=== PATIENT | female | born 1950 | race African-American/Black ===

== ENCOUNTER 2016-08-15 12:22 | Inpatient (IN) | payer MEDICARE, MEDICAID ==
[~2016-08-15] VITALS: Ht 167.6 cm; Wt 74.4 kg
[~2016-08-15 12:22] MED LIST: ACETAMINOPHEN-1 EAC1 ORAL; ADVAIR 100-501 EACH INH; ALBUTEROL2.5 MG/3 M INH; AMBIEN10 MG ORAL; ASACOL HD800 MG ORAL; ASPIR-LOW81 MG ORAL; ASPIRIN81 MG ORAL; ATIVAN1 MG PO; B-12500 MC1 PO; BENADRYL25 M3 PO; BUPROPION HCL100 MG ORAL; COLACE100 MG ORAL; CYMBALTA30 MG ORAL; CYMBALTA60 MG ORAL; DILAUDID4 MG ORAL; FLEET ENEMA133 ML RECTAL; FUROSEMIDE40 MG ORAL; IBUPROFEN IB200 MG PO; IBUPROFEN600 MG ORAL; INHALER; KEPPRA500 MG ORAL; LASIX20 M1 ORAL; LEVAQUIN250 M1 ORAL; LEVAQUIN500 MG ORAL; LEVETIRACETAM500 MG ORAL; LEVOFLOXAC500 MG/20 PO; MAGNESIUM CITR296 M1 PO; MELOXICAM15 MG PO; METRONIDAZOLE500 MG ORAL; MIDODRINE HCL5 MG ORAL; MIRALAX17 GM PO; MIRTAZAPINE15 M3 ORAL; MIRTAZAPINE15 MG ORAL; MOBIC7.5 MG ORAL; MORPHINE PUMP; MYLANTA II30 ML ORAL; NAPROXEN375 M2 ORAL; NEXIUM40 M1 PO; NORCO 10-325 T1 EACH PO; NORCO 10/3251 EA ORAL; OMEPRAZOLE20 M2 ORAL; ONDANSETRON ODT4 MG PO; OYSCO-500500 M1 PO; PENTASA500 MG ORAL; PHENERGAN25 M1 ORAL; PROTONIX40 MG ORAL; QUETIAPINE FUM200 MG ORAL; RANITIDINE HCL150 MG ORAL; REGLAN10 MG ORAL; REMERON15 MG ORAL; RESTORIL15 MG ORAL; RISPERDAL0.5 MG ORAL; SINGULAIR10 MG ORAL; TOPIRAMATE25 MG ORAL; TRAZODONE HCL100 MG ORAL; TUMS500 MG ORAL; TYLENOL650 MG/20. ORAL; VITAMIN C500 M1 ORAL; VITAMIN D400 INTLU ORAL; VITAMIN E400 INTLU ORAL; WELLBUTRIN SR100 MG ORAL; ZANTAC150 MG ORAL; ZOFRAN4 M3 ORAL; ZOFRAN4 M3 PO; [UNRECOGNIZED DRUG - OTHER] ORAL; [UNRECOGNIZED DRUG - REMARK]
[2016-08-15] MEDS ORDERED: Morphine Sulfate 4mg/ml Inj IVP ONE ×2 (13:00→14:45)
--- NOTE | 2016-08-15 13:15 | Emergency Room Report ---
History of Present Illness General Chief Complaint: Abdominal Pain Source: Patient Present Illness HPI Patient presents with complaints of diffuse abdominal pain Left lower along with left upper quadrant patient has complaints of diarrhea Along with vomiting as well Patient has had fairly extensive past medical history including small bowel [place] in with 2 different surgeries patient has also had Crohn's Given the increased diarrhea and the pain she was concerning came to the ER Patient reports being on Bactrim recently And has 2 days left denies any fevers or chills denies any chest pain or shortness of breath abdominal pain is 01/02 Patient's pain management doctor is Dr. reyes Allergies: Coded Allergies: No Known Allergies (Verified , 05/21/06) Patient History Past Medical History: see triage record Pertinent Family History: none Reviewed Nursing Documentation: PMH: Agreed, PSxH: Agreed Nursing Documentation-PMH Past Medical History: No History, Except For Hx Cardiac Problems: Yes - [place] 2015 Hx Hypertension: No Hx Pacemaker: No Hx Asthma: Yes Hx COPD: Yes Hx Diabetes: No Hx Cancer: No Hx Gastrointestinal Problems: Yes - Chrohns Hx Dialysis: No Hx Neurological Problems: Yes Hx Cerebrovascular Accident: Yes - 2004 Hx Seizures: Yes Hx Epilepsy: Yes Hx Vertigo: Yes Hx Dizziness: Yes Hx Syncope: Yes Hx Headaches: Yes Hx Weakness: Yes Hx Fatigue: Yes Review of Systems All Other Systems: negative except mentioned in HPI Physical Exam Vital Signs Date Time Temp Pulse Resp B/P Pulse Ox O2 Delivery O2 Flow Rate FiO2 08/15/16 12:26 99.3 77 14 86/50 98 Room Air Sp02 EP Interpretation: reviewed, normal General Appearance: well appearing, no apparent distress Head: normocephalic, atraumatic Eyes: bilateral eye EOMI, bilateral eye PERRL ENT: hearing grossly normal, normal pharynx, TMs + canals normal, uvula midline Neck: full range of motion, supple, no meningismus, no bony tend Respiratory: lungs clear, normal breath sounds, no rhonchi, no respiratory distress, no retraction, no accessory muscle use Cardiovascular #1: normal peripheral pulses, regular rate, rhythm, no edema, no gallop, no JVD, no murmur Gastrointestinal: normal bowel sounds, soft, no mass, no organomegaly, non- distended, no guarding, no hernia, no pulsatile mass, no rebound, tenderness - Diffusely, implant in the left lower abdomen, other - Evidence of multiple previous abdominal surgeries Genitourinary: no CVA tenderness Musculoskeletal: normal inspection Neurologic: oriented x3, responsive, rod greaser III-XII nml as tested, motor strength/ tone normal, sensory intact Psychiatric: mood/affect normal Skin: normal color, no rash, warm/dry, palpation normal Lymphatic: normal inspection, no adenopathy Medical Decision Making Diagnostic Impression: Primary Impression: Colitis Additional Impressions: Leukocytosis UTI (urinary tract infection) Abdominal pain Crohn's disease ER Course Given the patient's presentation multiple differentials are considered Patient's complex requiring blood work and imaging Patient's CAT scan shows some possible evidence of ileus no obvious instruction blood work does show bladder infection with elevated white blood cell count patient also has a history of Crohn's and could have signs of exacerbation At this time pain is improved and patient admitted for further inpatient care Labs Test 08/15/16 13:18 08/15/16 13:30 White Blood Count 17.1 K/UL (4.8-10.8) Red Blood Count 5.39 M/UL (4.20-5.40) Hemoglobin 14.3 G/DL (12.0-16.0) Hematocrit 47.6 % (37.0-47.0) Mean Corpuscular Volume 88 FL (80-99) Mean Corpuscular Hemoglobin 26.6 PG (27.0-31.0) Mean Corpuscular Hemoglobin Concent 30.0 G/DL (32.0-36.0) Red Cell Distribution Width 17.6 % (11.6-14.8) Platelet Count 372 K/UL (150-450) Mean Platelet Volume 6.5 FL (6.5-10.1) Neutrophils (%) (Auto) 78.0 % (45.0-75.0) Lymphocytes (%) (Auto) 14.0 % (20.0-45.0) Monocytes (%) (Auto) 6.1 % (1.0-10.0) Eosinophils (%) (Auto) 1.0 % (0.0-3.0) Basophils (%) (Auto) 0.9 % (0.0-2.0) Sodium Level 135 mEQ/L (135-145) Potassium Level 4.5 mEQ/L (3.4-4.9) Chloride Level 99 mEQ/L (98-107) Carbon Dioxide Level 15 mEQ/L (20-30) Anion Gap 21 (5-15) Blood Urea Nitrogen 17 mg/dL (7-23) Creatinine 1.5 mg/dL (0.5-0.9) Estimat Glomerular Filtration Rate 42.5 mL/min (>60) Glucose Level 111 mg/dL (74-106) Calcium Level 10.6 mg/dL (8.6-10.2) Total Bilirubin < 0.2 mg/dL (0.0-1.2) Aspartate Amino Transf (AST/SGOT) 19 U/L (5-40) Alanine Aminotransferase (ALT/SGPT) 9 U/L (3-33) Alkaline Phosphatase 105 U/L (35-104) Total Creatine Kinase 44 U/L (26-140) Creatine Kinase MB 2.9 ng/mL (< 3.8) Creatine Kinase MB Relative Index 6.5 Troponin I < 0.30 ng/mL (<=0.30) Total Protein 10.4 g/dL (6.6-8.7) Albumin 3.9 g/dL (3.5-5.2) Globulin 6.5 g/dL Albumin/Globulin Ratio 0.6 (1.0-2.7) Lipase 18 U/L (< 60) Prothrombin Time 11.2 SEC (9.30-11.50) Prothromb Time International Ratio 1.1 (0.9-1.1) Activated Partial Thromboplast Time 29 SEC (23-33) Urine Color Haylee Urine Appearance Slightly cloudy Urine pH 6 (4.5-8.0) Urine Specific [place] 1.020 (1.005-1.035) Urine Protein 2+ (NEGATIVE) Urine Glucose (UA) Negative (NEGATIVE) Urine Ketones Negative (NEGATIVE) Urine Occult Blood 3+ (NEGATIVE) Urine Nitrite Negative (NEGATIVE) Urine Bilirubin Negative (NEGATIVE) Urine Ictotest Negative Urine Urobilinogen Normal MG/DL (0.0-1.0) Urine Leukocyte Esterase 2+ (NEGATIVE) Urine RBC 5-10 /HPF (0 - 2) Urine WBC 10-15 /HPF (0 - 2) Urine Squamous Epithelial Cells Many /LPF (NONE/OCC) Urine Bacteria Many /HPF (NONE) Rhythm Strip Diag. Results EP Interpretation: yes Rate: 88 Rhythm: NSR, no PVC's, no ectopy Chest X-Ray Diagnostic Results EP Interpretation: Yes Findings: no consolidation, no effusion, no pneumothorax, other - Interstitial disease Number of Views: 1 CT/MRI/US Diagnostic Results CT/MRI/US Diagnostic Results : Impression CT abdomen pelvis:Impression: Postsurgical changes with mildly dilated fluid-filled small bowel but no abruption transition identified. Moderate fecal retention and gas in the remaining colon. Ileus could have this appearance with partial obstruction not completely excluded. Clinical correlation/followup recommended. Focal thickening versus underdistention within the distal stomach series 3 image 32. Further evaluation with upper GI or endoscopy recommended as indicated. Absent uterus. Postsurgical changes of anterior abdominal wall mesh. Interstitial opacities of the lung bases. Other findings as above. Last Vital Signs Date Time Temp Pulse Resp B/P Pulse Ox O2 Delivery O2 Flow Rate FiO2 08/15/16 12:26 99.3 77 14 86/50 98 Room Air Status: improved Disposition: ADMITTED INPATIENT Condition: Serious Referrals: BAYRON BENEDICT (PCP) CARLOS ALBERTO CARCAMO D.O. Aug 15, 2016 13:15
[2016-08-15 13:44] LABS: BASOPHILS % (AUTO) 0.9 % (0.0-2.0); MEAN CORPUSCULAR HEMOGLOBIN 26.6 PG (27.0-31.0); MEAN CORPUSCULAR VOLUME 88 FL (80-99); MEAN PLATELET VOLUME 6.5 FL (6.5-10.1); MONOCYTES % (AUTO) 6.1 % (1.0-10.0); PLATELET COUNT 372 K/UL (150-450); RED BLOOD COUNT 5.39 M/UL (4.20-5.40); RED CELL DISTRIBUTION WIDTH 17.6 % (11.6-14.8); WHITE BLOOD COUNT 17.1 K/UL (4.8-10.8)
[2016-08-15 13:47] VITALS: BP 110/61
[2016-08-15 13:51] LABS: APPEARANCE,URINE SLIGHTLY CLOUDY; KETONES,URINE NEGATIVE (NEGATIVE); LEUKOCYTE ESTERASE ,URINE 2+ (NEGATIVE); NITRITE,URINE NEGATIVE (NEGATIVE); PH,URINE 6 (4.5-8.0); PROTEIN,URINE 2+ (NEGATIVE); UROBILINOGEN,URINE NORMAL MG/DL (0.0-1.0)
[2016-08-15 13:54] LABS: SQUAMOUS EPITHELIAL CELL,UR MANY /LPF (NONE/OCC)
[2016-08-15 13:55] LABS: BACTERIA,URINE MANY /HPF; ICTOTEST NEGATIVE
[2016-08-15 14:06] LABS: TROPONIN I < 0.30 ng/mL (<=0.30)
[2016-08-15 14:06] LABS: INR 1.1 (0.9-1.1); PROTHROMBIN TIME 11.2 SEC (9.30-11.50)
[2016-08-15 14:09] LABS: ALANINE AMINOTRANSFERASE 9 U/L (3-33); ALBUMIN/GLOBULIN RATIO 0.6 (1.0-2.7); ANION GAP 21 (5-15); ASPARTATE AMINO TRANSFERASE 19 U/L (5-40); CALCIUM 10.6 mg/dL (8.6-10.2); CARBON DIOXIDE 15 mEQ/L (20-30); CHLORIDE 99 mEQ/L (98-107); CREATININE 1.5 mg/dL (0.5-0.9); GLOMERULAR FILTRATION RATE 42.5 mL/min (>60); HEMOLYSIS 49; LIPASE 18 U/L (< 60); POTASSIUM 4.5 mEQ/L (3.4-4.9); SODIUM 135 mEQ/L (135-145); TOTAL PROTEIN 10.4 g/dL (6.6-8.7)
[2016-08-15] MEDS ORDERED: metroNIDAZOLE 500mg 100 ML IVPB ONE (14:15)
[2016-08-15 14:19] LABS: CKMB 2.9 ng/mL (< 3.8)
[2016-08-15] MEDS ORDERED: Mylanta II UD 30ml ORAL PRN (14:45)
[2016-08-15] MEDS ORDERED: Nitroglycerin Subl 0.4mg tab (Bottle Of 25) SL PRN (14:45)
[2016-08-15] MEDS ORDERED: Miralax 17gm pkt ORAL PRN (14:45)
[2016-08-15 16:00] VITALS: BP 110/63
--- NOTE | 2016-08-15 16:29 | Infectious Diseases Prog Note ---
Assessment/Plan Problems: (1) UTI (urinary tract infection) Assessment & Plan: will continue zosyn for now and send urine culture (2) Sepsis Assessment & Plan: will send blood culture and continue zosyn for now (3) Abdominal pain Assessment & Plan: continue pain management as per primary, check CT abdomen (4) Crohn's disease Assessment & Plan: consult GI, continue meds (5) Nausea and vomiting Assessment & Plan: continue supportive care (6) Diarrhea Assessment & Plan: will send stool for C diff and culture Subjective Allergies: Coded Allergies: No Known Allergies (Verified , 05/21/06) Objective Vital Signs Last 24 Hour Vital Signs Date Time Temp Pulse Resp B/P Pulse Ox O2 Delivery O2 Flow Rate FiO2 08/15/16 15:15 99.3 95 16 110/61 98 Room Air 08/15/16 15:14 99.3 08/15/16 14:00 99.3 08/15/16 13:47 99.3 95 16 110/61 98 Room Air 08/15/16 12:26 99.3 77 14 86/50 98 Room Air Height (Feet): 5 Height (Inches): 6.00 Weight (Pounds): 164 Laboratory Tests Test 08/15/16 13:18 08/15/16 13:30 White Blood Count 17.1 K/UL (4.8-10.8) H Red Blood Count 5.39 M/UL (4.20-5.40) Hemoglobin 14.3 G/DL (12.0-16.0) Hematocrit 47.6 % (37.0-47.0) H Mean Corpuscular Volume 88 FL (80-99) Mean Corpuscular Hemoglobin 26.6 PG (27.0-31.0) L Mean Corpuscular Hemoglobin Concent 30.0 G/DL (32.0-36.0) L Red Cell Distribution Width 17.6 % (11.6-14.8) H Platelet Count 372 K/UL (150-450) Mean Platelet Volume 6.5 FL (6.5-10.1) Neutrophils (%) (Auto) 78.0 % (45.0-75.0) H Lymphocytes (%) (Auto) 14.0 % (20.0-45.0) L Monocytes (%) (Auto) 6.1 % (1.0-10.0) Eosinophils (%) (Auto) 1.0 % (0.0-3.0) Basophils (%) (Auto) 0.9 % (0.0-2.0) Sodium Level 135 mEQ/L (135-145) Potassium Level 4.5 mEQ/L (3.4-4.9) Chloride Level 99 mEQ/L (98-107) Carbon Dioxide Level 15 mEQ/L (20-30) L Anion Gap 21 (5-15) H Blood Urea Nitrogen 17 mg/dL (7-23) Creatinine 1.5 mg/dL (0.5-0.9) H Estimat Glomerular Filtration Rate 42.5 mL/min (>60) Glucose Level 111 mg/dL (74-106) H Calcium Level 10.6 mg/dL (8.6-10.2) H Total Bilirubin < 0.2 mg/dL (0.0-1.2) Aspartate Amino Transf (AST/SGOT) 19 U/L (5-40) Alanine Aminotransferase (ALT/SGPT) 9 U/L (3-33) Alkaline Phosphatase 105 U/L (35-104) H Total Creatine Kinase 44 U/L (26-140) Creatine Kinase MB 2.9 ng/mL (< 3.8) Creatine Kinase MB Relative Index 6.5 Troponin I < 0.30 ng/mL (<=0.30) Total Protein 10.4 g/dL (6.6-8.7) H Albumin 3.9 g/dL (3.5-5.2) Globulin 6.5 g/dL Albumin/Globulin Ratio 0.6 (1.0-2.7) L Lipase 18 U/L (< 60) Prothrombin Time 11.2 SEC (9.30-11.50) Prothromb Time International Ratio 1.1 (0.9-1.1) Activated Partial Thromboplast Time 29 SEC (23-33) Urine Color Haylee Urine Appearance Slightly cloudy Urine pH 6 (4.5-8.0) Urine Specific [place] 1.020 (1.005-1.035) Urine Protein 2+ (NEGATIVE) H Urine Glucose (UA) Negative (NEGATIVE) Urine Ketones Negative (NEGATIVE) Urine Occult Blood 3+ (NEGATIVE) H Urine Nitrite Negative (NEGATIVE) Urine Bilirubin Negative (NEGATIVE) Urine Ictotest Negative Urine Urobilinogen Normal MG/DL (0.0-1.0) Urine Leukocyte Esterase 2+ (NEGATIVE) H Urine RBC 5-10 /HPF (0 - 2) H Urine WBC 10-15 /HPF (0 - 2) H Urine Squamous Epithelial Cells Many /LPF (NONE/OCC) H Urine Bacteria Many /HPF (NONE) H Current Medications Medications (Trade) Dose Ordered Sig/Vaibhav Route PRN Reason Start Time Stop Time Status Last Admin Dose Admin Acetaminophen (Tylenol) 650 mg Q4H PRN ORAL fever 08/15/16 14:45 09/14/16 14:44 Al Hydroxide/Mg Hydroxide (Mylanta II) 30 ml Q6H PRN ORAL dyspepsia 08/15/16 14:45 09/14/16 14:44 Dextrose STAT PRN IV Hypoglycemia 08/15/16 14:45 09/14/16 14:44 Dextrose/Sodium Chloride (D5 0.45% NS) 1,000 ml @ 75 mls/hr [id number] IV 08/15/16 15:00 09/14/16 14:59 Diphenhydramine HCl (Benadryl) 25 mg Q6H PRN ORAL Itching/Pruritis 08/15/16 14:45 09/14/16 14:44 Duloxetine HCl (Cymbalta) 60 mg DAILY ORAL 08/16/16 09:00 09/15/16 08:59 Heparin Sodium (Porcine) (Heparin 5000 units/ml) 5,000 units EVERY 12 HOURS SUBQ 08/15/16 21:00 09/14/16 20:59 Levetiracetam (Keppra) 1,500 mg TWICE A DAY ORAL 08/15/16 18:00 09/14/16 17:59 Mirtazapine (Remeron) 30 mg BEDTIME ORAL 08/15/16 21:00 09/14/16 20:59 Morphine Sulfate (Morphine Sulfate) 2 mg Q4H PRN IVP severe Pain (Pain Scale 7-10) 08/15/16 14:45 08/22/16 14:44 Nitroglycerin (Ntg) 0.4 mg Q5M X 3 DOSES PRN SL Prn Chest Pain 08/15/16 14:45 09/14/16 14:44 Ondansetron HCl (Zofran) 4 mg Q6H PRN IVP Nausea & Vomiting 08/15/16 14:45 09/14/16 14:44 Piperacillin Sod/ Tazobactam Sod/ Sodium Chloride (Zosyn/Sodium Chloride) 110 ml @ 27.5 mls/hr EVERY 8 HOURS IVPB 08/15/16 22:00 08/22/16 21:59 Polyethylene Glycol (Miralax) 17 gm HSPRN PRN ORAL Constipation 08/15/16 14:45 09/14/16 14:44 Quetiapine Fumarate (SEROquel) 200 mg DAILY ORAL 08/16/16 09:00 09/15/16 08:59 Temazepam (Restoril) 15 mg HSPRN PRN ORAL Insomnia 08/15/16 14:45 08/22/16 14:44 Topiramate 25 mg 25 mg TWICE A DAY ORAL 08/15/16 18:00 09/14/16 17:59 Darrel Golden M.D. Aug 15, 2016 16:29
[2016-08-15] MEDS: Morphine Sulfate 2mg/ml Inj IVP PRN (16:54)
[2016-08-15] MEDS: D5 1/2NS 1,000 ML IV SCH (16:57)
--- NOTE | 2016-08-15 17:25 | Consultation ---
History of Present Illness General Date patient seen: Aug 15, 2016 Time patient seen: 17:30 Chief Complaint: Abdominal Pain Referring physician: Jayro Reason for Consultation: internal medicine, hx of asthma Present Illness HPI 65 y/old female presented to [facility] with complaints of abdominal pain for few days pain was getting progressively worse, not radiating, increased abdomen, diarrhea earlier today, foul smelling , no blood in Stool denies n/v/, denies fevers, chills patient with hx of Crohn disease in ED found that patient has leukocytosis, CT A/P completed, results pending patient was admitted for further management Allergies: Coded Allergies: No Known Allergies (Verified , 05/21/06) Medication History Scheduled Duloxetine Hcl* (Cymbalta*), 60 MG ORAL DAILY, (Reported) Levetiracetam* (Levetiracetam*), 1,500 MG ORAL TWICE A DAY, (Reported) Levofloxacin* (Levaquin*), 250 MG ORAL DAILY, (Reported) Mesalamine (Pentasa), 1,000 MG ORAL TID, (Reported) Metronidazole* (Flagyl*), 500 MG ORAL EVERY 8 HOURS, (Reported) Mirtazapine* (Mirtazapine*), 30 MG ORAL BEDTIME, (Reported) Quetiapine Fumarate* (Seroquel*), 200 MG ORAL DAILY, (Reported) Ranitidine Hcl* (Zantac*), 150 MG ORAL TWICE A DAY, (Reported) Topiramate* (Topamax*), 25 MG ORAL TWICE A DAY, (Reported) Scheduled PRN Albuterol Sulfate* (Albuterol Sulfate Hhn*), 3 ML INH Q4H PRN for Shortness of Breath, (Reported) Temazepam* (Restoril*), 15 MG ORAL BEDTIME PRN for Insomnia, (Reported) Miscellaneous Medications Diphenhydramine HCl (Benadryl), 25 MG PO, (Reported) Patient History History Provided By: Patient Healthcare decision maker Resuscitation status Advanced Directive on File Past Medical/Surgical History Past Medical/Surgical History: (1) Asthma (2) Acute encephalopathy (3) Hx SBO (4) Anemia (5) Crohns disease (6) Chronic pain syndrome (7) Abdominal pain (8) Seizure (9) Radiculopathy of lumbar region (10) Chronic pancreatitis Review of Systems Constitutional: Reports: weakness Eye: Reports: no symptoms ENT: Reports: no symptoms Respiratory: Reports: other - asthma, shortness of breath Cardiovascular: Reports: see HPI Gastrointestinal: Reports: see HPI Genitourinary: Reports: no symptoms Musculoskeletal: Reports: back pain, muscle stiffness Skin: Reports: no symptoms Psychiatric: Reports: depressed feelings Neurological: Reports: other - hx of CVA Endocrine: Reports: no symptoms Hematologic/Lymphatic: Reports: anemia Physical Exam General Appearance: WD/WN, no apparent distress, alert Lines, tubes and drains: peripheral HEENT: normocephalic, mucous membranes moist Neck: normal alignment, supple Respiratory/Chest: chest wall non-tender, lungs clear - with moderate air entry , no respiratory distress, no accessory muscle use Cardiovascular/Chest: normal peripheral pulses, normal rate, regular rhythm, no JVD Abdomen: normal bowel sounds, soft - mild diffused tenderness, no rebound, noguarding, + distended Extremities: normal range of motion Neurologic: no motor/sensory deficits, alert, oriented x 3 Musculoskeletal: normal muscle bulk Last 24 Hour Vital Signs Date Time Temp Pulse Resp B/P Pulse Ox O2 Delivery O2 Flow Rate FiO2 08/15/16 15:15 99.3 95 16 110/61 98 Room Air 08/15/16 15:14 99.3 08/15/16 14:00 99.3 08/15/16 13:47 99.3 95 16 110/61 98 Room Air 08/15/16 12:26 99.3 77 14 86/50 98 Room Air Laboratory Tests Test 08/15/16 13:18 08/15/16 13:30 White Blood Count 17.1 K/UL (4.8-10.8) H Red Blood Count 5.39 M/UL (4.20-5.40) Hemoglobin 14.3 G/DL (12.0-16.0) Hematocrit 47.6 % (37.0-47.0) H Mean Corpuscular Volume 88 FL (80-99) Mean Corpuscular Hemoglobin 26.6 PG (27.0-31.0) L Mean Corpuscular Hemoglobin Concent 30.0 G/DL (32.0-36.0) L Red Cell Distribution Width 17.6 % (11.6-14.8) H Platelet Count 372 K/UL (150-450) Mean Platelet Volume 6.5 FL (6.5-10.1) Neutrophils (%) (Auto) 78.0 % (45.0-75.0) H Lymphocytes (%) (Auto) 14.0 % (20.0-45.0) L Monocytes (%) (Auto) 6.1 % (1.0-10.0) Eosinophils (%) (Auto) 1.0 % (0.0-3.0) Basophils (%) (Auto) 0.9 % (0.0-2.0) Sodium Level 135 mEQ/L (135-145) Potassium Level 4.5 mEQ/L (3.4-4.9) Chloride Level 99 mEQ/L (98-107) Carbon Dioxide Level 15 mEQ/L (20-30) L Anion Gap 21 (5-15) H Blood Urea Nitrogen 17 mg/dL (7-23) Creatinine 1.5 mg/dL (0.5-0.9) H Estimat Glomerular Filtration Rate 42.5 mL/min (>60) Glucose Level 111 mg/dL (74-106) H Calcium Level 10.6 mg/dL (8.6-10.2) H Total Bilirubin < 0.2 mg/dL (0.0-1.2) Aspartate Amino Transf (AST/SGOT) 19 U/L (5-40) Alanine Aminotransferase (ALT/SGPT) 9 U/L (3-33) Alkaline Phosphatase 105 U/L (35-104) H Total Creatine Kinase 44 U/L (26-140) Creatine Kinase MB 2.9 ng/mL (< 3.8) Creatine Kinase MB Relative Index 6.5 Troponin I < 0.30 ng/mL (<=0.30) Total Protein 10.4 g/dL (6.6-8.7) H Albumin 3.9 g/dL (3.5-5.2) Globulin 6.5 g/dL Albumin/Globulin Ratio 0.6 (1.0-2.7) L Lipase 18 U/L (< 60) Prothrombin Time 11.2 SEC (9.30-11.50) Prothromb Time International Ratio 1.1 (0.9-1.1) Activated Partial Thromboplast Time 29 SEC (23-33) Urine Color Haylee Urine Appearance Slightly cloudy Urine pH 6 (4.5-8.0) Urine Specific [place] 1.020 (1.005-1.035) Urine Protein 2+ (NEGATIVE) H Urine Glucose (UA) Negative (NEGATIVE) Urine Ketones Negative (NEGATIVE) Urine Occult Blood 3+ (NEGATIVE) H Urine Nitrite Negative (NEGATIVE) Urine Bilirubin Negative (NEGATIVE) Urine Ictotest Negative Urine Urobilinogen Normal MG/DL (0.0-1.0) Urine Leukocyte Esterase 2+ (NEGATIVE) H Urine RBC 5-10 /HPF (0 - 2) H Urine WBC 10-15 /HPF (0 - 2) H Urine Squamous Epithelial Cells Many /LPF (NONE/OCC) H Urine Bacteria Many /HPF (NONE) H Height (Feet): 5 Height (Inches): 6.00 Weight (Pounds): 164 Medications Current Medications Medications (Trade) Dose Ordered Sig/Vaibhav Route PRN Reason Start Time Stop Time Status Last Admin Dose Admin Acetaminophen (Tylenol) 650 mg Q4H PRN ORAL fever 08/15/16 14:45 09/14/16 14:44 Al Hydroxide/Mg Hydroxide (Mylanta II) 30 ml Q6H PRN ORAL dyspepsia 08/15/16 14:45 09/14/16 14:44 Dextrose STAT PRN IV Hypoglycemia 08/15/16 14:45 09/14/16 14:44 Dextrose/Sodium Chloride (D5 0.45% NS) 1,000 ml @ 75 mls/hr [id number] IV 08/15/16 15:00 09/14/16 14:59 08/15/16 16:57 Diphenhydramine HCl (Benadryl) 25 mg Q6H PRN ORAL Itching/Pruritis 08/15/16 14:45 09/14/16 14:44 Duloxetine HCl (Cymbalta) 60 mg DAILY ORAL 08/16/16 09:00 09/15/16 08:59 Heparin Sodium (Porcine) (Heparin 5000 units/ml) 5,000 units EVERY 12 HOURS SUBQ 08/15/16 21:00 09/14/16 20:59 Levetiracetam (Keppra) 1,500 mg TWICE A DAY ORAL 08/15/16 18:00 09/14/16 17:59 Mirtazapine (Remeron) 30 mg BEDTIME ORAL 08/15/16 21:00 09/14/16 20:59 Morphine Sulfate (Morphine Sulfate) 2 mg Q4H PRN IVP severe Pain (Pain Scale 7-10) 08/15/16 14:45 08/22/16 14:44 08/15/16 16:54 Nitroglycerin (Ntg) 0.4 mg Q5M X 3 DOSES PRN SL Prn Chest Pain 08/15/16 14:45 09/14/16 14:44 Ondansetron HCl (Zofran) 4 mg Q6H PRN IVP Nausea & Vomiting 08/15/16 14:45 09/14/16 14:44 08/15/16 16:54 Piperacillin Sod/ Tazobactam Sod/ Sodium Chloride (Zosyn/Sodium Chloride) 110 ml @ 27.5 mls/hr EVERY 8 HOURS IVPB 08/15/16 22:00 08/22/16 21:59 Polyethylene Glycol (Miralax) 17 gm HSPRN PRN ORAL Constipation 08/15/16 14:45 09/14/16 14:44 Quetiapine Fumarate (SEROquel) 200 mg DAILY ORAL 08/16/16 09:00 09/15/16 08:59 Temazepam (Restoril) 15 mg HSPRN PRN ORAL Insomnia 08/15/16 14:45 08/22/16 14:44 Topiramate 25 mg 25 mg TWICE A DAY ORAL 08/15/16 18:00 09/14/16 17:59 Assessment/Plan Assessment/Plan ASSESSMENT sepsis leukocytosis colitis r/o C dif colitis hx of Crohn disease ? flare chronic pancreatics UTI asthma chronic pain syndrome seizure disorder hx of CVA PLAN OF CARE tele NPO IVF empiric abx fup with CT AP results stool C dif , fup with other cx GI consult as per PMD discretion check amylase, lipase solo management antiemetic prn seizure precautions, continue Keppra O2, HHN prn no evidence of asthma exacerbation DVT prophylaxis case discussed and evaluated by supervising physician Gwendolyn Herbert NP ([place]) Aug 15, 2016 17:25
[2016-08-15] MEDS ORDERED: DuoNeb 0.5-3(2.5)mg/3ml neb HHN PRN (18:30)
[2016-08-15] MEDS: Topiramate 25mg tab ORAL SCH (19:23)
[2016-08-15 20:00] VITALS: BP 119/64
[2016-08-15] MEDS: Heparin 5000 units/ml inj SUBQ SCH (21:00)
[2016-08-15] MEDS: Piperacillin/Tazobactam 3.375 GM in NS 110 ML IVPB SCH (22:08)
[2016-08-16] VITALS (7 sets, daily range): BP systolic 104–150; BP diastolic 66–92
[2016-08-16] MEDS: Morphine Sulfate 2mg/ml Inj IVP PRN ×2 (00:29→04:34)
[2016-08-16] MEDS: D5 1/2NS 1,000 ML IV SCH ×3 (04:20→21:21)
--- NOTE | 2016-08-16 04:57 | Consultation ---
DATE OF CONSULTATION: INFECTIOUS DISEASE CONSULTATION REQUESTING PHYSICIAN: Barber Dial D.O. REASON FOR CONSULTATION: Sepsis, UTI, and colitis. Recommendation for antibiotic therapy. HISTORY OF PRESENT ILLNESS: The patient is a 65-year-old female with complicated surgical history, who had Crohn's disease presented to [facility] with progressive diffuse abdominal pain. It was mainly localized in the left side of her abdomen 10/10, sharp, dull ache radiate to the back at sometimes. Abdominal pain was associated with diarrhea and nonbloody stool. She also had nausea and vomited several times. The patient has multiple surgeries on abdomen in the past. She also had a Crohn disease, unclear whether she is taking medications for it or not. The patient denied any fever or chills. No chest pain. No cough or shortness of breath. No recent travel or sick contacts. In the emergency room, she had fever with 99.3 degrees. Her white count was elevated at 17,000, so was consulted by the primary provider for antibiotics recommendation and further management. REVIEW OF SYSTEMS: A 14-point of system reviewed were all negative apart from the one I mentioned above in my History and Physical. PAST MEDICAL HISTORY: Significant for coronary artery disease status post ME, asthma, COPD, Crohn's disease, CVA, epilepsy, seizure disorder, syncope, headache, and fatigue. PAST SURGICAL HISTORY: She had extensive abdominal surgery in the past, unknown date. ALLERGIES: She has no known drug allergy. MEDICATIONS: She is on Zosyn. For the rest of the medications, please refer to the MAR. FAMILY HISTORY: Negative. Noncontributory. SOCIAL HISTORY: She is a house . Denied using any drugs, tobacco, or alcohol. PHYSICAL EXAMINATION: VITAL SIGNS: Temperature 99.3 degrees, pulse 95, respirations 16, blood pressure 110/61, and saturation 98% on room air. GENERAL: This is a middle-aged female, obese lying in bed, awake, alert, not in distress, complains of abdominal discomfort. HEENT: Normocephalic and atraumatic. Pupils both reactive to light equally. Moist oral mucosa. No exudate or thrush. NECK: Supple. No lymphadenopathy. CARDIOVASCULAR: Regular rate and rhythm. No murmur or gallop. LUNGS: Diminished breathing at the bases. ABDOMEN: Soft and distended. Tender diffusely. No rebound. No organomegaly. No ascites. EXTREMITIES: No edema. No cyanosis. LABORATORY AND DIAGNOSTIC DATA: Showed white count of 17.1, hemoglobin of 14.3, hematocrit of 47.6, and platelet count of 372,000. BUN 17 and creatinine of 1.5. AST of 19 and ALT of 9. Urinalysis showed +2 leukocyte esterase. WBC 10 to [address] and [address] bacteria. Abdominal CT scan results pending at this point. ASSESSMENT AND PLAN: 1. Sepsis suspect due to gastrointestinal source. The patient will be started on Zosyn. We will send the blood culture. 2. Abdominal pain, nausea, and vomiting suspect colitis. Continue antibiotics treatment. IV fluid for hydration. Consult GI. 3. Diarrhea. We will send stool for Clostridium difficile and culture. 4. Urinary tract infection. The patient is already on Zosyn. We will send urine for culture. Darrel Golden M.D. DR: Elli JOB#: [id number] CC:
[2016-08-16] MEDS: Piperacillin/Tazobactam 3.375 GM in NS 110 ML IVPB SCH ×3 (06:05→21:16)
[2016-08-16] MEDS: QUEtiapine 200mg tab ORAL SCH (09:05)
[2016-08-16] MEDS: DULoxetine 30mg cap ORAL SCH (09:05)
[2016-08-16] MEDS: Topiramate 25mg tab ORAL SCH ×2 (09:06→18:06)
[2016-08-16] MEDS: Heparin 5000 units/ml inj SUBQ SCH ×2 (09:10→21:18)
--- NOTE | 2016-08-16 09:58 | Diagnostic Imaging Report ---
Indication: Abdominal pain Technique: CT scan of the abdomen and pelvis utilizing automated exposure control with oral contrast. Axial, sagittal and coronal images were obtained. CT dose: Total DLP 878 mGycm; CTDI vol 17.7 mGy Comparison: 07/17/16 Findings: Evaluation of the solid organs is limited without intravenous contrast material. Interstitial opacities are noted in the lung bases. The adrenal glands, kidneys, spleen and pancreas are grossly unremarkable. No focal hepatic abnormalities are seen. No CT evident gallstones are identified. There is focal thickening versus underdistention of the stomach series 3 image 32. Postsurgical changes are demonstrated of the bowel. Fluid-filled mildly dilated small bowel loops are seen. Moderate stool and air are present in the remaining colon. Anterior abdominal hernia repair is present. Intrathecal pump and leads are present. Degenerative changes of the spine are noted. Atherosclerotic changes are seen. 2 tiny stable nodules are seen in the left upper quadrant each measuring 6 mm. Impression: Postsurgical changes with mildly dilated fluid-filled small bowel but no abruption transition identified. Moderate fecal retention and gas in the remaining colon. Ileus could have this appearance with partial obstruction not completely excluded. Clinical correlation/followup recommended. Focal thickening versus underdistention within the distal stomach series 3 image 32. Further evaluation with upper GI or endoscopy recommended as indicated. Absent uterus. Postsurgical changes of anterior abdominal wall mesh. Interstitial opacities of the lung bases. Other findings as above. The CT scanner at [facility] is accredited by the [employer] and the scans are performed using protocols designed to limit radiation exposure to as low as reasonably achievable to attain images of sufficient resolution adequate for diagnostic evaluation.
--- NOTE | 2016-08-16 10:07 | Diagnostic Imaging Report ---
Indication: Chest pain Technique: XRAY CHEST 1 V Comparison: 07/17/16 Findings: Cardiomediastinal silhouette is stable. There is grossly stable interstitial disease. No consolidation is identified. Osseous structures are stable. Atherosclerotic changes are seen. Impression: Grossly stable interstitial disease. Clinical correlation recommended.
[2016-08-16 12:12] LABS: BASOPHILS % (AUTO) 0.5 % (0.0-2.0); EOSINOPHILS % (AUTO) 0.1 % (0.0-3.0); LYMPHOCYTES % (AUTO) 12.1 % (20.0-45.0); MEAN CORPUSCULAR HEMOGLOBIN 25.7 PG (27.0-31.0); MEAN CORPUSCULAR HGB CONC 29.5 G/DL (32.0-36.0); MEAN CORPUSCULAR VOLUME 87 FL (80-99); MEAN PLATELET VOLUME 6.7 FL (6.5-10.1); MONOCYTES % (AUTO) 7.3 % (1.0-10.0); NEUTROPHILS % (AUTO) 80.1 % (45.0-75.0); PLATELET COUNT 390 K/UL (150-450); RED BLOOD COUNT 5.14 M/UL (4.20-5.40); RED CELL DISTRIBUTION WIDTH 16.7 % (11.6-14.8)
--- NOTE | 2016-08-16 12:14 | Pulmonology Progress Note ---
Assessment/Plan Assessment/Plan ASSESSMENT sepsis leukocytosis colitis r/o C dif colitis ileus possible partial SBO fecal impaction hx of Crohn disease ? flare chronic pancreatitis UTI asthma chronic pain syndrome seizure disorder hx of CVA PLAN OF CARE NPO IVF empiric abx CT AP with moderate fecal retention and gas in the remaining colon. Ileus could have this appearance with partial obstruction not completely excluded. stool C dif , fup with other cx GI consult as per PMD discretion check amylase, lipase - pending solo management antiemetic prn seizure precautions, continue Keppra O2, HHN prn CXR no acute cardiopulmonary disease clinically no evidence of asthma exacerbation DVT prophylaxis case discussed and evaluated by supervising physician CT AP - Subjective Allergies: Coded Allergies: No Known Allergies (Verified , 05/21/06) Subjective afebrile on RA, no sat of respiratory distress labs pending for this am still with abdominal pain, Objective Last 24 Hour Vital Signs Date Time Temp Pulse Resp B/P Pulse Ox O2 Delivery O2 Flow Rate FiO2 08/16/16 12:04 97.7 81 16 104/66 100 Room Air 08/16/16 09:36 98.2 08/16/16 08:32 98.2 92 16 140/92 93 Room Air 08/16/16 07:50 97 20 Room Air 21 08/16/16 04:00 98.2 102 22 134/77 98 Room Air 08/16/16 01:52 97.0 99 20 146/86 Room Air 08/16/16 00:00 92 08/16/16 00:00 98.6 92 18 150/77 96 Room Air 08/15/16 21:43 21 08/15/16 21:42 88 20 96 Room Air 21 08/15/16 21:42 88 20 Room Air 21 08/15/16 20:00 97.6 86 18 119/64 98 08/15/16 20:00 86 08/15/16 16:00 98.8 89 20 110/63 100 Room Air 08/15/16 16:00 92 08/15/16 15:15 99.3 95 16 110/61 98 Room Air 08/15/16 15:14 99.3 08/15/16 14:00 99.3 08/15/16 13:47 99.3 95 16 110/61 98 Room Air 08/15/16 12:26 99.3 77 14 86/50 98 Room Air Intake and Output 08/15/16 08/16/16 19:00 07:00 Intake Total 510 ml 772.5 ml Balance 510 ml 772.5 ml Intake Oral 360 ml 240 ml IV Total 150 ml 532.5 ml # Voids 1 2 Objective General Appearance: WD/WN, no apparent distress, alert Lines, tubes and drains: peripheral HEENT: normocephalic, mucous membranes moist Neck: normal alignment, supple Respiratory/Chest: chest wall non-tender, lungs clear - with moderate air entry , no respiratory distress, no accessory muscle use Cardiovascular/Chest: normal peripheral pulses, normal rate, regular rhythm, no JVD Abdomen: normal bowel sounds, soft - mild diffused tenderness, no rebound, noguarding, + distended Extremities: normal range of motion Neurologic: no motor/sensory deficits, alert, oriented x 3 Musculoskeletal: normal muscle bulk Microbiology Date/Time Source Procedure Growth Status 08/15/16 20:42 Stool Ordered 08/15/16 13:30 Urine,Clean Catch Urine Culture - Preliminary Resulted Laboratory Tests 08/15/16 13:18: White Blood Count 17.1H, Red Blood Count 5.39, Hemoglobin 14.3, Hematocrit 47.6H , Mean Corpuscular Volume 88, Mean Corpuscular Hemoglobin 26.6L, Mean Corpuscular Hemoglobin Concent 30.0L, Red Cell Distribution Width 17.6H, Platelet Count 372, Mean Platelet Volume 6.5, Neutrophils (%) (Auto) 78.0H, Lymphocytes (%) (Auto) 14.0L, Monocytes (%) (Auto) 6.1, Eosinophils (%) (Auto) 1.0, Basophils (%) (Auto) 0.9, Sodium Level 135, Potassium Level 4.5, Chloride Level 99, Carbon Dioxide Level 15L, Anion Gap 21H, Blood Urea Nitrogen 17, Creatinine 1.5H, Estimat Glomerular Filtration Rate 42.5, Glucose Level 111H, Calcium Level 10.6H, Total Bilirubin < 0.2, Aspartate Amino Transf (AST/SGOT) 19 , Alanine Aminotransferase (ALT/SGPT) 9, Alkaline Phosphatase 105H, Total Creatine Kinase 44, Creatine Kinase MB 2.9, Creatine Kinase MB Relative Index 6.5, Troponin I < 0.30, Total Protein 10.4H, Albumin 3.9, Globulin 6.5, Albumin/ Globulin Ratio 0.6L, Lipase 18 08/15/16 13:30: Prothrombin Time 11.2, Prothromb Time International Ratio 1.1, Activated Partial Thromboplast Time 29, Urine Color Haylee, Urine Appearance Slightly cloudy, Urine pH 6, Urine Specific [place] 1.020, Urine Protein 2+H, Urine Glucose (UA) Negative, Urine Ketones Negative, Urine Occult Blood 3+H, Urine Nitrite Negative, Urine Bilirubin Negative, Urine Ictotest Negative, Urine Urobilinogen Normal, Urine Leukocyte Esterase 2+H, Urine RBC 5-10H, Urine WBC 10 -15H, Urine Squamous Epithelial Cells ManyH, Urine Bacteria ManyH 08/16/16 11:20: White Blood Count [Pending], Red Blood Count [Pending], Hemoglobin [Pending], Hematocrit [Pending], Mean Corpuscular Volume [Pending], Mean Corpuscular Hemoglobin [Pending], Mean Corpuscular Hemoglobin Concent [Pending], Red Cell Distribution Width [Pending], Platelet Count [Pending], Mean Platelet Volume [ Pending], Neutrophils (%) (Auto) [Pending], Lymphocytes (%) (Auto) [Pending], Monocytes (%) (Auto) [Pending], Eosinophils (%) (Auto) [Pending], Basophils (%) (Auto) [Pending], Sodium Level [Pending], Potassium Level [Pending], Chloride Level [Pending], Carbon Dioxide Level [Pending], Blood Urea Nitrogen [Pending], Creatinine [Pending], Estimat Glomerular Filtration Rate [Pending], Glucose Level [Pending], Calcium Level [Pending], Total Bilirubin [Pending], Aspartate Amino Transf (AST/SGOT) [Pending], Alanine Aminotransferase (ALT/SGPT) [Pending] , Alkaline Phosphatase [Pending], Total Protein [Pending], Albumin [Pending], Globulin [Pending], Lipase [Pending], Activated Partial Thromboplast Time [ Pending], Amylase Level [Pending] Current Medications Medications (Trade) Dose Ordered Sig/Vaibhav Route PRN Reason Start Time Stop Time Status Last Admin Dose Admin Acetaminophen (Tylenol) 650 mg Q4H PRN ORAL fever 08/15/16 14:45 09/14/16 14:44 Al Hydroxide/Mg Hydroxide (Mylanta II) 30 ml Q6H PRN ORAL dyspepsia 08/15/16 14:45 09/14/16 14:44 Albuterol/ Ipratropium (DuoNeb 0.5-3(2.5)mg/3ml) 3 ml Q4HRT PRN HHN sob 08/15/16 18:30 08/20/16 18:29 08/15/16 21:40 Dextrose STAT PRN IV Hypoglycemia 08/15/16 14:45 09/14/16 14:44 Dextrose/Sodium Chloride (D5 0.45% NS) 1,000 ml @ 75 mls/hr [id number] IV 08/15/16 15:00 09/14/16 14:59 08/15/16 16:57 Diphenhydramine HCl (Benadryl) 25 mg Q6H PRN ORAL Itching/Pruritis 08/15/16 14:45 09/14/16 14:44 Duloxetine HCl (Cymbalta) 60 mg DAILY ORAL 08/16/16 09:00 09/15/16 08:59 08/16/16 09:05 Heparin Sodium (Porcine) (Heparin 5000 units/ml) 5,000 units EVERY 12 HOURS SUBQ 08/15/16 21:00 09/14/16 20:59 08/16/16 09:10 Hydromorphone HCl (Dilaudid) 2 mg Q4H PRN IVP For Pain 08/16/16 08:15 08/23/16 08:14 08/16/16 09:06 Levetiracetam (Keppra) 1,500 mg TWICE A DAY ORAL 08/15/16 18:00 09/14/16 17:59 08/16/16 09:05 Mesalamine (Asacol) 800 mg THREE TIMES A DAY ORAL 08/16/16 09:00 09/15/16 08:59 08/16/16 10:02 Mirtazapine (Remeron) 30 mg BEDTIME ORAL 08/15/16 21:00 09/14/16 20:59 08/15/16 21:00 Nitroglycerin (Ntg) 0.4 mg Q5M X 3 DOSES PRN SL Prn Chest Pain 08/15/16 14:45 09/14/16 14:44 Ondansetron HCl (Zofran) 4 mg Q6H PRN IVP Nausea & Vomiting 08/15/16 14:45 09/14/16 14:44 08/16/16 09:21 Piperacillin Sod/ Tazobactam Sod/ Sodium Chloride (Zosyn/Sodium Chloride) 110 ml @ 27.5 mls/hr EVERY 8 HOURS IVPB 08/15/16 22:00 08/22/16 21:59 08/16/16 06:05 Polyethylene Glycol (Miralax) 17 gm HSPRN PRN ORAL Constipation 08/15/16 14:45 09/14/16 14:44 Quetiapine Fumarate (SEROquel) 200 mg DAILY ORAL 08/16/16 09:00 09/15/16 08:59 08/16/16 09:05 Temazepam (Restoril) 15 mg HSPRN PRN ORAL Insomnia 08/15/16 14:45 08/22/16 14:44 08/15/16 22:10 Topiramate 25 mg 25 mg TWICE A DAY ORAL 08/15/16 18:00 09/14/16 17:59 08/16/16 09:06 [place] ([facility])Gwendolyn NP Aug 16, 2016 12:14
[2016-08-16 12:30] LABS: ALBUMIN/GLOBULIN RATIO 0.5 (1.0-2.7); CALCIUM 9.3 mg/dL (8.6-10.2); CREATININE 1.2 mg/dL (0.5-0.9); GLOMERULAR FILTRATION RATE 54.9 mL/min (>60); TOTAL PROTEIN 8.9 g/dL (6.6-8.7)
[2016-08-16] MEDS ORDERED: D5 1/2NS 1000ml IV ONE (12:38)
[2016-08-16] MEDS ORDERED: NS 275ml ONE (12:38)
[2016-08-16] MEDS ORDERED: Tubing IV Secondary IV ONE (12:38)
--- NOTE | 2016-08-16 16:14 | Infectious Diseases Prog Note ---
Assessment/Plan Problems: (1) UTI (urinary tract infection) Assessment & Plan: continue zosyn for now pending urine culture results (2) Sepsis Assessment & Plan: suspect GI VS source , await blood culture and urine culture results, continue zosyn for now (3) Abdominal pain Assessment & Plan: continue pain management as per primary, check CT abdomen (4) Crohn's disease Assessment & Plan: consult GI, continue meds (5) Nausea and vomiting Assessment & Plan: due to ileus , continue supportive care (6) Diarrhea Assessment & Plan: will send stool for C diff and culture Subjective Gastrointestinal/Abdominal: Reports: bloating, constipation, nausea, vomiting Allergies: Coded Allergies: No Known Allergies (Verified , 05/21/06) All Systems: reviewed and negative except above Objective Vital Signs Last 24 Hour Vital Signs Date Time Temp Pulse Resp B/P Pulse Ox O2 Delivery O2 Flow Rate FiO2 08/16/16 14:25 97.7 08/16/16 12:04 97.7 81 16 104/66 100 Room Air 08/16/16 08:32 98.2 92 16 140/92 93 Room Air 08/16/16 07:50 97 20 Room Air 21 08/16/16 04:00 98.2 102 22 134/77 98 Room Air 08/16/16 01:52 97.0 99 20 146/86 Room Air 08/16/16 00:00 92 08/16/16 00:00 98.6 92 18 150/77 96 Room Air 08/15/16 21:43 21 08/15/16 21:42 88 20 96 Room Air 21 08/15/16 21:42 88 20 Room Air 21 08/15/16 20:00 97.6 86 18 119/64 98 08/15/16 20:00 86 Height (Feet): 5 Height (Inches): 6.00 Weight (Pounds): 164 General Appearance: WD/WN, no acute distress HEENT: normocephalic, atraumatic, anicteric, mucous membranes moist Respiratory/Chest: chest wall non-tender, lungs clear, normal breath sounds, no respiratory distress, no accessory muscle use Cardiovascular: normal peripheral pulses, normal rate, regular rhythm, no gallop/murmur, no JVD Abdomen: no organomegaly, no mass, absent bowel sounds, distended, tender Extremities: no cyanosis, no clubbing Skin: no rash, no lesions, no ulcers Microbiology Date/Time Source Procedure Growth Status 08/15/16 20:42 Stool Ordered 08/15/16 13:30 Urine,Clean Catch Urine Culture - Preliminary Resulted Laboratory Tests Test 08/16/16 11:20 White Blood Count 12.0 K/UL (4.8-10.8) H Red Blood Count 5.14 M/UL (4.20-5.40) Hemoglobin 13.2 G/DL (12.0-16.0) Hematocrit 44.8 % (37.0-47.0) Mean Corpuscular Volume 87 FL (80-99) Mean Corpuscular Hemoglobin 25.7 PG (27.0-31.0) L Mean Corpuscular Hemoglobin Concent 29.5 G/DL (32.0-36.0) L Red Cell Distribution Width 16.7 % (11.6-14.8) H Platelet Count 390 K/UL (150-450) Mean Platelet Volume 6.7 FL (6.5-10.1) Neutrophils (%) (Auto) 80.1 % (45.0-75.0) H Lymphocytes (%) (Auto) 12.1 % (20.0-45.0) L Monocytes (%) (Auto) 7.3 % (1.0-10.0) Eosinophils (%) (Auto) 0.1 % (0.0-3.0) Basophils (%) (Auto) 0.5 % (0.0-2.0) Activated Partial Thromboplast Time 31 SEC (23-33) Sodium Level 134 mEQ/L (135-145) L Potassium Level 4.0 mEQ/L (3.4-4.9) Chloride Level 98 mEQ/L (98-107) Carbon Dioxide Level 18 mEQ/L (20-30) L Anion Gap 18 (5-15) H Blood Urea Nitrogen 23 mg/dL (7-23) Creatinine 1.2 mg/dL (0.5-0.9) H Estimat Glomerular Filtration Rate 54.9 mL/min (>60) Glucose Level 130 mg/dL (74-106) H Calcium Level 9.3 mg/dL (8.6-10.2) Total Bilirubin 0.3 mg/dL (0.0-1.2) Aspartate Amino Transf (AST/SGOT) 10 U/L (5-40) Alanine Aminotransferase (ALT/SGPT) 6 U/L (3-33) Alkaline Phosphatase 87 U/L (35-104) Total Protein 8.9 g/dL (6.6-8.7) H Albumin 3.1 g/dL (3.5-5.2) L Globulin 5.8 g/dL Albumin/Globulin Ratio 0.5 (1.0-2.7) L Amylase Level 88 U/L (10-110) Lipase 13 U/L (< 60) Current Medications Medications (Trade) Dose Ordered Sig/Vaibhav Route PRN Reason Start Time Stop Time Status Last Admin Dose Admin Acetaminophen (Tylenol) 650 mg Q4H PRN ORAL fever 08/15/16 14:45 09/14/16 14:44 Al Hydroxide/Mg Hydroxide (Mylanta II) 30 ml Q6H PRN ORAL dyspepsia 08/15/16 14:45 09/14/16 14:44 Albuterol/ Ipratropium (DuoNeb 0.5-3(2.5)mg/3ml) 3 ml Q4HRT PRN HHN sob 08/15/16 18:30 08/20/16 18:29 08/15/16 21:40 Dextrose STAT PRN IV Hypoglycemia 08/15/16 14:45 09/14/16 14:44 Dextrose/Sodium Chloride (D5 0.45% NS) 1,000 ml @ 75 mls/hr [id number] IV 08/15/16 15:00 09/14/16 14:59 08/15/16 16:57 Diphenhydramine HCl (Benadryl) 25 mg Q6H PRN ORAL Itching/Pruritis 08/15/16 14:45 09/14/16 14:44 Duloxetine HCl (Cymbalta) 60 mg DAILY ORAL 08/16/16 09:00 09/15/16 08:59 08/16/16 09:05 Heparin Sodium (Porcine) (Heparin 5000 units/ml) 5,000 units EVERY 12 HOURS SUBQ 08/15/16 21:00 09/14/16 20:59 08/16/16 09:10 Hydromorphone HCl (Dilaudid) 2 mg Q4H PRN IVP For Pain 08/16/16 08:15 08/23/16 08:14 08/16/16 13:55 Levetiracetam (Keppra) 1,500 mg TWICE A DAY ORAL 08/15/16 18:00 09/14/16 17:59 08/16/16 09:05 Mesalamine (Asacol) 800 mg THREE TIMES A DAY ORAL 08/16/16 09:00 09/15/16 08:59 08/16/16 14:03 Mirtazapine (Remeron) 30 mg BEDTIME ORAL 08/15/16 21:00 09/14/16 20:59 08/15/16 21:00 Nitroglycerin (Ntg) 0.4 mg Q5M X 3 DOSES PRN SL Prn Chest Pain 08/15/16 14:45 09/14/16 14:44 Ondansetron HCl (Zofran) 4 mg Q6H PRN IVP Nausea & Vomiting 08/15/16 14:45 09/14/16 14:44 08/16/16 09:21 Piperacillin Sod/ Tazobactam Sod/ Sodium Chloride (Zosyn/Sodium Chloride) 110 ml @ 27.5 mls/hr EVERY 8 HOURS IVPB 08/15/16 22:00 08/22/16 21:59 08/16/16 13:55 Polyethylene Glycol (Miralax) 17 gm HSPRN PRN ORAL Constipation 08/15/16 14:45 09/14/16 14:44 Quetiapine Fumarate (SEROquel) 200 mg DAILY ORAL 08/16/16 09:00 09/15/16 08:59 08/16/16 09:05 Temazepam (Restoril) 15 mg HSPRN PRN ORAL Insomnia 08/15/16 14:45 08/22/16 14:44 08/15/16 22:10 Topiramate 25 mg 25 mg TWICE A DAY ORAL 08/15/16 18:00 09/14/16 17:59 08/16/16 09:06 Darrel Golden M.D. Aug 16, 2016 16:14
[2016-08-17] VITALS: BP 132/88
--- NOTE | 2016-08-17 00:47 | Consultation ---
DATE OF CONSULTATION: 08/16/2016 CHIEF COMPLAINT: Abdominal pain. HISTORY OF PRESENT ILLNESS: This is a very pleasant unfortunate 65-year-old female, known to me from prior admission. The patient has history of Crohn disease. Last endoscopy and colonoscopy was done in April 2016. Endoscopy showed H. pylori negative gastritis and gastric ulceration. Colonoscopy showed evidence of recurrent Crohn's of the anastomosis. The patient was taking Pentasa and Entocort, but the patient now readmitted with complaint of abdominal pain and on admission, had a white count of 17,000. Of note, the patient also history of C. difficile colitis. PAST MEDICAL HISTORY: 1. History of Crohn's disease with multiple surgeries and last colonoscopy showing reactivation at the anastomosis in April 2016. 2. H. pylori negative gastritis and gastric ulceration. 3. History of C. difficile colitis. 4. History of chronic opiate dependency. 5. Appendectomy. 6. Multiple abdominal surgeries for Crohn's and only a 40 cm of the colon left. 7. Asthma/chronic obstructive pulmonary disease. 8. Coronary artery disease. 9. Seizure. PAST SURGICAL HISTORY: 1. Appendectomy. 2. Hysterectomy. 3. Multiple surgeries, four colonic surgeries for Crohn's. MEDICATION: Please see medication reconciliation list. ALLERGIES: No known drug allergy. SOCIAL HISTORY: The patient denies any tobacco, alcohol, or drug abuse. FAMILY HISTORY: Noncontributory. REVIEW OF SYSTEMS: A 10-point review of systems was performed and pertinent positives in history of present illness. PHYSICAL EXAMINATION: VITAL SIGNS: Temperature is 98.2 degrees, pulse is 102, respirations 22, and blood pressure is 134/77. HEENT: Normocephalic and atraumatic. Sclerae anicteric. NECK: Supple. No lymphadenopathy. CARDIOVASCULAR: Tachy. Regular rate. Plus S1 and S2. LUNGS: Decreased breath sounds bilaterally on supine exam. ABDOMEN: Distended. Tympanic to percussion. Bowel sounds are hypoactive. No rebound. No guarding. No peritoneal sign. EXTREMITIES: No cyanosis. No clubbing. No edema. LABORATORY DATA: White count is 17, hemoglobin 14, hematocrit 47, and platelet count is 372,000. Chem-7, sodium is 135, potassium 4.5, BUN is 17, and creatinine is 1.5. ASSESSMENT: This is a 65-year-old female with abdominal distention and abdominal pain. Differential diagnosis would be recurrent Clostridium difficile colitis with white count of 17,000 versus reactivation of the Crohn's. According to the patient, she was taking her medication Pentasa and Enticort. PLAN: Followup with a CT, which has already been ordered. The results are still pending. Send stool for C. difficile. If the stool for C. difficile come back negative, we will consider starting the patient on intravenous steroids and may be add 6-MP since the mesalamine is not working for her Crohn disease. We will follow with the C. diff and if it is negative, we will go ahead with our plan of steroids and 6-MP. Meanwhile, the patient to be hydrated with fluids, pain managed with Dilaudid, and labs to be followed closely. I want to thank, Dr. Barber Dial, for this kind referral. Skyler Gallegos M.D. DR: YUNG JOB#: [id number] CC: Barber Dial D.O.
--- NOTE | 2016-08-17 00:57 | History and Physical Report ---
DATE OF ADMISSION: 08/15/2016 TIME SEEN: 9 a.m. ATTENDING PHYSICIAN: Barber Dial D.O. CONSULTANTS: 1. Rob Wagner M.D. 2. Winston Malhotra M.D. 3. Skyler Gallegos M.D. 4. Darrel Golden M.D. CHIEF COMPLAINT: Abdominal pain, possible obstruction, UTI, and sepsis. BRIEF HISTORY: The patient is a 65-year-old female from home, who presented to [place] [facility] last night with increased abdominal pain and slight nausea, who was found to have abdominal pain, possible obstruction, ileus, and also UTI and sepsis, and admitted to medical floor for further treatment. Currently, calm, sleeping in bed, and not talking much. PAST MEDICAL HISTORY: Includes Crohn's, CHF, chronic pain, and COPD. PAST SURGICAL HISTORY: Abdominal surgery. MEDICATIONS: Include Cymbalta, Seroquel, Asacol, Dilaudid, Zosyn, Remeron, Keppra, Topamax, albuterol, Tylenol, MiraLax, Zofran, Restoril, Benadryl, Mylanta, and nitroglycerine. ALLERGIES: Denies. SOCIAL HISTORY: Positive for smoking. No alcohol. No intravenous drug abuse. FAMILY HISTORY: Noncontributory. REVIEW OF SYSTEMS: Unavailable. PHYSICAL EXAMINATION: GENERAL: The patient is calm in bed, oriented x3, and in no acute distress. VITAL SIGNS: Temperature is 98 degrees, pulse 92, respirations 16, and blood pressure 140/92. CARDIOVASCULAR: Distant without murmur. LUNGS: Poor exchange. ABDOMEN: Bowel sounds positive. Slightly distended and soft. No guarding. No rigidity. EXTREMITIES: No cyanosis, clubbing, or edema. NEUROLOGIC: Cranial nerves II through XII are grossly intact. Deep tendon reflexes 2+. Muscle strength 4/5. LABORATORY DATA: Lab studies show white count 17, otherwise CBC is normal. BMP shows CO2 of 15. BUN and creatinine 17 and 1.5. Glucose 111. Troponin less than 0.3. INR is 1.1. Urinalysis shows 3+ occult blood, 2+ protein, and 2+ leukocyte esterase. ASSESSMENT: 1. Abdominal pain, possible obstruction, ileus. 2. Urinary tract infection. 3. Sepsis. 4. Crohn's disease. 5. Congestive heart failure. 6. Chronic pain. 7. Chronic obstructive pulmonary disease. PLAN: Continue premedications, NPO, and IV fluids. Antibiotics per Infectious Disease. Pain control. O2 and pulmonary treatment. Dietary followup. OT, PT, and dietary evaluation. CBC and BMP in the morning. Dr. Wagner, Dr. Malhotra, Dr. Gallegos, and Dr. Golden consulted. Barber Dial D.O. DR: MARLENY JOB#: [id number] CC:
[2016-08-17 04:00] VITALS: BP 143/93
[2016-08-17] MEDS: Piperacillin/Tazobactam 3.375 GM in NS 110 ML IVPB SCH ×3 (05:43→21:43)
[2016-08-17 08:00] VITALS: BP 147/92
[2016-08-17 08:41] LABS: BASOPHILS % (AUTO) 0.9 % (0.0-2.0); EOSINOPHILS % (AUTO) 0.4 % (0.0-3.0); LYMPHOCYTES % (AUTO) 15.3 % (20.0-45.0); MEAN CORPUSCULAR HEMOGLOBIN 26.2 PG (27.0-31.0); MEAN CORPUSCULAR HGB CONC 29.6 G/DL (32.0-36.0); MEAN CORPUSCULAR VOLUME 89 FL (80-99); MEAN PLATELET VOLUME 6.5 FL (6.5-10.1); MONOCYTES % (AUTO) 9.5 % (1.0-10.0); PLATELET COUNT 375 K/UL (150-450); RED BLOOD COUNT 4.93 M/UL (4.20-5.40); RED CELL DISTRIBUTION WIDTH 16.7 % (11.6-14.8); WHITE BLOOD COUNT 11.7 K/UL (4.8-10.8)
[2016-08-17 09:05] LABS: ALANINE AMINOTRANSFERASE 6 U/L (3-33); ALBUMIN/GLOBULIN RATIO 0.7 (1.0-2.7); ANION GAP 15 (5-15); ASPARTATE AMINO TRANSFERASE 12 U/L (5-40); CALCIUM 9.4 mg/dL (8.6-10.2); CARBON DIOXIDE 21 mEQ/L (20-30); CHLORIDE 101 mEQ/L (98-107); GLOMERULAR FILTRATION RATE > 60 mL/min (>60); HEMOLYSIS 17; POTASSIUM 4.6 mEQ/L (3.4-4.9); SODIUM 137 mEQ/L (135-145); TOTAL PROTEIN 8.5 g/dL (6.6-8.7)
[2016-08-17] MEDS: DULoxetine 30mg cap ORAL SCH (10:03)
[2016-08-17] MEDS: Topiramate 25mg tab ORAL SCH ×2 (10:03→18:10)
[2016-08-17] MEDS: QUEtiapine 200mg tab ORAL SCH (10:05)
[2016-08-17] MEDS: Heparin 5000 units/ml inj SUBQ SCH ×2 (10:18→21:00)
[2016-08-17 12:00] VITALS: BP 136/88
--- NOTE | 2016-08-17 12:43 | GI Progress Note ---
Assessment/Plan Problems: (1) Abdominal pain ICD Codes: R10.9 - Unspecified abdominal pain SNOMED: 17225241 (2) Crohn's disease ICD Codes: K50.90 - Crohn's disease SNOMED: 08576830 (3) Colitis ICD Codes: K52.9 - Noninfective gastroenteritis and colitis, unspecified SNOMED: 821954522 (4) Abdominal pain (5) Anemia (6) Nausea and vomiting Status: stable, unchanged Status Narrative Discussed with Dr. Gallegos. Assessment/Plan adv CLD APCT >> fecal retention >> laxatives mesalamine for Crohns OB stool uncollected s/p EGD/colon 2016 fu cdiff pain mgmt fu labs Subjective Gastrointestinal/Abdominal: Reports: abdominal pain, constipated Objective Last 24 Hour Vital Signs Date Time Temp Pulse Resp B/P Pulse Ox O2 Delivery O2 Flow Rate FiO2 08/17/16 08:00 97.6 93 20 147/92 98 Room Air 08/17/16 07:30 86 20 Room Air 21 08/17/16 06:13 97.9 08/17/16 04:00 97.9 86 18 143/93 100 Room Air 08/17/16 00:00 97.9 96 18 132/88 100 Room Air 08/16/16 21:42 91 20 Room Air 21 08/16/16 20:00 97.9 101 18 136/71 94 Room Air 08/16/16 16:29 97.3 97 15 145/86 100 Room Air Intake and Output 08/16/16 08/17/16 19:00 07:00 Intake Total 445.0 ml 137.5 ml Output Total 400 ml 300 ml Balance 45.0 ml -162.5 ml Intake Oral 0 ml IV Total 445.0 ml 137.5 ml Output Urine Total 400 ml 300 ml Laboratory Tests Test 08/17/16 07:45 White Blood Count 11.7 K/UL (4.8-10.8) H Red Blood Count 4.93 M/UL (4.20-5.40) Hemoglobin 12.9 G/DL (12.0-16.0) Hematocrit 43.8 % (37.0-47.0) Mean Corpuscular Volume 89 FL (80-99) Mean Corpuscular Hemoglobin 26.2 PG (27.0-31.0) L Mean Corpuscular Hemoglobin Concent 29.6 G/DL (32.0-36.0) L Red Cell Distribution Width 16.7 % (11.6-14.8) H Platelet Count 375 K/UL (150-450) Mean Platelet Volume 6.5 FL (6.5-10.1) Neutrophils (%) (Auto) 74.0 % (45.0-75.0) Lymphocytes (%) (Auto) 15.3 % (20.0-45.0) L Monocytes (%) (Auto) 9.5 % (1.0-10.0) Eosinophils (%) (Auto) 0.4 % (0.0-3.0) Basophils (%) (Auto) 0.9 % (0.0-2.0) Sodium Level 137 mEQ/L (135-145) Potassium Level 4.6 mEQ/L (3.4-4.9) Chloride Level 101 mEQ/L (98-107) Carbon Dioxide Level 21 mEQ/L (20-30) Anion Gap 15 (5-15) Blood Urea Nitrogen 26 mg/dL (7-23) H Creatinine 1.0 mg/dL (0.5-0.9) H Estimat Glomerular Filtration Rate > 60 mL/min (>60) Glucose Level 114 mg/dL (74-106) H Calcium Level 9.4 mg/dL (8.6-10.2) Total Bilirubin 0.2 mg/dL (0.0-1.2) Aspartate Amino Transf (AST/SGOT) 12 U/L (5-40) Alanine Aminotransferase (ALT/SGPT) 6 U/L (3-33) Alkaline Phosphatase 93 U/L (35-104) Total Protein 8.5 g/dL (6.6-8.7) Albumin 3.6 g/dL (3.5-5.2) Globulin 4.9 g/dL Albumin/Globulin Ratio 0.7 (1.0-2.7) L Height (Feet): 5 Height (Inches): 6.00 Weight (Pounds): 164 General Appearance: no apparent distress, alert Cardiovascular: normal rate Respiratory/Chest: normal breath sounds, no respiratory distress Abdominal Exam: normal bowel sounds, soft, tender Tara Scott N.PDeng Aug 17, 2016 12:43
--- NOTE | 2016-08-17 13:38 | General Progress Note ---
Assessment/Plan Problem List: (1) Abdominal pain (2) Constipation (3) Opioid dependence ICD Codes: F11.20 - Opioid dependence SNOMED: 05180065 (4) Shortness of breath (5) Emphysema ICD Codes: J43.9 - Emphysema SNOMED: 11303041 (6) COPD exacerbation ICD Codes: J44.1 - COPD exacerbation SNOMED: 450946064 (7) CHF (congestive heart failure) ICD Codes: I50.9 - Heart failure, unspecified SNOMED: 16487946 (8) Nausea and vomiting (9) Crohns disease ICD Codes: K50.90 - Crohns disease SNOMED: 39704939 (10) UTI (urinary tract infection) ICD Codes: N39.0 - Urinary tract infection, site not specified SNOMED: 47063364 Status: stable, progressing Assessment/Plan ot pt diet gi f/u abx o2 pulm tx pain control cbc bmp am Subjective Constitutional: Reports: weakness Allergies: Coded Allergies: No Known Allergies (Verified , 05/21/06) All Systems: reviewed and negative except above Subjective sleepy calm Objective Last 24 Hour Vital Signs Date Time Temp Pulse Resp B/P Pulse Ox O2 Delivery O2 Flow Rate FiO2 08/17/16 10:34 97.9 08/17/16 08:00 97.6 93 20 147/92 98 Room Air 08/17/16 07:30 86 20 Room Air 08/17/16 04:00 97.9 86 18 143/93 100 Room Air 08/17/16 00:00 97.9 96 18 132/88 100 Room Air 08/16/16 21:42 91 20 Room Air 08/16/16 20:00 97.9 101 18 136/71 94 Room Air 08/16/16 16:29 97.3 97 15 145/86 100 Room Air Intake and Output 08/16/16 08/17/16 19:00 07:00 Intake Total 445.0 ml 137.5 ml Output Total 400 ml 300 ml Balance 45.0 ml -162.5 ml Intake Oral 0 ml IV Total 445.0 ml 137.5 ml Output Urine Total 400 ml 300 ml Laboratory Tests 08/17/16 07:45: White Blood Count 11.7H, Red Blood Count 4.93, Hemoglobin 12.9, Hematocrit 43.8 , Mean Corpuscular Volume 89, Mean Corpuscular Hemoglobin 26.2L, Mean Corpuscular Hemoglobin Concent 29.6L, Red Cell Distribution Width 16.7H, Platelet Count 375, Mean Platelet Volume 6.5, Neutrophils (%) (Auto) 74.0, Lymphocytes (%) (Auto) 15.3L, Monocytes (%) (Auto) 9.5, Eosinophils (%) (Auto) 0.4, Basophils (%) (Auto) 0.9, Sodium Level 137, Potassium Level 4.6, Chloride Level 101, Carbon Dioxide Level 21, Anion Gap 15, Blood Urea Nitrogen 26H, Creatinine 1.0H, Estimat Glomerular Filtration Rate > 60, Glucose Level 114H, Calcium Level 9.4, Total Bilirubin 0.2, Aspartate Amino Transf (AST/SGOT) 12, Alanine Aminotransferase (ALT/SGPT) 6, Alkaline Phosphatase 93, Total Protein 8.5, Albumin 3.6, Globulin 4.9, Albumin/Globulin Ratio 0.7L Height (Feet): 5 Height (Inches): 6.00 Weight (Pounds): 164 General Appearance: lethargic EENT: normal ENT inspection Neck: normal alignment Cardiovascular: normal peripheral pulses, normal rate, regular rhythm Respiratory/Chest: chest wall non-tender, lungs clear, normal breath sounds Abdomen: non tender, soft, hypoactive bowel sounds, distended Extremities: normal inspection Edema: no edema noted Arm (L), no edema noted Arm (R), no edema noted Leg (L), no edema noted Leg (R), no edema noted Pedal (L), no edema noted Pedal (R), no edema noted Generalized Neurologic: motor weakness Skin: normal pigmentation, warm/dry BAYRON BENEDICT Aug 17, 2016 13:38
[2016-08-17] MEDS: Docusate 100mg cap ORAL SCH ×2 (14:28→18:10)
[2016-08-17 16:00] VITALS: BP 116/92
--- NOTE | 2016-08-17 17:33 | Infectious Diseases Prog Note ---
Assessment/Plan Problems: (1) UTI (urinary tract infection) Assessment & Plan: continue zosyn for now , urine culture showed contaminant [place]. (2) Sepsis Assessment & Plan: suspect GI source , await blood culture and urine culture results, continue zosyn for now (3) Abdominal pain Assessment & Plan: continue pain management as per primary, check CT abdomen (4) Crohn's disease Assessment & Plan: consult GI, continue meds (5) Nausea and vomiting Assessment & Plan: due to ileus , continue supportive care (6) Diarrhea Assessment & Plan: will send stool for C diff and culture Subjective Gastrointestinal/Abdominal: Reports: bloating, constipation Neurologic: Reports: confusion, weakness Allergies: Coded Allergies: No Known Allergies (Verified , 05/21/06) All Systems: reviewed and negative except above Subjective she was lethargic, but arousal, respond to verbal commands, had no BM today or passed wilmer , no nausea or vomiting Objective Vital Signs Last 24 Hour Vital Signs Date Time Temp Pulse Resp B/P Pulse Ox O2 Delivery O2 Flow Rate FiO2 08/17/16 15:13 97.0 08/17/16 12:00 97.0 88 20 136/88 98 Room Air 08/17/16 08:00 97.6 93 20 147/92 98 Room Air 08/17/16 07:30 86 20 Room Air 21 08/17/16 04:00 97.9 86 18 143/93 100 Room Air 08/17/16 00:00 97.9 96 18 132/88 100 Room Air 08/16/16 21:42 91 20 Room Air 21 08/16/16 20:00 97.9 101 18 136/71 94 Room Air Height (Feet): 5 Height (Inches): 6.00 Weight (Pounds): 164 General Appearance: WD/WN, no acute distress HEENT: normocephalic, atraumatic, anicteric, mucous membranes moist Respiratory/Chest: chest wall non-tender, lungs clear, normal breath sounds, no respiratory distress, no accessory muscle use Cardiovascular: normal peripheral pulses, normal rate, regular rhythm, no gallop/murmur, no JVD Abdomen: no organomegaly, non distended, no mass, absent bowel sounds, distended, tender Extremities: no cyanosis, no clubbing Skin: no rash, no lesions, no ulcers Microbiology Date/Time Source Procedure Growth Status 08/15/16 20:20 Blood Blood Culture - Preliminary NO GROWTH AFTER 24 HOURS Resulted 08/15/16 20:10 Blood Blood Culture - Preliminary NO GROWTH AFTER 24 HOURS Resulted 08/15/16 20:42 Stool Ordered 08/15/16 13:30 Urine,Clean Catch Urine Culture - Final Mixed Urogenital Contaminants Complete Laboratory Tests Test 08/17/16 07:45 White Blood Count 11.7 K/UL (4.8-10.8) H Red Blood Count 4.93 M/UL (4.20-5.40) Hemoglobin 12.9 G/DL (12.0-16.0) Hematocrit 43.8 % (37.0-47.0) Mean Corpuscular Volume 89 FL (80-99) Mean Corpuscular Hemoglobin 26.2 PG (27.0-31.0) L Mean Corpuscular Hemoglobin Concent 29.6 G/DL (32.0-36.0) L Red Cell Distribution Width 16.7 % (11.6-14.8) H Platelet Count 375 K/UL (150-450) Mean Platelet Volume 6.5 FL (6.5-10.1) Neutrophils (%) (Auto) 74.0 % (45.0-75.0) Lymphocytes (%) (Auto) 15.3 % (20.0-45.0) L Monocytes (%) (Auto) 9.5 % (1.0-10.0) Eosinophils (%) (Auto) 0.4 % (0.0-3.0) Basophils (%) (Auto) 0.9 % (0.0-2.0) Sodium Level 137 mEQ/L (135-145) Potassium Level 4.6 mEQ/L (3.4-4.9) Chloride Level 101 mEQ/L (98-107) Carbon Dioxide Level 21 mEQ/L (20-30) Anion Gap 15 (5-15) Blood Urea Nitrogen 26 mg/dL (7-23) H Creatinine 1.0 mg/dL (0.5-0.9) H Estimat Glomerular Filtration Rate > 60 mL/min (>60) Glucose Level 114 mg/dL (74-106) H Calcium Level 9.4 mg/dL (8.6-10.2) Total Bilirubin 0.2 mg/dL (0.0-1.2) Aspartate Amino Transf (AST/SGOT) 12 U/L (5-40) Alanine Aminotransferase (ALT/SGPT) 6 U/L (3-33) Alkaline Phosphatase 93 U/L (35-104) Total Protein 8.5 g/dL (6.6-8.7) Albumin 3.6 g/dL (3.5-5.2) Globulin 4.9 g/dL Albumin/Globulin Ratio 0.7 (1.0-2.7) L Current Medications Medications (Trade) Dose Ordered Sig/Vaibhav Route PRN Reason Start Time Stop Time Status Last Admin Dose Admin Acetaminophen (Tylenol) 650 mg Q4H PRN ORAL fever 08/15/16 14:45 09/14/16 14:44 Al Hydroxide/Mg Hydroxide (Mylanta II) 30 ml Q6H PRN ORAL dyspepsia 08/15/16 14:45 09/14/16 14:44 Albuterol/ Ipratropium (DuoNeb 0.5-3(2.5)mg/3ml) 3 ml Q4HRT PRN HHN sob 08/15/16 18:30 08/20/16 18:29 08/15/16 21:40 Dextrose STAT PRN IV Hypoglycemia 08/15/16 14:45 09/14/16 14:44 Dextrose/Sodium Chloride (D5 0.45% NS) 1,000 ml @ 75 mls/hr [id number] IV 08/15/16 15:00 09/14/16 14:59 08/16/16 21:21 Diphenhydramine HCl (Benadryl) 25 mg Q6H PRN ORAL Itching/Pruritis 08/15/16 14:45 09/14/16 14:44 Docusate Sodium (Colace) 100 mg THREE TIMES A DAY ORAL 08/17/16 13:00 09/16/16 12:59 08/17/16 14:28 Duloxetine HCl (Cymbalta) 60 mg DAILY ORAL 08/16/16 09:00 09/15/16 08:59 08/17/16 10:03 Heparin Sodium (Porcine) (Heparin 5000 units/ml) 5,000 units EVERY 12 HOURS SUBQ 08/15/16 21:00 09/14/16 20:59 08/17/16 10:18 Hydromorphone HCl (Dilaudid) 2 mg Q4H PRN IVP For Pain 08/16/16 08:15 08/23/16 08:14 08/17/16 14:43 Levetiracetam (Keppra) 1,500 mg TWICE A DAY ORAL 08/15/16 18:00 09/14/16 17:59 08/17/16 10:03 Mesalamine (Asacol) 800 mg THREE TIMES A DAY ORAL 08/16/16 09:00 09/15/16 08:59 08/17/16 14:28 Mirtazapine (Remeron) 30 mg BEDTIME ORAL 08/15/16 21:00 09/14/16 20:59 08/16/16 21:15 Nitroglycerin (Ntg) 0.4 mg Q5M X 3 DOSES PRN SL Prn Chest Pain 08/15/16 14:45 09/14/16 14:44 Ondansetron HCl (Zofran) 4 mg Q6H PRN IVP Nausea & Vomiting 08/15/16 14:45 09/14/16 14:44 08/17/16 10:03 Piperacillin Sod/ Tazobactam Sod/ Sodium Chloride (Zosyn/Sodium Chloride) 110 ml @ 27.5 mls/hr EVERY 8 HOURS IVPB 08/15/16 22:00 08/22/16 21:59 08/17/16 14:29 Polyethylene Glycol (Miralax) 17 gm BEDTIME ORAL 08/17/16 21:00 09/16/16 20:59 Polyethylene Glycol (Miralax) 17 gm HSPRN PRN ORAL Constipation 08/15/16 14:45 09/14/16 14:44 Quetiapine Fumarate (SEROquel) 200 mg DAILY ORAL 08/16/16 09:00 09/15/16 08:59 08/17/16 10:05 Temazepam (Restoril) 15 mg HSPRN PRN ORAL Insomnia 08/15/16 14:45 08/22/16 14:44 08/15/16 22:10 Topiramate 25 mg 25 mg TWICE A DAY ORAL 08/15/16 18:00 09/14/16 17:59 08/17/16 10:03 Darrel Golden M.D. Aug 17, 2016 17:33
--- NOTE | 2016-08-17 18:38 | Pulmonology Progress Note ---
Assessment/Plan Problems: (1) Emphysema (2) Leukocytosis (3) Colitis (4) Acute encephalopathy (5) Hx SBO Assessment/Plan check cultures continue antibiotics symptomatic treatment IV hydration GI evaluation Subjective ROS Limited/Unobtainable: No Allergies: Coded Allergies: No Known Allergies (Verified , 05/21/06) Objective Last 24 Hour Vital Signs Date Time Temp Pulse Resp B/P Pulse Ox O2 Delivery O2 Flow Rate FiO2 08/17/16 16:00 98.6 88 20 116/92 100 Room Air 08/17/16 15:13 97.0 08/17/16 12:00 97.0 88 20 136/88 98 Room Air 08/17/16 08:00 97.6 93 20 147/92 98 Room Air 08/17/16 07:30 86 20 Room Air 21 08/17/16 04:00 97.9 86 18 143/93 100 Room Air 08/17/16 00:00 97.9 96 18 132/88 100 Room Air 08/16/16 21:42 91 20 Room Air 21 08/16/16 20:00 97.9 101 18 136/71 94 Room Air Intake and Output 08/16/16 08/17/16 19:00 07:00 Intake Total 520.0 ml 265.0 ml Output Total 400 ml 300 ml Balance 120.0 ml -35.0 ml Intake Oral 0 ml IV Total 520.0 ml 265.0 ml Output Urine Total 400 ml 300 ml General Appearance: WD/WN HEENT: normocephalic Respiratory/Chest: chest wall non-tender Cardiovascular: normal peripheral pulses, regular rhythm Abdomen: soft, non tender Genitourinary: normal external genitalia 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, abnormal gait Microbiology Date/Time Source Procedure Growth Status 08/15/16 20:20 Blood Blood Culture - Preliminary NO GROWTH AFTER 24 HOURS Resulted 08/15/16 20:10 Blood Blood Culture - Preliminary NO GROWTH AFTER 24 HOURS Resulted 08/15/16 20:42 Stool Ordered 08/15/16 13:30 Urine,Clean Catch Urine Culture - Final Mixed Urogenital Contaminants Complete Laboratory Tests 08/17/16 07:45: White Blood Count 11.7H, Red Blood Count 4.93, Hemoglobin 12.9, Hematocrit 43.8 , Mean Corpuscular Volume 89, Mean Corpuscular Hemoglobin 26.2L, Mean Corpuscular Hemoglobin Concent 29.6L, Red Cell Distribution Width 16.7H, Platelet Count 375, Mean Platelet Volume 6.5, Neutrophils (%) (Auto) 74.0, Lymphocytes (%) (Auto) 15.3L, Monocytes (%) (Auto) 9.5, Eosinophils (%) (Auto) 0.4, Basophils (%) (Auto) 0.9, Sodium Level 137, Potassium Level 4.6, Chloride Level 101, Carbon Dioxide Level 21, Anion Gap 15, Blood Urea Nitrogen 26H, Creatinine 1.0H, Estimat Glomerular Filtration Rate > 60, Glucose Level 114H, Calcium Level 9.4, Total Bilirubin 0.2, Aspartate Amino Transf (AST/SGOT) 12, Alanine Aminotransferase (ALT/SGPT) 6, Alkaline Phosphatase 93, Total Protein 8.5, Albumin 3.6, Globulin 4.9, Albumin/Globulin Ratio 0.7L Current Medications Medications (Trade) Dose Ordered Sig/Vaibhav Route PRN Reason Start Time Stop Time Status Last Admin Dose Admin Acetaminophen (Tylenol) 650 mg Q4H PRN ORAL fever 08/15/16 14:45 09/14/16 14:44 Al Hydroxide/Mg Hydroxide (Mylanta II) 30 ml Q6H PRN ORAL dyspepsia 08/15/16 14:45 09/14/16 14:44 Albuterol/ Ipratropium (DuoNeb 0.5-3(2.5)mg/3ml) 3 ml Q4HRT PRN HHN sob 08/15/16 18:30 08/20/16 18:29 08/15/16 21:40 Dextrose STAT PRN IV Hypoglycemia 08/15/16 14:45 09/14/16 14:44 Dextrose/Sodium Chloride (D5 0.45% NS) 1,000 ml @ 75 mls/hr [id number] IV 08/15/16 15:00 09/14/16 14:59 08/16/16 21:21 Diphenhydramine HCl (Benadryl) 25 mg Q6H PRN ORAL Itching/Pruritis 08/15/16 14:45 09/14/16 14:44 Docusate Sodium (Colace) 100 mg THREE TIMES A DAY ORAL 08/17/16 13:00 09/16/16 12:59 08/17/16 18:10 Duloxetine HCl (Cymbalta) 60 mg DAILY ORAL 08/16/16 09:00 09/15/16 08:59 08/17/16 10:03 Heparin Sodium (Porcine) (Heparin 5000 units/ml) 5,000 units EVERY 12 HOURS SUBQ 08/15/16 21:00 09/14/16 20:59 08/17/16 10:18 Hydromorphone HCl (Dilaudid) 2 mg Q4H PRN IVP For Pain 08/16/16 08:15 08/23/16 08:14 08/17/16 14:43 Levetiracetam (Keppra) 1,500 mg TWICE A DAY ORAL 08/15/16 18:00 09/14/16 17:59 08/17/16 18:10 Mesalamine (Asacol) 800 mg THREE TIMES A DAY ORAL 08/16/16 09:00 09/15/16 08:59 08/17/16 18:10 Mirtazapine (Remeron) 30 mg BEDTIME ORAL 08/15/16 21:00 09/14/16 20:59 08/16/16 21:15 Nitroglycerin (Ntg) 0.4 mg Q5M X 3 DOSES PRN SL Prn Chest Pain 08/15/16 14:45 09/14/16 14:44 Ondansetron HCl (Zofran) 4 mg Q6H PRN IVP Nausea & Vomiting 08/15/16 14:45 09/14/16 14:44 08/17/16 10:03 Piperacillin Sod/ Tazobactam Sod/ Sodium Chloride (Zosyn/Sodium Chloride) 110 ml @ 27.5 mls/hr EVERY 8 HOURS IVPB 08/15/16 22:00 08/22/16 21:59 08/17/16 14:29 Polyethylene Glycol (Miralax) 17 gm BEDTIME ORAL 08/17/16 21:00 09/16/16 20:59 Polyethylene Glycol (Miralax) 17 gm HSPRN PRN ORAL Constipation 08/15/16 14:45 09/14/16 14:44 Quetiapine Fumarate (SEROquel) 200 mg DAILY ORAL 08/16/16 09:00 09/15/16 08:59 08/17/16 10:05 Temazepam (Restoril) 15 mg HSPRN PRN ORAL Insomnia 08/15/16 14:45 08/22/16 14:44 08/15/16 22:10 Topiramate 25 mg 25 mg TWICE A DAY ORAL 08/15/16 18:00 09/14/16 17:59 08/17/16 18:10 DWAYNE SOTO Aug 17, 2016 18:38
--- NOTE | 2016-08-17 19:07 | Cardiology Report ---
APPROVED REPORT EKG Measurement Heart [id number] CO 158P49 [id number] Normal sinus rhythm Possible Left atrial enlargement Borderline ECG
[2016-08-17 20:00] VITALS: BP 133/86
--- NOTE | 2016-08-17 21:17 | Consultation ---
DATE OF CONSULTATION: 08/17/2016 CONSULTING PHYSICIAN: Dilshad Abel PsyD. TREATING ATTENDING PHYSICIAN: Barber Dial D.O. HISTORY OF PRESENT ILLNESS: The patient is a 65-year-old female. This patient was admitted to the hospital for hypertension and abdominal pain. The patient also has a history of mental illness including depression, anxiety, and possible bipolar disorder. This clinician assessed the patient. The patient states that she has been treated by the psychiatrist in the past for bipolar disorder. She does endorse feelings of anxiety and depression at this time stating that she has had these symptoms since about a year. Apparently, it has been exacerbated due to her current medical condition and medical stressors. The patient also reports difficulty sleeping and difficulty focusing and concentrating. She denies suicidal or homicidal thoughts of ideations. This clinician assessed the patient. the patient requires continuous hospitalization for stabilization of her symptoms. Encouraged the patient to go to psychotherapy and issues. PAST MEDICAL HISTORY: Leukocytosis and Crohn disease. ALLERGIES: The patient has no known drug allergies. SUBSTANCE USE HISTORY: The patient denies any history of alcohol use, illicit substance use, or smoking cigarettes. PSYCHIATRIC HISTORY: The patient states that she does have a history of bipolar disorder and has been treated with psychotropic medications in the past. SOCIAL HISTORY: The patient is a 65-year-old female, lives independently. Financially sustained through Medicare. MENTAL STATUS EXAMINATION: The patient is alert and oriented x3 to person, place, and time. Her mood is depressed. Affect is blunted. Thought process is disorganized. The patient has poor attention and concentration. Poor insight, judgment, and impulse control. This clinician assessed the patient and provided the patient with supportive psychotherapy, reality orientation, and coping skills, encouraging the patient to participate in treatment. Continue with medication management. DIAGNOSES: AXIS I: Bipolar 2 disorder, severe, recurrent. AXIS II: Deferred. AXIS III: Per History and Physical. AXIS IV: Problems with social environment. PLAN: This clinician assessed the patient, provided to the patient with reality orientation and supportive psychotherapy and coping skills. Encouraging the patient to participate in treatment, including medication management and behavioral management. This clinician has reviewed the patient's chart and discussed the treatment with nursing staff. Dilshad Abel PsyD. DR: MELINDA JOB#: [id number] CC:
[2016-08-17] MEDS: D5 1/2NS 1,000 ML IV SCH (21:44)
[2016-08-17] MEDS: Miralax 17gm pkt ORAL SCH (21:44)
--- NOTE | 2016-08-17 22:37 | Consultation ---
DATE OF CONSULTATION: HISTORY OF PRESENT ILLNESS: This is an initial psychiatric evaluation for Jayde Buchanan, 65-year-old female patient. she is in the hospital because of hypertension and abdominal pain. She has a history of ulcerative colitis and she also has a diagnosis of bipolar 2 disorder, currently on psychotropic medication regimen consisting of Topamax 25 mg twice a day and she is also on psychotropic med regimen consisting of Seroquel 200 mg daily medication without any side effects, but she would like to continue on Seroquel and Topamax she is on Remeron at a dose of 30 mg bedtime and she denies any current for depression continue on Cymbalta 60 mg daily and she denies any drug or alcohol use. SOCIAL HISTORY: She lives in a private residence. Financially supported by [employer] and Medicare. ALLERGIES: No known drug allergies. MEDICAL HISTORY: Include asthma, COPD, past procedure disorder per chart. PSYCHIATRIC HISTORY: Bipolar 2. MENTAL STATUS EXAMINATION: This is a 65-year-old female she does have psychomotor retardation. Mood is depressed. Affect guarded and restricted. Thought process is disorganized and illogical. No signs of any suicidal or homicidal thoughts. Insight and judgment is poor. PLAN: Continue on Cymbalta at 60 mg daily 30 mg at bedtime, Topamax 25 mg twice a day, Seroquel 200 mg daily August 16, 2016. Chart reviewed and discussed with the staff. Mena Goncalves M.D. DR: Claudia JOB#: [id number] CC:
[2016-08-18] VITALS: BP 136/74
--- NOTE | 2016-08-18 00:27 | Consultation ---
DATE OF CONSULTATION: 08/17/2016 PSYCHOTHERAPY CONSULTATION PROGRESS NOTE: CONSULTING PHYSICIAN: Dilshad Abel M.D. TREATING ATTENDING: Barber Dial D.O. HISTORY OF PRESENT ILLNESS: The patient is a 65-year-old female. This patient diagnosis bipolar disorder. The patient states that she confused and had some difficulty breathing. She has anxiety and depression, however, denies suicidal or homicidal thoughts of ideation auditory or visual hallucinations. She has been sleeping, lethargic, having poor energy .This clinician assessed the patient and provided with supportive psychotherapy, cognitive intervention and coping skills including interview. Continue with medication management and behavioral management. This clinician has reviewed the patient's chart. Discussed the treatment with nursing staff. Dilshad Abel PsyD. DR: Re JOB#: [id number] CC:
[2016-08-18 04:00] VITALS: BP 104/79
[2016-08-18] MEDS: Piperacillin/Tazobactam 3.375 GM in NS 110 ML IVPB SCH ×3 (05:48→22:38)
[2016-08-18 07:15] LABS: BASOPHILS % (AUTO) 0.8 % (0.0-2.0); EOSINOPHILS % (AUTO) 1.6 % (0.0-3.0); LYMPHOCYTES % (AUTO) 23.8 % (20.0-45.0); MEAN CORPUSCULAR HEMOGLOBIN 26.3 PG (27.0-31.0); MEAN CORPUSCULAR HGB CONC 30.1 G/DL (32.0-36.0); MEAN CORPUSCULAR VOLUME 87 FL (80-99); MEAN PLATELET VOLUME 6.4 FL (6.5-10.1); MONOCYTES % (AUTO) 12.8 % (1.0-10.0); NEUTROPHILS % (AUTO) 61.1 % (45.0-75.0); PLATELET COUNT 384 K/UL (150-450); RED BLOOD COUNT 4.58 M/UL (4.20-5.40); RED CELL DISTRIBUTION WIDTH 16.2 % (11.6-14.8); WHITE BLOOD COUNT 11.3 K/UL (4.8-10.8)
[2016-08-18 07:48] LABS: ALANINE AMINOTRANSFERASE 5 U/L (3-33); ALBUMIN/GLOBULIN RATIO 0.5 (1.0-2.7); ANION GAP 12 (5-15); ASPARTATE AMINO TRANSFERASE 9 U/L (5-40); CALCIUM 8.9 mg/dL (8.6-10.2); CARBON DIOXIDE 23 mEQ/L (20-30); CHLORIDE 103 mEQ/L (98-107); CREATININE 0.9 mg/dL (0.5-0.9); GLOMERULAR FILTRATION RATE > 60 mL/min (>60); HEMOLYSIS 0; POTASSIUM 3.6 mEQ/L (3.4-4.9); SODIUM 138 mEQ/L (135-145); TOTAL PROTEIN 8.1 g/dL (6.6-8.7)
[2016-08-18 08:00] VITALS: BP 149/79
[2016-08-18] MEDS: Docusate 100mg cap ORAL SCH ×3 (08:15→17:04)
[2016-08-18] MEDS: Topiramate 25mg tab ORAL SCH ×2 (08:15→17:04)
[2016-08-18] MEDS: DULoxetine 30mg cap ORAL SCH (08:15)
[2016-08-18] MEDS: Heparin 5000 units/ml inj SUBQ SCH ×2 (08:18→22:36)
[2016-08-18] MEDS: QUEtiapine 200mg tab ORAL SCH (08:28)
[2016-08-18] MEDS: D5 1/2NS 1,000 ML IV SCH ×2 (08:31→22:44)
[2016-08-18 12:00] VITALS: BP 109/70
--- NOTE | 2016-08-18 12:08 | Diagnostic Imaging Report ---
Indication: DYSPNEA Technique: One view of the chest Comparison: 08/15/2016 Findings: Bilateral diffuse interstitial disease, right greater than left, appears similar to the previous exam. No new consolidation. Heart size is normal. Pleural spaces are clear. Inspiration is less optimal on the current than on the prior exam Impression: Unchanged, over 3 days, findings as above.
--- NOTE | 2016-08-18 15:09 | General Progress Note ---
Assessment/Plan Problem List: (1) Abdominal pain (2) Constipation (3) Opioid dependence ICD Codes: F11.20 - Opioid dependence SNOMED: 39173737 (4) Shortness of breath (5) Emphysema ICD Codes: J43.9 - Emphysema SNOMED: 16628984 (6) COPD exacerbation ICD Codes: J44.1 - COPD exacerbation SNOMED: 656031281 (7) CHF (congestive heart failure) ICD Codes: I50.9 - Heart failure, unspecified SNOMED: 92383458 (8) Nausea and vomiting (9) Crohns disease ICD Codes: K50.90 - Crohns disease SNOMED: 39361486 (10) UTI (urinary tract infection) ICD Codes: N39.0 - Urinary tract infection, site not specified SNOMED: 37646425 Status: stable, progressing, tolerating diet Assessment/Plan ot pt diet gi f/u abx o2 pulm tx pain control cbc bmp am Subjective Constitutional: Reports: weakness Allergies: Coded Allergies: No Known Allergies (Verified , 05/21/06) All Systems: reviewed and negative except above Subjective sleepy calm Objective Last 24 Hour Vital Signs Date Time Temp Pulse Resp B/P Pulse Ox O2 Delivery O2 Flow Rate FiO2 08/18/16 12:00 97.8 91 18 109/70 97 Room Air 08/18/16 11:00 97.7 08/18/16 08:00 97.7 88 18 149/79 96 Room Air 08/18/16 04:00 97.5 91 20 104/79 95 Room Air 08/18/16 00:00 97.3 97 20 136/74 97 Room Air 08/17/16 20:00 98.6 99 20 133/86 91 Room Air 08/17/16 19:30 90 20 Room Air 21 08/17/16 16:00 98.6 88 20 116/92 100 Room Air Intake and Output 08/17/16 08/18/16 19:00 07:00 Intake Total 550.0 ml 505.0 ml Balance 550.0 ml 505.0 ml Intake Oral 120 ml IV Total 430.0 ml 505.0 ml # Voids 3 Laboratory Tests 08/18/16 06:15: White Blood Count 11.3H, Red Blood Count 4.58, Hemoglobin 12.0, Hematocrit 40.0 , Mean Corpuscular Volume 87, Mean Corpuscular Hemoglobin 26.3L, Mean Corpuscular Hemoglobin Concent 30.1L, Red Cell Distribution Width 16.2H, Platelet Count 384, Mean Platelet Volume 6.4L, Neutrophils (%) (Auto) 61.1, Lymphocytes (%) (Auto) 23.8, Monocytes (%) (Auto) 12.8H, Eosinophils (%) (Auto) 1.6, Basophils (%) (Auto) 0.8, Sodium Level 138, Potassium Level 3.6, Chloride Level 103, Carbon Dioxide Level 23, Anion Gap 12, Blood Urea Nitrogen 21, Creatinine 0.9, Estimat Glomerular Filtration Rate > 60, Glucose Level 97, Calcium Level 8.9, Total Bilirubin 0.2, Aspartate Amino Transf (AST/SGOT) 9, Alanine Aminotransferase (ALT/SGPT) 5, Alkaline Phosphatase 74, Total Protein 8.1, Albumin 3.0L, Globulin 5.1, Albumin/Globulin Ratio 0.5L Height (Feet): 5 Height (Inches): 6.00 Weight (Pounds): 164 General Appearance: lethargic EENT: normal ENT inspection Neck: normal alignment Cardiovascular: normal peripheral pulses, normal rate, regular rhythm Respiratory/Chest: chest wall non-tender, lungs clear, normal breath sounds Abdomen: soft, hypoactive bowel sounds, distended Extremities: normal inspection Edema: no edema noted Arm (L), no edema noted Arm (R), no edema noted Leg (L), no edema noted Leg (R), no edema noted Pedal (L), no edema noted Pedal (R), no edema noted Generalized Neurologic: responsive, motor weakness Skin: normal pigmentation, warm/dry BYARON BENEDICT Aug 18, 2016 15:09
--- NOTE | 2016-08-18 15:43 | GI Progress Note ---
Assessment/Plan Problems: (1) Abdominal pain ICD Codes: R10.9 - Unspecified abdominal pain SNOMED: 97473757 (2) Crohn's disease ICD Codes: K50.90 - Crohn's disease SNOMED: 46183448 (3) Colitis ICD Codes: K52.9 - Noninfective gastroenteritis and colitis, unspecified SNOMED: 483208508 (4) Abdominal pain (5) Anemia (6) Nausea and vomiting (7) Constipation Status: unchanged Status Narrative Discussed with Dr. Gallegos. Assessment/Plan APCT >> fecal retention mesalamine for Crohns no BM reported s/p EGD/colon 2016 non functional implanted morphine pump adv FLD Rx trial of Movantik for OIC laxatives OB stool uncollected pain mgmt fu labs Subjective Gastrointestinal/Abdominal: Reports: abdomen distended, constipated Objective Last 24 Hour Vital Signs Date Time Temp Pulse Resp B/P Pulse Ox O2 Delivery O2 Flow Rate FiO2 08/18/16 12:00 97.8 91 18 109/70 97 Room Air 08/18/16 11:00 97.7 08/18/16 08:00 97.7 88 18 149/79 96 Room Air 08/18/16 04:00 97.5 91 20 104/79 95 Room Air 08/18/16 00:00 97.3 97 20 136/74 97 Room Air 08/17/16 20:00 98.6 99 20 133/86 91 Room Air 08/17/16 19:30 90 20 Room Air 21 08/17/16 16:00 98.6 88 20 116/92 100 Room Air Intake and Output 08/17/16 08/18/16 19:00 07:00 Intake Total 550.0 ml 505.0 ml Balance 550.0 ml 505.0 ml Intake Oral 120 ml IV Total 430.0 ml 505.0 ml # Voids 3 Laboratory Tests Test 08/18/16 06:15 White Blood Count 11.3 K/UL (4.8-10.8) H Red Blood Count 4.58 M/UL (4.20-5.40) Hemoglobin 12.0 G/DL (12.0-16.0) Hematocrit 40.0 % (37.0-47.0) Mean Corpuscular Volume 87 FL (80-99) Mean Corpuscular Hemoglobin 26.3 PG (27.0-31.0) L Mean Corpuscular Hemoglobin Concent 30.1 G/DL (32.0-36.0) L Red Cell Distribution Width 16.2 % (11.6-14.8) H Platelet Count 384 K/UL (150-450) Mean Platelet Volume 6.4 FL (6.5-10.1) L Neutrophils (%) (Auto) 61.1 % (45.0-75.0) Lymphocytes (%) (Auto) 23.8 % (20.0-45.0) Monocytes (%) (Auto) 12.8 % (1.0-10.0) H Eosinophils (%) (Auto) 1.6 % (0.0-3.0) Basophils (%) (Auto) 0.8 % (0.0-2.0) Sodium Level 138 mEQ/L (135-145) Potassium Level 3.6 mEQ/L (3.4-4.9) Chloride Level 103 mEQ/L (98-107) Carbon Dioxide Level 23 mEQ/L (20-30) Anion Gap 12 (5-15) Blood Urea Nitrogen 21 mg/dL (7-23) Creatinine 0.9 mg/dL (0.5-0.9) Estimat Glomerular Filtration Rate > 60 mL/min (>60) Glucose Level 97 mg/dL (74-106) Calcium Level 8.9 mg/dL (8.6-10.2) Total Bilirubin 0.2 mg/dL (0.0-1.2) Aspartate Amino Transf (AST/SGOT) 9 U/L (5-40) Alanine Aminotransferase (ALT/SGPT) 5 U/L (3-33) Alkaline Phosphatase 74 U/L (35-104) Total Protein 8.1 g/dL (6.6-8.7) Albumin 3.0 g/dL (3.5-5.2) L Globulin 5.1 g/dL Albumin/Globulin Ratio 0.5 (1.0-2.7) L Height (Feet): 5 Height (Inches): 6.00 Weight (Pounds): 164 General Appearance: no apparent distress, alert Cardiovascular: normal rate Respiratory/Chest: normal breath sounds, no respiratory distress Abdominal Exam: normal bowel sounds, non tender, soft, distended Objective No BM reported. Tara Scott N.P. Aug 18, 2016 15:43
[2016-08-18 16:00] VITALS: BP 140/80
[2016-08-18] MEDS: MOVANTIK 25 MG ORAL SCH (16:42)
--- NOTE | 2016-08-18 17:19 | Infectious Diseases Prog Note ---
Assessment/Plan Problems: (1) UTI (urinary tract infection) Assessment & Plan: continue zosyn for now , urine culture showed contaminant [place]. (2) Sepsis Assessment & Plan: suspect GI source , await blood culture and urine culture results, continue zosyn for now (3) Abdominal pain Assessment & Plan: continue pain management as per primary, check CT abdomen (4) Crohn's disease Assessment & Plan: consult GI, continue meds (5) Nausea and vomiting Assessment & Plan: due to ileus , continue supportive care Subjective Constitutional: Reports: anorexia, fatigue Gastrointestinal/Abdominal: Reports: bloating, constipation Allergies: Coded Allergies: No Known Allergies (Verified , 05/21/06) All Systems: reviewed and negative except above Subjective she was more awake and alert today , had no BM or passed wilmer , no nausea or vomiting Objective Vital Signs Last 24 Hour Vital Signs Date Time Temp Pulse Resp B/P Pulse Ox O2 Delivery O2 Flow Rate FiO2 08/18/16 16:00 98.1 94 20 140/80 96 Room Air 08/18/16 15:48 98.1 08/18/16 12:00 97.8 91 18 109/70 97 Room Air 08/18/16 08:00 97.7 88 18 149/79 96 Room Air 08/18/16 04:00 97.5 91 20 104/79 95 Room Air 08/18/16 00:00 97.3 97 20 136/74 97 Room Air 08/17/16 20:00 98.6 99 20 133/86 91 Room Air 08/17/16 19:30 90 20 Room Air 21 Height (Feet): 5 Height (Inches): 6.00 Weight (Pounds): 164 General Appearance: WD/WN, no acute distress HEENT: normocephalic, atraumatic, anicteric, mucous membranes moist, PERRL Respiratory/Chest: chest wall non-tender, lungs clear, normal breath sounds, no respiratory distress, no accessory muscle use Cardiovascular: normal peripheral pulses, normal rate, regular rhythm, no gallop/murmur Abdomen: no organomegaly, no mass, absent bowel sounds, distended, tender Extremities: no cyanosis, no clubbing Skin: no rash, no lesions, no ulcers Microbiology Date/Time Source Procedure Growth Status 08/15/16 20:20 Blood Blood Culture - Preliminary NO GROWTH AFTER 48 HOURS Resulted 08/15/16 20:10 Blood Blood Culture - Preliminary NO GROWTH AFTER 48 HOURS Resulted Laboratory Tests Test 08/18/16 06:15 White Blood Count 11.3 K/UL (4.8-10.8) H Red Blood Count 4.58 M/UL (4.20-5.40) Hemoglobin 12.0 G/DL (12.0-16.0) Hematocrit 40.0 % (37.0-47.0) Mean Corpuscular Volume 87 FL (80-99) Mean Corpuscular Hemoglobin 26.3 PG (27.0-31.0) L Mean Corpuscular Hemoglobin Concent 30.1 G/DL (32.0-36.0) L Red Cell Distribution Width 16.2 % (11.6-14.8) H Platelet Count 384 K/UL (150-450) Mean Platelet Volume 6.4 FL (6.5-10.1) L Neutrophils (%) (Auto) 61.1 % (45.0-75.0) Lymphocytes (%) (Auto) 23.8 % (20.0-45.0) Monocytes (%) (Auto) 12.8 % (1.0-10.0) H Eosinophils (%) (Auto) 1.6 % (0.0-3.0) Basophils (%) (Auto) 0.8 % (0.0-2.0) Sodium Level 138 mEQ/L (135-145) Potassium Level 3.6 mEQ/L (3.4-4.9) Chloride Level 103 mEQ/L (98-107) Carbon Dioxide Level 23 mEQ/L (20-30) Anion Gap 12 (5-15) Blood Urea Nitrogen 21 mg/dL (7-23) Creatinine 0.9 mg/dL (0.5-0.9) Estimat Glomerular Filtration Rate > 60 mL/min (>60) Glucose Level 97 mg/dL (74-106) Calcium Level 8.9 mg/dL (8.6-10.2) Total Bilirubin 0.2 mg/dL (0.0-1.2) Aspartate Amino Transf (AST/SGOT) 9 U/L (5-40) Alanine Aminotransferase (ALT/SGPT) 5 U/L (3-33) Alkaline Phosphatase 74 U/L (35-104) Total Protein 8.1 g/dL (6.6-8.7) Albumin 3.0 g/dL (3.5-5.2) L Globulin 5.1 g/dL Albumin/Globulin Ratio 0.5 (1.0-2.7) L Current Medications Medications (Trade) Dose Ordered Sig/Vaibhav Route PRN Reason Start Time Stop Time Status Last Admin Dose Admin Acetaminophen (Tylenol) 650 mg Q4H PRN ORAL fever 08/15/16 14:45 09/14/16 14:44 Al Hydroxide/Mg Hydroxide (Mylanta II) 30 ml Q6H PRN ORAL dyspepsia 08/15/16 14:45 09/14/16 14:44 Albuterol/ Ipratropium (DuoNeb 0.5-3(2.5)mg/3ml) 3 ml Q4HRT PRN HHN sob 08/15/16 18:30 08/20/16 18:29 08/15/16 21:40 Dextrose STAT PRN IV Hypoglycemia 08/15/16 14:45 09/14/16 14:44 Dextrose/Sodium Chloride (D5 0.45% NS) 1,000 ml @ 75 mls/hr [id number] IV 08/15/16 15:00 09/14/16 14:59 08/17/16 21:44 Diphenhydramine HCl (Benadryl) 25 mg Q6H PRN ORAL Itching/Pruritis 08/15/16 14:45 09/14/16 14:44 Docusate Sodium (Colace) 100 mg THREE TIMES A DAY ORAL 08/17/16 13:00 09/16/16 12:59 08/18/16 17:04 Duloxetine HCl (Cymbalta) 60 mg DAILY ORAL 08/16/16 09:00 09/15/16 08:59 08/18/16 08:15 Heparin Sodium (Porcine) (Heparin 5000 units/ml) 5,000 units EVERY 12 HOURS SUBQ 08/15/16 21:00 09/14/16 20:59 08/18/16 08:18 Hydromorphone HCl (Dilaudid) 2 mg Q4H PRN IVP For Pain 08/16/16 08:15 08/23/16 08:14 08/18/16 15:18 Levetiracetam (Keppra) 1,500 mg TWICE A DAY ORAL 08/15/16 18:00 09/14/16 17:59 08/18/16 17:04 Mesalamine (Asacol) 800 mg THREE TIMES A DAY ORAL 08/16/16 09:00 09/15/16 08:59 08/18/16 17:04 Mirtazapine (Remeron) 30 mg BEDTIME ORAL 08/15/16 21:00 09/14/16 20:59 08/17/16 21:43 Nitroglycerin (Ntg) 0.4 mg Q5M X 3 DOSES PRN SL Prn Chest Pain 08/15/16 14:45 09/14/16 14:44 Ondansetron HCl (Zofran) 4 mg Q6H PRN IVP Nausea & Vomiting 08/15/16 14:45 09/14/16 14:44 08/18/16 10:59 Patient Own Medication (Patient's Own Med) 1 ea DAILY@1630 ORAL 08/18/16 16:30 08/20/16 16:31 08/18/16 16:42 Piperacillin Sod/ Tazobactam Sod/ Sodium Chloride (Zosyn/Sodium Chloride) 110 ml @ 27.5 mls/hr EVERY 8 HOURS IVPB 08/15/16 22:00 08/22/16 21:59 08/18/16 15:17 Polyethylene Glycol (Miralax) 17 gm BEDTIME ORAL 08/17/16 21:00 09/16/16 20:59 08/17/16 21:44 Polyethylene Glycol (Miralax) 17 gm HSPRN PRN ORAL Constipation 08/15/16 14:45 09/14/16 14:44 Quetiapine Fumarate (SEROquel) 200 mg DAILY ORAL 08/16/16 09:00 09/15/16 08:59 08/18/16 08:28 Temazepam (Restoril) 15 mg HSPRN PRN ORAL Insomnia 08/15/16 14:45 08/22/16 14:44 08/15/16 22:10 Topiramate 25 mg 25 mg TWICE A DAY ORAL 08/15/16 18:00 09/14/16 17:59 08/18/16 17:04 Darrel Golden M.D. Aug 18, 2016 17:19
[2016-08-18 19:00] VITALS: BP 133/76
[2016-08-18] MEDS: Miralax 17gm pkt ORAL SCH (22:33)
--- NOTE | 2016-08-18 23:47 | Pulmonology Progress Note ---
Assessment/Plan Problems: (1) Sepsis (2) Emphysema (3) Leukocytosis (4) Colitis (5) Acute encephalopathy (6) Hx SBO Assessment/Plan on zosyn, improivng all cultures negative sofar all notes and meds reviewed. Subjective Interval Events: improving Allergies: Coded Allergies: No Known Allergies (Verified , 05/21/06) Objective Last 24 Hour Vital Signs Date Time Temp Pulse Resp B/P Pulse Ox O2 Delivery O2 Flow Rate FiO2 08/18/16 23:17 98.1 08/18/16 19:38 92 20 Room Air 21 08/18/16 19:00 98.1 93 20 133/76 95 Room Air 08/18/16 16:00 98.1 94 20 140/80 96 Room Air 08/18/16 12:00 97.8 91 18 109/70 97 Room Air 08/18/16 08:00 97.7 88 18 149/79 96 Room Air 08/18/16 04:00 97.5 91 20 104/79 95 Room Air 08/18/16 00:00 97.3 97 20 136/74 97 Room Air Intake and Output 08/17/16 08/18/16 19:00 07:00 Intake Total 550.0 ml 505.0 ml Balance 550.0 ml 505.0 ml Intake Oral 120 ml IV Total 430.0 ml 505.0 ml # Voids 3 General Appearance: WD/WN HEENT: normocephalic Respiratory/Chest: chest wall non-tender Breasts: no masses Cardiovascular: regular rhythm, no JVD Abdomen: soft, non tender Skin: no rash Laboratory Tests 08/18/16 06:15: White Blood Count 11.3H, Red Blood Count 4.58, Hemoglobin 12.0, Hematocrit 40.0 , Mean Corpuscular Volume 87, Mean Corpuscular Hemoglobin 26.3L, Mean Corpuscular Hemoglobin Concent 30.1L, Red Cell Distribution Width 16.2H, Platelet Count 384, Mean Platelet Volume 6.4L, Neutrophils (%) (Auto) 61.1, Lymphocytes (%) (Auto) 23.8, Monocytes (%) (Auto) 12.8H, Eosinophils (%) (Auto) 1.6, Basophils (%) (Auto) 0.8, Sodium Level 138, Potassium Level 3.6, Chloride Level 103, Carbon Dioxide Level 23, Anion Gap 12, Blood Urea Nitrogen 21, Creatinine 0.9, Estimat Glomerular Filtration Rate > 60, Glucose Level 97, Calcium Level 8.9, Total Bilirubin 0.2, Aspartate Amino Transf (AST/SGOT) 9, Alanine Aminotransferase (ALT/SGPT) 5, Alkaline Phosphatase 74, Total Protein 8.1, Albumin 3.0L, Globulin 5.1, Albumin/Globulin Ratio 0.5L Current Medications Medications (Trade) Dose Ordered Sig/Vaibhav Route PRN Reason Start Time Stop Time Status Last Admin Dose Admin Acetaminophen (Tylenol) 650 mg Q4H PRN ORAL fever 08/15/16 14:45 09/14/16 14:44 Al Hydroxide/Mg Hydroxide (Mylanta II) 30 ml Q6H PRN ORAL dyspepsia 08/15/16 14:45 09/14/16 14:44 Albuterol/ Ipratropium (DuoNeb 0.5-3(2.5)mg/3ml) 3 ml Q4HRT PRN HHN sob 08/15/16 18:30 08/20/16 18:29 08/15/16 21:40 Dextrose STAT PRN IV Hypoglycemia 08/15/16 14:45 09/14/16 14:44 Dextrose/Sodium Chloride (D5 0.45% NS) 1,000 ml @ 75 mls/hr [id number] IV 08/15/16 15:00 09/14/16 14:59 08/17/16 21:44 Diphenhydramine HCl (Benadryl) 25 mg Q6H PRN ORAL Itching/Pruritis 08/15/16 14:45 09/14/16 14:44 Docusate Sodium (Colace) 100 mg THREE TIMES A DAY ORAL 08/17/16 13:00 09/16/16 12:59 08/18/16 17:04 Duloxetine HCl (Cymbalta) 60 mg DAILY ORAL 08/16/16 09:00 09/15/16 08:59 08/18/16 08:15 Heparin Sodium (Porcine) (Heparin 5000 units/ml) 5,000 units EVERY 12 HOURS SUBQ 08/15/16 21:00 09/14/16 20:59 08/18/16 22:36 Hydromorphone HCl (Dilaudid) 2 mg Q4H PRN IVP For Pain 08/16/16 08:15 1/29/17 08:14 08/18/16 22:47 Levetiracetam (Keppra) 1,500 mg TWICE A DAY ORAL 08/15/16 18:00 09/14/16 17:59 08/18/16 17:04 Mesalamine (Asacol) 800 mg THREE TIMES A DAY ORAL 08/16/16 09:00 09/15/16 08:59 08/18/16 17:04 Mirtazapine (Remeron) 30 mg BEDTIME ORAL 08/15/16 21:00 09/14/16 20:59 08/18/16 22:33 Nitroglycerin (Ntg) 0.4 mg Q5M X 3 DOSES PRN SL Prn Chest Pain 08/15/16 14:45 09/14/16 14:44 Ondansetron HCl (Zofran) 4 mg Q6H PRN IVP Nausea & Vomiting 08/15/16 14:45 09/14/16 14:44 08/18/16 10:59 Patient Own Medication (Patient's Own Med) 1 ea DAILY@1630 ORAL 08/18/16 16:30 08/20/16 16:31 08/18/16 16:42 Piperacillin Sod/ Tazobactam Sod/ Sodium Chloride (Zosyn/Sodium Chloride) 110 ml @ 27.5 mls/hr EVERY 8 HOURS IVPB 08/15/16 22:00 08/22/16 21:59 08/18/16 22:38 Polyethylene Glycol (Miralax) 17 gm BEDTIME ORAL 08/17/16 21:00 09/16/16 20:59 08/18/16 22:33 Polyethylene Glycol (Miralax) 17 gm HSPRN PRN ORAL Constipation 08/15/16 14:45 09/14/16 14:44 Quetiapine Fumarate (SEROquel) 200 mg DAILY ORAL 08/16/16 09:00 09/15/16 08:59 08/18/16 08:28 Temazepam (Restoril) 15 mg HSPRN PRN ORAL Insomnia 08/15/16 14:45 08/22/16 14:44 08/15/16 22:10 Topiramate 25 mg 25 mg TWICE A DAY ORAL 08/15/16 18:00 09/14/16 17:59 08/18/16 17:04 DWAYNE SOTO Aug 18, 2016 23:47
[2016-08-19] VITALS: BP 101/64
[2016-08-19 04:00] VITALS: BP 130/77
[2016-08-19] MEDS: Piperacillin/Tazobactam 3.375 GM in NS 110 ML IVPB SCH ×2 (05:37→13:53)
[2016-08-19 07:24] LABS: BASOPHILS % (AUTO) 0.8 % (0.0-2.0); EOSINOPHILS % (AUTO) 1.6 % (0.0-3.0); MEAN CORPUSCULAR HEMOGLOBIN 25.9 PG (27.0-31.0); MEAN CORPUSCULAR HGB CONC 29.9 G/DL (32.0-36.0); MEAN CORPUSCULAR VOLUME 87 FL (80-99); MEAN PLATELET VOLUME 6.4 FL (6.5-10.1); NEUTROPHILS % (AUTO) 62.8 % (45.0-75.0); PLATELET COUNT 392 K/UL (150-450); RED BLOOD COUNT 4.75 M/UL (4.20-5.40); RED CELL DISTRIBUTION WIDTH 16.5 % (11.6-14.8); WHITE BLOOD COUNT 10.8 K/UL (4.8-10.8)
[2016-08-19 07:27] LABS: ANION GAP 13 (5-15); CALCIUM 9.1 mg/dL (8.6-10.2); CARBON DIOXIDE 24 mEQ/L (20-30); CHLORIDE 100 mEQ/L (98-107); CREATININE 0.8 mg/dL (0.5-0.9); GLOMERULAR FILTRATION RATE > 60 mL/min (>60); HEMOLYSIS 5; POTASSIUM 3.4 mEQ/L (3.4-4.9); SODIUM 137 mEQ/L (135-145)
[2016-08-19 08:00] VITALS: BP 129/77
[2016-08-19] MEDS: Heparin 5000 units/ml inj SUBQ SCH ×2 (08:32→21:21)
[2016-08-19] MEDS: QUEtiapine 200mg tab ORAL SCH (08:33)
[2016-08-19] MEDS: DULoxetine 30mg cap ORAL SCH (08:33)
[2016-08-19] MEDS: Docusate 100mg cap ORAL SCH ×3 (08:33→17:24)
[2016-08-19] MEDS: Topiramate 25mg tab ORAL SCH ×2 (08:33→17:26)
[2016-08-19 12:00] VITALS: BP 122/66
--- NOTE | 2016-08-19 13:18 | General Progress Note ---
Assessment/Plan Problem List: (1) Abdominal pain (2) Constipation (3) Opioid dependence ICD Codes: F11.20 - Opioid dependence SNOMED: 82726926 (4) Shortness of breath (5) Emphysema ICD Codes: J43.9 - Emphysema SNOMED: 18695925 (6) COPD exacerbation ICD Codes: J44.1 - COPD exacerbation SNOMED: 332393162 (7) CHF (congestive heart failure) ICD Codes: I50.9 - Heart failure, unspecified SNOMED: 74137954 (8) Nausea and vomiting (9) Crohns disease ICD Codes: K50.90 - Crohns disease SNOMED: 28037049 (10) UTI (urinary tract infection) ICD Codes: N39.0 - Urinary tract infection, site not specified SNOMED: 44079545 Status: stable, progressing Assessment/Plan ot pt diet gi f/u abx o2 pulm tx pain control cbc bmp am promise ltach Subjective Constitutional: Reports: weakness Gastrointestinal/Abdominal: Reports: nausea Allergies: Coded Allergies: No Known Allergies (Verified , 05/21/06) All Systems: reviewed and negative except above Subjective sleepy calm Objective Last 24 Hour Vital Signs Date Time Temp Pulse Resp B/P Pulse Ox O2 Delivery O2 Flow Rate FiO2 08/19/16 12:00 98.2 93 18 122/66 98 Room Air 08/19/16 08:00 98.2 92 18 129/77 100 Room Air 08/19/16 07:43 87 20 Room Air 21 08/19/16 04:00 98.2 91 20 130/77 93 Room Air 08/19/16 00:00 97.2 89 20 101/64 100 Room Air 08/18/16 23:17 98.1 08/18/16 19:38 92 20 Room Air 21 08/18/16 19:00 98.1 93 20 133/76 95 Room Air 08/18/16 16:00 98.1 94 20 140/80 96 Room Air Intake and Output 08/18/16 08/19/16 19:00 07:00 Intake Total 690.0 ml 355.0 ml Balance 690.0 ml 355.0 ml Intake Oral 240 ml IV Total 450.0 ml 355.0 ml # Voids 2 4 Laboratory Tests 08/19/16 05:30: White Blood Count 10.8, Red Blood Count 4.75, Hemoglobin 12.3, Hematocrit 41.1, Mean Corpuscular Volume 87, Mean Corpuscular Hemoglobin 25.9L, Mean Corpuscular Hemoglobin Concent 29.9L, Red Cell Distribution Width 16.5H, Platelet Count 392 , Mean Platelet Volume 6.4L, Neutrophils (%) (Auto) 62.8, Lymphocytes (%) (Auto ) 24.0, Monocytes (%) (Auto) 11.0H, Eosinophils (%) (Auto) 1.6, Basophils (%) ( Auto) 0.8, Sodium Level 137, Potassium Level 3.4, Chloride Level 100, Carbon Dioxide Level 24, Anion Gap 13, Blood Urea Nitrogen 18, Creatinine 0.8, Estimat Glomerular Filtration Rate > 60, Glucose Level 90, Calcium Level 9.1 Height (Feet): 5 Height (Inches): 6.00 Weight (Pounds): 164 General Appearance: lethargic EENT: normal ENT inspection Neck: normal alignment Cardiovascular: normal peripheral pulses, normal rate, regular rhythm Respiratory/Chest: chest wall non-tender, lungs clear, normal breath sounds Abdomen: non tender, soft, hypoactive bowel sounds, distended Extremities: normal inspection Edema: no edema noted Arm (L), no edema noted Arm (R), no edema noted Leg (L), no edema noted Leg (R), no edema noted Pedal (L), no edema noted Pedal (R), no edema noted Generalized Neurologic: responsive, motor weakness Skin: normal pigmentation, warm/dry BAYRON BENEDICT Aug 19, 2016 13:18
[2016-08-19] MEDS: D5 1/2NS 1,000 ML IV SCH (13:51)
--- NOTE | 2016-08-19 13:59 | GI Progress Note ---
Assessment/Plan Problems: (1) Abdominal pain ICD Codes: R10.9 - Unspecified abdominal pain SNOMED: 56420921 (2) Crohn's disease ICD Codes: K50.90 - Crohn's disease SNOMED: 41658862 (3) Colitis ICD Codes: K52.9 - Noninfective gastroenteritis and colitis, unspecified SNOMED: 940442428 (4) Abdominal pain (5) Anemia (6) Nausea and vomiting (7) Constipation Status: stable Status Narrative Discussed with Dr. Gallegos. Assessment/Plan APCT >> fecal retention mesalamine for Crohns BM x 1 s/p EGD/colon 2016 non functional implanted morphine pump LLQ ok for DC per GI standpoint cardiac diet Rx trial of Movantik for OIC >> BM x 1 this morning laxatives OB stool uncollected pain mgmt fu labs pt scheduled to be seen outpatient in [facility] next week Subjective Gastrointestinal/Abdominal: Reports: abdominal pain - improved Subjective BM x 1 Objective Last 24 Hour Vital Signs Date Time Temp Pulse Resp B/P Pulse Ox O2 Delivery O2 Flow Rate FiO2 08/19/16 12:00 98.2 93 18 122/66 98 Room Air 08/19/16 08:00 98.2 92 18 129/77 100 Room Air 08/19/16 07:43 87 20 Room Air 21 08/19/16 04:00 98.2 91 20 130/77 93 Room Air 08/19/16 00:00 97.2 89 20 101/64 100 Room Air 08/18/16 23:17 98.1 08/18/16 19:38 92 20 Room Air 21 08/18/16 19:00 98.1 93 20 133/76 95 Room Air 08/18/16 16:00 98.1 94 20 140/80 96 Room Air Intake and Output 08/18/16 08/19/16 19:00 07:00 Intake Total 690.0 ml 355.0 ml Balance 690.0 ml 355.0 ml Intake Oral 240 ml IV Total 450.0 ml 355.0 ml # Voids 2 4 Laboratory Tests Test 08/19/16 05:30 White Blood Count 10.8 K/UL (4.8-10.8) Red Blood Count 4.75 M/UL (4.20-5.40) Hemoglobin 12.3 G/DL (12.0-16.0) Hematocrit 41.1 % (37.0-47.0) Mean Corpuscular Volume 87 FL (80-99) Mean Corpuscular Hemoglobin 25.9 PG (27.0-31.0) L Mean Corpuscular Hemoglobin Concent 29.9 G/DL (32.0-36.0) L Red Cell Distribution Width 16.5 % (11.6-14.8) H Platelet Count 392 K/UL (150-450) Mean Platelet Volume 6.4 FL (6.5-10.1) L Neutrophils (%) (Auto) 62.8 % (45.0-75.0) Lymphocytes (%) (Auto) 24.0 % (20.0-45.0) Monocytes (%) (Auto) 11.0 % (1.0-10.0) H Eosinophils (%) (Auto) 1.6 % (0.0-3.0) Basophils (%) (Auto) 0.8 % (0.0-2.0) Sodium Level 137 mEQ/L (135-145) Potassium Level 3.4 mEQ/L (3.4-4.9) Chloride Level 100 mEQ/L (98-107) Carbon Dioxide Level 24 mEQ/L (20-30) Anion Gap 13 (5-15) Blood Urea Nitrogen 18 mg/dL (7-23) Creatinine 0.8 mg/dL (0.5-0.9) Estimat Glomerular Filtration Rate > 60 mL/min (>60) Glucose Level 90 mg/dL (74-106) Calcium Level 9.1 mg/dL (8.6-10.2) Microbiology Date/Time Source Procedure Growth Status 08/19/16 06:50 Stool Clostridium difficile Toxin Assay - Final Complete Height (Feet): 5 Height (Inches): 6.00 Weight (Pounds): 164 General Appearance: alert, other - drowsy Cardiovascular: normal rate Respiratory/Chest: normal breath sounds, no respiratory distress Abdominal Exam: normal bowel sounds, non tender, soft Tara Scott N.PDeng Aug 19, 2016 13:59
[2016-08-19 16:00] VITALS: BP 123/74
--- NOTE | 2016-08-19 16:47 | Infectious Diseases Prog Note ---
Assessment/Plan Problems: (1) Ileus Assessment & Plan: suspect due to prior surgeries , continue supportive care , management as per GI (2) UTI (urinary tract infection) Assessment & Plan: urine culture showed contaminant [email or web address] D/C zosyn (3) Sepsis Assessment & Plan: ruled out with negative blood culture , will stop zosyn , and monitor off antibiotics. (4) Abdominal pain Assessment & Plan: continue pain management as per primary, check CT abdomen (5) Crohn's disease Assessment & Plan: consult GI, continue meds (6) Nausea and vomiting Assessment & Plan: due to ileus , continue supportive care Subjective Constitutional: Denies: anorexia, chills, drenching sweats, fatigue, fever, no symptoms, other HEENT: Denies: congestion, coryza, dysphagia, hearing change, no symptoms, other, visual change Respiratory: Denies: dry cough, no symptoms, other, productive cough, shortness of breath Breasts: Denies: discharge, no symptoms, other, swelling, tenderness Cardiovascular: Denies: chest pain, dyspnea on exertion, no symptoms, other, palpitations Gastrointestinal/Abdominal: Reports: bloating, constipation Genitourinary: Denies: dysuria, frequency, hematuria, last menstrual period, no symptoms, nocturia, other, vaginal bleed/discharge Neurologic: Reports: weakness Psychiatric: Denies: anxiety, depression, no symptoms, other Skin: Denies: no symptoms, other, rash, ulcer Endocrine: Denies: feels cold, feels warm, no symptoms, other Allergies: Coded Allergies: No Known Allergies (Verified , 05/21/06) Subjective she was doing ok, awake and alert today , had one BM today , no nausea or vomiting Objective Vital Signs Last 24 Hour Vital Signs Date Time Temp Pulse Resp B/P Pulse Ox O2 Delivery O2 Flow Rate FiO2 08/19/16 12:00 98.2 93 18 122/66 98 Room Air 08/19/16 08:00 98.2 92 18 129/77 100 Room Air 08/19/16 07:43 87 20 Room Air 21 08/19/16 04:00 98.2 91 20 130/77 93 Room Air 08/19/16 00:00 97.2 89 20 101/64 100 Room Air 08/18/16 23:17 98.1 08/18/16 19:38 92 20 Room Air 21 08/18/16 19:00 98.1 93 20 133/76 95 Room Air Height (Feet): 5 Height (Inches): 6.00 Weight (Pounds): 164 General Appearance: WD/WN, no acute distress HEENT: normocephalic, atraumatic, anicteric, mucous membranes moist Respiratory/Chest: chest wall non-tender, lungs clear, normal breath sounds, no respiratory distress, no accessory muscle use Cardiovascular: normal peripheral pulses, normal rate, regular rhythm, no gallop/murmur Abdomen: normal bowel sounds, soft, non tender, no organomegaly, non distended , no mass, no scars Extremities: no cyanosis, no clubbing Skin: no rash, no lesions Microbiology Date/Time Source Procedure Growth Status 08/19/16 06:50 Stool Clostridium difficile Toxin Assay - Final Complete Laboratory Tests Test 08/19/16 05:30 White Blood Count 10.8 K/UL (4.8-10.8) Red Blood Count 4.75 M/UL (4.20-5.40) Hemoglobin 12.3 G/DL (12.0-16.0) Hematocrit 41.1 % (37.0-47.0) Mean Corpuscular Volume 87 FL (80-99) Mean Corpuscular Hemoglobin 25.9 PG (27.0-31.0) L Mean Corpuscular Hemoglobin Concent 29.9 G/DL (32.0-36.0) L Red Cell Distribution Width 16.5 % (11.6-14.8) H Platelet Count 392 K/UL (150-450) Mean Platelet Volume 6.4 FL (6.5-10.1) L Neutrophils (%) (Auto) 62.8 % (45.0-75.0) Lymphocytes (%) (Auto) 24.0 % (20.0-45.0) Monocytes (%) (Auto) 11.0 % (1.0-10.0) H Eosinophils (%) (Auto) 1.6 % (0.0-3.0) Basophils (%) (Auto) 0.8 % (0.0-2.0) Sodium Level 137 mEQ/L (135-145) Potassium Level 3.4 mEQ/L (3.4-4.9) Chloride Level 100 mEQ/L (98-107) Carbon Dioxide Level 24 mEQ/L (20-30) Anion Gap 13 (5-15) Blood Urea Nitrogen 18 mg/dL (7-23) Creatinine 0.8 mg/dL (0.5-0.9) Estimat Glomerular Filtration Rate > 60 mL/min (>60) Glucose Level 90 mg/dL (74-106) Calcium Level 9.1 mg/dL (8.6-10.2) Current Medications Medications (Trade) Dose Ordered Sig/Vaibhav Route PRN Reason Start Time Stop Time Status Last Admin Dose Admin Acetaminophen (Tylenol) 650 mg Q4H PRN ORAL fever 08/15/16 14:45 09/14/16 14:44 Al Hydroxide/Mg Hydroxide (Mylanta II) 30 ml Q6H PRN ORAL dyspepsia 08/15/16 14:45 09/14/16 14:44 Albuterol/ Ipratropium (DuoNeb 0.5-3(2.5)mg/3ml) 3 ml Q4HRT PRN HHN sob 08/15/16 18:30 08/20/16 18:29 08/15/16 21:40 Dextrose STAT PRN IV Hypoglycemia 08/15/16 14:45 09/14/16 14:44 Dextrose/Sodium Chloride (D5 0.45% NS) 1,000 ml @ 75 mls/hr [id number] IV 08/15/16 15:00 09/14/16 14:59 08/19/16 13:51 Diphenhydramine HCl (Benadryl) 25 mg Q6H PRN ORAL Itching/Pruritis 08/15/16 14:45 09/14/16 14:44 Docusate Sodium (Colace) 100 mg THREE TIMES A DAY ORAL 08/17/16 13:00 09/16/16 12:59 08/19/16 13:51 Duloxetine HCl (Cymbalta) 60 mg DAILY ORAL 08/16/16 09:00 09/15/16 08:59 08/19/16 08:33 Heparin Sodium (Porcine) (Heparin 5000 units/ml) 5,000 units EVERY 12 HOURS SUBQ 08/15/16 21:00 09/14/16 20:59 08/19/16 08:32 Hydromorphone HCl (Dilaudid) 1 mg Q4H PRN IVP PAIN 4-10 08/19/16 14:00 08/26/16 13:59 Levetiracetam (Keppra) 1,500 mg TWICE A DAY ORAL 08/15/16 18:00 09/14/16 17:59 08/19/16 08:33 Mesalamine (Asacol) 800 mg THREE TIMES A DAY ORAL 08/16/16 09:00 09/15/16 08:59 08/19/16 13:51 Mirtazapine (Remeron) 30 mg BEDTIME ORAL 08/15/16 21:00 09/14/16 20:59 08/18/16 22:33 Nitroglycerin (Ntg) 0.4 mg Q5M X 3 DOSES PRN SL Prn Chest Pain 08/15/16 14:45 09/14/16 14:44 Ondansetron HCl (Zofran) 4 mg Q6H PRN IVP Nausea & Vomiting 08/15/16 14:45 09/14/16 14:44 08/18/16 10:59 Patient Own Medication (Patient's Own Med) 1 ea DAILY@1630 ORAL 08/18/16 16:30 08/20/16 16:31 08/18/16 16:42 Piperacillin Sod/ Tazobactam Sod/ Sodium Chloride (Zosyn/Sodium Chloride) 110 ml @ 27.5 mls/hr EVERY 8 HOURS IVPB 08/15/16 22:00 08/22/16 21:59 08/19/16 13:53 Polyethylene Glycol (Miralax) 17 gm BEDTIME ORAL 08/17/16 21:00 09/16/16 20:59 08/18/16 22:33 Polyethylene Glycol (Miralax) 17 gm HSPRN PRN ORAL Constipation 08/15/16 14:45 09/14/16 14:44 Quetiapine Fumarate (SEROquel) 200 mg DAILY ORAL 08/16/16 09:00 09/15/16 08:59 08/19/16 08:33 Temazepam (Restoril) 15 mg HSPRN PRN ORAL Insomnia 08/15/16 14:45 08/22/16 14:44 08/15/16 22:10 Topiramate 25 mg 25 mg TWICE A DAY ORAL 08/15/16 18:00 09/14/16 17:59 08/19/16 08:33 Darrel Golden M.D. Aug 19, 2016 16:47
[2016-08-19] MEDS: HYDROmorphone 1mg/ml Carpuject IVP PRN ×2 (17:27→18:49)
--- NOTE | 2016-08-19 17:43 | Pulmonology Progress Note ---
Assessment/Plan Problems: (1) Sepsis (2) Leukocytosis (3) Colitis (4) Acute encephalopathy (5) Hx SBO (6) Crohn's disease (7) Asthma (8) Emphysema Assessment/Plan improving off antibiotics all cultures negative tolerating diet Subjective ROS Limited/Unobtainable: No Interval Events: no new complains Allergies: Coded Allergies: No Known Allergies (Verified , 05/21/06) Objective Last 24 Hour Vital Signs Date Time Temp Pulse Resp B/P Pulse Ox O2 Delivery O2 Flow Rate FiO2 08/19/16 16:00 98.4 95 20 123/74 100 Room Air 08/19/16 12:00 98.2 93 18 122/66 98 Room Air 08/19/16 08:00 98.2 92 18 129/77 100 Room Air 08/19/16 07:43 87 20 Room Air 21 08/19/16 04:00 98.2 91 20 130/77 93 Room Air 08/19/16 00:00 97.2 89 20 101/64 100 Room Air 08/18/16 23:17 98.1 08/18/16 19:38 92 20 Room Air 21 08/18/16 19:00 98.1 93 20 133/76 95 Room Air Intake and Output 08/18/16 08/19/16 19:00 07:00 Intake Total 690.0 ml 355.0 ml Balance 690.0 ml 355.0 ml Intake Oral 240 ml IV Total 450.0 ml 355.0 ml # Voids 2 4 General Appearance: WD/WN HEENT: normocephalic, atraumatic Respiratory/Chest: chest wall non-tender, lungs clear Cardiovascular: normal peripheral pulses, normal rate Abdomen: normal bowel sounds, soft, non tender Skin: no rash 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, no motor/sensory deficits Microbiology Date/Time Source Procedure Growth Status 08/19/16 06:50 Stool Clostridium difficile Toxin Assay - Final Complete Laboratory Tests 08/19/16 05:30: White Blood Count 10.8, Red Blood Count 4.75, Hemoglobin 12.3, Hematocrit 41.1, Mean Corpuscular Volume 87, Mean Corpuscular Hemoglobin 25.9L, Mean Corpuscular Hemoglobin Concent 29.9L, Red Cell Distribution Width 16.5H, Platelet Count 392 , Mean Platelet Volume 6.4L, Neutrophils (%) (Auto) 62.8, Lymphocytes (%) (Auto ) 24.0, Monocytes (%) (Auto) 11.0H, Eosinophils (%) (Auto) 1.6, Basophils (%) ( Auto) 0.8, Sodium Level 137, Potassium Level 3.4, Chloride Level 100, Carbon Dioxide Level 24, Anion Gap 13, Blood Urea Nitrogen 18, Creatinine 0.8, Estimat Glomerular Filtration Rate > 60, Glucose Level 90, Calcium Level 9.1 Current Medications Medications (Trade) Dose Ordered Sig/Vaibhav Route PRN Reason Start Time Stop Time Status Last Admin Dose Admin Acetaminophen (Tylenol) 650 mg Q4H PRN ORAL fever 08/15/16 14:45 09/14/16 14:44 Al Hydroxide/Mg Hydroxide (Mylanta II) 30 ml Q6H PRN ORAL dyspepsia 08/15/16 14:45 09/14/16 14:44 Albuterol/ Ipratropium (DuoNeb 0.5-3(2.5)mg/3ml) 3 ml Q4HRT PRN HHN sob 08/15/16 18:30 08/20/16 18:29 08/15/16 21:40 Dextrose (Dextrose 50%) STAT PRN IV Hypoglycemia 08/15/16 14:45 09/14/16 14:44 Dextrose/Sodium Chloride (D5 0.45% NS) 1,000 ml @ 75 mls/hr [id number] IV 08/15/16 15:00 09/14/16 14:59 08/19/16 13:51 Diphenhydramine HCl (Benadryl) 25 mg Q6H PRN ORAL Itching/Pruritis 08/15/16 14:45 09/14/16 14:44 Docusate Sodium (Colace) 100 mg THREE TIMES A DAY ORAL 08/17/16 13:00 09/16/16 12:59 08/19/16 13:51 Duloxetine HCl (Cymbalta) 60 mg DAILY ORAL 08/16/16 09:00 09/15/16 08:59 08/19/16 08:33 Heparin Sodium (Porcine) (Heparin 5000 units/ml) 5,000 units EVERY 12 HOURS SUBQ 08/15/16 21:00 09/14/16 20:59 08/19/16 08:32 Hydromorphone HCl (Dilaudid) 1 mg Q4H PRN IVP PAIN 4-10 08/19/16 14:00 08/26/16 13:59 08/19/16 17:27 Levetiracetam (Keppra) 1,500 mg TWICE A DAY ORAL 08/15/16 18:00 09/14/16 17:59 08/19/16 17:26 Mesalamine (Asacol) 800 mg THREE TIMES A DAY ORAL 08/16/16 09:00 09/15/16 08:59 08/19/16 17:26 Mirtazapine (Remeron) 30 mg BEDTIME ORAL 08/15/16 21:00 09/14/16 20:59 08/18/16 22:33 Nitroglycerin (Ntg) 0.4 mg Q5M X 3 DOSES PRN SL Prn Chest Pain 08/15/16 14:45 09/14/16 14:44 Ondansetron HCl (Zofran) 4 mg Q6H PRN IVP Nausea & Vomiting 08/15/16 14:45 09/14/16 14:44 08/18/16 10:59 Patient Own Medication (Patient's Own Med) 1 ea DAILY@1630 ORAL 08/18/16 16:30 08/20/16 16:31 08/18/16 16:42 Polyethylene Glycol (Miralax) 17 gm BEDTIME ORAL 08/17/16 21:00 09/16/16 20:59 08/18/16 22:33 Polyethylene Glycol (Miralax) 17 gm HSPRN PRN ORAL Constipation 08/15/16 14:45 09/14/16 14:44 Quetiapine Fumarate (SEROquel) 200 mg DAILY ORAL 08/16/16 09:00 09/15/16 08:59 08/19/16 08:33 Temazepam (Restoril) 15 mg HSPRN PRN ORAL Insomnia 08/15/16 14:45 08/22/16 14:44 08/15/16 22:10 Topiramate 25 mg 25 mg TWICE A DAY ORAL 08/15/16 18:00 09/14/16 17:59 08/19/16 17:26 DWAYNE SOTO Aug 19, 2016 17:43
[2016-08-19] MEDS: MOVANTIK 25 MG ORAL SCH (18:49)
[2016-08-19 19:00] VITALS: BP 128/74
[2016-08-19] MEDS: Miralax 17gm pkt ORAL SCH (21:00)
[2016-08-20] VITALS: BP 148/75
[2016-08-20] MEDS: HYDROmorphone 1mg/ml Carpuject IVP PRN ×5 (00:30→22:32)
[2016-08-20] MEDS: D5 1/2NS 1,000 ML IV SCH ×2 (01:40→11:07)
[2016-08-20 04:00] VITALS: BP 126/76
[2016-08-20 07:32] LABS: BASOPHILS % (AUTO) 0.7 % (0.0-2.0); EOSINOPHILS % (AUTO) 1.5 % (0.0-3.0); LYMPHOCYTES % (AUTO) 20.4 % (20.0-45.0); MEAN CORPUSCULAR HEMOGLOBIN 26.3 PG (27.0-31.0); MEAN CORPUSCULAR HGB CONC 30.4 G/DL (32.0-36.0); MEAN CORPUSCULAR VOLUME 86 FL (80-99); MEAN PLATELET VOLUME 6.8 FL (6.5-10.1); MONOCYTES % (AUTO) 10.9 % (1.0-10.0); NEUTROPHILS % (AUTO) 66.5 % (45.0-75.0); PLATELET COUNT 371 K/UL (150-450); RED BLOOD COUNT 4.48 M/UL (4.20-5.40); RED CELL DISTRIBUTION WIDTH 16.4 % (11.6-14.8); WHITE BLOOD COUNT 10.2 K/UL (4.8-10.8)
[2016-08-20 08:00] VITALS: BP 123/72
[2016-08-20 08:03] LABS: ANION GAP 13 (5-15); CALCIUM 8.9 mg/dL (8.6-10.2); CARBON DIOXIDE 25 mEQ/L (20-30); CHLORIDE 100 mEQ/L (98-107); CREATININE 0.8 mg/dL (0.5-0.9); GLOMERULAR FILTRATION RATE > 60 mL/min (>60); HEMOLYSIS 0; POTASSIUM 3.2 mEQ/L (3.4-4.9); SODIUM 138 mEQ/L (135-145)
[2016-08-20] MEDS: Heparin 5000 units/ml inj SUBQ SCH ×2 (09:31→20:38)
[2016-08-20] MEDS: Docusate 100mg cap ORAL SCH ×3 (09:33→17:40)
[2016-08-20] MEDS: QUEtiapine 200mg tab ORAL SCH (09:33)
[2016-08-20] MEDS: DULoxetine 30mg cap ORAL SCH (09:33)
[2016-08-20] MEDS: Topiramate 25mg tab ORAL SCH ×2 (09:34→17:40)
--- NOTE | 2016-08-20 11:19 | GI Progress Note ---
Assessment/Plan Problems: (1) Abdominal pain ICD Codes: R10.9 - Unspecified abdominal pain SNOMED: 81761665 (2) Crohn's disease ICD Codes: K50.90 - Crohn's disease SNOMED: 42796473 (3) Colitis ICD Codes: K52.9 - Noninfective gastroenteritis and colitis, unspecified SNOMED: 502626450 (4) Abdominal pain (5) Anemia (6) Nausea and vomiting (7) Constipation Status: stable Status Narrative Discussed with Dr. Gallegos. Assessment/Plan APCT >> fecal retention mesalamine for Crohns BM x 1 s/p EGD/colon 2016 non functional implanted morphine pump LLQ ok for DC per GI standpoint cardiac diet Rx trial of Movantik for OIC >> patient responded well laxatives OB stool uncollected pain mgmt fu labs pt scheduled to be seen outpatient in [facility] next week Subjective Gastrointestinal/Abdominal: Reports: no symptoms Subjective feels better multiple BMs ready to go home Objective Last 24 Hour Vital Signs Date Time Temp Pulse Resp B/P Pulse Ox O2 Delivery O2 Flow Rate FiO2 08/20/16 09:45 92 20 Room Air 21 08/20/16 08:00 97.6 83 18 123/72 97 Room Air 08/20/16 04:00 96.4 84 20 126/76 100 Room Air 08/20/16 00:00 98.1 85 20 148/75 100 Room Air 08/19/16 19:00 90 20 Room Air 21 08/19/16 19:00 97.9 89 18 128/74 100 Room Air 08/19/16 16:00 98.4 95 20 123/74 100 Room Air 08/19/16 12:00 98.2 93 18 122/66 98 Room Air Intake and Output 08/19/16 08/20/16 19:00 07:00 Intake Total 642.5 ml 1035 ml Balance 642.5 ml 1035 ml Intake Oral 560 ml 360 ml IV Total 82.5 ml 675 ml # Voids 3 5 # Bowel Movements 1 3 Laboratory Tests Test 08/20/16 06:50 White Blood Count 10.2 K/UL (4.8-10.8) Red Blood Count 4.48 M/UL (4.20-5.40) Hemoglobin 11.8 G/DL (12.0-16.0) L Hematocrit 38.6 % (37.0-47.0) Mean Corpuscular Volume 86 FL (80-99) Mean Corpuscular Hemoglobin 26.3 PG (27.0-31.0) L Mean Corpuscular Hemoglobin Concent 30.4 G/DL (32.0-36.0) L Red Cell Distribution Width 16.4 % (11.6-14.8) H Platelet Count 371 K/UL (150-450) Mean Platelet Volume 6.8 FL (6.5-10.1) Neutrophils (%) (Auto) 66.5 % (45.0-75.0) Lymphocytes (%) (Auto) 20.4 % (20.0-45.0) Monocytes (%) (Auto) 10.9 % (1.0-10.0) H Eosinophils (%) (Auto) 1.5 % (0.0-3.0) Basophils (%) (Auto) 0.7 % (0.0-2.0) Sodium Level 138 mEQ/L (135-145) Potassium Level 3.2 mEQ/L (3.4-4.9) L Chloride Level 100 mEQ/L (98-107) Carbon Dioxide Level 25 mEQ/L (20-30) Anion Gap 13 (5-15) Blood Urea Nitrogen 15 mg/dL (7-23) Creatinine 0.8 mg/dL (0.5-0.9) Estimat Glomerular Filtration Rate > 60 mL/min (>60) Glucose Level 103 mg/dL (74-106) Calcium Level 8.9 mg/dL (8.6-10.2) Height (Feet): 5 Height (Inches): 6.00 Weight (Pounds): 164 General Appearance: no apparent distress, alert Cardiovascular: normal rate Respiratory/Chest: normal breath sounds, no respiratory distress Abdominal Exam: normal bowel sounds, non tender, soft Extremities: normal range of motion Tara Scott N.P. Aug 20, 2016 11:19
[2016-08-20 12:00] VITALS: BP 131/71
--- NOTE | 2016-08-20 14:57 | Pulmonology Progress Note ---
Assessment/Plan Problems: (1) Interstitial lung disease (2) Sepsis (3) Emphysema (4) Leukocytosis (5) Colitis (6) Acute encephalopathy (7) Hx SBO Assessment/Plan cxr unchged on zosyn, improivng titrate fo2 to sat of 92% all cultures negative sofar all notes and meds reviewed. Subjective ROS Limited/Unobtainable: No Interval Events: no new complains Allergies: Coded Allergies: No Known Allergies (Verified , 05/21/06) Objective Last 24 Hour Vital Signs Date Time Temp Pulse Resp B/P Pulse Ox O2 Delivery O2 Flow Rate FiO2 08/20/16 12:00 97.5 86 18 131/71 98 Room Air 08/20/16 09:45 92 20 Room Air 21 08/20/16 08:00 97.6 83 18 123/72 97 Room Air 08/20/16 04:00 96.4 84 20 126/76 100 Room Air 08/20/16 00:00 98.1 85 20 148/75 100 Room Air 08/19/16 19:00 90 20 Room Air 21 08/19/16 19:00 97.9 89 18 128/74 100 Room Air 08/19/16 16:00 98.4 95 20 123/74 100 Room Air Intake and Output 08/19/16 08/20/16 19:00 07:00 Intake Total 642.5 ml 1035 ml Balance 642.5 ml 1035 ml Intake Oral 560 ml 360 ml IV Total 82.5 ml 675 ml # Voids 3 5 # Bowel Movements 1 3 General Appearance: WD/WN HEENT: normocephalic Respiratory/Chest: chest wall non-tender, crackles/rales Cardiovascular: normal peripheral pulses, normal rate Abdomen: normal bowel sounds, soft, non tender Genitourinary: normal external genitalia Extremities: no cyanosis 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, no motor/sensory deficits Microbiology Date/Time Source Procedure Growth Status 08/19/16 06:50 Stool Clostridium difficile Toxin Assay - Final Complete Laboratory Tests 08/20/16 06:50: White Blood Count 10.2, Red Blood Count 4.48, Hemoglobin 11.8L, Hematocrit 38.6 , Mean Corpuscular Volume 86, Mean Corpuscular Hemoglobin 26.3L, Mean Corpuscular Hemoglobin Concent 30.4L, Red Cell Distribution Width 16.4H, Platelet Count 371, Mean Platelet Volume 6.8, Neutrophils (%) (Auto) 66.5, Lymphocytes (%) (Auto) 20.4, Monocytes (%) (Auto) 10.9H, Eosinophils (%) (Auto) 1.5, Basophils (%) (Auto) 0.7, Sodium Level 138, Potassium Level 3.2L, Chloride Level 100, Carbon Dioxide Level 25, Anion Gap 13, Blood Urea Nitrogen 15, Creatinine 0.8, Estimat Glomerular Filtration Rate > 60, Glucose Level 103, Calcium Level 8.9 Current Medications Medications (Trade) Dose Ordered Sig/Vaibhav Route PRN Reason Start Time Stop Time Status Last Admin Dose Admin Acetaminophen (Tylenol) 650 mg Q4H PRN ORAL fever 08/15/16 14:45 09/14/16 14:44 Al Hydroxide/Mg Hydroxide (Mylanta II) 30 ml Q6H PRN ORAL dyspepsia 08/15/16 14:45 09/14/16 14:44 Albuterol/ Ipratropium (DuoNeb 0.5-3(2.5)mg/3ml) 3 ml Q4HRT PRN HHN sob 08/15/16 18:30 08/20/16 18:29 08/15/16 21:40 Dextrose (Dextrose 50%) STAT PRN IV Hypoglycemia 08/15/16 14:45 09/14/16 14:44 Dextrose/Sodium Chloride (D5 0.45% NS) 1,000 ml @ 75 mls/hr [id number] IV 08/15/16 15:00 09/14/16 14:59 08/20/16 11:07 Diphenhydramine HCl (Benadryl) 25 mg Q6H PRN ORAL Itching/Pruritis 08/15/16 14:45 09/14/16 14:44 Docusate Sodium (Colace) 100 mg THREE TIMES A DAY ORAL 08/17/16 13:00 09/16/16 12:59 08/20/16 12:54 Duloxetine HCl (Cymbalta) 60 mg DAILY ORAL 08/16/16 09:00 09/15/16 08:59 08/20/16 09:33 Heparin Sodium (Porcine) (Heparin 5000 units/ml) 5,000 units EVERY 12 HOURS SUBQ 08/15/16 21:00 09/14/16 20:59 08/20/16 09:31 Hydromorphone HCl (Dilaudid) 1 mg Q4H PRN IVP PAIN 4-10 08/19/16 14:00 08/26/16 13:59 08/20/16 13:42 Levetiracetam (Keppra) 1,500 mg TWICE A DAY ORAL 08/15/16 18:00 09/14/16 17:59 08/20/16 09:35 Mesalamine (Asacol) 800 mg THREE TIMES A DAY ORAL 08/16/16 09:00 09/15/16 08:59 08/20/16 12:54 Mirtazapine (Remeron) 30 mg BEDTIME ORAL 08/15/16 21:00 09/14/16 20:59 08/19/16 21:20 Nitroglycerin (Ntg) 0.4 mg Q5M X 3 DOSES PRN SL Prn Chest Pain 08/15/16 14:45 09/14/16 14:44 Ondansetron HCl (Zofran) 4 mg Q6H PRN IVP Nausea & Vomiting 08/15/16 14:45 09/14/16 14:44 08/20/16 09:37 Patient Own Medication (Patient's Own Med) 1 ea DAILY@1630 ORAL 08/18/16 16:30 08/20/16 16:31 08/19/16 18:49 Polyethylene Glycol (Miralax) 17 gm BEDTIME ORAL 08/17/16 21:00 09/16/16 20:59 08/18/16 22:33 Polyethylene Glycol (Miralax) 17 gm HSPRN PRN ORAL Constipation 08/15/16 14:45 09/14/16 14:44 Quetiapine Fumarate (SEROquel) 200 mg DAILY ORAL 08/16/16 09:00 09/15/16 08:59 08/20/16 09:33 Temazepam (Restoril) 15 mg HSPRN PRN ORAL Insomnia 08/15/16 14:45 08/22/16 14:44 08/15/16 22:10 Topiramate 25 mg 25 mg TWICE A DAY ORAL 08/15/16 18:00 09/14/16 17:59 08/20/16 09:34 DWAYNE SOTO Aug 20, 2016 14:57
--- NOTE | 2016-08-20 15:20 | General Progress Note ---
Assessment/Plan Problem List: (1) Abdominal pain (2) Constipation (3) Opioid dependence ICD Codes: F11.20 - Opioid dependence SNOMED: 76341847 (4) Shortness of breath (5) Emphysema ICD Codes: J43.9 - Emphysema SNOMED: 70600950 (6) COPD exacerbation ICD Codes: J44.1 - COPD exacerbation SNOMED: 265494637 (7) CHF (congestive heart failure) ICD Codes: I50.9 - Heart failure, unspecified SNOMED: 14783954 (8) Nausea and vomiting (9) Crohns disease ICD Codes: K50.90 - Crohns disease SNOMED: 22641281 (10) UTI (urinary tract infection) ICD Codes: N39.0 - Urinary tract infection, site not specified SNOMED: 25553620 Status: stable, progressing, tolerating diet Assessment/Plan ot pt diet gi f/u abx o2 pulm tx pain control cbc bmp am promise ltach transfer Subjective Constitutional: Reports: weakness Allergies: Coded Allergies: No Known Allergies (Verified , 05/21/06) All Systems: reviewed and negative except above Subjective sleepy calm Objective Last 24 Hour Vital Signs Date Time Temp Pulse Resp B/P Pulse Ox O2 Delivery O2 Flow Rate FiO2 08/20/16 12:00 97.5 86 18 131/71 98 Room Air 08/20/16 09:45 92 20 Room Air 08/20/16 08:00 97.6 83 18 123/72 97 Room Air 08/20/16 04:00 96.4 84 20 126/76 100 Room Air 08/20/16 00:00 98.1 85 20 148/75 100 Room Air 08/19/16 19:00 90 20 Room Air 21 08/19/16 19:00 97.9 89 18 128/74 100 Room Air 08/19/16 16:00 98.4 95 20 123/74 100 Room Air Intake and Output 08/19/16 08/20/16 19:00 07:00 Intake Total 642.5 ml 1035 ml Balance 642.5 ml 1035 ml Intake Oral 560 ml 360 ml IV Total 82.5 ml 675 ml # Voids 3 5 # Bowel Movements 1 3 Laboratory Tests 08/20/16 06:50: White Blood Count 10.2, Red Blood Count 4.48, Hemoglobin 11.8L, Hematocrit 38.6 , Mean Corpuscular Volume 86, Mean Corpuscular Hemoglobin 26.3L, Mean Corpuscular Hemoglobin Concent 30.4L, Red Cell Distribution Width 16.4H, Platelet Count 371, Mean Platelet Volume 6.8, Neutrophils (%) (Auto) 66.5, Lymphocytes (%) (Auto) 20.4, Monocytes (%) (Auto) 10.9H, Eosinophils (%) (Auto) 1.5, Basophils (%) (Auto) 0.7, Sodium Level 138, Potassium Level 3.2L, Chloride Level 100, Carbon Dioxide Level 25, Anion Gap 13, Blood Urea Nitrogen 15, Creatinine 0.8, Estimat Glomerular Filtration Rate > 60, Glucose Level 103, Calcium Level 8.9 Height (Feet): 5 Height (Inches): 6.00 Weight (Pounds): 164 General Appearance: lethargic EENT: TMs normal Neck: normal alignment Cardiovascular: normal peripheral pulses, normal rate, regular rhythm Respiratory/Chest: chest wall non-tender, lungs clear, normal breath sounds Abdomen: non tender, soft Extremities: normal inspection Edema: no edema noted Arm (L), no edema noted Arm (R), no edema noted Leg (L), no edema noted Leg (R), no edema noted Pedal (L), no edema noted Pedal (R), no edema noted Generalized Neurologic: motor weakness Skin: warm/dry BAYRON BENEDICT Aug 20, 2016 15:20
[2016-08-20 16:00] VITALS: BP 116/64
[2016-08-20] MEDS: MOVANTIK 25 MG ORAL SCH (16:45)
--- NOTE | 2016-08-20 17:34 | Infectious Diseases Prog Note ---
Assessment/Plan Problems: (1) Ileus Assessment & Plan: suspect due to prior surgeries , continue supportive care , management as per GI (2) UTI (urinary tract infection) Assessment & Plan: urine culture showed contaminant [place]. zosyn was discontinued (3) Sepsis Assessment & Plan: ruled out with negative blood culture , off zosyn , will monitor off antibiotics. (4) Abdominal pain Assessment & Plan: continue pain management as per primary, check CT abdomen (5) Crohn's disease Assessment & Plan: GI is following , continue meds (6) Nausea and vomiting Assessment & Plan: due to ileus , continue supportive care Subjective Gastrointestinal/Abdominal: Reports: bloating, nausea Allergies: Coded Allergies: No Known Allergies (Verified , 05/21/06) All Systems: reviewed and negative except above Subjective tolerated liquid diet Objective Vital Signs Last 24 Hour Vital Signs Date Time Temp Pulse Resp B/P Pulse Ox O2 Delivery O2 Flow Rate FiO2 08/20/16 16:00 97.3 91 18 116/64 Room Air 08/20/16 12:00 97.5 86 18 131/71 98 Room Air 08/20/16 09:45 92 20 Room Air 21 08/20/16 08:00 97.6 83 18 123/72 97 Room Air 08/20/16 04:00 96.4 84 20 126/76 100 Room Air 08/20/16 00:00 98.1 85 20 148/75 100 Room Air 08/19/16 19:00 90 20 Room Air 21 08/19/16 19:00 97.9 89 18 128/74 100 Room Air Height (Feet): 5 Height (Inches): 6.00 Weight (Pounds): 164 General Appearance: WD/WN, no acute distress HEENT: normocephalic, atraumatic, anicteric, mucous membranes moist, PERRL Respiratory/Chest: chest wall non-tender, lungs clear, normal breath sounds, no respiratory distress, no accessory muscle use Cardiovascular: normal peripheral pulses, normal rate, regular rhythm, no gallop/murmur, no JVD Abdomen: normal bowel sounds, no organomegaly, no mass, hypoactive bowel sounds , distended, tender Extremities: no cyanosis, no clubbing Skin: no rash, no lesions, no ulcers Microbiology Date/Time Source Procedure Growth Status 08/19/16 06:50 Stool Clostridium difficile Toxin Assay - Final Complete Laboratory Tests Test 08/20/16 06:50 White Blood Count 10.2 K/UL (4.8-10.8) Red Blood Count 4.48 M/UL (4.20-5.40) Hemoglobin 11.8 G/DL (12.0-16.0) L Hematocrit 38.6 % (37.0-47.0) Mean Corpuscular Volume 86 FL (80-99) Mean Corpuscular Hemoglobin 26.3 PG (27.0-31.0) L Mean Corpuscular Hemoglobin Concent 30.4 G/DL (32.0-36.0) L Red Cell Distribution Width 16.4 % (11.6-14.8) H Platelet Count 371 K/UL (150-450) Mean Platelet Volume 6.8 FL (6.5-10.1) Neutrophils (%) (Auto) 66.5 % (45.0-75.0) Lymphocytes (%) (Auto) 20.4 % (20.0-45.0) Monocytes (%) (Auto) 10.9 % (1.0-10.0) H Eosinophils (%) (Auto) 1.5 % (0.0-3.0) Basophils (%) (Auto) 0.7 % (0.0-2.0) Sodium Level 138 mEQ/L (135-145) Potassium Level 3.2 mEQ/L (3.4-4.9) L Chloride Level 100 mEQ/L (98-107) Carbon Dioxide Level 25 mEQ/L (20-30) Anion Gap 13 (5-15) Blood Urea Nitrogen 15 mg/dL (7-23) Creatinine 0.8 mg/dL (0.5-0.9) Estimat Glomerular Filtration Rate > 60 mL/min (>60) Glucose Level 103 mg/dL (74-106) Calcium Level 8.9 mg/dL (8.6-10.2) Current Medications Medications (Trade) Dose Ordered Sig/Vaibhav Route PRN Reason Start Time Stop Time Status Last Admin Dose Admin Acetaminophen (Tylenol) 650 mg Q4H PRN ORAL fever 08/15/16 14:45 09/14/16 14:44 Al Hydroxide/Mg Hydroxide (Mylanta II) 30 ml Q6H PRN ORAL dyspepsia 08/15/16 14:45 09/14/16 14:44 Albuterol/ Ipratropium (DuoNeb 0.5-3(2.5)mg/3ml) 3 ml Q4HRT PRN HHN sob 08/15/16 18:30 08/20/16 18:29 08/15/16 21:40 Dextrose (Dextrose 50%) STAT PRN IV Hypoglycemia 08/15/16 14:45 09/14/16 14:44 Dextrose/Sodium Chloride (D5 0.45% NS) 1,000 ml @ 75 mls/hr [id number] IV 08/15/16 15:00 09/14/16 14:59 08/20/16 11:07 Diphenhydramine HCl (Benadryl) 25 mg Q6H PRN ORAL Itching/Pruritis 08/15/16 14:45 09/14/16 14:44 Docusate Sodium (Colace) 100 mg THREE TIMES A DAY ORAL 08/17/16 13:00 09/16/16 12:59 08/20/16 12:54 Duloxetine HCl (Cymbalta) 60 mg DAILY ORAL 08/16/16 09:00 09/15/16 08:59 08/20/16 09:33 Heparin Sodium (Porcine) (Heparin 5000 units/ml) 5,000 units EVERY 12 HOURS SUBQ 08/15/16 21:00 09/14/16 20:59 08/20/16 09:31 Hydromorphone HCl (Dilaudid) 1 mg Q4H PRN IVP PAIN 4-10 08/19/16 14:00 08/26/16 13:59 08/20/16 13:42 Levetiracetam (Keppra) 1,500 mg TWICE A DAY ORAL 08/15/16 18:00 09/14/16 17:59 08/20/16 09:35 Mesalamine (Asacol) 800 mg THREE TIMES A DAY ORAL 08/16/16 09:00 09/15/16 08:59 08/20/16 12:54 Mirtazapine (Remeron) 30 mg BEDTIME ORAL 08/15/16 21:00 09/14/16 20:59 08/19/16 21:20 Nitroglycerin (Ntg) 0.4 mg Q5M X 3 DOSES PRN SL Prn Chest Pain 08/15/16 14:45 09/14/16 14:44 Ondansetron HCl (Zofran) 4 mg Q6H PRN IVP Nausea & Vomiting 08/15/16 14:45 09/14/16 14:44 08/20/16 09:37 Polyethylene Glycol (Miralax) 17 gm BEDTIME ORAL 08/17/16 21:00 09/16/16 20:59 08/18/16 22:33 Polyethylene Glycol (Miralax) 17 gm HSPRN PRN ORAL Constipation 08/15/16 14:45 09/14/16 14:44 Quetiapine Fumarate (SEROquel) 200 mg DAILY ORAL 08/16/16 09:00 09/15/16 08:59 08/20/16 09:33 Temazepam (Restoril) 15 mg HSPRN PRN ORAL Insomnia 08/15/16 14:45 08/22/16 14:44 08/15/16 22:10 Topiramate 25 mg 25 mg TWICE A DAY ORAL 08/15/16 18:00 09/14/16 17:59 08/20/16 09:34 Darrel Golden M.D. Aug 20, 2016 17:34
[2016-08-20 19:00] VITALS: BP 118/61
[2016-08-20] MEDS: Miralax 17gm pkt ORAL SCH (20:35)
--- NOTE | 2016-08-20 20:48 | Progress Note ---
DATE: 08/19/2016 PSYCHOTHERAPY CONSULTATION PROGRESS NOTE CONSULTING PHYSICIAN: Dilshad Abel M.D. TREATING ATTENDING: Barber Dial D.O. SUBJECTIVE: The patient is a 65-year-old female. This patient has been very agitated, irritable, confused, anxious, and depressed. The patient states that her anxiety and depression always fluctuate as she has "good days and bad days." The patient states that she is having difficulty sleeping and feeling restless. PLAN: This clinician assessed the patient. This clinician provided the patient with supportive psychotherapy, reality orientation, and coping skills. Encouraging the patient to participate in treatment as well as with medication regimen. Continue with medication management and behavioral management. This clinician has reviewed the patient's chart. Discussed the treatment with nursing staff. Dilshad Abel PsyD. DR: ARIANNA JOB#: [id number] CC:
[2016-08-21] VITALS: BP 146/87
[2016-08-21] MEDS: D5 1/2NS 1,000 ML IV SCH ×2 (00:12→16:09)
[2016-08-21 04:00] VITALS: BP 128/72
[2016-08-21] MEDS: HYDROmorphone 1mg/ml Carpuject IVP PRN ×4 (05:00→22:24)
[2016-08-21 07:58] VITALS: BP 146/80
[2016-08-21] MEDS: Docusate 100mg cap ORAL SCH ×3 (09:00→17:38)
[2016-08-21] MEDS: Heparin 5000 units/ml inj SUBQ SCH ×2 (09:14→20:18)
[2016-08-21] MEDS: Topiramate 25mg tab ORAL SCH ×2 (09:14→17:39)
[2016-08-21] MEDS: DULoxetine 30mg cap ORAL SCH (09:15)
[2016-08-21] MEDS: QUEtiapine 200mg tab ORAL SCH (09:18)
[2016-08-21 10:13] LABS: BASOPHILS % (AUTO) 0.9 % (0.0-2.0); EOSINOPHILS % (AUTO) 0.8 % (0.0-3.0); LYMPHOCYTES % (AUTO) 19.5 % (20.0-45.0); MEAN CORPUSCULAR HEMOGLOBIN 26.2 PG (27.0-31.0); MEAN CORPUSCULAR HGB CONC 30.3 G/DL (32.0-36.0); MEAN CORPUSCULAR VOLUME 86 FL (80-99); MEAN PLATELET VOLUME 6.9 FL (6.5-10.1); MONOCYTES % (AUTO) 8.9 % (1.0-10.0); NEUTROPHILS % (AUTO) 69.9 % (45.0-75.0); PLATELET COUNT 341 K/UL (150-450); RED BLOOD COUNT 4.63 M/UL (4.20-5.40); WHITE BLOOD COUNT 13.6 K/UL (4.8-10.8)
--- NOTE | 2016-08-21 10:25 | GI Progress Note ---
Assessment/Plan Problems: (1) Abdominal pain ICD Codes: R10.9 - Unspecified abdominal pain SNOMED: 55262201 (2) Crohn's disease ICD Codes: K50.90 - Crohn's disease SNOMED: 14030893 (3) Colitis ICD Codes: K52.9 - Noninfective gastroenteritis and colitis, unspecified SNOMED: 742003571 (4) Abdominal pain (5) Anemia (6) Nausea and vomiting (7) Constipation Status: stable Status Narrative Discussed with Dr. Gallegos. Assessment/Plan APCT >> fecal retention mesalamine for Crohns BM x 1 s/p EGD/colon 2016 non functional implanted morphine pump LLQ ok for DC per GI standpoint cardiac diet Rx trial of Movantik for OIC >> patient responded well laxatives OB stool uncollected pain mgmt fu labs pt scheduled to be seen outpatient in [facility] next week Subjective Gastrointestinal/Abdominal: Reports: no symptoms Subjective feels better multiple BMs ready to go home Objective Last 24 Hour Vital Signs Date Time Temp Pulse Resp B/P Pulse Ox O2 Delivery O2 Flow Rate FiO2 08/21/16 07:58 97.6 92 21 146/80 95 Room Air 08/21/16 04:00 98.2 86 20 128/72 99 Room Air 08/21/16 00:00 98.0 70 20 146/87 100 Room Air 08/20/16 20:14 95 20 Room Air 08/20/16 19:00 97.0 90 18 118/61 98 Room Air 08/20/16 16:00 97.3 91 18 116/64 Room Air 08/20/16 12:00 97.5 86 18 131/71 98 Room Air Intake and Output 08/20/16 08/21/16 19:00 07:00 Intake Total 1330 ml 1185 ml Balance 1330 ml 1185 ml Intake Oral 580 ml 360 ml IV Total 750 ml 825 ml # Voids 2 5 # Bowel Movements 1 Laboratory Tests Test 08/21/16 09:30 White Blood Count 13.6 K/UL (4.8-10.8) H Red Blood Count 4.63 M/UL (4.20-5.40) Hemoglobin 12.1 G/DL (12.0-16.0) Hematocrit 39.9 % (37.0-47.0) Mean Corpuscular Volume 86 FL (80-99) Mean Corpuscular Hemoglobin 26.2 PG (27.0-31.0) L Mean Corpuscular Hemoglobin Concent 30.3 G/DL (32.0-36.0) L Red Cell Distribution Width 17.0 % (11.6-14.8) H Platelet Count 341 K/UL (150-450) Mean Platelet Volume 6.9 FL (6.5-10.1) Neutrophils (%) (Auto) 69.9 % (45.0-75.0) Lymphocytes (%) (Auto) 19.5 % (20.0-45.0) L Monocytes (%) (Auto) 8.9 % (1.0-10.0) Eosinophils (%) (Auto) 0.8 % (0.0-3.0) Basophils (%) (Auto) 0.9 % (0.0-2.0) Sodium Level Pending Potassium Level Pending Chloride Level Pending Carbon Dioxide Level Pending Blood Urea Nitrogen Pending Creatinine Pending Estimat Glomerular Filtration Rate Pending Glucose Level Pending Calcium Level Pending Height (Feet): 5 Height (Inches): 6.00 Weight (Pounds): 164 General Appearance: no apparent distress, alert Cardiovascular: normal rate Respiratory/Chest: normal breath sounds, no respiratory distress Abdominal Exam: normal bowel sounds, non tender, soft Extremities: normal range of motion Tara Scott N.P. Aug 21, 2016 10:25
[2016-08-21 10:37] LABS: ANION GAP 16 (5-15); CALCIUM 8.7 mg/dL (8.6-10.2); CARBON DIOXIDE 21 mEQ/L (20-30); CHLORIDE 97 mEQ/L (98-107); CREATININE 0.8 mg/dL (0.5-0.9); GLOMERULAR FILTRATION RATE > 60 mL/min (>60); HEMOLYSIS 19; POTASSIUM 3.8 mEQ/L (3.4-4.9); SODIUM 134 mEQ/L (135-145)
[2016-08-21 11:46] VITALS: BP 111/68
--- NOTE | 2016-08-21 14:19 | Pulmonology Progress Note ---
Assessment/Plan Problems: (1) Interstitial lung disease (2) Sepsis (3) Emphysema (4) Leukocytosis (5) Colitis (6) Acute encephalopathy (7) Hx SBO Assessment/Plan cxr unchged off antibiotics improivng titrate fo2 to sat of 92% all cultures negative sofar all notes and meds reviewed. ok to go home Subjective ROS Limited/Unobtainable: No Interval Events: no new complains Allergies: Coded Allergies: No Known Allergies (Verified , 05/21/06) Objective Last 24 Hour Vital Signs Date Time Temp Pulse Resp B/P Pulse Ox O2 Delivery O2 Flow Rate FiO2 08/21/16 11:46 98.7 85 20 111/68 97 Room Air 08/21/16 07:58 97.6 92 21 146/80 95 Room Air 08/21/16 04:00 98.2 86 20 128/72 99 Room Air 08/21/16 00:00 98.0 70 20 146/87 100 Room Air 08/20/16 20:14 95 20 Room Air 08/20/16 19:00 97.0 90 18 118/61 98 Room Air 08/20/16 16:00 97.3 91 18 116/64 Room Air Intake and Output 08/20/16 08/21/16 19:00 07:00 Intake Total 1330 ml 1185 ml Balance 1330 ml 1185 ml Intake Oral 580 ml 360 ml IV Total 750 ml 825 ml # Voids 2 5 # Bowel Movements 1 General Appearance: WD/WN HEENT: normocephalic, atraumatic Respiratory/Chest: chest wall non-tender, lungs clear Cardiovascular: normal peripheral pulses, regular rhythm Genitourinary: normal external genitalia Extremities: no clubbing Neurologic/Psychiatric: hand bender II-XII grossly normal Microbiology Date/Time Source Procedure Growth Status 08/19/16 06:50 Stool Clostridium difficile Toxin Assay - Final Complete Laboratory Tests 08/21/16 09:30: White Blood Count 13.6H, Red Blood Count 4.63, Hemoglobin 12.1, Hematocrit 39.9 , Mean Corpuscular Volume 86, Mean Corpuscular Hemoglobin 26.2L, Mean Corpuscular Hemoglobin Concent 30.3L, Red Cell Distribution Width 17.0H, Platelet Count 341, Mean Platelet Volume 6.9, Neutrophils (%) (Auto) 69.9, Lymphocytes (%) (Auto) 19.5L, Monocytes (%) (Auto) 8.9, Eosinophils (%) (Auto) 0.8, Basophils (%) (Auto) 0.9, Sodium Level 134L, Potassium Level 3.8, Chloride Level 97L, Carbon Dioxide Level 21, Anion Gap 16H, Blood Urea Nitrogen 9, Creatinine 0.8, Estimat Glomerular Filtration Rate > 60, Glucose Level 104, Calcium Level 8.7 Current Medications Medications (Trade) Dose Ordered Sig/Vaibhav Route PRN Reason Start Time Stop Time Status Last Admin Dose Admin Acetaminophen (Tylenol) 650 mg Q4H PRN ORAL fever 08/15/16 14:45 09/14/16 14:44 Al Hydroxide/Mg Hydroxide (Mylanta II) 30 ml Q6H PRN ORAL dyspepsia 08/15/16 14:45 09/14/16 14:44 Dextrose (Dextrose 50%) STAT PRN IV Hypoglycemia 08/15/16 14:45 09/14/16 14:44 Dextrose/Sodium Chloride (D5 0.45% NS) 1,000 ml @ 75 mls/hr [id number] IV 08/15/16 15:00 09/14/16 14:59 08/21/16 00:12 Diphenhydramine HCl (Benadryl) 25 mg Q6H PRN ORAL Itching/Pruritis 08/15/16 14:45 09/14/16 14:44 08/21/16 00:19 Docusate Sodium (Colace) 100 mg THREE TIMES A DAY ORAL 08/17/16 13:00 09/16/16 12:59 08/20/16 17:40 Duloxetine HCl (Cymbalta) 60 mg DAILY ORAL 08/16/16 09:00 09/15/16 08:59 08/21/16 09:15 Heparin Sodium (Porcine) (Heparin 5000 units/ml) 5,000 units EVERY 12 HOURS SUBQ 08/15/16 21:00 09/14/16 20:59 08/21/16 09:14 Hydromorphone HCl (Dilaudid) 1 mg Q4H PRN IVP PAIN 4-10 08/19/16 14:00 08/26/16 13:59 08/21/16 09:18 Levetiracetam (Keppra) 1,500 mg TWICE A DAY ORAL 08/15/16 18:00 09/14/16 17:59 08/21/16 09:18 Mesalamine (Asacol) 800 mg THREE TIMES A DAY ORAL 08/16/16 09:00 09/15/16 08:59 08/21/16 12:24 Mirtazapine (Remeron) 30 mg BEDTIME ORAL 08/15/16 21:00 09/14/16 20:59 08/20/16 20:36 Nitroglycerin (Ntg) 0.4 mg Q5M X 3 DOSES PRN SL Prn Chest Pain 08/15/16 14:45 09/14/16 14:44 Ondansetron HCl (Zofran) 4 mg Q6H PRN IVP Nausea & Vomiting 08/15/16 14:45 09/14/16 14:44 08/20/16 09:37 Polyethylene Glycol (Miralax) 17 gm BEDTIME ORAL 08/17/16 21:00 09/16/16 20:59 08/20/16 20:35 Polyethylene Glycol (Miralax) 17 gm HSPRN PRN ORAL Constipation 08/15/16 14:45 09/14/16 14:44 Quetiapine Fumarate (SEROquel) 200 mg DAILY ORAL 08/16/16 09:00 09/15/16 08:59 08/21/16 09:18 Temazepam (Restoril) 15 mg HSPRN PRN ORAL Insomnia 08/15/16 14:45 08/22/16 14:44 08/15/16 22:10 Topiramate 25 mg 25 mg TWICE A DAY ORAL 08/15/16 18:00 09/14/16 17:59 08/21/16 09:14 DWAYNE SOTO Aug 21, 2016 14:19
[2016-08-21 16:00] VITALS: BP 122/64
--- NOTE | 2016-08-21 16:21 | General Progress Note ---
Assessment/Plan Problem List: (1) Abdominal pain (2) Constipation (3) Opioid dependence ICD Codes: F11.20 - Opioid dependence SNOMED: 77798063 (4) Shortness of breath (5) Emphysema ICD Codes: J43.9 - Emphysema SNOMED: 91254804 (6) COPD exacerbation ICD Codes: J44.1 - COPD exacerbation SNOMED: 660778260 (7) CHF (congestive heart failure) ICD Codes: I50.9 - Heart failure, unspecified SNOMED: 68802408 (8) Nausea and vomiting (9) Crohns disease ICD Codes: K50.90 - Crohns disease SNOMED: 61076528 (10) UTI (urinary tract infection) ICD Codes: N39.0 - Urinary tract infection, site not specified SNOMED: 98993719 Status: stable, progressing, tolerating diet Assessment/Plan ot pt diet gi f/u abx o2 pulm tx pain control cbc bmp am Subjective Constitutional: Reports: weakness Allergies: Coded Allergies: No Known Allergies (Verified , 05/21/06) All Systems: reviewed and negative except above Subjective sleepy calm Objective Last 24 Hour Vital Signs Date Time Temp Pulse Resp B/P Pulse Ox O2 Delivery O2 Flow Rate FiO2 08/21/16 16:00 97.3 85 20 122/64 97 Room Air 08/21/16 11:46 98.7 85 20 111/68 97 Room Air 08/21/16 07:58 97.6 92 21 146/80 95 Room Air 08/21/16 04:00 98.2 86 20 128/72 99 Room Air 08/21/16 00:00 98.0 70 20 146/87 100 Room Air 08/20/16 20:14 95 20 Room Air 08/20/16 19:00 97.0 90 18 118/61 98 Room Air Intake and Output 08/20/16 08/21/16 19:00 07:00 Intake Total 1330 ml 1185 ml Balance 1330 ml 1185 ml Intake Oral 580 ml 360 ml IV Total 750 ml 825 ml # Voids 2 5 # Bowel Movements 1 Laboratory Tests 08/21/16 09:30: White Blood Count 13.6H, Red Blood Count 4.63, Hemoglobin 12.1, Hematocrit 39.9 , Mean Corpuscular Volume 86, Mean Corpuscular Hemoglobin 26.2L, Mean Corpuscular Hemoglobin Concent 30.3L, Red Cell Distribution Width 17.0H, Platelet Count 341, Mean Platelet Volume 6.9, Neutrophils (%) (Auto) 69.9, Lymphocytes (%) (Auto) 19.5L, Monocytes (%) (Auto) 8.9, Eosinophils (%) (Auto) 0.8, Basophils (%) (Auto) 0.9, Sodium Level 134L, Potassium Level 3.8, Chloride Level 97L, Carbon Dioxide Level 21, Anion Gap 16H, Blood Urea Nitrogen 9, Creatinine 0.8, Estimat Glomerular Filtration Rate > 60, Glucose Level 104, Calcium Level 8.7 Height (Feet): 5 Height (Inches): 6.00 Weight (Pounds): 164 General Appearance: lethargic EENT: normal ENT inspection Neck: normal alignment Cardiovascular: normal peripheral pulses, normal rate, regular rhythm Respiratory/Chest: chest wall non-tender, lungs clear, normal breath sounds Abdomen: normal bowel sounds, non tender, soft Extremities: normal inspection Edema: no edema noted Arm (L), no edema noted Arm (R), no edema noted Leg (L), no edema noted Leg (R), no edema noted Pedal (L), no edema noted Pedal (R), no edema noted Generalized Neurologic: responsive, motor weakness Skin: normal pigmentation, warm/dry BAYRON BENEDICT Aug 21, 2016 16:21
[2016-08-21 19:00] VITALS: BP 133/65
--- NOTE | 2016-08-21 19:33 | Infectious Diseases Prog Note ---
Assessment/Plan Problems: (1) Ileus Assessment & Plan: suspect due to prior surgeries , continue supportive care , management as per GI (2) UTI (urinary tract infection) Assessment & Plan: urine culture showed contaminant [place]. zosyn was discontinued (3) Sepsis Assessment & Plan: ruled out with negative blood culture , off zosyn , will monitor off antibiotics. (4) Abdominal pain Assessment & Plan: continue pain management as per primary, check CT abdomen (5) Crohn's disease Assessment & Plan: GI is following , continue meds (6) Nausea and vomiting Assessment & Plan: due to ileus , continue supportive care Subjective Constitutional: Denies: anorexia, chills, drenching sweats, fatigue, fever, no symptoms, other Respiratory: Denies: dry cough, no symptoms, other, productive cough, shortness of breath Gastrointestinal/Abdominal: Reports: bloating Genitourinary: Denies: dysuria, frequency, hematuria, last menstrual period, no symptoms, nocturia, other, vaginal bleed/discharge Neurologic: Denies: confusion, headache, no symptoms, numbness, other, weakness Psychiatric: Denies: anxiety, depression, no symptoms, other Skin: Denies: no symptoms, other, rash, ulcer Endocrine: Denies: feels cold, feels warm, no symptoms, other Hematologic: Denies: bleeding, no symptoms, other, swollen lymph nodes Musculoskeletal: Denies: no symptoms, other, pain, stiffness, swelling Allergies: Coded Allergies: No Known Allergies (Verified , 05/21/06) Subjective tolerated liquid diet Objective Vital Signs Last 24 Hour Vital Signs Date Time Temp Pulse Resp B/P Pulse Ox O2 Delivery O2 Flow Rate FiO2 08/21/16 16:00 97.3 85 20 122/64 97 Room Air 08/21/16 11:46 98.7 85 20 111/68 97 Room Air 08/21/16 07:58 97.6 92 21 146/80 95 Room Air 08/21/16 04:00 98.2 86 20 128/72 99 Room Air 08/21/16 00:00 98.0 70 20 146/87 100 Room Air 08/20/16 20:14 95 20 Room Air Height (Feet): 5 Height (Inches): 6.00 Weight (Pounds): 164 General Appearance: WD/WN, no acute distress HEENT: normocephalic, atraumatic, anicteric, mucous membranes moist, PERRL Respiratory/Chest: chest wall non-tender, lungs clear, normal breath sounds, no respiratory distress, no accessory muscle use Cardiovascular: normal peripheral pulses, normal rate, regular rhythm, no gallop/murmur, no JVD Abdomen: soft, non tender, no organomegaly, no mass, hypoactive bowel sounds, distended, tender Extremities: no cyanosis, no clubbing Skin: no rash, no lesions Microbiology Date/Time Source Procedure Growth Status 08/19/16 06:50 Stool Clostridium difficile Toxin Assay - Final Complete Laboratory Tests Test 08/21/16 09:30 White Blood Count 13.6 K/UL (4.8-10.8) H Red Blood Count 4.63 M/UL (4.20-5.40) Hemoglobin 12.1 G/DL (12.0-16.0) Hematocrit 39.9 % (37.0-47.0) Mean Corpuscular Volume 86 FL (80-99) Mean Corpuscular Hemoglobin 26.2 PG (27.0-31.0) L Mean Corpuscular Hemoglobin Concent 30.3 G/DL (32.0-36.0) L Red Cell Distribution Width 17.0 % (11.6-14.8) H Platelet Count 341 K/UL (150-450) Mean Platelet Volume 6.9 FL (6.5-10.1) Neutrophils (%) (Auto) 69.9 % (45.0-75.0) Lymphocytes (%) (Auto) 19.5 % (20.0-45.0) L Monocytes (%) (Auto) 8.9 % (1.0-10.0) Eosinophils (%) (Auto) 0.8 % (0.0-3.0) Basophils (%) (Auto) 0.9 % (0.0-2.0) Sodium Level 134 mEQ/L (135-145) L Potassium Level 3.8 mEQ/L (3.4-4.9) Chloride Level 97 mEQ/L (98-107) L Carbon Dioxide Level 21 mEQ/L (20-30) Anion Gap 16 (5-15) H Blood Urea Nitrogen 9 mg/dL (7-23) Creatinine 0.8 mg/dL (0.5-0.9) Estimat Glomerular Filtration Rate > 60 mL/min (>60) Glucose Level 104 mg/dL (74-106) Calcium Level 8.7 mg/dL (8.6-10.2) Current Medications Medications (Trade) Dose Ordered Sig/Vaibhav Route PRN Reason Start Time Stop Time Status Last Admin Dose Admin Acetaminophen (Tylenol) 650 mg Q4H PRN ORAL fever 08/15/16 14:45 09/14/16 14:44 Al Hydroxide/Mg Hydroxide (Mylanta II) 30 ml Q6H PRN ORAL dyspepsia 08/15/16 14:45 09/14/16 14:44 Dextrose (Dextrose 50%) STAT PRN IV Hypoglycemia 08/15/16 14:45 09/14/16 14:44 Dextrose/Sodium Chloride (D5 0.45% NS) 1,000 ml @ 75 mls/hr [id number] IV 08/15/16 15:00 09/14/16 14:59 08/21/16 16:09 Diphenhydramine HCl (Benadryl) 25 mg Q6H PRN ORAL Itching/Pruritis 08/15/16 14:45 09/14/16 14:44 08/21/16 00:19 Docusate Sodium (Colace) 100 mg THREE TIMES A DAY ORAL 08/17/16 13:00 09/16/16 12:59 08/20/16 17:40 Duloxetine HCl (Cymbalta) 60 mg DAILY ORAL 08/16/16 09:00 09/15/16 08:59 08/21/16 09:15 Heparin Sodium (Porcine) (Heparin 5000 units/ml) 5,000 units EVERY 12 HOURS SUBQ 08/15/16 21:00 09/14/16 20:59 08/21/16 09:14 Hydromorphone HCl (Dilaudid) 1 mg Q4H PRN IVP PAIN 4-10 08/19/16 14:00 08/26/16 13:59 08/21/16 17:38 Levetiracetam (Keppra) 1,500 mg TWICE A DAY ORAL 08/15/16 18:00 09/14/16 17:59 08/21/16 17:38 Mesalamine (Asacol) 800 mg THREE TIMES A DAY ORAL 08/16/16 09:00 09/15/16 08:59 08/21/16 17:38 Mirtazapine (Remeron) 30 mg BEDTIME ORAL 08/15/16 21:00 09/14/16 20:59 08/20/16 20:36 Nitroglycerin (Ntg) 0.4 mg Q5M X 3 DOSES PRN SL Prn Chest Pain 08/15/16 14:45 09/14/16 14:44 Ondansetron HCl (Zofran) 4 mg Q6H PRN IVP Nausea & Vomiting 08/15/16 14:45 09/14/16 14:44 08/20/16 09:37 Polyethylene Glycol (Miralax) 17 gm BEDTIME ORAL 08/17/16 21:00 09/16/16 20:59 08/20/16 20:35 Polyethylene Glycol (Miralax) 17 gm HSPRN PRN ORAL Constipation 08/15/16 14:45 09/14/16 14:44 Quetiapine Fumarate (SEROquel) 200 mg DAILY ORAL 08/16/16 09:00 09/15/16 08:59 08/21/16 09:18 Temazepam (Restoril) 15 mg HSPRN PRN ORAL Insomnia 08/15/16 14:45 08/22/16 14:44 08/15/16 22:10 Topiramate 25 mg 25 mg TWICE A DAY ORAL 08/15/16 18:00 09/14/16 17:59 08/21/16 17:39 Darrel Golden M.D. Aug 21, 2016 19:33
[2016-08-21] MEDS: Miralax 17gm pkt ORAL SCH (20:13)
--- NOTE | 2016-08-21 22:07 | Progress Note ---
DATE: 08/20/2016 PSYCHOTHERAPY CONSULTATION PROGRESS NOTE TREATING ATTENDING PHYSICIAN: Barber Dial D.O. SUBJECTIVE: The patient is a 65-year-old female. This patient has been depressed and helpless. The patient has been feeling lethargic and tired. She states her anxiety, bipolar, depression remains high however she denies suicidal or homicidal thoughts of ideation. The patient feels that her anxiety and depression . She that she is feeling very tired and fatigued. PLAN: This clinician assessed the patient. Provided the patient with reality orientation and supportive psychotherapy. Encouraging the patient to participate in treatment as well as with medication management. Continue with medication management and behavioral management. This clinician has reviewed the patient's chart. Discussed the treatment with nursing staff. Dilshad Abel PsyD. DR: Evon JOB#: [id number] CC:
[2016-08-22] VITALS (7 sets, daily range): BP systolic 105–138; BP diastolic 67–78
[2016-08-22] MEDS: HYDROmorphone 1mg/ml Carpuject IVP PRN ×5 (02:57→22:23)
[2016-08-22] MEDS: D5 1/2NS 1,000 ML IV SCH (07:00)
[2016-08-22 07:28] LABS: ANION GAP 9 (5-15); CALCIUM 9.1 mg/dL (8.6-10.2); CARBON DIOXIDE 30 mEQ/L (20-30); CHLORIDE 97 mEQ/L (98-107); CREATININE 0.7 mg/dL (0.5-0.9); GLOMERULAR FILTRATION RATE > 60 mL/min (>60); HEMOLYSIS 2; POTASSIUM 2.8 mEQ/L (3.4-4.9); SODIUM 136 mEQ/L (135-145)
[2016-08-22 07:30] LABS: BASOPHILS % (AUTO) 0.4 % (0.0-2.0); EOSINOPHILS % (AUTO) 1.3 % (0.0-3.0); LYMPHOCYTES % (AUTO) 19.7 % (20.0-45.0); MEAN CORPUSCULAR HEMOGLOBIN 26.2 PG (27.0-31.0); MEAN CORPUSCULAR HGB CONC 30.4 G/DL (32.0-36.0); MEAN CORPUSCULAR VOLUME 86 FL (80-99); MEAN PLATELET VOLUME 6.7 FL (6.5-10.1); MONOCYTES % (AUTO) 9.3 % (1.0-10.0); NEUTROPHILS % (AUTO) 69.3 % (45.0-75.0); PLATELET COUNT 381 K/UL (150-450); RED BLOOD COUNT 4.37 M/UL (4.20-5.40); RED CELL DISTRIBUTION WIDTH 16.9 % (11.6-14.8); WHITE BLOOD COUNT 13.4 K/UL (4.8-10.8)
[2016-08-22] MEDS: DULoxetine 30mg cap ORAL SCH (08:09)
[2016-08-22] MEDS: QUEtiapine 200mg tab ORAL SCH (08:10)
[2016-08-22] MEDS: Topiramate 25mg tab ORAL SCH ×2 (08:10→17:52)
[2016-08-22] MEDS: Docusate 100mg cap ORAL SCH ×3 (08:10→17:55)
[2016-08-22] MEDS: Heparin 5000 units/ml inj SUBQ SCH ×2 (08:11→21:00)
--- NOTE | 2016-08-22 08:54 | General Progress Note ---
Assessment/Plan Problem List: (1) Abdominal pain (2) Constipation (3) Opioid dependence ICD Codes: F11.20 - Opioid dependence SNOMED: 48487785 (4) Shortness of breath (5) Emphysema ICD Codes: J43.9 - Emphysema SNOMED: 11403876 (6) COPD exacerbation ICD Codes: J44.1 - COPD exacerbation SNOMED: 488942411 (7) CHF (congestive heart failure) ICD Codes: I50.9 - Heart failure, unspecified SNOMED: 11105278 (8) Nausea and vomiting (9) Crohns disease ICD Codes: K50.90 - Crohns disease SNOMED: 62262505 (10) UTI (urinary tract infection) ICD Codes: N39.0 - Urinary tract infection, site not specified SNOMED: 74747965 Status: stable, progressing, tolerating diet Assessment/Plan ot pt diet gi f/u abx o2 pulm tx pain control gi id f/u cbc bmp am Subjective Constitutional: Reports: weakness Allergies: Coded Allergies: No Known Allergies (Verified , 05/21/06) All Systems: reviewed and negative except above Subjective sleepy calm Objective Last 24 Hour Vital Signs Date Time Temp Pulse Resp B/P Pulse Ox O2 Delivery O2 Flow Rate FiO2 08/22/16 08:02 98.2 91 20 137/74 98 Room Air 08/22/16 04:00 96.6 86 20 127/67 100 Room Air 08/22/16 00:00 98.2 87 20 134/78 100 Room Air 08/21/16 19:00 96.8 85 20 133/65 97 Room Air 08/21/16 16:00 97.3 85 20 122/64 97 Room Air 08/21/16 11:46 98.7 85 20 111/68 97 Room Air Intake and Output 08/21/16 08/22/16 19:00 07:00 Intake Total 1155 ml 1020 ml Balance 1155 ml 1020 ml Intake Oral 480 ml 120 ml IV Total 675 ml 900 ml # Voids 4 4 # Bowel Movements 4 1 Laboratory Tests 08/21/16 09:30: White Blood Count 13.6H, Red Blood Count 4.63, Hemoglobin 12.1, Hematocrit 39.9 , Mean Corpuscular Volume 86, Mean Corpuscular Hemoglobin 26.2L, Mean Corpuscular Hemoglobin Concent 30.3L, Red Cell Distribution Width 17.0H, Platelet Count 341, Mean Platelet Volume 6.9, Neutrophils (%) (Auto) 69.9, Lymphocytes (%) (Auto) 19.5L, Monocytes (%) (Auto) 8.9, Eosinophils (%) (Auto) 0.8, Basophils (%) (Auto) 0.9, Sodium Level 134L, Potassium Level 3.8, Chloride Level 97L, Carbon Dioxide Level 21, Anion Gap 16H, Blood Urea Nitrogen 9, Creatinine 0.8, Estimat Glomerular Filtration Rate > 60, Glucose Level 104, Calcium Level 8.7 08/22/16 06:05: White Blood Count 13.4H, Red Blood Count 4.37, Hemoglobin 11.5L, Hematocrit 37.7 , Mean Corpuscular Volume 86, Mean Corpuscular Hemoglobin 26.2L, Mean Corpuscular Hemoglobin Concent 30.4L, Red Cell Distribution Width 16.9H, Platelet Count 381, Mean Platelet Volume 6.7, Neutrophils (%) (Auto) 69.3, Lymphocytes (%) (Auto) 19.7L, Monocytes (%) (Auto) 9.3, Eosinophils (%) (Auto) 1.3, Basophils (%) (Auto) 0.4, Sodium Level 136, Potassium Level 2.8L, Chloride Level 97L, Carbon Dioxide Level 30, Anion Gap 9, Blood Urea Nitrogen 6L, Creatinine 0.7, Estimat Glomerular Filtration Rate > 60, Glucose Level 109H, Calcium Level 9.1 Height (Feet): 5 Height (Inches): 6.00 Weight (Pounds): 164 General Appearance: lethargic EENT: normal ENT inspection Neck: normal alignment Cardiovascular: normal peripheral pulses, normal rate, regular rhythm Respiratory/Chest: chest wall non-tender, lungs clear, normal breath sounds Abdomen: normal bowel sounds, non tender, soft Extremities: normal inspection Edema: no edema noted Arm (L), no edema noted Arm (R), no edema noted Leg (L), no edema noted Leg (R), no edema noted Pedal (L), no edema noted Pedal (R), no edema noted Generalized Neurologic: responsive, motor weakness Skin: normal pigmentation, warm/dry BAYRON BENEDICT Aug 22, 2016 08:54
--- NOTE | 2016-08-22 13:14 | Pulmonology Progress Note ---
Assessment/Plan Problems: (1) Interstitial lung disease (2) Sepsis (3) Emphysema (4) Leukocytosis (5) Colitis (6) Acute encephalopathy (7) Hx SBO Assessment/Plan cxr unchged off antibiotics improivng titrate fo2 to sat of 92% all cultures negative sofar all notes and meds reviewed. dc IV fluids ok to go home Subjective ROS Limited/Unobtainable: No Constitutional: Reports: no symptoms HEENT: Repors: no symptoms Respiratory: Reports: no symptoms Allergies: Coded Allergies: No Known Allergies (Verified , 05/21/06) Objective Last 24 Hour Vital Signs Date Time Temp Pulse Resp B/P Pulse Ox O2 Delivery O2 Flow Rate FiO2 08/22/16 12:02 98.4 95 20 138/70 98 Room Air 08/22/16 08:40 98.2 08/22/16 08:02 98.2 91 20 137/74 98 Room Air 08/22/16 04:00 96.6 86 20 127/67 100 Room Air 08/22/16 00:00 98.2 87 20 134/78 100 Room Air 08/21/16 19:00 96.8 85 20 133/65 97 Room Air 08/21/16 16:00 97.3 85 20 122/64 97 Room Air Intake and Output 08/21/16 08/22/16 19:00 07:00 Intake Total 1155 ml 1020 ml Balance 1155 ml 1020 ml Intake Oral 480 ml 120 ml IV Total 675 ml 900 ml # Voids 4 4 # Bowel Movements 4 1 General Appearance: WD/WN HEENT: normocephalic, atraumatic Respiratory/Chest: chest wall non-tender, lungs clear, normal breath sounds Cardiovascular: normal peripheral pulses, normal rate Abdomen: normal bowel sounds, soft, non tender Genitourinary: normal external genitalia Extremities: no cyanosis Skin: no rash Laboratory Tests 08/22/16 06:05: White Blood Count 13.4H, Red Blood Count 4.37, Hemoglobin 11.5L, Hematocrit 37.7 , Mean Corpuscular Volume 86, Mean Corpuscular Hemoglobin 26.2L, Mean Corpuscular Hemoglobin Concent 30.4L, Red Cell Distribution Width 16.9H, Platelet Count 381, Mean Platelet Volume 6.7, Neutrophils (%) (Auto) 69.3, Lymphocytes (%) (Auto) 19.7L, Monocytes (%) (Auto) 9.3, Eosinophils (%) (Auto) 1.3, Basophils (%) (Auto) 0.4, Sodium Level 136, Potassium Level 2.8L, Chloride Level 97L, Carbon Dioxide Level 30, Anion Gap 9, Blood Urea Nitrogen 6L, Creatinine 0.7, Estimat Glomerular Filtration Rate > 60, Glucose Level 109H, Calcium Level 9.1 Current Medications Medications (Trade) Dose Ordered Sig/Vaibhav Route PRN Reason Start Time Stop Time Status Last Admin Dose Admin Acetaminophen (Tylenol) 650 mg Q4H PRN ORAL fever 08/15/16 14:45 09/14/16 14:44 Al Hydroxide/Mg Hydroxide (Mylanta II) 30 ml Q6H PRN ORAL dyspepsia 08/15/16 14:45 09/14/16 14:44 Dextrose (Dextrose 50%) STAT PRN IV Hypoglycemia 08/15/16 14:45 09/14/16 14:44 Dextrose/Sodium Chloride (D5 0.45% NS) 1,000 ml @ 75 mls/hr [id number] IV 08/15/16 15:00 09/14/16 14:59 08/21/16 16:09 Diphenhydramine HCl (Benadryl) 25 mg Q6H PRN ORAL Itching/Pruritis 08/15/16 14:45 09/14/16 14:44 08/21/16 00:19 Docusate Sodium (Colace) 100 mg THREE TIMES A DAY ORAL 08/17/16 13:00 09/16/16 12:59 08/22/16 08:10 Duloxetine HCl (Cymbalta) 60 mg DAILY ORAL 08/16/16 09:00 09/15/16 08:59 08/22/16 08:09 Heparin Sodium (Porcine) (Heparin 5000 units/ml) 5,000 units EVERY 12 HOURS SUBQ 08/15/16 21:00 09/14/16 20:59 08/22/16 08:11 Hydromorphone HCl (Dilaudid) 1 mg Q4H PRN IVP PAIN 4-10 08/19/16 14:00 08/26/16 13:59 08/22/16 08:10 Levetiracetam (Keppra) 1,500 mg TWICE A DAY ORAL 08/15/16 18:00 09/14/16 17:59 08/22/16 08:10 Mesalamine (Asacol) 800 mg THREE TIMES A DAY ORAL 08/16/16 09:00 09/15/16 08:59 08/22/16 10:28 Mirtazapine (Remeron) 30 mg BEDTIME ORAL 08/15/16 21:00 09/14/16 20:59 08/21/16 20:18 Nitroglycerin (Ntg) 0.4 mg Q5M X 3 DOSES PRN SL Prn Chest Pain 08/15/16 14:45 09/14/16 14:44 Ondansetron HCl (Zofran) 4 mg Q6H PRN IVP Nausea & Vomiting 08/15/16 14:45 09/14/16 14:44 08/20/16 09:37 Polyethylene Glycol (Miralax) 17 gm BEDTIME ORAL 08/17/16 21:00 09/16/16 20:59 08/20/16 20:35 Polyethylene Glycol (Miralax) 17 gm HSPRN PRN ORAL Constipation 08/15/16 14:45 09/14/16 14:44 Quetiapine Fumarate (SEROquel) 200 mg DAILY ORAL 08/16/16 09:00 09/15/16 08:59 08/22/16 08:10 Temazepam (Restoril) 15 mg HSPRN PRN ORAL Insomnia 08/15/16 14:45 08/22/16 14:44 08/15/16 22:10 Topiramate 25 mg 25 mg TWICE A DAY ORAL 08/15/16 18:00 09/14/16 17:59 08/22/16 08:10 DWAYNE SOTO Aug 22, 2016 13:14
[2016-08-22] MEDS ORDERED: D5 1/2NS 1000ml IV ONE (13:28)
--- NOTE | 2016-08-22 16:36 | Infectious Diseases Prog Note ---
Assessment/Plan Problems: (1) Ileus Assessment & Plan: suspect due to prior surgeries , continue supportive care , management as per GI (2) UTI (urinary tract infection) Assessment & Plan: urine culture showed contaminant [place]. zosyn was discontinued (3) Sepsis Assessment & Plan: ruled out with negative blood culture , off zosyn , will monitor off antibiotics. (4) Abdominal pain Assessment & Plan: continue pain management as per primary, check CT abdomen (5) Crohn's disease Assessment & Plan: GI is following , continue meds (6) Nausea and vomiting Assessment & Plan: due to ileus , continue supportive care Subjective Constitutional: Denies: anorexia, chills, drenching sweats, fatigue, fever, no symptoms, other HEENT: Denies: congestion, coryza, dysphagia, hearing change, no symptoms, other, visual change Breasts: Denies: discharge, no symptoms, other, swelling, tenderness Cardiovascular: Denies: chest pain, dyspnea on exertion, no symptoms, other, palpitations Gastrointestinal/Abdominal: Denies: bloating, blood in stool, constipation, diarrhea, nausea, no symptoms, other, vomiting Genitourinary: Denies: dysuria, frequency, hematuria, last menstrual period, no symptoms, nocturia, other, vaginal bleed/discharge Neurologic: Denies: confusion, headache, no symptoms, numbness, other, weakness Psychiatric: Denies: anxiety, depression, no symptoms, other Skin: Denies: no symptoms, other, rash, ulcer Endocrine: Denies: feels cold, feels warm, no symptoms, other Hematologic: Denies: bleeding, no symptoms, other, swollen lymph nodes Allergies: Coded Allergies: No Known Allergies (Verified , 05/21/06) Subjective tolerated diet well Objective Vital Signs Last 24 Hour Vital Signs Date Time Temp Pulse Resp B/P Pulse Ox O2 Delivery O2 Flow Rate FiO2 08/22/16 15:58 97.9 89 18 123/68 100 Room Air 08/22/16 14:11 98.4 08/22/16 12:02 98.4 95 20 138/70 98 Room Air 08/22/16 08:02 98.2 91 20 137/74 98 Room Air 08/22/16 04:00 96.6 86 20 127/67 100 Room Air 08/22/16 00:00 98.2 87 20 134/78 100 Room Air 08/21/16 19:00 96.8 85 20 133/65 97 Room Air Height (Feet): 5 Height (Inches): 6.00 Weight (Pounds): 164 General Appearance: WD/WN, no acute distress HEENT: normocephalic, atraumatic, anicteric, mucous membranes moist Respiratory/Chest: chest wall non-tender, lungs clear, normal breath sounds, no respiratory distress, no accessory muscle use Cardiovascular: normal peripheral pulses, normal rate, regular rhythm, no gallop/murmur Abdomen: normal bowel sounds, soft, non tender, no organomegaly, non distended , no mass Extremities: no cyanosis, no clubbing Skin: no rash Laboratory Tests Test 08/22/16 06:05 White Blood Count 13.4 K/UL (4.8-10.8) H Red Blood Count 4.37 M/UL (4.20-5.40) Hemoglobin 11.5 G/DL (12.0-16.0) L Hematocrit 37.7 % (37.0-47.0) Mean Corpuscular Volume 86 FL (80-99) Mean Corpuscular Hemoglobin 26.2 PG (27.0-31.0) L Mean Corpuscular Hemoglobin Concent 30.4 G/DL (32.0-36.0) L Red Cell Distribution Width 16.9 % (11.6-14.8) H Platelet Count 381 K/UL (150-450) Mean Platelet Volume 6.7 FL (6.5-10.1) Neutrophils (%) (Auto) 69.3 % (45.0-75.0) Lymphocytes (%) (Auto) 19.7 % (20.0-45.0) L Monocytes (%) (Auto) 9.3 % (1.0-10.0) Eosinophils (%) (Auto) 1.3 % (0.0-3.0) Basophils (%) (Auto) 0.4 % (0.0-2.0) Sodium Level 136 mEQ/L (135-145) Potassium Level 2.8 mEQ/L (3.4-4.9) L Chloride Level 97 mEQ/L (98-107) L Carbon Dioxide Level 30 mEQ/L (20-30) Anion Gap 9 (5-15) Blood Urea Nitrogen 6 mg/dL (7-23) L Creatinine 0.7 mg/dL (0.5-0.9) Estimat Glomerular Filtration Rate > 60 mL/min (>60) Glucose Level 109 mg/dL (74-106) H Calcium Level 9.1 mg/dL (8.6-10.2) Current Medications Medications (Trade) Dose Ordered Sig/Vaibhav Route PRN Reason Start Time Stop Time Status Last Admin Dose Admin Acetaminophen (Tylenol) 650 mg Q4H PRN ORAL fever 08/15/16 14:45 09/14/16 14:44 Al Hydroxide/Mg Hydroxide (Mylanta II) 30 ml Q6H PRN ORAL dyspepsia 08/15/16 14:45 09/14/16 14:44 Dextrose (Dextrose 50%) STAT PRN IV Hypoglycemia 08/15/16 14:45 09/14/16 14:44 Diphenhydramine HCl (Benadryl) 25 mg Q6H PRN ORAL Itching/Pruritis 08/15/16 14:45 09/14/16 14:44 08/21/16 00:19 Docusate Sodium (Colace) 100 mg THREE TIMES A DAY ORAL 08/17/16 13:00 09/16/16 12:59 08/22/16 13:40 Duloxetine HCl (Cymbalta) 60 mg DAILY ORAL 08/16/16 09:00 09/15/16 08:59 08/22/16 08:09 Heparin Sodium (Porcine) (Heparin 5000 units/ml) 5,000 units EVERY 12 HOURS SUBQ 08/15/16 21:00 09/14/16 20:59 08/22/16 08:11 Hydromorphone HCl (Dilaudid) 1 mg Q4H PRN IVP PAIN 4-10 08/19/16 14:00 08/26/16 13:59 08/22/16 13:41 Levetiracetam (Keppra) 1,500 mg TWICE A DAY ORAL 08/15/16 18:00 09/14/16 17:59 08/22/16 08:10 Mesalamine (Asacol) 800 mg THREE TIMES A DAY ORAL 08/16/16 09:00 09/15/16 08:59 08/22/16 13:40 Mirtazapine (Remeron) 30 mg BEDTIME ORAL 08/15/16 21:00 09/14/16 20:59 08/21/16 20:18 Nitroglycerin (Ntg) 0.4 mg Q5M X 3 DOSES PRN SL Prn Chest Pain 08/15/16 14:45 09/14/16 14:44 Ondansetron HCl (Zofran) 4 mg Q6H PRN IVP Nausea & Vomiting 08/15/16 14:45 09/14/16 14:44 08/20/16 09:37 Polyethylene Glycol (Miralax) 17 gm BEDTIME ORAL 08/17/16 21:00 09/16/16 20:59 08/20/16 20:35 Polyethylene Glycol (Miralax) 17 gm HSPRN PRN ORAL Constipation 08/15/16 14:45 09/14/16 14:44 Quetiapine Fumarate (SEROquel) 200 mg DAILY ORAL 08/16/16 09:00 09/15/16 08:59 08/22/16 08:10 Topiramate (Topamax) 25 mg TWICE A DAY ORAL 08/15/16 18:00 09/14/16 17:59 08/22/16 08:10 Darrel Golden M.D. Aug 22, 2016 16:36
[2016-08-22] MEDS: Miralax 17gm pkt ORAL SCH (21:00)
[2016-08-23] MEDS: HYDROmorphone 1mg/ml Carpuject IVP PRN ×5 (03:47→21:52)
[2016-08-23 04:00] VITALS: BP 123/65
[2016-08-23 07:50] VITALS: BP 120/67
[2016-08-23 07:51] LABS: BASOPHILS % (AUTO) 0.3 % (0.0-2.0); EOSINOPHILS % (AUTO) 0.8 % (0.0-3.0); LYMPHOCYTES % (AUTO) 13.4 % (20.0-45.0); MEAN CORPUSCULAR HEMOGLOBIN 26.6 PG (27.0-31.0); MEAN CORPUSCULAR HGB CONC 31.2 G/DL (32.0-36.0); MEAN CORPUSCULAR VOLUME 85 FL (80-99); MEAN PLATELET VOLUME 7.2 FL (6.5-10.1); MONOCYTES % (AUTO) 8.2 % (1.0-10.0); NEUTROPHILS % (AUTO) 77.4 % (45.0-75.0); PLATELET COUNT 410 K/UL (150-450); RED CELL DISTRIBUTION WIDTH 16.9 % (11.6-14.8)
[2016-08-23] MEDS: DULoxetine 30mg cap ORAL SCH (08:06)
[2016-08-23] MEDS: Docusate 100mg cap ORAL SCH ×3 (08:06→17:11)
[2016-08-23] MEDS: Topiramate 25mg tab ORAL SCH ×2 (08:06→17:15)
[2016-08-23] MEDS: QUEtiapine 200mg tab ORAL SCH (08:07)
[2016-08-23 08:08] LABS: ANION GAP 10 (5-15); CALCIUM 9.7 mg/dL (8.6-10.2); CARBON DIOXIDE 31 mEQ/L (20-30); CHLORIDE 97 mEQ/L (98-107); CREATININE 0.7 mg/dL (0.5-0.9); GLOMERULAR FILTRATION RATE > 60 mL/min (>60); HEMOLYSIS 0; POTASSIUM 3.3 mEQ/L (3.4-4.9); SODIUM 138 mEQ/L (135-145)
[2016-08-23] MEDS: Heparin 5000 units/ml inj SUBQ SCH ×2 (08:09→20:13)
--- NOTE | 2016-08-23 08:56 | General Progress Note ---
Assessment/Plan Problem List: (1) Abdominal pain (2) Constipation (3) Opioid dependence ICD Codes: F11.20 - Opioid dependence SNOMED: 38736301 (4) Shortness of breath (5) Emphysema ICD Codes: J43.9 - Emphysema SNOMED: 04163307 (6) COPD exacerbation ICD Codes: J44.1 - COPD exacerbation SNOMED: 777976644 (7) CHF (congestive heart failure) ICD Codes: I50.9 - Heart failure, unspecified SNOMED: 20526951 (8) Nausea and vomiting (9) Crohns disease ICD Codes: K50.90 - Crohns disease SNOMED: 13146643 (10) UTI (urinary tract infection) ICD Codes: N39.0 - Urinary tract infection, site not specified SNOMED: 28708167 Status: stable, progressing, tolerating diet Assessment/Plan ot pt diet gi f/u abx o2 pulm tx pain control gi id f/u cbc bmp am Subjective Constitutional: Reports: weakness Allergies: Coded Allergies: No Known Allergies (Verified , 05/21/06) All Systems: reviewed and negative except above Subjective sleepy calm Objective Last 24 Hour Vital Signs Date Time Temp Pulse Resp B/P Pulse Ox O2 Delivery O2 Flow Rate FiO2 08/23/16 07:50 98.2 89 14 120/67 100 Room Air 08/23/16 04:00 97.9 89 20 123/65 97 Room Air 08/22/16 23:39 98.8 90 20 105/69 97 Room Air 08/22/16 22:53 97.8 08/22/16 20:12 97.8 71 18 128/71 100 Room Air 08/22/16 15:58 97.9 89 18 123/68 100 Room Air 08/22/16 12:02 98.4 95 20 138/70 98 Room Air Intake and Output 08/22/16 08/23/16 19:00 07:00 Intake Total 240 ml 400 ml Output Total 650 ml Balance 240 ml -250 ml Intake Oral 240 ml 400 ml Output Urine Total 650 ml # Voids 2 6 # Bowel Movements 1 Laboratory Tests 08/23/16 07:15: White Blood Count 17.0H, Red Blood Count 4.50, Hemoglobin 12.0, Hematocrit 38.3 , Mean Corpuscular Volume 85, Mean Corpuscular Hemoglobin 26.6L, Mean Corpuscular Hemoglobin Concent 31.2L, Red Cell Distribution Width 16.9H, Platelet Count 410, Mean Platelet Volume 7.2, Neutrophils (%) (Auto) 77.4H, Lymphocytes (%) (Auto) 13.4L, Monocytes (%) (Auto) 8.2, Eosinophils (%) (Auto) 0.8, Basophils (%) (Auto) 0.3, Sodium Level 138, Potassium Level 3.3L, Chloride Level 97L, Carbon Dioxide Level 31H, Anion Gap 10, Blood Urea Nitrogen 9, Creatinine 0.7, Estimat Glomerular Filtration Rate > 60, Glucose Level 109H, Calcium Level 9.7 Height (Feet): 5 Height (Inches): 6.00 Weight (Pounds): 164 General Appearance: lethargic EENT: normal ENT inspection Neck: normal alignment Cardiovascular: normal peripheral pulses, normal rate, regular rhythm Respiratory/Chest: chest wall non-tender, lungs clear, normal breath sounds Abdomen: non tender, soft Extremities: normal inspection Edema: no edema noted Arm (L), no edema noted Arm (R), no edema noted Leg (L), no edema noted Leg (R), no edema noted Pedal (L), no edema noted Pedal (R), no edema noted Generalized Neurologic: responsive, motor weakness Skin: normal pigmentation, warm/dry BAYRON BENEDICT Aug 23, 2016 08:56
[2016-08-23 12:00] VITALS: BP 92/54
--- NOTE | 2016-08-23 13:18 | Pulmonology Progress Note ---
Assessment/Plan Problems: (1) Interstitial lung disease (2) Sepsis (3) Emphysema (4) Leukocytosis (5) Colitis (6) Acute encephalopathy (7) Hx SBO Assessment/Plan wants to go home cxr unchged off antibiotics improivng titrate fo2 to sat of 92% all cultures negative sofar all notes and meds reviewed. ok to go home Subjective ROS Limited/Unobtainable: No Constitutional: Reports: no symptoms HEENT: Repors: no symptoms Allergies: Coded Allergies: No Known Allergies (Verified , 05/21/06) Objective Last 24 Hour Vital Signs Date Time Temp Pulse Resp B/P Pulse Ox O2 Delivery O2 Flow Rate FiO2 08/23/16 12:00 97.3 90 16 92/54 99 Room Air 08/23/16 08:39 98.2 08/23/16 07:50 98.2 89 14 120/67 100 Room Air 08/23/16 04:00 97.9 89 20 123/65 97 Room Air 08/22/16 23:39 98.8 90 20 105/69 97 Room Air 08/22/16 20:12 97.8 71 18 128/71 100 Room Air 08/22/16 15:58 97.9 89 18 123/68 100 Room Air Intake and Output 08/22/16 08/23/16 19:00 07:00 Intake Total 240 ml 400 ml Output Total 650 ml Balance 240 ml -250 ml Intake Oral 240 ml 400 ml Output Urine Total 650 ml # Voids 2 6 # Bowel Movements 1 General Appearance: WD/WN HEENT: normocephalic, atraumatic Respiratory/Chest: chest wall non-tender, lungs clear Breasts: no masses Cardiovascular: normal peripheral pulses, normal rate Abdomen: normal bowel sounds, soft, non tender Genitourinary: normal external genitalia Extremities: no cyanosis Laboratory Tests 08/23/16 07:15: White Blood Count 17.0H, Red Blood Count 4.50, Hemoglobin 12.0, Hematocrit 38.3 , Mean Corpuscular Volume 85, Mean Corpuscular Hemoglobin 26.6L, Mean Corpuscular Hemoglobin Concent 31.2L, Red Cell Distribution Width 16.9H, Platelet Count 410, Mean Platelet Volume 7.2, Neutrophils (%) (Auto) 77.4H, Lymphocytes (%) (Auto) 13.4L, Monocytes (%) (Auto) 8.2, Eosinophils (%) (Auto) 0.8, Basophils (%) (Auto) 0.3, Sodium Level 138, Potassium Level 3.3L, Chloride Level 97L, Carbon Dioxide Level 31H, Anion Gap 10, Blood Urea Nitrogen 9, Creatinine 0.7, Estimat Glomerular Filtration Rate > 60, Glucose Level 109H, Calcium Level 9.7 Current Medications Medications (Trade) Dose Ordered Sig/Vaibhav Route PRN Reason Start Time Stop Time Status Last Admin Dose Admin Acetaminophen (Tylenol) 650 mg Q4H PRN ORAL fever 08/15/16 14:45 09/14/16 14:44 Al Hydroxide/Mg Hydroxide (Mylanta II) 30 ml Q6H PRN ORAL dyspepsia 08/15/16 14:45 09/14/16 14:44 Dextrose (Dextrose 50%) STAT PRN IV Hypoglycemia 08/15/16 14:45 09/14/16 14:44 Diphenhydramine HCl (Benadryl) 25 mg Q6H PRN ORAL Itching/Pruritis 08/15/16 14:45 09/14/16 14:44 08/21/16 00:19 Docusate Sodium (Colace) 100 mg THREE TIMES A DAY ORAL 08/17/16 13:00 09/16/16 12:59 08/23/16 13:01 Duloxetine HCl (Cymbalta) 60 mg DAILY ORAL 08/16/16 09:00 09/15/16 08:59 08/23/16 08:06 Heparin Sodium (Porcine) (Heparin 5000 units/ml) 5,000 units EVERY 12 HOURS SUBQ 08/15/16 21:00 09/14/16 20:59 08/23/16 08:09 Hydromorphone HCl (Dilaudid) 1 mg Q4H PRN IVP PAIN 4-10 08/19/16 14:00 08/26/16 13:59 08/23/16 13:01 Levetiracetam (Keppra) 1,500 mg TWICE A DAY ORAL 08/15/16 18:00 09/14/16 17:59 08/23/16 08:07 Mesalamine (Asacol) 800 mg THREE TIMES A DAY ORAL 08/16/16 09:00 09/15/16 08:59 08/23/16 13:01 Mirtazapine (Remeron) 30 mg BEDTIME ORAL 08/15/16 21:00 09/14/16 20:59 08/21/16 20:18 Nitroglycerin (Ntg) 0.4 mg Q5M X 3 DOSES PRN SL Prn Chest Pain 08/15/16 14:45 09/14/16 14:44 Ondansetron HCl (Zofran) 4 mg Q6H PRN IVP Nausea & Vomiting 08/15/16 14:45 09/14/16 14:44 08/20/16 09:37 Polyethylene Glycol (Miralax) 17 gm BEDTIME ORAL 08/17/16 21:00 09/16/16 20:59 08/20/16 20:35 Polyethylene Glycol (Miralax) 17 gm HSPRN PRN ORAL Constipation 08/15/16 14:45 09/14/16 14:44 Quetiapine Fumarate (SEROquel) 200 mg DAILY ORAL 08/16/16 09:00 09/15/16 08:59 08/23/16 08:07 Topiramate (Topamax) 25 mg TWICE A DAY ORAL 08/15/16 18:00 09/14/16 17:59 08/23/16 08:06 DWAYNE SOTO Aug 23, 2016 13:18
[2016-08-23 15:58] VITALS: BP 114/69
[2016-08-23 20:00] VITALS: BP 114/65
[2016-08-23] MEDS: Miralax 17gm pkt ORAL SCH (20:09)
--- NOTE | 2016-08-23 23:17 | Progress Note ---
DATE: 08/19/2016 SUBJECTIVE: The patient is a 65-year-old female with hypertension and abdominal pain. She was seen and assessed at bedside. PLAN: Treat her with Seroquel and stabilize her mood. Seen and assessed at bedside. Chart reviewed and discussed with staff. Mena Goncalves M.D. DR: NELY JOB#: [id number] CC:
--- NOTE | 2016-08-23 23:17 | Progress Note ---
DATE: 08/22/2016 SUBJECTIVE: This is a 65-year-old female patient with hypertension and abdominal pain. PLAN: I am going to continue treatment with psychotropic medications to prevent any further decline in cognition. Continue treatment with Seroquel to prevent any further decline in cognition. Chart reviewed. Discussed with staff. Seen and assessed at bedside. Mena Goncalves M.D. DR: NELY JOB#: [id number] CC:
--- NOTE | 2016-08-23 23:37 | Progress Note ---
DATE: 08/23/2016 SUBJECTIVE: The patient is a 65-year-old female patient with and abdominal plan. I am going to continue treatment with psychotropic medications to prevent any further decline in cognition. Chart reviewed. Discussed with staff. Seen and assessed at bedside. Mena Goncalves M.D. DR: Marilu JOB#: [id number] CC:
--- NOTE | 2016-08-23 23:37 | Progress Note ---
DATE: 08/20/2016 SUBJECTIVE: The patient has hypotension and abdominal pain. PLAN: Plan is to continue treatment with psychotropic medications to stabilize her mood. Chart reviewed. Discussed with staff. Mena Goncalves M.D. DR: FELI JOB#: [id number] CC:
[2016-08-23 23:48] VITALS: BP 124/69
--- NOTE | 2016-08-24 02:07 | Progress Note ---
DATE: 08/18/2016 SUBJECTIVE: The patient is a 65-year-old female patient with hypertension and abdominal pain. She has a diagnosis of bipolar 2 disorder. PLAN: Continue treatment with Seroquel. Chart reviewed and discussed with the staff. Behavioral management provided. Mena Goncalves M.D. DR: NELY JOB#: [id number] CC:
--- NOTE | 2016-08-24 02:27 | Progress Note ---
DATE: 08/21/2016 PLAN: Continue treatment with psychotropic medications to prevent any further decline in her cognition. Chart reviewed and discussed with staff. She was seen and assessed at bedside. Continue treatment with Seroquel to prevent any further decline in her cognition. Mena Goncalves M.D. DR: Audra JOB#: [id number] CC:
--- NOTE | 2016-08-24 03:07 | Progress Note ---
DATE: 08/17/2016 SUBJECTIVE: This is a female patient, 65 years old, with hypertension and abdominal pain. PLAN: We will continue treating her with the psychiatric regimen of Seroquel to stabilize her mood. Chart reviewed. Discussed with staff. Seen and assessed at bedside. Mena Goncalves M.D. DR: NELY JOB#: [id number] CC:
[2016-08-24] MEDS: HYDROmorphone 1mg/ml Carpuject IVP PRN ×3 (03:41→15:59)
[2016-08-24 04:00] VITALS: BP 127/72
[2016-08-24 06:48] LABS: BASOPHILS % (AUTO) 0.5 % (0.0-2.0); EOSINOPHILS % (AUTO) 0.6 % (0.0-3.0); LYMPHOCYTES % (AUTO) 15.4 % (20.0-45.0); MEAN CORPUSCULAR HEMOGLOBIN 26.9 PG (27.0-31.0); MEAN CORPUSCULAR HGB CONC 30.6 G/DL (32.0-36.0); MEAN CORPUSCULAR VOLUME 88 FL (80-99); MEAN PLATELET VOLUME 6.4 FL (6.5-10.1); MONOCYTES % (AUTO) 6.6 % (1.0-10.0); NEUTROPHILS % (AUTO) 76.9 % (45.0-75.0); PLATELET COUNT 356 K/UL (150-450); RED BLOOD COUNT 4.36 M/UL (4.20-5.40); RED CELL DISTRIBUTION WIDTH 16.6 % (11.6-14.8); WHITE BLOOD COUNT 16.3 K/UL (4.8-10.8)
[2016-08-24 06:57] LABS: ANION GAP 12 (5-15); CALCIUM 9.5 mg/dL (8.6-10.2); CARBON DIOXIDE 31 mEQ/L (20-30); CHLORIDE 96 mEQ/L (98-107); CREATININE 0.8 mg/dL (0.5-0.9); GLOMERULAR FILTRATION RATE > 60 mL/min (>60); HEMOLYSIS 0; POTASSIUM 3.4 mEQ/L (3.4-4.9); SODIUM 139 mEQ/L (135-145)
[2016-08-24 08:15] VITALS: BP 122/77
[2016-08-24] MEDS: Heparin 5000 units/ml inj SUBQ SCH (08:46)
[2016-08-24] MEDS: Docusate 100mg cap ORAL SCH ×3 (08:47→18:00)
[2016-08-24] MEDS: DULoxetine 30mg cap ORAL SCH (08:47)
[2016-08-24] MEDS: QUEtiapine 200mg tab ORAL SCH (08:47)
[2016-08-24] MEDS: Topiramate 25mg tab ORAL SCH ×2 (08:48→18:06)
--- NOTE | 2016-08-24 10:57 | GI Progress Note ---
Assessment/Plan Problems: (1) Abdominal pain ICD Codes: R10.9 - Unspecified abdominal pain SNOMED: 32124058 (2) Crohn's disease ICD Codes: K50.90 - Crohn's disease SNOMED: 54049802 (3) Colitis ICD Codes: K52.9 - Noninfective gastroenteritis and colitis, unspecified SNOMED: 361306176 (4) Abdominal pain (5) Anemia (6) Nausea and vomiting (7) Constipation Status: stable Status Narrative Discussed with Dr. Gallegos. Assessment/Plan APCT >> fecal retention mesalamine for Crohns BM x 1 s/p EGD/colon 2016 non functional implanted morphine pump LLQ ok for DC per GI standpoint cardiac diet Rx trial of Movantik for OIC >> patient responded well laxatives OB stool uncollected pain mgmt fu labs pt scheduled to be seen outpatient in [facility] next week Subjective Gastrointestinal/Abdominal: Reports: no symptoms Subjective asymptomatic ready to go home Objective Last 24 Hour Vital Signs Date Time Temp Pulse Resp B/P Pulse Ox O2 Delivery O2 Flow Rate FiO2 08/24/16 08:15 98.6 111 21 122/77 95 Room Air 08/24/16 04:00 98.2 95 20 127/72 97 Room Air 08/23/16 23:48 97.2 100 20 124/69 95 Room Air 08/23/16 22:22 98.1 08/23/16 20:00 98.1 101 19 114/65 97 Nasal Cannula 08/23/16 15:58 98.6 98 16 114/69 98 Room Air 08/23/16 12:00 97.3 90 16 92/54 99 Room Air Intake and Output 08/23/16 08/24/16 19:00 07:00 Intake Total 1000 ml Output Total 500 ml Balance 1000 ml -500 ml Intake Oral 1000 ml Output Urine Total 500 ml # Voids 1 # Bowel Movements 2 2 Laboratory Tests Test 08/24/16 06:00 White Blood Count 16.3 K/UL (4.8-10.8) H Red Blood Count 4.36 M/UL (4.20-5.40) Hemoglobin 11.7 G/DL (12.0-16.0) L Hematocrit 38.3 % (37.0-47.0) Mean Corpuscular Volume 88 FL (80-99) Mean Corpuscular Hemoglobin 26.9 PG (27.0-31.0) L Mean Corpuscular Hemoglobin Concent 30.6 G/DL (32.0-36.0) L Red Cell Distribution Width 16.6 % (11.6-14.8) H Platelet Count 356 K/UL (150-450) Mean Platelet Volume 6.4 FL (6.5-10.1) L Neutrophils (%) (Auto) 76.9 % (45.0-75.0) H Lymphocytes (%) (Auto) 15.4 % (20.0-45.0) L Monocytes (%) (Auto) 6.6 % (1.0-10.0) Eosinophils (%) (Auto) 0.6 % (0.0-3.0) Basophils (%) (Auto) 0.5 % (0.0-2.0) Sodium Level 139 mEQ/L (135-145) Potassium Level 3.4 mEQ/L (3.4-4.9) Chloride Level 96 mEQ/L (98-107) L Carbon Dioxide Level 31 mEQ/L (20-30) H Anion Gap 12 (5-15) Blood Urea Nitrogen 15 mg/dL (7-23) Creatinine 0.8 mg/dL (0.5-0.9) Estimat Glomerular Filtration Rate > 60 mL/min (>60) Glucose Level 137 mg/dL (74-106) H Calcium Level 9.5 mg/dL (8.6-10.2) Height (Feet): 5 Height (Inches): 6.00 Weight (Pounds): 164 General Appearance: alert Cardiovascular: normal rate Respiratory/Chest: normal breath sounds, no respiratory distress Abdominal Exam: non tender, soft Tara Scott N.PDeng Aug 24, 2016 10:57
[2016-08-24 11:42] VITALS: BP 110/66
--- NOTE | 2016-08-24 13:04 | General Progress Note ---
Assessment/Plan Problem List: (1) Abdominal pain (2) Constipation (3) Opioid dependence ICD Codes: F11.20 - Opioid dependence SNOMED: 56433941 (4) Shortness of breath (5) Emphysema ICD Codes: J43.9 - Emphysema SNOMED: 45718839 (6) COPD exacerbation ICD Codes: J44.1 - COPD exacerbation SNOMED: 918382198 (7) CHF (congestive heart failure) ICD Codes: I50.9 - Heart failure, unspecified SNOMED: 61854898 (8) Nausea and vomiting (9) Crohns disease ICD Codes: K50.90 - Crohns disease SNOMED: 99291492 (10) UTI (urinary tract infection) ICD Codes: N39.0 - Urinary tract infection, site not specified SNOMED: 53614364 Status: stable, progressing, tolerating diet Assessment/Plan ot pt diet gi f/u abx o2 pulm tx pain control gi id f/u cbc bmp am dc if clear by id and pulm Subjective Constitutional: Reports: weakness Allergies: Coded Allergies: No Known Allergies (Verified , 05/21/06) All Systems: reviewed and negative except above Subjective sleepy calm Objective Last 24 Hour Vital Signs Date Time Temp Pulse Resp B/P Pulse Ox O2 Delivery O2 Flow Rate FiO2 08/24/16 11:42 98.2 97 21 110/66 97 Room Air 08/24/16 08:15 98.6 111 21 122/77 95 Room Air 08/24/16 04:00 98.2 95 20 127/72 97 Room Air 08/23/16 23:48 97.2 100 20 124/69 95 Room Air 08/23/16 22:22 98.1 08/23/16 20:00 98.1 101 19 114/65 97 Nasal Cannula 08/23/16 15:58 98.6 98 16 114/69 98 Room Air Intake and Output 08/23/16 08/24/16 19:00 07:00 Intake Total 1000 ml Output Total 500 ml Balance 1000 ml -500 ml Intake Oral 1000 ml Output Urine Total 500 ml # Voids 1 # Bowel Movements 2 2 Laboratory Tests 08/24/16 06:00: White Blood Count 16.3H, Red Blood Count 4.36, Hemoglobin 11.7L, Hematocrit 38.3 , Mean Corpuscular Volume 88, Mean Corpuscular Hemoglobin 26.9L, Mean Corpuscular Hemoglobin Concent 30.6L, Red Cell Distribution Width 16.6H, Platelet Count 356, Mean Platelet Volume 6.4L, Neutrophils (%) (Auto) 76.9H, Lymphocytes (%) (Auto) 15.4L, Monocytes (%) (Auto) 6.6, Eosinophils (%) (Auto) 0.6, Basophils (%) (Auto) 0.5, Sodium Level 139, Potassium Level 3.4, Chloride Level 96L, Carbon Dioxide Level 31H, Anion Gap 12, Blood Urea Nitrogen 15, Creatinine 0.8, Estimat Glomerular Filtration Rate > 60, Glucose Level 137H, Calcium Level 9.5 Height (Feet): 5 Height (Inches): 6.00 Weight (Pounds): 164 General Appearance: alert EENT: normal ENT inspection Neck: normal alignment Cardiovascular: normal peripheral pulses, normal rate, regular rhythm Respiratory/Chest: chest wall non-tender, lungs clear, normal breath sounds Abdomen: normal bowel sounds, non tender, soft Extremities: normal inspection Edema: no edema noted Arm (L), no edema noted Arm (R), no edema noted Leg (L), no edema noted Leg (R), no edema noted Pedal (L), no edema noted Pedal (R), no edema noted Generalized Neurologic: responsive, motor weakness Skin: normal pigmentation, warm/dry BAYRON BENEDICT Aug 24, 2016 13:04
[2016-08-24 16:00] VITALS: BP 110/62
[2016-08-24] MEDS ORDERED: TYLENOL EXTRA500 MG ORAL (17:03)
[2016-08-24] MEDS ORDERED: MYLANTA30 M1 ORAL (17:04)
[2016-08-24] MEDS ORDERED: DOCUSATE SODIU100 MG ORAL (17:04)
[2016-08-24] MEDS ORDERED: NITROGLYCERIN0.4 MG SL (17:05)
[2016-08-24] MEDS ORDERED: MIRALAX17 G2 ORAL (17:06)
[2016-08-24] MEDS ORDERED: ASACOL HD800 MG ORAL (17:08)
--- NOTE | 2016-08-24 17:41 | Infectious Diseases Prog Note ---
Assessment/Plan Problems: (1) Ileus Assessment & Plan: resolved, suspect due to prior surgeries , follow up with GI (2) UTI (urinary tract infection) Assessment & Plan: was treated with zosyn , urine culture showed contaminant [place]. (3) Sepsis Assessment & Plan: ruled out with negative blood culture , off zosyn , doing well off antibiotics. (4) Abdominal pain Assessment & Plan: continue pain management as per primary (5) Crohn's disease Assessment & Plan: GI is following , continue meds (6) Nausea and vomiting Assessment & Plan: resolved, due to ileus , continue supportive care (7) Leukocytosis Assessment & Plan: suspect dehydration related, VS Crohn's DZ related, no evidence of infection or colitis, no need for antibiotics therapy , already received zosyn Subjective Constitutional: Denies: anorexia, chills, drenching sweats, fatigue, fever, no symptoms, other HEENT: Denies: congestion, coryza, dysphagia, hearing change, no symptoms, other, visual change Respiratory: Denies: dry cough, no symptoms, other, productive cough, shortness of breath Breasts: Denies: discharge, no symptoms, other, swelling, tenderness Cardiovascular: Denies: chest pain, dyspnea on exertion, no symptoms, other, palpitations Gastrointestinal/Abdominal: Denies: bloating, blood in stool, constipation, diarrhea, nausea, no symptoms, other, vomiting Genitourinary: Denies: dysuria, frequency, hematuria, last menstrual period, no symptoms, nocturia, other, vaginal bleed/discharge Neurologic: Denies: confusion, headache, no symptoms, numbness, other, weakness Psychiatric: Denies: anxiety, depression, no symptoms, other Skin: Denies: no symptoms, other, rash, ulcer Endocrine: Denies: feels cold, feels warm, no symptoms, other Hematologic: Denies: bleeding, no symptoms, other, swollen lymph nodes Allergies: Coded Allergies: No Known Allergies (Verified , 05/21/06) Subjective tolerated diet well Objective Vital Signs Last 24 Hour Vital Signs Date Time Temp Pulse Resp B/P Pulse Ox O2 Delivery O2 Flow Rate FiO2 08/24/16 16:28 98.2 08/24/16 16:00 98.2 97 18 110/62 98 Room Air 08/24/16 11:42 98.2 97 21 110/66 97 Room Air 08/24/16 08:15 98.6 111 21 122/77 95 Room Air 08/24/16 04:00 98.2 95 20 127/72 97 Room Air 08/23/16 23:48 97.2 100 20 124/69 95 Room Air 08/23/16 20:00 98.1 101 19 114/65 97 Nasal Cannula Height (Feet): 5 Height (Inches): 6.00 Weight (Pounds): 164 General Appearance: WD/WN, no acute distress HEENT: normocephalic, atraumatic, anicteric, mucous membranes moist Respiratory/Chest: chest wall non-tender, lungs clear, normal breath sounds, no respiratory distress, no accessory muscle use Cardiovascular: normal peripheral pulses, normal rate, regular rhythm, no gallop/murmur, no JVD Abdomen: normal bowel sounds, soft, non tender, no organomegaly, non distended , no mass Extremities: no cyanosis, no clubbing Skin: no rash, no lesions Laboratory Tests Test 08/24/16 06:00 White Blood Count 16.3 K/UL (4.8-10.8) H Red Blood Count 4.36 M/UL (4.20-5.40) Hemoglobin 11.7 G/DL (12.0-16.0) L Hematocrit 38.3 % (37.0-47.0) Mean Corpuscular Volume 88 FL (80-99) Mean Corpuscular Hemoglobin 26.9 PG (27.0-31.0) L Mean Corpuscular Hemoglobin Concent 30.6 G/DL (32.0-36.0) L Red Cell Distribution Width 16.6 % (11.6-14.8) H Platelet Count 356 K/UL (150-450) Mean Platelet Volume 6.4 FL (6.5-10.1) L Neutrophils (%) (Auto) 76.9 % (45.0-75.0) H Lymphocytes (%) (Auto) 15.4 % (20.0-45.0) L Monocytes (%) (Auto) 6.6 % (1.0-10.0) Eosinophils (%) (Auto) 0.6 % (0.0-3.0) Basophils (%) (Auto) 0.5 % (0.0-2.0) Sodium Level 139 mEQ/L (135-145) Potassium Level 3.4 mEQ/L (3.4-4.9) Chloride Level 96 mEQ/L (98-107) L Carbon Dioxide Level 31 mEQ/L (20-30) H Anion Gap 12 (5-15) Blood Urea Nitrogen 15 mg/dL (7-23) Creatinine 0.8 mg/dL (0.5-0.9) Estimat Glomerular Filtration Rate > 60 mL/min (>60) Glucose Level 137 mg/dL (74-106) H Calcium Level 9.5 mg/dL (8.6-10.2) Current Medications Medications (Trade) Dose Ordered Sig/Vaibhav Route PRN Reason Start Time Stop Time Status Last Admin Dose Admin Acetaminophen (Tylenol) 650 mg Q4H PRN ORAL fever 08/15/16 14:45 09/14/16 14:44 Al Hydroxide/Mg Hydroxide (Mylanta II) 30 ml Q6H PRN ORAL dyspepsia 08/15/16 14:45 09/14/16 14:44 Dextrose (Dextrose 50%) STAT PRN IV Hypoglycemia 08/15/16 14:45 09/14/16 14:44 Diphenhydramine HCl (Benadryl) 25 mg Q6H PRN ORAL Itching/Pruritis 08/15/16 14:45 09/14/16 14:44 08/21/16 00:19 Docusate Sodium (Colace) 100 mg THREE TIMES A DAY ORAL 08/17/16 13:00 09/16/16 12:59 08/23/16 13:01 Duloxetine HCl (Cymbalta) 60 mg DAILY ORAL 08/16/16 09:00 09/15/16 08:59 08/24/16 08:47 Heparin Sodium (Porcine) (Heparin 5000 units/ml) 5,000 units EVERY 12 HOURS SUBQ 08/15/16 21:00 09/14/16 20:59 08/24/16 08:46 Hydromorphone HCl (Dilaudid) 1 mg Q4H PRN IVP PAIN 4-10 08/19/16 14:00 08/26/16 13:59 08/24/16 15:59 Levetiracetam (Keppra) 1,500 mg TWICE A DAY ORAL 08/15/16 18:00 09/14/16 17:59 08/24/16 08:47 Mesalamine (Asacol) 800 mg THREE TIMES A DAY ORAL 08/16/16 09:00 09/15/16 08:59 08/24/16 13:35 Mirtazapine (Remeron) 30 mg BEDTIME ORAL 08/15/16 21:00 09/14/16 20:59 08/23/16 20:10 Nitroglycerin (Ntg) 0.4 mg Q5M X 3 DOSES PRN SL Prn Chest Pain 08/15/16 14:45 09/14/16 14:44 Ondansetron HCl (Zofran) 4 mg Q6H PRN IVP Nausea & Vomiting 08/15/16 14:45 09/14/16 14:44 08/20/16 09:37 Polyethylene Glycol (Miralax) 17 gm BEDTIME ORAL 08/17/16 21:00 09/16/16 20:59 08/20/16 20:35 Polyethylene Glycol (Miralax) 17 gm HSPRN PRN ORAL Constipation 08/15/16 14:45 09/14/16 14:44 Quetiapine Fumarate (SEROquel) 200 mg DAILY ORAL 08/16/16 09:00 09/15/16 08:59 08/24/16 08:47 Topiramate (Topamax) 25 mg TWICE A DAY ORAL 08/15/16 18:00 09/14/16 17:59 08/24/16 08:48 Darrel Golden M.D. Aug 24, 2016 17:41
--- NOTE | 2016-08-24 20:57 | Progress Note ---
DATE: 08/24/2016 SUBJECTIVE: The patient was seen and assessed at bedside. She has abdominal pain. I am going to treat her with some Seroquel 200 mg daily, Cymbalta 60 mg daily, Remeron 30 mg at bedtime, and Topamax 25 mg twice a day to stabilize her mood. The patient was seen and assessed at bedside. Chart reviewed. Discussed with staff. Mena Goncalves M.D. DR: MERLINE JOB#: [id number] CC:
--- NOTE | 2016-08-24 23:08 | Pulmonology Progress Note ---
Assessment/Plan Problems: (1) Interstitial lung disease (2) Sepsis (3) Emphysema (4) Leukocytosis (5) Colitis (6) Acute encephalopathy (7) Hx SBO Assessment/Plan no new complains cxr unchged off antibiotics improivng titrate fo2 to sat of 92% all cultures negative sofar all notes and meds reviewed. ok to go home Subjective ROS Limited/Unobtainable: No Constitutional: Reports: no symptoms HEENT: Repors: no symptoms Respiratory: Reports: no symptoms Allergies: Coded Allergies: No Known Allergies (Verified , 05/21/06) Objective Last 24 Hour Vital Signs Date Time Temp Pulse Resp B/P Pulse Ox O2 Delivery O2 Flow Rate FiO2 08/24/16 16:28 98.2 08/24/16 16:00 98.2 97 18 110/62 98 Room Air 08/24/16 11:42 98.2 97 21 110/66 97 Room Air 08/24/16 08:15 98.6 111 21 122/77 95 Room Air 08/24/16 04:00 98.2 95 20 127/72 97 Room Air 08/23/16 23:48 97.2 100 20 124/69 95 Room Air Intake and Output 08/23/16 08/24/16 19:00 07:00 Intake Total 1000 ml Output Total 500 ml Balance 1000 ml -500 ml Intake Oral 1000 ml Output Urine Total 500 ml # Voids 1 # Bowel Movements 2 2 General Appearance: WD/WN HEENT: normocephalic Respiratory/Chest: chest wall non-tender, lungs clear Cardiovascular: normal peripheral pulses Abdomen: normal bowel sounds Genitourinary: normal external genitalia Skin: no rash Neurologic/Psychiatric: 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8, Estimat Glomerular Filtration Rate > 60, Glucose Level 137H, Calcium Level 9.5 DWAYNE SOTO Aug 24, 2016 23:08
--- NOTE | 2016-08-25 13:03 | Discharge Summary ---
Discharge Summary Hospital Course Date of Admission Aug 15, 2016 at 13:16 Date of Discharge Aug 24, 2016 at 20:57 Admitting Diagnosis hypotension, abdominal pain HPI Jayde Buchanan is a 65 year old female who was admitted on Aug 15, 2016 at 13:16 for Hypotension, Abdominal Pain Hospital Course dc summary dictated #[id number] Discharge Medications Continued Medications: Acetaminophen* (Tylenol Extra Strength*) 500 Mg Tablet 650 MG ORAL Q4HR PRN for Mild Pain/Temp > 100.5, TAB 0 Refills Al Hydroxide/mg Hydroxide (Mag-Al Liquid) 30 Ml Oral.susp 30 ML ORAL Q6HR PRN for DYSPEPSIA, ML Diphenhydramine HCl (Benadryl) 25 Mg Capsule 25 MG PO, CAP Docusate Sodium* (Docusate Sodium*) 100 Mg Capsule 100 MG ORAL THREE TIMES A DAY, CAP Duloxetine Hcl* (Cymbalta*) 60 Mg Capsule.dr 60 MG ORAL DAILY, CAP Levetiracetam* (Levetiracetam*) 500 Mg Tablet 1500 MG ORAL TWICE A DAY, #60 TAB 0 Refills Mesalamine (Asacol Hd) 800 Mg Tablet.dr 800 MG ORAL THREE TIMES A DAY, TAB Do not break outer coating Mirtazapine* (Mirtazapine*) 15 Mg Tablet 30 MG ORAL BEDTIME, TAB Nitroglycerin (Nitroglycerin) 0.4 Mg Tab.subl 0.4 MG SL Q5MIN X3 PRN for CHEST PAIN, TAB Polyethylene Glycol 3350* (Miralax*) 17 Gm Powd.pack 17 GM ORAL BEDTIME, PACKET Quetiapine Fumarate* (Seroquel*) 200 Mg Tablet 200 MG ORAL DAILY, TAB Topiramate* (Topamax*) 25 Mg Tablet 25 MG ORAL TWICE A DAY, #60 TAB 0 Refills Discontinued Medications: Albuterol Sulfate* (Albuterol Sulfate Hhn*) 2.5 Mg/3 Ml Vial.neb 3 ML INH Q4H PRN for Shortness of Breath, EA Levofloxacin* (Levaquin*) 250 Mg Tablet 250 MG ORAL DAILY, TAB Mesalamine (Pentasa) 500 Mg Capsule.er 1000 MG ORAL TID, #30 CAP 0 Refills Metronidazole* (Flagyl*) 500 Mg Tablet 500 MG ORAL EVERY 8 HOURS, TAB Ranitidine Hcl* (Zantac*) 150 Mg Tablet 150 MG ORAL TWICE A DAY, TAB Temazepam* (Restoril*) 15 Mg Capsule 15 MG ORAL BEDTIME PRN for Insomnia, CAP Discharge Condition Upon Discharge: stable Discharge Disposition Patient was discharged to Home with Home Health(06) Follow up with outpt GI clinic in 1 week Discharge Diagnoses: [place] ([facility]),Gwendolyn SMITH Aug 25, 2016 13:03
--- NOTE | 2016-08-26 02:27 | Discharge Summary ---
DATE OF ADMISSION: 08/15/2016 DATE OF DISCHARGE: 08/24/2016 REASON FOR ADMISSION: The patient is a 65-year-old female, presented to the emergency room with complaint of diffuse abdominal pain and also complained of diarrhea and vomiting. The patient has a fairly extensive past medical history including bowel obstruction, Crohn disease, and history of C. difficile colitis. The patient reported being on Bactrim recently. She denies fever. Denies chills. Denies chest pain, shortness of breath, or cough. She quantifies her abdominal pain 6/10 on a scale 1 to 10. The patient has a pain specialist, Dr. Malhotra, that she follows. Subsequently in the emergency room, urinalysis revealed evidence of many bacteria, pyuria, but negative for nitrates. The patient presented with leukocytosis of 17.1. Hemoglobin and hematocrit are stable. Creatinine up to 1.5. Anion gap 21. Lipase stable of 18. CT of the abdomen and pelvis revealed moderate fecal retention and gas in the remaining colon. Ileus could have the appearance with partial obstruction, not completely excluded. Chest x-ray revealed grossly stable interstitial disease. The patient was admitted for further management. ADMITTING DIAGNOSES: 1. Ileus. 2. Probable urinary tract infection. 3. Crohn disease. 4. Abdominal pain. 5. Dehydration secondary to nausea and vomiting. 6. History of asthma. 7. Leukocytosis. 8. Fecal impaction. HOSPITAL COURSE: The patient was admitted on the floor. The patient was started initially on the IV fluids. Renal parameters were closely monitored. GI consult and Pulmonary consult were requested. GI specialist had seen the patient. He put the patient on mesalamine for Crohn disease. The patient undergone esophagogastroduodenoscopy and colonoscopy in 2015 without significant changes. Bowel regimen was instituted. The patient started to have normal bowel movements. Outpatient followup arranged for next week with the GI in the clinic. Leukocytosis, likely reactive due to dehydration versus Crohn disease. She had no evidence of infection or colitis. No need for antibiotics as per ID. Pulmonary savage, the patient has stable respiratory status. She had stable pulse oximetry on room air. No need for supplemental oxygen. Pulmonary toilet as needed. Chest x-ray revealed no acute cardiopulmonary disease. There was no evidence of asthma exacerbation. The patient was asymptomatic in regards to respiratory symptoms. Initially, the patient was on antibiotic for urinary tract infection and status post treatment, however urine culture was collected after antibiotic started, and revealed just mixed urogenital contaminants. The patient off antibiotics. Stool for C. difficile was negative. Diarrhea subsided. Antiemetic provided as needed. Pain was controlled. Pain specialist followed. Pain management was effectively managed with multiple regimen of analgesic .. Seizure precautions maintained. Keppra continued. Due to the history of chronic pancreatitis, amylase and lipase were monitored and were within normal limits. GI cleared the patient for discharge. DISCHARGE DIAGNOSES: 1. Crohn disease. 2. Abdominal pain. 3. Leukocytosis. 4. History of asthma. 5. Fecal impaction, resolved. 6. Chronic pancreatitis, in remission. 7. Chronic pain syndrome. 8. Seizure disorder. 9. Probable urinary tract infection, status post treatment. 10. History of asthma, but no acute exacerbation. Barber Dial D.O. Gwendolyn HarrisBrooklyn Hospital Centerradha N.PDeng DR: SHYANNE JOB#: [id number] CC: DENI
[2016-10-15] MEDS ORDERED: LINZESS145 MCG PO (16:17)
== END 2016-08-24 20:57 | disposition home health service (06) | DRG 388 ==
LOC: EMR 12:49 → 2E 13:16 → EDBEDREQ 13:36 → 2E 16:59 → 4E 08-16 01:43
DX: K56.7 Ileus, unspecified (principal); G93.40 Encephalopathy, unspecified; J84.9 Interstitial pulmonary disease, unspecified; I95.9 Hypotension, unspecified; I50.9 Heart failure, unspecified; J44.1 Chronic obstructive pulmonary disease with (acute) exacerbation; F11.20 Opioid dependence, uncomplicated; K50.90 Crohn's disease, unspecified, without complications; F31.81 Bipolar II disorder; K86.1 Other chronic pancreatitis; K52.9 Noninfective gastroenteritis and colitis, unspecified; G40.909 Epilepsy, unspecified, not intractable, without status epilepticus; Z86.73 Personal history of transient ischemic attack (TIA), and cerebral infarction without residual deficits; K59.00 Constipation, unspecified; I10 Essential (primary) hypertension; F41.9 Anxiety disorder, unspecified; E86.0 Dehydration; M54.16 Radiculopathy, lumbar region
CPT/HCPCS: 36415; 71010; 74176; 80048; 80053; 80299; 81003; 82150; 82550; 82553; 83690; 84484; 85025; 85610; 85730; 87040; 87086; 87493; 93005; 94640; 94664; J2405; J7620; J8499

== ENCOUNTER 2016-09-03 10:39 | Inpatient (IN) | payer MEDICARE, MEDICAID ==
[~2016-09-03] VITALS: Ht 167.6 cm; Wt 74.4 kg
[~2016-09-03 10:39] MED LIST changes: +DOCUSATE SODIU100 MG ORAL; +MIRALAX17 G2 ORAL; +MYLANTA30 M1 ORAL; +NITROGLYCERIN0.4 MG SL; +TYLENOL EXTRA500 MG ORAL
[2016-09-03 10:58] VITALS: BP 117/71
[2016-09-03] MEDS ORDERED: HYDROmorphone 1 MG, DiphenhydrAMINE 25 MG in NS 55 ML IV ONE (11:00)
[2016-09-03] MEDS ORDERED: IBUPROFEN600 MG ORAL (11:00)
[2016-09-03] MEDS ORDERED: HYDROmorphone 1mg/ml Carpuject ONE ×2 (11:14→12:12)
[2016-09-03] MEDS ORDERED: DiphenhydrAMINE 50mg/ml Inj ONE (11:14)
[2016-09-03] MEDS ORDERED: HYDROmorphone 1mg/ml Carpuject IVP ONE (12:15)
[2016-09-03 12:20] LABS: BASOPHILS % (AUTO) 0.6 % (0.0-2.0); EOSINOPHILS % (AUTO) 1.2 % (0.0-3.0); LYMPHOCYTES % (AUTO) 21.1 % (20.0-45.0); MEAN CORPUSCULAR HGB CONC 30.7 G/DL (32.0-36.0); MEAN CORPUSCULAR VOLUME 84 FL (80-99); MEAN PLATELET VOLUME 6.9 FL (6.5-10.1); MONOCYTES % (AUTO) 10.9 % (1.0-10.0); NEUTROPHILS % (AUTO) 66.2 % (45.0-75.0); PLATELET COUNT 478 K/UL (150-450); RED BLOOD COUNT 4.56 M/UL (4.20-5.40); RED CELL DISTRIBUTION WIDTH 16.3 % (11.6-14.8); WHITE BLOOD COUNT 12.3 K/UL (4.8-10.8)
[2016-09-03 12:33] LABS: ALANINE AMINOTRANSFERASE 10 U/L (3-33); ALBUMIN/GLOBULIN RATIO 0.5 (1.0-2.7); ANION GAP 17 (5-15); ASPARTATE AMINO TRANSFERASE 13 U/L (5-40); CALCIUM 8.9 mg/dL (8.6-10.2); CARBON DIOXIDE 20 mEQ/L (20-30); CHLORIDE 95 mEQ/L (98-107); CREATININE 1.1 mg/dL (0.5-0.9); GLOMERULAR FILTRATION RATE > 60 mL/min (>60); HEMOLYSIS 0; LIPASE 10 U/L (< 60); POTASSIUM 3.7 mEQ/L (3.4-4.9); SODIUM 132 mEQ/L (135-145); TOTAL PROTEIN 8.6 g/dL (6.6-8.7)
[2016-09-03 13:00] VITALS: BP 100/60
--- NOTE | 2016-09-03 14:23 | Emergency Room Report ---
History of Present Illness General Chief Complaint: Abdominal Pain Source: Patient Present Illness HPI Patient has a history of Crohn's disease. Patient presents emergency department today complaining of severe abdominal pain typical for her usual Crohn's disease exacerbation. Patient has had multiple surgeries in the past for bowel obstruction as well as lysis of adhesions. Symptoms noted to be severe. Patient was recently admitted for ileus and stool impaction. She presents emergency department today complaining nausea vomiting abdominal discomfort associate with diarrhea typical for her severe exacerbation. She is requesting pain medications. States that she's not tolerating any oral fluids. Symptoms noted to be severe. Patient primary care physician is Dr. Bayron Benedict.No other modifying factors. No other associated signs and symptoms. No other complaints were noted. Allergies: Coded Allergies: No Known Allergies (Verified , 05/21/06) Patient History Past Medical History: HTN, [place], other - crohn's disease Past Surgical History: other - small bowel obstructio, lysis of adhesio Social History: Denies: alcohol use, drug use, smoking Reviewed Nursing Documentation: PMH: Agreed, PSxH: Agreed Nursing Documentation-PMH Hx Cardiac Problems: Yes - [place] Hx Hypertension: No Hx Pacemaker: No Hx Asthma: Yes Hx COPD: Yes Hx Diabetes: No Hx Cancer: No Hx Gastrointestinal Problems: Yes - Crohn's; C-diff; MRSA Hx Dialysis: No Hx Neurological Problems: Yes Hx Cerebrovascular Accident: Yes - 2005 Hx Seizures: Yes Hx Epilepsy: Yes Hx Vertigo: Yes Hx Dizziness: Yes Hx Syncope: Yes Hx Headaches: Yes Hx Weakness: Yes Hx Fatigue: Yes Review of Systems All Other Systems: negative except mentioned in HPI Physical Exam Vital Signs Date Time Temp Pulse Resp B/P Pulse Ox O2 Delivery O2 Flow Rate FiO2 09/03/16 10:41 99.5 104 18 101/67 100 Room Air Sp02 EP Interpretation: reviewed, normal General Appearance: alert, moderate distress Head: atraumatic Eyes: bilateral eye normal inspection ENT: normal ENT inspection, hearing grossly normal, normal voice Neck: normal inspection, full range of motion, supple, no bony tend Respiratory: normal inspection, lungs clear, normal breath sounds, no respiratory distress, no retraction, no wheezing Cardiovascular #1: regular rate, rhythm, no edema Gastrointestinal: soft, no guarding, distended, other - diffuse be ten, decreased bowel sounds Genitourinary: no CVA tenderness Musculoskeletal: normal inspection, back normal, normal range of motion Neurologic: normal inspection, alert, responsive, speech normal Psychiatric: anxious Skin: normal inspection, normal color, no rash Medical Decision Making Diagnostic Impression: Primary Impression: Crohn's disease Additional Impressions: Diarrhea Abdominal pain Chronic pain ER Course Patient presents to the emergency department today complaining of abdominal pain. Differential considerations include acute pancreatitis, cholecystitis, gastritis, hepatitis, appendicitis just to name a few. Given the severity of the patient's presentation I felt this is a highly complex patient. This patient required extensive workup. Patient laboratory workup showed an elevated white blood cell count. Patient received multiple doses of pain medications and fluids and still had continued have pain. Case was discussed in detail with Dr. Bayron Benedict who knows the patient well and recommended patient be admitted. Case was also discussed with Dr. Wagner. Labs Test 09/03/16 12:10 White Blood Count 12.3 K/UL (4.8-10.8) Red Blood Count 4.56 M/UL (4.20-5.40) Hemoglobin 11.8 G/DL (12.0-16.0) Hematocrit 38.5 % (37.0-47.0) Mean Corpuscular Volume 84 FL (80-99) Mean Corpuscular Hemoglobin 26.0 PG (27.0-31.0) Mean Corpuscular Hemoglobin Concent 30.7 G/DL (32.0-36.0) Red Cell Distribution Width 16.3 % (11.6-14.8) Platelet Count 478 K/UL (150-450) Mean Platelet Volume 6.9 FL (6.5-10.1) Neutrophils (%) (Auto) 66.2 % (45.0-75.0) Lymphocytes (%) (Auto) 21.1 % (20.0-45.0) Monocytes (%) (Auto) 10.9 % (1.0-10.0) Eosinophils (%) (Auto) 1.2 % (0.0-3.0) Basophils (%) (Auto) 0.6 % (0.0-2.0) Sodium Level 132 mEQ/L (135-145) Potassium Level 3.7 mEQ/L (3.4-4.9) Chloride Level 95 mEQ/L (98-107) Carbon Dioxide Level 20 mEQ/L (20-30) Anion Gap 17 (5-15) Blood Urea Nitrogen 29 mg/dL (7-23) Creatinine 1.1 mg/dL (0.5-0.9) Estimat Glomerular Filtration Rate > 60 mL/min (>60) Glucose Level 90 mg/dL (74-106) Calcium Level 8.9 mg/dL (8.6-10.2) Total Bilirubin < 0.2 mg/dL (0.0-1.2) Aspartate Amino Transf (AST/SGOT) 13 U/L (5-40) Alanine Aminotransferase (ALT/SGPT) 10 U/L (3-33) Alkaline Phosphatase 102 U/L (35-104) Total Protein 8.6 g/dL (6.6-8.7) Albumin 2.9 g/dL (3.5-5.2) Globulin 5.7 g/dL Albumin/Globulin Ratio 0.5 (1.0-2.7) Lipase 10 U/L (< 60) Last Vital Signs Date Time Temp Pulse Resp B/P Pulse Ox O2 Delivery O2 Flow Rate FiO2 09/03/16 13:00 90 20 100/60 98 Room Air 09/03/16 12:56 99.1 Status: improved Disposition: ADMITTED INPATIENT Condition: Serious Referrals: BAYRON BENEDICT (PCP) ERNESTINE CARDONA M.D. Sep 03, 2016 14:23
[2016-09-03 15:08] LABS: APPEARANCE,URINE SLIGHTLY CLOUDY; KETONES,URINE NEGATIVE (NEGATIVE); LEUKOCYTE ESTERASE ,URINE 1+ (NEGATIVE); NITRITE,URINE NEGATIVE (NEGATIVE); PH,URINE 6.5 (4.5-8.0); PROTEIN,URINE 2+ (NEGATIVE); UROBILINOGEN,URINE NORMAL MG/DL (0.0-1.0)
[2016-09-03 15:18] LABS: BACTERIA,URINE FEW /HPF; SQUAMOUS EPITHELIAL CELL,UR FEW /LPF (NONE/OCC)
[2016-09-03 16:40] VITALS: BP 112/69
[2016-09-03] MEDS ORDERED: SEROQUEL200 MG ORAL (17:04)
[2016-09-03] MEDS ORDERED: CARAFATE1 G1 ORAL (17:04)
[2016-09-03] MEDS ORDERED: PENTASA500 MG ORAL (17:04)
[2016-09-03] MEDS ORDERED: RISPERDAL0.5 MG ORAL (17:04)
[2016-09-03] MEDS ORDERED: MONTELUKAST SOD10 MG ORAL (17:04)
[2016-09-03] MEDS ORDERED: TRAZODONE HCL150 MG ORAL (17:04)
[2016-09-03] MEDS ORDERED: ZOLPIDEM TARTRA10 MG ORAL (17:04)
[2016-09-03] MEDS ORDERED: BUPROPION HCL100 MG ORAL (17:04)
--- NOTE | 2016-09-03 17:20 | Consultation ---
History of Present Illness General Date patient seen: Sep 03, 2016 Chief Complaint: Abdominal Pain Reason for Consultation: inpatient management Present Illness HPI 65 year old patient with hx of Crohn's disease, Asthma/copd recent hospitalization to [facility], resented to emergency department today complaining of severe abdominal pain typical for her usual Crohn's disease exacerbation, nausea vomiting abdominal discomfort associate with diarrhea. Patient has had multiple surgeries in the past for bowel obstruction as well as lysis of adhesions. Pt is admitted for flare of Crohn disease. Allergies: Coded Allergies: No Known Allergies (Verified , 05/21/06) Medication History Scheduled Bupropion Hcl* (Bupropion Hcl*), 100 MG ORAL DAILY, (Reported) Docusate Sodium* (Docusate Sodium*), 100 MG ORAL THREE TIMES A DAY, (Reported) Duloxetine Hcl* (Cymbalta*), 60 MG ORAL DAILY, (Reported) Ibuprofen* (Motrin*), 800 MG ORAL THREE TIMES A DAY, (Reported) Levetiracetam* (Levetiracetam*), 1,500 MG ORAL TWICE A DAY, (Reported) Mesalamine (Asacol Hd), 800 MG ORAL THREE TIMES A DAY, (Reported) Mesalamine (Pentasa), 1,000 MG ORAL TID, (Reported) Mirtazapine* (Mirtazapine*), 30 MG ORAL BEDTIME, (Reported) Montelukast Sodium* (Montelukast Sodium*), 10 MG ORAL DAILY, (Reported) Polyethylene Glycol 3350* (Miralax*), 17 GM ORAL BEDTIME, (Reported) Quetiapine Fumarate* (Seroquel*), 100 MG ORAL BEDTIME, (Reported) Quetiapine Fumarate* (Seroquel*), 200 MG ORAL DAILY, (Reported) Risperidone* (Risperdal*), 0.5 MG ORAL BEDTIME, (Reported) Sucralfate* (Carafate*), 1 GM ORAL TID, (Reported) Topiramate* (Topamax*), 25 MG ORAL TWICE A DAY, (Reported) Scheduled PRN Diphenhydramine HCl (Benadryl), 25 MG PO Q6HR PRN for Itching, (Reported) Nitroglycerin (Nitroglycerin), 0.4 MG SL Q5MIN X3 PRN for CHEST PAIN, (Reported) Trazodone* (Trazodone*), 100 MG ORAL BEDTIME PRN for Insomnia, (Reported) Zolpidem Tartrate* (Zolpidem Tartrate*), 10 MG ORAL BEDTIME PRN for Insomnia, ( Reported) Discontinued Medications Acetaminophen* (Tylenol Extra Strength*), 650 MG ORAL Q4HR PRN for Mild Pain/ Temp > 100.5, (Reported) Discontinued Reason: MD discontinued med Al Hydroxide/mg Hydroxide (Mag-Al Liquid), 30 ML ORAL Q6HR PRN for DYSPEPSIA, ( Reported) Discontinued Reason: Therapy completed Patient History Healthcare decision maker Resuscitation status Advanced Directive on File Past Medical/Surgical History Past Medical/Surgical History: (1) Psychosis (2) IBD (inflammatory bowel disease) (3) Crohns disease (4) Seizure (5) Asthma Review of Systems Gastrointestinal: Reports: diarrhea, vomiting Physical Exam General Appearance: WD/WN Lines, tubes and drains: peripheral HEENT: normocephalic, atraumatic Neck: normal alignment Respiratory/Chest: chest wall non-tender, lungs clear Cardiovascular/Chest: normal peripheral pulses Abdomen: normal bowel sounds, non tender Genitourinary/Rectal: normal genital exam Extremities: normal range of motion Last 24 Hour Vital Signs Date Time Temp Pulse Resp B/P Pulse Ox O2 Delivery O2 Flow Rate FiO2 09/03/16 13:00 90 20 100/60 98 Room Air 09/03/16 12:56 99.1 09/03/16 12:05 99.1 09/03/16 10:58 99.1 99 13 117/71 100 Room Air 09/03/16 10:41 99.5 104 18 101/67 100 Room Air Laboratory Tests Test 09/03/16 12:10 09/03/16 14:47 White Blood Count 12.3 K/UL (4.8-10.8) H Red Blood Count 4.56 M/UL (4.20-5.40) Hemoglobin 11.8 G/DL (12.0-16.0) L Hematocrit 38.5 % (37.0-47.0) Mean Corpuscular Volume 84 FL (80-99) Mean Corpuscular Hemoglobin 26.0 PG (27.0-31.0) L Mean Corpuscular Hemoglobin Concent 30.7 G/DL (32.0-36.0) L Red Cell Distribution Width 16.3 % (11.6-14.8) H Platelet Count 478 K/UL (150-450) H Mean Platelet Volume 6.9 FL (6.5-10.1) Neutrophils (%) (Auto) 66.2 % (45.0-75.0) Lymphocytes (%) (Auto) 21.1 % (20.0-45.0) Monocytes (%) (Auto) 10.9 % (1.0-10.0) H Eosinophils (%) (Auto) 1.2 % (0.0-3.0) Basophils (%) (Auto) 0.6 % (0.0-2.0) Sodium Level 132 mEQ/L (135-145) L Potassium Level 3.7 mEQ/L (3.4-4.9) Chloride Level 95 mEQ/L (98-107) L Carbon Dioxide Level 20 mEQ/L (20-30) Anion Gap 17 (5-15) H Blood Urea Nitrogen 29 mg/dL (7-23) H Creatinine 1.1 mg/dL (0.5-0.9) H Estimat Glomerular Filtration Rate > 60 mL/min (>60) Glucose Level 90 mg/dL (74-106) Calcium Level 8.9 mg/dL (8.6-10.2) Total Bilirubin < 0.2 mg/dL (0.0-1.2) Aspartate Amino Transf (AST/SGOT) 13 U/L (5-40) Alanine Aminotransferase (ALT/SGPT) 10 U/L (3-33) Alkaline Phosphatase 102 U/L (35-104) Total Protein 8.6 g/dL (6.6-8.7) Albumin 2.9 g/dL (3.5-5.2) L Globulin 5.7 g/dL Albumin/Globulin Ratio 0.5 (1.0-2.7) L Lipase 10 U/L (< 60) Urine Color Yellow Urine Appearance Slightly cloudy Urine pH 6.5 (4.5-8.0) Urine Specific Justin 1.015 (1.005-1.035) Urine Protein 2+ (NEGATIVE) H Urine Glucose (UA) Negative (NEGATIVE) Urine Ketones Negative (NEGATIVE) Urine Occult Blood 3+ (NEGATIVE) H Urine Nitrite Negative (NEGATIVE) Urine Bilirubin Negative (NEGATIVE) Urine Urobilinogen Normal MG/DL (0.0-1.0) Urine Leukocyte Esterase 1+ (NEGATIVE) H Urine RBC 5-10 /HPF (0 - 2) H Urine WBC 5-10 /HPF (0 - 2) H Urine Squamous Epithelial Cells Few /LPF (NONE/OCC) Urine Bacteria Few /HPF (NONE) Height (Feet): 5 Height (Inches): 6.00 Weight (Pounds): 164 Assessment/Plan Problem List: (1) Nausea and vomiting (2) IBD (inflammatory bowel disease) ICD Codes: K63.89 - Other specified diseases of intestine SNOMED: 65371465 (3) Asthma ICD Codes: J45.909 - Unspecified asthma, uncomplicated SNOMED: 075366665 (4) Interstitial lung disease ICD Codes: J84.9 - Interstitial pulmonary disease, unspecified SNOMED: 55899404, 488141526 (5) Seizure ICD Codes: R56.9 - Unspecified convulsions SNOMED: 19371542 (6) Psychosis ICD Codes: F29 - Unspecified psychosis not due to a substance or known physiological condition SNOMED: 40682478 (7) Crohns disease ICD Codes: K50.90 - Crohns disease SNOMED: 26257879 (8) History of exploratory laparotomy ICD Codes: Z98.89 - Other specified postprocedural states SNOMED: 35151114, 19265307, 750491453 Assessment/Plan NPO antiinflammatory Iv fluids GI evaluation check electrolytes paracenthesis if enough fluid. DWAYNE SOTO Sep 03, 2016 17:20
[2016-09-03] MEDS ORDERED: TraZODone 100mg tab ORAL PRN (17:30)
[2016-09-03] MEDS ORDERED: Miralax 17gm pkt ORAL PRN (18:00)
[2016-09-03] MEDS ORDERED: Mylanta II UD 30ml ORAL PRN (18:00)
[2016-09-03] MEDS ORDERED: Nitroglycerin Subl 0.4mg tab (Bottle Of 25) SL PRN (18:00)
[2016-09-03] MEDS: Sucralfate 1gm tab ORAL SCH (18:00)
[2016-09-03] MEDS ORDERED: DiphenhydrAMINE 50mg/ml Inj IVP PRN (18:00)
[2016-09-03] MEDS ORDERED: Morphine Sulfate 2mg/ml Inj IVP PRN (18:00)
[2016-09-03] MEDS: D5 1/2NS 1,000 ML IV SCH (18:40)
[2016-09-03] MEDS: Miralax 17gm pkt ORAL SCH (21:00)
[2016-09-03] MEDS: Topiramate 25mg tab ORAL SCH (21:08)
[2016-09-03] MEDS: HYDROmorphone 1mg/ml Carpuject IVP PRN (21:09)
[2016-09-03] MEDS: Heparin 5000 units/ml inj SUBQ SCH (21:10)
[2016-09-04] VITALS: BP 103/59
[2016-09-04] MEDS: HYDROmorphone 1mg/ml Carpuject IVP PRN ×5 (03:37→23:00)
[2016-09-04] MEDS: D5 1/2NS 1,000 ML IV SCH ×2 (03:40→18:55)
[2016-09-04 04:00] VITALS: BP 94/60
[2016-09-04 08:00] VITALS: BP 106/55
[2016-09-04 08:04] LABS: BASOPHILS % (AUTO) 0.6 % (0.0-2.0); EOSINOPHILS % (AUTO) 1.2 % (0.0-3.0); LYMPHOCYTES % (AUTO) 26.9 % (20.0-45.0); MEAN CORPUSCULAR HEMOGLOBIN 25.6 PG (27.0-31.0); MEAN CORPUSCULAR HGB CONC 30.2 G/DL (32.0-36.0); MEAN CORPUSCULAR VOLUME 85 FL (80-99); MEAN PLATELET VOLUME 6.7 FL (6.5-10.1); MONOCYTES % (AUTO) 10.8 % (1.0-10.0); NEUTROPHILS % (AUTO) 60.4 % (45.0-75.0); PLATELET COUNT 462 K/UL (150-450); RED CELL DISTRIBUTION WIDTH 16.3 % (11.6-14.8); WHITE BLOOD COUNT 7.2 K/UL (4.8-10.8)
[2016-09-04 08:16] LABS: ALANINE AMINOTRANSFERASE 8 U/L (3-33); ALBUMIN/GLOBULIN RATIO 0.4 (1.0-2.7); AMYLASE 36 U/L (10-110); ANION GAP 15 (5-15); ASPARTATE AMINO TRANSFERASE 11 U/L (5-40); CALCIUM 9.1 mg/dL (8.6-10.2); CARBON DIOXIDE 23 mEQ/L (20-30); CHLORIDE 100 mEQ/L (98-107); CREATININE 0.8 mg/dL (0.5-0.9); GLOMERULAR FILTRATION RATE > 60 mL/min (>60); HEMOLYSIS 0; LIPASE 10 U/L (< 60); POTASSIUM 3.5 mEQ/L (3.4-4.9); SODIUM 138 mEQ/L (135-145); TOTAL PROTEIN 8.2 g/dL (6.6-8.7)
[2016-09-04] MEDS: Sucralfate 1gm tab ORAL SCH ×3 (08:49→18:54)
[2016-09-04] MEDS: BuPROPion SR 100mg tab ORAL SCH (08:50)
[2016-09-04] MEDS: Montelukast 10mg tablet ORAL SCH (08:50)
[2016-09-04] MEDS: QUEtiapine 200mg tab ORAL SCH (08:50)
[2016-09-04] MEDS: Topiramate 25mg tab ORAL SCH ×2 (08:50→18:55)
[2016-09-04] MEDS: DULoxetine 30mg cap ORAL SCH (08:50)
[2016-09-04] MEDS: Heparin 5000 units/ml inj SUBQ SCH ×2 (08:54→21:22)
[2016-09-04 11:57] VITALS: BP 96/54
--- NOTE | 2016-09-04 13:08 | GI Initial Consult Note ---
History of Present Illness General Date patient seen: Sep 04, 2016 Time patient seen: 10:00 Reason for Hospitalization: Abdominal Pain Referring physician: BAYRON BENEDICT Reason for Consultation: ABDOMINAL PAIN Present Illness HPI Patient has a history of Crohn's disease. Patient presents emergency department today complaining of severe abdominal pain typical for her usual Crohn's disease exacerbation. Patient has had multiple surgeries in the past for bowel obstruction as well as lysis of adhesions. Symptoms noted to be severe. Patient was recently admitted for ileus and stool impaction. She presents emergency department today complaining nausea vomiting abdominal discomfort associate with diarrhea typical for her severe exacerbation. She is requesting pain medications. States that she's not tolerating any oral fluids. Symptoms noted to be severe. Patient primary care physician is Dr. Bayron Benedict.No other modifying factors. No other associated signs and symptoms. No other complaints were noted. GI CONSULT: HPI as noted above. GI consulted for abdominal pain. This patient known to us previously admitted a few weeks prior for stool impaction 08/27 to [facility]. She presents c/o of abdominal pain with diarrhea x 3 days and hypoalbuminemia. Lipase unremarkable. Abdominal US taken in ER. Endoscopy Procedure Note Indication for Procedure: CD, gerd Procedures Performed: EGD, colonoscopy Operative Findings/Diagnosis: , CD KRISTYNICOLESHERYL CARODAD - Apr 29, 2016 12:35 Home Meds Reported Medications Mesalamine (PENTASA) 500 Mg Capsule.er, 1000 MG ORAL TID, #30 CAP 0 Refills 09/03/16 Montelukast Sodium* (MONTELUKAST SODIUM*) 10 Mg Tablet, 10 MG ORAL DAILY, TAB 09/03/16 Quetiapine Fumarate* (SEROQUEL*) 200 Mg Tablet, 200 MG ORAL DAILY, TAB 09/03/16 Zolpidem Tartrate* (ZOLPIDEM TARTRATE*) 10 Mg Tablet, 10 MG ORAL BEDTIME Y for Insomnia, TAB 0 Refills 09/03/16 Risperidone* (RISPERDAL*) 0.5 Mg Tablet, 0.5 MG ORAL BEDTIME, #30 TAB 0 Refills 09/03/16 Bupropion Hcl* (BUPROPION HCL*) 100 Mg Tablet, 100 MG ORAL DAILY, TAB 09/03/16 Trazodone* (TRAZODONE*) 150 Mg Tablet, 100 MG ORAL BEDTIME Y for Insomnia, TAB 09/03/16 Sucralfate* (CARAFATE*) 1 Gm Tablet, 1 GM ORAL TID, TAB 09/03/16 Ibuprofen* (MOTRIN*) 600 Mg Tablet, 800 MG ORAL THREE TIMES A DAY, #30 TAB 0 Refills 09/03/16 Mesalamine (ASACOL HD) 800 Mg Tablet.dr, 800 MG ORAL THREE TIMES A DAY, TAB Do not break outer coating 08/24/16 Polyethylene Glycol 3350* (MIRALAX*) 17 Gm Powd.pack, 17 GM ORAL BEDTIME, PACKET 08/24/16 Nitroglycerin (NITROGLYCERIN) 0.4 Mg Tab.subl, 0.4 MG SL Q5MIN X3 Y for CHEST PAIN, TAB 08/24/16 Docusate Sodium* (DOCUSATE SODIUM*) 100 Mg Capsule, 100 MG ORAL THREE TIMES A DAY, CAP 08/24/16 Topiramate* (TOPAMAX*) 25 Mg Tablet, 25 MG ORAL TWICE A DAY, #60 TAB 0 Refills 07/19/16 Quetiapine Fumarate* (SEROQUEL*) 200 Mg Tablet, 100 MG ORAL BEDTIME, TAB 07/19/16 Mirtazapine* (MIRTAZAPINE*) 15 Mg Tablet, 30 MG ORAL BEDTIME, TAB 07/19/16 Levetiracetam* (LEVETIRACETAM*) 500 Mg Tablet, 1500 MG ORAL TWICE A DAY, #60 TAB 0 Refills 07/19/16 Duloxetine Hcl* (CYMBALTA*) 60 Mg Capsule.dr, 60 MG ORAL DAILY, CAP 07/19/16 Diphenhydramine HCl (Benadryl) 25 Mg Capsule, 25 MG PO Q6HR Y for Itching, CAP 07/19/16 Discontinued Reported Medications Al Hydroxide/mg Hydroxide (Mag-Al Liquid) 30 Ml Oral.susp, 30 ML ORAL Q6HR Y for DYSPEPSIA, ML 08/24/16 Acetaminophen* (TYLENOL EXTRA STRENGTH*) 500 Mg Tablet, 650 MG ORAL Q4HR Y for Mild Pain/Temp > 100.5, TAB 0 Refills 08/24/16 Med list reviewed/reconciled: Yes Allergies: Coded Allergies: No Known Allergies (Verified , 05/21/06) Patient History History Provided By: Patient, Medical Record [facility] Narrative Patient History Past Medical History: HTN, [place], other - Crohn's disease Past Surgical History: other - small bowel obstruction, lysis of adhesion Social History: Denies: alcohol use, drug use, smoking Reviewed Nursing Documentation: PMH: Agreed, PSxH: Agreed Nursing Documentation-PMH Hx Cardiac Problems: Yes - [place] Hx Hypertension: No Hx Pacemaker: No Hx Asthma: Yes Hx COPD: Yes Hx Diabetes: No Hx Cancer: No Hx Gastrointestinal Problems: Yes - Crohn's; C-diff; MRSA Hx Dialysis: No Hx Neurological Problems: Yes Hx Cerebrovascular Accident: Yes - 2004 Hx Seizures: Yes Hx Epilepsy: Yes Hx Vertigo: Yes Hx Dizziness: Yes Hx Syncope: Yes Hx Headaches: Yes Hx Weakness: Yes Hx Fatigue: Yes Review of Systems All Other Systems: negative except mentioned in HPI Physical Exam Vital Signs Date Time Temp Pulse Resp B/P Pulse Ox O2 Delivery O2 Flow Rate FiO2 09/03/16 10:41 99.5 104 18 101/67 100 Room Air Sp02 EP Interpretation: reviewed Labs Laboratory Tests Test 09/03/16 14:47 09/04/16 07:40 Urine Color Yellow Urine Appearance Slightly cloudy Urine pH 6.5 (4.5-8.0) Urine Specific [place] 1.015 (1.005-1.035) Urine Protein 2+ (NEGATIVE) H Urine Glucose (UA) Negative (NEGATIVE) Urine Ketones Negative (NEGATIVE) Urine Occult Blood 3+ (NEGATIVE) H Urine Nitrite Negative (NEGATIVE) Urine Bilirubin Negative (NEGATIVE) Urine Urobilinogen Normal MG/DL (0.0-1.0) Urine Leukocyte Esterase 1+ (NEGATIVE) H Urine RBC 5-10 /HPF (0 - 2) H Urine WBC 5-10 /HPF (0 - 2) H Urine Squamous Epithelial Cells Few /LPF (NONE/OCC) Urine Bacteria Few /HPF (NONE) White Blood Count 7.2 K/UL (4.8-10.8) Red Blood Count 4.50 M/UL (4.20-5.40) Hemoglobin 11.5 G/DL (12.0-16.0) L Hematocrit 38.1 % (37.0-47.0) Mean Corpuscular Volume 85 FL (80-99) Mean Corpuscular Hemoglobin 25.6 PG (27.0-31.0) L Mean Corpuscular Hemoglobin Concent 30.2 G/DL (32.0-36.0) L Red Cell Distribution Width 16.3 % (11.6-14.8) H Platelet Count 462 K/UL (150-450) H Mean Platelet Volume 6.7 FL (6.5-10.1) Neutrophils (%) (Auto) 60.4 % (45.0-75.0) Lymphocytes (%) (Auto) 26.9 % (20.0-45.0) Monocytes (%) (Auto) 10.8 % (1.0-10.0) H Eosinophils (%) (Auto) 1.2 % (0.0-3.0) Basophils (%) (Auto) 0.6 % (0.0-2.0) Activated Partial Thromboplast Time 28 SEC (23-33) Sodium Level 138 mEQ/L (135-145) Potassium Level 3.5 mEQ/L (3.4-4.9) Chloride Level 100 mEQ/L (98-107) Carbon Dioxide Level 23 mEQ/L (20-30) Anion Gap 15 (5-15) Blood Urea Nitrogen 19 mg/dL (7-23) Creatinine 0.8 mg/dL (0.5-0.9) Estimat Glomerular Filtration Rate > 60 mL/min (>60) Glucose Level 96 mg/dL (74-106) Calcium Level 9.1 mg/dL (8.6-10.2) Total Bilirubin < 0.2 mg/dL (0.0-1.2) Aspartate Amino Transf (AST/SGOT) 11 U/L (5-40) Alanine Aminotransferase (ALT/SGPT) 8 U/L (3-33) Alkaline Phosphatase 99 U/L (35-104) Total Protein 8.2 g/dL (6.6-8.7) Albumin 2.7 g/dL (3.5-5.2) L Globulin 5.5 g/dL Albumin/Globulin Ratio 0.4 (1.0-2.7) L Amylase Level 36 U/L (10-110) Lipase 10 U/L (< 60) General Appearance: well appearing, no apparent distress, alert Head: normocephalic EENT: normal ENT inspection Neck: supple Respiratory: normal breath sounds, no respiratory distress Cardiovascular: normal rate Gastrointestinal: other - abdominal bloating / LLQ pump Musculoskeletal: normal inspection Neurologic: normal inspection, alert, oriented x3, responsive Psychiatric: normal inspection, judgement/insight normal Skin: normal inspection, normal color, no rash, warm/dry Lymphatic: normal inspection, no adenopathy Current Medications Current Medications Medications (Trade) Dose Ordered Sig/Vaibhav Route PRN Reason Start Time Stop Time Status Last Admin Dose Admin Acetaminophen (Tylenol) 650 mg Q4H PRN ORAL fever 09/03/16 18:00 10/03/16 17:59 Al Hydroxide/Mg Hydroxide (Mylanta II) 30 ml Q6H PRN ORAL dyspepsia 09/03/16 18:00 10/03/16 17:59 Bupropion HCl (Wellbutrin SR) 100 mg DAILY ORAL 09/04/16 09:00 10/04/16 08:59 09/04/16 08:50 Dextrose (Dextrose 50%) STAT PRN IV Hypoglycemia 09/03/16 18:00 10/03/16 17:59 Dextrose/Sodium Chloride (D5 0.45% NS) 1,000 ml @ 75 mls/hr [id number] IV 09/03/16 18:00 10/03/16 17:59 09/04/16 03:40 Diphenhydramine HCl (Benadryl) 25 mg Q6H PRN IVP Itching 09/03/16 18:00 10/03/16 17:59 Diphenhydramine HCl (Benadryl) 25 mg Q6H PRN ORAL Itching/Pruritis 09/03/16 18:00 10/03/16 17:59 Duloxetine HCl (Cymbalta) 60 mg DAILY ORAL 09/04/16 09:00 10/04/16 08:59 09/04/16 08:50 Heparin Sodium (Porcine) (Heparin 5000 units/ml) 5,000 units EVERY 12 HOURS SUBQ 09/03/16 21:00 10/03/16 20:59 09/04/16 08:54 Hydromorphone HCl (Dilaudid) 1 mg Q3H PRN IVP Severe Pain (Pain Scale 7-10) 09/03/16 18:45 09/10/16 18:44 09/04/16 09:55 Levetiracetam (Keppra) 1,500 mg TWICE A DAY ORAL 09/03/16 18:00 10/03/16 17:59 09/04/16 08:50 Mirtazapine (Remeron) 30 mg BEDTIME ORAL 09/03/16 21:00 10/03/16 20:59 09/03/16 21:08 Montelukast Sodium (Singulair) 10 mg DAILY ORAL 09/04/16 09:00 10/04/16 08:59 09/04/16 08:50 Nitroglycerin (Ntg) 0.4 mg Q5M X 3 DOSES PRN SL Prn Chest Pain 09/03/16 18:00 10/03/16 17:59 Ondansetron HCl (Zofran) 4 mg Q6H PRN IVP Nausea & Vomiting 09/03/16 18:00 10/03/16 17:59 Polyethylene Glycol (Miralax) 17 gm BEDTIME ORAL 09/03/16 21:00 10/03/16 20:59 Polyethylene Glycol (Miralax) 17 gm HSPRN PRN ORAL Constipation 09/03/16 18:00 10/03/16 17:59 Quetiapine Fumarate (SEROquel) 100 mg BEDTIME ORAL 09/03/16 21:00 10/03/16 20:59 09/03/16 21:08 Quetiapine Fumarate (SEROquel) 200 mg DAILY ORAL 09/04/16 09:00 10/04/16 08:59 09/04/16 08:50 Sucralfate (Carafate) 1 gm TID ORAL 09/03/16 18:00 10/03/16 17:59 09/04/16 08:49 Topiramate (Topamax) 25 mg TWICE A DAY ORAL 09/03/16 18:00 10/03/16 17:59 09/04/16 08:50 Trazodone HCl 100 mg 100 mg HSPRN PRN ORAL Insomnia 09/03/16 17:30 10/03/16 17:29 GI: Plan Problems: (1) Diarrhea (2) Crohn's disease (3) Chronic pain (4) History of exploratory laparotomy (5) Nausea and vomiting Plan fu Abd U/S s/p EGD/colon 2015 >> Gastric Ulcer, Crohns diarrhea most likely from Crohn's Flare ordered cdiff, stool studies mesalamine for Crohns FLD, adv as tolerated ppi pain mgmt fu labs Discussed with Dr. Gallegos. Thank you for referring this patient, we will follow. Tara Scott N.P. Sep 04, 2016 13:08
--- NOTE | 2016-09-04 15:59 | Diagnostic Imaging Report ---
Indication: Abdominal pain and distention Technique: Sosa-scale and duplex images of the upper abdomen were obtained Comparison: 01/16/2008 Findings: . Gallbladder is unremarkable, without stones, wall thickening, nor pericholecystic fluid. Sonographic Steiner's sign is negative. Common bile duct measures 4 mm in diameter. No intrahepatic biliary ductal dilatation. Liver demonstrates normal echogenicity, no focal abnormality. Portal vein and hepatic veins are patent.. Pancreas is incompletely visualized due to overlying bowel gas, visualized portions are unremarkable. Spleen is unremarkable. Left kidney measures 10.7 cm in length. Right kidney measures 11.3 cm length. Right kidney demonstrates normal echogenicity. Left kidney demonstrates equivocally slightly increased echogenicity. There is no hydronephrosis. There is a small left renal cyst. . Abdominal aorta is partially obscured by bowel gas, visualized portions are non-aneurysmal. Impression: Negative for gallstones or dilated ducts Equivocal slightly increased left renal echogenicity, if real could indicate medical renal disease Note suboptimal visualization of the abdominal aorta and pancreas
[2016-09-04 16:00] VITALS: BP 110/65
--- NOTE | 2016-09-04 17:20 | Pulmonology Progress Note ---
Assessment/Plan Problems: (1) Nausea and vomiting (2) IBD (inflammatory bowel disease) (3) Asthma (4) Interstitial lung disease (5) Seizure (6) Psychosis (7) Crohns disease (8) History of exploratory laparotomy Assessment/Plan improving IV fluids GI note appreciated f/u electrolytes pain management. Subjective ROS Limited/Unobtainable: No Interval Events: doing better, Allergies: Coded Allergies: No Known Allergies (Verified , 05/21/06) Objective Last 24 Hour Vital Signs Date Time Temp Pulse Resp B/P Pulse Ox O2 Delivery O2 Flow Rate FiO2 09/04/16 16:00 99.0 81 16 110/65 100 Room Air 09/04/16 11:57 98.0 82 19 96/54 97 Room Air 09/04/16 08:00 97.9 73 21 106/55 99 Room Air 09/04/16 07:06 96.6 09/04/16 04:00 97.0 73 20 94/60 93 Room Air 09/04/16 00:00 96.6 75 20 103/59 100 Room Air Intake and Output 09/03/16 09/04/16 19:00 07:00 Intake Total 1055 ml 600 ml Balance 1055 ml 600 ml Intake Oral 0 ml IV Total 1055 ml 600 ml # Voids 4 General Appearance: WD/WN HEENT: normocephalic, atraumatic Respiratory/Chest: chest wall non-tender, lungs clear Cardiovascular: normal peripheral pulses, normal rate Abdomen: normal bowel sounds, soft, non tender Extremities: no cyanosis Laboratory Tests 09/04/16 07:40: White Blood Count 7.2, Red Blood Count 4.50, Hemoglobin 11.5L, Hematocrit 38.1, Mean Corpuscular Volume 85, Mean Corpuscular Hemoglobin 25.6L, Mean Corpuscular Hemoglobin Concent 30.2L, Red Cell Distribution Width 16.3H, Platelet Count 462H , Mean Platelet Volume 6.7, Neutrophils (%) (Auto) 60.4, Lymphocytes (%) (Auto) 26.9, Monocytes (%) (Auto) 10.8H, Eosinophils (%) (Auto) 1.2, Basophils (%) ( Auto) 0.6, Activated Partial Thromboplast Time 28, Sodium Level 138, Potassium Level 3.5, Chloride Level 100, Carbon Dioxide Level 23, Anion Gap 15, Blood Urea Nitrogen 19, Creatinine 0.8, Estimat Glomerular Filtration Rate > 60, Glucose Level 96, Calcium Level 9.1, Total Bilirubin < 0.2, Aspartate Amino Transf (AST/SGOT) 11, Alanine Aminotransferase (ALT/SGPT) 8, Alkaline Phosphatase 99, Total Protein 8.2, Albumin 2.7L, Globulin 5.5, Albumin/Globulin Ratio 0.4L, Amylase Level 36, Lipase 10 Current Medications Medications (Trade) Dose Ordered Sig/Vaibhav Route PRN Reason Start Time Stop Time Status Last Admin Dose Admin Acetaminophen (Tylenol) 650 mg Q4H PRN ORAL fever 09/03/16 18:00 10/03/16 17:59 Al Hydroxide/Mg Hydroxide (Mylanta II) 30 ml Q6H PRN ORAL dyspepsia 09/03/16 18:00 10/03/16 17:59 Bupropion HCl (Wellbutrin SR) 100 mg DAILY ORAL 09/04/16 09:00 10/04/16 08:59 09/04/16 08:50 Dextrose (Dextrose 50%) STAT PRN IV Hypoglycemia 09/03/16 18:00 10/03/16 17:59 Dextrose/Sodium Chloride (D5 0.45% NS) 1,000 ml @ 75 mls/hr [id number] IV 09/03/16 18:00 10/03/16 17:59 09/04/16 03:40 Diphenhydramine HCl (Benadryl) 25 mg Q6H PRN IVP Itching 09/03/16 18:00 10/03/16 17:59 Diphenhydramine HCl (Benadryl) 25 mg Q6H PRN ORAL Itching/Pruritis 09/03/16 18:00 10/03/16 17:59 Duloxetine HCl (Cymbalta) 60 mg DAILY ORAL 09/04/16 09:00 10/04/16 08:59 09/04/16 08:50 Heparin Sodium (Porcine) (Heparin 5000 units/ml) 5,000 units EVERY 12 HOURS SUBQ 09/03/16 21:00 10/03/16 20:59 09/04/16 08:54 Hydromorphone HCl (Dilaudid) 1 mg Q3H PRN IVP Severe Pain (Pain Scale 7-10) 09/03/16 18:45 09/10/16 18:44 09/04/16 16:39 Levetiracetam (Keppra) 1,500 mg TWICE A DAY ORAL 09/03/16 18:00 10/03/16 17:59 09/04/16 08:50 Mirtazapine (Remeron) 30 mg BEDTIME ORAL 09/03/16 21:00 10/03/16 20:59 09/03/16 21:08 Montelukast Sodium (Singulair) 10 mg DAILY ORAL 09/04/16 09:00 10/04/16 08:59 09/04/16 08:50 Nitroglycerin (Ntg) 0.4 mg Q5M X 3 DOSES PRN SL Prn Chest Pain 09/03/16 18:00 10/03/16 17:59 Ondansetron HCl (Zofran) 4 mg Q6H PRN IVP Nausea & Vomiting 09/03/16 18:00 10/03/16 17:59 Polyethylene Glycol (Miralax) 17 gm BEDTIME ORAL 09/03/16 21:00 10/03/16 20:59 Polyethylene Glycol (Miralax) 17 gm HSPRN PRN ORAL Constipation 09/03/16 18:00 10/03/16 17:59 Quetiapine Fumarate (SEROquel) 100 mg BEDTIME ORAL 09/03/16 21:00 10/03/16 20:59 09/03/16 21:08 Quetiapine Fumarate (SEROquel) 200 mg DAILY ORAL 09/04/16 09:00 10/04/16 08:59 09/04/16 08:50 Sucralfate (Carafate) 1 gm TID ORAL 09/03/16 18:00 10/03/16 17:59 09/04/16 08:49 Topiramate (Topamax) 25 mg TWICE A DAY ORAL 09/03/16 18:00 10/03/16 17:59 09/04/16 08:50 Trazodone HCl 100 mg 100 mg HSPRN PRN ORAL Insomnia 09/03/16 17:30 10/03/16 17:29 DWAYNE SOTO Sep 04, 2016 17:20
[2016-09-04 20:00] VITALS: BP 136/70
[2016-09-04] MEDS: Miralax 17gm pkt ORAL SCH (21:00)
--- NOTE | 2016-09-04 21:49 | History and Physical Report ---
DATE OF ADMISSION: 09/03/2016 CONSULTANTS: 1. Winston Malhotra M.D. 2. Rob Wagner M.D. 3. Skyler Galleogs M.D. 4. Mena Goncalves M.D. CHIEF COMPLAINT: Abdominal pain, nausea, vomiting, weakness, and shortness of breath. BRIEF HISTORY: This is a 65-year-old female, who lives at home, presents with increased nausea, vomiting, and diarrhea, and came to the office yesterday and diagnosed with the above and sent to the [facility] and diagnosed with above and admitted to medical floor for further treatment. Currently, sleeping in bed and not talking much. PAST MEDICAL HISTORY: Includes COPD, chronic pain, Crohn's, and CHF. PAST SURGICAL HISTORY: Abdominal surgery. MEDICATIONS: Include Wellbutrin, Cymbalta, Singulair, Seroquel, Remeron, MiraLax, Dilaudid, Keppra, Topamax, Carafate, Tylenol, and Benadryl. ALLERGIES: Denies. SOCIAL HISTORY: Positive smoking. No alcohol. No intravenous drug abuse. FAMILY HISTORY: Noncontributory. REVIEW OF SYSTEMS: Unavailable. PHYSICAL EXAMINATION: GENERAL: Calm in bed. Oriented x3. Slight weakness. VITAL SIGNS: Show temperature is 98 degrees, pulse 82, respirations 19, and blood pressure 96/54. CARDIOVASCULAR: No murmur. LUNGS: Poor air exchange. ABDOMEN: Positive bowel sounds. Nontender. Nondistended. EXTREMITIES: No cyanosis, clubbing, or edema. NEUROLOGIC: The patient moves all extremities slightly. LABORATORY DATA: Labs at this time show white count 12.3 and now 7.2, hemoglobin and hematocrit are 11 and 38, and platelets is 462,000. BMP is normal today. Albumin 2.7. Iron efficacy is 28. Urinalysis show 3+ occult blood and 1+ leukocyte esterase. ASSESSMENT: 1. Shortness of breath. 2. Urinary tract infection. 3. Nausea, vomiting, and diarrhea. 4. Abdominal pain. 5. Anemia. 6. Chronic obstructive pulmonary disease. 7. Chronic pain. 8. Crohn's. 9. Congestive heart failure. PLAN: 1. Continue premedications. 2. O2 and pulmonary treatment 3. Antibiotics per Infectious Disease. 4. Pain control. 5. OT, PT, and dietary evaluation. 6. CBC and BMP in the morning. 7. Resume home medications. Dr. Malhotra, Dr. Wagner, Dr. Gallegos, Dr. Goncalves, and Dr. Golden to consult. We will continue to follow this patient. Barber Dial D.O. DR: MARLENY JOB#: [id number] CC:
[2016-09-05] VITALS: BP 115/70
[2016-09-05 04:00] VITALS: BP 109/66
[2016-09-05 07:34] LABS: BASOPHILS % (AUTO) 0.8 % (0.0-2.0); LYMPHOCYTES % (AUTO) 31.5 % (20.0-45.0); MEAN CORPUSCULAR HGB CONC 30.9 G/DL (32.0-36.0); MEAN CORPUSCULAR VOLUME 84 FL (80-99); MEAN PLATELET VOLUME 6.6 FL (6.5-10.1); MONOCYTES % (AUTO) 12.4 % (1.0-10.0); NEUTROPHILS % (AUTO) 53.4 % (45.0-75.0); PLATELET COUNT 452 K/UL (150-450); RED BLOOD COUNT 4.62 M/UL (4.20-5.40); RED CELL DISTRIBUTION WIDTH 16.2 % (11.6-14.8); WHITE BLOOD COUNT 6.4 K/UL (4.8-10.8)
--- NOTE | 2016-09-05 07:41 | General Progress Note ---
Assessment/Plan Problem List: (1) Respiratory distress (2) Dyspnea (3) Chronic abdominal pain (4) SOB (shortness of breath) ICD Codes: R06.02 - Shortness of breath SNOMED: 260339236 (5) COPD (chronic obstructive pulmonary disease) ICD Codes: J44.9 - Chronic obstructive pulmonary disease SNOMED: 39906076 (6) Abdominal pain (7) UTI (urinary tract infection) ICD Codes: N39.0 - Urinary tract infection, site not specified SNOMED: 94969994 (8) CHF (congestive heart failure) ICD Codes: I50.9 - Heart failure, unspecified SNOMED: 46231411 (9) Crohns disease ICD Codes: K50.90 - Crohns disease SNOMED: 85942367 (10) Nausea and vomiting (11) Diarrhea ICD Codes: R19.7 - Diarrhea, unspecified SNOMED: 29112312 Status: stable, progressing Assessment/Plan ot pt diet abx cbc bmp am promise ltach eval Subjective Constitutional: Reports: weakness Allergies: Coded Allergies: No Known Allergies (Verified , 05/21/06) All Systems: reviewed and negative except above Subjective lethargic sleepy Objective Last 24 Hour Vital Signs Date Time Temp Pulse Resp B/P Pulse Ox O2 Delivery O2 Flow Rate FiO2 09/05/16 04:00 96.4 78 20 109/66 93 Room Air 09/05/16 00:00 98.4 78 20 115/70 94 Room Air 09/04/16 23:30 98.2 09/04/16 20:00 98.2 62 19 136/70 100 Room Air 09/04/16 16:00 99.0 81 16 110/65 100 Room Air 09/04/16 11:57 98.0 82 19 96/54 97 Room Air 09/04/16 08:00 97.9 73 21 106/55 99 Room Air Intake and Output 09/04/16 09/05/16 19:00 07:00 Intake Total 225 ml 1000 ml Balance 225 ml 1000 ml Intake Oral 400 ml IV Total 225 ml 600 ml # Voids 3 3 Laboratory Tests 09/04/16 07:40: White Blood Count 7.2, Red Blood Count 4.50, Hemoglobin 11.5L, Hematocrit 38.1, Mean Corpuscular Volume 85, Mean Corpuscular Hemoglobin 25.6L, Mean Corpuscular Hemoglobin Concent 30.2L, Red Cell Distribution Width 16.3H, Platelet Count 462H , Mean Platelet Volume 6.7, Neutrophils (%) (Auto) 60.4, Lymphocytes (%) (Auto) 26.9, Monocytes (%) (Auto) 10.8H, Eosinophils (%) (Auto) 1.2, Basophils (%) ( Auto) 0.6, Activated Partial Thromboplast Time 28, Sodium Level 138, Potassium Level 3.5, Chloride Level 100, Carbon Dioxide Level 23, Anion Gap 15, Blood Urea Nitrogen 19, Creatinine 0.8, Estimat Glomerular Filtration Rate > 60, Glucose Level 96, Calcium Level 9.1, Total Bilirubin < 0.2, Aspartate Amino Transf (AST/SGOT) 11, Alanine Aminotransferase (ALT/SGPT) 8, Alkaline Phosphatase 99, Total Protein 8.2, Albumin 2.7L, Globulin 5.5, Albumin/Globulin Ratio 0.4L, Amylase Level 36, Lipase 10 09/05/16 05:15: White Blood Count [Pending], Red Blood Count [Pending], Hemoglobin [Pending], Hematocrit [Pending], Mean Corpuscular Volume [Pending], Mean Corpuscular Hemoglobin [Pending], Mean Corpuscular Hemoglobin Concent [Pending], Red Cell Distribution Width [Pending], Platelet Count [Pending], Mean Platelet Volume [ Pending], Neutrophils (%) (Auto) [Pending], Lymphocytes (%) (Auto) [Pending], Monocytes (%) (Auto) [Pending], Eosinophils (%) (Auto) [Pending], Basophils (%) (Auto) [Pending], Sodium Level [Pending], Potassium Level [Pending], Chloride Level [Pending], Carbon Dioxide Level [Pending], Blood Urea Nitrogen [Pending], Creatinine [Pending], Estimat Glomerular Filtration Rate [Pending], Glucose Level [Pending], Calcium Level [Pending], Phosphorus Level [Pending], Magnesium Level [Pending] Height (Feet): 5 Height (Inches): 6.00 Weight (Pounds): 164 General Appearance: lethargic EENT: normal ENT inspection Neck: normal alignment Cardiovascular: normal peripheral pulses, normal rate, regular rhythm Respiratory/Chest: chest wall non-tender, lungs clear, normal breath sounds Abdomen: normal bowel sounds, non tender, soft Extremities: normal inspection Edema: no edema noted Arm (L), no edema noted Arm (R), no edema noted Leg (L), no edema noted Leg (R), no edema noted Pedal (L), no edema noted Pedal (R), no edema noted Generalized Neurologic: motor weakness Skin: normal pigmentation, warm/dry BAYRON BENEDICT Sep 05, 2016 07:41
[2016-09-05 07:42] VITALS: BP 114/66
[2016-09-05 08:03] LABS: ANION GAP 18 (5-15); CALCIUM 9.5 mg/dL (8.6-10.2); CARBON DIOXIDE 22 mEQ/L (20-30); CHLORIDE 96 mEQ/L (98-107); CREATININE 0.9 mg/dL (0.5-0.9); GLOMERULAR FILTRATION RATE > 60 mL/min (>60); HEMOLYSIS 3; MAGNESIUM 1.6 mg/dL (1.7-2.5); PHOSPHORUS 3.1 mg/dL (2.5-4.8); POTASSIUM 3.1 mEQ/L (3.4-4.9); SODIUM 136 mEQ/L (135-145)
[2016-09-05] MEDS: HYDROmorphone 1mg/ml Carpuject IVP PRN ×3 (08:27→19:41)
[2016-09-05] MEDS: D5 1/2NS 1,000 ML IV SCH (09:11)
[2016-09-05] MEDS: BuPROPion SR 100mg tab ORAL SCH (09:13)
[2016-09-05] MEDS: QUEtiapine 200mg tab ORAL SCH ×2 (09:13→20:25)
[2016-09-05] MEDS: Topiramate 25mg tab ORAL SCH ×2 (09:13→19:05)
[2016-09-05] MEDS: DULoxetine 30mg cap ORAL SCH (09:13)
[2016-09-05] MEDS: Montelukast 10mg tablet ORAL SCH (09:14)
[2016-09-05] MEDS: Heparin 5000 units/ml inj SUBQ SCH ×2 (09:14→20:26)
[2016-09-05] MEDS: Sucralfate 1gm tab ORAL SCH ×3 (09:21→19:05)
[2016-09-05 11:34] VITALS: BP 108/67
--- NOTE | 2016-09-05 11:59 | Consultation ---
DATE OF CONSULTATION: 09/04/2016 PSYCHOTHERAPY CONSULTATION PROGRESS NOTE: CONSULTING PHYSICIAN: Dilshad Abel M.D. TREATING ATTENDING PHYSICIAN: Barber Dial D.O. HISTORY OF PRESENT ILLNESS: The patient is a 65-year-old female admitted to the hospital for abdominal pain. The patient states that she has been experiencing severe anxiety and depression. She states that she had a diagnosis of bipolar disorder. The patient denies suicidal or homicidal ideation. The patient denied auditory or visual hallucination. anxiety and depression. This clinician assessed this patient and provided the patient with reality orientation, supportive psychotherapy. PAST MEDICAL HISTORY: History of COPD, chronic disease, CHF, and chronic pain. ALLERGIES: The patient has no known drug allergies. SUBSTANCE USE HISTORY: The patient denies any history of alcohol use, illicit substance use, or smoking cigarettes. PSYCHIATRIC HISTORY: The patient states that she has a history of bipolar disorder and it has been treated with psychotropic medications in the past. SOCIAL HISTORY: The patient is a 65-year-old female, lives independently. Financially sustained through the Medicare. MENTAL STATUS EXAMINATION: The patient is alert and oriented x3 to person, place, and time. Her mood is anxious. Affect is congruent. Thought process is slightly disorganized. The patient has poor attention and concentration. Poor insight, judgment, and impulse control. DIAGNOSES: Melfa I Bipolar disorder, recurrent, moderate. Melfa II Deferred. Melfa III Per History and Physical. Melfa IV Problem with social environment. PLAN: This clinician assessed the patient, this clinician has reviewed the patient's chart and for anxiety and depression providing with coping skills. Continue with medication management and behavioral management. Continue to encourage . Review with the patient's chart and discuss the treatment with nursing staff. Dilshad Abel PsyD. : ANGELIC JOB#: [id number] CC:
[2016-09-05 16:00] VITALS: BP 101/73
--- NOTE | 2016-09-05 18:12 | Pulmonology Progress Note ---
Assessment/Plan Problems: (1) Nausea and vomiting (2) IBD (inflammatory bowel disease) (3) Asthma (4) Interstitial lung disease (5) Seizure (6) Psychosis (7) Crohns disease (8) History of exploratory laparotomy Assessment/Plan improving IV fluids GI note appreciated f/u electrolytes pain management. diet was started today, tolerating well Subjective ROS Limited/Unobtainable: No Interval Events: improving slowly, on clear liquid diet Allergies: Coded Allergies: No Known Allergies (Verified , 05/21/06) Objective Last 24 Hour Vital Signs Date Time Temp Pulse Resp B/P Pulse Ox O2 Delivery O2 Flow Rate FiO2 09/05/16 16:44 98.6 09/05/16 16:00 98.6 87 18 101/73 100 Room Air 09/05/16 11:34 98.2 84 19 108/67 95 Room Air 09/05/16 07:42 98.6 85 19 114/66 95 Room Air 09/05/16 04:00 96.4 78 20 109/66 93 Room Air 09/05/16 00:00 98.4 78 20 115/70 94 Room Air 09/04/16 20:00 98.2 62 19 136/70 100 Room Air Intake and Output 09/04/16 09/05/16 19:00 07:00 Intake Total 225 ml 1075 ml Balance 225 ml 1075 ml Intake Oral 400 ml IV Total 225 ml 675 ml # Voids 3 3 Objective General Appearance: WD/WN, no apparent distress, alert EENT: PERRL/EOMI, normal ENT inspection, TMs normal, hair lose. Neck: non-tender, normal alignment, supple, normal inspection Cardiovascular: normal peripheral pulses, normal rate, regular rhythm, no murmur. 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 Skin: normal pigmentation, warm/dry Laboratory Tests 09/05/16 05:15: White Blood Count 6.4, Red Blood Count 4.62, Hemoglobin 12.0, Hematocrit 38.9, Mean Corpuscular Volume 84, Mean Corpuscular Hemoglobin 26.0L, Mean Corpuscular Hemoglobin Concent 30.9L, Red Cell Distribution Width 16.2H, Platelet Count 452H , Mean Platelet Volume 6.6, Neutrophils (%) (Auto) 53.4, Lymphocytes (%) (Auto) 31.5, Monocytes (%) (Auto) 12.4H, Eosinophils (%) (Auto) 2.0, Basophils (%) ( Auto) 0.8, Sodium Level 136, Potassium Level 3.1L, Chloride Level 96L, Carbon Dioxide Level 22, Anion Gap 18H, Blood Urea Nitrogen 16, Creatinine 0.9, Estimat Glomerular Filtration Rate > 60, Glucose Level 93, Calcium Level 9.5, Phosphorus Level 3.1, Magnesium Level 1.6L Current Medications Medications (Trade) Dose Ordered Sig/Vaibhav Route PRN Reason Start Time Stop Time Status Last Admin Dose Admin Acetaminophen (Tylenol) 650 mg Q4H PRN ORAL fever 09/03/16 18:00 10/03/16 17:59 Al Hydroxide/Mg Hydroxide (Mylanta II) 30 ml Q6H PRN ORAL dyspepsia 09/03/16 18:00 10/03/16 17:59 Bupropion HCl (Wellbutrin SR) 100 mg DAILY ORAL 09/04/16 09:00 10/04/16 08:59 09/05/16 09:13 Dextrose (Dextrose 50%) STAT PRN IV Hypoglycemia 09/03/16 18:00 10/03/16 17:59 Dextrose/Sodium Chloride (D5 0.45% NS) 1,000 ml @ 75 mls/hr Q27P34H IV 09/03/16 18:00 10/03/16 17:59 09/05/16 09:11 Diphenhydramine HCl (Benadryl) 25 mg Q6H PRN IVP Itching 09/03/16 18:00 10/03/16 17:59 Diphenhydramine HCl (Benadryl) 25 mg Q6H PRN ORAL Itching/Pruritis 09/03/16 18:00 10/03/16 17:59 Duloxetine HCl (Cymbalta) 60 mg DAILY ORAL 09/04/16 09:00 10/04/16 08:59 09/05/16 09:13 Heparin Sodium (Porcine) (Heparin 5000 units/ml) 5,000 units EVERY 12 HOURS SUBQ 09/03/16 21:00 10/03/16 20:59 09/05/16 09:14 Hydromorphone HCl (Dilaudid) 1 mg Q3H PRN IVP Severe Pain (Pain Scale 7-10) 09/03/16 18:45 09/10/16 18:44 09/05/16 16:14 Levetiracetam (Keppra) 1,500 mg TWICE A DAY ORAL 09/03/16 18:00 10/03/16 17:59 09/05/16 09:13 Mirtazapine (Remeron) 30 mg BEDTIME ORAL 09/03/16 21:00 10/03/16 20:59 09/04/16 21:21 Montelukast Sodium (Singulair) 10 mg DAILY ORAL 09/04/16 09:00 10/04/16 08:59 09/05/16 09:14 Nitroglycerin (Ntg) 0.4 mg Q5M X 3 DOSES PRN SL Prn Chest Pain 09/03/16 18:00 10/03/16 17:59 Ondansetron HCl (Zofran) 4 mg Q6H PRN IVP Nausea & Vomiting 09/03/16 18:00 10/03/16 17:59 09/05/16 17:38 Polyethylene Glycol (Miralax) 17 gm BEDTIME ORAL 09/03/16 21:00 10/03/16 20:59 Polyethylene Glycol (Miralax) 17 gm HSPRN PRN ORAL Constipation 09/03/16 18:00 10/03/16 17:59 Quetiapine Fumarate (SEROquel) 100 mg BEDTIME ORAL 09/03/16 21:00 10/03/16 20:59 09/04/16 21:21 Quetiapine Fumarate (SEROquel) 200 mg DAILY ORAL 09/04/16 09:00 10/04/16 08:59 09/05/16 09:13 Sucralfate (Carafate) 1 gm TID ORAL 09/03/16 18:00 10/03/16 17:59 09/05/16 14:00 Topiramate (Topamax) 25 mg TWICE A DAY ORAL 09/03/16 18:00 10/03/16 17:59 09/05/16 09:13 Trazodone HCl 100 mg 100 mg HSPRN PRN ORAL Insomnia 09/03/16 17:30 10/03/16 17:29 DWAYNE SOTO Sep 05, 2016 18:12
[2016-09-05] MEDS ORDERED: D5 1/2NS 1000ml IV ONE (18:59)
[2016-09-05 20:00] VITALS: BP 117/77
[2016-09-05] MEDS: Miralax 17gm pkt ORAL SCH (20:32)
[2016-09-06] VITALS: BP 117/87
[2016-09-06] MEDS: HYDROmorphone 1mg/ml Carpuject IVP PRN ×6 (00:50→22:35)
[2016-09-06] MEDS: D5 1/2NS 1,000 ML IV SCH (03:19)
[2016-09-06 04:00] VITALS: BP 124/74
--- NOTE | 2016-09-06 07:27 | General Progress Note ---
Assessment/Plan Problem List: (1) Respiratory distress (2) Dyspnea (3) Chronic abdominal pain (4) SOB (shortness of breath) ICD Codes: R06.02 - Shortness of breath SNOMED: 741641412 (5) COPD (chronic obstructive pulmonary disease) ICD Codes: J44.9 - Chronic obstructive pulmonary disease SNOMED: 20969208 (6) Abdominal pain (7) UTI (urinary tract infection) ICD Codes: N39.0 - Urinary tract infection, site not specified SNOMED: 25199764 (8) CHF (congestive heart failure) ICD Codes: I50.9 - Heart failure, unspecified SNOMED: 50400650 (9) Crohns disease ICD Codes: K50.90 - Crohns disease SNOMED: 93260857 (10) Nausea and vomiting (11) Diarrhea ICD Codes: R19.7 - Diarrhea, unspecified SNOMED: 24050392 Status: stable, progressing, tolerating diet Assessment/Plan ot pt diet abx cbc bmp am promise ltach eval Subjective Constitutional: Reports: weakness Allergies: Coded Allergies: No Known Allergies (Verified , 05/21/06) All Systems: reviewed and negative except above Subjective lethargic sleepy Objective Last 24 Hour Vital Signs Date Time Temp Pulse Resp B/P Pulse Ox O2 Delivery O2 Flow Rate FiO2 09/06/16 04:00 97.3 93 20 124/74 95 Room Air 09/06/16 00:00 96.8 87 20 117/87 95 Room Air 09/05/16 20:00 98.2 93 19 117/77 100 Room Air 09/05/16 16:44 98.6 09/05/16 16:00 98.6 87 18 101/73 100 Room Air 09/05/16 11:34 98.2 84 19 108/67 95 Room Air 09/05/16 07:42 98.6 85 19 114/66 95 Room Air Intake and Output 09/05/16 09/06/16 19:00 07:00 Intake Total 1275 ml 755 ml Balance 1275 ml 755 ml Intake Oral 450 ml 480 ml IV Total 825 ml 275 ml # Voids 2 2 # Bowel Movements 4 3 Height (Feet): 5 Height (Inches): 6.00 Weight (Pounds): 164 General Appearance: lethargic EENT: normal ENT inspection Neck: normal alignment Cardiovascular: normal peripheral pulses, normal rate, regular rhythm Respiratory/Chest: chest wall non-tender, lungs clear, normal breath sounds Abdomen: normal bowel sounds, non tender, hypoactive bowel sounds Extremities: normal inspection Edema: no edema noted Arm (L), no edema noted Arm (R), no edema noted Leg (L), no edema noted Leg (R), no edema noted Pedal (L), no edema noted Pedal (R), no edema noted Generalized Neurologic: responsive, motor weakness Skin: normal pigmentation, warm/dry BAYRON BENEDICT Sep 06, 2016 07:27
[2016-09-06 08:00] VITALS: BP 102/76
[2016-09-06 08:08] LABS: BASOPHILS % (AUTO) 0.4 % (0.0-2.0); EOSINOPHILS % (AUTO) 0.4 % (0.0-3.0); LYMPHOCYTES % (AUTO) 19.8 % (20.0-45.0); MEAN CORPUSCULAR HGB CONC 29.9 G/DL (32.0-36.0); MEAN CORPUSCULAR VOLUME 83 FL (80-99); MONOCYTES % (AUTO) 9.2 % (1.0-10.0); NEUTROPHILS % (AUTO) 70.2 % (45.0-75.0); PLATELET COUNT 506 K/UL (150-450); RED BLOOD COUNT 5.82 M/UL (4.20-5.40); RED CELL DISTRIBUTION WIDTH 16.4 % (11.6-14.8); WHITE BLOOD COUNT 11.1 K/UL (4.8-10.8)
[2016-09-06 08:21] LABS: CALCIUM 10.5 mg/dL (8.6-10.2); CREATININE 1.3 mg/dL (0.5-0.9); GLOMERULAR FILTRATION RATE 50.2 mL/min (>60)
[2016-09-06] MEDS: DULoxetine 30mg cap ORAL SCH (10:04)
[2016-09-06] MEDS: BuPROPion SR 100mg tab ORAL SCH (10:04)
[2016-09-06] MEDS: Topiramate 25mg tab ORAL SCH ×2 (10:04→17:34)
[2016-09-06] MEDS: Montelukast 10mg tablet ORAL SCH (10:05)
[2016-09-06] MEDS: Sucralfate 1gm tab ORAL SCH ×3 (10:05→17:33)
[2016-09-06] MEDS: Heparin 5000 units/ml inj SUBQ SCH ×2 (10:06→20:46)
[2016-09-06] MEDS: QUEtiapine 200mg tab ORAL SCH (10:26)
[2016-09-06 12:00] VITALS: BP 111/77
--- NOTE | 2016-09-06 12:26 | Diagnostic Imaging Report ---
Clinical history: 09/06/16. Technique: Single frontal abdominal radiograph was obtained. Comparisons: Abdomen/pelvis CT dated 08/15/16. Findings: Neural stimulation device is noted in the left hemipelvis. Postsurgical changes are noted. There is moderate air distention of several small and large bowel loops throughout the abdomen and pelvis, suspicious for ileus or at least partial small bowel obstruction. Impression: Moderate air distention of several small and large bowel loops suspicious for ileus or at least partial small bowel obstruction. Postsurgical changes noted.
--- NOTE | 2016-09-06 15:16 | Pulmonology Progress Note ---
Assessment/Plan Problems: (1) Nausea and vomiting (2) IBD (inflammatory bowel disease) (3) Asthma (4) Interstitial lung disease (5) Seizure (6) Psychosis (7) Crohns disease (8) History of exploratory laparotomy Assessment/Plan npo again IV fluids GI note appreciated f/u electrolytes pain management. f/u GI recommendation pts respiratory status stable Subjective ROS Limited/Unobtainable: No - lots Interval Events: lots of vominting, abdomen distended, NPO again Allergies: Coded Allergies: No Known Allergies (Verified , 05/21/06) Objective Last 24 Hour Vital Signs Date Time Temp Pulse Resp B/P Pulse Ox O2 Delivery O2 Flow Rate FiO2 09/06/16 14:28 97.3 09/06/16 12:00 98.4 101 19 111/77 100 Room Air 09/06/16 08:00 98.2 99 20 102/76 100 Room Air 09/06/16 04:00 97.3 93 20 124/74 95 Room Air 09/06/16 00:00 96.8 87 20 117/87 95 Room Air 09/05/16 20:00 98.2 93 19 117/77 100 Room Air 09/05/16 16:00 98.6 87 18 101/73 100 Room Air Intake and Output 09/05/16 09/06/16 19:00 07:00 Intake Total 1275 ml 755 ml Balance 1275 ml 755 ml Intake Oral 450 ml 480 ml IV Total 825 ml 275 ml # Voids 2 2 # Bowel Movements 4 3 Objective General Appearance: WD/WN, no apparent distress, alert EENT: PERRL/EOMI, normal ENT inspection, TMs normal, hair lose. Neck: non-tender, normal alignment, supple, normal inspection Cardiovascular: normal peripheral pulses, normal rate, regular rhythm, no murmur. Respiratory/Chest: CTA, crackles/rales, rhonchi , no wheezing Abdomen: normal bowel sounds, non tender, soft, no mass, distended Extremities: normal range of motion, non-tender Neurologic: senior research manager II-XII grossly normal, Moving all extremities. Skin: normal pigmentation, warm/dry Microbiology Date/Time Source Procedure Growth Status 09/05/16 09:37 Stool Stool Culture - Preliminary NORMAL FECAL DIMAS. Resulted 09/05/16 09:37 Stool Clostridium difficile Toxin Assay - Final Resulted Laboratory Tests 09/06/16 07:00: White Blood Count 11.1#H, Red Blood Count 5.82H, Hemoglobin 14.5, Hematocrit 48.5H, Mean Corpuscular Volume 83, Mean Corpuscular Hemoglobin 25.0L, Mean Corpuscular Hemoglobin Concent 29.9L, Red Cell Distribution Width 16.4H, Platelet Count 506H, Mean Platelet Volume 7.0, Neutrophils (%) (Auto) 70.2, Lymphocytes (%) (Auto) 19.8L, Monocytes (%) (Auto) 9.2, Eosinophils (%) (Auto) 0.4, Basophils (%) (Auto) 0.4, Sodium Level 136, Potassium Level 3.0L, Chloride Level 91L, Carbon Dioxide Level 28, Anion Gap 17H, Blood Urea Nitrogen 19, Creatinine 1.3H, Estimat Glomerular Filtration Rate 50.2, Glucose Level 137H, Calcium Level 10.5H Current Medications Medications (Trade) Dose Ordered Sig/Vaibhav Route PRN Reason Start Time Stop Time Status Last Admin Dose Admin Acetaminophen (Tylenol) 650 mg Q4H PRN ORAL fever 09/03/16 18:00 10/03/16 17:59 Al Hydroxide/Mg Hydroxide (Mylanta II) 30 ml Q6H PRN ORAL dyspepsia 09/03/16 18:00 10/03/16 17:59 Bupropion HCl (Wellbutrin SR) 100 mg DAILY ORAL 09/04/16 09:00 10/04/16 08:59 09/06/16 10:04 Dextrose (Dextrose 50%) STAT PRN IV Hypoglycemia 09/03/16 18:00 10/03/16 17:59 Dextrose/Sodium Chloride (D5 0.45% NS) 1,000 ml @ 50 mls/hr Q20H IV 09/06/16 18:45 10/06/16 18:44 09/06/16 03:19 Diphenhydramine HCl (Benadryl) 25 mg Q6H PRN IVP Itching 09/03/16 18:00 10/03/16 17:59 Diphenhydramine HCl (Benadryl) 25 mg Q6H PRN ORAL Itching/Pruritis 09/03/16 18:00 10/03/16 17:59 Duloxetine HCl (Cymbalta) 60 mg DAILY ORAL 09/04/16 09:00 10/04/16 08:59 09/06/16 10:04 Heparin Sodium (Porcine) (Heparin 5000 units/ml) 5,000 units EVERY 12 HOURS SUBQ 09/03/16 21:00 10/03/16 20:59 09/06/16 10:06 Hydromorphone HCl 1 mg 1 mg Q3H PRN IVP Severe Pain (Pain Scale 7-10) 09/03/16 18:45 09/10/16 18:44 09/06/16 13:58 Levetiracetam (Keppra) 1,500 mg TWICE A DAY ORAL 09/03/16 18:00 10/03/16 17:59 09/06/16 10:05 Mirtazapine (Remeron) 30 mg BEDTIME ORAL 09/03/16 21:00 10/03/16 20:59 09/05/16 20:26 Montelukast Sodium (Singulair) 10 mg DAILY ORAL 09/04/16 09:00 10/04/16 08:59 09/06/16 10:05 Nitroglycerin (Ntg) 0.4 mg Q5M X 3 DOSES PRN SL Prn Chest Pain 09/03/16 18:00 10/03/16 17:59 Ondansetron HCl 4 mg 4 mg Q4HR PRN IVP Nausea & Vomiting 09/05/16 21:45 10/05/16 21:44 09/06/16 13:58 Polyethylene Glycol (Miralax) 17 gm BEDTIME ORAL 09/03/16 21:00 10/03/16 20:59 Polyethylene Glycol (Miralax) 17 gm HSPRN PRN ORAL Constipation 09/03/16 18:00 10/03/16 17:59 Potassium Chloride 100 ml @ 100 mls/hr Q1HR IVPB 09/06/16 16:00 09/06/16 19:59 Potassium Chloride (KCl 10mEq/100ml Premix) 100 ml @ 100 mls/hr Q1HR IVPB 09/07/16 09:00 09/07/16 12:59 Quetiapine Fumarate (SEROquel) 100 mg BEDTIME ORAL 09/03/16 21:00 10/03/16 20:59 09/05/16 20:32 Quetiapine Fumarate (SEROquel) 200 mg DAILY ORAL 09/04/16 09:00 10/04/16 08:59 09/06/16 10:26 Sucralfate (Carafate) 1 gm TID ORAL 09/03/16 18:00 10/03/16 17:59 09/06/16 13:24 Topiramate (Topamax) 25 mg TWICE A DAY ORAL 09/03/16 18:00 10/03/16 17:59 09/06/16 10:04 Trazodone HCl (Desyrel) 100 mg HSPRN PRN ORAL Insomnia 09/03/16 17:30 10/03/16 17:29 DWAYNE SOTO Sep 06, 2016 15:16
[2016-09-06 16:00] VITALS: BP 119/74
[2016-09-06] MEDS ORDERED: D5 1/2NS 1000ml IV ONE (16:59)
[2016-09-06] MEDS ORDERED: 1/2 NS 1000ml IV ONE (16:59)
[2016-09-06 20:00] VITALS: BP 117/81
[2016-09-06] MEDS: Metoclopramide 10mg/2ml Inj IVP SCH (20:45)
[2016-09-06] MEDS: Miralax 17gm pkt ORAL SCH (21:00)
--- NOTE | 2016-09-06 21:19 | Progress Note ---
DATE: 09/05/2016 PSYCHOTHERAPY CONSULTATION PROGRESS NOTE TREATING ATTENDING: Barber Dial D.O. SUBJECTIVE: The patient is a 65-year-old female, remained confused slightly and disorganized, however, anxious and depressed was very tired . PLAN: This clinician assessed the patient. Provided the patient with reality orientation and supportive psychotherapy. Encouraging the patient to participate in treatment and milieu. Provided the patient inpatient insight into mental illness. Continue with medication management and behavioral management. This clinician has reviewed the patient's chart. Discussed the treatment with nursing staff. Dilshad Abel PsyD. DR: Vidya JOB#: [id number] CC:
--- NOTE | 2016-09-06 22:49 | Progress Note ---
DATE: 09/05/2016 SUBJECTIVE: Treated with Remeron, Cymbalta, trazodone, Topamax, Seroquel, and Wellbutrin to stabilize her mood, depression, and anxiety. She is depressed, secondary to her medical condition. Chart reviewed and discussed with staff. Seen and assessed at bedside. Mena Goncalves M.D. DR: ROMAN JOB#: [id number] CC:
--- NOTE | 2016-09-06 22:49 | Progress Note ---
DATE: 09/06/2016 SUBJECTIVE: This is a 65-year-old female patient with abdominal pain. PLAN: For this patient is to treat her with Remeron, Cymbalta, trazodone and Topamax. She will continue to be followed by Psychiatry throughout the hospital course. Chart reviewed. Discussed with staff. Seen and assessed at bedside. Mena Goncalves M.D. DR: FELI JOB#: [id number] CC:
[2016-09-07] VITALS (7 sets, daily range): BP systolic 91–114; BP diastolic 71–80
--- NOTE | 2016-09-07 00:09 | Consultation ---
DATE OF CONSULTATION: DATE: 09/04/2016 SUBJECTIVE: The patient is a 64-year-old female patient with abdominal pain. PLAN: For this patient is to treat her with Remeron 30 mg nightly, Cymbalta 60 mg nightly, trazodone as needed 100 mg nightly, Topamax 25 mg twice a day, Wellbutrin 100 mg daily, and Seroquel twice a day. Chart reviewed. Discussed with staff. Mena Goncalves M.D. DR: JIM JOB#: [id number] CC:
--- NOTE | 2016-09-07 03:49 | Consultation ---
DATE OF CONSULTATION: 09/03/2016 HISTORY OF PRESENT ILLNESS: Ms. Jayde Buchanan is a 65-year-old female patient with abdominal pain. This patient has inflammatory bowel disease, but she also has a history of bipolar 2 disorder. She is on a number of psychotropic medications. So there was a psychiatric consultation requested to evaluate this patient. The patient does not has depression and confusion, but she says that she has tried to manage by taking psychiatric medications regimen consisting of Remeron, Cymbalta, trazodone, Topamax, Seroquel, and Wellbutrin. Prior to that she denies any suicidal or homicidal thoughts. She is calm, but she says she does have some anxiety because of her abdominal pain and inflammatory bowel disease. SOCIAL HISTORY: As far as her social history lives in a private residence. Financially supported by surgical site infection and Medicare. SUBSTANCE ABUSE HISTORY: Denies drug and alcohol use. ALLERGY: She has no known drug allergies. PAST MEDICAL HISTORY: She has a history of inflammatory bowel disease, pneumonia, chronic pain syndrome with some radiculopathy. PSYCHIATRIC HISTORY: Bipolar 2. MENTAL STATUS EXAMINATION: This is a 65-year-old female with psychomotor retardation. Mood is depressed and anxious. Affect is guarded and restricted. Thought process, linear goal directed. Denies any current suicidal or homicidal thoughts. Insight and judgment is fair. DIAGNOSIS: Bipolar 2. PLAN: Plan for this patient I am going to treat this patient with medications regimen of Remeron 30 mg at bedtime, Cymbalta 60 mg daily, trazodone 50 mg at bedtime as needed, Topamax 25 mg twice a day, Seroquel twice a day. Mena Goncalves M.D. DR: Selena JOB#: [id number] CC:
[2016-09-07] MEDS: D5 1/2NS 1,000 ML IV SCH (04:17)
[2016-09-07] MEDS: Metoclopramide 10mg/2ml Inj IVP SCH ×2 (04:17→12:47)
[2016-09-07] MEDS: HYDROmorphone 1mg/ml Carpuject IVP PRN ×5 (04:23→20:50)
[2016-09-07 07:48] LABS: CALCIUM 10.3 mg/dL (8.6-10.2); CREATININE 1.7 mg/dL (0.5-0.9); GLOMERULAR FILTRATION RATE 36.7 mL/min (>60); POTASSIUM 4.1 mEQ/L (3.4-4.9)
[2016-09-07 07:51] LABS: BASOPHILS % (AUTO) 0.3 % (0.0-2.0); EOSINOPHILS % (AUTO) 0.4 % (0.0-3.0); LYMPHOCYTES % (AUTO) 14.7 % (20.0-45.0); MEAN CORPUSCULAR HEMOGLOBIN 25.5 PG (27.0-31.0); MEAN CORPUSCULAR HGB CONC 30.4 G/DL (32.0-36.0); MEAN CORPUSCULAR VOLUME 84 FL (80-99); MEAN PLATELET VOLUME 7.1 FL (6.5-10.1); MONOCYTES % (AUTO) 10.4 % (1.0-10.0); NEUTROPHILS % (AUTO) 74.1 % (45.0-75.0); PLATELET COUNT 491 K/UL (150-450); RED BLOOD COUNT 6.18 M/UL (4.20-5.40); RED CELL DISTRIBUTION WIDTH 16.2 % (11.6-14.8); WHITE BLOOD COUNT 12.2 K/UL (4.8-10.8)
[2016-09-07] MEDS: DULoxetine 30mg cap ORAL SCH (09:29)
[2016-09-07] MEDS: BuPROPion SR 100mg tab ORAL SCH (09:29)
[2016-09-07] MEDS: Montelukast 10mg tablet ORAL SCH (09:29)
[2016-09-07] MEDS: Sucralfate 1gm tab ORAL SCH ×3 (09:29→17:59)
[2016-09-07] MEDS: Topiramate 25mg tab ORAL SCH ×2 (09:30→18:05)
[2016-09-07] MEDS: QUEtiapine 200mg tab ORAL SCH (09:30)
[2016-09-07] MEDS: Heparin 5000 units/ml inj SUBQ SCH (09:36)
--- NOTE | 2016-09-07 13:20 | General Progress Note ---
Assessment/Plan Problem List: (1) Respiratory distress (2) Dyspnea (3) Chronic abdominal pain (4) SOB (shortness of breath) ICD Codes: R06.02 - Shortness of breath SNOMED: 404751012 (5) COPD (chronic obstructive pulmonary disease) ICD Codes: J44.9 - Chronic obstructive pulmonary disease SNOMED: 74275460 (6) Abdominal pain (7) UTI (urinary tract infection) ICD Codes: N39.0 - Urinary tract infection, site not specified SNOMED: 96212865 (8) CHF (congestive heart failure) ICD Codes: I50.9 - Heart failure, unspecified SNOMED: 53273704 (9) Crohns disease ICD Codes: K50.90 - Crohns disease SNOMED: 16464972 (10) Nausea and vomiting (11) Diarrhea ICD Codes: R19.7 - Diarrhea, unspecified SNOMED: 15539975 Status: stable, progressing, tolerating diet Assessment/Plan ot pt diet abx cbc bmp am promise ltach eval Subjective Constitutional: Reports: weakness Allergies: Coded Allergies: No Known Allergies (Verified , 05/21/06) All Systems: reviewed and negative except above Subjective lethargic sleepy Objective Last 24 Hour Vital Signs Date Time Temp Pulse Resp B/P Pulse Ox O2 Delivery O2 Flow Rate FiO2 09/07/16 12:15 97.7 101 20 102/72 97 Room Air 09/07/16 07:58 97.7 98 20 106/76 95 Room Air 09/07/16 04:00 98.4 100 19 114/80 94 Room Air 09/07/16 00:00 98.6 95 18 107/78 94 Room Air 09/06/16 20:00 98.2 106 18 117/81 98 Room Air 09/06/16 16:00 98.2 101 16 119/74 100 Room Air 09/06/16 14:28 97.3 Intake and Output 09/06/16 09/07/16 18:59 06:59 Intake Total 600 ml 780 ml Output Total 550 ml Balance 50 ml 780 ml Intake Oral 0 ml 480 ml IV Total 600 ml 300 ml Output Emesis 550 ml # Voids 3 4 # Bowel Movements 5 Laboratory Tests 09/07/16 07:00: White Blood Count 12.2H, Red Blood Count 6.18H, Hemoglobin 15.7, Hematocrit 51.8H, Mean Corpuscular Volume 84, Mean Corpuscular Hemoglobin 25.5L, Mean Corpuscular Hemoglobin Concent 30.4L, Red Cell Distribution Width 16.2H, Platelet Count 491H, Mean Platelet Volume 7.1, Neutrophils (%) (Auto) 74.1, Lymphocytes (%) (Auto) 14.7L, Monocytes (%) (Auto) 10.4H, Eosinophils (%) (Auto ) 0.4, Basophils (%) (Auto) 0.3, Sodium Level 135, Potassium Level 4.1, Chloride Level 92L, Carbon Dioxide Level 25, Anion Gap 18H, Blood Urea Nitrogen 29H, Creatinine 1.7H, Estimat Glomerular Filtration Rate 36.7, Glucose Level 133H, Calcium Level 10.3H Height (Feet): 5 Height (Inches): 6.00 Weight (Pounds): 164 General Appearance: lethargic EENT: normal ENT inspection Neck: normal alignment Cardiovascular: normal peripheral pulses, normal rate, regular rhythm Respiratory/Chest: chest wall non-tender, lungs clear, normal breath sounds Abdomen: normal bowel sounds, non tender, hypoactive bowel sounds Extremities: normal inspection Edema: no edema noted Arm (L), no edema noted Arm (R), no edema noted Leg (L), no edema noted Leg (R), no edema noted Pedal (L), no edema noted Pedal (R), no edema noted Generalized Neurologic: responsive, motor weakness Skin: normal pigmentation, warm/dry BAYRON BENEDICT Sep 07, 2016 13:20
--- NOTE | 2016-09-07 14:37 | GI Progress Note ---
Assessment/Plan Problems: (1) History of exploratory laparotomy ICD Codes: Z98.89 - Other specified postprocedural states SNOMED: 05465303, 30243184, 732257102 (2) Abdominal pain (3) Chronic pain ICD Codes: G89.29 - Other chronic pain SNOMED: 53921791 (4) Diarrhea ICD Codes: R19.7 - Diarrhea, unspecified SNOMED: 42384872 (5) Crohn's disease ICD Codes: K50.90 - Crohn's disease SNOMED: 40670744 (6) Ileus ICD Codes: K56.7 - Ileus, unspecified SNOMED: 626826391 Status: not improved, unchanged Status Narrative Discussed with Dr. Gallegos. Assessment/Plan fu Abd U/S s/p EGD/colon 2016 >> Gastric Ulcer, Crohns cdiff >> negative KUB >> Moderate air distention of several small and large bowel loops suspicious for ileus or at least partial small bowel obstruction. hx crohns will give trial rx Movantik for OIC today. fu stool studies mesalamine for Crohns NPO + IVFs ppi pain mgmt fu labs Subjective Gastrointestinal/Abdominal: Reports: abdomen distended, vomiting Subjective emesis x 1 this morning BM x 1 this morning, watery abdominal distention Objective Last 24 Hour Vital Signs Date Time Temp Pulse Resp B/P Pulse Ox O2 Delivery O2 Flow Rate FiO2 09/07/16 12:15 97.7 101 20 102/72 97 Room Air 09/07/16 07:58 97.7 98 20 106/76 95 Room Air 09/07/16 04:00 98.4 100 19 114/80 94 Room Air 09/07/16 00:00 98.6 95 18 107/78 94 Room Air 09/06/16 20:00 98.2 106 18 117/81 98 Room Air 09/06/16 16:00 98.2 101 16 119/74 100 Room Air Intake and Output 09/06/16 09/07/16 19:00 07:00 Intake Total 550 ml 780 ml Output Total 550 ml Balance 0 ml 780 ml Intake Oral 0 ml 480 ml IV Total 550 ml 300 ml Output Emesis 550 ml # Voids 3 4 # Bowel Movements 5 Laboratory Tests Test 09/07/16 07:00 White Blood Count 12.2 K/UL (4.8-10.8) H Red Blood Count 6.18 M/UL (4.20-5.40) H Hemoglobin 15.7 G/DL (12.0-16.0) Hematocrit 51.8 % (37.0-47.0) H Mean Corpuscular Volume 84 FL (80-99) Mean Corpuscular Hemoglobin 25.5 PG (27.0-31.0) L Mean Corpuscular Hemoglobin Concent 30.4 G/DL (32.0-36.0) L Red Cell Distribution Width 16.2 % (11.6-14.8) H Platelet Count 491 K/UL (150-450) H Mean Platelet Volume 7.1 FL (6.5-10.1) Neutrophils (%) (Auto) 74.1 % (45.0-75.0) Lymphocytes (%) (Auto) 14.7 % (20.0-45.0) L Monocytes (%) (Auto) 10.4 % (1.0-10.0) H Eosinophils (%) (Auto) 0.4 % (0.0-3.0) Basophils (%) (Auto) 0.3 % (0.0-2.0) Sodium Level 135 mEQ/L (135-145) Potassium Level 4.1 mEQ/L (3.4-4.9) Chloride Level 92 mEQ/L (98-107) L Carbon Dioxide Level 25 mEQ/L (20-30) Anion Gap 18 (5-15) H Blood Urea Nitrogen 29 mg/dL (7-23) H Creatinine 1.7 mg/dL (0.5-0.9) H Estimat Glomerular Filtration Rate 36.7 mL/min (>60) Glucose Level 133 mg/dL (74-106) H Calcium Level 10.3 mg/dL (8.6-10.2) H Height (Feet): 5 Height (Inches): 6.00 Weight (Pounds): 164 General Appearance: no apparent distress, alert Cardiovascular: normal rate Respiratory/Chest: normal breath sounds, no respiratory distress Abdominal Exam: soft, distended - tympanic Extremities: normal range of motion Objective Procedure: XRAY Abdomen 1v Clinical history: 09/06/16. Comparisons: Abdomen/pelvis CT dated 08/15/16. Impression: Moderate air distention of several small and large bowel loops suspicious for ileus or at least partial small bowel obstruction. Postsurgical changes noted. Tara Scott N.P. Sep 07, 2016 14:37
--- NOTE | 2016-09-07 17:26 | Pulmonology Progress Note ---
Assessment/Plan Problems: (1) Nausea and vomiting (2) IBD (inflammatory bowel disease) (3) Asthma (4) Interstitial lung disease (5) Seizure (6) Psychosis (7) Crohns disease (8) History of exploratory laparotomy Assessment/Plan no new complains npo again IV fluids GI note appreciated f/u electrolytes pain management. f/u GI recommendation pts respiratory status stable Subjective ROS Limited/Unobtainable: Yes Allergies: Coded Allergies: No Known Allergies (Verified , 05/21/06) Objective Last 24 Hour Vital Signs Date Time Temp Pulse Resp B/P Pulse Ox O2 Delivery O2 Flow Rate FiO2 09/07/16 16:55 98.4 09/07/16 15:59 98.4 100 20 113/71 100 Room Air 09/07/16 12:15 97.7 101 20 102/72 97 Room Air 09/07/16 07:58 97.7 98 20 106/76 95 Room Air 09/07/16 04:00 98.4 100 19 114/80 94 Room Air 09/07/16 00:00 98.6 95 18 107/78 94 Room Air 09/06/16 20:00 98.2 106 18 117/81 98 Room Air Intake and Output 09/06/16 09/07/16 18:59 06:59 Intake Total 600 ml 780 ml Output Total 550 ml Balance 50 ml 780 ml Intake Oral 0 ml 480 ml IV Total 600 ml 300 ml Output Emesis 550 ml # Voids 3 4 # Bowel Movements 5 Objective General Appearance: WD/WN, no apparent distress, alert EENT: PERRL/EOMI, normal ENT inspection, TMs normal, hair lose. Neck: non-tender, normal alignment, supple, normal inspection Cardiovascular: normal peripheral pulses, normal rate, regular rhythm, no murmur. Respiratory/Chest: CTA, crackles/rales, rhonchi , no wheezing Abdomen: normal bowel sounds, non tender, soft, no mass, distended Extremities: normal range of motion, non-tender Neurologic: global security architect II-XII grossly normal, Moving all extremities. Skin: normal pigmentation, warm/dry Microbiology Date/Time Source Procedure Growth Status 09/05/16 09:37 Stool Stool Culture - Preliminary Resulted 09/05/16 09:37 Stool Clostridium difficile Toxin Assay - Final Resulted Laboratory Tests 09/07/16 07:00: White Blood Count 12.2H, Red Blood Count 6.18H, Hemoglobin 15.7, Hematocrit 51.8H, Mean Corpuscular Volume 84, Mean Corpuscular Hemoglobin 25.5L, Mean Corpuscular Hemoglobin Concent 30.4L, Red Cell Distribution Width 16.2H, Platelet Count 491H, Mean Platelet Volume 7.1, Neutrophils (%) (Auto) 74.1, Lymphocytes (%) (Auto) 14.7L, Monocytes (%) (Auto) 10.4H, Eosinophils (%) (Auto ) 0.4, Basophils (%) (Auto) 0.3, Sodium Level 135, Potassium Level 4.1, Chloride Level 92L, Carbon Dioxide Level 25, Anion Gap 18H, Blood Urea Nitrogen 29H, Creatinine 1.7H, Estimat Glomerular Filtration Rate 36.7, Glucose Level 133H, Calcium Level 10.3H Current Medications Medications (Trade) Dose Ordered Sig/Vaibhav Route PRN Reason Start Time Stop Time Status Last Admin Dose Admin Acetaminophen (Tylenol) 650 mg Q4H PRN ORAL fever 09/03/16 18:00 10/03/16 17:59 Al Hydroxide/Mg Hydroxide (Mylanta II) 30 ml Q6H PRN ORAL dyspepsia 09/03/16 18:00 10/03/16 17:59 Bupropion HCl (Wellbutrin SR) 100 mg DAILY ORAL 09/04/16 09:00 10/04/16 08:59 09/07/16 09:29 Dextrose (Dextrose 50%) STAT PRN IV Hypoglycemia 09/03/16 18:00 10/03/16 17:59 Dextrose/Sodium Chloride (D5 0.45% NS) 1,000 ml @ 50 mls/hr Q20H IV 09/06/16 18:45 10/06/16 18:44 09/07/16 04:17 Diphenhydramine HCl (Benadryl) 25 mg Q6H PRN IVP Itching 09/03/16 18:00 10/03/16 17:59 Diphenhydramine HCl (Benadryl) 25 mg Q6H PRN ORAL Itching/Pruritis 09/03/16 18:00 10/03/16 17:59 Duloxetine HCl (Cymbalta) 60 mg DAILY ORAL 09/04/16 09:00 10/04/16 08:59 09/07/16 09:29 Heparin Sodium (Porcine) (Heparin 5000 units/ml) 5,000 units EVERY 12 HOURS SUBQ 09/03/16 21:00 10/03/16 20:59 09/06/16 20:46 Hydromorphone HCl 1 mg 1 mg Q3H PRN IVP Severe Pain (Pain Scale 7-10) 09/03/16 18:45 09/10/16 18:44 09/07/16 16:25 Levetiracetam (Keppra) 1,500 mg TWICE A DAY ORAL 09/03/16 18:00 10/03/16 17:59 09/07/16 09:29 Mirtazapine (Remeron) 30 mg BEDTIME ORAL 09/03/16 21:00 10/03/16 20:59 09/06/16 20:45 Montelukast Sodium (Singulair) 10 mg DAILY ORAL 09/04/16 09:00 10/04/16 08:59 09/07/16 09:29 Nitroglycerin (Ntg) 0.4 mg Q5M X 3 DOSES PRN SL Prn Chest Pain 09/03/16 18:00 10/03/16 17:59 Ondansetron HCl (Zofran) 4 mg Q4HR PRN IVP Nausea & Vomiting 09/05/16 21:45 10/05/16 21:44 09/06/16 22:35 Patient Own Medication (Patient's Own Med) 1 ea DAILY ORAL 09/07/16 18:00 09/12/16 09:01 Polyethylene Glycol (Miralax) 17 gm BEDTIME ORAL 09/03/16 21:00 10/03/16 20:59 Polyethylene Glycol (Miralax) 17 gm HSPRN PRN ORAL Constipation 09/03/16 18:00 10/03/16 17:59 Quetiapine Fumarate (SEROquel) 100 mg BEDTIME ORAL 09/03/16 21:00 10/03/16 20:59 09/06/16 20:45 Quetiapine Fumarate (SEROquel) 200 mg DAILY ORAL 09/04/16 09:00 10/04/16 08:59 09/07/16 09:30 Sucralfate (Carafate) 1 gm TID ORAL 09/03/16 18:00 10/03/16 17:59 09/07/16 12:47 Topiramate (Topamax) 25 mg TWICE A DAY ORAL 09/03/16 18:00 10/03/16 17:59 09/07/16 09:30 Trazodone HCl (Desyrel) 100 mg HSPRN PRN ORAL Insomnia 09/03/16 17:30 10/03/16 17:29 DWAYNE SOTO Sep 07, 2016 17:26
[2016-09-07] MEDS ORDERED: TYLENOL650 MG/20. ORAL (18:18)
[2016-09-07] MEDS ORDERED: MYLANTA30 M1 PO (18:21)
[2016-09-07] MEDS ORDERED: HEPARIN SO5000 UNIT2 SUBQ (18:23)
[2016-09-07] MEDS ORDERED: ZOFRAN 4 MG4 MG/2 ML IV (18:29)
[2016-09-07] MEDS ORDERED: MOVANTIK25 MG PO (18:29)
--- NOTE | 2016-09-07 20:39 | Progress Note ---
DATE: 09/06/2016 PSYCHOTHERAPY CONSULTATION PROGRESS NOTE TREATING ATTENDING: Barber Dial D.O. HISTORY: The patient is a 65-year-old female patient complaining of anxiety, depression, has been very helpless, hopeless and depressed. The patient states that she has difficulty breathing as well, remains anxious during the daytime. She claims that Pina has good impulse control, depression and anxiety. IMPRESSION: This clinician assessed the patient, provided the patient with reality orientation and supportive psychotherapy. Encouraging the patient to participate in treatment as well as with medication regimen. Continue with medication management and behavioral management. This clinician has reviewed the patient's chart and discussed the treatment with nursing staff. Dilshad Abel PsyD. DR: OFELIA JOB#: [id number] CC:
[2016-09-07] MEDS ORDERED: NS 55ml IV ONE (21:47)
--- NOTE | 2016-09-08 12:39 | Discharge Summary ---
Discharge Summary Hospital Course Date of Admission Sep 03, 2016 at 14:21 Date of Discharge Sep 07, 2016 at 21:48 Admitting Diagnosis Abdominal pain HPI Jayde Buchanan is a 65 year old female who was admitted on Sep 03, 2016 at 14:21 for Abdominal Pain Hospital Course dc summary dictated #[id number] Discharge Medications Continued Medications: Acetaminophen (Acetaminophen) 650 Mg/20.3 Ml Solution 650 MG ORAL Q8H PRN for Fever/Headache/Mild Pain, ML 0 Refills Al Hydroxide/mg Hydroxide (Mag-Al Liquid) 30 Ml Oral.susp 30 ML PO Q6HR PRN for Per rx protocol, ML Bupropion Hcl* (Bupropion Hcl*) 100 Mg Tablet 100 MG ORAL DAILY, TAB Diphenhydramine HCl (Benadryl) 25 Mg Capsule 25 MG PO Q6HR PRN for Itching, CAP Docusate Sodium* (Docusate Sodium*) 100 Mg Capsule 100 MG ORAL THREE TIMES A DAY, CAP Duloxetine Hcl* (Cymbalta*) 60 Mg Capsule.dr 60 MG ORAL DAILY, CAP Heparin Sod (Porcine) (Heparin Sodium*) 5 000/1 Ml Vial 5000 UNITS SUBQ EVERY 12 HOURS, VIAL Levetiracetam* (Levetiracetam*) 500 Mg Tablet 1500 MG ORAL TWICE A DAY, #60 TAB 0 Refills Mirtazapine* (Mirtazapine*) 15 Mg Tablet 30 MG ORAL BEDTIME, TAB Montelukast Sodium* (Montelukast Sodium*) 10 Mg Tablet 10 MG ORAL DAILY, TAB Naloxegol Oxalate (Movantik) 25 Mg Tablet 25 MG PO DAILY for 6 Days, TAB Nitroglycerin (Nitroglycerin) 0.4 Mg Tab.subl 0.4 MG SL Q5MIN X3 PRN for CHEST PAIN, TAB Ondansetron* (Zofran*) 4 Mg/2 Ml Vial 4 MG IV Q4HR PRN for Nausea & Vomiting, VIAL Polyethylene Glycol 3350* (Miralax*) 17 Gm Powd.pack 17 GM ORAL BEDTIME, PACKET Quetiapine Fumarate* (Seroquel*) 200 Mg Tablet 100 MG ORAL BEDTIME, TAB Quetiapine Fumarate* (Seroquel*) 200 Mg Tablet 200 MG ORAL DAILY, TAB Sucralfate* (Carafate*) 1 Gm Tablet 1 GM ORAL TID, TAB Topiramate* (Topamax*) 25 Mg Tablet 25 MG ORAL TWICE A DAY, #60 TAB 0 Refills Trazodone* (Trazodone*) 150 Mg Tablet 100 MG ORAL BEDTIME PRN for Insomnia, TAB Discharge Condition Upon Discharge: stable Discharge Disposition Patient was discharged to [facility] (65) Discharge Diagnoses: Discharge Instructions Discharge Instructions Special Instructions I have been assigned to complete a D/C Summary on this account. I was not involved in the patient management Keon MorganGwendolyn garcia NP Sep 08, 2016 12:39
--- NOTE | 2016-09-09 01:49 | Discharge Summary 2 SIG ---
DATE OF ADMISSION: 09/03/2016 DATE OF DISCHARGE: 09/07/2016 REASON FOR HOSPITAL ADMISSION: 65-year-old female with a history of Crohn disease presented to the emergency department complaining of severe abdominal pain and diarrhea. The patient with a history of multiple surgeries in the past for bowel obstruction and lysis of adhesions. The patient reported severe symptoms. She was recently hospitalized for ileus and stool impaction. This time she complained of nausea, vomiting, abdominal discomfort, and diarrhea. These symptoms typical, which she experiences with Crohn disease flare. She requested pain medication. She stated that she was not able to tolerate any oral fluids. Of note, the patient with chronic pain syndrome. Workup in the emergency department revealed mild leukocytosis of 12.3, mild anemia with hemoglobin of 11.8 and hematocrit of 38.5, lipase and LFTs were stable, mild dehydration with BUN 29 and creatinine 1.1. Anion gap elevated -at 17. The patient started on the IV fluids and transferred to medical/surgical floor for further management. ADMITTING DIAGNOSES: 1. Diarrhea. 2. Crohn disease, possible flare. 3. Abdominal pain. 4. Chronic pain syndrome. 5. History of asthma. HOSPITAL STAY: The patient admitted to medical/surgical floor. GI followed the patient. Stool culture were ordered. Abdominal ultrasound initially done in the emergency room was negative for gallstones and dilated ducts. Subsequently, abdominal x-ray was done, which indicated moderate air distention of several small large bowel loops suspicious for ileus or at least partial small bowel obstruction. The patient's stool culture was negative. Stool for C. difficile was negative. The patient was afebrile. GI followed the patient closely. EGD and colonoscopy were done in 2015 with findings of Crohn disease and gastric ulcer. Diarrhea likely secondary to Crohn disease flare. Pain management provided. The patient started on mesalamine for Crohn disease, reinforced adherence to medication regimen at home. Antiemetic provided as needed. IV fluids provided. Started on liquid diet. Able to tolerate full liquid diet. PPI added to existing regimen. Patient was started on trial of Movantix. Pulmonary status was stable. Clinical Data Specialist followed. The patient has a history of asthma and interstitial lung disease. Pulse oximetry was stable on room air. Pulmonary toilet provided as needed. No evidence of asthma exacerbation. No evidence of seizure activity while in the hospital. Continue antiepileptic medication. The patient with significant depression and mild anxiety secondary to disease process. Psychiatrist seen the patient and optimize her psychiatric medication. The patient was stable for discharge. DISCHARGE DIAGNOSES: 1. Crohn disease flare. 2. Diarrhea -resolved. 3. Abdominal pain with chronic pain syndrome-controlled 4. History of exploratory laparotomy. 5. Asthma. 6. Interstitial lung disease. 7. Seizure disorder. 8. Depression and anxiety. 9. Mild dehydration, due to diarrhea - resolved after intravenous hydration. DISCHARGE MEDICATIONS: See medication reconciliation list. DISCHARGE INSTRUCTIONS: The patient discharged to [facility] acute care [facility] for further management. Pain control, advance diet as tolerated, bowel regimen, continue mesalamine, continue trial with Movantix as recommended by GI. Barber Dial D.O. I have been assigned to dictate discharge summary on this account and I was not involved in the patient's management. Gwendolyn Morganradha N.PDeng DR: Nazario JOB#: [id number] CC: DENI
[2016-10-15] MEDS ORDERED: LINZESS145 MCG PO (16:17)
== END 2016-09-07 21:48 | DRG 386 ==
LOC: EMR 11:25 → 4E 14:21 → EDBEDREQ 16:00 → 4E 09-06 20:32
DX: K50.918 Crohn's disease, unspecified, with other complication (principal); J84.9 Interstitial pulmonary disease, unspecified; I50.9 Heart failure, unspecified; N39.0 Urinary tract infection, site not specified; F31.81 Bipolar II disorder; R56.9 Unspecified convulsions; G89.4 Chronic pain syndrome; J45.909 Unspecified asthma, uncomplicated; E86.0 Dehydration; J44.9 Chronic obstructive pulmonary disease, unspecified
CPT/HCPCS: 36415; 74000; 76700; 80048; 80053; 80299; 81003; 82150; 83690; 83735; 84100; 85025; 85730; 87045; 87493; J2405; J2765; J8499

== ENCOUNTER → 2016-09-21 | Outpatient (CLI) | payer MEDICARE, MEDICAID ==
[~2016-09-21] MED LIST changes: +CARAFATE1 G1 ORAL; +D5 1/2NS 1000ml IV ONE; +HEPARIN SO5000 UNIT2 SUBQ; +LINZESS145 MCG PO; +MONTELUKAST SOD10 MG ORAL; +MOVANTIK25 MG PO; +MYLANTA30 M1 PO; +SEROQUEL200 MG ORAL; +TRAZODONE HCL150 MG ORAL; +ZOFRAN 4 MG4 MG/2 ML IV; +ZOLPIDEM TARTRA10 MG ORAL
--- NOTE | 2016-09-21 15:11 | GI Progress Note ---
Assessment/Plan Problems: (1) Nausea ICD Codes: R11.0 - Nausea SNOMED: 486102006 (2) Abdominal pain (3) Diarrhea ICD Codes: R19.7 - Diarrhea, unspecified SNOMED: 31358670 (4) Crohn's disease ICD Codes: K50.90 - Crohn's disease SNOMED: 16072308 Status: stable, unchanged Status Narrative Seen with Dr. Gallegos. Assessment/Plan cdiff negative recommend 6-MP >> pt will contact us if she wants the rx, will fax then. cont pentasa 1000mg TID RTC x 1 month Subjective Subjective generalized abdominal pain diarrhea x10/day nausea without vomiting 20+ lbs weight loss in the past 2 months due to recently hospitalization/SNF Objective T 98.2 BP 101/69 P 90 Weight (Pounds): 143 General Appearance: no apparent distress, alert Cardiovascular: normal rate Respiratory/Chest: normal breath sounds, no respiratory distress Abdominal Exam: normal bowel sounds, soft, tender Extremities: normal range of motion Objective Endoscopy Procedure Note Indication for Procedure: CD, gerd Procedures Performed: EGD, colonoscopy Operative Findings/Diagnosis: , CD LUIS GALLEGOS - Apr 29, 2016 12:35 [place] [facility] [place]p SNF [place] [facility] 2007 cdiff negative 07/22 Tara Scott N.P. Sep 21, 2016 15:11
[2016-09-22 16:46] VITALS: BP 101/69
== END | disposition home or self-care (01) ==
LOC: PAN 13:00
DX: K50.90 Crohn's disease, unspecified, without complications (principal); R11.0 Nausea; R10.9 Unspecified abdominal pain; R19.7 Diarrhea, unspecified
CPT/HCPCS: 99211

== ENCOUNTER → 2016-10-15 | Outpatient (CLI) | payer MEDICARE, MEDICAID ==
[~2016-10-15] MED LIST changes: -D5 1/2NS 1000ml IV ONE
[2016-10-15 13:37] VITALS: BP 104/63
--- NOTE | 2016-10-15 13:55 | General Progress Note ---
Assessment/Plan Problem List: (1) Crohn's disease ICD Codes: K50.90 - Crohn's disease SNOMED: 78645714 (2) Chronic abdominal pain (3) COPD (chronic obstructive pulmonary disease) ICD Codes: J44.9 - Chronic obstructive pulmonary disease SNOMED: 98242142 (4) Constipation Assessment/Plan continue pentasa add entrocort refill linzess rtc 8 weeks Subjective ROS Limited/Unobtainable: Yes Allergies: Coded Allergies: No Known Allergies (Verified , 05/21/06) Subjective C/O ABD PAIN Objective Last 24 Hour Vital Signs Date Time Temp Pulse Resp B/P Pulse Ox O2 Delivery O2 Flow Rate FiO2 10/15/16 13:37 98.8 95 18 104/63 General Appearance: no apparent distress EENT: normal ENT inspection Neck: supple Cardiovascular: normal rate Respiratory/Chest: decreased breath sounds Abdomen: normal bowel sounds, non tender, soft Extremities: non-tender LUIS POTTS Oct 15, 2016 13:55
== END | disposition home or self-care (01) ==
LOC: PAN 12:58
DX: K50.90 Crohn's disease, unspecified, without complications (principal); R10.9 Unspecified abdominal pain; J44.9 Chronic obstructive pulmonary disease, unspecified; K59.00 Constipation, unspecified
CPT/HCPCS: 99211

== ENCOUNTER 2016-12-17 09:44 | Inpatient (IN) | payer MEDICARE, MEDICAID ==
[~2016-12-17] VITALS: Ht 167.6 cm; Wt 74.4 kg
[2016-12-17 10:01] VITALS: BP 120/73
[2016-12-17] MEDS ORDERED: Solu-MEDROL 125mg Inj IVP ONE (10:15)
[2016-12-17] MEDS ORDERED: Albuterol ud Inhalation HHN ONE (10:15)
[2016-12-17] MEDS ORDERED: Morphine Sulfate 4mg/ml Inj IVP ONE (10:15)
[2016-12-17] MEDS ORDERED: Ipratropium 0.02% Inh Soln 2.5ml UD HHN ONE (10:15)
[2016-12-17 10:47] LABS: BASOPHILS % (AUTO) 0.6 % (0.0-2.0); EOSINOPHILS % (AUTO) 1.1 % (0.0-3.0); MEAN CORPUSCULAR HGB CONC 30.2 G/DL (32.0-36.0); MEAN CORPUSCULAR VOLUME 86 FL (80-99); MEAN PLATELET VOLUME 6.3 FL (6.5-10.1); NEUTROPHILS % (AUTO) 69.3 % (45.0-75.0); PLATELET COUNT 454 K/UL (150-450); RED CELL DISTRIBUTION WIDTH 16.3 % (11.6-14.8); WHITE BLOOD COUNT 15.5 K/UL (4.8-10.8)
[2016-12-17 11:23] LABS: TROPONIN I < 0.30 ng/mL (<=0.30)
[2016-12-17 11:27] LABS: ALANINE AMINOTRANSFERASE 12 U/L (3-33); ALBUMIN/GLOBULIN RATIO 0.5 (1.0-2.7); ANION GAP 13 (5-15); ASPARTATE AMINO TRANSFERASE 15 U/L (5-40); CALCIUM 9.2 mg/dL (8.6-10.2); CARBON DIOXIDE 23 mEQ/L (20-30); CHLORIDE 103 mEQ/L (98-107); CREATININE 0.9 mg/dL (0.5-0.9); GLOMERULAR FILTRATION RATE > 60 mL/min (>60); HEMOLYSIS 26; LIPASE 15 U/L (< 60); POTASSIUM 3.7 mEQ/L (3.4-4.9); SODIUM 139 mEQ/L (135-145); TOTAL PROTEIN 8.9 g/dL (6.6-8.7)
[2016-12-17 11:38] LABS: CKMB < 1.5 ng/mL (< 3.8)
[2016-12-17 11:46] VITALS: BP 115/64
[2016-12-17] MEDS ORDERED: Nitroglycerin Subl 0.4mg tab (Bottle Of 25) SL PRN (12:00)
[2016-12-17] MEDS ORDERED: Promethazine/Codeine 5ml UD ORAL PRN (12:00)
[2016-12-17] MEDS ORDERED: LORazepam Inj 2mg/ml 1ml IV PRN (12:00)
[2016-12-17] MEDS ORDERED: DuoNeb 0.5-3(2.5)mg/3ml neb HHN PRN (12:00)
[2016-12-17] MEDS ORDERED: cefTRIAXone 1 GM in NS 55 ML IV ONE (12:00)
[2016-12-17] MEDS ORDERED: Azithromycin 500 MG in NS 275 ML IV ONE (12:00)
[2016-12-17] MEDS ORDERED: Ketorolac 30mg Inj IV PRN (12:00)
[2016-12-17] MEDS ORDERED: Azithromycin Inj IV ONE (12:26)
[2016-12-17 13:44] LABS: APPEARANCE,URINE SLIGHTLY CLOUDY; KETONES,URINE NEGATIVE (NEGATIVE); LEUKOCYTE ESTERASE ,URINE 2+ (NEGATIVE); NITRITE,URINE NEGATIVE (NEGATIVE); PH,URINE 6 (4.5-8.0); PROTEIN,URINE 1+ (NEGATIVE); UROBILINOGEN,URINE NORMAL MG/DL (0.0-1.0)
[2016-12-17] MEDS: Morphine Sulfate 2mg/ml Inj IVP PRN ×2 (13:48→18:52)
--- NOTE | 2016-12-17 13:59 | Diagnostic Imaging Report ---
Indications: Shortness of breath Technique: Portable AP chest Findings: Comparison: 08/18/16, 07/10/13 Diffuse bilateral interstitial infiltrates persist, unchanged. Circumscribed gas filled lucency is again noted in lateral aspect of right upper lung, unchanged. No new pulmonary parenchymal abnormality is demonstrated. No pleural disease is evident. Heart size remains within normal limits. Pulmonary vasculature largely obscured. Aortic arch calcification again noted. IMPRESSION: Stable bilateral interstitial disease/fibrosis. No new abnormality identified
[2016-12-17] MEDS ORDERED: Piperacillin/Tazobactam 2.25 GM in D5W 55 ML IV SCH (14:00)
--- NOTE | 2016-12-17 14:02 | Infectious Diseases Prog Note ---
Assessment/Plan Problems: (1) PNA (pneumonia) Assessment & Plan: will continue Zosyn which was started by assistant laboratory director , and add azithromycin to cover anaerobes , will send sputum culture (2) Abdominal pain Assessment & Plan: due to crohn's disease , consult GI for further eval (3) Leukocytosis Assessment & Plan: due to pneumonia , will send blood culture and continue antibiotics (4) COPD exacerbation Assessment & Plan: started on large dose of steroids, recommend to taper, continue nebulizers (5) Crohns disease Assessment & Plan: consult GI for further eval Subjective Allergies: Coded Allergies: No Known Allergies (Verified , 05/21/06) Objective Vital Signs Last 24 Hour Vital Signs Date Time Temp Pulse Resp B/P Pulse Ox O2 Delivery O2 Flow Rate FiO2 12/17/16 11:46 83 20 115/64 96 Nasal Cannula 2.0 12/17/16 10:33 90 18 99 Nasal Cannula 28 12/17/16 10:18 28 12/17/16 10:18 88 20 98 Nasal Cannula 28 12/17/16 10:18 88 20 Room Air 21 12/17/16 10:01 99.3 88 20 120/73 92 Room Air 12/17/16 09:50 99.3 97 20 134/79 100 Room Air Height (Feet): 5 Height (Inches): 6.00 Weight (Pounds): 164 Laboratory Tests Test 12/17/16 10:30 12/17/16 13:00 White Blood Count 15.5 K/UL (4.8-10.8) H Red Blood Count 4.50 M/UL (4.20-5.40) Hemoglobin 11.7 G/DL (12.0-16.0) L Hematocrit 38.7 % (37.0-47.0) Mean Corpuscular Volume 86 FL (80-99) Mean Corpuscular Hemoglobin 26.0 PG (27.0-31.0) L Mean Corpuscular Hemoglobin Concent 30.2 G/DL (32.0-36.0) L Red Cell Distribution Width 16.3 % (11.6-14.8) H Platelet Count 454 K/UL (150-450) H Mean Platelet Volume 6.3 FL (6.5-10.1) L Neutrophils (%) (Auto) 69.3 % (45.0-75.0) Lymphocytes (%) (Auto) 22.0 % (20.0-45.0) Monocytes (%) (Auto) 7.0 % (1.0-10.0) Eosinophils (%) (Auto) 1.1 % (0.0-3.0) Basophils (%) (Auto) 0.6 % (0.0-2.0) Sodium Level 139 mEQ/L (135-145) Potassium Level 3.7 mEQ/L (3.4-4.9) Chloride Level 103 mEQ/L (98-107) Carbon Dioxide Level 23 mEQ/L (20-30) Anion Gap 13 (5-15) Blood Urea Nitrogen 23 mg/dL (7-23) Creatinine 0.9 mg/dL (0.5-0.9) Estimat Glomerular Filtration Rate > 60 mL/min (>60) Glucose Level 90 mg/dL (74-106) Lactic Acid Level 1.40 mmol/L (0.66-2.22) Calcium Level 9.2 mg/dL (8.6-10.2) Total Bilirubin 0.2 mg/dL (0.0-1.2) Aspartate Amino Transf (AST/SGOT) 15 U/L (5-40) Alanine Aminotransferase (ALT/SGPT) 12 U/L (3-33) Alkaline Phosphatase 80 U/L (35-104) Total Creatine Kinase 32 U/L (26-140) Creatine Kinase MB < 1.5 ng/mL (< 3.8) Creatine Kinase MB Relative Index Troponin I < 0.30 ng/mL (<=0.30) Pro-B-Type Natriuretic Peptide 49 pg/mL (0-125) Total Protein 8.9 g/dL (6.6-8.7) H Albumin 3.2 g/dL (3.5-5.2) L Globulin 5.7 g/dL Albumin/Globulin Ratio 0.5 (1.0-2.7) L Lipase 15 U/L (< 60) Urine Color Pending Urine Appearance Pending Urine pH Pending Urine Specific [place] Pending Urine Protein Pending Urine Glucose (UA) Pending Urine Ketones Pending Urine Occult Blood Pending Urine Nitrite Pending Urine Bilirubin Pending Urine Urobilinogen Pending Urine Leukocyte Esterase Pending Current Medications Medications (Trade) Dose Ordered Sig/Vaibhav Route PRN Reason Start Time Stop Time Status Last Admin Dose Admin Albuterol/ Ipratropium (DuoNeb 0.5-3(2.5)mg/3ml) 3 ml Q4H PRN HHN dyspnea 12/17/16 12:00 12/22/16 11:59 Bupropion HCl (Wellbutrin) 100 mg DAILY ORAL 12/18/16 09:00 01/17/17 08:59 UNV Dextrose (Dextrose 50%) STAT PRN IV Hypoglycemia 12/17/16 12:00 01/16/17 11:59 Duloxetine HCl (Cymbalta) 60 mg DAILY ORAL 12/18/16 09:00 01/17/17 08:59 UNV Heparin Sodium (Porcine) (Heparin 5000 units/ml) 5,000 units EVERY 12 HOURS SUBQ 12/17/16 21:00 01/16/17 20:59 UNV Ketorolac Tromethamine (Toradol 30mg) 30 mg Q8H PRN IV moderate pain 4-6 12/17/16 12:00 12/22/16 11:59 Levetiracetam (Keppra) 1,500 mg TWICE A DAY ORAL 12/17/16 18:00 01/16/17 17:59 UNV Lorazepam (Ativan 2mg/ml 1ml) 0.5 mg Q4H PRN IV For Anxiety 12/17/16 12:00 12/24/16 11:59 Methylprednisolone Sodium Succinate (Solu-MEDROL) 60 mg EVERY 6 HOURS IV 12/17/16 12:00 01/16/17 11:59 UNV Mirtazapine (Remeron) 30 mg BEDTIME ORAL 12/17/16 21:00 01/16/17 20:59 UNV Morphine Sulfate (Morphine Sulfate) 2 mg Q4H PRN IVP severe pain 7-10 12/17/16 12:00 12/24/16 11:59 12/17/16 13:48 Nitroglycerin (Ntg) 0.4 mg Q5M X 3 DOSES PRN SL Prn Chest Pain 12/17/16 12:00 01/16/17 11:59 Ondansetron HCl (Zofran) 4 mg Q6H PRN IVP Nausea & Vomiting 12/17/16 12:00 01/16/17 11:59 Piperacillin Sod/ Tazobactam Sod/ Dextrose (Zosyn/D5W) 55 ml @ 110 mls/hr EVERY 8 HOURS IV 12/17/16 14:00 12/22/16 13:59 UNV Promethazine HCl/ Codeine (Phenergan with Codeine) 5 ml Q6H PRN ORAL cough 12/17/16 12:00 01/16/17 11:59 Quetiapine Fumarate (SEROquel) 100 mg BEDTIME ORAL 12/17/16 21:00 01/16/17 20:59 UNV Temazepam (Restoril) 15 mg HSPRN PRN ORAL Insomnia 12/17/16 12:00 12/24/16 11:59 Theophylline 100 mg 100 mg EVERY 12 HOURS ORAL 12/17/16 21:00 01/16/17 20:59 UNV Trazodone HCl (Desyrel) 100 mg BEDTIME PRN ORAL Insomnia 12/17/16 12:00 01/16/17 11:59 UNV Darrel Golden M.D. December 17, 2016 14:02
--- NOTE | 2016-12-17 14:05 | Emergency Room Report ---
History of Present Illness General Chief Complaint: General Complaint Source: Patient Present Illness HPI 65-year-old female presents to ED complaining of shortness of breath and chest pain. Symptoms for the last 2 days. Notes chest tightness. History of COPD. States she's having a productive cough with grayish phlegm. No sick contacts or recent travel. Denies fevers or chills. Denies nausea or vomiting. No other aggravating or leading factors. Denies any other associated symptoms Allergies: Coded Allergies: No Known Allergies (Verified , 05/21/06) Patient History Past Medical History: asthma, COPD, CVA/TIA, seizures Pertinent Family History: none Social History: Denies: alcohol use, drug use, smoking Now: No Immunizations: UTD Reviewed Nursing Documentation: PMH: Agreed, PSxH: Agreed Nursing Documentation-PMH Hx Cardiac Problems: Yes Hx Hypertension: No Hx Pacemaker: No Hx Asthma: Yes Hx COPD: Yes Hx Diabetes: No Hx Cancer: No Hx Gastrointestinal Problems: Yes Hx Dialysis: No Hx Neurological Problems: Yes Hx Cerebrovascular Accident: Yes - 2004 Hx Seizures: Yes Hx Epilepsy: Yes Hx Vertigo: Yes Hx Dizziness: Yes Hx Syncope: Yes Hx Headaches: Yes Hx Weakness: Yes Hx Fatigue: Yes Review of Systems All Other Systems: negative except mentioned in HPI Physical Exam Vital Signs Date Time Temp Pulse Resp B/P Pulse Ox O2 Delivery O2 Flow Rate FiO2 12/17/16 09:50 99.3 97 20 134/79 100 Room Air 12/17/16 10:18 21 12/17/16 11:46 2.0 Sp02 EP Interpretation: reviewed, normal General Appearance: no apparent distress, alert, GCS 15, non-toxic Head: normocephalic Eyes: bilateral eye PERRL, bilateral eye normal inspection ENT: normal ENT inspection Neck: normal inspection Respiratory: crackles, wheezing Cardiovascular #1: regular rate, rhythm, no edema Gastrointestinal: normal inspection Rectal: deferred Genitourinary: no CVA tenderness Musculoskeletal: normal inspection Neurologic: alert, oriented x3, responsive, motor strength/tone normal, sensory intact, speech normal Psychiatric: normal inspection Skin: normal inspection Lymphatic: normal inspection Medical Decision Making Diagnostic Impression: Primary Impression: COPD exacerbation Additional Impression: PNA (pneumonia) Qualified Codes: J18.9 - Pneumonia, unspecified organism ER Course Hospital Course 65-year-old F presenting to ED with SOB. h/o COPD Differential diagnoses include: Pneumonia, CHF exacerbation, pneumothorax, fluid overload Clinical course Patient placed on stretcher. On compliance monitor with stable vitals. After initial history and physical, I ordered nebulizer treatments. I ordered labs, IV fluids, EKG, chest x-ray, blood cultures, UA. Labs - noted leukocytosis noted, hemoglobin/hematocrit stable, electrolytes okay, lactate okay, troponins negative CXR - bilateral interstitial infiltrates EKG - NSR, no acute changes Patient states she does not feel better and wishes to be admitted. abx given Case discussed with Dr. Dial and he agreed to the patient to his service for further care and support I feel this is a highly complex case requiring extensive working including EKG/ Rhythm strip, Xray/CT/US, Blood/urine lab work, repeat exams while in ED, and administration of strong opiates/narcotics for pain control, admission to hospital or close patient follow up. Diagnosis - COPD exacerbation, PNA Patient admitted to telemetry in serious condition Labs Test 12/17/16 10:30 12/17/16 13:00 White Blood Count 15.5 K/UL (4.8-10.8) Red Blood Count 4.50 M/UL (4.20-5.40) Hemoglobin 11.7 G/DL (12.0-16.0) Hematocrit 38.7 % (37.0-47.0) Mean Corpuscular Volume 86 FL (80-99) Mean Corpuscular Hemoglobin 26.0 PG (27.0-31.0) Mean Corpuscular Hemoglobin Concent 30.2 G/DL (32.0-36.0) Red Cell Distribution Width 16.3 % (11.6-14.8) Platelet Count 454 K/UL (150-450) Mean Platelet Volume 6.3 FL (6.5-10.1) Neutrophils (%) (Auto) 69.3 % (45.0-75.0) Lymphocytes (%) (Auto) 22.0 % (20.0-45.0) Monocytes (%) (Auto) 7.0 % (1.0-10.0) Eosinophils (%) (Auto) 1.1 % (0.0-3.0) Basophils (%) (Auto) 0.6 % (0.0-2.0) Sodium Level 139 mEQ/L (135-145) Potassium Level 3.7 mEQ/L (3.4-4.9) Chloride Level 103 mEQ/L (98-107) Carbon Dioxide Level 23 mEQ/L (20-30) Anion Gap 13 (5-15) Blood Urea Nitrogen 23 mg/dL (7-23) Creatinine 0.9 mg/dL (0.5-0.9) Estimat Glomerular Filtration Rate > 60 mL/min (>60) Glucose Level 90 mg/dL (74-106) Lactic Acid Level 1.40 mmol/L (0.66-2.22) Calcium Level 9.2 mg/dL (8.6-10.2) Total Bilirubin 0.2 mg/dL (0.0-1.2) Aspartate Amino Transf (AST/SGOT) 15 U/L (5-40) Alanine Aminotransferase (ALT/SGPT) 12 U/L (3-33) Alkaline Phosphatase 80 U/L (35-104) Total Creatine Kinase 32 U/L (26-140) Creatine Kinase MB < 1.5 ng/mL (< 3.8) Creatine Kinase MB Relative Index Troponin I < 0.30 ng/mL (<=0.30) Pro-B-Type Natriuretic Peptide 49 pg/mL (0-125) Total Protein 8.9 g/dL (6.6-8.7) Albumin 3.2 g/dL (3.5-5.2) Globulin 5.7 g/dL Albumin/Globulin Ratio 0.5 (1.0-2.7) Lipase 15 U/L (< 60) EKG Diagnostic Results Rate: normal Rhythm: NSR ST Segments: no acute changes ASA given to the pt in ED: No Rhythm Strip Diag. Results EP Interpretation: yes Rhythm: NSR, no PVC's, no ectopy Chest X-Ray Diagnostic Results EP Interpretation: No Findings: no pneumothorax, no acute cardiopulmonary disease, other - diffuse bilateral interstitial infiltrates Number of Views: 1 Last Vital Signs Date Time Temp Pulse Resp B/P Pulse Ox O2 Delivery O2 Flow Rate FiO2 12/17/16 11:46 83 20 115/64 96 Nasal Cannula 2.0 12/17/16 10:33 28 12/17/16 10:01 99.3 Status: improved Disposition: ADMITTED INPATIENT Condition: Serious Referrals: NOT CHOSEN IPA/,REFERRING (PCP) GIO CAIN M.D. December 17, 2016 14:05
[2016-12-17 14:09] LABS: BACTERIA,URINE FEW /HPF; SQUAMOUS EPITHELIAL CELL,UR FEW /LPF (NONE/OCC)
[2016-12-17 14:36] VITALS: BP 111/67
[2016-12-17 16:00] VITALS: BP 112/60
--- NOTE | 2016-12-17 16:22 | GI Initial Consult Note ---
History of Present Illness General Date patient seen: December 17, 2016 Time patient seen: 16:18 Reason for Hospitalization: General Complaint Referring physician: BAYRON BENEDICT Reason for Consultation: DIARRHEA Present Illness HPI 65-year-old female presents to ED complaining of shortness of breath and chest pain. Symptoms for the last 2 days. Notes chest tightness. History of COPD. States she's having a productive cough with grayish phlegm. No sick contacts or recent travel. Denies fevers or chills. Denies nausea or vomiting. No other aggravating or leading factors. Denies any other associated symptoms GI CONSULT: Patient has a history of Crohn's disease. Patient presents emergency department today complaining of severe abdominal pain typical for her usual Crohn's disease exacerbation. Patient has had multiple surgeries in the past for bowel obstruction as well as lysis of adhesions. C/o of CP, abdominal pain and diarrhea. Presents today with leukocytosis and hypoalbuminemia. Endoscopy Procedure Note Indication for Procedure: CD, GERD Procedures Performed: EGD, colonoscopy Operative Findings/Diagnosis: , CD LUIS POTTS - Apr 29, 2016 12:35 Home Meds Reported Medications Linaclotide (LINZESS) 145 Mcg Capsule, 145 MCG PO DAILY, CAP 10/15/16 Acetaminophen (Acetaminophen) 650 Mg/20.3 Ml Solution, 650 MG ORAL Q8H Y for Fever/Headache/Mild Pain, ML 0 Refills 09/07/16 Mesalamine (PENTASA) 500 Mg Capsule.er, 1000 MG ORAL TID, #30 CAP 0 Refills 09/03/16 Montelukast Sodium* (MONTELUKAST SODIUM*) 10 Mg Tablet, 10 MG ORAL DAILY, TAB 09/03/16 Risperidone* (RISPERDAL*) 0.5 Mg Tablet, 0.5 MG ORAL BEDTIME, #30 TAB 0 Refills 09/03/16 Bupropion Hcl* (BUPROPION HCL*) 100 Mg Tablet, 100 MG ORAL DAILY, TAB 09/03/16 Trazodone* (TRAZODONE*) 150 Mg Tablet, 100 MG ORAL BEDTIME Y for Insomnia, TAB 09/03/16 Ibuprofen* (MOTRIN*) 600 Mg Tablet, 800 MG ORAL THREE TIMES A DAY, #30 TAB 0 Refills 09/03/16 Polyethylene Glycol 3350* (MIRALAX*) 17 Gm Powd.pack, 17 GM ORAL BEDTIME, PACKET 08/24/16 Topiramate* (TOPAMAX*) 25 Mg Tablet, 25 MG ORAL TWICE A DAY, #60 TAB 0 Refills 07/19/16 Quetiapine Fumarate* (SEROQUEL*) 200 Mg Tablet, 100 MG ORAL BEDTIME, TAB 07/19/16 Mirtazapine* (MIRTAZAPINE*) 15 Mg Tablet, 30 MG ORAL BEDTIME, TAB 07/19/16 Levetiracetam* (LEVETIRACETAM*) 500 Mg Tablet, 1500 MG ORAL TWICE A DAY, #60 TAB 0 Refills 07/19/16 Duloxetine Hcl* (CYMBALTA*) 60 Mg Capsule.dr, 60 MG ORAL DAILY, CAP 07/19/16 Diphenhydramine HCl (Benadryl) 25 Mg Capsule, 25 MG PO Q6HR Y for Itching, CAP 07/19/16 Med list reviewed/reconciled: Yes Allergies: Coded Allergies: No Known Allergies (Verified , 05/21/06) Patient History History Provided By: Patient, Medical Record PMH Narrative Past Medical History: asthma, COPD, CVA/TIA, seizures Pertinent Family History: none Social History: Denies: alcohol use, drug use, smoking Now: No Immunizations: UTD Reviewed Nursing Documentation: PMH: Agreed, PSxH: Agreed Nursing Documentation-PMH Hx Cardiac Problems: Yes Hx Hypertension: No Hx Pacemaker: No Hx Asthma: Yes Hx COPD: Yes Hx Diabetes: No Hx Cancer: No Hx Gastrointestinal Problems: Yes Hx Dialysis: No Hx Neurological Problems: Yes Hx Cerebrovascular Accident: Yes - 2004 Hx Seizures: Yes Hx Epilepsy: Yes Hx Vertigo: Yes Hx Dizziness: Yes Hx Syncope: Yes Hx Headaches: Yes Hx Weakness: Yes Hx Fatigue: Yes Social History: Reports: drug use - pain medication Review of Systems All Other Systems: negative except mentioned in HPI Physical Exam Vital Signs Date Time Temp Pulse Resp B/P Pulse Ox O2 Delivery O2 Flow Rate FiO2 12/17/16 09:50 99.3 97 20 134/79 100 Room Air 12/17/16 10:18 21 12/17/16 11:46 2.0 Sp02 EP Interpretation: reviewed Labs Laboratory Tests Test 12/17/16 10:30 12/17/16 13:00 White Blood Count 15.5 K/UL (4.8-10.8) H Red Blood Count 4.50 M/UL (4.20-5.40) Hemoglobin 11.7 G/DL (12.0-16.0) L Hematocrit 38.7 % (37.0-47.0) Mean Corpuscular Volume 86 FL (80-99) Mean Corpuscular Hemoglobin 26.0 PG (27.0-31.0) L Mean Corpuscular Hemoglobin Concent 30.2 G/DL (32.0-36.0) L Red Cell Distribution Width 16.3 % (11.6-14.8) H Platelet Count 454 K/UL (150-450) H Mean Platelet Volume 6.3 FL (6.5-10.1) L Neutrophils (%) (Auto) 69.3 % (45.0-75.0) Lymphocytes (%) (Auto) 22.0 % (20.0-45.0) Monocytes (%) (Auto) 7.0 % (1.0-10.0) Eosinophils (%) (Auto) 1.1 % (0.0-3.0) Basophils (%) (Auto) 0.6 % (0.0-2.0) Sodium Level 139 mEQ/L (135-145) Potassium Level 3.7 mEQ/L (3.4-4.9) Chloride Level 103 mEQ/L (98-107) Carbon Dioxide Level 23 mEQ/L (20-30) Anion Gap 13 (5-15) Blood Urea Nitrogen 23 mg/dL (7-23) Creatinine 0.9 mg/dL (0.5-0.9) Estimat Glomerular Filtration Rate > 60 mL/min (>60) Glucose Level 90 mg/dL (74-106) Lactic Acid Level 1.40 mmol/L (0.66-2.22) Calcium Level 9.2 mg/dL (8.6-10.2) Total Bilirubin 0.2 mg/dL (0.0-1.2) Aspartate Amino Transf (AST/SGOT) 15 U/L (5-40) Alanine Aminotransferase (ALT/SGPT) 12 U/L (3-33) Alkaline Phosphatase 80 U/L (35-104) Total Creatine Kinase 32 U/L (26-140) Creatine Kinase MB < 1.5 ng/mL (< 3.8) Creatine Kinase MB Relative Index Troponin I < 0.30 ng/mL (<=0.30) Pro-B-Type Natriuretic Peptide 49 pg/mL (0-125) Total Protein 8.9 g/dL (6.6-8.7) H Albumin 3.2 g/dL (3.5-5.2) L Globulin 5.7 g/dL Albumin/Globulin Ratio 0.5 (1.0-2.7) L Lipase 15 U/L (< 60) Urine Color Yellow Urine Appearance Slightly cloudy Urine pH 6 (4.5-8.0) Urine Specific [place] 1.020 (1.005-1.035) Urine Protein 1+ (NEGATIVE) H Urine Glucose (UA) Negative (NEGATIVE) Urine Ketones Negative (NEGATIVE) Urine Occult Blood 4+ (NEGATIVE) H Urine Nitrite Negative (NEGATIVE) Urine Bilirubin Negative (NEGATIVE) Urine Urobilinogen Normal MG/DL (0.0-1.0) Urine Leukocyte Esterase 2+ (NEGATIVE) H Urine RBC 5-10 /HPF (0 - 2) H Urine WBC 5-10 /HPF (0 - 2) H Urine Squamous Epithelial Cells Few /LPF (NONE/OCC) Urine Bacteria Few /HPF (NONE) General Appearance: no apparent distress Head: normocephalic EENT: normal ENT inspection Neck: supple Respiratory: normal breath sounds, no respiratory distress Cardiovascular: normal rate Gastrointestinal: soft, distended, other - multiple abdominal surgical scars Rectal: deferred Neurologic: normal inspection, alert, oriented x3, responsive Psychiatric: normal inspection, judgement/insight normal, memory normal Skin: normal inspection, normal color, no rash Lymphatic: normal inspection, no adenopathy Current Medications Current Medications Medications (Trade) Dose Ordered Sig/Vaibhav Route PRN Reason Start Time Stop Time Status Last Admin Dose Admin Albuterol/ Ipratropium (DuoNeb 0.5-3(2.5)mg/3ml) 3 ml Q4H PRN HHN dyspnea 12/17/16 12:00 12/22/16 11:59 Azithromycin (Zithromax) 250 mg Q24H ORAL 12/18/16 09:00 12/25/16 08:59 Bupropion HCl (Wellbutrin) 100 mg DAILY ORAL 12/18/16 09:00 01/17/17 08:59 Dextrose STAT PRN IV Hypoglycemia 12/17/16 12:00 01/16/17 11:59 Duloxetine HCl (Cymbalta) 60 mg DAILY ORAL 12/18/16 09:00 01/17/17 08:59 Heparin Sodium (Porcine) (Heparin 5000 units/ml) 5,000 units EVERY 12 HOURS SUBQ 12/17/16 21:00 01/16/17 20:59 Ketorolac Tromethamine (Toradol 30mg) 30 mg Q8H PRN IV moderate pain 4-6 12/17/16 12:00 12/22/16 11:59 Levetiracetam (Keppra) 1,500 mg TWICE A DAY ORAL 12/17/16 18:00 01/16/17 17:59 Lorazepam (Ativan 2mg/ml 1ml) 0.5 mg Q4H PRN IV For Anxiety 12/17/16 12:00 12/24/16 11:59 Methylprednisolone Sodium Succinate (Solu-MEDROL) 60 mg EVERY 6 HOURS IV 12/17/16 18:00 01/16/17 17:59 Mirtazapine (Remeron) 30 mg BEDTIME ORAL 12/17/16 21:00 01/16/17 20:59 Morphine Sulfate (Morphine Sulfate) 2 mg Q4H PRN IVP severe pain 7-10 12/17/16 12:00 12/24/16 11:59 12/17/16 13:48 Nitroglycerin (Ntg) 0.4 mg Q5M X 3 DOSES PRN SL Prn Chest Pain 12/17/16 12:00 01/16/17 11:59 Ondansetron HCl (Zofran) 4 mg Q6H PRN IVP Nausea & Vomiting 12/17/16 12:00 01/16/17 11:59 Piperacillin Sod/ Tazobactam Sod/ Dextrose (Zosyn/D5W) 110 ml @ 27.5 mls/hr Q8HR@0000,0800,1600 IVPB 12/17/16 16:00 12/24/16 15:59 Promethazine HCl/ Codeine (Phenergan with Codeine) 5 ml Q6H PRN ORAL cough 12/17/16 12:00 01/16/17 11:59 Quetiapine Fumarate (SEROquel) 100 mg BEDTIME ORAL 12/17/16 21:00 01/16/17 20:59 Temazepam (Restoril) 15 mg HSPRN PRN ORAL Insomnia 12/17/16 12:00 12/24/16 11:59 Theophylline (Erwin-Dur) 100 mg EVERY 12 HOURS ORAL 12/17/16 21:00 01/16/17 20:59 Trazodone HCl (Desyrel) 100 mg BEDTIME PRN ORAL Insomnia 12/17/16 21:00 01/16/17 20:59 GI: Plan Problems: (1) Smoker (2) History of exploratory laparotomy (3) Abdominal pain (4) Crohns disease (5) Diarrhea (6) IBD (inflammatory bowel disease) (7) Nausea and vomiting (8) Opioid dependence Plan s/p EGD/colon 2016 non functional implanted morphine pump LLQ symptomatic treatment at this time electrolyte replacement low residual diet Imodium prn after stool studies are collected. ordered for cdiff, stool culture mesalamine for Crohns pain mgmt fu labs Discussed with Dr. Potts. Thank you for referring this patient, we will follow. Tara Scott N.P. December 17, 2016 16:22
[2016-12-17] MEDS: Zosyn 3.375gm q8h **Extended infusion IVPB SCH ×2 (18:49)
[2016-12-17] MEDS: Solu-MEDROL 125mg Inj IV SCH (18:49)
--- NOTE | 2016-12-17 19:46 | Consultation ---
DATE OF CONSULTATION: INFECTIOUS DISEASE CONSULTATION CONSULTING PHYSICIAN: Darrel Golden M.D. REQUESTING PHYSICIAN: Barber Dial D.O. REASON FOR CONSULTATION: Community-acquired pneumonia. Recommendation for antibiotics therapy. HISTORY OF PRESENT ILLNESS: The patient is a 65-year-old female, presented to the emergency room at [facility] for progressive shortness of breath with cough productive of grayish phlegm, which has been going on for the last couple of days. The patient denied any shortness of breath. She had a history of chronic obstructive pulmonary disease and she noticed that now she is getting more short of breath with activities. Denied any recent travel or sick contacts. No fever or chills. No nausea or vomiting. The patient had a chest x-ray in the emergency room, which showed interstitial infiltrates on both sides with leukocytosis, so she was started on intravenous antibiotics therapy and I was consulted by the primary provider for antibiotics treatment and further management. PAST MEDICAL HISTORY: Significant for asthma, chronic obstructive pulmonary disease, CVA, and seizure. MEDICATIONS: The patient was started on Zosyn and steroid by the adoption specialist. ALLERGIES: She has no known drug allergy. FAMILY HISTORY: Not contributory. SOCIAL HISTORY: The patient denies using any drugs, tobacco, or alcohol. REVIEW OF SYSTEMS: A 12-point of system reviewed were all negative apart from the one I mentioned above in my History and Physical. PHYSICAL EXAMINATION: VITAL SIGNS: Temperature 99.3 degrees, pulse 79, respirations 20, blood pressure 111/67, and saturation 98% on nasal cannula of 2 liters. GENERAL: A middle-aged female, up in bed, coughing, awake, alert,a nd not in acute distress. HEENT: Normocephalic and atraumatic. Pupils reactive to light equally. Moist oral mucosa. No exudate. NECK: Supple. No lymphadenopathy. CARDIOVASCULAR: Regular rate and rhythm. No murmurs. LUNGS: She had crackles and diminished breathing sounds on both sides. ABDOMEN: Soft, nontender, and nondistended. Positive bowel sounds. No hepatosplenomegaly. No ascites. EXTREMITIES: No edema or cyanosis. LABORATORY DATA: Labs showed white count of 15.5 and hemoglobin of 11.7. BUN of 23 and creatinine of 0.9. AST of 15 and ALT of 12. Urinalysis showed leukocyte esterase +2, WBCs 5 to 10, and red blood cells 5 to 10. Chest x-ray showed stable bilateral interstitial disease and fibrosis. ASSESSMENT AND PLAN: 1. Community-acquired pneumonia in immunocompromised patient. Agree on Zosyn. At this point, we will add azithromycin to cover atypical organisms. Monitor her symptoms closely and monitor her cultures including sputum culture. 2. Sepsis due to pneumonia. Continue wide-spectrum antibiotics therapy. We will send blood culture. 3. Crohn's disease. Consult Gastrointestinal for further management. 4. Chronic obstructive pulmonary disease with exacerbation. Started on large dose of steroids. Recommended to taper and continue nebulizer. 5. Abdominal pain, suspect due to Crohn's disease. Consult Gastrointestinal for further evaluation. Darrel Golden M.D. DR: CHIOMA JOB#: [id number] CC:
[2016-12-17 20:00] VITALS: BP 119/75
[2016-12-17] MEDS: Theophylline ER 100mg ORAL SCH (20:59)
[2016-12-17] MEDS ORDERED: TraZODone 100mg tab ORAL PRN (21:00)
[2016-12-17] MEDS ORDERED: QUEtiapine 200mg tab ORAL SCH (21:00)
[2016-12-17] MEDS: Heparin 5000 units/ml inj SUBQ SCH (21:03)
--- NOTE | 2016-12-17 21:27 | Consultation ---
History of Present Illness General Date patient seen: December 17, 2016 Chief Complaint: General Complaint Referring physician: BAYRON BENEDICT Reason for Consultation: cough Present Illness HPI 65-year-old female with hx of COPD, smoking presented to ED complaining of shortness of breath and pleuritic chest pain and productive cough. Symptoms for the last 2 days. History of COPD. Denied fevers or chills. Denies any other associated symptoms. Her cxr showed chronic pulmonary fibrosi. She is admitted for acute exacerbation of COPD and bronchitis. Allergies: Coded Allergies: No Known Allergies (Verified , 05/21/06) Medication History Scheduled Bupropion Hcl* (Bupropion Hcl*), 100 MG ORAL DAILY, (Reported) Duloxetine Hcl* (Cymbalta*), 60 MG ORAL DAILY, (Reported) Ibuprofen* (Motrin*), 800 MG ORAL THREE TIMES A DAY, (Reported) Levetiracetam* (Levetiracetam*), 1,500 MG ORAL TWICE A DAY, (Reported) Linaclotide (Linzess), 145 MCG PO DAILY, (Reported) Mesalamine (Pentasa), 1,000 MG ORAL TID, (Reported) Mirtazapine* (Mirtazapine*), 30 MG ORAL BEDTIME, (Reported) Montelukast Sodium* (Montelukast Sodium*), 10 MG ORAL DAILY, (Reported) Polyethylene Glycol 3350* (Miralax*), 17 GM ORAL BEDTIME, (Reported) Quetiapine Fumarate* (Seroquel*), 100 MG ORAL BEDTIME, (Reported) Risperidone* (Risperdal*), 0.5 MG ORAL BEDTIME, (Reported) Topiramate* (Topamax*), 25 MG ORAL TWICE A DAY, (Reported) Scheduled PRN Acetaminophen (Acetaminophen), 650 MG ORAL Q8H PRN for Fever/Headache/Mild Pain, (Reported) Diphenhydramine HCl (Benadryl), 25 MG PO Q6HR PRN for Itching, (Reported) Trazodone* (Trazodone*), 100 MG ORAL BEDTIME PRN for Insomnia, (Reported) Patient History Healthcare decision maker N Resuscitation status Full Code Advanced Directive on File Past Medical/Surgical History Past Medical/Surgical History: (1) Smoker (2) IBD (inflammatory bowel disease) (3) Crohns disease (4) Interstitial lung disease (5) Emphysema (6) Elevated CEA Review of Systems Respiratory: Reports: shortness of breath, sputum Physical Exam General Appearance: WD/WN, alert Lines, tubes and drains: peripheral HEENT: normocephalic Neck: non-tender, normal alignment Respiratory/Chest: chest wall non-tender, rhonchi - bilaterally Cardiovascular/Chest: normal peripheral pulses, normal rate Abdomen: normal bowel sounds Genitourinary/Rectal: normal genital exam Last 24 Hour Vital Signs Date Time Temp Pulse Resp B/P Pulse Ox O2 Delivery O2 Flow Rate FiO2 12/17/16 20:00 97.0 88 18 119/75 96 Room Air 12/17/16 16:00 97.0 80 20 112/60 100 Room Air 12/17/16 16:00 78 12/17/16 14:39 79 12/17/16 14:36 79 20 111/67 98 Nasal Cannula 2.0 12/17/16 14:36 99.3 79 20 111/67 98 Nasal Cannula 2.0 28 12/17/16 14:11 99.3 12/17/16 14:11 99.3 12/17/16 11:46 83 20 115/64 96 Nasal Cannula 2.0 12/17/16 10:33 90 18 99 Nasal Cannula 28 12/17/16 10:18 28 12/17/16 10:18 88 20 98 Nasal Cannula 28 12/17/16 10:18 88 20 Room Air 21 12/17/16 10:01 99.3 88 20 120/73 92 Room Air 12/17/16 09:50 99.3 97 20 134/79 100 Room Air Laboratory Tests Test 12/17/16 10:30 12/17/16 13:00 White Blood Count 15.5 K/UL (4.8-10.8) H Red Blood Count 4.50 M/UL (4.20-5.40) Hemoglobin 11.7 G/DL (12.0-16.0) L Hematocrit 38.7 % (37.0-47.0) Mean Corpuscular Volume 86 FL (80-99) Mean Corpuscular Hemoglobin 26.0 PG (27.0-31.0) L Mean Corpuscular Hemoglobin Concent 30.2 G/DL (32.0-36.0) L Red Cell Distribution Width 16.3 % (11.6-14.8) H Platelet Count 454 K/UL (150-450) H Mean Platelet Volume 6.3 FL (6.5-10.1) L Neutrophils (%) (Auto) 69.3 % (45.0-75.0) Lymphocytes (%) (Auto) 22.0 % (20.0-45.0) Monocytes (%) (Auto) 7.0 % (1.0-10.0) Eosinophils (%) (Auto) 1.1 % (0.0-3.0) Basophils (%) (Auto) 0.6 % (0.0-2.0) Sodium Level 139 mEQ/L (135-145) Potassium Level 3.7 mEQ/L (3.4-4.9) Chloride Level 103 mEQ/L (98-107) Carbon Dioxide Level 23 mEQ/L (20-30) Anion Gap 13 (5-15) Blood Urea Nitrogen 23 mg/dL (7-23) Creatinine 0.9 mg/dL (0.5-0.9) Estimat Glomerular Filtration Rate > 60 mL/min (>60) Glucose Level 90 mg/dL (74-106) Lactic Acid Level 1.40 mmol/L (0.66-2.22) Calcium Level 9.2 mg/dL (8.6-10.2) Total Bilirubin 0.2 mg/dL (0.0-1.2) Aspartate Amino Transf (AST/SGOT) 15 U/L (5-40) Alanine Aminotransferase (ALT/SGPT) 12 U/L (3-33) Alkaline Phosphatase 80 U/L (35-104) Total Creatine Kinase 32 U/L (26-140) Creatine Kinase MB < 1.5 ng/mL (< 3.8) Creatine Kinase MB Relative Index Troponin I < 0.30 ng/mL (<=0.30) Pro-B-Type Natriuretic Peptide 49 pg/mL (0-125) Total Protein 8.9 g/dL (6.6-8.7) H Albumin 3.2 g/dL (3.5-5.2) L Globulin 5.7 g/dL Albumin/Globulin Ratio 0.5 (1.0-2.7) L Lipase 15 U/L (< 60) Urine Color Yellow Urine Appearance Slightly cloudy Urine pH 6 (4.5-8.0) Urine Specific [place] 1.020 (1.005-1.035) Urine Protein 1+ (NEGATIVE) H Urine Glucose (UA) Negative (NEGATIVE) Urine Ketones Negative (NEGATIVE) Urine Occult Blood 4+ (NEGATIVE) H Urine Nitrite Negative (NEGATIVE) Urine Bilirubin Negative (NEGATIVE) Urine Urobilinogen Normal MG/DL (0.0-1.0) Urine Leukocyte Esterase 2+ (NEGATIVE) H Urine RBC 5-10 /HPF (0 - 2) H Urine WBC 5-10 /HPF (0 - 2) H Urine Squamous Epithelial Cells Few /LPF (NONE/OCC) Urine Bacteria Few /HPF (NONE) Height (Feet): 5 Height (Inches): 6.00 Weight (Pounds): 164 Medications Current Medications Medications (Trade) Dose Ordered Sig/Vaibhav Route PRN Reason Start Time Stop Time Status Last Admin Dose Admin Albuterol/ Ipratropium (DuoNeb 0.5-3(2.5)mg/3ml) 3 ml Q4H PRN HHN dyspnea 12/17/16 12:00 12/22/16 11:59 Azithromycin (Zithromax) 250 mg Q24H ORAL 12/18/16 09:00 12/25/16 08:59 Bupropion HCl (Wellbutrin) 100 mg DAILY ORAL 12/18/16 09:00 01/17/17 08:59 Dextrose STAT PRN IV Hypoglycemia 12/17/16 12:00 01/16/17 11:59 Duloxetine HCl (Cymbalta) 60 mg DAILY ORAL 12/18/16 09:00 01/17/17 08:59 Heparin Sodium (Porcine) (Heparin 5000 units/ml) 5,000 units EVERY 12 HOURS SUBQ 12/17/16 21:00 01/16/17 20:59 12/17/16 21:03 Ketorolac Tromethamine (Toradol 30mg) 30 mg Q8H PRN IV moderate pain 4-6 12/17/16 12:00 12/22/16 11:59 Levetiracetam (Keppra) 1,500 mg TWICE A DAY ORAL 12/17/16 18:00 01/16/17 17:59 12/17/16 18:50 Lorazepam (Ativan 2mg/ml 1ml) 0.5 mg Q4H PRN IV For Anxiety 12/17/16 12:00 12/24/16 11:59 Mesalamine (Asacol) 800 mg THREE TIMES A DAY ORAL 12/17/16 20:30 01/16/17 20:29 12/17/16 20:59 Methylprednisolone Sodium Succinate (Solu-MEDROL) 60 mg EVERY 6 HOURS IV 12/17/16 18:00 01/16/17 17:59 12/17/16 18:49 Mirtazapine (Remeron) 30 mg BEDTIME ORAL 12/17/16 21:00 01/16/17 20:59 12/17/16 21:00 Morphine Sulfate (Morphine Sulfate) 2 mg Q4H PRN IVP severe pain 7-10 12/17/16 12:00 12/24/16 11:59 12/17/16 18:52 Nitroglycerin (Ntg) 0.4 mg Q5M X 3 DOSES PRN SL Prn Chest Pain 12/17/16 12:00 01/16/17 11:59 Ondansetron HCl (Zofran) 4 mg Q6H PRN IVP Nausea & Vomiting 12/17/16 12:00 01/16/17 11:59 Piperacillin Sod/ Tazobactam Sod/ Dextrose (Zosyn/D5W) 110 ml @ 27.5 mls/hr Q8HR@0000,0800,1600 IVPB 12/17/16 16:00 12/24/16 15:59 12/17/16 18:49 Promethazine HCl/ Codeine (Phenergan with Codeine) 5 ml Q6H PRN ORAL cough 12/17/16 12:00 01/16/17 11:59 Quetiapine Fumarate (SEROquel) 100 mg BEDTIME ORAL 12/17/16 21:00 01/16/17 20:59 12/17/16 20:59 Temazepam (Restoril) 15 mg HSPRN PRN ORAL Insomnia 12/17/16 12:00 12/24/16 11:59 Theophylline (Erwin-Dur) 100 mg EVERY 12 HOURS ORAL 12/17/16 21:00 01/16/17 20:59 12/17/16 20:59 Trazodone HCl (Desyrel) 100 mg BEDTIME PRN ORAL Insomnia 12/17/16 21:00 01/16/17 20:59 Assessment/Plan Problem List: (1) COPD exacerbation ICD Codes: J44.1 - COPD exacerbation SNOMED: 694484384 (2) Interstitial lung disease ICD Codes: J84.9 - Interstitial pulmonary disease, unspecified SNOMED: 37043124, 238865037 (3) Emphysema ICD Codes: J43.9 - Emphysema SNOMED: 40218796 (4) Chronic abdominal pain (5) Crohn's disease ICD Codes: K50.90 - Crohn's disease SNOMED: 09430261 Assessment/Plan IV steroids, IV antibiotics check sputum respiratory treatment titrate fio2 to sat of 92% DWAYNE SOTO December 17, 2016 21:26
--- NOTE | 2016-12-17 21:32 | History and Physical Report ---
DATE OF ADMISSION: 12/17/2016 TIME SEEN: 1 p.m. CONSULTANTS: 1. Dr. Dial. 2. Rob Wagner M.D. 3. Dr. Cordova. 4. Skyler Gallegos M.D. 5. Winston Malhotra M.D. 6. Pk Roche M.D. CHIEF COMPLAINT: Chest pain, abdominal pain, diarrhea, shortness of breath, pneumonia, and COPD exacerbation. BRIEF HISTORY: The patient is a 65-year-old female who complained of cough times four days. Today, it became worse, has some diarrhea, has some chest pain, came to the [place] [facility], diagnosed as above, and being admitted to telemetry for further care at clinic. no complaint otherwise. PAST MEDICAL HISTORY: Includes Crohn, COPD, and chronic pain. PAST SURGICAL HISTORY: Abdominal surgery. MEDICATIONS: Wellbutrin, Cymbalta, Remeron, Seroquel, Keppra, Zosyn, Duo-Neb, Toradol, Ativan, Solu-Medrol, and morphine. ALLERGIES: Denied. SOCIAL HISTORY: Positive smoke. Positive alcohol. No intravenous drug abuse. FAMILY HISTORY: Noncontributory. REVIEW OF SYSTEMS: Chest pain, shortness of breath, nausea, no vomiting. Positive diarrhea. PHYSICAL EXAMINATION: GENERAL: Slightly weak and pale, oriented x3, and in no acute distress. VITAL SIGNS: Temperature 99 degrees, pulse is 63, respiratory rate 20, and blood pressure 115/64. CARDIOVASCULAR: No murmurs. LUNGS: Poor air exchange. ABDOMEN: Positive bowel sounds. Slightly tender and soft. No guarding. No rigidity. No rebound. EXTREMITIES: No cyanosis, clubbing, or edema. NEUROLOGIC: The patient moves all extremities, but slightly weak. LABORATORY AND DIAGNOSTIC DATA: White count 15, hemoglobin and hematocrit 11.7 and 38, and platelets 454,000. BMP shows albumin 3.2, lipase 15, otherwise BMP is normal. Troponin is less than 0.3. ASSESSMENT: 1. Pneumonia. 2. Cough. 3. Sepsis. 4. Chest pain. 5. Diarrhea. 6. Abdominal pain. 7. Weakness. 8. Anemia. 9. Chronic obstructive pulmonary disease exacerbation. 10. Crohn's disease. 11. Chronic pain. PLAN: Continue pre-medications. OT/PT. Dietary followup. O2 and pulmonary treatment. Antibiotic per Infectious Disease. Dr. Wagner, Dr. Cordova, Dr. Gallegos, Dr. Malhotra, Dr. Roche, and Dr. Goncalves to consult. We will continue to follow this patient medically. Barber Dial D.O. DR: Stefan JOB#: [id number] CC:
[2016-12-17 23:47] VITALS: BP 115/60
[2016-12-18] MEDS: Zosyn 3.375gm q8h **Extended infusion IVPB SCH ×6 (00:25→10:26)
[2016-12-18] MEDS: Solu-MEDROL 125mg Inj IV SCH ×5 (00:26→23:34)
[2016-12-18 04:13] VITALS: BP 116/72
[2016-12-18] MEDS: Morphine Sulfate 2mg/ml Inj IVP PRN ×4 (05:58→19:59)
[2016-12-18 07:21] LABS: MEAN CORPUSCULAR HEMOGLOBIN 26.6 PG (27.0-31.0); MEAN CORPUSCULAR HGB CONC 31.2 G/DL (32.0-36.0); MEAN CORPUSCULAR VOLUME 85 FL (80-99); MEAN PLATELET VOLUME 6.2 FL (6.5-10.1); PLATELET COUNT 437 K/UL (150-450); RED BLOOD COUNT 4.03 M/UL (4.20-5.40); WHITE BLOOD COUNT 16.9 K/UL (4.8-10.8)
[2016-12-18 07:42] VITALS: BP 120/67
[2016-12-18 07:45] LABS: ANION GAP 14 (5-15); CALCIUM 9.3 mg/dL (8.6-10.2); CARBON DIOXIDE 23 mEQ/L (20-30); CHLORIDE 100 mEQ/L (98-107); CREATININE 0.8 mg/dL (0.5-0.9); GLOMERULAR FILTRATION RATE > 60 mL/min (>60); HEMOLYSIS 1; SODIUM 137 mEQ/L (135-145)
[2016-12-18] MEDS ORDERED: Azithromycin 250mg tab ORAL SCH (09:00)
[2016-12-18] MEDS ORDERED: DULoxetine 30mg cap ORAL SCH (09:00)
[2016-12-18 10:01] LABS: LYMPHOCYTES % (MANUAL) 11 % (20-45); NEUTROPHILS % (MANUAL) 87 % (45-75); TOTAL CELLS COUNTED 100
[2016-12-18 10:02] LABS: BAND NEUTROPHILS % (MANUAL) 0 % (0-8); BASOPHILS % (MANUAL) 0 % (0-2); EOSINOPHILS % (MANUAL) 0 % (0-3); PLATELET ESTIMATE INCREASED; PLATELET MORPHOLOGY NORMAL
[2016-12-18 10:03] LABS: ANISOCYTOSIS 1+; HYPOCHROMASIA 2+
--- NOTE | 2016-12-18 10:14 | General Progress Note ---
Assessment/Plan Assessment/Plan (1) Lumbar spondylosis (2) Chronic abdominal pain (3) Radiculopathy of lumbar region (4) Herniated nucleus pulposus, lumbar (5) Chronic pancreatitis (6) Chronic pain Pt will be continued on Morphine 2mg IV Q4H PRN severe pain and pt has intrathecal pump. Pt was d/w Dr. Malhotra and he concurred. Thank you for courtesy of this consultation. Subjective Date patient seen: December 18, 2016 Time patient seen: 08:00 - am Allergies: Coded Allergies: No Known Allergies (Verified , 05/21/06) Subjective Constitutional: Denies: chills, diaphoresis, fever, malaise, no symptoms, other , Reports: weakness HEENT: Denies: blurred vision, double vision, ear discharge, ear pain, eye pain , mouth pain, mouth swelling, no symptoms, nose congestion, nose pain, other, tearing, throat pain, throat swelling Cardiovascular: Denies: chest pain, edema, irregular heart rate, lightheadedness, no symptoms, other, palpitations, syncope Respiratory: Denies: SOB at rest, SOB with excertion, cough, no symptoms, orthopnea, other, shortness of breath, sputum, stridor, wheezing Gastrointestinal/Abdominal: Denies: abdomen distended, black stools, blood in stool, constipated, diarrhea, difficulty swallowing, nausea, no symptoms, other , poor appetite, poor fluid intake, rectal bleeding, tarry stools, vomiting, Reports: abdominal pain Genitourinary: Denies: burning, discharge, flank pain, frequency, hematuria, incontinence, no symptoms, other, pain, urgency Neurologic/Psychiatric: Denies: anxiety, depressed, emotional problems, headache, no symptoms, numbness, other, paresthesia, pre-existing deficit, seizure, tingling, tremors, weakness Endocrine: Denies: excessive sweating, flushing, increased hunger, increased thirst, increased urine, intolerance to cold, intolerance to heat, no symptoms, other, unexplained weight gain, unexplained weight loss Hematologic/Lymphatic: Denies: anemia, easy bleeding, easy bruising, no symptoms, other Subjective Pt is a known pt from prior admission and f/u in the office for her intrathecal pump refills. Pt has chronic abdominal pain due to pancreatitis. Admitted due to COPD exacerbation. Objective Last 24 Hour Vital Signs Date Time Temp Pulse Resp B/P Pulse Ox O2 Delivery O2 Flow Rate FiO2 12/18/16 07:42 96.8 73 18 120/67 98 Nasal Cannula 2.0 12/18/16 04:13 97.5 64 19 116/72 100 Nasal Cannula 2.0 12/18/16 04:00 66 12/18/16 00:00 67 12/17/16 23:47 99.5 72 20 115/60 98 Nasal Cannula 2.0 12/17/16 20:00 76 12/17/16 20:00 97.0 88 18 119/75 96 Room Air 12/17/16 16:00 97.0 80 20 112/60 100 Room Air 12/17/16 16:00 78 12/17/16 14:39 79 12/17/16 14:36 79 20 111/67 98 Nasal Cannula 2.0 12/17/16 14:36 99.3 79 20 111/67 98 Nasal Cannula 2.0 28 12/17/16 14:11 99.3 12/17/16 14:11 99.3 12/17/16 11:46 83 20 115/64 96 Nasal Cannula 2.0 12/17/16 10:33 90 18 99 Nasal Cannula 28 12/17/16 10:18 28 12/17/16 10:18 88 20 98 Nasal Cannula 28 12/17/16 10:18 88 20 Room Air 21 Intake and Output 12/17/16 12/18/16 19:00 07:00 Intake Total 220.0 ml Balance 220.0 ml IV Total 220.0 ml # Voids 1 1 # Bowel Movements 1 Laboratory Tests 12/17/16 10:30: White Blood Count 15.5H, Red Blood Count 4.50, Hemoglobin 11.7L, Hematocrit 38.7 , Mean Corpuscular Volume 86, Mean Corpuscular Hemoglobin 26.0L, Mean Corpuscular Hemoglobin Concent 30.2L, Red Cell Distribution Width 16.3H, Platelet Count 454H, Mean Platelet Volume 6.3L, Neutrophils (%) (Auto) 69.3, Lymphocytes (%) (Auto) 22.0, Monocytes (%) (Auto) 7.0, Eosinophils (%) (Auto) 1.1, Basophils (%) (Auto) 0.6, Sodium Level 139, Potassium Level 3.7, Chloride Level 103, Carbon Dioxide Level 23, Anion Gap 13, Blood Urea Nitrogen 23, Creatinine 0.9, Estimat Glomerular Filtration Rate > 60, Glucose Level 90, Lactic Acid Level 1.40, Calcium Level 9.2, Total Bilirubin 0.2, Aspartate Amino Transf (AST/SGOT) 15, Alanine Aminotransferase (ALT/SGPT) 12, Alkaline Phosphatase 80, Total Creatine Kinase 32, Creatine Kinase MB < 1.5, Creatine Kinase MB Relative Index , Troponin I < 0.30, Pro-B-Type Natriuretic Peptide 49 , Total Protein 8.9H, Albumin 3.2L, Globulin 5.7, Albumin/Globulin Ratio 0.5L, Lipase 15 12/17/16 13:00: Urine Color Yellow, Urine Appearance Slightly cloudy, Urine pH 6, Urine Specific [place] 1.020, Urine Protein 1+H, Urine Glucose (UA) Negative, Urine Ketones Negative, Urine Occult Blood 4+H, Urine Nitrite Negative, Urine Bilirubin Negative, Urine Urobilinogen Normal, Urine Leukocyte Esterase 2+H, Urine RBC 5-10H, Urine WBC 5-10H, Urine Squamous Epithelial Cells Few, Urine Bacteria Few 12/18/16 05:15: White Blood Count 16.9H, Red Blood Count 4.03L, Hemoglobin 10.7L, Hematocrit 34.3L, Mean Corpuscular Volume 85, Mean Corpuscular Hemoglobin 26.6L, Mean Corpuscular Hemoglobin Concent 31.2L, Red Cell Distribution Width 16.0H, Platelet Count 437, Mean Platelet Volume 6.2L, Neutrophils (%) (Auto) , Lymphocytes (%) (Auto) , Monocytes (%) (Auto) , Eosinophils (%) (Auto) , Basophils (%) (Auto) , Sodium Level 137, Potassium Level 4.0, Chloride Level 100 , Carbon Dioxide Level 23, Anion Gap 14, Blood Urea Nitrogen 25H, Creatinine 0.8 , Estimat Glomerular Filtration Rate > 60, Glucose Level 132H, Calcium Level 9.3 , Differential Total Cells Counted 100, Neutrophils % (Manual) 87H, Lymphocytes % (Manual) 11L, Monocytes % (Manual) 2, Eosinophils % (Manual) 0, Basophils % ( Manual) 0, Band Neutrophils 0, Platelet Estimate IncreasedH, Platelet Morphology Normal, Hypochromasia 2+, Anisocytosis 1+ Height (Feet): 5 Height (Inches): 6.00 Weight (Pounds): 164 Objective General Appearance: no apparent distress, alert EENT: normal ENT inspection, TMs normal Neck: normal alignment, supple Cardiovascular: normal rate, regular rhythm Respiratory/Chest: decreased breath sounds Abdomen: tender, soft Extremities: non-tender Edema: no edema noted Arm (L), no edema noted Arm (R), no edema noted Leg (L), no edema noted Leg (R), no edema noted Pedal (L), no edema noted Pedal (R), no edema noted Generalized Neurologic: alert, oriented x 3 Skin: warm/dry JOSE ARREDONDO December 18, 2016 10:14
[2016-12-18] MEDS: Theophylline ER 100mg ORAL SCH ×2 (10:27→21:39)
[2016-12-18] MEDS: Heparin 5000 units/ml inj SUBQ SCH ×2 (10:29→21:37)
[2016-12-18 11:16] VITALS: BP 134/75
--- NOTE | 2016-12-18 11:22 | GI Progress Note ---
Assessment/Plan Problems: (1) Nausea and vomiting (2) IBD (inflammatory bowel disease) ICD Codes: K63.89 - Other specified diseases of intestine SNOMED: 76672157 (3) Diarrhea ICD Codes: R19.7 - Diarrhea, unspecified SNOMED: 13588720 (4) Abdominal pain (5) Crohns disease ICD Codes: K50.90 - Crohns disease SNOMED: 88395484 Status: unchanged Status Narrative Discussed with Dr. Gallegos. Assessment/Plan s/p EGD/colon 2016 non functional implanted morphine pump LLQ symptomatic treatment at this time electrolyte replacement low residual diet fu cdiff, stool culture Imodium prn, consider lomotil if diarrhea persists mesalamine for Crohns pain mgmt fu labs Subjective Subjective diarrhea abdominal pain chronic pain Objective Last 24 Hour Vital Signs Date Time Temp Pulse Resp B/P Pulse Ox O2 Delivery O2 Flow Rate FiO2 12/18/16 11:16 97.5 67 18 134/75 100 Nasal Cannula 2.0 12/18/16 07:42 96.8 73 18 120/67 98 Nasal Cannula 2.0 12/18/16 04:13 97.5 64 19 116/72 100 Nasal Cannula 2.0 12/18/16 04:00 66 12/18/16 00:00 67 12/17/16 23:47 99.5 72 20 115/60 98 Nasal Cannula 2.0 12/17/16 20:00 76 12/17/16 20:00 97.0 88 18 119/75 96 Room Air 12/17/16 16:00 97.0 80 20 112/60 100 Room Air 12/17/16 16:00 78 12/17/16 14:39 79 12/17/16 14:36 79 20 111/67 98 Nasal Cannula 2.0 12/17/16 14:36 99.3 79 20 111/67 98 Nasal Cannula 2.0 28 12/17/16 14:11 99.3 12/17/16 14:11 99.3 12/17/16 11:46 83 20 115/64 96 Nasal Cannula 2.0 Intake and Output 12/17/16 12/18/16 19:00 07:00 Intake Total 220.0 ml Balance 220.0 ml IV Total 220.0 ml # Voids 1 1 # Bowel Movements 1 Laboratory Tests Test 12/17/16 13:00 12/18/16 05:15 Urine Color Yellow Urine Appearance Slightly cloudy Urine pH 6 (4.5-8.0) Urine Specific [place] 1.020 (1.005-1.035) Urine Protein 1+ (NEGATIVE) H Urine Glucose (UA) Negative (NEGATIVE) Urine Ketones Negative (NEGATIVE) Urine Occult Blood 4+ (NEGATIVE) H Urine Nitrite Negative (NEGATIVE) Urine Bilirubin Negative (NEGATIVE) Urine Urobilinogen Normal MG/DL (0.0-1.0) Urine Leukocyte Esterase 2+ (NEGATIVE) H Urine RBC 5-10 /HPF (0 - 2) H Urine WBC 5-10 /HPF (0 - 2) H Urine Squamous Epithelial Cells Few /LPF (NONE/OCC) Urine Bacteria Few /HPF (NONE) White Blood Count 16.9 K/UL (4.8-10.8) H Red Blood Count 4.03 M/UL (4.20-5.40) L Hemoglobin 10.7 G/DL (12.0-16.0) L Hematocrit 34.3 % (37.0-47.0) L Mean Corpuscular Volume 85 FL (80-99) Mean Corpuscular Hemoglobin 26.6 PG (27.0-31.0) L Mean Corpuscular Hemoglobin Concent 31.2 G/DL (32.0-36.0) L Red Cell Distribution Width 16.0 % (11.6-14.8) H Platelet Count 437 K/UL (150-450) Mean Platelet Volume 6.2 FL (6.5-10.1) L Neutrophils (%) (Auto) % (45.0-75.0) Lymphocytes (%) (Auto) % (20.0-45.0) Monocytes (%) (Auto) % (1.0-10.0) Eosinophils (%) (Auto) % (0.0-3.0) Basophils (%) (Auto) % (0.0-2.0) Differential Total Cells Counted 100 Neutrophils % (Manual) 87 % (45-75) H Lymphocytes % (Manual) 11 % (20-45) L Monocytes % (Manual) 2 % (1-10) Eosinophils % (Manual) 0 % (0-3) Basophils % (Manual) 0 % (0-2) Band Neutrophils 0 % (0-8) Platelet Estimate Increased H Platelet Morphology Normal Hypochromasia 2+ Anisocytosis 1+ Sodium Level 137 mEQ/L (135-145) Potassium Level 4.0 mEQ/L (3.4-4.9) Chloride Level 100 mEQ/L (98-107) Carbon Dioxide Level 23 mEQ/L (20-30) Anion Gap 14 (5-15) Blood Urea Nitrogen 25 mg/dL (7-23) H Creatinine 0.8 mg/dL (0.5-0.9) Estimat Glomerular Filtration Rate > 60 mL/min (>60) Glucose Level 132 mg/dL (74-106) H Calcium Level 9.3 mg/dL (8.6-10.2) Height (Feet): 5 Height (Inches): 6.00 Weight (Pounds): 164 General Appearance: no apparent distress, alert Cardiovascular: normal rate Respiratory/Chest: lungs clear, normal breath sounds Abdominal Exam: normal bowel sounds, non tender, soft Extremities: normal range of motion Tara Scott N.P. December 18, 2016 11:22
[2016-12-18] MEDS ORDERED: Loperamide 2mg cap ORAL PRN ×2 (11:30→15:00)
--- NOTE | 2016-12-18 12:47 | Pulmonology Progress Note ---
Assessment/Plan Problems: (1) COPD exacerbation (2) Interstitial lung disease (3) Emphysema (4) Chronic abdominal pain (5) Crohn's disease Assessment/Plan improving respiratory treatment iv steroids and abx continue respiratory treatment GI evaluation check electrolytes. Subjective Interval Events: improving less cough Allergies: Coded Allergies: No Known Allergies (Verified , 05/21/06) Objective Last 24 Hour Vital Signs Date Time Temp Pulse Resp B/P Pulse Ox O2 Delivery O2 Flow Rate FiO2 12/18/16 11:16 97.5 67 18 134/75 100 Nasal Cannula 2.0 12/18/16 07:42 96.8 73 18 120/67 98 Nasal Cannula 2.0 12/18/16 04:13 97.5 64 19 116/72 100 Nasal Cannula 2.0 12/18/16 04:00 66 12/18/16 00:00 67 12/17/16 23:47 99.5 72 20 115/60 98 Nasal Cannula 2.0 12/17/16 20:00 76 12/17/16 20:00 97.0 88 18 119/75 96 Room Air 12/17/16 16:00 97.0 80 20 112/60 100 Room Air 12/17/16 16:00 78 12/17/16 14:39 79 12/17/16 14:36 79 20 111/67 98 Nasal Cannula 2.0 12/17/16 14:36 99.3 79 20 111/67 98 Nasal Cannula 2.0 28 12/17/16 14:11 99.3 12/17/16 14:11 99.3 Intake and Output 12/17/16 12/18/16 19:00 07:00 Intake Total 220.0 ml Balance 220.0 ml IV Total 220.0 ml # Voids 1 1 # Bowel Movements 1 General Appearance: WD/WN HEENT: normocephalic, PERRL Respiratory/Chest: chest wall non-tender, lungs clear Cardiovascular: normal peripheral pulses, normal rate Abdomen: normal bowel sounds, soft, non tender Extremities: no cyanosis 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 Lymphatic: no neck adenopathy Laboratory Tests 12/17/16 13:00: Urine Color Yellow, Urine Appearance Slightly cloudy, Urine pH 6, Urine Specific [place] 1.020, Urine Protein 1+H, Urine Glucose (UA) Negative, Urine Ketones Negative, Urine Occult Blood 4+H, Urine Nitrite Negative, Urine Bilirubin Negative, Urine Urobilinogen Normal, Urine Leukocyte Esterase 2+H, Urine RBC 5-10H, Urine WBC 5-10H, Urine Squamous Epithelial Cells Few, Urine Bacteria Few 12/18/16 05:15: White Blood Count 16.9H, Red Blood Count 4.03L, Hemoglobin 10.7L, Hematocrit 34.3L, Mean Corpuscular Volume 85, Mean Corpuscular Hemoglobin 26.6L, Mean Corpuscular Hemoglobin Concent 31.2L, Red Cell Distribution Width 16.0H, Platelet Count 437, Mean Platelet Volume 6.2L, Neutrophils (%) (Auto) , Lymphocytes (%) (Auto) , Monocytes (%) (Auto) , Eosinophils (%) (Auto) , Basophils (%) (Auto) , Differential Total Cells Counted 100, Neutrophils % ( Manual) 87H, Lymphocytes % (Manual) 11L, Monocytes % (Manual) 2, Eosinophils % ( Manual) 0, Basophils % (Manual) 0, Band Neutrophils 0, Platelet Estimate IncreasedH, Platelet Morphology Normal, Hypochromasia 2+, Anisocytosis 1+, Sodium Level 137, Potassium Level 4.0, Chloride Level 100, Carbon Dioxide Level 23, Anion Gap 14, Blood Urea Nitrogen 25H, Creatinine 0.8, Estimat Glomerular Filtration Rate > 60, Glucose Level 132H, Calcium Level 9.3 Current Medications Medications (Trade) Dose Ordered Sig/Vaibhav Route PRN Reason Start Time Stop Time Status Last Admin Dose Admin Albuterol/ Ipratropium (DuoNeb 0.5-3(2.5)mg/3ml) 3 ml Q4H PRN HHN dyspnea 12/17/16 12:00 12/22/16 11:59 Azithromycin (Zithromax) 250 mg Q24H ORAL 12/18/16 09:00 12/25/16 08:59 12/18/16 10:27 Bupropion HCl (Wellbutrin) 100 mg DAILY ORAL 12/18/16 09:00 01/17/17 08:59 12/18/16 10:27 Dextrose STAT PRN IV Hypoglycemia 12/17/16 12:00 01/16/17 11:59 Duloxetine HCl (Cymbalta) 60 mg DAILY ORAL 12/18/16 09:00 01/17/17 08:59 12/18/16 10:26 Heparin Sodium (Porcine) (Heparin 5000 units/ml) 5,000 units EVERY 12 HOURS SUBQ 12/17/16 21:00 01/16/17 20:59 12/18/16 10:29 Ketorolac Tromethamine (Toradol 30mg) 30 mg Q8H PRN IV moderate pain 4-6 12/17/16 12:00 12/22/16 11:59 Levetiracetam (Keppra) 1,500 mg TWICE A DAY ORAL 12/17/16 18:00 01/16/17 17:59 12/18/16 10:26 Loperamide HCl (Imodium) 2 mg Q4H PRN ORAL Diarrhea 12/18/16 11:30 01/17/17 11:29 Lorazepam (Ativan 2mg/ml 1ml) 0.5 mg Q4H PRN IV For Anxiety 12/17/16 12:00 12/24/16 11:59 Mesalamine (Asacol) 800 mg THREE TIMES A DAY ORAL 12/17/16 20:30 01/16/17 20:29 12/18/16 10:27 Methylprednisolone Sodium Succinate (Solu-MEDROL) 60 mg EVERY 6 HOURS IV 12/17/16 18:00 01/16/17 17:59 12/18/16 05:56 Mirtazapine (Remeron) 30 mg BEDTIME ORAL 12/17/16 21:00 01/16/17 20:59 12/17/16 21:00 Morphine Sulfate (Morphine Sulfate) 2 mg Q4H PRN IVP severe pain 7-10 12/17/16 12:00 12/24/16 11:59 12/18/16 11:14 Nitroglycerin (Ntg) 0.4 mg Q5M X 3 DOSES PRN SL Prn Chest Pain 12/17/16 12:00 01/16/17 11:59 Ondansetron HCl (Zofran) 4 mg Q6H PRN IVP Nausea & Vomiting 12/17/16 12:00 01/16/17 11:59 Piperacillin Sod/ Tazobactam Sod/ Dextrose (Zosyn/D5W) 110 ml @ 27.5 mls/hr Q8HR@0000,0800,1600 IVPB 12/17/16 16:00 12/24/16 15:59 12/18/16 10:26 Promethazine HCl/ Codeine (Phenergan with Codeine) 5 ml Q6H PRN ORAL cough 12/17/16 12:00 01/16/17 11:59 Quetiapine Fumarate (SEROquel) 100 mg BEDTIME ORAL 12/17/16 21:00 01/16/17 20:59 12/17/16 20:59 Temazepam (Restoril) 15 mg HSPRN PRN ORAL Insomnia 12/17/16 12:00 12/24/16 11:59 Theophylline (Erwin-Dur) 100 mg EVERY 12 HOURS ORAL 12/17/16 21:00 01/16/17 20:59 12/18/16 10:27 Trazodone HCl (Desyrel) 100 mg BEDTIME PRN ORAL Insomnia 12/17/16 21:00 01/16/17 20:59 DWAYNE SOOT December 18, 2016 12:47
[2016-12-18] MEDS ORDERED: NS 275ml ONE (14:00)
[2016-12-18] MEDS ORDERED: Tubing IV Secondary IV ONE (14:00)
--- NOTE | 2016-12-18 14:05 | General Progress Note ---
Assessment/Plan Problem List: (1) Pneumonia ICD Codes: J18.9 - Pneumonia, unspecified organism SNOMED: 183315183 (2) Chest pain ICD Codes: R07.9 - Chest pain, unspecified SNOMED: 90389899 (3) COPD (chronic obstructive pulmonary disease) ICD Codes: J44.9 - Chronic obstructive pulmonary disease, unspecified SNOMED: 47261146 (4) Sepsis ICD Codes: A41.9 - Sepsis, unspecified organism SNOMED: 24816157 Status: stable, progressing, tolerating diet Assessment/Plan ot pt diet o2 pulm tx abx cbc bmp am Subjective Constitutional: Reports: weakness Respiratory: Reports: shortness of breath Allergies: Coded Allergies: No Known Allergies (Verified , 05/21/06) All Systems: reviewed and negative except above Subjective o2nc weak sob Objective Last 24 Hour Vital Signs Date Time Temp Pulse Resp B/P Pulse Ox O2 Delivery O2 Flow Rate FiO2 12/18/16 12:00 74 12/18/16 11:16 97.5 67 18 134/75 100 Nasal Cannula 2.0 12/18/16 08:00 77 12/18/16 07:42 96.8 73 18 120/67 98 Nasal Cannula 2.0 12/18/16 04:13 97.5 64 19 116/72 100 Nasal Cannula 2.0 12/18/16 04:00 66 12/18/16 00:00 67 12/17/16 23:47 99.5 72 20 115/60 98 Nasal Cannula 2.0 12/17/16 20:00 76 12/17/16 20:00 97.0 88 18 119/75 96 Room Air 12/17/16 16:00 97.0 80 20 112/60 100 Room Air 12/17/16 16:00 78 12/17/16 14:39 79 12/17/16 14:36 79 20 111/67 98 Nasal Cannula 2.0 12/17/16 14:36 99.3 79 20 111/67 98 Nasal Cannula 2.0 28 12/17/16 14:11 99.3 12/17/16 14:11 99.3 Intake and Output 12/17/16 12/18/16 19:00 07:00 Intake Total 220.0 ml Balance 220.0 ml IV Total 220.0 ml # Voids 1 1 # Bowel Movements 1 Laboratory Tests 12/18/16 05:15: White Blood Count 16.9H, Red Blood Count 4.03L, Hemoglobin 10.7L, Hematocrit 34.3L, Mean Corpuscular Volume 85, Mean Corpuscular Hemoglobin 26.6L, Mean Corpuscular Hemoglobin Concent 31.2L, Red Cell Distribution Width 16.0H, Platelet Count 437, Mean Platelet Volume 6.2L, Neutrophils (%) (Auto) , Lymphocytes (%) (Auto) , Monocytes (%) (Auto) , Eosinophils (%) (Auto) , Basophils (%) (Auto) , Differential Total Cells Counted 100, Neutrophils % ( Manual) 87H, Lymphocytes % (Manual) 11L, Monocytes % (Manual) 2, Eosinophils % ( Manual) 0, Basophils % (Manual) 0, Band Neutrophils 0, Platelet Estimate IncreasedH, Platelet Morphology Normal, Hypochromasia 2+, Anisocytosis 1+, Sodium Level 137, Potassium Level 4.0, Chloride Level 100, Carbon Dioxide Level 23, Anion Gap 14, Blood Urea Nitrogen 25H, Creatinine 0.8, Estimat Glomerular Filtration Rate > 60, Glucose Level 132H, Calcium Level 9.3 Height (Feet): 5 Height (Inches): 6.00 Weight (Pounds): 164 General Appearance: alert EENT: normal ENT inspection Neck: normal alignment Cardiovascular: normal peripheral pulses, normal rate, regular rhythm Respiratory/Chest: chest wall non-tender, lungs clear, decreased breath sounds Abdomen: normal bowel sounds, non tender, soft Extremities: normal inspection Edema: no edema noted Arm (L), no edema noted Arm (R), no edema noted Leg (L), no edema noted Leg (R), no edema noted Pedal (L), no edema noted Pedal (R), no edema noted Generalized Neurologic: responsive, motor weakness Skin: normal pigmentation, warm/dry BAYRON BENEDICT December 18, 2016 14:05
[2016-12-18] MEDS ORDERED: DuoNeb 0.5-3(2.5)mg/3ml neb HHN PRN (15:00)
[2016-12-18] MEDS ORDERED: Promethazine/Codeine 5ml UD ORAL PRN (15:00)
[2016-12-18] MEDS ORDERED: LORazepam Inj 2mg/ml 1ml IV PRN (15:00)
[2016-12-18] MEDS ORDERED: Ketorolac 30mg Inj IV PRN (15:00)
[2016-12-18] MEDS ORDERED: Nitroglycerin Subl 0.4mg tab (Bottle Of 25) SL PRN (15:00)
--- NOTE | 2016-12-18 15:58 | Infectious Diseases Prog Note ---
Assessment/Plan Problems: (1) PNA (pneumonia) Assessment & Plan: continue Zosyn and azithromycin to cover atypical organisms , await sputum culture (2) Abdominal pain Assessment & Plan: due to crohn's disease , consult GI for further eval (3) Leukocytosis Assessment & Plan: due to steroids , recommend to taper , await blood culture and continue antibiotics (4) COPD exacerbation Assessment & Plan: started on large dose of steroids, recommend to taper, continue nebulizers (5) Crohns disease Assessment & Plan: consult GI for further eval Subjective Constitutional: Reports: no symptoms HEENT: Reports: no symptoms Respiratory: Reports: dry cough, shortness of breath Breasts: Reports: no symptoms Cardiovascular: Reports: no symptoms Gastrointestinal/Abdominal: Reports: no symptoms Genitourinary: Reports: no symptoms Neurologic: Reports: no symptoms Psychiatric: Reports: no symptoms Skin: Reports: no symptoms Allergies: Coded Allergies: No Known Allergies (Verified , 05/21/06) Objective Vital Signs Last 24 Hour Vital Signs Date Time Temp Pulse Resp B/P Pulse Ox O2 Delivery O2 Flow Rate FiO2 12/18/16 12:00 74 12/18/16 11:16 97.5 67 18 134/75 100 Nasal Cannula 2.0 12/18/16 08:00 77 12/18/16 07:42 96.8 73 18 120/67 98 Nasal Cannula 2.0 12/18/16 04:13 97.5 64 19 116/72 100 Nasal Cannula 2.0 12/18/16 04:00 66 12/18/16 00:00 67 12/17/16 23:47 99.5 72 20 115/60 98 Nasal Cannula 2.0 12/17/16 20:00 76 12/17/16 20:00 97.0 88 18 119/75 96 Room Air 12/17/16 16:00 97.0 80 20 112/60 100 Room Air 12/17/16 16:00 78 Height (Feet): 5 Height (Inches): 6.00 Weight (Pounds): 164 General Appearance: WD/WN, no acute distress HEENT: normocephalic, atraumatic, anicteric, mucous membranes moist, PERRL Respiratory/Chest: chest wall non-tender, lungs clear, normal breath sounds, no respiratory distress Cardiovascular: normal peripheral pulses, normal rate, regular rhythm, no gallop/murmur, no JVD Abdomen: normal bowel sounds, soft, non tender, no organomegaly, non distended , no mass, no scars Extremities: no cyanosis, no clubbing Skin: no rash, no lesions, no ulcers Laboratory Tests Test 12/18/16 05:15 White Blood Count 16.9 K/UL (4.8-10.8) H Red Blood Count 4.03 M/UL (4.20-5.40) L Hemoglobin 10.7 G/DL (12.0-16.0) L Hematocrit 34.3 % (37.0-47.0) L Mean Corpuscular Volume 85 FL (80-99) Mean Corpuscular Hemoglobin 26.6 PG (27.0-31.0) L Mean Corpuscular Hemoglobin Concent 31.2 G/DL (32.0-36.0) L Red Cell Distribution Width 16.0 % (11.6-14.8) H Platelet Count 437 K/UL (150-450) Mean Platelet Volume 6.2 FL (6.5-10.1) L Neutrophils (%) (Auto) % (45.0-75.0) Lymphocytes (%) (Auto) % (20.0-45.0) Monocytes (%) (Auto) % (1.0-10.0) Eosinophils (%) (Auto) % (0.0-3.0) Basophils (%) (Auto) % (0.0-2.0) Differential Total Cells Counted 100 Neutrophils % (Manual) 87 % (45-75) H Lymphocytes % (Manual) 11 % (20-45) L Monocytes % (Manual) 2 % (1-10) Eosinophils % (Manual) 0 % (0-3) Basophils % (Manual) 0 % (0-2) Band Neutrophils 0 % (0-8) Platelet Estimate Increased H Platelet Morphology Normal Hypochromasia 2+ Anisocytosis 1+ Sodium Level 137 mEQ/L (135-145) Potassium Level 4.0 mEQ/L (3.4-4.9) Chloride Level 100 mEQ/L (98-107) Carbon Dioxide Level 23 mEQ/L (20-30) Anion Gap 14 (5-15) Blood Urea Nitrogen 25 mg/dL (7-23) H Creatinine 0.8 mg/dL (0.5-0.9) Estimat Glomerular Filtration Rate > 60 mL/min (>60) Glucose Level 132 mg/dL (74-106) H Calcium Level 9.3 mg/dL (8.6-10.2) Current Medications Medications (Trade) Dose Ordered Sig/Vaibhav Route PRN Reason Start Time Stop Time Status Last Admin Dose Admin Albuterol/ Ipratropium (DuoNeb 0.5-3(2.5)mg/3ml) 3 ml Q4H PRN HHN dyspnea 12/18/16 15:00 12/23/16 14:59 Azithromycin (Zithromax) 250 mg Q24H ORAL 12/19/16 09:00 12/26/16 08:59 Bupropion HCl (Wellbutrin) 100 mg DAILY ORAL 12/19/16 09:00 01/18/17 08:59 Dextrose (Dextrose 50%) STAT PRN IV Hypoglycemia 12/19/16 12:00 01/18/17 11:59 Duloxetine HCl (Cymbalta) 60 mg DAILY ORAL 12/19/16 09:00 01/18/17 08:59 Heparin Sodium (Porcine) (Heparin 5000 units/ml) 5,000 units EVERY 12 HOURS SUBQ 12/18/16 21:00 01/17/17 20:59 Ketorolac Tromethamine (Toradol 30mg) 30 mg Q8H PRN IV Moderate Pain (Pain Scale 4-6) 12/18/16 15:00 12/23/16 14:59 Levetiracetam (Keppra) 1,500 mg Q12HR ORAL 12/18/16 21:00 01/17/17 20:59 Loperamide HCl (Imodium) 2 mg Q4H PRN ORAL Diarrhea 12/18/16 15:00 01/17/17 14:59 Lorazepam (Ativan 2mg/ml 1ml) 0.5 mg Q4H PRN IV For Anxiety 12/18/16 15:00 12/25/16 14:59 Mesalamine (Asacol) 800 mg THREE TIMES A DAY ORAL 12/18/16 18:00 01/17/17 17:59 Methylprednisolone Sodium Succinate (Solu-MEDROL) 60 mg EVERY 6 HOURS IV 12/18/16 18:00 01/17/17 17:59 Mirtazapine (Remeron) 30 mg BEDTIME ORAL 12/18/16 21:00 01/17/17 20:59 Morphine Sulfate (Morphine Sulfate) 2 mg Q4H PRN IVP Severe Pain (Pain Scale 7-10) 12/18/16 15:00 12/25/16 14:59 12/18/16 15:13 Nitroglycerin (Ntg) 0.4 mg Q5M X 3 DOSES PRN SL Prn Chest Pain 12/18/16 15:00 01/17/17 14:59 Ondansetron HCl (Zofran) 4 mg Q6H PRN IVP Nausea & Vomiting 12/18/16 15:00 01/17/17 14:59 Piperacillin Sod/ Tazobactam Sod/ Dextrose (Zosyn/D5W) 110 ml @ 27.5 mls/hr Q8HR@0000,0800,1600 IVPB 12/18/16 16:00 12/25/16 15:59 Promethazine HCl/ Codeine (Phenergan with Codeine) 5 ml Q6H PRN ORAL For Cough 12/18/16 15:00 01/17/17 14:59 Quetiapine Fumarate (SEROquel) 100 mg BEDTIME ORAL 12/18/16 21:00 01/17/17 20:59 Theophylline (Erwin-Dur) 100 mg EVERY 12 HOURS ORAL 12/18/16 21:00 01/17/17 20:59 Trazodone HCl (Desyrel) 100 mg HSPRN PRN ORAL Insomnia 12/18/16 21:00 01/17/17 20:59 Darrel Golden M.D. December 18, 2016 15:58
[2016-12-18] MEDS: Piperacillin/Tazobactam 3.375 GM in D5W 110 ML IVPB SCH ×2 (16:00→23:34)
[2016-12-18 16:16] VITALS: BP 116/77
--- NOTE | 2016-12-18 19:02 | Cardiology Report ---
APPROVED REPORT EKG Measurement Heart [id number] Normal sinus rhythm Possible Left atrial enlargement Borderline ECG
[2016-12-18 20:00] VITALS: BP_SYST 129; BP_SYST 131; BP_DIAS 79
[2016-12-18] MEDS: Aspirin Baby 81mg ORAL SCH (21:39)
[2016-12-18] MEDS: TraZODone 100mg tab ORAL PRN (21:55)
[2016-12-19] VITALS (7 sets, daily range): BP systolic 106–125; BP diastolic 56–76
[2016-12-19] MEDS: Morphine Sulfate 2mg/ml Inj IVP PRN ×5 (02:06→20:21)
--- NOTE | 2016-12-19 02:32 | Consultation ---
DATE OF CONSULTATION: 12/18/2016 CARDIOLOGY CONSULTATION CONSULTING PHYSICIAN: Pk Roche M.D. REFERRING PHYSICIAN: Barber Dial D.O. REASON FOR CONSULTATION: For management of shortness of breath from cardiac standpoint. HISTORY OF PRESENT ILLNESS: The patient is a very pleasant 65-year-old female, who presents to the hospital with complaints of shortness of breath and chest pain for just about two days. At this time, the chest pain is felt as tightness. She also has a productive cough with greenish phlegm. In the emergency department, chest x-ray showed bilateral interstitial disease, which was consistent with pneumonia. The patient was started on IV antibiotic therapy and was admitted to the Med/Surg unit for continuation of therapy. The patient is seen in Cardiology consultation for evaluation and management of dyspnea from cardiac standpoint. On arrival to the emergency department, initial blood pressure was 134/79, pulse of 97, and she had low-grade fever. The patient's risk factors for coronary artery disease includes history of vascular event in 2004. The patient admits to getting shortness of breath with two blocks walking. Her blood pressure also remains to be in the low side most of the time. She carries a narcotic pump for her disabling lower back pain. PAST MEDICAL HISTORY: Asthma, chronic obstructive pulmonary disease, CVA/TIA, history of seizure disorder, history of gastroesophageal reflux disease, history of neuropathy, history of vertigo, and history of syncope. PAST SURGICAL HISTORY: None. ALLERGIES: No known drug allergies. HABITS: Denies any tobacco, alcohol, or illicit drug use. REVIEW OF SYSTEMS: HEENT: Denies any headache, diplopia, or blurred vision. Constitutional: Had fever, chills, and generalized weakness. Cardiovascular: Complains of chest pain with shortness of breath. She also has dyspnea on exertion. Denies any PND, orthopnea, leg swelling, syncope, or palpitation. Pulmonary: Has productive cough of greenish sputum. Also, complains of a wheezing, but no hemoptysis. Gastrointestinal: Denies any nausea, vomiting, diarrhea, constipation, abdominal pain, or GI bleed. Genitourinary: Denies any hematuria, dysuria, or incontinence. Neurology: She has a history of stroke in the past. No significant motor deficit. Denies any altered speech. PHYSICAL EXAMINATION: VITAL SIGNS: Blood pressure is 134/79, respirations of 20, O2 saturation of 100% on room air, pulse of 97, and temperature 99.2 degrees Fahrenheit. GENERAL: The patient is a very pleasant [id number] female, in no apparent respiratory distress. Alert and oriented x4. HEENT: Atraumatic and normocephalic. Anicteric. Pupils are equal, round, and reactive to light and accommodation. Extraocular muscles intact. NECK: JVP is less than 5 cm. No carotid bruits. Carotid upstrokes 2+ bilaterally. CVS: Normal S1 and S2. Regular rate and rhythm. A 2/6 mid systolic murmur in the left sternal border. PMI is at fourth intercostal space at the midclavicular line. LUNGS: Bilateral rhonchi with a prolonged expiratory phase. ABDOMEN: Distended. No hepatosplenomegaly. Soft. Positive bowel sounds. EXTREMITIES: No evidence of edema, clubbing, or cyanosis. LABORATORY FINDINGS: WBC 15.5, hemoglobin 11.7, hematocrit 38.7, and platelet count is 454,000. Sodium is 139, potassium is 3.7, chloride 103, bicarbonate 23, BUN of 23, creatinine 0.9, glucose is 90, and calcium is 9.2. Troponin I is less than 0.3. ProBNP is 49. Chest x-ray shows bilateral interstitial infiltration. A 12-lead electrocardiogram, sinus rhythm at a rate of 91. Normal axis. No acute ischemic features. ASSESSMENT AND PLAN: The patient is a very pleasant 65-year-old female seen in Cardiology consultation at the request of Dr. Dial. 1. Dyspnea. This is most likely pulmonary in origin. I suspect pneumonia given the history and also chest x-ray findings that is unlikely heart failure to be present at this time and no heart failure features on physical examination. Normal beta-natriuretic peptide level. Also congestive heart failure. 2. A history of cerebrovascular accident. I would strongly recommend aspirin therapy in this patient as well as statin. We will add both medication to the regimen. I would like to thank, Dr. Dial, for allowing me to participate in the care of this patient. Pk Roche M.D. DR: NICHELLE JOB#: [id number] CC:
[2016-12-19] MEDS: Solu-MEDROL 125mg Inj IV SCH ×2 (05:33→12:00)
--- NOTE | 2016-12-19 07:40 | General Progress Note ---
Assessment/Plan Problem List: (1) Pneumonia ICD Codes: J18.9 - Pneumonia, unspecified organism SNOMED: 465521641 (2) Chest pain ICD Codes: R07.9 - Chest pain, unspecified SNOMED: 97841540 (3) COPD (chronic obstructive pulmonary disease) ICD Codes: J44.9 - Chronic obstructive pulmonary disease, unspecified SNOMED: 90880708 (4) Sepsis ICD Codes: A41.9 - Sepsis, unspecified organism SNOMED: 31528253 Status: stable, progressing, tolerating diet Assessment/Plan ot pt diet o2 pulm tx abx cbc bmp am Subjective Constitutional: Reports: weakness Allergies: Coded Allergies: No Known Allergies (Verified , 05/21/06) All Systems: reviewed and negative except above Subjective sleepy calm Objective Last 24 Hour Vital Signs Date Time Temp Pulse Resp B/P Pulse Ox O2 Delivery O2 Flow Rate FiO2 12/19/16 04:00 98.1 67 18 106/66 100 Nasal Cannula 2.0 12/19/16 00:00 98.1 72 20 125/76 99 Nasal Cannula 2.0 12/18/16 20:00 98.6 74 18 129/79 100 Nasal Cannula 2.0 12/18/16 16:16 97.6 85 20 116/77 99 Nasal Cannula 2.0 12/18/16 12:00 74 12/18/16 11:16 97.5 67 18 134/75 100 Nasal Cannula 2.0 12/18/16 08:00 77 12/18/16 07:42 96.8 73 18 120/67 98 Nasal Cannula 2.0 Intake and Output 12/18/16 12/19/16 19:00 07:00 Intake Total 1090.0 ml 360.0 ml Balance 1090.0 ml 360.0 ml Intake Oral 980 ml 250 ml IV Total 110.0 ml 110.0 ml # Voids 2 2 Laboratory Tests 12/19/16 05:57: White Blood Count [Pending], Red Blood Count [Pending], Hemoglobin [Pending], Hematocrit [Pending], Mean Corpuscular Volume [Pending], Mean Corpuscular Hemoglobin [Pending], Mean Corpuscular Hemoglobin Concent [Pending], Red Cell Distribution Width [Pending], Platelet Count [Pending], Mean Platelet Volume [ Pending], Neutrophils (%) (Auto) [Pending], Lymphocytes (%) (Auto) [Pending], Monocytes (%) (Auto) [Pending], Eosinophils (%) (Auto) [Pending], Basophils (%) (Auto) [Pending], Sodium Level [Pending], Potassium Level [Pending], Chloride Level [Pending], Carbon Dioxide Level [Pending], Blood Urea Nitrogen [Pending], Creatinine [Pending], Estimat Glomerular Filtration Rate [Pending], Glucose Level [Pending], Calcium Level [Pending], Phosphorus Level [Pending], Magnesium Level [Pending], Triglycerides Level [Pending], Cholesterol Level [Pending], LDL Cholesterol [Pending], HDL Cholesterol [Pending], Cholesterol/HDL Ratio [ Pending] Height (Feet): 5 Height (Inches): 6.00 Weight (Pounds): 164 General Appearance: lethargic EENT: normal ENT inspection Neck: normal alignment Cardiovascular: normal peripheral pulses, normal rate, regular rhythm Respiratory/Chest: chest wall non-tender, lungs clear, normal breath sounds Abdomen: normal bowel sounds, non tender, soft Extremities: normal inspection Edema: no edema noted Arm (L), no edema noted Arm (R), no edema noted Leg (L), no edema noted Leg (R), no edema noted Pedal (L), no edema noted Pedal (R), no edema noted Generalized Neurologic: responsive, motor weakness Skin: normal pigmentation, warm/dry BAYRON BENEDICT December 19, 2016 07:40
[2016-12-19 07:44] LABS: MEAN CORPUSCULAR HEMOGLOBIN 26.7 PG (27.0-31.0); MEAN CORPUSCULAR HGB CONC 31.4 G/DL (32.0-36.0); MEAN CORPUSCULAR VOLUME 85 FL (80-99); MEAN PLATELET VOLUME 5.9 FL (6.5-10.1); PLATELET COUNT 396 K/UL (150-450); RED BLOOD COUNT 4.06 M/UL (4.20-5.40); RED CELL DISTRIBUTION WIDTH 16.1 % (11.6-14.8); WHITE BLOOD COUNT 17.5 K/UL (4.8-10.8)
[2016-12-19 08:02] LABS: ANION GAP 12 (5-15); CALCIUM 9.3 mg/dL (8.6-10.2); CARBON DIOXIDE 23 mEQ/L (20-30); CHLORIDE 102 mEQ/L (98-107); CHOLESTEROL 156 mg/dL (< 200); CHOLESTEROL/HDL RATIO 3.2 (3.3-4.4); CREATININE 0.9 mg/dL (0.5-0.9); GLOMERULAR FILTRATION RATE > 60 mL/min (>60); HEMOLYSIS 2; LDL CHOLESTEROL (CALC.) 99 mg/dL (60-99); PHOSPHORUS 3.3 mg/dL (2.5-4.8); POTASSIUM 3.9 mEQ/L (3.4-4.9); SODIUM 137 mEQ/L (135-145)
[2016-12-19] MEDS: Heparin 5000 units/ml inj SUBQ SCH ×2 (08:24→20:28)
[2016-12-19] MEDS: Theophylline ER 100mg ORAL SCH ×2 (08:25→20:24)
[2016-12-19] MEDS: Aspirin Baby 81mg ORAL SCH (08:25)
[2016-12-19] MEDS: DULoxetine 30mg cap ORAL SCH (08:26)
[2016-12-19] MEDS: Piperacillin/Tazobactam 3.375 GM in D5W 110 ML IVPB SCH ×2 (08:27→16:14)
[2016-12-19] MEDS: Azithromycin 250mg tab ORAL SCH (08:38)
[2016-12-19 09:57] LABS: ANISOCYTOSIS 1+; BAND NEUTROPHILS % (MANUAL) 0 % (0-8); BASOPHILS % (MANUAL) 0 % (0-2); EOSINOPHILS % (MANUAL) 0 % (0-3); HYPOCHROMASIA 1+; LYMPHOCYTES % (MANUAL) 6 % (20-45); NEUTROPHILS % (MANUAL) 92 % (45-75); PLATELET ESTIMATE ADEQUATE; PLATELET MORPHOLOGY NORMAL; TOTAL CELLS COUNTED 100
--- NOTE | 2016-12-19 12:21 | Pulmonology Progress Note ---
Assessment/Plan Problems: (1) COPD exacerbation (2) Interstitial lung disease (3) Emphysema (4) Chronic abdominal pain (5) Crohn's disease Assessment/Plan improving respiratory treatment iv steroids and abx continue respiratory treatment taper steroids no sputum yet BC are negative check electrolytes. Subjective ROS Limited/Unobtainable: No Constitutional: Reports: no symptoms HEENT: Repors: no symptoms Respiratory: Reports: no symptoms Allergies: Coded Allergies: No Known Allergies (Verified , 05/21/06) Objective Last 24 Hour Vital Signs Date Time Temp Pulse Resp B/P Pulse Ox O2 Delivery O2 Flow Rate FiO2 12/19/16 08:40 98.1 64 16 119/69 100 Room Air 12/19/16 04:00 98.1 67 18 106/66 100 Nasal Cannula 2.0 12/19/16 00:00 98.1 72 20 125/76 99 Nasal Cannula 2.0 12/18/16 20:00 98.6 74 18 129/79 100 Nasal Cannula 2.0 12/18/16 16:16 97.6 85 20 116/77 99 Nasal Cannula 2.0 Intake and Output 12/18/16 12/19/16 19:00 07:00 Intake Total 1090.0 ml 360.0 ml Balance 1090.0 ml 360.0 ml Intake Oral 980 ml 250 ml IV Total 110.0 ml 110.0 ml # Voids 2 2 General Appearance: WD/WN HEENT: normocephalic, anicteric Respiratory/Chest: chest wall non-tender, normal breath sounds Breasts: no masses Cardiovascular: normal peripheral pulses Abdomen: normal bowel sounds, soft, non tender, no organomegaly Extremities: no cyanosis Microbiology Date/Time Source Procedure Growth Status 12/17/16 10:30 Blood Blood Culture - Preliminary NO GROWTH AFTER 48 HOURS Resulted 12/17/16 10:20 Blood Blood Culture - Preliminary NO GROWTH AFTER 48 HOURS Resulted Laboratory Tests 12/19/16 05:57: White Blood Count 17.5H, Red Blood Count 4.06L, Hemoglobin 10.9L, Hematocrit 34.6L, Mean Corpuscular Volume 85, Mean Corpuscular Hemoglobin 26.7L, Mean Corpuscular Hemoglobin Concent 31.4L, Red Cell Distribution Width 16.1H, Platelet Count 396, Mean Platelet Volume 5.9L, Neutrophils (%) (Auto) , Lymphocytes (%) (Auto) , Monocytes (%) (Auto) , Eosinophils (%) (Auto) , Basophils (%) (Auto) , Differential Total Cells Counted 100, Neutrophils % ( Manual) 92H, Lymphocytes % (Manual) 6L, Monocytes % (Manual) 2, Eosinophils % ( Manual) 0, Basophils % (Manual) 0, Band Neutrophils 0, Platelet Estimate Adequate, Platelet Morphology Normal, Hypochromasia 1+, Anisocytosis 1+, Sodium Level 137, Potassium Level 3.9, Chloride Level 102, Carbon Dioxide Level 23, Anion Gap 12, Blood Urea Nitrogen 28H, Creatinine 0.9, Estimat Glomerular Filtration Rate > 60, Glucose Level 125H, Calcium Level 9.3, Phosphorus Level 3.3, Magnesium Level 2.0, Triglycerides Level 39, Cholesterol Level 156, LDL Cholesterol 99, HDL Cholesterol 49, Cholesterol/HDL Ratio 3.2L Current Medications Medications (Trade) Dose Ordered Sig/Vaibhav Route PRN Reason Start Time Stop Time Status Last Admin Dose Admin Albuterol/ Ipratropium (DuoNeb 0.5-3(2.5)mg/3ml) 3 ml Q4H PRN HHN dyspnea 12/18/16 15:00 12/23/16 14:59 Aspirin (ASA) 81 mg DAILY ORAL 12/18/16 21:00 01/17/17 20:59 12/19/16 08:25 Atorvastatin Calcium (Lipitor) 40 mg BEDTIME ORAL 12/18/16 21:00 01/17/17 20:59 12/18/16 21:38 Azithromycin (Zithromax) 250 mg Q24H ORAL 12/19/16 09:00 12/26/16 08:59 12/19/16 08:38 Bupropion HCl (Wellbutrin) 100 mg DAILY ORAL 12/19/16 09:00 01/18/17 08:59 12/19/16 08:25 Dextrose (Dextrose 50%) STAT PRN IV Hypoglycemia 12/19/16 12:00 01/18/17 11:59 Duloxetine HCl (Cymbalta) 60 mg DAILY ORAL 12/19/16 09:00 01/18/17 08:59 12/19/16 08:26 Heparin Sodium (Porcine) (Heparin 5000 units/ml) 5,000 units EVERY 12 HOURS SUBQ 12/18/16 21:00 01/17/17 20:59 12/19/16 08:24 Ketorolac Tromethamine (Toradol 30mg) 30 mg Q8H PRN IV Moderate Pain (Pain Scale 4-6) 12/18/16 15:00 12/23/16 14:59 Levetiracetam (Keppra) 1,500 mg Q12HR ORAL 12/18/16 21:00 01/17/17 20:59 12/19/16 08:25 Loperamide HCl (Imodium) 2 mg Q4H PRN ORAL Diarrhea 12/18/16 15:00 01/17/17 14:59 Lorazepam (Ativan 2mg/ml 1ml) 0.5 mg Q4H PRN IV For Anxiety 12/18/16 15:00 12/25/16 14:59 Mesalamine (Asacol) 800 mg THREE TIMES A DAY ORAL 12/18/16 18:00 01/17/17 17:59 12/19/16 08:26 Methylprednisolone Sodium Succinate (Solu-MEDROL) 60 mg EVERY 6 HOURS IV 12/18/16 18:00 01/17/17 17:59 12/19/16 05:33 Mirtazapine (Remeron) 30 mg BEDTIME ORAL 12/18/16 21:00 01/17/17 20:59 12/18/16 21:38 Morphine Sulfate (Morphine Sulfate) 2 mg Q4H PRN IVP Severe Pain (Pain Scale 7-10) 12/18/16 15:00 12/25/16 14:59 12/19/16 08:24 Nitroglycerin (Ntg) 0.4 mg Q5M X 3 DOSES PRN SL Prn Chest Pain 12/18/16 15:00 01/17/17 14:59 Ondansetron HCl (Zofran) 4 mg Q6H PRN IVP Nausea & Vomiting 12/18/16 15:00 01/17/17 14:59 Piperacillin Sod/ Tazobactam Sod/ Dextrose (Zosyn/D5W) 110 ml @ 27.5 mls/hr Q8HR@0000,0800,1600 IVPB 12/18/16 16:00 12/25/16 15:59 12/19/16 08:27 Promethazine HCl/ Codeine (Phenergan with Codeine) 5 ml Q6H PRN ORAL For Cough 12/18/16 15:00 01/17/17 14:59 Quetiapine Fumarate (SEROquel) 100 mg BEDTIME ORAL 12/18/16 21:00 01/17/17 20:59 12/18/16 21:37 Theophylline (Erwin-Dur) 100 mg EVERY 12 HOURS ORAL 12/18/16 21:00 01/17/17 20:59 12/19/16 08:25 Trazodone HCl (Desyrel) 100 mg HSPRN PRN ORAL Insomnia 12/18/16 21:00 01/17/17 20:59 12/18/16 21:55 DWAYNE SOTO December 19, 2016 12:21
--- NOTE | 2016-12-19 14:21 | Infectious Diseases Prog Note ---
Assessment/Plan Problems: (1) PNA (pneumonia) Assessment & Plan: continue Zosyn and azithromycin to cover atypical organisms , await sputum culture (2) Abdominal pain Assessment & Plan: due to crohn's disease , consult GI for further eval (3) Leukocytosis Assessment & Plan: due to steroids , recommend to taper , await blood culture and continue antibiotics (4) COPD exacerbation Assessment & Plan: on large dose of steroids, recommend to taper, continue nebulizers (5) Crohns disease Assessment & Plan: consult GI for further eval Subjective Constitutional: Reports: anorexia HEENT: Reports: no symptoms Respiratory: Reports: dry cough Breasts: Reports: no symptoms Cardiovascular: Reports: no symptoms Gastrointestinal/Abdominal: Reports: no symptoms Genitourinary: Reports: no symptoms Neurologic: Reports: no symptoms Psychiatric: Reports: no symptoms Skin: Reports: no symptoms Endocrine: Reports: no symptoms Hematologic: Reports: no symptoms Musculoskeletal: Reports: no symptoms Allergies: Coded Allergies: No Known Allergies (Verified , 05/21/06) Objective Vital Signs Last 24 Hour Vital Signs Date Time Temp Pulse Resp B/P Pulse Ox O2 Delivery O2 Flow Rate FiO2 12/19/16 12:00 97.0 63 16 118/68 Room Air 12/19/16 08:40 98.1 64 16 119/69 100 Room Air 12/19/16 04:00 98.1 67 18 106/66 100 Nasal Cannula 2.0 12/19/16 00:00 98.1 72 20 125/76 99 Nasal Cannula 2.0 12/18/16 20:00 98.6 74 18 129/79 100 Nasal Cannula 2.0 12/18/16 16:16 97.6 85 20 116/77 99 Nasal Cannula 2.0 Height (Feet): 5 Height (Inches): 6.00 Weight (Pounds): 164 General Appearance: WD/WN, no acute distress HEENT: normocephalic, atraumatic, anicteric, mucous membranes moist Respiratory/Chest: chest wall non-tender, normal breath sounds, no respiratory distress, no accessory muscle use, decreased breath sounds, crackles/rales Cardiovascular: normal peripheral pulses, normal rate, regular rhythm, no gallop/murmur Abdomen: normal bowel sounds, soft, non tender, no organomegaly, non distended , no mass Extremities: no cyanosis, no clubbing Skin: no rash, no lesions Microbiology Date/Time Source Procedure Growth Status 12/17/16 10:30 Blood Blood Culture - Preliminary NO GROWTH AFTER 48 HOURS Resulted 12/17/16 10:20 Blood Blood Culture - Preliminary NO GROWTH AFTER 48 HOURS Resulted Laboratory Tests Test 12/19/16 05:57 White Blood Count 17.5 K/UL (4.8-10.8) H Red Blood Count 4.06 M/UL (4.20-5.40) L Hemoglobin 10.9 G/DL (12.0-16.0) L Hematocrit 34.6 % (37.0-47.0) L Mean Corpuscular Volume 85 FL (80-99) Mean Corpuscular Hemoglobin 26.7 PG (27.0-31.0) L Mean Corpuscular Hemoglobin Concent 31.4 G/DL (32.0-36.0) L Red Cell Distribution Width 16.1 % (11.6-14.8) H Platelet Count 396 K/UL (150-450) Mean Platelet Volume 5.9 FL (6.5-10.1) L Neutrophils (%) (Auto) % (45.0-75.0) Lymphocytes (%) (Auto) % (20.0-45.0) Monocytes (%) (Auto) % (1.0-10.0) Eosinophils (%) (Auto) % (0.0-3.0) Basophils (%) (Auto) % (0.0-2.0) Differential Total Cells Counted 100 Neutrophils % (Manual) 92 % (45-75) H Lymphocytes % (Manual) 6 % (20-45) L Monocytes % (Manual) 2 % (1-10) Eosinophils % (Manual) 0 % (0-3) Basophils % (Manual) 0 % (0-2) Band Neutrophils 0 % (0-8) Platelet Estimate Adequate Platelet Morphology Normal Hypochromasia 1+ Anisocytosis 1+ Sodium Level 137 mEQ/L (135-145) Potassium Level 3.9 mEQ/L (3.4-4.9) Chloride Level 102 mEQ/L (98-107) Carbon Dioxide Level 23 mEQ/L (20-30) Anion Gap 12 (5-15) Blood Urea Nitrogen 28 mg/dL (7-23) H Creatinine 0.9 mg/dL (0.5-0.9) Estimat Glomerular Filtration Rate > 60 mL/min (>60) Glucose Level 125 mg/dL (74-106) H Calcium Level 9.3 mg/dL (8.6-10.2) Phosphorus Level 3.3 mg/dL (2.5-4.8) Magnesium Level 2.0 mg/dL (1.7-2.5) Triglycerides Level 39 mg/dL (< 150) Cholesterol Level 156 mg/dL (< 200) LDL Cholesterol 99 mg/dL (60-99) HDL Cholesterol 49 mg/dL (> 60) Cholesterol/HDL Ratio 3.2 (3.3-4.4) L Current Medications Medications (Trade) Dose Ordered Sig/Vaibhav Route PRN Reason Start Time Stop Time Status Last Admin Dose Admin Albuterol/ Ipratropium (DuoNeb 0.5-3(2.5)mg/3ml) 3 ml Q4H PRN HHN dyspnea 12/18/16 15:00 12/23/16 14:59 Aspirin (ASA) 81 mg DAILY ORAL 12/18/16 21:00 01/17/17 20:59 12/19/16 08:25 Atorvastatin Calcium (Lipitor) 40 mg BEDTIME ORAL 12/18/16 21:00 01/17/17 20:59 12/18/16 21:38 Azithromycin (Zithromax) 250 mg Q24H ORAL 12/19/16 09:00 12/26/16 08:59 12/19/16 08:38 Bupropion HCl (Wellbutrin) 100 mg DAILY ORAL 12/19/16 09:00 01/18/17 08:59 12/19/16 08:25 Dextrose (Dextrose 50%) STAT PRN IV Hypoglycemia 12/19/16 12:00 01/18/17 11:59 Duloxetine HCl (Cymbalta) 60 mg DAILY ORAL 12/19/16 09:00 01/18/17 08:59 12/19/16 08:26 Heparin Sodium (Porcine) (Heparin 5000 units/ml) 5,000 units EVERY 12 HOURS SUBQ 12/18/16 21:00 01/17/17 20:59 12/19/16 08:24 Ketorolac Tromethamine (Toradol 30mg) 30 mg Q8H PRN IV Moderate Pain (Pain Scale 4-6) 12/18/16 15:00 12/23/16 14:59 Levetiracetam (Keppra) 1,500 mg Q12HR ORAL 12/18/16 21:00 01/17/17 20:59 12/19/16 08:25 Loperamide HCl (Imodium) 2 mg Q4H PRN ORAL Diarrhea 12/18/16 15:00 01/17/17 14:59 Lorazepam (Ativan 2mg/ml 1ml) 0.5 mg Q4H PRN IV For Anxiety 12/18/16 15:00 12/25/16 14:59 Mesalamine (Asacol) 800 mg THREE TIMES A DAY ORAL 12/18/16 18:00 01/17/17 17:59 12/19/16 13:02 Methylprednisolone Sodium Succinate (Solu-MEDROL) 60 mg DAILY IV 12/20/16 09:00 01/19/17 08:59 Mirtazapine (Remeron) 30 mg BEDTIME ORAL 12/18/16 21:00 01/17/17 20:59 12/18/16 21:38 Morphine Sulfate (Morphine Sulfate) 2 mg Q4H PRN IVP Severe Pain (Pain Scale 7-10) 12/18/16 15:00 12/25/16 14:59 12/19/16 13:02 Nitroglycerin (Ntg) 0.4 mg Q5M X 3 DOSES PRN SL Prn Chest Pain 12/18/16 15:00 01/17/17 14:59 Ondansetron HCl (Zofran) 4 mg Q6H PRN IVP Nausea & Vomiting 12/18/16 15:00 01/17/17 14:59 Piperacillin Sod/ Tazobactam Sod/ Dextrose (Zosyn/D5W) 110 ml @ 27.5 mls/hr Q8HR@0000,0800,1600 IVPB 12/18/16 16:00 12/25/16 15:59 12/19/16 08:27 Promethazine HCl/ Codeine (Phenergan with Codeine) 5 ml Q6H PRN ORAL For Cough 12/18/16 15:00 01/17/17 14:59 Quetiapine Fumarate (SEROquel) 100 mg BEDTIME ORAL 12/18/16 21:00 01/17/17 20:59 5/26/17 21:37 Theophylline (Erwin-Dur) 100 mg EVERY 12 HOURS ORAL 12/18/16 21:00 01/17/17 20:59 12/19/16 08:25 Trazodone HCl (Desyrel) 100 mg HSPRN PRN ORAL Insomnia 12/18/16 21:00 01/17/17 20:59 12/18/16 21:55 Darrel Golden M.D. December 19, 2016 14:21
--- NOTE | 2016-12-19 18:41 | Cardiology Progress Note ---
Assessment/Plan Assessment/Plan 1. Dyspnea, due to acute exacerbation of COPD given lung exam findings, steroid , ABx therapy, pulmonary toilet, O2 therapy. 2. A history of cerebrovascular accident, continue ASA and statin. Subjective Subjective Feeling less SOB, denies chest pain. Objective Last 24 Hour Vital Signs Date Time Temp Pulse Resp B/P Pulse Ox O2 Delivery O2 Flow Rate FiO2 12/19/16 16:53 98.1 79 14 110/56 100 Nasal Cannula 12/19/16 12:00 97.0 63 16 118/68 Room Air 12/19/16 08:40 98.1 64 16 119/69 100 Room Air 12/19/16 04:00 98.1 67 18 106/66 100 Nasal Cannula 2.0 12/19/16 00:00 98.1 72 20 125/76 99 Nasal Cannula 2.0 12/18/16 20:00 98.6 74 18 129/79 100 Nasal Cannula 2.0 Intake and Output 12/18/16 12/19/16 19:00 07:00 Intake Total 1090.0 ml 360.0 ml Balance 1090.0 ml 360.0 ml Intake Oral 980 ml 250 ml IV Total 110.0 ml 110.0 ml # Voids 2 2 Laboratory Tests Test 12/19/16 05:57 White Blood Count 17.5 K/UL (4.8-10.8) H Red Blood Count 4.06 M/UL (4.20-5.40) L Hemoglobin 10.9 G/DL (12.0-16.0) L Hematocrit 34.6 % (37.0-47.0) L Mean Corpuscular Volume 85 FL (80-99) Mean Corpuscular Hemoglobin 26.7 PG (27.0-31.0) L Mean Corpuscular Hemoglobin Concent 31.4 G/DL (32.0-36.0) L Red Cell Distribution Width 16.1 % (11.6-14.8) H Platelet Count 396 K/UL (150-450) Mean Platelet Volume 5.9 FL (6.5-10.1) L Neutrophils (%) (Auto) % (45.0-75.0) Lymphocytes (%) (Auto) % (20.0-45.0) Monocytes (%) (Auto) % (1.0-10.0) Eosinophils (%) (Auto) % (0.0-3.0) Basophils (%) (Auto) % (0.0-2.0) Differential Total Cells Counted 100 Neutrophils % (Manual) 92 % (45-75) H Lymphocytes % (Manual) 6 % (20-45) L Monocytes % (Manual) 2 % (1-10) Eosinophils % (Manual) 0 % (0-3) Basophils % (Manual) 0 % (0-2) Band Neutrophils 0 % (0-8) Platelet Estimate Adequate Platelet Morphology Normal Hypochromasia 1+ Anisocytosis 1+ Sodium Level 137 mEQ/L (135-145) Potassium Level 3.9 mEQ/L (3.4-4.9) Chloride Level 102 mEQ/L (98-107) Carbon Dioxide Level 23 mEQ/L (20-30) Anion Gap 12 (5-15) Blood Urea Nitrogen 28 mg/dL (7-23) H Creatinine 0.9 mg/dL (0.5-0.9) Estimat Glomerular Filtration Rate > 60 mL/min (>60) Glucose Level 125 mg/dL (74-106) H Calcium Level 9.3 mg/dL (8.6-10.2) Phosphorus Level 3.3 mg/dL (2.5-4.8) Magnesium Level 2.0 mg/dL (1.7-2.5) Triglycerides Level 39 mg/dL (< 150) Cholesterol Level 156 mg/dL (< 200) LDL Cholesterol 99 mg/dL (60-99) HDL Cholesterol 49 mg/dL (> 60) Cholesterol/HDL Ratio 3.2 (3.3-4.4) L Microbiology Date/Time Source Procedure Growth Status 12/17/16 10:30 Blood Blood Culture - Preliminary NO GROWTH AFTER 48 HOURS Resulted 12/17/16 10:20 Blood Blood Culture - Preliminary NO GROWTH AFTER 48 HOURS Resulted Objective HEENT: Atraumatic and normocephalic. Anicteric. Pupils are equal, round, and reactive to light and accommodation. Extraocular muscles intact. NECK: JVP is less than 5 cm. No carotid bruits. Carotid upstrokes 2+ bilaterally. CVS: Normal S1 and S2. Regular rate and rhythm. A 2/6 mid systolic murmur in the left sternal border. PMI is at fourth intercostal space at the midclavicular line. LUNGS: Bilateral rhonchi with a prolonged expiratory phase. ABDOMEN: Distended. No hepatosplenomegaly. Soft. Positive bowel sounds. EXTREMITIES: No evidence of edema, clubbing, or cyanosis. DEX ARMANDO December 19, 2016 18:41
--- NOTE | 2016-12-19 22:14 | General Progress Note ---
Assessment/Plan Assessment/Plan Assessment (1) Nausea and vomiting (2) IBD (inflammatory bowel disease) - Crohn's (3) Diarrhea (4) Abdominal pain (5) Crohns disease - s/p EGD/colon 2016 - non functional implanted morphine pump LLQ Recommendations symptomatic treatment at this time electrolyte replacement low residual diet f/u cdiff, stool culture Imodium prn, consider lomotil if diarrhea persists fu labs check Quantiferon TB gold in anticipation of anti TNF Rx Subjective Allergies: Coded Allergies: No Known Allergies (Verified , 05/21/06) Subjective Feels OK ate solids no BM some abd pain, eleazar RLQ on steroids Objective Last 24 Hour Vital Signs Date Time Temp Pulse Resp B/P Pulse Ox O2 Delivery O2 Flow Rate FiO2 12/19/16 20:00 98.8 85 20 118/66 96 Room Air 12/19/16 16:53 98.1 79 14 110/56 100 Nasal Cannula 12/19/16 12:00 97.0 63 16 118/68 Room Air 12/19/16 08:40 98.1 64 16 119/69 100 Room Air 12/19/16 04:00 98.1 67 18 106/66 100 Nasal Cannula 2.0 12/19/16 00:00 98.1 72 20 125/76 99 Nasal Cannula 2.0 Intake and Output 12/18/16 12/19/16 19:00 07:00 Intake Total 1090.0 ml 360.0 ml Balance 1090.0 ml 360.0 ml Intake Oral 980 ml 250 ml IV Total 110.0 ml 110.0 ml # Voids 2 2 Laboratory Tests 12/19/16 05:57: White Blood Count 17.5H, Red Blood Count 4.06L, Hemoglobin 10.9L, Hematocrit 34.6L, Mean Corpuscular Volume 85, Mean Corpuscular Hemoglobin 26.7L, Mean Corpuscular Hemoglobin Concent 31.4L, Red Cell Distribution Width 16.1H, Platelet Count 396, Mean Platelet Volume 5.9L, Neutrophils (%) (Auto) , Lymphocytes (%) (Auto) , Monocytes (%) (Auto) , Eosinophils (%) (Auto) , Basophils (%) (Auto) , Differential Total Cells Counted 100, Neutrophils % ( Manual) 92H, Lymphocytes % (Manual) 6L, Monocytes % (Manual) 2, Eosinophils % ( Manual) 0, Basophils % (Manual) 0, Band Neutrophils 0, Platelet Estimate Adequate, Platelet Morphology Normal, Hypochromasia 1+, Anisocytosis 1+, Sodium Level 137, Potassium Level 3.9, Chloride Level 102, Carbon Dioxide Level 23, Anion Gap 12, Blood Urea Nitrogen 28H, Creatinine 0.9, Estimat Glomerular Filtration Rate > 60, Glucose Level 125H, Calcium Level 9.3, Phosphorus Level 3.3, Magnesium Level 2.0, Triglycerides Level 39, Cholesterol Level 156, LDL Cholesterol 99, HDL Cholesterol 49, Cholesterol/HDL Ratio 3.2L Height (Feet): 5 Height (Inches): 6.00 Weight (Pounds): 164 Objective NCAT supple CTA RRR abd soft (+) RLQ TTP , mild distention no edema non focal BRITTNEY LOVING December 19, 2016 22:14
[2016-12-20] VITALS: BP 121/72
[2016-12-20] MEDS: Morphine Sulfate 2mg/ml Inj IVP PRN ×5 (00:32→22:58)
[2016-12-20] MEDS: Piperacillin/Tazobactam 3.375 GM in D5W 110 ML IVPB SCH ×4 (00:32→23:42)
[2016-12-20 04:00] VITALS: BP 111/66
--- NOTE | 2016-12-20 07:09 | General Progress Note ---
Assessment/Plan Assessment/Plan (1) Lumbar spondylosis (2) Chronic abdominal pain (3) Radiculopathy of lumbar region (4) Herniated nucleus pulposus, lumbar (5) Chronic pancreatitis (6) Chronic pain Pt will be continued on Morphine and pt has intrathecal pump. Pt was d/w Dr. Malhotra and he concurred. Subjective Date patient seen: December 20, 2016 Time patient seen: 06:30 - am Allergies: Coded Allergies: No Known Allergies (Verified , 05/21/06) Subjective Constitutional: Denies: chills, diaphoresis, fever, malaise, no symptoms, other , Reports: weakness HEENT: Denies: blurred vision, double vision, ear discharge, ear pain, eye pain , mouth pain, mouth swelling, no symptoms, nose congestion, nose pain, other, tearing, throat pain, throat swelling Cardiovascular: Denies: chest pain, edema, irregular heart rate, lightheadedness, no symptoms, other, palpitations, syncope Respiratory: Denies: SOB at rest, SOB with excertion, cough, no symptoms, orthopnea, other, shortness of breath, sputum, stridor, wheezing Gastrointestinal/Abdominal: Denies: abdomen distended, black stools, blood in stool, constipated, diarrhea, difficulty swallowing, nausea, no symptoms, other , poor appetite, poor fluid intake, rectal bleeding, tarry stools, vomiting, Reports: abdominal pain Genitourinary: Denies: burning, discharge, flank pain, frequency, hematuria, incontinence, no symptoms, other, pain, urgency Neurologic/Psychiatric: Denies: anxiety, depressed, emotional problems, headache, no symptoms, numbness, other, paresthesia, pre-existing deficit, seizure, tingling, tremors, weakness Endocrine: Denies: excessive sweating, flushing, increased hunger, increased thirst, increased urine, intolerance to cold, intolerance to heat, no symptoms, other, unexplained weight gain, unexplained weight loss Hematologic/Lymphatic: Denies: anemia, easy bleeding, easy bruising, no symptoms, other Subjective Her pain has been stable and tolerated on the morphine. Objective Last 24 Hour Vital Signs Date Time Temp Pulse Resp B/P Pulse Ox O2 Delivery O2 Flow Rate FiO2 12/20/16 04:00 97.8 69 20 111/66 100 Nasal Cannula 2.0 12/20/16 00:00 97.7 66 20 121/72 96 Nasal Cannula 2.0 12/19/16 20:51 98.8 12/19/16 20:00 98.8 85 20 118/66 96 Room Air 12/19/16 16:53 98.1 79 14 110/56 100 Nasal Cannula 12/19/16 12:00 97.0 63 16 118/68 Room Air 12/19/16 08:40 98.1 64 16 119/69 100 Room Air Intake and Output 12/19/16 12/20/16 19:00 07:00 Intake Total 2500 ml Output Total 1800 ml Balance 700 ml Intake Oral 2500 ml Output Urine Total 1800 ml # Voids 2 # Bowel Movements 1 Height (Feet): 5 Height (Inches): 6.00 Weight (Pounds): 164 Objective General Appearance: no apparent distress, alert EENT: normal ENT inspection, TMs normal Neck: normal alignment, supple Cardiovascular: normal rate, regular rhythm Respiratory/Chest: decreased breath sounds Abdomen: tender, soft Extremities: non-tender Edema: no edema noted Arm (L), no edema noted Arm (R), no edema noted Leg (L), no edema noted Leg (R), no edema noted Pedal (L), no edema noted Pedal (R), no edema noted Generalized Neurologic: alert, oriented x 3 Skin: warm/dry JOSE ARREDONDO December 20, 2016 07:09
--- NOTE | 2016-12-20 07:58 | General Progress Note ---
Assessment/Plan Problem List: (1) Pneumonia ICD Codes: J18.9 - Pneumonia, unspecified organism SNOMED: 417912573 (2) Chest pain ICD Codes: R07.9 - Chest pain, unspecified SNOMED: 33933086 (3) COPD (chronic obstructive pulmonary disease) ICD Codes: J44.9 - Chronic obstructive pulmonary disease, unspecified SNOMED: 56760246 (4) Sepsis ICD Codes: A41.9 - Sepsis, unspecified organism SNOMED: 69333340 Status: stable, progressing, tolerating diet Assessment/Plan ot pt diet o2 pulm tx abx cbc bmp am Subjective Constitutional: Reports: weakness Respiratory: Reports: shortness of breath Allergies: Coded Allergies: No Known Allergies (Verified , 05/21/06) All Systems: reviewed and negative except above Subjective o2nc calm Objective Last 24 Hour Vital Signs Date Time Temp Pulse Resp B/P Pulse Ox O2 Delivery O2 Flow Rate FiO2 12/20/16 04:00 97.8 69 20 111/66 100 Nasal Cannula 2.0 12/20/16 00:00 97.7 66 20 121/72 96 Nasal Cannula 2.0 12/19/16 20:51 98.8 12/19/16 20:00 98.8 85 20 118/66 96 Room Air 12/19/16 16:53 98.1 79 14 110/56 100 Nasal Cannula 12/19/16 12:00 97.0 63 16 118/68 Room Air 12/19/16 08:40 98.1 64 16 119/69 100 Room Air Intake and Output 12/19/16 12/20/16 19:00 07:00 Intake Total 2500 ml Output Total 1800 ml Balance 700 ml Intake Oral 2500 ml Output Urine Total 1800 ml # Voids 2 # Bowel Movements 1 Height (Feet): 5 Height (Inches): 6.00 Weight (Pounds): 164 General Appearance: alert EENT: normal ENT inspection Neck: normal alignment Cardiovascular: normal peripheral pulses, normal rate, regular rhythm Respiratory/Chest: chest wall non-tender, lungs clear, decreased breath sounds Abdomen: normal bowel sounds, non tender, soft Extremities: normal inspection Edema: no edema noted Arm (L), no edema noted Arm (R), no edema noted Leg (L), no edema noted Leg (R), no edema noted Pedal (L), no edema noted Pedal (R), no edema noted Generalized Neurologic: responsive, motor weakness Skin: normal pigmentation, warm/dry BAYRON BENEDICT December 20, 2016 07:58
[2016-12-20 08:15] VITALS: BP 112/65
[2016-12-20 08:28] LABS: BASOPHILS % (AUTO) 0.9 % (0.0-2.0); EOSINOPHILS % (AUTO) 0.5 % (0.0-3.0); LYMPHOCYTES % (AUTO) 29.7 % (20.0-45.0); MEAN CORPUSCULAR HGB CONC 31.8 G/DL (32.0-36.0); MEAN CORPUSCULAR VOLUME 85 FL (80-99); MEAN PLATELET VOLUME 6.5 FL (6.5-10.1); MONOCYTES % (AUTO) 10.1 % (1.0-10.0); NEUTROPHILS % (AUTO) 58.8 % (45.0-75.0); PLATELET COUNT 383 K/UL (150-450); RED BLOOD COUNT 4.06 M/UL (4.20-5.40); RED CELL DISTRIBUTION WIDTH 16.1 % (11.6-14.8)
[2016-12-20] MEDS ORDERED: Solu-MEDROL 125mg Inj IV SCH (09:00)
[2016-12-20] MEDS: Heparin 5000 units/ml inj SUBQ SCH ×2 (09:04→20:23)
[2016-12-20] MEDS: Aspirin Baby 81mg ORAL SCH (09:06)
[2016-12-20] MEDS: Theophylline ER 100mg ORAL SCH ×2 (09:07→20:19)
[2016-12-20] MEDS: DULoxetine 30mg cap ORAL SCH (09:07)
[2016-12-20] MEDS: Azithromycin 250mg tab ORAL SCH (09:07)
[2016-12-20 09:11] LABS: ANION GAP 11 (5-15); CALCIUM 9.1 mg/dL (8.6-10.2); CARBON DIOXIDE 25 mEQ/L (20-30); CHLORIDE 101 mEQ/L (98-107); CREATININE 0.9 mg/dL (0.5-0.9); GLOMERULAR FILTRATION RATE > 60 mL/min (>60); HEMOLYSIS 3; POTASSIUM 3.6 mEQ/L (3.4-4.9); SODIUM 137 mEQ/L (135-145)
[2016-12-20 12:18] VITALS: BP 110/72
--- NOTE | 2016-12-20 14:26 | General Progress Note ---
Assessment/Plan Assessment/Plan Assessment (1) Nausea and vomiting (2) Crohn's disease (3) Diarrhea (4) Abdominal pain, RLQ TTP - s/p EGD/colon 2016 - non functional implanted morphine pump LLQ Recommendations check CT abd and pelvis - R/o RLQ fistula or abscess unable to restart [place] [facility] [place], stool culture fu labs check Quantiferon TB gold in anticipation of anti TNF Rx Subjective Allergies: Coded Allergies: No Known Allergies (Verified , 05/21/06) Subjective still with RLQ pain says takes Pentassa 1000 TID at home currently on steroids WBC declining Objective Last 24 Hour Vital Signs Date Time Temp Pulse Resp B/P Pulse Ox O2 Delivery O2 Flow Rate FiO2 12/20/16 12:18 98.3 87 22 110/72 97 Nasal Cannula 2.0 12/20/16 08:15 99.7 78 21 112/65 97 Nasal Cannula 2.0 12/20/16 04:00 97.8 69 20 111/66 100 Nasal Cannula 2.0 12/20/16 00:00 97.7 66 20 121/72 96 Nasal Cannula 2.0 12/19/16 20:51 98.8 12/19/16 20:00 98.8 85 20 118/66 96 Room Air 12/19/16 16:53 98.1 79 14 110/56 100 Nasal Cannula Intake and Output 12/19/16 12/20/16 19:00 07:00 Intake Total 2500 ml Output Total 1800 ml Balance 700 ml Intake Oral 2500 ml Output Urine Total 1800 ml # Voids 2 # Bowel Movements 1 Laboratory Tests 12/20/16 06:45: White Blood Count 12.0H, Red Blood Count 4.06L, Hemoglobin 11.0L, Hematocrit 34.5L, Mean Corpuscular Volume 85, Mean Corpuscular Hemoglobin 27.0, Mean Corpuscular Hemoglobin Concent 31.8L, Red Cell Distribution Width 16.1H, Platelet Count 383, Mean Platelet Volume 6.5, Neutrophils (%) (Auto) 58.8, Lymphocytes (%) (Auto) 29.7, Monocytes (%) (Auto) 10.1H, Eosinophils (%) (Auto) 0.5, Basophils (%) (Auto) 0.9, Erythrocyte Sedimentation Rate 65H, Sodium Level 137, Potassium Level 3.6, Chloride Level 101, Carbon Dioxide Level 25, Anion Gap 11, Blood Urea Nitrogen 33H, Creatinine 0.9, Estimat Glomerular Filtration Rate > 60, Glucose Level 91, Calcium Level 9.1, C-Reactive Protein, Quantitative 0.5, TB Test (QFT) [Pending] Height (Feet): 5 Height (Inches): 6.00 Weight (Pounds): 164 Objective NCAT supple CTA RRR abd soft (+) RLQ TTP , mild distention no edema non focal BRITTNEY LOVING December 20, 2016 14:26
[2016-12-20 16:07] VITALS: BP 117/76
--- NOTE | 2016-12-20 18:37 | Pulmonology Progress Note ---
Assessment/Plan Problems: (1) COPD exacerbation (2) Interstitial lung disease (3) Emphysema (4) Chronic abdominal pain (5) Crohn's disease Assessment/Plan improving respiratory treatment abx continue respiratory treatment taper steroids no sputum yet, blood cultures negative BC are negative check electrolytes. Subjective ROS Limited/Unobtainable: No Interval Events: improving Allergies: Coded Allergies: No Known Allergies (Verified , 05/21/06) Objective Last 24 Hour Vital Signs Date Time Temp Pulse Resp B/P Pulse Ox O2 Delivery O2 Flow Rate FiO2 12/20/16 16:41 Nasal Cannula 1.0 24 12/20/16 16:41 93 Nasal Cannula 1.0 24 12/20/16 16:07 98.8 90 23 117/76 99 Nasal Cannula 2.0 12/20/16 12:18 98.3 87 22 110/72 97 Nasal Cannula 2.0 12/20/16 08:15 99.7 78 21 112/65 97 Nasal Cannula 2.0 12/20/16 04:00 97.8 69 20 111/66 100 Nasal Cannula 2.0 12/20/16 00:00 97.7 66 20 121/72 96 Nasal Cannula 2.0 12/19/16 20:51 98.8 12/19/16 20:00 98.8 85 20 118/66 96 Room Air Intake and Output 12/19/16 12/20/16 19:00 07:00 Intake Total 2500 ml Output Total 1800 ml Balance 700 ml Intake Oral 2500 ml Output Urine Total 1800 ml # Voids 2 # Bowel Movements 1 General Appearance: WD/WN HEENT: normocephalic, atraumatic Respiratory/Chest: chest wall non-tender, crackles/rales Cardiovascular: normal peripheral pulses, normal rate, regular rhythm Abdomen: normal bowel sounds Extremities: no cyanosis Laboratory Tests 12/20/16 06:45: White Blood Count 12.0H, Red Blood Count 4.06L, Hemoglobin 11.0L, Hematocrit 34.5L, Mean Corpuscular Volume 85, Mean Corpuscular Hemoglobin 27.0, Mean Corpuscular Hemoglobin Concent 31.8L, Red Cell Distribution Width 16.1H, Platelet Count 383, Mean Platelet Volume 6.5, Neutrophils (%) (Auto) 58.8, Lymphocytes (%) (Auto) 29.7, Monocytes (%) (Auto) 10.1H, Eosinophils (%) (Auto) 0.5, Basophils (%) (Auto) 0.9, Erythrocyte Sedimentation Rate 65H, Sodium Level 137, Potassium Level 3.6, Chloride Level 101, Carbon Dioxide Level 25, Anion Gap 11, Blood Urea Nitrogen 33H, Creatinine 0.9, Estimat Glomerular Filtration Rate > 60, Glucose Level 91, Calcium Level 9.1, C-Reactive Protein, Quantitative 0.5, TB Test (QFT) [Pending] Current Medications Medications (Trade) Dose Ordered Sig/Vaibhav Route PRN Reason Start Time Stop Time Status Last Admin Dose Admin Albuterol/ Ipratropium (DuoNeb 0.5-3(2.5)mg/3ml) 3 ml Q4H PRN HHN dyspnea 12/18/16 15:00 12/23/16 14:59 Aspirin (ASA) 81 mg DAILY ORAL 12/18/16 21:00 01/17/17 20:59 12/20/16 09:06 Atorvastatin Calcium (Lipitor) 40 mg BEDTIME ORAL 12/18/16 21:00 01/17/17 20:59 12/19/16 20:24 Azithromycin (Zithromax) 250 mg Q24H ORAL 12/19/16 09:00 12/26/16 08:59 12/20/16 09:07 Bupropion HCl (Wellbutrin) 100 mg DAILY ORAL 12/19/16 09:00 01/18/17 08:59 12/20/16 09:07 Dextrose (Dextrose 50%) STAT PRN IV Hypoglycemia 12/19/16 12:00 01/18/17 11:59 Duloxetine HCl (Cymbalta) 60 mg DAILY ORAL 12/19/16 09:00 01/18/17 08:59 12/20/16 09:07 Heparin Sodium (Porcine) (Heparin 5000 units/ml) 5,000 units EVERY 12 HOURS SUBQ 12/18/16 21:00 01/17/17 20:59 12/20/16 09:04 Ketorolac Tromethamine (Toradol 30mg) 30 mg Q8H PRN IV Moderate Pain (Pain Scale 4-6) 12/18/16 15:00 12/23/16 14:59 Levetiracetam (Keppra) 1,500 mg Q12HR ORAL 12/18/16 21:00 01/17/17 20:59 12/20/16 09:07 Loperamide HCl (Imodium) 2 mg Q4H PRN ORAL Diarrhea 12/18/16 15:00 01/17/17 14:59 Lorazepam (Ativan 2mg/ml 1ml) 0.5 mg Q4H PRN IV For Anxiety 12/18/16 15:00 12/25/16 14:59 Mesalamine (Asacol) 800 mg THREE TIMES A DAY ORAL 12/18/16 18:00 01/17/17 17:59 12/20/16 18:01 Methylprednisolone Sodium Succinate (Solu-MEDROL) 60 mg DAILY IV 12/20/16 09:00 01/19/17 08:59 12/20/16 09:06 Mirtazapine (Remeron) 30 mg BEDTIME ORAL 12/18/16 21:00 01/17/17 20:59 12/19/16 20:24 Morphine Sulfate (Morphine Sulfate) 2 mg Q4H PRN IVP Severe Pain (Pain Scale 7-10) 12/18/16 15:00 12/25/16 14:59 12/20/16 14:30 Nitroglycerin (Ntg) 0.4 mg Q5M X 3 DOSES PRN SL Prn Chest Pain 12/18/16 15:00 01/17/17 14:59 Ondansetron HCl (Zofran) 4 mg Q6H PRN IVP Nausea & Vomiting 12/18/16 15:00 01/17/17 14:59 Piperacillin Sod/ Tazobactam Sod/ Dextrose (Zosyn/D5W) 110 ml @ 27.5 mls/hr Q8HR@0000,0800,1600 IVPB 12/18/16 16:00 12/25/16 15:59 12/20/16 16:33 Promethazine HCl/ Codeine (Phenergan with Codeine) 5 ml Q6H PRN ORAL For Cough 12/18/16 15:00 01/17/17 14:59 Quetiapine Fumarate (SEROquel) 100 mg BEDTIME ORAL 12/18/16 21:00 01/17/17 20:59 12/19/16 20:24 Theophylline (Erwin-Dur) 100 mg EVERY 12 HOURS ORAL 12/18/16 21:00 01/17/17 20:59 12/20/16 09:07 Trazodone HCl (Desyrel) 100 mg HSPRN PRN ORAL Insomnia 12/18/16 21:00 01/17/17 20:59 12/18/16 21:55 DWAYNE SOTO December 20, 2016 18:37
[2016-12-20 20:00] VITALS: BP 114/77
[2016-12-20] MEDS: TraZODone 100mg tab ORAL PRN (22:20)
--- NOTE | 2016-12-20 23:49 | Cardiology Progress Note ---
Assessment/Plan Assessment/Plan 1. Dyspnea, due to acute exacerbation of COPD given lung exam findings, steroid , ABx therapy, pulmonary toilet and O2 therapy. 2. History of cerebrovascular accident, continue ASA and statin. 3. Crohn's disease. Subjective Subjective Denies chest pain or SOB. Comfortable. Objective Last 24 Hour Vital Signs Date Time Temp Pulse Resp B/P Pulse Ox O2 Delivery O2 Flow Rate FiO2 12/20/16 20:00 98.8 92 20 114/77 100 Nasal Cannula 2.0 12/20/16 16:41 Nasal Cannula 1.0 24 12/20/16 16:41 93 Nasal Cannula 1.0 24 12/20/16 16:07 98.8 90 23 117/76 99 Nasal Cannula 2.0 12/20/16 12:18 98.3 87 22 110/72 97 Nasal Cannula 2.0 12/20/16 08:15 99.7 78 21 112/65 97 Nasal Cannula 2.0 12/20/16 04:00 97.8 69 20 111/66 100 Nasal Cannula 2.0 12/20/16 00:00 97.7 66 20 121/72 96 Nasal Cannula 2.0 Intake and Output 12/19/16 12/20/16 19:00 07:00 Intake Total 2500 ml Output Total 1800 ml Balance 700 ml Intake Oral 2500 ml Output Urine Total 1800 ml # Voids 2 # Bowel Movements 1 Laboratory Tests Test 12/20/16 06:45 White Blood Count 12.0 K/UL (4.8-10.8) H Red Blood Count 4.06 M/UL (4.20-5.40) L Hemoglobin 11.0 G/DL (12.0-16.0) L Hematocrit 34.5 % (37.0-47.0) L Mean Corpuscular Volume 85 FL (80-99) Mean Corpuscular Hemoglobin 27.0 PG (27.0-31.0) Mean Corpuscular Hemoglobin Concent 31.8 G/DL (32.0-36.0) L Red Cell Distribution Width 16.1 % (11.6-14.8) H Platelet Count 383 K/UL (150-450) Mean Platelet Volume 6.5 FL (6.5-10.1) Neutrophils (%) (Auto) 58.8 % (45.0-75.0) Lymphocytes (%) (Auto) 29.7 % (20.0-45.0) Monocytes (%) (Auto) 10.1 % (1.0-10.0) H Eosinophils (%) (Auto) 0.5 % (0.0-3.0) Basophils (%) (Auto) 0.9 % (0.0-2.0) Erythrocyte Sedimentation Rate 65 MM/HR (0-30) H Sodium Level 137 mEQ/L (135-145) Potassium Level 3.6 mEQ/L (3.4-4.9) Chloride Level 101 mEQ/L (98-107) Carbon Dioxide Level 25 mEQ/L (20-30) Anion Gap 11 (5-15) Blood Urea Nitrogen 33 mg/dL (7-23) H Creatinine 0.9 mg/dL (0.5-0.9) Estimat Glomerular Filtration Rate > 60 mL/min (>60) Glucose Level 91 mg/dL (74-106) Calcium Level 9.1 mg/dL (8.6-10.2) C-Reactive Protein, Quantitative 0.5 mg/dL (< 0.5) TB Test (QFT) Pending Objective HEENT: Atraumatic and normocephalic. Anicteric. Pupils are equal, round, and reactive to light and accommodation. Extraocular muscles intact. NECK: JVP is less than 5 cm. No carotid bruits. Carotid upstrokes 2+ bilaterally. CVS: Normal S1 and S2. Regular rate and rhythm. A 2/6 mid systolic murmur in the left sternal border. PMI is at fourth intercostal space at the midclavicular line. LUNGS: Bilateral rhonchi with a prolonged expiratory phase. ABDOMEN: Distended. No hepatosplenomegaly. Soft. Positive bowel sounds. EXTREMITIES: No evidence of edema, clubbing, or cyanosis. DEX ARMANDO December 20, 2016 23:49
[2016-12-21] VITALS: BP 114/62
[2016-12-21 04:00] VITALS: BP 112/69
[2016-12-21 06:14] LABS: BASOPHILS % (AUTO) 0.7 % (0.0-2.0); LYMPHOCYTES % (AUTO) 26.6 % (20.0-45.0); MEAN CORPUSCULAR HEMOGLOBIN 26.4 PG (27.0-31.0); MEAN CORPUSCULAR HGB CONC 31.1 G/DL (32.0-36.0); MEAN CORPUSCULAR VOLUME 85 FL (80-99); MEAN PLATELET VOLUME 6.8 FL (6.5-10.1); NEUTROPHILS % (AUTO) 60.8 % (45.0-75.0); PLATELET COUNT 388 K/UL (150-450); RED BLOOD COUNT 4.28 M/UL (4.20-5.40); RED CELL DISTRIBUTION WIDTH 15.9 % (11.6-14.8); WHITE BLOOD COUNT 14.1 K/UL (4.8-10.8)
[2016-12-21] MEDS: Morphine Sulfate 2mg/ml Inj IVP PRN ×5 (06:32→22:33)
[2016-12-21 06:34] LABS: ANION GAP 14 (5-15); CALCIUM 9.2 mg/dL (8.6-10.2); CARBON DIOXIDE 24 mEQ/L (20-30); CHLORIDE 98 mEQ/L (98-107); CREATININE 0.9 mg/dL (0.5-0.9); GLOMERULAR FILTRATION RATE > 60 mL/min (>60); HEMOLYSIS 0; POTASSIUM 3.3 mEQ/L (3.4-4.9); SODIUM 136 mEQ/L (135-145)
--- NOTE | 2016-12-21 07:37 | General Progress Note ---
Assessment/Plan Problem List: (1) Crohn's disease ICD Codes: K50.90 - Crohn's disease SNOMED: 35425110 (2) Elevated CEA ICD Codes: R97.0 - Elevated CEA SNOMED: 347969783 (3) Chronic abdominal pain (4) Opioid dependence ICD Codes: F11.20 - Opioid dependence SNOMED: 21643394 Assessment/Plan fu CT fu stool C.diff meselamines fu labs pain control Subjective ROS Limited/Unobtainable: Yes Allergies: Coded Allergies: No Known Allergies (Verified , 05/21/06) Subjective c/o abd pain Objective Last 24 Hour Vital Signs Date Time Temp Pulse Resp B/P Pulse Ox O2 Delivery O2 Flow Rate FiO2 12/21/16 04:00 97.5 64 20 112/69 100 Nasal Cannula 2.0 12/21/16 00:00 98.1 79 20 114/62 100 Nasal Cannula 2.0 12/20/16 20:00 98.8 92 20 114/77 100 Nasal Cannula 2.0 12/20/16 16:41 Nasal Cannula 1.0 24 12/20/16 16:41 93 Nasal Cannula 1.0 24 12/20/16 16:07 98.8 90 23 117/76 99 Nasal Cannula 2.0 12/20/16 12:18 98.3 87 22 110/72 97 Nasal Cannula 2.0 12/20/16 08:15 99.7 78 21 112/65 97 Nasal Cannula 2.0 Intake and Output 12/20/16 12/21/16 19:00 07:00 Intake Total 720 ml Output Total 1000 ml Balance 720 ml -1000 ml Intake Oral 720 ml Output Urine Total 1000 ml # Bowel Movements 2 Laboratory Tests 12/21/16 05:30: White Blood Count 14.1H, Red Blood Count 4.28, Hemoglobin 11.3L, Hematocrit 36.3L, Mean Corpuscular Volume 85, Mean Corpuscular Hemoglobin 26.4L, Mean Corpuscular Hemoglobin Concent 31.1L, Red Cell Distribution Width 15.9H, Platelet Count 388, Mean Platelet Volume 6.8, Neutrophils (%) (Auto) 60.8, Lymphocytes (%) (Auto) 26.6, Monocytes (%) (Auto) 11.0H, Eosinophils (%) (Auto) 1.0, Basophils (%) (Auto) 0.7, Sodium Level 136, Potassium Level 3.3L, Chloride Level 98, Carbon Dioxide Level 24, Anion Gap 14, Blood Urea Nitrogen 30H, Creatinine 0.9, Estimat Glomerular Filtration Rate > 60, Glucose Level 111H, Calcium Level 9.2 Height (Feet): 5 Height (Inches): 6.00 Weight (Pounds): 164 General Appearance: alert EENT: normal ENT inspection Neck: supple Cardiovascular: normal rate Respiratory/Chest: decreased breath sounds Abdomen: soft, hypoactive bowel sounds, tender Extremities: non-tender LUIS POTTS December 21, 2016 07:37
--- NOTE | 2016-12-21 07:40 | General Progress Note ---
Assessment/Plan Assessment/Plan (1) Lumbar spondylosis (2) Chronic abdominal pain (3) Radiculopathy of lumbar region (4) Herniated nucleus pulposus, lumbar (5) Chronic pancreatitis (6) Chronic pain Pt will be continued on Morphine and pt has intrathecal pump. Pt was d/w Dr. Malhotra and he concurred. Subjective Date patient seen: December 21, 2016 Time patient seen: 07:00 - am Allergies: Coded Allergies: No Known Allergies (Verified , 05/21/06) Subjective Constitutional: Denies: chills, diaphoresis, fever, malaise, no symptoms, other , Reports: weakness HEENT: Denies: blurred vision, double vision, ear discharge, ear pain, eye pain , mouth pain, mouth swelling, no symptoms, nose congestion, nose pain, other, tearing, throat pain, throat swelling Cardiovascular: Denies: chest pain, edema, irregular heart rate, lightheadedness, no symptoms, other, palpitations, syncope Respiratory: Denies: SOB at rest, SOB with excertion, cough, no symptoms, orthopnea, other, shortness of breath, sputum, stridor, wheezing Gastrointestinal/Abdominal: Denies: abdomen distended, black stools, blood in stool, constipated, diarrhea, difficulty swallowing, nausea, no symptoms, other , poor appetite, poor fluid intake, rectal bleeding, tarry stools, vomiting, Reports: abdominal pain Genitourinary: Denies: burning, discharge, flank pain, frequency, hematuria, incontinence, no symptoms, other, pain, urgency Neurologic/Psychiatric: Denies: anxiety, depressed, emotional problems, headache, no symptoms, numbness, other, paresthesia, pre-existing deficit, seizure, tingling, tremors, weakness Endocrine: Denies: excessive sweating, flushing, increased hunger, increased thirst, increased urine, intolerance to cold, intolerance to heat, no symptoms, other, unexplained weight gain, unexplained weight loss Hematologic/Lymphatic: Denies: anemia, easy bleeding, easy bruising, no symptoms, other Subjective Pt is lying in be in no acute distress. Pain continues to fluctuate and is tolerated on current regimen. Objective Last 24 Hour Vital Signs Date Time Temp Pulse Resp B/P Pulse Ox O2 Delivery O2 Flow Rate FiO2 12/21/16 04:00 97.5 64 20 112/69 100 Nasal Cannula 2.0 5/29/17 00:00 98.1 79 20 114/62 100 Nasal Cannula 2.0 12/20/16 20:00 98.8 92 20 114/77 100 Nasal Cannula 2.0 12/20/16 16:41 Nasal Cannula 1.0 24 12/20/16 16:41 93 Nasal Cannula 1.0 24 12/20/16 16:07 98.8 90 23 117/76 99 Nasal Cannula 2.0 12/20/16 12:18 98.3 87 22 110/72 97 Nasal Cannula 2.0 12/20/16 08:15 99.7 78 21 112/65 97 Nasal Cannula 2.0 Intake and Output 12/20/16 12/21/16 19:00 07:00 Intake Total 720 ml Output Total 1000 ml Balance 720 ml -1000 ml Intake Oral 720 ml Output Urine Total 1000 ml # Bowel Movements 2 Laboratory Tests 12/21/16 05:30: White Blood Count 14.1H, Red Blood Count 4.28, Hemoglobin 11.3L, Hematocrit 36.3L, Mean Corpuscular Volume 85, Mean Corpuscular Hemoglobin 26.4L, Mean Corpuscular Hemoglobin Concent 31.1L, Red Cell Distribution Width 15.9H, Platelet Count 388, Mean Platelet Volume 6.8, Neutrophils (%) (Auto) 60.8, Lymphocytes (%) (Auto) 26.6, Monocytes (%) (Auto) 11.0H, Eosinophils (%) (Auto) 1.0, Basophils (%) (Auto) 0.7, Sodium Level 136, Potassium Level 3.3L, Chloride Level 98, Carbon Dioxide Level 24, Anion Gap 14, Blood Urea Nitrogen 30H, Creatinine 0.9, Estimat Glomerular Filtration Rate > 60, Glucose Level 111H, Calcium Level 9.2 Height (Feet): 5 Height (Inches): 6.00 Weight (Pounds): 164 Objective General Appearance: no apparent distress, alert EENT: normal ENT inspection, TMs normal Neck: normal alignment, supple Cardiovascular: normal rate, regular rhythm Respiratory/Chest: decreased breath sounds Abdomen: tender, soft Extremities: non-tender Edema: no edema noted Arm (L), no edema noted Arm (R), no edema noted Leg (L), no edema noted Leg (R), no edema noted Pedal (L), no edema noted Pedal (R), no edema noted Generalized Neurologic: alert, oriented x 3 Skin: warm/dry JOSE ARREDONDO December 21, 2016 07:40
--- NOTE | 2016-12-21 07:47 | General Progress Note ---
Assessment/Plan Problem List: (1) Pneumonia ICD Codes: J18.9 - Pneumonia, unspecified organism SNOMED: 603719007 (2) Chest pain ICD Codes: R07.9 - Chest pain, unspecified SNOMED: 43858254 (3) COPD (chronic obstructive pulmonary disease) ICD Codes: J44.9 - Chronic obstructive pulmonary disease, unspecified SNOMED: 95040306 (4) Sepsis ICD Codes: A41.9 - Sepsis, unspecified organism SNOMED: 70017777 Status: stable, progressing, tolerating diet Assessment/Plan ot pt diet o2 pulm tx abx cbc bmp am Subjective Constitutional: Reports: weakness Allergies: Coded Allergies: No Known Allergies (Verified , 05/21/06) All Systems: reviewed and negative except above Subjective o2nc calm sleepy Objective Last 24 Hour Vital Signs Date Time Temp Pulse Resp B/P Pulse Ox O2 Delivery O2 Flow Rate FiO2 12/21/16 04:00 97.5 64 20 112/69 100 Nasal Cannula 2.0 12/21/16 00:00 98.1 79 20 114/62 100 Nasal Cannula 2.0 12/20/16 20:00 98.8 92 20 114/77 100 Nasal Cannula 2.0 12/20/16 16:41 Nasal Cannula 1.0 24 12/20/16 16:41 93 Nasal Cannula 1.0 24 12/20/16 16:07 98.8 90 23 117/76 99 Nasal Cannula 2.0 12/20/16 12:18 98.3 87 22 110/72 97 Nasal Cannula 2.0 12/20/16 08:15 99.7 78 21 112/65 97 Nasal Cannula 2.0 Intake and Output 12/20/16 12/21/16 19:00 07:00 Intake Total 720 ml Output Total 1000 ml Balance 720 ml -1000 ml Intake Oral 720 ml Output Urine Total 1000 ml # Bowel Movements 2 Laboratory Tests 12/21/16 05:30: White Blood Count 14.1H, Red Blood Count 4.28, Hemoglobin 11.3L, Hematocrit 36.3L, Mean Corpuscular Volume 85, Mean Corpuscular Hemoglobin 26.4L, Mean Corpuscular Hemoglobin Concent 31.1L, Red Cell Distribution Width 15.9H, Platelet Count 388, Mean Platelet Volume 6.8, Neutrophils (%) (Auto) 60.8, Lymphocytes (%) (Auto) 26.6, Monocytes (%) (Auto) 11.0H, Eosinophils (%) (Auto) 1.0, Basophils (%) (Auto) 0.7, Sodium Level 136, Potassium Level 3.3L, Chloride Level 98, Carbon Dioxide Level 24, Anion Gap 14, Blood Urea Nitrogen 30H, Creatinine 0.9, Estimat Glomerular Filtration Rate > 60, Glucose Level 111H, Calcium Level 9.2 Height (Feet): 5 Height (Inches): 6.00 Weight (Pounds): 164 General Appearance: lethargic EENT: normal ENT inspection Neck: normal alignment Cardiovascular: normal peripheral pulses, normal rate, regular rhythm Respiratory/Chest: chest wall non-tender, lungs clear, decreased breath sounds Abdomen: normal bowel sounds, non tender, soft Extremities: normal inspection Edema: no edema noted Arm (L), no edema noted Arm (R), no edema noted Leg (L), no edema noted Leg (R), no edema noted Pedal (L), no edema noted Pedal (R), no edema noted Generalized Neurologic: responsive, motor weakness Skin: normal pigmentation, warm/dry BAYRON BENEDICT December 21, 2016 07:47
[2016-12-21 08:15] VITALS: BP 109/73
[2016-12-21] MEDS: Piperacillin/Tazobactam 3.375 GM in D5W 110 ML IVPB SCH ×3 (08:48→23:04)
[2016-12-21] MEDS: Aspirin Baby 81mg ORAL SCH (08:49)
[2016-12-21] MEDS: Azithromycin 250mg tab ORAL SCH (08:49)
[2016-12-21] MEDS: DULoxetine 30mg cap ORAL SCH (08:49)
[2016-12-21] MEDS: Theophylline ER 100mg ORAL SCH ×2 (08:50→21:00)
[2016-12-21] MEDS: Solu-MEDROL 40mg Inj IVP SCH (08:50)
[2016-12-21] MEDS: Heparin 5000 units/ml inj SUBQ SCH ×2 (08:55→21:01)
--- NOTE | 2016-12-21 10:08 | Diagnostic Imaging Report ---
Indication: Abdominal pain Technique: Continuous helical transaxial imaging of the abdomen and pelvis was obtained from the lung bases to the pubic symphysis during intravenous contrast administration. Coronal 2-D reformats were also obtained. Study obtained in a Siemens sensation [address] Total Dose length Product (DLP): [address] Dose Index Volume (CTDIvol): 16 mGy Comparison: December 25, 2013 Findings: Solid organs are unremarkable and appear relatively homogeneous. There is intraspinal pump device noted. No free fluid or free air identified. Accessory spleen nodules suspected. This is in the left upper quadrant of abdomen. Several nodules are present. There is no hydronephrosis or obvious renal stones identified. There is moderate fecal retention within the colon. There are surgical clips in the abdomen especially in the right lower quadrant. Partial colon resection appears to have been performed. There is no evidence of small bowel obstruction. Abdominal wall mesh noted indicative of previous abdominal plasty. Uterus is absent. Impression: Moderate fecal retention. Previous abdominal surgery. Anterior ventral abdominal wall mesh and abdominal plasty. Status post hysterectomy Spinal pain pump Atherosclerotic vascular disease Accessory splenic nodules Mild posterior basilar atelectasis [facility] has communicated the preliminary results to the Emergency Department. Their findings are largely concordant with this report. The CT scanner at [facility] is accredited by the [employer] and the scans are performed using dose optimization techniques as appropriate to a performed exam including Automatic Exposure control.
--- NOTE | 2016-12-21 10:30 | Consultation ---
DATE OF CONSULTATION: 12/17/2016 TREATING ATTENDING PHYSICIAN: Barber Dial D.O. HISTORY OF PRESENT ILLNESS: This is a 65-year-old female patient. The patient has a history of chronic obstructive pulmonary disease and history of bipolar 2 disorder. The patient does have anxiety. She has shortness of breath, pneumonia, COPD exacerbation, chest pain according to . The patient denies suicidal or homicidal thoughts or ideations. . PAST MEDICAL HISTORY: She has a history of COPD, Crohn's disease, and chronic pain. ALLERGIES: The patient has no known drug allergies. SUBSTANCE USE HISTORY: No indication of alcohol use or illicit substance use. SOCIAL HISTORY: The patient is a 65-year-old female patient facility. MENTAL STATUS EXAMINATION: The patient is alert and oriented . Mood is anxious. Affect is congruent. Thought process disorganized. The patient has poor attention and concentration. Poor insight, judgment, and impulse control. DIAGNOSES: AXIS I: Bipolar 2 disorder. AXIS II: Deferred. AXIS III: Per History and Physical. PLAN: Continue medications prior to the therapy . Dilshad Abel PsyD. DR: DU JOB#: [id number] CC:
[2016-12-21 12:33] VITALS: BP 107/68
--- NOTE | 2016-12-21 16:02 | Infectious Diseases Prog Note ---
Assessment/Plan Problems: (1) PNA (pneumonia) Assessment & Plan: continue Zosyn and azithromycin to cover atypical organisms , await sputum culture (2) Abdominal pain Assessment & Plan: due to crohn's disease , consult GI for further eval (3) Leukocytosis Assessment & Plan: due to steroids , recommend to taper , await blood culture and continue antibiotics (4) COPD exacerbation Assessment & Plan: on large dose of steroids, recommend to taper, continue nebulizers (5) Crohns disease Assessment & Plan: consult GI for further eval Subjective Constitutional: Reports: no symptoms HEENT: Reports: no symptoms Respiratory: Reports: no symptoms Breasts: Reports: no symptoms Cardiovascular: Reports: no symptoms Gastrointestinal/Abdominal: Reports: no symptoms Genitourinary: Reports: no symptoms Neurologic: Reports: no symptoms Psychiatric: Reports: no symptoms Skin: Reports: no symptoms Endocrine: Reports: no symptoms Allergies: Coded Allergies: No Known Allergies (Verified , 05/21/06) Objective Vital Signs Last 24 Hour Vital Signs Date Time Temp Pulse Resp B/P Pulse Ox O2 Delivery O2 Flow Rate FiO2 12/21/16 12:33 97.8 78 23 107/68 97 Nasal Cannula 2.0 12/21/16 08:15 97.7 76 20 109/73 97 Nasal Cannula 2.0 12/21/16 04:00 97.5 64 20 112/69 100 Nasal Cannula 2.0 12/21/16 00:00 98.1 79 20 114/62 100 Nasal Cannula 2.0 12/20/16 20:00 98.8 92 20 114/77 100 Nasal Cannula 2.0 12/20/16 16:41 Nasal Cannula 1.0 24 12/20/16 16:41 93 Nasal Cannula 1.0 24 12/20/16 16:07 98.8 90 23 117/76 99 Nasal Cannula 2.0 Height (Feet): 5 Height (Inches): 6.00 Weight (Pounds): 164 General Appearance: WD/WN, no acute distress HEENT: normocephalic, atraumatic, anicteric, mucous membranes moist Respiratory/Chest: chest wall non-tender, lungs clear, normal breath sounds, no respiratory distress, no accessory muscle use Cardiovascular: normal peripheral pulses, normal rate, regular rhythm, no gallop/murmur Abdomen: normal bowel sounds, soft, non tender, no organomegaly, non distended , no mass Extremities: no cyanosis, no clubbing Skin: no rash, no lesions Laboratory Tests Test 12/21/16 05:30 White Blood Count 14.1 K/UL (4.8-10.8) H Red Blood Count 4.28 M/UL (4.20-5.40) Hemoglobin 11.3 G/DL (12.0-16.0) L Hematocrit 36.3 % (37.0-47.0) L Mean Corpuscular Volume 85 FL (80-99) Mean Corpuscular Hemoglobin 26.4 PG (27.0-31.0) L Mean Corpuscular Hemoglobin Concent 31.1 G/DL (32.0-36.0) L Red Cell Distribution Width 15.9 % (11.6-14.8) H Platelet Count 388 K/UL (150-450) Mean Platelet Volume 6.8 FL (6.5-10.1) Neutrophils (%) (Auto) 60.8 % (45.0-75.0) Lymphocytes (%) (Auto) 26.6 % (20.0-45.0) Monocytes (%) (Auto) 11.0 % (1.0-10.0) H Eosinophils (%) (Auto) 1.0 % (0.0-3.0) Basophils (%) (Auto) 0.7 % (0.0-2.0) Sodium Level 136 mEQ/L (135-145) Potassium Level 3.3 mEQ/L (3.4-4.9) L Chloride Level 98 mEQ/L (98-107) Carbon Dioxide Level 24 mEQ/L (20-30) Anion Gap 14 (5-15) Blood Urea Nitrogen 30 mg/dL (7-23) H Creatinine 0.9 mg/dL (0.5-0.9) Estimat Glomerular Filtration Rate > 60 mL/min (>60) Glucose Level 111 mg/dL (74-106) H Calcium Level 9.2 mg/dL (8.6-10.2) Current Medications Medications (Trade) Dose Ordered Sig/Vaibhav Route PRN Reason Start Time Stop Time Status Last Admin Dose Admin Albuterol/ Ipratropium (DuoNeb 0.5-3(2.5)mg/3ml) 3 ml Q4H PRN HHN dyspnea 12/18/16 15:00 12/23/16 14:59 Aspirin (ASA) 81 mg DAILY ORAL 12/18/16 21:00 01/17/17 20:59 12/21/16 08:49 Atorvastatin Calcium (Lipitor) 40 mg BEDTIME ORAL 12/18/16 21:00 01/17/17 20:59 12/20/16 20:20 Azithromycin (Zithromax) 250 mg Q24H ORAL 12/19/16 09:00 12/26/16 08:59 12/21/16 08:49 Bupropion HCl (Wellbutrin) 100 mg DAILY ORAL 12/19/16 09:00 01/18/17 08:59 12/21/16 08:49 Dextrose (Dextrose 50%) STAT PRN IV Hypoglycemia 12/19/16 12:00 01/18/17 11:59 Duloxetine HCl (Cymbalta) 60 mg DAILY ORAL 12/19/16 09:00 01/18/17 08:59 12/21/16 08:49 Heparin Sodium (Porcine) (Heparin 5000 units/ml) 5,000 units EVERY 12 HOURS SUBQ 12/18/16 21:00 01/17/17 20:59 12/21/16 08:55 Ketorolac Tromethamine (Toradol 30mg) 30 mg Q8H PRN IV Moderate Pain (Pain Scale 4-6) 12/18/16 15:00 12/23/16 14:59 Levetiracetam (Keppra) 1,500 mg Q12HR ORAL 12/18/16 21:00 01/17/17 20:59 12/21/16 08:49 Loperamide HCl (Imodium) 2 mg Q4H PRN ORAL Diarrhea 12/18/16 15:00 01/17/17 14:59 Lorazepam (Ativan 2mg/ml 1ml) 0.5 mg Q4H PRN IV For Anxiety 12/18/16 15:00 12/25/16 14:59 Mesalamine (Asacol) 800 mg THREE TIMES A DAY ORAL 12/18/16 18:00 01/17/17 17:59 12/21/16 13:15 Methylprednisolone Sodium Succinate (Solu-MEDROL) 40 mg DAILY IVP 12/21/16 09:00 01/20/17 08:59 12/21/16 08:50 Mirtazapine (Remeron) 30 mg BEDTIME ORAL 12/18/16 21:00 01/17/17 20:59 12/20/16 20:19 Morphine Sulfate (Morphine Sulfate) 2 mg Q4H PRN IVP Severe Pain (Pain Scale 7-10) 12/18/16 15:00 12/25/16 14:59 12/21/16 14:41 Nitroglycerin (Ntg) 0.4 mg Q5M X 3 DOSES PRN SL Prn Chest Pain 12/18/16 15:00 01/17/17 14:59 Ondansetron HCl (Zofran) 4 mg Q6H PRN IVP Nausea & Vomiting 12/18/16 15:00 01/17/17 14:59 Piperacillin Sod/ Tazobactam Sod/ Dextrose (Zosyn/D5W) 110 ml @ 27.5 mls/hr Q8HR@0000,0800,1600 IVPB 12/18/16 16:00 12/25/16 15:59 12/21/16 15:52 Promethazine HCl/ Codeine (Phenergan with Codeine) 5 ml Q6H PRN ORAL For Cough 12/18/16 15:00 01/17/17 14:59 Quetiapine Fumarate (SEROquel) 100 mg BEDTIME ORAL 12/18/16 21:00 01/17/17 20:59 12/20/16 20:18 Theophylline (Erwin-Dur) 100 mg EVERY 12 HOURS ORAL 12/18/16 21:00 01/17/17 20:59 12/21/16 08:50 Trazodone HCl (Desyrel) 100 mg HSPRN PRN ORAL Insomnia 12/18/16 21:00 01/17/17 20:59 12/20/16 22:20 Darrel Golden M.D. December 21, 2016 16:02
[2016-12-21 16:27] VITALS: BP 115/70
[2016-12-21] MEDS ORDERED: NS 275ml ONE (17:56)
[2016-12-21] MEDS ORDERED: Tubing IV Secondary IV ONE (17:56)
[2016-12-21 20:00] VITALS: BP 123/77
--- NOTE | 2016-12-21 22:43 | Pulmonology Progress Note ---
Assessment/Plan Problems: (1) COPD exacerbation (2) Interstitial lung disease (3) Emphysema (4) Chronic abdominal pain (5) Crohn's disease Assessment/Plan improving respiratory treatment abx continue respiratory treatment taper steroids no sputum yet, blood cultures negative BC are negative check electrolytes. dc planning Subjective ROS Limited/Unobtainable: No Interval Events: improving Allergies: Coded Allergies: No Known Allergies (Verified , 05/21/06) Objective Last 24 Hour Vital Signs Date Time Temp Pulse Resp B/P Pulse Ox O2 Delivery O2 Flow Rate FiO2 12/21/16 20:00 98.1 88 19 123/77 95 Room Air 12/21/16 19:45 96 Nasal Cannula 1.0 24 12/21/16 19:45 Nasal Cannula 1.0 24 12/21/16 16:27 98.3 82 24 115/70 97 Nasal Cannula 2.0 12/21/16 12:33 97.8 78 23 107/68 97 Nasal Cannula 2.0 12/21/16 08:15 97.7 76 20 109/73 97 Nasal Cannula 2.0 12/21/16 04:00 97.5 64 20 112/69 100 Nasal Cannula 2.0 12/21/16 00:00 98.1 79 20 114/62 100 Nasal Cannula 2.0 Intake and Output 12/20/16 12/21/16 19:00 07:00 Intake Total 720 ml Output Total 1000 ml Balance 720 ml -1000 ml Intake Oral 720 ml Output Urine Total 1000 ml # Bowel Movements 2 General Appearance: WD/WN HEENT: normocephalic, atraumatic Respiratory/Chest: chest wall non-tender, lungs clear Breasts: no masses Cardiovascular: normal peripheral pulses, normal rate Abdomen: normal bowel sounds, soft, non tender Extremities: no cyanosis, no clubbing Laboratory Tests 12/21/16 05:30: White Blood Count 14.1H, Red Blood Count 4.28, Hemoglobin 11.3L, Hematocrit 36.3L, Mean Corpuscular Volume 85, Mean Corpuscular Hemoglobin 26.4L, Mean Corpuscular Hemoglobin Concent 31.1L, Red Cell Distribution Width 15.9H, Platelet Count 388, Mean Platelet Volume 6.8, Neutrophils (%) (Auto) 60.8, Lymphocytes (%) (Auto) 26.6, Monocytes (%) (Auto) 11.0H, Eosinophils (%) (Auto) 1.0, Basophils (%) (Auto) 0.7, Sodium Level 136, Potassium Level 3.3L, Chloride Level 98, Carbon Dioxide Level 24, Anion Gap 14, Blood Urea Nitrogen 30H, Creatinine 0.9, Estimat Glomerular Filtration Rate > 60, Glucose Level 111H, Calcium Level 9.2 Current Medications Medications (Trade) Dose Ordered Sig/Vaibhav Route PRN Reason Start Time Stop Time Status Last Admin Dose Admin Albuterol/ Ipratropium (DuoNeb 0.5-3(2.5)mg/3ml) 3 ml Q4H PRN HHN dyspnea 12/18/16 15:00 12/23/16 14:59 Aspirin (ASA) 81 mg DAILY ORAL 12/18/16 21:00 01/17/17 20:59 12/21/16 08:49 Atorvastatin Calcium (Lipitor) 40 mg BEDTIME ORAL 12/18/16 21:00 01/17/17 20:59 12/21/16 21:00 Azithromycin (Zithromax) 250 mg Q24H ORAL 12/19/16 09:00 12/26/16 08:59 12/21/16 08:49 Bupropion HCl (Wellbutrin) 100 mg DAILY ORAL 12/19/16 09:00 01/18/17 08:59 12/21/16 08:49 Dextrose (Dextrose 50%) STAT PRN IV Hypoglycemia 12/19/16 12:00 01/18/17 11:59 Duloxetine HCl (Cymbalta) 60 mg DAILY ORAL 12/19/16 09:00 01/18/17 08:59 12/21/16 08:49 Heparin Sodium (Porcine) (Heparin 5000 units/ml) 5,000 units EVERY 12 HOURS SUBQ 12/18/16 21:00 01/17/17 20:59 12/21/16 21:01 Ketorolac Tromethamine (Toradol 30mg) 30 mg Q8H PRN IV Moderate Pain (Pain Scale 4-6) 12/18/16 15:00 12/23/16 14:59 Levetiracetam (Keppra) 1,500 mg Q12HR ORAL 12/18/16 21:00 01/17/17 20:59 12/21/16 21:00 Loperamide HCl (Imodium) 2 mg Q4H PRN ORAL Diarrhea 5/26/17 15:00 01/17/17 14:59 Lorazepam (Ativan 2mg/ml 1ml) 0.5 mg Q4H PRN IV For Anxiety 12/18/16 15:00 12/25/16 14:59 Mesalamine (Asacol) 800 mg THREE TIMES A DAY ORAL 12/18/16 18:00 01/17/17 17:59 12/21/16 18:32 Methylprednisolone Sodium Succinate (Solu-MEDROL) 40 mg DAILY IVP 12/21/16 09:00 01/20/17 08:59 12/21/16 08:50 Mirtazapine (Remeron) 30 mg BEDTIME ORAL 12/18/16 21:00 01/17/17 20:59 12/21/16 21:00 Morphine Sulfate (Morphine Sulfate) 2 mg Q4H PRN IVP Severe Pain (Pain Scale 7-10) 12/18/16 15:00 12/25/16 14:59 12/21/16 22:33 Nitroglycerin (Ntg) 0.4 mg Q5M X 3 DOSES PRN SL Prn Chest Pain 12/18/16 15:00 01/17/17 14:59 Ondansetron HCl (Zofran) 4 mg Q6H PRN IVP Nausea & Vomiting 12/18/16 15:00 01/17/17 14:59 Piperacillin Sod/ Tazobactam Sod/ Dextrose (Zosyn/D5W) 110 ml @ 27.5 mls/hr Q8HR@0000,0800,1600 IVPB 12/18/16 16:00 12/25/16 15:59 12/21/16 15:52 Promethazine HCl/ Codeine (Phenergan with Codeine) 5 ml Q6H PRN ORAL For Cough 12/18/16 15:00 01/17/17 14:59 Quetiapine Fumarate (SEROquel) 100 mg BEDTIME ORAL 12/18/16 21:00 01/17/17 20:59 12/21/16 21:01 Theophylline (Erwin-Dur) 100 mg EVERY 12 HOURS ORAL 12/18/16 21:00 01/17/17 20:59 12/21/16 21:00 Trazodone HCl (Desyrel) 100 mg HSPRN PRN ORAL Insomnia 12/18/16 21:00 01/17/17 20:59 12/20/16 22:20 DWAYNE SOTO December 21, 2016 22:43
[2016-12-21] MEDS: TraZODone 100mg tab ORAL PRN (23:04)
[2016-12-22] VITALS: BP 120/75
[2016-12-22] MEDS: Morphine Sulfate 2mg/ml Inj IVP PRN (02:54)
[2016-12-22 04:00] VITALS: BP 119/72
[2016-12-22 06:58] LABS: BASOPHILS % (AUTO) 0.4 % (0.0-2.0); EOSINOPHILS % (AUTO) 1.9 % (0.0-3.0); MEAN CORPUSCULAR HEMOGLOBIN 26.8 PG (27.0-31.0); MEAN CORPUSCULAR HGB CONC 31.4 G/DL (32.0-36.0); MEAN CORPUSCULAR VOLUME 85 FL (80-99); MEAN PLATELET VOLUME 6.9 FL (6.5-10.1); MONOCYTES % (AUTO) 9.1 % (1.0-10.0); NEUTROPHILS % (AUTO) 60.6 % (45.0-75.0); PLATELET COUNT 385 K/UL (150-450); RED CELL DISTRIBUTION WIDTH 16.1 % (11.6-14.8)
[2016-12-22 07:04] LABS: ANION GAP 10 (5-15); CALCIUM 9.4 mg/dL (8.6-10.2); CARBON DIOXIDE 26 mEQ/L (20-30); CHLORIDE 101 mEQ/L (98-107); CREATININE 0.9 mg/dL (0.5-0.9); GLOMERULAR FILTRATION RATE > 60 mL/min (>60); HEMOLYSIS 3; POTASSIUM 3.8 mEQ/L (3.4-4.9); SODIUM 137 mEQ/L (135-145)
--- NOTE | 2016-12-22 07:44 | General Progress Note ---
Assessment/Plan Assessment/Plan (1) Lumbar spondylosis (2) Chronic abdominal pain (3) Radiculopathy of lumbar region (4) Herniated nucleus pulposus, lumbar (5) Chronic pancreatitis (6) Chronic pain Pt will be continued on Morphine and pt has intrathecal pump. Pt was d/w Dr. Malhotra and he concurred. Subjective Date patient seen: December 22, 2016 Time patient seen: 07:15 - am Allergies: Coded Allergies: No Known Allergies (Verified , 05/21/06) Subjective Constitutional: Denies: chills, diaphoresis, fever, malaise, no symptoms, other , Reports: weakness HEENT: Denies: blurred vision, double vision, ear discharge, ear pain, eye pain , mouth pain, mouth swelling, no symptoms, nose congestion, nose pain, other, tearing, throat pain, throat swelling Cardiovascular: Denies: chest pain, edema, irregular heart rate, lightheadedness, no symptoms, other, palpitations, syncope Respiratory: Denies: SOB at rest, SOB with excertion, cough, no symptoms, orthopnea, other, shortness of breath, sputum, stridor, wheezing Gastrointestinal/Abdominal: Denies: abdomen distended, black stools, blood in stool, constipated, diarrhea, difficulty swallowing, nausea, no symptoms, other , poor appetite, poor fluid intake, rectal bleeding, tarry stools, vomiting, Reports: abdominal pain Genitourinary: Denies: burning, discharge, flank pain, frequency, hematuria, incontinence, no symptoms, other, pain, urgency Neurologic/Psychiatric: Denies: anxiety, depressed, emotional problems, headache, no symptoms, numbness, other, paresthesia, pre-existing deficit, seizure, tingling, tremors, weakness Endocrine: Denies: excessive sweating, flushing, increased hunger, increased thirst, increased urine, intolerance to cold, intolerance to heat, no symptoms, other, unexplained weight gain, unexplained weight loss Hematologic/Lymphatic: Denies: anemia, easy bleeding, easy bruising, no symptoms, other Subjective She continues to c/o pain which has been tolerated and reduced on the medications Pt is looking forward to being 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 Objective Last 24 Hour Vital Signs Date Time Temp Pulse Resp B/P Pulse Ox O2 Delivery O2 Flow Rate FiO2 12/22/16 04:00 98.6 74 17 119/72 100 Room Air 12/22/16 00:00 98.2 80 19 120/75 100 Room Air 12/21/16 20:00 98.1 88 19 123/77 95 Room Air 12/21/16 19:45 96 Nasal Cannula 1.0 24 12/21/16 19:45 Nasal Cannula 1.0 24 12/21/16 16:27 98.3 82 24 115/70 97 Nasal Cannula 2.0 12/21/16 12:33 97.8 78 23 107/68 97 Nasal Cannula 2.0 12/21/16 08:15 97.7 76 20 109/73 97 Nasal Cannula 2.0 Intake and Output 12/21/16 12/22/16 19:00 07:00 Intake Total 1152.5 ml 137.5 ml Balance 1152.5 ml 137.5 ml Intake Oral 960 ml IV Total 192.5 ml 137.5 ml # Voids 3 2 # Bowel Movements 4 Laboratory Tests 12/22/16 05:50: White Blood Count 14.0H, Red Blood Count 4.20, Hemoglobin 11.2L, Hematocrit 35.8L, Mean Corpuscular Volume 85, Mean Corpuscular Hemoglobin 26.8L, Mean Corpuscular Hemoglobin Concent 31.4L, Red Cell Distribution Width 16.1H, Platelet Count 385, Mean Platelet Volume 6.9, Neutrophils (%) (Auto) 60.6, Lymphocytes (%) (Auto) 28.0, Monocytes (%) (Auto) 9.1, Eosinophils (%) (Auto) 1.9, Basophils (%) (Auto) 0.4, Sodium Level 137, Potassium Level 3.8, Chloride Level 101, Carbon Dioxide Level 26, Anion Gap 10, Blood Urea Nitrogen 28H, Creatinine 0.9, Estimat Glomerular Filtration Rate > 60, Glucose Level 102, Calcium Level 9.4, TB Test (T-Spot) [Pending], TB Test Nil Control (T-Spot) [ Pending], TB Test Panel A (T-Spot) [Pending], TB Test Panel B (T-Spot) [Pending] , TB Test Positive Control (T-Spot) [Pending] Height (Feet): 5 Height (Inches): 6.00 Weight (Pounds): 164 Objective General Appearance: no apparent distress, alert EENT: normal ENT inspection, TMs normal Neck: normal alignment, supple Cardiovascular: normal rate, regular rhythm Respiratory/Chest: decreased breath sounds Abdomen: tender, soft Extremities: non-tender Edema: no edema noted Arm (L), no edema noted Arm (R), no edema noted Leg (L), no edema noted Leg (R), no edema noted Pedal (L), no edema noted Pedal (R), no edema noted Generalized Neurologic: alert, oriented x 3 Skin: warm/dry JOSE ARREDONDO December 22, 2016 07:44
[2016-12-22] MEDS ORDERED: Morphine Sulfate 2mg/ml Inj IVP PRN (08:00)
[2016-12-22] MEDS: Aspirin Baby 81mg ORAL SCH (08:11)
[2016-12-22] MEDS: Solu-MEDROL 40mg Inj IVP SCH (08:11)
[2016-12-22] MEDS: Piperacillin/Tazobactam 3.375 GM in D5W 110 ML IVPB SCH (08:11)
[2016-12-22] MEDS: Azithromycin 250mg tab ORAL SCH (08:12)
[2016-12-22] MEDS: DULoxetine 30mg cap ORAL SCH (08:12)
[2016-12-22] MEDS: Heparin 5000 units/ml inj SUBQ SCH (08:13)
[2016-12-22] MEDS: Theophylline ER 100mg ORAL SCH (08:14)
--- NOTE | 2016-12-22 08:18 | Cardiology Progress Note ---
Assessment/Plan Assessment/Plan 1. Dyspnea, improved due to acute exacerbation of COPD given lung exam findings , steroid, ABx therapy, pulmonary toilet and O2 therapy. 2. History of cerebrovascular accident, continue ASA and statin. 3. Crohn's disease. Subjective Subjective Denies chest pain or SOB, walking around. Awaiting to be discharged. Objective Last 24 Hour Vital Signs Date Time Temp Pulse Resp B/P Pulse Ox O2 Delivery O2 Flow Rate FiO2 12/22/16 04:00 98.6 74 17 119/72 100 Room Air 12/22/16 00:00 98.2 80 19 120/75 100 Room Air 12/21/16 20:00 98.1 88 19 123/77 95 Room Air 12/21/16 19:45 96 Nasal Cannula 1.0 24 12/21/16 19:45 Nasal Cannula 1.0 24 12/21/16 16:27 98.3 82 24 115/70 97 Nasal Cannula 2.0 12/21/16 12:33 97.8 78 23 107/68 97 Nasal Cannula 2.0 Intake and Output 12/21/16 12/22/16 18:59 06:59 Intake Total 1125.0 ml 165.0 ml Balance 1125.0 ml 165.0 ml Intake Oral 960 ml IV Total 165.0 ml 165.0 ml # Voids 3 2 # Bowel Movements 4 Laboratory Tests Test 12/22/16 05:50 White Blood Count 14.0 K/UL (4.8-10.8) H Red Blood Count 4.20 M/UL (4.20-5.40) Hemoglobin 11.2 G/DL (12.0-16.0) L Hematocrit 35.8 % (37.0-47.0) L Mean Corpuscular Volume 85 FL (80-99) Mean Corpuscular Hemoglobin 26.8 PG (27.0-31.0) L Mean Corpuscular Hemoglobin Concent 31.4 G/DL (32.0-36.0) L Red Cell Distribution Width 16.1 % (11.6-14.8) H Platelet Count 385 K/UL (150-450) Mean Platelet Volume 6.9 FL (6.5-10.1) Neutrophils (%) (Auto) 60.6 % (45.0-75.0) Lymphocytes (%) (Auto) 28.0 % (20.0-45.0) Monocytes (%) (Auto) 9.1 % (1.0-10.0) Eosinophils (%) (Auto) 1.9 % (0.0-3.0) Basophils (%) (Auto) 0.4 % (0.0-2.0) Sodium Level 137 mEQ/L (135-145) Potassium Level 3.8 mEQ/L (3.4-4.9) Chloride Level 101 mEQ/L (98-107) Carbon Dioxide Level 26 mEQ/L (20-30) Anion Gap 10 (5-15) Blood Urea Nitrogen 28 mg/dL (7-23) H Creatinine 0.9 mg/dL (0.5-0.9) Estimat Glomerular Filtration Rate > 60 mL/min (>60) Glucose Level 102 mg/dL (74-106) Calcium Level 9.4 mg/dL (8.6-10.2) TB Test (T-Spot) Pending TB Test Nil Control (T-Spot) Pending TB Test Panel A (T-Spot) Pending TB Test Panel B (T-Spot) Pending TB Test Positive Control (T-Spot) Pending Objective HEENT: Atraumatic and normocephalic. Anicteric. Pupils are equal, round, and reactive to light and accommodation. Extraocular muscles intact. NECK: JVP is less than 5 cm. No carotid bruits. Carotid upstrokes 2+ bilaterally. CVS: Normal S1 and S2. Regular rate and rhythm. A 2/6 mid systolic murmur in the left sternal border. PMI is at fourth intercostal space at the midclavicular line. LUNGS: Bilateral rhonchi with a prolonged expiratory phase. ABDOMEN: Distended. No hepatosplenomegaly. Soft. Positive bowel sounds. EXTREMITIES: No evidence of edema, clubbing, or cyanosis. DEX ARMANDO December 22, 2016 08:18
[2016-12-22 08:39] VITALS: BP 115/63
[2016-12-22 12:39] VITALS: BP 101/64
--- NOTE | 2016-12-22 13:02 | General Progress Note ---
Assessment/Plan Problem List: (1) Pneumonia ICD Codes: J18.9 - Pneumonia, unspecified organism SNOMED: 564820849 (2) Chest pain ICD Codes: R07.9 - Chest pain, unspecified SNOMED: 94788931 (3) COPD (chronic obstructive pulmonary disease) ICD Codes: J44.9 - Chronic obstructive pulmonary disease, unspecified SNOMED: 95794095 (4) Sepsis ICD Codes: A41.9 - Sepsis, unspecified organism SNOMED: 11701889 Status: stable, progressing, tolerating diet Assessment/Plan ot pt diet o2 pulm tx abx cbc bmp am dc w hh if clear by id and pulm Subjective Constitutional: Reports: weakness Allergies: Coded Allergies: No Known Allergies (Verified , 05/21/06) All Systems: reviewed and negative except above Subjective eating calm wants to go home Objective Last 24 Hour Vital Signs Date Time Temp Pulse Resp B/P Pulse Ox O2 Delivery O2 Flow Rate FiO2 12/22/16 12:39 97.9 79 15 101/64 100 Room Air 12/22/16 08:39 98.1 78 16 115/63 100 Room Air 12/22/16 04:00 98.6 74 17 119/72 100 Room Air 12/22/16 00:00 98.2 80 19 120/75 100 Room Air 12/21/16 20:00 98.1 88 19 123/77 95 Room Air 12/21/16 19:45 96 Nasal Cannula 1.0 24 12/21/16 19:45 Nasal Cannula 1.0 24 12/21/16 16:27 98.3 82 24 115/70 97 Nasal Cannula 2.0 Intake and Output 12/21/16 12/22/16 19:00 07:00 Intake Total 1152.5 ml 137.5 ml Balance 1152.5 ml 137.5 ml Intake Oral 960 ml IV Total 192.5 ml 137.5 ml # Voids 3 2 # Bowel Movements 4 Laboratory Tests 12/22/16 05:50: White Blood Count 14.0H, Red Blood Count 4.20, Hemoglobin 11.2L, Hematocrit 35.8L, Mean Corpuscular Volume 85, Mean Corpuscular Hemoglobin 26.8L, Mean Corpuscular Hemoglobin Concent 31.4L, Red Cell Distribution Width 16.1H, Platelet Count 385, Mean Platelet Volume 6.9, Neutrophils (%) (Auto) 60.6, Lymphocytes (%) (Auto) 28.0, Monocytes (%) (Auto) 9.1, Eosinophils (%) (Auto) 1.9, Basophils (%) (Auto) 0.4, Sodium Level 137, Potassium Level 3.8, Chloride Level 101, Carbon Dioxide Level 26, Anion Gap 10, Blood Urea Nitrogen 28H, Creatinine 0.9, Estimat Glomerular Filtration Rate > 60, Glucose Level 102, Calcium Level 9.4, TB Test (T-Spot) [Pending], TB Test Nil Control (T-Spot) [ Pending], TB Test Panel A (T-Spot) [Pending], TB Test Panel B (T-Spot) [Pending] , TB Test Positive Control (T-Spot) [Pending] Height (Feet): 5 Height (Inches): 6.00 Weight (Pounds): 164 General Appearance: alert EENT: normal ENT inspection Neck: normal alignment Cardiovascular: normal peripheral pulses, normal rate, regular rhythm Respiratory/Chest: chest wall non-tender, lungs clear, normal breath sounds Abdomen: normal bowel sounds, non tender, soft Extremities: normal inspection Edema: no edema noted Arm (L), no edema noted Arm (R), no edema noted Leg (L), no edema noted Leg (R), no edema noted Pedal (L), no edema noted Pedal (R), no edema noted Generalized Neurologic: responsive, motor weakness Skin: normal pigmentation, warm/dry BAYRON BENEDICT December 22, 2016 13:02
[2016-12-22] MEDS ORDERED: ASPIR 8181 MG ORAL (14:23)
[2016-12-22] MEDS ORDERED: LIPITOR40 MG ORAL (14:24)
[2016-12-22] MEDS ORDERED: AZITHROMYCIN250 MG ORAL (14:24)
[2016-12-22] MEDS ORDERED: ASACOL HD800 MG ORAL (14:27)
[2016-12-22] MEDS ORDERED: PROMETHAZINE V237 ML ORAL (14:28)
[2016-12-22] MEDS ORDERED: THEOPHYLLINE A100 MG ORAL (14:29)
--- NOTE | 2016-12-22 14:50 | GI Progress Note ---
Assessment/Plan Problems: (1) Nausea and vomiting (2) IBD (inflammatory bowel disease) ICD Codes: K63.89 - Other specified diseases of intestine SNOMED: 22229330 (3) Diarrhea ICD Codes: R19.7 - Diarrhea, unspecified SNOMED: 95309121 (4) Abdominal pain (5) Crohns disease ICD Codes: K50.90 - Crohns disease SNOMED: 18614484 Status: stable Status Narrative Discussed with Dr. Gallegos. Assessment/Plan s/p EGD/colon 2016 non functional implanted morphine pump LLQ ok for DC per GI standpoint symptomatic treatment at this time electrolyte replacement low residual diet fu cdiff, stool culture >> negative Imodium prn, consider lomotil if diarrhea persists mesalamine for Crohns pain mgmt fu labs Subjective Subjective diarrhea >> resolved abdominal pain chronic pain Objective Last 24 Hour Vital Signs Date Time Temp Pulse Resp B/P Pulse Ox O2 Delivery O2 Flow Rate FiO2 12/22/16 12:39 97.9 79 15 101/64 100 Room Air 12/22/16 08:39 98.1 78 16 115/63 100 Room Air 12/22/16 04:00 98.6 74 17 119/72 100 Room Air 12/22/16 00:00 98.2 80 19 120/75 100 Room Air 12/21/16 20:00 98.1 88 19 123/77 95 Room Air 12/21/16 19:45 96 Nasal Cannula 1.0 24 12/21/16 19:45 Nasal Cannula 1.0 24 12/21/16 16:27 98.3 82 24 115/70 97 Nasal Cannula 2.0 Intake and Output 12/21/16 12/22/16 19:00 07:00 Intake Total 1152.5 ml 137.5 ml Balance 1152.5 ml 137.5 ml Intake Oral 960 ml IV Total 192.5 ml 137.5 ml # Voids 3 2 # Bowel Movements 4 Laboratory Tests Test 12/22/16 05:50 White Blood Count 14.0 K/UL (4.8-10.8) H Red Blood Count 4.20 M/UL (4.20-5.40) Hemoglobin 11.2 G/DL (12.0-16.0) L Hematocrit 35.8 % (37.0-47.0) L Mean Corpuscular Volume 85 FL (80-99) Mean Corpuscular Hemoglobin 26.8 PG (27.0-31.0) L Mean Corpuscular Hemoglobin Concent 31.4 G/DL (32.0-36.0) L Red Cell Distribution Width 16.1 % (11.6-14.8) H Platelet Count 385 K/UL (150-450) Mean Platelet Volume 6.9 FL (6.5-10.1) Neutrophils (%) (Auto) 60.6 % (45.0-75.0) Lymphocytes (%) (Auto) 28.0 % (20.0-45.0) Monocytes (%) (Auto) 9.1 % (1.0-10.0) Eosinophils (%) (Auto) 1.9 % (0.0-3.0) Basophils (%) (Auto) 0.4 % (0.0-2.0) Sodium Level 137 mEQ/L (135-145) Potassium Level 3.8 mEQ/L (3.4-4.9) Chloride Level 101 mEQ/L (98-107) Carbon Dioxide Level 26 mEQ/L (20-30) Anion Gap 10 (5-15) Blood Urea Nitrogen 28 mg/dL (7-23) H Creatinine 0.9 mg/dL (0.5-0.9) Estimat Glomerular Filtration Rate > 60 mL/min (>60) Glucose Level 102 mg/dL (74-106) Calcium Level 9.4 mg/dL (8.6-10.2) TB Test (T-Spot) Pending TB Test Nil Control (T-Spot) Pending TB Test Panel A (T-Spot) Pending TB Test Panel B (T-Spot) Pending TB Test Positive Control (T-Spot) Pending Height (Feet): 5 Height (Inches): 6.00 Weight (Pounds): 164 General Appearance: no apparent distress, alert, thin Cardiovascular: normal rate Respiratory/Chest: normal breath sounds Abdominal Exam: normal bowel sounds, non tender, soft Tara Scott N.P. December 22, 2016 14:50
--- NOTE | 2016-12-22 15:48 | Pulmonology Progress Note ---
Assessment/Plan Problems: (1) COPD exacerbation (2) Interstitial lung disease (3) Emphysema (4) Chronic abdominal pain (5) Crohn's disease Assessment/Plan improving respiratory treatment abx continue respiratory treatment taper steroids no sputum yet, blood cultures negative BC are negative check electrolytes. dc planning ok to dc home Subjective ROS Limited/Unobtainable: No Constitutional: Reports: no symptoms HEENT: Repors: no symptoms Respiratory: Reports: no symptoms Allergies: Coded Allergies: No Known Allergies (Verified , 05/21/06) Objective Last 24 Hour Vital Signs Date Time Temp Pulse Resp B/P Pulse Ox O2 Delivery O2 Flow Rate FiO2 12/22/16 12:39 97.9 79 15 101/64 100 Room Air 12/22/16 08:39 98.1 78 16 115/63 100 Room Air 12/22/16 04:00 98.6 74 17 119/72 100 Room Air 12/22/16 00:00 98.2 80 19 120/75 100 Room Air 12/21/16 20:00 98.1 88 19 123/77 95 Room Air 12/21/16 19:45 96 Nasal Cannula 1.0 24 12/21/16 19:45 Nasal Cannula 1.0 24 12/21/16 16:27 98.3 82 24 115/70 97 Nasal Cannula 2.0 Intake and Output 12/21/16 12/22/16 19:00 07:00 Intake Total 1152.5 ml 137.5 ml Balance 1152.5 ml 137.5 ml Intake Oral 960 ml IV Total 192.5 ml 137.5 ml # Voids 3 2 # Bowel Movements 4 General Appearance: cachetic HEENT: normocephalic, atraumatic Respiratory/Chest: chest wall non-tender, lungs clear Abdomen: normal bowel sounds, soft, non tender Genitourinary: normal external genitalia Extremities: no clubbing Skin: no rash Microbiology Date/Time Source Procedure Growth Status 12/21/16 10:00 Stool Clostridium difficile Toxin Assay - Final Complete Laboratory Tests 12/22/16 05:50: White Blood Count 14.0H, Red Blood Count 4.20, Hemoglobin 11.2L, Hematocrit 35.8L, Mean Corpuscular Volume 85, Mean Corpuscular Hemoglobin 26.8L, Mean Corpuscular Hemoglobin Concent 31.4L, Red Cell Distribution Width 16.1H, Platelet Count 385, Mean Platelet Volume 6.9, Neutrophils (%) (Auto) 60.6, Lymphocytes (%) (Auto) 28.0, Monocytes (%) (Auto) 9.1, Eosinophils (%) (Auto) 1.9, Basophils (%) (Auto) 0.4, Sodium Level 137, Potassium Level 3.8, Chloride Level 101, Carbon Dioxide Level 26, Anion Gap 10, Blood Urea Nitrogen 28H, Creatinine 0.9, Estimat Glomerular Filtration Rate > 60, Glucose Level 102, Calcium Level 9.4, TB Test (T-Spot) [Pending], TB Test Nil Control (T-Spot) [ Pending], TB Test Panel A (T-Spot) [Pending], TB Test Panel B (T-Spot) [Pending] , TB Test Positive Control (T-Spot) [Pending] Current Medications Medications (Trade) Dose Ordered Sig/Vaibhav Route PRN Reason Start Time Stop Time Status Last Admin Dose Admin Albuterol/ Ipratropium (DuoNeb 0.5-3(2.5)mg/3ml) 3 ml Q4H PRN HHN dyspnea 12/18/16 15:00 12/23/16 14:59 Aspirin (ASA) 81 mg DAILY ORAL 12/18/16 21:00 01/17/17 20:59 12/22/16 08:11 Atorvastatin Calcium (Lipitor) 40 mg BEDTIME ORAL 12/18/16 21:00 01/17/17 20:59 12/21/16 21:00 Azithromycin (Zithromax) 250 mg Q24H ORAL 12/19/16 09:00 12/26/16 08:59 12/22/16 08:12 Bupropion HCl (Wellbutrin) 100 mg DAILY ORAL 12/19/16 09:00 01/18/17 08:59 12/22/16 08:11 Dextrose (Dextrose 50%) STAT PRN IV Hypoglycemia 12/19/16 12:00 01/18/17 11:59 Duloxetine HCl (Cymbalta) 60 mg DAILY ORAL 12/19/16 09:00 01/18/17 08:59 12/22/16 08:12 Heparin Sodium (Porcine) (Heparin 5000 units/ml) 5,000 units EVERY 12 HOURS SUBQ 12/18/16 21:00 01/17/17 20:59 12/22/16 08:13 Ketorolac Tromethamine (Toradol 30mg) 30 mg Q8H PRN IV Moderate Pain (Pain Scale 4-6) 12/18/16 15:00 12/23/16 14:59 Levetiracetam (Keppra) 1,500 mg Q12HR ORAL 12/18/16 21:00 01/17/17 20:59 12/22/16 08:12 Loperamide HCl (Imodium) 2 mg Q4H PRN ORAL Diarrhea 12/18/16 15:00 01/17/17 14:59 Lorazepam (Ativan 2mg/ml 1ml) 0.5 mg Q4H PRN IV For Anxiety 12/18/16 15:00 12/25/16 14:59 Mesalamine (Asacol) 800 mg THREE TIMES A DAY ORAL 12/18/16 18:00 01/17/17 17:59 12/22/16 14:43 Methylprednisolone Sodium Succinate (Solu-MEDROL) 40 mg DAILY IVP 12/21/16 09:00 01/20/17 08:59 12/22/16 08:11 Mirtazapine (Remeron) 30 mg BEDTIME ORAL 12/18/16 21:00 01/17/17 20:59 12/21/16 21:00 Morphine Sulfate (Morphine Sulfate) 2 mg Q4H PRN IVP Severe Pain (Pain Scale 7-10) 12/22/16 08:00 12/29/16 07:59 12/22/16 08:12 Nitroglycerin (Ntg) 0.4 mg Q5M X 3 DOSES PRN SL Prn Chest Pain 12/18/16 15:00 01/17/17 14:59 Ondansetron HCl (Zofran) 4 mg Q6H PRN IVP Nausea & Vomiting 12/18/16 15:00 01/17/17 14:59 Piperacillin Sod/ Tazobactam Sod/ Dextrose (Zosyn/D5W) 110 ml @ 27.5 mls/hr Q8HR@0000,0800,1600 IVPB 12/18/16 16:00 12/25/16 15:59 12/22/16 08:11 Promethazine HCl/ Codeine (Phenergan with Codeine) 5 ml Q6H PRN ORAL For Cough 12/18/16 15:00 01/17/17 14:59 Quetiapine Fumarate (SEROquel) 100 mg BEDTIME ORAL 12/18/16 21:00 01/17/17 20:59 12/21/16 21:01 Theophylline (Erwin-Dur) 100 mg EVERY 12 HOURS ORAL 12/18/16 21:00 01/17/17 20:59 12/22/16 08:14 Trazodone HCl (Desyrel) 100 mg HSPRN PRN ORAL Insomnia 12/18/16 21:00 01/17/17 20:59 12/21/16 23:04 DWAYNE SOTO December 22, 2016 15:48
== END 2016-12-22 16:01 | disposition home health service (06) | DRG 871 ==
LOC: EMR 10:36 → 2E 10:56 → EDBEDREQ 13:26 → 4E 12-18 14:36
DX: A41.9 Sepsis, unspecified organism (principal); J18.9 Pneumonia, unspecified organism; J84.9 Interstitial pulmonary disease, unspecified; J44.1 Chronic obstructive pulmonary disease with (acute) exacerbation; K50.90 Crohn's disease, unspecified, without complications; K86.1 Other chronic pancreatitis; F31.81 Bipolar II disorder; F17.200 Nicotine dependence, unspecified, uncomplicated; Z86.73 Personal history of transient ischemic attack (TIA), and cerebral infarction without residual deficits; M47.896 Other spondylosis, lumbar region; M51.26 Other intervertebral disc displacement, lumbar region
CPT/HCPCS: 36415; 71010; 74177; 80048; 80053; 80061; 80299; 81003; 82550; 82553; 83605; 83690; 83735; 83880; 84100; 84484; 85007; 85025; 85651; 86140; 86480; 87040; 87045; 87324; 93005; 94640; 94664; 94760; 97803; J8499

== ENCOUNTER 2017-04-28 13:51 | Inpatient (IN) | payer MEDICARE, OTHER ==
[~2017-04-28] VITALS: Ht 167.6 cm; Wt 59.0 kg
[~2017-04-28 13:51] MED LIST changes: +ASPIR 8181 MG ORAL; +AZITHROMYCIN250 MG ORAL; +LIPITOR40 MG ORAL; +NKM; +PROMETHAZINE V237 ML ORAL; +THEOPHYLLINE A100 MG ORAL; +UNOBMED
--- NOTE | 2017-04-28 14:07 | Emergency Room Report ---
History of Present Illness General Chief Complaint: Weakness Source: Patient Present Illness HPI Patient is a 66-year-old female who presented after increased generalized weakness.. Patient states that she been having increased feeling like his pass out associated with increased nausea. Patient reports having prior history of Crohn's disease. She states that she had recently had labs drawn was noted to have a low potassium at that time. Patient denies any diarrhea. she had not been having any fever. Allergies: Coded Allergies: No Known Allergies (Verified , 05/21/06) Patient History Past Medical History: see triage record Reviewed Nursing Documentation: PMH: Agreed, PSxH: Agreed Nursing Documentation-PMH Hx Cardiac Problems: Yes Hx Hypertension: No Hx Pacemaker: No Hx Asthma: Yes Hx COPD: Yes Hx Diabetes: No Hx Cancer: No Hx Gastrointestinal Problems: Yes Hx Dialysis: No Hx Neurological Problems: Yes Hx Cerebrovascular Accident: Yes - 2004 Hx Seizures: Yes Hx Epilepsy: Yes Hx Vertigo: Yes Hx Dizziness: Yes Hx Syncope: Yes Hx Headaches: Yes Hx Weakness: Yes Hx Fatigue: Yes Review of Systems All Other Systems: negative except mentioned in HPI Physical Exam Sp02 EP Interpretation: reviewed, normal General Appearance: normal inspection, well appearing, no apparent distress, alert, GCS 15 Head: atraumatic ENT: normal ENT inspection, hearing grossly normal, normal voice Neck: normal inspection, full range of motion, supple, no bony tend Respiratory: normal inspection, lungs clear, normal breath sounds, no respiratory distress, no retraction, no wheezing Cardiovascular #1: normal inspection, regular rate, rhythm, no edema Gastrointestinal: normal inspection, normal bowel sounds, non tender, soft, no guarding, no hernia Genitourinary: no CVA tenderness Musculoskeletal: normal inspection, back normal, normal range of motion Neurologic: normal inspection, alert, oriented x3, responsive, corn sheller III-XII nml as tested, motor strength/tone normal, speech normal Psychiatric: normal inspection, judgement/insight normal, mood/affect normal Skin: normal inspection, normal color, no rash Medical Decision Making Diagnostic Impression: Primary Impression: Crohn's disease Additional Impression: CHF (congestive heart failure) ER Course Patient presented for generalized weakness.Patient presented for generalized weakness. Differential diagnosis included was not limited to anemia, urinary tract infection, electrolyte abnormality, hypothyroidism, myocardial infarction , myasthenia gravis, dehydration, among others. Because of complexity of patient's case laboratory testing and imaging studies were ordered.I laboratory testing was notable for elevated TSH. The patient was noted to have a generalized weakness without any focal deficits. Dr. Barber Dial was contacted for inpatient management. Labs Test 04/28/17 14:38 04/28/17 15:55 White Blood Count 11.1 K/UL (4.8-10.8) Red Blood Count 3.87 M/UL (4.20-5.40) Hemoglobin 10.4 G/DL (12.0-16.0) Hematocrit 33.8 % (37.0-47.0) Mean Corpuscular Volume 87 FL (80-99) Mean Corpuscular Hemoglobin 26.8 PG (27.0-31.0) Mean Corpuscular Hemoglobin Concent 30.6 G/DL (32.0-36.0) Red Cell Distribution Width 15.8 % (11.6-14.8) Platelet Count 383 K/UL (150-450) Mean Platelet Volume 7.5 FL (6.5-10.1) Neutrophils (%) (Auto) 54.2 % (45.0-75.0) Lymphocytes (%) (Auto) 35.2 % (20.0-45.0) Monocytes (%) (Auto) 8.2 % (1.0-10.0) Eosinophils (%) (Auto) 1.4 % (0.0-3.0) Basophils (%) (Auto) 1.1 % (0.0-2.0) Prothrombin Time 10.9 SEC (9.30-11.50) Prothromb Time International Ratio 1.0 (0.9-1.1) Activated Partial Thromboplast Time 26 SEC (23-33) D-Dimer 1324 ng/mL (<500) Sodium Level 137 mEQ/L (135-145) Potassium Level 3.9 mEQ/L (3.4-4.9) Chloride Level 100 mEQ/L (98-107) Carbon Dioxide Level 28 mEQ/L (20-30) Anion Gap 9 (5-15) Blood Urea Nitrogen 24 mg/dL (7-23) Creatinine 0.7 mg/dL (0.5-0.9) Estimat Glomerular Filtration Rate > 60 mL/min (>60) Glucose Level 88 mg/dL (74-106) Calcium Level 9.1 mg/dL (8.6-10.2) Total Bilirubin < 0.2 mg/dL (0.0-1.2) Aspartate Amino Transf (AST/SGOT) 15 U/L (5-40) Alanine Aminotransferase (ALT/SGPT) 10 U/L (3-33) Alkaline Phosphatase 81 U/L (35-104) Troponin I < 0.30 ng/mL (<=0.30) Pro-B-Type Natriuretic Peptide 589 pg/mL (0-125) Total Protein 8.2 g/dL (6.6-8.7) Albumin 3.1 g/dL (3.5-5.2) Globulin 5.1 g/dL Albumin/Globulin Ratio 0.6 (1.0-2.7) Lipase 23 U/L (< 60) Thyroid Stimulating Hormone (TSH) 61.090 uIU/mL (0.300-4.500) EKG Diagnostic Results Rate: normal Rhythm: NSR ST Segments: no acute changes Status: unchanged Disposition: ADMITTED INPATIENT Condition: Serious Anton Salter Apr 28, 2017 14:07
[2017-04-28] MEDS ORDERED: Sodium Chloride 500ML 500 ML IVPB ONE (14:15)
[2017-04-28] MEDS ORDERED: Meclizine 25mg tab ORAL ONE (14:15)
[2017-04-28 14:20] VITALS: BP 108/71
[2017-04-28 15:08] LABS: BASOPHILS % (AUTO) 1.1 % (0.0-2.0); EOSINOPHILS % (AUTO) 1.4 % (0.0-3.0); LYMPHOCYTES % (AUTO) 35.2 % (20.0-45.0); MEAN CORPUSCULAR HEMOGLOBIN 26.8 PG (27.0-31.0); MEAN CORPUSCULAR HGB CONC 30.6 G/DL (32.0-36.0); MEAN CORPUSCULAR VOLUME 87 FL (80-99); MEAN PLATELET VOLUME 7.5 FL (6.5-10.1); MONOCYTES % (AUTO) 8.2 % (1.0-10.0); NEUTROPHILS % (AUTO) 54.2 % (45.0-75.0); PLATELET COUNT 383 K/UL (150-450); RED BLOOD COUNT 3.87 M/UL (4.20-5.40); RED CELL DISTRIBUTION WIDTH 15.8 % (11.6-14.8); WHITE BLOOD COUNT 11.1 K/UL (4.8-10.8)
[2017-04-28 15:11] LABS: PROTHROMBIN TIME 10.9 SEC (9.30-11.50)
[2017-04-28 15:30] VITALS: BP 113/65
[2017-04-28] MEDS ORDERED: Aspirin Baby 81mg ORAL ONE (15:30)
[2017-04-28] MEDS ORDERED: Enoxaparin 60mg Inj SUBQ ONE (15:45)
[2017-04-28] MEDS ORDERED: D5NS 1,000 ML IV SCH (15:57)
[2017-04-28] MEDS ORDERED: Miralax 17gm pkt ORAL PRN (16:00)
[2017-04-28] MEDS ORDERED: Nitroglycerin Subl 0.4mg tab SL PRN (16:00)
[2017-04-28] MEDS ORDERED: Morphine Sulfate 2mg/ml Inj IVP PRN (16:00)
[2017-04-28] MEDS ORDERED: Mylanta II UD 30ml ORAL PRN (16:00)
[2017-04-28 16:29] LABS: ALANINE AMINOTRANSFERASE 10 U/L (3-33); ALBUMIN/GLOBULIN RATIO 0.6 (1.0-2.7); ANION GAP 9 (5-15); ASPARTATE AMINO TRANSFERASE 15 U/L (5-40); CALCIUM 9.1 mg/dL (8.6-10.2); CARBON DIOXIDE 28 mEQ/L (20-30); CHLORIDE 100 mEQ/L (98-107); CREATININE 0.7 mg/dL (0.5-0.9); GLOMERULAR FILTRATION RATE > 60 mL/min (>60); HEMOLYSIS 2; LIPASE 23 U/L (< 60); POTASSIUM 3.9 mEQ/L (3.4-4.9); SODIUM 137 mEQ/L (135-145); TOTAL PROTEIN 8.2 g/dL (6.6-8.7)
[2017-04-28 16:30] VITALS: BP 115/66
[2017-04-28 16:31] LABS: TROPONIN I < 0.30 ng/mL (<=0.30)
[2017-04-28 17:30] VITALS: BP 122/74
[2017-04-28 18:06] VITALS: BP 101/68
[2017-04-28] MEDS: D5NS 1,000 ML IV SCH (18:39)
--- NOTE | 2017-04-28 19:56 | Cardiology Progress Note ---
Assessment/Plan Assessment/Plan The patient is seen and examined, full consult note is dictated. Objective Last 24 Hour Vital Signs Date Time Temp Pulse Resp B/P (MAP) Pulse Ox O2 Delivery O2 Flow Rate FiO2 04/28/17 18:06 97.8 72 20 101/68 99 Room Air 04/28/17 17:30 77 16 122/74 95 Room Air 04/28/17 17:30 77 16 122/74 95 Room Air 04/28/17 16:30 77 15 115/66 95 Room Air 04/28/17 15:30 79 10 113/65 95 Room Air 04/28/17 14:20 98.2 85 19 108/71 95 Room Air 04/28/17 14:00 97.2 92 18 114/69 94 Room Air Intake and Output 04/28/17 04/29/17 19:00 07:00 Intake Total 350 ml Balance 350 ml Intake Oral 100 ml IV Total 250 ml Laboratory Tests Test 04/28/17 14:38 04/28/17 15:55 White Blood Count 11.1 K/UL (4.8-10.8) H Red Blood Count 3.87 M/UL (4.20-5.40) L Hemoglobin 10.4 G/DL (12.0-16.0) L Hematocrit 33.8 % (37.0-47.0) L Mean Corpuscular Volume 87 FL (80-99) Mean Corpuscular Hemoglobin 26.8 PG (27.0-31.0) L Mean Corpuscular Hemoglobin Concent 30.6 G/DL (32.0-36.0) L Red Cell Distribution Width 15.8 % (11.6-14.8) H Platelet Count 383 K/UL (150-450) Mean Platelet Volume 7.5 FL (6.5-10.1) Neutrophils (%) (Auto) 54.2 % (45.0-75.0) Lymphocytes (%) (Auto) 35.2 % (20.0-45.0) Monocytes (%) (Auto) 8.2 % (1.0-10.0) Eosinophils (%) (Auto) 1.4 % (0.0-3.0) Basophils (%) (Auto) 1.1 % (0.0-2.0) Prothrombin Time 10.9 SEC (9.30-11.50) Prothromb Time International Ratio 1.0 (0.9-1.1) Activated Partial Thromboplast Time 26 SEC (23-33) D-Dimer 1324 ng/mL (<500) H Sodium Level 137 mEQ/L (135-145) Potassium Level 3.9 mEQ/L (3.4-4.9) Chloride Level 100 mEQ/L (98-107) Carbon Dioxide Level 28 mEQ/L (20-30) Anion Gap 9 (5-15) Blood Urea Nitrogen 24 mg/dL (7-23) H Creatinine 0.7 mg/dL (0.5-0.9) Estimat Glomerular Filtration Rate > 60 mL/min (>60) Glucose Level 88 mg/dL (74-106) Calcium Level 9.1 mg/dL (8.6-10.2) Total Bilirubin < 0.2 mg/dL (0.0-1.2) Aspartate Amino Transf (AST/SGOT) 15 U/L (5-40) Alanine Aminotransferase (ALT/SGPT) 10 U/L (3-33) Alkaline Phosphatase 81 U/L (35-104) Troponin I < 0.30 ng/mL (<=0.30) Pro-B-Type Natriuretic Peptide 589 pg/mL (0-125) H Total Protein 8.2 g/dL (6.6-8.7) Albumin 3.1 g/dL (3.5-5.2) L Globulin 5.1 g/dL Albumin/Globulin Ratio 0.6 (1.0-2.7) L Lipase 23 U/L (< 60) Thyroid Stimulating Hormone (TSH) 61.090 uIU/mL (0.300-4.500) DEX ARMANDO Apr 28, 2017 19:56
[2017-04-28 21:00] VITALS: BP 100/63
[2017-04-29 00:07] VITALS: BP 98/62
[2017-04-29] MEDS: D5NS 1,000 ML IV SCH ×2 (03:58→16:56)
[2017-04-29 04:30] VITALS: BP 98/58
[2017-04-29 08:02] VITALS: BP 111/68
--- NOTE | 2017-04-29 08:05 | General Progress Note ---
Progress Note Progress Note [id number] full note dictated FAMILIA SHEPHERD Apr 29, 2017 08:05
[2017-04-29] MEDS: Mesalamine 400mg cap ORAL SCH ×3 (08:41→18:03)
[2017-04-29] MEDS ORDERED: Pantoprazole Inj IVP SCH (09:00)
[2017-04-29] MEDS ORDERED: Flu Vaccine Quadrivalent 0.5ml IM ONE (10:30)
[2017-04-29 10:34] LABS: BASOPHILS % (AUTO) 0.7 % (0.0-2.0); EOSINOPHILS % (AUTO) 1.4 % (0.0-3.0); LYMPHOCYTES % (AUTO) 25.8 % (20.0-45.0); MEAN CORPUSCULAR HEMOGLOBIN 27.4 PG (27.0-31.0); MEAN CORPUSCULAR HGB CONC 31.1 G/DL (32.0-36.0); MEAN CORPUSCULAR VOLUME 88 FL (80-99); MEAN PLATELET VOLUME 6.7 FL (6.5-10.1); MONOCYTES % (AUTO) 6.7 % (1.0-10.0); NEUTROPHILS % (AUTO) 65.5 % (45.0-75.0); PLATELET COUNT 366 K/UL (150-450); RED BLOOD COUNT 4.34 M/UL (4.20-5.40); RED CELL DISTRIBUTION WIDTH 15.5 % (11.6-14.8); WHITE BLOOD COUNT 8.6 K/UL (4.8-10.8)
[2017-04-29 10:40] LABS: PROTHROMBIN TIME 10.9 SEC (9.30-11.50)
[2017-04-29 10:49] LABS: ALANINE AMINOTRANSFERASE 9 U/L (3-33); ALBUMIN/GLOBULIN RATIO 0.5 (1.0-2.7); AMYLASE 72 U/L (10-110); ANION GAP 8 (5-15); ASPARTATE AMINO TRANSFERASE 15 U/L (5-40); CALCIUM 9.3 mg/dL (8.6-10.2); CARBON DIOXIDE 29 mEQ/L (20-30); CHLORIDE 103 mEQ/L (98-107); CREATININE 0.7 mg/dL (0.5-0.9); GLOMERULAR FILTRATION RATE > 60 mL/min (>60); HEMOLYSIS 0; LIPASE 17 U/L (< 60); POTASSIUM 4.3 mEQ/L (3.4-4.9); SODIUM 140 mEQ/L (135-145); TOTAL PROTEIN 8.4 g/dL (6.6-8.7)
[2017-04-29 11:21] LABS: APPEARANCE,URINE CLEAR; KETONES,URINE NEGATIVE (NEGATIVE); LEUKOCYTE ESTERASE ,URINE 1+ (NEGATIVE); NITRITE,URINE NEGATIVE (NEGATIVE); PH,URINE 8 (4.5-8.0); PROTEIN,URINE NEGATIVE (NEGATIVE); UROBILINOGEN,URINE NORMAL MG/DL (0.0-1.0)
--- NOTE | 2017-04-29 11:31 | Diagnostic Imaging Report ---
Indication: Blunt trauma to the pelvis. Pelvic pain Findings: Single AP view of the pelvis was performed. No obvious acute fracture is identified on the exam. The bones are osteopenic. Surgical clips and sutures noted in the pelvis and lower abdomen as well as abdominal wall mesh. Analgesic pain pump noted in the left lower quadrant of abdomen. Impression: No acute injury identified
--- NOTE | 2017-04-29 11:31 | Consultation ---
History of Present Illness General Date patient seen: Apr 28, 2017 Chief Complaint: Dizziness Referring physician: Dr Dial Reason for Consultation: inpatient management Present Illness HPI 66-year-old female with hx of chronic pain, Crohn disease presented by paramedics after increased generalized weakness. Patient states that she been having increased feeling like his pass out associated with increased nausea. Patient denies any diarrhea. she had not been having any fever. she is admitted for presyncopal episode Allergies: Coded Allergies: No Known Allergies (Verified , 05/21/06) Medication History Scheduled Aspirin* (Aspir 81*), 81 MG ORAL DAILY, (Reported) Atorvastatin Calcium* (Lipitor*), 40 MG ORAL BEDTIME, (Reported) Azithromycin* (Zithromax*), 250 MG ORAL DAILY, (Reported) Bupropion Hcl* (Bupropion Hcl*), 100 MG ORAL DAILY, (Reported) Duloxetine Hcl* (Cymbalta*), 60 MG ORAL DAILY, (Reported) Ibuprofen* (Motrin*), 800 MG ORAL THREE TIMES A DAY, (Reported) Levetiracetam* (Levetiracetam*), 1,000 MG ORAL TID, (Reported) Linaclotide (Linzess), 145 MCG PO DAILY, (Reported) Mesalamine (Pentasa), 1,000 MG ORAL TID, (Reported) Mesalamine (Asacol Hd), 800 MG ORAL THREE TIMES A DAY, (Reported) Mirtazapine* (Mirtazapine*), 30 MG ORAL BEDTIME, (Reported) Montelukast Sodium* (Montelukast Sodium*), 10 MG ORAL DAILY, (Reported) Polyethylene Glycol 3350* (Miralax*), 17 GM ORAL BEDTIME, (Reported) Quetiapine Fumarate* (Seroquel*), 100 MG ORAL BEDTIME, (Reported) Risperidone* (Risperdal*), 0.5 MG ORAL BEDTIME, (Reported) Theophylline (Theodur*), 100 MG ORAL TWICE A DAY, (Reported) Topiramate* (Topamax*), 25 MG ORAL TWICE A DAY, (Reported) Scheduled PRN Acetaminophen (Acetaminophen), 650 MG ORAL Q8H PRN for Fever/Headache/Mild Pain, (Reported) Diphenhydramine HCl (Benadryl), 25 MG PO Q6HR PRN for Itching, (Reported) Trazodone* (Trazodone*), 200 MG ORAL BEDTIME PRN for Insomnia, (Reported) Patient History Healthcare decision maker N Resuscitation status Full Code Advanced Directive on File Past Medical/Surgical History Past Medical/Surgical History: (1) Chronic pancreatitis (2) Chronic pain syndrome (3) Crohn's disease (4) COPD (chronic obstructive pulmonary disease) (5) Elevated CEA (6) IBD (inflammatory bowel disease) Review of Systems All Other Systems: negative except mentioned in HPI Physical Exam General Appearance: WD/WN, cachetic Lines, tubes and drains: peripheral, PICC HEENT: normocephalic, atraumatic Neck: non-tender, normal alignment Respiratory/Chest: lungs clear Breasts: no masses Cardiovascular/Chest: normal peripheral pulses Abdomen: normal bowel sounds, non tender Genitourinary/Rectal: normal genital exam Extremities: normal range of motion Last 24 Hour Vital Signs Date Time Temp Pulse Resp B/P (MAP) Pulse Ox O2 Delivery O2 Flow Rate FiO2 04/29/17 08:02 97.7 74 18 111/68 100 Room Air 04/29/17 08:00 77 04/29/17 04:30 98.0 72 20 98/58 100 Room Air 04/29/17 03:54 75 04/29/17 00:07 97.0 69 20 98/62 97 Room Air 04/28/17 23:52 72 04/28/17 21:00 98.0 74 20 100/63 97 Room Air 04/28/17 18:06 97.8 72 20 101/68 99 Room Air 04/28/17 18:00 72 04/28/17 17:30 77 16 122/74 95 Room Air 04/28/17 17:30 77 16 122/74 95 Room Air 04/28/17 16:30 77 15 115/66 95 Room Air 04/28/17 15:30 79 10 113/65 95 Room Air 04/28/17 14:20 98.2 85 19 108/71 95 Room Air 04/28/17 14:00 97.2 92 18 114/69 94 Room Air Intake and Output 04/29/17 04/30/17 19:00 07:00 Intake Total 570 ml Output Total 150 ml Balance 420 ml Intake Oral 570 ml Output Urine Total 150 ml Laboratory Tests Test 04/28/17 14:38 04/28/17 15:55 04/29/17 09:00 04/29/17 10:35 White Blood Count 11.1 K/UL (4.8-10.8) H 8.6 K/UL (4.8-10.8) Red Blood Count 3.87 M/UL (4.20-5.40) L 4.34 M/UL (4.20-5.40) Hemoglobin 10.4 G/DL (12.0-16.0) L 11.9 G/DL (12.0-16.0) L Hematocrit 33.8 % (37.0-47.0) L 38.2 % (37.0-47.0) Mean Corpuscular Volume 87 FL (80-99) 88 FL (80-99) Mean Corpuscular Hemoglobin 26.8 PG (27.0-31.0) L 27.4 PG (27.0-31.0) Mean Corpuscular Hemoglobin Concent 30.6 G/DL (32.0-36.0) L 31.1 G/DL (32.0-36.0) L Red Cell Distribution Width 15.8 % (11.6-14.8) H 15.5 % (11.6-14.8) H Platelet Count 383 K/UL (150-450) 366 K/UL (150-450) Mean Platelet Volume 7.5 FL (6.5-10.1) 6.7 FL (6.5-10.1) Neutrophils (%) (Auto) 54.2 % (45.0-75.0) 65.5 % (45.0-75.0) Lymphocytes (%) (Auto) 35.2 % (20.0-45.0) 25.8 % (20.0-45.0) Monocytes (%) (Auto) 8.2 % (1.0-10.0) 6.7 % (1.0-10.0) Eosinophils (%) (Auto) 1.4 % (0.0-3.0) 1.4 % (0.0-3.0) Basophils (%) (Auto) 1.1 % (0.0-2.0) 0.7 % (0.0-2.0) Prothrombin Time 10.9 SEC (9.30-11.50) 10.9 SEC (9.30-11.50) Prothromb Time International Ratio 1.0 (0.9-1.1) 1.0 (0.9-1.1) Activated Partial Thromboplast Time 26 SEC (23-33) 29 SEC (23-33) D-Dimer 1324 ng/mL (<500) H Sodium Level 137 mEQ/L (135-145) 140 mEQ/L (135-145) Potassium Level 3.9 mEQ/L (3.4-4.9) 4.3 mEQ/L (3.4-4.9) Chloride Level 100 mEQ/L (98-107) 103 mEQ/L (98-107) Carbon Dioxide Level 28 mEQ/L (20-30) 29 mEQ/L (20-30) Anion Gap 9 (5-15) 8 (5-15) Blood Urea Nitrogen 24 mg/dL (7-23) H 16 mg/dL (7-23) Creatinine 0.7 mg/dL (0.5-0.9) 0.7 mg/dL (0.5-0.9) Estimat Glomerular Filtration Rate > 60 mL/min (>60) > 60 mL/min (>60) Glucose Level 88 mg/dL (74-106) 98 mg/dL (74-106) Calcium Level 9.1 mg/dL (8.6-10.2) 9.3 mg/dL (8.6-10.2) Total Bilirubin < 0.2 mg/dL (0.0-1.2) < 0.2 mg/dL (0.0-1.2) Aspartate Amino Transf (AST/SGOT) 15 U/L (5-40) 15 U/L (5-40) Alanine Aminotransferase (ALT/SGPT) 10 U/L (3-33) 9 U/L (3-33) Alkaline Phosphatase 81 U/L (35-104) 86 U/L (35-104) Troponin I < 0.30 ng/mL (<=0.30) Pro-B-Type Natriuretic Peptide 589 pg/mL (0-125) H Total Protein 8.2 g/dL (6.6-8.7) 8.4 g/dL (6.6-8.7) Albumin 3.1 g/dL (3.5-5.2) L 3.1 g/dL (3.5-5.2) L Globulin 5.1 g/dL 5.3 g/dL Albumin/Globulin Ratio 0.6 (1.0-2.7) L 0.5 (1.0-2.7) L Lipase 23 U/L (< 60) 17 U/L (< 60) Thyroid Stimulating Hormone (TSH) 61.090 uIU/mL (0.300-4.500) Iron Level Pending Unsaturated Iron Binding Pending Amylase Level 72 U/L (10-110) Carcinoembryonic Antigen 12.2 ng/mL H CA 19-9 Antigen Pending Free Thyroxine Pending Free Triiodothyronine Pending Urine Color Yellow Urine Appearance Clear Urine pH 8 (4.5-8.0) Urine Specific [place] 1.010 (1.005-1.035) Urine Protein Negative (NEGATIVE) Urine Glucose (UA) Negative (NEGATIVE) Urine Ketones Negative (NEGATIVE) Urine Occult Blood 2+ (NEGATIVE) H Urine Nitrite Negative (NEGATIVE) Urine Bilirubin Negative (NEGATIVE) Urine Urobilinogen Normal MG/DL (0.0-1.0) Urine Leukocyte Esterase 1+ (NEGATIVE) H Urine RBC Pending Urine WBC Pending Urine Squamous Epithelial Cells Pending Urine Bacteria Pending Urine Opiates Screen Pending Urine Barbiturates Screen Pending Phencyclidine (PCP) Screen Pending Urine Amphetamines Screen Pending Urine Benzodiazepines Screen Pending Urine Cocaine Screen Pending Urine Marijuana (THC) Screen Pending Height (Feet): 5 Height (Inches): 6.00 Weight (Pounds): 130 Medications Current Medications Medications (Trade) Dose Ordered Sig/Vaibhav Route PRN Reason Start Time Stop Time Status Last Admin Dose Admin Acetaminophen (Tylenol) 650 mg Q4H PRN ORAL fever 04/28/17 16:00 05/28/17 15:59 Al Hydroxide/Mg Hydroxide (Mylanta II) 30 ml Q6H PRN ORAL dyspepsia 04/28/17 16:00 05/28/17 15:59 Dextrose (Dextrose 50%) STAT PRN IV Hypoglycemia 04/28/17 16:00 05/28/17 15:59 Dextrose/Sodium Chloride 1,000 ml @ 100 mls/hr Q10H IV 04/28/17 17:30 113/17 17:29 04/29/17 03:58 Diphenhydramine HCl (Benadryl) 25 mg Q6H PRN ORAL Itching/Pruritis 04/28/17 16:00 05/28/17 15:59 Levothyroxine Sodium (Synthroid) 75 mcg DAILY@0630 ORAL 04/30/17 06:30 05/30/17 06:29 Mesalamine (Asacol) 800 mg THREE TIMES A DAY ORAL 04/29/17 09:00 05/29/17 08:59 04/29/17 08:41 Morphine Sulfate (Morphine Sulfate) 2 mg Q4H PRN IVP severe Pain (Pain Scale 7-10) 04/28/17 16:00 05/05/17 15:59 04/29/17 08:40 Nitroglycerin (Ntg) 0.4 mg Q5M X 3 DOSES PRN SL Prn Chest Pain 04/28/17 16:00 05/28/17 15:59 Ondansetron HCl (Zofran) 4 mg Q6H PRN IVP Nausea & Vomiting 04/28/17 16:00 05/28/17 15:59 Pantoprazole (Protonix) 40 mg DAILY IVP 04/29/17 09:00 05/29/17 08:59 04/29/17 08:41 Polyethylene Glycol (Miralax) 17 gm HSPRN PRN ORAL Constipation 04/28/17 16:00 05/28/17 15:59 Temazepam (Restoril) 15 mg HSPRN PRN ORAL Insomnia 04/28/17 16:00 05/05/17 15:59 Assessment/Plan Problem List: (1) Pre-syncope ICD Codes: R55 - Syncope and collapse SNOMED: 344925586 (2) IBD (inflammatory bowel disease) ICD Codes: K63.89 - Other specified diseases of intestine SNOMED: 34209097 (3) Chronic pain syndrome ICD Codes: G89.4 - Chronic pain syndrome SNOMED: 236396015 (4) Chronic pancreatitis ICD Codes: K86.1 - Other chronic pancreatitis SNOMED: 866612660 (5) COPD (chronic obstructive pulmonary disease) ICD Codes: J44.9 - Chronic obstructive pulmonary disease, unspecified SNOMED: 66592485 (6) Interstitial lung disease ICD Codes: J84.9 - Interstitial pulmonary disease, unspecified SNOMED: 04178642, 858810873 (7) Elevated CEA ICD Codes: R97.0 - Elevated CEA SNOMED: 868267377 Assessment/Plan telemetry monitoring check electrolytes echo cardiology evaluation respiratory treatment pain management DWAYNE SOTO Apr 29, 2017 11:31
--- NOTE | 2017-04-29 11:33 | Pulmonology Progress Note ---
Assessment/Plan Problems: (1) Pre-syncope (2) COPD (chronic obstructive pulmonary disease) (3) Interstitial lung disease (4) Elevated CEA (5) Chronic pancreatitis (6) Chronic pain syndrome (7) IBD (inflammatory bowel disease) Assessment/Plan respiratory treatment check electrolytes teli records reviewed pain management Subjective ROS Limited/Unobtainable: No Interval Events: feeling better Allergies: Coded Allergies: No Known Allergies (Verified , 05/21/06) Objective Last 24 Hour Vital Signs Date Time Temp Pulse Resp B/P (MAP) Pulse Ox O2 Delivery O2 Flow Rate FiO2 04/29/17 08:02 97.7 74 18 111/68 100 Room Air 04/29/17 08:00 77 04/29/17 04:30 98.0 72 20 98/58 100 Room Air 04/29/17 03:54 75 04/29/17 00:07 97.0 69 20 98/62 97 Room Air 04/28/17 23:52 72 04/28/17 21:00 98.0 74 20 100/63 97 Room Air 04/28/17 18:06 97.8 72 20 101/68 99 Room Air 04/28/17 18:00 72 04/28/17 17:30 77 16 122/74 95 Room Air 04/28/17 17:30 77 16 122/74 95 Room Air 04/28/17 16:30 77 15 115/66 95 Room Air 04/28/17 15:30 79 10 113/65 95 Room Air 04/28/17 14:20 98.2 85 19 108/71 95 Room Air 04/28/17 14:00 97.2 92 18 114/69 94 Room Air Intake and Output 04/29/17 04/30/17 19:00 07:00 Intake Total 570 ml Output Total 150 ml Balance 420 ml Intake Oral 570 ml Output Urine Total 150 ml General Appearance: WD/WN HEENT: normocephalic, atraumatic Respiratory/Chest: chest wall non-tender, lungs clear Breasts: no masses Cardiovascular: normal peripheral pulses, regularly irregular Abdomen: normal bowel sounds, soft, non tender, no scars Skin: no rash Laboratory Tests 04/28/17 14:38: White Blood Count 11.1H, Red Blood Count 3.87L, Hemoglobin 10.4L, Hematocrit 33.8L, Mean Corpuscular Volume 87, Mean Corpuscular Hemoglobin 26.8L, Mean Corpuscular Hemoglobin Concent 30.6L, Red Cell Distribution Width 15.8H, Platelet Count 383, Mean Platelet Volume 7.5, Neutrophils (%) (Auto) 54.2, Lymphocytes (%) (Auto) 35.2, Monocytes (%) (Auto) 8.2, Eosinophils (%) (Auto) 1.4, Basophils (%) (Auto) 1.1, Prothrombin Time 10.9, Prothromb Time International Ratio 1.0, Activated Partial Thromboplast Time 26 04/28/17 15:55: D-Dimer 1324H, Sodium Level 137, Potassium Level 3.9, Chloride Level 100, Carbon Dioxide Level 28, Anion Gap 9, Blood Urea Nitrogen 24H, Creatinine 0.7, Estimat Glomerular Filtration Rate > 60, Glucose Level 88, Calcium Level 9.1, Total Bilirubin < 0.2, Aspartate Amino Transf (AST/SGOT) 15, Alanine Aminotransferase (ALT/SGPT) 10, Alkaline Phosphatase 81, Troponin I < 0.30, Pro- B-Type Natriuretic Peptide 589H, Total Protein 8.2, Albumin 3.1L, Globulin 5.1, Albumin/Globulin Ratio 0.6L, Lipase 23, Thyroid Stimulating Hormone (TSH) 61.090H 04/29/17 09:00: White Blood Count 8.6, Red Blood Count 4.34, Hemoglobin 11.9L, Hematocrit 38.2, Mean Corpuscular Volume 88, Mean Corpuscular Hemoglobin 27.4, Mean Corpuscular Hemoglobin Concent 31.1L, Red Cell Distribution Width 15.5H, Platelet Count 366 , Mean Platelet Volume 6.7, Neutrophils (%) (Auto) 65.5, Lymphocytes (%) (Auto) 25.8, Monocytes (%) (Auto) 6.7, Eosinophils (%) (Auto) 1.4, Basophils (%) (Auto ) 0.7, Prothrombin Time 10.9, Prothromb Time International Ratio 1.0, Activated Partial Thromboplast Time 29, Sodium Level 140, Potassium Level 4.3, Chloride Level 103, Carbon Dioxide Level 29, Anion Gap 8, Blood Urea Nitrogen 16, Creatinine 0.7, Estimat Glomerular Filtration Rate > 60, Glucose Level 98, Calcium Level 9.3, Total Bilirubin < 0.2, Aspartate Amino Transf (AST/SGOT) 15, Alanine Aminotransferase (ALT/SGPT) 9, Alkaline Phosphatase 86, Total Protein 8.4, Albumin 3.1L, Globulin 5.3, Albumin/Globulin Ratio 0.5L, Lipase 17, Iron Level 34L, Total Iron Binding Capacity 275, Percent Iron Saturation 12L, Unsaturated Iron Binding 241, Amylase Level 72, Carcinoembryonic Antigen 12.2H, CA 19-9 Antigen [Pending], Free Thyroxine [Pending], Free Triiodothyronine [ Pending] 04/29/17 10:35: Urine Color Yellow, Urine Appearance Clear, Urine pH 8, Urine Specific [place] 1.010, Urine Protein Negative, Urine Glucose (UA) Negative, Urine Ketones Negative, Urine Occult Blood 2+H, Urine Nitrite Negative, Urine Bilirubin Negative, Urine Urobilinogen Normal, Urine Leukocyte Esterase 1+H, Urine RBC [ Pending], Urine WBC [Pending], Urine Squamous Epithelial Cells [Pending], Urine Bacteria [Pending], Urine Opiates Screen [Pending], Urine Barbiturates Screen [ Pending], Phencyclidine (PCP) Screen [Pending], Urine Amphetamines Screen [ Pending], Urine Benzodiazepines Screen [Pending], Urine Cocaine Screen [Pending] , Urine Marijuana (THC) Screen [Pending] Current Medications Medications (Trade) Dose Ordered Sig/Vaibhav Route PRN Reason Start Time Stop Time Status Last Admin Dose Admin Acetaminophen (Tylenol) 650 mg Q4H PRN ORAL fever 04/28/17 16:00 05/28/17 15:59 Al Hydroxide/Mg Hydroxide (Mylanta II) 30 ml Q6H PRN ORAL dyspepsia 04/28/17 16:00 05/28/17 15:59 Dextrose (Dextrose 50%) STAT PRN IV Hypoglycemia 04/28/17 16:00 05/28/17 15:59 Dextrose/Sodium Chloride 1,000 ml @ 100 mls/hr Q10H IV 04/28/17 17:30 05/28/17 17:29 04/29/17 03:58 Diphenhydramine HCl (Benadryl) 25 mg Q6H PRN ORAL Itching/Pruritis 04/28/17 16:00 05/28/17 15:59 Levothyroxine Sodium (Synthroid) 75 mcg DAILY@0630 ORAL 04/30/17 06:30 05/30/17 06:29 Mesalamine (Asacol) 800 mg THREE TIMES A DAY ORAL 04/29/17 09:00 05/29/17 08:59 04/29/17 08:41 Morphine Sulfate (Morphine Sulfate) 2 mg Q4H PRN IVP severe Pain (Pain Scale 7-10) 04/28/17 16:00 05/05/17 15:59 04/29/17 08:40 Nitroglycerin (Ntg) 0.4 mg Q5M X 3 DOSES PRN SL Prn Chest Pain 04/28/17 16:00 05/28/17 15:59 Ondansetron HCl (Zofran) 4 mg Q6H PRN IVP Nausea & Vomiting 04/28/17 16:00 05/28/17 15:59 Pantoprazole (Protonix) 40 mg DAILY IVP 04/29/17 09:00 05/29/17 08:59 04/29/17 08:41 Polyethylene Glycol (Miralax) 17 gm HSPRN PRN ORAL Constipation 04/28/17 16:00 05/28/17 15:59 Temazepam (Restoril) 15 mg HSPRN PRN ORAL Insomnia 04/28/17 16:00 05/05/17 15:59 DWAYNE SOTO Apr 29, 2017 11:33
[2017-04-29 11:40] VITALS: BP 104/66
[2017-04-29 11:40] LABS: AMORPHOUS SEDIMENT,UR FEW /LPF; BACTERIA,URINE FEW /HPF; SQUAMOUS EPITHELIAL CELL,UR FEW /LPF (NONE/OCC)
--- NOTE | 2017-04-29 11:44 | Diagnostic Imaging Report ---
Indication: Dyspnea Comparison: 5 7023 A single view chest radiograph was obtained. Findings: Reticular suture markings are present bilaterally. The heart is borderline enlarged. Aorta is slightly ectatic. Bones are osteopenic. Impression: Interstitial edema suspected
[2017-04-29] MEDS ORDERED: D5NS 1,000 ML IV SCH (12:00)
[2017-04-29] MEDS ORDERED: Morphine Sulfate 4mg/ml Inj IVP PRN (12:00)
--- NOTE | 2017-04-29 12:03 | GI Initial Consult Note ---
SoniaTara Conrad N.P. 04/29/17 1203: History of Present Illness General Date patient seen: Apr 29, 2017 Time patient seen: 10:00 Reason for Hospitalization: Dizziness Referring physician: Dr Dial Reason for Consultation: CROHNS Present Illness HPI Patient is a 66-year-old female who presented after increased generalized weakness.. Patient states that she been having increased feeling like his pass out associated with increased nausea. Patient reports having prior history of Crohn's disease. She states that she had recently had labs drawn was noted to have a low potassium at that time. Patient denies any diarrhea. she had not been having any fever. GI consulted for anemia, hx of Crohn's disease. HPI as noted above. Pt seen on floor, awake A&Ox4 NAD with no active s/sx of N/VD. The patient states she feels fine today, cannot recall her previous episode of weakness. She c/o of chronic abdominal pain and has been known to have OIC. Patient has had multiple surgeries in the past for bowel obstruction as well as lysis of adhesions. She presents today with anemia and generalized weakness. She had an EGD/colonoscopy performed in 2016 which they found a gastric ulcer and crohns. Home Meds Reported Medications Theophylline (THEODUR*) 100 Mg Tab.er.12h, 100 MG ORAL TWICE A DAY, #30 TAB 0 Refills 12/22/16 Mesalamine (ASACOL HD) 800 Mg Tablet., 800 MG ORAL THREE TIMES A DAY, TAB Do not break outer coating 12/22/16 Azithromycin* (ZITHROMAX*) 250 Mg Tablet, 250 MG ORAL DAILY for 4 Days, TAB 12/22/16 Atorvastatin Calcium* (LIPITOR*) 40 Mg Tablet, 40 MG ORAL BEDTIME, #30 TAB 0 Refills 12/22/16 Aspirin* (ASPIR 81*) 81 Mg Tablet.dr, 81 MG ORAL DAILY, TAB 12/22/16 Linaclotide (LINZESS) 145 Mcg Capsule, 145 MCG PO DAILY, CAP 10/15/16 Acetaminophen (Acetaminophen) 650 Mg/20.3 Ml Solution, 650 MG ORAL Q8H Y for Fever/Headache/Mild Pain, ML 0 Refills 09/07/16 Mesalamine (PENTASA) 500 Mg Capsule.er, 1000 MG ORAL TID, #30 CAP 0 Refills 09/03/16 Montelukast Sodium* (MONTELUKAST SODIUM*) 10 Mg Tablet, 10 MG ORAL DAILY, TAB 09/03/16 Risperidone* (RISPERDAL*) 0.5 Mg Tablet, 0.5 MG ORAL BEDTIME, #30 TAB 0 Refills 09/03/16 Bupropion Hcl* (BUPROPION HCL*) 100 Mg Tablet, 100 MG ORAL DAILY, TAB 09/03/16 Trazodone* (TRAZODONE*) 150 Mg Tablet, 200 MG ORAL BEDTIME Y for Insomnia, TAB 09/03/16 Ibuprofen* (MOTRIN*) 600 Mg Tablet, 800 MG ORAL THREE TIMES A DAY, #30 TAB 0 Refills 09/03/16 Polyethylene Glycol 3350* (MIRALAX*) 17 Gm Powd.pack, 17 GM ORAL BEDTIME, PACKET 08/24/16 Topiramate* (TOPAMAX*) 25 Mg Tablet, 25 MG ORAL TWICE A DAY, #60 TAB 0 Refills 07/19/16 Quetiapine Fumarate* (SEROQUEL*) 200 Mg Tablet, 100 MG ORAL BEDTIME, TAB 07/19/16 Mirtazapine* (MIRTAZAPINE*) 15 Mg Tablet, 30 MG ORAL BEDTIME, TAB 07/19/16 Levetiracetam* (LEVETIRACETAM*) 500 Mg Tablet, 1000 MG ORAL TID, #60 TAB 0 Refills 07/19/16 Duloxetine Hcl* (CYMBALTA*) 60 Mg Capsule.dr, 60 MG ORAL DAILY, CAP 07/19/16 Diphenhydramine HCl (Benadryl) 25 Mg Capsule, 25 MG PO Q6HR Y for Itching, CAP 07/19/16 Med list reviewed/reconciled: Yes Allergies: Coded Allergies: No Known Allergies (Verified , 05/21/06) Patient History History Provided By: Patient, Medical Record PMH Narrative Hx Cardiac Problems: Yes Hx Hypertension: No Hx Pacemaker: No Hx Asthma: Yes Hx COPD: Yes Hx Diabetes: No Hx Cancer: No Hx Gastrointestinal Problems: Yes Hx Dialysis: No Hx Neurological Problems: Yes Hx Cerebrovascular Accident: Yes - 2004 Hx Seizures: Yes Hx Epilepsy: Yes Hx Vertigo: Yes Hx Dizziness: Yes Hx Syncope: Yes Hx Headaches: Yes Hx Weakness: Yes Hx Fatigue: Yes Social History: Denies: smoking, alcohol use, drug use, other Review of Systems All Other Systems: negative except mentioned in HPI Physical Exam Vital Signs Date Time Temp Pulse Resp B/P (MAP) Pulse Ox O2 Delivery O2 Flow Rate FiO2 04/28/17 14:00 97.2 92 18 114/69 94 Room Air Sp02 EP Interpretation: reviewed Labs Laboratory Tests Test 04/28/17 14:38 04/28/17 15:55 04/29/17 09:00 04/29/17 10:35 White Blood Count 11.1 K/UL (4.8-10.8) H 8.6 K/UL (4.8-10.8) Red Blood Count 3.87 M/UL (4.20-5.40) L 4.34 M/UL (4.20-5.40) Hemoglobin 10.4 G/DL (12.0-16.0) L 11.9 G/DL (12.0-16.0) L Hematocrit 33.8 % (37.0-47.0) L 38.2 % (37.0-47.0) Mean Corpuscular Volume 87 FL (80-99) 88 FL (80-99) Mean Corpuscular Hemoglobin 26.8 PG (27.0-31.0) L 27.4 PG (27.0-31.0) Mean Corpuscular Hemoglobin Concent 30.6 G/DL (32.0-36.0) L 31.1 G/DL (32.0-36.0) L Red Cell Distribution Width 15.8 % (11.6-14.8) H 15.5 % (11.6-14.8) H Platelet Count 383 K/UL (150-450) 366 K/UL (150-450) Mean Platelet Volume 7.5 FL (6.5-10.1) 6.7 FL (6.5-10.1) Neutrophils (%) (Auto) 54.2 % (45.0-75.0) 65.5 % (45.0-75.0) Lymphocytes (%) (Auto) 35.2 % (20.0-45.0) 25.8 % (20.0-45.0) Monocytes (%) (Auto) 8.2 % (1.0-10.0) 6.7 % (1.0-10.0) Eosinophils (%) (Auto) 1.4 % (0.0-3.0) 1.4 % (0.0-3.0) Basophils (%) (Auto) 1.1 % (0.0-2.0) 0.7 % (0.0-2.0) Prothrombin Time 10.9 SEC (9.30-11.50) 10.9 SEC (9.30-11.50) Prothromb Time International Ratio 1.0 (0.9-1.1) 1.0 (0.9-1.1) Activated Partial Thromboplast Time 26 SEC (23-33) 29 SEC (23-33) D-Dimer 1324 ng/mL (<500) H Sodium Level 137 mEQ/L (135-145) 140 mEQ/L (135-145) Potassium Level 3.9 mEQ/L (3.4-4.9) 4.3 mEQ/L (3.4-4.9) Chloride Level 100 mEQ/L (98-107) 103 mEQ/L (98-107) Carbon Dioxide Level 28 mEQ/L (20-30) 29 mEQ/L (20-30) Anion Gap 9 (5-15) 8 (5-15) Blood Urea Nitrogen 24 mg/dL (7-23) H 16 mg/dL (7-23) Creatinine 0.7 mg/dL (0.5-0.9) 0.7 mg/dL (0.5-0.9) Estimat Glomerular Filtration Rate > 60 mL/min (>60) > 60 mL/min (>60) Glucose Level 88 mg/dL (74-106) 98 mg/dL (74-106) Calcium Level 9.1 mg/dL (8.6-10.2) 9.3 mg/dL (8.6-10.2) Total Bilirubin < 0.2 mg/dL (0.0-1.2) < 0.2 mg/dL (0.0-1.2) Aspartate Amino Transf (AST/SGOT) 15 U/L (5-40) 15 U/L (5-40) Alanine Aminotransferase (ALT/SGPT) 10 U/L (3-33) 9 U/L (3-33) Alkaline Phosphatase 81 U/L (35-104) 86 U/L (35-104) Troponin I < 0.30 ng/mL (<=0.30) Pro-B-Type Natriuretic Peptide 589 pg/mL (0-125) H Total Protein 8.2 g/dL (6.6-8.7) 8.4 g/dL (6.6-8.7) Albumin 3.1 g/dL (3.5-5.2) L 3.1 g/dL (3.5-5.2) L Globulin 5.1 g/dL 5.3 g/dL Albumin/Globulin Ratio 0.6 (1.0-2.7) L 0.5 (1.0-2.7) L Lipase 23 U/L (< 60) 17 U/L (< 60) Thyroid Stimulating Hormone (TSH) 61.090 uIU/mL (0.300-4.500) Iron Level 34 ug/dL (37-145) L Total Iron Binding Capacity 275 ug/dL (250-400) Percent Iron Saturation 12 % (15-50) L Unsaturated Iron Binding 241 ug/dL (112-346) Amylase Level 72 U/L (10-110) Carcinoembryonic Antigen 12.2 ng/mL H CA 19-9 Antigen 52.16 U/mL (< 37) H Free Thyroxine 1.01 ng/dL (0.86-1.85) Free Triiodothyronine Pending Urine Color Yellow Urine Appearance Clear Urine pH 8 (4.5-8.0) Urine Specific [place] 1.010 (1.005-1.035) Urine Protein Negative (NEGATIVE) Urine Glucose (UA) Negative (NEGATIVE) Urine Ketones Negative (NEGATIVE) Urine Occult Blood 2+ (NEGATIVE) H Urine Nitrite Negative (NEGATIVE) Urine Bilirubin Negative (NEGATIVE) Urine Urobilinogen Normal MG/DL (0.0-1.0) Urine Leukocyte Esterase 1+ (NEGATIVE) H Urine RBC 5-10 /HPF (0 - 2) H Urine WBC 2-4 /HPF (0 - 2) Urine Squamous Epithelial Cells Few /LPF (NONE/OCC) Urine Amorphous Sediment Few /LPF (NONE) H Urine Bacteria Few /HPF (NONE) Urine Opiates Screen Positive (NEGATIVE) H Urine Barbiturates Screen Negative (NEGATIVE) Phencyclidine (PCP) Screen Negative (NEGATIVE) Urine Amphetamines Screen Negative (NEGATIVE) Urine Benzodiazepines Screen Negative (NEGATIVE) Urine Cocaine Screen Negative (NEGATIVE) Urine Marijuana (THC) Screen Negative (NEGATIVE) General Appearance: well appearing, no apparent distress, alert, thin Head: normocephalic EENT: normal ENT inspection Neck: supple Respiratory: normal breath sounds, no respiratory distress Cardiovascular: normal rate Rectal: deferred Neurologic: normal inspection, alert, oriented x3, responsive Psychiatric: normal inspection, judgement/insight normal, memory normal Skin: normal inspection, normal color, no rash Lymphatic: normal inspection, no adenopathy Current Medications Current Medications Medications (Trade) Dose Ordered Sig/Vaibhav Route PRN Reason Start Time Stop Time Status Last Admin Dose Admin Acetaminophen (Tylenol) 650 mg Q4H PRN ORAL fever 04/28/17 16:00 05/28/17 15:59 Al Hydroxide/Mg Hydroxide (Mylanta II) 30 ml Q6H PRN ORAL dyspepsia 04/28/17 16:00 05/28/17 15:59 Dextrose (Dextrose 50%) STAT PRN IV Hypoglycemia 04/28/17 16:00 05/28/17 15:59 Dextrose/Sodium Chloride 1,000 ml @ 50 mls/hr Q20H IV 04/29/17 12:00 05/29/17 11:59 Diphenhydramine HCl (Benadryl) 25 mg Q6H PRN ORAL Itching/Pruritis 04/28/17 16:00 05/28/17 15:59 Levothyroxine Sodium (Synthroid) 75 mcg DAILY@0630 ORAL 04/30/17 06:30 05/30/17 06:29 Mesalamine (Asacol) 800 mg THREE TIMES A DAY ORAL 04/29/17 09:00 05/29/17 08:59 04/29/17 08:41 Morphine Sulfate (Morphine Sulfate) 4 mg Q4H PRN IVP Severe Pain (Pain Scale 7-10) 04/29/17 12:00 05/06/17 11:59 Nitroglycerin (Ntg) 0.4 mg Q5M X 3 DOSES PRN SL Prn Chest Pain 04/28/17 16:00 05/28/17 15:59 Ondansetron HCl (Zofran) 4 mg Q6H PRN IVP Nausea & Vomiting 04/28/17 16:00 05/28/17 15:59 Pantoprazole (Protonix) 40 mg DAILY IVP 04/29/17 09:00 05/29/17 08:59 04/29/17 08:41 Polyethylene Glycol (Miralax) 17 gm HSPRN PRN ORAL Constipation 04/28/17 16:00 05/28/17 15:59 Temazepam (Restoril) 15 mg HSPRN PRN ORAL Insomnia 04/28/17 16:00 05/05/17 15:59 GI: Plan Problems: (1) History of exploratory laparotomy (2) Elevated CEA (3) IBD (inflammatory bowel disease) (4) Chronic pain syndrome (5) Crohn's disease (6) Anemia Plan s/p EGD/colon 2016 >> , crohns non functional implanted morphine pump LLQ CEA elevation >> 12 CA19-9 elevation >> 52 symptomatic treatment at this time adv to regular diet OB stool r/o GI bleed mesalamine for Crohns as inpatient, rx for Pentasa when discharged (this med not avail in the hospital) electrolyte replacement iron deficiency >> venofer x 1 pain mgmt ppi Imodium prn, consider lomotil if diarrhea persists fu labs, ESR, C-reactive Discussed with Dr. Gallegos. Thank you for this patient referral. SKYLER GALLEGOS 04/29/17 8425: History of Present Illness General Reason for Hospitalization: Dizziness Present Illness Home Meds Reported Medications Theophylline (THEODUR*) 100 Mg Tab.er.12h, 100 MG ORAL TWICE A DAY, #30 TAB 0 Refills 12/22/16 Mesalamine (ASACOL HD) 800 Mg Tablet.dr, 800 MG ORAL THREE TIMES A DAY, TAB Do not break outer coating 12/22/16 Azithromycin* (ZITHROMAX*) 250 Mg Tablet, 250 MG ORAL DAILY for 4 Days, TAB 12/22/16 Atorvastatin Calcium* (LIPITOR*) 40 Mg Tablet, 40 MG ORAL BEDTIME, #30 TAB 0 Refills 12/22/16 Aspirin* (ASPIR 81*) 81 Mg Tablet.dr, 81 MG ORAL DAILY, TAB 12/22/16 Linaclotide (LINZESS) 145 Mcg Capsule, 145 MCG PO DAILY, CAP 10/15/16 Acetaminophen (Acetaminophen) 650 Mg/20.3 Ml Solution, 650 MG ORAL Q8H Y for Fever/Headache/Mild Pain, ML 0 Refills 09/07/16 Mesalamine (PENTASA) 500 Mg Capsule.er, 1000 MG ORAL TID, #30 CAP 0 Refills 09/03/16 Montelukast Sodium* (MONTELUKAST SODIUM*) 10 Mg Tablet, 10 MG ORAL DAILY, TAB 09/03/16 Risperidone* (RISPERDAL*) 0.5 Mg Tablet, 0.5 MG ORAL BEDTIME, #30 TAB 0 Refills 09/03/16 Bupropion Hcl* (BUPROPION HCL*) 100 Mg Tablet, 100 MG ORAL DAILY, TAB 09/03/16 Trazodone* (TRAZODONE*) 150 Mg Tablet, 200 MG ORAL BEDTIME Y for Insomnia, TAB 09/03/16 Ibuprofen* (MOTRIN*) 600 Mg Tablet, 800 MG ORAL THREE TIMES A DAY, #30 TAB 0 Refills 09/03/16 Polyethylene Glycol 3350* (MIRALAX*) 17 Gm Powd.pack, 17 GM ORAL BEDTIME, PACKET 08/24/16 Topiramate* (TOPAMAX*) 25 Mg Tablet, 25 MG ORAL TWICE A DAY, #60 TAB 0 Refills 07/19/16 Quetiapine Fumarate* (SEROQUEL*) 200 Mg Tablet, 100 MG ORAL BEDTIME, TAB 07/19/16 Mirtazapine* (MIRTAZAPINE*) 15 Mg Tablet, 30 MG ORAL BEDTIME, TAB 07/19/16 Levetiracetam* (LEVETIRACETAM*) 500 Mg Tablet, 1000 MG ORAL TID, #60 TAB 0 Refills 07/19/16 Duloxetine Hcl* (CYMBALTA*) 60 Mg Capsule.dr, 60 MG ORAL DAILY, CAP 07/19/16 Diphenhydramine HCl (Benadryl) 25 Mg Capsule, 25 MG PO Q6HR Y for Itching, CAP 07/19/16 Allergies: Coded Allergies: No Known Allergies (Verified , 05/21/06) GI: Plan Plan The patient was seen and examined at bedside and all new and available data was reviewed in the patients chart. I agree with the above findings, impression and plan. (Patient seen earlier today. Signature stamp does not reflect patient encounter time.). -[facility] Apr 29, 2017 12:03 SKYLER GALLEGOS Apr 29, 2017 14:56
[2017-04-29] MEDS ORDERED: Iron Sucrose 100 MG in NS 55 ML IV ONE (13:00)
--- NOTE | 2017-04-29 15:13 | Infectious Diseases Prog Note ---
Assessment/Plan Problems: (1) UTI (urinary tract infection) Assessment & Plan: not symptomatic, will send urine culture, keep off antibiotics (2) Crohn's disease Assessment & Plan: continue meds as per GI (3) CHF (congestive heart failure) Assessment & Plan: with exacerbation, continue diuresis, cardiology is following Subjective Allergies: Coded Allergies: No Known Allergies (Verified , 05/21/06) Objective Vital Signs Last 24 Hour Vital Signs Date Time Temp Pulse Resp B/P (MAP) Pulse Ox O2 Delivery O2 Flow Rate FiO2 04/29/17 12:00 82 04/29/17 11:40 97.5 80 18 104/66 100 Room Air 04/29/17 08:02 97.7 74 18 111/68 100 Room Air 04/29/17 08:00 77 04/29/17 04:30 98.0 72 20 98/58 100 Room Air 04/29/17 03:54 75 04/29/17 00:07 97.0 69 20 98/62 97 Room Air 04/28/17 23:52 72 04/28/17 21:00 98.0 74 20 100/63 97 Room Air 04/28/17 18:06 97.8 72 20 101/68 99 Room Air 04/28/17 18:00 72 04/28/17 17:30 77 16 122/74 95 Room Air 04/28/17 17:30 77 16 122/74 95 Room Air 04/28/17 16:30 77 15 115/66 95 Room Air 04/28/17 15:30 79 10 113/65 95 Room Air Height (Feet): 5 Height (Inches): 6.00 Weight (Pounds): 130 Laboratory Tests Test 04/28/17 15:55 04/29/17 09:00 04/29/17 10:35 D-Dimer 1324 ng/mL (<500) H Sodium Level 137 mEQ/L (135-145) 140 mEQ/L (135-145) Potassium Level 3.9 mEQ/L (3.4-4.9) 4.3 mEQ/L (3.4-4.9) Chloride Level 100 mEQ/L (98-107) 103 mEQ/L (98-107) Carbon Dioxide Level 28 mEQ/L (20-30) 29 mEQ/L (20-30) Anion Gap 9 (5-15) 8 (5-15) Blood Urea Nitrogen 24 mg/dL (7-23) H 16 mg/dL (7-23) Creatinine 0.7 mg/dL (0.5-0.9) 0.7 mg/dL (0.5-0.9) Estimat Glomerular Filtration Rate > 60 mL/min (>60) > 60 mL/min (>60) Glucose Level 88 mg/dL (74-106) 98 mg/dL (74-106) Calcium Level 9.1 mg/dL (8.6-10.2) 9.3 mg/dL (8.6-10.2) Total Bilirubin < 0.2 mg/dL (0.0-1.2) < 0.2 mg/dL (0.0-1.2) Aspartate Amino Transf (AST/SGOT) 15 U/L (5-40) 15 U/L (5-40) Alanine Aminotransferase (ALT/SGPT) 10 U/L (3-33) 9 U/L (3-33) Alkaline Phosphatase 81 U/L (35-104) 86 U/L (35-104) Troponin I < 0.30 ng/mL (<=0.30) Pro-B-Type Natriuretic Peptide 589 pg/mL (0-125) H Total Protein 8.2 g/dL (6.6-8.7) 8.4 g/dL (6.6-8.7) Albumin 3.1 g/dL (3.5-5.2) L 3.1 g/dL (3.5-5.2) L Globulin 5.1 g/dL 5.3 g/dL Albumin/Globulin Ratio 0.6 (1.0-2.7) L 0.5 (1.0-2.7) L Lipase 23 U/L (< 60) 17 U/L (< 60) Thyroid Stimulating Hormone (TSH) 61.090 uIU/mL (0.300-4.500) White Blood Count 8.6 K/UL (4.8-10.8) Red Blood Count 4.34 M/UL (4.20-5.40) Hemoglobin 11.9 G/DL (12.0-16.0) L Hematocrit 38.2 % (37.0-47.0) Mean Corpuscular Volume 88 FL (80-99) Mean Corpuscular Hemoglobin 27.4 PG (27.0-31.0) Mean Corpuscular Hemoglobin Concent 31.1 G/DL (32.0-36.0) L Red Cell Distribution Width 15.5 % (11.6-14.8) H Platelet Count 366 K/UL (150-450) Mean Platelet Volume 6.7 FL (6.5-10.1) Neutrophils (%) (Auto) 65.5 % (45.0-75.0) Lymphocytes (%) (Auto) 25.8 % (20.0-45.0) Monocytes (%) (Auto) 6.7 % (1.0-10.0) Eosinophils (%) (Auto) 1.4 % (0.0-3.0) Basophils (%) (Auto) 0.7 % (0.0-2.0) Prothrombin Time 10.9 SEC (9.30-11.50) Prothromb Time International Ratio 1.0 (0.9-1.1) Activated Partial Thromboplast Time 29 SEC (23-33) Iron Level 34 ug/dL (37-145) L Total Iron Binding Capacity 275 ug/dL (250-400) Percent Iron Saturation 12 % (15-50) L Unsaturated Iron Binding 241 ug/dL (112-346) Amylase Level 72 U/L (10-110) Carcinoembryonic Antigen 12.2 ng/mL H CA 19-9 Antigen 52.16 U/mL (< 37) H Free Thyroxine 1.01 ng/dL (0.86-1.85) Free Triiodothyronine Pending Urine Color Yellow Urine Appearance Clear Urine pH 8 (4.5-8.0) Urine Specific [place] 1.010 (1.005-1.035) Urine Protein Negative (NEGATIVE) Urine Glucose (UA) Negative (NEGATIVE) Urine Ketones Negative (NEGATIVE) Urine Occult Blood 2+ (NEGATIVE) H Urine Nitrite Negative (NEGATIVE) Urine Bilirubin Negative (NEGATIVE) Urine Urobilinogen Normal MG/DL (0.0-1.0) Urine Leukocyte Esterase 1+ (NEGATIVE) H Urine RBC 5-10 /HPF (0 - 2) H Urine WBC 2-4 /HPF (0 - 2) Urine Squamous Epithelial Cells Few /LPF (NONE/OCC) Urine Amorphous Sediment Few /LPF (NONE) H Urine Bacteria Few /HPF (NONE) Urine Opiates Screen Positive (NEGATIVE) H Urine Barbiturates Screen Negative (NEGATIVE) Phencyclidine (PCP) Screen Negative (NEGATIVE) Urine Amphetamines Screen Negative (NEGATIVE) Urine Benzodiazepines Screen Negative (NEGATIVE) Urine Cocaine Screen Negative (NEGATIVE) Urine Marijuana (THC) Screen Negative (NEGATIVE) Current Medications Medications (Trade) Dose Ordered Sig/Vaibhav Route PRN Reason Start Time Stop Time Status Last Admin Dose Admin Acetaminophen (Tylenol) 650 mg Q4H PRN ORAL fever 04/28/17 16:00 05/28/17 15:59 Al Hydroxide/Mg Hydroxide (Mylanta II) 30 ml Q6H PRN ORAL dyspepsia 04/28/17 16:00 05/28/17 15:59 Dextrose (Dextrose 50%) STAT PRN IV Hypoglycemia 04/28/17 16:00 05/28/17 15:59 Dextrose/Sodium Chloride 1,000 ml @ 50 mls/hr Q20H IV 04/29/17 12:00 05/29/17 11:59 04/29/17 12:06 Diphenhydramine HCl (Benadryl) 25 mg Q6H PRN ORAL Itching/Pruritis 04/28/17 16:00 05/28/17 15:59 04/29/17 13:03 Duloxetine HCl (Cymbalta) 90 mg DAILY ORAL 04/30/17 09:00 05/30/17 08:59 Levothyroxine Sodium (Synthroid) 75 mcg DAILY@0630 ORAL 04/30/17 06:30 05/30/17 06:29 Mesalamine (Asacol) 800 mg THREE TIMES A DAY ORAL 04/29/17 09:00 05/29/17 08:59 04/29/17 13:02 Mirtazapine (Remeron) 15 mg BEDTIME ORAL 04/29/17 21:00 05/29/17 20:59 Morphine Sulfate (Morphine Sulfate) 4 mg Q4H PRN IVP Severe Pain (Pain Scale 7-10) 04/29/17 12:00 05/06/17 11:59 04/29/17 13:03 Nitroglycerin (Ntg) 0.4 mg Q5M X 3 DOSES PRN SL Prn Chest Pain 04/28/17 16:00 05/28/17 15:59 Ondansetron HCl (Zofran) 4 mg Q6H PRN IVP Nausea & Vomiting 04/28/17 16:00 05/28/17 15:59 Pantoprazole (Protonix) 40 mg DAILY IVP 04/29/17 09:00 05/29/17 08:59 04/29/17 08:41 Polyethylene Glycol (Miralax) 17 gm HSPRN PRN ORAL Constipation 04/28/17 16:00 05/28/17 15:59 Quetiapine Fumarate (SEROquel) 200 mg QHS ORAL 04/29/17 21:00 05/29/17 20:59 Temazepam (Restoril) 15 mg HSPRN PRN ORAL Insomnia 04/28/17 16:00 05/05/17 15:59 Trazodone HCl (Desyrel) 150 mg BEDTIME ORAL 04/29/17 21:00 05/29/17 20:59 Darrel Golden M.D. Apr 29, 2017 15:13
[2017-04-29] MEDS ORDERED: Miralax 17gm pkt ORAL PRN (16:00)
[2017-04-29] MEDS ORDERED: Nitroglycerin Subl 0.4mg tab SL PRN (16:00)
[2017-04-29 16:14] VITALS: BP 108/67
--- NOTE | 2017-04-29 16:15 | Consultation ---
DATE OF CONSULTATION: 04/29/2017 NEPHROLOGY CONSULTATION REFERRING PHYSICIAN: Barber Dial D.O. REASON FOR CONSULTATION: Electrolyte imbalance. History Of Present Illness: The patient is a 66-year-old female very pleasant with past medical history significant for history of seizure disorder, history of CVA in 2004, history of Crohn disease since 2004, and hypertension, who presented to emergency room complaining of generalized weakness and syncopal episode and passing out. Apparently a couple of days ago, the patient was reaching to the cabinet to pickup plate from the cabinet. She lost her consciousness and she fell on her back and she came to emergency room. In the ER, the patient was completely evaluated and found to be hypotensive, dehydrated, and consequently was admitted in the hospital. I was called for management of renal disease and electrolyte imbalance. PAST MEDICAL HISTORY: Includin. History of COPD. 2. History of seizure disorder. 3. History of CVA in 2004. 4. History of Crohn disease, which at this point is not active. PAST SURGICAL HISTORY: None. ALLERGIES: Not known drug allergies. Review Of Systems: General: She complained of generalized weakness. Denies any fever, chills, or night sweats. Head And Neck: Denies any dysphagia, odynophagia, blurry vision, headache, or neck stiffness. Pulmonary: No shortness of breath. No cough. No sputum. Cardiovascular: Denies any chest pain or palpitations. Gastrointestinal: She felt nauseated before the episode of syncope, but she denies having any nausea, vomiting, diarrhea, melena, hematemesis, or hematochezia. Genitourinary: Denies any dysuria, frequency, or hematuria. Musculoskeletal: She complained of back pain, which happened after she fall. She denies any localized weakness or numbness. PHYSICAL EXAMINATION: Vital Signs: The patient has temperature of 97, blood pressure of 101/68, and pulse rate of 72. Head And Neck: No JVP. No LAD. No thyromegaly. Extraocular movement intact. Pupils are reactive to light and accommodation. LUNGS: Clear to auscultation. CARDIAC: Regular rate and rhythm. S1 and S2 . No murmur. No rub. ABDOMEN: Soft, nontender, and nondistended. EXTREMITIES: No edema. No clubbing. No cyanosis. Laboratory And Diagnostic Data: The patient has sodium of 137, potassium 3.9, chloride 100 , bicarb 28 , BUN of 24, creatinine of 0.7, glucose of 88, and calcium of 9.1. AST of 15 and ALT of 10. BNP of 589. Total protein of 8.2, albumin of 3.1, and TSH of ____. CBC revealed WBC count of 11.1, hemoglobin of 10.4, hematocrit of 33.8, and platelet count of 388,000. There is no UA. ASSESSMENT: 1. Dehydration prerenal azotemia. 2. Hypokalemia, resolved. 3. Severe hypothyroidism. PLAN: 1. The patient to repeat the chemistry. Check the urine potassium and serum potassium for evaluation of the hypokalemia and nutritional evaluation. The patient seems to be malnourished. 2. Check the iron panel for anemia of chronic kidney disease. 3. Start the patient on levothyroxine. Again, I would like to thank, Dr. Barber Dial, for allowing me to participate in the care of this patient.. Estefani Pandey M.D. DR: FREYA JOB#: [id number] CC:
[2017-04-29] MEDS ORDERED: Mylanta II UD 30ml ORAL PRN (16:30)
[2017-04-29] MEDS: Morphine Sulfate 4mg/ml Inj IVP PRN ×2 (16:50→22:00)
[2017-04-29 20:00] VITALS: BP 96/54
[2017-04-29] MEDS ORDERED: TraZODone 100mg tab ORAL SCH ×2 (21:00)
[2017-04-29] MEDS ORDERED: QUEtiapine 200mg tab ORAL SCH ×2 (21:00)
--- NOTE | 2017-04-29 21:45 | History and Physical Report ---
DATE OF ADMISSION: 04/28/2017 TIME SEEN: At 2 p.m. ATTENDING PHYSICIAN: Barber Dial D.O. CONSULTANTS: 1. Rob Wagner M.D. 2. Pk Roche M.D. 3. Estefani Pandey M.D. 4. Ashvin Fulton M.D. 5. Mena Goncalves M.D. 6. Winston Malhotra M.D. 7. Skyler Gallegos M.D. CHIEF COMPLAINT: Weakness, lethargy, and chronic pain. Brief History: This is a 66-year-old female, who lives at home with history of Crohn, chronic pain, COPD, and seizure, presenting with increased weakness and lethargy, and diagnosed with the above, admitted to the telemetry for further care. Currently calm in bed, fairly little bit better. No complaints. Past Medical History: Weakness, Crohn, COPD, asthma, chronic pain, and seizure. PAST SURGICAL HISTORY: Abdominal surgery. Medications: Cymbalta, Synthroid, Remeron, Seroquel, Desyrel, morphine, Protonix, Asacol, Tylenol, and Zofran. ALLERGIES: Denies. Social History: Positive smoking. No alcohol. No intravenous drug abuse. FAMILY HISTORY: Noncontributory. Review Of Systems: No chest pain. Slight shortness of breath. No nausea, vomiting, or diarrhea. PHYSICAL EXAMINATION: GENERAL: Calm in bed, oriented x3, in no acute distress. Vital Signs: Temperature is 97 degrees, pulse 80, respirations 18, and blood pressure 104/66. CARDIOVASCULAR: No murmur. LUNGS: Poor exchange. ABDOMEN: Bowel sounds positive. Nontender and nondistended. EXTREMITIES: No cyanosis, clubbing, or edema. NEUROLOGIC: The patient moves all extremities, but slightly weak. Laboratory Data: Lab exam show hemoglobin 11.9, otherwise CBC is normal. BMP shows albumin 3.1. Otherwise, CA 19-9 is elevated. D-dimer is 1324. Urine toxicology is positive for opiates. Urinalysis 1+ leukocyte esterase. ASSESSMENT: 1. Weakness. 2. Crohn. 3. Urinary tract infection. 4. Chronic obstructive pulmonary disease. 5. Asthma. 6. Chronic pain. 7. Anemia. 8. Seizure. 9. Congestive heart failure. 10. Malnutrition. PLAN: 1. Continue premedications. 2. OT, PT, and dietary followup. 3. CBC and BMP in the morning. 4. Antibiotics per Infectious Disease. 5. Seizure control. 6. Blood pressure control. 7. Dr. Cordova, Dr. Bains, Dr. Malhotra, Dr. Wagner, Dr. Roche, Dr. Pandey, Dr. Fulton, Dr. Goncalves, and Dr. Gallegos to consult. Barber Dial D.O. DR: Renata JOB#: [id number] CC:
--- NOTE | 2017-04-29 22:15 | Consultation ---
DATE OF CONSULTATION: 04/29/2017 INFECTIOUS DISEASES CONSULTATION CONSULTING PHYSICIAN: Darrel Golden M.D. REQUESTING PHYSICIAN: Barber Dial D.O. Reason For Consultation: Urinary tract infection, recommendation for antibiotics therapy. History of Present Illness: The patient is a 66-year-old female, well known to me from previous admission, presented to [facility] emergency room with progressive generalized weakness. The patient had lightheadedness associated with nausea. She is well known to have prior history of Crohn disease. The patient recently had laboratories drawn as an outpatient showed low potassium. She denied any cough or phlegm. No runny nose or earache. No sore throat. No abdominal pain, nausea, vomiting, or diarrhea. No fever or chills. The patient had extensive workup in the emergency room including urinalysis, which showed possible infection, so I was consulted by the primary provider for antibiotics treatment and further management. Past Medical History: Significant for coronary artery disease, CHF, COPD with asthma, GERD, CVA, and seizure. PAST SURGICAL HISTORY: Negative. Medications: She is on Cymbalta, Synthroid, Remeron, Seroquel, trazodone, morphine, pantoprazole, mesalamine, polyethylene glycol, Zofran, Restoril, Benadryl, and Mylanta. ALLERGIES: No known drug allergy. Social History: The patient lives at home with family. No recent drugs, tobacco, or alcohol. FAMILY HISTORY: Not contributory. Review of Systems: A 14-point of system reviewed were all negative apart from the one I mentioned above in my History and Physical. PHYSICAL EXAMINATION: General: The patient is a middle-aged female, lying in bed, awake, alert, lethargic, not in acute distress. Vital Signs: Temperature 97.5 degrees, pulse 80, respirations 18, blood pressure 104/66, and saturation 100% on room air. HEENT: Normocephalic and atraumatic. Pupils reactive to light. Pale sclera. Moist oral mucosa. No exudate or thrush. NECK: Supple. No lymphadenopathy. CARDIOVASCULAR: Regular rate and rhythm. No murmur. No gallop. LUNGS: Clear bilaterally. Diminished breathing sounds at the bases. Abdomen: Soft, nontender, and nondistended. Normal bowel sounds. No hepatosplenomegaly. No ascites. EXTREMITIES: No edema. No cyanosis. SKIN: No rash. No hives. Laboratory And Diagnostic Data: Labs showed white count of 11.1, hemoglobin of 10.4, and platelet count of 383,000. BUN of 16 and creatinine of 0.7. AST of 15 and ALT of 9. Urinalysis showed +1 leukocyte esterase, WBC 2 to 4, and few bacteria. Imaging, chest x-ray showed interstitial edema. Hip and pelvic x-ray showed no acute injury. ASSESSMENT AND RECOMMENDATION: 1. Urinary tract infection. The patient is not symptomatic. We will send urine culture. Keep off antibiotics for now pending culture results. 2. Crohn's disease. Continue mesalamine as per GI. Further recommendation as per Gastroenterology team. 3. Congestive heart failure with acute exacerbation. Continue diuresis. Cardiology is following. Monitor daily weight and urine output. Thank you for the consult. Infectious Disease will continue to follow. Darrel Golden M.D. DR: YISSEL JOB#: [id number] CC:
--- NOTE | 2017-04-29 22:28 | Cardiology Progress Note ---
Assessment/Plan Assessment/Plan 1. Acute CHF, BNP is elevated, review 2D echocardiography, low dose diuretics. 2. Pre-syncope 3. Hypothyroidism 4. COPD 5. CVA 6. Crohn's disease Subjective Subjective Sinus rhythm at 80. Objective Last 24 Hour Vital Signs Date Time Temp Pulse Resp B/P (MAP) Pulse Ox O2 Delivery O2 Flow Rate FiO2 04/29/17 20:00 98.6 80 20 96/54 97 Room Air 04/29/17 16:14 98.2 81 20 108/67 96 Room Air 04/29/17 12:00 82 04/29/17 11:40 97.5 80 18 104/66 100 Room Air 04/29/17 08:02 97.7 74 18 111/68 100 Room Air 04/29/17 08:00 77 04/29/17 04:30 98.0 72 20 98/58 100 Room Air 04/29/17 03:54 75 04/29/17 00:07 97.0 69 20 98/62 97 Room Air 04/28/17 23:52 72 Intake and Output 04/29/17 04/30/17 19:00 07:00 Intake Total 1270 ml Output Total 250 ml Balance 1020 ml Intake Oral 1170 ml IV Total 100 ml Output Urine Total 250 ml 2D Echo: LVEF 55%, increased RA pressure, RVSP 41 mmHg, Grade I LVDD Laboratory Tests Test 04/29/17 09:00 04/29/17 10:35 White Blood Count 8.6 K/UL (4.8-10.8) Red Blood Count 4.34 M/UL (4.20-5.40) Hemoglobin 11.9 G/DL (12.0-16.0) L Hematocrit 38.2 % (37.0-47.0) Mean Corpuscular Volume 88 FL (80-99) Mean Corpuscular Hemoglobin 27.4 PG (27.0-31.0) Mean Corpuscular Hemoglobin Concent 31.1 G/DL (32.0-36.0) L Red Cell Distribution Width 15.5 % (11.6-14.8) H Platelet Count 366 K/UL (150-450) Mean Platelet Volume 6.7 FL (6.5-10.1) Neutrophils (%) (Auto) 65.5 % (45.0-75.0) Lymphocytes (%) (Auto) 25.8 % (20.0-45.0) Monocytes (%) (Auto) 6.7 % (1.0-10.0) Eosinophils (%) (Auto) 1.4 % (0.0-3.0) Basophils (%) (Auto) 0.7 % (0.0-2.0) Prothrombin Time 10.9 SEC (9.30-11.50) Prothromb Time International Ratio 1.0 (0.9-1.1) Activated Partial Thromboplast Time 29 SEC (23-33) Sodium Level 140 mEQ/L (135-145) Potassium Level 4.3 mEQ/L (3.4-4.9) Chloride Level 103 mEQ/L (98-107) Carbon Dioxide Level 29 mEQ/L (20-30) Anion Gap 8 (5-15) Blood Urea Nitrogen 16 mg/dL (7-23) Creatinine 0.7 mg/dL (0.5-0.9) Estimat Glomerular Filtration Rate > 60 mL/min (>60) Glucose Level 98 mg/dL (74-106) Calcium Level 9.3 mg/dL (8.6-10.2) Iron Level 34 ug/dL (37-145) L Total Iron Binding Capacity 275 ug/dL (250-400) Percent Iron Saturation 12 % (15-50) L Unsaturated Iron Binding 241 ug/dL (112-346) Total Bilirubin < 0.2 mg/dL (0.0-1.2) Aspartate Amino Transf (AST/SGOT) 15 U/L (5-40) Alanine Aminotransferase (ALT/SGPT) 9 U/L (3-33) Alkaline Phosphatase 86 U/L (35-104) Total Protein 8.4 g/dL (6.6-8.7) Albumin 3.1 g/dL (3.5-5.2) L Globulin 5.3 g/dL Albumin/Globulin Ratio 0.5 (1.0-2.7) L Amylase Level 72 U/L (10-110) Lipase 17 U/L (< 60) Carcinoembryonic Antigen 12.2 ng/mL H CA 19-9 Antigen 52.16 U/mL (< 37) H Free Thyroxine 1.01 ng/dL (0.86-1.85) Free Triiodothyronine Pending Urine Color Yellow Urine Appearance Clear Urine pH 8 (4.5-8.0) Urine Specific [place] 1.010 (1.005-1.035) Urine Protein Negative (NEGATIVE) Urine Glucose (UA) Negative (NEGATIVE) Urine Ketones Negative (NEGATIVE) Urine Occult Blood 2+ (NEGATIVE) H Urine Nitrite Negative (NEGATIVE) Urine Bilirubin Negative (NEGATIVE) Urine Urobilinogen Normal MG/DL (0.0-1.0) Urine Leukocyte Esterase 1+ (NEGATIVE) H Urine RBC 5-10 /HPF (0 - 2) H Urine WBC 2-4 /HPF (0 - 2) Urine Squamous Epithelial Cells Few /LPF (NONE/OCC) Urine Amorphous Sediment Few /LPF (NONE) H Urine Bacteria Few /HPF (NONE) Urine Opiates Screen Positive (NEGATIVE) H Urine Barbiturates Screen Negative (NEGATIVE) Phencyclidine (PCP) Screen Negative (NEGATIVE) Urine Amphetamines Screen Negative (NEGATIVE) Urine Benzodiazepines Screen Negative (NEGATIVE) Urine Cocaine Screen Negative (NEGATIVE) Urine Marijuana (THC) Screen Negative (NEGATIVE) Objective HEENT: Atraumatic, anicteric, Extraocular movement intact. Pupils are reactive to light and accommodation. NECK: No JVD, no carotid bruit, carotid upstroke 2+ B/L LUNGS: Clear to auscultation. CARDIAC: Regular rate and rhythm. Normal S1 and S2, No murmur, gallops or rubs. ABDOMEN: Soft, nontender, nondistended, no hepatosplenomegaly. EXTREMITIES: No edema, clubbing or cyanosis. DEX ARMANDO Apr 29, 2017 22:28
[2017-04-30] VITALS: BP 100/59
[2017-04-30 04:00] VITALS: BP 86/52
[2017-04-30 07:08] LABS: BASOPHILS % (AUTO) 0.7 % (0.0-2.0); EOSINOPHILS % (AUTO) 2.6 % (0.0-3.0); LYMPHOCYTES % (AUTO) 23.6 % (20.0-45.0); MEAN CORPUSCULAR HEMOGLOBIN 26.7 PG (27.0-31.0); MEAN CORPUSCULAR HGB CONC 30.8 G/DL (32.0-36.0); MEAN CORPUSCULAR VOLUME 87 FL (80-99); MEAN PLATELET VOLUME 6.2 FL (6.5-10.1); MONOCYTES % (AUTO) 12.5 % (1.0-10.0); NEUTROPHILS % (AUTO) 60.6 % (45.0-75.0); PLATELET COUNT 311 K/UL (150-450); RED BLOOD COUNT 4.07 M/UL (4.20-5.40); RED CELL DISTRIBUTION WIDTH 15.6 % (11.6-14.8); WHITE BLOOD COUNT 8.1 K/UL (4.8-10.8)
[2017-04-30 07:32] LABS: ANION GAP 10 (5-15); CALCIUM 9.3 mg/dL (8.6-10.2); CARBON DIOXIDE 26 mEQ/L (20-30); CHLORIDE 103 mEQ/L (98-107); CREATININE 0.6 mg/dL (0.5-0.9); GLOMERULAR FILTRATION RATE > 60 mL/min (>60); HEMOLYSIS 27; MAGNESIUM 1.8 mg/dL (1.7-2.5); PHOSPHORUS 4.6 mg/dL (2.5-4.8); POTASSIUM 4.2 mEQ/L (3.4-4.9); SODIUM 139 mEQ/L (135-145)
[2017-04-30 08:00] VITALS: BP 96/56
--- NOTE | 2017-04-30 08:00 | Consultation ---
DATE OF CONSULTATION: 04/29/2017 INITIAL PSYCHIATRIC EVALUATION REQUESTING PHYSICIAN: Barber Dial D.O. History Of Present Illness: This patient was admitted to the hospital secondary to non-ST segment elevated [place]. She has some confusion, but essentially she has high levels of anxiety secondary to the progression of her medical illnesses. She does have feelings of helpless, hopelessness, low energy, and poor appetite at this time. As far as her medial history, she has a history of Crohn disease, this resulted in multiple admission to [facility]. She also has a diagnosis of bipolar II disorder for which she takes psychotropic medications for. Past Medical History: Crohn disease and also generalized weakness, nausea, vomiting, hypokalemia. Medications: So anyway normally, she is on the dose of Wellbutrin and Cymbalta at mg, today I am going to actually increase that to 90 mg daily as the patient is complaining of anxiety and depression, Remeron 30 mg nightly, Seroquel 100 mg nightly, Risperdal 0.5 mg twice a day, and trazodone 150 mg nightly. So, I am going to restart this patient on her psychotropic medications at this time. ALLERGIES: She has no known drug allergies. SUBSTANCE ABUSE HISTORY: Denies drug or alcohol use. Mental Status Examination: This is a 66-year-old female with psychomotor retardation. Mood is depressed. Affect guarded and restricted. She has racing thought and slight pressured speech pattern, but denies any auditory or visual hallucinations or delusions. Denies any current suicidal or homicidal ideations. Her insight and judgement are fair. DIAGNOSIS: Bipolar II. Plan: So my plans for this patient are to treat this patient with Seroquel 200 mg nightly, Remeron 15 mg nightly to decrease anxiety, depression, and insomnia, Cymbalta mg daily, increased to 90 mg to not just control anxiety and depression, but also provide pain prophylaxis to help the patient. She is having problems with significant insomnia, so we are going to also add trazodone 150 mg nightly. She will continue to be followed by Psychiatry throughout hospital course. I would like to thank, Dr. Barber Dial, for this interesting consultation. I will be happy to follow this patient with you throughout her hospital course. Chart was reviewed and discussed with staff. The patient was seen and assessed at bedside. Mena Goncalves M.D. DR: Mine JOB#: [id number] CC:
--- NOTE | 2017-04-30 08:01 | Consultation ---
DATE OF CONSULTATION: 04/29/2017 CONSULTING PHYSICIAN: Connor Bains M.D. REQUESTING PHYSICIAN: Barber Dial D.O. REASON FOR CONSULTATION: Evaluation of anemia. IDENTIFICATION DATA: Dear Dr. Barber Dial: The patient is a pleasant 66-year-old female with past medical history significant for Crohn disease, hypertension, history of multiple infections in the past increased episode. Denies any diarrhea. Denies any fevers. Service was consulted for further evaluation. Past Medical History: Elevated CEA, , Crohn disease, chronic pancreatitis, and chronic pain syndrome. PAST SURGICAL HISTORY: . MEDICATIONS: MiraLAX, azithromycin, Keppra . ALLERGIES: No known drug allergies. Review Of Systems: Review of systems is otherwise negative except as mentioned in the history of present illness. PHYSICAL EXAMINATION: VITAL SIGNS: Reviewed. GENERAL: The patient is cachectic and ill-appearing. PULMONARY: Decreased breath sounds. CARDIOVASCULAR: Regular rate. No S3 or S4. ABDOMEN: Soft, nontender, and nondistended. EXTREMITIES: There is 1+ edema. Laboratory Data: WBC of 8.6, hemoglobin , hematocrit 38, and platelet count . CA 19-9 is pending. CEA is 12.2. ASSESSMENT AND PLAN: 1. Elevated CEA level. Recommend GI service consultation, seeing the patient today. 2. History of anemia and Crohn disease. The patient is given iron treatment. 3. Anemia iron deficiency. Reviewed patient's labs again. saturation is 12, TIBC 275, therefore it is appropriate the patient gets IV iron. 4. Elevated CA 19-9. Imaging has been reviewed with abdomen and pelvis CAT scan back in November 2016 postsurgical abdominal surgery. At this time, obtain ultrasound of the abdomen. 5. Crohn disease. Continue to closely monitor . I appreciate the consultation. Connor Bains M.D. DR: SCOTT JOB#: [id number] CC:
[2017-04-30] MEDS: Mesalamine 400mg cap ORAL SCH ×2 (08:25→12:24)
[2017-04-30] MEDS ORDERED: DULoxetine 30mg cap ORAL SCH ×2 (09:00)
[2017-04-30] MEDS ORDERED: Pantoprazole Inj IVP SCH (09:00)
--- NOTE | 2017-04-30 10:29 | General Progress Note ---
Assessment/Plan Problem List: (1) Shortness of breath (2) Seizure ICD Codes: R56.9 - Unspecified convulsions SNOMED: 95205861 (3) Asthma ICD Codes: J45.909 - Unspecified asthma, uncomplicated SNOMED: 545592315 (4) UTI (urinary tract infection) ICD Codes: N39.0 - Urinary tract infection, site not specified SNOMED: 74938442 (5) Pre-syncope ICD Codes: R55 - Syncope and collapse SNOMED: 819918776 (6) COPD (chronic obstructive pulmonary disease) ICD Codes: J44.9 - Chronic obstructive pulmonary disease, unspecified SNOMED: 25204005 (7) CHF (congestive heart failure) ICD Codes: I50.9 - Heart failure, unspecified SNOMED: 27003490 Status: stable, progressing, tolerating diet Assessment/Plan abx per id, dc home w hh Subjective Constitutional: Reports: weakness Allergies: Coded Allergies: No Known Allergies (Verified , 05/21/06) All Systems: reviewed and negative except above Subjective wants to go home Objective Last 24 Hour Vital Signs Date Time Temp Pulse Resp B/P (MAP) Pulse Ox O2 Delivery O2 Flow Rate FiO2 04/30/17 08:00 97.9 84 20 96/56 94 Room Air 04/30/17 04:00 97.9 74 20 86/52 91 Room Air 04/30/17 00:00 98.4 82 18 100/59 93 Room Air 04/29/17 20:00 98.6 80 20 96/54 97 Room Air 04/29/17 16:14 98.2 81 20 108/67 96 Room Air 04/29/17 12:00 82 04/29/17 11:40 97.5 80 18 104/66 100 Room Air Laboratory Tests 04/29/17 10:35: Urine Color Yellow, Urine Appearance Clear, Urine pH 8, Urine Specific [place] 1.010, Urine Protein Negative, Urine Glucose (UA) Negative, Urine Ketones Negative, Urine Occult Blood 2+H, Urine Nitrite Negative, Urine Bilirubin Negative, Urine Urobilinogen Normal, Urine Leukocyte Esterase 1+H, Urine RBC 5- 10H, Urine WBC 2-4, Urine Squamous Epithelial Cells Few, Urine Amorphous Sediment FewH, Urine Bacteria Few, Urine Opiates Screen PositiveH, Urine Barbiturates Screen Negative, Phencyclidine (PCP) Screen Negative, Urine Amphetamines Screen Negative, Urine Benzodiazepines Screen Negative, Urine Cocaine Screen Negative, Urine Marijuana (THC) Screen Negative 04/30/17 05:20: White Blood Count 8.1, Red Blood Count 4.07L, Hemoglobin 10.9L, Hematocrit 35.3L , Mean Corpuscular Volume 87, Mean Corpuscular Hemoglobin 26.7L, Mean Corpuscular Hemoglobin Concent 30.8L, Red Cell Distribution Width 15.6H, Platelet Count 311, Mean Platelet Volume 6.2L, Neutrophils (%) (Auto) 60.6, Lymphocytes (%) (Auto) 23.6, Monocytes (%) (Auto) 12.5H, Eosinophils (%) (Auto) 2.6, Basophils (%) (Auto) 0.7, Erythrocyte Sedimentation Rate 25, Sodium Level 139, Potassium Level 4.2, Chloride Level 103, Carbon Dioxide Level 26, Anion Gap 10, Blood Urea Nitrogen 14, Creatinine 0.6, Estimat Glomerular Filtration Rate > 60, Glucose Level 90, Calcium Level 9.3, Phosphorus Level 4.6, Magnesium Level 1.8, C-Reactive Protein, Quantitative 1.1H Height (Feet): 5 Height (Inches): 6.00 Weight (Pounds): 130 General Appearance: alert EENT: normal ENT inspection Neck: normal alignment Cardiovascular: normal peripheral pulses, normal rate, regular rhythm Respiratory/Chest: chest wall non-tender, lungs clear, normal breath sounds Abdomen: normal bowel sounds, non tender, soft Extremities: normal inspection Edema: no edema noted Arm (L), no edema noted Arm (R), no edema noted Leg (L), no edema noted Leg (R), no edema noted Pedal (L), no edema noted Pedal (R), no edema noted Generalized Neurologic: responsive, motor weakness Skin: normal pigmentation, warm/dry BAYRON BENEDICT Apr 30, 2017 10:29
--- NOTE | 2017-04-30 10:51 | GI Progress Note ---
Assessment/Plan Problems: (1) History of exploratory laparotomy ICD Codes: Z98.89 - Other specified postprocedural states SNOMED: 56822938, 42496278, 573496289 (2) Anemia (3) Elevated CEA ICD Codes: R97.0 - Elevated CEA SNOMED: 342574943 (4) IBD (inflammatory bowel disease) ICD Codes: K63.89 - Other specified diseases of intestine SNOMED: 36334496 (5) Chronic pain syndrome ICD Codes: G89.4 - Chronic pain syndrome SNOMED: 894255113 (6) Crohn's disease ICD Codes: K50.90 - Crohn's disease SNOMED: 46375099 Status: stable Status Narrative Discussed with Dr. Gallegos. Assessment/Plan s/p EGD/colon 2016 >> , crohns non functional implanted morphine pump LLQ CEA elevation >> 12 CA19-9 elevation >> 52 ESR WNL C Reactive mild elevation iron deficiency ok for DC per GI standpoint symptomatic treatment at this time adv to regular diet OB stool r/o GI bleed mesalamine for Crohns as inpatient, rx for Pentasa when discharged (this med not avail in the hospital) electrolyte replacement pain mgmt ppi Imodium prn, consider lomotil if diarrhea persists fu as outpatient Subjective Subjective no complaints chronic abdominal pain Objective Last 24 Hour Vital Signs Date Time Temp Pulse Resp B/P (MAP) Pulse Ox O2 Delivery O2 Flow Rate FiO2 04/30/17 08:00 97.9 84 20 96/56 94 Room Air 04/30/17 04:00 97.9 74 20 86/52 91 Room Air 04/30/17 00:00 98.4 82 18 100/59 93 Room Air 04/29/17 20:00 98.6 80 20 96/54 97 Room Air 04/29/17 16:14 98.2 81 20 108/67 96 Room Air 04/29/17 12:00 82 04/29/17 11:40 97.5 80 18 104/66 100 Room Air Laboratory Tests Test 04/30/17 05:20 White Blood Count 8.1 K/UL (4.8-10.8) Red Blood Count 4.07 M/UL (4.20-5.40) L Hemoglobin 10.9 G/DL (12.0-16.0) L Hematocrit 35.3 % (37.0-47.0) L Mean Corpuscular Volume 87 FL (80-99) Mean Corpuscular Hemoglobin 26.7 PG (27.0-31.0) L Mean Corpuscular Hemoglobin Concent 30.8 G/DL (32.0-36.0) L Red Cell Distribution Width 15.6 % (11.6-14.8) H Platelet Count 311 K/UL (150-450) Mean Platelet Volume 6.2 FL (6.5-10.1) L Neutrophils (%) (Auto) 60.6 % (45.0-75.0) Lymphocytes (%) (Auto) 23.6 % (20.0-45.0) Monocytes (%) (Auto) 12.5 % (1.0-10.0) H Eosinophils (%) (Auto) 2.6 % (0.0-3.0) Basophils (%) (Auto) 0.7 % (0.0-2.0) Erythrocyte Sedimentation Rate 25 MM/HR (0-30) Sodium Level 139 mEQ/L (135-145) Potassium Level 4.2 mEQ/L (3.4-4.9) Chloride Level 103 mEQ/L (98-107) Carbon Dioxide Level 26 mEQ/L (20-30) Anion Gap 10 (5-15) Blood Urea Nitrogen 14 mg/dL (7-23) Creatinine 0.6 mg/dL (0.5-0.9) Estimat Glomerular Filtration Rate > 60 mL/min (>60) Glucose Level 90 mg/dL (74-106) Calcium Level 9.3 mg/dL (8.6-10.2) Phosphorus Level 4.6 mg/dL (2.5-4.8) Magnesium Level 1.8 mg/dL (1.7-2.5) C-Reactive Protein, Quantitative 1.1 mg/dL (< 0.5) H Height (Feet): 5 Height (Inches): 6.00 Weight (Pounds): 130 General Appearance: no apparent distress, alert Cardiovascular: normal rate Respiratory/Chest: normal breath sounds, no respiratory distress Abdominal Exam: normal bowel sounds, non tender, soft Extremities: normal range of motion Tara Scott N.P. Apr 30, 2017 10:51
--- NOTE | 2017-04-30 11:06 | Diagnostic Imaging Report ---
APPROVED REPORT CPT Code: 90489 Present Symptoms Lower Extremity Pain: BILATERAL: Imaging reveals a patent deep venous system bilaterally. There is no evidence of thrombus within the femoral, popliteal or tibial segments. The greater saphenous veins are also within normal limits. Doppler indicates normal spontaneous flow within these segments.
[2017-04-30 12:00] VITALS: BP 96/54
[2017-04-30] MEDS: D5NS 1,000 ML IV SCH (12:25)
[2017-04-30] MEDS ORDERED: ACETAMINOPHEN325 M1 ORAL ×2 (12:38→12:39)
[2017-04-30] MEDS ORDERED: MYLANTA II30 ML PO (12:42)
[2017-04-30] MEDS ORDERED: LEVOTHYROXINE75 MCG ORAL (12:45)
[2017-04-30] MEDS ORDERED: MIRTAZAPINE15 M3 ORAL (12:47)
[2017-04-30] MEDS ORDERED: NITROGLYCERIN0.4 MG SL (12:53)
[2017-04-30] MEDS ORDERED: ZOFRAN4 M3 ORAL (12:54)
[2017-04-30] MEDS ORDERED: PROTONIX40 MG ORAL (12:55)
[2017-04-30] MEDS ORDERED: MIRALAX17 G2 ORAL (12:57)
[2017-04-30] MEDS ORDERED: SEROQUEL400 MG ORAL (12:59)
[2017-04-30] MEDS ORDERED: TRAZODONE HCL150 MG ORAL (13:01)
[2017-04-30] MEDS ORDERED: RESTORIL15 MG ORAL (13:01)
[2017-04-30] MEDS ORDERED: D5NS 1000ml IV ONE ×3 (14:13→15:59)
[2017-04-30] MEDS ORDERED: NS 275ml ONE (14:13)
[2017-04-30] MEDS ORDERED: Tubing IV Secondary IV ONE (14:13)
--- NOTE | 2017-04-30 18:48 | Pulmonology Progress Note ---
Assessment/Plan Problems: (1) Pre-syncope (2) COPD (chronic obstructive pulmonary disease) (3) Interstitial lung disease (4) Elevated CEA (5) Chronic pancreatitis (6) Chronic pain syndrome (7) IBD (inflammatory bowel disease) Assessment/Plan respiratory treatment check electrolytes teli records reviewed pain management Subjective ROS Limited/Unobtainable: No Constitutional: Reports: fatigue, anorexia Respiratory: Reports: productive cough, shortness of breath, dyspnea on exertion Gastrointestinal/Abdominal: Reports: nausea, bloating Allergies: Coded Allergies: No Known Allergies (Verified , 05/21/06) Objective Last 24 Hour Vital Signs Date Time Temp Pulse Resp B/P (MAP) Pulse Ox O2 Delivery O2 Flow Rate FiO2 04/30/17 12:00 98.6 80 20 96/54 97 Room Air 04/30/17 08:00 97.9 84 20 96/56 94 Room Air 04/30/17 04:00 97.9 74 20 86/52 91 Room Air 04/30/17 00:00 98.4 82 18 100/59 93 Room Air 04/29/17 20:00 98.6 80 20 96/54 97 Room Air Intake and Output 04/30/17 05/01/17 19:00 07:00 Intake Total 150 ml Balance 150 ml IV Total 150 ml General Appearance: no acute distress HEENT: normocephalic, atraumatic, PERRL Respiratory/Chest: chest wall non-tender, decreased breath sounds, accessory muscle use, rhonchi, expiratory wheezing, inspiratory wheezing Breasts: no masses Cardiovascular: normal peripheral pulses, normal rate, regular rhythm, no JVD Abdomen: hyperactive bowel sounds, distended, rebound tenderness Genitourinary: normal external genitalia Extremities: no cyanosis Skin: no rash 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/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, no motor/sensory deficits Laboratory Tests 04/30/17 05:20: White Blood Count 8.1, Red Blood Count 4.07L, Hemoglobin 10.9L, Hematocrit 35.3L , Mean Corpuscular Volume 87, Mean Corpuscular Hemoglobin 26.7L, Mean Corpuscular Hemoglobin Concent 30.8L, Red Cell Distribution Width 15.6H, Platelet Count 311, Mean Platelet Volume 6.2L, Neutrophils (%) (Auto) 60.6, Lymphocytes (%) (Auto) 23.6, Monocytes (%) (Auto) 12.5H, Eosinophils (%) (Auto) 2.6, Basophils (%) (Auto) 0.7, Erythrocyte Sedimentation Rate 25, Sodium Level 139, Potassium Level 4.2, Chloride Level 103, Carbon Dioxide Level 26, Anion Gap 10, Blood Urea Nitrogen 14, Creatinine 0.6, Estimat Glomerular Filtration Rate > 60, Glucose Level 90, Calcium Level 9.3, Phosphorus Level 4.6, Magnesium Level 1.8, C-Reactive Protein, Quantitative 1.1H 04/30/17 12:00: Urine Random Creatinine [Pending], Urine Random Microalbumin [Pending], Urine Random Total Protein 9, Urine Random Sodium 126, Urine Microalbumin/Creatinine Ratio [Pending], Urine Potassium Timed 25 DWAYNE SOTO Apr 30, 2017 18:48
--- NOTE | 2017-04-30 22:25 | General Progress Note ---
Assessment/Plan Assessment/Plan ASSESSMENT AND PLAN: 1. Elevated CEA level. Has been cleared per GI, to follow up as outpatient. 2. Anemia 2/2 iron deficiency.Saturation is 12, TIBC 275, therefore it is appropriate the patient gets IV iron. 3. Elevated CA 19-9. Imaging has been reviewed with abdomen and pelvis CAT scan back in November 2016 postsurgical abdominal surgery. 4. Crohn's disease. Subjective Allergies: Coded Allergies: No Known Allergies (Verified , 05/21/06) Objective Last 24 Hour Vital Signs Date Time Temp Pulse Resp B/P (MAP) Pulse Ox O2 Delivery O2 Flow Rate FiO2 04/30/17 12:00 98.6 80 20 96/54 97 Room Air 04/30/17 08:00 97.9 84 20 96/56 94 Room Air 04/30/17 04:00 97.9 74 20 86/52 91 Room Air 04/30/17 00:00 98.4 82 18 100/59 93 Room Air Intake and Output 04/30/17 05/01/17 19:00 07:00 Intake Total 150 ml Balance 150 ml IV Total 150 ml Laboratory Tests 04/30/17 05:20: White Blood Count 8.1, Red Blood Count 4.07L, Hemoglobin 10.9L, Hematocrit 35.3L , Mean Corpuscular Volume 87, Mean Corpuscular Hemoglobin 26.7L, Mean Corpuscular Hemoglobin Concent 30.8L, Red Cell Distribution Width 15.6H, Platelet Count 311, Mean Platelet Volume 6.2L, Neutrophils (%) (Auto) 60.6, Lymphocytes (%) (Auto) 23.6, Monocytes (%) (Auto) 12.5H, Eosinophils (%) (Auto) 2.6, Basophils (%) (Auto) 0.7, Erythrocyte Sedimentation Rate 25, Sodium Level 139, Potassium Level 4.2, Chloride Level 103, Carbon Dioxide Level 26, Anion Gap 10, Blood Urea Nitrogen 14, Creatinine 0.6, Estimat Glomerular Filtration Rate > 60, Glucose Level 90, Calcium Level 9.3, Phosphorus Level 4.6, Magnesium Level 1.8, C-Reactive Protein, Quantitative 1.1H 04/30/17 12:00: Urine Random Creatinine [Pending], Urine Random Microalbumin [Pending], Urine Random Total Protein 9, Urine Random Sodium 126, Urine Microalbumin/Creatinine Ratio [Pending], Urine Potassium Timed 25 Height (Feet): 5 Height (Inches): 6.00 Weight (Pounds): 130 Connor Bains Apr 30, 2017 22:25
--- NOTE | 2017-05-03 08:31 | Cardiology Report ---
APPROVED REPORT EXAM: Two-dimensional and M-mode echocardiogram with Doppler and color Doppler. INDICATION Left Ventricular Function M-Mode DIMENSIONS IVSd1.0 (0.7-1.1cm)Left Atrium (MM)4.0 (1.6-4.0cm) LVDd5.4 (3.5-5.6cm)Aortic Root3.1 (2.0-3.7cm) PWd0.9 (0.7-1.1cm)Aortic Cusp Exc.1.8 (1.5-2.0cm) LVDs3.1 (2.5-4.0cm) PWs1.8 cm Technically difficult study due to poor acoustic windows. Normal left ventricular chamber size, systolic function and wall motion. Left ventricular ejection fraction estimated to be 55 %. No evidence of left ventricular hypertrophy. No evidence of pericardial effusion. All other cardiac chamber sizes are within normal limits. Mild focal aortic valve sclerosis with adequate cusp excursion. Mildly thickened mitral valve leaflets with normal excursion. Mild mitral annulus and aortic root calcification. Pulmonic valve not well visualized. Normal tricuspid valve structure. IVC dilated at 2.2 cm and partial-collapsing with respiration suggestive of increased RA pressure. A color flow and spectral Doppler study was performed and revealed: No aortic insufficiency. Trace mitral regurgitation. Mitral diastolic velocities suggest reduced left ventricular relaxation c/w impaired relaxation grade one diastolic dysfunction. Trace tricuspid regurgitation. Tricuspid systolic velocities suggests peak right ventricular systolic pressure of 41 mmHg, consistent with mild pulmonary hypertension. No pulmonic regurgitation present.
--- NOTE | 2017-05-03 12:21 | Discharge Summary ---
Discharge Summary Hospital Course Date of Admission Apr 28, 2017 at 15:48 Date of Discharge Apr 30, 2017 at 16:00 Admitting Diagnosis NON-STEMI HPI Jayde Buchanan is a 66 year old female who was admitted on Apr 28, 2017 at 15:48 for [id number] Myocardial Infarction Hospital Course dc summary #[id number] Discharge Medications Continued Medications: Acetaminophen* (Acetaminophen 325MG Tablet*) 325 Mg Tablet 650 MG ORAL Q4H PRN for Fever/Headache/Mild Pain, TAB Al Hydroxide/mg Hydroxide (Mag-Al Plus Suspension) 30 Ml Oral.susp 30 ML PO Q6HR for Constipation, ML Diphenhydramine HCl (Benadryl) 25 Mg Capsule 25 MG PO Q6HR PRN for Itching, CAP Duloxetine Hcl* (Cymbalta*) 60 Mg Capsule.dr 60 MG ORAL DAILY, CAP Levothyroxine Sodium* (Levothyroxine Sodium*) 75 Mcg Tablet 75 MCG ORAL ACBREAKFAST, TAB Take in the morning on an empty stomach, at least 30 minutes before food. Mesalamine (Asacol Hd) 800 Mg Tablet.dr 800 MG ORAL THREE TIMES A DAY, TAB Do not break outer coating Mirtazapine* (Mirtazapine*) 15 Mg Tablet 15 MG ORAL BEDTIME, TAB Nitroglycerin (Nitroglycerin) 0.4 Mg Tab.subl 0.4 MG SL [id number] PRN for Prn Chest Pain, TAB Ondansetron* (Zofran*) 4 Mg Tablet 4 MG ORAL Q6H PRN for Nausea & Vomiting, TAB Pantoprazole* (Protonix*) 40 Mg Tablet.dr 40 MG ORAL DAILY, TAB Polyethylene Glycol 3350* (Miralax*) 17 Gm Powd.pack 17 GM ORAL BEDTIME, PACKET Quetiapine Fumarate (Seroquel) 400 Mg Tablet 200 MG ORAL QHS, #15 TAB 0 Refills Temazepam* (Restoril*) 15 Mg Capsule 15 MG ORAL BEDTIME PRN for Insomnia, CAP Trazodone* (Trazodone*) 150 Mg Tablet 150 MG ORAL BEDTIME, TAB Discontinued Medications: Mirtazapine* (Mirtazapine*) 15 Mg Tablet 30 MG ORAL BEDTIME, TAB Quetiapine Fumarate* (Seroquel*) 200 Mg Tablet 100 MG ORAL BEDTIME, TAB Trazodone* (Trazodone*) 150 Mg Tablet 200 MG ORAL BEDTIME PRN for Insomnia, TAB Discharge Condition Upon Discharge: stable Discharge Disposition Patient was discharged to Home with Home Health(06) Discharge Diagnoses: Discharge Instructions Discharge Instructions Special Instructions I have been assigned to complete a D/C Summary on this account. I was not involved in the patient management Gwendolyn Herbert NP ([place]) May 03, 2017 12:21
--- NOTE | 2017-05-04 04:00 | Discharge Summary 2 SIG ---
DATE OF ADMISSION: 04/28/2017 DATE OF DISCHARGE: 04/30/2017 CONSULTANTS: 1. Pk Roche M.D., Criminal Records Technician. 2. Estefani Pandey M.D., Senior Procurement Manager. 3. Rob Wagner M.D., Consumer Banker. 4. Darrel Golden M.D., Infectious Disease. 5. Mena Goncalves M.D., Psychiatrist. 6. Connor Bains M.D., Frame Trimmer. 7. Skyler Gallegos M.D., Concrete Block Molder. BRIEF HOSPITAL STAY: 66-year-old female with a history of Crohn disease, seizure disorder, chronic pain syndrome, and bipolar disorder, presented to emergency room with generalized weakness. She reported feeling like she was about to pass out. She also had nausea but denied any vomiting. No blood in the stool. BUN was slightly elevated. Pro BNP was elevated. The patient admitted for further management. Criminal Records Technician seen and evaluated the patient. Echocardiogram revealed preserved ejection fraction of 55%, right ventricular systolic pressure of 41 consistent with mild pulmonary hypertension. The patient was on the low dose of diuretic. Initial chest x-ray revealed interstitial congestion. Renal parameters and electrolytes were closely monitored. BUN down to 14. Prerenal azotemia resolved likely secondary to dehydration. Criminal Records Technician diagnosed the patient with acute diastolic congestive heart failure exacerbation and recommended to continue low dose of diuretic. Criminal Records Technician concluded that presyncope symptoms were likely secondary to dehydration. The patient was noted to have a severely elevated TSH- 61. The patient was started on levothyroxine. Check thyroid panel in three to four weeks. Supplemental oxygen was ordered as needed to keep saturation above 92%. Pulse oximetry was stable on room air, no need for supplemental oxygen. Pulmonary toilet was provided on as needed basis. Pain management was addressed. Hemoglobin and hematocrit were closely monitored. Anemia workup revealed iron deficiency anemia. The patient was on IV Venofer. The patient also noted to have elevated tumor markers. Elevated CEA =12.2, elevated CA 19-9 - 52.16. Gastrointestinal consult was requested. Concrete Block Molder seen and evaluated the patient. ESR within normal limits. C-reactive protein with mild elevation. The patient with a known history of Crohn disease. The patient had in 2016 esophagogastroduodenoscopy and colonoscopy. The patient received IV iron. Prescription for Pentasa was given when the patient was discharged. While in the hospital, the patient was on mesalamine. Diet was advanced as tolerated. Patient was able to tolerate diet. Symptomatic treatment was provided. Antiemetic provided as needed. Electrolytes were replaced as needed. The patient was on PPI, Imodium was given as needed for diarrhea. The patient to follow up as outpatient with GI specialist. Venous duplex of bilateral lower extremities was negative. DVT prophylaxis provided. X-ray of the hip and pelvis was negative for any acute injury. The patient had an abdominal pelvis CT done in November, which revealed no evidence of malignancy. Infectious Disease specialist seen and evaluated the patient. Initially was a question about possible urinary tract infection. Urinalysis revealed +1 leukocyte esterase and 5 to 10 WBC, but the patient was asymptomatic, afebrile and was kept off antibiotics. Psychiatrist seen and evaluated the patient and diagnosed her with bipolar disorder type 2, He optimized psychiatric medication regimen. Patient clinically improved. The patient was stable for discharge home with home health services. FINAL DIAGNOSES: 1. Acute diastolic congestive heart failure exacerbation. 2. Crohn disease. 3. Presyncope, secondary to dehydration. 4. Prerenal azotemia, due to dehydration - resolved. 5. Severe hypothyroidism. 6. Chronic pain syndrome. 7. Chronic pancreatitis. 8. Chronic obstructive pulmonary disease. 9. Interstitial lung disease. 10. Elevated CEA and CA 19-9. 11. Iron-deficiency anemia. 12. Bipolar type 2. DISCHARGE MEDICATIONS: See medication reconciliation list. DISCHARGE INSTRUCTIONS: The patient was discharged home with home health services. Follow up with primary medical doctor. Barber Dial D.O. I have been assigned to dictate discharge summary on this account and I was not involved in the patient's management. Gwendolyn HarrisKnickerbocker HospitalDennis N.P. DR: DANIEL JOB#: [id number] CC: DENI
--- NOTE | 2017-05-06 23:19 | Cardiology Report ---
APPROVED REPORT EKG Measurement Heart [id number] Normal sinus rhythm Normal ECG
== END 2017-04-30 16:00 | disposition home health service (06) | DRG 640 ==
LOC: EMR 14:24 → EDBEDREQ 15:34 → 2E 15:48 → EDBEDREQ 15:58 → 4E 04-29 15:40
DX: E86.0 Dehydration (principal); I50.33 Acute on chronic diastolic (congestive) heart failure; J84.9 Interstitial pulmonary disease, unspecified; I27.20 Pulmonary hypertension, unspecified; E46 Unspecified protein-calorie malnutrition; I95.9 Hypotension, unspecified; K50.90 Crohn's disease, unspecified, without complications; K86.1 Other chronic pancreatitis; F31.81 Bipolar II disorder; N39.0 Urinary tract infection, site not specified; J44.9 Chronic obstructive pulmonary disease, unspecified; E03.9 Hypothyroidism, unspecified; G89.4 Chronic pain syndrome; E87.6 Hypokalemia; Z86.73 Personal history of transient ischemic attack (TIA), and cerebral infarction without residual deficits; G40.909 Epilepsy, unspecified, not intractable, without status epilepticus; K21.9 Gastro-esophageal reflux disease without esophagitis; D50.9 Iron deficiency anemia, unspecified; F17.200 Nicotine dependence, unspecified, uncomplicated; Z68.20 Body mass index [BMI] 20.0-20.9, adult; R97.0 Elevated carcinoembryonic antigen [CEA]; Z79.82 Long term (current) use of aspirin; Z23 Encounter for immunization
CPT/HCPCS: 36415; 71010; 72170; 80048; 80053; 80300; 81001; 82043; 82044; 82150; 82378; 83540; 83550; 83690; 83735; 83880; 84100; 84133; 84300; 84439; 84443; 84481; 84484; 85025; 85379; 85610; 85651; 85730; 86140; 86301; 90630; 93005; 93306; 93970; 97803; 99285

== ENCOUNTER 2017-06-26 14:36 | Inpatient (IN) | payer MEDICARE, OTHER ==
[~2017-06-26] VITALS: Ht 167.6 cm; Wt 65.3 kg
[~2017-06-26 14:36] MED LIST changes: +ACETAMINOPHEN325 M1 ORAL; +LEVOTHYROXINE75 MCG ORAL; +MYLANTA II30 ML PO; +SEROQUEL400 MG ORAL
[2017-06-26 15:00] VITALS: BP 117/77
[2017-06-26] MEDS ORDERED: Solu-MEDROL 125mg Inj IVP ONE (15:15)
[2017-06-26] MEDS ORDERED: Azithromycin 500 MG in D5W 275 ML IVPB ONE (15:15)
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
[2017-06-26 15:41] LABS: ABG ALLEN TEST POSITIVE; ABG BASE EXCESS 2.6; ABG PCO2 44.6 mmHg (35.0-45.0)
[2017-06-26] MEDS: Albuterol ud Inhalation HHN SCH ×3 (15:44→16:17)
[2017-06-26] MEDS: Ipratropium 0.02% Inh Soln 2.5ml UD HHN SCH ×3 (15:45→16:18)
[2017-06-26] MEDS ORDERED: AMBIEN5 MG ORAL (15:54)
[2017-06-26] MEDS ORDERED: REMERON30 M1 ORAL (15:55)
[2017-06-26 16:15] LABS: BASOPHILS % (AUTO) 0.5 % (0.0-2.0); EOSINOPHILS % (AUTO) 1.5 % (0.0-3.0); LYMPHOCYTES % (AUTO) 26.2 % (20.0-45.0); MEAN CORPUSCULAR HEMOGLOBIN 26.4 PG (27.0-31.0); MEAN CORPUSCULAR HGB CONC 30.3 G/DL (32.0-36.0); MEAN CORPUSCULAR VOLUME 87 FL (80-99); MEAN PLATELET VOLUME 7.6 FL (6.5-10.1); MONOCYTES % (AUTO) 11.1 % (1.0-10.0); NEUTROPHILS % (AUTO) 60.6 % (45.0-75.0); PLATELET COUNT 309 K/UL (150-450); RED BLOOD COUNT 4.46 M/UL (4.20-5.40); RED CELL DISTRIBUTION WIDTH 14.5 % (11.6-14.8); WHITE BLOOD COUNT 9.4 K/UL (4.8-10.8)
[2017-06-26] MEDS ORDERED: Azithromycin 500mg Inj IV ONE (16:31)
[2017-06-26 16:34] LABS: ANION GAP 5 mmol/L (5-15); CALCIUM 9.1 MG/DL (8.5-10.1); CARBON DIOXIDE 30 MMOL/L (21-32); CHLORIDE 101 MMOL/L (98-107); CREATININE 0.8 MG/DL (0.55-1.30); GLOMERULAR FILTRATION RATE > 60 mL/min (>60); POTASSIUM 3.9 MMOL/L (3.5-5.1); SODIUM 136 MMOL/L (136-145)
[2017-06-26 16:38] LABS: ALANINE AMINOTRANSFERASE 13 U/L (12-78); ALBUMIN/GLOBULIN RATIO 0.4 (1.0-2.7); ASPARTATE AMINO TRANSFERASE 18 U/L (15-37); LIPASE 57 U/L (73-393); TOTAL PROTEIN 9.3 G/DL (6.4-8.2)
[2017-06-26 16:50] VITALS: BP 121/76
[2017-06-26] MEDS ORDERED: Morphine Sulfate 4mg/ml Inj IVP ONE (17:00)
[2017-06-26 18:00] LABS: APPEARANCE,URINE CLEAR; KETONES,URINE NEGATIVE (NEGATIVE); LEUKOCYTE ESTERASE ,URINE 1+ (NEGATIVE); NITRITE,URINE NEGATIVE (NEGATIVE); PH,URINE 7 (4.5-8.0); PROTEIN,URINE 2+ (NEGATIVE); UROBILINOGEN,URINE NORMAL MG/DL (0.0-1.0)
[2017-06-26 18:09] LABS: BACTERIA,URINE FEW /HPF; MUCUS,URINE FEW /LPF (NONE/OCC); RBC,URINE 15-20 /HPF (0 - 2); SQUAMOUS EPITHELIAL CELL,UR OCCASIONAL /LPF (NONE/OCC)
[2017-06-26 18:41] VITALS: BP 136/69
[2017-06-26] MEDS ORDERED: Nitroglycerin Subl 0.4mg tab SL PRN (19:45)
[2017-06-26] MEDS ORDERED: Albuterol/Ipratropium 3ml neb HHN PRN (19:45)
[2017-06-26] MEDS ORDERED: LORazepam Inj 2mg/ml 1ml IV PRN (19:45)
[2017-06-26] MEDS ORDERED: Ketorolac 30mg Inj IV PRN (19:45)
[2017-06-26] MEDS ORDERED: Promethazine/Codeine 5ml UD ORAL PRN (19:45)
[2017-06-26] MEDS ORDERED: Atorvastatin 20mg tab ORAL SCH (21:00)
[2017-06-26] MEDS: Heparin 5000 units/ml inj SUBQ SCH (21:00)
[2017-06-26] MEDS ORDERED: TraZODone 50mg tab ORAL SCH (21:00)
[2017-06-26] MEDS: Piperacillin/Tazobactam 2.25 GM in D5W 55 ML IV SCH (22:08)
[2017-06-26] MEDS: Theophylline ER 100mg ORAL SCH (22:09)
[2017-06-26] MEDS: Morphine Sulfate 2mg/ml Inj IVP PRN (23:02)
[2017-06-26] MEDS: Solu-MEDROL 125mg Inj IV SCH (23:25)
[2017-06-27] VITALS: BP 108/59
[2017-06-27] MEDS: Piperacillin/Tazobactam 2.25 GM in D5W 55 ML IV SCH (06:03)
[2017-06-27] MEDS: Solu-MEDROL 125mg Inj IV SCH ×3 (06:03→21:09)
[2017-06-27 08:00] VITALS: BP 119/65
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
[2017-06-27] MEDS ORDERED: Theophylline ER 100mg ORAL SCH (09:00)
[2017-06-27] MEDS ORDERED: DULoxetine 30mg cap ORAL SCH (09:00)
[2017-06-27] MEDS: Theophylline ER 100mg ORAL SCH ×2 (09:14→21:08)
[2017-06-27] MEDS: Heparin 5000 units/ml inj SUBQ SCH ×2 (09:15→21:12)
[2017-06-27] MEDS: Morphine Sulfate 2mg/ml Inj IVP PRN ×4 (09:23→22:19)
--- NOTE | 2017-06-27 10:33 | Diagnostic Imaging Report ---
Indication: Chest pain Comparison: 04/29/17 A single view chest radiograph was obtained. Findings: Interstitial infiltrates versus edema demonstrated. Heart is enlarged. Bones are osteopenic. Impression: Similar findings. Interstitial edema versus infiltrates
[2017-06-27] MEDS ORDERED: Nitroglycerin Subl 0.4mg tab SL PRN (13:30)
[2017-06-27] MEDS ORDERED: Promethazine/Codeine 5ml UD ORAL PRN (13:45)
[2017-06-27] MEDS ORDERED: Ketorolac 30mg Inj IV PRN (14:00)
[2017-06-27] MEDS ORDERED: Solu-MEDROL 125mg Inj IV SCH (14:00)
[2017-06-27] MEDS ORDERED: LORazepam Inj 2mg/ml 1ml IV PRN (14:00)
[2017-06-27] MEDS ORDERED: Albuterol/Ipratropium 3ml neb HHN PRN (14:00)
[2017-06-27] MEDS ORDERED: cefTRIAXone 1 GM in D5W 55 ML IVPB SCH (14:00)
--- NOTE | 2017-06-27 15:45 | History and Physical Report ---
DATE OF ADMISSION: 06/26/2017 TIME SEEN: 8 a.m. ATTENDING PHYSICIAN: Barber Dial D.O. CONSULTANTS: 1. Rob Wagner M.D. 2. Ashvin Fulton M.D. 3. Skyler Gallegos M.D. 4. Dr. Cordova. CHIEF COMPLAINT: Shortness breath, weakness, lethargy, and mouth pain. BRIEF HISTORY: This is a 66-year-old female, who lives at home, presents with increased shortness of breath for two days, slight weakness, and mouth pain too, diagnosed the above exacerbation of COPD and abdominal pain as well and admitted to telemetry for further care. Currently, slightly anxious, oriented x3 in bed. She has no complaints. PAST MEDICAL HISTORY: COPD, seizure, and Crohn's. PAST SURGICAL HISTORY: Exploratory laparotomy. MEDICATIONS: Include methylprednisolone, Cymbalta, Keppra, Zantac, Synthroid, Zosyn, Lipitor, Desyrel, and heparin. ALLERGIES: Denies. SOCIAL HISTORY: Positive smoking. No alcohol. No intravenous drug abuse. FAMILY HISTORY: Noncontributory. REVIEW OF SYSTEMS: No chest pain. Slight shortness of breath. No nausea, vomiting, or diarrhea. PHYSICAL EXAMINATION: GENERAL: Slightly anxious in bed, oriented x3, in no acute distress. VITAL SIGNS: Show temperature is 97 degrees, pulse 53, respirations 18, and blood pressure 108/59. CARDIOVASCULAR: No murmur. Poor exchange. ABDOMEN: Bowel sounds positive. Nontender and nondistended. EXTREMITIES: No cyanosis, clubbing, or edema. NEUROLOGIC: The patient moves all extremities slightly weak. LABORATORY AND DIAGNOSTIC DATA: Show hemoglobin 11.8, otherwise CBC is normal. BMP show albumin 2.6, otherwise BMP is normal. Urinalysis show 4+ occult blood and 1+ leukocyte esterase. ASSESSMENT: 1. Exacerbation of chronic obstructive pulmonary disease. 2. Urinary tract infection. 3. Seizure. 4. Anemia. 5. Malnutrition. 6. Crohn disease. 7. Abdominal pain. 8. Mouth pain. PLAN: 1. Continue premeds. 2. O2 pulmonary treatment. 3. Antibiotics per Infectious Disease. 4. Taper off steroids. 5. Seizure control. 6. Pain control. 7. Dietary followup. 8. Dr. Wagner, Dr. Fulton, Dr. Gallegos, and Dr. Cordova to consult. 9. OT/PT, dietary evaluation, CBC, and BMP in the morning. 10. We will continue to follow this patient medically. Barber Dial D.O. DR: Renata JOB#: [id number] CC:
[2017-06-27] MEDS: cefTRIAXone 1 GM in D5W 55 ML IVPB SCH (15:48)
--- NOTE | 2017-06-27 16:16 | Neurology Progress Note ---
Objective Physical Exam Last Vital Signs Date Time Temp Pulse Resp B/P (MAP) Pulse Ox O2 Delivery O2 Flow Rate FiO2 06/27/17 14:24 97.7 06/27/17 08:00 68 06/27/17 08:00 18 119/65 Room Air 06/27/17 07:46 21 06/26/17 18:50 96 Laboratory Tests Test 06/26/17 17:50 Urine Color Yellow Urine Appearance Clear Urine pH 7 (4.5-8.0) Urine Specific [place] 1.010 (1.005-1.035) Urine Protein 2+ (NEGATIVE) H Urine Glucose (UA) Negative (NEGATIVE) Urine Ketones Negative (NEGATIVE) Urine Occult Blood 4+ (NEGATIVE) H Urine Nitrite Negative (NEGATIVE) Urine Bilirubin Negative (NEGATIVE) Urine Urobilinogen Normal MG/DL (0.0-1.0) Urine Leukocyte Esterase 1+ (NEGATIVE) H Urine RBC 15-20 /HPF (0 - 2) H Urine WBC 2-4 /HPF (0 - 2) Urine Squamous Epithelial Cells Occasional /LPF Urine Bacteria Few /HPF (NONE) Urine Mucus Few /LPF (NONE/OCC) H Impression/Recommendations Problems: (1) seizure disorder, exacerbation (2) chr psych disorder (3) Chronic pain disorder (4) recurrent syncope (5) COPD exacerbation (6) Crohn's disease (7) UTI (urinary tract infection) Status: stable Recommendations # [id number] MARCUS GIL Jun 27, 2017 16:16
[2017-06-27 16:28] VITALS: BP 136/78
[2017-06-27 20:00] VITALS: BP 135/68
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
--- NOTE | 2017-06-27 21:00 | Consultation ---
DATE OF CONSULTATION: 06/27/2017 ADDENDUM PHYSICAL EXAMINATION: GENERAL: This is a well-developed and well-nourished female, not in acute distress, lying comfortably in bed. VITAL SIGNS: Her vital signs now are stable, blood pressure 119/65, and she is afebrile. HEENT: Head is normocephalic. No evidence of trauma. Eyes, ears, and throat are clear. There is a left upper lip boil noted. EXTREMITIES: Upper and lower extremities without clubbing, cyanosis, or edema. Peripheral pulses 1+ symmetric. MENTAL STATUS: The patient is alert and oriented x3 with no evidence of aphasia or apraxia. Cognitive function is normal. CRANIAL NERVES II: Pupils both responding to light and accommodation. Extraocular movements intact. No nystagmus. CRANIAL NERVES V: Normal corneal responses. CRANIAL NERVES VII: No facial asymmetry. CRANIAL NERVES VIII: Normal hearing. CRANIAL NERVES IX TO XII: Within normal limits. Motor examination revealed normal muscle tone and strength 5/5 in all extremities. No involuntary movement. Deep tendon reflexes 1+ symmetric with downgoing toes on both sides. Sensory examination, normal to pinprick and light touch. Gait not tested. The patient felt weakness. IMPRESSION: 1. Chronic seizure disorder, exacerbation. 2. Chronic obstructive pulmonary disease, exacerbation. 3. Urinary tract infection. 4. History of depression. 5. Chronic low back pain. RECOMMENDATIONS: The patient is to continue supportive care. In addition, we will restart her on Keppra 1000 mg b.i.d. (the patient indicates that she was on 500 mg t.i.d. previously). We will observe for any paroxysmal events. We will recheck electroencephalogram to rule out any ongoing seizure activities, there was no previous. We will have baseline CT of the brain. We will follow with you. Thank you for allowing me to see this interesting patient in neurological consultation. Ashvin Fulton M.D. DR: Cris JOB#: [id number] CC:
[2017-06-27] MEDS: TraZODone 50mg tab ORAL SCH (21:08)
[2017-06-27] MEDS: Atorvastatin 20mg tab ORAL SCH (21:08)
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
[2017-06-28] VITALS: BP 135/79
[2017-06-28 04:00] VITALS: BP 144/75
[2017-06-28] MEDS: Solu-MEDROL 125mg Inj IV SCH ×3 (05:55→20:52)
[2017-06-28 07:10] LABS: MEAN CORPUSCULAR HEMOGLOBIN 26.7 PG (27.0-31.0); MEAN CORPUSCULAR HGB CONC 30.5 G/DL (32.0-36.0); MEAN CORPUSCULAR VOLUME 88 FL (80-99); MEAN PLATELET VOLUME 7.7 FL (6.5-10.1); PLATELET COUNT 335 K/UL (150-450); RED CELL DISTRIBUTION WIDTH 14.9 % (11.6-14.8)
[2017-06-28 07:29] LABS: ANION GAP 3 mmol/L (5-15); CARBON DIOXIDE 27 MMOL/L (21-32); CHLORIDE 108 MMOL/L (98-107); CREATININE 0.8 MG/DL (0.55-1.30); GLOMERULAR FILTRATION RATE > 60 mL/min (>60); POTASSIUM 4.6 MMOL/L (3.5-5.1); SODIUM 138 MMOL/L (136-145); THYROID STIMULATING HORMONE 0.156 uiU/mL (0.358-3.740)
[2017-06-28 07:46] LABS: BAND NEUTROPHILS % (MANUAL) 0 % (0-8); BASOPHILS % (MANUAL) 0 % (0-2); EOSINOPHILS % (MANUAL) 0 % (0-3); HYPOCHROMASIA 1+; LYMPHOCYTES % (MANUAL) 8 % (20-45); NEUTROPHILS % (MANUAL) 86 % (45-75); PLATELET ESTIMATE ADEQUATE; PLATELET MORPHOLOGY NORMAL; TOTAL CELLS COUNTED 100
[2017-06-28 07:47] LABS: ANISOCYTOSIS 1+
[2017-06-28 08:00] VITALS: BP 147/85
[2017-06-28] MEDS: DULoxetine 30mg cap ORAL SCH (08:55)
[2017-06-28] MEDS: Theophylline ER 100mg ORAL SCH ×2 (08:55→20:53)
[2017-06-28] MEDS: Heparin 5000 units/ml inj SUBQ SCH ×2 (08:57→20:55)
--- NOTE | 2017-06-28 09:47 | Infectious Diseases Prog Note ---
Assessment/Plan Assessment/Plan A; COPD/ Pneumonia Leukocytosis may be steroid related Nicotine dependence Crohn's disease P; Continue Rocephin, add zithromax Subjective ROS Limited/Unobtainable: Yes Allergies: Coded Allergies: No Known Allergies (Verified , 05/21/06) Objective Vital Signs Last 24 Hour Vital Signs Date Time Temp Pulse Resp B/P (MAP) Pulse Ox O2 Delivery O2 Flow Rate FiO2 06/28/17 08:00 97.0 50 18 147/85 97 Room Air 06/28/17 04:00 97.7 57 18 144/75 100 Room Air 06/28/17 00:00 97.0 79 20 135/79 100 Room Air 06/27/17 21:34 71 20 Room Air 21 06/27/17 20:00 98.6 71 20 135/68 100 Room Air 06/27/17 18:37 98.1 06/27/17 16:28 98.1 66 14 136/78 100 Room Air Height (Feet): 5 Height (Inches): 6.00 Weight (Pounds): 144 General Appearance: no acute distress HEENT: mucous membranes moist Respiratory/Chest: lungs clear Cardiovascular: normal rate Abdomen: soft, non tender Extremities: no edema Neurologic/Psychiatric: other - sleeping Laboratory Tests Test 06/28/17 05:05 White Blood Count 18.0 K/UL (4.8-10.8) H Red Blood Count 4.20 M/UL (4.20-5.40) Hemoglobin 11.2 G/DL (12.0-16.0) L Hematocrit 36.9 % (37.0-47.0) L Mean Corpuscular Volume 88 FL (80-99) Mean Corpuscular Hemoglobin 26.7 PG (27.0-31.0) L Mean Corpuscular Hemoglobin Concent 30.5 G/DL (32.0-36.0) L Red Cell Distribution Width 14.9 % (11.6-14.8) H Platelet Count 335 K/UL (150-450) Mean Platelet Volume 7.7 FL (6.5-10.1) Neutrophils (%) (Auto) % (45.0-75.0) Lymphocytes (%) (Auto) % (20.0-45.0) Monocytes (%) (Auto) % (1.0-10.0) Eosinophils (%) (Auto) % (0.0-3.0) Basophils (%) (Auto) % (0.0-2.0) Differential Total Cells Counted 100 Neutrophils % (Manual) 86 % (45-75) H Lymphocytes % (Manual) 8 % (20-45) L Monocytes % (Manual) 6 % (1-10) Eosinophils % (Manual) 0 % (0-3) Basophils % (Manual) 0 % (0-2) Band Neutrophils 0 % (0-8) Platelet Estimate Adequate Platelet Morphology Normal Red Blood Cell Morphology Hypochromasia 1+ Anisocytosis 1+ Sodium Level 138 MMOL/L (136-145) Potassium Level 4.6 MMOL/L (3.5-5.1) Chloride Level 108 MMOL/L (98-107) H Carbon Dioxide Level 27 MMOL/L (21-32) Anion Gap 3 mmol/L (5-15) L Blood Urea Nitrogen 19 mg/dL (7-18) H Creatinine 0.8 MG/DL (0.55-1.30) Estimat Glomerular Filtration Rate > 60 mL/min (>60) Glucose Level 122 MG/DL (74-106) H Calcium Level 9.0 MG/DL (8.5-10.1) Thyroid Stimulating Hormone (TSH) 0.156 uiU/mL (0.358-3.740) Current Medications Medications (Trade) Dose Ordered Sig/Vaibhav Route PRN Reason Start Time Stop Time Status Last Admin Dose Admin Albuterol/ Ipratropium (Albuterol/ Ipratropium) 3 ml Q4H PRN HHN dyspnea 06/27/17 14:00 07/01/17 13:59 Atorvastatin Calcium (Lipitor) 40 mg BEDTIME ORAL 06/27/17 21:00 07/26/17 20:59 06/27/17 21:08 Ceftriaxone Sodium 1 gm/ Dextrose 55 ml @ 110 mls/hr Q24H IVPB 06/27/17 14:00 07/04/17 13:59 06/27/17 15:48 Dextrose (Dextrose 50%) STAT PRN IV Hypoglycemia 06/27/17 14:00 07/26/17 13:59 Duloxetine HCl (Cymbalta) 60 mg DAILY ORAL 06/28/17 09:00 07/27/17 08:59 06/28/17 08:55 Heparin Sodium (Porcine) (Heparin 5000 units/ml) 5,000 units EVERY 12 HOURS SUBQ 06/27/17 21:00 07/26/17 20:59 06/28/17 08:57 Ketorolac Tromethamine (Toradol 30mg) 30 mg Q8H PRN IV moderate pain 4-6 06/27/17 14:00 07/01/17 13:59 Levetiracetam (Keppra) 1,000 mg BID ORAL 06/27/17 18:00 07/27/17 08:59 06/28/17 08:56 Levothyroxine Sodium (Synthroid) 75 mcg ACBREAKFAST ORAL 06/28/17 06:30 07/27/17 06:29 Lorazepam (Ativan 2mg/ml 1ml) 0.5 mg Q4H PRN IV For Anxiety 06/27/17 14:00 07/03/17 13:59 Methylprednisolone Sodium Succinate (Solu-MEDROL) 60 mg Q8HR IV 06/27/17 14:00 07/27/17 00:00 06/28/17 05:55 Mirtazapine (Remeron) 15 mg BEDTIME ORAL 06/27/17 21:00 07/26/17 20:59 06/27/17 21:08 Morphine Sulfate (Morphine Sulfate) 2 mg Q4H PRN IVP severe pain 7-10 06/27/17 14:00 07/03/17 13:59 06/27/17 22:19 Nicotine (Nicoderm) 1 patch Q24H TDERMAL 06/28/17 09:00 07/27/17 08:59 06/28/17 08:56 Nitroglycerin (Ntg) 0.4 mg Q5M X 3 DOSES PRN SL Prn Chest Pain 06/27/17 13:30 07/26/17 19:44 Ondansetron HCl (Zofran) 4 mg Q6H PRN IVP Nausea & Vomiting 06/27/17 13:45 07/26/17 19:44 Promethazine HCl/ Codeine (Phenergan with Codeine) 5 ml Q6H PRN ORAL cough 06/27/17 13:45 07/26/17 19:44 Ranitidine HCl (Zantac) 150 mg TWICE A DAY ORAL 06/27/17 18:00 07/27/17 08:59 06/28/17 08:55 Sodium Chloride 1,000 ml @ 50 mls/hr Q20H IV 06/27/17 13:30 07/27/17 08:59 06/28/17 05:55 Temazepam (Restoril) 15 mg HSPRN PRN ORAL Insomnia 06/27/17 19:45 07/03/17 19:44 06/27/17 22:19 Theophylline (Erwin-Dur) 100 mg EVERY 12 HOURS ORAL 06/27/17 21:00 07/26/17 20:59 06/28/17 08:55 Trazodone HCl (Desyrel) 150 mg BEDTIME ORAL 06/27/17 21:00 07/26/17 20:59 06/27/17 21:08 IVAN JOSÉ Jun 28, 2017 09:47
[2017-06-28] MEDS ORDERED: Azithromycin 250mg tab ORAL ONE (10:30)
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
--- NOTE | 2017-06-28 11:05 | Diagnostic Imaging Report ---
Indication: SOB Technique: One view of the chest Comparison: 06/26/2017 Findings: Bilateral diffuse and extensive interstitial disease persists, unchanged. There is minimal blunting of left costophrenic sulcus, may indicate a small amount of pleural fluid. Impression: Unchanged bilateral diffuse interstitial disease, over 2 days Possible trace left pleural effusion developing
--- NOTE | 2017-06-28 11:43 | Consultation ---
History of Present Illness General Chief Complaint: Abdominal Pain Referring physician: dr Dial Reason for Consultation: SOB, COPD Present Illness HPI 66-year-old female, who lives at home, presents with increased shortness of breath for two days, slight weakness, and mouth pain too, diagnosed the above exacerbation of COPD and abdominal pain Allergies: Coded Allergies: No Known Allergies (Verified , 05/21/06) Medication History Scheduled Al Hydroxide/mg Hydroxide (Mag-Al Plus Suspension), 30 ML PO Q6HR, (Reported) Aspirin* (Aspir 81*), 81 MG ORAL DAILY, (Reported) Atorvastatin Calcium* (Lipitor*), 40 MG ORAL BEDTIME, (Reported) Azithromycin* (Zithromax*), 250 MG ORAL DAILY, (Reported) Bupropion Hcl* (Bupropion Hcl*), 100 MG ORAL DAILY, (Reported) Duloxetine Hcl* (Cymbalta*), 60 MG ORAL DAILY, (Reported) Ibuprofen* (Motrin*), 800 MG ORAL THREE TIMES A DAY, (Reported) Levetiracetam* (Levetiracetam*), 1,000 MG ORAL TID, (Reported) Levothyroxine Sodium* (Levothyroxine Sodium*), 75 MCG ORAL ACBREAKFAST, ( Reported) Linaclotide (Linzess), 145 MCG PO DAILY, (Reported) Mesalamine (Pentasa), 1,000 MG ORAL TID, (Reported) Mesalamine (Asacol Hd), 800 MG ORAL THREE TIMES A DAY, (Reported) Mirtazapine (Remeron), 30 MG ORAL BEDTIME, (Reported) Mirtazapine* (Mirtazapine*), 15 MG ORAL BEDTIME, (Reported) Montelukast Sodium* (Montelukast Sodium*), 10 MG ORAL DAILY, (Reported) Pantoprazole* (Protonix*), 40 MG ORAL DAILY, (Reported) Polyethylene Glycol 3350* (Miralax*), 17 GM ORAL BEDTIME, (Reported) Polyethylene Glycol 3350* (Miralax*), 17 GM ORAL DAILY, (Reported) Quetiapine Fumarate (Seroquel), 200 MG ORAL QHS, (Reported) Risperidone* (Risperdal*), 0.5 MG ORAL BEDTIME, (Reported) Theophylline (Theodur*), 100 MG ORAL TWICE A DAY, (Reported) Topiramate* (Topamax*), 25 MG ORAL TWICE A DAY, (Reported) Trazodone* (Trazodone*), 150 MG ORAL BEDTIME, (Reported) Scheduled PRN Acetaminophen (Acetaminophen), 650 MG ORAL Q8H PRN for Fever/Headache/Mild Pain, (Reported) Acetaminophen* (Acetaminophen 325MG Tablet*), 325 MG ORAL Q4H PRN for Fever/ Headache/Mild Pain, (Reported) Acetaminophen* (Acetaminophen 325MG Tablet*), 650 MG ORAL Q4H PRN for Fever/ Headache/Mild Pain, (Reported) Diphenhydramine HCl (Benadryl), 25 MG PO Q6HR PRN for Itching, (Reported) Nitroglycerin (Nitroglycerin), 0.4 MG SL [id number] PRN for Prn Chest Pain, ( Reported) Ondansetron* (Zofran*), 4 MG ORAL Q6H PRN for Nausea & Vomiting, (Reported) Temazepam* (Restoril*), 15 MG ORAL BEDTIME PRN for Insomnia, (Reported) Zolpidem Tartrate* (Ambien*), 5 MG ORAL BEDTIME PRN for Insomnia, (Reported) Patient History History Provided By: Patient, Medical Record Healthcare decision maker N Resuscitation status Advanced Directive on File Past Medical/Surgical History Past Medical/Surgical History: (1) Slow transit constipation (2) Vertigo (3) 24801 (4) 50057 (5) Slow transit constipation (6) 68999 (7) 571834 (8) 882961 (9) Abnormal laboratory test result (10) Cellulitis of female genitalia (11) Abscess of right genital labia (12) Colonoscopy planned (13) Edema (14) Purulent bronchitis (15) Sprain of right hand (16) Chronic back pain (17) History of colonic polyps (18) Intractable abdominal pain (19) Acute encephalopathy (20) Abdominal pain (21) Psychosis (22) Respiratory distress (23) Ileus (24) Constipation (25) Abdominal pain (26) Diarrhea (27) Nausea and vomiting (28) Chronic abdominal pain (29) Sepsis (30) Chest pain (31) Pneumonia (32) Lower GI bleed (33) CHF (congestive heart failure) (34) Chronic pancreatitis (35) IBD (inflammatory bowel disease) (36) Elevated CEA (37) Pre-syncope (38) Shortness of breath (39) Asthma (40) Generalized weakness (41) COPD (chronic obstructive pulmonary disease) (42) Perianal abscess (43) Opioid dependence (44) Emphysema (45) Anemia (46) Crohns disease (47) Depression (48) Lumbar spondylosis (49) Interstitial lung disease (50) Asthma (51) Chronic pain (52) Herniated nucleus pulposus, lumbar (53) Radiculopathy of lumbar region (54) PNA (pneumonia) (55) Crohn's disease (56) Chronic pain syndrome (57) UTI (urinary tract infection) (58) Chronic pain disorder (59) COPD exacerbation (60) chr psych disorder (61) recurrent syncope (62) seizure disorder, exacerbation (63) Abdominal pain (64) COPD (chronic obstructive pulmonary disease) (65) Dyspnea (66) SOB (shortness of breath) (67) Leukocytosis (68) Seizure (69) Nausea (70) Hx SBO (71) Abdominal pain (72) Abdominal pain Physical Exam General Appearance: no apparent distress, alert Neurologic: alert, oriented x 3, responsive, depressed affect Last 24 Hour Vital Signs Date Time Temp Pulse Resp B/P (MAP) Pulse Ox O2 Delivery O2 Flow Rate FiO2 06/28/17 08:00 97.0 50 18 147/85 97 Room Air 06/28/17 08:00 78 18 Room Air 06/28/17 04:00 97.7 57 18 144/75 100 Room Air 06/28/17 00:00 97.0 79 20 135/79 100 Room Air 06/27/17 21:34 71 20 Room Air 21 06/27/17 20:00 98.6 71 20 135/68 100 Room Air 06/27/17 18:37 98.1 06/27/17 16:28 98.1 66 14 136/78 100 Room Air Laboratory Tests Test 06/28/17 05:05 White Blood Count 18.0 K/UL (4.8-10.8) H Red Blood Count 4.20 M/UL (4.20-5.40) Hemoglobin 11.2 G/DL (12.0-16.0) L Hematocrit 36.9 % (37.0-47.0) L Mean Corpuscular Volume 88 FL (80-99) Mean Corpuscular Hemoglobin 26.7 PG (27.0-31.0) L Mean Corpuscular Hemoglobin Concent 30.5 G/DL (32.0-36.0) L Red Cell Distribution Width 14.9 % (11.6-14.8) H Platelet Count 335 K/UL (150-450) Mean Platelet Volume 7.7 FL (6.5-10.1) Neutrophils (%) (Auto) % (45.0-75.0) Lymphocytes (%) (Auto) % (20.0-45.0) Monocytes (%) (Auto) % (1.0-10.0) Eosinophils (%) (Auto) % (0.0-3.0) Basophils (%) (Auto) % (0.0-2.0) Differential Total Cells Counted 100 Neutrophils % (Manual) 86 % (45-75) H Lymphocytes % (Manual) 8 % (20-45) L Monocytes % (Manual) 6 % (1-10) Eosinophils % (Manual) 0 % (0-3) Basophils % (Manual) 0 % (0-2) Band Neutrophils 0 % (0-8) Platelet Estimate Adequate Platelet Morphology Normal Red Blood Cell Morphology Hypochromasia 1+ Anisocytosis 1+ Sodium Level 138 MMOL/L (136-145) Potassium Level 4.6 MMOL/L (3.5-5.1) Chloride Level 108 MMOL/L (98-107) H Carbon Dioxide Level 27 MMOL/L (21-32) Anion Gap 3 mmol/L (5-15) L Blood Urea Nitrogen 19 mg/dL (7-18) H Creatinine 0.8 MG/DL (0.55-1.30) Estimat Glomerular Filtration Rate > 60 mL/min (>60) Glucose Level 122 MG/DL (74-106) H Calcium Level 9.0 MG/DL (8.5-10.1) Thyroid Stimulating Hormone (TSH) 0.156 uiU/mL (0.358-3.740) Height (Feet): 5 Height (Inches): 6.00 Weight (Pounds): 144 Medications Current Medications Medications (Trade) Dose Ordered Sig/Vaibhav Route PRN Reason Start Time Stop Time Status Last Admin Dose Admin Albuterol/ Ipratropium (Albuterol/ Ipratropium) 3 ml Q4H PRN HHN dyspnea 06/27/17 14:00 07/01/17 13:59 Atorvastatin Calcium (Lipitor) 40 mg BEDTIME ORAL 06/27/17 21:00 07/26/17 20:59 06/27/17 21:08 Azithromycin (Zithromax) 250 mg DAILY ORAL 06/29/17 09:00 07/06/17 08:59 Ceftriaxone Sodium 1 gm/ Dextrose 55 ml @ 110 mls/hr Q24H IVPB 06/27/17 14:00 07/04/17 13:59 06/27/17 15:48 Dextrose (Dextrose 50%) STAT PRN IV Hypoglycemia 06/27/17 14:00 07/26/17 13:59 Duloxetine HCl (Cymbalta) 60 mg DAILY ORAL 06/28/17 09:00 07/27/17 08:59 06/28/17 08:55 Heparin Sodium (Porcine) (Heparin 5000 units/ml) 5,000 units EVERY 12 HOURS SUBQ 06/27/17 21:00 07/26/17 20:59 06/28/17 08:57 Ketorolac Tromethamine (Toradol 30mg) 30 mg Q8H PRN IV moderate pain 4-6 06/27/17 14:00 07/01/17 13:59 Levetiracetam (Keppra) 1,000 mg BID ORAL 06/27/17 18:00 07/27/17 08:59 06/28/17 08:56 Levothyroxine Sodium (Synthroid) 75 mcg ACBREAKFAST ORAL 06/28/17 06:30 07/27/17 06:29 Lorazepam (Ativan 2mg/ml 1ml) 0.5 mg Q4H PRN IV For Anxiety 06/27/17 14:00 07/03/17 13:59 Mesalamine (Asacol) 800 mg THREE TIMES A DAY ORAL 06/28/17 13:00 07/28/17 12:59 Methylprednisolone Sodium Succinate (Solu-MEDROL) 60 mg Q8HR IV 06/27/17 14:00 07/27/17 00:00 06/28/17 05:55 Mirtazapine (Remeron) 15 mg BEDTIME ORAL 06/27/17 21:00 07/26/17 20:59 12/3/17 21:08 Morphine Sulfate (Morphine Sulfate) 2 mg Q4H PRN IVP severe pain 7-10 06/27/17 14:00 07/03/17 13:59 06/27/17 22:19 Nicotine (Nicoderm) 1 patch Q24H TDERMAL 06/28/17 09:00 07/27/17 08:59 06/28/17 08:56 Nitroglycerin (Ntg) 0.4 mg Q5M X 3 DOSES PRN SL Prn Chest Pain 06/27/17 13:30 07/26/17 19:44 Ondansetron HCl (Zofran) 4 mg Q6H PRN IVP Nausea & Vomiting 06/27/17 13:45 07/26/17 19:44 Promethazine HCl/ Codeine (Phenergan with Codeine) 5 ml Q6H PRN ORAL cough 06/27/17 13:45 07/26/17 19:44 Ranitidine HCl (Zantac) 150 mg TWICE A DAY ORAL 06/27/17 18:00 07/27/17 08:59 06/28/17 08:55 Sodium Chloride 1,000 ml @ 50 mls/hr Q20H IV 06/27/17 13:30 07/27/17 08:59 06/28/17 05:55 Temazepam (Restoril) 15 mg HSPRN PRN ORAL Insomnia 06/27/17 19:45 07/03/17 19:44 06/27/17 22:19 Theophylline (Erwin-Dur) 100 mg EVERY 12 HOURS ORAL 06/27/17 21:00 07/26/17 20:59 06/28/17 08:55 Trazodone HCl (Desyrel) 150 mg BEDTIME ORAL 06/27/17 21:00 07/26/17 20:59 06/27/17 21:08 Assessment/Plan Status: stable Status Narrative mdd Assessment/Plan dc Restoril dc Risperdal dc Remeron cont trazodone cont Seroquel start Constanza Pizarro M.D. Jun 28, 2017 11:43
--- NOTE | 2017-06-28 11:46 | Diagnostic Imaging Report ---
Indications: Altered metal status Technique: Spiral acquisitions obtained through the brain. Angled axial and coronal 5 x 5 mm slices were reconstructed. Total dose length product 1559 mGycm. CTDI vol(s) 70 mGy. Dose reduction achieved using automated exposure control Comparison: 07/10/2013 Findings: Prominent sella turcica may indicate empty sella. No acute hemorrhage or edema. No mass effect or midline shift. There is mild age-related enlargement of the ventricles and extra-axial CSF spaces. There is mild periventricular deep white matter chronic ischemic change normal queen-white differentiation otherwise. Visualized orbits are unremarkable. The visualized sinuses are clear. There is minimal mastoid opacification on the right. The calvarium is intact. There is no significant interim change Impression: Mild chronic and age-related changes, as described Negative for acute intracranial bleed or mass effect Incidental finding of minimal right mastoid opacification Incidental finding possible empty sella The CT scanner at [facility] is accredited by the [employer] and the scans are performed using protocols designed to limit radiation exposure to as low as reasonably achievable to attain images of sufficient resolution adequate for diagnostic evaluation.
[2017-06-28 12:00] VITALS: BP 136/77
--- NOTE | 2017-06-28 12:09 | Neurology Progress Note ---
Interim History Interim History ROS Limited/Unobtainable: No Complaints: still weakness when walking Events: stable Objective Physical Exam Last Vital Signs Date Time Temp Pulse Resp B/P (MAP) Pulse Ox O2 Delivery O2 Flow Rate FiO2 06/28/17 08:00 97.0 50 18 147/85 97 Room Air 06/28/17 08:00 21 Laboratory Tests Test 06/28/17 05:05 White Blood Count 18.0 K/UL (4.8-10.8) H Red Blood Count 4.20 M/UL (4.20-5.40) Hemoglobin 11.2 G/DL (12.0-16.0) L Hematocrit 36.9 % (37.0-47.0) L Mean Corpuscular Volume 88 FL (80-99) Mean Corpuscular Hemoglobin 26.7 PG (27.0-31.0) L Mean Corpuscular Hemoglobin Concent 30.5 G/DL (32.0-36.0) L Red Cell Distribution Width 14.9 % (11.6-14.8) H Platelet Count 335 K/UL (150-450) Mean Platelet Volume 7.7 FL (6.5-10.1) Neutrophils (%) (Auto) % (45.0-75.0) Lymphocytes (%) (Auto) % (20.0-45.0) Monocytes (%) (Auto) % (1.0-10.0) Eosinophils (%) (Auto) % (0.0-3.0) Basophils (%) (Auto) % (0.0-2.0) Differential Total Cells Counted 100 Neutrophils % (Manual) 86 % (45-75) H Lymphocytes % (Manual) 8 % (20-45) L Monocytes % (Manual) 6 % (1-10) Eosinophils % (Manual) 0 % (0-3) Basophils % (Manual) 0 % (0-2) Band Neutrophils 0 % (0-8) Platelet Estimate Adequate Platelet Morphology Normal Red Blood Cell Morphology Hypochromasia 1+ Anisocytosis 1+ Sodium Level 138 MMOL/L (136-145) Potassium Level 4.6 MMOL/L (3.5-5.1) Chloride Level 108 MMOL/L (98-107) H Carbon Dioxide Level 27 MMOL/L (21-32) Anion Gap 3 mmol/L (5-15) L Blood Urea Nitrogen 19 mg/dL (7-18) H Creatinine 0.8 MG/DL (0.55-1.30) Estimat Glomerular Filtration Rate > 60 mL/min (>60) Glucose Level 122 MG/DL (74-106) H Calcium Level 9.0 MG/DL (8.5-10.1) Thyroid Stimulating Hormone (TSH) 0.156 uiU/mL (0.358-3.740) General: well developed, well nourished, no acute distress Head: normocophalic, atraumatic Neck: no rigidity, other Neurologic Exam Mental Status: awake, alert, oriented x4, normal cognition, good mathematical skills, normal recent memory, normal remote memory, preserved visuospatial function Speech: normal speech, no dysarthia Language: normal language, no aphasia Cranial Nerve II: fundus normal, visual davalos, no papilledema Cranial Nerves III, IV, : PERRLA, EOMI, pupils Cranial Nerve V: normal facial sensations, temporales function normal, masseters function normal, pterygoids function normal Cranial Nerve VII: no facial asymmetry, normal facial expressions Cranial Nerve VIII: normal hearing, no nystagmus Cranial Nerve IX: normal palate elevation, gag response Cranial Nerve X: no voice hoarseness Cranial Nerve XI: SCM symmetric, trapezii function normal Cranial Nerve XII: tongue midline, no tongue atrophy/fasciculations Motor System: normal muscle tone, strength 5/5, no involuntary movement, no muscle wasting Sensory: normal pinprick, normal light touch, normal position sense, normal graphesthesia Coordination: normal finger to nose bilaterally, normal heel to sanderson bilaterally, negative Romberg test Deep Tendon Reflexes: 1+ bicep (L), 1+ bicep (R), 1+ tricep (L), 1+ tricep (R) , 1+ brachioradialis (L), 1+ brachioradialis (R), 1+ knee (L), 1+ knee (R), 1+ ankle (L), 1+ ankle (R) Reflexes: flexor plantar (L), flexor plantar (R) Stance: other Gait: normal regular, other Impression/Recommendations Problems: (1) seizure disorder, exacerbation (2) chr psych disorder (3) Chronic pain disorder (4) recurrent syncope (5) COPD exacerbation (6) Crohn's disease (7) UTI (urinary tract infection) Status: stable Recommendations # [id number] berhane 1500bid CT brain nl MARCUS GIL Jun 28, 2017 12:09
--- NOTE | 2017-06-28 13:25 | General Progress Note ---
Assessment/Plan Problem List: (1) Abdominal pain (2) Hx SBO ICD Codes: Z87.19 - Personal history of other diseases of the digestive system SNOMED: 301274701 (3) Dyspnea (4) SOB (shortness of breath) ICD Codes: R06.02 - Shortness of breath SNOMED: 084573806 (5) Nausea ICD Codes: R11.0 - Nausea SNOMED: 052477297 (6) Abdominal pain (7) Leukocytosis ICD Codes: D72.829 - Leukocytosis SNOMED: 725503554 (8) Seizure ICD Codes: R56.9 - Unspecified convulsions SNOMED: 60651785 (9) COPD (chronic obstructive pulmonary disease) ICD Codes: J44.9 - Chronic obstructive pulmonary disease, unspecified SNOMED: 79650440 (10) Generalized weakness ICD Codes: R53.1 - Weakness SNOMED: 73098668 (11) Crohns disease ICD Codes: K50.90 - Crohns disease SNOMED: 86089312 (12) Chronic pain ICD Codes: G89.29 - Other chronic pain SNOMED: 35445868 (13) UTI (urinary tract infection) ICD Codes: N39.0 - Urinary tract infection, site not specified SNOMED: 87046874 Status: stable, progressing, tolerating diet Assessment/Plan ot pt diet abx o2 pulm tx pain control cbc bmp am Subjective Constitutional: Reports: weakness Allergies: Coded Allergies: No Known Allergies (Verified , 05/21/06) All Systems: reviewed and negative except above Subjective sl weak in bed Objective Last 24 Hour Vital Signs Date Time Temp Pulse Resp B/P (MAP) Pulse Ox O2 Delivery O2 Flow Rate FiO2 06/28/17 12:00 97.7 95 19 136/77 97 Room Air 06/28/17 08:00 97.0 50 18 147/85 97 Room Air 06/28/17 08:00 78 18 Room Air 21 06/28/17 04:00 97.7 57 18 144/75 100 Room Air 06/28/17 00:00 97.0 79 20 135/79 100 Room Air 06/27/17 21:34 71 20 Room Air 21 06/27/17 20:00 98.6 71 20 135/68 100 Room Air 06/27/17 18:37 98.1 06/27/17 16:28 98.1 66 14 136/78 100 Room Air Intake and Output 06/28/17 06/29/17 19:00 07:00 Intake Total 150 ml Balance 150 ml IV Total 150 ml Laboratory Tests 06/28/17 05:05: White Blood Count 18.0H, Red Blood Count 4.20, Hemoglobin 11.2L, Hematocrit 36.9L, Mean Corpuscular Volume 88, Mean Corpuscular Hemoglobin 26.7L, Mean Corpuscular Hemoglobin Concent 30.5L, Red Cell Distribution Width 14.9H, Platelet Count 335, Mean Platelet Volume 7.7, Neutrophils (%) (Auto) , Lymphocytes (%) (Auto) , Monocytes (%) (Auto) , Eosinophils (%) (Auto) , Basophils (%) (Auto) , Differential Total Cells Counted 100, Neutrophils % ( Manual) 86H, Lymphocytes % (Manual) 8L, Monocytes % (Manual) 6, Eosinophils % ( Manual) 0, Basophils % (Manual) 0, Band Neutrophils 0, Platelet Estimate Adequate, Platelet Morphology Normal, Red Blood Cell Morphology , Hypochromasia 1+, Anisocytosis 1+, Sodium Level 138, Potassium Level 4.6, Chloride Level 108H , Carbon Dioxide Level 27, Anion Gap 3L, Blood Urea Nitrogen 19H, Creatinine 0.8 , Estimat Glomerular Filtration Rate > 60, Glucose Level 122H, Calcium Level 9.0 , Thyroid Stimulating Hormone (TSH) 0.156L Height (Feet): 5 Height (Inches): 6.00 Weight (Pounds): 144 General Appearance: lethargic EENT: normal ENT inspection Neck: normal alignment Cardiovascular: normal peripheral pulses, normal rate, regular rhythm Respiratory/Chest: chest wall non-tender, lungs clear, normal breath sounds Abdomen: normal bowel sounds, non tender, soft Extremities: normal inspection Edema: no edema noted Arm (L), no edema noted Arm (R), no edema noted Leg (L), no edema noted Leg (R), no edema noted Pedal (L), no edema noted Pedal (R), no edema noted Generalized Neurologic: responsive, motor weakness Skin: normal pigmentation, warm/dry BAYRON BENEDICT Jun 28, 2017 13:24
[2017-06-28] MEDS: Mesalamine 400mg cap ORAL SCH ×2 (14:00→17:32)
[2017-06-28] MEDS: cefTRIAXone 1 GM in D5W 55 ML IVPB SCH (14:00)
[2017-06-28] MEDS: Morphine Sulfate 2mg/ml Inj IVP PRN ×2 (14:01→19:45)
--- NOTE | 2017-06-28 16:17 | Pulmonology Progress Note ---
Assessment/Plan Problems: (1) COPD exacerbation (2) Chronic pain disorder (3) seizure disorder, exacerbation (4) Crohn's disease Assessment/Plan taper steroids respiratory treatment symptomatic treatment titrate fio2 to sat of 92 Subjective ROS Limited/Unobtainable: No Interval Events: c/o sore lesion in the mucosal area of mouth Constitutional: Reports: no symptoms HEENT: Repors: no symptoms Allergies: Coded Allergies: No Known Allergies (Verified , 05/21/06) Objective Last 24 Hour Vital Signs Date Time Temp Pulse Resp B/P (MAP) Pulse Ox O2 Delivery O2 Flow Rate FiO2 06/28/17 14:48 97.7 06/28/17 12:00 97.7 95 19 136/77 97 Room Air 06/28/17 08:00 97.0 50 18 147/85 97 Room Air 06/28/17 08:00 78 18 Room Air 21 06/28/17 04:00 97.7 57 18 144/75 100 Room Air 06/28/17 00:00 97.0 79 20 135/79 100 Room Air 06/27/17 21:34 71 20 Room Air 21 06/27/17 20:00 98.6 71 20 135/68 100 Room Air 06/27/17 16:28 98.1 66 14 136/78 100 Room Air Intake and Output 06/28/17 06/29/17 19:00 07:00 Intake Total 150 ml Balance 150 ml IV Total 150 ml General Appearance: WD/WN HEENT: normocephalic, atraumatic Breasts: no masses Cardiovascular: normal peripheral pulses, normal rate Abdomen: normal bowel sounds, soft, non tender, no scars Extremities: no cyanosis Skin: no rash, no ulcers Neurologic/Psychiatric: care nurse rn II-XII grossly normal, abnormal gait Laboratory Tests 06/28/17 05:05: White Blood Count 18.0H, Red Blood Count 4.20, Hemoglobin 11.2L, Hematocrit 36.9L, Mean Corpuscular Volume 88, Mean Corpuscular Hemoglobin 26.7L, Mean Corpuscular Hemoglobin Concent 30.5L, Red Cell Distribution Width 14.9H, Platelet Count 335, Mean Platelet Volume 7.7, Neutrophils (%) (Auto) , Lymphocytes (%) (Auto) , Monocytes (%) (Auto) , Eosinophils (%) (Auto) , Basophils (%) (Auto) , Differential Total Cells Counted 100, Neutrophils % ( Manual) 86H, Lymphocytes % (Manual) 8L, Monocytes % (Manual) 6, Eosinophils % ( Manual) 0, Basophils % (Manual) 0, Band Neutrophils 0, Platelet Estimate Adequate, Platelet Morphology Normal, Red Blood Cell Morphology , Hypochromasia 1+, Anisocytosis 1+, Sodium Level 138, Potassium Level 4.6, Chloride Level 108H , Carbon Dioxide Level 27, Anion Gap 3L, Blood Urea Nitrogen 19H, Creatinine 0.8 , Estimat Glomerular Filtration Rate > 60, Glucose Level 122H, Calcium Level 9.0 , Thyroid Stimulating Hormone (TSH) 0.156L Current Medications Medications (Trade) Dose Ordered Sig/Vaibhav Route PRN Reason Start Time Stop Time Status Last Admin Dose Admin Albuterol/ Ipratropium (Albuterol/ Ipratropium) 3 ml Q4H PRN HHN dyspnea 06/27/17 14:00 07/01/17 13:59 Atorvastatin Calcium (Lipitor) 40 mg BEDTIME ORAL 06/27/17 21:00 07/26/17 20:59 06/27/17 21:08 Azithromycin (Zithromax) 250 mg DAILY ORAL 06/29/17 09:00 07/06/17 08:59 Ceftriaxone Sodium 1 gm/ Dextrose 55 ml @ 110 mls/hr Q24H IVPB 06/27/17 14:00 07/04/17 13:59 06/28/17 14:00 Dextrose (Dextrose 50%) STAT PRN IV Hypoglycemia 06/27/17 14:00 07/26/17 13:59 Duloxetine HCl (Cymbalta) 60 mg DAILY ORAL 06/28/17 09:00 07/27/17 08:59 06/28/17 08:55 Heparin Sodium (Porcine) (Heparin 5000 units/ml) 5,000 units EVERY 12 HOURS SUBQ 06/27/17 21:00 07/26/17 20:59 06/28/17 08:57 Ketorolac Tromethamine (Toradol 30mg) 30 mg Q8H PRN IV moderate pain 4-6 06/27/17 14:00 07/01/17 13:59 Levetiracetam (Keppra) 1,500 mg Q12HR ORAL 06/28/17 21:00 07/28/17 20:59 Levothyroxine Sodium (Synthroid) 75 mcg ACBREAKFAST ORAL 06/28/17 06:30 07/27/17 06:29 Lorazepam (Ativan 2mg/ml 1ml) 0.5 mg Q4H PRN IV For Anxiety 06/27/17 14:00 07/03/17 13:59 Mesalamine (Asacol) 800 mg THREE TIMES A DAY ORAL 06/28/17 13:00 07/28/17 12:59 06/28/17 14:00 Methylprednisolone Sodium Succinate (Solu-MEDROL) 60 mg Q8HR IV 06/27/17 14:00 07/27/17 00:00 06/28/17 14:01 Morphine Sulfate (Morphine Sulfate) 2 mg Q4H PRN IVP severe pain 7-10 06/27/17 14:00 07/03/17 13:59 06/28/17 14:01 Nicotine (Nicoderm) 1 patch Q24H TDERMAL 06/28/17 09:00 07/27/17 08:59 06/28/17 08:56 Nitroglycerin (Ntg) 0.4 mg Q5M X 3 DOSES PRN SL Prn Chest Pain 06/27/17 13:30 07/26/17 19:44 Ondansetron HCl (Zofran) 4 mg Q6H PRN IVP Nausea & Vomiting 06/27/17 13:45 07/26/17 19:44 Promethazine HCl/ Codeine (Phenergan with Codeine) 5 ml Q6H PRN ORAL cough 06/27/17 13:45 07/26/17 19:44 Quetiapine Fumarate (SEROquel) 100 mg BEDTIME ORAL 06/28/17 21:00 07/28/17 20:59 Ranitidine HCl (Zantac) 150 mg TWICE A DAY ORAL 06/27/17 18:00 07/27/17 08:59 06/28/17 08:55 Sodium Chloride 1,000 ml @ 50 mls/hr Q20H IV 06/27/17 13:30 07/27/17 08:59 06/28/17 05:55 Theophylline (Erwin-Dur) 100 mg EVERY 12 HOURS ORAL 06/27/17 21:00 07/26/17 20:59 06/28/17 08:55 Trazodone HCl (Desyrel) 150 mg BEDTIME ORAL 06/27/17 21:00 07/26/17 20:59 06/27/17 21:08 Zolpidem Tartrate (Ambien) 5 mg HSPRN PRN ORAL Insomnia 06/28/17 21:00 07/05/17 20:59 DWAYNE SOTO Jun 28, 2017 16:17
[2017-06-28] MEDS ORDERED: ORAJEL 20% ORO PRN (16:30)
--- NOTE | 2017-06-28 18:41 | Cardiology Report ---
APPROVED REPORT EKG Measurement Heart [id number] Normal sinus rhythm Normal ECG
[2017-06-28 20:02] VITALS: BP 137/77
[2017-06-28] MEDS: TraZODone 50mg tab ORAL SCH (20:52)
[2017-06-28] MEDS: Atorvastatin 20mg tab ORAL SCH (20:53)
[2017-06-28] MEDS ORDERED: Zolpidem 5mg tab ORAL PRN (21:00)
--- NOTE | 2017-06-28 21:00 | Consultation ---
DATE OF CONSULTATION: CONSULTING PHYSICIAN: Mena Goncalves M.D. REFERRING PHYSICIAN: Barber Dial D.O. HISTORY OF PRESENT ILLNESS: This is a 56-year-old female patient. She is admitted to [facility] secondary to COPD exacerbation as well as history of depression, rule out bipolar 2 disorder, and also has a history of irritable bowel. She states that she is suffering from anxiety and depression secondary to the progression of her medical illness. ALLERGIES: No known drug allergies. MEDICAL PROBLEMS: See Internal Medicine notes. SUBSTANCE USE HISTORY: Denies drug or alcohol use. PSYCHIATRIC HISTORY: Major depression, bipolar 2. MENTAL STATUS EXAMINATION: This is a 66-year-old female with psychomotor retardation. Mood is depressed. Affect guarded and restricted. Thought process disorganized and illogical. Denies any current suicidal or homicidal ideation. Her insight and judgement is poor. DIAGNOSIS: Major depressive disorder, mild, recurrent, without psychotic features. PLAN: Treat her with Remeron 15 mg at bedside and Cymbalta nightly. Chart reviewed and discussed with staff. I would like to thank Dr. Barber Dial for this interesting consultation. Seen and assessed at bedside. Mena Goncalves M.D. : Mine JOB#: [id number] CC:
[2017-06-29 00:45] VITALS: BP 140/80
[2017-06-29] MEDS: Morphine Sulfate 2mg/ml Inj IVP PRN ×2 (02:24→09:04)
[2017-06-29 04:00] VITALS: BP 139/77
[2017-06-29 07:52] VITALS: BP 137/83
[2017-06-29 08:05] LABS: ANION GAP 3 mmol/L (5-15); CALCIUM 9.1 MG/DL (8.5-10.1); CARBON DIOXIDE 30 MMOL/L (21-32); CHLORIDE 108 MMOL/L (98-107); CREATININE 0.8 MG/DL (0.55-1.30); CRP QUANT 3.6 mg/dL (0.00-0.90); GLOMERULAR FILTRATION RATE > 60 mL/min (>60); POTASSIUM 4.4 MMOL/L (3.5-5.1); SODIUM 141 MMOL/L (136-145)
[2017-06-29 08:15] LABS: IRON 11 ug/dL (50-175); TOTAL IRON BINDING CAPACITY 226 ug/dL (250-450)
[2017-06-29 08:43] LABS: BASOPHILS % (AUTO) 0.5 % (0.0-2.0); LYMPHOCYTES % (AUTO) 9.8 % (20.0-45.0); MEAN CORPUSCULAR HEMOGLOBIN 26.9 PG (27.0-31.0); MEAN CORPUSCULAR VOLUME 90 FL (80-99); MEAN PLATELET VOLUME 6.6 FL (6.5-10.1); MONOCYTES % (AUTO) 8.6 % (1.0-10.0); NEUTROPHILS % (AUTO) 81.1 % (45.0-75.0); PLATELET COUNT 293 K/UL (150-450); RED BLOOD COUNT 4.17 M/UL (4.20-5.40); WHITE BLOOD COUNT 14.8 K/UL (4.8-10.8)
[2017-06-29 08:55] LABS: ERYTHROCYTE SEDIMENTATION RATE 70 MM/HR (0-30)
[2017-06-29] MEDS: Solu-MEDROL 125mg Inj IV SCH (08:59)
[2017-06-29] MEDS ORDERED: Azithromycin 250mg tab ORAL SCH (09:00)
[2017-06-29] MEDS: Mesalamine 400mg cap ORAL SCH ×2 (09:01→13:02)
[2017-06-29] MEDS: Theophylline ER 100mg ORAL SCH (09:01)
[2017-06-29] MEDS: DULoxetine 30mg cap ORAL SCH (09:01)
[2017-06-29] MEDS: Heparin 5000 units/ml inj SUBQ SCH (09:02)
[2017-06-29 11:47] VITALS: BP 135/79
[2017-06-29] MEDS: cefTRIAXone 1 GM in D5W 55 ML IVPB SCH (13:02)
--- NOTE | 2017-06-29 13:35 | General Progress Note ---
Assessment/Plan Problem List: (1) Abdominal pain (2) Hx SBO ICD Codes: Z87.19 - Personal history of other diseases of the digestive system SNOMED: 390216625 (3) Dyspnea (4) SOB (shortness of breath) ICD Codes: R06.02 - Shortness of breath SNOMED: 544248260 (5) Nausea ICD Codes: R11.0 - Nausea SNOMED: 919686731 (6) Abdominal pain (7) Leukocytosis ICD Codes: D72.829 - Leukocytosis SNOMED: 665573417 (8) Seizure ICD Codes: R56.9 - Unspecified convulsions SNOMED: 25306498 (9) COPD (chronic obstructive pulmonary disease) ICD Codes: J44.9 - Chronic obstructive pulmonary disease, unspecified SNOMED: 67200110 (10) Generalized weakness ICD Codes: R53.1 - Weakness SNOMED: 73206400 (11) Crohns disease ICD Codes: K50.90 - Crohns disease SNOMED: 68623167 (12) Chronic pain ICD Codes: G89.29 - Other chronic pain SNOMED: 06563145 (13) UTI (urinary tract infection) ICD Codes: N39.0 - Urinary tract infection, site not specified SNOMED: 38302568 Status: stable, progressing, tolerating diet Assessment/Plan ot pt diet abx o2 pulm tx pain control dc if clear Subjective Constitutional: Reports: weakness Allergies: Coded Allergies: No Known Allergies (Verified , 05/21/06) All Systems: reviewed and negative except above Subjective feeling better wants to go home Objective Last 24 Hour Vital Signs Date Time Temp Pulse Resp B/P (MAP) Pulse Ox O2 Delivery O2 Flow Rate FiO2 06/29/17 11:47 97.5 60 19 135/79 100 Nasal Cannula 2.0 06/29/17 07:52 97.4 58 18 137/83 97 Nasal Cannula 2.0 06/29/17 07:10 74 16 Room Air 21 06/29/17 04:20 Room Air 06/29/17 04:00 97.6 69 18 139/77 100 06/29/17 00:45 98.0 60 17 140/80 97 06/28/17 20:24 Room Air 06/28/17 20:02 98.1 69 18 137/77 97 06/28/17 19:00 72 18 Room Air 21 06/28/17 14:48 97.7 Intake and Output 06/29/17 06/30/17 19:00 07:00 Intake Total 50 ml Balance 50 ml IV Total 50 ml Laboratory Tests 06/29/17 06:30: White Blood Count 14.8H, Red Blood Count 4.17L, Hemoglobin 11.2L, Hematocrit 37.4, Mean Corpuscular Volume 90, Mean Corpuscular Hemoglobin 26.9L, Mean Corpuscular Hemoglobin Concent 30.0L, Red Cell Distribution Width 15.0H, Platelet Count 293, Mean Platelet Volume 6.6, Neutrophils (%) (Auto) 81.1H, Lymphocytes (%) (Auto) 9.8L, Monocytes (%) (Auto) 8.6, Eosinophils (%) (Auto) 0.0, Basophils (%) (Auto) 0.5, Erythrocyte Sedimentation Rate 70H, Sodium Level 141, Potassium Level 4.4, Chloride Level 108H, Carbon Dioxide Level 30, Anion Gap 3L, Blood Urea Nitrogen 31H, Creatinine 0.8, Estimat Glomerular Filtration Rate > 60, Glucose Level 102, Calcium Level 9.1, Iron Level 11L, Total Iron Binding Capacity 226L, Percent Iron Saturation 5L, Unsaturated Iron Binding 215 , C-Reactive Protein, Quantitative 3.6H Height (Feet): 5 Height (Inches): 6.00 Weight (Pounds): 144 General Appearance: alert EENT: normal ENT inspection Neck: normal alignment Cardiovascular: normal peripheral pulses, normal rate, regular rhythm Respiratory/Chest: chest wall non-tender, lungs clear, normal breath sounds Abdomen: normal bowel sounds, non tender, soft Extremities: normal inspection Edema: no edema noted Arm (L), no edema noted Arm (R), no edema noted Leg (L), no edema noted Leg (R), no edema noted Pedal (L), no edema noted Pedal (R), no edema noted Generalized Neurologic: responsive, motor weakness Skin: normal pigmentation, warm/dry BAYRON BENEDICT Jun 29, 2017 13:35
--- NOTE | 2017-06-29 13:58 | Infectious Diseases Prog Note ---
Assessment/Plan Assessment/Plan A; COPD/ Pneumonia Leukocytosis may be steroid related, improving Nicotine dependence Crohn's disease P; Change to PO Levaquin 750 mg X 4days Nicotine patch Subjective ROS Limited/Unobtainable: No Constitutional: Reports: no symptoms, other - feels better Respiratory: Reports: productive cough Gastrointestinal/Abdominal: Reports: no symptoms Genitourinary: Reports: no symptoms Allergies: Coded Allergies: No Known Allergies (Verified , 05/21/06) Objective Vital Signs Last 24 Hour Vital Signs Date Time Temp Pulse Resp B/P (MAP) Pulse Ox O2 Delivery O2 Flow Rate FiO2 06/29/17 11:47 97.5 60 19 135/79 100 Nasal Cannula 2.0 06/29/17 07:52 97.4 58 18 137/83 97 Nasal Cannula 2.0 06/29/17 07:10 74 16 Room Air 21 06/29/17 04:20 Room Air 06/29/17 04:00 97.6 69 18 139/77 100 06/29/17 00:45 98.0 60 17 140/80 97 06/28/17 20:24 Room Air 06/28/17 20:02 98.1 69 18 137/77 97 06/28/17 19:00 72 18 Room Air 21 06/28/17 14:48 97.7 Height (Feet): 5 Height (Inches): 6.00 Weight (Pounds): 144 General Appearance: no acute distress HEENT: mucous membranes moist Respiratory/Chest: lungs clear Cardiovascular: normal rate Abdomen: soft, non tender Extremities: no edema Neurologic/Psychiatric: alert, oriented x 3, responsive Laboratory Tests Test 06/29/17 06:30 White Blood Count 14.8 K/UL (4.8-10.8) H Red Blood Count 4.17 M/UL (4.20-5.40) L Hemoglobin 11.2 G/DL (12.0-16.0) L Hematocrit 37.4 % (37.0-47.0) Mean Corpuscular Volume 90 FL (80-99) Mean Corpuscular Hemoglobin 26.9 PG (27.0-31.0) L Mean Corpuscular Hemoglobin Concent 30.0 G/DL (32.0-36.0) L Red Cell Distribution Width 15.0 % (11.6-14.8) H Platelet Count 293 K/UL (150-450) Mean Platelet Volume 6.6 FL (6.5-10.1) Neutrophils (%) (Auto) 81.1 % (45.0-75.0) H Lymphocytes (%) (Auto) 9.8 % (20.0-45.0) L Monocytes (%) (Auto) 8.6 % (1.0-10.0) Eosinophils (%) (Auto) 0.0 % (0.0-3.0) Basophils (%) (Auto) 0.5 % (0.0-2.0) Erythrocyte Sedimentation Rate 70 MM/HR (0-30) H Sodium Level 141 MMOL/L (136-145) Potassium Level 4.4 MMOL/L (3.5-5.1) Chloride Level 108 MMOL/L (98-107) H Carbon Dioxide Level 30 MMOL/L (21-32) Anion Gap 3 mmol/L (5-15) L Blood Urea Nitrogen 31 mg/dL (7-18) H Creatinine 0.8 MG/DL (0.55-1.30) Estimat Glomerular Filtration Rate > 60 mL/min (>60) Glucose Level 102 MG/DL (74-106) Calcium Level 9.1 MG/DL (8.5-10.1) Iron Level 11 ug/dL (50-175) L Total Iron Binding Capacity 226 ug/dL (250-450) L Percent Iron Saturation 5 % (15-50) L Unsaturated Iron Binding 215 ug/dL (112-346) C-Reactive Protein, Quantitative 3.6 mg/dL (0.00-0.90) H Current Medications Medications (Trade) Dose Ordered Sig/Vaibhav Route PRN Reason Start Time Stop Time Status Last Admin Dose Admin Albuterol/ Ipratropium (Albuterol/ Ipratropium) 3 ml Q4H PRN HHN dyspnea 06/27/17 14:00 07/01/17 13:59 Atorvastatin Calcium (Lipitor) 40 mg BEDTIME ORAL 06/27/17 21:00 07/26/17 20:59 06/28/17 20:53 Azithromycin (Zithromax) 250 mg DAILY ORAL 06/29/17 09:00 07/06/17 08:59 06/29/17 09:00 Benzocaine (Orajel) 1 applic QIDPRN PRN ILIANA pain from mouth sores 06/28/17 16:30 07/28/17 16:29 06/28/17 17:32 Ceftriaxone Sodium 1 gm/ Dextrose 55 ml @ 110 mls/hr Q24H IVPB 06/27/17 14:00 07/04/17 13:59 06/29/17 13:02 Dextrose (Dextrose 50%) STAT PRN IV Hypoglycemia 06/27/17 14:00 07/26/17 13:59 Duloxetine HCl (Cymbalta) 60 mg DAILY ORAL 06/28/17 09:00 07/27/17 08:59 06/29/17 09:01 Heparin Sodium (Porcine) (Heparin 5000 units/ml) 5,000 units EVERY 12 HOURS SUBQ 06/27/17 21:00 07/26/17 20:59 06/29/17 09:02 Iron Sucrose 100 mg/Sodium Chloride 60 ml @ 240 mls/hr BEDTIME IV 06/29/17 21:00 07/03/17 21:14 Ketorolac Tromethamine (Toradol 30mg) 30 mg Q8H PRN IV moderate pain 4-6 06/27/17 14:00 07/01/17 13:59 Levetiracetam (Keppra) 1,500 mg Q12HR ORAL 06/28/17 21:00 07/28/17 20:59 06/29/17 09:00 Levothyroxine Sodium (Synthroid) 75 mcg ACBREAKFAST ORAL 06/28/17 06:30 07/27/17 06:29 06/29/17 06:14 Lorazepam (Ativan 2mg/ml 1ml) 0.5 mg Q4H PRN IV For Anxiety 06/27/17 14:00 07/03/17 13:59 06/29/17 05:13 Mesalamine (Asacol) 800 mg THREE TIMES A DAY ORAL 06/28/17 13:00 07/28/17 12:59 06/29/17 13:02 Methylprednisolone Sodium Succinate (Solu-MEDROL) 60 mg EVERY 12 HOURS IV 06/28/17 21:00 07/27/17 00:00 06/29/17 08:59 Morphine Sulfate (Morphine Sulfate) 2 mg Q4H PRN IVP severe pain 7-10 06/27/17 14:00 07/03/17 13:59 12/5/17 02:24 Nicotine (Nicoderm) 1 patch Q24H TDERMAL 06/28/17 09:00 07/27/17 08:59 06/29/17 09:02 Nitroglycerin (Ntg) 0.4 mg Q5M X 3 DOSES PRN SL Prn Chest Pain 06/27/17 13:30 07/26/17 19:44 Ondansetron HCl (Zofran) 4 mg Q6H PRN IVP Nausea & Vomiting 06/27/17 13:45 07/26/17 19:44 Promethazine HCl/ Codeine (Phenergan with Codeine) 5 ml Q6H PRN ORAL cough 06/27/17 13:45 07/26/17 19:44 Quetiapine Fumarate (SEROquel) 100 mg BEDTIME ORAL 06/28/17 21:00 07/28/17 20:59 06/28/17 20:53 Ranitidine HCl (Zantac) 150 mg TWICE A DAY ORAL 06/27/17 18:00 07/27/17 08:59 06/29/17 09:00 Sodium Chloride 1,000 ml @ 50 mls/hr Q20H IV 06/27/17 13:30 07/27/17 08:59 06/29/17 04:13 Theophylline (Erwin-Dur) 100 mg EVERY 12 HOURS ORAL 06/27/17 21:00 07/26/17 20:59 06/29/17 09:01 Trazodone HCl (Desyrel) 150 mg BEDTIME ORAL 06/27/17 21:00 07/26/17 20:59 06/28/17 20:52 Zolpidem Tartrate (Ambien) 5 mg HSPRN PRN ORAL Insomnia 06/28/17 21:00 07/05/17 20:59 06/28/17 21:07 IVAN JOSÉ Jun 29, 2017 13:58
[2017-06-29] MEDS ORDERED: LEVAQUIN750 MG ORAL (14:44)
[2017-06-29] MEDS ORDERED: PENTASA500 MG ORAL (15:12)
--- NOTE | 2017-06-29 15:22 | General Progress Note ---
Assessment/Plan Status: stable, progressing Assessment/Plan cont current meds Subjective Date patient seen: Jun 29, 2017 Neurologic/Psychiatric: Reports: anxiety, depressed, emotional problems Allergies: Coded Allergies: No Known Allergies (Verified , 05/21/06) Subjective the pt is doing well tolerating meds Objective Last 24 Hour Vital Signs Date Time Temp Pulse Resp B/P (MAP) Pulse Ox O2 Delivery O2 Flow Rate FiO2 06/29/17 11:47 97.5 60 19 135/79 100 Nasal Cannula 2.0 06/29/17 07:52 97.4 58 18 137/83 97 Nasal Cannula 2.0 06/29/17 07:10 74 16 Room Air 21 06/29/17 04:20 Room Air 06/29/17 04:00 97.6 69 18 139/77 100 06/29/17 00:45 98.0 60 17 140/80 97 06/28/17 20:24 Room Air 06/28/17 20:02 98.1 69 18 137/77 97 06/28/17 19:00 72 18 Room Air 21 Intake and Output 06/29/17 06/30/17 19:00 07:00 Intake Total 530 ml Balance 530 ml Intake Oral 480 ml IV Total 50 ml Laboratory Tests 06/29/17 06:30: White Blood Count 14.8H, Red Blood Count 4.17L, Hemoglobin 11.2L, Hematocrit 37.4, Mean Corpuscular Volume 90, Mean Corpuscular Hemoglobin 26.9L, Mean Corpuscular Hemoglobin Concent 30.0L, Red Cell Distribution Width 15.0H, Platelet Count 293, Mean Platelet Volume 6.6, Neutrophils (%) (Auto) 81.1H, Lymphocytes (%) (Auto) 9.8L, Monocytes (%) (Auto) 8.6, Eosinophils (%) (Auto) 0.0, Basophils (%) (Auto) 0.5, Erythrocyte Sedimentation Rate 70H, Sodium Level 141, Potassium Level 4.4, Chloride Level 108H, Carbon Dioxide Level 30, Anion Gap 3L, Blood Urea Nitrogen 31H, Creatinine 0.8, Estimat Glomerular Filtration Rate > 60, Glucose Level 102, Calcium Level 9.1, Iron Level 11L, Total Iron Binding Capacity 226L, Percent Iron Saturation 5L, Unsaturated Iron Binding 215 , C-Reactive Protein, Quantitative 3.6H Height (Feet): 5 Height (Inches): 6.00 Weight (Pounds): 144 General Appearance: no apparent distress, alert Neurologic: alert, oriented x 3, responsive, depressed affect Constanza Guardado M.D. Jun 29, 2017 15:22
[2017-06-29] MEDS ORDERED: NS 500ML ONE (15:34)
[2017-06-29] MEDS ORDERED: Tubing IV Secondary IV ONE (15:34)
--- NOTE | 2017-06-29 16:03 | GI Progress Note ---
Assessment/Plan Problems: (1) Crohns disease ICD Codes: K50.90 - Crohns disease SNOMED: 29117667 (2) Anemia (3) Chronic pain syndrome ICD Codes: G89.4 - Chronic pain syndrome SNOMED: 933691829 (4) Abdominal pain (5) Ileus ICD Codes: K56.7 - Ileus, unspecified SNOMED: 134824353 (6) Therapeutic opioid-induced constipation (OIC) ICD Codes: K59.03 - Drug induced constipation; T40.2X5A - Adverse effect of other opioids, initial encounter SNOMED: 984202598381744 Status: stable Status Narrative Discussed with Dr. Gallegos. Assessment/Plan s/p EGD/colon 2016 >> , crohns non functional implanted morphine pump LLQ Hx of CEA & CA19-9 elevation okay for DC per GI standpoint symptomatic treatment at this time adv to regular diet electrolyte replacement pain mgmt ppi Imodium prn, consider lomotil if diarrhea persists Rx give for Pentasa + 6MP, patient to follow up with us in clinic. The patient was seen and examined at bedside and all new and available data was reviewed in the patients chart. I agree with the above findings, impression and plan. (Patient seen earlier today. Signature stamp does not reflect patient encounter time.). - Tami Gallegos MD Subjective Gastrointestinal/Abdominal: Reports: no symptoms Subjective ready to go home Objective Last 24 Hour Vital Signs Date Time Temp Pulse Resp B/P (MAP) Pulse Ox O2 Delivery O2 Flow Rate FiO2 06/29/17 11:47 97.5 60 19 135/79 100 Nasal Cannula 2.0 06/29/17 07:52 97.4 58 18 137/83 97 Nasal Cannula 2.0 06/29/17 07:10 74 16 Room Air 21 06/29/17 04:20 Room Air 06/29/17 04:00 97.6 69 18 139/77 100 06/29/17 00:45 98.0 60 17 140/80 97 06/28/17 20:24 Room Air 06/28/17 20:02 98.1 69 18 137/77 97 06/28/17 19:00 72 18 Room Air 21 Intake and Output 06/29/17 06/30/17 19:00 07:00 Intake Total 530 ml Balance 530 ml Intake Oral 480 ml IV Total 50 ml Laboratory Tests Test 06/29/17 06:30 White Blood Count 14.8 K/UL (4.8-10.8) H Red Blood Count 4.17 M/UL (4.20-5.40) L Hemoglobin 11.2 G/DL (12.0-16.0) L Hematocrit 37.4 % (37.0-47.0) Mean Corpuscular Volume 90 FL (80-99) Mean Corpuscular Hemoglobin 26.9 PG (27.0-31.0) L Mean Corpuscular Hemoglobin Concent 30.0 G/DL (32.0-36.0) L Red Cell Distribution Width 15.0 % (11.6-14.8) H Platelet Count 293 K/UL (150-450) Mean Platelet Volume 6.6 FL (6.5-10.1) Neutrophils (%) (Auto) 81.1 % (45.0-75.0) H Lymphocytes (%) (Auto) 9.8 % (20.0-45.0) L Monocytes (%) (Auto) 8.6 % (1.0-10.0) Eosinophils (%) (Auto) 0.0 % (0.0-3.0) Basophils (%) (Auto) 0.5 % (0.0-2.0) Erythrocyte Sedimentation Rate 70 MM/HR (0-30) H Sodium Level 141 MMOL/L (136-145) Potassium Level 4.4 MMOL/L (3.5-5.1) Chloride Level 108 MMOL/L (98-107) H Carbon Dioxide Level 30 MMOL/L (21-32) Anion Gap 3 mmol/L (5-15) L Blood Urea Nitrogen 31 mg/dL (7-18) H Creatinine 0.8 MG/DL (0.55-1.30) Estimat Glomerular Filtration Rate > 60 mL/min (>60) Glucose Level 102 MG/DL (74-106) Calcium Level 9.1 MG/DL (8.5-10.1) Iron Level 11 ug/dL (50-175) L Total Iron Binding Capacity 226 ug/dL (250-450) L Percent Iron Saturation 5 % (15-50) L Unsaturated Iron Binding 215 ug/dL (112-346) C-Reactive Protein, Quantitative 3.6 mg/dL (0.00-0.90) H Height (Feet): 5 Height (Inches): 6.00 Weight (Pounds): 144 General Appearance: WD/WN, no apparent distress, alert Cardiovascular: normal rate Respiratory/Chest: normal breath sounds, no respiratory distress Abdominal Exam: normal bowel sounds, non tender, soft Extremities: normal range of motion, non-tender Tara Scott N.P. Jun 29, 2017 16:03 LUIS GALLEGOS Jun 30, 2017 12:45
--- NOTE | 2017-06-29 17:02 | Electroencephalogram ---
DATE OF PROCEDURE: 06/28/2017 PROCEDURE PERFORMED: Electroencephalography. READING PHYSICIAN: Ashvin Fulton M.D. REQUESTING PHYSICIAN: Barber Dial D.O. HISTORY: The patient is a 66-year-old female with a history of chronic seizure disorder, presenting now with changes in mental status. EEG was requested to assess presence of her seizure activities. Past medical history includes previous strokes, heart attacks, CHF, coronary artery disease, and recurrent syncope. The patient's treatment include Zithromax and Keppra. EEG was done using 18 electrodes placed [id number], rwgzg-gt-khy montages according to [employer]. During the recording, the patient described as awake, drowsy, or asleep, but fairly cooperative. Most wakeful portions of recording, background activities consist of somewhat disorganized 5-7 cycles per second theta activities with good response to physiological stimulation, specifically eye opening and eye closure. Most of the recording appears to be while patient was asleep or drowsy with the background consists of a mixture of 4-6 cycles per second activities bilaterally. Amplitude remained mild to moderate. There were no significant spike and wave activities. There were some movement artifacts noted. IMPRESSION: Abnormal EEG in the presence of mild to moderate diffuse slowing. COMMENT: Above abnormality is a nonspecific finding, may reflect underlying toxic metabolic derangement, multiple old diffuse structural abnormalities. Absence of paroxysmal event on a single recording does not rule out seizure disorder. Ashvin Fulton M.D. DR: JANESSA JOB#: [id number] CC:
[2017-06-29] MEDS ORDERED: Iron Sucrose 100 MG in NS 55 ML IV SCH (21:00)
--- NOTE | 2017-06-29 21:01 | Progress Note ---
DATE: 06/29/2017 SUBJECTIVE: The patient is a 66-year-old female with chronic obstructive pulmonary disease exacerbation, who is confused and disorganized. Mood labile. She has got no logical plan for her own self care. I am going to treat with medication to stabilize her mood and encourage her to interact appropriately with staff and other patient. PLAN: Since has bipolar 2 disorder, my plan is to continue her on Seroquel with Cymbalta to stabilize her mood to reduce mood lability and anxiety. Seen and assessed at bedside. Supportive therapy provided. Chart reviewed. Discussed with staff. Mena Goncalves M.D. DR: MERLINE JOB#: [id number] CC:
--- NOTE | 2017-07-01 13:10 | Discharge Summary ---
Discharge Summary Hospital Course Date of Admission Jun 26, 2017 at 16:44 Date of Discharge Jun 29, 2017 at 15:35 Admitting Diagnosis COPD exacerbation, generalized weakness HPI Jayde Buchanan is a 66 year old female who was admitted on Jun 26, 2017 at 16:44 for Copd Exacerbation, Generalized Weakness Hospital Course [id number] Discharge Discharge Disposition Patient was discharged to Home with Home Health(06) Discharge Diagnoses: Carolina Damon NP Jul 01, 2017 13:10
--- NOTE | 2017-07-01 18:45 | Discharge Summary 2 SIG ---
DATE OF ADMISSION: 06/26/2017 DATE OF DISCHARGE: 06/29/2017 CONSULTANTS: 1. Rob Wagner M.D. 2. Ashvin Fulton M.D. 3. José Miguel Michaels M.D. 4. Skyler Gallegos M.D. 5. Constanza Guardado M.D. 6. Mena Goncalves M.D. BRIEF HOSPITAL COURSE: The patient is a 66-year-old female, who lives at home, presented to the ED with increased shortness of breath for two days and slight weakness for three days. The patient stated that she has been locked out of her apartment and unable to use her nebulizer medications. She complained of shortness of breath that occurred both on rest and on exertion with productive cough and yellowish sputum. She has a history of COPD and Crohn's disease, history of coronary artery disease with no stent. She is a current smoker. She has chronic pain and has a morphine pump, that the patient states is nonfunctional. On evaluation at ED, she was placed on O2 nasal cannula and was given a Combivent x3 and was started on IV steroids. She had blood work done that showed no leukocytosis. Chest x-ray showed increased interstitial lung markings. EKG was in normal sinus rhythm with no acute changes. She had persistent wheezing and was admitted to telemetry for acute COPD exacerbation. She was initially given Zosyn. Antibiotic was transition to ceftriaxone and Zithromax. She was placed on IV Solu-Medrol. She has history of seizure disorder who has been on Keppra. She had exacerbation of seizure and was restarted on Keppra 1000 mg b.i.d. She was previously on 500 mg t.i.d. She was placed on seizure precautions and EEG done showed abnormal EEG in the presence of mild to moderate diffuse slowing, which may reflect underlying toxic metabolic derangement, multiple old diffuse structural abnormalities. She has anemia and Crohn's disease. She was given mesalamine as inpatient, but was given prescription for Pentasa upon discharge as this medication is not available in the hospital. Her antipsychotic medications were adjusted. She had a head CT, which showed mild chronic age-related changes. Negative for acute intracranial bleed or mass effect with incidental findings of minimal right mastoid opacification and a possible empty sella. She had slight fever, T-max 100.3 degrees on arrival to ED. She developed leukocytosis possibly secondary to steroid use. She was treated for COPD and pneumonia and antibiotic was eventually transitioned to p.o. Levaquin to continue antibiotic treatment at home. FINAL DIAGNOSES: 1. Acute chronic obstructive pulmonary disease exacerbation. 2. Chronic seizure disorder with acute exacerbation. 3. Crohn's disease. 4. Bipolar 2 disorder. 5. Anemia. 6. Opiate-induced constipation. 7. Leukocytosis, may be steroid-related. 8. Nicotine dependence. 9. Possible pneumonia. 10. Urinary tract infection. DISPOSITION: The [facility] DISCHARGE MEDICATIONS: Continue with Levaquin 750 mg daily x4 more days. FOLLOWUP: Follow up with PCP. Barber Dial D.O. I have been assigned to dictate discharge summary on this account and I was not involved in the patient's management. Carolina Damon N.P. DR: EDDIE JOB#: [id number] CC: DENI
== END 2017-06-29 15:35 | disposition home health service (06) | DRG 190 ==
LOC: EMR 14:50 → 2E 16:44 → EDBEDREQ 16:47 → 4E 06-27 13:21
DX: J44.1 Chronic obstructive pulmonary disease with (acute) exacerbation (principal); J18.9 Pneumonia, unspecified organism; E46 Unspecified protein-calorie malnutrition; K50.90 Crohn's disease, unspecified, without complications; F31.81 Bipolar II disorder; N39.0 Urinary tract infection, site not specified; J44.0 Chronic obstructive pulmonary disease with (acute) lower respiratory infection; F17.200 Nicotine dependence, unspecified, uncomplicated; D64.9 Anemia, unspecified; E03.9 Hypothyroidism, unspecified; G40.909 Epilepsy, unspecified, not intractable, without status epilepticus; Z86.73 Personal history of transient ischemic attack (TIA), and cerebral infarction without residual deficits; G89.4 Chronic pain syndrome; K59.03 Drug induced constipation; T40.605A Adverse effect of unspecified narcotics, initial encounter; D72.829 Elevated white blood cell count, unspecified; T38.0X5A Adverse effect of glucocorticoids and synthetic analogues, initial encounter; M54.5 Low back pain; Z59.0 Homelessness; F32.9 Major depressive disorder, single episode, unspecified; R10.9 Unspecified abdominal pain
CPT/HCPCS: 36415; 36600; 70450; 71010; 80048; 80053; 80299; 81003; 82803; 82962; 83540; 83550; 83690; 84443; 84484; 85007; 85025; 85651; 86140; 93005; 94640; 94664; 95819; 97802; 99291

== ENCOUNTER 2017-08-26 15:07 | Emergency (ER) | payer MEDICARE, OTHER ==
[~2017-08-26] VITALS: Ht 167.6 cm; Wt 68.0 kg
[~2017-08-26 15:07] MED LIST changes: +AMBIEN5 MG ORAL; +LEVAQUIN750 MG ORAL; +REMERON30 M1 ORAL
[2017-08-26 15:56] VITALS: BP 99/61
[2017-08-26 16:30] VITALS: BP 99/61
--- NOTE | 2017-09-30 10:15 | Emergency Room Report ---
History of Present Illness General Chief Complaint: General Complaint Source: Patient Present Illness HPI Patient left prior to being seen. Allergies: Coded Allergies: No Known Allergies (Verified , 05/21/06) Patient History Last Menstrual Period: hystrectomy Nursing Documentation-PMH Past Medical History: No History, Except For Hx Cardiac Problems: Yes - [place] Hx Hypertension: No Hx Pacemaker: No Hx Asthma: Yes Hx COPD: Yes Hx Diabetes: No Hx Cancer: No Hx Gastrointestinal Problems: Yes - Crohn's disease, C. Diff Hx Dialysis: No History Of Psychiatric Problem: No Hx Neurological Problems: Yes Hx Cerebrovascular Accident: Yes - 2004 Hx Seizures: Yes Hx Epilepsy: Yes Hx Vertigo: Yes Hx Dizziness: Yes Hx Syncope: Yes Hx Headaches: Yes Hx Weakness: Yes Hx Fatigue: Yes Physical Exam Vital Signs Date Time Temp Pulse Resp B/P (MAP) Pulse Ox O2 Delivery O2 Flow Rate FiO2 08/26/17 15:46 99.0 80 16 99/61 95 Room Air Medical Decision Making PA Attestation Dr. Stewart is my supervising physician with whom patient management has been discussed with. Diagnostic Impression: Primary Impression: Encounter for generalized patient complaints ER Course Patient left prior to being seen. Last Vital Signs Date Time Temp Pulse Resp B/P (MAP) Pulse Ox O2 Delivery O2 Flow Rate FiO2 08/26/17 16:30 99.0 16 99/61 95 Room Air 08/26/17 15:46 80 Disposition: ELOPED Condition: Stable Referrals: NON PHYSICIAN (PCP) Tyron Cherry Sep 30, 2017 10:15
== END 2017-08-26 16:30 | disposition home or self-care (01) ==
LOC: EMR 16:00
DX: Z45.2 Encounter for adjustment and management of vascular access device (principal); Z53.21 Procedure and treatment not carried out due to patient leaving prior to being seen by health care provider
CPT/HCPCS: 99282

== ENCOUNTER 2017-08-30 10:12 | Outpatient (CLI) | payer MEDICARE, OTHER ==
[~2017-08-30] VITALS: Ht 30.5 cm; Wt 0.5 kg
[2017-08-30] MEDS ORDERED: Lidocaine 1% Plain 30 ml INJ ONE (11:00)
[2017-08-30] MEDS ORDERED: Heparin 2000 units/Ns 1000ml IV ONE (11:00)
--- NOTE | 2017-08-30 16:17 | Diagnostic Imaging Report ---
Indications: Needs long-term IV access Technique: Ultrasound confirms patent compressible left basilic vein. Total sterile technique, including sterile probe cover and sterile gel, hat, mask,, sterile gown, large sterile drape, and preparation with 2% chlorhexidine utilized. Local anesthesia with 1% lidocaine. Under real-time ultrasound guidance, puncture basilic vein using 21-gauge needle, documented and archived, passage 0.018 guidewire under direct fluoroscopy, which was used to determine appropriate catheter length, exchange for 5 Persian peel-away sheath. 5 Persian Bard dual-lumen power PICC cut to 37 cm. It was inserted through the peel-away sheath. Peel-away sheath and guidewire removed. Catheter fixed to the skin. Both catheter ports aspirated and flushed. Patient tolerated procedure well, without immediate complication. Digital radiograph documents satisfactory catheter tip position, at the cavoatrial junction. Total fluoroscopy time 0.3 minutes. Total dose area product 3.8 dGycm2 Impression: Successful placement of PICC under sonographic and fluoroscopic guidance, as described above.
== END 2017-08-30 12:12 | disposition home or self-care (01) ==
LOC: RAD 10:12
DX: Z79.899 Other long term (current) drug therapy (principal)
CPT/HCPCS: 36569; 76937; J1644; J2001

== ENCOUNTER 2017-09-27 15:46 | Emergency (ER) | payer MEDICARE, OTHER ==
[~2017-09-27] VITALS: Ht 167.6 cm; Wt 65.8 kg
[2017-09-27] MEDS ORDERED: Ketorolac 30mg Inj IM ONE (16:30)
--- NOTE | 2017-09-27 16:33 | Emergency Room Report ---
History of Present Illness General Chief Complaint: Multiple Trauma/Fall Source: Patient Present Illness HPI 66 yo female patient presents to ER complaining of shoulder, rib, and knee pain s/p fall a few hours ago. Patient reports she missed the curb and tripped and feel onto her knee and shoulder. Patient denies hitting head, denies LOC. Patient denies SOB. Complains of rib pain with deep inspiration. Denies use of medication for relief of symptoms. Patient reports hx of fracture right kneecap. Allergies: Coded Allergies: No Known Allergies (Verified , 05/21/06) Patient History Past Medical History: see triage record Now: No Reviewed Nursing Documentation: PMH: Agreed, PSxH: Agreed Nursing Documentation-PMH Past Medical History: No History, Except For Hx Cardiac Problems: Yes - [place] Hx Hypertension: No Hx Pacemaker: No Hx Asthma: Yes Hx COPD: Yes Hx Diabetes: No Hx Cancer: No Hx Gastrointestinal Problems: Yes - Crohn's disease, C. Diff Hx Dialysis: No Hx Neurological Problems: Yes Hx Cerebrovascular Accident: Yes - 2004 Hx Seizures: Yes Hx Epilepsy: Yes Hx Vertigo: Yes Hx Dizziness: Yes Hx Syncope: Yes Hx Headaches: Yes Hx Weakness: Yes Hx Fatigue: Yes Review of Systems All Other Systems: negative except mentioned in HPI Physical Exam Vital Signs Date Time Temp Pulse Resp B/P (MAP) Pulse Ox O2 Delivery O2 Flow Rate FiO2 09/27/17 15:53 100.6 95 20 95/64 94 Room Air 100.6 Sp02 EP Interpretation: reviewed, normal General Appearance: well appearing, no apparent distress, alert, GCS 15 Head: normocephalic, atraumatic Eyes: bilateral eye normal inspection, bilateral eye PERRL ENT: hearing grossly normal, normal pharynx, no angioedema, normal voice, uvula midline, moist mucus membranes Neck: full range of motion Respiratory: lungs clear, normal breath sounds, no rhonchi, no respiratory distress, no accessory muscle use, no wheezing, speaking full sentences Cardiovascular #1: regular rate, rhythm, no edema Gastrointestinal: non tender, soft, no mass, non-distended, no guarding, no rebound Genitourinary: no CVA tenderness Musculoskeletal: back normal, digits/nails normal, gait/station normal, normal range of motion - shoulder, non-tender, decreased range of motion - knee secondary to pain Neurologic: alert, oriented x3, responsive, motor strength/tone normal, sensory intact Psychiatric: mood/affect normal Skin: no rash Lymphatic: no adenopathy Medical Decision Making PA Attestation Dr. Nunez is my supervising Physician whom patient management has been discussed with. Diagnostic Impression: Primary Impression: Shoulder pain Additional Impressions: Rib contusion Patellar pain ER Course Pt. presents to the ED c/o knee rib and shoulder pain. Ddx considered but are not limited to fracture, sprain, strain, contusion. Vital signs: are WNL, pt. is afebrile Ordered x-rays of chest, right shoulder, right ribs, and right knee and also pain medication. ER COURSE: Provided patient with Toradol. Xray results reviewed, no acute fracture. Osteoarthritis seen in knee image. Patient reports history of knee fracture, surgery, and osteoarthritis in knee. Discuss results of x-ray with patient and patient caregiver. Patient reports feeling better following administration of medication. Patient reports ready to be discharged. Caregiver will drive patient home. Patient knee placed in knee immobilizer pending followup with network operations specialist. Patient reports appointment scheduled for a "few days from now". Crutches provided to patient. Patient reports understanding and agreement to treatment plan. DISCHARGE: Patient has pain medication, will not provide Rx at this time. At this time pt. is stable for d/c to home. Patient resting comfortably, in no acute distress, nontoxic appearing, speaking full sentences without distress. Will provide printed patient care instructions, and any necessary prescriptions. Patient instructed to follow with primary care provider in 3 - 5 days and to request further orthopedic follow-up. Care plan and follow up instructions have been discussed with the patient prior to discharge. Patient instructed on RICE method: rest, ice, compression, elevation. Patient instructed to WBAT. Take medications as directed. Patient questions asked and answered. ER precautions given, patient instructed to return to ER immediately for any new or worsening of symptoms. Chest X-Ray Diagnostic Results Chest X-Ray Diagnostic Results : Chest X-Ray Ordered: Yes # of Views/Limited/Complete: 1 View Indication: Chest Pain EP Interpretation: Yes PA Xray: Interpretation reviewed Interpretation: other - Generalized mild interstitial prominence, appears similar to prior exam. Acuity is indeterminate, may reflect recurrent pulmonary edema versus chronic nterstitial fibrotic change. Similar to multiple earlier prior studies suggests the latter. Correlate with clinical findings. Impression: No acute disease PA Scribe Text Robert Cherry PA-C Other X-Ray Diagnostic Results Other X-Ray Diagnostic Results #1: X-Ray ordered: right ribs # of Views/Limited Vs Complete: 3 View Indication: Pain EP Interpretation: Yes PA Xray: Interpretation reviewed, by supervising MD, and agrees with findings. Interpretation: no dislocation, no soft tissue swelling, no fractures Impression: No acute disease PA Scribe Text Robert Cherry PA-C Other X-Ray Diagnostic Results #2: X-Ray ordered: right shoulder # of Views/Limited Vs Complete: 3 View Indication: Pain EP Interpretation: Yes PA Xray: Interpretation reviewed, by supervising MD, and agrees with findings. Interpretation: no dislocation, no soft tissue swelling, no fractures Impression: No acute disease PA Scribe Text Robert Cherry PA-C Other X-Ray Diagnostic Results #3: X-Ray ordered: right knee # of Views/Limited Vs Complete: 3 View Indication: Pain EP Interpretation: Yes PA Xray: Interpretation reviewed, by supervising MD, and agrees with findings. Interpretation: no dislocation, no soft tissue swelling, no fractures Impression: No acute disease PA Scribe Text Robert Cherry PA-C Last Vital Signs Date Time Temp Pulse Resp B/P (MAP) Pulse Ox O2 Delivery O2 Flow Rate FiO2 09/27/17 15:53 100.6 95 20 95/64 94 Room Air 100.6 Disposition: HOME, SELF-CARE Condition: Stable Additional Instructions: Patient instructed to follow up with primary care provider and discuss further referral to orthopedics. Patient instructed on RICE method: rest, ice, compression, elevation. Patient instructed to WBAT. Take medications as directed. Patient questions asked and answered. ER precautions given, patient instructed to return to ER immediately for any new or worsening of symptoms. Tyron Cherry Sep 27, 2017 16:33
[2017-09-27 17:03] VITALS: BP 95/64
--- NOTE | 2017-09-27 17:36 | Diagnostic Imaging Report ---
Indication: Chest pain, status post fall Technique: One view of the chest, multiple views of the right ribs Comparison: 06/28/2017 Findings: Generalized interstitial prominence appears similar to the previous exam. There is a left arm PICC now present. No focal airspace consolidation. No pneumothorax. Total spaces are clear. There are some healed appearing rib fracture deformities of the left lower lateral ribs, appearing similar to the previous exam. The heart size is normal. Previously demonstrated left costophrenic angle blunting is not evident. Incidentally noted are hernia mesh anchor sutures in the upper abdomen. Radiographs of the right ribs demonstrate a questionable old healed fracture deformity of the lateral right third rib. No acute fractures. No pneumothorax. Impression: Generalized mild interstitial prominence, appears similar to prior exam. Acuity is indeterminate, may reflect recurrent pulmonary edema versus chronic interstitial fibrotic change. Similar to multiple earlier prior studies suggests the latter. Correlate with clinical findings Left arm PICC No evidence of acute rib fracture
[2017-09-27] MEDS ORDERED: TYLENOL EXTRA500 MG ORAL (18:16)
[2017-09-27 18:30] VITALS: BP 110/76
--- NOTE | 2017-09-28 10:52 | Diagnostic Imaging Report ---
Indication: Pain Knee pain 3 views of the right knee were obtained. Findings: Moderate arthrosis demonstrated with marginal spur formation and joint space narrowing. No joint effusion identified. The bones appear osteopenic. IMPRESSION: Osteoarthritis
--- NOTE | 2017-09-28 11:14 | Diagnostic Imaging Report ---
Indication: Pain Findings: 3 views of the right shoulder were obtained. No acute fractures, malalignment, erosions or periostitis are identified. Bones are osteopenic. Soft tissues are unremarkable. Impression: Negative for acute injury
== END 2017-09-27 18:30 | disposition home or self-care (01) ==
LOC: EMR 17:00
DX: S20.211A Contusion of right front wall of thorax, initial encounter (principal); W01.0XXA Fall on same level from slipping, tripping and stumbling without subsequent striking against object, initial encounter; Y92.480 Sidewalk as the place of occurrence of the external cause; M25.561 Pain in right knee; I25.2 Old myocardial infarction; Z86.73 Personal history of transient ischemic attack (TIA), and cerebral infarction without residual deficits; M17.11 Unilateral primary osteoarthritis, right knee; J44.9 Chronic obstructive pulmonary disease, unspecified
CPT/HCPCS: 29240; 71045; 71100; 73030; 73562; 96372; 99283; J1885

== ENCOUNTER 2017-09-28 09:56 | Outpatient (CLI) | payer MEDICARE, OTHER ==
[2017-09-28 10:09] VITALS: BP 102/53
--- NOTE | 2017-09-29 15:55 | GI Progress Note ---
Assessment/Plan Problems: (1) Therapeutic opioid-induced constipation (OIC) ICD Codes: K59.03 - Drug induced constipation; T40.2X5A - Adverse effect of other opioids, initial encounter SNOMED: [id number] (2) Nausea and vomiting (3) Constipation (4) Abdominal pain Status: stable Status Narrative Seen with Dr. Gallegos. 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 Sep 29, 2017 15:55
== END 2017-09-28 10:30 | disposition home or self-care (01) ==
LOC: PAN 09:56
DX: K59.03 Drug induced constipation (principal); T40.2X5A Adverse effect of other opioids, initial encounter; R11.2 Nausea with vomiting, unspecified; K59.00 Constipation, unspecified; R10.9 Unspecified abdominal pain; Z91.81 History of falling; X58.XXXA Exposure to other specified factors, initial encounter

== ENCOUNTER 2017-10-07 13:54 | Inpatient (IN) | payer MEDICARE, OTHER ==
[~2017-10-07] VITALS: Ht 170.2 cm; Wt 63.5 kg
[2017-10-07] MEDS ORDERED: AMBIEN5 MG ORAL (14:17)
[2017-10-07 14:46] VITALS: BP 104/63
[2017-10-07] MEDS ORDERED: Solu-MEDROL 125mg Inj IVP ONE (15:00)
[2017-10-07] MEDS ORDERED: Morphine Sulfate 4mg/ml Inj IVP ONE (15:00)
--- NOTE | 2017-10-07 15:12 | Emergency Room Report ---
History of Present Illness General Chief Complaint: General Complaint Source: Patient, Medical Record Present Illness HPI 66-year-old female, history of multiple abdominal surgeries in the past, COPD/ asthma, presenting with abdominal pain and shortness of breath. Patient states that for 3 days she has had watery nonbloody diarrhea, more than 10 times a day , and generalized abdominal pain. No nausea vomiting fever or chills. Patient states that she recently took amoxicillin, finished her last dose today , as prescribed by her dentist Also states that she has had wheezing, has been using her nebulizer with only minimal relief. No chest pain Patient has a left PICC line for B-12 injections because she has a hard stick. Also has a morphine pump for chronic pain Allergies: Coded Allergies: No Known Allergies (Verified , 05/21/06) Patient History Past Medical History: see triage record Past Surgical History: none Pertinent Family History: none Reviewed Nursing Documentation: PMH: Agreed, PSxH: Agreed Nursing Documentation-PMH Past Medical History: No History, Except For Hx Cardiac Problems: Yes - [place] Hx Hypertension: No Hx Pacemaker: No Hx Asthma: Yes Hx COPD: Yes Hx Diabetes: No Hx Cancer: No Hx Gastrointestinal Problems: Yes - Crohn's disease, C. Diff Hx Dialysis: No Hx Neurological Problems: Yes Hx Cerebrovascular Accident: Yes - 2004 Hx Seizures: Yes Hx Epilepsy: Yes Hx Vertigo: Yes Hx Dizziness: Yes Hx Syncope: Yes Hx Headaches: Yes Hx Weakness: Yes Hx Fatigue: Yes Review of Systems All Other Systems: negative except mentioned in HPI Physical Exam Vital Signs Date Time Temp Pulse Resp B/P (MAP) Pulse Ox O2 Delivery O2 Flow Rate FiO2 10/07/17 14:01 99.4 100 20 95/63 98 Room Air 99.3 Sp02 EP Interpretation: reviewed, normal General Appearance: alert, GCS 15, non-toxic, mild distress Head: normocephalic, atraumatic Eyes: bilateral eye normal inspection, bilateral eye PERRL, bilateral eye EOMI ENT: normal ENT inspection, normal pharynx, normal voice, moist mucus membranes Neck: normal inspection, full range of motion, supple Respiratory: respiratory distress, speaking full sentences, wheezing, expiration Cardiovascular #1: normal inspection, regular rate, rhythm, normal capillary refill Cardiovascular #2: 2+ radial (R), 2+ radial (L) Gastrointestinal: other - Morphine pump palpated in abdomen, well-healed surgical scars on abdomen, abdomen is slightly distended, generalized tenderness , normal bowel sounds Musculoskeletal: normal inspection, back normal, normal range of motion, non- tender Neurologic: normal inspection, alert, oriented x3, responsive, motor strength/ tone normal, sensory intact, normal gait, speech normal Psychiatric: normal inspection, judgement/insight normal, memory normal Skin: normal inspection, normal color, no rash, warm/dry, well hydrated, normal turgor Procedures Critical Care Time Critical Care Time 40 minutes of CC time 66-year-old female with abdominal pain, diarrhea, shortness of breath VS: Hypoxic and tachypneic PLAN: IV access, labs, lactate, troponin, Blood/Urine Cx, Abx, IVF, CT abdomen pelvis Anticipate admission to Tele vs. GAB[facility]EL CC time also includes review of labs, review of EMR, discussion with family and paperwork from SNF, d/w hospitalist CC could include dosing of pressors, additional Abx CC time does not include procedures Medical Decision Making Diagnostic Impression: Primary Impression: COPD exacerbation Additional Impressions: Diarrhea Small bowel obstruction Rib fracture ER Course 66-year-old female with abdominal pain, diarrhea, shortness of breath DDX: Abdominal pain/diarrhea: Diverticulitis, appendicitis, small bowel obstruction, enteritis, C. difficile Shortness of breath rule out ACS, asthma exacerbation, URI, pneumonia Plan: Obtain labs, ua, EKG, CXR CT abdomen pelvis ER course: Patient has been monitored during ED stay given nebs/steroids, speaking in complete sentences, sob improved WBC count of 23 --- flagyl given for possible C.diff fluids given, pt normotensive pt also with possible SBO -- notified surgery pt also with 11th rib fx, had a recent fall Disposition: Patient is to be admitted to tele D/W hospitalist Dr Benedict Please note that this Emergency Department Report was dictated using [employer] medical technology software, occasionally this can lead to erroneous entry secondary to interpretation by the dictation equipment. EKG Diagnostic Results EP Interpretation: Yes Rate: normal Rhythm: NSR ST Segments: No acute changes ASA given to patient: No Rhythm Strip EP Interpretation: Yes Rate: 84 Rhythm: NSR, no PVCs, no ectopy Chest X-ray CXR: Ordered: Yes 1 view Indication: Shortness of breath EP interpretation: Yes Interpretation: Some interstitial infiltrates, PICC line noted Impression: Some interstitial infiltrates, PICC line noted Electronically signed by Henrique Nunez MD Laboratory Tests Test 10/07/17 14:55 10/07/17 16:00 White Blood Count 23.8 K/UL (4.8-10.8) *H Red Blood Count 3.73 M/UL (4.20-5.40) L Hemoglobin 11.0 G/DL (12.0-16.0) L Hematocrit 35.1 % (37.0-47.0) L Mean Corpuscular Volume 94 FL (80-99) Mean Corpuscular Hemoglobin 29.6 PG (27.0-31.0) Mean Corpuscular Hemoglobin Concent 31.4 G/DL (32.0-36.0) L Red Cell Distribution Width 16.4 % (11.6-14.8) H Platelet Count 335 K/UL (150-450) Mean Platelet Volume 6.9 FL (6.5-10.1) Neutrophils (%) (Auto) % (45.0-75.0) Lymphocytes (%) (Auto) % (20.0-45.0) Monocytes (%) (Auto) % (1.0-10.0) Eosinophils (%) (Auto) % (0.0-3.0) Basophils (%) (Auto) % (0.0-2.0) Differential Total Cells Counted 100 Neutrophils % (Manual) 83 % (45-75) H Lymphocytes % (Manual) 8 % (20-45) L Monocytes % (Manual) 5 % (1-10) Eosinophils % (Manual) 1 % (0-3) Basophils % (Manual) 0 % (0-2) Band Neutrophils 3 % (0-8) Platelet Estimate Adequate Platelet Morphology Normal Polychromasia 1+ Hypochromasia 1+ Anisocytosis 1+ Sodium Level 137 MMOL/L (136-145) Potassium Level 3.6 MMOL/L (3.5-5.1) Chloride Level 105 MMOL/L (98-107) Carbon Dioxide Level 23 MMOL/L (21-32) Anion Gap 9 mmol/L (5-15) Blood Urea Nitrogen 29 mg/dL (7-18) H Creatinine 1.1 MG/DL (0.55-1.30) Estimate Glomerular Filtration Rate > 60 mL/min (>60) Glucose Level 118 MG/DL (74-106) H Calcium Level 9.3 MG/DL (8.5-10.1) Total Bilirubin 0.2 MG/DL (0.2-1.0) Aspartate Amino Transferase (AST) 21 U/L (15-37) Alanine Aminotransferase (ALT) 25 U/L (12-78) Alkaline Phosphatase 128 U/L (46-116) H Total Protein 9.2 G/DL (6.4-8.2) H Albumin 2.5 G/DL (3.4-5.0) L Globulin 6.7 g/dL Albumin/Globulin Ratio 0.4 (1.0-2.7) L Lipase 48 U/L (73-393) L Lactic Acid Level 0.80 mmol/L (0.66-2.22) CT/MRI/US Diagnostic Results CT/MRI/US Diagnostic Results : Imaging Test Ordered: CT ABDO PELVIS Impression Findings: Lack of enteric contrast limits assessment of the GI tract. Gas bubbles are seen adjacent to the gallbladder. Uncertain as to whether these are extraluminal or within a collapsed bowel loop, although somewhat favor the latter. There is evidence of prior resection of the ascending, transverse, and sigmoid colon, with an ileocolic anastomosis in the left mid abdomen. The colon distal to the anastomosis is dilated, but there is no evidence of downstream obstruction. This was also dilated on the previous study. The downstream colon is filled with fluid. Another enteroenteric anastomosis is seen in the right upper quadrant. There are multiple dilated small bowel loops, predominantly in the right upper quadrant. These are also evident previously. There is a transition to normal caliber small bowel in the right lower quadrant and another transition point is seen in the left upper quadrant, and it is unclear what represents distal versus proximal small bowel. Nondilated small bowel loops are seen in the left upper quadrant. Again demonstrated are anterior abdominal wall mesh anchors. No free or loculated intraperitoneal fluid. Distal esophagus, stomach, duodenum are unremarkable. The liver, gallbladder are unremarkable. There is mild ectasia of the common hepatic duct, but the common bile duct is nondilated. The pancreas, spleen, adrenals are unremarkable. Subcentimeter low-attenuation lesions are seen in the kidneys bilaterally which are too small to characterize. No retroperitoneal or mesenteric mass or adenopathy. No pelvic mass or adenopathy. Uterus and ovaries not visualized, presumed surgically absent. The included lung bases demonstrate fibrotic changes which are also evident previously. There is a fracture of the right posterior 11th rib which is ununited and new since the previous study. There are old healed fracture deformities of the left ninth and 10th ribs. There are mild degenerative changes of the lumbosacral junction. There is a reservoir in the left lower abdominal subcutaneous fat, with tubing entering the thecal sac, presumably a pain pump. Impression: Limited assessment of the GI tract, due to lack of enteric contrast administration Evidence of extensive prior bowel surgery, with evidence of resection of much of the colon, enterocolic and entero-enteral anastomoses Dilated right upper quadrant small bowel loops. Most likely on the basis of disordered motility related to the prior surgery, particularly given similarity to the previous exam. However, given evidence of nondilated small bowel loops elsewhere, the possibility of small bowel obstruction should be considered. Gas bubbles adjacent to the gallbladder fossa. Probably within collapsed adjacent small bowel, but the possibility that these represent extraluminal gas bubbles and which would therefore indicate bowel perforation should also be considered Considerable fluid within the residual colon. Per discussion with referring physician, patient has recent history of diarrhea. Findings are certainly concordant with that. Subcentimeter low-attenuation renal lesions, too small to characterize, most likely benign simple cysts. No further follow-up necessary Right posterior 11th rib fracture, appears acute Bilateral basilar pulmonary fibrotic changes, also previously demonstrated Other findings as noted, including intrathecal pain pump, old healed left ninth and 10th rib fracture deformities Last Vital Signs Date Time Temp Pulse Resp B/P (MAP) Pulse Ox O2 Delivery O2 Flow Rate FiO2 10/07/17 14:46 99.3 89 20 104/63 98 Room Air 99.3 Disposition: ADMITTED INPATIENT Condition: Serious Referrals: BAYRON BENEDICT (PCP) Henrique Nunez M.D. Oct 07, 2017 15:12
[2017-10-07 15:27] LABS: HEMATOCRIT 35.1 % (37.0-47.0); MEAN CORPUSCULAR VOLUME 94 FL (80-99); PLATELET COUNT 335 K/UL (150-450); RED BLOOD COUNT 3.73 M/UL (4.20-5.40); RED CELL DISTRIBUTION WIDTH 16.4 % (11.6-14.8)
--- NOTE | 2017-10-07 15:29 | Diagnostic Imaging Report ---
Indication: Cough Technique: One view of the chest Comparison: 09/27/2017 Findings: There is a left arm PICC again demonstrated. Mild interstitial prominence is similar to the previous exam. Heart size is normal. The pleural spaces are clear. Impression: Mild interstitial prominence, similar to the previous study and likely reflecting fibrotic changes demonstrated on a CT scan of December 2013. No definite acute infiltrate Other findings as noted
[2017-10-07] MEDS: Ipratropium 0.02% Inh Soln 2.5ml UD HHN SCH ×3 (15:30→16:00)
[2017-10-07] MEDS: Albuterol ud Inhalation HHN SCH ×3 (15:30→16:00)
[2017-10-07 15:36] LABS: WHITE BLOOD COUNT 23.8 K/UL (4.8-10.8)
[2017-10-07 15:46] LABS: ANION GAP 9 mmol/L (5-15); BLOOD UREA NITROGEN 29 mg/dL (7-18); CALCIUM 9.3 MG/DL (8.5-10.1); CARBON DIOXIDE 23 MMOL/L (21-32); CHLORIDE 105 MMOL/L (98-107); CREATININE 1.1 MG/DL (0.55-1.30); POTASSIUM 3.6 MMOL/L (3.5-5.1); SODIUM 137 MMOL/L (136-145)
[2017-10-07 15:51] LABS: ALANINE AMINOTRANSFERASE 25 U/L (12-78); ALBUMIN 2.5 G/DL (3.4-5.0); ALBUMIN/GLOBULIN RATIO 0.4 (1.0-2.7); ALKALINE PHOSPHATASE 128 U/L (46-116); ASPARTATE AMINO TRANSFERASE 21 U/L (15-37); BILIRUBIN,TOTAL 0.2 MG/DL (0.2-1.0)
[2017-10-07 16:00] VITALS: BP 105/58
[2017-10-07 17:00] VITALS: BP 104/56
--- NOTE | 2017-10-07 17:03 | Diagnostic Imaging Report ---
Clinical Indication: Abdominal pain Technique: No oral contrast utilized, per emergency room physician request IV administration nonionic contrast. Venous phase spiral acquisition obtained through the abdomen and pelvis. Multiplanar reconstructions were generated. Total dose length product 611.72 mGycm. CTDIvol(s) 12.54 mGy. Dose reduction achieved using automated exposure control Comparison: 12/12/2016 Findings: Lack of enteric contrast limits assessment of the GI tract. Gas bubbles are seen adjacent to the gallbladder. Uncertain as to whether these are extraluminal or within a collapsed bowel loop, although somewhat favor the latter. There is evidence of prior resection of the ascending, transverse, and sigmoid colon, with an ileocolic anastomosis in the left mid abdomen. The colon distal to the anastomosis is dilated, but there is no evidence of downstream obstruction. This was also dilated on the previous study. The downstream colon is filled with fluid. Another enteroenteric anastomosis is seen in the right upper quadrant. There are multiple dilated small bowel loops, predominantly in the right upper quadrant. These are also evident previously. There is a transition to normal caliber small bowel in the right lower quadrant and another transition point is seen in the left upper quadrant, and it is unclear what represents distal versus proximal small bowel. Nondilated small bowel loops are seen in the left upper quadrant. Again demonstrated are anterior abdominal wall mesh anchors. No free or loculated intraperitoneal fluid. Distal esophagus, stomach, duodenum are unremarkable. The liver, gallbladder are unremarkable. There is mild ectasia of the common hepatic duct, but the common bile duct is nondilated. The pancreas, spleen, adrenals are unremarkable. Subcentimeter low-attenuation lesions are seen in the kidneys bilaterally which are too small to characterize. No retroperitoneal or mesenteric mass or adenopathy. No pelvic mass or adenopathy. Uterus and ovaries not visualized, presumed surgically absent. The included lung bases demonstrate fibrotic changes which are also evident previously. There is a fracture of the right posterior 11th rib which is ununited and new since the previous study. There are old healed fracture deformities of the left ninth and 10th ribs. There are mild degenerative changes of the lumbosacral junction. There is a reservoir in the left lower abdominal subcutaneous fat, with tubing entering the thecal sac, presumably a pain pump. Impression: Limited assessment of the GI tract, due to lack of enteric contrast administration Evidence of extensive prior bowel surgery, with evidence of resection of much of the colon, enterocolic and entero-enteral anastomoses Dilated right upper quadrant small bowel loops. Most likely on the basis of disordered motility related to the prior surgery, particularly given similarity to the previous exam. However, given evidence of nondilated small bowel loops elsewhere, the possibility of small bowel obstruction should be considered. Gas bubbles adjacent to the gallbladder fossa. Probably within collapsed adjacent small bowel, but the possibility that these represent extraluminal gas bubbles and which would therefore indicate bowel perforation should also be considered Considerable fluid within the residual colon. Per discussion with referring physician, patient has recent history of diarrhea. Findings are certainly concordant with that. Subcentimeter low-attenuation renal lesions, too small to characterize, most likely benign simple cysts. No further follow-up necessary Right posterior 11th rib fracture, appears acute Bilateral basilar pulmonary fibrotic changes, also previously demonstrated Other findings as noted, including intrathecal pain pump, old healed left ninth and 10th rib fracture deformities Findings discussed by phone with Dr. Nunez at the time of interpretation The CT scanner at [facility] is accredited by the [employer] and the scans are performed using protocols designed to limit radiation exposure to as low as reasonably achievable to attain images of sufficient resolution adequate for diagnostic evaluation.
[2017-10-07 17:41] LABS: APPEARANCE,URINE CLEAR; BILIRUBIN, URINE NEGATIVE (NEGATIVE); GLUCOSE, URINE (UA) NEGATIVE (NEGATIVE); KETONES,URINE NEGATIVE (NEGATIVE); LEUKOCYTE ESTERASE ,URINE 1+ (NEGATIVE); NITRITE,URINE NEGATIVE (NEGATIVE); PH,URINE 6 (4.5-8.0); PROTEIN,URINE 2+ (NEGATIVE); UROBILINOGEN,URINE NORMAL MG/DL (0.0-1.0)
[2017-10-07 17:47] LABS: COLOR,URINE YELLOW
[2017-10-07] MEDS ORDERED: Vancomycin oral 125mg/2.5ml ORAL ONE (18:00)
[2017-10-07 20:00] VITALS: BP 105/64
--- NOTE | 2017-10-07 22:19 | Consultation ---
History of Present Illness General Date patient seen: Oct 08, 2017 Chief Complaint: General Complaint Reason for Consultation: dypsnea Present Illness HPI 66-year-old female with hx of COPD/asthma, presenting with abdominal pain and shortness of breath. Patient states that she recently took amoxicillin, finished her last dose today, as prescribed by her dentist. She has had wheezing , has been using her nebulizer with only minimal relief. No chest pain Patient has a left PICC line for B-12 injections because she has a hard stick. Also has a morphine pump for chronic pain. Allergies: Coded Allergies: No Known Allergies (Verified , 05/21/06) Medication History Scheduled Al Hydroxide/mg Hydroxide (Mag-Al Plus Suspension), 30 ML PO Q6HR, (Reported) Aspirin* (Aspir 81*), 81 MG ORAL DAILY, (Reported) Atorvastatin Calcium* (Lipitor*), 40 MG ORAL BEDTIME, (Reported) Bupropion Hcl* (Bupropion Hcl*), 100 MG ORAL DAILY, (Reported) Duloxetine Hcl* (Cymbalta*), 60 MG ORAL DAILY, (Reported) Ibuprofen* (Motrin*), 800 MG ORAL THREE TIMES A DAY, (Reported) Levetiracetam* (Levetiracetam*), 1,000 MG ORAL TID, (Reported) Levothyroxine Sodium* (Levothyroxine Sodium*), 75 MCG ORAL ACBREAKFAST, ( Reported) Linaclotide (Linzess), 145 MCG PO DAILY, (Reported) Mesalamine (Pentasa), 1,000 MG ORAL TID, (Reported) Mirtazapine (Remeron), 30 MG ORAL BEDTIME, (Reported) Montelukast Sodium* (Montelukast Sodium*), 10 MG ORAL DAILY, (Reported) Pantoprazole* (Protonix*), 40 MG ORAL DAILY, (Reported) Quetiapine Fumarate (Seroquel), 200 MG ORAL QHS, (Reported) Risperidone* (Risperdal*), 0.5 MG ORAL BEDTIME, (Reported) Theophylline (Theodur*), 100 MG ORAL TWICE A DAY, (Reported) Topiramate* (Topamax*), 25 MG ORAL TWICE A DAY, (Reported) Trazodone* (Trazodone*), 150 MG ORAL BEDTIME, (Reported) Scheduled PRN Acetaminophen (Acetaminophen), 650 MG ORAL Q8H PRN for Fever/Headache/Mild Pain, (Reported) Acetaminophen* (Acetaminophen 325MG Tablet*), 325 MG ORAL Q4H PRN for Fever/ Headache/Mild Pain, (Reported) Diphenhydramine HCl (Benadryl), 25 MG PO Q6HR PRN for Itching, (Reported) Nitroglycerin (Nitroglycerin), 0.4 MG SL [id number] PRN for Prn Chest Pain, ( Reported) Ondansetron* (Zofran*), 4 MG ORAL Q6H PRN for Nausea & Vomiting, (Reported) Temazepam* (Restoril*), 15 MG ORAL BEDTIME PRN for Insomnia, (Reported) Zolpidem Tartrate* (Ambien*), 5 MG ORAL BEDTIME PRN for Insomnia, (Reported) Patient History Healthcare decision maker Resuscitation status Advanced Directive on File Past Medical/Surgical History Past Medical/Surgical History: (1) COPD (chronic obstructive pulmonary disease) (2) Elevated CEA (3) IBD (inflammatory bowel disease) (4) Asthma (5) Opioid dependence Review of Systems Respiratory: Reports: cough, shortness of breath, wheezing All Other Systems: negative except mentioned in HPI Physical Exam General Appearance: WD/WN, no apparent distress Lines, tubes and drains: peripheral, central line HEENT: normocephalic, anicteric Neck: non-tender, normal alignment Respiratory/Chest: chest wall non-tender, lungs clear Cardiovascular/Chest: normal peripheral pulses Abdomen: normal bowel sounds Last 24 Hour Vital Signs Date Time Temp Pulse Resp B/P (MAP) Pulse Ox O2 Delivery O2 Flow Rate FiO2 10/07/17 20:00 98.6 86 19 105/64 99 Room Air 98.6 10/07/17 17:58 99.3 88 16 104/56 95 Room Air 99.3 10/07/17 17:26 99.3 10/07/17 17:00 88 16 104/56 95 Room Air 10/07/17 16:17 88 18 98 Room Air 21 10/07/17 16:00 90 18 Room Air 21 10/07/17 16:00 91 18 100 Room Air 21 10/07/17 16:00 99.3 84 20 105/58 100 Venturi Mask 10.0 99.3 3/15/18 16:00 21 18 15:32 99.3 10/07/17 15:31 91 18 Room Air 21 10/07/17 15:31 90 18 100 Room Air 21 10/07/17 15:31 21 10/07/17 14:46 99.3 89 20 104/63 98 Room Air 99.3 10/07/17 14:01 99.4 100 20 95/63 98 Room Air 99.3 Laboratory Tests Test 10/07/17 14:55 10/07/17 16:00 10/07/17 17:20 White Blood Count 23.8 K/UL (4.8-10.8) *H Red Blood Count 3.73 M/UL (4.20-5.40) L Hemoglobin 11.0 G/DL (12.0-16.0) L Hematocrit 35.1 % (37.0-47.0) L Mean Corpuscular Volume 94 FL (80-99) Mean Corpuscular Hemoglobin 29.6 PG (27.0-31.0) Mean Corpuscular Hemoglobin Concent 31.4 G/DL (32.0-36.0) L Red Cell Distribution Width 16.4 % (11.6-14.8) H Platelet Count 335 K/UL (150-450) Mean Platelet Volume 6.9 FL (6.5-10.1) Neutrophils (%) (Auto) % (45.0-75.0) Lymphocytes (%) (Auto) % (20.0-45.0) Monocytes (%) (Auto) % (1.0-10.0) Eosinophils (%) (Auto) % (0.0-3.0) Basophils (%) (Auto) % (0.0-2.0) Differential Total Cells Counted 100 Neutrophils % (Manual) 83 % (45-75) H Lymphocytes % (Manual) 8 % (20-45) L Monocytes % (Manual) 5 % (1-10) Eosinophils % (Manual) 1 % (0-3) Basophils % (Manual) 0 % (0-2) Band Neutrophils 3 % (0-8) Platelet Estimate Adequate Platelet Morphology Normal Polychromasia 1+ Hypochromasia 1+ Anisocytosis 1+ Sodium Level 137 MMOL/L (136-145) Potassium Level 3.6 MMOL/L (3.5-5.1) Chloride Level 105 MMOL/L (98-107) Carbon Dioxide Level 23 MMOL/L (21-32) Anion Gap 9 mmol/L (5-15) Blood Urea Nitrogen 29 mg/dL (7-18) H Creatinine 1.1 MG/DL (0.55-1.30) Estimat Glomerular Filtration Rate > 60 mL/min (>60) Glucose Level 118 MG/DL (74-106) H Calcium Level 9.3 MG/DL (8.5-10.1) Total Bilirubin 0.2 MG/DL (0.2-1.0) Aspartate Amino Transf (AST/SGOT) 21 U/L (15-37) Alanine Aminotransferase (ALT/SGPT) 25 U/L (12-78) Alkaline Phosphatase 128 U/L (46-116) H Total Protein 9.2 G/DL (6.4-8.2) H Albumin 2.5 G/DL (3.4-5.0) L Globulin 6.7 g/dL Albumin/Globulin Ratio 0.4 (1.0-2.7) L Lipase 48 U/L (73-393) L Lactic Acid Level 0.80 mmol/L (0.66-2.22) Urine Color Yellow Urine Appearance Clear Urine pH 6 (4.5-8.0) Urine Specific [place] 1.015 (1.005-1.035) Urine Protein 2+ (NEGATIVE) H Urine Glucose (UA) Negative (NEGATIVE) Urine Ketones Negative (NEGATIVE) Urine Occult Blood 3+ (NEGATIVE) H Urine Nitrite Negative (NEGATIVE) Urine Bilirubin Negative (NEGATIVE) Urine Urobilinogen Normal MG/DL (0.0-1.0) Urine Leukocyte Esterase 1+ (NEGATIVE) H Urine RBC 20-30 /HPF (0 - 2) H Urine WBC 5-10 /HPF (0 - 2) H Urine Squamous Epithelial Cells Occasional /LPF Urine Bacteria Few /HPF (NONE) Height (Feet): 5 Height (Inches): 7.00 Weight (Pounds): 140 Medications Current Medications Medications (Trade) Dose Ordered Sig/Vaibhav Route PRN Reason Start Time Stop Time Status Last Admin Dose Admin Vancomycin HCl (Vancomycin) 125 mg FOUR TIMES A DAY ORAL 10/07/17 22:00 10/14/17 21:59 Assessment/Plan Problem List: (1) COPD (chronic obstructive pulmonary disease) ICD Codes: J44.9 - Chronic obstructive pulmonary disease, unspecified SNOMED: 51507321 (2) PNA (pneumonia) ICD Codes: J18.9 - Pneumonia, unspecified organism SNOMED: 444561097 (3) IBD (inflammatory bowel disease) ICD Codes: K63.89 - Other specified diseases of intestine SNOMED: 78902485 (4) Asthma ICD Codes: J45.909 - Unspecified asthma, uncomplicated SNOMED: 132412894 (5) Opioid dependence ICD Codes: F11.20 - Opioid dependence SNOMED: 42246218 (6) COPD exacerbation ICD Codes: J44.1 - COPD exacerbation SNOMED: 024324244 (7) Elevated CEA ICD Codes: R97.0 - Elevated CEA SNOMED: 970677476 Assessment/Plan respiratory treatment iv abx check cultures chest pt titrate fio2 to sat of 92% iv steroids Rob Wagner MD Oct 07, 2017 22:19
[2017-10-07] MEDS ORDERED: Albuterol/Ipratropium 3ml neb HHN PRN (22:30)
[2017-10-07] MEDS ORDERED: LORazepam Inj 2mg/ml 1ml IV PRN (22:30)
[2017-10-07] MEDS ORDERED: Nitroglycerin Subl 0.4mg tab SL PRN (22:30)
[2017-10-07] MEDS ORDERED: Promethazine/Codeine 5ml UD ORAL PRN (22:30)
[2017-10-07] MEDS ORDERED: Ketorolac 30mg Inj IV PRN (22:30)
[2017-10-07] MEDS: Solu-MEDROL 125mg Inj IV SCH (22:49)
[2017-10-07] MEDS: Morphine Sulfate 2mg/ml Inj IVP PRN (22:50)
[2017-10-07] MEDS: Vancomycin oral 125mg/2.5ml ORAL SCH (23:15)
[2017-10-08] VITALS: BP 113/65
[2017-10-08 04:00] VITALS: BP 110/60
[2017-10-08] MEDS ORDERED: Piperacillin/Tazobactam 2.25 GM in D5W 55 ML IV SCH (06:00)
[2017-10-08] MEDS: Zosyn 3.375gm q8h **Extended infusion IVPB SCH ×4 (06:34→13:24)
[2017-10-08] MEDS: Solu-MEDROL 125mg Inj IV SCH ×2 (06:34→12:00)
[2017-10-08 08:00] VITALS: BP 119/62
[2017-10-08] MEDS ORDERED: DULoxetine 30mg cap ORAL SCH (09:00)
[2017-10-08] MEDS ORDERED: Heparin 5000 units/ml inj SUBQ SCH (09:00)
[2017-10-08] MEDS ORDERED: Aspirin EC 81mg tab ORAL SCH (09:00)
[2017-10-08] MEDS ORDERED: Theophylline ER 100mg ORAL SCH (09:00)
[2017-10-08] MEDS: Morphine Sulfate 2mg/ml Inj IVP PRN ×3 (09:05→17:36)
[2017-10-08] MEDS: Vancomycin oral 125mg/2.5ml ORAL SCH ×3 (09:06→17:36)
[2017-10-08] MEDS: Topiramate 25mg tab ORAL SCH ×2 (09:06→17:36)
[2017-10-08 12:00] VITALS: BP 105/68
--- NOTE | 2017-10-08 12:16 | Consultation ---
History of Present Illness General Date patient seen: Oct 08, 2017 Time patient seen: 11:56 Chief Complaint: General Complaint Present Illness HPI 66 y/o F with hx of COPD/asthma, on B-12 injections via PICC line, CAD/AK, chronic pain syndrome on morphine pump, Cdiff, CVA 2004, seizure disorder, Crohn 's diease w/ multiple abd surgeries presents to ED on 10/07 with abd pain, SOB and 3 days of watery, non bloody diarrhea (> 10 x/day). Also wheezing with no significan relieve from nebulizer treatment. Denies n/v, f/c, CP Afebrile leukocytosis up to 23.8. Cdiff neg but bacteremic with GNRs. Allergies: Coded Allergies: No Known Allergies (Verified , 05/21/06) Medication History Scheduled Al Hydroxide/mg Hydroxide (Mag-Al Plus Suspension), 30 ML PO Q6HR, (Reported) Aspirin* (Aspir 81*), 81 MG ORAL DAILY, (Reported) Atorvastatin Calcium* (Lipitor*), 40 MG ORAL BEDTIME, (Reported) Bupropion Hcl* (Bupropion Hcl*), 100 MG ORAL DAILY, (Reported) Duloxetine Hcl* (Cymbalta*), 60 MG ORAL DAILY, (Reported) Ibuprofen* (Motrin*), 800 MG ORAL THREE TIMES A DAY, (Reported) Levetiracetam* (Levetiracetam*), 1,000 MG ORAL TID, (Reported) Levothyroxine Sodium* (Levothyroxine Sodium*), 75 MCG ORAL ACBREAKFAST, ( Reported) Linaclotide (Linzess), 145 MCG PO DAILY, (Reported) Mesalamine (Pentasa), 1,000 MG ORAL TID, (Reported) Mirtazapine (Remeron), 30 MG ORAL BEDTIME, (Reported) Montelukast Sodium* (Montelukast Sodium*), 10 MG ORAL DAILY, (Reported) Pantoprazole* (Protonix*), 40 MG ORAL DAILY, (Reported) Quetiapine Fumarate (Seroquel), 200 MG ORAL QHS, (Reported) Risperidone* (Risperdal*), 0.5 MG ORAL BEDTIME, (Reported) Theophylline (Theodur*), 100 MG ORAL TWICE A DAY, (Reported) Topiramate* (Topamax*), 25 MG ORAL TWICE A DAY, (Reported) Trazodone* (Trazodone*), 150 MG ORAL BEDTIME, (Reported) Scheduled PRN Acetaminophen (Acetaminophen), 650 MG ORAL Q8H PRN for Fever/Headache/Mild Pain, (Reported) Acetaminophen* (Acetaminophen 325MG Tablet*), 325 MG ORAL Q4H PRN for Fever/ Headache/Mild Pain, (Reported) Diphenhydramine HCl (Benadryl), 25 MG PO Q6HR PRN for Itching, (Reported) Nitroglycerin (Nitroglycerin), 0.4 MG SL [id number] PRN for Prn Chest Pain, ( Reported) Ondansetron* (Zofran*), 4 MG ORAL Q6H PRN for Nausea & Vomiting, (Reported) Temazepam* (Restoril*), 15 MG ORAL BEDTIME PRN for Insomnia, (Reported) Zolpidem Tartrate* (Ambien*), 5 MG ORAL BEDTIME PRN for Insomnia, (Reported) Patient History Healthcare decision maker Resuscitation status Full Code Advanced Directive on File Review of Systems All Other Systems: negative except mentioned in HPI Physical Exam Physical Exam Narrative General Appearance: alert, mild distress HEENT: normocephalic, normal pharynx,moist mucus membranes Neck: normal inspection, full range of motion, supple Respiratory: respiratory distress, speaking full sentences, wheezing, expiration Cardiovascular : normal inspection, regular rate, rhythm, normal capillary refill Gastrointestinal: other - Morphine pump palpated in abdomen, well-healed surgical scars on abdomen, abdomen is slightly distended, generalized tenderness , normal bowel sounds Musculoskeletal: normal inspection, back normal, normal range of motion, non- tender Neurologic: normal inspection, alert, oriented x3, responsive, motor strength/ tone normal, sensory intact, normal gait, speech normal Skin: normal inspection, normal color, no rash, warm/dry, well hydrated, normal turgor Last 24 Hour Vital Signs Date Time Temp Pulse Resp B/P (MAP) Pulse Ox O2 Delivery O2 Flow Rate FiO2 10/08/17 09:35 97.1 10/08/17 09:05 97.1 10/08/17 08:00 64 10/08/17 08:00 97.1 71 18 119/62 100 Room Air 97.1 10/08/17 04:00 66 10/08/17 04:00 96.6 76 18 110/60 97 Room Air 96.6 10/08/17 00:00 96.4 80 18 113/65 97 Room Air 96.4 10/08/17 00:00 76 10/07/17 22:50 98.6 10/07/17 20:00 98.6 86 19 105/64 99 Room Air 98.6 10/07/17 20:00 86 10/07/17 17:58 99.3 88 16 104/56 95 Room Air 99.3 10/07/17 17:26 99.3 10/07/17 17:00 88 16 104/56 95 Room Air 10/07/17 16:17 88 18 98 Room Air 21 10/07/17 16:00 90 18 Room Air 21 10/07/17 16:00 91 18 100 Room Air 21 10/07/17 16:00 99.3 84 20 105/58 100 Venturi Mask 10.0 99.3 10/07/17 16:00 21 10/07/17 15:32 99.3 10/07/17 15:31 91 18 Room Air 21 10/07/17 15:31 90 18 100 Room Air 21 10/07/17 15:31 21 10/07/17 14:46 99.3 89 20 104/63 98 Room Air 99.3 10/07/17 14:01 99.4 100 20 95/63 98 Room Air 99.3 Intake and Output 10/07/17 10/08/17 19:00 07:00 Intake Total 1000 ml Output Total 100 ml 300 ml Balance 900 ml -300 ml Intake IV Total 1000 ml Output Urine Total 100 ml 300 ml # Voids 1 Laboratory Tests Test 10/07/17 14:55 10/07/17 16:00 10/07/17 17:20 White Blood Count 23.8 K/UL (4.8-10.8) *H Red Blood Count 3.73 M/UL (4.20-5.40) L Hemoglobin 11.0 G/DL (12.0-16.0) L Hematocrit 35.1 % (37.0-47.0) L Mean Corpuscular Volume 94 FL (80-99) Mean Corpuscular Hemoglobin 29.6 PG (27.0-31.0) Mean Corpuscular Hemoglobin Concent 31.4 G/DL (32.0-36.0) L Red Cell Distribution Width 16.4 % (11.6-14.8) H Platelet Count 335 K/UL (150-450) Mean Platelet Volume 6.9 FL (6.5-10.1) Neutrophils (%) (Auto) % (45.0-75.0) Lymphocytes (%) (Auto) % (20.0-45.0) Monocytes (%) (Auto) % (1.0-10.0) Eosinophils (%) (Auto) % (0.0-3.0) Basophils (%) (Auto) % (0.0-2.0) Differential Total Cells Counted 100 Neutrophils % (Manual) 83 % (45-75) H Lymphocytes % (Manual) 8 % (20-45) L Monocytes % (Manual) 5 % (1-10) Eosinophils % (Manual) 1 % (0-3) Basophils % (Manual) 0 % (0-2) Band Neutrophils 3 % (0-8) Platelet Estimate Adequate Platelet Morphology Normal Polychromasia 1+ Hypochromasia 1+ Anisocytosis 1+ Sodium Level 137 MMOL/L (136-145) Potassium Level 3.6 MMOL/L (3.5-5.1) Chloride Level 105 MMOL/L (98-107) Carbon Dioxide Level 23 MMOL/L (21-32) Anion Gap 9 mmol/L (5-15) Blood Urea Nitrogen 29 mg/dL (7-18) H Creatinine 1.1 MG/DL (0.55-1.30) Estimat Glomerular Filtration Rate > 60 mL/min (>60) Glucose Level 118 MG/DL (74-106) H Calcium Level 9.3 MG/DL (8.5-10.1) Total Bilirubin 0.2 MG/DL (0.2-1.0) Aspartate Amino Transf (AST/SGOT) 21 U/L (15-37) Alanine Aminotransferase (ALT/SGPT) 25 U/L (12-78) Alkaline Phosphatase 128 U/L (46-116) H Total Protein 9.2 G/DL (6.4-8.2) H Albumin 2.5 G/DL (3.4-5.0) L Globulin 6.7 g/dL Albumin/Globulin Ratio 0.4 (1.0-2.7) L Lipase 48 U/L (73-393) L Lactic Acid Level 0.80 mmol/L (0.66-2.22) Urine Color Yellow Urine Appearance Clear Urine pH 6 (4.5-8.0) Urine Specific [place] 1.015 (1.005-1.035) Urine Protein 2+ (NEGATIVE) H Urine Glucose (UA) Negative (NEGATIVE) Urine Ketones Negative (NEGATIVE) Urine Occult Blood 3+ (NEGATIVE) H Urine Nitrite Negative (NEGATIVE) Urine Bilirubin Negative (NEGATIVE) Urine Urobilinogen Normal MG/DL (0.0-1.0) Urine Leukocyte Esterase 1+ (NEGATIVE) H Urine RBC 20-30 /HPF (0 - 2) H Urine WBC 5-10 /HPF (0 - 2) H Urine Squamous Epithelial Cells Occasional /LPF Urine Bacteria Few /HPF (NONE) Microbiology Date/Time Source Procedure Growth Status 10/07/17 16:29 Blood Blood Culture - Preliminary Resulted 10/07/17 16:10 Blood Blood Culture - Preliminary Resulted 10/07/17 15:30 Stool Clostridium difficile Toxin Assay - Final Complete Height (Feet): 5 Height (Inches): 7.00 Weight (Pounds): 140 Medications Current Medications Medications (Trade) Dose Ordered Sig/Vaibhav Route PRN Reason Start Time Stop Time Status Last Admin Dose Admin Albuterol/ Ipratropium (Albuterol/ Ipratropium) 3 ml EVERY 4 HOURS PRN HHN dyspnea 10/07/17 22:30 10/12/17 22:29 Aspirin (Ecotrin) 81 mg DAILY ORAL 10/08/17 09:00 11/07/17 08:59 10/08/17 09:06 Atorvastatin Calcium (Lipitor) 40 mg BEDTIME ORAL 10/08/17 21:00 11/07/17 20:59 Bupropion HCl (Wellbutrin) 100 mg DAILY ORAL 10/08/17 09:00 11/07/17 08:59 10/08/17 09:06 Dextrose (Dextrose 50%) STAT PRN IV Hypoglycemia 10/07/17 22:30 11/06/17 22:29 Duloxetine HCl (Cymbalta) 60 mg DAILY ORAL 10/08/17 09:00 11/07/17 08:59 10/08/17 09:06 Heparin Sodium (Porcine) (Heparin 5000 units/ml) 5,000 units EVERY 12 HOURS SUBQ 10/08/17 09:00 11/07/17 08:59 10/08/17 09:08 Ketorolac Tromethamine (Toradol 30mg) 30 mg EVERY 8 HOURS PRN IV moderate pain 4-6 10/07/17 22:30 10/12/17 22:29 Levetiracetam (Keppra) 1,000 mg TID ORAL 10/08/17 09:00 11/07/17 08:59 10/08/17 09:06 Levothyroxine Sodium (Synthroid) 75 mcg ACBREAKFAST ORAL 10/08/17 06:30 11/07/17 06:29 10/08/17 06:34 Lorazepam (Ativan 2mg/ml 1ml) 0.5 mg Q4H PRN IV For Anxiety 10/07/17 22:30 10/14/17 22:29 Methylprednisolone Sodium Succinate (Solu-MEDROL) 60 mg EVERY 6 HOURS IV 10/08/17 00:00 11/07/17 00:00 10/08/17 06:34 Morphine Sulfate (Morphine Sulfate) 2 mg EVERY 4 HOURS PRN IVP severe pain 7-10 10/07/17 22:30 10/14/17 22:29 10/08/17 09:05 Nitroglycerin (Ntg) 0.4 mg Q5M X 3 DOSES PRN SL Prn Chest Pain 10/07/17 22:30 11/06/17 22:29 Ondansetron HCl (Zofran) 4 mg Q6H PRN IVP Nausea & Vomiting 10/07/17 22:30 11/06/17 22:29 10/07/17 23:16 Piperacillin Sod/ Tazobactam Sod 3.375 gm/Sodium Chloride 110 ml @ 27.5 mls/hr EVERY 8 HOURS IVPB 10/08/17 06:00 10/12/17 05:59 10/08/17 06:34 Promethazine HCl/ Codeine (Phenergan with Codeine) 5 ml EVERY 6 HOURS PRN ORAL cough 10/07/17 22:30 11/06/17 22:29 Temazepam (Restoril) 15 mg HSPRN PRN ORAL Insomnia 10/07/17 22:30 10/14/17 22:29 Theophylline (Erwin-Dur) 100 mg EVERY 12 HOURS ORAL 3/16/18 09:00 11/07/17 08:59 10/08/17 09:06 Topiramate (Topamax) 25 mg TWICE A DAY ORAL 10/08/17 09:00 11/07/17 08:59 10/08/17 09:06 Trazodone HCl (Desyrel) 150 mg BEDTIME ORAL 10/08/17 21:00 11/07/17 20:59 Vancomycin HCl (Vancomycin) 125 mg FOUR TIMES A DAY ORAL 10/07/17 22:00 10/14/17 21:59 10/08/17 09:06 Assessment/Plan Assessment/Plan Abx: Zosyn 10/08- PO Vancomcyin 10/07- Assessment: SEpsis 2ry to Gram negative bacteremia- likely from GI source- r/o Crohn's flare , colitis, ?bowel perforation given CT findings- r/o PICC line infection -Bcx 10/27 GNRs -CT abd/p w/: Limited assessment of the GI tract, due to lack of enteric contrast administration. Evidence of extensive prior bowel surgery, with evidence of resection of much of the colon, enterocolic and entero-enteral anastomoses. Dilated right upper quadrant small bowel loops. Most likely on the basis of disordered motility related to the prior surgery, particularly given similarity to the previous exam. However, given evidence of nondilated small bowel loops elsewhere, the possibility of small bowel obstruction should be considered. Gas bubbles adjacent to the gallbladder fossa. Probably within collapsed adjacent small bowel, but the possibility that these represent extraluminal gas bubbles and which would therefore indicate bowel perforation should also be considered. Considerable fluid within the residual colon. Per discussion with referring physician, patient has recent history of diarrhea. Findings are certainly concordant with that. Subcentimeter low-attenuation renal lesions, too small to characterize, most likely benign simple cysts. Right posterior 11th rib fracture, appears acute. Bilateral basilar pulmonary fibrotic changes, also previously demonstrated Leukocytosis -afebrile -CXR 10/07: Mild interstitial prominence, similar to the previous study and likely reflecting fibrotic changes demonstrated on a CT scan of December 2013. No definite acute infiltrate -u/a WBC 5-10, nit neg, leuk +1 Hx of Cdiff -Cdiff 10/07 neg Crohn's disease w/ multiple abd surgeries COPD/asthma on B-12 injections via PICC line CAD/AK chronic pain syndrome on morphine pump CVA 2004 seizure disorder Plan: -Continue Zosyn pending GNRs ID and sensi -2 sets of Bcx -stool cx -switch PO Vancomycin to prophlylatic dose given prior hx of Cdiff -f/u cx -Monitor CBC/BMP, temperatures -surgery eval Thank you for this consultation. Will continue to follow along with you. Discussed with Kathleen Bennett M.D. Oct 08, 2017 12:16
--- NOTE | 2017-10-08 13:22 | Pulmonology Progress Note ---
Assessment/Plan Problems: (1) COPD (chronic obstructive pulmonary disease) (2) PNA (pneumonia) (3) IBD (inflammatory bowel disease) (4) Asthma (5) Opioid dependence (6) COPD exacerbation (7) Elevated CEA Assessment/Plan improving still lots of sputum continue abx taper steroids chest pt symptomatic treatment pain management. Subjective ROS Limited/Unobtainable: No Respiratory: Reports: productive cough Allergies: Coded Allergies: No Known Allergies (Verified , 05/21/06) Objective Last 24 Hour Vital Signs Date Time Temp Pulse Resp B/P (MAP) Pulse Ox O2 Delivery O2 Flow Rate FiO2 10/08/17 09:35 97.1 10/08/17 09:05 97.1 10/08/17 08:00 64 10/08/17 08:00 97.1 71 18 119/62 100 Room Air 97.1 10/08/17 04:00 66 10/08/17 04:00 96.6 76 18 110/60 97 Room Air 96.6 10/08/17 00:00 96.4 80 18 113/65 97 Room Air 96.4 10/08/17 00:00 76 10/07/17 22:50 98.6 10/07/17 20:00 98.6 86 19 105/64 99 Room Air 98.6 10/07/17 20:00 86 10/07/17 17:58 99.3 88 16 104/56 95 Room Air 99.3 10/07/17 17:26 99.3 10/07/17 17:00 88 16 104/56 95 Room Air 10/07/17 16:17 88 18 98 Room Air 21 10/07/17 16:00 90 18 Room Air 21 10/07/17 16:00 91 18 100 Room Air 21 10/07/17 16:00 99.3 84 20 105/58 100 Venturi Mask 10.0 99.3 10/07/17 16:00 21 10/07/17 15:32 99.3 10/07/17 15:31 91 18 Room Air 21 10/07/17 15:31 90 18 100 Room Air 21 10/07/17 15:31 21 10/07/17 14:46 99.3 89 20 104/63 98 Room Air 99.3 10/07/17 14:01 99.4 100 20 95/63 98 Room Air 99.3 Intake and Output 10/07/17 10/08/17 19:00 07:00 Intake Total 1000 ml Output Total 100 ml 300 ml Balance 900 ml -300 ml Intake IV Total 1000 ml Output Urine Total 100 ml 300 ml # Voids 1 Objective General Appearance: WD/WN, no apparent distress Lines, tubes and drains: peripheral HEENT: normocephalic, anicteric Neck: non-tender, normal alignment Respiratory/Chest: chest wall non-tender, + rhonchi Cardiovascular/Chest: normal peripheral pulses Abdomen: normal bowel sounds EXt: no C/C/E Microbiology Date/Time Source Procedure Growth Status 10/07/17 16:29 Blood Blood Culture - Preliminary Resulted 10/07/17 16:10 Blood Blood Culture - Preliminary Resulted 10/07/17 15:30 Stool Clostridium difficile Toxin Assay - Final Complete Laboratory Tests 10/07/17 14:55: White Blood Count 23.8*H, Red Blood Count 3.73L, Hemoglobin 11.0L, Hematocrit 35.1L, Mean Corpuscular Volume 94, Mean Corpuscular Hemoglobin 29.6, Mean Corpuscular Hemoglobin Concent 31.4L, Red Cell Distribution Width 16.4H, Platelet Count 335, Mean Platelet Volume 6.9, Neutrophils (%) (Auto) , Lymphocytes (%) (Auto) , Monocytes (%) (Auto) , Eosinophils (%) (Auto) , Basophils (%) (Auto) , Differential Total Cells Counted 100, Neutrophils % ( Manual) 83H, Lymphocytes % (Manual) 8L, Monocytes % (Manual) 5, Eosinophils % ( Manual) 1, Basophils % (Manual) 0, Band Neutrophils 3, Platelet Estimate Adequate, Platelet Morphology Normal, Polychromasia 1+, Hypochromasia 1+, Anisocytosis 1+, Sodium Level 137, Potassium Level 3.6, Chloride Level 105, Carbon Dioxide Level 23, Anion Gap 9, Blood Urea Nitrogen 29H, Creatinine 1.1, Estimat Glomerular Filtration Rate > 60, Glucose Level 118H, Calcium Level 9.3, Total Bilirubin 0.2, Aspartate Amino Transf (AST/SGOT) 21, Alanine Aminotransferase (ALT/SGPT) 25, Alkaline Phosphatase 128H, Total Protein 9.2H, Albumin 2.5L, Globulin 6.7, Albumin/Globulin Ratio 0.4L, Lipase 48L 10/07/17 16:00: Lactic Acid Level 0.80 3/15/18 17:20: Urine Color Yellow, Urine Appearance Clear, Urine pH 6, Urine Specific [place] 1.015, Urine Protein 2+H, Urine Glucose (UA) Negative, Urine Ketones Negative, Urine Occult Blood 3+H, Urine Nitrite Negative, Urine Bilirubin Negative, Urine Urobilinogen Normal, Urine Leukocyte Esterase 1+H, Urine RBC 20-30H, Urine WBC 5 -10H, Urine Squamous Epithelial Cells Occasional, Urine Bacteria Few Current Medications Medications (Trade) Dose Ordered Sig/Vaibhav Route PRN Reason Start Time Stop Time Status Last Admin Dose Admin Albuterol/ Ipratropium (Albuterol/ Ipratropium) 3 ml EVERY 4 HOURS PRN HHN dyspnea 10/07/17 22:30 10/12/17 22:29 Aspirin (Ecotrin) 81 mg DAILY ORAL 10/08/17 09:00 11/07/17 08:59 10/08/17 09:06 Atorvastatin Calcium (Lipitor) 40 mg BEDTIME ORAL 10/08/17 21:00 11/07/17 20:59 Bupropion HCl (Wellbutrin) 100 mg DAILY ORAL 10/08/17 09:00 11/07/17 08:59 10/08/17 09:06 Dextrose (Dextrose 50%) STAT PRN IV Hypoglycemia 10/07/17 22:30 11/06/17 22:29 Duloxetine HCl (Cymbalta) 60 mg DAILY ORAL 10/08/17 09:00 11/07/17 08:59 10/08/17 09:06 Heparin Sodium (Porcine) (Heparin 5000 units/ml) 5,000 units EVERY 12 HOURS SUBQ 10/08/17 09:00 11/07/17 08:59 10/08/17 09:08 Ketorolac Tromethamine (Toradol 30mg) 30 mg EVERY 8 HOURS PRN IV moderate pain 4-6 10/07/17 22:30 10/12/17 22:29 Levetiracetam (Keppra) 1,000 mg TID ORAL 10/08/17 09:00 11/07/17 08:59 10/08/17 09:06 Levothyroxine Sodium (Synthroid) 75 mcg ACBREAKFAST ORAL 10/08/17 06:30 11/07/17 06:29 10/08/17 06:34 Lorazepam (Ativan 2mg/ml 1ml) 0.5 mg Q4H PRN IV For Anxiety 10/07/17 22:30 10/14/17 22:29 Methylprednisolone Sodium Succinate (Solu-MEDROL) 60 mg EVERY 6 HOURS IV 10/08/17 00:00 11/07/17 00:00 10/08/17 06:34 Morphine Sulfate (Morphine Sulfate) 2 mg EVERY 4 HOURS PRN IVP severe pain 7-10 10/07/17 22:30 10/14/17 22:29 10/08/17 09:05 Nitroglycerin (Ntg) 0.4 mg Q5M X 3 DOSES PRN SL Prn Chest Pain 10/07/17 22:30 11/06/17 22:29 Ondansetron HCl (Zofran) 4 mg Q6H PRN IVP Nausea & Vomiting 10/07/17 22:30 11/06/17 22:29 10/07/17 23:16 Piperacillin Sod/ Tazobactam Sod 3.375 gm/Sodium Chloride 110 ml @ 27.5 mls/hr EVERY 8 HOURS IVPB 10/08/17 06:00 10/12/17 05:59 10/08/17 06:34 Promethazine HCl/ Codeine (Phenergan with Codeine) 5 ml EVERY 6 HOURS PRN ORAL cough 10/07/17 22:30 11/06/17 22:29 Temazepam (Restoril) 15 mg HSPRN PRN ORAL Insomnia 10/07/17 22:30 10/14/17 22:29 Theophylline (Erwin-Dur) 100 mg EVERY 12 HOURS ORAL 10/08/17 09:00 11/07/17 08:59 10/08/17 09:06 Topiramate (Topamax) 25 mg TWICE A DAY ORAL 10/08/17 09:00 11/07/17 08:59 10/08/17 09:06 Trazodone HCl (Desyrel) 150 mg BEDTIME ORAL 10/08/17 21:00 11/07/17 20:59 Vancomycin HCl (Vancomycin) 125 mg FOUR TIMES A DAY ORAL 10/07/17 22:00 10/14/17 21:59 10/08/17 09:06 Rob Wagner MD Oct 08, 2017 13:22
--- NOTE | 2017-10-08 13:34 | GI Initial Consult Note ---
Scott,Tara Conrad N.PDeng 10/08/17 1334: History of Present Illness General Date patient seen: Oct 08, 2017 Time patient seen: 13:30 Reason for Hospitalization: General Complaint Referring physician: DWAYNE LEUNG Reason for Consultation: CROHNS Present Illness HPI 66-year-old female, history of multiple abdominal surgeries in the past, COPD/ asthma, presenting with abdominal pain and shortness of breath. Patient states that for 3 days she has had watery nonbloody diarrhea, more than 10 times a day , and generalized abdominal pain. No nausea vomiting fever or chills. Patient states that she recently took amoxicillin, finished her last dose today , as prescribed by her dentist Also states that she has had wheezing, has been using her nebulizer with only minimal relief. No chest pain Patient has a left PICC line for B-12 injections because she has a hard stick. Also has a morphine pump for chronic pain GI consulted for crohn's flare. Pt seen, awake A&Ox4 NAD with c/o of recent diarrhea that she has been having the last few days. Denies any melena or coffee grounds. Has implanted morphine pump, which states never relieves her back pain. Hx of chronic abdominal pain and has been known to have OIC. Patient has had multiple surgeries in the past for bowel obstruction as well as lysis of adhesions. She presents today with leukocytosis and anemia. Home Meds Reported Medications Levofloxacin-D5w 500 Mg/100 Ml* (LEVOFLOXACIN-D5W 500 MG/100 ML*) 500 Mg/100 Ml Piggyback, 500 MG IVPB Q24H, BAG 10/13/17 Metronidazole* (FLAGYL*) 250 Mg Tablet, 200 MG ORAL DAILY for 11 Days, TAB 10/13/17 Duloxetine Hcl* (CYMBALTA*) 60 Mg Capsule.dr, 60 MG ORAL DAILY, CAP 10/13/17 Levothyroxine Sodium (SYNTHROID) 137 Mcg Tablet, 75 MCG ORAL DAILY, TAB Take in the morning on an empty stomach, at least 30 minutes before food. 10/13/17 Topiramate (TOPAMAX) 25 Mg Cap.sprink, 25 MG ORAL EVERY 12 HOURS, CAP 10/13/17 Theophylline (THEODUR*) 100 Mg Tab.er.12h, 100 MG ORAL TWICE A DAY, #30 TAB 0 Refills 10/13/17 Fluconazole (FLUCONAZOLE) 200 Mg Tablet, 200 MG ORAL DAILY for 11 Days, #7 TAB 0 Refills 10/13/17 Atorvastatin Calcium* (LIPITOR*) 40 Mg Tablet, 40 MG ORAL BEDTIME, #30 TAB 0 Refills 10/13/17 Trazodone Hcl* (DESYREL*) 100 Mg Tablet, 200 MG ORAL BEDTIME, TAB 10/13/17 Mesalamine (ASACOL HD) 800 Mg Tablet.dr, 1600 MG ORAL THREE TIMES A DAY, TAB Do not break outer coating 10/13/17 Zolpidem Tartrate* (AMBIEN*) 5 Mg Tablet, 5 MG ORAL BEDTIME PRN for Insomnia, TAB 10/07/17 Mirtazapine (REMERON) 30 Mg Tab.rapdis, 30 MG ORAL BEDTIME, TAB 06/26/17 Trazodone* (TRAZODONE*) 150 Mg Tablet, 150 MG ORAL BEDTIME, TAB 04/30/17 Temazepam* (RESTORIL*) 15 Mg Capsule, 15 MG ORAL BEDTIME PRN for Insomnia, CAP 04/30/17 Quetiapine Fumarate (SEROQUEL) 400 Mg Tablet, 200 MG ORAL QHS, #15 TAB 0 Refills 04/30/17 Pantoprazole* (PROTONIX*) 40 Mg Tablet.dr, 40 MG ORAL DAILY, TAB 04/30/17 Ondansetron* (ZOFRAN*) 4 Mg Tablet, 4 MG ORAL Q6H PRN for Nausea & Vomiting, TAB 04/30/17 Nitroglycerin (NITROGLYCERIN) 0.4 Mg Tab.subl, 0.4 MG SL [id number] PRN for Prn Chest Pain, TAB 04/30/17 Levothyroxine Sodium* (LEVOTHYROXINE SODIUM*) 75 Mcg Tablet, 75 MCG ORAL ACBREAKFAST, TAB Take in the morning on an empty stomach, at least 30 minutes before food. 04/30/17 Al Hydroxide/mg Hydroxide (Mag-Al Plus Suspension) 30 Ml Oral.susp, 30 ML PO Q6HR for Constipation, ML 04/30/17 Acetaminophen* (ACETAMINOPHEN 325MG TABLET*) 325 Mg Tablet, 325 MG ORAL Q4H PRN for Fever/Headache/Mild Pain, TAB 04/30/17 Theophylline (THEODUR*) 100 Mg Tab.er.12h, 100 MG ORAL TWICE A DAY, #30 TAB 0 Refills 12/22/16 Atorvastatin Calcium* (LIPITOR*) 40 Mg Tablet, 40 MG ORAL BEDTIME, #30 TAB 0 Refills 12/22/16 Aspirin* (ASPIR 81*) 81 Mg Tablet.dr, 81 MG ORAL DAILY, TAB 12/22/16 Linaclotide (LINZESS) 145 Mcg Capsule, 145 MCG PO DAILY, CAP 10/15/16 Acetaminophen (Acetaminophen) 650 Mg/20.3 Ml Solution, 650 MG ORAL Q8H PRN for Fever/Headache/Mild Pain, ML 0 Refills 09/07/16 Mesalamine (PENTASA) 500 Mg Capsule.er, 1000 MG ORAL TID, #30 CAP 0 Refills 09/03/16 Montelukast Sodium* (MONTELUKAST SODIUM*) 10 Mg Tablet, 10 MG ORAL DAILY, TAB 09/03/16 Risperidone* (RISPERDAL*) 0.5 Mg Tablet, 0.5 MG ORAL BEDTIME, #30 TAB 0 Refills 09/03/16 Bupropion Hcl* (BUPROPION HCL*) 100 Mg Tablet, 100 MG ORAL DAILY, TAB 09/03/16 Ibuprofen* (MOTRIN*) 600 Mg Tablet, 800 MG ORAL THREE TIMES A DAY, #30 TAB 0 Refills 09/03/16 Topiramate* (TOPAMAX*) 25 Mg Tablet, 25 MG ORAL TWICE A DAY, #60 TAB 0 Refills 07/19/16 Levetiracetam* (LEVETIRACETAM*) 500 Mg Tablet, 1000 MG ORAL TID, #60 TAB 0 Refills 07/19/16 Duloxetine Hcl* (CYMBALTA*) 60 Mg Capsule.dr, 60 MG ORAL DAILY, CAP 07/19/16 Diphenhydramine HCl (Benadryl) 25 Mg Capsule, 25 MG PO Q6HR PRN for Itching, CAP 07/19/16 Med list reviewed/reconciled: Yes Allergies: Coded Allergies: No Known Allergies (Verified , 05/21/06) Patient History History Provided By: Patient, Medical Record PMH Narrative Past Medical History: see triage record Past Surgical History: none Pertinent Family History: none Reviewed Nursing Documentation: PMH: Agreed, PSxH: Agreed Nursing Documentation-PMH Past Medical History: No History, Except For Hx Cardiac Problems: Yes - [place] Hx Hypertension: No Hx Pacemaker: No Hx Asthma: Yes Hx COPD: Yes Hx Diabetes: No Hx Cancer: No Hx Gastrointestinal Problems: Yes - Crohn's disease, C. Diff Hx Dialysis: No Hx Neurological Problems: Yes Hx Cerebrovascular Accident: Yes - 2004 Hx Seizures: Yes Hx Epilepsy: Yes Hx Vertigo: Yes Hx Dizziness: Yes Hx Syncope: Yes Hx Headaches: Yes Hx Weakness: Yes Hx Fatigue: Yes Review of Systems All Other Systems: negative except mentioned in HPI Physical Exam Vital Signs Date Time Temp Pulse Resp B/P (MAP) Pulse Ox O2 Delivery O2 Flow Rate FiO2 10/07/17 14:01 99.4 100 20 95/63 98 Room Air 99.3 10/07/17 15:31 21 10/07/17 16:00 10.0 Sp02 EP Interpretation: reviewed, normal Labs Laboratory Tests Test 10/07/17 14:55 10/07/17 16:00 10/07/17 17:20 White Blood Count 23.8 K/UL (4.8-10.8) *H Red Blood Count 3.73 M/UL (4.20-5.40) L Hemoglobin 11.0 G/DL (12.0-16.0) L Hematocrit 35.1 % (37.0-47.0) L Mean Corpuscular Volume 94 FL (80-99) Mean Corpuscular Hemoglobin 29.6 PG (27.0-31.0) Mean Corpuscular Hemoglobin Concent 31.4 G/DL (32.0-36.0) L Red Cell Distribution Width 16.4 % (11.6-14.8) H Platelet Count 335 K/UL (150-450) Mean Platelet Volume 6.9 FL (6.5-10.1) Neutrophils (%) (Auto) % (45.0-75.0) Lymphocytes (%) (Auto) % (20.0-45.0) Monocytes (%) (Auto) % (1.0-10.0) Eosinophils (%) (Auto) % (0.0-3.0) Basophils (%) (Auto) % (0.0-2.0) Differential Total Cells Counted 100 Neutrophils % (Manual) 83 % (45-75) H Lymphocytes % (Manual) 8 % (20-45) L Monocytes % (Manual) 5 % (1-10) Eosinophils % (Manual) 1 % (0-3) Basophils % (Manual) 0 % (0-2) Band Neutrophils 3 % (0-8) Platelet Estimate Adequate Platelet Morphology Normal Polychromasia 1+ Hypochromasia 1+ Anisocytosis 1+ Sodium Level 137 MMOL/L (136-145) Potassium Level 3.6 MMOL/L (3.5-5.1) Chloride Level 105 MMOL/L (98-107) Carbon Dioxide Level 23 MMOL/L (21-32) Anion Gap 9 mmol/L (5-15) Blood Urea Nitrogen 29 mg/dL (7-18) H Creatinine 1.1 MG/DL (0.55-1.30) Estimat Glomerular Filtration Rate > 60 mL/min (>60) Glucose Level 118 MG/DL (74-106) H Calcium Level 9.3 MG/DL (8.5-10.1) Total Bilirubin 0.2 MG/DL (0.2-1.0) Aspartate Amino Transf (AST/SGOT) 21 U/L (15-37) Alanine Aminotransferase (ALT/SGPT) 25 U/L (12-78) Alkaline Phosphatase 128 U/L (46-116) H Total Protein 9.2 G/DL (6.4-8.2) H Albumin 2.5 G/DL (3.4-5.0) L Globulin 6.7 g/dL Albumin/Globulin Ratio 0.4 (1.0-2.7) L Lipase 48 U/L (73-393) L Lactic Acid Level 0.80 mmol/L (0.66-2.22) Urine Color Yellow Urine Appearance Clear Urine pH 6 (4.5-8.0) Urine Specific [place] 1.015 (1.005-1.035) Urine Protein 2+ (NEGATIVE) H Urine Glucose (UA) Negative (NEGATIVE) Urine Ketones Negative (NEGATIVE) Urine Occult Blood 3+ (NEGATIVE) H Urine Nitrite Negative (NEGATIVE) Urine Bilirubin Negative (NEGATIVE) Urine Urobilinogen Normal MG/DL (0.0-1.0) Urine Leukocyte Esterase 1+ (NEGATIVE) H Urine RBC 20-30 /HPF (0 - 2) H Urine WBC 5-10 /HPF (0 - 2) H Urine Squamous Epithelial Cells Occasional /LPF Urine Bacteria Few /HPF (NONE) General Appearance: well appearing, no apparent distress, alert, thin Head: normocephalic EENT: PERRL/EOMI, normal ENT inspection Neck: supple Respiratory: normal breath sounds, no respiratory distress Cardiovascular: normal rate Gastrointestinal: normal inspection, non tender, soft, normal bowel sounds, non -distended Rectal: deferred Genitourinary: no CVA tenderness Musculoskeletal: normal inspection, back normal Neurologic: normal inspection, alert, oriented x3, responsive Psychiatric: normal inspection, judgement/insight normal, memory normal Skin: normal inspection, normal color, no rash, warm/dry, palpation normal, well hydrated Lymphatic: normal inspection, no adenopathy Current Medications Current Medications Medications (Trade) Dose Ordered Sig/Vaibhav Route PRN Reason Start Time Stop Time Status Last Admin Dose Admin Albuterol/ Ipratropium (Albuterol/ Ipratropium) 3 ml EVERY 4 HOURS PRN HHN dyspnea 10/07/17 22:30 10/12/17 22:29 Aspirin (Ecotrin) 81 mg DAILY ORAL 10/08/17 09:00 11/07/17 08:59 10/08/17 09:06 Atorvastatin Calcium (Lipitor) 40 mg BEDTIME ORAL 10/08/17 21:00 11/07/17 20:59 Bupropion HCl (Wellbutrin) 100 mg DAILY ORAL 10/08/17 09:00 11/07/17 08:59 10/08/17 09:06 Dextrose (Dextrose 50%) STAT PRN IV Hypoglycemia 10/07/17 22:30 11/06/17 22:29 Duloxetine HCl (Cymbalta) 60 mg DAILY ORAL 10/08/17 09:00 11/07/17 08:59 10/08/17 09:06 Heparin Sodium (Porcine) (Heparin 5000 units/ml) 5,000 units EVERY 12 HOURS SUBQ 10/08/17 09:00 11/07/17 08:59 10/08/17 09:08 Ketorolac Tromethamine (Toradol 30mg) 30 mg EVERY 8 HOURS PRN IV moderate pain 4-6 10/07/17 22:30 10/12/17 22:29 Levetiracetam (Keppra) 1,000 mg TID ORAL 10/08/17 09:00 11/07/17 08:59 10/08/17 13:23 Levothyroxine Sodium (Synthroid) 75 mcg ACBREAKFAST ORAL 10/08/17 06:30 11/07/17 06:29 10/08/17 06:34 Lorazepam (Ativan 2mg/ml 1ml) 0.5 mg Q4H PRN IV For Anxiety 10/07/17 22:30 10/14/17 22:29 Methylprednisolone Sodium Succinate (Solu-MEDROL) 60 mg DAILY IV 10/09/17 09:00 11/07/17 00:00 Morphine Sulfate (Morphine Sulfate) 2 mg EVERY 4 HOURS PRN IVP severe pain 7-10 10/07/17 22:30 10/14/17 22:29 10/08/17 13:23 Nitroglycerin (Ntg) 0.4 mg Q5M X 3 DOSES PRN SL Prn Chest Pain 10/07/17 22:30 11/06/17 22:29 Ondansetron HCl (Zofran) 4 mg Q6H PRN IVP Nausea & Vomiting 10/07/17 22:30 11/06/17 22:29 10/07/17 23:16 Piperacillin Sod/ Tazobactam Sod 3.375 gm/Sodium Chloride 110 ml @ 27.5 mls/hr EVERY 8 HOURS IVPB 10/08/17 06:00 10/12/17 05:59 10/08/17 13:24 Promethazine HCl/ Codeine (Phenergan with Codeine) 5 ml EVERY 6 HOURS PRN ORAL cough 10/07/17 22:30 11/06/17 22:29 Temazepam (Restoril) 15 mg HSPRN PRN ORAL Insomnia 10/07/17 22:30 10/14/17 22:29 Theophylline (Erwin-Dur) 100 mg EVERY 12 HOURS ORAL 10/08/17 09:00 11/07/17 08:59 10/08/17 09:06 Topiramate (Topamax) 25 mg TWICE A DAY ORAL 10/08/17 09:00 11/07/17 08:59 10/08/17 09:06 Trazodone HCl (Desyrel) 150 mg BEDTIME ORAL 10/08/17 21:00 11/07/17 20:59 Vancomycin HCl (Vancomycin) 125 mg FOUR TIMES A DAY ORAL 10/07/17 22:00 10/14/17 21:59 10/08/17 13:23 GI: Plan Problems: (1) IBD (inflammatory bowel disease) (2) Opioid dependence (3) Diarrhea (4) Therapeutic opioid-induced constipation (OIC) (5) Crohns disease Plan s/p EGD/colon 2015 >> , crohns non functional implanted morphine pump LLQ Hx of CEA & CA19-9 elevation cdiff negative Crohns management - Mesalamine TID - CRP, ESR r/o Crohn's flare adv diet pain mgmt ppi electrolyte replacement Imodium prn, consider lomotil if diarrhea persists will consider endoscopy if necessary fu labs Discussed with Dr. Potts. Thank you for this patient referral, we will follow. LUIS POTTS 10/15/17 0906: History of Present Illness General Reason for Hospitalization: General Complaint Present Illness Home Meds Reported Medications Levofloxacin-D5w 500 Mg/100 Ml* (LEVOFLOXACIN-D5W 500 MG/100 ML*) 500 Mg/100 Ml Piggyback, 500 MG IVPB Q24H, BAG 10/13/17 Metronidazole* (FLAGYL*) 250 Mg Tablet, 200 MG ORAL DAILY for 11 Days, TAB 10/13/17 Duloxetine Hcl* (CYMBALTA*) 60 Mg Capsule.dr, 60 MG ORAL DAILY, CAP 10/13/17 Levothyroxine Sodium (SYNTHROID) 137 Mcg Tablet, 75 MCG ORAL DAILY, TAB Take in the morning on an empty stomach, at least 30 minutes before food. 10/13/17 Topiramate (TOPAMAX) 25 Mg Cap.sprink, 25 MG ORAL EVERY 12 HOURS, CAP 10/13/17 Theophylline (THEODUR*) 100 Mg Tab.er.12h, 100 MG ORAL TWICE A DAY, #30 TAB 0 Refills 10/13/17 Fluconazole (FLUCONAZOLE) 200 Mg Tablet, 200 MG ORAL DAILY for 11 Days, #7 TAB 0 Refills 10/13/17 Atorvastatin Calcium* (LIPITOR*) 40 Mg Tablet, 40 MG ORAL BEDTIME, #30 TAB 0 Refills 10/13/17 Trazodone Hcl* (DESYREL*) 100 Mg Tablet, 200 MG ORAL BEDTIME, TAB 10/13/17 Mesalamine (ASACOL HD) 800 Mg Tablet.dr, 1600 MG ORAL THREE TIMES A DAY, TAB Do not break outer coating 10/13/17 Zolpidem Tartrate* (AMBIEN*) 5 Mg Tablet, 5 MG ORAL BEDTIME PRN for Insomnia, TAB 10/07/17 Mirtazapine (REMERON) 30 Mg Tab.rapdis, 30 MG ORAL BEDTIME, TAB 06/26/17 Trazodone* (TRAZODONE*) 150 Mg Tablet, 150 MG ORAL BEDTIME, TAB 04/30/17 Temazepam* (RESTORIL*) 15 Mg Capsule, 15 MG ORAL BEDTIME PRN for Insomnia, CAP 04/30/17 Quetiapine Fumarate (SEROQUEL) 400 Mg Tablet, 200 MG ORAL QHS, #15 TAB 0 Refills 04/30/17 Pantoprazole* (PROTONIX*) 40 Mg Tablet.dr, 40 MG ORAL DAILY, TAB 04/30/17 Ondansetron* (ZOFRAN*) 4 Mg Tablet, 4 MG ORAL Q6H PRN for Nausea & Vomiting, TAB 04/30/17 Nitroglycerin (NITROGLYCERIN) 0.4 Mg Tab.subl, 0.4 MG SL [id number] PRN for Prn Chest Pain, TAB 04/30/17 Levothyroxine Sodium* (LEVOTHYROXINE SODIUM*) 75 Mcg Tablet, 75 MCG ORAL ACBREAKFAST, TAB Take in the morning on an empty stomach, at least 30 minutes before food. 04/30/17 Al Hydroxide/mg Hydroxide (Mag-Al Plus Suspension) 30 Ml Oral.susp, 30 ML PO Q6HR for Constipation, ML 04/30/17 Acetaminophen* (ACETAMINOPHEN 325MG TABLET*) 325 Mg Tablet, 325 MG ORAL Q4H PRN for Fever/Headache/Mild Pain, TAB 04/30/17 Theophylline (THEODUR*) 100 Mg Tab.er.12h, 100 MG ORAL TWICE A DAY, #30 TAB 0 Refills 12/22/16 Atorvastatin Calcium* (LIPITOR*) 40 Mg Tablet, 40 MG ORAL BEDTIME, #30 TAB 0 Refills 12/22/16 Aspirin* (ASPIR 81*) 81 Mg Tablet.dr, 81 MG ORAL DAILY, TAB 12/22/16 Linaclotide (LINZESS) 145 Mcg Capsule, 145 MCG PO DAILY, CAP 10/15/16 Acetaminophen (Acetaminophen) 650 Mg/20.3 Ml Solution, 650 MG ORAL Q8H PRN for Fever/Headache/Mild Pain, ML 0 Refills 09/07/16 Mesalamine (PENTASA) 500 Mg Capsule.er, 1000 MG ORAL TID, #30 CAP 0 Refills 09/03/16 Montelukast Sodium* (MONTELUKAST SODIUM*) 10 Mg Tablet, 10 MG ORAL DAILY, TAB 09/03/16 Risperidone* (RISPERDAL*) 0.5 Mg Tablet, 0.5 MG ORAL BEDTIME, #30 TAB 0 Refills 09/03/16 Bupropion Hcl* (BUPROPION HCL*) 100 Mg Tablet, 100 MG ORAL DAILY, TAB 09/03/16 Ibuprofen* (MOTRIN*) 600 Mg Tablet, 800 MG ORAL THREE TIMES A DAY, #30 TAB 0 Refills 09/03/16 Topiramate* (TOPAMAX*) 25 Mg Tablet, 25 MG ORAL TWICE A DAY, #60 TAB 0 Refills 07/19/16 Levetiracetam* (LEVETIRACETAM*) 500 Mg Tablet, 1000 MG ORAL TID, #60 TAB 0 Refills 07/19/16 Duloxetine Hcl* (CYMBALTA*) 60 Mg Capsule.dr, 60 MG ORAL DAILY, CAP 07/19/16 Diphenhydramine HCl (Benadryl) 25 Mg Capsule, 25 MG PO Q6HR PRN for Itching, CAP 07/19/16 Allergies: Coded Allergies: No Known Allergies (Verified , 05/21/06) GI: Plan Plan The patient was seen and examined at bedside and all new and available data was reviewed in the patients chart. I agree with the above findings, impression and plan. (Patient seen earlier today. Signature stamp does not reflect patient encounter time.). - MD Sonia Valdes,[facility] Conrad N.P. Oct 08, 2017 13:34 LUIS POTTS Oct 15, 2017 09:06
[2017-10-08] MEDS ORDERED: Loperamide 2mg cap ORAL PRN ×2 (13:45→19:35)
--- NOTE | 2017-10-08 15:02 | Consultation ---
History of Present Illness General Date patient seen: Oct 08, 2017 Chief Complaint: General Complaint Referring physician: DWAYNE LEUNG Reason for Consultation: abdominal pain Present Illness HPI 66 year old female with pmhx of COPD/asthma, on B-12 injections via PICC line, CAD/CA, chronic pain syndrome on morphine pump, Cdiff, CVA 2004, seizure disorder, Crohn's diease w/ multiple abd surgeries presents to ED on 10/07 with abd pain, SOB and 3 days of watery, non bloody diarrhea (> 10 x/day). Patient states that she is felling mildly better since admission but is still having pain. when asked about pain states that pain is in her back, abdomen, chest, arms, shoulders, head. Denies n/v/f/c. has been having diarrhea for days and her bottom hurts. states that she has a morphine pain pump that is not functional. surgery called to evaluate for abdominal pain. on admission noted to have UTI and leukocytosis of 23k. CT as below Allergies: Coded Allergies: No Known Allergies (Verified , 05/21/06) Medication History Scheduled Al Hydroxide/mg Hydroxide (Mag-Al Plus Suspension), 30 ML PO Q6HR, (Reported) Aspirin* (Aspir 81*), 81 MG ORAL DAILY, (Reported) Atorvastatin Calcium* (Lipitor*), 40 MG ORAL BEDTIME, (Reported) Bupropion Hcl* (Bupropion Hcl*), 100 MG ORAL DAILY, (Reported) Duloxetine Hcl* (Cymbalta*), 60 MG ORAL DAILY, (Reported) Ibuprofen* (Motrin*), 800 MG ORAL THREE TIMES A DAY, (Reported) Levetiracetam* (Levetiracetam*), 1,000 MG ORAL TID, (Reported) Levothyroxine Sodium* (Levothyroxine Sodium*), 75 MCG ORAL ACBREAKFAST, ( Reported) Linaclotide (Linzess), 145 MCG PO DAILY, (Reported) Mesalamine (Pentasa), 1,000 MG ORAL TID, (Reported) Mirtazapine (Remeron), 30 MG ORAL BEDTIME, (Reported) Montelukast Sodium* (Montelukast Sodium*), 10 MG ORAL DAILY, (Reported) Pantoprazole* (Protonix*), 40 MG ORAL DAILY, (Reported) Quetiapine Fumarate (Seroquel), 200 MG ORAL QHS, (Reported) Risperidone* (Risperdal*), 0.5 MG ORAL BEDTIME, (Reported) Theophylline (Theodur*), 100 MG ORAL TWICE A DAY, (Reported) Topiramate* (Topamax*), 25 MG ORAL TWICE A DAY, (Reported) Trazodone* (Trazodone*), 150 MG ORAL BEDTIME, (Reported) Scheduled PRN Acetaminophen (Acetaminophen), 650 MG ORAL Q8H PRN for Fever/Headache/Mild Pain, (Reported) Acetaminophen* (Acetaminophen 325MG Tablet*), 325 MG ORAL Q4H PRN for Fever/ Headache/Mild Pain, (Reported) Diphenhydramine HCl (Benadryl), 25 MG PO Q6HR PRN for Itching, (Reported) Nitroglycerin (Nitroglycerin), 0.4 MG SL [id number] PRN for Prn Chest Pain, ( Reported) Ondansetron* (Zofran*), 4 MG ORAL Q6H PRN for Nausea & Vomiting, (Reported) Temazepam* (Restoril*), 15 MG ORAL BEDTIME PRN for Insomnia, (Reported) Zolpidem Tartrate* (Ambien*), 5 MG ORAL BEDTIME PRN for Insomnia, (Reported) Patient History History Provided By: Patient, Medical Record, PMD Healthcare decision maker Resuscitation status Full Code Advanced Directive on File Past Medical/Surgical History Past Medical/Surgical History: (1) Abnormal laboratory test result (2) COPD (chronic obstructive pulmonary disease) (3) Perianal abscess (4) Emphysema (5) Anemia (6) Depression (7) Lumbar spondylosis (8) Interstitial lung disease (9) Asthma (10) Chronic pain (11) Herniated nucleus pulposus, lumbar (12) Radiculopathy of lumbar region (13) Crohn's disease (14) Chronic pain syndrome (15) UTI (urinary tract infection) (16) Chronic pain disorder (17) chr psych disorder (18) recurrent syncope (19) seizure disorder, exacerbation (20) Abdominal pain (21) Dyspnea (22) SOB (shortness of breath) (23) Leukocytosis (24) Seizure (25) Nausea (26) Hx SBO (27) Abdominal pain (28) Abdominal pain (29) Purulent bronchitis (30) Shortness of breath (31) 68848 (32) 26223 (33) Respiratory distress (34) Edema (35) CHF (congestive heart failure) (36) Ileus (37) Psychosis (38) Vertigo (39) 99699 (40) Chronic pancreatitis (41) Sepsis (42) Chest pain (43) Pneumonia (44) Lower GI bleed (45) Pre-syncope (46) 112191 (47) Abnormal laboratory test result (48) Chronic back pain (49) 023342 (50) History of colonic polyps (51) Sprain of right hand (52) Acute encephalopathy (53) Intractable abdominal pain (54) Cellulitis of female genitalia (55) Abscess of right genital labia (56) Colonoscopy planned (57) Abdominal pain (58) Chronic abdominal pain (59) Slow transit constipation (60) Slow transit constipation (61) Abdominal pain (62) Constipation (63) Nausea and vomiting (64) Encounter for generalized patient complaints (65) Rib fracture (66) Small bowel obstruction (67) COPD (chronic obstructive pulmonary disease) (68) Opioid dependence (69) Asthma (70) IBD (inflammatory bowel disease) (71) Elevated CEA (72) COPD exacerbation (73) PNA (pneumonia) (74) Crohns disease (75) Diarrhea (76) Therapeutic opioid-induced constipation (OIC) Review of Systems All Other Systems: negative except mentioned in HPI Physical Exam General Appearance: no apparent distress, alert Lines, tubes and drains: PICC HEENT: normocephalic, mucous membranes moist Neck: supple Respiratory/Chest: lungs clear, normal breath sounds, no respiratory distress, no accessory muscle use Cardiovascular/Chest: normal peripheral pulses, normal rate Abdomen: non tender, soft, no organomegaly, no mass, other - left sided pain pump noted. prior wounds well healed. Extremities: normal range of motion, non-tender, normal inspection Skin Exam: normal pigmentation, warm/dry Neurologic: alert, oriented x 3 Last 24 Hour Vital Signs Date Time Temp Pulse Resp B/P (MAP) Pulse Ox O2 Delivery O2 Flow Rate FiO2 10/08/17 13:53 97.1 10/08/17 13:23 97.1 10/08/17 12:00 97.7 79 21 105/68 98 Room Air 97.7 10/08/17 09:05 97.1 10/08/17 08:00 64 10/08/17 08:00 97.1 71 18 119/62 100 Room Air 97.1 10/08/17 04:00 66 10/08/17 04:00 96.6 76 18 110/60 97 Room Air 96.6 10/08/17 00:00 96.4 80 18 113/65 97 Room Air 96.4 10/08/17 00:00 76 10/07/17 22:50 98.6 10/07/17 20:00 98.6 86 19 105/64 99 Room Air 98.6 10/07/17 20:00 86 10/07/17 17:58 99.3 88 16 104/56 95 Room Air 99.3 10/07/17 17:26 99.3 10/07/17 17:00 88 16 104/56 95 Room Air 10/07/17 16:17 88 18 98 Room Air 21 10/07/17 16:00 90 18 Room Air 21 10/07/17 16:00 91 18 100 Room Air 21 10/07/17 16:00 99.3 84 20 105/58 100 Venturi Mask 10.0 99.3 10/07/17 16:00 21 10/07/17 15:32 99.3 10/07/17 15:31 91 18 Room Air 21 10/07/17 15:31 90 18 100 Room Air 21 10/07/17 15:31 21 Intake and Output 10/07/17 10/08/17 19:00 07:00 Intake Total 1000 ml Output Total 100 ml 300 ml Balance 900 ml -300 ml Intake IV Total 1000 ml Output Urine Total 100 ml 300 ml # Voids 1 Laboratory Tests Test 10/07/17 16:00 10/07/17 17:20 Lactic Acid Level 0.80 mmol/L (0.66-2.22) Urine Color Yellow Urine Appearance Clear Urine pH 6 (4.5-8.0) Urine Specific Aladdin 1.015 (1.005-1.035) Urine Protein 2+ (NEGATIVE) H Urine Glucose (UA) Negative (NEGATIVE) Urine Ketones Negative (NEGATIVE) Urine Occult Blood 3+ (NEGATIVE) H Urine Nitrite Negative (NEGATIVE) Urine Bilirubin Negative (NEGATIVE) Urine Urobilinogen Normal MG/DL (0.0-1.0) Urine Leukocyte Esterase 1+ (NEGATIVE) H Urine RBC 20-30 /HPF (0 - 2) H Urine WBC 5-10 /HPF (0 - 2) H Urine Squamous Epithelial Cells Occasional /LPF Urine Bacteria Few /HPF (NONE) Microbiology Date/Time Source Procedure Growth Status 10/07/17 16:29 Blood Blood Culture - Preliminary Resulted 10/07/17 16:10 Blood Blood Culture - Preliminary Resulted 10/07/17 15:30 Stool Clostridium difficile Toxin Assay - Final Complete Height (Feet): 5 Height (Inches): 7.00 Weight (Pounds): 140 Medications Current Medications Medications (Trade) Dose Ordered Sig/Vaibhav Route PRN Reason Start Time Stop Time Status Last Admin Dose Admin Albuterol/ Ipratropium (Albuterol/ Ipratropium) 3 ml EVERY 4 HOURS PRN HHN dyspnea 10/07/17 22:30 3 22:29 Aspirin (Ecotrin) 81 mg DAILY ORAL 10/08/17 09:00 11/07/17 08:59 10/08/17 09:06 Atorvastatin Calcium (Lipitor) 40 mg BEDTIME ORAL 10/08/17 21:00 11/07/17 20:59 Bupropion HCl (Wellbutrin) 100 mg DAILY ORAL 10/08/17 09:00 11/07/17 08:59 10/08/17 09:06 Dextrose (Dextrose 50%) STAT PRN IV Hypoglycemia 10/07/17 22:30 11/06/17 22:29 Duloxetine HCl (Cymbalta) 60 mg DAILY ORAL 10/08/17 09:00 11/07/17 08:59 10/08/17 09:06 Heparin Sodium (Porcine) (Heparin 5000 units/ml) 5,000 units EVERY 12 HOURS SUBQ 10/08/17 09:00 11/07/17 08:59 10/08/17 09:08 Ketorolac Tromethamine (Toradol 30mg) 30 mg EVERY 8 HOURS PRN IV moderate pain 4-6 10/07/17 22:30 10/12/17 22:29 Levetiracetam (Keppra) 1,000 mg TID ORAL 10/08/17 09:00 11/07/17 08:59 10/08/17 13:23 Levothyroxine Sodium (Synthroid) 75 mcg ACBREAKFAST ORAL 10/08/17 06:30 11/07/17 06:29 10/08/17 06:34 Loperamide HCl (Imodium) 2 mg Q4H PRN ORAL Diarrhea 10/08/17 13:45 11/07/17 13:44 Lorazepam (Ativan 2mg/ml 1ml) 0.5 mg Q4H PRN IV For Anxiety 10/07/17 22:30 10/14/17 22:29 Mesalamine (Asacol) 800 mg THREE TIMES A DAY ORAL 10/08/17 18:00 11/07/17 17:59 Methylprednisolone Sodium Succinate (Solu-MEDROL) 60 mg DAILY IV 10/09/17 09:00 11/07/17 00:00 Morphine Sulfate (Morphine Sulfate) 2 mg EVERY 4 HOURS PRN IVP severe pain 7-10 10/07/17 22:30 10/14/17 22:29 10/08/17 13:23 Nitroglycerin (Ntg) 0.4 mg Q5M X 3 DOSES PRN SL Prn Chest Pain 10/07/17 22:30 11/06/17 22:29 Ondansetron HCl (Zofran) 4 mg Q6H PRN IVP Nausea & Vomiting 10/07/17 22:30 11/06/17 22:29 10/07/17 23:16 Piperacillin Sod/ Tazobactam Sod 3.375 gm/Sodium Chloride 110 ml @ 27.5 mls/hr EVERY 8 HOURS IVPB 10/08/17 06:00 10/12/17 05:59 10/08/17 13:24 Promethazine HCl/ Codeine (Phenergan with Codeine) 5 ml EVERY 6 HOURS PRN ORAL cough 10/07/17 22:30 11/06/17 22:29 Temazepam (Restoril) 15 mg HSPRN PRN ORAL Insomnia 10/07/17 22:30 10/14/17 22:29 Theophylline (Erwin-Dur) 100 mg EVERY 12 HOURS ORAL 10/08/17 09:00 11/07/17 08:59 10/08/17 09:06 Topiramate (Topamax) 25 mg TWICE A DAY ORAL 10/08/17 09:00 11/07/17 08:59 10/08/17 09:06 Trazodone HCl (Desyrel) 150 mg BEDTIME ORAL 10/08/17 21:00 4/15/18 20:59 Vancomycin HCl (Vancomycin) 125 mg FOUR TIMES A DAY ORAL 10/07/17 22:00 10/14/17 21:59 10/08/17 13:23 Assessment/Plan Problem List: (1) Abdominal pain Assessment & Plan: 66 year old female with pain everywhere as per her. states has pain pump that is not functional. pain from head to toes. on exam abd soft, non tender, prior incisions well healed, pain pump noted. no rebound, no guarding. CT reviewed and has had fair amount of colon and some sb resections. area of air noted around gallbladder and liver and agree with radiologist that likely collapsed small bowel. they do not particularly appear extraluminal. -no acute surgical intervention necessary. -okay for diet -will monitor exam -GI for IBD treatment. thank you for this consultation. will follow with recs. Qualifiers: Qualified Codes: R10.84 - Generalized abdominal pain Status: stable AvelinaWolf Oct 08, 2017 15:02
[2017-10-08 16:00] VITALS: BP 127/70
[2017-10-08] MEDS ORDERED: Mesalamine 400mg cap ORAL SCH (18:00)
--- NOTE | 2017-10-08 18:34 | Cardiology Report ---
APPROVED REPORT EXAM: Two-dimensional and M-mode echocardiogram with Doppler and color Doppler. INDICATION LV FUNCTION M-Mode DIMENSIONS IVSd1.3 (0.7-1.1cm)Left Atrium (MM)2.3 (1.6-4.0cm) LVDd5.8 (3.5-5.6cm)Aortic Root3.9 (2.0-3.7cm) PWd1.5 (0.7-1.1cm)Aortic Cusp Exc.2.0 (1.5-2.0cm) IVSs1.8 cm LVDs4.2 (2.5-4.0cm) PWs2.0 cm Technically difficult study due to poor acoustical windows . Normal left ventricular chamber size, systolic function and wall motion to extent visualized. Left ventricular ejection fraction estimated to be 60-65 %. Study quality precludes accurate assessment of regional wall motion. No evidence of left ventricular hypertrophy. No evidence of pericardial effusion. All other cardiac chamber sizes are within normal limits. Focal aortic valve sclerosis with adequate cusp excursion. Thickened mitral valve leaflets with normal excursion. Mitral annulus and aortic root calcification. Pulmonic valve not well visualized. Normal tricuspid valve structure. IVC dilated at 2.5 cm without physiologic collapse , suggestive of increased RA pressure. A color flow and spectral Doppler study was performed and revealed: No aortic regurgitation. Mild mitral regurgitation. Mitral diastolic velocities suggest reduced left ventricular relaxation c/w mild LV diastolic dysfunction (Grade I ). Mild tricuspid regurgitation. Tricuspid systolic velocities suggests peak right ventricular systolic pressure of 45 mmHg,consistent with mild pulmonary hypertension. No Pulmonic regurgitation present.
--- NOTE | 2017-10-08 18:45 | History and Physical Report ---
DATE OF ADMISSION: 10/07/2017 TIME SEEN: On 10/08/2017 at 1 p.m. CONSULTANTS: 1. Rob Wagner M.D. 2. Skyler Gallegos M.D. 3. Jose Salinas M.D. 4. Wolf Quan M.D. 5. Winston Malhotra M.D. CHIEF COMPLAINT: Shortness of breath, sepsis, abdominal pain. BRIEF HISTORY: This is a 66-year-old female with above-mentioned diagnoses, 1 week of getting weaker, lethargy with nausea, vomiting, and diarrhea at home and slight shortness of breath, who came to [facility], diagnosed with the above, admitted to telemetry floor. Currently, slight short of breath, feeling little bit better, and complained of some diarrhea. PAST MEDICAL HISTORY: COPD, Crohn's, chronic pain, history of small-bowel obstruction. PAST SURGICAL HISTORY: Includes abdominal surgery. ALLERGIES: Denies. SOCIAL HISTORY: Positive smoking. No alcohol. No intravenous drug abuse. FAMILY HISTORY: Noncontributory. PHYSICAL EXAMINATION: GENERAL: Calm in bed, oriented x3, slight abdominal pain. VITAL SIGNS: Temperature is 97, pulse , respiration 18, blood pressure 119/62. CARDIOVASCULAR: No murmur. LUNGS: Poor exchange. ABDOMEN: Soft. Bowel sounds distant. Slightly tender. No guarding. No rigidity. No rebound. EXTREMITIES: No cyanosis, clubbing, or edema. NEUROLOGIC: The patient moves all extremities. Slightly weak. LABORATORY STUDIES: Labs at this time show white count 23, hemoglobin and hematocrit 11/35, platelets 335,000. BMP showed BUN 29, glucose 118. Albumin 2.5. Lipase 48. Urinalysis showed 3+ occult blood and 1+ leukocyte esterase. MEDICATIONS: Solu-Medrol, Lipitor, Desyrel, Ecotrin, Wellbutrin, Cymbalta, Keppra, Topamax, heparin, Erwin-Dur, levofloxacin, Zosyn, lorazepam, morphine. ASSESSMENT: 1. COPD. 2. UTI. 3. Sepsis. 4. Hypoalbuminemia. 5. Abdominal pain. 6. Anemia. 7. History of SBO. 8. Crohn disease. 9. Chronic pain. PLAN: 1. O2 and pulmonary treatments as needed. 2. Antibiotics per Infectious Disease. 3. OT, PT, and dietary evaluation. 4. CBC, BMP in the morning. 5. Resume home medications. 6. We will continue to follow the patient medically. Barber Dial D.O. DR: Lay JOB#: [id number] CC:
[2017-10-08] MEDS ORDERED: Nitroglycerin Subl 0.4mg tab SL PRN (19:15)
[2017-10-08] MEDS ORDERED: Albuterol/Ipratropium 3ml neb HHN PRN (19:34)
[2017-10-08] MEDS ORDERED: LORazepam Inj 2mg/ml 1ml IV PRN (19:35)
[2017-10-08] MEDS ORDERED: Promethazine/Codeine 5ml UD ORAL PRN (19:36)
[2017-10-08] MEDS ORDERED: Ketorolac 30mg Inj IV PRN (19:39)
[2017-10-08 20:00] VITALS: BP 129/75
[2017-10-08] MEDS ORDERED: TraZODone 100mg tab ORAL SCH (21:00)
[2017-10-08] MEDS: Heparin 5000 units/ml inj SUBQ SCH (21:00)
[2017-10-08] MEDS ORDERED: Vancomycin oral 125mg/2.5ml ORAL SCH (21:00)
[2017-10-08] MEDS ORDERED: Atorvastatin 80mg tab ORAL SCH (21:00)
[2017-10-08] MEDS: Theophylline ER 100mg ORAL SCH (22:07)
[2017-10-08] MEDS: Atorvastatin 20mg tab ORAL SCH (22:08)
[2017-10-08] MEDS: TraZODone 100mg tab ORAL SCH (22:08)
--- NOTE | 2017-10-08 23:00 | Consultation ---
DATE OF CONSULTATION: 10/08/2017 INITIAL PSYCHIATRIC EVALUATION CONSULTING PHYSICIAN: Mena Goncalves M.D. HISTORY: This is a 66-year-old female patient. She has a history of COPD. The patient is admitted to the hospital. She also has abdominal pain. She does have some confusion, disorganized thought process, and mood lability. Daily psychiatric consultation was requested because the patient has overlying history of depression and anxiety as well. Thus, psychiatric consultation to evaluate her psychotropic medications at this point. Currently, she is on a psychotropic medication regimen of Cymbalta 60 mg daily, Wellbutrin 100 mg daily, and trazodone 150 mg at bedtime and on those medications, she states she is doing well, but she states that she is having a lot of abdominal pain as well and that is causing a lot of pain and difficulties with her. ALLERGIES: She has no known drug allergies. SOCIAL HISTORY: She lives in a private residence. Financially supported by [employer] and Medicare. PSYCHIATRIC HISTORY: Bipolar 2. She has had psychiatric admissions before. MENTAL STATUS EXAMINATION: The patient is a 66-year-old female, appearance disheveled, irritable, agitated. Affect guarded and restricted. Intellect poor. Mood depressed and anxious. Motor activity, psychomotor agitation. Attention span is poor. Orientation x2. Speech is pressured. Thought process, disorganized and illogical. Thought content, no auditory hallucinations or paranoid delusions. Insight and judgment is poor. No suicidal or homicidal delusions. Insight and judgment is poor to fair. DIAGNOSES: Bipolar 2. Medical, abdominal pain, hypothyroidism, and hyperlipidemia. Psychosocial stressors, financial. PLAN: She will be treated with Wellbutrin XL 150 daily, Cymbalta 30 mg a day, Topamax 25 mg twice a day, trazodone 150 mg at bedtime. Provided 20 minutes of supportive therapy. Encourage her to interact appropriately with staff and other patients. The patient's chart has been reviewed and discussed with staff. The patient was seen assessed at bedside. She will continue to be followed by Psychiatry throughout hospital course. I would like to thank, Dr. Barber Dial, for this interesting consultation. The patient was seen and assessed at bedside. Mena Goncalves M.D. DR: MERLINE JOB#: [id number] CC:
[2017-10-08] MEDS: Piperacillin/Tazobactam 3.375 GM in NS 110 ML IVPB SCH (23:03)
[2017-10-09] VITALS (7 sets, daily range): BP systolic 99–114; BP diastolic 57–69
[2017-10-09] MEDS: Piperacillin/Tazobactam 3.375 GM in NS 110 ML IVPB SCH ×3 (06:15→23:44)
[2017-10-09 07:29] LABS: HEMATOCRIT 36.1 % (37.0-47.0); HEMOGLOBIN 11.5 G/DL (12.0-16.0); MEAN CORPUSCULAR VOLUME 95 FL (80-99); PLATELET COUNT 330 K/UL (150-450); RED BLOOD COUNT 3.81 M/UL (4.20-5.40); RED CELL DISTRIBUTION WIDTH 17.3 % (11.6-14.8)
[2017-10-09 08:04] LABS: ALANINE AMINOTRANSFERASE 20 U/L (12-78); ALBUMIN 2.3 G/DL (3.4-5.0); ALBUMIN/GLOBULIN RATIO 0.3 (1.0-2.7); ALKALINE PHOSPHATASE 120 U/L (46-116); ANION GAP 9 mmol/L (5-15); ASPARTATE AMINO TRANSFERASE 14 U/L (15-37); BILIRUBIN,TOTAL 0.2 MG/DL (0.2-1.0); BLOOD UREA NITROGEN 29 mg/dL (7-18); CALCIUM 9.7 MG/DL (8.5-10.1); CARBON DIOXIDE 25 MMOL/L (21-32); CHLORIDE 107 MMOL/L (98-107); PHOSPHORUS 2.9 MG/DL (2.5-4.9); POTASSIUM 3.9 MMOL/L (3.5-5.1); SODIUM 141 MMOL/L (136-145)
--- NOTE | 2017-10-09 08:34 | General Progress Note ---
Assessment/Plan Problem List: (1) Opioid dependence ICD Codes: F11.20 - Opioid dependence SNOMED: 69157821 (2) COPD (chronic obstructive pulmonary disease) ICD Codes: J44.9 - Chronic obstructive pulmonary disease, unspecified SNOMED: 99097004 (3) Crohns disease ICD Codes: K50.90 - Crohns disease SNOMED: 71798256 (4) Diarrhea ICD Codes: R19.7 - Diarrhea, unspecified SNOMED: 20134015 (5) Shortness of breath (6) Anemia (7) Small bowel obstruction ICD Codes: K56.609 - Unspecified intestinal obstruction, unspecified as to partial versus complete obstruction SNOMED: 614092242 (8) Dyspnea (9) Chronic pain ICD Codes: G89.29 - Other chronic pain SNOMED: 67566282 (10) Abdominal pain Qualifiers: Qualified Codes: R10.84 - Generalized abdominal pain Status: unchanged Assessment/Plan o2 pulm tx abx gi sx f/u cbc bmp am Subjective Constitutional: Reports: weakness Respiratory: Reports: shortness of breath Allergies: Coded Allergies: No Known Allergies (Verified , 05/21/06) All Systems: reviewed and negative except above Subjective sleepy calm in bed Objective Last 24 Hour Vital Signs Date Time Temp Pulse Resp B/P (MAP) Pulse Ox O2 Delivery O2 Flow Rate FiO2 10/09/17 08:00 98.1 62 19 104/66 95 98.1 10/09/17 08:00 98.1 62 19 104/66 95 98.1 10/09/17 04:32 96.9 62 18 110/62 94 96.9 10/09/17 00:00 97.9 69 18 110/65 96 97.9 10/08/17 20:00 97.9 81 18 129/75 97.9 10/08/17 18:00 97.7 10/08/17 17:36 97.7 10/08/17 16:00 97.7 73 20 127/70 95 Room Air 97.7 10/08/17 16:00 74 10/08/17 13:23 97.1 10/08/17 12:00 97.7 79 21 105/68 98 Room Air 97.7 10/08/17 12:00 75 10/08/17 09:05 97.1 Intake and Output 10/08/17 10/09/17 19:00 07:00 Intake Total 465.0 ml 710.0 ml Output Total 475 ml Balance 465.0 ml 235.0 ml Intake Oral 300 ml 600 ml IV Total 165.0 ml 110.0 ml Output Urine Total 475 ml # Voids 2 2 Laboratory Tests 10/09/17 05:50: White Blood Count 24.0*H, Red Blood Count 3.81L, Hemoglobin 11.5L, Hematocrit 36.1L, Mean Corpuscular Volume 95, Mean Corpuscular Hemoglobin 30.2, Mean Corpuscular Hemoglobin Concent 31.9L, Red Cell Distribution Width 17.3H, Platelet Count 330, Mean Platelet Volume 7.6, Neutrophils (%) (Auto) , Lymphocytes (%) (Auto) , Monocytes (%) (Auto) , Eosinophils (%) (Auto) , Basophils (%) (Auto) , Neutrophils % (Manual) [Pending], Lymphocytes % (Manual) [Pending], Platelet Estimate [Pending], Platelet Morphology [Pending], Erythrocyte Sedimentation Rate [Pending], Sodium Level 141, Potassium Level 3.9 , Chloride Level 107, Carbon Dioxide Level 25, Anion Gap 9, Blood Urea Nitrogen 29H, Creatinine 1.0, Estimat Glomerular Filtration Rate > 60, Glucose Level 77, Calcium Level 9.7, Phosphorus Level 2.9, Magnesium Level 2.2, Total Bilirubin 0.2, Aspartate Amino Transf (AST/SGOT) 14L, Alanine Aminotransferase (ALT/SGPT) 20, Alkaline Phosphatase 120H, C-Reactive Protein, Quantitative 13.2H, Total Protein 9.1H, Albumin 2.3L, Globulin 6.8, Albumin/Globulin Ratio 0.3L Height (Feet): 5 Height (Inches): 7.00 Weight (Pounds): 140 General Appearance: lethargic EENT: normal ENT inspection Neck: normal alignment Cardiovascular: normal peripheral pulses, normal rate, regular rhythm Respiratory/Chest: decreased breath sounds Abdomen: normal bowel sounds, non tender, soft Extremities: normal inspection Edema: no edema noted Arm (L), no edema noted Arm (R), no edema noted Leg (L), no edema noted Leg (R), no edema noted Pedal (L), no edema noted Pedal (R), no edema noted Generalized Neurologic: motor weakness Skin: normal pigmentation, warm/dry BAYRON BENEDICT Oct 09, 2017 08:34
[2017-10-09] MEDS ORDERED: Vancomycin oral 125mg/2.5ml ORAL SCH ×2 (09:00)
[2017-10-09] MEDS ORDERED: Aspirin EC 81mg tab ORAL SCH (09:00)
[2017-10-09] MEDS ORDERED: Solu-MEDROL 125mg Inj IV SCH ×2 (09:00)
[2017-10-09] MEDS: Theophylline ER 100mg ORAL SCH ×2 (09:24→21:16)
[2017-10-09] MEDS: Mesalamine 400mg cap ORAL SCH ×3 (09:24→18:35)
[2017-10-09] MEDS: DULoxetine 30mg cap ORAL SCH (09:24)
[2017-10-09] MEDS: Topiramate 25mg tab ORAL SCH ×2 (09:25→21:16)
[2017-10-09] MEDS: Heparin 5000 units/ml inj SUBQ SCH ×2 (09:27→21:18)
--- NOTE | 2017-10-09 11:37 | General Progress Note ---
Assessment/Plan Problem List: (1) History of exploratory laparotomy ICD Codes: Z98.89 - Other specified postprocedural states SNOMED: 64930768, 27563744, 886934822 (2) Smoker ICD Codes: F17.200 - Nicotine dependence, unspecified, uncomplicated SNOMED: 19578167 (3) COPD (chronic obstructive pulmonary disease) ICD Codes: J44.9 - Chronic obstructive pulmonary disease, unspecified SNOMED: 57220869 (4) Opioid dependence ICD Codes: F11.20 - Opioid dependence SNOMED: 28563880 (5) IBD (inflammatory bowel disease) ICD Codes: K63.89 - Other specified diseases of intestine SNOMED: 90015658 (6) Elevated CEA ICD Codes: R97.0 - Elevated CEA SNOMED: 814130217 (7) Crohns disease ICD Codes: K50.90 - Crohns disease SNOMED: 69306585 Assessment/Plan negative C.diff >> dc po vanco add iv flagyl fu labs plan EGd and colonoscopy for Wednesday dc ASA repeat CEA and Ca 19-9 Subjective ROS Limited/Unobtainable: Yes Allergies: Coded Allergies: No Known Allergies (Verified , 05/21/06) Subjective abd pain no BM Objective Last 24 Hour Vital Signs Date Time Temp Pulse Resp B/P (MAP) Pulse Ox O2 Delivery O2 Flow Rate FiO2 10/09/17 08:00 98.1 62 19 104/66 95 98.1 10/09/17 08:00 98.1 62 19 104/66 95 98.1 10/09/17 04:32 96.9 62 18 110/62 94 96.9 10/09/17 00:00 97.9 69 18 110/65 96 97.9 10/08/17 20:00 97.9 81 18 129/75 97.9 10/08/17 18:00 97.7 10/08/17 17:36 97.7 10/08/17 16:00 97.7 73 20 127/70 95 Room Air 97.7 10/08/17 16:00 74 10/08/17 13:23 97.1 10/08/17 12:00 97.7 79 21 105/68 98 Room Air 97.7 10/08/17 12:00 75 Intake and Output 10/08/17 10/09/17 19:00 07:00 Intake Total 465.0 ml 710.0 ml Output Total 475 ml Balance 465.0 ml 235.0 ml Intake Oral 300 ml 600 ml IV Total 165.0 ml 110.0 ml Output Urine Total 475 ml # Voids 2 2 Laboratory Tests 10/09/17 05:50: White Blood Count 24.0*H, Red Blood Count 3.81L, Hemoglobin 11.5L, Hematocrit 36.1L, Mean Corpuscular Volume 95, Mean Corpuscular Hemoglobin 30.2, Mean Corpuscular Hemoglobin Concent 31.9L, Red Cell Distribution Width 17.3H, Platelet Count 330, Mean Platelet Volume 7.6, Neutrophils (%) (Auto) , Lymphocytes (%) (Auto) , Monocytes (%) (Auto) , Eosinophils (%) (Auto) , Basophils (%) (Auto) , Differential Total Cells Counted 100, Neutrophils % ( Manual) 84H, Lymphocytes % (Manual) 14L, Monocytes % (Manual) 2, Eosinophils % ( Manual) 0, Basophils % (Manual) 0, Band Neutrophils 0, Platelet Estimate Adequate, Platelet Morphology Normal, Anisocytosis 1+, Erythrocyte Sedimentation Rate 49H, Sodium Level 141, Potassium Level 3.9, Chloride Level 107, Carbon Dioxide Level 25, Anion Gap 9, Blood Urea Nitrogen 29H, Creatinine 1.0, Estimat Glomerular Filtration Rate > 60, Glucose Level 77, Calcium Level 9.7, Phosphorus Level 2.9, Magnesium Level 2.2, Total Bilirubin 0.2, Aspartate Amino Transf (AST/SGOT) 14L, Alanine Aminotransferase (ALT/SGPT) 20, Alkaline Phosphatase 120H, C-Reactive Protein, Quantitative 13.2H, Total Protein 9.1H, Albumin 2.3L, Globulin 6.8, Albumin/Globulin Ratio 0.3L Height (Feet): 5 Height (Inches): 7.00 Weight (Pounds): 140 General Appearance: alert EENT: normal ENT inspection Neck: supple Cardiovascular: normal rate Respiratory/Chest: decreased breath sounds Abdomen: soft, hypoactive bowel sounds, distended Extremities: non-tender LUIS POTTS Oct 09, 2017 11:37
--- NOTE | 2017-10-09 12:22 | General Surgery Progress Note ---
General Surgery-Progress Note Subjective Symptoms: improved Additional Comments still has pain all over. abdomen, back, shoulders, extremities, head. Objective Last 24 Hour Vital Signs Date Time Temp Pulse Resp B/P (MAP) Pulse Ox O2 Delivery O2 Flow Rate FiO2 10/09/17 12:00 98.1 64 19 99/57 100 98.1 10/09/17 08:00 98.1 62 19 104/66 95 98.1 10/09/17 08:00 98.1 62 19 104/66 95 98.1 10/09/17 04:32 96.9 62 18 110/62 94 96.9 10/09/17 00:00 97.9 69 18 110/65 96 97.9 10/08/17 20:00 97.9 81 18 129/75 97.9 10/08/17 18:00 97.7 10/08/17 17:36 97.7 10/08/17 16:00 97.7 73 20 127/70 95 Room Air 97.7 10/08/17 16:00 74 10/08/17 13:23 97.1 I&O Intake and Output 10/08/17 10/09/17 19:00 07:00 Intake Total 465.0 ml 710.0 ml Output Total 475 ml Balance 465.0 ml 235.0 ml Intake Oral 300 ml 600 ml IV Total 165.0 ml 110.0 ml Output Urine Total 475 ml # Voids 2 2 Cardiovascular: RSR Respiratory: clear Abdomen: soft, distended, non-tender, present bowel sounds Extremities: no edema, no cyanosis Laboratory Tests Test 10/09/17 05:50 White Blood Count 24.0 K/UL (4.8-10.8) *H Red Blood Count 3.81 M/UL (4.20-5.40) L Hemoglobin 11.5 G/DL (12.0-16.0) L Hematocrit 36.1 % (37.0-47.0) L Mean Corpuscular Volume 95 FL (80-99) Mean Corpuscular Hemoglobin 30.2 PG (27.0-31.0) Mean Corpuscular Hemoglobin Concent 31.9 G/DL (32.0-36.0) L Red Cell Distribution Width 17.3 % (11.6-14.8) H Platelet Count 330 K/UL (150-450) Mean Platelet Volume 7.6 FL (6.5-10.1) Neutrophils (%) (Auto) % (45.0-75.0) Lymphocytes (%) (Auto) % (20.0-45.0) Monocytes (%) (Auto) % (1.0-10.0) Eosinophils (%) (Auto) % (0.0-3.0) Basophils (%) (Auto) % (0.0-2.0) Differential Total Cells Counted 100 Neutrophils % (Manual) 84 % (45-75) H Lymphocytes % (Manual) 14 % (20-45) L Monocytes % (Manual) 2 % (1-10) Eosinophils % (Manual) 0 % (0-3) Basophils % (Manual) 0 % (0-2) Band Neutrophils 0 % (0-8) Platelet Estimate Adequate Platelet Morphology Normal Anisocytosis 1+ Erythrocyte Sedimentation Rate 49 MM/HR (0-30) H Sodium Level 141 MMOL/L (136-145) Potassium Level 3.9 MMOL/L (3.5-5.1) Chloride Level 107 MMOL/L (98-107) Carbon Dioxide Level 25 MMOL/L (21-32) Anion Gap 9 mmol/L (5-15) Blood Urea Nitrogen 29 mg/dL (7-18) H Creatinine 1.0 MG/DL (0.55-1.30) Estimat Glomerular Filtration Rate > 60 mL/min (>60) Glucose Level 77 MG/DL (74-106) Calcium Level 9.7 MG/DL (8.5-10.1) Phosphorus Level 2.9 MG/DL (2.5-4.9) Magnesium Level 2.2 MG/DL (1.8-2.4) Total Bilirubin 0.2 MG/DL (0.2-1.0) Aspartate Amino Transf (AST/SGOT) 14 U/L (15-37) L Alanine Aminotransferase (ALT/SGPT) 20 U/L (12-78) Alkaline Phosphatase 120 U/L (46-116) H C-Reactive Protein, Quantitative 13.2 mg/dL (0.00-0.90) H Total Protein 9.1 G/DL (6.4-8.2) H Albumin 2.3 G/DL (3.4-5.0) L Globulin 6.8 g/dL Albumin/Globulin Ratio 0.3 (1.0-2.7) L Plan Problems: (1) Abdominal pain Assessment & Plan: 66 year old female with pain everywhere as per her. states has pain pump that is not functional. pain from head to toes. on exam abd soft, non tender, prior incisions well healed, pain pump noted. no rebound, no guarding. CT reviewed and has had fair amount of colon and some sb resections. area of air noted around gallbladder and liver and agree with radiologist that likely collapsed small bowel. they do not particularly appear extraluminal. afebrile, HD stable, abdominal exam benign. significant leukocytosis. UTI with gram negative rods bacteremia likely etiology. -no acute surgical intervention necessary. -okay for diet -will monitor exam -Abx as per ID thank you for this consultation. will follow with emerita. Wolf Quan Oct 09, 2017 12:22
[2017-10-09] MEDS: Morphine Sulfate 2mg/ml Inj IVP PRN (14:16)
--- NOTE | 2017-10-09 17:09 | Pulmonology Progress Note ---
Assessment/Plan Problems: (1) Gram-negative bacteremia (2) PNA (pneumonia) (3) IBD (inflammatory bowel disease) (4) Asthma (5) Opioid dependence (6) COPD exacerbation (7) Elevated CEA Assessment/Plan improving clinically, WBC high, ? steroids still lots of sputum continue abx taper steroids to 30 QD chest pt symptomatic treatment pain management. Subjective ROS Limited/Unobtainable: No Constitutional: Reports: no symptoms HEENT: Repors: no symptoms Respiratory: Reports: no symptoms Allergies: Coded Allergies: No Known Allergies (Verified , 05/21/06) Objective Last 24 Hour Vital Signs Date Time Temp Pulse Resp B/P (MAP) Pulse Ox O2 Delivery O2 Flow Rate FiO2 10/09/17 15:44 98.4 72 20 105/65 96 98.4 10/09/17 13:07 97.8 67 18 106/61 98 Room Air 97.8 10/09/17 12:00 98.1 64 19 99/57 100 98.1 10/09/17 12:00 Room Air 10/09/17 08:00 Room Air 10/09/17 08:00 98.1 62 19 104/66 95 98.1 10/09/17 08:00 98.1 62 19 104/66 95 98.1 10/09/17 04:32 96.9 62 18 110/62 94 96.9 10/09/17 00:00 97.9 69 18 110/65 96 97.9 10/08/17 20:00 97.9 81 18 129/75 97.9 10/08/17 18:00 97.7 10/08/17 17:36 97.7 Intake and Output 10/08/17 10/09/17 19:00 07:00 Intake Total 465.0 ml 710.0 ml Output Total 475 ml Balance 465.0 ml 235.0 ml Intake Oral 300 ml 600 ml IV Total 165.0 ml 110.0 ml Output Urine Total 475 ml # Voids 2 2 Objective General Appearance: WD/WN, no apparent distress Lines, tubes and drains: peripheral HEENT: normocephalic, anicteric Neck: non-tender, normal alignment Respiratory/Chest: chest wall non-tender, + rhonchi Cardiovascular/Chest: normal peripheral pulses Abdomen: normal bowel sounds EXt: no C/C/E Microbiology Date/Time Source Procedure Growth Status 10/07/17 16:29 Blood Blood Culture - Preliminary Resulted 10/07/17 16:10 Blood Blood Culture - Preliminary Gram Negative Justo Resulted 10/07/17 15:30 Stool Clostridium difficile Toxin Assay - Final Complete Laboratory Tests 10/09/17 05:50: White Blood Count 24.0*H, Red Blood Count 3.81L, Hemoglobin 11.5L, Hematocrit 36.1L, Mean Corpuscular Volume 95, Mean Corpuscular Hemoglobin 30.2, Mean Corpuscular Hemoglobin Concent 31.9L, Red Cell Distribution Width 17.3H, Platelet Count 330, Mean Platelet Volume 7.6, Neutrophils (%) (Auto) , Lymphocytes (%) (Auto) , Monocytes (%) (Auto) , Eosinophils (%) (Auto) , Basophils (%) (Auto) , Differential Total Cells Counted 100, Neutrophils % ( Manual) 84H, Lymphocytes % (Manual) 14L, Monocytes % (Manual) 2, Eosinophils % ( Manual) 0, Basophils % (Manual) 0, Band Neutrophils 0, Platelet Estimate Adequate, Platelet Morphology Normal, Anisocytosis 1+, Erythrocyte Sedimentation Rate 49H, Sodium Level 141, Potassium Level 3.9, Chloride Level 107, Carbon Dioxide Level 25, Anion Gap 9, Blood Urea Nitrogen 29H, Creatinine 1.0, Estimat Glomerular Filtration Rate > 60, Glucose Level 77, Calcium Level 9.7, Phosphorus Level 2.9, Magnesium Level 2.2, Total Bilirubin 0.2, Aspartate Amino Transf (AST/SGOT) 14L, Alanine Aminotransferase (ALT/SGPT) 20, Alkaline Phosphatase 120H, C-Reactive Protein, Quantitative 13.2H, Total Protein 9.1H, Albumin 2.3L, Globulin 6.8, Albumin/Globulin Ratio 0.3L Current Medications Medications (Trade) Dose Ordered Sig/Vaibhav Route PRN Reason Start Time Stop Time Status Last Admin Dose Admin Albuterol/ Ipratropium (Albuterol/ Ipratropium) 3 ml EVERY 4 HOURS PRN HHN dyspnea 10/08/17 19:34 10/12/17 19:33 Atorvastatin Calcium (Lipitor) 40 mg BEDTIME ORAL 10/08/17 21:00 11/07/17 20:59 10/08/17 22:08 Bupropion HCl (Wellbutrin) 100 mg DAILY ORAL 10/09/17 09:00 11/07/17 08:59 10/09/17 09:24 Dextrose (Dextrose 50%) STAT PRN IV Hypoglycemia 10/08/17 19:34 11/06/17 19:33 Duloxetine HCl (Cymbalta) 60 mg DAILY ORAL 10/09/17 09:00 11/07/17 08:59 10/09/17 09:24 Heparin Sodium (Porcine) (Heparin 5000 units/ml) 5,000 units EVERY 12 HOURS SUBQ 10/08/17 21:00 11/07/17 08:59 10/09/17 09:27 Ketorolac Tromethamine (Toradol 30mg) 30 mg EVERY 8 HOURS PRN IV moderate pain 4-6 10/08/17 19:39 10/12/17 19:38 Levetiracetam (Keppra) 1,000 mg Q8HR ORAL 10/09/17 06:00 11/08/17 05:59 10/09/17 13:56 Levothyroxine Sodium (Synthroid) 75 mcg ACBREAKFAST ORAL 10/09/17 06:30 11/07/17 06:29 10/09/17 06:39 Loperamide HCl (Imodium) 2 mg Q4H PRN ORAL Diarrhea 10/08/17 19:35 11/07/17 19:34 Lorazepam (Ativan 2mg/ml 1ml) 0.5 mg Q4H PRN IV For Anxiety 10/08/17 19:35 10/14/17 19:34 Mesalamine (Asacol) 800 mg THREE TIMES A DAY ORAL 10/09/17 09:00 11/07/17 17:59 10/09/17 13:56 Methylprednisolone Sodium Succinate (Solu-MEDROL) 60 mg DAILY IV 10/09/17 09:00 11/07/17 00:00 10/09/17 09:25 Metronidazole 100 ml @ 100 mls/hr Q8HR IVPB 10/09/17 14:00 10/16/17 13:59 10/09/17 13:56 Morphine Sulfate (Morphine Sulfate) 2 mg EVERY 4 HOURS PRN IVP severe pain 7-10 10/08/17 19:36 10/14/17 19:35 10/09/17 14:16 Nitroglycerin (Ntg) 0.4 mg Q5M X 3 DOSES PRN SL Prn Chest Pain 10/08/17 19:15 11/06/17 22:29 Ondansetron HCl (Zofran) 4 mg Q6H PRN IVP Nausea & Vomiting 10/08/17 19:36 11/06/17 19:35 Piperacillin Sod/ Tazobactam Sod 3.375 gm/Sodium Chloride 110 ml @ 27.5 mls/hr EVERY 8 HOURS IVPB 10/08/17 22:00 10/12/17 05:59 10/09/17 16:08 Promethazine HCl/ Codeine (Phenergan with Codeine) 5 ml EVERY 6 HOURS PRN ORAL cough 10/08/17 19:36 11/07/17 19:35 Temazepam (Restoril) 15 mg HSPRN PRN ORAL Insomnia 10/08/17 19:36 10/14/17 19:35 Theophylline (Erwin-Dur) 100 mg EVERY 12 HOURS ORAL 10/08/17 21:00 11/07/17 08:59 10/09/17 09:24 Topiramate (Topamax) 25 mg Q12HR ORAL 10/09/17 09:00 11/08/17 08:59 10/09/17 09:25 Trazodone HCl (Desyrel) 150 mg BEDTIME ORAL 10/08/17 21:00 11/07/17 20:59 10/08/17 22:08 Rob Wagner MD Oct 09, 2017 17:08
--- NOTE | 2017-10-09 19:47 | Infectious Diseases Prog Note ---
Assessment/Plan Assessment/Plan Assessment: Sepsis Gram negative bacteremia- likely from GI source- r/o Crohn's flare, colitis, ? bowel perforation given CT findings- r/o PICC line infection -Bcx 10/27 GNRs -CT abd/p w/: Limited assessment of the GI tract, due to lack of enteric contrast administration. Evidence of extensive prior bowel surgery, with evidence of resection of much of the colon, enterocolic and entero-enteral anastomoses. Dilated right upper quadrant small bowel loops. Most likely on the basis of disordered motility related to the prior surgery, particularly given similarity to the previous exam. However, given evidence of nondilated small bowel loops elsewhere, the possibility of small bowel obstruction should be considered. Gas bubbles adjacent to the gallbladder fossa. Probably within collapsed adjacent small bowel, but the possibility that these represent extraluminal gas bubbles and which would therefore indicate bowel perforation should also be considered. Considerable fluid within the residual colon. Per discussion with referring physician, patient has recent history of diarrhea. Findings are certainly concordant with that. Subcentimeter low-attenuation renal lesions, too small to characterize, most likely benign simple cysts. Right posterior 11th rib fracture, appears acute. Bilateral basilar pulmonary fibrotic changes, also previously demonstrated Leukocytosis Persistent ( on steroids ) -afebrile -CXR 10/07: Mild interstitial prominence, similar to the previous study and likely reflecting fibrotic changes demonstrated on a CT scan of December 2013. No definite acute infiltrate -u/a WBC 5-10, nit neg, leuk +1 Hx of Cdiff -Cdiff 10/07 neg Crohn's disease w/ multiple abd surgeries COPD/asthma on B-12 injections via PICC line CAD/NE chronic pain syndrome on morphine pump CVA 2004 seizure disorder Plan: -Continue Zosyn d # 2 pending GNRs ID and sensi and IV Flagyl d# 1 SP oral Vanco d# 2 -2 sets of Bcx -stool cx -f/u cx -Monitor CBC/BMP, temperatures -surgery eval - remove PICC and send the tip for culture - MRI of Lumbar spine ro intrathecal abscess ,( due to Morphine pump) Subjective Allergies: Coded Allergies: No Known Allergies (Verified , 05/21/06) Subjective persistent leukocytosis Objective Vital Signs Last 24 Hour Vital Signs Date Time Temp Pulse Resp B/P (MAP) Pulse Ox O2 Delivery O2 Flow Rate FiO2 10/09/17 15:44 98.4 72 20 105/65 96 98.4 10/09/17 13:07 97.8 67 18 106/61 98 Room Air 97.8 10/09/17 12:00 98.1 64 19 99/57 100 98.1 10/09/17 12:00 Room Air 10/09/17 08:00 Room Air 10/09/17 08:00 98.1 62 19 104/66 95 98.1 10/09/17 08:00 98.1 62 19 104/66 95 98.1 10/09/17 04:32 96.9 62 18 110/62 94 96.9 10/09/17 00:00 97.9 69 18 110/65 96 97.9 10/08/17 20:00 97.9 81 18 129/75 97.9 Height (Feet): 5 Height (Inches): 7.00 Weight (Pounds): 140 HEENT: atraumatic Respiratory/Chest: normal breath sounds Abdomen: tender Microbiology Date/Time Source Procedure Growth Status 10/07/17 16:29 Blood Blood Culture - Preliminary Resulted 10/07/17 16:10 Blood Blood Culture - Preliminary Gram Negative Justo Resulted 10/07/17 15:30 Stool Clostridium difficile Toxin Assay - Final Complete Laboratory Tests Test 10/09/17 05:50 White Blood Count 24.0 K/UL (4.8-10.8) *H Red Blood Count 3.81 M/UL (4.20-5.40) L Hemoglobin 11.5 G/DL (12.0-16.0) L Hematocrit 36.1 % (37.0-47.0) L Mean Corpuscular Volume 95 FL (80-99) Mean Corpuscular Hemoglobin 30.2 PG (27.0-31.0) Mean Corpuscular Hemoglobin Concent 31.9 G/DL (32.0-36.0) L Red Cell Distribution Width 17.3 % (11.6-14.8) H Platelet Count 330 K/UL (150-450) Mean Platelet Volume 7.6 FL (6.5-10.1) Neutrophils (%) (Auto) % (45.0-75.0) Lymphocytes (%) (Auto) % (20.0-45.0) Monocytes (%) (Auto) % (1.0-10.0) Eosinophils (%) (Auto) % (0.0-3.0) Basophils (%) (Auto) % (0.0-2.0) Differential Total Cells Counted 100 Neutrophils % (Manual) 84 % (45-75) H Lymphocytes % (Manual) 14 % (20-45) L Monocytes % (Manual) 2 % (1-10) Eosinophils % (Manual) 0 % (0-3) Basophils % (Manual) 0 % (0-2) Band Neutrophils 0 % (0-8) Platelet Estimate Adequate Platelet Morphology Normal Anisocytosis 1+ Erythrocyte Sedimentation Rate 49 MM/HR (0-30) H Sodium Level 141 MMOL/L (136-145) Potassium Level 3.9 MMOL/L (3.5-5.1) Chloride Level 107 MMOL/L (98-107) Carbon Dioxide Level 25 MMOL/L (21-32) Anion Gap 9 mmol/L (5-15) Blood Urea Nitrogen 29 mg/dL (7-18) H Creatinine 1.0 MG/DL (0.55-1.30) Estimat Glomerular Filtration Rate > 60 mL/min (>60) Glucose Level 77 MG/DL (74-106) Calcium Level 9.7 MG/DL (8.5-10.1) Phosphorus Level 2.9 MG/DL (2.5-4.9) Magnesium Level 2.2 MG/DL (1.8-2.4) Total Bilirubin 0.2 MG/DL (0.2-1.0) Aspartate Amino Transf (AST/SGOT) 14 U/L (15-37) L Alanine Aminotransferase (ALT/SGPT) 20 U/L (12-78) Alkaline Phosphatase 120 U/L (46-116) H C-Reactive Protein, Quantitative 13.2 mg/dL (0.00-0.90) H Total Protein 9.1 G/DL (6.4-8.2) H Albumin 2.3 G/DL (3.4-5.0) L Globulin 6.8 g/dL Albumin/Globulin Ratio 0.3 (1.0-2.7) L Current Medications Medications (Trade) Dose Ordered Sig/Vaibhav Route PRN Reason Start Time Stop Time Status Last Admin Dose Admin Albuterol/ Ipratropium (Albuterol/ Ipratropium) 3 ml EVERY 4 HOURS PRN HHN dyspnea 10/08/17 19:34 10/12/17 19:33 Atorvastatin Calcium (Lipitor) 40 mg BEDTIME ORAL 10/08/17 21:00 11/07/17 20:59 10/08/17 22:08 Bupropion HCl (Wellbutrin) 100 mg DAILY ORAL 10/09/17 09:00 11/07/17 08:59 10/09/17 09:24 Dextrose (Dextrose 50%) STAT PRN IV Hypoglycemia 10/08/17 19:34 11/06/17 19:33 Duloxetine HCl (Cymbalta) 60 mg DAILY ORAL 10/09/17 09:00 11/07/17 08:59 10/09/17 09:24 Heparin Sodium (Porcine) (Heparin 5000 units/ml) 5,000 units EVERY 12 HOURS SUBQ 10/08/17 21:00 11/07/17 08:59 10/09/17 09:27 Ketorolac Tromethamine (Toradol 30mg) 30 mg EVERY 8 HOURS PRN IV moderate pain 4-6 10/08/17 19:39 10/12/17 19:38 Levetiracetam (Keppra) 1,000 mg Q8HR ORAL 10/09/17 06:00 11/08/17 05:59 10/09/17 13:56 Levothyroxine Sodium (Synthroid) 75 mcg ACBREAKFAST ORAL 10/09/17 06:30 11/07/17 06:29 10/09/17 06:39 Loperamide HCl (Imodium) 2 mg Q4H PRN ORAL Diarrhea 10/08/17 19:35 11/07/17 19:34 Lorazepam (Ativan 2mg/ml 1ml) 0.5 mg Q4H PRN IV For Anxiety 10/08/17 19:35 10/14/17 19:34 Mesalamine (Asacol) 800 mg THREE TIMES A DAY ORAL 10/09/17 09:00 11/07/17 17:59 10/09/17 18:35 Methylprednisolone Sodium Succinate (Solu-MEDROL) 30 mg DAILY IVP 10/10/17 09:00 11/09/17 08:59 Metronidazole 100 ml @ 100 mls/hr Q8HR IVPB 10/09/17 14:00 10/16/17 13:59 10/09/17 13:56 Morphine Sulfate (Morphine Sulfate) 2 mg EVERY 4 HOURS PRN IVP severe pain 7-10 10/08/17 19:36 10/14/17 19:35 10/09/17 14:16 Nitroglycerin (Ntg) 0.4 mg Q5M X 3 DOSES PRN SL Prn Chest Pain 10/08/17 19:15 11/06/17 22:29 Ondansetron HCl (Zofran) 4 mg Q6H PRN IVP Nausea & Vomiting 10/08/17 19:36 11/06/17 19:35 Piperacillin Sod/ Tazobactam Sod 3.375 gm/Sodium Chloride 110 ml @ 27.5 mls/hr EVERY 8 HOURS IVPB 10/08/17 22:00 10/12/17 05:59 10/09/17 16:08 Promethazine HCl/ Codeine (Phenergan with Codeine) 5 ml EVERY 6 HOURS PRN ORAL cough 10/08/17 19:36 11/07/17 19:35 Temazepam (Restoril) 15 mg HSPRN PRN ORAL Insomnia 10/08/17 19:36 10/14/17 19:35 Theophylline (Erwin-Dur) 100 mg EVERY 12 HOURS ORAL 10/08/17 21:00 11/07/17 08:59 10/09/17 09:24 Topiramate (Topamax) 25 mg Q12HR ORAL 10/09/17 09:00 11/08/17 08:59 10/09/17 09:25 Trazodone HCl (Desyrel) 150 mg BEDTIME ORAL 10/08/17 21:00 11/07/17 20:59 10/08/17 22:08 JUNIOR PUENTE M.D. Oct 09, 2017 19:47
[2017-10-09] MEDS: TraZODone 100mg tab ORAL SCH (21:16)
[2017-10-09] MEDS: Atorvastatin 20mg tab ORAL SCH (21:16)
--- NOTE | 2017-10-09 21:45 | Consultation ---
DATE OF CONSULTATION: 10/09/2017 CONSULTING PHYSICIAN: Mena Goncalves M.D. HISTORY: This is a 66-year-old female patient with COPD, continues to have some mood lability, confusion, disorganized thought process. Attending has requested daily psychiatric consultation. MENTAL STATUS EXAMINATION: The patient is a 66-year-old female with psychomotor retardation. Mood is depressed. Affect guarded and restricted. Thought process, disorganized and illogical. Denies current suicidal or homicidal thoughts. Insight and judgment is poor. DIAGNOSIS: Bipolar 2. PLAN: Treat with Topamax 25 mg twice a day, Cymbalta 30 mg . Provide behavioral management and also provide 18 to 20 minutes of supportive therapy. Encourage him to interact appropriately with staff. Chart reviewed. Discussed with staff. Seen and assessed in her room. Mena Goncalves M.D. DR: MERLINE JOB#: [id number] CC:
[2017-10-10] VITALS (7 sets, daily range): BP systolic 95–127; BP diastolic 57–83
[2017-10-10] MEDS: Dyna-Hex 2% Top Sol 2oz TOPIC SCH ×2 (00:54→23:18)
[2017-10-10] MEDS: Piperacillin/Tazobactam 3.375 GM in NS 110 ML IVPB SCH ×3 (06:46→23:00)
[2017-10-10 07:31] LABS: BASOPHILS % (AUTO) 0.4 % (0.0-2.0); EOSINOPHILS % (AUTO) 1.4 % (0.0-3.0); HEMATOCRIT 35.4 % (37.0-47.0); HEMOGLOBIN 11.5 G/DL (12.0-16.0); LYMPHOCYTES % (AUTO) 17.3 % (20.0-45.0); MEAN CORPUSCULAR VOLUME 93 FL (80-99); MONOCYTES % (AUTO) 3.9 % (1.0-10.0); NEUTROPHILS % (AUTO) 77.1 % (45.0-75.0); PLATELET COUNT 355 K/UL (150-450); RED BLOOD COUNT 3.83 M/UL (4.20-5.40); RED CELL DISTRIBUTION WIDTH 16.6 % (11.6-14.8); WHITE BLOOD COUNT 8.4 K/UL (4.8-10.8)
[2017-10-10 07:49] LABS: INR 1.1 (0.9-1.1)
[2017-10-10 07:53] LABS: ALANINE AMINOTRANSFERASE 23 U/L (12-78); ALBUMIN 2.1 G/DL (3.4-5.0); ALBUMIN/GLOBULIN RATIO 0.4 (1.0-2.7); ALKALINE PHOSPHATASE 109 U/L (46-116); ANION GAP 6 mmol/L (5-15); ASPARTATE AMINO TRANSFERASE 22 U/L (15-37); BILIRUBIN,TOTAL 0.2 MG/DL (0.2-1.0); BLOOD UREA NITROGEN 33 mg/dL (7-18); CALCIUM 8.6 MG/DL (8.5-10.1); CARBON DIOXIDE 27 MMOL/L (21-32); CHLORIDE 106 MMOL/L (98-107); CREATININE 0.9 MG/DL (0.55-1.30); POTASSIUM 4.2 MMOL/L (3.5-5.1); SODIUM 139 MMOL/L (136-145)
[2017-10-10 08:00] LABS: % IRON SATURATION 18 % (15-50); IRON 37 ug/dL (50-175); TOTAL IRON BINDING CAPACITY 210 ug/dL (250-450)
[2017-10-10] MEDS: Mesalamine 400mg cap ORAL SCH ×3 (08:42→17:08)
[2017-10-10] MEDS: Topiramate 25mg tab ORAL SCH ×2 (08:43→21:34)
[2017-10-10] MEDS: DULoxetine 30mg cap ORAL SCH (08:43)
[2017-10-10] MEDS: Theophylline ER 100mg ORAL SCH ×2 (08:43→21:34)
[2017-10-10] MEDS: Solu-MEDROL 40mg Inj IVP SCH (08:43)
[2017-10-10] MEDS: Heparin 5000 units/ml inj SUBQ SCH ×2 (08:46→20:19)
--- NOTE | 2017-10-10 08:55 | General Progress Note ---
Assessment/Plan Problem List: (1) History of exploratory laparotomy ICD Codes: Z98.89 - Other specified postprocedural states SNOMED: 09228242, 00381872, 376768714 (2) Smoker ICD Codes: F17.200 - Nicotine dependence, unspecified, uncomplicated SNOMED: 63773901 (3) COPD (chronic obstructive pulmonary disease) ICD Codes: J44.9 - Chronic obstructive pulmonary disease, unspecified SNOMED: 92674586 (4) Opioid dependence ICD Codes: F11.20 - Opioid dependence SNOMED: 48399025 (5) IBD (inflammatory bowel disease) ICD Codes: K63.89 - Other specified diseases of intestine SNOMED: 41869756 (6) Elevated CEA ICD Codes: R97.0 - Elevated CEA SNOMED: 570301882 (7) Crohns disease ICD Codes: K50.90 - Crohns disease SNOMED: 46799426 Assessment/Plan negative C.diff >> dc po vanco add iv flagyl improved WBC fu labs plan EGD and colonoscopy for Wednesday dc ASA repeat CEA and Ca 19-9 Subjective ROS Limited/Unobtainable: Yes Allergies: Coded Allergies: No Known Allergies (Verified , 05/21/06) Subjective abd pain no BM Objective Last 24 Hour Vital Signs Date Time Temp Pulse Resp B/P (MAP) Pulse Ox O2 Delivery O2 Flow Rate FiO2 10/10/17 08:00 Room Air 10/10/17 08:00 98.1 83 19 99/83 100 98.1 10/10/17 06:13 85 96/66 10/10/17 05:52 Room Air 10/10/17 04:00 98.0 73 16 95/57 98 98.0 10/10/17 01:11 Room Air 10/10/17 00:00 98.1 74 21 127/66 92 Room Air 98.1 10/09/17 20:00 98.4 82 19 114/69 92 Room Air 98.4 10/09/17 20:00 Room Air 10/09/17 15:44 98.4 72 20 105/65 96 98.4 10/09/17 13:07 97.8 67 18 106/61 98 Room Air 97.8 10/09/17 12:00 98.1 64 19 99/57 100 98.1 10/09/17 12:00 Room Air Intake and Output 10/09/17 10/10/17 19:00 07:00 Intake Total 240 ml 450.0 ml Balance 240 ml 450.0 ml Intake Oral 240 ml 240 ml IV Total 210.0 ml # Voids 2 2 Laboratory Tests 10/10/17 05:30: White Blood Count 8.4#, Red Blood Count 3.83L, Hemoglobin 11.5L, Hematocrit 35.4L, Mean Corpuscular Volume 93, Mean Corpuscular Hemoglobin 30.0, Mean Corpuscular Hemoglobin Concent 32.3, Red Cell Distribution Width 16.6H, Platelet Count 355, Mean Platelet Volume 7.0, Neutrophils (%) (Auto) 77.1H, Lymphocytes (%) (Auto) 17.3L, Monocytes (%) (Auto) 3.9, Eosinophils (%) (Auto) 1.4, Basophils (%) (Auto) 0.4, Prothrombin Time 11.0, Prothromb Time International Ratio 1.1, Sodium Level 139, Potassium Level 4.2, Chloride Level 106, Carbon Dioxide Level 27, Anion Gap 6, Blood Urea Nitrogen 33H, Creatinine 0.9, Estimat Glomerular Filtration Rate > 60, Glucose Level 82, Calcium Level 8.6, Iron Level 37L, Total Iron Binding Capacity 210L, Percent Iron Saturation 18, Unsaturated Iron Binding 173, Total Bilirubin 0.2, Aspartate Amino Transf ( AST/SGOT) 22, Alanine Aminotransferase (ALT/SGPT) 23, Alkaline Phosphatase 109, Total Protein 7.5, Albumin 2.1L, Globulin 5.4, Albumin/Globulin Ratio 0.4L Height (Feet): 5 Height (Inches): 7.00 Weight (Pounds): 140 General Appearance: alert EENT: normal ENT inspection Neck: supple Cardiovascular: normal rate Respiratory/Chest: decreased breath sounds Abdomen: normal bowel sounds, non tender, soft Extremities: non-tender LUIS POTTS Oct 10, 2017 08:55
--- NOTE | 2017-10-10 08:57 | General Progress Note ---
Assessment/Plan Problem List: (1) Opioid dependence ICD Codes: F11.20 - Opioid dependence SNOMED: 15740183 (2) COPD (chronic obstructive pulmonary disease) ICD Codes: J44.9 - Chronic obstructive pulmonary disease, unspecified SNOMED: 14740058 (3) Crohns disease ICD Codes: K50.90 - Crohns disease SNOMED: 86026301 (4) Diarrhea ICD Codes: R19.7 - Diarrhea, unspecified SNOMED: 24205183 (5) Shortness of breath (6) Anemia (7) Small bowel obstruction ICD Codes: K56.609 - Unspecified intestinal obstruction, unspecified as to partial versus complete obstruction SNOMED: 035175652 (8) Dyspnea (9) Chronic pain ICD Codes: G89.29 - Other chronic pain SNOMED: 26522666 (10) Abdominal pain Qualifiers: Qualified Codes: R10.84 - Generalized abdominal pain Status: unchanged Assessment/Plan o2 pulm tx abx gi sx f/u cbc bmp am Subjective Constitutional: Reports: weakness Respiratory: Reports: shortness of breath Allergies: Coded Allergies: No Known Allergies (Verified , 05/21/06) Subjective sleepy calm in bed Objective Last 24 Hour Vital Signs Date Time Temp Pulse Resp B/P (MAP) Pulse Ox O2 Delivery O2 Flow Rate FiO2 10/10/17 08:00 Room Air 10/10/17 08:00 98.1 83 19 99/83 100 98.1 10/10/17 06:13 85 96/66 10/10/17 05:52 Room Air 10/10/17 04:00 98.0 73 16 95/57 98 98.0 10/10/17 01:11 Room Air 10/10/17 00:00 98.1 74 21 127/66 92 Room Air 98.1 10/09/17 20:00 98.4 82 19 114/69 92 Room Air 98.4 10/09/17 20:00 Room Air 10/09/17 15:44 98.4 72 20 105/65 96 98.4 10/09/17 13:07 97.8 67 18 106/61 98 Room Air 97.8 10/09/17 12:00 98.1 64 19 99/57 100 98.1 10/09/17 12:00 Room Air Intake and Output 10/09/17 10/10/17 19:00 07:00 Intake Total 240 ml 450.0 ml Balance 240 ml 450.0 ml Intake Oral 240 ml 240 ml IV Total 210.0 ml # Voids 2 2 Laboratory Tests 10/10/17 05:30: White Blood Count 8.4#, Red Blood Count 3.83L, Hemoglobin 11.5L, Hematocrit 35.4L, Mean Corpuscular Volume 93, Mean Corpuscular Hemoglobin 30.0, Mean Corpuscular Hemoglobin Concent 32.3, Red Cell Distribution Width 16.6H, Platelet Count 355, Mean Platelet Volume 7.0, Neutrophils (%) (Auto) 77.1H, Lymphocytes (%) (Auto) 17.3L, Monocytes (%) (Auto) 3.9, Eosinophils (%) (Auto) 1.4, Basophils (%) (Auto) 0.4, Prothrombin Time 11.0, Prothromb Time International Ratio 1.1, Sodium Level 139, Potassium Level 4.2, Chloride Level 106, Carbon Dioxide Level 27, Anion Gap 6, Blood Urea Nitrogen 33H, Creatinine 0.9, Estimat Glomerular Filtration Rate > 60, Glucose Level 82, Calcium Level 8.6, Iron Level 37L, Total Iron Binding Capacity 210L, Percent Iron Saturation 18, Unsaturated Iron Binding 173, Total Bilirubin 0.2, Aspartate Amino Transf ( AST/SGOT) 22, Alanine Aminotransferase (ALT/SGPT) 23, Alkaline Phosphatase 109, Total Protein 7.5, Albumin 2.1L, Globulin 5.4, Albumin/Globulin Ratio 0.4L Height (Feet): 5 Height (Inches): 7.00 Weight (Pounds): 140 General Appearance: lethargic EENT: normal ENT inspection Neck: normal alignment Cardiovascular: normal peripheral pulses, normal rate, regular rhythm Respiratory/Chest: chest wall non-tender, decreased breath sounds Abdomen: normal bowel sounds, non tender, soft Extremities: normal inspection Edema: no edema noted Arm (L), no edema noted Arm (R), no edema noted Leg (L), no edema noted Leg (R), no edema noted Pedal (L), no edema noted Pedal (R), no edema noted Generalized Neurologic: responsive, motor weakness Skin: normal pigmentation, warm/dry BAYRON BENEDICT Oct 10, 2017 08:57
--- NOTE | 2017-10-10 11:37 | General Progress Note ---
Assessment/Plan Assessment/Plan (1) Lumbar spondylosis (2) Chronic abdominal pain (3) Radiculopathy of lumbar region (4) Herniated nucleus pulposus, lumbar (5) Chronic pancreatitis (6) Chronic pain Pt will be continued on Morphine and pt has intrathecal pump. Pt was d/w Dr. Malhotra and he concurred. Subjective Date patient seen: Oct 10, 2017 Time patient seen: 11:15 - am Allergies: Coded Allergies: No Known Allergies (Verified , 05/21/06) Subjective Constitutional: Denies: chills, diaphoresis, fever, malaise, no symptoms, other , Reports: weakness HEENT: Denies: blurred vision, double vision, ear discharge, ear pain, eye pain , mouth pain, mouth swelling, no symptoms, nose congestion, nose pain, other, tearing, throat pain, throat swelling Cardiovascular: Denies: chest pain, edema, irregular heart rate, lightheadedness, no symptoms, other, palpitations, syncope Respiratory: Denies: SOB at rest, SOB with excertion, cough, no symptoms, orthopnea, other, shortness of breath, sputum, stridor, wheezing Gastrointestinal/Abdominal: Denies: abdomen distended, black stools, blood in stool, constipated, diarrhea, difficulty swallowing, nausea, no symptoms, other , poor appetite, poor fluid intake, rectal bleeding, tarry stools, vomiting, Reports: abdominal pain Genitourinary: Denies: burning, discharge, flank pain, frequency, hematuria, incontinence, no symptoms, other, pain, urgency Neurologic/Psychiatric: Denies: anxiety, depressed, emotional problems, headache, no symptoms, numbness, other, paresthesia, pre-existing deficit, seizure, tingling, tremors, weakness Endocrine: Denies: excessive sweating, flushing, increased hunger, increased thirst, increased urine, intolerance to cold, intolerance to heat, no symptoms, other, unexplained weight gain, unexplained weight loss Hematologic/Lymphatic: Denies: anemia, easy bleeding, easy bruising, no symptoms, other Subjective Patient is a known patient from prior admissions and from Dr. Walden office. She has chronic abdominal pain and a intrathecal pump for pain medications. Pt has been admitted under the care fo Dr. Dial due to COPD. Started on Morphine 2mg IV Q4H PRN severe pain using it it has needed. Objective Last 24 Hour Vital Signs Date Time Temp Pulse Resp B/P (MAP) Pulse Ox O2 Delivery O2 Flow Rate FiO2 10/10/17 08:00 Room Air 10/10/17 08:00 98.1 83 19 99/83 100 98.1 10/10/17 06:13 85 96/66 10/10/17 05:52 Room Air 10/10/17 04:00 98.0 73 16 95/57 98 98.0 10/10/17 01:11 Room Air 10/10/17 00:00 98.1 74 21 127/66 92 Room Air 98.1 10/09/17 20:00 98.4 82 19 114/69 92 Room Air 98.4 10/09/17 20:00 Room Air 10/09/17 15:44 98.4 72 20 105/65 96 98.4 10/09/17 13:07 97.8 67 18 106/61 98 Room Air 97.8 10/09/17 12:00 98.1 64 19 99/57 100 98.1 10/09/17 12:00 Room Air Intake and Output 10/09/17 10/10/17 19:00 07:00 Intake Total 240 ml 450.0 ml Balance 240 ml 450.0 ml Intake Oral 240 ml 240 ml IV Total 210.0 ml # Voids 2 2 Laboratory Tests 10/10/17 05:30: White Blood Count 8.4#, Red Blood Count 3.83L, Hemoglobin 11.5L, Hematocrit 35.4L, Mean Corpuscular Volume 93, Mean Corpuscular Hemoglobin 30.0, Mean Corpuscular Hemoglobin Concent 32.3, Red Cell Distribution Width 16.6H, Platelet Count 355, Mean Platelet Volume 7.0, Neutrophils (%) (Auto) 77.1H, Lymphocytes (%) (Auto) 17.3L, Monocytes (%) (Auto) 3.9, Eosinophils (%) (Auto) 1.4, Basophils (%) (Auto) 0.4, Prothrombin Time 11.0, Prothromb Time International Ratio 1.1, Sodium Level 139, Potassium Level 4.2, Chloride Level 106, Carbon Dioxide Level 27, Anion Gap 6, Blood Urea Nitrogen 33H, Creatinine 0.9, Estimat Glomerular Filtration Rate > 60, Glucose Level 82, Calcium Level 8.6, Iron Level 37L, Total Iron Binding Capacity 210L, Percent Iron Saturation 18, Unsaturated Iron Binding 173, Total Bilirubin 0.2, Aspartate Amino Transf ( AST/SGOT) 22, Alanine Aminotransferase (ALT/SGPT) 23, Alkaline Phosphatase 109, Total Protein 7.5, Albumin 2.1L, Globulin 5.4, Albumin/Globulin Ratio 0.4L Height (Feet): 5 Height (Inches): 7.00 Weight (Pounds): 140 Objective General Appearance: no apparent distress, alert EENT: normal ENT inspection, TMs normal Neck: normal alignment, supple Cardiovascular: normal rate, regular rhythm Respiratory/Chest: decreased breath sounds Abdomen: tender, soft Extremities: non-tender Edema: no edema noted Arm (L), no edema noted Arm (R), no edema noted Leg (L), no edema noted Leg (R), no edema noted Pedal (L), no edema noted Pedal (R), no edema noted Generalized Neurologic: alert, oriented x 3 Skin: warm/dry JOSE ARREDONDO Oct 10, 2017 11:37
--- NOTE | 2017-10-10 13:37 | General Surgery Progress Note ---
General Surgery-Progress Note Subjective Symptoms: improved Additional Comments no acute events. leukocytosis resolved. Objective Last 24 Hour Vital Signs Date Time Temp Pulse Resp B/P (MAP) Pulse Ox O2 Delivery O2 Flow Rate FiO2 10/10/17 12:00 98.2 72 20 102/70 100 98.2 10/10/17 08:00 Room Air 10/10/17 08:00 98.1 83 19 99/83 100 98.1 10/10/17 06:13 85 96/66 10/10/17 05:52 Room Air 10/10/17 04:00 98.0 73 16 95/57 98 98.0 10/10/17 01:11 Room Air 10/10/17 00:00 98.1 74 21 127/66 92 Room Air 98.1 10/09/17 20:00 98.4 82 19 114/69 92 Room Air 98.4 10/09/17 20:00 Room Air 10/09/17 15:44 98.4 72 20 105/65 96 98.4 I&O Intake and Output 10/09/17 10/10/17 19:00 07:00 Intake Total 240 ml 450.0 ml Balance 240 ml 450.0 ml Intake Oral 240 ml 240 ml IV Total 210.0 ml # Voids 2 2 Drains: none Cardiovascular: RSR Respiratory: clear Abdomen: soft, distended, non-tender, present bowel sounds Extremities: no tenderness, no cyanosis Laboratory Tests Test 10/10/17 05:30 White Blood Count 8.4 K/UL (4.8-10.8) # Red Blood Count 3.83 M/UL (4.20-5.40) L Hemoglobin 11.5 G/DL (12.0-16.0) L Hematocrit 35.4 % (37.0-47.0) L Mean Corpuscular Volume 93 FL (80-99) Mean Corpuscular Hemoglobin 30.0 PG (27.0-31.0) Mean Corpuscular Hemoglobin Concent 32.3 G/DL (32.0-36.0) Red Cell Distribution Width 16.6 % (11.6-14.8) H Platelet Count 355 K/UL (150-450) Mean Platelet Volume 7.0 FL (6.5-10.1) Neutrophils (%) (Auto) 77.1 % (45.0-75.0) H Lymphocytes (%) (Auto) 17.3 % (20.0-45.0) L Monocytes (%) (Auto) 3.9 % (1.0-10.0) Eosinophils (%) (Auto) 1.4 % (0.0-3.0) Basophils (%) (Auto) 0.4 % (0.0-2.0) Prothrombin Time 11.0 SEC (9.30-11.50) Prothromb Time International Ratio 1.1 (0.9-1.1) Sodium Level 139 MMOL/L (136-145) Potassium Level 4.2 MMOL/L (3.5-5.1) Chloride Level 106 MMOL/L (98-107) Carbon Dioxide Level 27 MMOL/L (21-32) Anion Gap 6 mmol/L (5-15) Blood Urea Nitrogen 33 mg/dL (7-18) H Creatinine 0.9 MG/DL (0.55-1.30) Estimat Glomerular Filtration Rate > 60 mL/min (>60) Glucose Level 82 MG/DL (74-106) Calcium Level 8.6 MG/DL (8.5-10.1) Iron Level 37 ug/dL (50-175) L Total Iron Binding Capacity 210 ug/dL (250-450) L Percent Iron Saturation 18 % (15-50) Unsaturated Iron Binding 173 ug/dL (112-346) Total Bilirubin 0.2 MG/DL (0.2-1.0) Aspartate Amino Transf (AST/SGOT) 22 U/L (15-37) Alanine Aminotransferase (ALT/SGPT) 23 U/L (12-78) Alkaline Phosphatase 109 U/L (46-116) Total Protein 7.5 G/DL (6.4-8.2) Albumin 2.1 G/DL (3.4-5.0) L Globulin 5.4 g/dL Albumin/Globulin Ratio 0.4 (1.0-2.7) L Plan Problems: (1) Abdominal pain Assessment & Plan: 66 year old female with pain everywhere as per her. states has pain pump that is not functional. pain from head to toes. on exam abd soft, non tender, prior incisions well healed, pain pump noted. no rebound, no guarding. CT reviewed and has had fair amount of colon and some sb resections. area of air noted around gallbladder and liver and agree with radiologist that likely collapsed small bowel. they do not particularly appear extraluminal. afebrile, HD stable, abdominal exam benign. leukocytosis resolved. UTI with gram negative rods bacteremia likely etiology. -no acute surgical intervention necessary. -okay for diet -will monitor exam -Abx as per ID thank you for this consultation. will follow with recs. Wolf Quan Oct 10, 2017 13:37
[2017-10-10] MEDS ORDERED: Bisacodyl EC 5mg tab ORAL ONE (14:00)
[2017-10-10] MEDS ORDERED: Polyethylene Glycol 238gm bottle ORAL ONE (16:00)
[2017-10-10] MEDS: D5 1/2NS w/KCl 20mEq 1,000 ML IV SCH (17:03)
[2017-10-10] MEDS ORDERED: Tubing IV Secondary IV ONE (18:47)
[2017-10-10] MEDS ORDERED: Dyna-Hex 2% Top Sol 2oz TOPIC SCH (20:00)
--- NOTE | 2017-10-10 20:15 | Progress Note ---
DATE: 10/10/2017 SUBJECTIVE: The patient is a 66-year-old female patient with COPD. Mood is labile, confused, disorganized, has lot of mood lability, agitation, racing thoughts that is why her attending as requested daily psychiatric consultation. MENTAL STATUS EXAMINATION: The patient is a 66-year-old female with psychomotor agitation. Mood is irritable and agitated. Affect guarded and restricted. Thought process, disorganized and illogical. Denies any suicidal or homicidal thoughts. Insight and judgment is poor. DIAGNOSES: Bipolar 2. PLAN: Treat with Topamax 25 mg twice a day, Cymbalta 30 mg daily, Wellbutrin XL 150 daily, trazodone 150 bedtime. A 20 minutes supportive therapy provided. Chart reviewed and discussed with staff. Seen and assessed at bedside. Mena Goncalves M.D. DR: Marilu JOB#: [id number] CC:
[2017-10-10] MEDS: TraZODone 100mg tab ORAL SCH (21:35)
[2017-10-10] MEDS: Atorvastatin 20mg tab ORAL SCH (21:35)
--- NOTE | 2017-10-10 22:17 | Pulmonology Progress Note ---
Assessment/Plan Problems: (1) Gram-negative bacteremia (2) PNA (pneumonia) (3) IBD (inflammatory bowel disease) (4) Asthma (5) Opioid dependence (6) COPD exacerbation (7) Elevated CEA Assessment/Plan improving clinically, WBC wnl still lots of sputum continue abx taper steroids to 30 QD chest pt symptomatic treatment pain management. Subjective ROS Limited/Unobtainable: No Allergies: Coded Allergies: No Known Allergies (Verified , 05/21/06) Objective Last 24 Hour Vital Signs Date Time Temp Pulse Resp B/P (MAP) Pulse Ox O2 Delivery O2 Flow Rate FiO2 10/10/17 20:16 98.2 78 19 103/65 100 Room Air 98.2 10/10/17 16:00 Room Air 10/10/17 16:00 96.8 70 20 121/79 100 96.8 10/10/17 12:00 98.2 72 20 102/70 100 98.2 10/10/17 12:00 Room Air 10/10/17 08:00 Room Air 10/10/17 08:00 98.1 83 19 99/83 100 98.1 10/10/17 06:13 85 96/66 10/10/17 05:52 Room Air 10/10/17 04:00 98.0 73 16 95/57 98 98.0 10/10/17 01:11 Room Air 10/10/17 00:00 98.1 74 21 127/66 92 Room Air 98.1 Intake and Output 10/09/17 10/10/17 19:00 07:00 Intake Total 240 ml 450.0 ml Balance 240 ml 450.0 ml Intake Oral 240 ml 240 ml IV Total 210.0 ml # Voids 2 2 Objective General Appearance: WD/WN, no apparent distress Lines, tubes and drains: peripheral HEENT: normocephalic, anicteric Neck: non-tender, normal alignment Respiratory/Chest: chest wall non-tender, + rhonchi Cardiovascular/Chest: normal peripheral pulses Abdomen: normal bowel sounds EXt: no C/C/E Microbiology Date/Time Source Procedure Growth Status 10/09/17 00:35 Blood Blood Culture - Preliminary NO GROWTH AFTER 24 HOURS Resulted 10/09/17 00:20 Blood Blood Culture - Preliminary NO GROWTH AFTER 24 HOURS Resulted Laboratory Tests 10/10/17 05:30: White Blood Count 8.4#, Red Blood Count 3.83L, Hemoglobin 11.5L, Hematocrit 35.4L, Mean Corpuscular Volume 93, Mean Corpuscular Hemoglobin 30.0, Mean Corpuscular Hemoglobin Concent 32.3, Red Cell Distribution Width 16.6H, Platelet Count 355, Mean Platelet Volume 7.0, Neutrophils (%) (Auto) 77.1H, Lymphocytes (%) (Auto) 17.3L, Monocytes (%) (Auto) 3.9, Eosinophils (%) (Auto) 1.4, Basophils (%) (Auto) 0.4, Prothrombin Time 11.0, Prothromb Time International Ratio 1.1, Sodium Level 139, Potassium Level 4.2, Chloride Level 106, Carbon Dioxide Level 27, Anion Gap 6, Blood Urea Nitrogen 33H, Creatinine 0.9, Estimat Glomerular Filtration Rate > 60, Glucose Level 82, Calcium Level 8.6, Iron Level 37L, Total Iron Binding Capacity 210L, Percent Iron Saturation 18, Unsaturated Iron Binding 173, Total Bilirubin 0.2, Aspartate Amino Transf ( AST/SGOT) 22, Alanine Aminotransferase (ALT/SGPT) 23, Alkaline Phosphatase 109, Total Protein 7.5, Albumin 2.1L, Globulin 5.4, Albumin/Globulin Ratio 0.4L Current Medications Medications (Trade) Dose Ordered Sig/Vaibhav Route PRN Reason Start Time Stop Time Status Last Admin Dose Admin Albuterol/ Ipratropium (Albuterol/ Ipratropium) 3 ml EVERY 4 HOURS PRN HHN dyspnea 10/08/17 19:34 10/12/17 19:33 Atorvastatin Calcium (Lipitor) 40 mg BEDTIME ORAL 10/08/17 21:00 11/07/17 20:59 10/10/17 21:35 Bupropion HCl (Wellbutrin) 100 mg DAILY ORAL 10/09/17 09:00 11/07/17 08:59 10/10/17 08:43 Chlorhexidine Gluconate (Leah-Hex 2%) 1 applic Q24H TOPIC 10/10/17 00:15 11/09/17 00:14 10/10/17 00:54 Dextrose (Dextrose 50%) STAT PRN IV Hypoglycemia 10/08/17 19:34 11/06/17 19:33 Dextrose/ Electrolytes 1,000 ml @ 75 mls/hr [id number] IV 10/10/17 16:00 11/09/17 15:59 10/10/17 17:03 Duloxetine HCl (Cymbalta) 60 mg DAILY ORAL 10/09/17 09:00 11/07/17 08:59 10/10/17 08:43 Heparin Sodium (Porcine) (Heparin 5000 units/ml) 5,000 units EVERY 12 HOURS SUBQ 10/08/17 21:00 11/07/17 08:59 10/10/17 08:46 Ketorolac Tromethamine (Toradol 30mg) 30 mg EVERY 8 HOURS PRN IV moderate pain 4-6 10/08/17 19:39 10/12/17 19:38 Levetiracetam (Keppra) 1,000 mg Q8HR ORAL 10/09/17 06:00 11/08/17 05:59 10/10/17 15:44 Levothyroxine Sodium (Synthroid) 75 mcg ACBREAKFAST ORAL 10/09/17 06:30 11/07/17 06:29 10/10/17 06:09 Loperamide HCl (Imodium) 2 mg Q4H PRN ORAL Diarrhea 10/08/17 19:35 11/07/17 19:34 Lorazepam (Ativan 2mg/ml 1ml) 0.5 mg Q4H PRN IV For Anxiety 10/08/17 19:35 10/14/17 19:34 Mesalamine (Asacol) 800 mg THREE TIMES A DAY ORAL 10/09/17 09:00 11/07/17 17:59 10/10/17 17:08 Methylprednisolone Sodium Succinate (Solu-MEDROL) 30 mg DAILY IVP 10/10/17 09:00 11/09/17 08:59 10/10/17 08:43 Metronidazole 100 ml @ 100 mls/hr Q8HR IVPB 10/09/17 14:00 10/16/17 13:59 10/10/17 21:38 Morphine Sulfate (Morphine Sulfate) 2 mg EVERY 4 HOURS PRN IVP severe pain 7-10 10/08/17 19:36 10/14/17 19:35 10/09/17 14:16 Nitroglycerin (Ntg) 0.4 mg Q5M X 3 DOSES PRN SL Prn Chest Pain 10/08/17 19:15 11/06/17 22:29 Ondansetron HCl (Zofran) 4 mg Q6H PRN IVP Nausea & Vomiting 10/08/17 19:36 11/06/17 19:35 Piperacillin Sod/ Tazobactam Sod 3.375 gm/Sodium Chloride 110 ml @ 27.5 mls/hr EVERY 8 HOURS IVPB 10/08/17 22:00 10/12/17 05:59 10/10/17 15:44 Promethazine HCl/ Codeine (Phenergan with Codeine) 5 ml EVERY 6 HOURS PRN ORAL cough 10/08/17 19:36 11/07/17 19:35 Temazepam (Restoril) 15 mg HSPRN PRN ORAL Insomnia 10/08/17 19:36 10/14/17 19:35 Theophylline (Erwin-Dur) 100 mg EVERY 12 HOURS ORAL 10/08/17 21:00 11/07/17 08:59 10/10/17 21:34 Topiramate (Topamax) 25 mg Q12HR ORAL 10/09/17 09:00 11/08/17 08:59 10/10/17 21:34 Trazodone HCl (Desyrel) 150 mg BEDTIME ORAL 10/08/17 21:00 11/07/17 20:59 10/10/17 21:35 Rob Wagner MD Oct 10, 2017 22:17
[2017-10-11] VITALS (14 sets, daily range): BP systolic 95–112; BP diastolic 3–74
[2017-10-11] MEDS: D5 1/2NS w/KCl 20mEq 1,000 ML IV SCH ×2 (05:20→17:07)
[2017-10-11] MEDS ORDERED: Magnesium Citrate Liq Btl ORAL ONE (06:15)
[2017-10-11] MEDS ORDERED: Fleet's Enema 133ml RECTAL ONE (06:15)
[2017-10-11] MEDS: Piperacillin/Tazobactam 3.375 GM in NS 110 ML IVPB SCH (06:34)
[2017-10-11] MEDS ORDERED: Propofol 200mg/20ml IV ONE (08:00)
[2017-10-11] MEDS ORDERED: Lidocaine 1% MPF 10mg/ml 5ml ONE (08:00)
[2017-10-11 08:01] LABS: BASOPHILS % (AUTO) 0.8 % (0.0-2.0); EOSINOPHILS % (AUTO) 1.1 % (0.0-3.0); HEMATOCRIT 40.3 % (37.0-47.0); HEMOGLOBIN 12.8 G/DL (12.0-16.0); LYMPHOCYTES % (AUTO) 35.5 % (20.0-45.0); MEAN CORPUSCULAR VOLUME 93 FL (80-99); MONOCYTES % (AUTO) 9.4 % (1.0-10.0); NEUTROPHILS % (AUTO) 53.2 % (45.0-75.0); PLATELET COUNT 348 K/UL (150-450); RED BLOOD COUNT 4.33 M/UL (4.20-5.40); RED CELL DISTRIBUTION WIDTH 16.7 % (11.6-14.8); WHITE BLOOD COUNT 6.9 K/UL (4.8-10.8)
[2017-10-11 08:14] LABS: ANION GAP 8 mmol/L (5-15); BLOOD UREA NITROGEN 26 mg/dL (7-18); CALCIUM 9.4 MG/DL (8.5-10.1); CARBON DIOXIDE 25 MMOL/L (21-32); CHLORIDE 105 MMOL/L (98-107); POTASSIUM 3.3 MMOL/L (3.5-5.1); SODIUM 138 MMOL/L (136-145)
--- NOTE | 2017-10-11 08:33 | General Progress Note ---
Assessment/Plan Assessment/Plan (1) Lumbar spondylosis (2) Chronic abdominal pain (3) Radiculopathy of lumbar region (4) Herniated nucleus pulposus, lumbar (5) Chronic pancreatitis (6) Chronic pain Pt will be continued on Morphine and pt has intrathecal pump. Pt was d/w Dr. Malhotra and he concurred. Subjective Date patient seen: Oct 11, 2017 Time patient seen: 07:00 - am Allergies: Coded Allergies: No Known Allergies (Verified , 05/21/06) Subjective Constitutional: Denies: chills, diaphoresis, fever, malaise, no symptoms, other , Reports: weakness HEENT: Denies: blurred vision, double vision, ear discharge, ear pain, eye pain , mouth pain, mouth swelling, no symptoms, nose congestion, nose pain, other, tearing, throat pain, throat swelling Cardiovascular: Denies: chest pain, edema, irregular heart rate, lightheadedness, no symptoms, other, palpitations, syncope Respiratory: Denies: SOB at rest, SOB with excertion, cough, no symptoms, orthopnea, other, shortness of breath, sputum, stridor, wheezing Gastrointestinal/Abdominal: Denies: abdomen distended, black stools, blood in stool, constipated, diarrhea, difficulty swallowing, nausea, no symptoms, other , poor appetite, poor fluid intake, rectal bleeding, tarry stools, vomiting, Reports: abdominal pain Genitourinary: Denies: burning, discharge, flank pain, frequency, hematuria, incontinence, no symptoms, other, pain, urgency Neurologic/Psychiatric: Denies: anxiety, depressed, emotional problems, headache, no symptoms, numbness, other, paresthesia, pre-existing deficit, seizure, tingling, tremors, weakness Endocrine: Denies: excessive sweating, flushing, increased hunger, increased thirst, increased urine, intolerance to cold, intolerance to heat, no symptoms, other, unexplained weight gain, unexplained weight loss Hematologic/Lymphatic: Denies: anemia, easy bleeding, easy bruising, no symptoms, other Subjective Patient continues to c/o abdominal pain will be going for EGD later this morning. Objective Last 24 Hour Vital Signs Date Time Temp Pulse Resp B/P (MAP) Pulse Ox O2 Delivery O2 Flow Rate FiO2 10/11/17 05:15 79 102/65 10/11/17 04:17 96.8 71 18 96/65 94 Room Air 96.8 10/11/17 01:54 Room Air 10/11/17 00:00 97.4 71 19 112/69 98 97.4 10/10/17 20:16 98.2 78 19 103/65 100 Room Air 98.2 10/10/17 16:00 Room Air 10/10/17 16:00 96.8 70 20 121/79 100 96.8 10/10/17 12:00 98.2 72 20 102/70 100 98.2 10/10/17 12:00 Room Air Intake and Output 10/10/17 10/11/17 19:00 07:00 Intake Total 580 ml 610.0 ml Balance 580 ml 610.0 ml Intake Oral 580 ml IV Total 610.0 ml # Voids 7 2 Laboratory Tests 10/11/17 05:20: White Blood Count 6.9, Red Blood Count 4.33, Hemoglobin 12.8, Hematocrit 40.3, Mean Corpuscular Volume 93, Mean Corpuscular Hemoglobin 29.6, Mean Corpuscular Hemoglobin Concent 31.8L, Red Cell Distribution Width 16.7H, Platelet Count 348 , Mean Platelet Volume 7.0, Neutrophils (%) (Auto) 53.2, Lymphocytes (%) (Auto) 35.5, Monocytes (%) (Auto) 9.4, Eosinophils (%) (Auto) 1.1, Basophils (%) (Auto ) 0.8, Sodium Level 138, Potassium Level 3.3L, Chloride Level 105, Carbon Dioxide Level 25, Anion Gap 8, Blood Urea Nitrogen 26H, Creatinine 1.0, Estimat Glomerular Filtration Rate > 60, Glucose Level 112H, Calcium Level 9.4 Height (Feet): 5 Height (Inches): 7.00 Weight (Pounds): 140 Objective General Appearance: no apparent distress, alert EENT: normal ENT inspection, TMs normal Neck: normal alignment, supple Cardiovascular: normal rate, regular rhythm Respiratory/Chest: decreased breath sounds Abdomen: tender, soft Extremities: non-tender Edema: no edema noted Arm (L), no edema noted Arm (R), no edema noted Leg (L), no edema noted Leg (R), no edema noted Pedal (L), no edema noted Pedal (R), no edema noted Generalized Neurologic: alert, oriented x 3 Skin: warm/dry JOSE ARREDONDO Oct 11, 2017 08:33
[2017-10-11] MEDS: Theophylline ER 100mg ORAL SCH ×2 (09:00→21:10)
[2017-10-11] MEDS: DULoxetine 30mg cap ORAL SCH (09:00)
[2017-10-11] MEDS: Mesalamine 400mg cap ORAL SCH ×3 (09:00→17:07)
[2017-10-11] MEDS: Topiramate 25mg tab ORAL SCH ×2 (09:00→21:10)
[2017-10-11] MEDS: Solu-MEDROL 40mg Inj IVP SCH (09:36)
[2017-10-11] MEDS: Heparin 5000 units/ml inj SUBQ SCH ×2 (09:39→21:18)
--- NOTE | 2017-10-11 11:15 | Progress Note ---
DATE: 10/11/2017 SUBJECTIVE: The patient is a 66-year-old female. She has COPD, but she does have some confusion, disorganized thought process, and depression, so daily psychiatric consultation continued to be requested by her attending physician. MENTAL STATUS EXAMINATION: This is a 66-year-old female with psychomotor retardation. Mood is depressed. Affect guarded and restricted. Thought process, disorganized and illogical. Denies any current suicidal or homicidal thoughts. Insight and judgment is poor. DIAGNOSIS: Bipolar 2. PLAN: Continue titrating up on her psychotropic medications to stabilize her mood. An 18 to 20 minutes of supportive therapy was provided. Encouraged her to interact appropriately with staff and other patients. Chart reviewed and discussed with staff. Seen and assessed at bedside. Mena Goncalves M.D. DR: XIN JOB#: [id number] CC:
--- NOTE | 2017-10-11 11:46 | General Progress Note ---
Assessment/Plan Problem List: (1) History of exploratory laparotomy ICD Codes: Z98.89 - Other specified postprocedural states SNOMED: 32587995, 42773252, 184030376 (2) Smoker ICD Codes: F17.200 - Nicotine dependence, unspecified, uncomplicated SNOMED: 31791817 (3) COPD (chronic obstructive pulmonary disease) ICD Codes: J44.9 - Chronic obstructive pulmonary disease, unspecified SNOMED: 84172159 (4) Opioid dependence ICD Codes: F11.20 - Opioid dependence SNOMED: 73606216 (5) IBD (inflammatory bowel disease) ICD Codes: K63.89 - Other specified diseases of intestine SNOMED: 26736593 (6) Elevated CEA ICD Codes: R97.0 - Elevated CEA SNOMED: 602525847 (7) Crohns disease ICD Codes: K50.90 - Crohns disease SNOMED: 69667106 Assessment/Plan plan EGD and colonoscopy today Subjective ROS Limited/Unobtainable: Yes Allergies: Coded Allergies: No Known Allergies (Verified , 05/21/06) Subjective abd pain no BM Objective Last 24 Hour Vital Signs Date Time Temp Pulse Resp B/P (MAP) Pulse Ox O2 Delivery O2 Flow Rate FiO2 10/11/17 08:00 97.2 81 19 102/69 96 97.2 10/11/17 05:15 79 102/65 10/11/17 04:17 96.8 71 18 96/65 94 Room Air 96.8 10/11/17 01:54 Room Air 10/11/17 00:00 97.4 71 19 112/69 98 97.4 10/10/17 20:16 98.2 78 19 103/65 100 Room Air 98.2 10/10/17 16:00 Room Air 10/10/17 16:00 96.8 70 20 121/79 100 96.8 10/10/17 12:00 98.2 72 20 102/70 100 98.2 10/10/17 12:00 Room Air Intake and Output 10/10/17 10/11/17 19:00 07:00 Intake Total 580 ml 610.0 ml Balance 580 ml 610.0 ml Intake Oral 580 ml IV Total 610.0 ml # Voids 7 2 Laboratory Tests 10/11/17 05:20: White Blood Count 6.9, Red Blood Count 4.33, Hemoglobin 12.8, Hematocrit 40.3, Mean Corpuscular Volume 93, Mean Corpuscular Hemoglobin 29.6, Mean Corpuscular Hemoglobin Concent 31.8L, Red Cell Distribution Width 16.7H, Platelet Count 348 , Mean Platelet Volume 7.0, Neutrophils (%) (Auto) 53.2, Lymphocytes (%) (Auto) 35.5, Monocytes (%) (Auto) 9.4, Eosinophils (%) (Auto) 1.1, Basophils (%) (Auto ) 0.8, Sodium Level 138, Potassium Level 3.3L, Chloride Level 105, Carbon Dioxide Level 25, Anion Gap 8, Blood Urea Nitrogen 26H, Creatinine 1.0, Estimat Glomerular Filtration Rate > 60, Glucose Level 112H, Calcium Level 9.4 Height (Feet): 5 Height (Inches): 7.00 Weight (Pounds): 140 General Appearance: alert EENT: normal ENT inspection Neck: supple Cardiovascular: normal rate Respiratory/Chest: decreased breath sounds Abdomen: normal bowel sounds, non tender, soft Extremities: non-tender LUIS POTTS Oct 11, 2017 11:46
[2017-10-11] MEDS ORDERED: NS 500ML IV ONE (12:20)
--- NOTE | 2017-10-11 12:27 | General Surgery Progress Note ---
General Surgery-Progress Note Subjective Additional Comments no acute events. Objective Last 24 Hour Vital Signs Date Time Temp Pulse Resp B/P (MAP) Pulse Ox O2 Delivery O2 Flow Rate FiO2 10/11/17 08:00 97.2 81 19 102/69 96 97.2 10/11/17 05:15 79 102/65 10/11/17 04:17 96.8 71 18 96/65 94 Room Air 96.8 10/11/17 01:54 Room Air 10/11/17 00:00 97.4 71 19 112/69 98 97.4 10/10/17 20:16 98.2 78 19 103/65 100 Room Air 98.2 10/10/17 16:00 Room Air 10/10/17 16:00 96.8 70 20 121/79 100 96.8 I&O Intake and Output 10/10/17 10/11/17 19:00 07:00 Intake Total 580 ml 610.0 ml Balance 580 ml 610.0 ml Intake Oral 580 ml IV Total 610.0 ml # Voids 7 2 Drains: none Cardiovascular: RSR Respiratory: clear Abdomen: soft, distended, non-tender, present bowel sounds Extremities: no cyanosis Laboratory Tests Test 10/11/17 05:20 White Blood Count 6.9 K/UL (4.8-10.8) Red Blood Count 4.33 M/UL (4.20-5.40) Hemoglobin 12.8 G/DL (12.0-16.0) Hematocrit 40.3 % (37.0-47.0) Mean Corpuscular Volume 93 FL (80-99) Mean Corpuscular Hemoglobin 29.6 PG (27.0-31.0) Mean Corpuscular Hemoglobin Concent 31.8 G/DL (32.0-36.0) L Red Cell Distribution Width 16.7 % (11.6-14.8) H Platelet Count 348 K/UL (150-450) Mean Platelet Volume 7.0 FL (6.5-10.1) Neutrophils (%) (Auto) 53.2 % (45.0-75.0) Lymphocytes (%) (Auto) 35.5 % (20.0-45.0) Monocytes (%) (Auto) 9.4 % (1.0-10.0) Eosinophils (%) (Auto) 1.1 % (0.0-3.0) Basophils (%) (Auto) 0.8 % (0.0-2.0) Sodium Level 138 MMOL/L (136-145) Potassium Level 3.3 MMOL/L (3.5-5.1) L Chloride Level 105 MMOL/L (98-107) Carbon Dioxide Level 25 MMOL/L (21-32) Anion Gap 8 mmol/L (5-15) Blood Urea Nitrogen 26 mg/dL (7-18) H Creatinine 1.0 MG/DL (0.55-1.30) Estimat Glomerular Filtration Rate > 60 mL/min (>60) Glucose Level 112 MG/DL (74-106) H Calcium Level 9.4 MG/DL (8.5-10.1) Plan Problems: (1) Abdominal pain Assessment & Plan: 66 year old female with pain everywhere as per her. states has pain pump that is not functional. pain from head to toes. on exam abd soft, non tender, prior incisions well healed, pain pump noted. no rebound, no guarding. CT reviewed and has had fair amount of colon and some sb resections. area of air noted around gallbladder and liver and agree with radiologist that likely collapsed small bowel. they do not particularly appear extraluminal. afebrile, HD stable, abdominal exam benign. leukocytosis resolved. ENTEROBACTER CLOACAE COMPLEX blood culture. -no acute surgical intervention necessary. -okay for diet -will monitor exam -Abx as per ID thank you for this consultation. will follow with recs. Wolf Quan Oct 11, 2017 12:26
--- NOTE | 2017-10-11 12:54 | Endoscopy Procedure Note ---
Endoscopy Procedure Note General Indication for Procedure: /CROHNS dz Procedures Performed: EGD, colonoscopy Operative Findings/Diagnosis: ESOPHAGITIS, COLO ULCER Specimen: yes Pt Tolerated Procedure Well: Yes Estimated Blood Loss: none Anesthesia Anesthesiologist: chi Anesthesia: MAC Inserted Devices Implant(s) used?: No Quality Quality of Bowel Preparation: Good Did scope reach the cecum?: Yes GI Core Measures 50 yrs or older w/o bx or poly: Not Applicable 10yrs. F/U not recommended: Not Applicable LUIS POTTS Oct 11, 2017 12:54
--- NOTE | 2017-10-11 13:05 | Anethesia Preoperative Eval ---
Anesthesia Pre-op PMH/ROS General Date of Evaluation: Oct 11, 2017 Time of Evaluation: 12:08 Anesthesiologist: martin ASA Score: ASA 3 Mallampati Score Class I : Soft palate, uvula, fauces, pillars visible Class II: Soft palate, uvula, fauces visible Class III: Soft palate, base of uvula visible Class IV: Only hard plate visible Mallampati Classification: Class II Surgeon: gibson Diagnosis: abdominal pain Surgical Procedure: egd/colonoscopy Anesthesia History: none Social History: smoking Family History: no anesthesia problems Allergies: Coded Allergies: No Known Allergies (Verified , 05/21/06) Medications: see eMAR Past Medical History Cardiovascular: Reports: CAD, [place], other - chf Pulmonary: Reports: asthma, COPD Gastrointestinal/Genitourinary: Reports: other - crohn's disease Neurologic/Psychiatric: Reports: CVA, other - seizure disorder, Anesthesia Pre-op Phys. Exam Physician Exam Last Vital Signs Date Time Temp Pulse Resp B/P (MAP) Pulse Ox O2 Delivery O2 Flow Rate FiO2 10/11/17 12:00 97.3 83 18 106/70 99 97.3 10/11/17 04:17 Room Air 10/07/17 16:17 21 10/07/17 16:00 10.0 Constitutional: NAD Neurologic: CN 2-12 intact Cardiovascular: RRR Respiratory: CTA Gastrointestinal: S/NT/ND Airway Exam Mallampati Score: Class II MO: full Neck: supple TMD: 2fb ROM: limited Anesthesia Pre-op A/P Labs Hematology Test 10/11/17 05:20 White Blood Count 6.9 K/UL (4.8-10.8) Red Blood Count 4.33 M/UL (4.20-5.40) Hemoglobin 12.8 G/DL (12.0-16.0) Hematocrit 40.3 % (37.0-47.0) Mean Corpuscular Volume 93 FL (80-99) Mean Corpuscular Hemoglobin 29.6 PG (27.0-31.0) Mean Corpuscular Hemoglobin Concent 31.8 G/DL (32.0-36.0) L Red Cell Distribution Width 16.7 % (11.6-14.8) H Platelet Count 348 K/UL (150-450) Mean Platelet Volume 7.0 FL (6.5-10.1) Neutrophils (%) (Auto) 53.2 % (45.0-75.0) Lymphocytes (%) (Auto) 35.5 % (20.0-45.0) Monocytes (%) (Auto) 9.4 % (1.0-10.0) Eosinophils (%) (Auto) 1.1 % (0.0-3.0) Basophils (%) (Auto) 0.8 % (0.0-2.0) Chemistry Test 10/11/17 05:20 Sodium Level 138 MMOL/L (136-145) Potassium Level 3.3 MMOL/L (3.5-5.1) L Chloride Level 105 MMOL/L (98-107) Carbon Dioxide Level 25 MMOL/L (21-32) Anion Gap 8 mmol/L (5-15) Blood Urea Nitrogen 26 mg/dL (7-18) H Creatinine 1.0 MG/DL (0.55-1.30) Estimat Glomerular Filtration Rate > 60 mL/min (>60) Glucose Level 112 MG/DL (74-106) H Calcium Level 9.4 MG/DL (8.5-10.1) Risk Assessment & Plan Assessment: asa3 Plan: mac Status Change Before Surgery: No Pre-Antibiotics Drug: MAURILIO Doe Oct 11, 2017 13:05
--- NOTE | 2017-10-11 13:27 | Immediate Post-Op Evaluation ---
Immediate Post-Op Evalulation Immediate Post-Op Evalulation Procedure: egd/colonoscopy Date of Evaluation: Oct 11, 2017 Time of Evaluation: 13:18 IV Fluids: 300ml 0.9ns Blood Products: none Estimated Blood Loss: negligible Blood Pressure Systolic: 105 Blood Pressure Diastolic: 72 Pulse Rate: 66 Respiratory Rate: 18 O2 Sat by Pulse Oximetry: 99 Temperature (Fahrenheit): 98.2 Pain Score (1-10): 0 Nausea: No Vomiting: No Complications none Patient Status: awake, reacts, patent Hydration Status: adequate Drug: MAURILIO Doe Oct 11, 2017 13:27
--- NOTE | 2017-10-11 13:28 | 48 Hour Post Anesthesia Eval ---
Post Anesthesia Evaluation Procedure: egd/colonoscopy Date of Evaluation: Oct 11, 2017 Time of Evaluation: 13:27 Blood Pressure Systolic: 106 0: 70 Pulse Rate: 70 Respiratory Rate: 18 Temperature (Fahrenheit): 98.2 O2 Sat by Pulse Oximetry: 100 Airway: patent Nausea: No Vomiting: No Pain Intensity: 0 Hydration Status: adequate Cardiopulmonary Status: stable Mental Status/LOC: patient returned to baseline Post-Anesthesia Complications: none Follow-up care needed: N/A MAURILIO AGUIRRE Oct 11, 2017 13:28
[2017-10-11] MEDS ORDERED: fentaNYL 100 mcg/2 mL IV PRN (13:30)
[2017-10-11] MEDS ORDERED: Atropine Inj 1mg/10ml Syr IV PRN (13:30)
[2017-10-11] MEDS ORDERED: DiphenhydrAMINE 50mg/ml Inj IVP PRN (13:30)
[2017-10-11] MEDS ORDERED: Midazolam 2mg/2ml Inj IVP PRN (13:30)
--- NOTE | 2017-10-11 13:31 | Infectious Diseases Prog Note ---
Assessment/Plan Assessment/Plan Sepsis , improving Persistent Gram negative bacteremia- likely from GI source- r/o Crohn's flare, colitis, - r/o PICC line infection -10/07 Bcx / Enterobacter cloacae complex (R ancef, otherwise S); 10/09 Bcx 1/ 4 GNRs --s/p PICC line removal 10/10, cath tip cx p -s/p EGD/Colonoscopy 10/11: ESOPHAGITIS, COLON ULCER -CT abd/p w/: Limited assessment of the GI tract, due to lack of enteric contrast administration. Evidence of extensive prior bowel surgery, with evidence of resection of much of the colon, enterocolic and entero-enteral anastomoses. Dilated right upper quadrant small bowel loops. Most likely on the basis of disordered motility related to the prior surgery, particularly given similarity to the previous exam. However, given evidence of nondilated small bowel loops elsewhere, the possibility of small bowel obstruction should be considered. Gas bubbles adjacent to the gallbladder fossa. Probably within collapsed adjacent small bowel, but the possibility that these represent extraluminal gas bubbles and which would therefore indicate bowel perforation should also be considered. Considerable fluid within the residual colon. Per discussion with referring physician, patient has recent history of diarrhea. Findings are certainly concordant with that. Subcentimeter low-attenuation renal lesions, too small to characterize, most likely benign simple cysts. Right posterior 11th rib fracture, appears acute. Bilateral basilar pulmonary fibrotic changes, also previously demonstrated Leukocytosis ( on steroids ) -resolved -afebrile -CXR 10/07: Mild interstitial prominence, similar to the previous study and likely reflecting fibrotic changes demonstrated on a CT scan of December 2013. No definite acute infiltrate; sp cx NTD -u/a WBC 5-10, nit neg, leuk +1 Hx of Cdiff -Cdiff 10/07 neg Crohn's disease w/ multiple abd surgeries COPD/asthma on B-12 injections via PICC line CAD/[place] chronic pain syndrome on morphine pump CVA 2004 seizure disorder Plan: -Switch Zosyn d # 4 to Ceftriaxone 2 g daily for enterobacter bacteremia and IV Flagyl d# 3 (switch to PO) for anaerobic coverage SP oral Vanco d# 2 -Repeat 2 sets of Bcx- if persistent bacteremia after PICC line removal then will need to obtain MRI lumbar spine to r/o intrathecal abscess- at current low suspicion as contrast CT abd/p did not showed abnormality in that area -if MRI done, will need [employer] tech to come after and reset pump -duration of abx will be guided by repeat Bcx; upon discharge a PO regimen with Cipro and Flagyl can be done -f/u cx -Monitor CBC/BMP, temperatures -appreciate GI and surgery input Subjective Allergies: Coded Allergies: No Known Allergies (Verified , 05/21/06) Objective Vital Signs Last 24 Hour Vital Signs Date Time Temp Pulse Resp B/P (MAP) Pulse Ox O2 Delivery O2 Flow Rate FiO2 10/11/17 12:00 97.3 83 18 106/70 99 97.3 10/11/17 08:00 97.2 81 19 102/69 96 97.2 10/11/17 05:15 79 102/65 10/11/17 04:17 96.8 71 18 96/65 94 Room Air 96.8 10/11/17 01:54 Room Air 10/11/17 00:00 97.4 71 19 112/69 98 97.4 10/10/17 20:16 98.2 78 19 103/65 100 Room Air 98.2 10/10/17 16:00 Room Air 10/10/17 16:00 96.8 70 20 121/79 100 96.8 Height (Feet): 5 Height (Inches): 7.00 Weight (Pounds): 140 Objective General Appearance: alert, mild distress HEENT: normocephalic, normal pharynx,moist mucus membranes Neck: normal inspection, full range of motion, supple Respiratory: respiratory distress, speaking full sentences, wheezing, expiration Cardiovascular : normal inspection, regular rate, rhythm, normal capillary refill Gastrointestinal: other - Morphine pump palpated in abdomen, well-healed surgical scars on abdomen, abdomen is slightly distended, generalized tenderness , normal bowel sounds Musculoskeletal: normal inspection, back normal, normal range of motion, non- tender Neurologic: normal inspection, alert, oriented x3, responsive, motor strength/ tone normal, sensory intact, normal gait, speech normal Skin: normal inspection, normal color, no rash, warm/dry, well hydrated, normal turgor Microbiology Date/Time Source Procedure Growth Status 10/09/17 00:35 Blood Blood Culture - Preliminary Resulted 10/09/17 00:20 Blood Blood Culture - Preliminary NO GROWTH AFTER 48 HOURS Resulted 10/09/17 21:39 Sputum Gram Stain Pending Resulted 10/09/17 21:39 Sputum Sputum Culture - Preliminary NO GROWTH Resulted Laboratory Tests Test 10/11/17 05:20 White Blood Count 6.9 K/UL (4.8-10.8) Red Blood Count 4.33 M/UL (4.20-5.40) Hemoglobin 12.8 G/DL (12.0-16.0) Hematocrit 40.3 % (37.0-47.0) Mean Corpuscular Volume 93 FL (80-99) Mean Corpuscular Hemoglobin 29.6 PG (27.0-31.0) Mean Corpuscular Hemoglobin Concent 31.8 G/DL (32.0-36.0) L Red Cell Distribution Width 16.7 % (11.6-14.8) H Platelet Count 348 K/UL (150-450) Mean Platelet Volume 7.0 FL (6.5-10.1) Neutrophils (%) (Auto) 53.2 % (45.0-75.0) Lymphocytes (%) (Auto) 35.5 % (20.0-45.0) Monocytes (%) (Auto) 9.4 % (1.0-10.0) Eosinophils (%) (Auto) 1.1 % (0.0-3.0) Basophils (%) (Auto) 0.8 % (0.0-2.0) Sodium Level 138 MMOL/L (136-145) Potassium Level 3.3 MMOL/L (3.5-5.1) L Chloride Level 105 MMOL/L (98-107) Carbon Dioxide Level 25 MMOL/L (21-32) Anion Gap 8 mmol/L (5-15) Blood Urea Nitrogen 26 mg/dL (7-18) H Creatinine 1.0 MG/DL (0.55-1.30) Estimat Glomerular Filtration Rate > 60 mL/min (>60) Glucose Level 112 MG/DL (74-106) H Calcium Level 9.4 MG/DL (8.5-10.1) Current Medications Medications (Trade) Dose Ordered Sig/Vaibhav Route PRN Reason Start Time Stop Time Status Last Admin Dose Admin Albuterol/ Ipratropium (Albuterol/ Ipratropium) 3 ml EVERY 4 HOURS PRN HHN dyspnea 10/08/17 19:34 10/12/17 19:33 Atorvastatin Calcium (Lipitor) 40 mg BEDTIME ORAL 10/08/17 21:00 11/07/17 20:59 10/10/17 21:35 Bupropion HCl (Wellbutrin) 100 mg DAILY ORAL 10/09/17 09:00 11/07/17 08:59 10/10/17 08:43 Chlorhexidine Gluconate (Leah-Hex 2%) 1 applic Q24H TOPIC 10/10/17 00:15 11/09/17 00:14 10/10/17 00:54 Dextrose (Dextrose 50%) STAT PRN IV Hypoglycemia 10/08/17 19:34 11/06/17 19:33 Dextrose/ Electrolytes 1,000 ml @ 75 mls/hr [id number] IV 10/10/17 16:00 11/09/17 15:59 10/10/17 17:03 Duloxetine HCl (Cymbalta) 60 mg DAILY ORAL 10/09/17 09:00 11/07/17 08:59 10/10/17 08:43 Heparin Sodium (Porcine) (Heparin 5000 units/ml) 5,000 units EVERY 12 HOURS SUBQ 10/08/17 21:00 11/07/17 08:59 10/11/17 09:39 Ketorolac Tromethamine (Toradol 30mg) 30 mg EVERY 8 HOURS PRN IV moderate pain 4-6 10/08/17 19:39 10/12/17 19:38 Levetiracetam (Keppra) 1,000 mg Q8HR ORAL 10/09/17 06:00 11/08/17 05:59 10/11/17 06:15 Levothyroxine Sodium (Synthroid) 75 mcg ACBREAKFAST ORAL 10/09/17 06:30 11/07/17 06:29 10/11/17 06:15 Loperamide HCl (Imodium) 2 mg Q4H PRN ORAL Diarrhea 10/08/17 19:35 11/07/17 19:34 Lorazepam (Ativan 2mg/ml 1ml) 0.5 mg Q4H PRN IV For Anxiety 10/08/17 19:35 10/14/17 19:34 Mesalamine (Asacol) 800 mg THREE TIMES A DAY ORAL 10/09/17 09:00 11/07/17 17:59 10/10/17 17:08 Methylprednisolone Sodium Succinate (Solu-MEDROL) 30 mg DAILY IVP 10/10/17 09:00 11/09/17 08:59 10/11/17 09:36 Metronidazole 100 ml @ 100 mls/hr Q8HR IVPB 10/09/17 14:00 10/16/17 13:59 10/11/17 05:21 Morphine Sulfate (Morphine Sulfate) 2 mg EVERY 4 HOURS PRN IVP severe pain 7-10 10/08/17 19:36 10/14/17 19:35 10/09/17 14:16 Nitroglycerin (Ntg) 0.4 mg Q5M X 3 DOSES PRN SL Prn Chest Pain 10/08/17 19:15 11/06/17 22:29 Ondansetron HCl (Zofran) 4 mg Q6H PRN IVP Nausea & Vomiting 10/08/17 19:36 11/06/17 19:35 Piperacillin Sod/ Tazobactam Sod 3.375 gm/Sodium Chloride 110 ml @ 27.5 mls/hr EVERY 8 HOURS IVPB 10/08/17 22:00 10/12/17 05:59 10/11/17 06:34 Potassium Chloride (K-Dur) 20 meq ONCE ONCE ORAL 10/11/17 15:00 10/11/17 15:01 Promethazine HCl/ Codeine (Phenergan with Codeine) 5 ml EVERY 6 HOURS PRN ORAL cough 10/08/17 19:36 11/07/17 19:35 Temazepam (Restoril) 15 mg HSPRN PRN ORAL Insomnia 10/08/17 19:36 10/14/17 19:35 Theophylline (Erwin-Dur) 100 mg EVERY 12 HOURS ORAL 10/08/17 21:00 11/07/17 08:59 10/10/17 21:34 Topiramate (Topamax) 25 mg Q12HR ORAL 10/09/17 09:00 11/08/17 08:59 10/10/17 21:34 Trazodone HCl (Desyrel) 150 mg BEDTIME ORAL 10/08/17 21:00 11/07/17 20:59 10/10/17 21:35 Kathleen Lafleur M.D. Oct 11, 2017 13:31
[2017-10-11] MEDS: metroNIDAZOLE 500mg tab ORAL SCH ×2 (14:24→21:10)
[2017-10-11] MEDS: cefTRIAXone 2 GM in NS 55 ML IVPB SCH (14:29)
--- NOTE | 2017-10-11 14:46 | General Progress Note ---
Assessment/Plan Problem List: (1) Opioid dependence ICD Codes: F11.20 - Opioid dependence SNOMED: 71501938 (2) COPD (chronic obstructive pulmonary disease) ICD Codes: J44.9 - Chronic obstructive pulmonary disease, unspecified SNOMED: 86716578 (3) Crohns disease ICD Codes: K50.90 - Crohns disease SNOMED: 40736927 (4) Diarrhea ICD Codes: R19.7 - Diarrhea, unspecified SNOMED: 20316897 (5) Shortness of breath (6) Anemia (7) Small bowel obstruction ICD Codes: K56.609 - Unspecified intestinal obstruction, unspecified as to partial versus complete obstruction SNOMED: 775136954 (8) Dyspnea (9) Chronic pain ICD Codes: G89.29 - Other chronic pain SNOMED: 57795677 (10) Abdominal pain Qualifiers: Qualified Codes: R10.84 - Generalized abdominal pain Status: stable, progressing, tolerating diet Assessment/Plan o2 pulm tx abx gi sx f/u dc if clear Subjective Constitutional: Reports: weakness Allergies: Coded Allergies: No Known Allergies (Verified , 05/21/06) All Systems: reviewed and negative except above Subjective sleepy calm in bed Objective Last 24 Hour Vital Signs Date Time Temp Pulse Resp B/P (MAP) Pulse Ox O2 Delivery O2 Flow Rate FiO2 10/11/17 13:55 98.6 76 15 103/69 100 Nasal Cannula 3.0 98.6 10/11/17 13:40 77 16 103/3 99 Nasal Cannula 3.0 10/11/17 13:28 208.8 70 18 100 10/11/17 13:27 208.8 66 18 99 10/11/17 13:25 74 14 104/70 99 Nasal Cannula 3.0 10/11/17 13:15 71 15 106/73 99 Nasal Cannula 3.0 10/11/17 13:10 68 13 108/74 99 Nasal Cannula 3.0 10/11/17 13:06 98.2 67 19 102/72 99 Nasal Cannula 3.0 98.2 10/11/17 12:00 97.3 83 18 106/70 99 97.3 10/11/17 08:00 97.2 81 19 102/69 96 97.2 10/11/17 05:15 79 102/65 10/11/17 04:17 96.8 71 18 96/65 94 Room Air 96.8 10/11/17 01:54 Room Air 10/11/17 00:00 97.4 71 19 112/69 98 97.4 10/10/17 20:16 98.2 78 19 103/65 100 Room Air 98.2 10/10/17 16:00 Room Air 10/10/17 16:00 96.8 70 20 121/79 100 96.8 Intake and Output 10/10/17 10/11/17 19:00 07:00 Intake Total 580 ml 610.0 ml Balance 580 ml 610.0 ml Intake Oral 580 ml IV Total 610.0 ml # Voids 7 2 Laboratory Tests 10/11/17 05:20: White Blood Count 6.9, Red Blood Count 4.33, Hemoglobin 12.8, Hematocrit 40.3, Mean Corpuscular Volume 93, Mean Corpuscular Hemoglobin 29.6, Mean Corpuscular Hemoglobin Concent 31.8L, Red Cell Distribution Width 16.7H, Platelet Count 348 , Mean Platelet Volume 7.0, Neutrophils (%) (Auto) 53.2, Lymphocytes (%) (Auto) 35.5, Monocytes (%) (Auto) 9.4, Eosinophils (%) (Auto) 1.1, Basophils (%) (Auto ) 0.8, Sodium Level 138, Potassium Level 3.3L, Chloride Level 105, Carbon Dioxide Level 25, Anion Gap 8, Blood Urea Nitrogen 26H, Creatinine 1.0, Estimat Glomerular Filtration Rate > 60, Glucose Level 112H, Calcium Level 9.4 Height (Feet): 5 Height (Inches): 7.00 Weight (Pounds): 140 General Appearance: alert EENT: normal ENT inspection Neck: normal alignment Cardiovascular: normal peripheral pulses, normal rate, regular rhythm Respiratory/Chest: chest wall non-tender, lungs clear, normal breath sounds Abdomen: normal bowel sounds, non tender, soft Extremities: normal inspection Edema: no edema noted Arm (L), no edema noted Arm (R), no edema noted Leg (L), no edema noted Leg (R), no edema noted Pedal (L), no edema noted Pedal (R), no edema noted Generalized Neurologic: responsive, motor weakness Skin: normal pigmentation, warm/dry BAYRON BENEDICT Oct 11, 2017 14:46
--- NOTE | 2017-10-11 17:15 | Procedure Note ---
DATE OF PROCEDURE: 10/11/2017 SURGEON: Skyler Gallegos M.D. ANESTHESIOLOGIST: Dr. Dickinson. REFERRING PHYSICIAN: Barber Dial D.O. PROCEDURE: Upper endoscopy with biopsy and colonoscopy with biopsy. ANESTHESIA: Per Dr. Dickinson. INSTRUMENT: Olympus adult flexible upper endoscope and colonoscope. INDICATION: Crohn disease, abdominal pain. The procedure, risks, benefits, and possible consequences, including hemorrhage, aspiration, perforation and infection, and alternative treatments, were explained to the patient/legal guardian by Dr. Skyler Gallegos and the patient/legal guardian understood and accepted these risks. DESCRIPTION OF PROCEDURE: After informed consent was obtained and the patient was adequately sedated, Olympus upper endoscope was advanced from the mouth into the second portion of the duodenum and retroflexion was performed in the stomach. The patient had evidence of diffuse gastritis. No biopsy was obtained because the patient had biopsies before. The patient had also evidence of small hiatal hernia. In the esophagus, there were some white patches suspicious for Aggie esophagitis which was brush-biopsied. At this time, the upper endoscope was retrieved. The patient was turned over for colonoscopy. First, rectal exam was performed which was normal. Then, the scope was advanced from the rectum into the anastomosis and ileum or small intestine. Quality of prep was good. The patient had a very short segment of the colon left. There was one ulcer at the anastomosis roughly measuring about 1 cm clean-based ulcer which was biopsied. Most probably, either anastomotic ulcer versus flare of Crohn's. Doubt it was Crohn's flare because the rest of the terminal ileum when we looked at it, it looked okay. The patient tolerated the procedure very well without any complication. SUMMARY OF FINDINGS: 1. Possible Aggie esophagitis, status post brush biopsy. 2. Gastritis. 3. Small hiatal hernia. 4. Short segment of colon left. 5. A 1-cm anastomotic ulcer, status post biopsy. RECOMMENDATIONS: Follow brush biopsy results and treat for Aggie if it is positive. Resume diet. Resume medications. Consider doing outpatient capsule endoscopy to look at the rest of the small intestine before changing medication around. I want to thank, Dr. Barber Dial, for this kind referral. Skyler Sadia Gallegos DR: Cezar JOB#: [id number] CC: Barber Dial D.O.
[2017-10-11] MEDS: TraZODone 100mg tab ORAL SCH (21:09)
[2017-10-11] MEDS: Atorvastatin 20mg tab ORAL SCH (21:09)
--- NOTE | 2017-10-11 22:22 | Pulmonology Progress Note ---
Assessment/Plan Problems: (1) Gram-negative bacteremia (2) PNA (pneumonia) (3) IBD (inflammatory bowel disease) (4) Asthma (5) Opioid dependence (6) COPD exacerbation (7) Elevated CEA Assessment/Plan improving clinically, WBC wnl still lots of sputum continue abx dc steroids chest pt symptomatic treatment pain management. dc planning Subjective ROS Limited/Unobtainable: No Constitutional: Reports: no symptoms HEENT: Repors: no symptoms Allergies: Coded Allergies: No Known Allergies (Verified , 05/21/06) Objective Last 24 Hour Vital Signs Date Time Temp Pulse Resp B/P (MAP) Pulse Ox O2 Delivery O2 Flow Rate FiO2 10/11/17 21:00 96.8 70 20 103/67 96 Room Air 96.8 10/11/17 20:02 96.8 70 20 95/69 95 Room Air 96.8 10/11/17 15:54 97.9 78 19 104/68 99 97.9 10/11/17 13:55 98.6 76 15 103/69 100 Nasal Cannula 3.0 98.6 10/11/17 13:40 77 16 103/62 99 Nasal Cannula 3.0 10/11/17 13:28 208.8 70 18 100 10/11/17 13:27 208.8 66 18 99 10/11/17 13:25 74 14 104/70 99 Nasal Cannula 3.0 10/11/17 13:15 71 15 106/73 99 Nasal Cannula 3.0 10/11/17 13:10 68 13 108/74 99 Nasal Cannula 3.0 10/11/17 13:06 98.2 67 19 102/72 99 Nasal Cannula 3.0 98.2 10/11/17 12:00 97.3 83 18 106/70 99 97.3 10/11/17 08:00 97.2 81 19 102/69 96 97.2 10/11/17 05:15 79 102/65 10/11/17 04:17 96.8 71 18 96/65 94 Room Air 96.8 10/11/17 01:54 Room Air 10/11/17 00:00 97.4 71 19 112/69 98 97.4 Intake and Output 10/10/17 10/11/17 19:00 07:00 Intake Total 580 ml 610.0 ml Balance 580 ml 610.0 ml Intake Oral 580 ml IV Total 610.0 ml # Voids 7 2 Objective General Appearance: WD/WN, no apparent distress Lines, tubes and drains: peripheral HEENT: normocephalic, anicteric Neck: non-tender, normal alignment Respiratory/Chest: chest wall non-tender, + rhonchi Cardiovascular/Chest: normal peripheral pulses Abdomen: normal bowel sounds EXt: no C/C/E Microbiology Date/Time Source Procedure Growth Status 10/09/17 00:35 Blood Blood Culture - Preliminary Resulted 10/09/17 00:20 Blood Blood Culture - Preliminary NO GROWTH AFTER 48 HOURS Resulted 10/09/17 21:39 Sputum Gram Stain - Final Resulted 10/09/17 21:39 Sputum Sputum Culture - Preliminary NO GROWTH Resulted Laboratory Tests 10/11/17 05:20: White Blood Count 6.9, Red Blood Count 4.33, Hemoglobin 12.8, Hematocrit 40.3, Mean Corpuscular Volume 93, Mean Corpuscular Hemoglobin 29.6, Mean Corpuscular Hemoglobin Concent 31.8L, Red Cell Distribution Width 16.7H, Platelet Count 348 , Mean Platelet Volume 7.0, Neutrophils (%) (Auto) 53.2, Lymphocytes (%) (Auto) 35.5, Monocytes (%) (Auto) 9.4, Eosinophils (%) (Auto) 1.1, Basophils (%) (Auto ) 0.8, Sodium Level 138, Potassium Level 3.3L, Chloride Level 105, Carbon Dioxide Level 25, Anion Gap 8, Blood Urea Nitrogen 26H, Creatinine 1.0, Estimat Glomerular Filtration Rate > 60, Glucose Level 112H, Calcium Level 9.4 Current Medications Medications (Trade) Dose Ordered Sig/Vaibhav Route PRN Reason Start Time Stop Time Status Last Admin Dose Admin Albuterol/ Ipratropium (Albuterol/ Ipratropium) 3 ml EVERY 4 HOURS PRN HHN dyspnea 10/08/17 19:34 10/12/17 19:33 Atorvastatin Calcium (Lipitor) 40 mg BEDTIME ORAL 10/08/17 21:00 11/07/17 20:59 10/11/17 21:09 Bupropion HCl (Wellbutrin) 100 mg DAILY ORAL 10/09/17 09:00 11/07/17 08:59 10/10/17 08:43 Ceftriaxone Sodium 2 gm/ Sodium Chloride 55 ml @ 110 mls/hr Q24H IVPB 10/11/17 14:30 10/18/17 14:29 10/11/17 14:29 Chlorhexidine Gluconate (Leah-Hex 2%) 1 applic Q24H TOPIC 10/10/17 00:15 11/09/17 00:14 10/10/17 00:54 Dextrose (Dextrose 50%) STAT PRN IV Hypoglycemia 10/08/17 19:34 11/06/17 19:33 Dextrose/ Electrolytes 1,000 ml @ 75 mls/hr [id number] IV 10/10/17 16:00 11/09/17 15:59 10/11/17 17:07 Duloxetine HCl (Cymbalta) 60 mg DAILY ORAL 10/09/17 09:00 11/07/17 08:59 10/10/17 08:43 Fluconazole (Diflucan) 200 mg Q24H ORAL 10/12/17 18:00 10/19/17 17:59 Heparin Sodium (Porcine) (Heparin 5000 units/ml) 5,000 units EVERY 12 HOURS SUBQ 10/08/17 21:00 11/07/17 08:59 10/11/17 21:18 Ketorolac Tromethamine (Toradol 30mg) 30 mg EVERY 8 HOURS PRN IV moderate pain 4-6 10/08/17 19:39 10/12/17 19:38 Levetiracetam (Keppra) 1,000 mg Q8HR ORAL 10/09/17 06:00 11/08/17 05:59 10/11/17 21:10 Levothyroxine Sodium (Synthroid) 75 mcg ACBREAKFAST ORAL 10/09/17 06:30 11/07/17 06:29 10/11/17 06:15 Loperamide HCl (Imodium) 2 mg Q4H PRN ORAL Diarrhea 10/08/17 19:35 11/07/17 19:34 Lorazepam (Ativan 2mg/ml 1ml) 0.5 mg Q4H PRN IV For Anxiety 10/08/17 19:35 10/14/17 19:34 Mesalamine (Asacol) 800 mg THREE TIMES A DAY ORAL 10/09/17 09:00 11/07/17 17:59 10/11/17 17:07 Methylprednisolone Sodium Succinate (Solu-MEDROL) 30 mg DAILY IVP 10/10/17 09:00 11/09/17 08:59 10/11/17 09:36 Metronidazole (Flagyl) 500 mg Q8HR ORAL 10/11/17 14:00 10/18/17 13:59 10/11/17 21:10 Morphine Sulfate (Morphine Sulfate) 2 mg EVERY 4 HOURS PRN IVP severe pain 7-10 10/08/17 19:36 10/14/17 19:35 10/09/17 14:16 Nitroglycerin (Ntg) 0.4 mg Q5M X 3 DOSES PRN SL Prn Chest Pain 10/08/17 19:15 11/06/17 22:29 Ondansetron HCl (Zofran) 4 mg Q6H PRN IVP Nausea & Vomiting 10/08/17 19:36 11/06/17 19:35 Promethazine HCl/ Codeine (Phenergan with Codeine) 5 ml EVERY 6 HOURS PRN ORAL cough 10/08/17 19:36 11/07/17 19:35 Temazepam (Restoril) 15 mg HSPRN PRN ORAL Insomnia 10/08/17 19:36 10/14/17 19:35 10/11/17 21:10 Theophylline (Erwin-Dur) 100 mg EVERY 12 HOURS ORAL 10/08/17 21:00 11/07/17 08:59 10/11/17 21:10 Topiramate (Topamax) 25 mg Q12HR ORAL 10/09/17 09:00 11/08/17 08:59 10/11/17 21:10 Trazodone HCl (Desyrel) 150 mg BEDTIME ORAL 10/08/17 21:00 11/07/17 20:59 10/11/17 21:09 Rob Wagner MD Oct 11, 2017 22:22
[2017-10-12] MEDS: Dyna-Hex 2% Top Sol 2oz TOPIC SCH ×2 (00:15→23:23)
[2017-10-12 00:16] VITALS: BP 104/70
[2017-10-12 04:30] VITALS: BP 132/83
[2017-10-12] MEDS: metroNIDAZOLE 500mg tab ORAL SCH ×3 (05:16→22:33)
[2017-10-12 07:39] LABS: BASOPHILS % (AUTO) 0.4 % (0.0-2.0); EOSINOPHILS % (AUTO) 0.7 % (0.0-3.0); HEMATOCRIT 41.2 % (37.0-47.0); HEMOGLOBIN 13.2 G/DL (12.0-16.0); LYMPHOCYTES % (AUTO) 23.9 % (20.0-45.0); MEAN CORPUSCULAR VOLUME 94 FL (80-99); MONOCYTES % (AUTO) 10.1 % (1.0-10.0); PLATELET COUNT 398 K/UL (150-450); RED CELL DISTRIBUTION WIDTH 16.2 % (11.6-14.8); WHITE BLOOD COUNT 9.2 K/UL (4.8-10.8)
[2017-10-12 08:00] VITALS: BP 103/61
--- NOTE | 2017-10-12 08:45 | General Progress Note ---
Assessment/Plan Assessment/Plan (1) Lumbar spondylosis (2) Chronic abdominal pain (3) Radiculopathy of lumbar region (4) Herniated nucleus pulposus, lumbar (5) Chronic pancreatitis (6) Chronic pain Pt will be continued on Morphine and pt has intrathecal pump. Pt was d/w Dr. Malhotra and he concurred. Subjective Date patient seen: Oct 12, 2017 Time patient seen: 07:15 - am Allergies: Coded Allergies: No Known Allergies (Verified , 05/21/06) Subjective Constitutional: Denies: chills, diaphoresis, fever, malaise, no symptoms, other , Reports: weakness HEENT: Denies: blurred vision, double vision, ear discharge, ear pain, eye pain , mouth pain, mouth swelling, no symptoms, nose congestion, nose pain, other, tearing, throat pain, throat swelling Cardiovascular: Denies: chest pain, edema, irregular heart rate, lightheadedness, no symptoms, other, palpitations, syncope Respiratory: Denies: SOB at rest, SOB with excertion, cough, no symptoms, orthopnea, other, shortness of breath, sputum, stridor, wheezing Gastrointestinal/Abdominal: Denies: abdomen distended, black stools, blood in stool, constipated, diarrhea, difficulty swallowing, nausea, no symptoms, other , poor appetite, poor fluid intake, rectal bleeding, tarry stools, vomiting, Reports: abdominal pain Genitourinary: Denies: burning, discharge, flank pain, frequency, hematuria, incontinence, no symptoms, other, pain, urgency Neurologic/Psychiatric: Denies: anxiety, depressed, emotional problems, headache, no symptoms, numbness, other, paresthesia, pre-existing deficit, seizure, tingling, tremors, weakness Endocrine: Denies: excessive sweating, flushing, increased hunger, increased thirst, increased urine, intolerance to cold, intolerance to heat, no symptoms, other, unexplained weight gain, unexplained weight loss Hematologic/Lymphatic: Denies: anemia, easy bleeding, easy bruising, no symptoms, other Subjective Patient is in bed and shows no signs of pain at this time. Pain has been controlled with the intrathecal pump. Objective Last 24 Hour Vital Signs Date Time Temp Pulse Resp B/P (MAP) Pulse Ox O2 Delivery O2 Flow Rate FiO2 10/12/17 07:52 81 16 Room Air 21 10/12/17 04:30 97.4 67 20 132/83 97 Room Air 97.4 10/12/17 00:16 97.5 80 20 104/70 100 Room Air 97.5 10/11/17 21:00 96.8 70 20 103/67 96 Room Air 96.8 10/11/17 20:02 96.8 70 20 95/69 95 Room Air 96.8 10/11/17 18:50 73 16 Room Air 21 10/11/17 15:54 97.9 78 19 104/68 99 97.9 10/11/17 13:55 98.6 76 15 103/69 100 Nasal Cannula 3.0 98.6 10/11/17 13:40 77 16 103/62 99 Nasal Cannula 3.0 10/11/17 13:28 208.8 70 18 100 10/11/17 13:27 208.8 66 18 99 10/11/17 13:25 74 14 104/70 99 Nasal Cannula 3.0 10/11/17 13:15 71 15 106/73 99 Nasal Cannula 3.0 10/11/17 13:10 68 13 108/74 99 Nasal Cannula 3.0 10/11/17 13:06 98.2 67 19 102/72 99 Nasal Cannula 3.0 98.2 10/11/17 12:00 97.3 83 18 106/70 99 97.3 Intake and Output 10/11/17 10/12/17 19:00 07:00 Intake Total 810 ml 240 ml Balance 810 ml 240 ml Intake Oral 360 ml 240 ml IV Total 450 ml # Voids 1 # Bowel Movements 1 Laboratory Tests 10/12/17 06:05: White Blood Count 9.2, Red Blood Count 4.40, Hemoglobin 13.2, Hematocrit 41.2, Mean Corpuscular Volume 94, Mean Corpuscular Hemoglobin 30.0, Mean Corpuscular Hemoglobin Concent 32.0, Red Cell Distribution Width 16.2H, Platelet Count 398, Mean Platelet Volume 7.4, Neutrophils (%) (Auto) 65.0, Lymphocytes (%) (Auto) 23.9, Monocytes (%) (Auto) 10.1H, Eosinophils (%) (Auto) 0.7, Basophils (%) ( Auto) 0.4 Height (Feet): 5 Height (Inches): 7.00 Weight (Pounds): 140 Objective General Appearance: no apparent distress, alert EENT: normal ENT inspection, TMs normal Neck: normal alignment, supple Cardiovascular: normal rate, regular rhythm Respiratory/Chest: decreased breath sounds Abdomen: tender, soft Extremities: non-tender Edema: no edema noted Arm (L), no edema noted Arm (R), no edema noted Leg (L), no edema noted Leg (R), no edema noted Pedal (L), no edema noted Pedal (R), no edema noted Generalized Neurologic: alert, oriented x 3 Skin: warm/dry JOSE ARREDONDO Oct 12, 2017 08:45
[2017-10-12] MEDS: DULoxetine 30mg cap ORAL SCH (09:19)
[2017-10-12] MEDS: Theophylline ER 100mg ORAL SCH ×2 (09:19→20:53)
[2017-10-12] MEDS: Mesalamine 400mg cap ORAL SCH ×3 (09:19→17:07)
[2017-10-12] MEDS: Topiramate 25mg tab ORAL SCH ×2 (09:19→20:53)
[2017-10-12] MEDS: Heparin 5000 units/ml inj SUBQ SCH ×2 (09:20→20:57)
--- NOTE | 2017-10-12 10:16 | Infectious Diseases Prog Note ---
Assessment/Plan Assessment/Plan Sepsis , improving Persistent Gram negative bacteremia- likely from GI source- r/o Crohn's flare, colitis, - r/o PICC line infection -10/07 Bcx / Enterobacter cloacae complex (R ancef, otherwise S); 10/09 Bcx 1/ 4 GNRs; Bcx 10/11 pending --s/p PICC line removal 10/10, cath tip cx NTD -s/p EGD/Colonoscopy 10/11: 1. Possible Aggie esophagitis, status post brush biopsy. 2. Gastritis. 3. Small hiatal hernia. 4. Short segment of colon left. 5. A 1-cm anastomotic ulcer, status post biopsy. -CT abd/p w/: Limited assessment of the GI tract, due to lack of enteric contrast administration. Evidence of extensive prior bowel surgery, with evidence of resection of much of the colon, enterocolic and entero-enteral anastomoses. Dilated right upper quadrant small bowel loops. Most likely on the basis of disordered motility related to the prior surgery, particularly given similarity to the previous exam. However, given evidence of nondilated small bowel loops elsewhere, the possibility of small bowel obstruction should be considered. Gas bubbles adjacent to the gallbladder fossa. Probably within collapsed adjacent small bowel, but the possibility that these represent extraluminal gas bubbles and which would therefore indicate bowel perforation should also be considered. Considerable fluid within the residual colon. Per discussion with referring physician, patient has recent history of diarrhea. Findings are certainly concordant with that. Subcentimeter low-attenuation renal lesions, too small to characterize, most likely benign simple cysts. Right posterior 11th rib fracture, appears acute. Bilateral basilar pulmonary fibrotic changes, also previously demonstrated Leukocytosis ( on steroids ) -resolved -afebrile -CXR 10/07: Mild interstitial prominence, similar to the previous study and likely reflecting fibrotic changes demonstrated on a CT scan of December 2013. No definite acute infiltrate; sp cx NTD -u/a WBC 5-10, nit neg, leuk +1 Hx of Cdiff -Cdiff 10/07 neg Crohn's disease w/ multiple abd surgeries COPD/asthma on B-12 injections via PICC line CAD/HI chronic pain syndrome on morphine pump CVA 2004 seizure disorder Plan: -Continue Ceftriaxone 2 g daily abx d#5 for enterobacter bacteremia and PO Flagyl abx d# 5 for anaerobic coverage 10/11 SP ZOsyn #4 SP oral Vanco d# 2 -Repeat 2 sets of Bcx- if persistent bacteremia after PICC line removal then will need to obtain MRI lumbar spine to r/o intrathecal abscess- at current low suspicion as contrast CT abd/p did not showed abnormality in that area -if MRI done, will need [employer] tech to come after and reset pump -duration of abx will be guided by repeat Bcx, if negative will treat for 10 days from 1st neg Bcx; upon discharge a PO regimen with Cipro and Flagyl can be done -await repeat Bcx 10/11 prior to discharge to ensure clearance of bacteremia -f/u cx -Monitor CBC/BMP, temperatures -appreciate GI and surgery input Subjective Allergies: Coded Allergies: No Known Allergies (Verified , 05/21/06) Objective Vital Signs Last 24 Hour Vital Signs Date Time Temp Pulse Resp B/P (MAP) Pulse Ox O2 Delivery O2 Flow Rate FiO2 10/12/17 08:00 97.1 83 14 103/61 96 97.1 10/12/17 07:52 81 16 Room Air 21 10/12/17 04:30 97.4 67 20 132/83 97 Room Air 97.4 10/12/17 00:16 97.5 80 20 104/70 100 Room Air 97.5 10/11/17 21:00 96.8 70 20 103/67 96 Room Air 96.8 10/11/17 20:02 96.8 70 20 95/69 95 Room Air 96.8 10/11/17 18:50 73 16 Room Air 21 10/11/17 15:54 97.9 78 19 104/68 99 97.9 10/11/17 13:55 98.6 76 15 103/69 100 Nasal Cannula 3.0 98.6 10/11/17 13:40 77 16 103/62 99 Nasal Cannula 3.0 10/11/17 13:28 208.8 70 18 100 10/11/17 13:27 208.8 66 18 99 10/11/17 13:25 74 14 104/70 99 Nasal Cannula 3.0 10/11/17 13:15 71 15 106/73 99 Nasal Cannula 3.0 10/11/17 13:10 68 13 108/74 99 Nasal Cannula 3.0 10/11/17 13:06 98.2 67 19 102/72 99 Nasal Cannula 3.0 98.2 10/11/17 12:00 97.3 83 18 106/70 99 97.3 Height (Feet): 5 Height (Inches): 7.00 Weight (Pounds): 140 Objective General Appearance: alert, mild distress HEENT: normocephalic, normal pharynx,moist mucus membranes Neck: normal inspection, full range of motion, supple Respiratory: respiratory distress, speaking full sentences, wheezing, expiration Cardiovascular : normal inspection, regular rate, rhythm, normal capillary refill Gastrointestinal: other - Morphine pump palpated in abdomen, well-healed surgical scars on abdomen, abdomen is slightly distended, generalized tenderness , normal bowel sounds Musculoskeletal: normal inspection, back normal, normal range of motion, non- tender Neurologic: normal inspection, alert, oriented x3, responsive, motor strength/ tone normal, sensory intact, normal gait, speech normal Skin: normal inspection, normal color, no rash, warm/dry, well hydrated, normal turgor Microbiology Date/Time Source Procedure Growth Status 10/09/17 21:39 Sputum Gram Stain - Final Complete 10/09/17 21:39 Sputum Culture - Final Aggie Albicans Complete 10/10/17 05:54 Catheter Site Catheter Tip Culture - Preliminary NO GROWTH Resulted Laboratory Tests Test 10/12/17 06:05 White Blood Count 9.2 K/UL (4.8-10.8) Red Blood Count 4.40 M/UL (4.20-5.40) Hemoglobin 13.2 G/DL (12.0-16.0) Hematocrit 41.2 % (37.0-47.0) Mean Corpuscular Volume 94 FL (80-99) Mean Corpuscular Hemoglobin 30.0 PG (27.0-31.0) Mean Corpuscular Hemoglobin Concent 32.0 G/DL (32.0-36.0) Red Cell Distribution Width 16.2 % (11.6-14.8) H Platelet Count 398 K/UL (150-450) Mean Platelet Volume 7.4 FL (6.5-10.1) Neutrophils (%) (Auto) 65.0 % (45.0-75.0) Lymphocytes (%) (Auto) 23.9 % (20.0-45.0) Monocytes (%) (Auto) 10.1 % (1.0-10.0) H Eosinophils (%) (Auto) 0.7 % (0.0-3.0) Basophils (%) (Auto) 0.4 % (0.0-2.0) Current Medications Medications (Trade) Dose Ordered Sig/Vaibhav Route PRN Reason Start Time Stop Time Status Last Admin Dose Admin Albuterol/ Ipratropium (Albuterol/ Ipratropium) 3 ml EVERY 4 HOURS PRN HHN dyspnea 10/08/17 19:34 10/12/17 19:33 Atorvastatin Calcium (Lipitor) 40 mg BEDTIME ORAL 10/08/17 21:00 11/07/17 20:59 10/11/17 21:09 Bupropion HCl (Wellbutrin) 100 mg DAILY ORAL 10/09/17 09:00 11/07/17 08:59 10/12/17 09:18 Ceftriaxone Sodium 2 gm/ Sodium Chloride 55 ml @ 110 mls/hr Q24H IVPB 10/11/17 14:30 10/18/17 14:29 10/11/17 14:29 Chlorhexidine Gluconate (Leah-Hex 2%) 1 applic Q24H TOPIC 10/10/17 00:15 11/09/17 00:14 10/10/17 00:54 Dextrose (Dextrose 50%) STAT PRN IV Hypoglycemia 10/08/17 19:34 11/06/17 19:33 Duloxetine HCl (Cymbalta) 60 mg DAILY ORAL 10/09/17 09:00 11/07/17 08:59 10/12/17 09:19 Fluconazole (Diflucan) 200 mg Q24H ORAL 10/12/17 18:00 10/19/17 17:59 Heparin Sodium (Porcine) (Heparin 5000 units/ml) 5,000 units EVERY 12 HOURS SUBQ 10/08/17 21:00 11/07/17 08:59 10/12/17 09:20 Levetiracetam (Keppra) 1,000 mg Q8HR ORAL 10/09/17 06:00 11/08/17 05:59 10/12/17 05:16 Levothyroxine Sodium (Synthroid) 75 mcg ACBREAKFAST ORAL 10/09/17 06:30 11/07/17 06:29 10/12/17 05:16 Loperamide HCl (Imodium) 2 mg Q4H PRN ORAL Diarrhea 10/08/17 19:35 11/07/17 19:34 Lorazepam (Ativan 2mg/ml 1ml) 0.5 mg Q4H PRN IV For Anxiety 10/08/17 19:35 10/14/17 19:34 Mesalamine (Asacol) 800 mg THREE TIMES A DAY ORAL 10/09/17 09:00 11/07/17 17:59 10/12/17 09:19 Metronidazole (Flagyl) 500 mg Q8HR ORAL 10/11/17 14:00 10/18/17 13:59 10/12/17 05:16 Morphine Sulfate (Morphine Sulfate) 2 mg EVERY 4 HOURS PRN IVP severe pain 7-10 10/08/17 19:36 10/14/17 19:35 10/09/17 14:16 Nitroglycerin (Ntg) 0.4 mg Q5M X 3 DOSES PRN SL Prn Chest Pain 10/08/17 19:15 11/06/17 22:29 Ondansetron HCl (Zofran) 4 mg Q6H PRN IVP Nausea & Vomiting 10/08/17 19:36 11/06/17 19:35 10/12/17 04:27 Promethazine HCl/ Codeine (Phenergan with Codeine) 5 ml EVERY 6 HOURS PRN ORAL cough 10/08/17 19:36 11/07/17 19:35 Temazepam (Restoril) 15 mg HSPRN PRN ORAL Insomnia 10/08/17 19:36 10/14/17 19:35 10/11/17 21:10 Theophylline (Erwin-Dur) 100 mg EVERY 12 HOURS ORAL 10/08/17 21:00 11/07/17 08:59 10/12/17 09:19 Topiramate (Topamax) 25 mg Q12HR ORAL 10/09/17 09:00 11/08/17 08:59 10/12/17 09:19 Trazodone HCl (Desyrel) 150 mg BEDTIME ORAL 10/08/17 21:00 11/07/17 20:59 10/11/17 21:09 Kathleen Lafleur M.D. Oct 12, 2017 10:16
--- NOTE | 2017-10-12 11:10 | GI Progress Note ---
Assessment/Plan Problems: (1) Nausea and vomiting (2) Constipation (3) Chronic abdominal pain (4) Abdominal pain (5) Colonoscopy planned ICD Codes: AAA6432 - Reserved for [id number] codable problem concepts SNOMED: 649782319 (6) Chronic back pain ICD Codes: G89.29 - Other chronic pain; M54.9 - Chronic back pain SNOMED: 053232456 (7) Opioid dependence ICD Codes: F11.20 - Opioid dependence SNOMED: 15384945 (8) Therapeutic opioid-induced constipation (OIC) ICD Codes: K59.03 - Drug induced constipation; T40.2X5A - Adverse effect of other opioids, initial encounter SNOMED: 926341580738554 Status: stable Status Narrative Discussed with Dr. Gallegos. Assessment/Plan EGD/colonoscopy SUMMARY OF FINDINGS: 1. Possible Aggie esophagitis, status post brush biopsy. 2. Gastritis. 3. Small hiatal hernia. 4. Short segment of colon left. 5. A 1-cm anastomotic ulcer, status post biopsy. RECOMMENDATIONS: okay for DC per GI standpoint Follow brush biopsy results and treat for Aggie if it is positive. Resume diet. outpatient capsule endoscopy Subjective Subjective better Objective Last 24 Hour Vital Signs Date Time Temp Pulse Resp B/P (MAP) Pulse Ox O2 Delivery O2 Flow Rate FiO2 10/12/17 08:00 97.1 83 14 103/61 96 97.1 10/12/17 07:52 81 16 Room Air 21 10/12/17 04:30 97.4 67 20 132/83 97 Room Air 97.4 10/12/17 00:16 97.5 80 20 104/70 100 Room Air 97.5 10/11/17 21:00 96.8 70 20 103/67 96 Room Air 96.8 10/11/17 20:02 96.8 70 20 95/69 95 Room Air 96.8 10/11/17 18:50 73 16 Room Air 21 10/11/17 15:54 97.9 78 19 104/68 99 97.9 10/11/17 13:55 98.6 76 15 103/69 100 Nasal Cannula 3.0 98.6 10/11/17 13:40 77 16 103/62 99 Nasal Cannula 3.0 10/11/17 13:28 208.8 70 18 100 10/11/17 13:27 208.8 66 18 99 10/11/17 13:25 74 14 104/70 99 Nasal Cannula 3.0 10/11/17 13:15 71 15 106/73 99 Nasal Cannula 3.0 10/11/17 13:10 68 13 108/74 99 Nasal Cannula 3.0 10/11/17 13:06 98.2 67 19 102/72 99 Nasal Cannula 3.0 98.2 10/11/17 12:00 97.3 83 18 106/70 99 97.3 Intake and Output 10/11/17 10/12/17 19:00 07:00 Intake Total 810 ml 240 ml Balance 810 ml 240 ml Intake Oral 360 ml 240 ml IV Total 450 ml # Voids 1 # Bowel Movements 1 Laboratory Tests Test 10/12/17 06:05 White Blood Count 9.2 K/UL (4.8-10.8) Red Blood Count 4.40 M/UL (4.20-5.40) Hemoglobin 13.2 G/DL (12.0-16.0) Hematocrit 41.2 % (37.0-47.0) Mean Corpuscular Volume 94 FL (80-99) Mean Corpuscular Hemoglobin 30.0 PG (27.0-31.0) Mean Corpuscular Hemoglobin Concent 32.0 G/DL (32.0-36.0) Red Cell Distribution Width 16.2 % (11.6-14.8) H Platelet Count 398 K/UL (150-450) Mean Platelet Volume 7.4 FL (6.5-10.1) Neutrophils (%) (Auto) 65.0 % (45.0-75.0) Lymphocytes (%) (Auto) 23.9 % (20.0-45.0) Monocytes (%) (Auto) 10.1 % (1.0-10.0) H Eosinophils (%) (Auto) 0.7 % (0.0-3.0) Basophils (%) (Auto) 0.4 % (0.0-2.0) Height (Feet): 5 Height (Inches): 7.00 Weight (Pounds): 140 General Appearance: WD/WN, no apparent distress, alert, thin Cardiovascular: normal rate Respiratory/Chest: normal breath sounds, no respiratory distress Abdominal Exam: normal bowel sounds, non tender, soft Extremities: normal range of motion, non-tender Tara Scott N.P. Oct 12, 2017 11:09
[2017-10-12 12:00] VITALS: BP 105/71
--- NOTE | 2017-10-12 13:30 | General Surgery Progress Note ---
General Surgery-Progress Note Subjective Additional Comments doing well. no acute events. Objective Last 24 Hour Vital Signs Date Time Temp Pulse Resp B/P (MAP) Pulse Ox O2 Delivery O2 Flow Rate FiO2 10/12/17 12:00 96.8 79 18 105/71 95 96.8 10/12/17 08:00 97.1 83 14 103/61 96 97.1 10/12/17 07:52 81 16 Room Air 21 10/12/17 04:30 97.4 67 20 132/83 97 Room Air 97.4 10/12/17 00:16 97.5 80 20 104/70 100 Room Air 97.5 10/11/17 21:00 96.8 70 20 103/67 96 Room Air 96.8 10/11/17 20:02 96.8 70 20 95/69 95 Room Air 96.8 10/11/17 18:50 73 16 Room Air 21 10/11/17 15:54 97.9 78 19 104/68 99 97.9 10/11/17 13:55 98.6 76 15 103/69 100 Nasal Cannula 3.0 98.6 10/11/17 13:40 77 16 103/62 99 Nasal Cannula 3.0 I&O Intake and Output 10/11/17 10/12/17 19:00 07:00 Intake Total 810 ml 240 ml Balance 810 ml 240 ml Intake Oral 360 ml 240 ml IV Total 450 ml # Voids 1 # Bowel Movements 1 Drains: none Cardiovascular: RSR Respiratory: clear Abdomen: soft, flat, non-tender, present bowel sounds Extremities: no tenderness, no cyanosis Laboratory Tests Test 10/12/17 06:05 White Blood Count 9.2 K/UL (4.8-10.8) Red Blood Count 4.40 M/UL (4.20-5.40) Hemoglobin 13.2 G/DL (12.0-16.0) Hematocrit 41.2 % (37.0-47.0) Mean Corpuscular Volume 94 FL (80-99) Mean Corpuscular Hemoglobin 30.0 PG (27.0-31.0) Mean Corpuscular Hemoglobin Concent 32.0 G/DL (32.0-36.0) Red Cell Distribution Width 16.2 % (11.6-14.8) H Platelet Count 398 K/UL (150-450) Mean Platelet Volume 7.4 FL (6.5-10.1) Neutrophils (%) (Auto) 65.0 % (45.0-75.0) Lymphocytes (%) (Auto) 23.9 % (20.0-45.0) Monocytes (%) (Auto) 10.1 % (1.0-10.0) H Eosinophils (%) (Auto) 0.7 % (0.0-3.0) Basophils (%) (Auto) 0.4 % (0.0-2.0) Plan Problems: (1) Abdominal pain Assessment & Plan: 66 year old female with pain everywhere as per her. states has pain pump that is not functional. pain from head to toes. on exam abd soft, non tender, prior incisions well healed, pain pump noted. no rebound, no guarding. CT reviewed and has had fair amount of colon and some sb resections. area of air noted around gallbladder and liver and agree with radiologist that likely collapsed small bowel. they do not particularly appear extraluminal. afebrile, HD stable, abdominal exam benign. leukocytosis resolved. -no acute surgical intervention necessary. -okay for diet -Abx as per ID -Okay to D/C from surgical standpoint thank you for this consultation. will follow with recs. Wolf Quan Oct 12, 2017 13:30
[2017-10-12] MEDS: cefTRIAXone 2 GM in NS 55 ML IVPB SCH (14:08)
--- NOTE | 2017-10-12 14:27 | General Progress Note ---
Assessment/Plan Problem List: (1) Opioid dependence ICD Codes: F11.20 - Opioid dependence SNOMED: 51406489 (2) COPD (chronic obstructive pulmonary disease) ICD Codes: J44.9 - Chronic obstructive pulmonary disease, unspecified SNOMED: 54689458 (3) Crohns disease ICD Codes: K50.90 - Crohns disease SNOMED: 99102940 (4) Diarrhea ICD Codes: R19.7 - Diarrhea, unspecified SNOMED: 04157982 (5) Shortness of breath (6) Anemia (7) Small bowel obstruction ICD Codes: K56.609 - Unspecified intestinal obstruction, unspecified as to partial versus complete obstruction SNOMED: 073810435 (8) Dyspnea (9) Chronic pain ICD Codes: G89.29 - Other chronic pain SNOMED: 44095975 (10) Abdominal pain Qualifiers: Qualified Codes: R10.84 - Generalized abdominal pain Status: stable, progressing, tolerating diet Assessment/Plan o2 pulm tx abx gi sx f/u dc if clear Subjective Constitutional: Reports: weakness Allergies: Coded Allergies: No Known Allergies (Verified , 05/21/06) All Systems: reviewed and negative except above Subjective sleepy calm in bed Objective Last 24 Hour Vital Signs Date Time Temp Pulse Resp B/P (MAP) Pulse Ox O2 Delivery O2 Flow Rate FiO2 10/12/17 12:00 96.8 79 18 105/71 95 96.8 10/12/17 08:00 97.1 83 14 103/61 96 97.1 10/12/17 07:52 81 16 Room Air 21 10/12/17 04:30 97.4 67 20 132/83 97 Room Air 97.4 10/12/17 00:16 97.5 80 20 104/70 100 Room Air 97.5 10/11/17 21:00 96.8 70 20 103/67 96 Room Air 96.8 10/11/17 20:02 96.8 70 20 95/69 95 Room Air 96.8 10/11/17 18:50 73 16 Room Air 21 10/11/17 15:54 97.9 78 19 104/68 99 97.9 Intake and Output 10/11/17 10/12/17 19:00 07:00 Intake Total 810 ml 240 ml Balance 810 ml 240 ml Intake Oral 360 ml 240 ml IV Total 450 ml # Voids 1 # Bowel Movements 1 Laboratory Tests 10/12/17 06:05: White Blood Count 9.2, Red Blood Count 4.40, Hemoglobin 13.2, Hematocrit 41.2, Mean Corpuscular Volume 94, Mean Corpuscular Hemoglobin 30.0, Mean Corpuscular Hemoglobin Concent 32.0, Red Cell Distribution Width 16.2H, Platelet Count 398, Mean Platelet Volume 7.4, Neutrophils (%) (Auto) 65.0, Lymphocytes (%) (Auto) 23.9, Monocytes (%) (Auto) 10.1H, Eosinophils (%) (Auto) 0.7, Basophils (%) ( Auto) 0.4 Height (Feet): 5 Height (Inches): 7.00 Weight (Pounds): 140 General Appearance: lethargic EENT: normal ENT inspection Neck: normal alignment Cardiovascular: normal peripheral pulses, normal rate, regular rhythm Respiratory/Chest: chest wall non-tender, lungs clear, normal breath sounds Abdomen: normal bowel sounds, non tender, soft Extremities: normal inspection Edema: no edema noted Arm (L), no edema noted Arm (R), no edema noted Leg (L), no edema noted Leg (R), no edema noted Pedal (L), no edema noted Pedal (R), no edema noted Generalized Neurologic: responsive, motor weakness Skin: normal pigmentation, warm/dry BAYRON BENEDICT Oct 12, 2017 14:27
[2017-10-12 15:49] VITALS: BP 111/78
--- NOTE | 2017-10-12 16:00 | Progress Note ---
DATE: 10/12/2017 SUBJECTIVE: The patient is a 66-year-old female patient with COPD. She continues to have some mood lability, agitation, secondary to stress of her medical illness. She has some mood lability, confusion, 00:17 daily psychiatric consultation has been requested by her attending physician. She has 00:24 COPD. MENTAL STATUS EXAMINATION: This is a 66-year-old female with psychomotor retardation. Mood is depressed. Affect is guarded and restricted. Thought process is linear and goal directed. Denies auditory or visual hallucinations. Denies any delusional thoughts. Denies any current suicidal or homicidal thoughts. Insight and judgment is poor. DIAGNOSIS: Bipolar 2. PLAN: Continue titrating up on her psychotropic medications to stabilize her mood. An 18 to 20 minutes of supportive therapy was provided. Encouraged her to interact appropriately with staff. Chart reviewed. Discussed with staff. Seen and assessed at bedside. 01:08. Mena Goncalves M.D. DR: MIKHAIL JOB#: [id number] CC:
[2017-10-12] MEDS: Fluconazole 100mg tab ORAL SCH (17:07)
--- NOTE | 2017-10-12 18:54 | Cardiology Report ---
APPROVED REPORT EKG Measurement Heart [id number] HI [id number] Normal sinus rhythm Normal ECG
[2017-10-12 19:28] VITALS: BP 142/83
--- NOTE | 2017-10-12 19:31 | Pulmonology Progress Note ---
Assessment/Plan Problems: (1) Bacteremia (2) Gram-negative bacteremia (3) PNA (pneumonia) (4) IBD (inflammatory bowel disease) (5) Asthma (6) Opioid dependence (7) COPD exacerbation (8) Elevated CEA Assessment/Plan improving clinically, WBC wnl continue abx dc steroids chest pt abx as per ID d/w Dr Lafleur symptomatic treatment pain management. Subjective ROS Limited/Unobtainable: No Interval Events: feeling better Allergies: Coded Allergies: No Known Allergies (Verified , 05/21/06) Objective Last 24 Hour Vital Signs Date Time Temp Pulse Resp B/P (MAP) Pulse Ox O2 Delivery O2 Flow Rate FiO2 10/12/17 19:28 97.5 79 20 142/83 100 Room Air 97.5 10/12/17 19:12 84 16 Room Air 21 10/12/17 15:49 98.2 86 18 111/78 100 98.2 10/12/17 12:00 96.8 79 18 105/71 95 96.8 10/12/17 08:00 97.1 83 14 103/61 96 97.1 10/12/17 07:52 81 16 Room Air 21 10/12/17 04:30 97.4 67 20 132/83 97 Room Air 97.4 10/12/17 00:16 97.5 80 20 104/70 100 Room Air 97.5 10/11/17 21:00 96.8 70 20 103/67 96 Room Air 96.8 10/11/17 20:02 96.8 70 20 95/69 95 Room Air 96.8 Intake and Output 10/11/17 10/12/17 19:00 07:00 Intake Total 810 ml 240 ml Balance 810 ml 240 ml Intake Oral 360 ml 240 ml IV Total 450 ml # Voids 1 # Bowel Movements 1 Objective General Appearance: WD/WN, no apparent distress Lines, tubes and drains: peripheral HEENT: normocephalic, anicteric Neck: non-tender, normal alignment Respiratory/Chest: chest wall non-tender, + rhonchi Cardiovascular/Chest: normal peripheral pulses Abdomen: normal bowel sounds EXt: no C/C/E Microbiology Date/Time Source Procedure Growth Status 10/09/17 21:39 Sputum Gram Stain - Final Complete 10/09/17 21:39 Sputum Culture - Final Aggie Albicans Complete 10/10/17 05:54 Catheter Site Catheter Tip Culture - Preliminary NO GROWTH Resulted Laboratory Tests 10/12/17 06:05: White Blood Count 9.2, Red Blood Count 4.40, Hemoglobin 13.2, Hematocrit 41.2, Mean Corpuscular Volume 94, Mean Corpuscular Hemoglobin 30.0, Mean Corpuscular Hemoglobin Concent 32.0, Red Cell Distribution Width 16.2H, Platelet Count 398, Mean Platelet Volume 7.4, Neutrophils (%) (Auto) 65.0, Lymphocytes (%) (Auto) 23.9, Monocytes (%) (Auto) 10.1H, Eosinophils (%) (Auto) 0.7, Basophils (%) ( Auto) 0.4 Current Medications Medications (Trade) Dose Ordered Sig/Vaibhav Route PRN Reason Start Time Stop Time Status Last Admin Dose Admin Albuterol/ Ipratropium (Albuterol/ Ipratropium) 3 ml EVERY 4 HOURS PRN HHN dyspnea 10/08/17 19:34 10/12/17 19:33 Atorvastatin Calcium (Lipitor) 40 mg BEDTIME ORAL 10/08/17 21:00 11/07/17 20:59 10/11/17 21:09 Bupropion HCl (Wellbutrin) 100 mg DAILY ORAL 10/09/17 09:00 11/07/17 08:59 10/12/17 09:18 Ceftriaxone Sodium 2 gm/ Sodium Chloride 55 ml @ 110 mls/hr Q24H IVPB 10/11/17 14:30 10/18/17 14:29 10/12/17 14:08 Chlorhexidine Gluconate (Leah-Hex 2%) 1 applic Q24H TOPIC 10/10/17 00:15 11/09/17 00:14 10/10/17 00:54 Dextrose (Dextrose 50%) STAT PRN IV Hypoglycemia 10/08/17 19:34 11/06/17 19:33 Duloxetine HCl (Cymbalta) 60 mg DAILY ORAL 10/09/17 09:00 11/07/17 08:59 10/12/17 09:19 Fluconazole (Diflucan) 200 mg Q24H ORAL 10/12/17 18:00 10/19/17 17:59 10/12/17 17:07 Heparin Sodium (Porcine) (Heparin 5000 units/ml) 5,000 units EVERY 12 HOURS SUBQ 10/08/17 21:00 4/15/18 08:59 10/12/17 09:20 Levetiracetam (Keppra) 1,000 mg Q8HR ORAL 10/09/17 06:00 11/08/17 05:59 10/12/17 13:18 Levothyroxine Sodium (Synthroid) 75 mcg ACBREAKFAST ORAL 10/09/17 06:30 11/07/17 06:29 10/12/17 05:16 Loperamide HCl (Imodium) 2 mg Q4H PRN ORAL Diarrhea 10/08/17 19:35 11/07/17 19:34 Lorazepam (Ativan 2mg/ml 1ml) 0.5 mg Q4H PRN IV For Anxiety 10/08/17 19:35 10/14/17 19:34 Mesalamine (Asacol) 800 mg THREE TIMES A DAY ORAL 10/09/17 09:00 11/07/17 17:59 10/12/17 17:07 Metronidazole (Flagyl) 500 mg Q8HR ORAL 10/11/17 14:00 10/18/17 13:59 10/12/17 13:18 Morphine Sulfate (Morphine Sulfate) 2 mg EVERY 4 HOURS PRN IVP severe pain 7-10 10/08/17 19:36 10/14/17 19:35 10/09/17 14:16 Nitroglycerin (Ntg) 0.4 mg Q5M X 3 DOSES PRN SL Prn Chest Pain 10/08/17 19:15 11/06/17 22:29 Ondansetron HCl (Zofran) 4 mg Q6H PRN IVP Nausea & Vomiting 10/08/17 19:36 11/06/17 19:35 10/12/17 04:27 Promethazine HCl/ Codeine (Phenergan with Codeine) 5 ml EVERY 6 HOURS PRN ORAL cough 10/08/17 19:36 11/07/17 19:35 Temazepam (Restoril) 15 mg HSPRN PRN ORAL Insomnia 10/08/17 19:36 10/14/17 19:35 10/11/17 21:10 Theophylline (Erwin-Dur) 100 mg EVERY 12 HOURS ORAL 10/08/17 21:00 11/07/17 08:59 10/12/17 09:19 Topiramate (Topamax) 25 mg Q12HR ORAL 10/09/17 09:00 11/08/17 08:59 10/12/17 09:19 Trazodone HCl (Desyrel) 150 mg BEDTIME ORAL 10/08/17 21:00 11/07/17 20:59 10/11/17 21:09 Rob Wagner MD Oct 12, 2017 19:31
[2017-10-12] MEDS: Atorvastatin 20mg tab ORAL SCH (20:53)
[2017-10-12] MEDS: TraZODone 100mg tab ORAL SCH (20:53)
[2017-10-13 00:10] VITALS: BP 147/96
[2017-10-13 04:28] VITALS: BP 138/82
[2017-10-13] MEDS: metroNIDAZOLE 500mg tab ORAL SCH ×2 (05:46→14:17)
[2017-10-13 08:00] VITALS: BP 142/80
[2017-10-13 08:05] LABS: ALANINE AMINOTRANSFERASE 18 U/L (12-78); ALBUMIN 2.5 G/DL (3.4-5.0); ALBUMIN/GLOBULIN RATIO 0.4 (1.0-2.7); ALKALINE PHOSPHATASE 117 U/L (46-116); ANION GAP 10 mmol/L (5-15); ASPARTATE AMINO TRANSFERASE 14 U/L (15-37); BILIRUBIN,TOTAL 0.2 MG/DL (0.2-1.0); BLOOD UREA NITROGEN 31 mg/dL (7-18); CALCIUM 9.8 MG/DL (8.5-10.1); CARBON DIOXIDE 23 MMOL/L (21-32); CHLORIDE 106 MMOL/L (98-107); CREATININE 0.8 MG/DL (0.55-1.30); POTASSIUM 3.4 MMOL/L (3.5-5.1); SODIUM 139 MMOL/L (136-145)
--- NOTE | 2017-10-13 08:43 | General Progress Note ---
Assessment/Plan Assessment/Plan (1) Lumbar spondylosis (2) Chronic abdominal pain (3) Radiculopathy of lumbar region (4) Herniated nucleus pulposus, lumbar (5) Chronic pancreatitis (6) Chronic pain Pt will be continued on Morphine and pt has intrathecal pump. Pt was d/w Dr. Malhotra and he concurred. Subjective Date patient seen: Oct 13, 2017 Time patient seen: 07:30 - am Allergies: Coded Allergies: No Known Allergies (Verified , 05/21/06) Subjective Constitutional: Denies: chills, diaphoresis, fever, malaise, no symptoms, other , Reports: weakness HEENT: Denies: blurred vision, double vision, ear discharge, ear pain, eye pain , mouth pain, mouth swelling, no symptoms, nose congestion, nose pain, other, tearing, throat pain, throat swelling Cardiovascular: Denies: chest pain, edema, irregular heart rate, lightheadedness, no symptoms, other, palpitations, syncope Respiratory: Denies: SOB at rest, SOB with excertion, cough, no symptoms, orthopnea, other, shortness of breath, sputum, stridor, wheezing Gastrointestinal/Abdominal: Denies: abdomen distended, black stools, blood in stool, constipated, diarrhea, difficulty swallowing, nausea, no symptoms, other , poor appetite, poor fluid intake, rectal bleeding, tarry stools, vomiting, Reports: abdominal pain Genitourinary: Denies: burning, discharge, flank pain, frequency, hematuria, incontinence, no symptoms, other, pain, urgency Neurologic/Psychiatric: Denies: anxiety, depressed, emotional problems, headache, no symptoms, numbness, other, paresthesia, pre-existing deficit, seizure, tingling, tremors, weakness Endocrine: Denies: excessive sweating, flushing, increased hunger, increased thirst, increased urine, intolerance to cold, intolerance to heat, no symptoms, other, unexplained weight gain, unexplained weight loss Hematologic/Lymphatic: Denies: anemia, easy bleeding, easy bruising, no symptoms, other Subjective Patient has no signs of pain or distress at this time. She is comfortable and has no new complaints. Objective Last 24 Hour Vital Signs Date Time Temp Pulse Resp B/P (MAP) Pulse Ox O2 Delivery O2 Flow Rate FiO2 10/13/17 04:40 Room Air 10/13/17 04:28 98.2 83 20 138/82 100 Room Air 98.2 10/13/17 00:41 Room Air 10/13/17 00:10 97.8 91 20 147/96 96 Room Air 97.8 10/12/17 19:56 Room Air 10/12/17 19:28 97.5 79 20 142/83 100 Room Air 97.5 10/12/17 19:12 84 16 Room Air 21 10/12/17 15:49 98.2 86 18 111/78 100 98.2 10/12/17 12:00 96.8 79 18 105/71 95 96.8 Intake and Output 10/12/17 10/13/17 19:00 07:00 Intake Total 415 ml Balance 415 ml Intake Oral 360 ml IV Total 55 ml # Voids 2 # Bowel Movements 2 Laboratory Tests 10/13/17 05:55: Sodium Level 139, Potassium Level 3.4L, Chloride Level 106, Carbon Dioxide Level 23, Anion Gap 10, Blood Urea Nitrogen 31H, Creatinine 0.8, Estimat Glomerular Filtration Rate > 60, Glucose Level 103, Calcium Level 9.8, Total Bilirubin 0.2, Aspartate Amino Transf (AST/SGOT) 14L, Alanine Aminotransferase ( ALT/SGPT) 18, Alkaline Phosphatase 117H, Total Protein 9.5H, Albumin 2.5L, Globulin 7.0, Albumin/Globulin Ratio 0.4L Height (Feet): 5 Height (Inches): 7.00 Weight (Pounds): 140 Objective General Appearance: no apparent distress, alert EENT: normal ENT inspection, TMs normal Neck: normal alignment, supple Cardiovascular: normal rate, regular rhythm Respiratory/Chest: decreased breath sounds Abdomen: tender, soft Extremities: non-tender Edema: no edema noted Arm (L), no edema noted Arm (R), no edema noted Leg (L), no edema noted Leg (R), no edema noted Pedal (L), no edema noted Pedal (R), no edema noted Generalized Neurologic: alert, oriented x 3 Skin: warm/dry JOSE ARREDONDO Oct 13, 2017 08:43
[2017-10-13] MEDS: Heparin 5000 units/ml inj SUBQ SCH (09:00)
[2017-10-13] MEDS: Topiramate 25mg tab ORAL SCH (09:12)
[2017-10-13] MEDS: DULoxetine 30mg cap ORAL SCH (09:12)
[2017-10-13] MEDS: Theophylline ER 100mg ORAL SCH (09:12)
[2017-10-13] MEDS: Mesalamine 400mg cap ORAL SCH ×3 (09:12→18:38)
--- NOTE | 2017-10-13 11:14 | GI Progress Note ---
Assessment/Plan Problems: (1) Nausea and vomiting (2) Constipation (3) Chronic abdominal pain (4) Abdominal pain (5) Colonoscopy planned ICD Codes: MIG0515 - Reserved for [id number] codable problem concepts SNOMED: 704983009 (6) Chronic back pain ICD Codes: G89.29 - Other chronic pain; M54.9 - Chronic back pain SNOMED: 519165687 (7) Opioid dependence ICD Codes: F11.20 - Opioid dependence SNOMED: 38466372 (8) Therapeutic opioid-induced constipation (OIC) ICD Codes: K59.03 - Drug induced constipation; T40.2X5A - Adverse effect of other opioids, initial encounter SNOMED: 711205678229492 Status: stable Status Narrative Discussed with Dr. Gallegos. Assessment/Plan EGD/colonoscopy SUMMARY OF FINDINGS: 1. Possible Aggie esophagitis, status post brush biopsy. 2. Gastritis. 3. Small hiatal hernia. 4. Short segment of colon left. 5. A 1-cm anastomotic ulcer, status post biopsy. RECOMMENDATIONS: okay for DC per GI standpoint Follow brush biopsy results and treat for Aggie if it is positive. Resume diet. outpatient capsule endoscopy Subjective Subjective better Objective Last 24 Hour Vital Signs Date Time Temp Pulse Resp B/P (MAP) Pulse Ox O2 Delivery O2 Flow Rate FiO2 10/13/17 08:00 98.6 86 18 142/80 96 98.6 10/13/17 07:40 80 16 Room Air 21 10/13/17 04:40 Room Air 10/13/17 04:28 98.2 83 20 138/82 100 Room Air 98.2 10/13/17 00:41 Room Air 10/13/17 00:10 97.8 91 20 147/96 96 Room Air 97.8 10/12/17 19:56 Room Air 10/12/17 19:28 97.5 79 20 142/83 100 Room Air 97.5 10/12/17 19:12 84 16 Room Air 21 10/12/17 15:49 98.2 86 18 111/78 100 98.2 10/12/17 12:00 96.8 79 18 105/71 95 96.8 Intake and Output 10/12/17 10/13/17 19:00 07:00 Intake Total 415 ml Balance 415 ml Intake Oral 360 ml IV Total 55 ml # Voids 2 # Bowel Movements 2 Laboratory Tests Test 10/13/17 05:55 Sodium Level 139 MMOL/L (136-145) Potassium Level 3.4 MMOL/L (3.5-5.1) L Chloride Level 106 MMOL/L (98-107) Carbon Dioxide Level 23 MMOL/L (21-32) Anion Gap 10 mmol/L (5-15) Blood Urea Nitrogen 31 mg/dL (7-18) H Creatinine 0.8 MG/DL (0.55-1.30) Estimat Glomerular Filtration Rate > 60 mL/min (>60) Glucose Level 103 MG/DL (74-106) Calcium Level 9.8 MG/DL (8.5-10.1) Total Bilirubin 0.2 MG/DL (0.2-1.0) Aspartate Amino Transf (AST/SGOT) 14 U/L (15-37) L Alanine Aminotransferase (ALT/SGPT) 18 U/L (12-78) Alkaline Phosphatase 117 U/L (46-116) H Total Protein 9.5 G/DL (6.4-8.2) H Albumin 2.5 G/DL (3.4-5.0) L Globulin 7.0 g/dL Albumin/Globulin Ratio 0.4 (1.0-2.7) L Height (Feet): 5 Height (Inches): 7.00 Weight (Pounds): 140 General Appearance: WD/WN, no apparent distress, alert Cardiovascular: normal rate Respiratory/Chest: normal breath sounds, no respiratory distress Abdominal Exam: normal bowel sounds, non tender, soft Extremities: normal range of motion, non-tender Tara Scott NZahra Oct 13, 2017 11:13
[2017-10-13 12:00] VITALS: BP 122/79
--- NOTE | 2017-10-13 12:01 | Infectious Diseases Prog Note ---
Assessment/Plan Assessment/Plan Sepsis , SP POlymicrobial Gram negative bacteremia- suspect 2ry to PICC line infection (S. maltophilia) and possible also GI source (enterobacter) , although not acute colitis on either CT or colonoscopy. S. maltophilia bacteremia is a serious infection which carries high mortality and should be treated with combination abx therapy. -10/07 Bcx 10/27 Enterobacter cloacae complex (R ancef, otherwise S); 10/09 Bcx 07/29 S. maltophila (S Bactrim, Levofloxacin); Bcx 10/11 NTD --s/p PICC line removal 10/10, cath tip cx NTD -s/p EGD/Colonoscopy 10/11: 1. Possible Aggie esophagitis, status post brush biopsy. 2. Gastritis. 3. Small hiatal hernia. 4. Short segment of colon left. 5. A 1-cm anastomotic ulcer, status post biopsy. -CT abd/p w/: Limited assessment of the GI tract, due to lack of enteric contrast administration. Evidence of extensive prior bowel surgery, with evidence of resection of much of the colon, enterocolic and entero-enteral anastomoses. Dilated right upper quadrant small bowel loops. Most likely on the basis of disordered motility related to the prior surgery, particularly given similarity to the previous exam. However, given evidence of nondilated small bowel loops elsewhere, the possibility of small bowel obstruction should be considered. Gas bubbles adjacent to the gallbladder fossa. Probably within collapsed adjacent small bowel, but the possibility that these represent extraluminal gas bubbles and which would therefore indicate bowel perforation should also be considered. Considerable fluid within the residual colon. Per discussion with referring physician, patient has recent history of diarrhea. Findings are certainly concordant with that. Subcentimeter low-attenuation renal lesions, too small to characterize, most likely benign simple cysts. Right posterior 11th rib fracture, appears acute. Bilateral basilar pulmonary fibrotic changes, also previously demonstrated Leukocytosis ( on steroids ) -resolved -afebrile -CXR 10/07: Mild interstitial prominence, similar to the previous study and likely reflecting fibrotic changes demonstrated on a CT scan of December 2013. No definite acute infiltrate; sp cx NTD -u/a WBC 5-10, nit neg, leuk +1 Hx of Cdiff -Cdiff 10/07 neg Crohn's disease w/ multiple abd surgeries COPD/asthma on B-12 injections via PICC line CAD/AK chronic pain syndrome on morphine pump CVA 2004 seizure disorder Plan: -Start TMP-SMX 5mg/kg IV q8h and switch Ceftriaxone #5 to IV Levaquin 750mg daily for both S. maltophilia and Enterobacter bacteremia. Given her prior multiple abdominal surgeries and malabsorption she will require IV treatment as S.maltophilia bacteremia is a serious infection with high mortality. -duration of treatment is 14 days from 1st neg Bcx on 10/11; end date October 24 2017. Will benefit from SNF. -weekly CBC, CMP -Continue PO Flagyl abx d# 6/14 for anaerobic coverage 10/11 SP ZOsyn #4 SP oral Vanco d# 2 -f/u cx -Monitor CBC/BMP, temperatures Discussed with RN and pharmacist. Subjective Allergies: Coded Allergies: No Known Allergies (Verified , 05/21/06) Subjective afebrile no leukocytosis latest Bcx NTD previous Bcx grew S. maltophilia Objective Vital Signs Last 24 Hour Vital Signs Date Time Temp Pulse Resp B/P (MAP) Pulse Ox O2 Delivery O2 Flow Rate FiO2 10/13/17 08:00 98.6 86 18 142/80 96 98.6 10/13/17 07:40 80 16 Room Air 21 10/13/17 04:40 Room Air 10/13/17 04:28 98.2 83 20 138/82 100 Room Air 98.2 10/13/17 00:41 Room Air 10/13/17 00:10 97.8 91 20 147/96 96 Room Air 97.8 10/12/17 19:56 Room Air 10/12/17 19:28 97.5 79 20 142/83 100 Room Air 97.5 10/12/17 19:12 84 16 Room Air 21 10/12/17 15:49 98.2 86 18 111/78 100 98.2 10/12/17 12:00 96.8 79 18 105/71 95 96.8 Height (Feet): 5 Height (Inches): 7.00 Weight (Pounds): 140 Objective General Appearance: alert, mild distress HEENT: normocephalic, normal pharynx,moist mucus membranes Neck: normal inspection, full range of motion, supple Respiratory: respiratory distress, speaking full sentences, wheezing, expiration Cardiovascular : normal inspection, regular rate, rhythm, normal capillary refill Gastrointestinal: other - Morphine pump palpated in abdomen, well-healed surgical scars on abdomen, abdomen is slightly distended, generalized tenderness , normal bowel sounds Musculoskeletal: normal inspection, back normal, normal range of motion, non- tender Neurologic: normal inspection, alert, oriented x3, responsive, motor strength/ tone normal, sensory intact, normal gait, speech normal Skin: normal inspection, normal color, no rash, warm/dry, well hydrated, normal turgor Microbiology Date/Time Source Procedure Growth Status 10/11/17 16:01 Blood Blood Culture - Preliminary NO GROWTH AFTER 24 HOURS Resulted 10/11/17 15:50 Blood Blood Culture - Preliminary NO GROWTH AFTER 24 HOURS Resulted Laboratory Tests Test 10/13/17 05:55 Sodium Level 139 MMOL/L (136-145) Potassium Level 3.4 MMOL/L (3.5-5.1) L Chloride Level 106 MMOL/L (98-107) Carbon Dioxide Level 23 MMOL/L (21-32) Anion Gap 10 mmol/L (5-15) Blood Urea Nitrogen 31 mg/dL (7-18) H Creatinine 0.8 MG/DL (0.55-1.30) Estimat Glomerular Filtration Rate > 60 mL/min (>60) Glucose Level 103 MG/DL (74-106) Calcium Level 9.8 MG/DL (8.5-10.1) Total Bilirubin 0.2 MG/DL (0.2-1.0) Aspartate Amino Transf (AST/SGOT) 14 U/L (15-37) L Alanine Aminotransferase (ALT/SGPT) 18 U/L (12-78) Alkaline Phosphatase 117 U/L (46-116) H Total Protein 9.5 G/DL (6.4-8.2) H Albumin 2.5 G/DL (3.4-5.0) L Globulin 7.0 g/dL Albumin/Globulin Ratio 0.4 (1.0-2.7) L Current Medications Medications (Trade) Dose Ordered Sig/Vaibhav Route PRN Reason Start Time Stop Time Status Last Admin Dose Admin Atorvastatin Calcium (Lipitor) 40 mg BEDTIME ORAL 10/08/17 21:00 11/07/17 20:59 10/12/17 20:53 Bupropion HCl (Wellbutrin) 100 mg DAILY ORAL 10/09/17 09:00 11/07/17 08:59 10/13/17 09:12 Ceftriaxone Sodium 2 gm/ Sodium Chloride 55 ml @ 110 mls/hr Q24H IVPB 10/11/17 14:30 10/18/17 14:29 10/12/17 14:08 Chlorhexidine Gluconate (Leah-Hex 2%) 1 applic Q24H TOPIC 10/10/17 00:15 11/09/17 00:14 10/10/17 00:54 Dextrose (Dextrose 50%) STAT PRN IV Hypoglycemia 10/08/17 19:34 11/06/17 19:33 Duloxetine HCl (Cymbalta) 60 mg DAILY ORAL 10/09/17 09:00 11/07/17 08:59 10/13/17 09:12 Fluconazole (Diflucan) 200 mg Q24H ORAL 10/12/17 18:00 10/19/17 17:59 10/12/17 17:07 Heparin Sodium (Porcine) (Heparin 5000 units/ml) 5,000 units EVERY 12 HOURS SUBQ 10/08/17 21:00 11/07/17 08:59 10/12/17 20:57 Levetiracetam (Keppra) 1,000 mg Q8HR ORAL 10/09/17 06:00 11/08/17 05:59 10/13/17 05:46 Levothyroxine Sodium (Synthroid) 75 mcg ACBREAKFAST ORAL 10/09/17 06:30 11/07/17 06:29 10/13/17 05:46 Loperamide HCl (Imodium) 2 mg Q4H PRN ORAL Diarrhea 10/08/17 19:35 11/07/17 19:34 Lorazepam (Ativan 2mg/ml 1ml) 0.5 mg Q4H PRN IV For Anxiety 10/08/17 19:35 10/14/17 19:34 Mesalamine (Asacol) 800 mg THREE TIMES A DAY ORAL 10/09/17 09:00 11/07/17 17:59 10/13/17 09:12 Metronidazole (Flagyl) 500 mg Q8HR ORAL 10/11/17 14:00 10/18/17 13:59 10/13/17 05:46 Morphine Sulfate (Morphine Sulfate) 2 mg EVERY 4 HOURS PRN IVP severe pain 7-10 10/08/17 19:36 10/14/17 19:35 10/09/17 14:16 Nitroglycerin (Ntg) 0.4 mg Q5M X 3 DOSES PRN SL Prn Chest Pain 10/08/17 19:15 11/06/17 22:29 Ondansetron HCl (Zofran) 4 mg Q6H PRN IVP Nausea & Vomiting 10/08/17 19:36 11/06/17 19:35 10/12/17 04:27 Promethazine HCl/ Codeine (Phenergan with Codeine) 5 ml EVERY 6 HOURS PRN ORAL cough 10/08/17 19:36 11/07/17 19:35 Temazepam (Restoril) 15 mg HSPRN PRN ORAL Insomnia 10/08/17 19:36 10/14/17 19:35 10/11/17 21:10 Theophylline (Erwin-Dur) 100 mg EVERY 12 HOURS ORAL 10/08/17 21:00 11/07/17 08:59 10/13/17 09:12 Topiramate (Topamax) 25 mg Q12HR ORAL 10/09/17 09:00 11/08/17 08:59 10/13/17 09:12 Trazodone HCl (Desyrel) 150 mg BEDTIME ORAL 10/08/17 21:00 11/07/17 20:59 10/12/17 20:53 Kathleen Lafleur M.D. Oct 13, 2017 12:01
--- NOTE | 2017-10-13 12:24 | General Surgery Progress Note ---
General Surgery-Progress Note Subjective Symptoms: improved, pain absent, tolerating diet, passing flatus, BM Objective Last 24 Hour Vital Signs Date Time Temp Pulse Resp B/P (MAP) Pulse Ox O2 Delivery O2 Flow Rate FiO2 10/13/17 08:00 98.6 86 18 142/80 96 98.6 10/13/17 07:40 80 16 Room Air 21 10/13/17 04:40 Room Air 10/13/17 04:28 98.2 83 20 138/82 100 Room Air 98.2 10/13/17 00:41 Room Air 10/13/17 00:10 97.8 91 20 147/96 96 Room Air 97.8 10/12/17 19:56 Room Air 10/12/17 19:28 97.5 79 20 142/83 100 Room Air 97.5 10/12/17 19:12 84 16 Room Air 21 10/12/17 15:49 98.2 86 18 111/78 100 98.2 I&O Intake and Output 10/12/17 10/13/17 19:00 07:00 Intake Total 415 ml Balance 415 ml Intake Oral 360 ml IV Total 55 ml # Voids 2 # Bowel Movements 2 Drains: none Cardiovascular: RSR Respiratory: clear Abdomen: soft, flat, non-tender, present bowel sounds Extremities: no edema, no tenderness, no cyanosis Laboratory Tests Test 10/13/17 05:55 Sodium Level 139 MMOL/L (136-145) Potassium Level 3.4 MMOL/L (3.5-5.1) L Chloride Level 106 MMOL/L (98-107) Carbon Dioxide Level 23 MMOL/L (21-32) Anion Gap 10 mmol/L (5-15) Blood Urea Nitrogen 31 mg/dL (7-18) H Creatinine 0.8 MG/DL (0.55-1.30) Estimat Glomerular Filtration Rate > 60 mL/min (>60) Glucose Level 103 MG/DL (74-106) Calcium Level 9.8 MG/DL (8.5-10.1) Total Bilirubin 0.2 MG/DL (0.2-1.0) Aspartate Amino Transf (AST/SGOT) 14 U/L (15-37) L Alanine Aminotransferase (ALT/SGPT) 18 U/L (12-78) Alkaline Phosphatase 117 U/L (46-116) H Total Protein 9.5 G/DL (6.4-8.2) H Albumin 2.5 G/DL (3.4-5.0) L Globulin 7.0 g/dL Albumin/Globulin Ratio 0.4 (1.0-2.7) L Plan Problems: (1) Abdominal pain Assessment & Plan: 66 year old female with pain everywhere as per her. states has pain pump that is not functional. pain from head to toes. on exam abd soft, non tender, prior incisions well healed, pain pump noted. no rebound, no guarding. CT reviewed and has had fair amount of colon and some sb resections. area of air noted around gallbladder and liver and agree with radiologist that likely collapsed small bowel. they do not particularly appear extraluminal. afebrile, HD stable, abdominal exam benign. leukocytosis resolved. -no acute surgical intervention necessary. -okay for diet -Abx as per ID -Okay to D/C from surgical standpoint when ready thank you for this consultation. will follow with recs. Wolf Quan Oct 13, 2017 12:24
[2017-10-13] MEDS ORDERED: Bactrim 20ml in D5W 550ml IV SCH (14:00)
[2017-10-13] MEDS: Morphine Sulfate 2mg/ml Inj IVP PRN (14:01)
--- NOTE | 2017-10-13 14:59 | General Progress Note ---
Assessment/Plan Problem List: (1) Opioid dependence ICD Codes: F11.20 - Opioid dependence SNOMED: 50238970 (2) COPD (chronic obstructive pulmonary disease) ICD Codes: J44.9 - Chronic obstructive pulmonary disease, unspecified SNOMED: 77135503 (3) Crohns disease ICD Codes: K50.90 - Crohns disease SNOMED: 42555388 (4) Diarrhea ICD Codes: R19.7 - Diarrhea, unspecified SNOMED: 94891325 (5) Shortness of breath (6) Anemia (7) Small bowel obstruction ICD Codes: K56.609 - Unspecified intestinal obstruction, unspecified as to partial versus complete obstruction SNOMED: 208471758 (8) Dyspnea (9) Chronic pain ICD Codes: G89.29 - Other chronic pain SNOMED: 70064060 (10) Abdominal pain Qualifiers: Qualified Codes: R10.84 - Generalized abdominal pain Status: unchanged Assessment/Plan o2 pulm tx abx gi sx f/u cbc bmp am dc plan to snf if clear Subjective Constitutional: Reports: weakness Allergies: Coded Allergies: No Known Allergies (Verified , 05/21/06) All Systems: reviewed and negative except above Subjective sleepy calm in bed Objective Last 24 Hour Vital Signs Date Time Temp Pulse Resp B/P (MAP) Pulse Ox O2 Delivery O2 Flow Rate FiO2 10/13/17 14:01 98.8 10/13/17 12:00 98.8 85 19 122/79 99 98.8 10/13/17 08:00 98.6 86 18 142/80 96 98.6 10/13/17 07:40 80 16 Room Air 10/13/17 04:40 Room Air 10/13/17 04:28 98.2 83 20 138/82 100 Room Air 98.2 10/13/17 00:41 Room Air 10/13/17 00:10 97.8 91 20 147/96 96 Room Air 97.8 10/12/17 19:56 Room Air 10/12/17 19:28 97.5 79 20 142/83 100 Room Air 97.5 10/12/17 19:12 84 16 Room Air 21 10/12/17 15:49 98.2 86 18 111/78 100 98.2 Intake and Output 10/12/17 10/13/17 19:00 07:00 Intake Total 415 ml Balance 415 ml Intake Oral 360 ml IV Total 55 ml # Voids 2 # Bowel Movements 2 Laboratory Tests 10/13/17 05:55: Sodium Level 139, Potassium Level 3.4L, Chloride Level 106, Carbon Dioxide Level 23, Anion Gap 10, Blood Urea Nitrogen 31H, Creatinine 0.8, Estimat Glomerular Filtration Rate > 60, Glucose Level 103, Calcium Level 9.8, Total Bilirubin 0.2, Aspartate Amino Transf (AST/SGOT) 14L, Alanine Aminotransferase ( ALT/SGPT) 18, Alkaline Phosphatase 117H, Total Protein 9.5H, Albumin 2.5L, Globulin 7.0, Albumin/Globulin Ratio 0.4L Height (Feet): 5 Height (Inches): 7.00 Weight (Pounds): 140 General Appearance: lethargic EENT: normal ENT inspection Neck: normal alignment Cardiovascular: normal peripheral pulses, normal rate, regular rhythm Respiratory/Chest: decreased breath sounds Abdomen: normal bowel sounds, non tender, soft Extremities: normal inspection Edema: no edema noted Arm (L), no edema noted Arm (R), no edema noted Leg (L), no edema noted Leg (R), no edema noted Pedal (L), no edema noted Pedal (R), no edema noted Generalized Neurologic: responsive, motor weakness Skin: normal pigmentation, warm/dry BAYRON BENEDICT Oct 13, 2017 14:59
[2017-10-13 16:00] VITALS: BP 134/85
[2017-10-13] MEDS ORDERED: ASACOL HD800 MG ORAL (16:07)
[2017-10-13] MEDS ORDERED: TRAZODONE HCL100 MG ORAL (16:08)
[2017-10-13] MEDS ORDERED: LIPITOR40 MG ORAL (16:09)
[2017-10-13] MEDS ORDERED: FLUCONAZOLE200 MG ORAL (16:09)
[2017-10-13] MEDS ORDERED: THEOPHYLLINE A100 MG ORAL (16:10)
[2017-10-13] MEDS ORDERED: TOPAMAX25 M1 ORAL (16:11)
[2017-10-13] MEDS ORDERED: SYNTHROID137 MCG ORAL (16:11)
[2017-10-13] MEDS ORDERED: CYMBALTA60 MG ORAL (16:12)
--- NOTE | 2017-10-13 17:00 | Cardiology Report ---
APPROVED REPORT EKG Measurement Heart [id number] Normal sinus rhythm Normal ECG
--- NOTE | 2017-10-13 17:06 | Pulmonology Progress Note ---
Assessment/Plan Problems: (1) Bacteremia (2) Gram-negative bacteremia (3) PNA (pneumonia) (4) IBD (inflammatory bowel disease) (5) Asthma (6) Opioid dependence (7) COPD exacerbation (8) Elevated CEA Assessment/Plan improving clinically, WBC wnl continue abx dc steroids chest pt abx as per ID d/w Dr Lafleur symptomatic treatment pain management. two weeks of IV abx total Subjective ROS Limited/Unobtainable: No Constitutional: Reports: no symptoms HEENT: Repors: no symptoms Respiratory: Reports: no symptoms Allergies: Coded Allergies: No Known Allergies (Verified , 05/21/06) Objective Last 24 Hour Vital Signs Date Time Temp Pulse Resp B/P (MAP) Pulse Ox O2 Delivery O2 Flow Rate FiO2 10/13/17 16:00 97.2 89 19 134/85 100 97.2 10/13/17 14:31 98.8 10/13/17 14:01 98.8 10/13/17 12:00 98.8 85 19 122/79 99 98.8 10/13/17 08:00 98.6 86 18 142/80 96 98.6 10/13/17 07:40 80 16 Room Air 21 10/13/17 04:40 Room Air 10/13/17 04:28 98.2 83 20 138/82 100 Room Air 98.2 10/13/17 00:41 Room Air 10/13/17 00:10 97.8 91 20 147/96 96 Room Air 97.8 10/12/17 19:56 Room Air 10/12/17 19:28 97.5 79 20 142/83 100 Room Air 97.5 10/12/17 19:12 84 16 Room Air 21 Intake and Output 10/12/17 10/13/17 19:00 07:00 Intake Total 415 ml Balance 415 ml Intake Oral 360 ml IV Total 55 ml # Voids 2 # Bowel Movements 2 Objective General Appearance: WD/WN, no apparent distress Lines, tubes and drains: peripheral HEENT: normocephalic, anicteric Neck: non-tender, normal alignment Respiratory/Chest: chest wall non-tender, + rhonchi Cardiovascular/Chest: normal peripheral pulses Abdomen: normal bowel sounds EXt: no C/C/E Microbiology Date/Time Source Procedure Growth Status 10/11/17 16:01 Blood Blood Culture - Preliminary NO GROWTH AFTER 24 HOURS Resulted 10/11/17 15:50 Blood Blood Culture - Preliminary NO GROWTH AFTER 24 HOURS Resulted Laboratory Tests 10/13/17 05:55: Sodium Level 139, Potassium Level 3.4L, Chloride Level 106, Carbon Dioxide Level 23, Anion Gap 10, Blood Urea Nitrogen 31H, Creatinine 0.8, Estimat Glomerular Filtration Rate > 60, Glucose Level 103, Calcium Level 9.8, Total Bilirubin 0.2, Aspartate Amino Transf (AST/SGOT) 14L, Alanine Aminotransferase ( ALT/SGPT) 18, Alkaline Phosphatase 117H, Total Protein 9.5H, Albumin 2.5L, Globulin 7.0, Albumin/Globulin Ratio 0.4L Current Medications Medications (Trade) Dose Ordered Sig/Vaibhav Route PRN Reason Start Time Stop Time Status Last Admin Dose Admin Atorvastatin Calcium (Lipitor) 40 mg BEDTIME ORAL 10/08/17 21:00 11/07/17 20:59 10/12/17 20:53 Bupropion HCl (Wellbutrin) 100 mg DAILY ORAL 10/09/17 09:00 11/07/17 08:59 10/13/17 09:12 Chlorhexidine Gluconate (Leah-Hex 2%) 1 applic Q24H TOPIC 10/10/17 00:15 11/09/17 00:14 10/10/17 00:54 Dextrose (Dextrose 50%) STAT PRN IV Hypoglycemia 10/08/17 19:34 11/06/17 19:33 Duloxetine HCl (Cymbalta) 60 mg DAILY ORAL 10/09/17 09:00 11/07/17 08:59 10/13/17 09:12 Fluconazole (Diflucan) 200 mg Q24H ORAL 10/12/17 18:00 10/19/17 17:59 10/12/17 17:07 Heparin Sodium (Porcine) (Heparin 5000 units/ml) 5,000 units EVERY 12 HOURS SUBQ 10/08/17 21:00 11/07/17 08:59 10/12/17 20:57 Levetiracetam (Keppra) 1,000 mg Q8HR ORAL 10/09/17 06:00 11/08/17 05:59 10/13/17 14:17 Levofloxacin 150 ml @ 100 mls/hr Q24H IVPB 10/13/17 13:00 10/20/17 12:59 10/13/17 14:02 Levothyroxine Sodium (Synthroid) 75 mcg ACBREAKFAST ORAL 10/09/17 06:30 11/07/17 06:29 10/13/17 05:46 Loperamide HCl (Imodium) 2 mg Q4H PRN ORAL Diarrhea 10/08/17 19:35 11/07/17 19:34 Lorazepam (Ativan 2mg/ml 1ml) 0.5 mg Q4H PRN IV For Anxiety 10/08/17 19:35 10/14/17 19:34 Mesalamine (Asacol) 800 mg THREE TIMES A DAY ORAL 10/09/17 09:00 11/07/17 17:59 10/13/17 13:09 Metronidazole (Flagyl) 500 mg Q8HR ORAL 10/11/17 14:00 10/18/17 13:59 10/13/17 14:17 Morphine Sulfate (Morphine Sulfate) 2 mg EVERY 4 HOURS PRN IVP severe pain 7-10 10/08/17 19:36 10/14/17 19:35 10/13/17 14:01 Nitroglycerin (Ntg) 0.4 mg Q5M X 3 DOSES PRN SL Prn Chest Pain 10/08/17 19:15 11/06/17 22:29 Ondansetron HCl (Zofran) 4 mg Q6H PRN IVP Nausea & Vomiting 10/08/17 19:36 11/06/17 19:35 10/13/17 14:01 Promethazine HCl/ Codeine (Phenergan with Codeine) 5 ml EVERY 6 HOURS PRN ORAL cough 10/08/17 19:36 11/07/17 19:35 Temazepam (Restoril) 15 mg HSPRN PRN ORAL Insomnia 10/08/17 19:36 10/14/17 19:35 10/11/17 21:10 Theophylline (Erwin-Dur) 100 mg EVERY 12 HOURS ORAL 10/08/17 21:00 11/07/17 08:59 10/13/17 09:12 Topiramate (Topamax) 25 mg Q12HR ORAL 10/09/17 09:00 11/08/17 08:59 10/13/17 09:12 Trazodone HCl (Desyrel) 150 mg BEDTIME ORAL 10/08/17 21:00 4/15/18 20:59 10/12/17 20:53 Trimethoprim/ Sulfamethoxazole 20 ml/Dextrose 570 ml @ 380 mls/hr EVERY 8 HOURS IV 10/13/17 14:00 10/20/17 13:59 10/13/17 15:14 Rob Wagner MD Oct 13, 2017 17:06
[2017-10-13] MEDS ORDERED: METRONIDAZOLE250 MG ORAL (18:06)
[2017-10-13] MEDS ORDERED: LEVOFLOXAC500 MG/100 IVPB (18:07)
[2017-10-13] MEDS: Fluconazole 100mg tab ORAL SCH (18:38)
--- NOTE | 2017-10-13 19:16 | Progress Note ---
DATE: 10/13/2017 HISTORY: The patient is a 66-year-old female patient with COPD. This patient still does have some confusion, some disorganized thought process, and mood lability, worsened by stress of her medical illness. That is why, her attending had requested daily psychiatric consultation. MENTAL STATUS EXAMINATION: This is a 66-year-old female with psychomotor retardation. Mood is depressed. Affect guarded and restricted. Thought process, disorganized and illogical. Denies any current suicidal or homicidal thoughts. Insight and judgment is poor. DIAGNOSIS: Bipolar 2. PLAN: Continue titrating up on her mood stabilizer medications to stabilize her mood. Provide 18-20 minutes of supportive therapy and encourage her to interact appropriately with staff and other patients. Chart reviewed. Discussed with staff. Seen and assessed in her room. Mena Goncalves M.D. DR: MERLINE JOB#: [id number] CC:
--- NOTE | 2017-10-14 11:44 | Discharge Summary ---
Discharge Summary Hospital Course Date of Admission Oct 07, 2017 at 15:33 Date of Discharge Oct 13, 2017 at 19:30 Admitting Diagnosis copd exacerbation/abd pain HPI Jayde Buchanan is a 66 year old female who was admitted on Oct 07, 2017 at 15:33 for Chronic Obstructive Pulmonary Disorder Hospital Course [id number] Discharge Discharge Disposition Patient was discharged to snf Carolina Damon NP Oct 14, 2017 11:44
--- NOTE | 2017-10-15 05:16 | Discharge Summary 2 SIG ---
DATE OF ADMISSION: 10/07/2017 DATE OF DISCHARGE: 10/13/2017 CONSULTANTS: 1. Mena Goncalves M.D. 2. Rob Wagner M.D. 3. Wolf Quan M.D. 4. Kathleen Lafleur M.D. 5. Winston Malhotra M.D. 6. Skyler Gallegos M.D. BRIEF HOSPITAL COURSE: The patient is a 66-year-old female, who presented to [facility] due to one week weakness and lethargy with nausea and vomiting. The patient had diarrhea at home. She has medical history significant for chronic obstructive pulmonary disease, Crohn disease, chronic pain, and history of small bowel obstruction with status post abdominal surgery. On evaluation at ED, she stated that she recently took amoxicillin as prescribed by her dentist. She had been using nebulizers with minimal relief. She came in with a PICC line on the left arm and also had a morphine pump for chronic pain, however, she stated is nonfunctional. Workup showed elevated WBC to 23. She was started on IV fluids. EKG was in normal sinus rhythm. Chest x-ray showed interstitial infiltrates. She was then admitted to telemetry for chronic obstructive pulmonary disease exacerbation and for evaluation of diarrhea, possible small bowel obstruction, and rib fracture. Abdominal and pelvic CT scan showed evidence of extensive prior bowel surgery with evidence of resection of the colon, enterocolic, and enteroenteral anastomosis. There was dilated right upper quadrant small bowel loops and right posterior eleventh rib fracture, which appeared acute. She was evaluated by General Surgery. The patient has pain all over abdomen, back, shoulders, extremities, and head. Abdominal exam was negative for rebound or guarding and abdominal exam was benign. There was no acute surgical intervention necessary. She was then ordered diet. She underwent psychiatric evaluation. She was diagnosed with bipolar 2 disorder. She was given Wellbutrin 150 daily, Cymbalta 30 mg daily, and Topamax 25 mg b.i.d., and trazodone 150 at bedtime. She underwent esophagogastroduodenoscopy by Dr. Gallegos on 10/11/2017. Findings showed possible Aggie esophagitis status post brush biopsy. There was presence of small hiatal hernia, gastritis, short segment of left colon, and a 1 cm anastomotic ulcer status post biopsy. She had a polymicrobial gram-negative bacteremia, suspect possibly secondary to PICC line infection and also gastrointestinal source, "Enterobacter." PICC line was removed on 10/10/2017 and catheter culture did not isolate any growth. C. difficile was negative. She was given Bactrim and ceftriaxone was switched to Levaquin. End of therapy estimated 10/24/2017. She was also given Flagyl for anaerobic coverage. She was referred to SNF. She was eventually discharged to SNF. FINAL DIAGNOSES: 1. Sepsis. 2. Polymicrobial gram-negative bacteremia. 3. Chronic obstructive pulmonary disease/asthma. 4. Chronic pain syndrome. 5. Seizure disorder. 6. Opioid dependence. 7. Acute chronic obstructive pulmonary disease exacerbation. 8. Pneumonia. 9. Anemia. 10. Diarrhea, negative for Clostridium difficile. 11. Crohn's disease. 12. Bipolar disorder. 13. Chronic pancreatitis. 14. Lumbar spondylosis. 15. Gastritis. 16. Possible Aggie esophagitis. 17. Small hiatal hernia. 18. Anastomotic ulcer. DISPOSITION: The patient was discharged to SNF. DISCHARGE MEDICATIONS: Refer to medication list. Barber Dial D.O. I have been assigned to dictate discharge summary on this account and I was not involved in the patient's management. Carolina Damon N.P. DR: ADY JOB#: [id number] CC: DENI
== END 2017-10-13 19:30 | DRG 871 ==
LOC: EMR 14:54 → 2E 15:33 → EDBEDREQ 15:56 → 2E 18:57 → 4W 10-08 19:43
PROC: 0DBB8ZX Excision of Ileum, Via Natural or Artificial Opening Endoscopic, Diagnostic (ICD-10-PCS; principal; 2017-10-11 12:30)
PROC: 0DD58ZX Extraction of Esophagus, Via Natural or Artificial Opening Endoscopic, Diagnostic (ICD-10-PCS; principal; 2017-10-11 12:30)
DX: A41.9 Sepsis, unspecified organism (principal); K63.1 Perforation of intestine (nontraumatic); K63.3 Ulcer of intestine; J18.9 Pneumonia, unspecified organism; J44.0 Chronic obstructive pulmonary disease with (acute) lower respiratory infection; K50.918 Crohn's disease, unspecified, with other complication; F11.20 Opioid dependence, uncomplicated; N39.0 Urinary tract infection, site not specified; F31.81 Bipolar II disorder; J44.1 Chronic obstructive pulmonary disease with (acute) exacerbation; K29.60 Other gastritis without bleeding; K44.9 Diaphragmatic hernia without obstruction or gangrene; Z79.82 Long term (current) use of aspirin; R97.0 Elevated carcinoembryonic antigen [CEA]; I25.10 Atherosclerotic heart disease of native coronary artery without angina pectoris; G89.4 Chronic pain syndrome; Z79.891 Long term (current) use of opiate analgesic; K58.9 Irritable bowel syndrome, unspecified; K59.03 Drug induced constipation; T40.2X5A Adverse effect of other opioids, initial encounter; Y92.9 Unspecified place or not applicable; F17.200 Nicotine dependence, unspecified, uncomplicated; E88.09 Other disorders of plasma-protein metabolism, not elsewhere classified; G40.909 Epilepsy, unspecified, not intractable, without status epilepticus; D64.9 Anemia, unspecified; R19.7 Diarrhea, unspecified
CPT/HCPCS: 36415; 71045; 74177; 80048; 80053; 80299; 81003; 82378; 83540; 83550; 83605; 83690; 83735; 84100; 85007; 85025; 85610; 85651; 86140; 87040; 87070; 87181; 87205; 87324; 93005; 93306; 94003; 94150; 94640; 94664; 99291; J2405; J8499

== ENCOUNTER 2017-11-02 09:39 | Outpatient (CLI) | payer MEDICARE, MEDICAID ==
[~2017-11-02 09:39] MED LIST changes: +FLUCONAZOLE200 MG ORAL; +LEVOFLOXAC500 MG/100 IVPB; +METRONIDAZOLE250 MG ORAL; +SYNTHROID137 MCG ORAL; +TOPAMAX25 M1 ORAL
--- NOTE | 2017-11-02 11:08 | GI Progress Note ---
Assessment/Plan Problems: (1) Crohn's disease ICD Codes: K50.90 - Crohn's disease SNOMED: 36952100 (2) Chronic pain ICD Codes: G89.29 - Other chronic pain SNOMED: 22039890 (3) Diarrhea ICD Codes: R19.7 - Diarrhea, unspecified SNOMED: 96320984 (4) Opioid dependence ICD Codes: F11.20 - Opioid dependence SNOMED: 81534674 (5) Weight loss ICD Codes: R63.4 - Abnormal weight loss SNOMED: 04172407, 202757564 Status: stable Status Narrative Seen with Dr. Gallegos. Assessment/Plan SUMMARY OF FINDINGS reviewed with patient: 1. Possible Aggie esophagitis, status post brush biopsy. 2. Gastritis. 3. Small hiatal hernia. 4. Short segment of colon left. 5. A 1-cm anastomotic ulcer, status post biopsy. RECOMMENDATIONS: Diflucan 200mg PO daily x 14 days per pt had recent CT on 09/27/17, CT reviewed. cont Apriso plan for capsule endoscopy 11/09/17. - - CLD & (Miralax) prep instructions given and acknowledged by patient. - NPO @ MI day prior procedure explained. Subjective Subjective abdominal pain diarrhea x 2 days Objective T 98.0 BP 106/73 P 89 General Appearance: WD/WN, no apparent distress, alert Cardiovascular: normal rate Respiratory/Chest: normal breath sounds, no respiratory distress Abdominal Exam: normal bowel sounds, non tender, soft Extremities: normal range of motion, non-tender Tara Scott N.P. Nov 02, 2017 11:08
[2017-11-02 12:23] VITALS: BP 106/73
== END 2017-11-02 10:11 | disposition home or self-care (01) ==
LOC: PAN 09:39
DX: K50.90 Crohn's disease, unspecified, without complications (principal); G89.29 Other chronic pain; R19.7 Diarrhea, unspecified; F11.20 Opioid dependence, uncomplicated; R63.4 Abnormal weight loss; K29.70 Gastritis, unspecified, without bleeding; K44.9 Diaphragmatic hernia without obstruction or gangrene
CPT/HCPCS: 99212

== ENCOUNTER 2017-11-09 08:59 | Outpatient (CLI) | payer MEDICARE, MEDICAID ==
[2017-11-09 10:13] VITALS: BP 106/76
--- NOTE | 2017-11-09 11:15 | GI Progress Note ---
Assessment/Plan Problems: (1) Weight loss ICD Codes: R63.4 - Abnormal weight loss SNOMED: 69755909, 483497902 (2) Diarrhea ICD Codes: R19.7 - Diarrhea, unspecified SNOMED: 92182851 (3) Crohn's disease ICD Codes: K50.90 - Crohn's disease SNOMED: 39845873 (4) Opioid dependence ICD Codes: F11.20 - Opioid dependence SNOMED: 50076116 (5) Anemia Status: stable Status Narrative Seen with Dr. Gallegos. Assessment/Plan Small Bowel Capsule Endoscopy today. RTC tomorrow for equipment return. Subjective Gastrointestinal/Abdominal: Reports: no symptoms Objective Last 24 Hour Vital Signs Date Time Temp Pulse Resp B/P (MAP) Pulse Ox O2 Delivery O2 Flow Rate FiO2 11/09/17 10:13 98.1 101 20 106/76 98.1 General Appearance: WD/WN, no apparent distress, alert Cardiovascular: normal rate Respiratory/Chest: normal breath sounds, no respiratory distress Abdominal Exam: normal bowel sounds, non tender, soft Extremities: normal range of motion, non-tender Tara Scott N.P. Nov 09, 2017 11:15
== END 2017-11-09 09:35 | disposition home or self-care (01) ==
LOC: PAN 08:59
DX: R63.4 Abnormal weight loss (principal); R19.7 Diarrhea, unspecified; K50.90 Crohn's disease, unspecified, without complications; F11.20 Opioid dependence, uncomplicated; D64.9 Anemia, unspecified

== ENCOUNTER 2017-11-10 13:53 | Emergency (ER) | payer MEDICAID, MEDICARE ==
[~2017-11-10] VITALS: Ht 167.6 cm; Wt 58.5 kg
[2017-11-10 18:30] VITALS: BP 138/70
[2017-11-10 18:49] LABS: EOSINOPHILS % (AUTO) 0.1 % (0.0-3.0); HEMATOCRIT 40.3 % (37.0-47.0); HEMOGLOBIN 12.9 G/DL (12.0-16.0); LYMPHOCYTES % (AUTO) 14.1 % (20.0-45.0); MEAN CORPUSCULAR VOLUME 94 FL (80-99); MONOCYTES % (AUTO) 3.4 % (1.0-10.0); NEUTROPHILS % (AUTO) 81.5 % (45.0-75.0); PLATELET COUNT 274 K/UL (150-450); RED CELL DISTRIBUTION WIDTH 15.8 % (11.6-14.8); WHITE BLOOD COUNT 12.9 K/UL (4.8-10.8)
[2017-11-10 18:51] LABS: ANION GAP 8 mmol/L (5-15); BLOOD UREA NITROGEN 17 mg/dL (7-18); CALCIUM 9.4 MG/DL (8.5-10.1); CARBON DIOXIDE 27 MMOL/L (21-32); CHLORIDE 101 MMOL/L (98-107); CREATININE 0.8 MG/DL (0.55-1.30); POTASSIUM 3.7 MMOL/L (3.5-5.1); SODIUM 136 MMOL/L (136-145)
[2017-11-10 19:05] LABS: ALANINE AMINOTRANSFERASE 20 U/L (12-78); ALBUMIN 2.7 G/DL (3.4-5.0); ALBUMIN/GLOBULIN RATIO 0.4 (1.0-2.7); ALKALINE PHOSPHATASE 135 U/L (46-116); ASPARTATE AMINO TRANSFERASE 40 U/L (15-37); BILIRUBIN,TOTAL 0.2 MG/DL (0.2-1.0); CKMB 1.4 NG/ML (0.0-3.6); CREATINE KINASE 146 U/L (26-308)
[2017-11-10] MEDS ORDERED: HYDROmorphone 1mg/ml Carpuject IM ONE (19:30)
--- NOTE | 2017-11-10 20:13 | Emergency Room Report ---
History of Present Illness General Chief Complaint: Pain Source: Patient Present Illness HPI This patient complains of abdominal pain. The patient has a history of chronic abdominal pain. She is being followed by a sieve grader tender Dr. Gallegos. She states she has a history of Crohn's disease. However, Dr. Gallegos states that her Crohn's disease has not been active. She underwent a colonoscopy one month ago that was unremarkable. Yesterday she took the pill camera to further assess her small bowel. Dr. Gallegos states that this patient has chronic pain in his often in his office for pain management. She does have a morphine pump that she states doesn't work. She denies fever or chills. She denies nausea or vomiting. She denies chest pain or shortness of breath. She has no other complaints. Allergies: Coded Allergies: No Known Allergies (Verified , 05/21/06) Patient History Past Medical History: see triage record, HTN, ME, CAD, other - Chron's Social History: Denies: smoking, alcohol use, drug use Reviewed Nursing Documentation: PMH: Agreed; PSxH: Agreed Nursing Documentation-PMH Hx Cardiac Problems: Yes - ME Hx Hypertension: No Hx Pacemaker: No Hx Asthma: Yes Hx COPD: Yes Hx Diabetes: No Hx Cancer: No Hx Gastrointestinal Problems: Yes - Crohn's disease, C. Diff Hx Dialysis: No Hx Neurological Problems: Yes Hx Cerebrovascular Accident: Yes - 2004 Hx Seizures: Yes Hx Epilepsy: Yes Hx Vertigo: Yes Hx Dizziness: Yes Hx Syncope: Yes Hx Headaches: Yes Hx Weakness: Yes Hx Fatigue: Yes Review of Systems All Other Systems: negative except mentioned in HPI Physical Exam Vital Signs Date Time Temp Pulse Resp B/P (MAP) Pulse Ox O2 Delivery O2 Flow Rate FiO2 11/10/17 14:00 99.0 103 17 144/72 97 Room Air 99.0 Sp02 EP Interpretation: reviewed, normal General Appearance: no apparent distress, alert, GCS 15, non-toxic Head: normocephalic, atraumatic Eyes: bilateral eye normal inspection, bilateral eye PERRL ENT: hearing grossly normal, normal pharynx, no angioedema, normal voice Neck: full range of motion, supple/symm/no masses Respiratory: chest non-tender, lungs clear, normal breath sounds, speaking full sentences Cardiovascular #1: regular rate, rhythm, no edema Gastrointestinal: normal bowel sounds, soft, non-distended, no guarding, no rebound, tenderness - TTP in the LLQ Rectal: deferred Musculoskeletal: back normal, gait/station normal, normal range of motion Neurologic: alert, oriented x3, responsive, motor strength/tone normal, sensory intact, speech normal Psychiatric: judgement/insight normal, memory normal, mood/affect normal, no suicidal/homicidal ideation Skin: normal color, no rash, warm/dry, well hydrated Medical Decision Making Diagnostic Impression: Primary Impression: Abdominal pain ER Course Patient has chronic abdominal pain. The patient has been seen by Dr. Gallegos yesterday. She underwent pill camera. Patient does have a slight elevation in her white blood cell count. I discussed the case with the patient herself and Dr. Gallegos. Dr. Gallegos did not think this patient needed a CT of the abdomen and pelvis. The patient also states she has had many CTs and didn't want to undergo CT again. I offered the patient to be admitted for monitoring and control of her abdominal pain. However, the patient requested she get IM pain medication and go home. The patient states she will follow-up tomorrow with Dr. Gallegos. The patient is given close return precautions and follow-up instructions. Laboratory Tests Test 11/10/17 18:20 White Blood Count 12.9 K/UL (4.8-10.8) H Red Blood Count 4.30 M/UL (4.20-5.40) Hemoglobin 12.9 G/DL (12.0-16.0) Hematocrit 40.3 % (37.0-47.0) Mean Corpuscular Volume 94 FL (80-99) Mean Corpuscular Hemoglobin 30.1 PG (27.0-31.0) Mean Corpuscular Hemoglobin Concent 32.1 G/DL (32.0-36.0) Red Cell Distribution Width 15.8 % (11.6-14.8) H Platelet Count 274 K/UL (150-450) Mean Platelet Volume 6.8 FL (6.5-10.1) Neutrophils (%) (Auto) 81.5 % (45.0-75.0) H Lymphocytes (%) (Auto) 14.1 % (20.0-45.0) L Monocytes (%) (Auto) 3.4 % (1.0-10.0) Eosinophils (%) (Auto) 0.1 % (0.0-3.0) Basophils (%) (Auto) 1.0 % (0.0-2.0) Erythrocyte Sedimentation Rate Pending Prothrombin Time 10.9 SEC (9.30-11.50) Prothrombin Time INR 1.0 (0.9-1.1) PTT 31 SEC (23-33) Sodium Level 136 MMOL/L (136-145) Potassium Level 3.7 MMOL/L (3.5-5.1) Chloride Level 101 MMOL/L (98-107) Carbon Dioxide Level 27 MMOL/L (21-32) Anion Gap 8 mmol/L (5-15) Blood Urea Nitrogen 17 mg/dL (7-18) Creatinine 0.8 MG/DL (0.55-1.30) Estimate Glomerular Filtration Rate > 60 mL/min (>60) Glucose Level 99 MG/DL (74-106) Lactic Acid Level 2.00 mmol/L (0.66-2.22) Calcium Level 9.4 MG/DL (8.5-10.1) Total Bilirubin 0.2 MG/DL (0.2-1.0) Aspartate Amino Transferase (AST) 40 U/L (15-37) H Alanine Aminotransferase (ALT) 20 U/L (12-78) Alkaline Phosphatase 135 U/L (46-116) H Total Creatine Kinase 146 U/L (26-308) Creatine Kinase MB 1.4 NG/ML (0.0-3.6) Creatine Kinase MB Relative Index 0.9 C-Reactive Protein, Quantitative 2.2 mg/dL (0.00-0.90) H Total Protein 9.5 G/DL (6.4-8.2) H Albumin 2.7 G/DL (3.4-5.0) L Globulin 6.8 g/dL Albumin/Globulin Ratio 0.4 (1.0-2.7) L EKG Diagnostic Results Rate: normal Rhythm: NSR ST Segments: no acute changes Rhythm Strip Diag. Results EP Interpretation: yes Rate: 90's Rhythm: NSR, no PVC's, no ectopy Other X-Ray Diagnostic Results Other X-Ray Diagnostic Results : X-Ray ordered: KUB # of Views/Limited Vs Complete: 1 View Indication: Pain EP Interpretation: Yes Interpretation: nonspecific bowel gas, other - Baseline for this patient. Impression: No acute disease Electronically Signed by: Gege Last Vital Signs Date Time Temp Pulse Resp B/P (MAP) Pulse Ox O2 Delivery O2 Flow Rate FiO2 11/10/17 18:30 99.0 99 17 138/70 97 Room Air 99.0 Status: improved Disposition: HOME, SELF-CARE Condition: Improved Referrals: BAYRON BENEDICT (PCP) Patient Instructions: Chronic Pain AAYUSH HOWARD D.O. Nov 10, 2017 20:13
[2017-11-10 20:50] VITALS: BP 130/78
--- NOTE | 2017-11-11 08:45 | Diagnostic Imaging Report ---
Indication: Abdominal pain Technique: Supine view of the abdomen Comparison: September 06, 2016 Findings: Again demonstrated is a spinal pain pump, reservoir the left buttock. Mildly dilated gas-filled small bowel loops are Similar to the previous exam. There is evidence of prior anterior abdominal wall hernia surgery Impression: Mildly dilated gas-filled small bowel loops, similar to previous exam of September 06 2016. As discussed on earlier CT scans, this may represent small bowel obstruction or be functional in nature, related to multiple prior bowel surgeries. Other stable findings as noted
[2017-11-11] MEDS ORDERED: MULTIVITAMINS1 EAC2 ORAL (18:07)
[2017-11-11] MEDS ORDERED: ATIVAN1 MG ORAL (18:08)
--- NOTE | 2017-11-11 21:22 | Cardiology Report ---
APPROVED REPORT EKG Measurement Heart [id number] Normal sinus rhythm Possible Left atrial enlargement Septal infarct, age undetermined Abnormal ECG
== END 2017-11-10 20:50 | disposition home or self-care (01) ==
LOC: EMR 15:18 → CANBEDREQ 19:30 → EMR 20:50
DX: R10.9 Unspecified abdominal pain (principal); G89.29 Other chronic pain; Z87.19 Personal history of other diseases of the digestive system; J44.9 Chronic obstructive pulmonary disease, unspecified; Z86.73 Personal history of transient ischemic attack (TIA), and cerebral infarction without residual deficits
CPT/HCPCS: 36415; 74018; 80053; 82550; 82553; 83605; 85025; 85610; 85651; 85730; 86140; 87040; 93005; 96372; 99283; J1170

== ENCOUNTER 2017-11-11 13:29 | Inpatient (IN) | payer MEDICARE, MEDICAID ==
[~2017-11-11] VITALS: Ht 167.6 cm; Wt 58.5 kg
[2017-11-11] MEDS ORDERED: Sodium Chloride 500ML 500 ML IV ONE (13:53)
[2017-11-11] MEDS ORDERED: HYDROmorphone 1mg/ml Carpuject IVP ONE ×2 (14:00→17:15)
[2017-11-11 15:07] LABS: BASOPHILS % (AUTO) 0.7 % (0.0-2.0); EOSINOPHILS % (AUTO) 0.8 % (0.0-3.0); HEMATOCRIT 38.6 % (37.0-47.0); HEMOGLOBIN 12.6 G/DL (12.0-16.0); LYMPHOCYTES % (AUTO) 27.3 % (20.0-45.0); MEAN CORPUSCULAR VOLUME 92 FL (80-99); MONOCYTES % (AUTO) 8.7 % (1.0-10.0); NEUTROPHILS % (AUTO) 62.6 % (45.0-75.0); PLATELET COUNT 258 K/UL (150-450); RED BLOOD COUNT 4.17 M/UL (4.20-5.40); RED CELL DISTRIBUTION WIDTH 15.5 % (11.6-14.8); WHITE BLOOD COUNT 11.3 K/UL (4.8-10.8)
[2017-11-11 15:14] VITALS: BP 113/72
--- NOTE | 2017-11-11 15:17 | Emergency Room Report ---
History of Present Illness General Chief Complaint: Abdominal Pain Source: Patient Present Illness HPI 66-year-old female presents ED for evaluation. Patient presenting with abdominal pain. Left-sided, sharp, nonradiating, 9 out of 10. Patient was here yesterday for similar pain. Patient was given pain medications and asked to be discharged. Patient returns today because the pain is getting worse. Referred here by PMD. History of Crohn's disease and colitis. Denies fevers or chills. Notes some diarrhea. Denies chest pain or shortness of breath. No other aggravating relieving factors. Denies any other associated symptoms Allergies: Coded Allergies: No Known Allergies (Verified , 05/21/06) Patient History Past Medical History: AR, asthma, COPD, CVA/TIA, other - crohns Past Surgical History: none Pertinent Family History: none Social History: Denies: smoking, alcohol use, drug use Last Menstrual Period: Post Now: No Immunizations: UTD Reviewed Nursing Documentation: PMH: Agreed; PSxH: Agreed Nursing Documentation-PMH Hx Cardiac Problems: Yes - AR Hx Hypertension: No Hx Pacemaker: No Hx Asthma: Yes Hx COPD: Yes Hx Diabetes: No Hx Cancer: No Hx Gastrointestinal Problems: Yes - Crohn's disease, C. Diff Hx Dialysis: No Hx Neurological Problems: Yes Hx Cerebrovascular Accident: Yes - 2004 Hx Seizures: Yes Hx Epilepsy: Yes Hx Vertigo: Yes Hx Dizziness: Yes Hx Syncope: Yes Hx Headaches: Yes Hx Weakness: Yes Hx Fatigue: Yes Review of Systems All Other Systems: negative except mentioned in HPI Physical Exam Vital Signs Date Time Temp Pulse Resp B/P (MAP) Pulse Ox O2 Delivery O2 Flow Rate FiO2 11/11/17 13:45 99.3 100 20 108/70 98 Room Air 99.3 Sp02 EP Interpretation: reviewed, normal General Appearance: no apparent distress, alert, GCS 15, non-toxic Head: normocephalic, atraumatic Eyes: bilateral eye normal inspection, bilateral eye PERRL ENT: hearing grossly normal, normal pharynx, no angioedema, normal voice Neck: full range of motion, supple/symm/no masses Respiratory: chest non-tender, lungs clear, normal breath sounds, speaking full sentences Cardiovascular #1: regular rate, rhythm, no edema Cardiovascular #2: 2+ carotid (R), 2+ carotid (L), 2+ radial (R), 2+ radial (L) , 2+ dorsalis pedis (R), 2+ dorsalis pedis (L) Gastrointestinal: normal bowel sounds, soft, non-distended, no guarding, no rebound, tenderness Rectal: deferred Genitourinary: normal inspection, no CVA tenderness Musculoskeletal: back normal, gait/station normal, normal range of motion, non- tender Neurologic: alert, oriented x3, responsive, motor strength/tone normal, sensory intact, speech normal Psychiatric: judgement/insight normal, memory normal, mood/affect normal, no suicidal/homicidal ideation Reflexes: 3+ bicep (R), 3+ bicep (L), 3+ tricep (R), 3+ tricep (L), 3+ knee (R) , 3+ knee (L) Skin: normal color, no rash, warm/dry, well hydrated Lymphatic: no adenopathy Medical Decision Making Diagnostic Impression: Primary Impression: Intractable abdominal pain Additional Impression: Crohn's disease Qualified Codes: K50.919 - Crohn's disease, unspecified, with unspecified complications ER Course Hospital Course 66-year-old female presents ED complaining of abdominal pain, diarrhea. History of Crohn's Differential diagnoses include: BPH, cystitis, pyelonephritis, kidney stone Clinical course Patient placed on stretcher. alarm security or surveillance monitor. After initial history and physical I ordered labs, IV fluids, UA, pain medication Labs - minimal leukocytosis, hb/hct stable, electrolytes ok Patient has had multiple CT scans in the past. Declined CT at this time. History of chronic pain. Was seen here yesterday and offered admission but declined at the time. Patient referred by PMD who agrees the patient requires admission at this time Case discussed with Dr. Benedict and he agreed to accept the patient to his service for further care and support I feel this is a highly complex case requiring extensive working including EKG/ Rhythm strip, Xray/CT/US, Blood/urine lab work, repeat exams while in ED, and administration of strong opiates/narcotics for pain control, admission to hospital or close patient follow up. Diagnosis - intractable abd pain, crohns disease Patient admitted to floor in serious condition Labs Test 11/11/17 14:25 White Blood Count 11.3 K/UL (4.8-10.8) Red Blood Count 4.17 M/UL (4.20-5.40) Hemoglobin 12.6 G/DL (12.0-16.0) Hematocrit 38.6 % (37.0-47.0) Mean Corpuscular Volume 92 FL (80-99) Mean Corpuscular Hemoglobin 30.1 PG (27.0-31.0) Mean Corpuscular Hemoglobin Concent 32.5 G/DL (32.0-36.0) Red Cell Distribution Width 15.5 % (11.6-14.8) Platelet Count 258 K/UL (150-450) Mean Platelet Volume 7.2 FL (6.5-10.1) Neutrophils (%) (Auto) 62.6 % (45.0-75.0) Lymphocytes (%) (Auto) 27.3 % (20.0-45.0) Monocytes (%) (Auto) 8.7 % (1.0-10.0) Eosinophils (%) (Auto) 0.8 % (0.0-3.0) Basophils (%) (Auto) 0.7 % (0.0-2.0) Sodium Level 139 MMOL/L (136-145) Potassium Level 3.2 MMOL/L (3.5-5.1) Chloride Level 105 MMOL/L (98-107) Carbon Dioxide Level 27 MMOL/L (21-32) Anion Gap 7 mmol/L (5-15) Blood Urea Nitrogen 16 mg/dL (7-18) Creatinine 0.8 MG/DL (0.55-1.30) Estimat Glomerular Filtration Rate > 60 mL/min (>60) Glucose Level 114 MG/DL (74-106) Calcium Level 9.2 MG/DL (8.5-10.1) Total Bilirubin 0.2 MG/DL (0.2-1.0) Aspartate Amino Transf (AST/SGOT) 37 U/L (15-37) Alanine Aminotransferase (ALT/SGPT) 17 U/L (12-78) Alkaline Phosphatase 118 U/L (46-116) Total Protein 8.5 G/DL (6.4-8.2) Albumin 2.3 G/DL (3.4-5.0) Globulin 6.2 g/dL Albumin/Globulin Ratio 0.4 (1.0-2.7) Lipase 56 U/L (73-393) Last Vital Signs Date Time Temp Pulse Resp B/P (MAP) Pulse Ox O2 Delivery O2 Flow Rate FiO2 11/11/17 13:45 99.3 100 20 108/70 98 Room Air 99.3 Status: improved Disposition: ADMITTED INPATIENT Condition: Serious Referrals: BAYRON BENEDICT (PCP) Nick Montaño MD Nov 11, 2017 15:16
[2017-11-11 15:22] LABS: ANION GAP 7 mmol/L (5-15); BLOOD UREA NITROGEN 16 mg/dL (7-18); CALCIUM 9.2 MG/DL (8.5-10.1); CARBON DIOXIDE 27 MMOL/L (21-32); CHLORIDE 105 MMOL/L (98-107); CREATININE 0.8 MG/DL (0.55-1.30); POTASSIUM 3.2 MMOL/L (3.5-5.1); SODIUM 139 MMOL/L (136-145)
[2017-11-11 15:27] LABS: ALANINE AMINOTRANSFERASE 17 U/L (12-78); ALBUMIN 2.3 G/DL (3.4-5.0); ALBUMIN/GLOBULIN RATIO 0.4 (1.0-2.7); ALKALINE PHOSPHATASE 118 U/L (46-116); ASPARTATE AMINO TRANSFERASE 37 U/L (15-37); BILIRUBIN,TOTAL 0.2 MG/DL (0.2-1.0)
[2017-11-11] MEDS ORDERED: Promethazine HCl 25 MG in NS 55 ML IV PRN (15:30)
[2017-11-11] MEDS ORDERED: LORazepam Inj 2mg/ml 1ml IV PRN (15:30)
[2017-11-11] MEDS ORDERED: Mylanta II UD 30ml ORAL PRN (15:30)
[2017-11-11] MEDS ORDERED: Miralax 17gm pkt ORAL PRN (15:30)
[2017-11-11] MEDS ORDERED: Promethazine HCl 12.5 MG in NS 55 ML IV PRN (15:30)
[2017-11-11] MEDS ORDERED: Nitroglycerin Subl 0.4mg tab SL PRN (15:30)
[2017-11-11] MEDS ORDERED: Metoclopramide 10mg/2ml Inj IVP PRN (15:30)
[2017-11-11 15:48] LABS: APPEARANCE,URINE CLEAR; BILIRUBIN, URINE NEGATIVE (NEGATIVE); GLUCOSE, URINE (UA) NEGATIVE (NEGATIVE); KETONES,URINE NEGATIVE (NEGATIVE); LEUKOCYTE ESTERASE ,URINE 3+ (NEGATIVE); NITRITE,URINE NEGATIVE (NEGATIVE); PH,URINE 6 (4.5-8.0); PROTEIN,URINE 2+ (NEGATIVE); UROBILINOGEN,URINE 1 MG/DL (0.0-1.0)
[2017-11-11 15:54] LABS: COLOR,URINE YELLOW
[2017-11-11] MEDS ORDERED: Morphine Sulfate 4mg/ml Inj IVP ONE (17:30)
[2017-11-11 17:39] VITALS: BP 147/82
[2017-11-11 18:00] VITALS: BP 141/88
[2017-11-11] MEDS ORDERED: MULTIVITAMINS1 EAC2 ORAL (18:07)
[2017-11-11] MEDS ORDERED: ATIVAN1 MG ORAL (18:08)
[2017-11-11] MEDS: D5 1/2NS 1,000 ML IV SCH (18:54)
[2017-11-11 20:00] VITALS: BP 118/84
[2017-11-11] MEDS: Atorvastatin 20mg tab ORAL SCH (21:08)
[2017-11-11] MEDS: Theophylline ER 100mg ORAL SCH (21:09)
[2017-11-11] MEDS: Topiramate 25mg tab ORAL SCH (21:09)
[2017-11-11] MEDS: TraZODone 100mg tab ORAL SCH (21:09)
[2017-11-11] MEDS: Heparin 5000 units/ml inj SUBQ SCH (21:11)
[2017-11-11] MEDS: Morphine Sulfate 4mg/ml Inj IVP PRN (21:21)
[2017-11-12] VITALS: BP 113/68
[2017-11-12] MEDS: Morphine Sulfate 4mg/ml Inj IVP PRN ×5 (03:45→21:53)
[2017-11-12 04:58] LABS: BASOPHILS % (AUTO) 0.7 % (0.0-2.0); EOSINOPHILS % (AUTO) 1.6 % (0.0-3.0); HEMOGLOBIN 12.4 G/DL (12.0-16.0); LYMPHOCYTES % (AUTO) 33.9 % (20.0-45.0); MEAN CORPUSCULAR VOLUME 92 FL (80-99); MONOCYTES % (AUTO) 10.8 % (1.0-10.0); PLATELET COUNT 242 K/UL (150-450); RED BLOOD COUNT 4.14 M/UL (4.20-5.40); RED CELL DISTRIBUTION WIDTH 15.3 % (11.6-14.8); WHITE BLOOD COUNT 9.5 K/UL (4.8-10.8)
[2017-11-12] MEDS: D5 1/2NS 1,000 ML IV SCH ×2 (05:18→21:23)
[2017-11-12 05:24] LABS: ALANINE AMINOTRANSFERASE 18 U/L (12-78); ALBUMIN 2.2 G/DL (3.4-5.0); ALBUMIN/GLOBULIN RATIO 0.4 (1.0-2.7); ALKALINE PHOSPHATASE 112 U/L (46-116); AMYLASE 49 U/L (25-115); ANION GAP 4 mmol/L (5-15); ASPARTATE AMINO TRANSFERASE 35 U/L (15-37); BILIRUBIN,TOTAL 0.2 MG/DL (0.2-1.0); BLOOD UREA NITROGEN 11 mg/dL (7-18); CARBON DIOXIDE 27 MMOL/L (21-32); CHLORIDE 105 MMOL/L (98-107); CREATININE 0.8 MG/DL (0.55-1.30); POTASSIUM 3.9 MMOL/L (3.5-5.1); SODIUM 136 MMOL/L (136-145)
[2017-11-12 08:00] VITALS: BP 127/77
[2017-11-12] MEDS: Topiramate 25mg tab ORAL SCH ×2 (09:00→21:28)
[2017-11-12] MEDS: Pantoprazole Inj IV SCH (09:00)
[2017-11-12] MEDS: DULoxetine 30mg cap ORAL SCH (09:00)
[2017-11-12] MEDS: Theophylline ER 100mg ORAL SCH ×2 (09:00→21:24)
[2017-11-12] MEDS: Heparin 5000 units/ml inj SUBQ SCH ×2 (09:02→21:26)
[2017-11-12] MEDS ORDERED: Simethicone 80mg tab ORAL PRN (10:00)
--- NOTE | 2017-11-12 10:02 | General Progress Note ---
Assessment/Plan Assessment/Plan (1) Chronic abdominal pain (2) Chronic pancreatitis (3) Crohn's disease (4) Herniated nucleus pulposus, lumbar (5) Lumbar spondylosis (6) Radiculopathy of lumbar region Pt will be continued on Morphine and pt has intrathecal pump. We will start Neurontint 300mg PO 1 cap TID. Pt was d/w Dr. Malhotra and he concurred. Subjective Date patient seen: Nov 12, 2017 Time patient seen: 09:00 - am Constitutional: Reports: weakness HEENT: Reports: no symptoms Cardiovascular: Reports: no symptoms Respiratory: Reports: no symptoms Gastrointestinal/Abdominal: Reports: abdominal pain Genitourinary: Reports: no symptoms Neurologic/Psychiatric: Reports: weakness Endocrine: Reports: no symptoms Hematologic/Lymphatic: Reports: no symptoms Allergies: Coded Allergies: No Known Allergies (Verified , 05/21/06) Subjective Patient is a known patient from Dr. Malhotra and prior admissions. She has been admitted due to severe abdominal pain on the RUQ being seen by GI. At this time has Intrathecal pain pump and a Morphine 2mg IV Q4H PRN severe pain with minimal relief. I d/w her about Neurontin and she understands. Objective Last 24 Hour Vital Signs Date Time Temp Pulse Resp B/P (MAP) Pulse Ox O2 Delivery O2 Flow Rate FiO2 11/12/17 08:17 99.3 11/12/17 08:00 99.3 88 12 127/77 95 Room Air 99.3 11/12/17 07:47 99.6 11/12/17 00:00 99.6 88 19 113/68 100 Room Air 99.6 11/11/17 20:00 99.3 92 19 118/84 100 Room Air 99.3 11/11/17 18:00 99.8 95 20 141/88 96 Room Air 99.8 11/11/17 17:45 100.2 92 20 147/82 96 Room Air 100.2 11/11/17 17:39 100.2 92 20 147/82 96 Room Air 100.2 11/11/17 17:36 98.9 11/11/17 15:14 98.9 81 20 113/72 98 Room Air 98.9 11/11/17 13:45 99.3 100 20 108/70 98 Room Air 99.3 Intake and Output 11/11/17 11/12/17 19:00 07:00 Intake Total 0 ml 750 ml Balance 0 ml 750 ml Intake Oral 0 ml IV Total 750 ml # Voids 3 Laboratory Tests 11/11/17 14:25: White Blood Count 11.3H, Red Blood Count 4.17L, Hemoglobin 12.6, Hematocrit 38.6 , Mean Corpuscular Volume 92, Mean Corpuscular Hemoglobin 30.1, Mean Corpuscular Hemoglobin Concent 32.5, Red Cell Distribution Width 15.5H, Platelet Count 258, Mean Platelet Volume 7.2, Neutrophils (%) (Auto) 62.6, Lymphocytes (%) (Auto) 27.3, Monocytes (%) (Auto) 8.7, Eosinophils (%) (Auto) 0.8, Basophils (%) (Auto) 0.7, Sodium Level 139, Potassium Level 3.2L, Chloride Level 105, Carbon Dioxide Level 27, Anion Gap 7, Blood Urea Nitrogen 16, Creatinine 0.8, Estimat Glomerular Filtration Rate > 60, Glucose Level 114H, Calcium Level 9.2, Total Bilirubin 0.2, Aspartate Amino Transf (AST/SGOT) 37, Alanine Aminotransferase (ALT/SGPT) 17, Alkaline Phosphatase 118H, Total Protein 8.5H, Albumin 2.3L, Globulin 6.2, Albumin/Globulin Ratio 0.4L, Lipase 56L 11/11/17 15:30: Urine Color Yellow, Urine Appearance Clear, Urine pH 6, Urine Specific [place] 1.015, Urine Protein 2+H, Urine Glucose (UA) Negative, Urine Ketones Negative, Urine Occult Blood 3+H, Urine Nitrite Negative, Urine Bilirubin Negative, Urine Urobilinogen 1H, Urine Leukocyte Esterase 3+H, Urine RBC 10-15H, Urine WBC 2-4, Urine Squamous Epithelial Cells Few, Urine Bacteria Few 11/12/17 04:27: White Blood Count 9.5, Red Blood Count 4.14L, Hemoglobin 12.4, Hematocrit 38.0, Mean Corpuscular Volume 92, Mean Corpuscular Hemoglobin 29.9, Mean Corpuscular Hemoglobin Concent 32.6, Red Cell Distribution Width 15.3H, Platelet Count 242, Mean Platelet Volume 6.9, Neutrophils (%) (Auto) 53.0, Lymphocytes (%) (Auto) 33.9, Monocytes (%) (Auto) 10.8H, Eosinophils (%) (Auto) 1.6, Basophils (%) ( Auto) 0.7, Sodium Level 136, Potassium Level 3.9, Chloride Level 105, Carbon Dioxide Level 27, Anion Gap 4L, Blood Urea Nitrogen 11, Creatinine 0.8, Estimat Glomerular Filtration Rate > 60, Glucose Level 98, Calcium Level 9.0, Total Bilirubin 0.2, Aspartate Amino Transf (AST/SGOT) 35, Alanine Aminotransferase ( ALT/SGPT) 18, Alkaline Phosphatase 112, Total Protein 8.2, Albumin 2.2L, Globulin 6.0, Albumin/Globulin Ratio 0.4L, Lipase 52L, Activated Partial Thromboplast Time 29, Amylase Level 49 Height (Feet): 5 Height (Inches): 6.00 Weight (Pounds): 129 Objective General Appearance: no apparent distress, alert EENT: normal ENT inspection, TMs normal Neck: normal alignment, supple Cardiovascular: normal rate, regular rhythm Respiratory/Chest: decreased breath sounds Abdomen: tender, distended, intrathecal pump palpated Extremities: non-tender Edema: no edema noted Neurologic: alert, oriented x 3 Skin: warm/dry JOSE ARREDONDO PDawna Nov 12, 2017 10:02
[2017-11-12] MEDS ORDERED: Naloxegol Oxalate 25mg tab ORAL SCH (10:15)
--- NOTE | 2017-11-12 10:31 | Diagnostic Imaging Report ---
Indication: Abdominal pain Technique: US ABD Complete Comparison: CT abdomen 10/07/2017; abdominal ultrasound 09/04/2016. Findings: Imaged portions of the pancreatic head are grossly unremarkable. The body and tail are not well seen. Liver is homogenous in echogenicity. No focal hepatic mass lesion is appreciated sonographically. The liver is borderline enlarged, with irregular measuring 17 cm in length. Portal and hepatic veins appear patent. No appreciable biliary ductal dilatation. The gallbladder is contracted, with apparent gallbladder wall thickening related to contraction. No definite cholelithiasis or gallbladder sludge seen. No pericholecystic fluid. No intrahepatic biliary ductal dilatation. Common bile duct measures 3.7 mm. Kidneys demonstrate normal parenchymal thickness and echogenicity. No hydronephrosis or sonographically appreciable renal stones. Spleen is unremarkable in appearance. No appreciable ascites. Portions of the aorta are not well seen. There is question of bilateral pleural effusions. Impression: Contracted/undistended gallbladder. No apparent gallstones. No pericholecystic fluid. Mild hepatomegaly with the right lobe measuring up to 17 cm in length. Probable bilateral pleural effusions. Portions of aorta obscured. This corresponds with the [facility] preliminary report.
--- NOTE | 2017-11-12 10:44 | GI Initial Consult Note ---
Tara Scott N.PDeng 11/12/17 1044: History of Present Illness General Date patient seen: Nov 12, 2017 Time patient seen: 10:32 Reason for Hospitalization: Abdominal Pain Referring physician: BAYRON BENEDICT Reason for Consultation: ABDOMINAL PAIN Present Illness HPI 66-year-old female, history of multiple abdominal surgeries in the past, COPD/ asthma, recent weight loss, presenting with abdominal pain. Patient was seen earlier this week in clinic s/p small bowel capsule endoscopy. Day after her procedure, the patient began having intractable abdominal pain and presented to the ED. Patient seen today, awake A&Ox4 c/o of LUQ abdominal pain and distention, with generalized tenderness on palpation all quads. States she has not recently been passing gas. Pt has a morphine pump for chronic pain implanted is being followed by Pain management. Hx of chronic abdominal pain and has been known to have OIC. Patient has had multiple surgeries in the past for bowel obstruction as well as lysis of adhesions. Home Meds Reported Medications Lorazepam* (ATIVAN*) 1 Mg Tablet, 1 MG ORAL THREE TIMES A DAY, TAB 11/11/17 Multivitamins* (MULTIVITAMINS*) 1 Each Tablet, 1 TAB ORAL DAILY, TAB 0 Refills 11/11/17 Duloxetine Hcl* (CYMBALTA*) 60 Mg Capsule.dr, 60 MG ORAL DAILY, CAP 10/13/17 Theophylline (THEODUR*) 100 Mg Tab.er.12h, 100 MG ORAL TWICE A DAY, #30 TAB 0 Refills 10/13/17 Fluconazole (FLUCONAZOLE) 200 Mg Tablet, 200 MG ORAL DAILY for 11 Days, #7 TAB 0 Refills 10/13/17 Atorvastatin Calcium* (LIPITOR*) 40 Mg Tablet, 40 MG ORAL BEDTIME, #30 TAB 0 Refills 10/13/17 Trazodone Hcl* (DESYREL*) 100 Mg Tablet, 200 MG ORAL BEDTIME, TAB 10/13/17 Mesalamine (ASACOL HD) 800 Mg Tablet.dr, 1600 MG ORAL THREE TIMES A DAY, TAB Do not break outer coating 10/13/17 Mirtazapine (REMERON) 30 Mg Tab.rapdis, 30 MG ORAL BEDTIME, TAB 06/26/17 Quetiapine Fumarate (SEROQUEL) 400 Mg Tablet, 200 MG ORAL QHS, #15 TAB 0 Refills 04/30/17 Pantoprazole* (PROTONIX*) 40 Mg Tablet.dr, 40 MG ORAL DAILY, TAB 04/30/17 Levothyroxine Sodium* (LEVOTHYROXINE SODIUM*) 75 Mcg Tablet, 75 MCG ORAL ACBREAKFAST, TAB Take in the morning on an empty stomach, at least 30 minutes before food. 04/30/17 Al Hydroxide/mg Hydroxide (Mag-Al Plus Suspension) 30 Ml Oral.susp, 30 ML PO Q6HR for Constipation, ML 04/30/17 Acetaminophen* (ACETAMINOPHEN 325MG TABLET*) 325 Mg Tablet, 325 MG ORAL Q4H PRN for Fever/Headache/Mild Pain, TAB 04/30/17 Aspirin* (ASPIR 81*) 81 Mg Tablet.dr, 81 MG ORAL DAILY, TAB 12/22/16 Linaclotide (LINZESS) 145 Mcg Capsule, 145 MCG PO DAILY, CAP 10/15/16 Montelukast Sodium* (MONTELUKAST SODIUM*) 10 Mg Tablet, 10 MG ORAL DAILY, TAB 09/03/16 Bupropion Hcl* (BUPROPION HCL*) 100 Mg Tablet, 100 MG ORAL DAILY, TAB 09/03/16 Topiramate* (TOPAMAX*) 25 Mg Tablet, 25 MG ORAL TWICE A DAY, #60 TAB 0 Refills 07/19/16 Levetiracetam* (LEVETIRACETAM*) 500 Mg Tablet, 1000 MG ORAL TID, #60 TAB 0 Refills 07/19/16 Diphenhydramine HCl (Benadryl) 25 Mg Capsule, 25 MG PO Q6HR PRN for Itching, CAP 07/19/16 Discontinued Reported Medications Levofloxacin-D5w 500 Mg/100 Ml* (LEVOFLOXACIN-D5W 500 MG/100 ML*) 500 Mg/100 Ml Piggyback, 500 MG IVPB Q24H, BAG 10/13/17 Metronidazole* (FLAGYL*) 250 Mg Tablet, 200 MG ORAL DAILY for 11 Days, TAB 10/13/17 Levothyroxine Sodium (SYNTHROID) 137 Mcg Tablet, 75 MCG ORAL DAILY, TAB Take in the morning on an empty stomach, at least 30 minutes before food. 10/13/17 Zolpidem Tartrate* (AMBIEN*) 5 Mg Tablet, 5 MG ORAL BEDTIME PRN for Insomnia, TAB 10/07/17 Temazepam* (RESTORIL*) 15 Mg Capsule, 15 MG ORAL BEDTIME PRN for Insomnia, CAP 04/30/17 Ondansetron* (ZOFRAN*) 4 Mg Tablet, 4 MG ORAL Q6H PRN for Nausea & Vomiting, TAB 04/30/17 Nitroglycerin (NITROGLYCERIN) 0.4 Mg Tab.subl, 0.4 MG SL [id number] PRN for Prn Chest Pain, TAB 04/30/17 Mesalamine (PENTASA) 500 Mg Capsule.er, 1000 MG ORAL TID, #30 CAP 0 Refills 09/03/16 Risperidone* (RISPERDAL*) 0.5 Mg Tablet, 0.5 MG ORAL BEDTIME, #30 TAB 0 Refills 09/03/16 Ibuprofen* (MOTRIN*) 600 Mg Tablet, 800 MG ORAL THREE TIMES A DAY, #30 TAB 0 Refills 09/03/16 Med list reviewed/reconciled: Yes Allergies: Coded Allergies: No Known Allergies (Verified , 05/21/06) Patient History History Provided By: Patient, Medical Record PMH Narrative Nursing Documentation-[facility] Past Medical History: No History, Except For Hx Cardiac Problems: Yes - IN Hx Hypertension: No Hx Pacemaker: No Hx Asthma: Yes Hx COPD: Yes Hx Diabetes: No Hx Cancer: No Hx Gastrointestinal Problems: Yes - Crohn's disease, C. Diff Hx Dialysis: No Hx Neurological Problems: Yes Hx Cerebrovascular Accident: Yes - 2004 Hx Seizures: Yes Hx Epilepsy: Yes Hx Vertigo: Yes Hx Dizziness: Yes Hx Syncope: Yes Hx Headaches: Yes Hx Weakness: Yes Hx Fatigue: Yes Review of Systems All Other Systems: negative except mentioned in HPI Physical Exam Vital Signs Date Time Temp Pulse Resp B/P (MAP) Pulse Ox O2 Delivery O2 Flow Rate FiO2 11/11/17 13:45 99.3 100 20 108/70 98 Room Air 99.3 Sp02 EP Interpretation: reviewed, normal Labs Laboratory Tests Test 11/11/17 14:25 11/11/17 15:30 11/12/17 04:27 White Blood Count 11.3 K/UL (4.8-10.8) H 9.5 K/UL (4.8-10.8) Red Blood Count 4.17 M/UL (4.20-5.40) L 4.14 M/UL (4.20-5.40) L Hemoglobin 12.6 G/DL (12.0-16.0) 12.4 G/DL (12.0-16.0) Hematocrit 38.6 % (37.0-47.0) 38.0 % (37.0-47.0) Mean Corpuscular Volume 92 FL (80-99) 92 FL (80-99) Mean Corpuscular Hemoglobin 30.1 PG (27.0-31.0) 29.9 PG (27.0-31.0) Mean Corpuscular Hemoglobin Concent 32.5 G/DL (32.0-36.0) 32.6 G/DL (32.0-36.0) Red Cell Distribution Width 15.5 % (11.6-14.8) H 15.3 % (11.6-14.8) H Platelet Count 258 K/UL (150-450) 242 K/UL (150-450) Mean Platelet Volume 7.2 FL (6.5-10.1) 6.9 FL (6.5-10.1) Neutrophils (%) (Auto) 62.6 % (45.0-75.0) 53.0 % (45.0-75.0) Lymphocytes (%) (Auto) 27.3 % (20.0-45.0) 33.9 % (20.0-45.0) Monocytes (%) (Auto) 8.7 % (1.0-10.0) 10.8 % (1.0-10.0) H Eosinophils (%) (Auto) 0.8 % (0.0-3.0) 1.6 % (0.0-3.0) Basophils (%) (Auto) 0.7 % (0.0-2.0) 0.7 % (0.0-2.0) Sodium Level 139 MMOL/L (136-145) 136 MMOL/L (136-145) Potassium Level 3.2 MMOL/L (3.5-5.1) L 3.9 MMOL/L (3.5-5.1) Chloride Level 105 MMOL/L (98-107) 105 MMOL/L (98-107) Carbon Dioxide Level 27 MMOL/L (21-32) 27 MMOL/L (21-32) Anion Gap 7 mmol/L (5-15) 4 mmol/L (5-15) L Blood Urea Nitrogen 16 mg/dL (7-18) 11 mg/dL (7-18) Creatinine 0.8 MG/DL (0.55-1.30) 0.8 MG/DL (0.55-1.30) Estimat Glomerular Filtration Rate > 60 mL/min (>60) > 60 mL/min (>60) Glucose Level 114 MG/DL (74-106) H 98 MG/DL (74-106) Calcium Level 9.2 MG/DL (8.5-10.1) 9.0 MG/DL (8.5-10.1) Total Bilirubin 0.2 MG/DL (0.2-1.0) 0.2 MG/DL (0.2-1.0) Aspartate Amino Transf (AST/SGOT) 37 U/L (15-37) 35 U/L (15-37) Alanine Aminotransferase (ALT/SGPT) 17 U/L (12-78) 18 U/L (12-78) Alkaline Phosphatase 118 U/L (46-116) H 112 U/L (46-116) Total Protein 8.5 G/DL (6.4-8.2) H 8.2 G/DL (6.4-8.2) Albumin 2.3 G/DL (3.4-5.0) L 2.2 G/DL (3.4-5.0) L Globulin 6.2 g/dL 6.0 g/dL Albumin/Globulin Ratio 0.4 (1.0-2.7) L 0.4 (1.0-2.7) L Lipase 56 U/L (73-393) L 52 U/L (73-393) L Urine Color Yellow Urine Appearance Clear Urine pH 6 (4.5-8.0) Urine Specific [place] 1.015 (1.005-1.035) Urine Protein 2+ (NEGATIVE) H Urine Glucose (UA) Negative (NEGATIVE) Urine Ketones Negative (NEGATIVE) Urine Occult Blood 3+ (NEGATIVE) H Urine Nitrite Negative (NEGATIVE) Urine Bilirubin Negative (NEGATIVE) Urine Urobilinogen 1 MG/DL (0.0-1.0) H Urine Leukocyte Esterase 3+ (NEGATIVE) H Urine RBC 10-15 /HPF (0 - 2) H Urine WBC 2-4 /HPF (0 - 2) Urine Squamous Epithelial Cells Few /LPF (NONE/OCC) Urine Bacteria Few /HPF (NONE) Activated Partial Thromboplast Time 29 SEC (23-33) Amylase Level 49 U/L (25-115) General Appearance: well appearing, no apparent distress, alert Head: normocephalic EENT: PERRL/EOMI, normal ENT inspection Neck: supple Respiratory: normal breath sounds, no respiratory distress Cardiovascular: normal rate Gastrointestinal: normal inspection, non tender, soft, normal bowel sounds, non -distended Rectal: deferred Genitourinary: no CVA tenderness Musculoskeletal: normal inspection, back normal Neurologic: normal inspection, alert, oriented x3, responsive Psychiatric: normal inspection, judgement/insight normal, memory normal Skin: normal inspection, normal color, no rash, warm/dry, palpation normal, well hydrated Lymphatic: normal inspection, no adenopathy Current Medications Current Medications Medications (Trade) Dose Ordered Sig/Vaibhav Route PRN Reason Start Time Stop Time Status Last Admin Dose Admin Acetaminophen (Tylenol) 650 mg Q4H PRN ORAL fever 11/11/17 15:30 12/11/17 15:29 Al Hydroxide/Mg Hydroxide (Mylanta II) 30 ml Q6H PRN ORAL dyspepsia 11/11/17 15:30 12/11/17 15:29 Atorvastatin Calcium (Lipitor) 40 mg BEDTIME ORAL 11/11/17 21:00 12/11/17 20:59 11/11/17 21:08 Bupropion HCl (Wellbutrin) 100 mg DAILY ORAL 11/12/17 09:00 12/12/17 08:59 11/12/17 09:00 Dextrose (Dextrose 50%) 50 ml STAT PRN IV Hypoglycemia BS<60mg/dL 11/11/17 15:30 12/11/17 15:29 Dextrose/Sodium Chloride 1,000 ml @ 75 mls/hr [id number] IV 11/11/17 17:00 12/11/17 16:59 11/12/17 05:18 Diphenhydramine HCl (Benadryl) 25 mg Q6H PRN ORAL Itching/Pruritis 11/11/17 15:30 12/11/17 15:29 Duloxetine HCl (Cymbalta) 60 mg DAILY ORAL 11/12/17 09:00 12/12/17 08:59 11/12/17 09:00 Gabapentin (Neurontin) 300 mg THREE TIMES A DAY ORAL 11/12/17 10:00 12/12/17 09:59 11/12/17 10:11 Heparin Sodium (Porcine) (Heparin 5000 units/ml) 5,000 units EVERY 12 HOURS SUBQ 11/11/17 21:00 12/11/17 20:59 11/12/17 09:02 Levetiracetam (Keppra) 1,000 mg Q8HR ORAL 11/11/17 22:00 12/11/17 21:59 11/12/17 05:48 Levothyroxine Sodium (Synthroid) 75 mcg ACBREAKFAST ORAL 11/12/17 06:30 12/12/17 06:29 11/12/17 05:48 Lorazepam (Ativan 2mg/ml 1ml) 1 mg Q4H PRN IV agitation 11/11/17 15:30 11/18/17 15:29 Methylnaltrexone Freedom (Relistor) 12 mg DAILY SUBQ 11/12/17 10:15 12/12/17 10:14 Metoclopramide HCl (Reglan) 10 mg Q6H PRN IVP Unrelieved Severe Nausea 11/11/17 15:30 12/11/17 15:29 Morphine Sulfate (Morphine Sulfate) 2 mg Q4H PRN IVP severe Pain (Pain Scale 7-10) 11/11/17 15:30 11/18/17 15:29 11/12/17 07:47 Nitroglycerin (Ntg) 0.4 mg Q5M X 3 DOSES PRN SL Prn Chest Pain 11/11/17 15:30 12/11/17 15:29 Ondansetron HCl (Zofran) 4 mg Q6H PRN IVP Nausea & Vomiting 11/11/17 15:30 12/11/17 15:29 Pantoprazole (Protonix) 40 mg DAILY IV 11/12/17 09:00 12/12/17 08:59 11/12/17 09:00 Polyethylene Glycol (Miralax) 17 gm HSPRN PRN ORAL Constipation 11/11/17 15:30 12/11/17 15:29 Promethazine HCl 25 mg/Sodium Chloride 56 ml @ 110 mls/hr Q6H PRN IV Refractory N/V 11/11/17 15:30 12/11/17 15:29 Simethicone (Mylicon) 80 mg QIDPRN PRN ORAL gas 11/12/17 10:00 12/12/17 09:59 Temazepam (Restoril) 15 mg HSPRN PRN ORAL Insomnia 11/11/17 15:30 11/18/17 15:29 Theophylline (Erwin-Dur) 100 mg Q12HR ORAL 11/11/17 21:00 12/11/17 20:59 11/12/17 09:00 Topiramate (Topamax) 25 mg EVERY 12 HOURS ORAL 11/11/17 21:00 12/11/17 20:59 11/12/17 09:00 Trazodone HCl (Desyrel) 200 mg BEDTIME ORAL 11/11/17 21:00 12/11/17 20:59 11/11/17 21:09 GI: Plan Problems: (1) Crohn's disease (2) Weight loss (3) Intractable abdominal pain (4) Opioid dependence (5) SBO (small bowel obstruction) Plan maintain NPO + IVFs CT AP r/o SBO fu abdominal U/S pain mgmt fu labs will follow with additional recs Discussed with Dr. Potts. Thank you for this patient referral, we will follow. LUIS POTTS 11/12/17 1158: History of Present Illness General Reason for Hospitalization: Abdominal Pain Present Illness Home Meds Reported Medications Lorazepam* (ATIVAN*) 1 Mg Tablet, 1 MG ORAL THREE TIMES A DAY, TAB 11/11/17 Multivitamins* (MULTIVITAMINS*) 1 Each Tablet, 1 TAB ORAL DAILY, TAB 0 Refills 11/11/17 Duloxetine Hcl* (CYMBALTA*) 60 Mg Capsule.dr, 60 MG ORAL DAILY, CAP 10/13/17 Theophylline (THEODUR*) 100 Mg Tab.er.12h, 100 MG ORAL TWICE A DAY, #30 TAB 0 Refills 10/13/17 Fluconazole (FLUCONAZOLE) 200 Mg Tablet, 200 MG ORAL DAILY for 11 Days, #7 TAB 0 Refills 10/13/17 Atorvastatin Calcium* (LIPITOR*) 40 Mg Tablet, 40 MG ORAL BEDTIME, #30 TAB 0 Refills 3/21/18 Trazodone Hcl* (DESYREL*) 100 Mg Tablet, 200 MG ORAL BEDTIME, TAB 10/13/17 Mesalamine (ASACOL HD) 800 Mg Tablet.dr, 1600 MG ORAL THREE TIMES A DAY, TAB Do not break outer coating 10/13/17 Mirtazapine (REMERON) 30 Mg Tab.rapdis, 30 MG ORAL BEDTIME, TAB 06/26/17 Quetiapine Fumarate (SEROQUEL) 400 Mg Tablet, 200 MG ORAL QHS, #15 TAB 0 Refills 04/30/17 Pantoprazole* (PROTONIX*) 40 Mg Tablet.dr, 40 MG ORAL DAILY, TAB 04/30/17 Levothyroxine Sodium* (LEVOTHYROXINE SODIUM*) 75 Mcg Tablet, 75 MCG ORAL ACBREAKFAST, TAB Take in the morning on an empty stomach, at least 30 minutes before food. 04/30/17 Al Hydroxide/mg Hydroxide (Mag-Al Plus Suspension) 30 Ml Oral.susp, 30 ML PO Q6HR for Constipation, ML 04/30/17 Acetaminophen* (ACETAMINOPHEN 325MG TABLET*) 325 Mg Tablet, 325 MG ORAL Q4H PRN for Fever/Headache/Mild Pain, TAB 04/30/17 Aspirin* (ASPIR 81*) 81 Mg Tablet.dr, 81 MG ORAL DAILY, TAB 12/22/16 Linaclotide (LINZESS) 145 Mcg Capsule, 145 MCG PO DAILY, CAP 10/15/16 Montelukast Sodium* (MONTELUKAST SODIUM*) 10 Mg Tablet, 10 MG ORAL DAILY, TAB 09/03/16 Bupropion Hcl* (BUPROPION HCL*) 100 Mg Tablet, 100 MG ORAL DAILY, TAB 09/03/16 Topiramate* (TOPAMAX*) 25 Mg Tablet, 25 MG ORAL TWICE A DAY, #60 TAB 0 Refills 07/19/16 Levetiracetam* (LEVETIRACETAM*) 500 Mg Tablet, 1000 MG ORAL TID, #60 TAB 0 Refills 07/19/16 Diphenhydramine HCl (Benadryl) 25 Mg Capsule, 25 MG PO Q6HR PRN for Itching, CAP 07/19/16 Discontinued Reported Medications Levofloxacin-D5w 500 Mg/100 Ml* (LEVOFLOXACIN-D5W 500 MG/100 ML*) 500 Mg/100 Ml Piggyback, 500 MG IVPB Q24H, BAG 10/13/17 Metronidazole* (FLAGYL*) 250 Mg Tablet, 200 MG ORAL DAILY for 11 Days, TAB 10/13/17 Levothyroxine Sodium (SYNTHROID) 137 Mcg Tablet, 75 MCG ORAL DAILY, TAB Take in the morning on an empty stomach, at least 30 minutes before food. 10/13/17 Zolpidem Tartrate* (AMBIEN*) 5 Mg Tablet, 5 MG ORAL BEDTIME PRN for Insomnia, TAB 10/07/17 Temazepam* (RESTORIL*) 15 Mg Capsule, 15 MG ORAL BEDTIME PRN for Insomnia, CAP 04/30/17 Ondansetron* (ZOFRAN*) 4 Mg Tablet, 4 MG ORAL Q6H PRN for Nausea & Vomiting, TAB 04/30/17 Nitroglycerin (NITROGLYCERIN) 0.4 Mg Tab.subl, 0.4 MG SL [id number] PRN for Prn Chest Pain, TAB 04/30/17 Mesalamine (PENTASA) 500 Mg Capsule.er, 1000 MG ORAL TID, #30 CAP 0 Refills 09/03/16 Risperidone* (RISPERDAL*) 0.5 Mg Tablet, 0.5 MG ORAL BEDTIME, #30 TAB 0 Refills 09/03/16 Ibuprofen* (MOTRIN*) 600 Mg Tablet, 800 MG ORAL THREE TIMES A DAY, #30 TAB 0 Refills 09/03/16 Allergies: Coded Allergies: No Known Allergies (Verified , 05/21/06) GI: Plan Plan The patient was seen and examined at bedside and all new and available data was reviewed in the patients chart. I agree with the above findings, impression and plan. (Patient seen earlier today. Signature stamp does not reflect patient encounter time.). - MD Sonia Valdes,[facility] Conrad N.PDeng Nov 12, 2017 10:44 LUIS POTTS Nov 12, 2017 11:58
[2017-11-12] MEDS: Relistor 12mg/0.6ml Vial SUBQ SCH (11:32)
[2017-11-12 12:00] VITALS: BP 108/76
--- NOTE | 2017-11-12 14:08 | Consultation ---
Consult Note Assessment/Plan [id number] Jose Salinas MD Nov 12, 2017 14:08
--- NOTE | 2017-11-12 15:02 | Diagnostic Imaging Report ---
Indication: Abdominal pain and distention Technique: CT of the abdomen and pelvis utilizing automated exposure control with intravenous contrast. Venous scanning performed. Oral contrast was also administered CT dose: Total DLP 1017.59 mGycm; CTDI vol 19.75 mGy Comparison: 10/07/2017; 12/20/2016 Findings: Images through the lower lungs demonstrate interval development small to moderate left-sided pleural effusion with adjacent compressive atelectasis of the left lower lobe. There is interstitial lung disease with peripheral reticulation. There is a 3.5 x 2.8 cm mass lesion in the left inferior hilar region (series 2 image #3) which is partially visualized. There is a pleural-based mass at the left lung base which measures approximately 2.6 cm AP by 3.7 cm transverse by approximately 4.1 cm craniocaudal (series 5 image #26; series 2 image #24). Multiple left-sided soft tissue nodules along the pleura and along the left paraspinal region which may represent pleural nodules and enlarged lymph nodes/metastatic foci. There is air anterior to the liver (series 2 image #24). This is most concerning for free intraperitoneal air as this cannot definitively be placed within a lumen. There is a possible loop of small bowel adjacent to the medial aspect of this air (series 2 image #28) however no such finding is seen laterally. Unable to reliably determine any potential site of perforation. Oral contrast was administered and there is no definite focus of contrast extravasation. There is again evidence of extensive prior bowel surgery with section of the ascending, transverse and sigmoid colon with ileocolic anastomosis. There is persistent mild dilatation of the colon distal to the anastomosis, seen previously but decreased in degree of distention of the prior exam. There is an enteroenteric anastomosis on the right. Some persistent mildly dilated loops in the midabdomen with overall degree of bowel loop dilatation similar or decreased compared to the prior exam. There are intervening nondilated loops of small bowel. It is very difficult to track the bowel given paucity of intra-abdominal fat. There are multiple anterior abdominal wall mesh anchors. There is no well-defined/drainable fluid collection within the abdomen. There are multiple low-attenuation lesions within the liver. These are not definitively seen on the prior exam and are likely new. The largest is in the right hepatic lobe and measures up to 1 cm diameter (series 2 image #27). Gallbladder is grossly unremarkable in appearance. Spleen and adrenal glands grossly unremarkable. Multiple low-attenuation lesions are again noted in the kidneys likely representing cysts. No urinary tract stone or hydronephrosis. Bladder is decompressed. Apparent wall thickening versus underdistention of the bladder. The uterus is surgically absent. There multiple enlarged retroperitoneal lymph nodes. A celiac axis node measures up to 1.5 cm in short axis. Abdominal aorta is normal in caliber with mild atherosclerotic calcification. And implantable pain pump with reservoir in the left lower quadrant and tubing entering the thecal sac unchanged in position. No acute osseous abnormality is seen. There is chronic right-sided rib fracture. IMPRESSION: Air anterior to the liver as above which is not definitively intraluminal concerning for free intraperitoneal air. Evidence of extensive prior bowel surgery with colonic resection and air collection entero-enteral anastomoses. Dilatation of the colon distal to the enterocolonic anastomosis and some mildly dilated loops in the midabdomen. These findings were seen on the previous exam and degree of distention is either similar or decreased compared to the prior exam. Again there are some intervening loops of nondilated small bowel so the possibility of a degree of obstruction not entirely excluded. No complete obstruction as oral contrast was noted to traverse to the rectum. Pleural-based mass at the left lung base with interval development of a moderate-sized left pleural effusion, left-sided pleural nodularity and retroperitoneal and paraspinal nodules/masses. Left inferior hilar mass lesion partially visualized. There is also new low-attenuation liver lesion. Taken together findings are highly concerning for malignancy/metastatic disease. Correlation with tumor markers recommended. Consider diagnostic thoracentesis or biopsy. Interstitial lung disease. Additional findings as above. Findings discussed with Dr. Gallegos via telephone conversation approximately 1:50 PM on 11/12/17. The CT scanner at [facility] is accredited by the [employer] and the scans are performed using protocols designed to limit radiation exposure to as low as reasonably achievable to attain images of sufficient resolution adequate for diagnostic evaluation.
[2017-11-12 16:00] VITALS: BP 169/97
--- NOTE | 2017-11-12 16:09 | Consultation ---
History of Present Illness General Date patient seen: Nov 12, 2017 Chief Complaint: Abdominal Pain Referring physician: BAYRON BENEDICT Reason for Consultation: ABDOMINAL PAIN Present Illness HPI 66-year-old female with complex medical and surgical history including multiple abdominal surgeries in the past, COPD/asthma, recent weight loss, presenting with abdominal pain. Patient had small bowel capsule endoscopy earlier this week and the day after her procedure she began having intractable abdominal pain. Came to ED for evaluation and was noted to have generalized pain. She states that she has been coughing for a few weeks, has pain has been worsening over the past 3 days and is associated with nausea but no emesis. States she has not recently been passing gas. Pain sharp generalized 10/10 abdominal pain. she states that it is not relieved by morphine and wants dilaudid. Pt has a morphine pump for chronic pain implanted is being followed by Pain management. Hx of chronic abdominal pain and has been known to have OIC. Patient has had multiple surgeries in the past for bowel obstruction as well as lysis of adhesions. She has prior mesh placement in the midline. During work up she did not want another CT scan since she has had multiple prior. Agreed to CT scan today which demonstrate multiple new and/or worsening findings. Surgery called to evaluate. When seen at the bedside with undercover operator she states she has never had the pain like this before. she can recall prior hospitalizations and asks for the dilaudid she usually receives. she states she has been having fevers but does not know how high. Allergies: Coded Allergies: No Known Allergies (Verified , 05/21/06) Medication History Scheduled Al Hydroxide/mg Hydroxide (Mag-Al Plus Suspension), 30 ML PO Q6HR, (Reported) Aspirin* (Aspir 81*), 81 MG ORAL DAILY, (Reported) Atorvastatin Calcium* (Lipitor*), 40 MG ORAL BEDTIME, (Reported) Bupropion Hcl* (Bupropion Hcl*), 100 MG ORAL DAILY, (Reported) Duloxetine Hcl* (Cymbalta*), 60 MG ORAL DAILY, (Reported) Fluconazole (Fluconazole), 200 MG ORAL DAILY, (Reported) Levetiracetam* (Levetiracetam*), 1,000 MG ORAL TID, (Reported) Levothyroxine Sodium* (Levothyroxine Sodium*), 75 MCG ORAL ACBREAKFAST, ( Reported) Linaclotide (Linzess), 145 MCG PO DAILY, (Reported) Lorazepam* (Ativan*), 1 MG ORAL THREE TIMES A DAY, (Reported) Mesalamine (Asacol Hd), 1,600 MG ORAL THREE TIMES A DAY, (Reported) Mirtazapine (Remeron), 30 MG ORAL BEDTIME, (Reported) Montelukast Sodium* (Montelukast Sodium*), 10 MG ORAL DAILY, (Reported) Multivitamins* (Multivitamins*), 1 TAB ORAL DAILY, (Reported) Pantoprazole* (Protonix*), 40 MG ORAL DAILY, (Reported) Quetiapine Fumarate (Seroquel), 200 MG ORAL QHS, (Reported) Theophylline (Theodur*), 100 MG ORAL TWICE A DAY, (Reported) Topiramate* (Topamax*), 25 MG ORAL TWICE A DAY, (Reported) Trazodone Hcl* (Desyrel*), 200 MG ORAL BEDTIME, (Reported) Scheduled PRN Acetaminophen* (Acetaminophen 325MG Tablet*), 325 MG ORAL Q4H PRN for Fever/ Headache/Mild Pain, (Reported) Diphenhydramine HCl (Benadryl), 25 MG PO Q6HR PRN for Itching, (Reported) Discontinued Medications Ibuprofen* (Motrin*), 800 MG ORAL THREE TIMES A DAY, (Reported) Discontinued Reason: Therapy completed Levofloxacin-D5w 500 Mg/100 Ml* (Levofloxacin-D5w 500 Mg/100 Ml*), 500 MG IVPB Q24H, (Reported) Discontinued Reason: Therapy completed Levothyroxine Sodium (Synthroid), 75 MCG ORAL DAILY, (Reported) Discontinued Reason: Medication dose changed Mesalamine (Pentasa), 1,000 MG ORAL TID, (Reported) Discontinued Reason: Pt stopped taking med Metronidazole* (Flagyl*), 200 MG ORAL DAILY, (Reported) Discontinued Reason: Therapy completed Nitroglycerin (Nitroglycerin), 0.4 MG SL [id number] PRN for Prn Chest Pain, ( Reported) Discontinued Reason: Therapy completed Ondansetron* (Zofran*), 4 MG ORAL Q6H PRN for Nausea & Vomiting, (Reported) Discontinued Reason: Therapy completed Risperidone* (Risperdal*), 0.5 MG ORAL BEDTIME, (Reported) Discontinued Reason: Pt stopped taking med Temazepam* (Restoril*), 15 MG ORAL BEDTIME PRN for Insomnia, (Reported) Discontinued Reason: Medication dose changed Zolpidem Tartrate* (Ambien*), 5 MG ORAL BEDTIME PRN for Insomnia, (Reported) Discontinued Reason: Pt stopped taking med Patient History History Provided By: Patient, Medical Record, PMD Healthcare decision maker Patient Resuscitation status Full Code Advanced Directive on File No Past Medical/Surgical History Past Medical/Surgical History: (1) COPD (chronic obstructive pulmonary disease) (2) Asthma (3) IBD (inflammatory bowel disease) (4) Elevated CEA (5) COPD exacerbation (6) PNA (pneumonia) (7) Crohns disease (8) Therapeutic opioid-induced constipation (OIC) (9) Purulent bronchitis (10) COPD (chronic obstructive pulmonary disease) (11) Perianal abscess (12) Shortness of breath (13) Emphysema (14) 25532 (15) 04902 (16) Depression (17) Dyspnea (18) Respiratory distress (19) SOB (shortness of breath) (20) Edema (21) CHF (congestive heart failure) (22) Ileus (23) Leukocytosis (24) Psychosis (25) Seizure (26) Vertigo (27) 12955 (28) Chronic pancreatitis (29) Lumbar spondylosis (30) Chronic pain syndrome (31) UTI (urinary tract infection) (32) Nausea (33) Interstitial lung disease (34) Asthma (35) Chronic pain disorder (36) Herniated nucleus pulposus, lumbar (37) Hx SBO (38) Abnormal laboratory test result (39) Radiculopathy of lumbar region (40) Abdominal pain (41) Abdominal pain (42) Abdominal pain (43) chr psych disorder (44) recurrent syncope (45) seizure disorder, exacerbation (46) Sepsis (47) Chest pain (48) Pneumonia (49) Lower GI bleed (50) Pre-syncope (51) [id number] (52) Abnormal laboratory test result (53) Chronic back pain (54) 385285 (55) History of colonic polyps (56) Sprain of right hand (57) Acute encephalopathy (58) Intractable abdominal pain (59) Cellulitis of female genitalia (60) Encounter for generalized patient complaints (61) Abscess of right genital labia (62) Colonoscopy planned (63) Abdominal pain (64) Abdominal pain (65) Chronic abdominal pain (66) Constipation (67) Nausea and vomiting (68) Slow transit constipation (69) Slow transit constipation (70) Gram-negative bacteremia (71) Bacteremia (72) Chronic pain (73) Anemia (74) Diarrhea (75) Crohn's disease (76) Opioid dependence (77) Weight loss (78) Intractable abdominal pain (79) SBO (small bowel obstruction) Review of Systems All Other Systems: negative except mentioned in HPI Physical Exam General Appearance: alert, mild distress Lines, tubes and drains: peripheral HEENT: mucous membranes moist, PERRL Neck: normal inspection Respiratory/Chest: no respiratory distress, no accessory muscle use, decreased breath sounds Cardiovascular/Chest: tachycardia Abdomen: normal bowel sounds, soft, distended, other - tenderness mainly in left flank and costal margin on ribs and muscles. abdomen with minimal tenderness and similar to prior exams. Extremities: normal range of motion Skin Exam: normal pigmentation Neurologic: alert, oriented x 3 Last 24 Hour Vital Signs Date Time Temp Pulse Resp B/P (MAP) Pulse Ox O2 Delivery O2 Flow Rate FiO2 11/12/17 12:32 100.0 11/12/17 12:00 100.0 107 20 108/76 100 Room Air 100.0 11/12/17 08:17 99.3 11/12/17 08:00 99.3 88 12 127/77 95 Room Air 99.3 11/12/17 07:47 99.6 11/12/17 00:00 99.6 88 19 113/68 100 Room Air 99.6 11/11/17 20:00 99.3 92 19 118/84 100 Room Air 99.3 11/11/17 18:00 99.8 95 20 141/88 96 Room Air 99.8 11/11/17 17:45 100.2 92 20 147/82 96 Room Air 100.2 11/11/17 17:39 100.2 92 20 147/82 96 Room Air 100.2 11/11/17 17:36 98.9 Intake and Output 11/11/17 11/12/17 19:00 07:00 Intake Total 0 ml 750 ml Balance 0 ml 750 ml Intake Oral 0 ml IV Total 750 ml # Voids 3 Laboratory Tests Test 11/12/17 04:27 White Blood Count 9.5 K/UL (4.8-10.8) Red Blood Count 4.14 M/UL (4.20-5.40) L Hemoglobin 12.4 G/DL (12.0-16.0) Hematocrit 38.0 % (37.0-47.0) Mean Corpuscular Volume 92 FL (80-99) Mean Corpuscular Hemoglobin 29.9 PG (27.0-31.0) Mean Corpuscular Hemoglobin Concent 32.6 G/DL (32.0-36.0) Red Cell Distribution Width 15.3 % (11.6-14.8) H Platelet Count 242 K/UL (150-450) Mean Platelet Volume 6.9 FL (6.5-10.1) Neutrophils (%) (Auto) 53.0 % (45.0-75.0) Lymphocytes (%) (Auto) 33.9 % (20.0-45.0) Monocytes (%) (Auto) 10.8 % (1.0-10.0) H Eosinophils (%) (Auto) 1.6 % (0.0-3.0) Basophils (%) (Auto) 0.7 % (0.0-2.0) Activated Partial Thromboplast Time 29 SEC (23-33) Sodium Level 136 MMOL/L (136-145) Potassium Level 3.9 MMOL/L (3.5-5.1) Chloride Level 105 MMOL/L (98-107) Carbon Dioxide Level 27 MMOL/L (21-32) Anion Gap 4 mmol/L (5-15) L Blood Urea Nitrogen 11 mg/dL (7-18) Creatinine 0.8 MG/DL (0.55-1.30) Estimat Glomerular Filtration Rate > 60 mL/min (>60) Glucose Level 98 MG/DL (74-106) Calcium Level 9.0 MG/DL (8.5-10.1) Total Bilirubin 0.2 MG/DL (0.2-1.0) Aspartate Amino Transf (AST/SGOT) 35 U/L (15-37) Alanine Aminotransferase (ALT/SGPT) 18 U/L (12-78) Alkaline Phosphatase 112 U/L (46-116) Total Protein 8.2 G/DL (6.4-8.2) Albumin 2.2 G/DL (3.4-5.0) L Globulin 6.0 g/dL Albumin/Globulin Ratio 0.4 (1.0-2.7) L Amylase Level 49 U/L (25-115) Lipase 52 U/L (73-393) L Height (Feet): 5 Height (Inches): 6.00 Weight (Pounds): 129 Medications Current Medications Medications (Trade) Dose Ordered Sig/Vaibhav Route PRN Reason Start Time Stop Time Status Last Admin Dose Admin Acetaminophen (Tylenol) 650 mg Q4H PRN ORAL fever 11/11/17 15:30 12/11/17 15:29 Al Hydroxide/Mg Hydroxide (Mylanta II) 30 ml Q6H PRN ORAL dyspepsia 11/11/17 15:30 12/11/17 15:29 Atorvastatin Calcium (Lipitor) 40 mg BEDTIME ORAL 11/11/17 21:00 12/11/17 20:59 11/11/17 21:08 Bupropion HCl (Wellbutrin) 100 mg DAILY ORAL 11/12/17 09:00 12/12/17 08:59 11/12/17 09:00 Dextrose (Dextrose 50%) 50 ml STAT PRN IV Hypoglycemia BS<60mg/dL 11/11/17 15:30 12/11/17 15:29 Dextrose/Sodium Chloride 1,000 ml @ 75 mls/hr [id number] IV 11/11/17 17:00 12/11/17 16:59 11/12/17 05:18 Diphenhydramine HCl (Benadryl) 25 mg Q6H PRN ORAL Itching/Pruritis 11/11/17 15:30 12/11/17 15:29 Duloxetine HCl (Cymbalta) 60 mg DAILY ORAL 11/12/17 09:00 12/12/17 08:59 11/12/17 09:00 Gabapentin (Neurontin) 300 mg THREE TIMES A DAY ORAL 11/12/17 10:00 12/12/17 09:59 11/12/17 13:06 Heparin Sodium (Porcine) (Heparin 5000 units/ml) 5,000 units EVERY 12 HOURS SUBQ 11/11/17 21:00 12/11/17 20:59 11/12/17 09:02 Levetiracetam (Keppra) 1,000 mg Q8HR ORAL 11/11/17 22:00 12/11/17 21:59 11/12/17 13:06 Levothyroxine Sodium (Synthroid) 75 mcg ACBREAKFAST ORAL 11/12/17 06:30 12/12/17 06:29 11/12/17 05:48 Lorazepam (Ativan 2mg/ml 1ml) 1 mg Q4H PRN IV agitation 11/11/17 15:30 11/18/17 15:29 Methylnaltrexone [place] (Relistor) 12 mg DAILY SUBQ 11/12/17 10:15 12/12/17 10:14 11/12/17 11:32 Metoclopramide HCl (Reglan) 10 mg Q6H PRN IVP Unrelieved Severe Nausea 11/11/17 15:30 12/11/17 15:29 Morphine Sulfate (Morphine Sulfate) 2 mg Q4H PRN IVP severe Pain (Pain Scale 7-10) 11/11/17 15:30 11/18/17 15:29 11/12/17 12:32 Nitroglycerin (Ntg) 0.4 mg Q5M X 3 DOSES PRN SL Prn Chest Pain 11/11/17 15:30 12/11/17 15:29 Ondansetron HCl (Zofran) 4 mg Q6H PRN IVP Nausea & Vomiting 11/11/17 15:30 12/11/17 15:29 11/12/17 12:37 Pantoprazole (Protonix) 40 mg DAILY IV 11/12/17 09:00 12/12/17 08:59 11/12/17 09:00 Piperacillin Sod/ Tazobactam Sod 3.375 gm/Sodium Chloride 110 ml @ 27.5 mls/hr Q8H IVPB 11/12/17 16:00 11/19/17 15:59 Polyethylene Glycol (Miralax) 17 gm HSPRN PRN ORAL Constipation 11/11/17 15:30 12/11/17 15:29 Promethazine HCl 25 mg/Sodium Chloride 56 ml @ 110 mls/hr Q6H PRN IV Refractory N/V 11/11/17 15:30 12/11/17 15:29 Simethicone (Mylicon) 80 mg QIDPRN PRN ORAL gas 11/12/17 10:00 12/12/17 09:59 Temazepam (Restoril) 15 mg HSPRN PRN ORAL Insomnia 11/11/17 15:30 11/18/17 15:29 Theophylline (Erwin-Dur) 100 mg Q12HR ORAL 11/11/17 21:00 12/11/17 20:59 11/12/17 09:00 Topiramate (Topamax) 25 mg EVERY 12 HOURS ORAL 11/11/17 21:00 12/11/17 20:59 11/12/17 09:00 Trazodone HCl (Desyrel) 200 mg BEDTIME ORAL 11/11/17 21:00 12/11/17 20:59 11/11/17 21:09 Assessment/Plan Problem List: (1) Intractable abdominal pain Assessment & Plan: 66F with abdominal pain. very complex medical and surgical history. now with complex CT findings of left pleural effusion, left lower lung mass, large mediastinal and periaortic lymph nodes, new liver lesions, and air around the liver. unable to tell if bowel loop (possible blind end from prior surgery) noted in right upper quadrant above liver or if abscess or if free air. exam not consistent with perforation and no significant free fluid noted on CT or area of perforation. contrast into distal bowel without leak. initial leukocytosis resolved. low grade persistent fevers. recent cough. unfortunately no clear explanation as to patients current condition. lung mass , effusion, new liver masses, and nodes very concerning for malignant process. Exam stable compared to prior exams (patient seen during last admission and known to me). will need much more extensive work up. I discussed these findings with patient. I explained possible need for urgent surgery but given history and complex surgical history we will monitor clinically first. if declines will proceed with surgery which is VERY high risk in her. if stable will continue with work up. patient and partner express understand and agree with plan. -thoracentesis. fluid for cytology -monitor exam clinically -trend labs -iv abx -will follow with recs. thank you for this consultation. ICD Codes: R10.9 - Unspecified abdominal pain SNOMED: [id number], [id number] Status: unchanged Wolf Quan Nov 12, 2017 16:09
[2017-11-12] MEDS ORDERED: Lidocaine 1% 10mg/ml/Epi 0.005mg/ml 30ml vial INJ ONE (17:00)
--- NOTE | 2017-11-12 17:11 | Pre-Procedure Note/Attestation ---
Pre-Procedure Note/Attestation Complete Prior to Procedure Planned Procedure: left Procedure Narrative: thoracentesis - US guided Indications for Procedure Pre-Operative Diagnosis: pleural effusion/ niodularity concerning for malignancy Attestation I attest that I discussed the nature of the procedure; its benefits; risks and complications; and alternatives (and the risks and benefits of such alternatives ), prior to the procedure, with the patient (or the patient's legal assistance representative). I attest that, if there was a reasonable possibility of needing a blood transfusion, the patient (or the patient's legal assistance representative) was given the [facility] standardized written summary, pursuant to the Simon Bess Blood Safety Act ([place] Health and Safety Code # 1645, as amended). I attest that I re-evaluated the patient just prior to the surgery and that there has been no change in the patient's H&P, except as documented below: Joe Antony M.D. Nov 12, 2017 17:11
--- NOTE | 2017-11-12 17:23 | Operative Note - PDOC ---
Operative Note Operative Note Date of Operation/Procedure: Nov 12, 2017 Pre-op Diagnosis: pleural effusion/ niodularity concerning for malignancy Procedure: left US guided thoracentesis - diagnostic Post-op Diagnosis: same Post-op Diagnosis: same as pre-op Anesthesia: local Specimen: yes Complications: none Condition: stable Estimated Blood Loss: none Drains: none Implant(s) used?: No Indications for Procedure pleural fluid, nodularity concerning for malignancy Description of Procedure successful US guided thoracentesis - removed approx 960 mL of fluid. specimen sent for laboratort analysis. Joe Antony M.D. Nov 12, 2017 17:23
[2017-11-12] MEDS: Piperacillin/Tazobactam 3.375 GM in NS 110 ML IVPB SCH (17:50)
--- NOTE | 2017-11-12 18:44 | Diagnostic Imaging Report ---
Indication: Status post thoracentesis Technique: XRAY Chest 1v Comparison: 10/07/2017 Findings: Heart size and mediastinal contours are stable. There is no definite pneumothorax status post thoracentesis. No large effusion. There is hilar opacity on the left likely related to the mass lesion partially visualized on CT. There is unchanged interstitial prominence. The PICC line has been removed since the prior exam. No acute osseous abnormality seen. IMPRESSION: No evidence of pneumothorax status post thoracentesis. Left hilar mass versus adenopathy partially visualized on CT of the abdomen. Further evaluation with dedicated CT of the chest with contrast recommended.
--- NOTE | 2017-11-12 18:44 | Diagnostic Imaging Report ---
Indications: Left-sided pleural effusion with pleural nodularity Technique: Ultrasound used to localize optimal puncture site. Sterile prepping and draping left chest. Local anesthesia with 1% lidocaine. Under real-time ultrasound guidance, puncture pleural space using thoracentesis needle. Stylet removed. Catheter placed to vacuum bottle suction. Total approximately 960 milliliters of fluid aspirated. Patient tolerated procedure well, without immediate complication. Findings: Followup sonography demonstrates complete resolution of pleural fluid. Impression: Successful ultrasound-guided thoracentesis, yielding approximately 960 milliliters of fluid. Sample sent for better analysis, including cytology.
--- NOTE | 2017-11-12 19:00 | History and Physical Report ---
DATE OF ADMISSION: 11/11/2017 APPROXIMATE TIME: 12 noon. CONSULTANTS: 1. Rob Wagner M.D. 2. Winston Malhotra M.D. 3. Skyler Gallegos M.D. CHIEF COMPLAINT: 1. Abdominal pain. 2. Short of breath. BRIEF HISTORY: This 66-year-old female, who lives at home, presents to [facility] last night with increased abdominal pain x2 days, left-sided mostly, sharp, no radiation. Slight nausea. The patient came to [facility], diagnosed with above, admitted to medical floor for further treatment. Currently, complaining of abdominal pain, 02/01, status post CT of the abdomen, no complaint. REVIEW OF SYSTEMS: No chest pain. Slight short of breath. Slight nausea. No vomiting. No diarrhea. PAST MEDICAL HISTORY: Crohn disease, abdominal pain, COPD, CHF. PAST SURGICAL HISTORY: Exploratory laparotomy. MEDICATIONS: Include , Neurontin, Mylicon, Wellbutrin, Cymbalta, Protonix. Synthroid, Keppra, Lipitor, Erwin-Dur, Topamax. ALLERGIES: Denies. SOCIAL HISTORY: Positive smoking. No alcohol. No intravenous drug abuse. FAMILY HISTORY: Noncontributory. PHYSICAL EXAMINATION: GENERAL: Anxious in bed, oriented x3, slight distress secondary to abdominal pain. VITAL SIGNS: Temperature 100, pulse 107, respiratory rate 20, blood pressure 108/76. CARDIOVASCULAR: No murmur. LUNGS: Distant and clear. ABDOMEN: Bowel sounds positive. Distended. Soft. No rigidity. No rebound. Slight guarding. Slightly tender. LABORATORY DATA: White count yesterday 11.3 today, CBC is normal. BMP shows albumin 2.2 otherwise BMP is normal. PTT is 29. Urinalysis show 3+ leukocyte esterase. ASSESSMENT: 1. Shortness of breath. 2. Urinary tract infection. 3. Abdominal pain. 4. Crohn disease. 5. COPD. 6. CHF. PLAN: 1. Continue previous medications. 2. OT/PT. 3. Dietary evaluation. 4. O2 pulmonary treatment as needed. 5. CBC and BMP in the morning. 6. Pain control. 7. Resume home medications. 8. We will continue to follow this patient. 9. Dr. Wagner, Dr. Malhotra, Dr. Dr. Rita Gallegos to consult. Barber Dial D.O. DR: Toya JOB#: [id number] CC:
[2017-11-12 20:00] VITALS: BP 138/83
[2017-11-12] MEDS: TraZODone 100mg tab ORAL SCH (21:24)
[2017-11-12] MEDS: Atorvastatin 20mg tab ORAL SCH (21:25)
--- NOTE | 2017-11-12 22:45 | Consultation ---
DATE OF CONSULTATION: 11/12/2017 INFECTIOUS DISEASE CONSULTATION CONSULTING PHYSICIAN: Jose Salinas M.D. REQUESTING PHYSICIAN: Barber Dial D.O. REASON FOR CONSULTATION: Evaluation of the patient for fever, leukocytosis in the setting of bowel obstruction, antibiotic treatment. HISTORY OF PRESENT ILLNESS: The patient is a 66-year-old female with multiple medical problems, who was well known to our service from recent admission. The patient was admitted due to abdominal pain. This started 2 days ago, was admitted with impression of bowel obstruction. The patient was found to have leukocytosis and low-grade fever. Infectious Disease consultation has been requested for further evaluation of the patient and antibiotic management. PAST MEDICAL HISTORY: 1. Sepsis. 2. History of polymicrobial gram-negative bacteremia including Stenotrophomonas maltophilia and Enterobacter. 3. History of Aggie esophagitis. 4. History of C. difficile in the past. 5. Crohn's disease. 6. History of bowel obstruction x2 with lysis of adhesions in 2004. 7. COPD. 8. History of chronic pain syndrome, on morphine pump. 9. CVA in 2004. 10. Seizure disorder. MEDICATIONS: Off of antibiotics. ALLERGIES: No known drug allergies. SOCIAL HISTORY: The patient is a smoker. FAMILY HISTORY: Not contributing. PHYSICAL EXAMINATION: VITAL SIGNS: Temperature 100 degrees, pulse 86, blood pressure 108/74, and T-max 100.2 degrees. HEENT: No pale conjunctivae. No icterus. NECK: No lymphadenopathy. CHEST: Clear. HEART: S1 and S2. ABDOMEN: Soft. Mild tenderness in all 4 quadrants. The patient has a morphine pump on the left lower quadrant. EXTREMITIES: No cyanosis at this time. NEUROLOGIC: Awake. LABORATORY AND DIAGNOSTIC DATA: White blood cells at the time of admission was 12.9, today is 9.5; hemoglobin 12; and platelets 242. BUN 11 and creatinine 0.8. Liver function tests unremarkable. Blood culture is pending. Abdominal x-ray showed contracted/undistended gallbladder and mild hepatomegaly. ASSESSMENT: The patient is a 66-year-old female with, 1. Low-grade fever. 2. Status post leukocytosis. 3. Probable small bowel obstruction (CT shows dilated right upper quadrant small bowel loops). PLAN: 1. We will start the patient on IV Zosyn. 2. Monitor cultures. 3. Monitor CBC and BMP. 4. We will follow GI recommendations. 5. Based on the patient's clinical course and labs, we will do further recommendation. Jose Salinas M.D. DR: OFELIA JOB#: [id number] CC:
[2017-11-13] VITALS: BP 115/72
[2017-11-13] MEDS: Piperacillin/Tazobactam 3.375 GM in NS 110 ML IVPB SCH ×5 (01:22→20:31)
[2017-11-13] MEDS: Morphine Sulfate 4mg/ml Inj IVP PRN ×2 (01:55→06:03)
[2017-11-13 04:00] VITALS: BP 104/64
[2017-11-13 08:00] VITALS: BP 124/70
[2017-11-13] MEDS: D5 1/2NS 1,000 ML IV SCH ×2 (08:23→20:32)
[2017-11-13] MEDS ORDERED: Morphine Sulfate 4mg/ml Inj SUBQ PRN (08:27)
[2017-11-13 08:28] LABS: BASOPHILS % (AUTO) 0.6 % (0.0-2.0); EOSINOPHILS % (AUTO) 1.5 % (0.0-3.0); HEMATOCRIT 39.6 % (37.0-47.0); HEMOGLOBIN 13.2 G/DL (12.0-16.0); LYMPHOCYTES % (AUTO) 32.6 % (20.0-45.0); MEAN CORPUSCULAR VOLUME 92 FL (80-99); MONOCYTES % (AUTO) 11.1 % (1.0-10.0); NEUTROPHILS % (AUTO) 54.2 % (45.0-75.0); PLATELET COUNT 226 K/UL (150-450); RED BLOOD COUNT 4.31 M/UL (4.20-5.40); RED CELL DISTRIBUTION WIDTH 15.5 % (11.6-14.8)
[2017-11-13] MEDS ORDERED: HYDROcodone/Acetamin 10/325 tab ORAL PRN ×2 (08:30→12:30)
[2017-11-13] MEDS: Pantoprazole Inj IV SCH ×2 (08:44→08:56)
[2017-11-13] MEDS: Topiramate 25mg tab ORAL SCH ×2 (08:45→20:24)
[2017-11-13] MEDS: Theophylline ER 100mg ORAL SCH ×2 (08:45→20:25)
[2017-11-13] MEDS: DULoxetine 30mg cap ORAL SCH (08:45)
[2017-11-13] MEDS: Heparin 5000 units/ml inj SUBQ SCH ×2 (08:48→20:26)
--- NOTE | 2017-11-13 09:10 | General Progress Note ---
Assessment/Plan Problem List: (1) Crohn's disease ICD Codes: K50.90 - Crohn's disease SNOMED: 83664231 Qualifiers: Qualified Codes: K50.919 - Crohn's disease, unspecified, with unspecified complications (2) Opioid dependence ICD Codes: F11.20 - Opioid dependence SNOMED: 03147614 (3) Intractable abdominal pain ICD Codes: R10.9 - Unspecified abdominal pain SNOMED: 94024130, 120110733 (4) COPD (chronic obstructive pulmonary disease) ICD Codes: J44.9 - Chronic obstructive pulmonary disease SNOMED: 11599661 (5) Shortness of breath (6) SOB (shortness of breath) ICD Codes: R06.02 - Shortness of breath SNOMED: 508284817 (7) UTI (urinary tract infection) ICD Codes: N39.0 - Urinary tract infection, site not specified SNOMED: 28155114 Status: unchanged Assessment/Plan ot pt diet pain control sx eval cbc bmp am Subjective Constitutional: Reports: weakness Allergies: Coded Allergies: No Known Allergies (Verified , 05/21/06) All Systems: reviewed and negative except above Subjective sl gen abd pain Objective Last 24 Hour Vital Signs Date Time Temp Pulse Resp B/P (MAP) Pulse Ox O2 Delivery O2 Flow Rate FiO2 11/13/17 08:47 97.9 11/13/17 08:00 97.7 69 20 124/70 100 97.7 11/13/17 04:00 97.9 80 19 104/64 97 Room Air 97.9 11/13/17 00:00 97.5 83 19 115/72 100 Room Air 97.5 11/12/17 20:00 98.3 92 19 138/83 100 98.3 11/12/17 16:00 100.0 104 14 169/97 100 Room Air 100.0 11/12/17 12:32 100.0 11/12/17 12:00 100.0 107 20 108/76 100 Room Air 100.0 Intake and Output 11/12/17 11/13/17 19:00 07:00 Intake Total 627.5 ml 980.0 ml Balance 627.5 ml 980.0 ml Intake Oral 250 ml IV Total 627.5 ml 730.0 ml # Voids 3 3 Laboratory Tests 11/12/17 16:37: Body Fluid Source Left pleural fluid, Body Fluid Volume 28, Body Fluid Appearance Hazy, Body Fluid pH 8.0, Body Fluid RBC 7975, Body Fluid Total Nucleated Cells 613, Body Fluid Polynuclear WBCs (%) 6, Body Fluid Mononuclear WBCs (%) 87, Body Fluid Mesothelial Cells (%) 7, Body Fluid Glucose [Pending], Body Fluid Total Protein [Pending] 11/13/17 07:42: Sodium Level [Pending], Potassium Level [Pending], Chloride Level [Pending], Carbon Dioxide Level [Pending], Blood Urea Nitrogen [Pending], Creatinine [ Pending], Estimat Glomerular Filtration Rate [Pending], Glucose Level [Pending] , Lactic Acid Level [Pending], Calcium Level [Pending], Total Bilirubin [Pending ], Aspartate Amino Transf (AST/SGOT) [Pending], Alanine Aminotransferase (ALT/ SGPT) [Pending], Alkaline Phosphatase [Pending], Total Protein [Pending], Albumin [Pending], Globulin [Pending] Height (Feet): 5 Height (Inches): 6.00 Weight (Pounds): 129 General Appearance: alert EENT: normal ENT inspection Neck: normal alignment Cardiovascular: normal peripheral pulses, normal rate, regular rhythm Respiratory/Chest: chest wall non-tender, lungs clear, normal breath sounds Abdomen: soft, hypoactive bowel sounds Extremities: normal inspection Edema: no edema noted Arm (L), no edema noted Arm (R), no edema noted Leg (L), no edema noted Leg (R), no edema noted Pedal (L), no edema noted Pedal (R), no edema noted Generalized Neurologic: responsive, motor weakness Skin: normal pigmentation, warm/dry BAYRON BENEDICT Nov 13, 2017 09:10
[2017-11-13 09:12] LABS: ALANINE AMINOTRANSFERASE 17 U/L (12-78); ALBUMIN 2.3 G/DL (3.4-5.0); ALBUMIN/GLOBULIN RATIO 0.4 (1.0-2.7); ALKALINE PHOSPHATASE 107 U/L (46-116); ANION GAP 10 mmol/L (5-15); ASPARTATE AMINO TRANSFERASE 41 U/L (15-37); BILIRUBIN,TOTAL 0.2 MG/DL (0.2-1.0); BLOOD UREA NITROGEN 13 mg/dL (7-18); CALCIUM 9.2 MG/DL (8.5-10.1); CARBON DIOXIDE 24 MMOL/L (21-32); CHLORIDE 104 MMOL/L (98-107); CREATININE 0.9 MG/DL (0.55-1.30); POTASSIUM 3.9 MMOL/L (3.5-5.1); SODIUM 138 MMOL/L (136-145)
[2017-11-13] MEDS: Relistor 12mg/0.6ml Vial SUBQ SCH (09:32)
[2017-11-13 09:54] LABS: INR 1.1 (0.9-1.1)
[2017-11-13] MEDS ORDERED: Lidocaine 1% 10mg/ml/Epi 0.005mg/ml 30ml vial INJ ONE (11:15)
[2017-11-13] MEDS ORDERED: Lidocaine 1% 10mg/ml/Epi 0.005mg/ml 30ml vial INJ PRN (11:15)
--- NOTE | 2017-11-13 11:44 | General Surgery Progress Note ---
General Surgery-Progress Note Subjective Additional Comments no acute events. still has pain but not consistent. able to move without difficulty or pain or discomfort but states pain. Objective Last 24 Hour Vital Signs Date Time Temp Pulse Resp B/P (MAP) Pulse Ox O2 Delivery O2 Flow Rate FiO2 11/13/17 09:17 97.9 11/13/17 08:47 97.9 11/13/17 08:00 97.7 69 20 124/70 100 97.7 11/13/17 04:00 97.9 80 19 104/64 97 Room Air 97.9 11/13/17 00:00 97.5 83 19 115/72 100 Room Air 97.5 11/12/17 20:00 98.3 92 19 138/83 100 98.3 11/12/17 16:00 100.0 104 14 169/97 100 Room Air 100.0 11/12/17 12:32 100.0 11/12/17 12:00 100.0 107 20 108/76 100 Room Air 100.0 I&O Intake and Output 11/12/17 11/13/17 19:00 07:00 Intake Total 627.5 ml 980.0 ml Balance 627.5 ml 980.0 ml Intake Oral 250 ml IV Total 627.5 ml 730.0 ml # Voids 3 3 Drains: none Cardiovascular: RSR Respiratory: clear Abdomen: soft, distended, non-tender, present bowel sounds Extremities: no edema, no tenderness, no cyanosis Laboratory Tests Test 11/12/17 16:37 11/13/17 07:42 Body Fluid Source Left pleural fluid Body Fluid Volume 28 mL Body Fluid Appearance Hazy Body Fluid pH 8.0 Body Fluid RBC 7975 /CUMM Body Fluid Total Nucleated Cells 613 /CUMM Body Fluid Polynuclear WBCs (%) 6 % Body Fluid Mononuclear WBCs (%) 87 % Body Fluid Mesothelial Cells (%) 7 % Body Fluid Glucose Pending Body Fluid Total Protein Pending White Blood Count 10.0 K/UL (4.8-10.8) Red Blood Count 4.31 M/UL (4.20-5.40) Hemoglobin 13.2 G/DL (12.0-16.0) Hematocrit 39.6 % (37.0-47.0) Mean Corpuscular Volume 92 FL (80-99) Mean Corpuscular Hemoglobin 30.6 PG (27.0-31.0) Mean Corpuscular Hemoglobin Concent 33.3 G/DL (32.0-36.0) Red Cell Distribution Width 15.5 % (11.6-14.8) H Platelet Count 226 K/UL (150-450) Mean Platelet Volume 6.8 FL (6.5-10.1) Neutrophils (%) (Auto) 54.2 % (45.0-75.0) Lymphocytes (%) (Auto) 32.6 % (20.0-45.0) Monocytes (%) (Auto) 11.1 % (1.0-10.0) H Eosinophils (%) (Auto) 1.5 % (0.0-3.0) Basophils (%) (Auto) 0.6 % (0.0-2.0) Prothrombin Time 11.4 SEC (9.30-11.50) Prothromb Time International Ratio 1.1 (0.9-1.1) Activated Partial Thromboplast Time 28 SEC (23-33) Sodium Level 138 MMOL/L (136-145) Potassium Level 3.9 MMOL/L (3.5-5.1) Chloride Level 104 MMOL/L (98-107) Carbon Dioxide Level 24 MMOL/L (21-32) Anion Gap 10 mmol/L (5-15) Blood Urea Nitrogen 13 mg/dL (7-18) Creatinine 0.9 MG/DL (0.55-1.30) Estimat Glomerular Filtration Rate > 60 mL/min (>60) Glucose Level 95 MG/DL (74-106) Lactic Acid Level 1.70 mmol/L (0.66-2.22) Calcium Level 9.2 MG/DL (8.5-10.1) Total Bilirubin 0.2 MG/DL (0.2-1.0) Aspartate Amino Transf (AST/SGOT) 41 U/L (15-37) H Alanine Aminotransferase (ALT/SGPT) 17 U/L (12-78) Alkaline Phosphatase 107 U/L (46-116) Total Protein 8.4 G/DL (6.4-8.2) H Albumin 2.3 G/DL (3.4-5.0) L Globulin 6.1 g/dL Albumin/Globulin Ratio 0.4 (1.0-2.7) L Plan Problems: (1) Intractable abdominal pain Assessment & Plan: 66F with abdominal pain. very complex medical and surgical history. now with complex CT findings of left pleural effusion, left lower lung mass, large mediastinal and periaortic lymph nodes, new liver lesions, and air around the liver. unable to tell if bowel loop (possible blind end from prior surgery) noted in right upper quadrant above liver or if abscess or if free air. exam not consistent with perforation and no significant free fluid noted on CT or area of perforation. contrast into distal bowel without leak. initial leukocytosis resolved. low grade persistent fevers. recent cough. unfortunately no clear explanation as to patients current condition. lung mass , effusion, new liver masses, and nodes very concerning for malignant process. Exam stable compared to prior exams (patient seen during last admission and known to me). will need much more extensive work up. I discussed these findings with patient. I explained possible need for urgent surgery but given history and complex surgical history we will monitor clinically first. if declines will proceed with surgery which is VERY high risk in her. if stable will continue with work up. patient and partner express understand and agree with plan. s/p thoracentesis 11/12. awaiting cytology left EJ line not functional and removed. did not have other access so right EJ line placed by myself. if fails will need central venous access. -monitor exam clinically -trend labs -iv abx -will follow with recs. thank you for this consultation. Wolf Quan Nov 13, 2017 11:44
[2017-11-13 12:00] VITALS: BP 139/89
[2017-11-13] MEDS: Hydromorphone 0.5mg/0.5ml inj IVP PRN ×3 (12:04→20:24)
--- NOTE | 2017-11-13 12:30 | Infectious Diseases Prog Note ---
Assessment/Plan Assessment/Plan ASSESSMENT: The patient is a 66-year-old female with, Low-grade fever. probable due to SBO , improving Status post leukocytosis. Probable small bowel obstruction Recent history of polymicrobial gram-negative bacteremia including Stenotrophomonas maltophilia and Enterobacter. History of Aggie esophagitis. History of C. difficile in the past. Air anterior to the liver , ? free intraperitoneal air ( Surg doubt perforation ) Lung and liver masses Ro Malignancy CT: Pleural-based mass at the left lung base / Moderate-sized left pleural effusion, left-sided pleural nodularity and retroperitoneal and paraspinal nodules/masses. Left inferior hilar mass lesion partially visualized. New low- attenuation liver lesion ( concerning for malignancy/metastatic disease ) Pl effusion SP ultrasound-guided thoracentesis, 960 cc ( m/l 2/2 mets, no evid of Empyema ) Crohn's disease. History of bowel obstruction x2 with lysis of adhesions in 2004. COPD. History of chronic pain syndrome, on morphine pump. CVA in 2004. Seizure disorder. PLAN: cont the patient on IV Zosyn d# 2 Monitor cultures. ( pl effusion ) Monitor CBC and BMP. follow GI recommendations hem cons :P NPO Subjective Allergies: Coded Allergies: No Known Allergies (Verified , 05/21/06) Subjective pt wanted to leave earlier today Objective Vital Signs Last 24 Hour Vital Signs Date Time Temp Pulse Resp B/P (MAP) Pulse Ox O2 Delivery O2 Flow Rate FiO2 11/13/17 12:04 97.9 11/13/17 09:17 97.9 11/13/17 08:47 97.9 11/13/17 08:00 97.7 69 20 124/70 100 97.7 11/13/17 04:00 97.9 80 19 104/64 97 Room Air 97.9 11/13/17 00:00 97.5 83 19 115/72 100 Room Air 97.5 11/12/17 20:00 98.3 92 19 138/83 100 98.3 11/12/17 16:00 100.0 104 14 169/97 100 Room Air 100.0 11/12/17 12:32 100.0 Height (Feet): 5 Height (Inches): 6.00 Weight (Pounds): 129 HEENT: anicteric Respiratory/Chest: normal breath sounds Cardiovascular: regular rhythm Abdomen: tender Microbiology Date/Time Source Procedure Growth Status 11/12/17 16:37 Pleural Fluid Gram Stain - Final Resulted 11/12/17 16:37 Pleural Fluid Body Fluid Culture - Preliminary NO GROWTH AFTER 24 HOURS Resulted Laboratory Tests Test 11/12/17 16:37 11/13/17 07:42 Body Fluid Source Left pleural fluid Body Fluid Volume 28 mL Body Fluid Appearance Hazy Body Fluid pH 8.0 Body Fluid RBC 7975 /CUMM Body Fluid Total Nucleated Cells 613 /CUMM Body Fluid Polynuclear WBCs (%) 6 % Body Fluid Mononuclear WBCs (%) 87 % Body Fluid Mesothelial Cells (%) 7 % Body Fluid Glucose Pending Body Fluid Total Protein Pending White Blood Count 10.0 K/UL (4.8-10.8) Red Blood Count 4.31 M/UL (4.20-5.40) Hemoglobin 13.2 G/DL (12.0-16.0) Hematocrit 39.6 % (37.0-47.0) Mean Corpuscular Volume 92 FL (80-99) Mean Corpuscular Hemoglobin 30.6 PG (27.0-31.0) Mean Corpuscular Hemoglobin Concent 33.3 G/DL (32.0-36.0) Red Cell Distribution Width 15.5 % (11.6-14.8) H Platelet Count 226 K/UL (150-450) Mean Platelet Volume 6.8 FL (6.5-10.1) Neutrophils (%) (Auto) 54.2 % (45.0-75.0) Lymphocytes (%) (Auto) 32.6 % (20.0-45.0) Monocytes (%) (Auto) 11.1 % (1.0-10.0) H Eosinophils (%) (Auto) 1.5 % (0.0-3.0) Basophils (%) (Auto) 0.6 % (0.0-2.0) Prothrombin Time 11.4 SEC (9.30-11.50) Prothromb Time International Ratio 1.1 (0.9-1.1) Activated Partial Thromboplast Time 28 SEC (23-33) Sodium Level 138 MMOL/L (136-145) Potassium Level 3.9 MMOL/L (3.5-5.1) Chloride Level 104 MMOL/L (98-107) Carbon Dioxide Level 24 MMOL/L (21-32) Anion Gap 10 mmol/L (5-15) Blood Urea Nitrogen 13 mg/dL (7-18) Creatinine 0.9 MG/DL (0.55-1.30) Estimat Glomerular Filtration Rate > 60 mL/min (>60) Glucose Level 95 MG/DL (74-106) Lactic Acid Level 1.70 mmol/L (0.66-2.22) Calcium Level 9.2 MG/DL (8.5-10.1) Total Bilirubin 0.2 MG/DL (0.2-1.0) Aspartate Amino Transf (AST/SGOT) 41 U/L (15-37) H Alanine Aminotransferase (ALT/SGPT) 17 U/L (12-78) Alkaline Phosphatase 107 U/L (46-116) Total Protein 8.4 G/DL (6.4-8.2) H Albumin 2.3 G/DL (3.4-5.0) L Globulin 6.1 g/dL Albumin/Globulin Ratio 0.4 (1.0-2.7) L Current Medications Medications (Trade) Dose Ordered Sig/Vaibhav Route PRN Reason Start Time Stop Time Status Last Admin Dose Admin Acetaminophen (Tylenol) 650 mg Q4H PRN ORAL fever 11/11/17 15:30 12/11/17 15:29 Acetaminophen/ Hydrocodone Bitart (Cement 10/325) 1 tab Q4H PRN ORAL Pain Scale (3-5) 11/13/17 12:30 11/20/17 08:29 Al Hydroxide/Mg Hydroxide (Mylanta II) 30 ml Q6H PRN ORAL dyspepsia 11/11/17 15:30 12/11/17 15:29 Atorvastatin Calcium (Lipitor) 40 mg BEDTIME ORAL 11/11/17 21:00 12/11/17 20:59 11/12/17 21:25 Bupropion HCl (Wellbutrin) 100 mg DAILY ORAL 11/12/17 09:00 12/12/17 08:59 11/13/17 08:45 Dextrose (Dextrose 50%) 50 ml STAT PRN IV Hypoglycemia BS<60mg/dL 11/11/17 15:30 12/11/17 15:29 Dextrose/Sodium Chloride 1,000 ml @ 75 mls/hr [id number] IV 11/11/17 17:00 12/11/17 16:59 11/12/17 21:23 Diphenhydramine HCl (Benadryl) 25 mg Q6H PRN ORAL Itching/Pruritis 11/11/17 15:30 12/11/17 15:29 Duloxetine HCl (Cymbalta) 60 mg DAILY ORAL 11/12/17 09:00 12/12/17 08:59 11/13/17 08:45 Gabapentin (Neurontin) 300 mg THREE TIMES A DAY ORAL 11/12/17 10:00 12/12/17 09:59 11/13/17 08:45 Heparin Sodium (Porcine) (Heparin 5000 units/ml) 5,000 units EVERY 12 HOURS SUBQ 11/11/17 21:00 12/11/17 20:59 11/13/17 08:48 Hydromorphone HCl (Dilaudid) 0.5 mg Q4H PRN IVP For Pain 11/13/17 11:45 11/20/17 11:44 11/13/17 12:04 Levetiracetam (Keppra) 1,000 mg Q8HR ORAL 11/11/17 22:00 12/11/17 21:59 11/13/17 06:03 Levothyroxine Sodium (Synthroid) 75 mcg ACBREAKFAST ORAL 11/12/17 06:30 12/12/17 06:29 11/13/17 06:03 Lidocaine/ Epinephrine (Xylocaine 1%/ Epi MPF 30ml) 30 ml ONCE PRN INJ . 11/13/17 11:15 11/13/17 13:15 Lorazepam (Ativan 2mg/ml 1ml) 1 mg Q4H PRN IV agitation 11/11/17 15:30 11/18/17 15:29 Methylnaltrexone [place] (Relistor) 12 mg DAILY SUBQ 11/12/17 10:15 12/12/17 10:14 11/13/17 09:32 Metoclopramide HCl (Reglan) 10 mg Q6H PRN IVP Unrelieved Severe Nausea 11/11/17 15:30 12/11/17 15:29 Nitroglycerin (Ntg) 0.4 mg Q5M X 3 DOSES PRN SL Prn Chest Pain 11/11/17 15:30 12/11/17 15:29 Ondansetron HCl (Zofran) 4 mg Q6H PRN IVP Nausea & Vomiting 11/11/17 15:30 12/11/17 15:29 11/12/17 12:37 Pantoprazole (Protonix) 40 mg DAILY IV 11/12/17 09:00 12/12/17 08:59 11/12/17 09:00 Piperacillin Sod/ Tazobactam Sod 3.375 gm/Sodium Chloride 110 ml @ 27.5 mls/hr Q8H IVPB 11/12/17 16:00 11/19/17 15:59 11/13/17 12:06 Polyethylene Glycol (Miralax) 17 gm HSPRN PRN ORAL Constipation 11/11/17 15:30 12/11/17 15:29 Promethazine HCl 25 mg/Sodium Chloride 56 ml @ 110 mls/hr Q6H PRN IV Refractory N/V 11/11/17 15:30 12/11/17 15:29 Simethicone (Mylicon) 80 mg QIDPRN PRN ORAL gas 11/12/17 10:00 12/12/17 09:59 Temazepam (Restoril) 15 mg HSPRN PRN ORAL Insomnia 11/11/17 15:30 11/18/17 15:29 Theophylline (Erwin-Dur) 100 mg Q12HR ORAL 11/11/17 21:00 12/11/17 20:59 11/13/17 08:45 Topiramate (Topamax) 25 mg EVERY 12 HOURS ORAL 11/11/17 21:00 12/11/17 20:59 11/13/17 08:45 Trazodone HCl (Desyrel) 200 mg BEDTIME ORAL 11/11/17 21:00 12/11/17 20:59 11/12/17 21:24 Jose Salinas MD Nov 13, 2017 12:30
--- NOTE | 2017-11-13 13:31 | General Progress Note ---
Assessment/Plan Assessment/Plan Assessment - suspected SBO or PSBO - Crohn's disease - ? free air - exam not consistent with acute abdomen - Pleural based mass with pleural effusion - r/o malignancy Recommendations - follow exam - abx - check fluid cytology - pulmonary opinion - NPO - IVF Subjective Allergies: Coded Allergies: No Known Allergies (Verified , 05/21/06) Subjective Above noted feels "OK" walking around in hallways CT noted notes reviewed Objective Last 24 Hour Vital Signs Date Time Temp Pulse Resp B/P (MAP) Pulse Ox O2 Delivery O2 Flow Rate FiO2 11/13/17 12:04 97.9 11/13/17 09:17 97.9 11/13/17 08:47 97.9 11/13/17 08:00 97.7 69 20 124/70 100 97.7 11/13/17 04:00 97.9 80 19 104/64 97 Room Air 97.9 11/13/17 00:00 97.5 83 19 115/72 100 Room Air 97.5 11/12/17 20:00 98.3 92 19 138/83 100 98.3 11/12/17 16:00 100.0 104 14 169/97 100 Room Air 100.0 Intake and Output 11/12/17 11/13/17 19:00 07:00 Intake Total 627.5 ml 980.0 ml Balance 627.5 ml 980.0 ml Intake Oral 250 ml IV Total 627.5 ml 730.0 ml # Voids 3 3 Laboratory Tests 11/12/17 16:37: Body Fluid Source Left pleural fluid, Body Fluid Volume 28, Body Fluid Appearance Hazy, Body Fluid pH 8.0, Body Fluid RBC 7975, Body Fluid Total Nucleated Cells 613, Body Fluid Polynuclear WBCs (%) 6, Body Fluid Mononuclear WBCs (%) 87, Body Fluid Mesothelial Cells (%) 7, Body Fluid Glucose [Pending], Body Fluid Total Protein [Pending] 11/13/17 07:42: White Blood Count 10.0, Red Blood Count 4.31, Hemoglobin 13.2, Hematocrit 39.6, Mean Corpuscular Volume 92, Mean Corpuscular Hemoglobin 30.6, Mean Corpuscular Hemoglobin Concent 33.3, Red Cell Distribution Width 15.5H, Platelet Count 226, Mean Platelet Volume 6.8, Neutrophils (%) (Auto) 54.2, Lymphocytes (%) (Auto) 32.6, Monocytes (%) (Auto) 11.1H, Eosinophils (%) (Auto) 1.5, Basophils (%) ( Auto) 0.6, Prothrombin Time 11.4, Prothromb Time International Ratio 1.1, Activated Partial Thromboplast Time 28, Sodium Level 138, Potassium Level 3.9, Chloride Level 104, Carbon Dioxide Level 24, Anion Gap 10, Blood Urea Nitrogen 13, Creatinine 0.9, Estimat Glomerular Filtration Rate > 60, Glucose Level 95, Lactic Acid Level 1.70, Calcium Level 9.2, Total Bilirubin 0.2, Aspartate Amino Transf (AST/SGOT) 41H, Alanine Aminotransferase (ALT/SGPT) 17, Alkaline Phosphatase 107, Total Protein 8.4H, Albumin 2.3L, Globulin 6.1, Albumin/ Globulin Ratio 0.4L Height (Feet): 5 Height (Inches): 6.00 Weight (Pounds): 129 Objective WDWN NCAT supple CTA RRR abd soft ND , mild diffuse TTP no edema non focal BRITTNEY LOVING Nov 13, 2017 13:31
[2017-11-13] MEDS ORDERED: Tubing IV Secondary IV ONE (15:17)
[2017-11-13] MEDS ORDERED: D5 1/2NS 1000ml IV ONE (15:17)
[2017-11-13 16:00] VITALS: BP 125/76
[2017-11-13] MEDS: TraZODone 100mg tab ORAL SCH (20:24)
[2017-11-13] MEDS: Zolpidem 5mg tab ORAL SCH (20:24)
[2017-11-13] MEDS: Atorvastatin 20mg tab ORAL SCH (20:25)
[2017-11-14] VITALS: BP 118/71
--- NOTE | 2017-11-14 03:30 | Consultation ---
DATE OF CONSULTATION: 11/13/2017 CONSULTING PHYSICIAN: Mena Goncalves M.D. HISTORY OF PRESENT ILLNESS: The patient is a 66-year-old female patient who is admitted to the hospital secondary to intractable abdominal pain and shortness of breath. She had an episode of high levels of anxiety. She also has a lot of anxiety secondary to the abdominal scan done and she is waiting for the results of this. She was in a lot of pain earlier today. She has a high level of anxiety because of waiting for the results and stress of her medical illness caused increasing mood lability and anxiety and agitation and that is why her attending physician has requested daily psychiatric consultation. PAST MEDICAL HISTORY: She has a history of abdominal pain and GI discomfort. Please see internal medicine note for further details of her medical history. ALLERGIES: None. SUBSTANCE ABUSE HISTORY: She denies any history of any drug and alcohol use. SOCIAL HISTORY: Financially supported by [employer], [employer], and Medicare as well. She also lives in a private residence. PSYCHOTROPIC MEDICATIONS: On admission, Cymbalta 60 mg daily, Wellbutrin 100 mg daily, Topamax 25 mg twice a day, trazodone 200 mg at bedtime, Neurontin 300 mg three times a day, and Ativan 1 mg every four hours IV. MEDICAL HISTORY: Abdominal pain, shortness of breath. Please see internal medicine notes for further details. PSYCHIATRIC HISTORY: Major depressive disorder, mild, recurrent as well as generalized anxiety disorder. She is denying any previous psychiatric admissions. MENTAL STATUS EXAMINATION: She is somewhat thin, she is well groomed. Attitude irritable. Affect is guarded and restricted. Intellect fair. Mood depressed and anxious. Orientation x2. Attention span is poor. Speech apparently is normal volume. Thought process, linear and goal directed. She denies any auditory or visual hallucinations or delusions. Denies any current suicidal or homicidal ideations. Her insight and judgement is fair. DIAGNOSES: 1. Major depressive disorder, mild, recurrent, without psychotic features, rule out bipolar 2. 2. Medical illness, intractable abdominal pain, shortness of breath. 3. Psychosocial stressors, financial. PLAN: Plan for this patient is to treat her with a mood regimen consisting of Cymbalta 60 mg p.o. daily and Wellbutrin at a dose of 100 mg p.o. daily, Topamax 25 mg twice a day to stabilize her mood, trazodone 200 mg at bedtime, Neurontin 300 mg three times a day, and also I am going to increase the dose of Ativan to 2 mg IV q.6 h. p.r.n. anxiety and agitation and Ambien 10 mg at bedtime. A 20 minutes of supportive therapy was provided. Chart was reviewed and discussed with staff. Seen and assessed at bedside. I would like to thank, Dr. Barber Dial, for this interesting consultation. Mena Goncalves M.D. DR: Marilu JOB#: [id number] CC:
[2017-11-14 04:00] VITALS: BP 95/55
--- NOTE | 2017-11-14 06:30 | Progress Note ---
DATE: 11/14/2017 SUBJECTIVE: The patient is a 66-year-old female, high levels of anxiety and abdominal pain, agitation, and mood lability. That is why, her attending has requested daily psychiatric consultation. MENTAL STATUS EXAMINATION: The patient is a 66-year-old female. Confused, disorganized, paranoid, depressed. Denies suicidal or homicidal thoughts. Denies auditory or visual hallucinations or delusions. Insight and judgement is fair. DIAGNOSIS: Major depressive disorder. PLAN: Treated with Neurontin 300 mg three times a day, Topamax 25 mg twice a day, trazodone 200 mg at bedtime, Ambien 10 mg at bedtime, Wellbutrin 100 mg daily, and Cymbalta 60 mg daily. Provided 18 to 20 minutes of supportive therapy. Seen and assessed at bedside. Chart was reviewed and discussed with staff. Mena Goncalves M.D. DR: MIKHAIL JOB#: [id number] CC:
[2017-11-14 07:24] LABS: ANION GAP 7 mmol/L (5-15); BLOOD UREA NITROGEN 11 mg/dL (7-18); CARBON DIOXIDE 26 MMOL/L (21-32); CHLORIDE 103 MMOL/L (98-107); CREATININE 0.8 MG/DL (0.55-1.30); POTASSIUM 3.4 MMOL/L (3.5-5.1); SODIUM 136 MMOL/L (136-145)
[2017-11-14 07:28] LABS: BASOPHILS % (AUTO) 0.9 % (0.0-2.0); EOSINOPHILS % (AUTO) 1.4 % (0.0-3.0); HEMATOCRIT 37.1 % (37.0-47.0); HEMOGLOBIN 12.1 G/DL (12.0-16.0); MEAN CORPUSCULAR VOLUME 92 FL (80-99); MONOCYTES % (AUTO) 10.8 % (1.0-10.0); NEUTROPHILS % (AUTO) 53.9 % (45.0-75.0); PLATELET COUNT 227 K/UL (150-450); RED BLOOD COUNT 4.05 M/UL (4.20-5.40); RED CELL DISTRIBUTION WIDTH 14.9 % (11.6-14.8); WHITE BLOOD COUNT 9.2 K/UL (4.8-10.8)
[2017-11-14 08:00] VITALS: BP 114/70
--- NOTE | 2017-11-14 08:20 | General Progress Note ---
Assessment/Plan Problem List: (1) Crohn's disease ICD Codes: K50.90 - Crohn's disease SNOMED: 76317672 Qualifiers: Qualified Codes: K50.919 - Crohn's disease, unspecified, with unspecified complications (2) Opioid dependence ICD Codes: F11.20 - Opioid dependence SNOMED: 63767097 (3) Intractable abdominal pain ICD Codes: R10.9 - Unspecified abdominal pain SNOMED: 24424152, 268904972 (4) COPD (chronic obstructive pulmonary disease) ICD Codes: J44.9 - Chronic obstructive pulmonary disease SNOMED: 79397577 (5) Shortness of breath (6) SOB (shortness of breath) ICD Codes: R06.02 - Shortness of breath SNOMED: 688041802 (7) UTI (urinary tract infection) ICD Codes: N39.0 - Urinary tract infection, site not specified SNOMED: 06307235 Status: unchanged Assessment/Plan ot pt diet pain control sx eval cbc bmp am brotman aru eval Subjective Constitutional: Reports: weakness Allergies: Coded Allergies: No Known Allergies (Verified , 05/21/06) All Systems: reviewed and negative except above Subjective sleepy calm in bed Objective Last 24 Hour Vital Signs Date Time Temp Pulse Resp B/P (MAP) Pulse Ox O2 Delivery O2 Flow Rate FiO2 11/14/17 04:00 97.2 75 20 95/55 95 Room Air 97.2 11/14/17 00:00 97.6 83 20 118/71 95 Room Air 97.6 11/13/17 16:40 97.9 11/13/17 16:11 97.9 11/13/17 16:00 97.0 89 20 125/76 93 Room Air 97.0 11/13/17 12:04 97.9 11/13/17 12:00 97.3 83 20 139/89 100 97.3 11/13/17 12:00 97.3 83 20 139/89 100 Room Air 97.3 11/13/17 09:17 97.9 11/13/17 08:47 97.9 Intake and Output 11/13/17 11/14/17 19:00 07:00 Intake Total 260.0 ml 1210.0 ml Balance 260.0 ml 1210.0 ml Intake Oral 500 ml IV Total 260.0 ml 710.0 ml # Voids 3 3 # Bowel Movements 1 Laboratory Tests 11/14/17 05:35: White Blood Count 9.2, Red Blood Count 4.05L, Hemoglobin 12.1, Hematocrit 37.1, Mean Corpuscular Volume 92, Mean Corpuscular Hemoglobin 30.0, Mean Corpuscular Hemoglobin Concent 32.7, Red Cell Distribution Width 14.9H, Platelet Count 227, Mean Platelet Volume 7.3, Neutrophils (%) (Auto) 53.9, Lymphocytes (%) (Auto) 33.0, Monocytes (%) (Auto) 10.8H, Eosinophils (%) (Auto) 1.4, Basophils (%) ( Auto) 0.9, Sodium Level 136, Potassium Level 3.4L, Chloride Level 103, Carbon Dioxide Level 26, Anion Gap 7, Blood Urea Nitrogen 11, Creatinine 0.8, Estimat Glomerular Filtration Rate > 60, Glucose Level 98, Calcium Level 9.0 Height (Feet): 5 Height (Inches): 6.00 Weight (Pounds): 129 General Appearance: lethargic EENT: normal ENT inspection Neck: normal alignment Cardiovascular: normal peripheral pulses, normal rate, regular rhythm Respiratory/Chest: chest wall non-tender, lungs clear, normal breath sounds Abdomen: normal bowel sounds, non tender, soft Extremities: normal inspection Edema: no edema noted Arm (L), no edema noted Arm (R), no edema noted Leg (L), no edema noted Leg (R), no edema noted Pedal (L), no edema noted Pedal (R), no edema noted Generalized Neurologic: motor weakness Skin: normal pigmentation, warm/dry BAYRON BENEDICT Nov 14, 2017 08:20
[2017-11-14] MEDS: Piperacillin/Tazobactam 3.375 GM in NS 110 ML IVPB SCH ×3 (09:15→23:39)
[2017-11-14] MEDS: Pantoprazole Inj IV SCH (09:23)
[2017-11-14] MEDS: Theophylline ER 100mg ORAL SCH ×2 (09:24→21:14)
[2017-11-14] MEDS: Topiramate 25mg tab ORAL SCH ×2 (09:24→21:14)
[2017-11-14] MEDS: DULoxetine 30mg cap ORAL SCH (09:24)
[2017-11-14] MEDS: Relistor 12mg/0.6ml Vial SUBQ SCH (09:25)
[2017-11-14] MEDS: Heparin 5000 units/ml inj SUBQ SCH ×2 (09:29→21:16)
--- NOTE | 2017-11-14 10:35 | General Surgery Progress Note ---
General Surgery-Progress Note Subjective Symptoms: improved Additional Comments happy with dilaudid. doing well. still pain but improved. no acute events. passing flatus Objective Last 24 Hour Vital Signs Date Time Temp Pulse Resp B/P (MAP) Pulse Ox O2 Delivery O2 Flow Rate FiO2 11/14/17 08:00 98.7 83 19 114/70 93 Room Air 98.7 11/14/17 04:00 97.2 75 20 95/55 95 Room Air 97.2 11/14/17 00:00 97.6 83 20 118/71 95 Room Air 97.6 11/13/17 16:40 97.9 11/13/17 16:11 97.9 11/13/17 16:00 97.0 89 20 125/76 93 Room Air 97.0 11/13/17 12:04 97.9 11/13/17 12:00 97.3 83 20 139/89 100 97.3 11/13/17 12:00 97.3 83 20 139/89 100 Room Air 97.3 I&O Intake and Output 11/13/17 11/14/17 19:00 07:00 Intake Total 260.0 ml 1210.0 ml Balance 260.0 ml 1210.0 ml Intake Oral 500 ml IV Total 260.0 ml 710.0 ml # Voids 3 3 # Bowel Movements 1 Drains: none Cardiovascular: RSR Respiratory: clear Abdomen: soft, distended, present bowel sounds Extremities: no edema, no tenderness, no cyanosis Laboratory Tests Test 11/14/17 05:35 White Blood Count 9.2 K/UL (4.8-10.8) Red Blood Count 4.05 M/UL (4.20-5.40) L Hemoglobin 12.1 G/DL (12.0-16.0) Hematocrit 37.1 % (37.0-47.0) Mean Corpuscular Volume 92 FL (80-99) Mean Corpuscular Hemoglobin 30.0 PG (27.0-31.0) Mean Corpuscular Hemoglobin Concent 32.7 G/DL (32.0-36.0) Red Cell Distribution Width 14.9 % (11.6-14.8) H Platelet Count 227 K/UL (150-450) Mean Platelet Volume 7.3 FL (6.5-10.1) Neutrophils (%) (Auto) 53.9 % (45.0-75.0) Lymphocytes (%) (Auto) 33.0 % (20.0-45.0) Monocytes (%) (Auto) 10.8 % (1.0-10.0) H Eosinophils (%) (Auto) 1.4 % (0.0-3.0) Basophils (%) (Auto) 0.9 % (0.0-2.0) Sodium Level 136 MMOL/L (136-145) Potassium Level 3.4 MMOL/L (3.5-5.1) L Chloride Level 103 MMOL/L (98-107) Carbon Dioxide Level 26 MMOL/L (21-32) Anion Gap 7 mmol/L (5-15) Blood Urea Nitrogen 11 mg/dL (7-18) Creatinine 0.8 MG/DL (0.55-1.30) Estimat Glomerular Filtration Rate > 60 mL/min (>60) Glucose Level 98 MG/DL (74-106) Calcium Level 9.0 MG/DL (8.5-10.1) Plan Problems: (1) Intractable abdominal pain Assessment & Plan: 66F with abdominal pain. very complex medical and surgical history. now with complex CT findings of left pleural effusion, left lower lung mass, large mediastinal and periaortic lymph nodes, new liver lesions, and air around the liver. unable to tell if bowel loop (possible blind end from prior surgery) noted in right upper quadrant above liver or if abscess or if free air. exam not consistent with perforation and no significant free fluid noted on CT or area of perforation. contrast into distal bowel without leak. initial leukocytosis resolved. low grade persistent fevers. recent cough. unfortunately no clear explanation as to patients current condition. lung mass , effusion, new liver masses, and nodes very concerning for malignant process. Exam stable compared to prior exams (patient seen during last admission and known to me). will need much more extensive work up. I discussed these findings with patient. I explained possible need for urgent surgery but given history and complex surgical history we will monitor clinically first. if declines will proceed with surgery which is VERY high risk in her. if stable will continue with work up. patient and partner express understand and agree with plan. s/p thoracentesis 11/12. awaiting cytology left EJ line not functional and removed. did not have other access so right EJ line placed by myself. if fails will need central venous access. -clear liquid diet today -monitor exam clinically -trend labs -iv abx -will follow with recs. thank you for this consultation. Wolf Quan Nov 14, 2017 10:35
[2017-11-14 12:00] VITALS: BP 136/86
[2017-11-14] MEDS: D5 1/2NS 1,000 ML IV SCH ×2 (13:28→23:39)
--- NOTE | 2017-11-14 14:17 | General Progress Note ---
Assessment/Plan Assessment/Plan Assessment - suspected SBO or PSBO - Crohn's disease - possible free air on xrays - surgery following - Pleural based mass with pleural effusion - r/o malignancy Recommendations - follow exam - abx - check fluid cytology - pulmonary opinion - Diet per surgery - IVF Subjective Allergies: Coded Allergies: No Known Allergies (Verified , 05/21/06) Subjective Above noted c/o abd pain Objective Last 24 Hour Vital Signs Date Time Temp Pulse Resp B/P (MAP) Pulse Ox O2 Delivery O2 Flow Rate FiO2 11/14/17 12:00 98.8 89 20 136/86 96 Room Air 98.8 11/14/17 11:01 98.7 11/14/17 10:31 98.7 11/14/17 08:00 98.7 83 19 114/70 93 Room Air 98.7 11/14/17 04:00 97.2 75 20 95/55 95 Room Air 97.2 11/14/17 00:00 97.6 83 20 118/71 95 Room Air 97.6 11/13/17 16:40 97.9 11/13/17 16:11 97.9 11/13/17 16:00 97.0 89 20 125/76 93 Room Air 97.0 Intake and Output 11/13/17 11/14/17 19:00 07:00 Intake Total 260.0 ml 1285.0 ml Balance 260.0 ml 1285.0 ml Intake Oral 500 ml IV Total 260.0 ml 785.0 ml # Voids 3 3 # Bowel Movements 1 Laboratory Tests 11/14/17 05:35: White Blood Count 9.2, Red Blood Count 4.05L, Hemoglobin 12.1, Hematocrit 37.1, Mean Corpuscular Volume 92, Mean Corpuscular Hemoglobin 30.0, Mean Corpuscular Hemoglobin Concent 32.7, Red Cell Distribution Width 14.9H, Platelet Count 227, Mean Platelet Volume 7.3, Neutrophils (%) (Auto) 53.9, Lymphocytes (%) (Auto) 33.0, Monocytes (%) (Auto) 10.8H, Eosinophils (%) (Auto) 1.4, Basophils (%) ( Auto) 0.9, Sodium Level 136, Potassium Level 3.4L, Chloride Level 103, Carbon Dioxide Level 26, Anion Gap 7, Blood Urea Nitrogen 11, Creatinine 0.8, Estimat Glomerular Filtration Rate > 60, Glucose Level 98, Calcium Level 9.0 Height (Feet): 5 Height (Inches): 6.00 Weight (Pounds): 129 Objective WDWN NCAT supple CTA RRR abd soft ND , mild diffuse TTP, L>R no edema non focal BRITTNEY LOVING Nov 14, 2017 14:17
[2017-11-14 16:00] VITALS: BP 135/81
--- NOTE | 2017-11-14 17:43 | General Progress Note ---
Assessment/Plan Assessment/Plan (1) Chronic abdominal pain (2) Chronic pancreatitis (3) Crohn's disease (4) Herniated nucleus pulposus, lumbar (5) Lumbar spondylosis (6) Radiculopathy of lumbar region Pt will be continued on Neurontin, Dilaudid and Norc and pt has intrathecal pump. Pt was d/w Dr. Malhotra and he concurred. Subjective Date patient seen: Nov 14, 2017 Time patient seen: 05:15 - pm Allergies: Coded Allergies: No Known Allergies (Verified , 05/21/06) Subjective Constitutional: Reports: weakness HEENT: Reports: no symptoms Cardiovascular: Reports: no symptoms Respiratory: Reports: no symptoms Gastrointestinal/Abdominal: Reports: abdominal pain Genitourinary: Reports: no symptoms Neurologic/Psychiatric: Reports: weakness Endocrine: Reports: no symptoms Hematologic/Lymphatic: Reports: no symptoms Subjective Patient is in bed and has been changed from Morphine to Dilaudid 0.5mg IV Q4H PRN, She is more comfortable. CT scan was reviewed showing possible malignancy. Objective Last 24 Hour Vital Signs Date Time Temp Pulse Resp B/P (MAP) Pulse Ox O2 Delivery O2 Flow Rate FiO2 11/14/17 16:00 99.3 91 20 135/81 97 Room Air 99.3 11/14/17 15:01 99.3 11/14/17 14:31 98.8 11/14/17 12:00 98.8 89 20 136/86 96 Room Air 98.8 11/14/17 10:31 98.7 11/14/17 08:00 98.7 83 19 114/70 93 Room Air 98.7 11/14/17 04:00 97.2 75 20 95/55 95 Room Air 97.2 11/14/17 00:00 97.6 83 20 118/71 95 Room Air 97.6 Intake and Output 11/13/17 11/14/17 19:00 07:00 Intake Total 260.0 ml 1285.0 ml Balance 260.0 ml 1285.0 ml Intake Oral 500 ml IV Total 260.0 ml 785.0 ml # Voids 3 3 # Bowel Movements 1 Laboratory Tests 11/14/17 05:35: White Blood Count 9.2, Red Blood Count 4.05L, Hemoglobin 12.1, Hematocrit 37.1, Mean Corpuscular Volume 92, Mean Corpuscular Hemoglobin 30.0, Mean Corpuscular Hemoglobin Concent 32.7, Red Cell Distribution Width 14.9H, Platelet Count 227, Mean Platelet Volume 7.3, Neutrophils (%) (Auto) 53.9, Lymphocytes (%) (Auto) 33.0, Monocytes (%) (Auto) 10.8H, Eosinophils (%) (Auto) 1.4, Basophils (%) ( Auto) 0.9, Sodium Level 136, Potassium Level 3.4L, Chloride Level 103, Carbon Dioxide Level 26, Anion Gap 7, Blood Urea Nitrogen 11, Creatinine 0.8, Estimat Glomerular Filtration Rate > 60, Glucose Level 98, Calcium Level 9.0 Height (Feet): 5 Height (Inches): 6.00 Weight (Pounds): 129 Objective General Appearance: no apparent distress, alert EENT: normal ENT inspection, TMs normal Neck: normal alignment, supple Cardiovascular: normal rate, regular rhythm Respiratory/Chest: decreased breath sounds Abdomen: tender, distended, intrathecal pump palpated Extremities: non-tender Edema: no edema noted Neurologic: alert, oriented x 3 Skin: warm/dry JOSE ARREDONDO Nov 14, 2017 17:43
[2017-11-14 20:00] VITALS: BP 111/76
[2017-11-14] MEDS: TraZODone 100mg tab ORAL SCH (21:14)
[2017-11-14] MEDS: Zolpidem 5mg tab ORAL SCH (21:14)
[2017-11-14] MEDS: Atorvastatin 20mg tab ORAL SCH (21:14)
[2017-11-15] VITALS: BP 107/65
[2017-11-15 04:00] VITALS: BP 98/61
--- NOTE | 2017-11-15 06:00 | Consultation ---
DATE OF CONSULTATION: 11/13/2017 PSYCHOTHERAPY CONSULTATION PROGRESS TREATING ATTENDING PHYSICIAN: Barber Dial D.O. HISTORY OF PRESENT ILLNESS: The patient is a 66-year-old female patient. The patient was admitted to the hospital for shortness of breath as well as abdominal pain. She has been complaining of anxiety, irritability, and her mood has been unstable. For this reason, she was referred for psychotherapeutic services. Clinician assessed this patient. The patient complains of constant anxiety and irritability. Due to her current medical condition, the morning of her pain, she was confused and more irritable report. The patient is very agitated and irritable. Denies suicidal or homicidal thoughts of ideation. Denies auditory or visual hallucinations. PAST MEDICAL HISTORY: Includes a history of COPD, CHF, Crohn disease, and abdominal pain. ALLERGIES: The patient has no known drug allergies. SUBSTANCE ABUSE HISTORY: The patient does have a history of smoking cigarettes. Denies history of alcohol use or illicit substance use. PSYCHIATRIC HISTORY: The patient has a history of depression and anxiety. The patient has been treated with psychotropic medications in the past. SOCIAL HISTORY: The patient is a 66-year-old female patient. She is a single female patient. Financially sustained through [employer]. The patient lives independently. MENTAL STATUS EXAMINATION: The patient is alert and oriented to person and place. Mood is anxious. Affect is blunted. Thought process is disorganized. The patient has poor attention and concentration. 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 PLAN: Clinician assessed the patient. Provided the patient with reality orientation and supportive psychotherapy. Given the patient's thoughts and feelings of depression, encouraging the patient to articulate her needs utilizing positive communication skills, providing coping skills, and relaxation exercises. Continue with behavioral management. This clinician has reviewed the patient's chart and discussed the treatment with treatment team. Dilshad Abel PsyD. : VAISHALI JOB#: [id number] CC:
[2017-11-15 08:00] VITALS: BP 136/78
[2017-11-15] MEDS: Theophylline ER 100mg ORAL SCH ×2 (08:08→20:34)
[2017-11-15] MEDS: Topiramate 25mg tab ORAL SCH ×2 (08:08→20:34)
[2017-11-15] MEDS: DULoxetine 30mg cap ORAL SCH (08:08)
[2017-11-15] MEDS: Piperacillin/Tazobactam 3.375 GM in NS 110 ML IVPB SCH ×2 (08:08→16:20)
[2017-11-15] MEDS: Heparin 5000 units/ml inj SUBQ SCH ×2 (08:09→20:45)
--- NOTE | 2017-11-15 08:31 | General Progress Note ---
Assessment/Plan Assessment/Plan (1) Chronic abdominal pain (2) Chronic pancreatitis (3) Crohn's disease (4) Herniated nucleus pulposus, lumbar (5) Lumbar spondylosis (6) Radiculopathy of lumbar region Pt will be continued on Neurontin, Dilaudid and Norc and pt has intrathecal pump. Pt was d/w Dr. Malhotra and he concurred. Subjective Date patient seen: Nov 15, 2017 Time patient seen: 07:00 - am Allergies: Coded Allergies: No Known Allergies (Verified , 05/21/06) Subjective Constitutional: Reports: weakness HEENT: Reports: no symptoms Cardiovascular: Reports: no symptoms Respiratory: Reports: no symptoms Gastrointestinal/Abdominal: Reports: abdominal pain Genitourinary: Reports: no symptoms Neurologic/Psychiatric: Reports: weakness Endocrine: Reports: no symptoms Hematologic/Lymphatic: Reports: no symptoms Subjective Patient continues to c/o pain which is severe at times. The medications have helped to reduce her pain and she has no new complaints at this time. Objective Last 24 Hour Vital Signs Date Time Temp Pulse Resp B/P (MAP) Pulse Ox O2 Delivery O2 Flow Rate FiO2 11/15/17 04:00 98.0 77 20 98/61 100 98.0 11/15/17 00:00 99.2 82 20 107/65 100 99.2 11/15/17 00:00 Room Air 11/14/17 20:00 Room Air 11/14/17 20:00 99.5 93 19 111/76 100 99.5 11/14/17 19:01 99.3 11/14/17 18:31 99.3 11/14/17 16:00 99.3 91 20 135/81 97 Room Air 99.3 11/14/17 14:31 98.8 11/14/17 12:00 98.8 89 20 136/86 96 Room Air 98.8 11/14/17 10:31 98.7 Intake and Output 11/14/17 11/15/17 19:00 07:00 Intake Total 965.0 ml 540.0 ml Balance 965.0 ml 540.0 ml Intake Oral 480 ml IV Total 485.0 ml 540.0 ml # Voids 3 2 Laboratory Tests 11/15/17 07:05: White Blood Count [Pending], Red Blood Count [Pending], Hemoglobin [Pending], Hematocrit [Pending], Mean Corpuscular Volume [Pending], Mean Corpuscular Hemoglobin [Pending], Mean Corpuscular Hemoglobin Concent [Pending], Red Cell Distribution Width [Pending], Platelet Count [Pending], Mean Platelet Volume [ Pending], Neutrophils (%) (Auto) [Pending], Lymphocytes (%) (Auto) [Pending], Monocytes (%) (Auto) [Pending], Eosinophils (%) (Auto) [Pending], Basophils (%) (Auto) [Pending], Sodium Level [Pending], Potassium Level [Pending], Chloride Level [Pending], Carbon Dioxide Level [Pending], Blood Urea Nitrogen [Pending], Creatinine [Pending], Estimat Glomerular Filtration Rate [Pending], Glucose Level [Pending], Calcium Level [Pending] Height (Feet): 5 Height (Inches): 6.00 Weight (Pounds): 129 Objective General Appearance: no apparent distress, alert EENT: normal ENT inspection, TMs normal Neck: normal alignment, supple Cardiovascular: normal rate, regular rhythm Respiratory/Chest: decreased breath sounds Abdomen: tender, distended, intrathecal pump palpated Extremities: non-tender Edema: no edema noted Neurologic: alert, oriented x 3 Skin: warm/dry JOSE ARREDONDO Nov 15, 2017 08:31
[2017-11-15 08:40] LABS: BASOPHILS % (AUTO) 0.7 % (0.0-2.0); EOSINOPHILS % (AUTO) 1.7 % (0.0-3.0); HEMATOCRIT 39.7 % (37.0-47.0); HEMOGLOBIN 13.2 G/DL (12.0-16.0); LYMPHOCYTES % (AUTO) 29.4 % (20.0-45.0); MEAN CORPUSCULAR VOLUME 92 FL (80-99); MONOCYTES % (AUTO) 8.2 % (1.0-10.0); NEUTROPHILS % (AUTO) 59.9 % (45.0-75.0); PLATELET COUNT 228 K/UL (150-450); RED BLOOD COUNT 4.34 M/UL (4.20-5.40); WHITE BLOOD COUNT 9.2 K/UL (4.8-10.8)
[2017-11-15 09:32] LABS: ANION GAP 9 mmol/L (5-15); BLOOD UREA NITROGEN 10 mg/dL (7-18); CALCIUM 9.2 MG/DL (8.5-10.1); CARBON DIOXIDE 25 MMOL/L (21-32); CHLORIDE 103 MMOL/L (98-107); CREATININE 0.9 MG/DL (0.55-1.30); POTASSIUM 3.6 MMOL/L (3.5-5.1); SODIUM 136 MMOL/L (136-145)
[2017-11-15] MEDS: Relistor 12mg/0.6ml Vial SUBQ SCH (09:36)
--- NOTE | 2017-11-15 10:55 | GI Progress Note ---
Assessment/Plan Problems: (1) Crohn's disease ICD Codes: K50.90 - Crohn's disease SNOMED: 63079715 Qualifiers: Qualified Codes: K50.919 - Crohn's disease, unspecified, with unspecified complications (2) Opioid dependence ICD Codes: F11.20 - Opioid dependence SNOMED: 55708669 (3) SBO (small bowel obstruction) ICD Codes: K56.609 - Unspecified intestinal obstruction, unspecified as to partial versus complete obstruction SNOMED: 928491448 (4) Chronic abdominal pain Status: stable Status Narrative Discussed with Dr. Gallegos. Assessment/Plan Assessment - suspected SBO or PSBO - Crohn's disease - possible free air on xrays - surgery following - Pleural based mass with pleural effusion - r/o malignancy Recommendations - follow exam - abx - check fluid cytology - pulmonary opinion - Diet per surgery - IVF Subjective Gastrointestinal/Abdominal: Reports: abdominal pain Objective Last 24 Hour Vital Signs Date Time Temp Pulse Resp B/P (MAP) Pulse Ox O2 Delivery O2 Flow Rate FiO2 11/15/17 10:25 97.2 11/15/17 10:13 97.2 11/15/17 09:14 97.2 11/15/17 08:00 97.2 87 21 136/78 97 Room Air 97.2 11/15/17 04:00 98.0 77 20 98/61 100 98.0 11/15/17 00:00 99.2 82 20 107/65 100 99.2 11/15/17 00:00 Room Air 11/14/17 20:00 Room Air 11/14/17 20:00 99.5 93 19 111/76 100 99.5 11/14/17 19:01 99.3 11/14/17 18:31 99.3 11/14/17 16:00 99.3 91 20 135/81 97 Room Air 99.3 11/14/17 14:31 98.8 11/14/17 12:00 98.8 89 20 136/86 96 Room Air 98.8 Intake and Output 11/14/17 11/15/17 19:00 07:00 Intake Total 965.0 ml 540.0 ml Balance 965.0 ml 540.0 ml Intake Oral 480 ml IV Total 485.0 ml 540.0 ml # Voids 3 2 Laboratory Tests Test 11/15/17 07:05 White Blood Count 9.2 K/UL (4.8-10.8) Red Blood Count 4.34 M/UL (4.20-5.40) Hemoglobin 13.2 G/DL (12.0-16.0) Hematocrit 39.7 % (37.0-47.0) Mean Corpuscular Volume 92 FL (80-99) Mean Corpuscular Hemoglobin 30.4 PG (27.0-31.0) Mean Corpuscular Hemoglobin Concent 33.2 G/DL (32.0-36.0) Red Cell Distribution Width 15.0 % (11.6-14.8) H Platelet Count 228 K/UL (150-450) Mean Platelet Volume 6.6 FL (6.5-10.1) Neutrophils (%) (Auto) 59.9 % (45.0-75.0) Lymphocytes (%) (Auto) 29.4 % (20.0-45.0) Monocytes (%) (Auto) 8.2 % (1.0-10.0) Eosinophils (%) (Auto) 1.7 % (0.0-3.0) Basophils (%) (Auto) 0.7 % (0.0-2.0) Sodium Level 136 MMOL/L (136-145) Potassium Level 3.6 MMOL/L (3.5-5.1) Chloride Level 103 MMOL/L (98-107) Carbon Dioxide Level 25 MMOL/L (21-32) Anion Gap 9 mmol/L (5-15) Blood Urea Nitrogen 10 mg/dL (7-18) Creatinine 0.9 MG/DL (0.55-1.30) Estimat Glomerular Filtration Rate > 60 mL/min (>60) Glucose Level 90 MG/DL (74-106) Calcium Level 9.2 MG/DL (8.5-10.1) Height (Feet): 5 Height (Inches): 6.00 Weight (Pounds): 129 General Appearance: WD/WN, no apparent distress, alert, thin Cardiovascular: normal rate Respiratory/Chest: normal breath sounds, no respiratory distress Abdominal Exam: normal bowel sounds, non tender, soft Extremities: normal range of motion, non-tender Tara Scott N.PDeng Nov 15, 2017 10:55
[2017-11-15 12:00] VITALS: BP 111/79
--- NOTE | 2017-11-15 12:34 | General Progress Note ---
Assessment/Plan Problem List: (1) Crohn's disease ICD Codes: K50.90 - Crohn's disease SNOMED: 94705750 Qualifiers: Qualified Codes: K50.919 - Crohn's disease, unspecified, with unspecified complications (2) Opioid dependence ICD Codes: F11.20 - Opioid dependence SNOMED: 43598654 (3) Intractable abdominal pain ICD Codes: R10.9 - Unspecified abdominal pain SNOMED: 09542235, 100126435 (4) COPD (chronic obstructive pulmonary disease) ICD Codes: J44.9 - Chronic obstructive pulmonary disease SNOMED: 29597859 (5) Shortness of breath (6) SOB (shortness of breath) ICD Codes: R06.02 - Shortness of breath SNOMED: 398979092 (7) UTI (urinary tract infection) ICD Codes: N39.0 - Urinary tract infection, site not specified SNOMED: 68990522 Status: unchanged Assessment/Plan ot pt diet pain control sx eval cbc bmp am brotman aru eval Subjective Constitutional: Reports: weakness Allergies: Coded Allergies: No Known Allergies (Verified , 05/21/06) All Systems: reviewed and negative except above Subjective sleepy calm in bed some general pain Objective Last 24 Hour Vital Signs Date Time Temp Pulse Resp B/P (MAP) Pulse Ox O2 Delivery O2 Flow Rate FiO2 11/15/17 12:00 98.4 98 20 111/79 97 Room Air 98.4 11/15/17 10:55 97.2 11/15/17 10:25 97.2 11/15/17 10:13 97.2 11/15/17 09:14 97.2 11/15/17 08:00 97.2 87 21 136/78 97 Room Air 97.2 11/15/17 04:00 98.0 77 20 98/61 100 98.0 11/15/17 00:00 99.2 82 20 107/65 100 99.2 11/15/17 00:00 Room Air 11/14/17 20:00 Room Air 11/14/17 20:00 99.5 93 19 111/76 100 99.5 11/14/17 18:31 99.3 11/14/17 16:00 99.3 91 20 135/81 97 Room Air 99.3 11/14/17 14:31 98.8 Intake and Output 11/14/17 11/15/17 19:00 07:00 Intake Total 965.0 ml 540.0 ml Balance 965.0 ml 540.0 ml Intake Oral 480 ml IV Total 485.0 ml 540.0 ml # Voids 3 2 Laboratory Tests 11/15/17 07:05: White Blood Count 9.2, Red Blood Count 4.34, Hemoglobin 13.2, Hematocrit 39.7, Mean Corpuscular Volume 92, Mean Corpuscular Hemoglobin 30.4, Mean Corpuscular Hemoglobin Concent 33.2, Red Cell Distribution Width 15.0H, Platelet Count 228, Mean Platelet Volume 6.6, Neutrophils (%) (Auto) 59.9, Lymphocytes (%) (Auto) 29.4, Monocytes (%) (Auto) 8.2, Eosinophils (%) (Auto) 1.7, Basophils (%) (Auto ) 0.7, Sodium Level 136, Potassium Level 3.6, Chloride Level 103, Carbon Dioxide Level 25, Anion Gap 9, Blood Urea Nitrogen 10, Creatinine 0.9, Estimat Glomerular Filtration Rate > 60, Glucose Level 90, Calcium Level 9.2 Height (Feet): 5 Height (Inches): 6.00 Weight (Pounds): 129 General Appearance: lethargic EENT: normal ENT inspection Neck: normal alignment Cardiovascular: normal peripheral pulses, normal rate, regular rhythm Respiratory/Chest: chest wall non-tender, lungs clear, normal breath sounds Abdomen: soft, decreased bowel sounds Extremities: normal inspection Edema: no edema noted Arm (L), no edema noted Arm (R), no edema noted Leg (L), no edema noted Leg (R), no edema noted Pedal (L), no edema noted Pedal (R), no edema noted Generalized Neurologic: responsive, motor weakness Skin: normal pigmentation, warm/dry BAYRON BENEDICT Nov 15, 2017 12:34
[2017-11-15] MEDS: LORazepam Inj 2mg/ml 1ml IV PRN (13:08)
--- NOTE | 2017-11-15 13:11 | Infectious Diseases Prog Note ---
Assessment/Plan Assessment/Plan ASSESSMENT: The patient is a 66-year-old female with, Low-grade fever. probable due to SBO , improving Status post leukocytosis. Probable small bowel obstruction Recent history of polymicrobial gram-negative bacteremia including Stenotrophomonas maltophilia and Enterobacter. History of Aggie esophagitis. History of C. difficile in the past. Air anterior to the liver , ? free intraperitoneal air ( Surg doubt perforation ) Lung and liver masses Ro Malignancy CT: Pleural-based mass at the left lung base / Moderate-sized left pleural effusion, left-sided pleural nodularity and retroperitoneal and paraspinal nodules/masses. Left inferior hilar mass lesion partially visualized. New low- attenuation liver lesion ( concerning for malignancy/metastatic disease ) Pl effusion SP ultrasound-guided thoracentesis, 960 cc ( m/l 2/2 mets, no evid of Empyema ) -exudate fluid: WBC 613 (n 6), pH 8, lguc 98, prot 4.6 (serum 8.4); cx stain: GRAM STAIN Final GRAM STAIN RESULT FEW WHITE BLOOD CELLS NO ORGANISMS SEEN cx p Crohn's disease. History of bowel obstruction x2 with lysis of adhesions in 2004. COPD. History of chronic pain syndrome, on morphine pump. CVA in 2004. Seizure disorder. PLAN: cont the patient on empiric IV Zosyn d# 4/5 in the setting of SBO and pending pleural fluid cx Monitor cultures. ( pl effusion ) Monitor CBC and BMP. follow GI recommendations hem, surg f/u Subjective Allergies: Coded Allergies: No Known Allergies (Verified , 05/21/06) Subjective afebrile in ~72hrs no leukocytosis pleural fluid cx p Objective Vital Signs Last 24 Hour Vital Signs Date Time Temp Pulse Resp B/P (MAP) Pulse Ox O2 Delivery O2 Flow Rate FiO2 11/15/17 12:00 98.4 98 20 111/79 97 Room Air 98.4 11/15/17 10:55 97.2 11/15/17 10:25 97.2 11/15/17 10:13 97.2 11/15/17 09:14 97.2 11/15/17 08:00 97.2 87 21 136/78 97 Room Air 97.2 11/15/17 04:00 98.0 77 20 98/61 100 98.0 11/15/17 00:00 99.2 82 20 107/65 100 99.2 11/15/17 00:00 Room Air 11/14/17 20:00 Room Air 11/14/17 20:00 99.5 93 19 111/76 100 99.5 11/14/17 18:31 99.3 11/14/17 16:00 99.3 91 20 135/81 97 Room Air 99.3 11/14/17 14:31 98.8 Height (Feet): 5 Height (Inches): 6.00 Weight (Pounds): 129 Objective HEENT: anicteric Respiratory/Chest: normal breath sounds Cardiovascular: regular rhythm Abdomen: tender Microbiology Date/Time Source Procedure Growth Status 11/12/17 16:37 Pleural Fluid Gram Stain - Final Resulted 11/12/17 16:37 Pleural Fluid Body Fluid Culture - Preliminary Resulted Laboratory Tests Test 11/15/17 07:05 White Blood Count 9.2 K/UL (4.8-10.8) Red Blood Count 4.34 M/UL (4.20-5.40) Hemoglobin 13.2 G/DL (12.0-16.0) Hematocrit 39.7 % (37.0-47.0) Mean Corpuscular Volume 92 FL (80-99) Mean Corpuscular Hemoglobin 30.4 PG (27.0-31.0) Mean Corpuscular Hemoglobin Concent 33.2 G/DL (32.0-36.0) Red Cell Distribution Width 15.0 % (11.6-14.8) H Platelet Count 228 K/UL (150-450) Mean Platelet Volume 6.6 FL (6.5-10.1) Neutrophils (%) (Auto) 59.9 % (45.0-75.0) Lymphocytes (%) (Auto) 29.4 % (20.0-45.0) Monocytes (%) (Auto) 8.2 % (1.0-10.0) Eosinophils (%) (Auto) 1.7 % (0.0-3.0) Basophils (%) (Auto) 0.7 % (0.0-2.0) Sodium Level 136 MMOL/L (136-145) Potassium Level 3.6 MMOL/L (3.5-5.1) Chloride Level 103 MMOL/L (98-107) Carbon Dioxide Level 25 MMOL/L (21-32) Anion Gap 9 mmol/L (5-15) Blood Urea Nitrogen 10 mg/dL (7-18) Creatinine 0.9 MG/DL (0.55-1.30) Estimat Glomerular Filtration Rate > 60 mL/min (>60) Glucose Level 90 MG/DL (74-106) Calcium Level 9.2 MG/DL (8.5-10.1) Current Medications Medications (Trade) Dose Ordered Sig/Vaibhav Route PRN Reason Start Time Stop Time Status Last Admin Dose Admin Acetaminophen (Tylenol) 650 mg Q4H PRN ORAL fever 11/11/17 15:30 12/11/17 15:29 Acetaminophen/ Hydrocodone Bitart ([place] 10/325) 1 tab Q4H PRN ORAL Pain Scale (3-5) 11/13/17 12:30 11/20/17 08:29 11/15/17 09:14 Al Hydroxide/Mg Hydroxide (Mylanta II) 30 ml Q6H PRN ORAL dyspepsia 11/11/17 15:30 12/11/17 15:29 Atorvastatin Calcium (Lipitor) 40 mg BEDTIME ORAL 11/11/17 21:00 12/11/17 20:59 11/14/17 21:14 Bupropion HCl (Wellbutrin) 100 mg DAILY ORAL 11/12/17 09:00 12/12/17 08:59 11/15/17 08:08 Dextrose (Dextrose 50%) 50 ml STAT PRN IV Hypoglycemia BS<60mg/dL 11/11/17 15:30 12/11/17 15:29 Dextrose/Sodium Chloride 1,000 ml @ 75 mls/hr [id number] IV 11/11/17 17:00 12/11/17 16:59 11/14/17 23:39 Diphenhydramine HCl (Benadryl) 25 mg Q6H PRN ORAL Itching/Pruritis 11/11/17 15:30 12/11/17 15:29 Duloxetine HCl (Cymbalta) 60 mg DAILY ORAL 11/12/17 09:00 12/12/17 08:59 11/15/17 08:08 Gabapentin (Neurontin) 300 mg THREE TIMES A DAY ORAL 11/12/17 10:00 12/12/17 09:59 11/15/17 08:08 Heparin Sodium (Porcine) (Heparin 5000 units/ml) 5,000 units EVERY 12 HOURS SUBQ 11/11/17 21:00 12/11/17 20:59 11/15/17 08:09 Hydromorphone HCl (Dilaudid) 0.5 mg Q4H PRN IVP Mod-Severe Pain (4-10) if unab 11/13/17 21:30 11/20/17 21:29 11/15/17 10:25 Levetiracetam (Keppra) 1,000 mg Q8HR ORAL 11/11/17 22:00 12/11/17 21:59 11/15/17 06:20 Levothyroxine Sodium (Synthroid) 75 mcg ACBREAKFAST ORAL 11/12/17 06:30 12/12/17 06:29 11/15/17 06:20 Lorazepam (Ativan 2mg/ml 1ml) 2 mg Q6H PRN IV agitation 11/13/17 15:30 11/20/17 15:29 Methylnaltrexone [place] (Relistor) 12 mg DAILY SUBQ 11/12/17 10:15 12/12/17 10:14 11/15/17 09:36 Metoclopramide HCl (Reglan) 10 mg Q6H PRN IVP Unrelieved Severe Nausea 11/11/17 15:30 12/11/17 15:29 Nitroglycerin (Ntg) 0.4 mg Q5M X 3 DOSES PRN SL Prn Chest Pain 11/11/17 15:30 12/11/17 15:29 Ondansetron HCl (Zofran) 4 mg Q6H PRN IVP Nausea & Vomiting 11/11/17 15:30 12/11/17 15:29 11/12/17 12:37 Pantoprazole (Protonix) 40 mg DAILY ORAL 11/15/17 09:00 12/15/17 08:59 11/15/17 08:08 Piperacillin Sod/ Tazobactam Sod 3.375 gm/Sodium Chloride 110 ml @ 27.5 mls/hr Q8H IVPB 11/12/17 16:00 11/19/17 15:59 11/15/17 08:08 Polyethylene Glycol (Miralax) 17 gm HSPRN PRN ORAL Constipation 11/11/17 15:30 12/11/17 15:29 Promethazine HCl 25 mg/Sodium Chloride 56 ml @ 110 mls/hr Q6H PRN IV Refractory N/V 11/11/17 15:30 12/11/17 15:29 Simethicone (Mylicon) 80 mg QIDPRN PRN ORAL gas 11/12/17 10:00 12/12/17 09:59 Temazepam (Restoril) 15 mg HSPRN PRN ORAL Insomnia 11/11/17 15:30 11/18/17 15:29 Theophylline ([place]) 100 mg Q12HR ORAL 11/11/17 21:00 12/11/17 20:59 11/15/17 08:08 Topiramate (Topamax) 25 mg EVERY 12 HOURS ORAL 11/11/17 21:00 12/11/17 20:59 11/15/17 08:08 Trazodone HCl (Desyrel) 200 mg BEDTIME ORAL 11/11/17 21:00 12/11/17 20:59 11/14/17 21:14 Zolpidem Tartrate (Ambien) 5 mg QHS ORAL 11/13/17 21:00 11/20/17 20:59 11/14/17 21:14 Kathleen Lafleur M.D. Nov 15, 2017 13:11
--- NOTE | 2017-11-15 13:56 | General Surgery Progress Note ---
General Surgery-Progress Note Subjective Symptoms: improved Additional Comments pain improved. no acute events. wants to go home. Objective Last 24 Hour Vital Signs Date Time Temp Pulse Resp B/P (MAP) Pulse Ox O2 Delivery O2 Flow Rate FiO2 11/15/17 12:00 98.4 98 20 111/79 97 Room Air 98.4 11/15/17 10:55 97.2 11/15/17 10:25 97.2 11/15/17 10:13 97.2 11/15/17 09:14 97.2 11/15/17 08:00 97.2 87 21 136/78 97 Room Air 97.2 11/15/17 04:00 98.0 77 20 98/61 100 98.0 11/15/17 00:00 99.2 82 20 107/65 100 99.2 11/15/17 00:00 Room Air 11/14/17 20:00 Room Air 11/14/17 20:00 99.5 93 19 111/76 100 99.5 11/14/17 18:31 99.3 11/14/17 16:00 99.3 91 20 135/81 97 Room Air 99.3 11/14/17 14:31 98.8 I&O Intake and Output 11/14/17 11/15/17 19:00 07:00 Intake Total 965.0 ml 540.0 ml Balance 965.0 ml 540.0 ml Intake Oral 480 ml IV Total 485.0 ml 540.0 ml # Voids 3 2 Drains: none Cardiovascular: RSR Respiratory: clear Abdomen: soft, distended, non-tender, present bowel sounds Extremities: no edema, no tenderness, no cyanosis Laboratory Tests Test 11/15/17 07:05 White Blood Count 9.2 K/UL (4.8-10.8) Red Blood Count 4.34 M/UL (4.20-5.40) Hemoglobin 13.2 G/DL (12.0-16.0) Hematocrit 39.7 % (37.0-47.0) Mean Corpuscular Volume 92 FL (80-99) Mean Corpuscular Hemoglobin 30.4 PG (27.0-31.0) Mean Corpuscular Hemoglobin Concent 33.2 G/DL (32.0-36.0) Red Cell Distribution Width 15.0 % (11.6-14.8) H Platelet Count 228 K/UL (150-450) Mean Platelet Volume 6.6 FL (6.5-10.1) Neutrophils (%) (Auto) 59.9 % (45.0-75.0) Lymphocytes (%) (Auto) 29.4 % (20.0-45.0) Monocytes (%) (Auto) 8.2 % (1.0-10.0) Eosinophils (%) (Auto) 1.7 % (0.0-3.0) Basophils (%) (Auto) 0.7 % (0.0-2.0) Sodium Level 136 MMOL/L (136-145) Potassium Level 3.6 MMOL/L (3.5-5.1) Chloride Level 103 MMOL/L (98-107) Carbon Dioxide Level 25 MMOL/L (21-32) Anion Gap 9 mmol/L (5-15) Blood Urea Nitrogen 10 mg/dL (7-18) Creatinine 0.9 MG/DL (0.55-1.30) Estimat Glomerular Filtration Rate > 60 mL/min (>60) Glucose Level 90 MG/DL (74-106) Calcium Level 9.2 MG/DL (8.5-10.1) Plan Problems: (1) Intractable abdominal pain Assessment & Plan: 66F with abdominal pain. very complex medical and surgical history. now with complex CT findings of left pleural effusion, left lower lung mass, large mediastinal and periaortic lymph nodes, new liver lesions, and air around the liver. unable to tell if bowel loop (possible blind end from prior surgery) noted in right upper quadrant above liver or if abscess or if free air. exam not consistent with perforation and no significant free fluid noted on CT or area of perforation. contrast into distal bowel without leak. initial leukocytosis resolved. low grade persistent fevers. recent cough. unfortunately no clear explanation as to patients current condition. lung mass , effusion, new liver masses, and nodes very concerning for malignant process. Exam stable compared to prior exams (patient seen during last admission and known to me). will need much more extensive work up. I discussed these findings with patient. I explained possible need for urgent surgery but given history and complex surgical history we will monitor clinically first. if declines will proceed with surgery which is VERY high risk in her. if stable will continue with work up. patient and partner express understand and agree with plan. s/p thoracentesis 11/12. awaiting cytology left EJ line not functional and removed. did not have other access so right EJ line placed by myself. if fails will need central venous access. -regular diet today -monitor exam clinically -trend labs -iv abx -will follow with recs. thank you for this consultation. Wolf Quan Nov 15, 2017 13:56
--- NOTE | 2017-11-15 14:15 | Progress Note ---
DATE: 11/15/2017 SUBJECTIVE: The patient is a 66-year-old female patient. She is admitted because she has abdominal pain, but she has some confusion, disorganized thought process, and mood lability. She has got no logical plan for her own self-care. She has got she does require daily follow up with her attending has requested daily psychiatric consultation. MENTAL STATUS EXAMINATION: The patient is a 66-year-old female. Appearance is disheveled. Attitude is irritable and agitated. Affect is guarded and restricted. Intellect poor. Mood depressed and anxious. Motor activity, psychomotor agitation. Attention span is poor. Orientation x2. Speech is pressured. Thought process, disorganized and illogical. Thought content, auditory hallucinations and paranoid delusions. Insight and judgment is poor. 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 PLAN: Plan for this patient is to treat her on Trazodone, Lamictal, and then also Remeron, Wellbutrin to help reduce depression and anxiety. Also Ativan as needed to reduce anxiety and agitation, trazodone 200 mg at bedtime for insomnia. An 18 to 20 minutes of supportive psychotherapy provided. Chart reviewed. Discussed with staff. Seen and assessed at bedside. Mena Goncalves M.D. DR: MIKHAIL JOB#: [id number] CC:
[2017-11-15] MEDS: D5 1/2NS 1,000 ML IV SCH (14:20)
--- NOTE | 2017-11-15 15:36 | Diagnostic Imaging Report ---
Indication: Abdominal pain Technique: Supine view of the abdomen Comparison: For 2017 Findings: A small amount of contrast from recent CT scan is seen in the distal colon. Gas-filled upper limits of normal caliber sigmoid colon is noted. Prominent gas-filled small bowel loops are again noted. Bowel gas pattern is essentially unchanged. The stomach is less distended. Pain pump, hernia mesh anchors are again demonstrated. Findings are overall unchanged Impression: Essentially unchanged from prior study of 11/10/2017 Note that contrast from prior CT scan is within the distal colon
[2017-11-15 15:52] VITALS: BP 134/94
[2017-11-15 20:00] VITALS: BP 126/81
[2017-11-15] MEDS: Atorvastatin 20mg tab ORAL SCH (20:34)
[2017-11-15] MEDS: Zolpidem 5mg tab ORAL SCH (20:34)
[2017-11-15] MEDS: TraZODone 100mg tab ORAL SCH (20:34)
[2017-11-16] MEDS: Piperacillin/Tazobactam 3.375 GM in NS 110 ML IVPB SCH ×4 (00:25→23:48)
[2017-11-16 00:30] VITALS: BP 114/77
[2017-11-16] MEDS: D5 1/2NS 1,000 ML IV SCH ×2 (00:39→17:00)
[2017-11-16 04:16] VITALS: BP 118/73
--- NOTE | 2017-11-16 05:00 | Progress Note ---
DATE: 11/16/2017 SUBJECTIVE: This is a female patient. She has abdominal pain, some confusion, and disorganized thought process worsened by stress of her medical illness that is why her attending has requested consistent and daily psychiatric consultation. She still has lot of anxiety, agitation, irritability as well, high levels of depression and anxiety. MENTAL STATUS EXAMINATION: This is a 66-year-old female. Appearance is disheveled. Attitude irritable and agitated. Affect guarded and restricted. Intellect poor. Mood depressed, anxious. Motor activity, psychomotor agitation. Attention span is poor. Orientation x2. Speech is pressured. Thought process, linear. Thought content, slight paranoia. Insight and judgment is poor. DIAGNOSIS: Major depressive disorder, severe and recurrent, rule out bipolar 2. PLAN: I am going to continue treating this patient with a medical regimen consisting of trazodone at a dose of 200 mg at bedtime. I am also going to treat her with Topamax at a dose of 25 mg q.12 hours, Cymbalta 90 mg daily to reduce depression and anxiety, Neurontin 300 mg three times a day, Wellbutrin 100 mg daily, and also Ativan 2 mg IV q. 6 h. p.r.n. anxiety and agitation. Provided 18 to 20 minutes supportive therapy. Seen and assessed at bedside. Mena Goncalves M.D. DR: Marilu JOB#: [id number] CC:
[2017-11-16 07:32] LABS: BASOPHILS % (AUTO) 0.6 % (0.0-2.0); EOSINOPHILS % (AUTO) 1.5 % (0.0-3.0); HEMATOCRIT 39.5 % (37.0-47.0); LYMPHOCYTES % (AUTO) 17.7 % (20.0-45.0); MEAN CORPUSCULAR VOLUME 91 FL (80-99); MONOCYTES % (AUTO) 8.3 % (1.0-10.0); PLATELET COUNT 228 K/UL (150-450); RED BLOOD COUNT 4.35 M/UL (4.20-5.40); WHITE BLOOD COUNT 10.3 K/UL (4.8-10.8)
[2017-11-16 07:49] LABS: ANION GAP 9 mmol/L (5-15); BLOOD UREA NITROGEN 9 mg/dL (7-18); CALCIUM 9.2 MG/DL (8.5-10.1); CARBON DIOXIDE 24 MMOL/L (21-32); CHLORIDE 102 MMOL/L (98-107); CREATININE 0.9 MG/DL (0.55-1.30); POTASSIUM 3.3 MMOL/L (3.5-5.1); SODIUM 135 MMOL/L (136-145)
[2017-11-16 08:00] VITALS: BP 117/78
--- NOTE | 2017-11-16 08:45 | Progress Note ---
DATE: 11/14/2017 NOTE: POOR AUDIO PSYCHOTHERAPY CONSULTATION PROGRESS NOTE TREATING ATTENDING PHYSICIAN: Barber Dial D.O. SUBJECTIVE: The patient is a 66-year-old female patient with a history of depression. The patient today has been depressed and helpless. due to her current medical condition physical pain, has been distressed. She states feelings of helplessness, hopelessness, and depression. MENTAL STATUS EXAMINATION: The patient is alert and oriented to person and place. Mood is dysphoric. Affect blunted. Thought process, disorganized. Thought content, very focused on pain. The patient has poor attention and concentration. Poor insight, judgment, and impulse control. PLAN: This clinician assessed this patient and assessed this patient's mental status. Provide the patient with reality orientation and supportive psychotherapy. Provide the patient with coping skills. Encouraging the patient to participate in treatment milieu. Recommend increasing her insight into her mental illness. Continue with behavioral management. Continue to help with her thoughts . This clinician has reviewed the patient's chart and discussed the treatment with treatment team. Dilshad Abel PsyD. DR: OFELIA JOB#: [id number] CC:
--- NOTE | 2017-11-16 08:49 | General Progress Note ---
Assessment/Plan Assessment/Plan (1) Chronic abdominal pain (2) Chronic pancreatitis (3) Crohn's disease (4) Herniated nucleus pulposus, lumbar (5) Lumbar spondylosis (6) Radiculopathy of lumbar region Pt will be continued on Neurontin, Dilaudid and [place] and pt has intrathecal pump. Pt was d/w Dr. Malhotra and he concurred. Subjective Date patient seen: Nov 16, 2017 Time patient seen: 07:00 - am Allergies: Coded Allergies: No Known Allergies (Verified , 05/21/06) Subjective Constitutional: Reports: weakness HEENT: Reports: no symptoms Cardiovascular: Reports: no symptoms Respiratory: Reports: no symptoms Gastrointestinal/Abdominal: Reports: abdominal pain Genitourinary: Reports: no symptoms Neurologic/Psychiatric: Reports: weakness Endocrine: Reports: no symptoms Hematologic/Lymphatic: Reports: no symptoms Subjective Patient is in bed showing no signs of distress with continued abdominal pain. Pain has been tolerated on the Dilaudid and [place]. Objective Last 24 Hour Vital Signs Date Time Temp Pulse Resp B/P (MAP) Pulse Ox O2 Delivery O2 Flow Rate FiO2 11/16/17 08:00 99.0 82 20 117/78 99 Room Air 99.0 11/16/17 04:16 97.9 86 18 118/73 98 97.9 11/16/17 00:30 97.7 88 20 114/77 100 97.7 11/15/17 20:00 97.8 94 18 126/81 100 97.8 11/15/17 18:43 97.7 11/15/17 18:13 97.7 11/15/17 15:52 97.7 101 19 134/94 96 Room Air 97.7 11/15/17 14:32 98.4 11/15/17 12:00 98.4 98 20 111/79 97 Room Air 98.4 11/15/17 10:25 97.2 11/15/17 10:13 97.2 11/15/17 09:14 97.2 Intake and Output 11/15/17 11/16/17 19:00 07:00 Intake Total 1085.0 ml 795.0 ml Balance 1085.0 ml 795.0 ml Intake Oral 480 ml 480 ml IV Total 605.0 ml 315.0 ml # Voids 3 4 Laboratory Tests 11/16/17 06:35: White Blood Count 10.3, Red Blood Count 4.35, Hemoglobin 13.0, Hematocrit 39.5, Mean Corpuscular Volume 91, Mean Corpuscular Hemoglobin 29.8, Mean Corpuscular Hemoglobin Concent 32.8, Red Cell Distribution Width 15.0H, Platelet Count 228, Mean Platelet Volume 7.7, Neutrophils (%) (Auto) 72.0, Lymphocytes (%) (Auto) 17.7L, Monocytes (%) (Auto) 8.3, Eosinophils (%) (Auto) 1.5, Basophils (%) (Auto ) 0.6, Sodium Level 135L, Potassium Level 3.3L, Chloride Level 102, Carbon Dioxide Level 24, Anion Gap 9, Blood Urea Nitrogen 9, Creatinine 0.9, Estimat Glomerular Filtration Rate > 60, Glucose Level 104, Calcium Level 9.2 Height (Feet): 5 Height (Inches): 6.00 Weight (Pounds): 129 Objective General Appearance: no apparent distress, alert EENT: normal ENT inspection, TMs normal Neck: normal alignment, supple Cardiovascular: normal rate, regular rhythm Respiratory/Chest: decreased breath sounds Abdomen: tender, distended, intrathecal pump palpated Extremities: non-tender Edema: no edema noted Neurologic: alert, oriented x 3 Skin: warm/dry JOSE ARREDONDO Nov 16, 2017 08:49
[2017-11-16] MEDS: Theophylline ER 100mg ORAL SCH ×2 (08:54→21:35)
[2017-11-16] MEDS: DULoxetine 30mg cap ORAL SCH (08:54)
[2017-11-16] MEDS: Topiramate 25mg tab ORAL SCH ×2 (08:55→21:34)
[2017-11-16] MEDS: Relistor 12mg/0.6ml Vial SUBQ SCH (08:57)
[2017-11-16] MEDS: Heparin 5000 units/ml inj SUBQ SCH ×2 (08:57→21:00)
[2017-11-16] MEDS ORDERED: D5 1/2NS 1000ml IV ONE (09:23)
[2017-11-16] MEDS ORDERED: Tubing IV Secondary IV ONE (09:23)
[2017-11-16 12:00] VITALS: BP 137/88
--- NOTE | 2017-11-16 13:46 | General Progress Note ---
Assessment/Plan Problem List: (1) Crohn's disease ICD Codes: K50.90 - Crohn's disease SNOMED: 60533437 Qualifiers: Qualified Codes: K50.919 - Crohn's disease, unspecified, with unspecified complications (2) Opioid dependence ICD Codes: F11.20 - Opioid dependence SNOMED: 31495521 (3) Intractable abdominal pain ICD Codes: R10.9 - Unspecified abdominal pain SNOMED: 45097838, 699807342 (4) COPD (chronic obstructive pulmonary disease) ICD Codes: J44.9 - Chronic obstructive pulmonary disease SNOMED: 06763264 (5) Shortness of breath (6) SOB (shortness of breath) ICD Codes: R06.02 - Shortness of breath SNOMED: 638585019 (7) UTI (urinary tract infection) ICD Codes: N39.0 - Urinary tract infection, site not specified SNOMED: 65328113 (8) Lung mass ICD Codes: R91.8 - Other nonspecific abnormal finding of lung field SNOMED: 816120236 Status: unchanged Assessment/Plan ot pt diet pain control sx eval cbc bmp am heme f/u Subjective Constitutional: Reports: weakness Allergies: Coded Allergies: No Known Allergies (Verified , 05/21/06) All Systems: reviewed and negative except above Subjective sleepy calm in bed some general pain Objective Last 24 Hour Vital Signs Date Time Temp Pulse Resp B/P (MAP) Pulse Ox O2 Delivery O2 Flow Rate FiO2 11/16/17 13:03 98.8 11/16/17 12:00 98.8 97 20 137/88 100 Room Air 98.8 11/16/17 09:41 99.0 11/16/17 09:11 99.0 11/16/17 08:00 99.0 82 20 117/78 99 Room Air 99.0 11/16/17 04:16 97.9 86 18 118/73 98 97.9 11/16/17 00:30 97.7 88 20 114/77 100 97.7 11/15/17 20:00 97.8 94 18 126/81 100 97.8 11/15/17 18:13 97.7 11/15/17 15:52 97.7 101 19 134/94 96 Room Air 97.7 11/15/17 14:32 98.4 Intake and Output 11/15/17 11/16/17 19:00 07:00 Intake Total 1085.0 ml 795.0 ml Balance 1085.0 ml 795.0 ml Intake Oral 480 ml 480 ml IV Total 605.0 ml 315.0 ml # Voids 3 4 Laboratory Tests 11/16/17 06:35: White Blood Count 10.3, Red Blood Count 4.35, Hemoglobin 13.0, Hematocrit 39.5, Mean Corpuscular Volume 91, Mean Corpuscular Hemoglobin 29.8, Mean Corpuscular Hemoglobin Concent 32.8, Red Cell Distribution Width 15.0H, Platelet Count 228, Mean Platelet Volume 7.7, Neutrophils (%) (Auto) 72.0, Lymphocytes (%) (Auto) 17.7L, Monocytes (%) (Auto) 8.3, Eosinophils (%) (Auto) 1.5, Basophils (%) (Auto ) 0.6, Sodium Level 135L, Potassium Level 3.3L, Chloride Level 102, Carbon Dioxide Level 24, Anion Gap 9, Blood Urea Nitrogen 9, Creatinine 0.9, Estimat Glomerular Filtration Rate > 60, Glucose Level 104, Calcium Level 9.2 Height (Feet): 5 Height (Inches): 6.00 Weight (Pounds): 129 General Appearance: lethargic EENT: normal ENT inspection Neck: normal alignment Cardiovascular: normal peripheral pulses, normal rate, regular rhythm Respiratory/Chest: chest wall non-tender, lungs clear, normal breath sounds Abdomen: normal bowel sounds, non tender, soft Extremities: normal inspection Edema: no edema noted Arm (L), no edema noted Arm (R), no edema noted Leg (L), no edema noted Leg (R), no edema noted Pedal (L), no edema noted Pedal (R), no edema noted Generalized Neurologic: responsive, motor weakness Skin: normal pigmentation, warm/dry BAYRON BENEDICT Nov 16, 2017 13:46
[2017-11-16] MEDS ORDERED: Isovue-300 100ml vial INJ SCH ×2 (14:30→14:45)
--- NOTE | 2017-11-16 14:42 | GI Progress Note ---
Assessment/Plan Problems: (1) Crohn's disease ICD Codes: K50.90 - Crohn's disease SNOMED: 21620110 Qualifiers: Qualified Codes: K50.919 - Crohn's disease, unspecified, with unspecified complications (2) Opioid dependence ICD Codes: F11.20 - Opioid dependence SNOMED: 61279530 (3) SBO (small bowel obstruction) ICD Codes: K56.609 - Unspecified intestinal obstruction, unspecified as to partial versus complete obstruction SNOMED: 182031851 (4) Chronic abdominal pain Status: unchanged Status Narrative Discussed with Dr. Gallegos. Assessment/Plan Assessment - suspected SBO or PSBO - Crohn's disease - possible free air on xrays - surgery following - Pleural based mass with pleural effusion - r/o malignancy Recommendations - follow exam - abx - check fluid cytology - pulmonary opinion - Diet per surgery - IVF - fu oncology recs Subjective Gastrointestinal/Abdominal: Reports: abdominal pain Objective Last 24 Hour Vital Signs Date Time Temp Pulse Resp B/P (MAP) Pulse Ox O2 Delivery O2 Flow Rate FiO2 11/16/17 13:03 98.8 11/16/17 12:00 98.8 97 20 137/88 100 Room Air 98.8 11/16/17 09:41 99.0 11/16/17 09:11 99.0 11/16/17 08:00 99.0 82 20 117/78 99 Room Air 99.0 11/16/17 04:16 97.9 86 18 118/73 98 97.9 11/16/17 00:30 97.7 88 20 114/77 100 97.7 11/15/17 20:00 97.8 94 18 126/81 100 97.8 11/15/17 18:13 97.7 11/15/17 15:52 97.7 101 19 134/94 96 Room Air 97.7 Intake and Output 11/15/17 11/16/17 19:00 07:00 Intake Total 1085.0 ml 795.0 ml Balance 1085.0 ml 795.0 ml Intake Oral 480 ml 480 ml IV Total 605.0 ml 315.0 ml # Voids 3 4 Laboratory Tests Test 11/16/17 06:35 11/16/17 14:20 White Blood Count 10.3 K/UL (4.8-10.8) Red Blood Count 4.35 M/UL (4.20-5.40) Hemoglobin 13.0 G/DL (12.0-16.0) Hematocrit 39.5 % (37.0-47.0) Mean Corpuscular Volume 91 FL (80-99) Mean Corpuscular Hemoglobin 29.8 PG (27.0-31.0) Mean Corpuscular Hemoglobin Concent 32.8 G/DL (32.0-36.0) Red Cell Distribution Width 15.0 % (11.6-14.8) H Platelet Count 228 K/UL (150-450) Mean Platelet Volume 7.7 FL (6.5-10.1) Neutrophils (%) (Auto) 72.0 % (45.0-75.0) Lymphocytes (%) (Auto) 17.7 % (20.0-45.0) L Monocytes (%) (Auto) 8.3 % (1.0-10.0) Eosinophils (%) (Auto) 1.5 % (0.0-3.0) Basophils (%) (Auto) 0.6 % (0.0-2.0) Sodium Level 135 MMOL/L (136-145) L Potassium Level 3.3 MMOL/L (3.5-5.1) L Chloride Level 102 MMOL/L (98-107) Carbon Dioxide Level 24 MMOL/L (21-32) Anion Gap 9 mmol/L (5-15) Blood Urea Nitrogen 9 mg/dL (7-18) Creatinine 0.9 MG/DL (0.55-1.30) Estimat Glomerular Filtration Rate > 60 mL/min (>60) Glucose Level 104 MG/DL (74-106) Calcium Level 9.2 MG/DL (8.5-10.1) Alpha Fetoprotein Pending CA 15-3 Antigen Pending CA 125 Antigen Pending Height (Feet): 5 Height (Inches): 6.00 Weight (Pounds): 129 General Appearance: WD/WN, no apparent distress, alert, thin Cardiovascular: normal rate Respiratory/Chest: normal breath sounds, no respiratory distress Abdominal Exam: normal bowel sounds, non tender, soft Extremities: normal range of motion, non-tender Tara Scott N.PDeng Nov 16, 2017 14:42
--- NOTE | 2017-11-16 14:49 | General Surgery Progress Note ---
General Surgery-Progress Note Subjective Additional Comments no acute events. Objective Last 24 Hour Vital Signs Date Time Temp Pulse Resp B/P (MAP) Pulse Ox O2 Delivery O2 Flow Rate FiO2 11/16/17 13:03 98.8 11/16/17 12:00 98.8 97 20 137/88 100 Room Air 98.8 11/16/17 09:41 99.0 11/16/17 09:11 99.0 11/16/17 08:00 99.0 82 20 117/78 99 Room Air 99.0 11/16/17 04:16 97.9 86 18 118/73 98 97.9 11/16/17 00:30 97.7 88 20 114/77 100 97.7 11/15/17 20:00 97.8 94 18 126/81 100 97.8 11/15/17 18:13 97.7 11/15/17 15:52 97.7 101 19 134/94 96 Room Air 97.7 I&O Intake and Output 11/15/17 11/16/17 19:00 07:00 Intake Total 1085.0 ml 795.0 ml Balance 1085.0 ml 795.0 ml Intake Oral 480 ml 480 ml IV Total 605.0 ml 315.0 ml # Voids 3 4 Drains: none Cardiovascular: RSR Respiratory: clear Abdomen: soft, distended, present bowel sounds Extremities: no edema, no tenderness, no cyanosis Laboratory Tests Test 11/16/17 06:35 11/16/17 14:20 White Blood Count 10.3 K/UL (4.8-10.8) Red Blood Count 4.35 M/UL (4.20-5.40) Hemoglobin 13.0 G/DL (12.0-16.0) Hematocrit 39.5 % (37.0-47.0) Mean Corpuscular Volume 91 FL (80-99) Mean Corpuscular Hemoglobin 29.8 PG (27.0-31.0) Mean Corpuscular Hemoglobin Concent 32.8 G/DL (32.0-36.0) Red Cell Distribution Width 15.0 % (11.6-14.8) H Platelet Count 228 K/UL (150-450) Mean Platelet Volume 7.7 FL (6.5-10.1) Neutrophils (%) (Auto) 72.0 % (45.0-75.0) Lymphocytes (%) (Auto) 17.7 % (20.0-45.0) L Monocytes (%) (Auto) 8.3 % (1.0-10.0) Eosinophils (%) (Auto) 1.5 % (0.0-3.0) Basophils (%) (Auto) 0.6 % (0.0-2.0) Sodium Level 135 MMOL/L (136-145) L Potassium Level 3.3 MMOL/L (3.5-5.1) L Chloride Level 102 MMOL/L (98-107) Carbon Dioxide Level 24 MMOL/L (21-32) Anion Gap 9 mmol/L (5-15) Blood Urea Nitrogen 9 mg/dL (7-18) Creatinine 0.9 MG/DL (0.55-1.30) Estimat Glomerular Filtration Rate > 60 mL/min (>60) Glucose Level 104 MG/DL (74-106) Calcium Level 9.2 MG/DL (8.5-10.1) Alpha Fetoprotein Pending CA 15-3 Antigen Pending CA 125 Antigen Pending Plan Problems: (1) Intractable abdominal pain Assessment & Plan: 66F with abdominal pain. very complex medical and surgical history. now with complex CT findings of left pleural effusion, left lower lung mass, large mediastinal and periaortic lymph nodes, new liver lesions, and air around the liver. unable to tell if bowel loop (possible blind end from prior surgery) noted in right upper quadrant above liver or if abscess or if free air. exam not consistent with perforation and no significant free fluid noted on CT or area of perforation. contrast into distal bowel without leak. initial leukocytosis resolved. low grade persistent fevers. recent cough. unfortunately no clear explanation as to patients current condition. lung mass , effusion, new liver masses, and nodes very concerning for malignant process. Exam stable compared to prior exams (patient seen during last admission and known to me). will need much more extensive work up. I discussed these findings with patient. I explained possible need for urgent surgery but given history and complex surgical history we will monitor clinically first. if declines will proceed with surgery which is VERY high risk in her. if stable will continue with work up. patient and partner express understand and agree with plan. s/p thoracentesis 11/12. awaiting cytology left EJ line not functional and removed. did not have other access so right EJ line placed by myself. if fails will need central venous access. CT A/P with oral contrast. -regular diet -monitor exam clinically -trend labs -iv abx -will follow with recs. thank you for this consultation. Wolf Quan Nov 16, 2017 14:49
[2017-11-16 15:48] VITALS: BP 148/90
--- NOTE | 2017-11-16 16:34 | Infectious Diseases Prog Note ---
Assessment/Plan Assessment/Plan ASSESSMENT: The patient is a 66-year-old female with, Low-grade fever. probable due to SBO ,resolved Status post leukocytosis. Probable small bowel obstruction Recent history of polymicrobial gram-negative bacteremia including Stenotrophomonas maltophilia and Enterobacter. History of Aggie esophagitis. History of C. difficile in the past. Air anterior to the liver , ? free intraperitoneal air ( Surg doubt perforation ) Lung and liver masses Ro Malignancy CT: Pleural-based mass at the left lung base / Moderate-sized left pleural effusion, left-sided pleural nodularity and retroperitoneal and paraspinal nodules/masses. Left inferior hilar mass lesion partially visualized. New low- attenuation liver lesion ( concerning for malignancy/metastatic disease ) Pl effusion SP ultrasound-guided thoracentesis, 960 cc ( m/l 2/2 mets, no evid of Empyema ) -exudate fluid: WBC 613 (n 6), pH 8, lguc 98, prot 4.6 (serum 8.4); cx stain: GRAM STAIN Final GRAM STAIN RESULT FEW WHITE BLOOD CELLS NO ORGANISMS SEEN cx negative Crohn's disease. History of bowel obstruction x2 with lysis of adhesions in 2004. COPD. History of chronic pain syndrome, on morphine pump. CVA in 2004. Seizure disorder. PLAN: cont the patient on empiric IV Zosyn d# 5/5 in the setting of SBO Monitor cultures. ( pl effusion ) Monitor CBC and BMP. follow GI recommendations hem, surg f/u Subjective Allergies: Coded Allergies: No Known Allergies (Verified , 05/21/06) Subjective afebrile no leukocytosis pleural fluid cx neg Objective Vital Signs Last 24 Hour Vital Signs Date Time Temp Pulse Resp B/P (MAP) Pulse Ox O2 Delivery O2 Flow Rate FiO2 11/16/17 15:48 98.4 107 20 148/90 97 Room Air 98.4 11/16/17 13:33 98.8 11/16/17 13:03 98.8 11/16/17 12:00 98.8 97 20 137/88 100 Room Air 98.8 11/16/17 09:11 99.0 11/16/17 08:00 99.0 82 20 117/78 99 Room Air 99.0 11/16/17 04:16 97.9 86 18 118/73 98 97.9 11/16/17 00:30 97.7 88 20 114/77 100 97.7 11/15/17 20:00 97.8 94 18 126/81 100 97.8 11/15/17 18:13 97.7 Height (Feet): 5 Height (Inches): 6.00 Weight (Pounds): 129 Objective HEENT: anicteric Respiratory/Chest: normal breath sounds Cardiovascular: regular rhythm Abdomen: tender Laboratory Tests Test 11/16/17 06:35 11/16/17 14:20 White Blood Count 10.3 K/UL (4.8-10.8) Red Blood Count 4.35 M/UL (4.20-5.40) Hemoglobin 13.0 G/DL (12.0-16.0) Hematocrit 39.5 % (37.0-47.0) Mean Corpuscular Volume 91 FL (80-99) Mean Corpuscular Hemoglobin 29.8 PG (27.0-31.0) Mean Corpuscular Hemoglobin Concent 32.8 G/DL (32.0-36.0) Red Cell Distribution Width 15.0 % (11.6-14.8) H Platelet Count 228 K/UL (150-450) Mean Platelet Volume 7.7 FL (6.5-10.1) Neutrophils (%) (Auto) 72.0 % (45.0-75.0) Lymphocytes (%) (Auto) 17.7 % (20.0-45.0) L Monocytes (%) (Auto) 8.3 % (1.0-10.0) Eosinophils (%) (Auto) 1.5 % (0.0-3.0) Basophils (%) (Auto) 0.6 % (0.0-2.0) Sodium Level 135 MMOL/L (136-145) L Potassium Level 3.3 MMOL/L (3.5-5.1) L Chloride Level 102 MMOL/L (98-107) Carbon Dioxide Level 24 MMOL/L (21-32) Anion Gap 9 mmol/L (5-15) Blood Urea Nitrogen 9 mg/dL (7-18) Creatinine 0.9 MG/DL (0.55-1.30) Estimat Glomerular Filtration Rate > 60 mL/min (>60) Glucose Level 104 MG/DL (74-106) Calcium Level 9.2 MG/DL (8.5-10.1) Alpha Fetoprotein Pending CA 15-3 Antigen Pending CA 125 Antigen Pending Current Medications Medications (Trade) Dose Ordered Sig/Vaibhav Route PRN Reason Start Time Stop Time Status Last Admin Dose Admin Acetaminophen (Tylenol) 650 mg Q4H PRN ORAL fever 11/11/17 15:30 12/11/17 15:29 Acetaminophen/ Hydrocodone Bitart ([place] 10/325) 1 tab Q4H PRN ORAL Pain Scale (3-5) 11/13/17 12:30 11/20/17 08:29 11/15/17 09:14 Al Hydroxide/Mg Hydroxide (Mylanta II) 30 ml Q6H PRN ORAL dyspepsia 11/11/17 15:30 12/11/17 15:29 Atorvastatin Calcium (Lipitor) 40 mg BEDTIME ORAL 11/11/17 21:00 12/11/17 20:59 11/15/17 20:34 Bupropion HCl (Wellbutrin) 100 mg DAILY ORAL 11/12/17 09:00 12/12/17 08:59 11/16/17 08:54 Dextrose (Dextrose 50%) 50 ml STAT PRN IV Hypoglycemia BS<60mg/dL 11/11/17 15:30 12/11/17 15:29 Dextrose/Sodium Chloride 1,000 ml @ 75 mls/hr [id number] IV 11/11/17 17:00 12/11/17 16:59 11/16/17 00:39 Diphenhydramine HCl (Benadryl) 25 mg Q6H PRN ORAL Itching/Pruritis 11/11/17 15:30 12/11/17 15:29 Duloxetine HCl (Cymbalta) 90 mg DAILY ORAL 11/16/17 09:00 12/12/17 08:59 11/16/17 08:54 Gabapentin (Neurontin) 300 mg THREE TIMES A DAY ORAL 11/12/17 10:00 12/12/17 09:59 11/16/17 13:03 Heparin Sodium (Porcine) (Heparin 5000 units/ml) 5,000 units EVERY 12 HOURS SUBQ 11/11/17 21:00 12/11/17 20:59 11/16/17 08:57 Hydromorphone HCl (Dilaudid) 0.5 mg Q4H PRN IVP Mod-Severe Pain (4-10) if unab 11/13/17 21:30 11/20/17 21:29 11/16/17 13:03 Levetiracetam (Keppra) 1,000 mg Q8H ORAL 11/16/17 08:00 12/16/17 07:59 11/16/17 08:55 Levothyroxine Sodium (Synthroid) 75 mcg ACBREAKFAST ORAL 11/12/17 06:30 12/12/17 06:29 11/16/17 05:36 Lorazepam (Ativan 2mg/ml 1ml) 2 mg Q6H PRN IV agitation 11/13/17 15:30 11/20/17 15:29 11/15/17 13:08 Methylnaltrexone [place] (Relistor) 12 mg DAILY SUBQ 11/12/17 10:15 12/12/17 10:14 11/16/17 08:57 Metoclopramide HCl (Reglan) 10 mg Q6H PRN IVP Unrelieved Severe Nausea 11/11/17 15:30 12/11/17 15:29 Nitroglycerin (Ntg) 0.4 mg Q5M X 3 DOSES PRN SL Prn Chest Pain 11/11/17 15:30 12/11/17 15:29 Ondansetron HCl (Zofran) 4 mg Q6H PRN IVP Nausea & Vomiting 11/11/17 15:30 12/11/17 15:29 11/12/17 12:37 Pantoprazole (Protonix) 40 mg DAILY ORAL 11/15/17 09:00 12/15/17 08:59 11/16/17 08:54 Piperacillin Sod/ Tazobactam Sod 3.375 gm/Sodium Chloride 110 ml @ 27.5 mls/hr Q8H IVPB 11/12/17 16:00 11/19/17 15:59 11/16/17 15:58 Polyethylene Glycol (Miralax) 17 gm HSPRN PRN ORAL Constipation 11/11/17 15:30 12/11/17 15:29 Promethazine HCl 25 mg/Sodium Chloride 56 ml @ 110 mls/hr Q6H PRN IV Refractory N/V 11/11/17 15:30 12/11/17 15:29 Simethicone (Mylicon) 80 mg QIDPRN PRN ORAL gas 11/12/17 10:00 12/12/17 09:59 Theophylline ([place]) 100 mg Q12HR ORAL 11/11/17 21:00 12/11/17 20:59 11/16/17 08:54 Topiramate (Topamax) 25 mg EVERY 12 HOURS ORAL 11/11/17 21:00 12/11/17 20:59 11/16/17 08:55 Trazodone HCl (Desyrel) 200 mg BEDTIME ORAL 11/11/17 21:00 12/11/17 20:59 11/15/17 20:34 Zolpidem Tartrate (Ambien) 5 mg QHS ORAL 11/13/17 21:00 11/20/17 20:59 11/15/17 20:34 Kathleen Lafleur M.D. Nov 16, 2017 16:34
[2017-11-16] MEDS: LORazepam Inj 2mg/ml 1ml IV PRN (18:57)
--- NOTE | 2017-11-16 19:45 | Consultation ---
DATE OF CONSULTATION: 11/16/2017 HEMATOLOGY/ONCOLOGY CONSULT CONSULTING PHYSICIAN: Eliud Bains M.D. ATTENDING PHYSICIAN: Barber Dial D.O. REFERRING PHYSICIAN: Barber Dial D.O. REASON FOR CONSULTATION: Hilar adenopathy, rule out lung cancer versus metastatic disease, possible liver metastasis, pleural base mass in the left lung. CURRENT COMPLAINT AND HISTORY OF PRESENT ILLNESS: Dear Dr. Barber Dial, Today, I had an opportunity to see one of your patients, Ms. Dewayne Donohue who is 66 years old delightful female with past medical history remarkable for COPD, asthma, inflammatory bowel disease, elevated CEA, pneumonia, Crohn's disease, therapeutic opioid-induced constipation, perianal abscess, emphysema, depression, hypertension, CHF, psychosis, seizure disorder, vertigo, chronic pancreatitis, lumbar spondylosis, chronic pain syndrome, radiculopathy, abdominal pain, history of GI bleed, history of colonic polyps, encephalopathy, cellulitis of female genitalia, bacteremia, history of small bowel obstruction, and weight loss. The patient ended up in the emergency room at [facility]. During evaluation it was found the patient developed pleural effusion, left pleural base mass, left-sided pleural nodularity, retroperitoneal and paraspinal masses. There is also new low-attenuation liver lesion. Taken all altogether, these findings highly concerning for malignancy/metastatic disease. My service was called to handle the issue of possible metastatic disease. PAST MEDICAL HISTORY: 1. Crohn disease. 2. History of small bowel obstruction x2 with lysis of adhesion 2004. 3. COPD. 4. History of CVA. 5. History of chronic abdominal pain. The patient on morphine pump. 6. History of seizure. 7. History of Aggie esophagitis. 8. History of gram-negative bacteremia. 9. Opioid dependence. 10. Weight loss. 11. Intractable abdominal pain. 12. Purulent bronchitis. 13. Depression. 14. Diarrhea. 15. Dyspnea. 16. Respiratory distress and shortness of breath. 17. Urinary tract infection. 18. Chronic pain syndrome. 19. Interstitial lung disease. 20. Inflammatory bowel disease. 21. Low GI bleed. 22. Herniated nucleus pulposus. 23. History of small bowel obstruction. 24. Chronic back pain. 25. History of colonic polyps. 26. Cellulitis of female genitalia. 27. Chronic abdominal pain. 28. Seizure disorder. 29. Nausea and vomiting. PAST SURGICAL HISTORY: Status post exploratory laparotomy. SOCIAL HISTORY: History of smoking. No history of alcohol abuse. No history of illicit drug use. ALLERGIES: NKDA. MEDICATIONS: 1. Cymbalta. 2. Keppra. 3. Protonix. 4. Dilaudid. 5. Ambien. 6. Lorazepam. 7. [place]. 8. Relistor. 9. Neurontin. 10. Synthroid. 11. Lipitor. 12. Topamax. 13. Trazodone. 14. Heparin subcutaneous. 15. Tylenol. 16. MiraLAX. 17. Zofran. 18. Nitroglycerin. 19. Benadryl. 20. Mylanta. 21. Reglan. REVIEW OF SYSTEMS: GENERAL DESCRIPTION: The patient not in any significant distress, but looks chronically ill. RESPIRATORY: Mild shortness of breath on exertion. GASTROINTESTINAL: Abdominal pain, constipation. NEUROMUSCULAR: The patient claims muscle ache and back pain. PHYSICAL EXAMINATION: VITAL SIGNS: T-max 97, respiratory rate 20, heart rate 80, and blood pressure 125/75. HEENT: Head, normocephalic and atraumatic. NECK: Neck is supple. No thyroid enlargement. No lymphadenopathy. LUNGS: Decreased breath sounds bilaterally with few rhonchi in the bases. HEART: S1 and S2 regular. ABDOMEN: Benign. No organomegaly present. Bowel sounds present. EXTREMITIES: No cyanosis, clubbing, or edema. LABORATORY AND DIAGNOSTIC DATA: WBC 10.6, hemoglobin 13.0, hematocrit 39.5, platelets 228. INR 1.1. Creatinine 0.9. Imaging study, CT scan abdomen with pelvic from 11/12/2017 was compared to 10/07/2017 (one month ago). Findings revealed dense hilar adenopathy, left pleural based mass, left pleural effusion, retroperitoneal lymphadenopathy, multiple low attenuation lesions in the liver. IMPRESSION: 1. Left lower lobe lung mass. 2. Left inferior hilar mass. 3. Left pleural base lung mass. 4. Left pleural effusion. 5. Retroperitoneal lymphadenopathy. 6. Multiple low-attenuation liver lesions. 7. Crohn disease. 8. Opioid dependence. 9. Chronic obstructive pulmonary disease. 10. History of smoking. 11. Emphysema. 12. Perianal abscess. 13. Intractable abdominal pain. 14. Status post morphine pump placement. 15. Depression. 16. Psychosis. 17. Seizure disorder. 18. Radiculopathy of lumbar region. 19. Abdominal pain. 20. Nausea and vomiting. 21. Status post exploratory laparotomy. 22. Pneumoperitoneum. 23. Inflammatory bowel disease. 24. History of elevated CEA. 25. History of lower gastrointestinal bleed. 26. Chronic pain syndrome. 27. History of small bowel obstruction. 28. Status post laparotomy x2. 29. Failure to thrive. RECOMMENDATIONS: 1. Watch count. 2. Watch coagulopathy. 3. Paracentesis with cytology. 4. Pulmonary evaluation/followup. 5. Mediastinoscopy versus CT-guided lung biopsy. 6. The patient needs tissue diagnosis. 7. ID followup. 8. Pain control. 9. Psychiatry evaluation. 10. Skin care. 11. Nutrition. 12. Continue current treatment. 13. Discussed with staff. 14. Close followup Dr. Barber Dial, I greatly appreciate the opportunity to participate in the care of one of your patients. It is a privilege to me to be on this interesting and challenging case. Eliud Bains MD DR: Pratima JOB#: [id number] CC:
[2017-11-16 20:00] VITALS: BP 152/98
[2017-11-16] MEDS: Atorvastatin 20mg tab ORAL SCH (21:35)
[2017-11-16] MEDS: Zolpidem 5mg tab ORAL SCH (21:35)
[2017-11-16] MEDS: TraZODone 100mg tab ORAL SCH (21:35)
--- NOTE | 2017-11-16 23:58 | General Progress Note ---
Subjective Allergies: Coded Allergies: No Known Allergies (Verified , 05/21/06) Objective Last 24 Hour Vital Signs Date Time Temp Pulse Resp B/P (MAP) Pulse Ox O2 Delivery O2 Flow Rate FiO2 11/16/17 20:00 98.3 109 19 152/98 100 98.3 11/16/17 17:34 98.4 11/16/17 17:04 98.4 11/16/17 15:48 98.4 107 20 148/90 97 Room Air 98.4 11/16/17 13:03 98.8 11/16/17 12:00 98.8 97 20 137/88 100 Room Air 98.8 11/16/17 09:11 99.0 11/16/17 08:00 99.0 82 20 117/78 99 Room Air 99.0 11/16/17 04:16 97.9 86 18 118/73 98 97.9 11/16/17 00:30 97.7 88 20 114/77 100 97.7 Intake and Output 11/15/17 11/16/17 19:00 07:00 Intake Total 1085.0 ml 795.0 ml Balance 1085.0 ml 795.0 ml Intake Oral 480 ml 480 ml IV Total 605.0 ml 315.0 ml # Voids 3 4 Laboratory Tests 11/16/17 06:35: White Blood Count 10.3, Red Blood Count 4.35, Hemoglobin 13.0, Hematocrit 39.5, Mean Corpuscular Volume 91, Mean Corpuscular Hemoglobin 29.8, Mean Corpuscular Hemoglobin Concent 32.8, Red Cell Distribution Width 15.0H, Platelet Count 228, Mean Platelet Volume 7.7, Neutrophils (%) (Auto) 72.0, Lymphocytes (%) (Auto) 17.7L, Monocytes (%) (Auto) 8.3, Eosinophils (%) (Auto) 1.5, Basophils (%) (Auto ) 0.6, Sodium Level 135L, Potassium Level 3.3L, Chloride Level 102, Carbon Dioxide Level 24, Anion Gap 9, Blood Urea Nitrogen 9, Creatinine 0.9, Estimat Glomerular Filtration Rate > 60, Glucose Level 104, Calcium Level 9.2 11/16/17 14:20: Alpha Fetoprotein [Pending], CA 15-3 Antigen [Pending], CA 125 Antigen [Pending] Height (Feet): 5 Height (Inches): 6.00 Weight (Pounds): 129 General Appearance: no apparent distress, confused Respiratory/Chest: decreased breath sounds Edema: trace edema YUMIKO CASTELAN Nov 16, 2017 23:58
[2017-11-17] VITALS: BP 155/94
[2017-11-17 04:00] VITALS: BP 153/94
[2017-11-17] MEDS: D5 1/2NS 1,000 ML IV SCH ×2 (05:29→19:40)
[2017-11-17 08:00] VITALS: BP 152/103
[2017-11-17 08:15] LABS: BASOPHILS % (AUTO) 0.6 % (0.0-2.0); EOSINOPHILS % (AUTO) 0.3 % (0.0-3.0); HEMATOCRIT 41.7 % (37.0-47.0); HEMOGLOBIN 13.6 G/DL (12.0-16.0); LYMPHOCYTES % (AUTO) 14.5 % (20.0-45.0); MEAN CORPUSCULAR VOLUME 90 FL (80-99); MONOCYTES % (AUTO) 8.5 % (1.0-10.0); NEUTROPHILS % (AUTO) 76.1 % (45.0-75.0); PLATELET COUNT 227 K/UL (150-450); RED BLOOD COUNT 4.62 M/UL (4.20-5.40); RED CELL DISTRIBUTION WIDTH 15.1 % (11.6-14.8); WHITE BLOOD COUNT 14.9 K/UL (4.8-10.8)
[2017-11-17 08:37] LABS: ANION GAP 10 mmol/L (5-15); BLOOD UREA NITROGEN 11 mg/dL (7-18); CALCIUM 9.5 MG/DL (8.5-10.1); CARBON DIOXIDE 23 MMOL/L (21-32); CHLORIDE 101 MMOL/L (98-107); CREATININE 0.8 MG/DL (0.55-1.30); POTASSIUM 3.1 MMOL/L (3.5-5.1); SODIUM 134 MMOL/L (136-145)
[2017-11-17] MEDS: DULoxetine 30mg cap ORAL SCH (08:46)
[2017-11-17] MEDS: Piperacillin/Tazobactam 3.375 GM in NS 110 ML IVPB SCH (08:46)
[2017-11-17] MEDS: Theophylline ER 100mg ORAL SCH ×2 (08:46→21:32)
[2017-11-17] MEDS: Topiramate 25mg tab ORAL SCH ×2 (08:46→21:32)
[2017-11-17] MEDS: Relistor 12mg/0.6ml Vial SUBQ SCH (08:47)
[2017-11-17] MEDS: Heparin 5000 units/ml inj SUBQ SCH ×2 (09:00→21:00)
[2017-11-17] MEDS ORDERED: Heparin 2000 units/Ns 1000ml INJ PRN (09:15)
[2017-11-17] MEDS ORDERED: Lidocaine 1% Plain 30 ml INJ PRN (09:15)
[2017-11-17] MEDS ORDERED: Isovue-300 100ml vial INJ PRN (10:00)
[2017-11-17 12:00] VITALS: BP 127/82
--- NOTE | 2017-11-17 12:57 | General Progress Note ---
Assessment/Plan Problem List: (1) Crohn's disease ICD Codes: K50.90 - Crohn's disease SNOMED: 35316211 Qualifiers: Qualified Codes: K50.919 - Crohn's disease, unspecified, with unspecified complications (2) Opioid dependence ICD Codes: F11.20 - Opioid dependence SNOMED: 08964390 (3) Intractable abdominal pain ICD Codes: R10.9 - Unspecified abdominal pain SNOMED: 45947894, 336570265 (4) COPD (chronic obstructive pulmonary disease) ICD Codes: J44.9 - Chronic obstructive pulmonary disease SNOMED: 30693047 (5) Shortness of breath (6) SOB (shortness of breath) ICD Codes: R06.02 - Shortness of breath SNOMED: 715902186 (7) UTI (urinary tract infection) ICD Codes: N39.0 - Urinary tract infection, site not specified SNOMED: 57776557 (8) Lung mass ICD Codes: R91.8 - Other nonspecific abnormal finding of lung field SNOMED: 422541444 Status: unchanged Assessment/Plan ot pt diet pain control sx eval cbc bmp am heme f/u ltach eval Subjective Constitutional: Reports: weakness Allergies: Coded Allergies: No Known Allergies (Verified , 05/21/06) All Systems: reviewed and negative except above Subjective sleepy calm in bed Objective Last 24 Hour Vital Signs Date Time Temp Pulse Resp B/P (MAP) Pulse Ox O2 Delivery O2 Flow Rate FiO2 11/17/17 08:00 98.2 100 12 152/103 100 98.2 11/17/17 04:00 97.8 97 18 153/94 100 97.8 11/17/17 00:00 98.2 98 19 155/94 100 98.2 11/16/17 20:00 98.3 109 19 152/98 100 98.3 11/16/17 17:34 98.4 11/16/17 17:04 98.4 11/16/17 15:48 98.4 107 20 148/90 97 Room Air 98.4 11/16/17 13:03 98.8 Intake and Output 11/16/17 11/17/17 19:00 07:00 Intake Total 1082.5 ml 55.0 ml Balance 1082.5 ml 55.0 ml Intake Oral 480 ml IV Total 602.5 ml 55.0 ml # Voids 3 Laboratory Tests 11/16/17 14:20: Alpha Fetoprotein [Pending], CA 15-3 Antigen [Pending], CA 125 Antigen [Pending] 11/17/17 07:00: White Blood Count 14.9H, Red Blood Count 4.62, Hemoglobin 13.6, Hematocrit 41.7 , Mean Corpuscular Volume 90, Mean Corpuscular Hemoglobin 29.4, Mean Corpuscular Hemoglobin Concent 32.5, Red Cell Distribution Width 15.1H, Platelet Count 227, Mean Platelet Volume 7.3, Neutrophils (%) (Auto) 76.1H, Lymphocytes (%) (Auto) 14.5L, Monocytes (%) (Auto) 8.5, Eosinophils (%) (Auto) 0.3, Basophils (%) (Auto) 0.6, Sodium Level 134L, Potassium Level 3.1L, Chloride Level 101, Carbon Dioxide Level 23, Anion Gap 10, Blood Urea Nitrogen 11, Creatinine 0.8, Estimat Glomerular Filtration Rate > 60, Glucose Level 109H , Calcium Level 9.5 Height (Feet): 5 Height (Inches): 6.00 Weight (Pounds): 129 General Appearance: lethargic EENT: normal ENT inspection Neck: normal alignment Cardiovascular: normal peripheral pulses, normal rate, regular rhythm Respiratory/Chest: chest wall non-tender, decreased breath sounds Abdomen: non tender, hypoactive bowel sounds Extremities: normal inspection Edema: no edema noted Arm (L), no edema noted Arm (R), no edema noted Leg (L), no edema noted Leg (R), no edema noted Pedal (L), no edema noted Pedal (R), no edema noted Generalized Neurologic: motor weakness Skin: normal pigmentation, warm/dry BAYRON BENEDICT Nov 17, 2017 12:57
[2017-11-17] MEDS ORDERED: Potassium Chloride 40 MEQ in Sodium Chloride 500ML 550 ML IVPB ONE (13:00)
--- NOTE | 2017-11-17 14:11 | GI Progress Note ---
Assessment/Plan Problems: (1) Crohn's disease ICD Codes: K50.90 - Crohn's disease SNOMED: 48728284 Qualifiers: Qualified Codes: K50.919 - Crohn's disease, unspecified, with unspecified complications (2) Opioid dependence ICD Codes: F11.20 - Opioid dependence SNOMED: 95031654 (3) SBO (small bowel obstruction) ICD Codes: K56.609 - Unspecified intestinal obstruction, unspecified as to partial versus complete obstruction SNOMED: 343089407 (4) Chronic abdominal pain Status: unchanged Status Narrative Discussed with Dr. Gallegos. Assessment/Plan Assessment - suspected SBO or PSBO - Crohn's disease - possible free air on xrays - surgery following - Pleural based mass with pleural effusion - r/o malignancy Recommendations - follow exam - abx - check fluid cytology - pulmonary opinion - Diet per surgery - IVF - fu oncology recs Subjective Gastrointestinal/Abdominal: Reports: abdominal pain Objective Last 24 Hour Vital Signs Date Time Temp Pulse Resp B/P (MAP) Pulse Ox O2 Delivery O2 Flow Rate FiO2 11/17/17 12:00 97.3 103 12 127/82 100 Room Air 97.3 11/17/17 08:00 98.2 100 12 152/103 100 98.2 11/17/17 04:00 97.8 97 18 153/94 100 97.8 11/17/17 00:00 98.2 98 19 155/94 100 98.2 11/16/17 20:00 98.3 109 19 152/98 100 98.3 11/16/17 17:34 98.4 11/16/17 17:04 98.4 11/16/17 15:48 98.4 107 20 148/90 97 Room Air 98.4 Intake and Output 11/16/17 11/17/17 19:00 07:00 Intake Total 1082.5 ml 55.0 ml Balance 1082.5 ml 55.0 ml Intake Oral 480 ml IV Total 602.5 ml 55.0 ml # Voids 3 Laboratory Tests Test 11/16/17 14:20 11/17/17 07:00 Alpha Fetoprotein Pending CA 15-3 Antigen Pending CA 125 Antigen Pending White Blood Count 14.9 K/UL (4.8-10.8) H Red Blood Count 4.62 M/UL (4.20-5.40) Hemoglobin 13.6 G/DL (12.0-16.0) Hematocrit 41.7 % (37.0-47.0) Mean Corpuscular Volume 90 FL (80-99) Mean Corpuscular Hemoglobin 29.4 PG (27.0-31.0) Mean Corpuscular Hemoglobin Concent 32.5 G/DL (32.0-36.0) Red Cell Distribution Width 15.1 % (11.6-14.8) H Platelet Count 227 K/UL (150-450) Mean Platelet Volume 7.3 FL (6.5-10.1) Neutrophils (%) (Auto) 76.1 % (45.0-75.0) H Lymphocytes (%) (Auto) 14.5 % (20.0-45.0) L Monocytes (%) (Auto) 8.5 % (1.0-10.0) Eosinophils (%) (Auto) 0.3 % (0.0-3.0) Basophils (%) (Auto) 0.6 % (0.0-2.0) Sodium Level 134 MMOL/L (136-145) L Potassium Level 3.1 MMOL/L (3.5-5.1) L Chloride Level 101 MMOL/L (98-107) Carbon Dioxide Level 23 MMOL/L (21-32) Anion Gap 10 mmol/L (5-15) Blood Urea Nitrogen 11 mg/dL (7-18) Creatinine 0.8 MG/DL (0.55-1.30) Estimat Glomerular Filtration Rate > 60 mL/min (>60) Glucose Level 109 MG/DL (74-106) H Calcium Level 9.5 MG/DL (8.5-10.1) Height (Feet): 5 Height (Inches): 6.00 Weight (Pounds): 129 General Appearance: WD/WN, no apparent distress, alert Cardiovascular: normal rate Respiratory/Chest: normal breath sounds, no respiratory distress Abdominal Exam: normal bowel sounds, non tender, soft Extremities: normal range of motion, non-tender Tara Scott.Coco Nov 17, 2017 14:11
--- NOTE | 2017-11-17 14:20 | Consultation ---
History of Present Illness General Date patient seen: Nov 17, 2017 Chief Complaint: Abdominal Pain Referring physician: BAYRON BENEDICT Reason for Consultation: lung mass Present Illness HPI 66 year old female with hx of Crohn disease presented to ER with cc of abdominal pain, was found to have pleural effusion and hilar lymphadenopathy. She underwent thoracentesis. I was asked to evaluate the LLL mass. Allergies: Coded Allergies: No Known Allergies (Verified , 05/21/06) Medication History Scheduled Al Hydroxide/mg Hydroxide (Mag-Al Plus Suspension), 30 ML PO Q6HR, (Reported) Aspirin* (Aspir 81*), 81 MG ORAL DAILY, (Reported) Atorvastatin Calcium* (Lipitor*), 40 MG ORAL BEDTIME, (Reported) Bupropion Hcl* (Bupropion Hcl*), 100 MG ORAL DAILY, (Reported) Duloxetine Hcl* (Cymbalta*), 60 MG ORAL DAILY, (Reported) Fluconazole (Fluconazole), 200 MG ORAL DAILY, (Reported) Levetiracetam* (Levetiracetam*), 1,000 MG ORAL TID, (Reported) Levothyroxine Sodium* (Levothyroxine Sodium*), 75 MCG ORAL ACBREAKFAST, ( Reported) Linaclotide (Linzess), 145 MCG PO DAILY, (Reported) Lorazepam* (Ativan*), 1 MG ORAL THREE TIMES A DAY, (Reported) Mesalamine (Asacol Hd), 1,600 MG ORAL THREE TIMES A DAY, (Reported) Mirtazapine (Remeron), 30 MG ORAL BEDTIME, (Reported) Montelukast Sodium* (Montelukast Sodium*), 10 MG ORAL DAILY, (Reported) Multivitamins* (Multivitamins*), 1 TAB ORAL DAILY, (Reported) Pantoprazole* (Protonix*), 40 MG ORAL DAILY, (Reported) Quetiapine Fumarate (Seroquel), 200 MG ORAL QHS, (Reported) Theophylline (Theodur*), 100 MG ORAL TWICE A DAY, (Reported) Topiramate* (Topamax*), 25 MG ORAL TWICE A DAY, (Reported) Trazodone Hcl* (Desyrel*), 200 MG ORAL BEDTIME, (Reported) Scheduled PRN Acetaminophen* (Acetaminophen 325MG Tablet*), 325 MG ORAL Q4H PRN for Fever/ Headache/Mild Pain, (Reported) Diphenhydramine HCl (Benadryl), 25 MG PO Q6HR PRN for Itching, (Reported) Discontinued Medications Ibuprofen* (Motrin*), 800 MG ORAL THREE TIMES A DAY, (Reported) Discontinued Reason: Therapy completed Levofloxacin-D5w 500 Mg/100 Ml* (Levofloxacin-D5w 500 Mg/100 Ml*), 500 MG IVPB Q24H, (Reported) Discontinued Reason: Therapy completed Levothyroxine Sodium (Synthroid), 75 MCG ORAL DAILY, (Reported) Discontinued Reason: Medication dose changed Mesalamine (Pentasa), 1,000 MG ORAL TID, (Reported) Discontinued Reason: Pt stopped taking med Metronidazole* (Flagyl*), 200 MG ORAL DAILY, (Reported) Discontinued Reason: Therapy completed Nitroglycerin (Nitroglycerin), 0.4 MG SL [id number] PRN for Prn Chest Pain, ( Reported) Discontinued Reason: Therapy completed Ondansetron* (Zofran*), 4 MG ORAL Q6H PRN for Nausea & Vomiting, (Reported) Discontinued Reason: Therapy completed Risperidone* (Risperdal*), 0.5 MG ORAL BEDTIME, (Reported) Discontinued Reason: Pt stopped taking med Temazepam* (Restoril*), 15 MG ORAL BEDTIME PRN for Insomnia, (Reported) Discontinued Reason: Medication dose changed Zolpidem Tartrate* (Ambien*), 5 MG ORAL BEDTIME PRN for Insomnia, (Reported) Discontinued Reason: Pt stopped taking med Patient History Healthcare decision maker Patient Resuscitation status Full Code Advanced Directive on File No Past Medical/Surgical History Past Medical/Surgical History: (1) History of colonic polyps (2) Chronic pain disorder (3) IBD (inflammatory bowel disease) (4) Interstitial lung disease (5) Chronic pain syndrome (6) Crohns disease (7) COPD (chronic obstructive pulmonary disease) Review of Systems All Other Systems: negative except mentioned in HPI Physical Exam General Appearance: cachetic Lines, tubes and drains: peripheral HEENT: normocephalic, atraumatic, PERRL Neck: normal alignment Respiratory/Chest: chest wall non-tender Cardiovascular/Chest: normal peripheral pulses, normal rate, no JVD Genitourinary/Rectal: normal genital exam Extremities: normal range of motion Last 24 Hour Vital Signs Date Time Temp Pulse Resp B/P (MAP) Pulse Ox O2 Delivery O2 Flow Rate FiO2 11/17/17 12:00 97.3 103 12 127/82 100 Room Air 97.3 11/17/17 08:00 98.2 100 12 152/103 100 98.2 11/17/17 04:00 97.8 97 18 153/94 100 97.8 11/17/17 00:00 98.2 98 19 155/94 100 98.2 11/16/17 20:00 98.3 109 19 152/98 100 98.3 11/16/17 17:34 98.4 11/16/17 17:04 98.4 11/16/17 15:48 98.4 107 20 148/90 97 Room Air 98.4 Intake and Output 11/16/17 11/17/17 19:00 07:00 Intake Total 1082.5 ml 55.0 ml Balance 1082.5 ml 55.0 ml Intake Oral 480 ml IV Total 602.5 ml 55.0 ml # Voids 3 Laboratory Tests Test 11/16/17 14:20 11/17/17 07:00 Alpha Fetoprotein Pending CA 15-3 Antigen Pending CA 125 Antigen Pending White Blood Count 14.9 K/UL (4.8-10.8) H Red Blood Count 4.62 M/UL (4.20-5.40) Hemoglobin 13.6 G/DL (12.0-16.0) Hematocrit 41.7 % (37.0-47.0) Mean Corpuscular Volume 90 FL (80-99) Mean Corpuscular Hemoglobin 29.4 PG (27.0-31.0) Mean Corpuscular Hemoglobin Concent 32.5 G/DL (32.0-36.0) Red Cell Distribution Width 15.1 % (11.6-14.8) H Platelet Count 227 K/UL (150-450) Mean Platelet Volume 7.3 FL (6.5-10.1) Neutrophils (%) (Auto) 76.1 % (45.0-75.0) H Lymphocytes (%) (Auto) 14.5 % (20.0-45.0) L Monocytes (%) (Auto) 8.5 % (1.0-10.0) Eosinophils (%) (Auto) 0.3 % (0.0-3.0) Basophils (%) (Auto) 0.6 % (0.0-2.0) Sodium Level 134 MMOL/L (136-145) L Potassium Level 3.1 MMOL/L (3.5-5.1) L Chloride Level 101 MMOL/L (98-107) Carbon Dioxide Level 23 MMOL/L (21-32) Anion Gap 10 mmol/L (5-15) Blood Urea Nitrogen 11 mg/dL (7-18) Creatinine 0.8 MG/DL (0.55-1.30) Estimat Glomerular Filtration Rate > 60 mL/min (>60) Glucose Level 109 MG/DL (74-106) H Calcium Level 9.5 MG/DL (8.5-10.1) Height (Feet): 5 Height (Inches): 6.00 Weight (Pounds): 129 Medications Current Medications Medications (Trade) Dose Ordered Sig/Vaibhav Route PRN Reason Start Time Stop Time Status Last Admin Dose Admin Acetaminophen (Tylenol) 650 mg Q4H PRN ORAL fever 11/11/17 15:30 12/11/17 15:29 Acetaminophen/ Hydrocodone Bitart ([place] 10/325) 1 tab Q4H PRN ORAL Pain Scale (3-5) 11/13/17 12:30 11/20/17 08:29 11/15/17 09:14 Al Hydroxide/Mg Hydroxide (Mylanta II) 30 ml Q6H PRN ORAL dyspepsia 11/11/17 15:30 12/11/17 15:29 Atorvastatin Calcium (Lipitor) 40 mg BEDTIME ORAL 11/11/17 21:00 12/11/17 20:59 11/16/17 21:35 Bupropion HCl (Wellbutrin) 100 mg DAILY ORAL 11/12/17 09:00 12/12/17 08:59 11/17/17 08:46 Chlorhexidine Gluconate (Leah-Hex 2%) 1 applic DAILY@2000 TOPIC 11/17/17 20:00 12/17/17 19:59 Dextrose (Dextrose 50%) 50 ml STAT PRN IV Hypoglycemia BS<60mg/dL 11/11/17 15:30 12/11/17 15:29 Dextrose/Sodium Chloride 1,000 ml @ 75 mls/hr [id number] IV 11/11/17 17:00 12/11/17 16:59 11/17/17 05:29 Diphenhydramine HCl (Benadryl) 25 mg Q6H PRN ORAL Itching/Pruritis 11/11/17 15:30 12/11/17 15:29 Duloxetine HCl (Cymbalta) 90 mg DAILY ORAL 11/16/17 09:00 12/12/17 08:59 11/17/17 08:46 Gabapentin (Neurontin) 300 mg THREE TIMES A DAY ORAL 11/12/17 10:00 12/12/17 09:59 11/17/17 08:46 Heparin Sodium (Porcine) (Heparin 5000 units/ml) 5,000 units EVERY 12 HOURS SUBQ 11/11/17 21:00 12/11/17 20:59 11/16/17 08:57 Heparin Sodium/ Sodium Chloride (Heparin 2000 units/Ns 1000ml premix) 2,000 unit ONCE PRN INJ PICC PLACEMENT 11/17/17 09:15 11/17/17 23:59 Hydromorphone HCl (Dilaudid) 0.5 mg Q4H PRN IVP Mod-Severe Pain (4-10) if unab 11/13/17 21:30 11/20/17 21:29 11/17/17 02:32 Ioversol (Isovue) 100 ml ONCE PRN INJ FOR RADIOLOGY USE ONLY 11/17/17 10:00 11/17/17 23:59 Levetiracetam (Keppra) 1,000 mg Q8H ORAL 11/16/17 08:00 12/16/17 07:59 11/17/17 08:46 Levothyroxine Sodium (Synthroid) 75 mcg ACBREAKFAST ORAL 11/12/17 06:30 12/12/17 06:29 11/16/17 05:36 Lidocaine HCl (Xylocaine 1% 30ml) 30 ml ONCE PRN INJ PICC PLACEMENT 11/17/17 09:15 11/17/17 23:59 Lorazepam (Ativan 2mg/ml 1ml) 2 mg Q6H PRN IV agitation 11/13/17 15:30 11/20/17 15:29 11/16/17 18:57 Methylnaltrexone [place] (Relistor) 12 mg DAILY SUBQ 11/12/17 10:15 12/12/17 10:14 11/17/17 08:47 Metoclopramide HCl (Reglan) 10 mg Q6H PRN IVP Unrelieved Severe Nausea 11/11/17 15:30 12/11/17 15:29 Nitroglycerin (Ntg) 0.4 mg Q5M X 3 DOSES PRN SL Prn Chest Pain 11/11/17 15:30 12/11/17 15:29 Ondansetron HCl (Zofran) 4 mg Q6H PRN IVP Nausea & Vomiting 11/11/17 15:30 12/11/17 15:29 11/12/17 12:37 Pantoprazole (Protonix) 40 mg DAILY ORAL 11/15/17 09:00 12/15/17 08:59 11/17/17 08:46 Piperacillin Sod/ Tazobactam Sod 3.375 gm/Dextrose 110 ml @ 27.5 mls/hr 0000,0800,1600 IVPB 11/17/17 16:00 11/24/17 15:59 Polyethylene Glycol (Miralax) 17 gm HSPRN PRN ORAL Constipation 11/11/17 15:30 12/11/17 15:29 Potassium Chloride 40 meq/ Sodium Chloride 570 ml @ 142.5 mls/ hr ONCE ONCE IVPB 11/17/17 13:00 11/17/17 16:59 Promethazine HCl 25 mg/Sodium Chloride 56 ml @ 110 mls/hr Q6H PRN IV Refractory N/V 11/11/17 15:30 12/11/17 15:29 Simethicone (Mylicon) 80 mg QIDPRN PRN ORAL gas 11/12/17 10:00 12/12/17 09:59 Theophylline (Erwin-Dur) 100 mg Q12HR ORAL 11/11/17 21:00 12/11/17 20:59 11/17/17 08:46 Topiramate (Topamax) 25 mg EVERY 12 HOURS ORAL 11/11/17 21:00 12/11/17 20:59 11/17/17 08:46 Trazodone HCl (Desyrel) 200 mg BEDTIME ORAL 11/11/17 21:00 12/11/17 20:59 11/16/17 21:35 Zolpidem Tartrate (Ambien) 5 mg QHS ORAL 11/13/17 21:00 11/20/17 20:59 11/16/17 21:35 Assessment/Plan Problem List: (1) Lung mass ICD Codes: R91.8 - Other nonspecific abnormal finding of lung field SNOMED: 513713434 (2) Chronic pain disorder ICD Codes: G89.4 - Chronic pain syndrome SNOMED: 839056556 (3) IBD (inflammatory bowel disease) ICD Codes: K63.89 - Other specified diseases of intestine SNOMED: 16403061 (4) Interstitial lung disease ICD Codes: J84.9 - Interstitial pulmonary disease, unspecified SNOMED: 69525386, 908171975 (5) COPD (chronic obstructive pulmonary disease) ICD Codes: J44.9 - Chronic obstructive pulmonary disease SNOMED: 26409283 Assessment/Plan f/u cytology of pleural fluid, if not conclusive she will have CT guided thoracentesis. symptomatic treatment pain management titrate fio2 to sat of 92% Rob Wagner MD Nov 17, 2017 14:20
--- NOTE | 2017-11-17 14:24 | Pre-Procedure Note/Attestation ---
Pre-Procedure Note/Attestation Complete Prior to Procedure Planned Procedure: not applicable Procedure Narrative: PICC line Indications for Procedure Pre-Operative Diagnosis: need for IV access Attestation Request for PICC line placement made. Consent obtained by primary team. Consent confirmed prior to PICC line placement I attest that I re-evaluated the patient just prior to the surgery and that there has been no change in the patient's H&P, except as documented below: Joe Antony M.D. Nov 17, 2017 14:24
--- NOTE | 2017-11-17 14:26 | Operative Note - PDOC ---
Operative Note Operative Note Pre-op Diagnosis: need for IV access Procedure: PICC line placement Post-op Diagnosis: same Post-op Diagnosis: same as pre-op Anesthesia: local Specimen: none Complications: none Condition: stable Estimated Blood Loss: minimal Drains: none Implant(s) used?: Yes Indications for Procedure Need IV access Description of Procedure successful placement of PICC line via left brachial vein. Cathter ok for use Joe Antony M.D. Nov 17, 2017 14:26
--- NOTE | 2017-11-17 14:34 | Diagnostic Imaging Report ---
Indications: Needs long-term IV access Technique: Ultrasound confirms patent compressible left brachial vein. Total sterile technique, including sterile probe cover and sterile gel, hat, mask,, sterile gown, large sterile drape, and preparation with 2% chlorhexidine utilized. Local anesthesia with 1% lidocaine. Under real-time ultrasound guidance, puncture left brachial vein using 21-gauge needle, documented and archived, passage 0.018 guidewire under direct fluoroscopy. Wire was advanced into the IVC, and a second confirmation of placement within the venous system. Appropriate length was measured. Catheter was cut to length. Exchange for 5 [place] peel-away sheath. 5 [place] dual-lumen power PICC cut to 45 cm. It was inserted through the peel-away sheath. Peel-away sheath and guidewire removed. Catheter fixed to the skin. Both catheter ports aspirated and flushed. Patient tolerated procedure well, without immediate complication. Digital radiograph documents satisfactory catheter tip position, at the cavoatrial junction. Total fluoroscopy time 0.4 minutes. Total dose area product 23 dGycm2 Impression: Successful placement of 5 [place] double-lumen PICC under sonographic and fluoroscopic guidance, as described above. Catheter cleared for immediate use.
[2017-11-17 16:00] VITALS: BP 137/85
[2017-11-17] MEDS ORDERED: Piperacillin/Tazobactam 3.375 GM in D5W 110 ML IVPB SCH (16:00)
--- NOTE | 2017-11-17 16:24 | Infectious Diseases Prog Note ---
Assessment/Plan Assessment/Plan ASSESSMENT: The patient is a 66-year-old female with, Low-grade fever. probable due to SBO ,resolved Leukocytosis, mild- recurrent- ?2ry to possible malignancy Probable small bowel obstruction Recent history of polymicrobial gram-negative bacteremia including Stenotrophomonas maltophilia and Enterobacter. History of Aggie esophagitis. History of C. difficile in the past. Air anterior to the liver , ? free intraperitoneal air ( Surg doubt perforation ) Lung and liver masses Ro Malignancy CT: Pleural-based mass at the left lung base / Moderate-sized left pleural effusion, left-sided pleural nodularity and retroperitoneal and paraspinal nodules/masses. Left inferior hilar mass lesion partially visualized. New low- attenuation liver lesion ( concerning for malignancy/metastatic disease ) Pl effusion SP ultrasound-guided thoracentesis, 960 cc ( m/l 2/2 mets, no evid of Empyema ) -exudate fluid: WBC 613 (n 6), pH 8, lguc 98, prot 4.6 (serum 8.4); cx stain: GRAM STAIN Final GRAM STAIN RESULT FEW WHITE BLOOD CELLS NO ORGANISMS SEEN cx negative Crohn's disease. History of bowel obstruction x2 with lysis of adhesions in 2004. COPD. History of chronic pain syndrome, on morphine pump. CVA in 2004. Seizure disorder. PLAN: cont the patient on empiric IV Zosyn d# 5/5-7 in the setting of SBO Monitor cultures. ( pl effusion ) Monitor CBC and BMP. follow GI recommendations hem, surg f/u plan for CT guided bx lung mass pending cytology results. Subjective Allergies: Coded Allergies: No Known Allergies (Verified , 05/21/06) Subjective afebrile mild leukocytosis pleural fluid cx neg; cytology penidng Objective Vital Signs Last 24 Hour Vital Signs Date Time Temp Pulse Resp B/P (MAP) Pulse Ox O2 Delivery O2 Flow Rate FiO2 11/17/17 12:00 97.3 103 12 127/82 100 Room Air 97.3 11/17/17 08:00 98.2 100 12 152/103 100 98.2 11/17/17 04:00 97.8 97 18 153/94 100 97.8 11/17/17 00:00 98.2 98 19 155/94 100 98.2 11/16/17 20:00 98.3 109 19 152/98 100 98.3 11/16/17 17:34 98.4 11/16/17 17:04 98.4 Height (Feet): 5 Height (Inches): 6.00 Weight (Pounds): 129 Objective HEENT: anicteric Respiratory/Chest: normal breath sounds Cardiovascular: regular rhythm Abdomen: tender Laboratory Tests Test 11/17/17 07:00 White Blood Count 14.9 K/UL (4.8-10.8) H Red Blood Count 4.62 M/UL (4.20-5.40) Hemoglobin 13.6 G/DL (12.0-16.0) Hematocrit 41.7 % (37.0-47.0) Mean Corpuscular Volume 90 FL (80-99) Mean Corpuscular Hemoglobin 29.4 PG (27.0-31.0) Mean Corpuscular Hemoglobin Concent 32.5 G/DL (32.0-36.0) Red Cell Distribution Width 15.1 % (11.6-14.8) H Platelet Count 227 K/UL (150-450) Mean Platelet Volume 7.3 FL (6.5-10.1) Neutrophils (%) (Auto) 76.1 % (45.0-75.0) H Lymphocytes (%) (Auto) 14.5 % (20.0-45.0) L Monocytes (%) (Auto) 8.5 % (1.0-10.0) Eosinophils (%) (Auto) 0.3 % (0.0-3.0) Basophils (%) (Auto) 0.6 % (0.0-2.0) Sodium Level 134 MMOL/L (136-145) L Potassium Level 3.1 MMOL/L (3.5-5.1) L Chloride Level 101 MMOL/L (98-107) Carbon Dioxide Level 23 MMOL/L (21-32) Anion Gap 10 mmol/L (5-15) Blood Urea Nitrogen 11 mg/dL (7-18) Creatinine 0.8 MG/DL (0.55-1.30) Estimat Glomerular Filtration Rate > 60 mL/min (>60) Glucose Level 109 MG/DL (74-106) H Calcium Level 9.5 MG/DL (8.5-10.1) Current Medications Medications (Trade) Dose Ordered Sig/Vaibhav Route PRN Reason Start Time Stop Time Status Last Admin Dose Admin Acetaminophen (Tylenol) 650 mg Q4H PRN ORAL fever 11/11/17 15:30 12/11/17 15:29 Acetaminophen/ Hydrocodone Bitart ([place] 10/325) 1 tab Q4H PRN ORAL Pain Scale (3-5) 11/13/17 12:30 11/20/17 08:29 11/15/17 09:14 Al Hydroxide/Mg Hydroxide (Mylanta II) 30 ml Q6H PRN ORAL dyspepsia 11/11/17 15:30 12/11/17 15:29 Atorvastatin Calcium (Lipitor) 40 mg BEDTIME ORAL 11/11/17 21:00 12/11/17 20:59 11/16/17 21:35 Bupropion HCl (Wellbutrin) 100 mg DAILY ORAL 11/12/17 09:00 12/12/17 08:59 11/17/17 08:46 Chlorhexidine Gluconate (Leah-Hex 2%) 1 applic DAILY@2000 TOPIC 11/17/17 20:00 12/17/17 19:59 Dextrose (Dextrose 50%) 50 ml STAT PRN IV Hypoglycemia BS<60mg/dL 11/11/17 15:30 12/11/17 15:29 Dextrose/Sodium Chloride 1,000 ml @ 75 mls/hr [id number] IV 11/11/17 17:00 12/11/17 16:59 11/17/17 05:29 Diphenhydramine HCl (Benadryl) 25 mg Q6H PRN ORAL Itching/Pruritis 11/11/17 15:30 12/11/17 15:29 Duloxetine HCl (Cymbalta) 90 mg DAILY ORAL 11/16/17 09:00 12/12/17 08:59 11/17/17 08:46 Gabapentin (Neurontin) 300 mg THREE TIMES A DAY ORAL 11/12/17 10:00 12/12/17 09:59 11/17/17 08:46 Heparin Sodium (Porcine) (Heparin 5000 units/ml) 5,000 units EVERY 12 HOURS SUBQ 11/11/17 21:00 12/11/17 20:59 11/16/17 08:57 Heparin Sodium/ Sodium Chloride (Heparin 2000 units/Ns 1000ml premix) 2,000 unit ONCE PRN INJ PICC PLACEMENT 11/17/17 09:15 11/17/17 23:59 Hydromorphone HCl (Dilaudid) 0.5 mg Q4H PRN IVP Mod-Severe Pain (4-10) if unab 11/13/17 21:30 11/20/17 21:29 11/17/17 02:32 Ioversol (Isovue) 100 ml ONCE PRN INJ FOR RADIOLOGY USE ONLY 11/17/17 10:00 11/17/17 23:59 Levetiracetam (Keppra) 1,000 mg Q8H ORAL 11/16/17 08:00 12/16/17 07:59 11/17/17 08:46 Levothyroxine Sodium (Synthroid) 75 mcg ACBREAKFAST ORAL 11/12/17 06:30 12/12/17 06:29 11/16/17 05:36 Lidocaine HCl (Xylocaine 1% 30ml) 30 ml ONCE PRN INJ PICC PLACEMENT 11/17/17 09:15 11/17/17 23:59 Lorazepam (Ativan 2mg/ml 1ml) 2 mg Q6H PRN IV agitation 11/13/17 15:30 11/20/17 15:29 11/16/17 18:57 Methylnaltrexone [place] (Relistor) 12 mg DAILY SUBQ 11/12/17 10:15 12/12/17 10:14 11/17/17 08:47 Metoclopramide HCl (Reglan) 10 mg Q6H PRN IVP Unrelieved Severe Nausea 11/11/17 15:30 12/11/17 15:29 Nitroglycerin (Ntg) 0.4 mg Q5M X 3 DOSES PRN SL Prn Chest Pain 11/11/17 15:30 12/11/17 15:29 Ondansetron HCl (Zofran) 4 mg Q6H PRN IVP Nausea & Vomiting 11/11/17 15:30 12/11/17 15:29 11/12/17 12:37 Pantoprazole (Protonix) 40 mg DAILY ORAL 11/15/17 09:00 12/15/17 08:59 11/17/17 08:46 Piperacillin Sod/ Tazobactam Sod 3.375 gm/Dextrose 110 ml @ 27.5 mls/hr 0000,0800,1600 IVPB 11/17/17 16:00 11/17/17 23:59 Polyethylene Glycol (Miralax) 17 gm HSPRN PRN ORAL Constipation 11/11/17 15:30 12/11/17 15:29 Potassium Chloride 40 meq/ Sodium Chloride 570 ml @ 142.5 mls/ hr ONCE ONCE IVPB 11/17/17 13:00 11/17/17 16:59 11/17/17 14:51 Promethazine HCl 25 mg/Sodium Chloride 56 ml @ 110 mls/hr Q6H PRN IV Refractory N/V 11/11/17 15:30 12/11/17 15:29 Simethicone (Mylicon) 80 mg QIDPRN PRN ORAL gas 11/12/17 10:00 12/12/17 09:59 Theophylline ([place]-Dur) 100 mg Q12HR ORAL 11/11/17 21:00 12/11/17 20:59 11/17/17 08:46 Topiramate (Topamax) 25 mg EVERY 12 HOURS ORAL 11/11/17 21:00 12/11/17 20:59 11/17/17 08:46 Trazodone HCl (Desyrel) 200 mg BEDTIME ORAL 11/11/17 21:00 12/11/17 20:59 11/16/17 21:35 Zolpidem Tartrate (Ambien) 5 mg QHS ORAL 11/13/17 21:00 11/20/17 20:59 11/16/17 21:35 Kathlene Lafleur M.D. Nov 17, 2017 16:24
--- NOTE | 2017-11-17 18:44 | General Progress Note ---
Assessment/Plan Assessment/Plan (1) Chronic abdominal pain (2) Chronic pancreatitis (3) Crohn's disease (4) Herniated nucleus pulposus, lumbar (5) Lumbar spondylosis (6) Radiculopathy of lumbar region Pt will be continued on Neurontin, Dilaudid and [place] and pt has intrathecal pump. HOLD OPIOIDS FOR OVERSEDATION OR SBP<90 OR DBP<60 OR O2SAT<92% OR RR<12 Pt was d/w Dr. Malhotra and he concurred. Subjective Date patient seen: Nov 17, 2017 Time patient seen: 06:00 - PM Allergies: Coded Allergies: No Known Allergies (Verified , 05/21/06) Subjective Constitutional: Reports: weakness HEENT: Reports: no symptoms Cardiovascular: Reports: no symptoms Respiratory: Reports: no symptoms Gastrointestinal/Abdominal: Reports: abdominal pain Genitourinary: Reports: no symptoms Neurologic/Psychiatric: Reports: weakness Endocrine: Reports: no symptoms Hematologic/Lymphatic: Reports: no symptoms Subjective Her pain has been stable and tolerated on the Dilaudid and norco as needed. Nurse feels patient is lethargic. We will start parameters to hold opioids. Objective Last 24 Hour Vital Signs Date Time Temp Pulse Resp B/P (MAP) Pulse Ox O2 Delivery O2 Flow Rate FiO2 11/17/17 12:00 97.3 103 12 127/82 100 Room Air 97.3 11/17/17 08:00 98.2 100 12 152/103 100 98.2 11/17/17 04:00 97.8 97 18 153/94 100 97.8 11/17/17 00:00 98.2 98 19 155/94 100 98.2 11/16/17 20:00 98.3 109 19 152/98 100 98.3 Intake and Output 11/16/17 11/17/17 19:00 07:00 Intake Total 1082.5 ml 55.0 ml Balance 1082.5 ml 55.0 ml Intake Oral 480 ml IV Total 602.5 ml 55.0 ml # Voids 3 Laboratory Tests 11/17/17 07:00: White Blood Count 14.9H, Red Blood Count 4.62, Hemoglobin 13.6, Hematocrit 41.7 , Mean Corpuscular Volume 90, Mean Corpuscular Hemoglobin 29.4, Mean Corpuscular Hemoglobin Concent 32.5, Red Cell Distribution Width 15.1H, Platelet Count 227, Mean Platelet Volume 7.3, Neutrophils (%) (Auto) 76.1H, Lymphocytes (%) (Auto) 14.5L, Monocytes (%) (Auto) 8.5, Eosinophils (%) (Auto) 0.3, Basophils (%) (Auto) 0.6, Sodium Level 134L, Potassium Level 3.1L, Chloride Level 101, Carbon Dioxide Level 23, Anion Gap 10, Blood Urea Nitrogen 11, Creatinine 0.8, Estimat Glomerular Filtration Rate > 60, Glucose Level 109H , Calcium Level 9.5 Height (Feet): 5 Height (Inches): 6.00 Weight (Pounds): 129 Objective General Appearance: no apparent distress, alert EENT: normal ENT inspection, TMs normal Neck: normal alignment, supple Cardiovascular: normal rate, regular rhythm Respiratory/Chest: decreased breath sounds Abdomen: tender, distended, intrathecal pump palpated Extremities: non-tender Edema: no edema noted Neurologic: alert, oriented x 3 Skin: warm/dry JOSE ARREDONDO Nov 17, 2017 18:44
[2017-11-17 20:00] VITALS: BP 133/76
[2017-11-17] MEDS: Dyna-Hex 2% Top Sol 2oz TOPIC SCH (21:32)
[2017-11-17] MEDS: Zolpidem 5mg tab ORAL SCH (21:33)
[2017-11-17] MEDS: Atorvastatin 20mg tab ORAL SCH (21:33)
[2017-11-17] MEDS: TraZODone 100mg tab ORAL SCH (21:33)
--- NOTE | 2017-11-17 22:45 | Progress Note ---
DATE: 11/17/2017 SUBJECTIVE: This is a 66-year-old female patient with abdominal pain, possible abdominal tenderness. She is confused, disorganized, high levels of anxiety. Diagnosed with bipolar 2. MENTAL STATUS EXAMINATION: This is a 66-year-old female with psychomotor agitation. Mood irritable and agitated. Affect, guarded and restricted. Thought process, disorganized and illogical. . Insight and judgment is fair. DIAGNOSIS: Bipolar 2. PLAN: Treat with Cymbalta 90 mg daily, Neurontin 300 mg three times a day, Topamax 25 mg twice a day, trazodone mg at bedtime, and Ativan 2 mg q.6 h. p.r.n. anxiety and agitation. Provided 18 to 20 minutes of supportive therapy. Seen and assessed at bedside. Chart was reviewed and discussed with staff. Mena Goncalves M.D. DR: MIKHAIL JOB#: [id number] CC:
--- NOTE | 2017-11-17 23:50 | General Progress Note ---
Assessment/Plan Assessment/Plan IMPRESSION: 1. Left lower lobe lung mass. 2. Left inferior hilar mass. 3. Left pleural base lung mass. 4. Left pleural effusion. 5. Retroperitoneal lymphadenopathy. 6. Multiple low-attenuation liver lesions. 7. Crohn disease. 8. Opioid dependence. 9. Chronic obstructive pulmonary disease. 10. History of smoking. 11. Emphysema. 12. Perianal abscess. 13. Intractable abdominal pain. 14. Status post morphine pump placement. 15. Depression. 16. Psychosis. 17. Seizure disorder. 18. Radiculopathy of lumbar region. 19. Abdominal pain. 20. Nausea and vomiting. 21. Status post exploratory laparotomy. 22. Pneumoperitoneum. 23. Inflammatory bowel disease. 24. History of elevated CEA. 25. History of lower gastrointestinal bleed. 26. Chronic pain syndrome. 27. History of small bowel obstruction. 28. Status post laparotomy x2. 29. Failure to thrive. 30. Leukocytosis. RECOMMENDATIONS: 1. Watch count. 2. Watch coagulopathy. 3. Paracentesis with cytology. 4. Pulmonary evaluation/followup. 5. Mediastinoscopy versus CT-guided lung biopsy. 6. The patient needs tissue diagnosis. 7. ID followup. 8. Pain control. 9. Psychiatry evaluation. 10. Skin care. 11. Nutrition. 12. Continue current treatment. 13. Discussed with staff. 14. Close followup Subjective Date patient seen: Nov 17, 2017 Constitutional: Denies: no symptoms, chills, diaphoresis, fever, malaise, weakness, other HEENT: Denies: no symptoms, eye pain, blurred vision, tearing, double vision, ear pain, ear discharge, nose pain, nose congestion, throat pain, throat swelling, mouth pain, mouth swelling, other Cardiovascular: Denies: no symptoms, chest pain, edema, irregular heart rate, lightheadedness, palpitations, syncope, other Respiratory: Denies: no symptoms, cough, orthopnea, shortness of breath, SOB with excertion, SOB at rest, sputum, stridor, wheezing, other Gastrointestinal/Abdominal: Denies: no symptoms, abdomen distended, abdominal pain, black stools, tarry stools, blood in stool, constipated, diarrhea, difficulty swallowing, nausea, poor appetite, poor fluid intake, rectal bleeding , vomiting, other Genitourinary: Denies: no symptoms, burning, discharge, frequency, flank pain, hematuria, incontinence, pain, urgency, other Neurologic/Psychiatric: Denies: no symptoms, anxiety, depressed, emotional problems, headache, numbness, paresthesia, pre-existing deficit, seizure, tingling, tremors, weakness, other Hematologic/Lymphatic: Reports: anemia Allergies: Coded Allergies: No Known Allergies (Verified , 05/21/06) Subjective Wbc count worsened today. H/H stable. On pain control Objective Last 24 Hour Vital Signs Date Time Temp Pulse Resp B/P (MAP) Pulse Ox O2 Delivery O2 Flow Rate FiO2 11/17/17 20:00 97.8 97 11 133/76 100 Room Air 97.8 11/17/17 16:00 97.7 102 13 137/85 100 Room Air 97.7 11/17/17 12:00 97.3 103 12 127/82 100 Room Air 97.3 11/17/17 08:00 98.2 100 12 152/103 100 98.2 11/17/17 04:00 97.8 97 18 153/94 100 97.8 11/17/17 00:00 98.2 98 19 155/94 100 98.2 Intake and Output 11/16/17 11/17/17 19:00 07:00 Intake Total 1082.5 ml 55.0 ml Balance 1082.5 ml 55.0 ml Intake Oral 480 ml IV Total 602.5 ml 55.0 ml # Voids 3 Laboratory Tests 11/17/17 07:00: White Blood Count 14.9H, Red Blood Count 4.62, Hemoglobin 13.6, Hematocrit 41.7 , Mean Corpuscular Volume 90, Mean Corpuscular Hemoglobin 29.4, Mean Corpuscular Hemoglobin Concent 32.5, Red Cell Distribution Width 15.1H, Platelet Count 227, Mean Platelet Volume 7.3, Neutrophils (%) (Auto) 76.1H, Lymphocytes (%) (Auto) 14.5L, Monocytes (%) (Auto) 8.5, Eosinophils (%) (Auto) 0.3, Basophils (%) (Auto) 0.6, Sodium Level 134L, Potassium Level 3.1L, Chloride Level 101, Carbon Dioxide Level 23, Anion Gap 10, Blood Urea Nitrogen 11, Creatinine 0.8, Estimat Glomerular Filtration Rate > 60, Glucose Level 109H , Calcium Level 9.5 Height (Feet): 5 Height (Inches): 6.00 Weight (Pounds): 129 General Appearance: confused Respiratory/Chest: decreased breath sounds YUMIKO CASTELAN Nov 17, 2017 23:50
[2017-11-18] VITALS: BP 129/80
[2017-11-18 04:00] VITALS: BP 120/79
[2017-11-18] MEDS: D5 1/2NS 1,000 ML IV SCH ×2 (05:52→22:48)
[2017-11-18 07:27] LABS: BASOPHILS % (AUTO) 0.7 % (0.0-2.0); EOSINOPHILS % (AUTO) 0.8 % (0.0-3.0); HEMATOCRIT 37.7 % (37.0-47.0); HEMOGLOBIN 12.3 G/DL (12.0-16.0); LYMPHOCYTES % (AUTO) 18.5 % (20.0-45.0); MEAN CORPUSCULAR VOLUME 91 FL (80-99); MONOCYTES % (AUTO) 11.5 % (1.0-10.0); NEUTROPHILS % (AUTO) 68.5 % (45.0-75.0); PLATELET COUNT 190 K/UL (150-450); RED BLOOD COUNT 4.15 M/UL (4.20-5.40); RED CELL DISTRIBUTION WIDTH 15.2 % (11.6-14.8); WHITE BLOOD COUNT 13.5 K/UL (4.8-10.8)
[2017-11-18 07:39] LABS: INR 1.2 (0.9-1.1)
[2017-11-18 07:48] LABS: ANION GAP 11 mmol/L (5-15); BLOOD UREA NITROGEN 10 mg/dL (7-18); CALCIUM 9.2 MG/DL (8.5-10.1); CARBON DIOXIDE 22 MMOL/L (21-32); CHLORIDE 102 MMOL/L (98-107); CREATININE 0.8 MG/DL (0.55-1.30); POTASSIUM 3.6 MMOL/L (3.5-5.1); SODIUM 135 MMOL/L (136-145)
[2017-11-18 08:00] VITALS: BP 104/72
--- NOTE | 2017-11-18 08:01 | Progress Note ---
DATE: 11/16/2017 PSYCHOTHERAPY CONSULTATION PROGRESS NOTE SUBJECTIVE: The patient is a 66-year-old female patient with a history of bipolar disorder. Today, the patient has continued to be irritable and very anxious. She states that she is in physical pain and distress, has been unable to cope with the pain experiencing symptoms of anxiety and depression. The patient was able to process her thoughts . PLAN: This clinician assessed this patient and assessed the patient's mental status. Provided the patient with reality orientation and supportive psychotherapy. Encouraging the patient to participate in treatment milieu, working on coping skills. Continue with behavioral management. This clinician has reviewed the patient's chart and discussed the treatment with treatment team. Dilshad Abel PsyD. DR: BETSEY JOB#: [id number] CC:
--- NOTE | 2017-11-18 08:59 | General Progress Note ---
Assessment/Plan Assessment/Plan (1) Chronic abdominal pain (2) Chronic pancreatitis (3) Crohn's disease (4) Herniated nucleus pulposus, lumbar (5) Lumbar spondylosis (6) Radiculopathy of lumbar region Pt will be continued on Neurontin, Dilaudid and Skippers and pt has intrathecal pump. HOLD OPIOIDS FOR OVERSEDATION OR SBP<90 OR DBP<60 OR O2SAT<92% OR RR<12 Pt was d/w Dr. Malhotra and he concurred. Subjective Date patient seen: Nov 18, 2017 Time patient seen: 07:30 - am Allergies: Coded Allergies: No Known Allergies (Verified , 05/21/06) Subjective Constitutional: Reports: weakness HEENT: Reports: no symptoms Cardiovascular: Reports: no symptoms Respiratory: Reports: no symptoms Gastrointestinal/Abdominal: Reports: abdominal pain Genitourinary: Reports: no symptoms Neurologic/Psychiatric: Reports: weakness Endocrine: Reports: no symptoms Hematologic/Lymphatic: Reports: no symptoms Subjective She is in bed and reports that her pain has been better and is having less pain today. Patient has no new complaints. Objective Last 24 Hour Vital Signs Date Time Temp Pulse Resp B/P (MAP) Pulse Ox O2 Delivery O2 Flow Rate FiO2 11/18/17 08:00 97.7 100 11 104/72 98 97.7 11/18/17 04:00 97.3 94 10 120/79 94 Room Air 97.3 11/18/17 00:00 97.7 99 10 129/80 100 Room Air 97.7 11/17/17 20:00 97.8 97 11 133/76 100 Room Air 97.8 11/17/17 16:00 97.7 102 13 137/85 100 Room Air 97.7 11/17/17 12:00 97.3 103 12 127/82 100 Room Air 97.3 Intake and Output 11/17/17 11/18/17 19:00 07:00 Intake Total 120 ml 935 ml Balance 120 ml 935 ml Intake Oral 120 ml IV Total 935 ml # Voids 2 3 # Bowel Movements 1 1 Laboratory Tests 11/18/17 06:00: White Blood Count 13.5H, Red Blood Count 4.15L, Hemoglobin 12.3, Hematocrit 37.7 , Mean Corpuscular Volume 91, Mean Corpuscular Hemoglobin 29.6, Mean Corpuscular Hemoglobin Concent 32.6, Red Cell Distribution Width 15.2H, Platelet Count 190, Mean Platelet Volume 7.4, Neutrophils (%) (Auto) 68.5, Lymphocytes (%) (Auto) 18.5L, Monocytes (%) (Auto) 11.5H, Eosinophils (%) (Auto ) 0.8, Basophils (%) (Auto) 0.7, Prothrombin Time 12.6H, Prothromb Time International Ratio 1.2H, Sodium Level 135L, Potassium Level 3.6, Chloride Level 102, Carbon Dioxide Level 22, Anion Gap 11, Blood Urea Nitrogen 10, Creatinine 0.8, Estimat Glomerular Filtration Rate > 60, Glucose Level 79, Calcium Level 9.2 Height (Feet): 5 Height (Inches): 6.00 Weight (Pounds): 129 Objective General Appearance: no apparent distress, alert EENT: normal ENT inspection, TMs normal Neck: normal alignment, supple Cardiovascular: normal rate, regular rhythm Respiratory/Chest: decreased breath sounds Abdomen: tender, distended, intrathecal pump palpated Extremities: non-tender Edema: no edema noted Neurologic: alert, oriented x 3 Skin: warm/dry JOSE ARREDONDO Nov 18, 2017 08:59
--- NOTE | 2017-11-18 09:05 | Diagnostic Imaging Report ---
INDICATION: Abdominal pain, shortness of breath, history of COPD, MT, congestive heart failure, coronary artery disease, pneumonia TECHNIQUE: Patient ingested oral contrast. IV administration nonionic contrast. Multiphasic spiral acquisitions obtained through the chest, abdomen, and pelvis Multiplanar reconstructions were generated. Total dose length product 1132.24 mGycm. CTDIvol(s) 11.9,11.8 mGy. Radiation dose was minimized using automated exposure control COMPARISON: Abdomen and pelvis compared to 11/12/2017 noncontrast study, chest compared to 12/25/2013 FINDINGS Chest: There is left hilar mass or adenopathy which measures 4.2 cm AP by 3.7 cm transverse by 5.6 cm craniocaudad. This compresses the upper lobe pulmonary veins and also results in some narrowing of the upper lobe pulmonary arteries. This mass is low in attenuation. There is a large left infrahilar mass or adenopathy which measures 4.1 x 3.3 cm. There is extensive confluent mediastinal lymphadenopathy. Enlarged subcarinal node measures 6.8 x 6 x 3.6 cm. Other large nodes are seen in the prevascular space, aortopulmonary window, and upper mediastinum. There are multiple peripheral pleural masses on the left as well. Pleural-based masses are also seen within the major fissure There is a large left pleural effusion. The lung parenchyma demonstrates extensive bullous change, bronchiectasis, and honeycombing bilaterally, consistent with COPD and chronic fibrosis. No pleural fluid is demonstrated on the right., Some secretions are seen within the bilateral mainstem bronchi origins The heart is not enlarged. There is minimal pericardial thickening versus fluid demonstrated. No axillary or chest wall mass or adenopathy. There is a fracture of the right posterior 11th rib. There is some callus formation but fracture line persists. There is an old healed fracture deformity of the left posterolateral 10th rib. There is a left arm PICC. When compared to the prior exam, the masses, adenopathy, and pleural fluid are new finding. There has been extensive progression of the bronchiectasis, bullous changes, and fibrotic changes. Abdomen pelvis: Again demonstrated is evidence of prior right hemicolectomy and ileocolic anastomosis. Contrast is seen in the colon, presumably from the previous exam, as the distal small bowel is not opacified. The distal small bowel loops, probably those in the region of the ileocolic anastomosis, are distended, more so than previously, and there is an air-fluid level. The more proximal small bowel loops contain contrast, are less distended than the distal small bowel but somewhat more distended than previously. The previously noted free intraperitoneal air is no longer evident. No free intraperitoneal fluid collections are demonstrated. Multiple small noncystic masses are seen within the liver, largest and the right hepatic lobe measuring 1.2 cm in diameter. The gallbladder is nondistended. The bile ducts are nondilated. The pancreas, spleen, adrenals are unremarkable. There is retroperitoneal lymphadenopathy, with multiple enlarged retroperitoneal nodes present, some appearing low-attenuation and therefore necrotic. The kidneys demonstrate bilateral subcentimeter low-attenuation lesions which are too small to characterize, most likely benign simple cortical cysts. No pelvic mass or adenopathy. The uterus is surgically absent. A pain pump reservoir is seen in the left lower quadrant subcutaneous fat, and what is presumably intrathecal pain pump tubing is seen entering the spinal canal at the L3-4 level. The bones are unremarkable. As mentioned above, bowel distention appears greater in on the previous study. Other findings are unchanged IMPRESSION: Evidence of disseminated malignancy, with large left pulmonary hilar mass or adenopathy, extensive left hilar and mediastinal adenopathy, multiple pleural-based masses on the left, multiple masses within the liver, and retroperitoneal lymphadenopathy. Large left pleural effusion, probably malignant, also reported on 11/20/[address] Extensive chronic pulmonary parenchymal disease, with honeycombing indicative of chronic fibrosis, bronchiectasis, and bullous changes, all progressive since prior chest CT of 2014 Evidence of extensive prior bowel surgery. Fairly extensive small bowel dilatation, as described, more severe than on prior study 11/12/2017 although similar in extent to an earlier study of 10/07/2017. Suspected bowel dilatation is functional related to the multiple other surgeries. However, given the presence of nondilated small bowel loops as well as unopacified distal small bowel loops, the possibility of small bowel obstruction should be considered Previously demonstrated free intraperitoneal air is no longer evident. No evidence of contrast extravasation Other findings as noted, including pain pump,, PICC prior hysterectomy, probable renal cysts, incompletely healed right 11th rib fracture, old healed left 10th rib fracture, minimal pericardial thickening versus fluid The CT scanner at [facility] is accredited by the [employer] and the scans are performed using protocols designed to limit radiation exposure to as low as reasonably achievable to attain images of sufficient resolution adequate for diagnostic evaluation.
[2017-11-18] MEDS: Relistor 12mg/0.6ml Vial SUBQ SCH (09:15)
[2017-11-18] MEDS: Theophylline ER 100mg ORAL SCH ×2 (09:15→20:49)
[2017-11-18] MEDS: DULoxetine 30mg cap ORAL SCH (09:15)
[2017-11-18] MEDS: Topiramate 25mg tab ORAL SCH ×2 (09:15→20:49)
[2017-11-18] MEDS: Heparin 5000 units/ml inj SUBQ SCH ×2 (09:17→20:51)
--- NOTE | 2017-11-18 10:43 | GI Progress Note ---
Assessment/Plan Problems: (1) Crohn's disease ICD Codes: K50.90 - Crohn's disease SNOMED: 09959904 Qualifiers: Qualified Codes: K50.919 - Crohn's disease, unspecified, with unspecified complications (2) Opioid dependence ICD Codes: F11.20 - Opioid dependence SNOMED: 76588715 (3) SBO (small bowel obstruction) ICD Codes: K56.609 - Unspecified intestinal obstruction, unspecified as to partial versus complete obstruction SNOMED: 274758164 (4) Chronic abdominal pain Status: not improved, unchanged Status Narrative Discussed with Dr. Gallegos. Assessment/Plan CT AP reviewed >> Evidence of disseminated malignancy, with large left pulmonary hilar mass or adenopathy, extensive left hilar and mediastinal adenopathy, multiple pleural- based masses on the left, multiple masses within the liver, and retroperitoneal lymphadenopathy. Assessment - suspected SBO or PSBO - Crohn's disease - possible free air on xrays - surgery following - Pleural based mass with pleural effusion Recommendations fu oncology recs pain mgmt Subjective Subjective generalized pain Objective Last 24 Hour Vital Signs Date Time Temp Pulse Resp B/P (MAP) Pulse Ox O2 Delivery O2 Flow Rate FiO2 11/18/17 08:00 97.7 100 11 104/72 98 97.7 11/18/17 04:00 97.3 94 10 120/79 94 Room Air 97.3 11/18/17 00:00 97.7 99 10 129/80 100 Room Air 97.7 11/17/17 20:00 97.8 97 11 133/76 100 Room Air 97.8 11/17/17 16:00 97.7 102 13 137/85 100 Room Air 97.7 11/17/17 12:00 97.3 103 12 127/82 100 Room Air 97.3 Intake and Output 11/17/17 11/18/17 19:00 07:00 Intake Total 120 ml 935 ml Balance 120 ml 935 ml Intake Oral 120 ml IV Total 935 ml # Voids 2 3 # Bowel Movements 1 1 Laboratory Tests Test 11/18/17 06:00 White Blood Count 13.5 K/UL (4.8-10.8) H Red Blood Count 4.15 M/UL (4.20-5.40) L Hemoglobin 12.3 G/DL (12.0-16.0) Hematocrit 37.7 % (37.0-47.0) Mean Corpuscular Volume 91 FL (80-99) Mean Corpuscular Hemoglobin 29.6 PG (27.0-31.0) Mean Corpuscular Hemoglobin Concent 32.6 G/DL (32.0-36.0) Red Cell Distribution Width 15.2 % (11.6-14.8) H Platelet Count 190 K/UL (150-450) Mean Platelet Volume 7.4 FL (6.5-10.1) Neutrophils (%) (Auto) 68.5 % (45.0-75.0) Lymphocytes (%) (Auto) 18.5 % (20.0-45.0) L Monocytes (%) (Auto) 11.5 % (1.0-10.0) H Eosinophils (%) (Auto) 0.8 % (0.0-3.0) Basophils (%) (Auto) 0.7 % (0.0-2.0) Prothrombin Time 12.6 SEC (9.30-11.50) H Prothromb Time International Ratio 1.2 (0.9-1.1) H Sodium Level 135 MMOL/L (136-145) L Potassium Level 3.6 MMOL/L (3.5-5.1) Chloride Level 102 MMOL/L (98-107) Carbon Dioxide Level 22 MMOL/L (21-32) Anion Gap 11 mmol/L (5-15) Blood Urea Nitrogen 10 mg/dL (7-18) Creatinine 0.8 MG/DL (0.55-1.30) Estimat Glomerular Filtration Rate > 60 mL/min (>60) Glucose Level 79 MG/DL (74-106) Calcium Level 9.2 MG/DL (8.5-10.1) Height (Feet): 5 Height (Inches): 6.00 Weight (Pounds): 129 General Appearance: WD/WN, no apparent distress, alert, thin Cardiovascular: normal rate Respiratory/Chest: normal breath sounds, no respiratory distress Abdominal Exam: normal bowel sounds, non tender, soft Extremities: normal range of motion, non-tender Tara Scott N.P. Nov 18, 2017 10:43
[2017-11-18 12:00] VITALS: BP 146/92
[2017-11-18] MEDS ORDERED: HYDROcodone/Acetamin 10/325 tab ORAL PRN (12:30)
[2017-11-18] MEDS: HYDROcodone/Acetamin 10/325 tab ORAL PRN (12:32)
--- NOTE | 2017-11-18 13:35 | Pulmonology Progress Note ---
Assessment/Plan Problems: (1) Metastatic cancer (2) Malignant pleural effusion (3) Chronic pain disorder (4) IBD (inflammatory bowel disease) (5) Interstitial lung disease (6) COPD (chronic obstructive pulmonary disease) Assessment/Plan d/w pathologist, there are malignant non-small cells in the pleural cavity. it seems metastatic, continue current symptomatic treatment oncology on the case already pain management Subjective ROS Limited/Unobtainable: No Constitutional: Reports: no symptoms HEENT: Repors: no symptoms Allergies: Coded Allergies: No Known Allergies (Verified , 05/21/06) Objective Last 24 Hour Vital Signs Date Time Temp Pulse Resp B/P (MAP) Pulse Ox O2 Delivery O2 Flow Rate FiO2 11/18/17 12:00 97.2 101 15 146/92 98 97.2 11/18/17 08:00 97.7 100 11 104/72 98 97.7 11/18/17 04:00 97.3 94 10 120/79 94 Room Air 97.3 11/18/17 00:00 97.7 99 10 129/80 100 Room Air 97.7 11/17/17 20:00 97.8 97 11 133/76 100 Room Air 97.8 11/17/17 16:00 97.7 102 13 137/85 100 Room Air 97.7 Intake and Output 11/17/17 11/18/17 19:00 07:00 Intake Total 120 ml 935 ml Balance 120 ml 935 ml Intake Oral 120 ml IV Total 935 ml # Voids 2 3 # Bowel Movements 1 1 General Appearance: cachetic HEENT: normocephalic Breasts: no masses Abdomen: normal bowel sounds Genitourinary: normal external genitalia Extremities: no clubbing Skin: no lesions Laboratory Tests 11/18/17 06:00: White Blood Count 13.5H, Red Blood Count 4.15L, Hemoglobin 12.3, Hematocrit 37.7 , Mean Corpuscular Volume 91, Mean Corpuscular Hemoglobin 29.6, Mean Corpuscular Hemoglobin Concent 32.6, Red Cell Distribution Width 15.2H, Platelet Count 190, Mean Platelet Volume 7.4, Neutrophils (%) (Auto) 68.5, Lymphocytes (%) (Auto) 18.5L, Monocytes (%) (Auto) 11.5H, Eosinophils (%) (Auto ) 0.8, Basophils (%) (Auto) 0.7, Prothrombin Time 12.6H, Prothromb Time International Ratio 1.2H, Sodium Level 135L, Potassium Level 3.6, Chloride Level 102, Carbon Dioxide Level 22, Anion Gap 11, Blood Urea Nitrogen 10, Creatinine 0.8, Estimat Glomerular Filtration Rate > 60, Glucose Level 79, Calcium Level 9.2 Current Medications Medications (Trade) Dose Ordered Sig/Vaibhav Route PRN Reason Start Time Stop Time Status Last Admin Dose Admin Acetaminophen (Tylenol) 650 mg Q4H PRN ORAL fever 11/11/17 15:30 12/11/17 15:29 Acetaminophen/ Hydrocodone Bitart ([place] 10/325) 1 tab Q4H PRN ORAL Pain Scale (3-5) 11/18/17 10:45 11/25/17 08:29 11/18/17 12:32 Al Hydroxide/Mg Hydroxide (Mylanta II) 30 ml Q6H PRN ORAL dyspepsia 11/11/17 15:30 12/11/17 15:29 Atorvastatin Calcium (Lipitor) 40 mg BEDTIME ORAL 11/11/17 21:00 12/11/17 20:59 11/17/17 21:33 Bupropion HCl (Wellbutrin) 100 mg DAILY ORAL 11/12/17 09:00 12/12/17 08:59 11/18/17 09:15 Chlorhexidine Gluconate (Leah-Hex 2%) 1 applic DAILY@2000 TOPIC 11/17/17 20:00 12/17/17 19:59 11/17/17 21:32 Dextrose (Dextrose 50%) 50 ml STAT PRN IV Hypoglycemia BS<60mg/dL 11/11/17 15:30 12/11/17 15:29 Dextrose/Sodium Chloride 1,000 ml @ 75 mls/hr [id number] IV 11/11/17 17:00 12/11/17 16:59 11/18/17 05:52 Diphenhydramine HCl (Benadryl) 25 mg Q6H PRN ORAL Itching/Pruritis 11/11/17 15:30 12/11/17 15:29 Duloxetine HCl (Cymbalta) 90 mg DAILY ORAL 11/16/17 09:00 12/12/17 08:59 11/18/17 09:15 Gabapentin (Neurontin) 300 mg THREE TIMES A DAY ORAL 11/12/17 10:00 12/12/17 09:59 11/18/17 12:32 Heparin Sodium (Porcine) (Heparin 5000 units/ml) 5,000 units EVERY 12 HOURS SUBQ 11/11/17 21:00 12/11/17 20:59 11/18/17 09:17 Hydromorphone HCl (Dilaudid) 0.5 mg Q4H PRN IVP PAIN SCALE 4-10 if unab 11/18/17 09:30 11/25/17 09:29 Levetiracetam (Keppra) 1,000 mg Q8H ORAL 11/16/17 08:00 12/16/17 07:59 11/18/17 08:00 Levothyroxine Sodium (Synthroid) 75 mcg ACBREAKFAST ORAL 11/12/17 06:30 12/12/17 06:29 11/18/17 05:53 Lorazepam (Ativan 2mg/ml 1ml) 2 mg Q6H PRN IV agitation 11/13/17 15:30 11/20/17 15:29 11/16/17 18:57 Methylnaltrexone [place] (Relistor) 12 mg DAILY SUBQ 11/12/17 10:15 12/12/17 10:14 11/18/17 09:15 Metoclopramide HCl (Reglan) 10 mg Q6H PRN IVP Unrelieved Severe Nausea 11/11/17 15:30 12/11/17 15:29 Nitroglycerin (Ntg) 0.4 mg Q5M X 3 DOSES PRN SL Prn Chest Pain 11/11/17 15:30 12/11/17 15:29 Ondansetron HCl (Zofran) 4 mg Q6H PRN IVP Nausea & Vomiting 11/11/17 15:30 12/11/17 15:29 11/12/17 12:37 Pantoprazole (Protonix) 40 mg DAILY ORAL 11/15/17 09:00 12/15/17 08:59 11/18/17 09:16 Polyethylene Glycol (Miralax) 17 gm HSPRN PRN ORAL Constipation 11/11/17 15:30 12/11/17 15:29 Promethazine HCl 25 mg/Sodium Chloride 56 ml @ 110 mls/hr Q6H PRN IV Refractory N/V 11/11/17 15:30 12/11/17 15:29 Simethicone (Mylicon) 80 mg QIDPRN PRN ORAL gas 11/12/17 10:00 12/12/17 09:59 Theophylline (Erwin-Dur) 100 mg Q12HR ORAL 11/11/17 21:00 12/11/17 20:59 11/18/17 09:15 Topiramate (Topamax) 25 mg EVERY 12 HOURS ORAL 11/11/17 21:00 12/11/17 20:59 11/18/17 09:15 Trazodone HCl (Desyrel) 200 mg BEDTIME ORAL 11/11/17 21:00 12/11/17 20:59 11/17/17 21:33 Zolpidem Tartrate (Ambien) 5 mg QHS ORAL 11/13/17 21:00 11/20/17 20:59 11/17/17 21:33 Rob Wagner MD Nov 18, 2017 13:35
--- NOTE | 2017-11-18 13:42 | General Progress Note ---
Assessment/Plan Problem List: (1) Crohn's disease ICD Codes: K50.90 - Crohn's disease SNOMED: 18497815 Qualifiers: Qualified Codes: K50.919 - Crohn's disease, unspecified, with unspecified complications (2) Opioid dependence ICD Codes: F11.20 - Opioid dependence SNOMED: 36104430 (3) Intractable abdominal pain ICD Codes: R10.9 - Unspecified abdominal pain SNOMED: 02282841, 451711308 (4) COPD (chronic obstructive pulmonary disease) ICD Codes: J44.9 - Chronic obstructive pulmonary disease SNOMED: 19897438 (5) Shortness of breath (6) SOB (shortness of breath) ICD Codes: R06.02 - Shortness of breath SNOMED: 162919392 (7) UTI (urinary tract infection) ICD Codes: N39.0 - Urinary tract infection, site not specified SNOMED: 02397795 (8) Lung mass ICD Codes: R91.8 - Other nonspecific abnormal finding of lung field SNOMED: 841555801 Status: unchanged Assessment/Plan ot pt diet pain control sx eval cbc bmp am heme f/u ltach eval Subjective Constitutional: Reports: weakness Allergies: Coded Allergies: No Known Allergies (Verified , 05/21/06) All Systems: reviewed and negative except above Subjective sleepy calm in bed Objective Last 24 Hour Vital Signs Date Time Temp Pulse Resp B/P (MAP) Pulse Ox O2 Delivery O2 Flow Rate FiO2 11/18/17 12:00 97.2 101 15 146/92 98 97.2 11/18/17 08:00 97.7 100 11 104/72 98 97.7 11/18/17 04:00 97.3 94 10 120/79 94 Room Air 97.3 11/18/17 00:00 97.7 99 10 129/80 100 Room Air 97.7 11/17/17 20:00 97.8 97 11 133/76 100 Room Air 97.8 11/17/17 16:00 97.7 102 13 137/85 100 Room Air 97.7 Intake and Output 11/17/17 11/18/17 19:00 07:00 Intake Total 120 ml 935 ml Balance 120 ml 935 ml Intake Oral 120 ml IV Total 935 ml # Voids 2 3 # Bowel Movements 1 1 Laboratory Tests 11/18/17 06:00: White Blood Count 13.5H, Red Blood Count 4.15L, Hemoglobin 12.3, Hematocrit 37.7 , Mean Corpuscular Volume 91, Mean Corpuscular Hemoglobin 29.6, Mean Corpuscular Hemoglobin Concent 32.6, Red Cell Distribution Width 15.2H, Platelet Count 190, Mean Platelet Volume 7.4, Neutrophils (%) (Auto) 68.5, Lymphocytes (%) (Auto) 18.5L, Monocytes (%) (Auto) 11.5H, Eosinophils (%) (Auto ) 0.8, Basophils (%) (Auto) 0.7, Prothrombin Time 12.6H, Prothromb Time International Ratio 1.2H, Sodium Level 135L, Potassium Level 3.6, Chloride Level 102, Carbon Dioxide Level 22, Anion Gap 11, Blood Urea Nitrogen 10, Creatinine 0.8, Estimat Glomerular Filtration Rate > 60, Glucose Level 79, Calcium Level 9.2 Height (Feet): 5 Height (Inches): 6.00 Weight (Pounds): 129 General Appearance: lethargic EENT: normal ENT inspection Neck: normal alignment Cardiovascular: normal peripheral pulses, normal rate, regular rhythm Respiratory/Chest: chest wall non-tender, decreased breath sounds Abdomen: normal bowel sounds, non tender, soft Extremities: normal inspection Edema: no edema noted Arm (L), no edema noted Arm (R), no edema noted Leg (L), no edema noted Leg (R), no edema noted Pedal (L), no edema noted Pedal (R), no edema noted Generalized Neurologic: responsive, motor weakness Skin: normal pigmentation, warm/dry BAYRON BENEDICT Nov 18, 2017 13:42
--- NOTE | 2017-11-18 15:47 | General Surgery Progress Note ---
General Surgery-Progress Note Subjective Additional Comments still with pain. path reviewed. recent CT reviewed. 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 Objective Last 24 Hour Vital Signs Date Time Temp Pulse Resp B/P (MAP) Pulse Ox O2 Delivery O2 Flow Rate FiO2 11/18/17 12:00 97.2 101 15 146/92 98 97.2 11/18/17 08:00 97.7 100 11 104/72 98 97.7 11/18/17 04:00 97.3 94 10 120/79 94 Room Air 97.3 11/18/17 00:00 97.7 99 10 129/80 100 Room Air 97.7 11/17/17 20:00 97.8 97 11 133/76 100 Room Air 97.8 11/17/17 16:00 97.7 102 13 137/85 100 Room Air 97.7 I&O Intake and Output 11/17/17 11/18/17 19:00 07:00 Intake Total 120 ml 935 ml Balance 120 ml 935 ml Intake Oral 120 ml IV Total 935 ml # Voids 2 3 # Bowel Movements 1 1 Cardiovascular: RSR Respiratory: clear Abdomen: soft, distended, present bowel sounds Extremities: no tenderness, no cyanosis Laboratory Tests Test 11/18/17 06:00 White Blood Count 13.5 K/UL (4.8-10.8) H Red Blood Count 4.15 M/UL (4.20-5.40) L Hemoglobin 12.3 G/DL (12.0-16.0) Hematocrit 37.7 % (37.0-47.0) Mean Corpuscular Volume 91 FL (80-99) Mean Corpuscular Hemoglobin 29.6 PG (27.0-31.0) Mean Corpuscular Hemoglobin Concent 32.6 G/DL (32.0-36.0) Red Cell Distribution Width 15.2 % (11.6-14.8) H Platelet Count 190 K/UL (150-450) Mean Platelet Volume 7.4 FL (6.5-10.1) Neutrophils (%) (Auto) 68.5 % (45.0-75.0) Lymphocytes (%) (Auto) 18.5 % (20.0-45.0) L Monocytes (%) (Auto) 11.5 % (1.0-10.0) H Eosinophils (%) (Auto) 0.8 % (0.0-3.0) Basophils (%) (Auto) 0.7 % (0.0-2.0) Prothrombin Time 12.6 SEC (9.30-11.50) H Prothromb Time International Ratio 1.2 (0.9-1.1) H Sodium Level 135 MMOL/L (136-145) L Potassium Level 3.6 MMOL/L (3.5-5.1) Chloride Level 102 MMOL/L (98-107) Carbon Dioxide Level 22 MMOL/L (21-32) Anion Gap 11 mmol/L (5-15) Blood Urea Nitrogen 10 mg/dL (7-18) Creatinine 0.8 MG/DL (0.55-1.30) Estimat Glomerular Filtration Rate > 60 mL/min (>60) Glucose Level 79 MG/DL (74-106) Calcium Level 9.2 MG/DL (8.5-10.1) Plan Problems: (1) Intractable abdominal pain Assessment & Plan: 66F with abdominal pain. very complex medical and surgical history. now with complex CT findings of left pleural effusion, left lower lung mass, large mediastinal and periaortic lymph nodes, new liver lesions, and air around the liver. unable to tell if bowel loop (possible blind end from prior surgery) noted in right upper quadrant above liver or if abscess or if free air. exam not consistent with perforation and no significant free fluid noted on CT or area of perforation. contrast into distal bowel without leak. initial leukocytosis resolved. low grade persistent fevers. recent cough. unfortunately no clear explanation as to patients current condition. lung mass , effusion, new liver masses, and nodes very concerning for malignant process. Exam stable compared to prior exams (patient seen during last admission and known to me). will need much more extensive work up. I discussed these findings with patient. I explained possible need for urgent surgery but given history and complex surgical history we will monitor clinically first. if declines will proceed with surgery which is VERY high risk in her. if stable will continue with work up. patient and partner express understand and agree with plan. s/p thoracentesis 11/12. malignant non small cell cancer need tissue diagnosis left EJ line not functional and removed. did not have other access so right EJ line placed by myself. if fails will need central venous access. CT reviewed. Path reviewed Discussed with patient Need tissue. -regular diet -monitor exam clinically -trend labs -iv abx -will follow with recs. thank you for this consultation. Wolf Quan Nov 18, 2017 15:47
[2017-11-18 16:00] VITALS: BP 126/81
--- NOTE | 2017-11-18 16:25 | Infectious Diseases Prog Note ---
Assessment/Plan Assessment/Plan ASSESSMENT: The patient is a 66-year-old female with, Low-grade fever. probable due to SBO ,resolved Leukocytosis, mild- recurrent- ?2ry to possible malignancy Probable small bowel obstruction Recent history of polymicrobial gram-negative bacteremia including Stenotrophomonas maltophilia and Enterobacter. History of Aggie esophagitis. History of C. difficile in the past. Air anterior to the liver , ? free intraperitoneal air ( Surg doubt perforation ) Lung and liver masses Ro Malignancy CT: Pleural-based mass at the left lung base / Moderate-sized left pleural effusion, left-sided pleural nodularity and retroperitoneal and paraspinal nodules/masses. Left inferior hilar mass lesion partially visualized. New low- attenuation liver lesion ( concerning for malignancy/metastatic disease ) Pl effusion SP ultrasound-guided thoracentesis, 960 cc ( m/l 2/2 mets, no evid of Empyema ) -exudate fluid: WBC 613 (n 6), pH 8, lguc 98, prot 4.6 (serum 8.4); cx stain: GRAM STAIN Final GRAM STAIN RESULT FEW WHITE BLOOD CELLS NO ORGANISMS SEEN cx negative prelime cytology report: malignant non-small cells in the pleural cavity. Crohn's disease. History of bowel obstruction x2 with lysis of adhesions in 2004. COPD. History of chronic pain syndrome, on morphine pump. CVA in 2004. Seizure disorder. PLAN: cont to monitor off abx -/25 SP Zosyn #5 Monitor CBC and BMP. follow GI recommendations hem, surg f/u plan for CT guided bx lung mass Subjective Allergies: Coded Allergies: No Known Allergies (Verified , 05/21/06) Subjective afebrile leukocytosis improving prelime cytology report: malignant non-small cells in the pleural cavity. Objective Vital Signs Last 24 Hour Vital Signs Date Time Temp Pulse Resp B/P (MAP) Pulse Ox O2 Delivery O2 Flow Rate FiO2 11/18/17 12:00 97.2 101 15 146/92 98 97.2 11/18/17 08:00 97.7 100 11 104/72 98 97.7 11/18/17 04:00 97.3 94 10 120/79 94 Room Air 97.3 11/18/17 00:00 97.7 99 10 129/80 100 Room Air 97.7 11/17/17 20:00 97.8 97 11 133/76 100 Room Air 97.8 Height (Feet): 5 Height (Inches): 6.00 Weight (Pounds): 129 Objective HEENT: anicteric Respiratory/Chest: normal breath sounds Cardiovascular: regular rhythm Abdomen: tender Laboratory Tests Test 11/18/17 06:00 White Blood Count 13.5 K/UL (4.8-10.8) H Red Blood Count 4.15 M/UL (4.20-5.40) L Hemoglobin 12.3 G/DL (12.0-16.0) Hematocrit 37.7 % (37.0-47.0) Mean Corpuscular Volume 91 FL (80-99) Mean Corpuscular Hemoglobin 29.6 PG (27.0-31.0) Mean Corpuscular Hemoglobin Concent 32.6 G/DL (32.0-36.0) Red Cell Distribution Width 15.2 % (11.6-14.8) H Platelet Count 190 K/UL (150-450) Mean Platelet Volume 7.4 FL (6.5-10.1) Neutrophils (%) (Auto) 68.5 % (45.0-75.0) Lymphocytes (%) (Auto) 18.5 % (20.0-45.0) L Monocytes (%) (Auto) 11.5 % (1.0-10.0) H Eosinophils (%) (Auto) 0.8 % (0.0-3.0) Basophils (%) (Auto) 0.7 % (0.0-2.0) Prothrombin Time 12.6 SEC (9.30-11.50) H Prothromb Time International Ratio 1.2 (0.9-1.1) H Sodium Level 135 MMOL/L (136-145) L Potassium Level 3.6 MMOL/L (3.5-5.1) Chloride Level 102 MMOL/L (98-107) Carbon Dioxide Level 22 MMOL/L (21-32) Anion Gap 11 mmol/L (5-15) Blood Urea Nitrogen 10 mg/dL (7-18) Creatinine 0.8 MG/DL (0.55-1.30) Estimat Glomerular Filtration Rate > 60 mL/min (>60) Glucose Level 79 MG/DL (74-106) Calcium Level 9.2 MG/DL (8.5-10.1) Current Medications Medications (Trade) Dose Ordered Sig/Vaibhav Route PRN Reason Start Time Stop Time Status Last Admin Dose Admin Acetaminophen (Tylenol) 650 mg Q4H PRN ORAL fever 11/11/17 15:30 12/11/17 15:29 Acetaminophen/ Hydrocodone Bitart ([place]idan 10/325) 1 tab Q4H PRN ORAL Pain Scale (3-5) 11/18/17 10:45 11/25/17 08:29 11/18/17 12:32 Al Hydroxide/Mg Hydroxide (Mylanta II) 30 ml Q6H PRN ORAL dyspepsia 11/11/17 15:30 12/11/17 15:29 Atorvastatin Calcium (Lipitor) 40 mg BEDTIME ORAL 11/11/17 21:00 12/11/17 20:59 11/17/17 21:33 Bupropion HCl (Wellbutrin) 100 mg DAILY ORAL 11/12/17 09:00 12/12/17 08:59 11/18/17 09:15 Chlorhexidine Gluconate (Leah-Hex 2%) 1 applic DAILY@2000 TOPIC 11/17/17 20:00 12/17/17 19:59 11/17/17 21:32 Dextrose (Dextrose 50%) 50 ml STAT PRN IV Hypoglycemia BS<60mg/dL 11/11/17 15:30 12/11/17 15:29 Dextrose/Sodium Chloride 1,000 ml @ 75 mls/hr [id number] IV 11/11/17 17:00 12/11/17 16:59 11/18/17 05:52 Diphenhydramine HCl (Benadryl) 25 mg Q6H PRN ORAL Itching/Pruritis 11/11/17 15:30 12/11/17 15:29 Duloxetine HCl (Cymbalta) 90 mg DAILY ORAL 11/16/17 09:00 12/12/17 08:59 11/18/17 09:15 Gabapentin (Neurontin) 300 mg THREE TIMES A DAY ORAL 11/12/17 10:00 12/12/17 09:59 11/18/17 12:32 Heparin Sodium (Porcine) (Heparin 5000 units/ml) 5,000 units EVERY 12 HOURS SUBQ 11/11/17 21:00 12/11/17 20:59 11/18/17 09:17 Hydromorphone HCl (Dilaudid) 0.5 mg Q4H PRN IVP PAIN SCALE 4-10 if unab 11/18/17 09:30 11/25/17 09:29 Levetiracetam (Keppra) 1,000 mg Q8H ORAL 11/16/17 08:00 12/16/17 07:59 11/18/17 08:00 Levothyroxine Sodium (Synthroid) 75 mcg ACBREAKFAST ORAL 11/12/17 06:30 12/12/17 06:29 11/18/17 05:53 Lorazepam (Ativan 2mg/ml 1ml) 2 mg Q6H PRN IV agitation 11/13/17 15:30 11/20/17 15:29 11/16/17 18:57 Methylnaltrexone Hitchins (Relistor) 12 mg DAILY SUBQ 11/12/17 10:15 12/12/17 10:14 11/18/17 09:15 Metoclopramide HCl (Reglan) 10 mg Q6H PRN IVP Unrelieved Severe Nausea 11/11/17 15:30 12/11/17 15:29 Nitroglycerin (Ntg) 0.4 mg Q5M X 3 DOSES PRN SL Prn Chest Pain 11/11/17 15:30 12/11/17 15:29 Ondansetron HCl (Zofran) 4 mg Q6H PRN IVP Nausea & Vomiting 11/11/17 15:30 12/11/17 15:29 11/12/17 12:37 Pantoprazole (Protonix) 40 mg DAILY ORAL 11/15/17 09:00 12/15/17 08:59 11/18/17 09:16 Polyethylene Glycol (Miralax) 17 gm HSPRN PRN ORAL Constipation 11/11/17 15:30 12/11/17 15:29 Promethazine HCl 25 mg/Sodium Chloride 56 ml @ 110 mls/hr Q6H PRN IV Refractory N/V 11/11/17 15:30 12/11/17 15:29 Simethicone (Mylicon) 80 mg QIDPRN PRN ORAL gas 11/12/17 10:00 12/12/17 09:59 Theophylline (Erwin-Dur) 100 mg Q12HR ORAL 11/11/17 21:00 12/11/17 20:59 11/18/17 09:15 Topiramate (Topamax) 25 mg EVERY 12 HOURS ORAL 11/11/17 21:00 12/11/17 20:59 11/18/17 09:15 Trazodone HCl (Desyrel) 200 mg BEDTIME ORAL 11/11/17 21:00 12/11/17 20:59 11/17/17 21:33 Zolpidem Tartrate (Ambien) 5 mg QHS ORAL 11/13/17 21:00 11/20/17 20:59 11/17/17 21:33 Kathleen Lafleur M.D. Nov 18, 2017 16:25
[2017-11-18 20:00] VITALS: BP 103/71
[2017-11-18] MEDS: Dyna-Hex 2% Top Sol 2oz TOPIC SCH (20:30)
[2017-11-18] MEDS: TraZODone 100mg tab ORAL SCH (20:49)
[2017-11-18] MEDS: Atorvastatin 20mg tab ORAL SCH (20:50)
[2017-11-18] MEDS: Zolpidem 5mg tab ORAL SCH (21:00)
--- NOTE | 2017-11-18 23:53 | General Progress Note ---
Assessment/Plan Assessment/Plan IMPRESSION: 1. Left lower lobe lung mass. 2. Left inferior hilar mass. 3. Left pleural base lung mass. 4. Left pleural effusion. 5. Retroperitoneal lymphadenopathy. 6. Multiple low-attenuation liver lesions. 7. Crohn disease. 8. Opioid dependence. 9. Chronic obstructive pulmonary disease. 10. History of smoking. 11. Emphysema. 12. Perianal abscess. 13. Intractable abdominal pain. 14. Status post morphine pump placement. 15. Depression. 16. Psychosis. 17. Seizure disorder. 18. Radiculopathy of lumbar region. 19. Abdominal pain. 20. Nausea and vomiting. 21. Status post exploratory laparotomy. 22. Pneumoperitoneum. 23. Inflammatory bowel disease. 24. History of elevated CEA. 25. History of lower gastrointestinal bleed. 26. Chronic pain syndrome. 27. History of small bowel obstruction. 28. Status post laparotomy x2. 29. Failure to thrive. 30. Leukocytosis. RECOMMENDATIONS: 1. Watch count. 2. Watch coagulopathy. 3. Paracentesis with cytology. 4. Pulmonary evaluation/followup. 5. Mediastinoscopy versus CT-guided lung biopsy. 6. The patient needs tissue diagnosis. 7. ID followup. 8. Pain control. 9. Psychiatry evaluation. 10. Skin care. 11. Nutrition. 12. Continue current treatment. 13. Discussed with staff. 14. Close followup Subjective Date patient seen: Nov 18, 2017 Constitutional: Denies: no symptoms, chills, diaphoresis, fever, malaise, weakness, other HEENT: Denies: no symptoms, eye pain, blurred vision, tearing, double vision, ear pain, ear discharge, nose pain, nose congestion, throat pain, throat swelling, mouth pain, mouth swelling, other Cardiovascular: Denies: no symptoms, chest pain, edema, irregular heart rate, lightheadedness, palpitations, syncope, other Respiratory: Denies: no symptoms, cough, orthopnea, shortness of breath, SOB with excertion, SOB at rest, sputum, stridor, wheezing, other Gastrointestinal/Abdominal: Denies: no symptoms, abdomen distended, abdominal pain, black stools, tarry stools, blood in stool, constipated, diarrhea, difficulty swallowing, nausea, poor appetite, poor fluid intake, rectal bleeding , vomiting, other Genitourinary: Denies: no symptoms, burning, discharge, frequency, flank pain, hematuria, incontinence, pain, urgency, other Neurologic/Psychiatric: Denies: no symptoms, anxiety, depressed, emotional problems, headache, numbness, paresthesia, pre-existing deficit, seizure, tingling, tremors, weakness, other Hematologic/Lymphatic: Reports: anemia Allergies: Coded Allergies: No Known Allergies (Verified , 05/21/06) Subjective Leukocytosis. H/H stable. Feeling better with pain management. Objective Last 24 Hour Vital Signs Date Time Temp Pulse Resp B/P (MAP) Pulse Ox O2 Delivery O2 Flow Rate FiO2 11/18/17 20:00 98.3 96 8 103/71 96 Room Air 98.3 11/18/17 16:00 97.5 100 20 126/81 100 97.5 11/18/17 12:00 97.2 101 15 146/92 98 97.2 11/18/17 08:00 97.7 100 11 104/72 98 97.7 11/18/17 04:00 97.3 94 10 120/79 94 Room Air 97.3 11/18/17 00:00 97.7 99 10 129/80 100 Room Air 97.7 Intake and Output 11/17/17 11/18/17 19:00 07:00 Intake Total 120 ml 935 ml Balance 120 ml 935 ml Intake Oral 120 ml IV Total 935 ml # Voids 2 3 # Bowel Movements 1 1 Laboratory Tests 11/18/17 06:00: White Blood Count 13.5H, Red Blood Count 4.15L, Hemoglobin 12.3, Hematocrit 37.7 , Mean Corpuscular Volume 91, Mean Corpuscular Hemoglobin 29.6, Mean Corpuscular Hemoglobin Concent 32.6, Red Cell Distribution Width 15.2H, Platelet Count 190, Mean Platelet Volume 7.4, Neutrophils (%) (Auto) 68.5, Lymphocytes (%) (Auto) 18.5L, Monocytes (%) (Auto) 11.5H, Eosinophils (%) (Auto ) 0.8, Basophils (%) (Auto) 0.7, Prothrombin Time 12.6H, Prothromb Time International Ratio 1.2H, Sodium Level 135L, Potassium Level 3.6, Chloride Level 102, Carbon Dioxide Level 22, Anion Gap 11, Blood Urea Nitrogen 10, Creatinine 0.8, Estimat Glomerular Filtration Rate > 60, Glucose Level 79, Calcium Level 9.2 Height (Feet): 5 Height (Inches): 6.00 Weight (Pounds): 129 General Appearance: no apparent distress Cardiovascular: normal rate Respiratory/Chest: decreased breath sounds Abdomen: normal bowel sounds, non tender, soft YUMIKO CASTELAN Nov 18, 2017 23:53
[2017-11-19] VITALS: BP 119/75
--- NOTE | 2017-11-19 00:15 | Progress Note ---
DATE: 11/18/2017 SUBJECTIVE: The patient is a 66-year-old female patient with intractable abdominal pain. She does have some confusion, disorganized thought process, mood lability. She has got high levels of anxiety as well worsened by stress of her medical illness. That is why her attending has requested daily psychiatric consultation. MENTAL STATUS EXAMINATION: This is a 66-year-old -[place] female. Appearance is disheveled. Attitude irritable and agitated. Affect guarded and restricted. Intellect is fair. Thought process, linear goal directed. Denies any auditory or visual hallucinations or delusions. Insight and judgment is fair. DIAGNOSIS: Bipolar 2. PLAN: Treat the patient with Topamax 25 mg twice a day, trazodone 200 mg at bedtime, Ativan 1 mg p.o. q.6 h. p.r.n., Neurontin , Cymbalta 90 mg daily . Chart reviewed. Discussed with staff. . An 18 to 20 minutes of supportive psychotherapy provided. Mena Goncalves M.D. DR: XIN JOB#: [id number] CC:
[2017-11-19 04:00] VITALS: BP 110/68
[2017-11-19 06:42] LABS: BASOPHILS % (AUTO) 0.4 % (0.0-2.0); EOSINOPHILS % (AUTO) 1.5 % (0.0-3.0); HEMATOCRIT 39.3 % (37.0-47.0); HEMOGLOBIN 12.5 G/DL (12.0-16.0); MEAN CORPUSCULAR VOLUME 91 FL (80-99); MONOCYTES % (AUTO) 9.1 % (1.0-10.0); NEUTROPHILS % (AUTO) 70.9 % (45.0-75.0); PLATELET COUNT 184 K/UL (150-450); RED BLOOD COUNT 4.31 M/UL (4.20-5.40); RED CELL DISTRIBUTION WIDTH 15.1 % (11.6-14.8); WHITE BLOOD COUNT 13.1 K/UL (4.8-10.8)
[2017-11-19 07:22] LABS: ANION GAP 11 mmol/L (5-15); BLOOD UREA NITROGEN 7 mg/dL (7-18); CALCIUM 9.2 MG/DL (8.5-10.1); CARBON DIOXIDE 23 MMOL/L (21-32); CHLORIDE 102 MMOL/L (98-107); CREATININE 0.7 MG/DL (0.55-1.30); POTASSIUM 3.1 MMOL/L (3.5-5.1); SODIUM 136 MMOL/L (136-145)
[2017-11-19 08:00] VITALS: BP 128/77
--- NOTE | 2017-11-19 08:55 | General Progress Note ---
Assessment/Plan Assessment/Plan (1) Chronic abdominal pain (2) Chronic pancreatitis (3) Crohn's disease (4) Herniated nucleus pulposus, lumbar (5) Lumbar spondylosis (6) Radiculopathy of lumbar region Pt will be continued on Neurontin, Dilaudid and Alsey and pt has intrathecal pump. HOLD OPIOIDS FOR OVERSEDATION OR SBP<90 OR DBP<60 OR O2SAT<92% OR RR<12 Pt was d/w Dr. Malhotra and he concurred. Subjective Date patient seen: Nov 19, 2017 Time patient seen: 07:00 - am Allergies: Coded Allergies: No Known Allergies (Verified , 05/21/06) Subjective Constitutional: Reports: weakness HEENT: Reports: no symptoms Cardiovascular: Reports: no symptoms Respiratory: Reports: no symptoms Gastrointestinal/Abdominal: Reports: abdominal pain Genitourinary: Reports: no symptoms Neurologic/Psychiatric: Reports: weakness Endocrine: Reports: no symptoms Hematologic/Lymphatic: Reports: no symptoms Subjective Patient is sitting up in bed and reports that her pain has been tolerated on the Dilaudid and Alsey when given. Objective Last 24 Hour Vital Signs Date Time Temp Pulse Resp B/P (MAP) Pulse Ox O2 Delivery O2 Flow Rate FiO2 11/19/17 08:00 98.1 98 10 128/77 94 Room Air 98.1 11/19/17 04:00 96.4 89 10 110/68 94 Room Air 96.4 11/19/17 00:00 98.2 80 12 119/75 91 Room Air 98.2 11/18/17 20:00 98.3 96 8 103/71 96 Room Air 98.3 11/18/17 16:00 97.5 100 20 126/81 100 97.5 11/18/17 12:00 97.2 101 15 146/92 98 97.2 Intake and Output 11/18/17 11/19/17 19:00 07:00 Intake Total 260 ml 900 ml Balance 260 ml 900 ml Intake Oral 260 ml IV Total 900 ml # Voids 6 2 # Bowel Movements 2 Laboratory Tests 11/19/17 05:00: White Blood Count 13.1H, Red Blood Count 4.31, Hemoglobin 12.5, Hematocrit 39.3 , Mean Corpuscular Volume 91, Mean Corpuscular Hemoglobin 29.0, Mean Corpuscular Hemoglobin Concent 31.8L, Red Cell Distribution Width 15.1H, Platelet Count 184, Mean Platelet Volume 7.7, Neutrophils (%) (Auto) 70.9, Lymphocytes (%) (Auto) 18.0L, Monocytes (%) (Auto) 9.1, Eosinophils (%) (Auto) 1.5, Basophils (%) (Auto) 0.4, Sodium Level 136, Potassium Level 3.1L, Chloride Level 102, Carbon Dioxide Level 23, Anion Gap 11, Blood Urea Nitrogen 7, Creatinine 0.7, Estimat Glomerular Filtration Rate > 60, Glucose Level 82, Calcium Level 9.2 Height (Feet): 5 Height (Inches): 6.00 Weight (Pounds): 129 Objective General Appearance: no apparent distress, alert EENT: normal ENT inspection, TMs normal Neck: normal alignment, supple Cardiovascular: normal rate, regular rhythm Respiratory/Chest: decreased breath sounds Abdomen: tender, distended, intrathecal pump palpated Extremities: non-tender Edema: no edema noted Neurologic: alert, oriented x 3 Skin: warm/dry JOSE ARREDONDO Nov 19, 2017 08:55
[2017-11-19] MEDS: Topiramate 25mg tab ORAL SCH ×2 (09:00→20:45)
[2017-11-19] MEDS: Heparin 5000 units/ml inj SUBQ SCH ×2 (09:28→20:53)
[2017-11-19] MEDS: Relistor 12mg/0.6ml Vial SUBQ SCH (09:31)
[2017-11-19] MEDS: Theophylline ER 100mg ORAL SCH ×2 (09:32→20:45)
[2017-11-19] MEDS: DULoxetine 30mg cap ORAL SCH (09:32)
--- NOTE | 2017-11-19 10:45 | Progress Note ---
DATE: 11/19/2017 SUBJECTIVE: The patient is a 66-year-old female patient with intractable abdominal pain. She does have some confusion, disorganized thought process, and she has high levels of anxiety and irritability and mood lability. She has got no logical plan for her own self-care. She has got high levels of anxiety and mood lability, worsened by stress of her medical illness. That is why, her attending has requested daily psychiatric consultation. MENTAL STATUS EXAMINATION: The patient is a 66-year-old female. Appearance is disheveled. Attitude is irritable and agitated. Affect is guarded and restricted. Intellect poor. Mood depressed and anxious. Motor activity, psychomotor agitation. Attention span is poor. Orientation x2. Speech is pressured. Thought process, disorganized and illogical. Thought content, auditory hallucinations and paranoid delusions. Insight and judgment is poor. DIAGNOSIS: Bipolar 2. PLAN: Plan is to treat with Cymbalta 90 mg daily, Topamax 25 mg q. 12 h., trazodone 200 mg at bedtime, Ativan 2 mg q.6 h. p.r.n., Neurontin 300 mg a day, and Wellbutrin 100 mg daily. An 18 to 20 minutes of supportive psychotherapy provided. Chart was reviewed and discussed with staff. Seen and assessed at bedside. Mena Goncalves M.D. DR: MIKHAIL JOB#: [id number] CC:
[2017-11-19 12:00] VITALS: BP_SYST 112; BP_SYST 124; BP_DIAS 74; BP_DIAS 77
[2017-11-19] MEDS: D5 1/2NS 1,000 ML IV SCH (12:11)
[2017-11-19] MEDS: HYDROcodone/Acetamin 10/325 tab ORAL PRN (12:17)
--- NOTE | 2017-11-19 12:50 | Pulmonology Progress Note ---
Assessment/Plan Problems: (1) Metastatic cancer (2) Malignant pleural effusion (3) Chronic pain disorder (4) IBD (inflammatory bowel disease) (5) Interstitial lung disease (6) COPD (chronic obstructive pulmonary disease) Assessment/Plan d/w pathologist, there are malignant non-small cells in the pleural cavity. it seems metastatic, continue current symptomatic treatment oncology on the case already pain management dc planning with comfort care. Subjective ROS Limited/Unobtainable: No Constitutional: Reports: no symptoms HEENT: Repors: no symptoms Respiratory: Reports: no symptoms Allergies: Coded Allergies: No Known Allergies (Verified , 05/21/06) Objective Last 24 Hour Vital Signs Date Time Temp Pulse Resp B/P (MAP) Pulse Ox O2 Delivery O2 Flow Rate FiO2 11/19/17 08:00 98.1 98 10 128/77 94 Room Air 98.1 11/19/17 04:00 96.4 89 10 110/68 94 Room Air 96.4 11/19/17 00:00 98.2 80 12 119/75 91 Room Air 98.2 11/18/17 20:00 98.3 96 8 103/71 96 Room Air 98.3 11/18/17 16:00 97.5 100 20 126/81 100 97.5 Intake and Output 11/18/17 11/19/17 19:00 07:00 Intake Total 260 ml 900 ml Balance 260 ml 900 ml Intake Oral 260 ml IV Total 900 ml # Voids 6 2 # Bowel Movements 2 General Appearance: WD/WN, cachetic HEENT: normocephalic, atraumatic Respiratory/Chest: lungs clear, normal breath sounds Breasts: no masses Cardiovascular: normal peripheral pulses Abdomen: soft, non tender Extremities: no cyanosis, no clubbing Skin: no lesions Laboratory Tests 11/19/17 05:00: White Blood Count 13.1H, Red Blood Count 4.31, Hemoglobin 12.5, Hematocrit 39.3 , Mean Corpuscular Volume 91, Mean Corpuscular Hemoglobin 29.0, Mean Corpuscular Hemoglobin Concent 31.8L, Red Cell Distribution Width 15.1H, Platelet Count 184, Mean Platelet Volume 7.7, Neutrophils (%) (Auto) 70.9, Lymphocytes (%) (Auto) 18.0L, Monocytes (%) (Auto) 9.1, Eosinophils (%) (Auto) 1.5, Basophils (%) (Auto) 0.4, Sodium Level 136, Potassium Level 3.1L, Chloride Level 102, Carbon Dioxide Level 23, Anion Gap 11, Blood Urea Nitrogen 7, Creatinine 0.7, Estimat Glomerular Filtration Rate > 60, Glucose Level 82, Calcium Level 9.2 Current Medications Medications (Trade) Dose Ordered Sig/Vaibhav Route PRN Reason Start Time Stop Time Status Last Admin Dose Admin Acetaminophen (Tylenol) 650 mg Q4H PRN ORAL fever 11/11/17 15:30 12/11/17 15:29 Acetaminophen/ Hydrocodone Bitart ([place] 10325) 1 tab Q4H PRN ORAL Pain Scale (3-5) 11/18/17 10:45 11/25/17 08:29 11/19/17 12:17 Al Hydroxide/Mg Hydroxide (Mylanta II) 30 ml Q6H PRN ORAL dyspepsia 11/11/17 15:30 12/11/17 15:29 Atorvastatin Calcium (Lipitor) 40 mg BEDTIME ORAL 11/11/17 21:00 12/11/17 20:59 11/18/17 20:50 Bupropion HCl (Wellbutrin) 100 mg DAILY ORAL 11/12/17 09:00 12/12/17 08:59 11/19/17 09:32 Chlorhexidine Gluconate (Leah-Hex 2%) 1 applic DAILY@2000 TOPIC 11/17/17 20:00 12/17/17 19:59 11/18/17 20:30 Dextrose (Dextrose 50%) 50 ml STAT PRN IV Hypoglycemia BS<60mg/dL 11/11/17 15:30 12/11/17 15:29 Dextrose/Sodium Chloride 1,000 ml @ 75 mls/hr [id number] IV 11/11/17 17:00 12/11/17 16:59 11/19/17 12:11 Diphenhydramine HCl (Benadryl) 25 mg Q6H PRN ORAL Itching/Pruritis 11/11/17 15:30 12/11/17 15:29 Duloxetine HCl (Cymbalta) 90 mg DAILY ORAL 11/16/17 09:00 12/12/17 08:59 11/19/17 09:32 Gabapentin (Neurontin) 300 mg THREE TIMES A DAY ORAL 4/20/18 10:00 12/12/17 09:59 11/19/17 12:10 Heparin Sodium (Porcine) (Heparin 5000 units/ml) 5,000 units EVERY 12 HOURS SUBQ 11/11/17 21:00 12/11/17 20:59 11/19/17 09:28 Hydromorphone HCl (Dilaudid) 0.5 mg Q4H PRN IVP PAIN SCALE 4-10 if unab 11/18/17 09:30 11/25/17 09:29 Levetiracetam (Keppra) 1,000 mg Q8H ORAL 11/16/17 08:00 12/16/17 07:59 11/19/17 09:35 Levothyroxine Sodium (Synthroid) 75 mcg ACBREAKFAST ORAL 11/12/17 06:30 12/12/17 06:29 11/19/17 05:53 Lorazepam (Ativan 2mg/ml 1ml) 2 mg Q6H PRN IV agitation 11/13/17 15:30 11/20/17 15:29 11/16/17 18:57 Methylnaltrexone [place] (Relistor) 12 mg DAILY SUBQ 11/12/17 10:15 12/12/17 10:14 11/19/17 09:31 Metoclopramide HCl (Reglan) 10 mg Q6H PRN IVP Unrelieved Severe Nausea 11/11/17 15:30 12/11/17 15:29 Nitroglycerin (Ntg) 0.4 mg Q5M X 3 DOSES PRN SL Prn Chest Pain 11/11/17 15:30 12/11/17 15:29 Ondansetron HCl (Zofran) 4 mg Q6H PRN IVP Nausea & Vomiting 11/11/17 15:30 12/11/17 15:29 11/12/17 12:37 Pantoprazole (Protonix) 40 mg DAILY ORAL 11/15/17 09:00 12/15/17 08:59 11/19/17 09:31 Polyethylene Glycol (Miralax) 17 gm HSPRN PRN ORAL Constipation 11/11/17 15:30 12/11/17 15:29 Promethazine HCl 25 mg/Sodium Chloride 56 ml @ 110 mls/hr Q6H PRN IV Refractory N/V 11/11/17 15:30 12/11/17 15:29 Simethicone (Mylicon) 80 mg QIDPRN PRN ORAL gas 11/12/17 10:00 12/12/17 09:59 Theophylline (Erwin-Dur) 100 mg Q12HR ORAL 11/11/17 21:00 12/11/17 20:59 11/19/17 09:32 Topiramate (Topamax) 25 mg EVERY 12 HOURS ORAL 11/11/17 21:00 12/11/17 20:59 11/19/17 09:00 Trazodone HCl (Desyrel) 200 mg BEDTIME ORAL 11/11/17 21:00 12/11/17 20:59 11/18/17 20:49 Zolpidem Tartrate (Ambien) 5 mg QHS ORAL 11/13/17 21:00 11/20/17 20:59 11/17/17 21:33 Rob Wagner MD Nov 19, 2017 12:50
--- NOTE | 2017-11-19 12:50 | General Progress Note ---
Assessment/Plan Problem List: (1) Crohn's disease ICD Codes: K50.90 - Crohn's disease SNOMED: 58141702 Qualifiers: Qualified Codes: K50.919 - Crohn's disease, unspecified, with unspecified complications (2) Opioid dependence ICD Codes: F11.20 - Opioid dependence SNOMED: 41386559 (3) Intractable abdominal pain ICD Codes: R10.9 - Unspecified abdominal pain SNOMED: 93766923, 956787472 (4) COPD (chronic obstructive pulmonary disease) ICD Codes: J44.9 - Chronic obstructive pulmonary disease SNOMED: 91775130 (5) Shortness of breath (6) SOB (shortness of breath) ICD Codes: R06.02 - Shortness of breath SNOMED: 745493220 (7) UTI (urinary tract infection) ICD Codes: N39.0 - Urinary tract infection, site not specified SNOMED: 32242642 (8) Lung mass ICD Codes: R91.8 - Other nonspecific abnormal finding of lung field SNOMED: 514462458 Status: stable, progressing, tolerating diet Assessment/Plan ot pt diet pain control sx eval cbc bmp am heme f/u dc plan if clear Subjective Constitutional: Reports: weakness Allergies: Coded Allergies: No Known Allergies (Verified , 05/21/06) All Systems: reviewed and negative except above Subjective sleepy calm in bed Objective Last 24 Hour Vital Signs Date Time Temp Pulse Resp B/P (MAP) Pulse Ox O2 Delivery O2 Flow Rate FiO2 11/19/17 08:00 98.1 98 10 128/77 94 Room Air 98.1 11/19/17 04:00 96.4 89 10 110/68 94 Room Air 96.4 11/19/17 00:00 98.2 80 12 119/75 91 Room Air 98.2 11/18/17 20:00 98.3 96 8 103/71 96 Room Air 98.3 11/18/17 16:00 97.5 100 20 126/81 100 97.5 Intake and Output 11/18/17 11/19/17 19:00 07:00 Intake Total 260 ml 900 ml Balance 260 ml 900 ml Intake Oral 260 ml IV Total 900 ml # Voids 6 2 # Bowel Movements 2 Laboratory Tests 11/19/17 05:00: White Blood Count 13.1H, Red Blood Count 4.31, Hemoglobin 12.5, Hematocrit 39.3 , Mean Corpuscular Volume 91, Mean Corpuscular Hemoglobin 29.0, Mean Corpuscular Hemoglobin Concent 31.8L, Red Cell Distribution Width 15.1H, Platelet Count 184, Mean Platelet Volume 7.7, Neutrophils (%) (Auto) 70.9, Lymphocytes (%) (Auto) 18.0L, Monocytes (%) (Auto) 9.1, Eosinophils (%) (Auto) 1.5, Basophils (%) (Auto) 0.4, Sodium Level 136, Potassium Level 3.1L, Chloride Level 102, Carbon Dioxide Level 23, Anion Gap 11, Blood Urea Nitrogen 7, Creatinine 0.7, Estimat Glomerular Filtration Rate > 60, Glucose Level 82, Calcium Level 9.2 Height (Feet): 5 Height (Inches): 6.00 Weight (Pounds): 129 General Appearance: lethargic EENT: normal ENT inspection Neck: normal alignment Cardiovascular: normal peripheral pulses, normal rate, regular rhythm Respiratory/Chest: chest wall non-tender, lungs clear, normal breath sounds Abdomen: normal bowel sounds, non tender, soft Extremities: normal inspection Edema: no edema noted Arm (L), no edema noted Arm (R), no edema noted Leg (L), no edema noted Leg (R), no edema noted Pedal (L), no edema noted Pedal (R), no edema noted Generalized Neurologic: responsive, motor weakness Skin: normal pigmentation, warm/dry BAYRON BENEDICT Nov 19, 2017 12:50
--- NOTE | 2017-11-19 13:21 | GI Progress Note ---
Assessment/Plan Problems: (1) Crohn's disease ICD Codes: K50.90 - Crohn's disease SNOMED: 93398807 Qualifiers: Qualified Codes: K50.919 - Crohn's disease, unspecified, with unspecified complications (2) Opioid dependence ICD Codes: F11.20 - Opioid dependence SNOMED: 49032663 (3) SBO (small bowel obstruction) ICD Codes: K56.609 - Unspecified intestinal obstruction, unspecified as to partial versus complete obstruction SNOMED: 409848930 (4) Chronic abdominal pain Status: stable Status Narrative Discussed with Dr. Gallegos. Assessment/Plan CT AP reviewed >> Evidence of disseminated malignancy, with large left pulmonary hilar mass or adenopathy, extensive left hilar and mediastinal adenopathy, multiple pleural- based masses on the left, multiple masses within the liver, and retroperitoneal lymphadenopathy. Assessment - suspected SBO or PSBO - Crohn's disease - possible free air on xrays - surgery following - Pleural based mass with pleural effusion Recommendations fu oncology recs pain mgmt Subjective Subjective generalized pain Objective Last 24 Hour Vital Signs Date Time Temp Pulse Resp B/P (MAP) Pulse Ox O2 Delivery O2 Flow Rate FiO2 11/19/17 08:00 98.1 98 10 128/77 94 Room Air 98.1 11/19/17 04:00 96.4 89 10 110/68 94 Room Air 96.4 11/19/17 00:00 98.2 80 12 119/75 91 Room Air 98.2 11/18/17 20:00 98.3 96 8 103/71 96 Room Air 98.3 11/18/17 16:00 97.5 100 20 126/81 100 97.5 Intake and Output 11/18/17 11/19/17 19:00 07:00 Intake Total 260 ml 900 ml Balance 260 ml 900 ml Intake Oral 260 ml IV Total 900 ml # Voids 6 2 # Bowel Movements 2 Laboratory Tests Test 11/19/17 05:00 White Blood Count 13.1 K/UL (4.8-10.8) H Red Blood Count 4.31 M/UL (4.20-5.40) Hemoglobin 12.5 G/DL (12.0-16.0) Hematocrit 39.3 % (37.0-47.0) Mean Corpuscular Volume 91 FL (80-99) Mean Corpuscular Hemoglobin 29.0 PG (27.0-31.0) Mean Corpuscular Hemoglobin Concent 31.8 G/DL (32.0-36.0) L Red Cell Distribution Width 15.1 % (11.6-14.8) H Platelet Count 184 K/UL (150-450) Mean Platelet Volume 7.7 FL (6.5-10.1) Neutrophils (%) (Auto) 70.9 % (45.0-75.0) Lymphocytes (%) (Auto) 18.0 % (20.0-45.0) L Monocytes (%) (Auto) 9.1 % (1.0-10.0) Eosinophils (%) (Auto) 1.5 % (0.0-3.0) Basophils (%) (Auto) 0.4 % (0.0-2.0) Sodium Level 136 MMOL/L (136-145) Potassium Level 3.1 MMOL/L (3.5-5.1) L Chloride Level 102 MMOL/L (98-107) Carbon Dioxide Level 23 MMOL/L (21-32) Anion Gap 11 mmol/L (5-15) Blood Urea Nitrogen 7 mg/dL (7-18) Creatinine 0.7 MG/DL (0.55-1.30) Estimat Glomerular Filtration Rate > 60 mL/min (>60) Glucose Level 82 MG/DL (74-106) Calcium Level 9.2 MG/DL (8.5-10.1) Height (Feet): 5 Height (Inches): 6.00 Weight (Pounds): 129 General Appearance: WD/WN, no apparent distress, alert, thin Cardiovascular: normal rate Respiratory/Chest: normal breath sounds, no respiratory distress Abdominal Exam: normal bowel sounds, non tender, soft Extremities: normal range of motion, non-tender Tara Scott N.P. Nov 19, 2017 13:21
[2017-11-19 16:00] VITALS: BP 140/71
--- NOTE | 2017-11-19 16:24 | General Surgery Progress Note ---
General Surgery-Progress Note Subjective Symptoms: tolerating diet, passing flatus, BM Additional Comments doing well. no acute events. comfortable. Objective Last 24 Hour Vital Signs Date Time Temp Pulse Resp B/P (MAP) Pulse Ox O2 Delivery O2 Flow Rate FiO2 11/19/17 12:00 97.9 88 10 124/74 94 Room Air 97.9 11/19/17 12:00 97.2 100 20 112/77 100 97.2 11/19/17 08:00 98.1 98 10 128/77 94 Room Air 98.1 11/19/17 04:00 96.4 89 10 110/68 94 Room Air 96.4 11/19/17 00:00 98.2 80 12 119/75 91 Room Air 98.2 11/18/17 20:00 98.3 96 8 103/71 96 Room Air 98.3 I&O Intake and Output 11/18/17 11/19/17 19:00 07:00 Intake Total 260 ml 900 ml Balance 260 ml 900 ml Intake Oral 260 ml IV Total 900 ml # Voids 6 2 # Bowel Movements 2 Cardiovascular: RSR Respiratory: clear Abdomen: soft, distended, present bowel sounds Extremities: no cyanosis Laboratory Tests Test 11/19/17 05:00 White Blood Count 13.1 K/UL (4.8-10.8) H Red Blood Count 4.31 M/UL (4.20-5.40) Hemoglobin 12.5 G/DL (12.0-16.0) Hematocrit 39.3 % (37.0-47.0) Mean Corpuscular Volume 91 FL (80-99) Mean Corpuscular Hemoglobin 29.0 PG (27.0-31.0) Mean Corpuscular Hemoglobin Concent 31.8 G/DL (32.0-36.0) L Red Cell Distribution Width 15.1 % (11.6-14.8) H Platelet Count 184 K/UL (150-450) Mean Platelet Volume 7.7 FL (6.5-10.1) Neutrophils (%) (Auto) 70.9 % (45.0-75.0) Lymphocytes (%) (Auto) 18.0 % (20.0-45.0) L Monocytes (%) (Auto) 9.1 % (1.0-10.0) Eosinophils (%) (Auto) 1.5 % (0.0-3.0) Basophils (%) (Auto) 0.4 % (0.0-2.0) Sodium Level 136 MMOL/L (136-145) Potassium Level 3.1 MMOL/L (3.5-5.1) L Chloride Level 102 MMOL/L (98-107) Carbon Dioxide Level 23 MMOL/L (21-32) Anion Gap 11 mmol/L (5-15) Blood Urea Nitrogen 7 mg/dL (7-18) Creatinine 0.7 MG/DL (0.55-1.30) Estimat Glomerular Filtration Rate > 60 mL/min (>60) Glucose Level 82 MG/DL (74-106) Calcium Level 9.2 MG/DL (8.5-10.1) Plan Problems: (1) Intractable abdominal pain Assessment & Plan: 66F with abdominal pain. very complex medical and surgical history. now with complex CT findings of left pleural effusion, left lower lung mass, large mediastinal and periaortic lymph nodes, new liver lesions, and air around the liver. unable to tell if bowel loop (possible blind end from prior surgery) noted in right upper quadrant above liver or if abscess or if free air. exam not consistent with perforation and no significant free fluid noted on CT or area of perforation. contrast into distal bowel without leak. initial leukocytosis resolved. low grade persistent fevers. recent cough. unfortunately no clear explanation as to patients current condition. lung mass , effusion, new liver masses, and nodes very concerning for malignant process. Exam stable compared to prior exams (patient seen during last admission and known to me). will need much more extensive work up. I discussed these findings with patient. I explained possible need for urgent surgery but given history and complex surgical history we will monitor clinically first. if declines will proceed with surgery which is VERY high risk in her. if stable will continue with work up. patient and partner express understand and agree with plan. s/p thoracentesis 11/12. 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 did not have other access so right EJ line placed by myself. if fails will need central venous access. CT reviewed. Path reviewed Discussed with patient may have enough sample from thoracentesis to make pathological evaluation from cytology. if not will need CT guided biopsy wednesday -regular diet -monitor exam clinically -trend labs -iv abx -will follow with recs. thank you for this consultation. Wolf Quan Nov 19, 2017 16:24
--- NOTE | 2017-11-19 18:44 | Infectious Diseases Prog Note ---
Assessment/Plan Assessment/Plan ASSESSMENT: The patient is a 66-year-old female with, Low-grade fever. probable due to SBO ,resolved Leukocytosis, mild- recurrent- ?2ry to possible malignancy Probable small bowel obstruction Recent history of polymicrobial gram-negative bacteremia including Stenotrophomonas maltophilia and Enterobacter. History of Aggie esophagitis. History of C. difficile in the past. Air anterior to the liver , ? free intraperitoneal air ( Surg doubt perforation ) Lung and liver masses Ro Malignancy CT: Pleural-based mass at the left lung base / Moderate-sized left pleural effusion, left-sided pleural nodularity and retroperitoneal and paraspinal nodules/masses. Left inferior hilar mass lesion partially visualized. New low- attenuation liver lesion ( concerning for malignancy/metastatic disease ) Pl effusion SP ultrasound-guided thoracentesis, 960 cc ( m/l 2/2 mets, no evid of Empyema ) -exudate fluid: WBC 613 (n 6), pH 8, lguc 98, prot 4.6 (serum 8.4); cx stain: GRAM STAIN Final GRAM STAIN RESULT FEW WHITE BLOOD CELLS NO ORGANISMS SEEN cx negative prelime cytology report: malignant non-small cells in the pleural cavity. Crohn's disease. History of bowel obstruction x2 with lysis of adhesions in 2004. COPD. History of chronic pain syndrome, on morphine pump. CVA in 2004. Seizure disorder. PLAN: cont to monitor off abx -4/25 SP Zosyn #5 Monitor CBC and BMP. follow GI recommendations hem, surg f/u possible plan for CT guided bx lung mass Subjective Allergies: Coded Allergies: No Known Allergies (Verified , 05/21/06) Subjective afebrile leukocytosis improving/stable prelime cytology report: malignant non-small cells in the pleural cavity. Objective Vital Signs Last 24 Hour Vital Signs Date Time Temp Pulse Resp B/P (MAP) Pulse Ox O2 Delivery O2 Flow Rate FiO2 11/19/17 16:00 97.2 100 20 140/71 97 97.2 11/19/17 12:00 97.9 88 10 124/74 94 Room Air 97.9 11/19/17 12:00 97.2 100 20 112/77 100 97.2 11/19/17 08:00 98.1 98 10 128/77 94 Room Air 98.1 11/19/17 04:00 96.4 89 10 110/68 94 Room Air 96.4 4/27/18 00:00 98.2 80 12 119/75 91 Room Air 98.2 11/18/17 20:00 98.3 96 8 103/71 96 Room Air 98.3 Height (Feet): 5 Height (Inches): 6.00 Weight (Pounds): 129 Objective HEENT: anicteric Respiratory/Chest: normal breath sounds Cardiovascular: regular rhythm Abdomen: tender Laboratory Tests Test 11/19/17 05:00 White Blood Count 13.1 K/UL (4.8-10.8) H Red Blood Count 4.31 M/UL (4.20-5.40) Hemoglobin 12.5 G/DL (12.0-16.0) Hematocrit 39.3 % (37.0-47.0) Mean Corpuscular Volume 91 FL (80-99) Mean Corpuscular Hemoglobin 29.0 PG (27.0-31.0) Mean Corpuscular Hemoglobin Concent 31.8 G/DL (32.0-36.0) L Red Cell Distribution Width 15.1 % (11.6-14.8) H Platelet Count 184 K/UL (150-450) Mean Platelet Volume 7.7 FL (6.5-10.1) Neutrophils (%) (Auto) 70.9 % (45.0-75.0) Lymphocytes (%) (Auto) 18.0 % (20.0-45.0) L Monocytes (%) (Auto) 9.1 % (1.0-10.0) Eosinophils (%) (Auto) 1.5 % (0.0-3.0) Basophils (%) (Auto) 0.4 % (0.0-2.0) Sodium Level 136 MMOL/L (136-145) Potassium Level 3.1 MMOL/L (3.5-5.1) L Chloride Level 102 MMOL/L (98-107) Carbon Dioxide Level 23 MMOL/L (21-32) Anion Gap 11 mmol/L (5-15) Blood Urea Nitrogen 7 mg/dL (7-18) Creatinine 0.7 MG/DL (0.55-1.30) Estimat Glomerular Filtration Rate > 60 mL/min (>60) Glucose Level 82 MG/DL (74-106) Calcium Level 9.2 MG/DL (8.5-10.1) Current Medications Medications (Trade) Dose Ordered Sig/Vaibhav Route PRN Reason Start Time Stop Time Status Last Admin Dose Admin Acetaminophen (Tylenol) 650 mg Q4H PRN ORAL fever 11/11/17 15:30 12/11/17 15:29 Acetaminophen/ Hydrocodone Bitart ([place] 10/325) 1 tab Q4H PRN ORAL Pain Scale (3-5) 11/18/17 10:45 11/25/17 08:29 11/19/17 12:17 Al Hydroxide/Mg Hydroxide (Mylanta II) 30 ml Q6H PRN ORAL dyspepsia 11/11/17 15:30 12/11/17 15:29 Atorvastatin Calcium (Lipitor) 40 mg BEDTIME ORAL 11/11/17 21:00 12/11/17 20:59 11/18/17 20:50 Bupropion HCl (Wellbutrin) 100 mg DAILY ORAL 11/12/17 09:00 12/12/17 08:59 11/19/17 09:32 Chlorhexidine Gluconate (Leah-Hex 2%) 1 applic DAILY@2000 TOPIC 11/17/17 20:00 12/17/17 19:59 11/18/17 20:30 Dextrose (Dextrose 50%) 50 ml STAT PRN IV Hypoglycemia BS<60mg/dL 11/11/17 15:30 12/11/17 15:29 Dextrose/Sodium Chloride 1,000 ml @ 75 mls/hr [id number] IV 11/11/17 17:00 12/11/17 16:59 11/19/17 12:11 Diphenhydramine HCl (Benadryl) 25 mg Q6H PRN ORAL Itching/Pruritis 11/11/17 15:30 12/11/17 15:29 Duloxetine HCl (Cymbalta) 90 mg DAILY ORAL 11/16/17 09:00 12/12/17 08:59 11/19/17 09:32 Gabapentin (Neurontin) 300 mg THREE TIMES A DAY ORAL 11/12/17 10:00 12/12/17 09:59 11/19/17 16:25 Heparin Sodium (Porcine) (Heparin 5000 units/ml) 5,000 units EVERY 12 HOURS SUBQ 11/11/17 21:00 12/11/17 20:59 11/19/17 09:28 Hydromorphone HCl (Dilaudid) 0.5 mg Q4H PRN IVP PAIN SCALE 4-10 if unab 11/18/17 09:30 11/25/17 09:29 Levetiracetam (Keppra) 1,000 mg Q8H ORAL 11/16/17 08:00 12/16/17 07:59 11/19/17 16:25 Levothyroxine Sodium (Synthroid) 75 mcg ACBREAKFAST ORAL 11/12/17 06:30 12/12/17 06:29 11/19/17 05:53 Lorazepam (Ativan 2mg/ml 1ml) 2 mg Q6H PRN IV agitation 11/13/17 15:30 11/20/17 15:29 11/16/17 18:57 Methylnaltrexone [place] (Relistor) 12 mg DAILY SUBQ 11/12/17 10:15 12/12/17 10:14 11/19/17 09:31 Metoclopramide HCl (Reglan) 10 mg Q6H PRN IVP Unrelieved Severe Nausea 11/11/17 15:30 12/11/17 15:29 Nitroglycerin (Ntg) 0.4 mg Q5M X 3 DOSES PRN SL Prn Chest Pain 11/11/17 15:30 12/11/17 15:29 Ondansetron HCl (Zofran) 4 mg Q6H PRN IVP Nausea & Vomiting 11/11/17 15:30 12/11/17 15:29 11/12/17 12:37 Pantoprazole (Protonix) 40 mg DAILY ORAL 11/15/17 09:00 12/15/17 08:59 11/19/17 09:31 Polyethylene Glycol (Miralax) 17 gm HSPRN PRN ORAL Constipation 11/11/17 15:30 12/11/17 15:29 Promethazine HCl 25 mg/Sodium Chloride 56 ml @ 110 mls/hr Q6H PRN IV Refractory N/V 11/11/17 15:30 12/11/17 15:29 Simethicone (Mylicon) 80 mg QIDPRN PRN ORAL gas 11/12/17 10:00 12/12/17 09:59 Theophylline (Erwin-Dur) 100 mg Q12HR ORAL 11/11/17 21:00 12/11/17 20:59 11/19/17 09:32 Topiramate (Topamax) 25 mg EVERY 12 HOURS ORAL 11/11/17 21:00 12/11/17 20:59 11/19/17 09:00 Trazodone HCl (Desyrel) 200 mg BEDTIME ORAL 11/11/17 21:00 12/11/17 20:59 11/18/17 20:49 Zolpidem Tartrate (Ambien) 5 mg QHS ORAL 11/13/17 21:00 11/20/17 20:59 11/17/17 21:33 Kathleen Lafleur M.D. Nov 19, 2017 18:44
[2017-11-19 20:00] VITALS: BP 130/77
[2017-11-19] MEDS: Zolpidem 5mg tab ORAL SCH (20:45)
[2017-11-19] MEDS: Dyna-Hex 2% Top Sol 2oz TOPIC SCH (20:45)
[2017-11-19] MEDS: TraZODone 100mg tab ORAL SCH (20:46)
[2017-11-19] MEDS: Atorvastatin 20mg tab ORAL SCH (20:46)
[2017-11-20] VITALS: BP 115/66
[2017-11-20] MEDS: D5 1/2NS 1,000 ML IV SCH ×2 (03:27→15:04)
[2017-11-20 04:00] VITALS: BP 124/73
--- NOTE | 2017-11-20 07:28 | General Progress Note ---
Assessment/Plan Problem List: (1) History of exploratory laparotomy ICD Codes: Z98.89 - Other specified postprocedural states SNOMED: 55739073, 89500797, 605862521 (2) Smoker ICD Codes: F17.200 - Nicotine dependence, unspecified, uncomplicated SNOMED: 55437562 (3) Malignant pleural effusion ICD Codes: J91.0 - Malignant pleural effusion SNOMED: 00924421 (4) Metastatic cancer ICD Codes: C79.9 - Secondary malignant neoplasm of unspecified site SNOMED: 153313760 (5) Lung mass ICD Codes: R91.8 - Other nonspecific abnormal finding of lung field SNOMED: 596870805 (6) Crohns disease ICD Codes: K50.90 - Crohns disease SNOMED: 93773881 Assessment/Plan fu labs fu oncology pain control Subjective ROS Limited/Unobtainable: Yes Allergies: Coded Allergies: No Known Allergies (Verified , 05/21/06) Subjective no event Objective Last 24 Hour Vital Signs Date Time Temp Pulse Resp B/P (MAP) Pulse Ox O2 Delivery O2 Flow Rate FiO2 11/20/17 04:00 98.0 105 18 124/73 100 Room Air 98.0 11/20/17 00:00 97.4 108 17 115/66 93 Room Air 97.4 11/19/17 20:00 98.4 110 20 130/77 92 Room Air 98.4 11/19/17 16:00 97.2 100 20 140/71 97 97.2 11/19/17 12:00 97.9 88 10 124/74 94 Room Air 97.9 11/19/17 12:00 97.2 100 20 112/77 100 97.2 11/19/17 08:00 98.1 98 10 128/77 94 Room Air 98.1 Intake and Output 11/19/17 11/20/17 19:00 07:00 Intake Total 375 ml 900 ml Balance 375 ml 900 ml Intake Oral 300 ml IV Total 75 ml 900 ml # Voids 3 3 Height (Feet): 5 Height (Inches): 6.00 Weight (Pounds): 129 General Appearance: no apparent distress EENT: normal ENT inspection Neck: supple Cardiovascular: normal rate Respiratory/Chest: decreased breath sounds Abdomen: normal bowel sounds, non tender, soft Extremities: non-tender LUIS POTTS Nov 20, 2017 07:28
[2017-11-20 08:00] VITALS: BP 124/79
[2017-11-20 08:06] LABS: BASOPHILS % (AUTO) 0.4 % (0.0-2.0); EOSINOPHILS % (AUTO) 1.1 % (0.0-3.0); HEMATOCRIT 38.2 % (37.0-47.0); HEMOGLOBIN 12.5 G/DL (12.0-16.0); MEAN CORPUSCULAR VOLUME 91 FL (80-99); MONOCYTES % (AUTO) 6.4 % (1.0-10.0); NEUTROPHILS % (AUTO) 75.2 % (45.0-75.0); PLATELET COUNT 192 K/UL (150-450); RED BLOOD COUNT 4.19 M/UL (4.20-5.40); RED CELL DISTRIBUTION WIDTH 14.9 % (11.6-14.8); WHITE BLOOD COUNT 14.8 K/UL (4.8-10.8)
[2017-11-20 08:21] LABS: ANION GAP 9 mmol/L (5-15); BLOOD UREA NITROGEN 7 mg/dL (7-18); CALCIUM 9.2 MG/DL (8.5-10.1); CARBON DIOXIDE 25 MMOL/L (21-32); CHLORIDE 102 MMOL/L (98-107); CREATININE 0.7 MG/DL (0.55-1.30); SODIUM 136 MMOL/L (136-145)
[2017-11-20] MEDS: DULoxetine 30mg cap ORAL SCH (08:56)
[2017-11-20] MEDS: Theophylline ER 100mg ORAL SCH ×2 (08:56→21:53)
[2017-11-20] MEDS: Topiramate 25mg tab ORAL SCH ×2 (08:57→21:53)
[2017-11-20] MEDS: Heparin 5000 units/ml inj SUBQ SCH ×2 (09:00→21:57)
[2017-11-20] MEDS: Relistor 12mg/0.6ml Vial SUBQ SCH (09:16)
--- NOTE | 2017-11-20 09:22 | General Progress Note ---
Assessment/Plan Problem List: (1) Crohn's disease ICD Codes: K50.90 - Crohn's disease SNOMED: 45879368 Qualifiers: Qualified Codes: K50.919 - Crohn's disease, unspecified, with unspecified complications (2) Opioid dependence ICD Codes: F11.20 - Opioid dependence SNOMED: 59360973 (3) Intractable abdominal pain ICD Codes: R10.9 - Unspecified abdominal pain SNOMED: 46350884, 239183806 (4) COPD (chronic obstructive pulmonary disease) ICD Codes: J44.9 - Chronic obstructive pulmonary disease SNOMED: 83865679 (5) Shortness of breath (6) SOB (shortness of breath) ICD Codes: R06.02 - Shortness of breath SNOMED: 034161442 (7) UTI (urinary tract infection) ICD Codes: N39.0 - Urinary tract infection, site not specified SNOMED: 44485928 (8) Lung mass ICD Codes: R91.8 - Other nonspecific abnormal finding of lung field SNOMED: 591141361 Status: unchanged Assessment/Plan ot pt diet pain control sx eval cbc bmp am heme f/u dc plan if clear Subjective Constitutional: Reports: weakness Allergies: Coded Allergies: No Known Allergies (Verified , 05/21/06) All Systems: reviewed and negative except above Subjective sleepy calm in bed Objective Last 24 Hour Vital Signs Date Time Temp Pulse Resp B/P (MAP) Pulse Ox O2 Delivery O2 Flow Rate FiO2 11/20/17 08:00 98.6 109 18 124/79 100 Room Air 98.6 11/20/17 04:00 98.0 105 18 124/73 100 Room Air 98.0 11/20/17 00:00 97.4 108 17 115/66 93 Room Air 97.4 11/19/17 20:00 98.4 110 20 130/77 92 Room Air 98.4 11/19/17 16:00 97.2 100 20 140/71 97 97.2 11/19/17 12:00 97.9 88 10 124/74 94 Room Air 97.9 11/19/17 12:00 97.2 100 20 112/77 100 97.2 Intake and Output 11/19/17 11/20/17 19:00 07:00 Intake Total 375 ml 900 ml Balance 375 ml 900 ml Intake Oral 300 ml IV Total 75 ml 900 ml # Voids 3 3 Laboratory Tests 11/20/17 06:03: White Blood Count 14.8H, Red Blood Count 4.19L, Hemoglobin 12.5, Hematocrit 38.2 , Mean Corpuscular Volume 91, Mean Corpuscular Hemoglobin 29.7, Mean Corpuscular Hemoglobin Concent 32.7, Red Cell Distribution Width 14.9H, Platelet Count 192, Mean Platelet Volume 6.8, Neutrophils (%) (Auto) 75.2H, Lymphocytes (%) (Auto) 17.0L, Monocytes (%) (Auto) 6.4, Eosinophils (%) (Auto) 1.1, Basophils (%) (Auto) 0.4, Sodium Level 136, Potassium Level 3.0L, Chloride Level 102, Carbon Dioxide Level 25, Anion Gap 9, Blood Urea Nitrogen 7, Creatinine 0.7, Estimat Glomerular Filtration Rate > 60, Glucose Level 95, Calcium Level 9.2 Height (Feet): 5 Height (Inches): 6.00 Weight (Pounds): 129 General Appearance: lethargic EENT: normal ENT inspection Neck: normal alignment Cardiovascular: normal peripheral pulses, normal rate, regular rhythm Respiratory/Chest: chest wall non-tender, decreased breath sounds Abdomen: normal bowel sounds, soft Extremities: normal inspection Edema: no edema noted Arm (L), no edema noted Arm (R), no edema noted Leg (L), no edema noted Leg (R), no edema noted Pedal (L), no edema noted Pedal (R), no edema noted Generalized Neurologic: motor weakness Skin: normal pigmentation, warm/dry BAYRON BENEDICT Nov 20, 2017 09:22
--- NOTE | 2017-11-20 11:24 | Infectious Diseases Prog Note ---
Assessment/Plan Assessment/Plan ASSESSMENT: The patient is a 66-year-old female with, Low-grade fever. probable due to SBO ,resolved Leukocytosis, mild- recurrent- ?2ry to possible malignancy Probable small bowel obstruction Recent history of polymicrobial gram-negative bacteremia including Stenotrophomonas maltophilia and Enterobacter. History of Aggie esophagitis. History of C. difficile in the past. Air anterior to the liver , ? free intraperitoneal air ( Surg doubt perforation ) Lung and liver masses Ro Malignancy CT: Pleural-based mass at the left lung base / Moderate-sized left pleural effusion, left-sided pleural nodularity and retroperitoneal and paraspinal nodules/masses. Left inferior hilar mass lesion partially visualized. New low- attenuation liver lesion ( concerning for malignancy/metastatic disease ) Pl effusion SP ultrasound-guided thoracentesis, 960 cc ( m/l 2/2 mets, no evid of Empyema ) -exudate fluid: WBC 613 (n 6), pH 8, lguc 98, prot 4.6 (serum 8.4); cx stain: GRAM STAIN Final GRAM STAIN RESULT FEW WHITE BLOOD CELLS NO ORGANISMS SEEN cx negative prelime cytology report: malignant non-small cells in the pleural cavity. Crohn's disease. History of bowel obstruction x2 with lysis of adhesions in 2004. COPD. History of chronic pain syndrome, on morphine pump. CVA in 2004. Seizure disorder. PLAN: cont to monitor off abx -4/25 SP Zosyn #5 Monitor CBC and BMP. follow GI recommendations hem, surg f/u possible plan for CT guided bx lung mass Subjective Constitutional: Denies: no symptoms, fever, chills, fatigue, anorexia, drenching sweats, other Allergies: Coded Allergies: No Known Allergies (Verified , 05/21/06) Objective Vital Signs Last 24 Hour Vital Signs Date Time Temp Pulse Resp B/P (MAP) Pulse Ox O2 Delivery O2 Flow Rate FiO2 11/20/17 08:00 98.6 109 18 124/79 100 Room Air 98.6 11/20/17 04:00 98.0 105 18 124/73 100 Room Air 98.0 11/20/17 00:00 97.4 108 17 115/66 93 Room Air 97.4 11/19/17 20:00 98.4 110 20 130/77 92 Room Air 98.4 11/19/17 16:00 97.2 100 20 140/71 97 97.2 11/19/17 12:00 97.9 88 10 124/74 94 Room Air 97.9 11/19/17 12:00 97.2 100 20 112/77 100 97.2 Height (Feet): 5 Height (Inches): 6.00 Weight (Pounds): 129 HEENT: anicteric Respiratory/Chest: no accessory muscle use Cardiovascular: regularly irregular Abdomen: non distended Laboratory Tests Test 11/20/17 06:03 White Blood Count 14.8 K/UL (4.8-10.8) H Red Blood Count 4.19 M/UL (4.20-5.40) L Hemoglobin 12.5 G/DL (12.0-16.0) Hematocrit 38.2 % (37.0-47.0) Mean Corpuscular Volume 91 FL (80-99) Mean Corpuscular Hemoglobin 29.7 PG (27.0-31.0) Mean Corpuscular Hemoglobin Concent 32.7 G/DL (32.0-36.0) Red Cell Distribution Width 14.9 % (11.6-14.8) H Platelet Count 192 K/UL (150-450) Mean Platelet Volume 6.8 FL (6.5-10.1) Neutrophils (%) (Auto) 75.2 % (45.0-75.0) H Lymphocytes (%) (Auto) 17.0 % (20.0-45.0) L Monocytes (%) (Auto) 6.4 % (1.0-10.0) Eosinophils (%) (Auto) 1.1 % (0.0-3.0) Basophils (%) (Auto) 0.4 % (0.0-2.0) Sodium Level 136 MMOL/L (136-145) Potassium Level 3.0 MMOL/L (3.5-5.1) L Chloride Level 102 MMOL/L (98-107) Carbon Dioxide Level 25 MMOL/L (21-32) Anion Gap 9 mmol/L (5-15) Blood Urea Nitrogen 7 mg/dL (7-18) Creatinine 0.7 MG/DL (0.55-1.30) Estimat Glomerular Filtration Rate > 60 mL/min (>60) Glucose Level 95 MG/DL (74-106) Calcium Level 9.2 MG/DL (8.5-10.1) Current Medications Medications (Trade) Dose Ordered Sig/Vaibhav Route PRN Reason Start Time Stop Time Status Last Admin Dose Admin Acetaminophen (Tylenol) 650 mg Q4H PRN ORAL fever 11/11/17 15:30 12/11/17 15:29 Acetaminophen/ Hydrocodone Bitart ([place] 10/325) 1 tab Q4H PRN ORAL Pain Scale (3-5) 11/18/17 10:45 11/25/17 08:29 11/19/17 12:17 Al Hydroxide/Mg Hydroxide (Mylanta II) 30 ml Q6H PRN ORAL dyspepsia 11/11/17 15:30 12/11/17 15:29 Atorvastatin Calcium (Lipitor) 40 mg BEDTIME ORAL 11/11/17 21:00 12/11/17 20:59 11/19/17 20:46 Bupropion HCl (Wellbutrin) 100 mg DAILY ORAL 11/12/17 09:00 12/12/17 08:59 11/20/17 08:56 Chlorhexidine Gluconate (Leah-Hex 2%) 1 applic DAILY@2000 TOPIC 11/17/17 20:00 12/17/17 19:59 11/19/17 20:45 Dextrose (Dextrose 50%) 50 ml STAT PRN IV Hypoglycemia BS<60mg/dL 11/11/17 15:30 12/11/17 15:29 Dextrose/Sodium Chloride 1,000 ml @ 75 mls/hr [id number] IV 11/11/17 17:00 12/11/17 16:59 11/20/17 03:27 Diphenhydramine HCl (Benadryl) 25 mg Q6H PRN ORAL Itching/Pruritis 11/11/17 15:30 12/11/17 15:29 Duloxetine HCl (Cymbalta) 90 mg DAILY ORAL 11/16/17 09:00 12/12/17 08:59 11/20/17 08:56 Gabapentin (Neurontin) 300 mg THREE TIMES A DAY ORAL 11/12/17 10:00 12/12/17 09:59 11/20/17 08:57 Heparin Sodium (Porcine) (Heparin 5000 units/ml) 5,000 units EVERY 12 HOURS SUBQ 11/11/17 21:00 12/11/17 20:59 11/20/17 09:00 Hydromorphone HCl (Dilaudid) 0.5 mg Q4H PRN IVP PAIN SCALE 4-10 if unab 11/18/17 09:30 11/25/17 09:29 Levetiracetam (Keppra) 1,000 mg Q8H ORAL 11/16/17 08:00 12/16/17 07:59 11/20/17 08:57 Levothyroxine Sodium (Synthroid) 75 mcg ACBREAKFAST ORAL 11/12/17 06:30 12/12/17 06:29 11/20/17 06:00 Lorazepam (Ativan 2mg/ml 1ml) 2 mg Q6H PRN IV agitation 11/13/17 15:30 11/20/17 15:29 11/16/17 18:57 Methylnaltrexone [place] (Relistor) 12 mg DAILY SUBQ 11/12/17 10:15 12/12/17 10:14 11/20/17 09:16 Metoclopramide HCl (Reglan) 10 mg Q6H PRN IVP Unrelieved Severe Nausea 11/11/17 15:30 12/11/17 15:29 Nitroglycerin (Ntg) 0.4 mg Q5M X 3 DOSES PRN SL Prn Chest Pain 11/11/17 15:30 12/11/17 15:29 Ondansetron HCl (Zofran) 4 mg Q6H PRN IVP Nausea & Vomiting 11/11/17 15:30 12/11/17 15:29 11/12/17 12:37 Pantoprazole (Protonix) 40 mg DAILY ORAL 11/15/17 09:00 12/15/17 08:59 11/20/17 08:57 Polyethylene Glycol (Miralax) 17 gm HSPRN PRN ORAL Constipation 11/11/17 15:30 12/11/17 15:29 Promethazine HCl 25 mg/Sodium Chloride 56 ml @ 110 mls/hr Q6H PRN IV Refractory N/V 11/11/17 15:30 12/11/17 15:29 Simethicone (Mylicon) 80 mg QIDPRN PRN ORAL gas 11/12/17 10:00 12/12/17 09:59 Theophylline (Erwin-Dur) 100 mg Q12HR ORAL 11/11/17 21:00 12/11/17 20:59 11/20/17 08:56 Topiramate (Topamax) 25 mg EVERY 12 HOURS ORAL 11/11/17 21:00 12/11/17 20:59 11/20/17 08:57 Trazodone HCl (Desyrel) 200 mg BEDTIME ORAL 11/11/17 21:00 12/11/17 20:59 11/19/17 20:46 Zolpidem Tartrate (Ambien) 5 mg QHS ORAL 11/13/17 21:00 11/20/17 20:59 11/19/17 20:45 Jose Salinas MD Nov 20, 2017 11:24
[2017-11-20 12:00] VITALS: BP 127/81
--- NOTE | 2017-11-20 12:44 | General Surgery Progress Note ---
General Surgery-Progress Note Subjective Additional Comments doing well. no acute events. wants to go home soon. no n/v/f/c. leukocytosis 14k today. Objective Last 24 Hour Vital Signs Date Time Temp Pulse Resp B/P (MAP) Pulse Ox O2 Delivery O2 Flow Rate FiO2 11/20/17 08:00 98.6 109 18 124/79 100 Room Air 98.6 11/20/17 04:00 98.0 105 18 124/73 100 Room Air 98.0 11/20/17 00:00 97.4 108 17 115/66 93 Room Air 97.4 11/19/17 20:00 98.4 110 20 130/77 92 Room Air 98.4 11/19/17 16:00 97.2 100 20 140/71 97 97.2 I&O Intake and Output 11/19/17 11/20/17 19:00 07:00 Intake Total 375 ml 900 ml Balance 375 ml 900 ml Intake Oral 300 ml IV Total 75 ml 900 ml # Voids 3 3 Cardiovascular: RSR Respiratory: clear Abdomen: soft, distended, non-tender, present bowel sounds Extremities: no cyanosis Laboratory Tests Test 11/20/17 06:03 White Blood Count 14.8 K/UL (4.8-10.8) H Red Blood Count 4.19 M/UL (4.20-5.40) L Hemoglobin 12.5 G/DL (12.0-16.0) Hematocrit 38.2 % (37.0-47.0) Mean Corpuscular Volume 91 FL (80-99) Mean Corpuscular Hemoglobin 29.7 PG (27.0-31.0) Mean Corpuscular Hemoglobin Concent 32.7 G/DL (32.0-36.0) Red Cell Distribution Width 14.9 % (11.6-14.8) H Platelet Count 192 K/UL (150-450) Mean Platelet Volume 6.8 FL (6.5-10.1) Neutrophils (%) (Auto) 75.2 % (45.0-75.0) H Lymphocytes (%) (Auto) 17.0 % (20.0-45.0) L Monocytes (%) (Auto) 6.4 % (1.0-10.0) Eosinophils (%) (Auto) 1.1 % (0.0-3.0) Basophils (%) (Auto) 0.4 % (0.0-2.0) Sodium Level 136 MMOL/L (136-145) Potassium Level 3.0 MMOL/L (3.5-5.1) L Chloride Level 102 MMOL/L (98-107) Carbon Dioxide Level 25 MMOL/L (21-32) Anion Gap 9 mmol/L (5-15) Blood Urea Nitrogen 7 mg/dL (7-18) Creatinine 0.7 MG/DL (0.55-1.30) Estimat Glomerular Filtration Rate > 60 mL/min (>60) Glucose Level 95 MG/DL (74-106) Calcium Level 9.2 MG/DL (8.5-10.1) Plan Problems: (1) Intractable abdominal pain Assessment & Plan: 66F with abdominal pain. very complex medical and surgical history. now with complex CT findings of left pleural effusion, left lower lung mass, large mediastinal and periaortic lymph nodes, new liver lesions, and air around the liver. unable to tell if bowel loop (possible blind end from prior surgery) noted in right upper quadrant above liver or if abscess or if free air. exam not consistent with perforation and no significant free fluid noted on CT or area of perforation. contrast into distal bowel without leak. initial leukocytosis resolved. low grade persistent fevers. recent cough. unfortunately no clear explanation as to patients current condition. lung mass , effusion, new liver masses, and nodes very concerning for malignant process. Exam stable compared to prior exams (patient seen during last admission and known to me). will need much more extensive work up. I discussed these findings with patient. I explained possible need for urgent surgery but given history and complex surgical history we will monitor clinically first. if declines will proceed with surgery which is VERY high risk in her. if stable will continue with work up. patient and partner express understand and agree with plan. s/p thoracentesis 11/12. malignant non small cell cancer CT reviewed. Path reviewed Discussed with patient may have enough sample from thoracentesis to make pathological evaluation from cytology. if not will need CT guided biopsy wednesday -regular diet -monitor exam clinically -trend labs -iv abx -will follow with recs. thank you for this consultation. Wolf Quan Nov 20, 2017 12:44
[2017-11-20] MEDS: HYDROcodone/Acetamin 10/325 tab ORAL PRN ×2 (14:53→22:00)
[2017-11-20 16:00] VITALS: BP 129/90
[2017-11-20 20:00] VITALS: BP 103/73
[2017-11-20] MEDS: Dyna-Hex 2% Top Sol 2oz TOPIC SCH (20:00)
[2017-11-20] MEDS ORDERED: D5 1/2NS 1000ml IV ONE ×2 (20:37→20:53)
[2017-11-20] MEDS ORDERED: NS 275ml ONE (20:53)
[2017-11-20] MEDS ORDERED: Tubing IV Secondary IV ONE (20:53)
[2017-11-20] MEDS: TraZODone 100mg tab ORAL SCH (21:00)
[2017-11-20] MEDS: Atorvastatin 20mg tab ORAL SCH (21:53)
--- NOTE | 2017-11-20 22:10 | General Progress Note ---
Assessment/Plan Assessment/Plan IMPRESSION: 1. Left lower lobe lung mass. 2. Left inferior hilar mass. 3. Left pleural base lung mass. 4. Left pleural effusion. 5. Retroperitoneal lymphadenopathy. 6. Multiple low-attenuation liver lesions. 7. Crohn disease. 8. Opioid dependence. 9. Chronic obstructive pulmonary disease. 10. History of smoking. 11. Emphysema. 12. Perianal abscess. 13. Intractable abdominal pain. 14. Status post morphine pump placement. 15. Depression. 16. Psychosis. 17. Seizure disorder. 18. Radiculopathy of lumbar region. 19. Abdominal pain. 20. Nausea and vomiting. 21. Status post exploratory laparotomy. 22. Pneumoperitoneum. 23. Inflammatory bowel disease. 24. History of elevated CEA. 25. History of lower gastrointestinal bleed. 26. Chronic pain syndrome. 27. History of small bowel obstruction. 28. Status post laparotomy x2. 29. Failure to thrive. 30. Leukocytosis. RECOMMENDATIONS: 1. Watch count. 2. Watch coagulopathy. 3. Paracentesis with cytology. 4. Pulmonary evaluation/followup. 5. Mediastinoscopy versus CT-guided lung biopsy. 6. The patient needs tissue diagnosis. 7. ID followup. 8. Pain control. 9. Psychiatry evaluation. 10. Skin care. 11. Nutrition. 12. Continue current treatment. 13. Discussed with staff. 14. Close followup Subjective Date patient seen: Nov 19, 2017 Constitutional: Denies: no symptoms, chills, diaphoresis, fever, malaise, weakness, other HEENT: Denies: no symptoms, eye pain, blurred vision, tearing, double vision, ear pain, ear discharge, nose pain, nose congestion, throat pain, throat swelling, mouth pain, mouth swelling, other Cardiovascular: Denies: no symptoms, chest pain, edema, irregular heart rate, lightheadedness, palpitations, syncope, other Respiratory: Denies: no symptoms, cough, orthopnea, shortness of breath, SOB with excertion, SOB at rest, sputum, stridor, wheezing, other Gastrointestinal/Abdominal: Denies: no symptoms, abdomen distended, abdominal pain, black stools, tarry stools, blood in stool, constipated, diarrhea, difficulty swallowing, nausea, poor appetite, poor fluid intake, rectal bleeding , vomiting, other Genitourinary: Denies: no symptoms, burning, discharge, frequency, flank pain, hematuria, incontinence, pain, urgency, other Neurologic/Psychiatric: Denies: no symptoms, anxiety, depressed, emotional problems, headache, numbness, paresthesia, pre-existing deficit, seizure, tingling, tremors, weakness, other Allergies: Coded Allergies: No Known Allergies (Verified , 05/21/06) Subjective Pain management. Tachycardia. No fever. Objective Last 24 Hour Vital Signs Date Time Temp Pulse Resp B/P (MAP) Pulse Ox O2 Delivery O2 Flow Rate FiO2 11/20/17 20:00 97.7 113 16 103/73 93 Room Air 97.7 11/20/17 16:00 98.8 114 19 129/90 100 Room Air 98.8 11/20/17 15:52 98.8 11/20/17 14:53 97.8 11/20/17 12:00 97.8 99 19 127/81 99 Room Air 97.8 11/20/17 08:00 98.6 109 18 124/79 100 Room Air 98.6 11/20/17 04:00 98.0 105 18 124/73 100 Room Air 98.0 11/20/17 00:00 97.4 108 17 115/66 93 Room Air 97.4 Intake and Output 11/19/17 11/20/17 19:00 07:00 Intake Total 375 ml 900 ml Balance 375 ml 900 ml Intake Oral 300 ml IV Total 75 ml 900 ml # Voids 3 3 Laboratory Tests 11/20/17 06:03: White Blood Count 14.8H, Red Blood Count 4.19L, Hemoglobin 12.5, Hematocrit 38.2 , Mean Corpuscular Volume 91, Mean Corpuscular Hemoglobin 29.7, Mean Corpuscular Hemoglobin Concent 32.7, Red Cell Distribution Width 14.9H, Platelet Count 192, Mean Platelet Volume 6.8, Neutrophils (%) (Auto) 75.2H, Lymphocytes (%) (Auto) 17.0L, Monocytes (%) (Auto) 6.4, Eosinophils (%) (Auto) 1.1, Basophils (%) (Auto) 0.4, Sodium Level 136, Potassium Level 3.0L, Chloride Level 102, Carbon Dioxide Level 25, Anion Gap 9, Blood Urea Nitrogen 7, Creatinine 0.7, Estimat Glomerular Filtration Rate > 60, Glucose Level 95, Calcium Level 9.2 Height (Feet): 5 Height (Inches): 6.00 Weight (Pounds): 129 General Appearance: lethargic Cardiovascular: tachycardia Connor Bains MD Nov 20, 2017 22:10
--- NOTE | 2017-11-20 22:30 | Pulmonology Progress Note ---
Assessment/Plan Problems: (1) Metastatic cancer (2) Malignant pleural effusion (3) Chronic pain disorder (4) IBD (inflammatory bowel disease) (5) Interstitial lung disease (6) COPD (chronic obstructive pulmonary disease) Assessment/Plan symptomatic treatment d/w pathologist, there are malignant non-small cells in the pleural cavity. it seems metastatic, continue current symptomatic treatment oncology on the case already pain management dc planning with comfort care. Subjective ROS Limited/Unobtainable: No Allergies: Coded Allergies: No Known Allergies (Verified , 05/21/06) Objective Last 24 Hour Vital Signs Date Time Temp Pulse Resp B/P (MAP) Pulse Ox O2 Delivery O2 Flow Rate FiO2 11/20/17 20:00 97.7 113 16 103/73 93 Room Air 97.7 11/20/17 16:00 98.8 114 19 129/90 100 Room Air 98.8 11/20/17 15:52 98.8 11/20/17 14:53 97.8 11/20/17 12:00 97.8 99 19 127/81 99 Room Air 97.8 11/20/17 08:00 98.6 109 18 124/79 100 Room Air 98.6 11/20/17 04:00 98.0 105 18 124/73 100 Room Air 98.0 11/20/17 00:00 97.4 108 17 115/66 93 Room Air 97.4 Intake and Output 11/19/17 11/20/17 19:00 07:00 Intake Total 375 ml 900 ml Balance 375 ml 900 ml Intake Oral 300 ml IV Total 75 ml 900 ml # Voids 3 3 Objective General Appearance: WD/WN HEENT: normocephalic, atraumatic Respiratory/Chest: chest wall non-tender, lungs clear Cardiovascular: normal peripheral pulses, normal rate, regular rhythm Abdomen: normal bowel sounds, soft, non tender, no organomegaly, non distended Extremities: no cyanosis, no clubbing, no edema Skin: no rash, no lesions Neurologic/Psychiatric: millwright II-XII grossly normal Laboratory Tests 11/20/17 06:03: White Blood Count 14.8H, Red Blood Count 4.19L, Hemoglobin 12.5, Hematocrit 38.2 , Mean Corpuscular Volume 91, Mean Corpuscular Hemoglobin 29.7, Mean Corpuscular Hemoglobin Concent 32.7, Red Cell Distribution Width 14.9H, Platelet Count 192, Mean Platelet Volume 6.8, Neutrophils (%) (Auto) 75.2H, Lymphocytes (%) (Auto) 17.0L, Monocytes (%) (Auto) 6.4, Eosinophils (%) (Auto) 1.1, Basophils (%) (Auto) 0.4, Sodium Level 136, Potassium Level 3.0L, Chloride Level 102, Carbon Dioxide Level 25, Anion Gap 9, Blood Urea Nitrogen 7, Creatinine 0.7, Estimat Glomerular Filtration Rate > 60, Glucose Level 95, Calcium Level 9.2 Current Medications Medications (Trade) Dose Ordered Sig/Vaibhav Route PRN Reason Start Time Stop Time Status Last Admin Dose Admin Acetaminophen (Tylenol) 650 mg Q4H PRN ORAL fever 11/11/17 15:30 12/11/17 15:29 Acetaminophen/ Hydrocodone Bitart ([place] 10/325) 1 tab Q4H PRN ORAL Pain Scale (3-5) 11/18/17 10:45 11/25/17 08:29 11/20/17 22:00 Al Hydroxide/Mg Hydroxide (Mylanta II) 30 ml Q6H PRN ORAL dyspepsia 11/11/17 15:30 12/11/17 15:29 Atorvastatin Calcium (Lipitor) 40 mg BEDTIME ORAL 11/11/17 21:00 12/11/17 20:59 11/20/17 21:53 Bupropion HCl (Wellbutrin) 100 mg DAILY ORAL 11/12/17 09:00 12/12/17 08:59 11/20/17 08:56 Chlorhexidine Gluconate (Leah-Hex 2%) 1 applic DAILY@2000 TOPIC 11/17/17 20:00 12/17/17 19:59 11/20/17 20:00 Dextrose (Dextrose 50%) 50 ml STAT PRN IV Hypoglycemia BS<60mg/dL 11/11/17 15:30 12/11/17 15:29 Dextrose/Sodium Chloride 1,000 ml @ 75 mls/hr [id number] IV 11/11/17 17:00 12/11/17 16:59 11/20/17 15:04 Diphenhydramine HCl (Benadryl) 25 mg Q6H PRN ORAL Itching/Pruritis 11/11/17 15:30 12/11/17 15:29 Duloxetine HCl (Cymbalta) 90 mg DAILY ORAL 11/16/17 09:00 12/12/17 08:59 11/20/17 08:56 Gabapentin (Neurontin) 300 mg THREE TIMES A DAY ORAL 11/12/17 10:00 12/12/17 09:59 11/20/17 17:47 Heparin Sodium (Porcine) (Heparin 5000 units/ml) 5,000 units EVERY 12 HOURS SUBQ 11/11/17 21:00 12/11/17 20:59 11/20/17 21:57 Hydromorphone HCl (Dilaudid) 0.5 mg Q4H PRN IVP PAIN SCALE 4-10 if unab 11/18/17 09:30 11/25/17 09:29 Levetiracetam (Keppra) 1,000 mg Q8H ORAL 11/16/17 08:00 12/16/17 07:59 11/20/17 17:47 Levothyroxine Sodium (Synthroid) 75 mcg ACBREAKFAST ORAL 11/12/17 06:30 12/12/17 06:29 11/20/17 06:00 Methylnaltrexone [place] (Relistor) 12 mg DAILY SUBQ 11/12/17 10:15 12/12/17 10:14 11/20/17 09:16 Metoclopramide HCl (Reglan) 10 mg Q6H PRN IVP Unrelieved Severe Nausea 11/11/17 15:30 12/11/17 15:29 Nitroglycerin (Ntg) 0.4 mg Q5M X 3 DOSES PRN SL Prn Chest Pain 11/11/17 15:30 12/11/17 15:29 Ondansetron HCl (Zofran) 4 mg Q6H PRN IVP Nausea & Vomiting 11/11/17 15:30 12/11/17 15:29 11/12/17 12:37 Pantoprazole (Protonix) 40 mg DAILY ORAL 11/15/17 09:00 12/15/17 08:59 11/20/17 08:57 Polyethylene Glycol (Miralax) 17 gm HSPRN PRN ORAL Constipation 11/11/17 15:30 12/11/17 15:29 Promethazine HCl 25 mg/Sodium Chloride 56 ml @ 110 mls/hr Q6H PRN IV Refractory N/V 11/11/17 15:30 12/11/17 15:29 Simethicone (Mylicon) 80 mg QIDPRN PRN ORAL gas 11/12/17 10:00 12/12/17 09:59 Theophylline ([place]-Dur) 100 mg Q12HR ORAL 11/11/17 21:00 12/11/17 20:59 11/20/17 21:53 Topiramate (Topamax) 25 mg EVERY 12 HOURS ORAL 11/11/17 21:00 12/11/17 20:59 11/20/17 21:53 Trazodone HCl (Desyrel) 200 mg BEDTIME ORAL 11/11/17 21:00 12/11/17 20:59 11/19/17 20:46 Rob Wagner MD Nov 20, 2017 22:30
[2017-11-21] VITALS (8 sets, daily range): BP systolic 92–139; BP diastolic 56–88
--- NOTE | 2017-11-21 01:45 | Consultation ---
DATE OF CONSULTATION: 11/20/2017 HISTORY OF PRESENT ILLNESS: The patient is a 66-year-old female patient with intractable abdominal pain. This patient is confused and disorganized. Mood labile. She has got no logical plan for own self-care. Feelings of helplessness, hopelessness, low energy, poor appetite, and lost of interest in activity. She has high levels of anxiety and she also has some mood lability as well. That is why, daily psychiatric consultation is requested for this patient by her attending physician. MENTAL STATUS EXAMINATION: This is a 66-year-old female. Appearance disheveled. Attitude, irritable and agitated. Affect guarded and restricted. Intellect poor. Mood depressed, anxious. Motor activity, psychomotor agitation. Attention span is poor. Orientation x2. Speech is low volume and slurred. Thought process, disorganized. Thought content, auditory hallucinations and paranoid delusions. Insight and judgment is poor. DIAGNOSIS: Bipolar 2. PLAN: Treat her with Wellbutrin 100 mg daily, Cymbalta 90 mg daily, Neurontin 300 mg three times a day, Topamax 25 mg twice a day as a mood stabilizer, and trazodone 200 mg nightly, and 18 to 20 minutes of supportive psychotherapy provided. Chart reviewed and discussed with staff. Seen and assessed at bedside . Mena Goncalves M.D. DR: Audra JOB#: [id number] CC:
[2017-11-21] MEDS: D5 1/2NS 1,000 ML IV SCH ×2 (03:49→11:56)
[2017-11-21 06:08] LABS: BASOPHILS % (AUTO) 0.5 % (0.0-2.0); EOSINOPHILS % (AUTO) 1.3 % (0.0-3.0); HEMATOCRIT 42.9 % (37.0-47.0); HEMOGLOBIN 13.8 G/DL (12.0-16.0); LYMPHOCYTES % (AUTO) 16.1 % (20.0-45.0); MEAN CORPUSCULAR VOLUME 91 FL (80-99); MONOCYTES % (AUTO) 4.5 % (1.0-10.0); NEUTROPHILS % (AUTO) 77.6 % (45.0-75.0); PLATELET COUNT 173 K/UL (150-450); RED BLOOD COUNT 4.73 M/UL (4.20-5.40); WHITE BLOOD COUNT 15.9 K/UL (4.8-10.8)
[2017-11-21 06:21] LABS: ANION GAP 12 mmol/L (5-15); BLOOD UREA NITROGEN 8 mg/dL (7-18); CALCIUM 9.5 MG/DL (8.5-10.1); CARBON DIOXIDE 23 MMOL/L (21-32); CHLORIDE 103 MMOL/L (98-107); CREATININE 0.7 MG/DL (0.55-1.30); POTASSIUM 3.6 MMOL/L (3.5-5.1); SODIUM 138 MMOL/L (136-145)
--- NOTE | 2017-11-21 07:15 | General Progress Note ---
Assessment/Plan Problem List: (1) History of exploratory laparotomy ICD Codes: Z98.89 - Other specified postprocedural states SNOMED: 72530200, 13696272, 948383060 (2) Smoker ICD Codes: F17.200 - Nicotine dependence, unspecified, uncomplicated SNOMED: 18692000 (3) Malignant pleural effusion ICD Codes: J91.0 - Malignant pleural effusion SNOMED: 57099781 (4) Metastatic cancer ICD Codes: C79.9 - Secondary malignant neoplasm of unspecified site SNOMED: 956769111 (5) Lung mass ICD Codes: R91.8 - Other nonspecific abnormal finding of lung field SNOMED: 075587526 (6) Crohns disease ICD Codes: K50.90 - Crohns disease SNOMED: 18027981 Assessment/Plan fu labs fu oncology pain control Subjective ROS Limited/Unobtainable: Yes Allergies: Coded Allergies: No Known Allergies (Verified , 05/21/06) Subjective no event Objective Last 24 Hour Vital Signs Date Time Temp Pulse Resp B/P (MAP) Pulse Ox O2 Delivery O2 Flow Rate FiO2 11/21/17 04:00 97.3 114 16 92/74 95 Room Air 97.3 11/21/17 00:00 97.2 16 113/73 100 Room Air 97.2 11/20/17 20:00 97.7 113 16 103/73 93 Room Air 97.7 11/20/17 16:00 98.8 114 19 129/90 100 Room Air 98.8 11/20/17 15:52 98.8 11/20/17 14:53 97.8 11/20/17 12:00 97.8 99 19 127/81 99 Room Air 97.8 11/20/17 08:00 98.6 109 18 124/79 100 Room Air 98.6 Intake and Output 11/20/17 11/21/17 19:00 07:00 Intake Total 550 ml 120 ml Balance 550 ml 120 ml Intake Oral 120 ml Other 550 ml # Voids 3 2 Laboratory Tests 11/21/17 05:33: White Blood Count 15.9H, Red Blood Count 4.73, Hemoglobin 13.8, Hematocrit 42.9 , Mean Corpuscular Volume 91, Mean Corpuscular Hemoglobin 29.2, Mean Corpuscular Hemoglobin Concent 32.2, Red Cell Distribution Width 15.0H, Platelet Count 173, Mean Platelet Volume 7.7, Neutrophils (%) (Auto) 77.6H, Lymphocytes (%) (Auto) 16.1L, Monocytes (%) (Auto) 4.5, Eosinophils (%) (Auto) 1.3, Basophils (%) (Auto) 0.5, Sodium Level 138, Potassium Level 3.6, Chloride Level 103, Carbon Dioxide Level 23, Anion Gap 12, Blood Urea Nitrogen 8, Creatinine 0.7, Estimat Glomerular Filtration Rate > 60, Glucose Level 113H, Calcium Level 9.5 Height (Feet): 5 Height (Inches): 6.00 Weight (Pounds): 129 General Appearance: alert EENT: normal ENT inspection Neck: supple Cardiovascular: normal rate Respiratory/Chest: decreased breath sounds Abdomen: normal bowel sounds, non tender, soft Extremities: non-tender LUIS POTTS Nov 21, 2017 07:15
--- NOTE | 2017-11-21 08:14 | General Progress Note ---
Assessment/Plan Problem List: (1) Crohn's disease ICD Codes: K50.90 - Crohn's disease SNOMED: 90235716 Qualifiers: Qualified Codes: K50.919 - Crohn's disease, unspecified, with unspecified complications (2) Opioid dependence ICD Codes: F11.20 - Opioid dependence SNOMED: 22900698 (3) Intractable abdominal pain ICD Codes: R10.9 - Unspecified abdominal pain SNOMED: 88450129, 513431996 (4) COPD (chronic obstructive pulmonary disease) ICD Codes: J44.9 - Chronic obstructive pulmonary disease SNOMED: 57769927 (5) Shortness of breath (6) SOB (shortness of breath) ICD Codes: R06.02 - Shortness of breath SNOMED: 015015704 (7) UTI (urinary tract infection) ICD Codes: N39.0 - Urinary tract infection, site not specified SNOMED: 80000542 (8) Lung mass ICD Codes: R91.8 - Other nonspecific abnormal finding of lung field SNOMED: 725160777 (9) Tachycardia ICD Codes: R00.0 - Tachycardia, unspecified SNOMED: 5071397 Status: unchanged Assessment/Plan ot pt diet pain control sx eval cbc bmp am heme f/u cardio eval, tele transfer Subjective Constitutional: Reports: weakness Allergies: Coded Allergies: No Known Allergies (Verified , 05/21/06) All Systems: reviewed and negative except above Subjective sl anxious in bed Objective Last 24 Hour Vital Signs Date Time Temp Pulse Resp B/P (MAP) Pulse Ox O2 Delivery O2 Flow Rate FiO2 11/21/17 04:00 97.3 114 16 92/74 95 Room Air 97.3 11/21/17 02:00 118 14 112/72 92 Nasal Cannula 4.0 11/21/17 01:00 97.1 124 14 115/71 91 Nasal Cannula 3.0 97.1 11/21/17 00:00 120 11/21/17 00:00 97.2 16 113/73 100 Room Air 97.2 11/20/17 20:00 97.7 113 16 103/73 93 Room Air 97.7 11/20/17 16:00 98.8 114 19 129/90 100 Room Air 98.8 11/20/17 15:52 98.8 11/20/17 14:53 97.8 11/20/17 12:00 97.8 99 19 127/81 99 Room Air 97.8 Intake and Output 11/20/17 11/21/17 19:00 07:00 Intake Total 550 ml 120 ml Balance 550 ml 120 ml Intake Oral 120 ml Other 550 ml # Voids 3 2 Laboratory Tests 11/21/17 05:33: White Blood Count 15.9H, Red Blood Count 4.73, Hemoglobin 13.8, Hematocrit 42.9 , Mean Corpuscular Volume 91, Mean Corpuscular Hemoglobin 29.2, Mean Corpuscular Hemoglobin Concent 32.2, Red Cell Distribution Width 15.0H, Platelet Count 173, Mean Platelet Volume 7.7, Neutrophils (%) (Auto) 77.6H, Lymphocytes (%) (Auto) 16.1L, Monocytes (%) (Auto) 4.5, Eosinophils (%) (Auto) 1.3, Basophils (%) (Auto) 0.5, Sodium Level 138, Potassium Level 3.6, Chloride Level 103, Carbon Dioxide Level 23, Anion Gap 12, Blood Urea Nitrogen 8, Creatinine 0.7, Estimat Glomerular Filtration Rate > 60, Glucose Level 113H, Calcium Level 9.5 Height (Feet): 5 Height (Inches): 6.00 Weight (Pounds): 129 General Appearance: lethargic EENT: normal ENT inspection Neck: normal alignment Cardiovascular: normal peripheral pulses, normal rate, regular rhythm Respiratory/Chest: chest wall non-tender, decreased breath sounds Abdomen: normal bowel sounds, non tender, soft Extremities: normal inspection Edema: no edema noted Arm (L), no edema noted Arm (R), no edema noted Leg (L), no edema noted Leg (R), no edema noted Pedal (L), no edema noted Pedal (R), no edema noted Generalized Neurologic: responsive, motor weakness Skin: normal pigmentation, warm/dry BAYRON BENEDICT Nov 21, 2017 08:14
[2017-11-21] MEDS: Theophylline ER 100mg ORAL SCH ×2 (08:33→20:41)
[2017-11-21] MEDS: Topiramate 25mg tab ORAL SCH ×2 (08:33→20:41)
[2017-11-21] MEDS: DULoxetine 30mg cap ORAL SCH (08:34)
[2017-11-21] MEDS: Heparin 5000 units/ml inj SUBQ SCH ×2 (08:34→20:42)
[2017-11-21] MEDS: Relistor 12mg/0.6ml Vial SUBQ SCH (08:49)
[2017-11-21] MEDS ORDERED: D5 1/2NS 1000ml IV ONE (09:34)
[2017-11-21] MEDS ORDERED: HYDROcodone/Acetamin 10/325 tab ORAL PRN (10:45)
[2017-11-21] MEDS ORDERED: Simethicone 80mg tab ORAL PRN (11:00)
[2017-11-21] MEDS ORDERED: Miralax 17gm pkt ORAL PRN (11:00)
[2017-11-21] MEDS ORDERED: Promethazine HCl 25 MG in D5W 55 ML IV PRN (11:00)
[2017-11-21] MEDS ORDERED: Nitroglycerin Subl 0.4mg tab SL PRN (11:00)
[2017-11-21] MEDS ORDERED: Metoclopramide 10mg/2ml Inj IVP PRN (11:00)
[2017-11-21] MEDS ORDERED: Mylanta II UD 30ml ORAL PRN (11:00)
--- NOTE | 2017-11-21 12:36 | General Progress Note ---
Assessment/Plan Assessment/Plan (1) Chronic abdominal pain (2) Chronic pancreatitis (3) Crohn's disease (4) Herniated nucleus pulposus, lumbar (5) Lumbar spondylosis (6) Radiculopathy of lumbar region (7) Lung mass Pt will be continued on Neurontin, Dilaudid and [place] and pt has intrathecal pump. HOLD OPIOIDS FOR OVERSEDATION OR SBP<90 OR DBP<60 OR O2SAT<92% OR RR<12 Pt was d/w Dr. Malhotra and he concurred. Subjective Date patient seen: Nov 21, 2017 Time patient seen: 12:15 - pm Allergies: Coded Allergies: No Known Allergies (Verified , 05/21/06) Subjective Constitutional: Reports: weakness HEENT: Reports: no symptoms Cardiovascular: Reports: no symptoms Respiratory: Reports: no symptoms Gastrointestinal/Abdominal: Reports: abdominal pain Genitourinary: Reports: no symptoms Neurologic/Psychiatric: Reports: weakness Endocrine: Reports: no symptoms Hematologic/Lymphatic: Reports: no symptoms Subjective Patient reports that she continues to c/o pain and weakness. Pain has been reduced on the Dilaudid when given. One does was given today. Objective Last 24 Hour Vital Signs Date Time Temp Pulse Resp B/P (MAP) Pulse Ox O2 Delivery O2 Flow Rate FiO2 11/21/17 11:57 98.0 11/21/17 08:00 98.0 127 21 127/88 95 Room Air 98.0 11/21/17 04:00 97.3 114 16 92/74 95 Room Air 97.3 11/21/17 02:00 118 14 112/72 92 Nasal Cannula 4.0 11/21/17 01:00 97.1 124 14 115/71 91 Nasal Cannula 3.0 97.1 11/21/17 00:00 120 11/21/17 00:00 97.2 16 113/73 100 Room Air 97.2 11/20/17 20:00 97.7 113 16 103/73 93 Room Air 97.7 11/20/17 16:00 98.8 114 19 129/90 100 Room Air 98.8 11/20/17 15:52 98.8 11/20/17 14:53 97.8 Intake and Output 11/20/17 11/21/17 19:00 07:00 Intake Total 550 ml 120 ml Balance 550 ml 120 ml Intake Oral 120 ml Other 550 ml # Voids 3 2 Laboratory Tests 11/21/17 05:33: White Blood Count 15.9H, Red Blood Count 4.73, Hemoglobin 13.8, Hematocrit 42.9 , Mean Corpuscular Volume 91, Mean Corpuscular Hemoglobin 29.2, Mean Corpuscular Hemoglobin Concent 32.2, Red Cell Distribution Width 15.0H, Platelet Count 173, Mean Platelet Volume 7.7, Neutrophils (%) (Auto) 77.6H, Lymphocytes (%) (Auto) 16.1L, Monocytes (%) (Auto) 4.5, Eosinophils (%) (Auto) 1.3, Basophils (%) (Auto) 0.5, Sodium Level 138, Potassium Level 3.6, Chloride Level 103, Carbon Dioxide Level 23, Anion Gap 12, Blood Urea Nitrogen 8, Creatinine 0.7, Estimat Glomerular Filtration Rate > 60, Glucose Level 113H, Calcium Level 9.5 Height (Feet): 5 Height (Inches): 6.00 Weight (Pounds): 129 Objective General Appearance: no apparent distress, alert EENT: normal ENT inspection, TMs normal Neck: normal alignment, supple Cardiovascular: normal rate, regular rhythm Respiratory/Chest: decreased breath sounds Abdomen: tender, distended, intrathecal pump palpated Extremities: non-tender Edema: no edema noted Neurologic: alert, oriented x 3 Skin: warm/dry JOSE ARREDONDO Nov 21, 2017 12:36
--- NOTE | 2017-11-21 14:25 | Cardiac Electrophysiology PN ---
Subjective Subjective [id number] Objective Last 24 Hour Vital Signs Date Time Temp Pulse Resp B/P (MAP) Pulse Ox O2 Delivery O2 Flow Rate FiO2 11/21/17 12:27 97.4 11/21/17 12:00 127 11/21/17 12:00 208.4 127 21 139/77 95 Room Air 4.0 208.4 11/21/17 11:57 98.0 11/21/17 08:00 98.0 127 21 127/88 95 Room Air 98.0 11/21/17 04:00 97.3 114 16 92/74 95 Room Air 97.3 11/21/17 02:00 118 14 112/72 92 Nasal Cannula 4.0 11/21/17 01:00 97.1 124 14 115/71 91 Nasal Cannula 3.0 97.1 11/21/17 00:00 120 11/21/17 00:00 97.2 16 113/73 100 Room Air 97.2 11/20/17 20:00 97.7 113 16 103/73 93 Room Air 97.7 11/20/17 16:00 98.8 114 19 129/90 100 Room Air 98.8 11/20/17 15:52 98.8 11/20/17 14:53 97.8 Intake and Output 11/20/17 11/21/17 19:00 07:00 Intake Total 550 ml 120 ml Balance 550 ml 120 ml Intake Oral 120 ml Other 550 ml # Voids 3 2 Laboratory Tests Test 11/21/17 05:33 White Blood Count 15.9 K/UL (4.8-10.8) H Red Blood Count 4.73 M/UL (4.20-5.40) Hemoglobin 13.8 G/DL (12.0-16.0) Hematocrit 42.9 % (37.0-47.0) Mean Corpuscular Volume 91 FL (80-99) Mean Corpuscular Hemoglobin 29.2 PG (27.0-31.0) Mean Corpuscular Hemoglobin Concent 32.2 G/DL (32.0-36.0) Red Cell Distribution Width 15.0 % (11.6-14.8) H Platelet Count 173 K/UL (150-450) Mean Platelet Volume 7.7 FL (6.5-10.1) Neutrophils (%) (Auto) 77.6 % (45.0-75.0) H Lymphocytes (%) (Auto) 16.1 % (20.0-45.0) L Monocytes (%) (Auto) 4.5 % (1.0-10.0) Eosinophils (%) (Auto) 1.3 % (0.0-3.0) Basophils (%) (Auto) 0.5 % (0.0-2.0) Sodium Level 138 MMOL/L (136-145) Potassium Level 3.6 MMOL/L (3.5-5.1) Chloride Level 103 MMOL/L (98-107) Carbon Dioxide Level 23 MMOL/L (21-32) Anion Gap 12 mmol/L (5-15) Blood Urea Nitrogen 8 mg/dL (7-18) Creatinine 0.7 MG/DL (0.55-1.30) Estimat Glomerular Filtration Rate > 60 mL/min (>60) Glucose Level 113 MG/DL (74-106) H Calcium Level 9.5 MG/DL (8.5-10.1) Pk Dutta MD Nov 21, 2017 14:25
--- NOTE | 2017-11-21 17:00 | Cardiology Report ---
APPROVED REPORT EKG Measurement Heart [id number] Sinus tachycardia Septal infarct, age undetermined Abnormal ECG
--- NOTE | 2017-11-21 17:09 | Pulmonology Progress Note ---
Assessment/Plan Problems: (1) Metastatic cancer (2) Malignant pleural effusion (3) Chronic pain disorder (4) IBD (inflammatory bowel disease) (5) Interstitial lung disease (6) COPD (chronic obstructive pulmonary disease) Assessment/Plan symptomatic treatment d/w pathologist, there are malignant non-small cells in the pleural cavity. it seems metastatic, continue current symptomatic treatment oncology on the case already pain management dc planning with comfort care. social service consult to arrange family meeting for code status. Subjective ROS Limited/Unobtainable: No Constitutional: Reports: no symptoms HEENT: Repors: no symptoms Respiratory: Reports: no symptoms Allergies: Coded Allergies: No Known Allergies (Verified , 05/21/06) Objective Last 24 Hour Vital Signs Date Time Temp Pulse Resp B/P (MAP) Pulse Ox O2 Delivery O2 Flow Rate FiO2 11/21/17 16:00 131 11/21/17 12:27 97.4 11/21/17 12:00 127 11/21/17 12:00 208.4 127 21 139/77 95 Room Air 4.0 208.4 11/21/17 11:57 98.0 11/21/17 08:00 98.0 127 21 127/88 95 Room Air 98.0 11/21/17 04:00 97.3 114 16 92/74 95 Room Air 97.3 11/21/17 02:00 118 14 112/72 92 Nasal Cannula 4.0 11/21/17 01:00 97.1 124 14 115/71 91 Nasal Cannula 3.0 97.1 11/21/17 00:00 120 11/21/17 00:00 97.2 16 113/73 100 Room Air 97.2 11/20/17 20:00 97.7 113 16 103/73 93 Room Air 97.7 Intake and Output 11/20/17 11/21/17 19:00 07:00 Intake Total 550 ml 120 ml Balance 550 ml 120 ml Intake Oral 120 ml Other 550 ml # Voids 3 2 Objective General Appearance: WD/WN HEENT: normocephalic, atraumatic Respiratory/Chest: chest wall non-tender, lungs clear Cardiovascular: normal peripheral pulses, normal rate, regular rhythm Abdomen: normal bowel sounds, soft, non tender, no organomegaly, non distended Extremities: no cyanosis, no clubbing, no edema Skin: no rash, no lesions Neurologic/Psychiatric: food manager II-XII grossly normal Laboratory Tests 11/21/17 05:33: White Blood Count 15.9H, Red Blood Count 4.73, Hemoglobin 13.8, Hematocrit 42.9 , Mean Corpuscular Volume 91, Mean Corpuscular Hemoglobin 29.2, Mean Corpuscular Hemoglobin Concent 32.2, Red Cell Distribution Width 15.0H, Platelet Count 173, Mean Platelet Volume 7.7, Neutrophils (%) (Auto) 77.6H, Lymphocytes (%) (Auto) 16.1L, Monocytes (%) (Auto) 4.5, Eosinophils (%) (Auto) 1.3, Basophils (%) (Auto) 0.5, Sodium Level 138, Potassium Level 3.6, Chloride Level 103, Carbon Dioxide Level 23, Anion Gap 12, Blood Urea Nitrogen 8, Creatinine 0.7, Estimat Glomerular Filtration Rate > 60, Glucose Level 113H, Calcium Level 9.5 Current Medications Medications (Trade) Dose Ordered Sig/Vaibhav Route PRN Reason Start Time Stop Time Status Last Admin Dose Admin Acetaminophen (Tylenol) 650 mg Q4H PRN ORAL fever (temp>100.5F) 11/21/17 11:30 12/11/17 15:29 Acetaminophen/ Hydrocodone Bitart ([place] 10/325) 1 tab Q4H PRN ORAL Pain Scale (3-5) 11/21/17 10:45 11/25/17 08:29 Al Hydroxide/Mg Hydroxide (Mylanta II) 30 ml Q6H PRN ORAL dyspepsia 11/21/17 11:00 12/11/17 10:59 Atorvastatin Calcium (Lipitor) 40 mg BEDTIME ORAL 11/21/17 21:00 12/11/17 20:59 Bupropion HCl (Wellbutrin) 100 mg DAILY ORAL 11/22/17 09:00 12/12/17 08:59 Chlorhexidine Gluconate (Leah-Hex 2%) 1 applic DAILY@2000 TOPIC 11/21/17 20:00 12/17/17 19:59 Dextrose (Dextrose 50%) 50 ml STAT PRN IV Hypoglycemia BS<60mg/dL 11/21/17 11:00 12/11/17 10:59 Dextrose/Sodium Chloride 1,000 ml @ 75 mls/hr [id number] IV 11/21/17 11:00 12/11/17 10:59 11/21/17 11:56 Diphenhydramine HCl (Benadryl) 25 mg Q6H PRN ORAL Itching/Pruritis 11/21/17 11:00 12/11/17 10:59 Duloxetine HCl (Cymbalta) 90 mg DAILY ORAL 11/22/17 09:00 12/12/17 08:59 Gabapentin (Neurontin) 300 mg THREE TIMES A DAY ORAL 11/21/17 13:00 12/12/17 09:59 11/21/17 13:30 Heparin Sodium (Porcine) (Heparin 5000 units/ml) 5,000 units EVERY 12 HOURS SUBQ 11/21/17 21:00 12/11/17 20:59 Hydromorphone HCl (Dilaudid) 0.5 mg Q4H PRN IVP PAIN SCALE 4-10 11/21/17 11:00 11/25/17 10:59 11/21/17 11:57 Levetiracetam (Keppra) 1,000 mg Q8H ORAL 11/21/17 16:00 12/16/17 07:59 Levothyroxine Sodium (Synthroid) 75 mcg ACBREAKFAST ORAL 11/22/17 06:30 12/12/17 06:29 Methylnaltrexone Rowena (Relistor) 12 mg DAILY SUBQ 11/22/17 09:00 12/12/17 10:14 Metoclopramide HCl (Reglan) 10 mg Q6H PRN IVP Unrelieved Severe Nausea 11/21/17 11:00 12/11/17 10:59 Nitroglycerin (Ntg) 0.4 mg Q5M X 3 DOSES PRN SL Prn Chest Pain 11/21/17 11:00 12/11/17 10:59 Ondansetron HCl (Zofran) 4 mg Q6H PRN IVP Nausea & Vomiting 11/21/17 11:00 12/11/17 10:59 Pantoprazole (Protonix) 40 mg DAILY ORAL 11/22/17 09:00 12/15/17 08:59 Polyethylene Glycol (Miralax) 17 gm HSPRN PRN ORAL Constipation 11/21/17 11:00 12/11/17 10:59 Promethazine HCl 25 mg/Dextrose 56 ml @ 110 mls/hr Q6H PRN IV Refractory N/V 4/29/18 11:00 12/11/17 10:59 Simethicone (Mylicon) 80 mg QIDPRN PRN ORAL gas 11/21/17 11:00 12/12/17 10:59 Theophylline (Erwin-Dur) 100 mg Q12HR ORAL 11/21/17 21:00 12/11/17 20:59 Topiramate (Topamax) 25 mg EVERY 12 HOURS ORAL 11/21/17 21:00 12/11/17 20:59 Trazodone HCl (Desyrel) 200 mg BEDTIME ORAL 11/21/17 21:00 12/11/17 20:59 Rob Wagner MD Nov 21, 2017 17:09
[2017-11-21] MEDS ORDERED: Dyna-Hex 2% Top Sol 2oz TOPIC SCH (20:00)
[2017-11-21] MEDS ORDERED: Atorvastatin 20mg tab ORAL SCH (21:00)
[2017-11-21] MEDS ORDERED: TraZODone 100mg tab ORAL SCH (21:00)
--- NOTE | 2017-11-21 22:15 | Consultation ---
DATE OF CONSULTATION: 11/21/2017 CARDIOLOGY CONSULTATION CONSULTING PHYSICIAN: Pk Dutta M.D. REFERRING PHYSICIAN: Barber Dial D.O. REASON FOR CONSULTATION: Tachycardia. HISTORY OF PRESENT ILLNESS: The patient is a 66-year-old lady with history of Crohn disease, who also has an abdominal morphine pump. She was brought to the emergency room for severe abdominal pain. The patient also has COPD, inflammatory bowel disease, and also was found to be tachycardic with heart rate in the 130s. At my request, the patient was then transferred to telemetry for further management and closer observation. At the time of my evaluation, the patient still complains of generalized body ache. REVIEW OF SYSTEMS: Performed and was negative other than what was mentioned in history of present illness. PAST MEDICAL HISTORY: As mentioned above. FAMILY HISTORY: Noncontributory. SOCIAL HISTORY: She lives at home. Does not smoke or drink alcohol. PHYSICAL EXAMINATION: VITAL SIGNS: Blood pressure is 139/77, pulse is 127, respirations 18, and temperature is 97.4. HEAD AND NECK: Showed no JVD. LUNGS: Clear. CARDIOVASCULAR: Shows regular, S1 and S2. Tachycardic. ABDOMEN: Tender with a pump under skin. EXTREMITIES: No pitting edema. LABORATORY AND DIAGNOSTIC DATA: White count 15.9, hemoglobin of 13.8, hematocrit of 43, and platelet count is 172,000. Sodium 138, potassium 3.6, BUN of 8, creatinine 0.7, and glucose of 113. INR is 1.12. Urinalysis shows 3+ occult blood. ASSESSMENT AND PLAN: 1. Tachycardia due to sinus tachycardia, but no evidence of atrial fibrillation or SVT, likely due to the patient's pain. The patient is also on Synthroid. We will check thyroid function test to make sure the patient is not overdosed and is not hyperthyroid. An echocardiogram will also be ordered for further evaluation and management. 2. Malignant pleural effusion and metastatic cancer. The primary service at this time. 3. Lung mass. 4. Crohn disease and history of exploratory laparotomy, under management of Dr. Gallegos. 5. Ascites, routine paracentesis with cytology and also awaiting mediastinoscopy versus CT-guided lung biopsy as recommended by Dr. Bains. Thank you very much, Dr. Dial, for allowing me to participate in the care of this patient. Please do not hesitate to contact me for any questions regarding my evaluation. Pk Dutta M.D. DR: Lady JOB#: [id number] CC:
--- NOTE | 2017-11-21 22:30 | Progress Note ---
DATE: 11/21/2017 SUBJECTIVE: This is a 66-year-old female patient high levels of anxiety, agitation, and mood lability worsened by stress of her medical illness with an intractable abdominal pain, high levels of depression, anxiety, and mood lability that is why her attending has requested daily psychiatric consultation. MENTAL STATUS EXAMINATION: The patient is a 66-year-old female. Appearance is disheveled. Attitude, irritable and agitated. Affect, guarded and restricted. Intellect poor. Mood, depressed and anxious. Motor activity, psychomotor agitation. Attention span is poor. Orientation x2. Speech is pressured. Thought process, disorganized and logical. Thought content, auditory hallucinations and paranoid delusions. Insight and judgment is poor. IMPRESSION: Bipolar 2. PLAN: Plan is to treat her with psychiatric medication regimen of Neurontin three times a day, , and also continued on Cymbalta as well as Wellbutrin one to two daily. Provided 18 to 20 minutes of supportive psychotherapy. Chart reviewed and discussed with staff. Mena Goncalves M.D. DR: WILLARD JOB#: [id number] CC:
--- NOTE | 2017-11-21 23:24 | General Progress Note ---
Assessment/Plan Assessment/Plan IMPRESSION: 1. Left lower lobe lung mass. 2. Left inferior hilar mass. 3. Left pleural base lung mass. 4. Left pleural effusion. 5. Retroperitoneal lymphadenopathy. 6. Multiple low-attenuation liver lesions. 7. Crohn disease. 8. Opioid dependence. 9. Chronic obstructive pulmonary disease. 10. History of smoking. 11. Emphysema. 12. Perianal abscess. 13. Intractable abdominal pain. 14. Status post morphine pump placement. 15. Depression. 16. Psychosis. 17. Seizure disorder. 18. Radiculopathy of lumbar region. 19. Abdominal pain. 20. Nausea and vomiting. 21. Status post exploratory laparotomy. 22. Pneumoperitoneum. 23. Inflammatory bowel disease. 24. History of elevated CEA. 25. History of lower gastrointestinal bleed. 26. Chronic pain syndrome. 27. History of small bowel obstruction. 28. Status post laparotomy x2. 29. Failure to thrive. 30. Leukocytosis. RECOMMENDATIONS: 1. Watch count. 2. Watch coagulopathy. 3. Paracentesis with cytology. 4. Pulmonary evaluation/followup. 5. Mediastinoscopy versus CT-guided lung biopsy. 6. The patient needs tissue diagnosis. 7. ID followup. 8. Pain control. 9. Psychiatry evaluation. 10. Skin care. 11. Nutrition. 12. Continue current treatment. 13. Discussed with staff. 14. Close followup Subjective Date patient seen: Nov 20, 2017 Constitutional: Denies: no symptoms, chills, diaphoresis, fever, malaise, weakness, other HEENT: Denies: no symptoms, eye pain, blurred vision, tearing, double vision, ear pain, ear discharge, nose pain, nose congestion, throat pain, throat swelling, mouth pain, mouth swelling, other Cardiovascular: Denies: no symptoms, chest pain, edema, irregular heart rate, lightheadedness, palpitations, syncope, other Respiratory: Denies: no symptoms, cough, orthopnea, shortness of breath, SOB with excertion, SOB at rest, sputum, stridor, wheezing, other Gastrointestinal/Abdominal: Denies: no symptoms, abdomen distended, abdominal pain, black stools, tarry stools, blood in stool, constipated, diarrhea, difficulty swallowing, nausea, poor appetite, poor fluid intake, rectal bleeding , vomiting, other Genitourinary: Denies: no symptoms, burning, discharge, frequency, flank pain, hematuria, incontinence, pain, urgency, other Neurologic/Psychiatric: Denies: no symptoms, anxiety, depressed, emotional problems, headache, numbness, paresthesia, pre-existing deficit, seizure, tingling, tremors, weakness, other Allergies: Coded Allergies: No Known Allergies (Verified , 05/21/06) Subjective C/O pain. No fever or chills. Wbc elevated. Objective Last 24 Hour Vital Signs Date Time Temp Pulse Resp B/P (MAP) Pulse Ox O2 Delivery O2 Flow Rate FiO2 11/21/17 20:00 131 11/21/17 20:00 98.0 72 20 110/62 100 Room Air 4.0 98.0 11/21/17 16:00 98.0 131 21 118/74 95 Room Air 4.0 98.0 11/21/17 16:00 131 11/21/17 12:27 97.4 11/21/17 12:00 127 11/21/17 12:00 208.4 127 21 139/77 95 Room Air 4.0 208.4 11/21/17 11:57 98.0 11/21/17 08:00 98.0 127 21 127/88 95 Room Air 98.0 11/21/17 04:00 97.3 114 16 92/74 95 Room Air 97.3 11/21/17 02:00 118 14 112/72 92 Nasal Cannula 4.0 11/21/17 01:00 97.1 124 14 115/71 91 Nasal Cannula 3.0 97.1 11/21/17 00:00 120 11/21/17 00:00 97.2 16 113/73 100 Room Air 97.2 Intake and Output 11/20/17 11/21/17 19:00 07:00 Intake Total 550 ml 120 ml Balance 550 ml 120 ml Intake Oral 120 ml Other 550 ml # Voids 3 2 Laboratory Tests 11/21/17 05:33: White Blood Count 15.9H, Red Blood Count 4.73, Hemoglobin 13.8, Hematocrit 42.9 , Mean Corpuscular Volume 91, Mean Corpuscular Hemoglobin 29.2, Mean Corpuscular Hemoglobin Concent 32.2, Red Cell Distribution Width 15.0H, Platelet Count 173, Mean Platelet Volume 7.7, Neutrophils (%) (Auto) 77.6H, Lymphocytes (%) (Auto) 16.1L, Monocytes (%) (Auto) 4.5, Eosinophils (%) (Auto) 1.3, Basophils (%) (Auto) 0.5, Sodium Level 138, Potassium Level 3.6, Chloride Level 103, Carbon Dioxide Level 23, Anion Gap 12, Blood Urea Nitrogen 8, Creatinine 0.7, Estimat Glomerular Filtration Rate > 60, Glucose Level 113H, Calcium Level 9.5 11/21/17 17:05: Troponin I 0.093H, Thyroid Stimulating Hormone (TSH) 0.503, Free Thyroxine 1.31 Height (Feet): 5 Height (Inches): 6.00 Weight (Pounds): 129 General Appearance: no apparent distress EENT: normal ENT inspection Neck: normal alignment, supple Cardiovascular: normal rate, regular rhythm Respiratory/Chest: decreased breath sounds Abdomen: distended, tender Connor Bains MD Nov 21, 2017 23:24
[2017-11-22] VITALS (7 sets, daily range): BP systolic 99–144; BP diastolic 70–99
[2017-11-22] MEDS: D5 1/2NS 1,000 ML IV SCH ×2 (00:04→13:40)
[2017-11-22 04:36] LABS: BASOPHILS % (AUTO) 0.5 % (0.0-2.0); EOSINOPHILS % (AUTO) 0.9 % (0.0-3.0); HEMATOCRIT 38.1 % (37.0-47.0); LYMPHOCYTES % (AUTO) 16.5 % (20.0-45.0); MEAN CORPUSCULAR VOLUME 90 FL (80-99); MONOCYTES % (AUTO) 5.3 % (1.0-10.0); NEUTROPHILS % (AUTO) 76.8 % (45.0-75.0); PLATELET COUNT 193 K/UL (150-450); RED BLOOD COUNT 4.23 M/UL (4.20-5.40); RED CELL DISTRIBUTION WIDTH 15.1 % (11.6-14.8); WHITE BLOOD COUNT 15.7 K/UL (4.8-10.8)
[2017-11-22 05:04] LABS: ANION GAP 10 mmol/L (5-15); BLOOD UREA NITROGEN 15 mg/dL (7-18); CARBON DIOXIDE 25 MMOL/L (21-32); CHLORIDE 104 MMOL/L (98-107); CREATININE 0.8 MG/DL (0.55-1.30); POTASSIUM 3.5 MMOL/L (3.5-5.1); SODIUM 139 MMOL/L (136-145)
[2017-11-22] MEDS: Heparin 5000 units/ml inj SUBQ SCH (09:00)
[2017-11-22] MEDS ORDERED: Relistor 12mg/0.6ml Vial SUBQ SCH (09:00)
[2017-11-22] MEDS ORDERED: DULoxetine 30mg cap ORAL SCH (09:00)
--- NOTE | 2017-11-22 09:09 | General Progress Note ---
Assessment/Plan Assessment/Plan (1) Chronic abdominal pain (2) Chronic pancreatitis (3) Crohn's disease (4) Herniated nucleus pulposus, lumbar (5) Lumbar spondylosis (6) Radiculopathy of lumbar region (7) Lung mass Pt will be continued on Neurontin, Dilaudid and [place] and pt has intrathecal pump. HOLD OPIOIDS FOR OVERSEDATION OR SBP<90 OR DBP<60 OR O2SAT<92% OR RR<12 Pt was d/w Dr. Malhotra and he concurred. Subjective Date patient seen: Nov 22, 2017 Time patient seen: 08:15 - am Allergies: Coded Allergies: No Known Allergies (Verified , 05/21/06) Subjective Constitutional: Reports: weakness HEENT: Reports: no symptoms Cardiovascular: Reports: no symptoms Respiratory: Reports: no symptoms Gastrointestinal/Abdominal: Reports: abdominal pain Genitourinary: Reports: no symptoms Neurologic/Psychiatric: Reports: weakness Endocrine: Reports: no symptoms Hematologic/Lymphatic: Reports: no symptoms Subjective Patient has been tolerating pain. Still c/o weakness eating poorly. One Dilaudid dose given in the last 24hrs. Objective Last 24 Hour Vital Signs Date Time Temp Pulse Resp B/P (MAP) Pulse Ox O2 Delivery O2 Flow Rate FiO2 11/22/17 08:00 98.2 124 14 116/77 100 Nasal Cannula 2.0 98.2 11/22/17 04:00 98.1 122 20 129/74 99 Room Air 4.0 98.1 11/22/17 04:00 124 11/22/17 00:00 120 11/22/17 00:00 97.5 119 20 108/80 99 Room Air 4.0 97.5 11/21/17 20:00 131 11/21/17 20:00 98.0 72 20 110/62 100 Room Air 4.0 98.0 11/21/17 16:00 98.0 131 21 118/74 95 Room Air 4.0 98.0 11/21/17 16:00 131 11/21/17 12:27 97.4 11/21/17 12:00 127 11/21/17 12:00 208.4 127 21 139/77 95 Room Air 4.0 208.4 11/21/17 11:57 98.0 Intake and Output 11/21/17 11/22/17 19:00 07:00 Intake Total 1400 ml 895 ml Output Total 0 ml Balance 1400 ml 895 ml IV Total 600 ml 895 ml Other 800 ml Output Urine Total 0 ml # Voids 3 Laboratory Tests 11/21/17 17:05: Troponin I 0.093H, Thyroid Stimulating Hormone (TSH) 0.503, Free Thyroxine 1.31 11/22/17 03:50: Troponin I 0.298H, White Blood Count 15.7H, Red Blood Count 4.23, Hemoglobin 13.0, Hematocrit 38.1, Mean Corpuscular Volume 90, Mean Corpuscular Hemoglobin 30.8, Mean Corpuscular Hemoglobin Concent 34.2, Red Cell Distribution Width 15.1H, Platelet Count 193, Mean Platelet Volume 7.4, Neutrophils (%) (Auto) 76.8H, Lymphocytes (%) (Auto) 16.5L, Monocytes (%) (Auto) 5.3, Eosinophils (%) ( Auto) 0.9, Basophils (%) (Auto) 0.5, Sodium Level 139, Potassium Level 3.5, Chloride Level 104, Carbon Dioxide Level 25, Anion Gap 10, Blood Urea Nitrogen 15, Creatinine 0.8, Estimat Glomerular Filtration Rate > 60, Glucose Level 118H , Calcium Level 10.0 Height (Feet): 5 Height (Inches): 6.00 Weight (Pounds): 129 Objective General Appearance: no apparent distress, alert EENT: normal ENT inspection, TMs normal Neck: normal alignment, supple Cardiovascular: normal rate, regular rhythm Respiratory/Chest: decreased breath sounds Abdomen: tender, distended, intrathecal pump palpated Extremities: non-tender Edema: no edema noted Neurologic: alert, oriented x 3 Skin: warm/dry JOSE ARREDONDO PDawna Nov 22, 2017 09:09
[2017-11-22] MEDS: Theophylline ER 100mg ORAL SCH (09:29)
[2017-11-22] MEDS: Topiramate 25mg tab ORAL SCH (09:30)
--- NOTE | 2017-11-22 10:09 | Cardiology Report ---
APPROVED REPORT EXAM: Two-dimensional and M-mode echocardiogram with Doppler and color Doppler. INDICATION Tachycardia M-Mode DIMENSIONS IVSd0.9 (0.7-1.1cm)Left Atrium (MM)3.4 (1.6-4.0cm) LVDd2.0 (3.5-5.6cm)Aortic Root2.7 (2.0-3.7cm) PWd1.1 (0.7-1.1cm)Aortic Cusp Exc.1.9 (1.5-2.0cm) LVDs1.5 (2.5-4.0cm) PWs1.4 cm Technically difficult and limited study due to poor apical windows. Study quality precludes accurate assessment of regional wall motion. Normal left ventricular chamber size, systolic function and wall motion. Left ventricular ejection fraction estimated to be 65 %. No evidence of left ventricular hypertrophy. Anterior Echo-free space, may be due to pericardial fat or effusion. All other cardiac chamber sizes are within normal limits. Focal aortic valve sclerosis with adequate cusp excursion. Thickened mitral valve leaflets with normal excursion. Mild mitral annulus and aortic root calcification. Pulmonic valve not well visualized. Normal tricuspid valve structure. IVC measures at 1.9 cm with physiological collapse. A color flow and spectral Doppler study was performed and revealed: Trace aortic insufficiency. Mild mitral regurgitation. Mitral diastolic velocities suggest mild left ventricular diastolic dysfunction (Grade I). Mild tricuspid regurgitation. Tricuspid systolic velocities suggests peak right ventricular systolic pressure of 92 mmHg, consistent with severe pulmonary hypertension. No pulmonic regurgitation present.
--- NOTE | 2017-11-22 10:10 | GI Progress Note ---
Assessment/Plan Problems: (1) Crohn's disease ICD Codes: K50.90 - Crohn's disease SNOMED: 48742376 Qualifiers: Qualified Codes: K50.919 - Crohn's disease, unspecified, with unspecified complications (2) Opioid dependence ICD Codes: F11.20 - Opioid dependence SNOMED: 54365611 (3) SBO (small bowel obstruction) ICD Codes: K56.609 - Unspecified intestinal obstruction, unspecified as to partial versus complete obstruction SNOMED: 154937169 (4) Chronic abdominal pain Status: stable Status Narrative Discussed with Dr. Gallegos. Assessment/Plan CT AP reviewed >> Evidence of disseminated malignancy, with large left pulmonary hilar mass or adenopathy, extensive left hilar and mediastinal adenopathy, multiple pleural- based masses on the left, multiple masses within the liver, and retroperitoneal lymphadenopathy. Recommendations fu oncology recs pain mgmt Subjective Subjective generalized pain/weakness Objective Last 24 Hour Vital Signs Date Time Temp Pulse Resp B/P (MAP) Pulse Ox O2 Delivery O2 Flow Rate FiO2 11/22/17 08:00 98.2 124 14 116/77 100 Nasal Cannula 2.0 98.2 11/22/17 04:00 98.1 122 20 129/74 99 Room Air 4.0 98.1 11/22/17 04:00 124 11/22/17 00:00 120 11/22/17 00:00 97.5 119 20 108/80 99 Room Air 4.0 97.5 11/21/17 20:00 131 11/21/17 20:00 98.0 72 20 110/62 100 Room Air 4.0 98.0 11/21/17 16:00 98.0 131 21 118/74 95 Room Air 4.0 98.0 11/21/17 16:00 131 11/21/17 12:27 97.4 11/21/17 12:00 127 11/21/17 12:00 208.4 127 21 139/77 95 Room Air 4.0 208.4 11/21/17 11:57 98.0 Intake and Output 11/21/17 11/22/17 19:00 07:00 Intake Total 1400 ml 895 ml Output Total 0 ml Balance 1400 ml 895 ml IV Total 600 ml 895 ml Other 800 ml Output Urine Total 0 ml # Voids 3 Laboratory Tests Test 11/21/17 17:05 11/22/17 03:50 Troponin I 0.093 ng/mL (0.000-0.056) 0.298 ng/mL (0.000-0.056) Thyroid Stimulating Hormone (TSH) 0.503 uiU/mL (0.358-3.740) Free Thyroxine 1.31 NG/DL (0.76-1.46) White Blood Count 15.7 K/UL (4.8-10.8) H Red Blood Count 4.23 M/UL (4.20-5.40) Hemoglobin 13.0 G/DL (12.0-16.0) Hematocrit 38.1 % (37.0-47.0) Mean Corpuscular Volume 90 FL (80-99) Mean Corpuscular Hemoglobin 30.8 PG (27.0-31.0) Mean Corpuscular Hemoglobin Concent 34.2 G/DL (32.0-36.0) Red Cell Distribution Width 15.1 % (11.6-14.8) H Platelet Count 193 K/UL (150-450) Mean Platelet Volume 7.4 FL (6.5-10.1) Neutrophils (%) (Auto) 76.8 % (45.0-75.0) H Lymphocytes (%) (Auto) 16.5 % (20.0-45.0) L Monocytes (%) (Auto) 5.3 % (1.0-10.0) Eosinophils (%) (Auto) 0.9 % (0.0-3.0) Basophils (%) (Auto) 0.5 % (0.0-2.0) Sodium Level 139 MMOL/L (136-145) Potassium Level 3.5 MMOL/L (3.5-5.1) Chloride Level 104 MMOL/L (98-107) Carbon Dioxide Level 25 MMOL/L (21-32) Anion Gap 10 mmol/L (5-15) Blood Urea Nitrogen 15 mg/dL (7-18) Creatinine 0.8 MG/DL (0.55-1.30) Estimat Glomerular Filtration Rate > 60 mL/min (>60) Glucose Level 118 MG/DL (74-106) H Calcium Level 10.0 MG/DL (8.5-10.1) Height (Feet): 5 Height (Inches): 6.00 Weight (Pounds): 129 General Appearance: WD/WN, no apparent distress, alert, thin Cardiovascular: normal rate Respiratory/Chest: normal breath sounds, no respiratory distress Abdominal Exam: normal bowel sounds, non tender, soft Extremities: non-tender Tara Scott N.P. Nov 22, 2017 10:10
--- NOTE | 2017-11-22 10:50 | Cardiac Electrophysiology PN ---
Assessment/Plan Assessment/Plan 1. Sinus tachycardia with no evidence of atrial fibrillation or SVT, likely due to the patient's pain and respiratory failure. Echocardiogram showed EF 65%. ECG today also sinus tach 2. Malignant pleural effusion and metastatic cancer. ? Source. Follow up Dr. Wagner 3. Lung mass. 4. Crohn disease and history of exploratory laparotomy, under managementof Dr. Gallegos. 5. Ascites, paracentesis with cytology and also awaiting mediastinoscopy versus CT-guided lung biopsy as recommended by Dr. Bains. 6. Still full Code per RN DW RN Subjective Subjective Altered in SOB and in sinus tach 120-130s. Objective Last 24 Hour Vital Signs Date Time Temp Pulse Resp B/P (MAP) Pulse Ox O2 Delivery O2 Flow Rate FiO2 11/22/17 08:00 125 11/22/17 08:00 98.2 124 14 116/77 100 Nasal Cannula 2.0 98.2 11/22/17 04:00 98.1 122 20 129/74 99 Room Air 4.0 98.1 11/22/17 04:00 124 11/22/17 00:00 120 11/22/17 00:00 97.5 119 20 108/80 99 Room Air 4.0 97.5 11/21/17 20:00 131 11/21/17 20:00 98.0 72 20 110/62 100 Room Air 4.0 98.0 11/21/17 16:00 98.0 131 21 118/74 95 Room Air 4.0 98.0 11/21/17 16:00 131 11/21/17 12:27 97.4 11/21/17 12:00 127 11/21/17 12:00 208.4 127 21 139/77 95 Room Air 4.0 208.4 11/21/17 11:57 98.0 Intake and Output 11/21/17 11/22/17 19:00 07:00 Intake Total 1400 ml 895 ml Output Total 0 ml Balance 1400 ml 895 ml IV Total 600 ml 895 ml Other 800 ml Output Urine Total 0 ml # Voids 3 Laboratory Tests Test 11/21/17 17:05 11/22/17 03:50 Troponin I 0.093 ng/mL (0.000-0.056) 0.298 ng/mL (0.000-0.056) Thyroid Stimulating Hormone (TSH) 0.503 uiU/mL (0.358-3.740) Free Thyroxine 1.31 NG/DL (0.76-1.46) White Blood Count 15.7 K/UL (4.8-10.8) H Red Blood Count 4.23 M/UL (4.20-5.40) Hemoglobin 13.0 G/DL (12.0-16.0) Hematocrit 38.1 % (37.0-47.0) Mean Corpuscular Volume 90 FL (80-99) Mean Corpuscular Hemoglobin 30.8 PG (27.0-31.0) Mean Corpuscular Hemoglobin Concent 34.2 G/DL (32.0-36.0) Red Cell Distribution Width 15.1 % (11.6-14.8) H Platelet Count 193 K/UL (150-450) Mean Platelet Volume 7.4 FL (6.5-10.1) Neutrophils (%) (Auto) 76.8 % (45.0-75.0) H Lymphocytes (%) (Auto) 16.5 % (20.0-45.0) L Monocytes (%) (Auto) 5.3 % (1.0-10.0) Eosinophils (%) (Auto) 0.9 % (0.0-3.0) Basophils (%) (Auto) 0.5 % (0.0-2.0) Sodium Level 139 MMOL/L (136-145) Potassium Level 3.5 MMOL/L (3.5-5.1) Chloride Level 104 MMOL/L (98-107) Carbon Dioxide Level 25 MMOL/L (21-32) Anion Gap 10 mmol/L (5-15) Blood Urea Nitrogen 15 mg/dL (7-18) Creatinine 0.8 MG/DL (0.55-1.30) Estimat Glomerular Filtration Rate > 60 mL/min (>60) Glucose Level 118 MG/DL (74-106) H Calcium Level 10.0 MG/DL (8.5-10.1) Objective HEAD AND NECK: No JVD. LUNGS: Clear. CARDIOVASCULAR: Regular, S1 and S2. Tachycardic. ABDOMEN: Tender with a pump under skin. EXTREMITIES: No pitting edema. Pk Dutta MD Nov 22, 2017 10:50
[2017-11-22] MEDS ORDERED: Albuterol/Ipratropium 3ml neb HHN PRN (11:00)
--- NOTE | 2017-11-22 12:14 | Pulmonology Progress Note ---
Assessment/Plan Problems: (1) Metastatic cancer (2) Malignant pleural effusion (3) Chronic pain disorder (4) IBD (inflammatory bowel disease) (5) Interstitial lung disease (6) COPD (chronic obstructive pulmonary disease) Assessment/Plan respiratory treatment check cxr, d/w pathologist, there are malignant non-small cells in the pleural cavity. it seems metastatic, continue current symptomatic treatment oncology on the case already pain management dc planning with comfort care. social service consult to arrange family meeting for code status. Subjective ROS Limited/Unobtainable: No Interval Events: was short of breath earlier, getting respiratory treatment now , feels juan Constitutional: Reports: no symptoms HEENT: Repors: no symptoms Allergies: Coded Allergies: No Known Allergies (Verified , 05/21/06) Objective Last 24 Hour Vital Signs Date Time Temp Pulse Resp B/P (MAP) Pulse Ox O2 Delivery O2 Flow Rate FiO2 11/22/17 11:23 126 24 99 Nasal Cannula 2.0 28 11/22/17 11:22 Nasal Cannula 2.0 28 11/22/17 11:22 95 Nasal Cannula 2.0 28 11/22/17 11:14 126 20 Nasal Cannula 2.0 28 11/22/17 11:14 126 20 95 Nasal Cannula 2.0 28 11/22/17 08:00 125 11/22/17 08:00 98.2 124 14 116/77 100 Nasal Cannula 2.0 98.2 11/22/17 04:00 98.1 122 20 129/74 99 Room Air 4.0 98.1 11/22/17 04:00 124 11/22/17 00:00 120 11/22/17 00:00 97.5 119 20 108/80 99 Room Air 4.0 97.5 11/21/17 20:00 131 11/21/17 20:00 98.0 72 20 110/62 100 Room Air 4.0 98.0 11/21/17 16:00 98.0 131 21 118/74 95 Room Air 4.0 98.0 11/21/17 16:00 131 11/21/17 12:27 97.4 Intake and Output 11/21/17 11/22/17 19:00 07:00 Intake Total 1400 ml 895 ml Output Total 0 ml Balance 1400 ml 895 ml IV Total 600 ml 895 ml Other 800 ml Output Urine Total 0 ml # Voids 3 Objective General Appearance: WD/WN HEENT: normocephalic, atraumatic Respiratory/Chest: chest wall non-tender, lungs clear Cardiovascular: normal peripheral pulses, normal rate, regular rhythm Abdomen: normal bowel sounds, soft, non tender, no organomegaly, non distended Extremities: no cyanosis, no clubbing, no edema Skin: no rash, no lesions Neurologic/Psychiatric: plush cutter II-XII grossly normal Laboratory Tests 11/21/17 17:05: Troponin I 0.093H, Thyroid Stimulating Hormone (TSH) 0.503, Free Thyroxine 1.31 11/22/17 03:50: Troponin I 0.298H, White Blood Count 15.7H, Red Blood Count 4.23, Hemoglobin 13.0, Hematocrit 38.1, Mean Corpuscular Volume 90, Mean Corpuscular Hemoglobin 30.8, Mean Corpuscular Hemoglobin Concent 34.2, Red Cell Distribution Width 15.1H, Platelet Count 193, Mean Platelet Volume 7.4, Neutrophils (%) (Auto) 76.8H, Lymphocytes (%) (Auto) 16.5L, Monocytes (%) (Auto) 5.3, Eosinophils (%) ( Auto) 0.9, Basophils (%) (Auto) 0.5, Sodium Level 139, Potassium Level 3.5, Chloride Level 104, Carbon Dioxide Level 25, Anion Gap 10, Blood Urea Nitrogen 15, Creatinine 0.8, Estimat Glomerular Filtration Rate > 60, Glucose Level 118H , Calcium Level 10.0 Current Medications Medications (Trade) Dose Ordered Sig/Vaibhav Route PRN Reason Start Time Stop Time Status Last Admin Dose Admin Acetaminophen (Tylenol) 650 mg Q4H PRN ORAL fever (temp>100.5F) 11/21/17 11:30 12/11/17 15:29 Acetaminophen/ Hydrocodone Bitart ([place] 10/325) 1 tab Q4H PRN ORAL Pain Scale (3-5) 11/21/17 10:45 11/25/17 08:29 Al Hydroxide/Mg Hydroxide (Mylanta II) 30 ml Q6H PRN ORAL dyspepsia 11/21/17 11:00 12/11/17 10:59 Albuterol/ Ipratropium (Albuterol/ Ipratropium) 3 ml Q4HR PRN HHN Shortness of Breath 11/22/17 11:00 11/27/17 10:59 11/22/17 11:13 Atorvastatin Calcium (Lipitor) 40 mg BEDTIME ORAL 11/21/17 21:00 12/11/17 20:59 11/21/17 20:41 Bupropion HCl (Wellbutrin) 100 mg DAILY ORAL 11/22/17 09:00 12/12/17 08:59 11/22/17 09:30 Chlorhexidine Gluconate (Leah-Hex 2%) 1 applic DAILY@2000 TOPIC 11/21/17 20:00 12/17/17 19:59 11/21/17 20:40 Dextrose (Dextrose 50%) 50 ml STAT PRN IV Hypoglycemia BS<60mg/dL 11/21/17 11:00 12/11/17 10:59 Dextrose/Sodium Chloride 1,000 ml @ 75 mls/hr [id number] IV 11/21/17 11:00 12/11/17 10:59 11/22/17 00:04 Diphenhydramine HCl (Benadryl) 25 mg Q6H PRN ORAL Itching/Pruritis 11/21/17 11:00 12/11/17 10:59 Duloxetine HCl (Cymbalta) 90 mg DAILY ORAL 11/22/17 09:00 12/12/17 08:59 11/22/17 09:29 Gabapentin (Neurontin) 300 mg THREE TIMES A DAY ORAL 11/21/17 13:00 12/12/17 09:59 11/22/17 09:29 Heparin Sodium (Porcine) (Heparin 5000 units/ml) 5,000 units EVERY 12 HOURS SUBQ 11/21/17 21:00 12/11/17 20:59 11/21/17 20:42 Hydromorphone HCl (Dilaudid) 0.5 mg Q4H PRN IVP PAIN SCALE 4-10 11/21/17 11:00 11/25/17 10:59 11/21/17 11:57 Levetiracetam (Keppra) 1,000 mg Q8H ORAL 11/21/17 16:00 12/16/17 07:59 11/22/17 08:33 Levothyroxine Sodium (Synthroid) 75 mcg ACBREAKFAST ORAL 11/22/17 06:30 5/20/18 06:29 11/22/17 05:38 Methylnaltrexone [place] (Relistor) 12 mg DAILY SUBQ 11/22/17 09:00 12/12/17 10:14 11/22/17 09:37 Metoclopramide HCl (Reglan) 10 mg Q6H PRN IVP Unrelieved Severe Nausea 11/21/17 11:00 12/11/17 10:59 Nitroglycerin (Ntg) 0.4 mg Q5M X 3 DOSES PRN SL Prn Chest Pain 11/21/17 11:00 12/11/17 10:59 Ondansetron HCl (Zofran) 4 mg Q6H PRN IVP Nausea & Vomiting 11/21/17 11:00 12/11/17 10:59 Pantoprazole (Protonix) 40 mg DAILY ORAL 11/22/17 09:00 12/15/17 08:59 11/22/17 09:29 Polyethylene Glycol (Miralax) 17 gm HSPRN PRN ORAL Constipation 11/21/17 11:00 12/11/17 10:59 Promethazine HCl 25 mg/Dextrose 56 ml @ 110 mls/hr Q6H PRN IV Refractory N/V 11/21/17 11:00 12/11/17 10:59 Simethicone (Mylicon) 80 mg QIDPRN PRN ORAL gas 11/21/17 11:00 12/12/17 10:59 Theophylline (Erwin-Dur) 100 mg Q12HR ORAL 11/21/17 21:00 12/11/17 20:59 11/22/17 09:29 Topiramate (Topamax) 25 mg EVERY 12 HOURS ORAL 11/21/17 21:00 12/11/17 20:59 11/22/17 09:30 Trazodone HCl (Desyrel) 200 mg BEDTIME ORAL 11/21/17 21:00 12/11/17 20:59 11/21/17 20:41 Rob Wagner MD Nov 22, 2017 12:14
--- NOTE | 2017-11-22 13:19 | General Progress Note ---
Assessment/Plan Problem List: (1) Crohn's disease ICD Codes: K50.90 - Crohn's disease SNOMED: 45572557 Qualifiers: Qualified Codes: K50.919 - Crohn's disease, unspecified, with unspecified complications (2) Opioid dependence ICD Codes: F11.20 - Opioid dependence SNOMED: 48774790 (3) Intractable abdominal pain ICD Codes: R10.9 - Unspecified abdominal pain SNOMED: 62935298, 849154231 (4) COPD (chronic obstructive pulmonary disease) ICD Codes: J44.9 - Chronic obstructive pulmonary disease SNOMED: 89510139 (5) Shortness of breath (6) SOB (shortness of breath) ICD Codes: R06.02 - Shortness of breath SNOMED: 280363215 (7) UTI (urinary tract infection) ICD Codes: N39.0 - Urinary tract infection, site not specified SNOMED: 25837497 (8) Lung mass ICD Codes: R91.8 - Other nonspecific abnormal finding of lung field SNOMED: 344666459 (9) Tachycardia ICD Codes: R00.0 - Tachycardia, unspecified SNOMED: 9586658 Status: unchanged Assessment/Plan ot pt diet pain control sx eval cbc bmp am heme f/u cardio eval, Subjective Constitutional: Reports: weakness Respiratory: Reports: SOB with excertion Allergies: Coded Allergies: No Known Allergies (Verified , 05/21/06) All Systems: reviewed and negative except above Subjective sl anxious in bed Objective Last 24 Hour Vital Signs Date Time Temp Pulse Resp B/P (MAP) Pulse Ox O2 Delivery O2 Flow Rate FiO2 11/22/17 12:00 124 11/22/17 12:00 98.2 119 12 131/86 100 Nasal Cannula 2.0 98.2 11/22/17 11:23 126 24 99 Nasal Cannula 2.0 28 11/22/17 11:22 Nasal Cannula 2.0 28 11/22/17 11:22 95 Nasal Cannula 2.0 28 11/22/17 11:14 126 20 Nasal Cannula 2.0 28 11/22/17 11:14 126 20 95 Nasal Cannula 2.0 28 11/22/17 08:00 125 11/22/17 08:00 98.2 124 14 116/77 100 Nasal Cannula 2.0 98.2 11/22/17 04:00 98.1 122 20 129/74 99 Room Air 4.0 98.1 11/22/17 04:00 124 11/22/17 00:00 120 11/22/17 00:00 97.5 119 20 108/80 99 Room Air 4.0 97.5 11/21/17 20:00 131 11/21/17 20:00 98.0 72 20 110/62 100 Room Air 4.0 98.0 11/21/17 16:00 98.0 131 21 118/74 95 Room Air 4.0 98.0 11/21/17 16:00 131 Intake and Output 11/21/17 11/22/17 19:00 07:00 Intake Total 1400 ml 895 ml Output Total 0 ml Balance 1400 ml 895 ml IV Total 600 ml 895 ml Other 800 ml Output Urine Total 0 ml # Voids 3 Laboratory Tests 11/21/17 17:05: Troponin I 0.093H, Thyroid Stimulating Hormone (TSH) 0.503, Free Thyroxine 1.31 11/22/17 03:50: Troponin I 0.298H, White Blood Count 15.7H, Red Blood Count 4.23, Hemoglobin 13.0, Hematocrit 38.1, Mean Corpuscular Volume 90, Mean Corpuscular Hemoglobin 30.8, Mean Corpuscular Hemoglobin Concent 34.2, Red Cell Distribution Width 15.1H, Platelet Count 193, Mean Platelet Volume 7.4, Neutrophils (%) (Auto) 76.8H, Lymphocytes (%) (Auto) 16.5L, Monocytes (%) (Auto) 5.3, Eosinophils (%) ( Auto) 0.9, Basophils (%) (Auto) 0.5, Sodium Level 139, Potassium Level 3.5, Chloride Level 104, Carbon Dioxide Level 25, Anion Gap 10, Blood Urea Nitrogen 15, Creatinine 0.8, Estimat Glomerular Filtration Rate > 60, Glucose Level 118H , Calcium Level 10.0 Height (Feet): 5 Height (Inches): 6.00 Weight (Pounds): 129 General Appearance: lethargic EENT: normal ENT inspection Neck: normal alignment Cardiovascular: normal peripheral pulses, normal rate, regular rhythm Respiratory/Chest: chest wall non-tender, decreased breath sounds Abdomen: normal bowel sounds, non tender, soft Extremities: normal inspection Edema: no edema noted Arm (L), no edema noted Arm (R), no edema noted Leg (L), no edema noted Leg (R), no edema noted Pedal (L), no edema noted Pedal (R), no edema noted Generalized Neurologic: motor weakness Skin: normal pigmentation, warm/dry BAYRON BENEDICT Nov 22, 2017 13:19
--- NOTE | 2017-11-22 13:19 | General Progress Note ---
Assessment/Plan Assessment/Plan IMPRESSION: 1. Left lower lobe lung mass. 2. Left inferior hilar mass. 3. Left pleural base lung mass. 4. Left pleural effusion. 5. Retroperitoneal lymphadenopathy. 6. Multiple low-attenuation liver lesions. 7. Crohn disease. 8. Opioid dependence. 9. Chronic obstructive pulmonary disease. 10. History of smoking. 11. Emphysema. 12. Perianal abscess. 13. Intractable abdominal pain. 14. Status post morphine pump placement. 15. Depression. 16. Psychosis. 17. Seizure disorder. 18. Radiculopathy of lumbar region. 19. Abdominal pain. 20. Nausea and vomiting. 21. Status post exploratory laparotomy. 22. Pneumoperitoneum. 23. Inflammatory bowel disease. 24. History of elevated CEA. 25. History of lower gastrointestinal bleed. 26. Chronic pain syndrome. 27. History of small bowel obstruction. 28. Status post laparotomy x2. 29. Failure to thrive. 30. Leukocytosis. RECOMMENDATIONS: 1. Watch count. 2. Watch coagulopathy. 3. Paracentesis with cytology. 4. Pulmonary evaluation/followup. 5. Mediastinoscopy versus CT-guided lung biopsy. 6. The patient needs tissue diagnosis. 7. ID followup. 8. Pain control. 9. Psychiatry evaluation. 10. Skin care. 11. Nutrition. 12. Continue current treatment. 13. Discussed with staff. 14. Close followup Subjective Date patient seen: Nov 21, 2017 Constitutional: Denies: no symptoms, chills, diaphoresis, fever, malaise, weakness, other HEENT: Denies: no symptoms, eye pain, blurred vision, tearing, double vision, ear pain, ear discharge, nose pain, nose congestion, throat pain, throat swelling, mouth pain, mouth swelling, other Cardiovascular: Denies: no symptoms, chest pain, edema, irregular heart rate, lightheadedness, palpitations, syncope, other Respiratory: Denies: no symptoms, cough, orthopnea, shortness of breath, SOB with excertion, SOB at rest, sputum, stridor, wheezing, other Gastrointestinal/Abdominal: Denies: no symptoms, abdomen distended, abdominal pain, black stools, tarry stools, blood in stool, constipated, diarrhea, difficulty swallowing, nausea, poor appetite, poor fluid intake, rectal bleeding , vomiting, other Genitourinary: Denies: no symptoms, burning, discharge, frequency, flank pain, hematuria, incontinence, pain, urgency, other Neurologic/Psychiatric: Denies: no symptoms, anxiety, depressed, emotional problems, headache, numbness, paresthesia, pre-existing deficit, seizure, tingling, tremors, weakness, other Hematologic/Lymphatic: Reports: anemia Allergies: Coded Allergies: No Known Allergies (Verified , 05/21/06) Subjective On pain management. Leukocytosis. No acute events. Objective Last 24 Hour Vital Signs Date Time Temp Pulse Resp B/P (MAP) Pulse Ox O2 Delivery O2 Flow Rate FiO2 11/22/17 12:00 124 11/22/17 12:00 98.2 119 12 131/86 100 Nasal Cannula 2.0 98.2 11/22/17 11:23 126 24 99 Nasal Cannula 2.0 28 11/22/17 11:22 Nasal Cannula 2.0 28 11/22/17 11:22 95 Nasal Cannula 2.0 28 11/22/17 11:14 126 20 Nasal Cannula 2.0 28 11/22/17 11:14 126 20 95 Nasal Cannula 2.0 28 11/22/17 08:00 125 11/22/17 08:00 98.2 124 14 116/77 100 Nasal Cannula 2.0 98.2 11/22/17 04:00 98.1 122 20 129/74 99 Room Air 4.0 98.1 11/22/17 04:00 124 11/22/17 00:00 120 11/22/17 00:00 97.5 119 20 108/80 99 Room Air 4.0 97.5 11/21/17 20:00 131 11/21/17 20:00 98.0 72 20 110/62 100 Room Air 4.0 98.0 11/21/17 16:00 98.0 131 21 118/74 95 Room Air 4.0 98.0 11/21/17 16:00 131 Intake and Output 11/21/17 11/22/17 19:00 07:00 Intake Total 1400 ml 895 ml Output Total 0 ml Balance 1400 ml 895 ml IV Total 600 ml 895 ml Other 800 ml Output Urine Total 0 ml # Voids 3 Laboratory Tests 11/21/17 17:05: Troponin I 0.093H, Thyroid Stimulating Hormone (TSH) 0.503, Free Thyroxine 1.31 11/22/17 03:50: Troponin I 0.298H, White Blood Count 15.7H, Red Blood Count 4.23, Hemoglobin 13.0, Hematocrit 38.1, Mean Corpuscular Volume 90, Mean Corpuscular Hemoglobin 30.8, Mean Corpuscular Hemoglobin Concent 34.2, Red Cell Distribution Width 15.1H, Platelet Count 193, Mean Platelet Volume 7.4, Neutrophils (%) (Auto) 76.8H, Lymphocytes (%) (Auto) 16.5L, Monocytes (%) (Auto) 5.3, Eosinophils (%) ( Auto) 0.9, Basophils (%) (Auto) 0.5, Sodium Level 139, Potassium Level 3.5, Chloride Level 104, Carbon Dioxide Level 25, Anion Gap 10, Blood Urea Nitrogen 15, Creatinine 0.8, Estimat Glomerular Filtration Rate > 60, Glucose Level 118H , Calcium Level 10.0 Height (Feet): 5 Height (Inches): 6.00 Weight (Pounds): 129 General Appearance: no apparent distress Cardiovascular: tachycardia Respiratory/Chest: lungs clear, normal breath sounds Abdomen: normal bowel sounds, non tender Connor Bains MD Nov 22, 2017 13:19
--- NOTE | 2017-11-22 13:30 | General Progress Note ---
Assessment/Plan Assessment/Plan IMPRESSION: 1. Left lower lobe lung mass. 2. Left inferior hilar mass. 3. Left pleural base lung mass. 4. Left pleural effusion. 5. Retroperitoneal lymphadenopathy. 6. Multiple low-attenuation liver lesions. 7. Crohn disease. 8. Opioid dependence. 9. Chronic obstructive pulmonary disease. 10. History of smoking. 11. Emphysema. 12. Perianal abscess. 13. Intractable abdominal pain. 14. Status post morphine pump placement. 15. Depression. 16. Psychosis. 17. Seizure disorder. 18. Radiculopathy of lumbar region. 19. Abdominal pain. 20. Nausea and vomiting. 21. Status post exploratory laparotomy. 22. Pneumoperitoneum. 23. Inflammatory bowel disease. 24. History of elevated CEA. 25. History of lower gastrointestinal bleed. 26. Chronic pain syndrome. 27. History of small bowel obstruction. 28. Status post laparotomy x2. 29. Failure to thrive. 30. Leukocytosis. 31. Tachycardia. RECOMMENDATIONS: 1. Watch count. 2. Watch coagulopathy. 3. Paracentesis with cytology. 4. Pulmonary evaluation/followup. 5. Mediastinoscopy versus CT-guided lung biopsy. 6. The patient needs tissue diagnosis. 7. ID followup. 8. Pain control. 9. Psychiatry evaluation. 10. Skin care. 11. Nutrition. 12. Continue current treatment. 13. Discussed with staff. 14. Close followup Subjective Date patient seen: Nov 21, 2017 Constitutional: Denies: no symptoms, chills, diaphoresis, fever, malaise, weakness, other HEENT: Denies: no symptoms, eye pain, blurred vision, tearing, double vision, ear pain, ear discharge, nose pain, nose congestion, throat pain, throat swelling, mouth pain, mouth swelling, other Cardiovascular: Denies: no symptoms, chest pain, edema, irregular heart rate, lightheadedness, palpitations, syncope, other Respiratory: Denies: no symptoms, cough, orthopnea, shortness of breath, SOB with excertion, SOB at rest, sputum, stridor, wheezing, other Gastrointestinal/Abdominal: Denies: no symptoms, abdomen distended, abdominal pain, black stools, tarry stools, blood in stool, constipated, diarrhea, difficulty swallowing, nausea, poor appetite, poor fluid intake, rectal bleeding , vomiting, other Genitourinary: Denies: no symptoms, burning, discharge, frequency, flank pain, hematuria, incontinence, pain, urgency, other Neurologic/Psychiatric: Denies: no symptoms, anxiety, depressed, emotional problems, headache, numbness, paresthesia, pre-existing deficit, seizure, tingling, tremors, weakness, other Hematologic/Lymphatic: Reports: anemia Allergies: Coded Allergies: No Known Allergies (Verified , 05/21/06) Subjective On pain management. Metastatic lung mass. Tachycardia Objective Last 24 Hour Vital Signs Date Time Temp Pulse Resp B/P (MAP) Pulse Ox O2 Delivery O2 Flow Rate FiO2 11/22/17 12:00 124 11/22/17 12:00 98.2 119 12 131/86 100 Nasal Cannula 2.0 98.2 11/22/17 11:23 126 24 99 Nasal Cannula 2.0 28 11/22/17 11:22 Nasal Cannula 2.0 28 11/22/17 11:22 95 Nasal Cannula 2.0 28 11/22/17 11:14 126 20 Nasal Cannula 2.0 28 11/22/17 11:14 126 20 95 Nasal Cannula 2.0 28 11/22/17 08:00 125 11/22/17 08:00 98.2 124 14 116/77 100 Nasal Cannula 2.0 98.2 11/22/17 04:00 98.1 122 20 129/74 99 Room Air 4.0 98.1 11/22/17 04:00 124 11/22/17 00:00 120 11/22/17 00:00 97.5 119 20 108/80 99 Room Air 4.0 97.5 11/21/17 20:00 131 11/21/17 20:00 98.0 72 20 110/62 100 Room Air 4.0 98.0 11/21/17 16:00 98.0 131 21 118/74 95 Room Air 4.0 98.0 11/21/17 16:00 131 Intake and Output 11/21/17 11/22/17 19:00 07:00 Intake Total 1400 ml 895 ml Output Total 0 ml Balance 1400 ml 895 ml IV Total 600 ml 895 ml Other 800 ml Output Urine Total 0 ml # Voids 3 Laboratory Tests 11/21/17 17:05: Troponin I 0.093H, Thyroid Stimulating Hormone (TSH) 0.503, Free Thyroxine 1.31 11/22/17 03:50: Troponin I 0.298H, White Blood Count 15.7H, Red Blood Count 4.23, Hemoglobin 13.0, Hematocrit 38.1, Mean Corpuscular Volume 90, Mean Corpuscular Hemoglobin 30.8, Mean Corpuscular Hemoglobin Concent 34.2, Red Cell Distribution Width 15.1H, Platelet Count 193, Mean Platelet Volume 7.4, Neutrophils (%) (Auto) 76.8H, Lymphocytes (%) (Auto) 16.5L, Monocytes (%) (Auto) 5.3, Eosinophils (%) ( Auto) 0.9, Basophils (%) (Auto) 0.5, Sodium Level 139, Potassium Level 3.5, Chloride Level 104, Carbon Dioxide Level 25, Anion Gap 10, Blood Urea Nitrogen 15, Creatinine 0.8, Estimat Glomerular Filtration Rate > 60, Glucose Level 118H , Calcium Level 10.0 Height (Feet): 5 Height (Inches): 6.00 Weight (Pounds): 129 General Appearance: lethargic Neck: supple Cardiovascular: tachycardia Respiratory/Chest: decreased breath sounds Connor Bains MD Nov 22, 2017 13:30
--- NOTE | 2017-11-22 13:39 | Diagnostic Imaging Report ---
Indication: Shortness of breath Technique: XRAY Chest 1v Comparison: 11/12/2017;CT chest 11/17/2017 Findings: There is significant interval worsening of aeration compared to the prior exam of 11/12/2017 with bilateral interstitial opacification/edema and patchy bilateral airspace opacities. There are bilateral masslike opacities in the hilar regions consistent with those seen on CT. There is volume loss of the left ureter there is no pneumothorax. A PICC line is in place with its catheter tip the region of the cavoatrial junction. No acute osseous abnormality is seen. There is surgical mesh material partially visualized in the upper abdomen. IMPRESSION: Significant worsening of aeration compared to the prior exam with increased interstitial and patchy bilateral airspace opacities, also related to development of fluid overload/pulmonary edema. Additional alveolar filling processes such as multifocal pneumonia not excluded. Clinical correlation and follow-up exam recommended
--- NOTE | 2017-11-22 14:46 | General Surgery Progress Note ---
General Surgery-Progress Note Subjective Additional Comments no acute events. comfortable Objective Last 24 Hour Vital Signs Date Time Temp Pulse Resp B/P (MAP) Pulse Ox O2 Delivery O2 Flow Rate FiO2 11/22/17 12:00 124 11/22/17 12:00 98.2 119 12 131/86 100 Nasal Cannula 2.0 98.2 11/22/17 11:23 126 24 99 Nasal Cannula 2.0 28 11/22/17 11:22 Nasal Cannula 2.0 28 11/22/17 11:22 95 Nasal Cannula 2.0 28 11/22/17 11:14 126 20 Nasal Cannula 2.0 28 11/22/17 11:14 126 20 95 Nasal Cannula 2.0 28 11/22/17 08:00 125 11/22/17 08:00 98.2 124 14 116/77 100 Nasal Cannula 2.0 98.2 11/22/17 04:00 98.1 122 20 129/74 99 Room Air 4.0 98.1 11/22/17 04:00 124 11/22/17 00:00 120 11/22/17 00:00 97.5 119 20 108/80 99 Room Air 4.0 97.5 11/21/17 20:00 131 11/21/17 20:00 98.0 72 20 110/62 100 Room Air 4.0 98.0 11/21/17 16:00 98.0 131 21 118/74 95 Room Air 4.0 98.0 11/21/17 16:00 131 I&O Intake and Output 11/21/17 11/22/17 19:00 07:00 Intake Total 1400 ml 895 ml Output Total 0 ml Balance 1400 ml 895 ml IV Total 600 ml 895 ml Other 800 ml Output Urine Total 0 ml # Voids 3 Drains: none Cardiovascular: RSR Respiratory: clear Abdomen: soft, distended, non-tender, present bowel sounds Extremities: no edema, no tenderness, no cyanosis Laboratory Tests Test 11/21/17 17:05 11/22/17 03:50 Troponin I 0.093 ng/mL (0.000-0.056) 0.298 ng/mL (0.000-0.056) Thyroid Stimulating Hormone (TSH) 0.503 uiU/mL (0.358-3.740) Free Thyroxine 1.31 NG/DL (0.76-1.46) White Blood Count 15.7 K/UL (4.8-10.8) H Red Blood Count 4.23 M/UL (4.20-5.40) Hemoglobin 13.0 G/DL (12.0-16.0) Hematocrit 38.1 % (37.0-47.0) Mean Corpuscular Volume 90 FL (80-99) Mean Corpuscular Hemoglobin 30.8 PG (27.0-31.0) Mean Corpuscular Hemoglobin Concent 34.2 G/DL (32.0-36.0) Red Cell Distribution Width 15.1 % (11.6-14.8) H Platelet Count 193 K/UL (150-450) Mean Platelet Volume 7.4 FL (6.5-10.1) Neutrophils (%) (Auto) 76.8 % (45.0-75.0) H Lymphocytes (%) (Auto) 16.5 % (20.0-45.0) L Monocytes (%) (Auto) 5.3 % (1.0-10.0) Eosinophils (%) (Auto) 0.9 % (0.0-3.0) Basophils (%) (Auto) 0.5 % (0.0-2.0) Sodium Level 139 MMOL/L (136-145) Potassium Level 3.5 MMOL/L (3.5-5.1) Chloride Level 104 MMOL/L (98-107) Carbon Dioxide Level 25 MMOL/L (21-32) Anion Gap 10 mmol/L (5-15) Blood Urea Nitrogen 15 mg/dL (7-18) Creatinine 0.8 MG/DL (0.55-1.30) Estimat Glomerular Filtration Rate > 60 mL/min (>60) Glucose Level 118 MG/DL (74-106) H Calcium Level 10.0 MG/DL (8.5-10.1) Plan Problems: (1) Intractable abdominal pain Assessment & Plan: 66F with abdominal pain. very complex medical and surgical history. now with complex CT findings of left pleural effusion, left lower lung mass, large mediastinal and periaortic lymph nodes, new liver lesions, and air around the liver. unable to tell if bowel loop (possible blind end from prior surgery) noted in right upper quadrant above liver or if abscess or if free air. exam not consistent with perforation and no significant free fluid noted on CT or area of perforation. contrast into distal bowel without leak. initial leukocytosis resolved. low grade persistent fevers. recent cough. unfortunately no clear explanation as to patients current condition. lung mass , effusion, new liver masses, and nodes very concerning for malignant process. Exam stable compared to prior exams (patient seen during last admission and known to me). will need much more extensive work up. I discussed these findings with patient. I explained possible need for urgent surgery but given history and complex surgical history we will monitor clinically first. if declines will proceed with surgery which is VERY high risk in her. if stable will continue with work up. patient and partner express understand and agree with plan. s/p thoracentesis 11/12. malignant non small cell cancer CT reviewed. Path reviewed Discussed with patient d/c planning. comfort care -regular diet -monitor exam clinically -trend labs -iv abx -will follow with recs. thank you for this consultation. Wolf Quan Nov 22, 2017 14:46
[2017-11-22] MEDS: Levalbuterol Inh UD 1.25mg/0.5ml HHN SCH ×3 (15:44→23:51)
--- NOTE | 2017-11-22 16:19 | Infectious Diseases Prog Note ---
Assessment/Plan Assessment/Plan ASSESSMENT: The patient is a 66-year-old female with, Low-grade fever. probable due to SBO ,resolved Leukocytosis, mild- recurrent- ?2ry to possible malignancy Probable small bowel obstruction Recent history of polymicrobial gram-negative bacteremia including Stenotrophomonas maltophilia and Enterobacter. History of Aggie esophagitis. History of C. difficile in the past. Air anterior to the liver , ? free intraperitoneal air ( Surg doubt perforation ) Lung and liver masses Ro Malignancy CT: Pleural-based mass at the left lung base / Moderate-sized left pleural effusion, left-sided pleural nodularity and retroperitoneal and paraspinal nodules/masses. Left inferior hilar mass lesion partially visualized. New low- attenuation liver lesion ( concerning for malignancy/metastatic disease ) Pl effusion SP ultrasound-guided thoracentesis, 960 cc ( m/l 2/2 mets, no evid of Empyema ) -exudate fluid: WBC 613 (n 6), pH 8, lguc 98, prot 4.6 (serum 8.4); cx stain: GRAM STAIN Final GRAM STAIN RESULT FEW WHITE BLOOD CELLS NO ORGANISMS SEEN cx negative prelime cytology report: malignant non-small cells in the pleural cavity. Crohn's disease. History of bowel obstruction x2 with lysis of adhesions in 2004. COPD. History of chronic pain syndrome, on morphine pump. CVA in 2004. Seizure disorder. PLAN: cont to monitor off abx -4/25 SP Zosyn #5 Monitor CBC and BMP. follow GI recommendations hem, surg f/u planf for comfort care Subjective Allergies: Coded Allergies: No Known Allergies (Verified , 05/21/06) Subjective afebrile leukocytosis Objective Vital Signs Last 24 Hour Vital Signs Date Time Temp Pulse Resp B/P (MAP) Pulse Ox O2 Delivery O2 Flow Rate FiO2 11/22/17 15:56 125 20 96 Nasal Cannula 2.0 28 11/22/17 15:44 124 16 94 Nasal Cannula 2.0 28 11/22/17 12:00 124 11/22/17 12:00 98.2 119 12 131/86 100 Nasal Cannula 2.0 98.2 11/22/17 11:23 126 24 99 Nasal Cannula 2.0 28 11/22/17 11:22 Nasal Cannula 2.0 28 11/22/17 11:22 95 Nasal Cannula 2.0 28 4/30/18 11:14 126 20 Nasal Cannula 2.0 28 11/22/17 11:14 126 20 95 Nasal Cannula 2.0 28 11/22/17 08:00 125 11/22/17 08:00 98.2 124 14 116/77 100 Nasal Cannula 2.0 98.2 11/22/17 04:00 98.1 122 20 129/74 99 Room Air 4.0 98.1 11/22/17 04:00 124 11/22/17 00:00 120 11/22/17 00:00 97.5 119 20 108/80 99 Room Air 4.0 97.5 11/21/17 20:00 131 11/21/17 20:00 98.0 72 20 110/62 100 Room Air 4.0 98.0 Height (Feet): 5 Height (Inches): 6.00 Weight (Pounds): 129 Objective HEENT: anicteric Respiratory/Chest: normal breath sounds Cardiovascular: regular rhythm Abdomen: tender Laboratory Tests Test 11/21/17 17:05 11/22/17 03:50 Troponin I 0.093 ng/mL (0.000-0.056) 0.298 ng/mL (0.000-0.056) Thyroid Stimulating Hormone (TSH) 0.503 uiU/mL (0.358-3.740) Free Thyroxine 1.31 NG/DL (0.76-1.46) White Blood Count 15.7 K/UL (4.8-10.8) H Red Blood Count 4.23 M/UL (4.20-5.40) Hemoglobin 13.0 G/DL (12.0-16.0) Hematocrit 38.1 % (37.0-47.0) Mean Corpuscular Volume 90 FL (80-99) Mean Corpuscular Hemoglobin 30.8 PG (27.0-31.0) Mean Corpuscular Hemoglobin Concent 34.2 G/DL (32.0-36.0) Red Cell Distribution Width 15.1 % (11.6-14.8) H Platelet Count 193 K/UL (150-450) Mean Platelet Volume 7.4 FL (6.5-10.1) Neutrophils (%) (Auto) 76.8 % (45.0-75.0) H Lymphocytes (%) (Auto) 16.5 % (20.0-45.0) L Monocytes (%) (Auto) 5.3 % (1.0-10.0) Eosinophils (%) (Auto) 0.9 % (0.0-3.0) Basophils (%) (Auto) 0.5 % (0.0-2.0) Sodium Level 139 MMOL/L (136-145) Potassium Level 3.5 MMOL/L (3.5-5.1) Chloride Level 104 MMOL/L (98-107) Carbon Dioxide Level 25 MMOL/L (21-32) Anion Gap 10 mmol/L (5-15) Blood Urea Nitrogen 15 mg/dL (7-18) Creatinine 0.8 MG/DL (0.55-1.30) Estimat Glomerular Filtration Rate > 60 mL/min (>60) Glucose Level 118 MG/DL (74-106) H Calcium Level 10.0 MG/DL (8.5-10.1) Current Medications Medications (Trade) Dose Ordered Sig/Vaibhav Route PRN Reason Start Time Stop Time Status Last Admin Dose Admin Acetaminophen (Tylenol) 650 mg Q4H PRN ORAL fever (temp>100.5F) 11/21/17 11:30 12/11/17 15:29 Acetaminophen/ Hydrocodone Bitart ([place] 10/325) 1 tab Q4H PRN ORAL Pain Scale (3-5) 11/21/17 10:45 11/25/17 08:29 Al Hydroxide/Mg Hydroxide (Mylanta II) 30 ml Q6H PRN ORAL dyspepsia 11/21/17 11:00 12/11/17 10:59 Atorvastatin Calcium (Lipitor) 40 mg BEDTIME ORAL 11/21/17 21:00 12/11/17 20:59 11/21/17 20:41 Bupropion HCl (Wellbutrin) 100 mg DAILY ORAL 11/22/17 09:00 12/12/17 08:59 11/22/17 09:30 Chlorhexidine Gluconate (Leah-Hex 2%) 1 applic DAILY@2000 TOPIC 11/21/17 20:00 12/17/17 19:59 11/21/17 20:40 Dextrose (Dextrose 50%) 50 ml STAT PRN IV Hypoglycemia BS<60mg/dL 11/21/17 11:00 12/11/17 10:59 Dextrose/Sodium Chloride 1,000 ml @ 75 mls/hr [id number] IV 11/21/17 11:00 12/11/17 10:59 11/22/17 13:40 Diphenhydramine HCl (Benadryl) 25 mg Q6H PRN ORAL Itching/Pruritis 11/21/17 11:00 12/11/17 10:59 Duloxetine HCl (Cymbalta) 90 mg DAILY ORAL 11/22/17 09:00 12/12/17 08:59 11/22/17 09:29 Furosemide (Lasix) 40 mg EVERY 8 HOURS IV 11/22/17 22:00 12/22/17 21:59 Gabapentin (Neurontin) 300 mg THREE TIMES A DAY ORAL 11/21/17 13:00 12/12/17 09:59 11/22/17 13:40 Heparin Sodium (Porcine) (Heparin 5000 units/ml) 5,000 units EVERY 12 HOURS SUBQ 11/21/17 21:00 12/11/17 20:59 11/21/17 20:42 Hydromorphone HCl (Dilaudid) 0.5 mg Q4H PRN IVP PAIN SCALE 4-10 11/21/17 11:00 11/25/17 10:59 11/21/17 11:57 Levalbuterol HCl (Xopenex) 0.625 mg Q4HRT HHN 11/22/17 15:00 11/27/17 14:59 11/22/17 15:44 Levetiracetam (Keppra) 1,000 mg Q8H ORAL 11/21/17 16:00 12/16/17 07:59 11/22/17 08:33 Levothyroxine Sodium (Synthroid) 75 mcg ACBREAKFAST ORAL 11/22/17 06:30 12/12/17 06:29 11/22/17 05:38 Methylnaltrexone [place] (Relistor) 12 mg DAILY SUBQ 11/22/17 09:00 12/12/17 10:14 11/22/17 09:37 Metoclopramide HCl (Reglan) 10 mg Q6H PRN IVP Unrelieved Severe Nausea 11/21/17 11:00 12/11/17 10:59 Nitroglycerin (Ntg) 0.4 mg Q5M X 3 DOSES PRN SL Prn Chest Pain 11/21/17 11:00 12/11/17 10:59 Ondansetron HCl (Zofran) 4 mg Q6H PRN IVP Nausea & Vomiting 11/21/17 11:00 12/11/17 10:59 Pantoprazole (Protonix) 40 mg DAILY ORAL 11/22/17 09:00 12/15/17 08:59 11/22/17 09:29 Polyethylene Glycol (Miralax) 17 gm HSPRN PRN ORAL Constipation 11/21/17 11:00 12/11/17 10:59 Promethazine HCl 25 mg/Dextrose 56 ml @ 110 mls/hr Q6H PRN IV Refractory N/V 11/21/17 11:00 12/11/17 10:59 Simethicone (Mylicon) 80 mg QIDPRN PRN ORAL gas 11/21/17 11:00 12/12/17 10:59 Theophylline (Erwin-Dur) 100 mg Q12HR ORAL 11/21/17 21:00 12/11/17 20:59 11/22/17 09:29 Topiramate (Topamax) 25 mg EVERY 12 HOURS ORAL 11/21/17 21:00 12/11/17 20:59 11/22/17 09:30 Trazodone HCl (Desyrel) 200 mg BEDTIME ORAL 11/21/17 21:00 12/11/17 20:59 11/21/17 20:41 Kathleen Lafleur M.D. Nov 22, 2017 16:19
[2017-11-22] MEDS ORDERED: Nitroglycerin Subl 0.4mg tab SL PRN ×2 (20:30→23:00)
[2017-11-22] MEDS ORDERED: Miralax 17gm pkt ORAL PRN (20:30)
[2017-11-22] MEDS ORDERED: Mylanta II UD 30ml ORAL PRN (20:30)
[2017-11-22] MEDS ORDERED: Simethicone 80mg tab ORAL PRN (20:30)
[2017-11-22] MEDS ORDERED: Metoclopramide 10mg/2ml Inj IVP PRN (20:30)
[2017-11-22] MEDS ORDERED: Topiramate 25mg tab ORAL SCH (21:00)
[2017-11-22] MEDS ORDERED: Heparin 5000 units/ml inj SUBQ SCH (21:00)
[2017-11-22] MEDS ORDERED: TraZODone 100mg tab ORAL SCH (21:00)
[2017-11-22] MEDS ORDERED: HYDROcodone/Acetamin 10/325 tab ORAL PRN (21:00)
[2017-11-22] MEDS ORDERED: Theophylline ER 100mg ORAL SCH (21:00)
[2017-11-22] MEDS ORDERED: Promethazine HCl 25 MG in D5W 55 ML IV PRN (21:00)
[2017-11-22] MEDS ORDERED: Atorvastatin 20mg tab ORAL SCH (21:00)
--- NOTE | 2017-11-22 22:00 | Progress Note 2 Sig ---
DATE: 11/22/2017 The patient was seen by Dr. Malhotra. The intrathecal pump was interrogated. Pump was reduced from 12.5 to 11 mg per day of morphine, interrogation date is 10 days from now. Residual volume was 4.7. Winston Malhotra M.D. DEJA Gu DR: HELDER JOB#: [id number] CC: DENI
[2017-11-22] MEDS ORDERED: Levalbuterol Inh UD 1.25mg/0.5ml HHN SCH (23:00)
[2017-11-23] VITALS (24 sets, daily range): BP systolic 94–127; BP diastolic 69–89
[2017-11-23] MEDS ORDERED: HYDROcodone/Acetamin 10/325 tab ORAL PRN (01:00)
--- NOTE | 2017-11-23 01:09 | General Progress Note ---
Assessment/Plan Assessment/Plan IMPRESSION: 1. Left lower lobe lung mass. 2. Left inferior hilar mass. 3. Left pleural base lung mass. 4. Left pleural effusion. 5. Retroperitoneal lymphadenopathy. 6. Multiple low-attenuation liver lesions. 7. Crohn disease. 8. Opioid dependence. 9. Chronic obstructive pulmonary disease. 10. History of smoking. 11. Emphysema. 12. Perianal abscess. 13. Intractable abdominal pain. 14. Status post morphine pump placement. 15. Depression. 16. Psychosis. 17. Seizure disorder. 18. Radiculopathy of lumbar region. 19. Abdominal pain. 20. Nausea and vomiting. 21. Status post exploratory laparotomy. 22. Pneumoperitoneum. 23. Inflammatory bowel disease. 24. History of elevated CEA. 25. History of lower gastrointestinal bleed. 26. Chronic pain syndrome. 27. History of small bowel obstruction. 28. Status post laparotomy x2. 29. Failure to thrive. 30. Leukocytosis. 31. Tachycardia. RECOMMENDATIONS: 1. Watch count. 2. Watch coagulopathy. 3. Paracentesis with cytology. 4. Pulmonary evaluation/followup. 5. Mediastinoscopy versus CT-guided lung biopsy. 6. The patient needs tissue diagnosis. 7. ID followup. 8. Pain control. 9. Psychiatry evaluation. 10. Skin care. 11. Nutrition. 12. Continue current treatment. 13. Discussed with staff. 14. Close followup Subjective Date patient seen: Nov 22, 2017 Constitutional: Denies: no symptoms, chills, diaphoresis, fever, malaise, weakness, other HEENT: Denies: no symptoms, eye pain, blurred vision, tearing, double vision, ear pain, ear discharge, nose pain, nose congestion, throat pain, throat swelling, mouth pain, mouth swelling, other Cardiovascular: Denies: no symptoms, chest pain, edema, irregular heart rate, lightheadedness, palpitations, syncope, other Respiratory: Denies: no symptoms, cough, orthopnea, shortness of breath, SOB with excertion, SOB at rest, sputum, stridor, wheezing, other Gastrointestinal/Abdominal: Denies: no symptoms, abdomen distended, abdominal pain, black stools, tarry stools, blood in stool, constipated, diarrhea, difficulty swallowing, nausea, poor appetite, poor fluid intake, rectal bleeding , vomiting, other Genitourinary: Denies: no symptoms, burning, discharge, frequency, flank pain, hematuria, incontinence, pain, urgency, other Neurologic/Psychiatric: Denies: no symptoms, anxiety, depressed, emotional problems, headache, numbness, paresthesia, pre-existing deficit, seizure, tingling, tremors, weakness, other Endocrine: Denies: no symptoms, excessive sweating, flushing, intolerance to cold, intolerance to heat, increased hunger, increased thirst, increased urine, unexplained weight gain, unexplained weight loss, other Hematologic/Lymphatic: Reports: anemia Allergies: Coded Allergies: No Known Allergies (Verified , 05/21/06) Subjective Lethargic. Tachycardic, hypertensive. Cont. pain management. Objective Last 24 Hour Vital Signs Date Time Temp Pulse Resp B/P (MAP) Pulse Ox O2 Delivery O2 Flow Rate FiO2 11/22/17 23:59 123 19 100 Bi-pap 40 11/22/17 23:48 121 19 98 Bi-pap 40 11/22/17 23:39 98.2 120 24 99/70 96 Bi-pap 40 98.2 11/22/17 23:18 119 20 97 Facial 40 11/22/17 22:00 95.0 40 11/22/17 21:23 125 21 99 Facial 30 11/22/17 20:00 40 11/22/17 20:00 126 20 98 Nasal Cannula 2.0 28 11/22/17 20:00 98.5 127 24 141/99 96 Bi-pap 40 98.5 11/22/17 19:50 96 Nasal Cannula 2.0 28 11/22/17 19:50 Nasal Cannula 2.0 28 11/22/17 19:50 127 20 96 Nasal Cannula 2.0 28 11/22/17 19:34 128 11/22/17 16:00 98.7 122 20 144/82 100 Nasal Cannula 2.0 98.7 11/22/17 16:00 122 11/22/17 15:56 125 20 96 Nasal Cannula 2.0 28 11/22/17 15:44 124 16 94 Nasal Cannula 2.0 28 11/22/17 12:00 124 11/22/17 12:00 98.2 119 12 131/86 100 Nasal Cannula 2.0 98.2 11/22/17 11:23 126 24 99 Nasal Cannula 2.0 28 11/22/17 11:22 Nasal Cannula 2.0 28 11/22/17 11:22 95 Nasal Cannula 2.0 28 11/22/17 11:14 126 20 Nasal Cannula 2.0 28 11/22/17 11:14 126 20 95 Nasal Cannula 2.0 28 11/22/17 08:00 125 11/22/17 08:00 98.2 124 14 116/77 100 Nasal Cannula 2.0 98.2 11/22/17 04:00 98.1 122 20 129/74 99 Room Air 4.0 98.1 11/22/17 04:00 124 Intake and Output 11/22/17 11/23/17 19:00 07:00 # Voids 3 Laboratory Tests 11/22/17 03:50: White Blood Count 15.7H, Red Blood Count 4.23, Hemoglobin 13.0, Hematocrit 38.1 , Mean Corpuscular Volume 90, Mean Corpuscular Hemoglobin 30.8, Mean Corpuscular Hemoglobin Concent 34.2, Red Cell Distribution Width 15.1H, Platelet Count 193, Mean Platelet Volume 7.4, Neutrophils (%) (Auto) 76.8H, Lymphocytes (%) (Auto) 16.5L, Monocytes (%) (Auto) 5.3, Eosinophils (%) (Auto) 0.9, Basophils (%) (Auto) 0.5, Sodium Level 139, Potassium Level 3.5, Chloride Level 104, Carbon Dioxide Level 25, Anion Gap 10, Blood Urea Nitrogen 15, Creatinine 0.8, Estimat Glomerular Filtration Rate > 60, Glucose Level 118H, Calcium Level 10.0, Troponin I 0.298H 11/22/17 21:05: Arterial Blood pH 7.364, Arterial Blood Partial Pressure CO2 47.4H, Arterial Blood Partial Pressure O2 50.4L, Arterial Blood HCO3 26.4H, Arterial Blood Oxygen Saturation 82.5L, Arterial Blood Base Excess 0.5, Zeyad Test Positive Height (Feet): 5 Height (Inches): 6.00 Weight (Pounds): 129 General Appearance: lethargic Cardiovascular: tachycardia Respiratory/Chest: decreased breath sounds Edema: mild edema Connor Bains MD November 23, 2017 01:09
[2017-11-23] MEDS ORDERED: Metoclopramide 10mg/2ml Inj IVP PRN (02:30)
[2017-11-23] MEDS ORDERED: Mylanta II UD 30ml ORAL PRN (02:30)
[2017-11-23] MEDS ORDERED: Promethazine HCl 25 MG in D5W 55 ML IV PRN (03:00)
[2017-11-23] MEDS: Levalbuterol Inh UD 1.25mg/0.5ml HHN SCH ×6 (03:12→23:00)
[2017-11-23 05:24] LABS: BASOPHILS % (AUTO) 0.4 % (0.0-2.0); EOSINOPHILS % (AUTO) 1.7 % (0.0-3.0); HEMOGLOBIN 13.4 G/DL (12.0-16.0); LYMPHOCYTES % (AUTO) 14.6 % (20.0-45.0); MEAN CORPUSCULAR VOLUME 90 FL (80-99); MONOCYTES % (AUTO) 3.3 % (1.0-10.0); PLATELET COUNT 198 K/UL (150-450); RED BLOOD COUNT 4.69 M/UL (4.20-5.40); WHITE BLOOD COUNT 14.1 K/UL (4.8-10.8)
[2017-11-23 05:33] LABS: ALANINE AMINOTRANSFERASE 30 U/L (12-78); ALBUMIN 1.7 G/DL (3.4-5.0); ALBUMIN/GLOBULIN RATIO 0.3 (1.0-2.7); ALKALINE PHOSPHATASE 151 U/L (46-116); ANION GAP 13 mmol/L (5-15); ASPARTATE AMINO TRANSFERASE 84 U/L (15-37); BILIRUBIN,TOTAL 0.3 MG/DL (0.2-1.0); BLOOD UREA NITROGEN 18 mg/dL (7-18); CARBON DIOXIDE 26 MMOL/L (21-32); CHLORIDE 102 MMOL/L (98-107); CREATININE 0.8 MG/DL (0.55-1.30); POTASSIUM 3.7 MMOL/L (3.5-5.1); SODIUM 141 MMOL/L (136-145)
[2017-11-23 06:11] LABS: PHOSPHORUS 4.6 MG/DL (2.5-4.9)
[2017-11-23] MEDS ORDERED: DULoxetine 30mg cap ORAL SCH (09:00)
[2017-11-23] MEDS ORDERED: Relistor 12mg/0.6ml Vial SUBQ SCH (09:00)
--- NOTE | 2017-11-23 09:01 | General Progress Note ---
Assessment/Plan Assessment/Plan (1) Chronic abdominal pain (2) Chronic pancreatitis (3) Crohn's disease (4) Herniated nucleus pulposus, lumbar (5) Lumbar spondylosis (6) Radiculopathy of lumbar region (7) Lung mass Pt will be continued on Neurontin, Dilaudid and [place] and pt has intrathecal pump. HOLD OPIOIDS FOR OVERSEDATION OR SBP<90 OR DBP<60 OR O2SAT<92% OR RR<12 Pt was d/w Dr. Malhotra and he concurred. Subjective Date patient seen: November 23, 2017 Time patient seen: 07:00 - am ROS Limited/Unobtainable: No Allergies: Coded Allergies: No Known Allergies (Verified , 05/21/06) Subjective Patient was transferred to ICU while she was being seen by Dr. Malhotra. Patient is severely weak, tachycardic and having trouble with breathing now on Bipap. No signs of pain. Objective Last 24 Hour Vital Signs Date Time Temp Pulse Resp B/P (MAP) Pulse Ox O2 Delivery O2 Flow Rate FiO2 11/23/17 07:09 131 20 100 Bi-pap 40 11/23/17 06:59 Bi-pap 40 11/23/17 06:59 129 20 100 Bi-pap 40 11/23/17 06:59 100 Bi-pap 40 11/23/17 06:59 129 22 100 Facial 40 11/23/17 06:00 130 16 101/72 100 Bi-pap 40 11/23/17 05:19 133 20 100 Facial 40 11/23/17 05:00 135 16 100/75 100 Bi-pap 40 11/23/17 04:00 97.8 135 16 94/75 100 Bi-pap 40 97.8 11/23/17 04:00 40 11/23/17 04:00 130 11/23/17 03:22 133 17 100 Bi-pap 40 11/23/17 03:12 131 18 98 Bi-pap 40 11/23/17 03:11 131 18 98 Facial 40 11/23/17 03:00 135 18 120/87 99 Bi-pap 40 11/23/17 02:00 133 18 112/75 99 Bi-pap 40 11/23/17 01:22 127 19 99 Facial 40 11/23/17 01:00 128 18 112/89 99 Bi-pap 40 11/23/17 00:00 124 18 106/69 99 Bi-pap 40 11/23/17 00:00 127 11/22/17 23:59 123 19 100 Bi-pap 40 11/22/17 23:48 121 19 98 Bi-pap 40 11/22/17 23:39 98.2 120 24 99/70 96 Bi-pap 40 98.2 11/22/17 23:18 119 20 97 Facial 40 11/22/17 22:00 95.0 40 11/22/17 21:23 125 21 99 Facial 30 11/22/17 20:00 40 11/22/17 20:00 126 20 98 Nasal Cannula 2.0 28 11/22/17 20:00 98.5 127 24 141/99 96 Bi-pap 40 98.5 11/22/17 19:50 96 Nasal Cannula 2.0 28 11/22/17 19:50 Nasal Cannula 2.0 28 11/22/17 19:50 127 20 96 Nasal Cannula 2.0 28 11/22/17 19:34 128 11/22/17 16:00 98.7 122 20 144/82 100 Nasal Cannula 2.0 98.7 11/22/17 16:00 122 11/22/17 15:56 125 20 96 Nasal Cannula 2.0 28 11/22/17 15:44 124 16 94 Nasal Cannula 2.0 28 11/22/17 12:00 124 11/22/17 12:00 98.2 119 12 131/86 100 Nasal Cannula 2.0 98.2 11/22/17 11:23 126 24 99 Nasal Cannula 2.0 28 11/22/17 11:22 Nasal Cannula 2.0 28 11/22/17 11:22 95 Nasal Cannula 2.0 28 11/22/17 11:14 126 20 Nasal Cannula 2.0 28 11/22/17 11:14 126 20 95 Nasal Cannula 2.0 28 Intake and Output 11/22/17 11/23/17 19:00 07:00 Output Total 260 ml Balance -260 ml Output Urine Total 260 ml Stool Total 0 ml # Voids 3 4 Laboratory Tests 11/22/17 21:05: Arterial Blood pH 7.364, Arterial Blood Partial Pressure CO2 47.4H, Arterial Blood Partial Pressure O2 50.4L, Arterial Blood HCO3 26.4H, Arterial Blood Oxygen Saturation 82.5L, Arterial Blood Base Excess 0.5, Zeyad Test Positive 11/23/17 04:00: White Blood Count 14.1H, Red Blood Count 4.69, Hemoglobin 13.4, Hematocrit 42.0 , Mean Corpuscular Volume 90, Mean Corpuscular Hemoglobin 28.6, Mean Corpuscular Hemoglobin Concent 31.9L, Red Cell Distribution Width 15.0H, Platelet Count 198, Mean Platelet Volume 7.6, Neutrophils (%) (Auto) 80.0H, Lymphocytes (%) (Auto) 14.6L, Monocytes (%) (Auto) 3.3, Eosinophils (%) (Auto) 1.7, Basophils (%) (Auto) 0.4, Sodium Level 141, Potassium Level 3.7, Chloride Level 102, Carbon Dioxide Level 26, Anion Gap 13, Blood Urea Nitrogen 18, Creatinine 0.8, Estimat Glomerular Filtration Rate > 60, Glucose Level 96, Calcium Level 10.0, Phosphorus Level 4.6, Magnesium Level 1.3L, Total Bilirubin 0.3, Aspartate Amino Transf (AST/SGOT) 84H, Alanine Aminotransferase (ALT/SGPT) 30, Alkaline Phosphatase 151H, Total Protein 8.4H, Albumin 1.7L, Globulin 6.7, Albumin/Globulin Ratio 0.3L 11/23/17 08:05: Arterial Blood pH 7.423, Arterial Blood Partial Pressure CO2 40.8, Arterial Blood Partial Pressure O2 59.9L, Arterial Blood HCO3 26.0, Arterial Blood Oxygen Saturation 89.7L, Arterial Blood Base Excess 1.5, Zeyad Test Positive Height (Feet): 5 Height (Inches): 6.00 Weight (Pounds): 129 Objective General Appearance: on Bipap Neck: normal alignment, supple Cardiovascular: tachycardic Respiratory/Chest: decreased breath sounds Abdomen: tender, distended, intrathecal pump palpated Extremities: non-tender Edema: no edema noted JOSE ARREDONDO November 23, 2017 09:01
[2017-11-23] MEDS: DULoxetine 30mg cap ORAL SCH (09:06)
[2017-11-23] MEDS: Topiramate 25mg tab ORAL SCH ×2 (09:06→20:58)
[2017-11-23] MEDS: Theophylline ER 100mg ORAL SCH ×2 (09:06→20:57)
[2017-11-23] MEDS: Relistor 12mg/0.6ml Vial SUBQ SCH (09:07)
[2017-11-23] MEDS: Heparin 5000 units/ml inj SUBQ SCH ×2 (09:08→21:02)
[2017-11-23] MEDS ORDERED: D5 1/2NS 1000ml IV ONE (09:20)
--- NOTE | 2017-11-23 10:03 | Pulmonolgy Critical Care Note ---
Critical Care - Asmt/Plan Problems: (1) Acute respiratory failure (2) Malignant pleural effusion (3) Metastatic cancer (4) Lung mass (5) COPD (chronic obstructive pulmonary disease) Respiratory: monitor respiratory rate, adjust FIO2, CXR, ABG, other - change to high flow NC Cardiac: continue to monitor HR/BP Renal: F/U I&O, keep IV fluid, other - continue diuresis Infectious Disease: check cultures Endocrine: continue sliding scale insulin Hematologic: monitor H/H Neurologic: PRN Ativan, PRN Morphine, keep patient comfortable Prophylaxis: Protonix, Heparin Notes Reviewed: cardio Discussed with: nurses, consultants Critical Care - Objective Last 24 Hour Vital Signs Date Time Temp Pulse Resp B/P (MAP) Pulse Ox O2 Delivery O2 Flow Rate FiO2 11/23/17 09:29 133 23 99 Facial 40 11/23/17 07:09 131 20 100 Bi-pap 40 11/23/17 06:59 Bi-pap 40 11/23/17 06:59 129 20 100 Bi-pap 40 11/23/17 06:59 100 Bi-pap 40 11/23/17 06:59 129 22 100 Facial 40 11/23/17 06:00 130 16 101/72 100 Bi-pap 40 11/23/17 05:19 133 20 100 Facial 40 11/23/17 05:00 135 16 100/75 100 Bi-pap 40 11/23/17 04:00 97.8 135 16 94/75 100 Bi-pap 40 97.8 11/23/17 04:00 40 11/23/17 04:00 130 11/23/17 03:22 133 17 100 Bi-pap 40 11/23/17 03:12 131 18 98 Bi-pap 40 11/23/17 03:11 131 18 98 Facial 40 11/23/17 03:00 135 18 120/87 99 Bi-pap 40 11/23/17 02:00 133 18 112/75 99 Bi-pap 40 11/23/17 01:22 127 19 99 Facial 40 11/23/17 01:00 128 18 112/89 99 Bi-pap 40 11/23/17 00:00 124 18 106/69 99 Bi-pap 40 11/23/17 00:00 127 11/22/17 23:59 123 19 100 Bi-pap 40 11/22/17 23:48 121 19 98 Bi-pap 40 11/22/17 23:39 98.2 120 24 99/70 96 Bi-pap 40 98.2 11/22/17 23:18 119 20 97 Facial 40 11/22/17 22:00 95.0 40 11/22/17 21:23 125 21 99 Facial 30 11/22/17 20:00 40 11/22/17 20:00 126 20 98 Nasal Cannula 2.0 28 11/22/17 20:00 98.5 127 24 141/99 96 Bi-pap 40 98.5 11/22/17 19:50 96 Nasal Cannula 2.0 28 11/22/17 19:50 Nasal Cannula 2.0 28 11/22/17 19:50 127 20 96 Nasal Cannula 2.0 28 11/22/17 19:34 128 11/22/17 16:00 98.7 122 20 144/82 100 Nasal Cannula 2.0 98.7 11/22/17 16:00 122 11/22/17 15:56 125 20 96 Nasal Cannula 2.0 28 11/22/17 15:44 124 16 94 Nasal Cannula 2.0 28 11/22/17 12:00 124 11/22/17 12:00 98.2 119 12 131/86 100 Nasal Cannula 2.0 98.2 11/22/17 11:23 126 24 99 Nasal Cannula 2.0 28 11/22/17 11:22 Nasal Cannula 2.0 28 11/22/17 11:22 95 Nasal Cannula 2.0 28 11/22/17 11:14 126 20 Nasal Cannula 2.0 28 11/22/17 11:14 126 20 95 Nasal Cannula 2.0 28 Status: awake Condition: critical HEENT: atraumatic Neck: full ROM Lungs: clear Heart: HR/BP stable Abdomen: soft, non-tender Extremities: no C/C/E Critical Care - Subjective ROS Limited/Unobtainable: Yes ICU Day: 2 Intubation Day: on BIPAP FI02: 40 Vent Support Mode: CPAP Sputum Amount: None Fluids: KVO I&O: Intake and Output 11/22/17 11/23/17 19:00 07:00 Output Total 260 ml Balance -260 ml Output Urine Total 260 ml Stool Total 0 ml # Voids 3 4 CXR: less pulmonary edema Labs: Laboratory Tests Test 11/22/17 21:05 11/23/17 04:00 11/23/17 08:05 Arterial Blood pH 7.364 (7.350-7.450) 7.423 (7.350-7.450) Arterial Blood Partial Pressure CO2 47.4 mmHg (35.0-45.0) H 40.8 mmHg (35.0-45.0) Arterial Blood Partial Pressure O2 50.4 mmHg (75.0-100.0) L 59.9 mmHg (75.0-100.0) L Arterial Blood HCO3 26.4 mmol/L (22.0-26.0) H 26.0 mmol/L (22.0-26.0) Arterial Blood Oxygen Saturation 82.5 % (92.0-98.0) L 89.7 % (92.0-98.0) L Arterial Blood Base Excess 0.5 1.5 Zeyad Test Positive Positive White Blood Count 14.1 K/UL (4.8-10.8) H Red Blood Count 4.69 M/UL (4.20-5.40) Hemoglobin 13.4 G/DL (12.0-16.0) Hematocrit 42.0 % (37.0-47.0) Mean Corpuscular Volume 90 FL (80-99) Mean Corpuscular Hemoglobin 28.6 PG (27.0-31.0) Mean Corpuscular Hemoglobin Concent 31.9 G/DL (32.0-36.0) L Red Cell Distribution Width 15.0 % (11.6-14.8) H Platelet Count 198 K/UL (150-450) Mean Platelet Volume 7.6 FL (6.5-10.1) Neutrophils (%) (Auto) 80.0 % (45.0-75.0) H Lymphocytes (%) (Auto) 14.6 % (20.0-45.0) L Monocytes (%) (Auto) 3.3 % (1.0-10.0) Eosinophils (%) (Auto) 1.7 % (0.0-3.0) Basophils (%) (Auto) 0.4 % (0.0-2.0) Sodium Level 141 MMOL/L (136-145) Potassium Level 3.7 MMOL/L (3.5-5.1) Chloride Level 102 MMOL/L (98-107) Carbon Dioxide Level 26 MMOL/L (21-32) Anion Gap 13 mmol/L (5-15) Blood Urea Nitrogen 18 mg/dL (7-18) Creatinine 0.8 MG/DL (0.55-1.30) Estimat Glomerular Filtration Rate > 60 mL/min (>60) Glucose Level 96 MG/DL (74-106) Calcium Level 10.0 MG/DL (8.5-10.1) Phosphorus Level 4.6 MG/DL (2.5-4.9) Magnesium Level 1.3 MG/DL (1.8-2.4) L Total Bilirubin 0.3 MG/DL (0.2-1.0) Aspartate Amino Transf (AST/SGOT) 84 U/L (15-37) H Alanine Aminotransferase (ALT/SGPT) 30 U/L (12-78) Alkaline Phosphatase 151 U/L (46-116) H Total Protein 8.4 G/DL (6.4-8.2) H Albumin 1.7 G/DL (3.4-5.0) L Globulin 6.7 g/dL Albumin/Globulin Ratio 0.3 (1.0-2.7) L Rob Wagner MD November 23, 2017 10:03
--- NOTE | 2017-11-23 11:44 | Diagnostic Imaging Report ---
Indication: Dyspnea Comparison: 11/22/2017 A single view chest radiograph was obtained. Findings: Interstitial and alveolar airspace disease demonstrated and fairly extensive within both lung davalos unchanged accounting for slightly better and more inflated appearing lungs currently. PICC line is stable. Heart size is stable. IMPRESSION: Extensive mixed interstitial alveolar airspace disease bilaterally unchanged
--- NOTE | 2017-11-23 12:05 | Infectious Diseases Prog Note ---
Assessment/Plan Assessment/Plan ASSESSMENT: The patient is a 66-year-old female with, Lethargy, on Bipap- improvnig- ?oversedation -CXR;Extensive mixed interstitial alveolar airspace disease bilaterally unchanged Low-grade fever. probable due to SBO ,resolved Leukocytosis, mild- recurrent- ?2ry to possible malignancy Probable small bowel obstruction Recent history of polymicrobial gram-negative bacteremia including Stenotrophomonas maltophilia and Enterobacter. History of Aggie esophagitis. History of C. difficile in the past. Air anterior to the liver , ? free intraperitoneal air ( Surg doubt perforation ) Lung and liver masses Ro Malignancy CT: Pleural-based mass at the left lung base / Moderate-sized left pleural effusion, left-sided pleural nodularity and retroperitoneal and paraspinal nodules/masses. Left inferior hilar mass lesion partially visualized. New low- attenuation liver lesion ( concerning for malignancy/metastatic disease ) Pl effusion SP ultrasound-guided thoracentesis, 960 cc ( m/l 2/2 mets, no evid of Empyema ) -exudate fluid: WBC 613 (n 6), pH 8, lguc 98, prot 4.6 (serum 8.4); cx stain: GRAM STAIN Final GRAM STAIN RESULT FEW WHITE BLOOD CELLS NO ORGANISMS SEEN cx negative prelime cytology report: malignant non-small cells in the pleural cavity. Crohn's disease. History of bowel obstruction x2 with lysis of adhesions in 2004. COPD. History of chronic pain syndrome, on morphine pump. CVA in 2004. Seizure disorder. PLAN: cont to monitor off abx, unless febrile, worsening WBC. -11/17 SP Zosyn #5 Monitor CBC and BMP. follow GI recommendations hem, surg f/u planf for comfort care on ICU- bipap management Subjective Allergies: Coded Allergies: No Known Allergies (Verified , 05/21/06) Subjective afebrile leukocytosis stable transferred to ICU given lethargy- placed on Bipap and improving Objective Vital Signs Last 24 Hour Vital Signs Date Time Temp Pulse Resp B/P (MAP) Pulse Ox O2 Delivery O2 Flow Rate FiO2 11/23/17 11:40 132 18 100 Bi-pap 40 11/23/17 11:30 131 20 99 Facial 40 11/23/17 11:30 133 20 100 Bi-pap 40 11/23/17 10:00 129 17 96/71 96 Bi-pap 40 11/23/17 09:29 133 23 99 Facial 40 11/23/17 09:00 131 18 105/70 97 Bi-pap 40 11/23/17 08:00 40 11/23/17 08:00 98.0 135 16 102/75 96 Bi-pap 40 98.0 11/23/17 08:00 125 11/23/17 07:09 131 20 100 Bi-pap 40 11/23/17 07:00 122 18 99/72 98 Bi-pap 40 11/23/17 06:59 Bi-pap 40 11/23/17 06:59 129 20 100 Bi-pap 40 11/23/17 06:59 100 Bi-pap 40 11/23/17 06:59 129 22 100 Facial 40 11/23/17 06:00 130 16 101/72 100 Bi-pap 40 11/23/17 05:19 133 20 100 Facial 40 11/23/17 05:00 135 16 100/75 100 Bi-pap 40 11/23/17 04:00 97.8 135 16 94/75 100 Bi-pap 40 97.8 11/23/17 04:00 40 11/23/17 04:00 130 11/23/17 03:22 133 17 100 Bi-pap 40 11/23/17 03:12 131 18 98 Bi-pap 40 11/23/17 03:11 131 18 98 Facial 40 11/23/17 03:00 135 18 120/87 99 Bi-pap 40 11/23/17 02:00 133 18 112/75 99 Bi-pap 40 11/23/17 01:22 127 19 99 Facial 40 11/23/17 01:00 128 18 112/89 99 Bi-pap 40 11/23/17 00:00 124 18 106/69 99 Bi-pap 40 11/23/17 00:00 127 11/22/17 23:59 123 19 100 Bi-pap 40 11/22/17 23:48 121 19 98 Bi-pap 40 11/22/17 23:39 98.2 120 24 99/70 96 Bi-pap 40 98.2 11/22/17 23:18 119 20 97 Facial 40 11/22/17 22:00 95.0 40 11/22/17 21:23 125 21 99 Facial 30 11/22/17 20:00 40 11/22/17 20:00 126 20 98 Nasal Cannula 2.0 28 11/22/17 20:00 98.5 127 24 141/99 96 Bi-pap 40 98.5 11/22/17 19:50 96 Nasal Cannula 2.0 28 11/22/17 19:50 Nasal Cannula 2.0 28 11/22/17 19:50 127 20 96 Nasal Cannula 2.0 28 11/22/17 19:34 128 11/22/17 16:00 98.7 122 20 144/82 100 Nasal Cannula 2.0 98.7 11/22/17 16:00 122 11/22/17 15:56 125 20 96 Nasal Cannula 2.0 28 11/22/17 15:44 124 16 94 Nasal Cannula 2.0 28 11/22/17 12:00 124 11/22/17 12:00 98.2 119 12 131/86 100 Nasal Cannula 2.0 98.2 Height (Feet): 5 Height (Inches): 6.00 Weight (Pounds): 129 Objective HEENT: anicteric Respiratory/Chest: normal breath sounds Cardiovascular: regular rhythm Abdomen: tender Laboratory Tests Test 11/22/17 21:05 11/23/17 04:00 11/23/17 08:05 Arterial Blood pH 7.364 (7.350-7.450) 7.423 (7.350-7.450) Arterial Blood Partial Pressure CO2 47.4 mmHg (35.0-45.0) H 40.8 mmHg (35.0-45.0) Arterial Blood Partial Pressure O2 50.4 mmHg (75.0-100.0) L 59.9 mmHg (75.0-100.0) L Arterial Blood HCO3 26.4 mmol/L (22.0-26.0) H 26.0 mmol/L (22.0-26.0) Arterial Blood Oxygen Saturation 82.5 % (92.0-98.0) L 89.7 % (92.0-98.0) L Arterial Blood Base Excess 0.5 1.5 Zeyad Test Positive Positive White Blood Count 14.1 K/UL (4.8-10.8) H Red Blood Count 4.69 M/UL (4.20-5.40) Hemoglobin 13.4 G/DL (12.0-16.0) Hematocrit 42.0 % (37.0-47.0) Mean Corpuscular Volume 90 FL (80-99) Mean Corpuscular Hemoglobin 28.6 PG (27.0-31.0) Mean Corpuscular Hemoglobin Concent 31.9 G/DL (32.0-36.0) L Red Cell Distribution Width 15.0 % (11.6-14.8) H Platelet Count 198 K/UL (150-450) Mean Platelet Volume 7.6 FL (6.5-10.1) Neutrophils (%) (Auto) 80.0 % (45.0-75.0) H Lymphocytes (%) (Auto) 14.6 % (20.0-45.0) L Monocytes (%) (Auto) 3.3 % (1.0-10.0) Eosinophils (%) (Auto) 1.7 % (0.0-3.0) Basophils (%) (Auto) 0.4 % (0.0-2.0) Sodium Level 141 MMOL/L (136-145) Potassium Level 3.7 MMOL/L (3.5-5.1) Chloride Level 102 MMOL/L (98-107) Carbon Dioxide Level 26 MMOL/L (21-32) Anion Gap 13 mmol/L (5-15) Blood Urea Nitrogen 18 mg/dL (7-18) Creatinine 0.8 MG/DL (0.55-1.30) Estimat Glomerular Filtration Rate > 60 mL/min (>60) Glucose Level 96 MG/DL (74-106) Calcium Level 10.0 MG/DL (8.5-10.1) Phosphorus Level 4.6 MG/DL (2.5-4.9) Magnesium Level 1.3 MG/DL (1.8-2.4) L Total Bilirubin 0.3 MG/DL (0.2-1.0) Aspartate Amino Transf (AST/SGOT) 84 U/L (15-37) H Alanine Aminotransferase (ALT/SGPT) 30 U/L (12-78) Alkaline Phosphatase 151 U/L (46-116) H Total Protein 8.4 G/DL (6.4-8.2) H Albumin 1.7 G/DL (3.4-5.0) L Globulin 6.7 g/dL Albumin/Globulin Ratio 0.3 (1.0-2.7) L Current Medications Medications (Trade) Dose Ordered Sig/Vaibhav Route PRN Reason Start Time Stop Time Status Last Admin Dose Admin Acetaminophen (Tylenol) 650 mg Q4H PRN ORAL fever (temp>100.5F) 11/23/17 00:30 12/11/17 20:29 Acetaminophen/ Hydrocodone Bitart ([place] 10/325) 1 tab Q4H PRN ORAL Pain Scale (3-5) 11/23/17 01:00 11/25/17 20:59 Al Hydroxide/Mg Hydroxide (Mylanta II) 30 ml Q6H PRN ORAL dyspepsia 11/23/17 02:30 12/11/17 20:29 Atorvastatin Calcium (Lipitor) 40 mg BEDTIME ORAL 11/23/17 21:00 12/11/17 20:59 Bupropion HCl (Wellbutrin) 100 mg DAILY ORAL 11/23/17 09:00 12/12/17 08:59 11/23/17 09:06 Chlorhexidine Gluconate (Leah-Hex 2%) 1 applic DAILY@2000 TOPIC 11/23/17 20:00 12/17/17 19:59 Dextrose (Dextrose 50%) 50 ml STAT PRN IV Hypoglycemia BS<60mg/dL 11/23/17 20:30 12/22/17 20:29 Diphenhydramine HCl (Benadryl) 25 mg Q6H PRN ORAL Itching/Pruritis 11/23/17 02:30 12/11/17 20:29 Duloxetine HCl (Cymbalta) 90 mg DAILY ORAL 11/23/17 09:00 12/12/17 08:59 11/23/17 09:06 Furosemide (Lasix) 40 mg EVERY 8 HOURS IV 11/23/17 06:00 12/22/17 21:59 11/23/17 06:52 Gabapentin (Neurontin) 300 mg THREE TIMES A DAY ORAL 11/23/17 09:00 12/12/17 09:59 11/23/17 09:07 Heparin Sodium (Porcine) (Heparin 5000 units/ml) 5,000 units EVERY 12 HOURS SUBQ 11/23/17 09:00 12/11/17 20:59 11/23/17 09:08 Hydromorphone HCl (Dilaudid) 0.5 mg Q4H PRN IVP PAIN SCALE 4-10 11/23/17 01:00 11/25/17 20:59 Levalbuterol HCl (Xopenex) 0.625 mg Q4HRT HHN 11/22/17 23:00 11/27/17 14:59 11/23/17 11:30 Levetiracetam (Keppra) 1,000 mg Q8H ORAL 11/23/17 00:00 12/16/17 07:59 11/23/17 09:05 Levothyroxine Sodium (Synthroid) 75 mcg ACBREAKFAST ORAL 11/23/17 06:30 12/12/17 06:29 Methylnaltrexone Madeline (Relistor) 12 mg DAILY SUBQ 11/23/17 09:00 12/12/17 10:14 11/23/17 09:07 Metoclopramide HCl (Reglan) 10 mg Q6H PRN IVP Unrelieved Severe Nausea 11/23/17 02:30 12/11/17 20:29 Nitroglycerin (Ntg) 0.4 mg Q5M X 3 DOSES PRN SL Prn Chest Pain 11/22/17 23:00 12/11/17 10:59 Ondansetron HCl (Zofran) 4 mg Q6H PRN IVP Nausea & Vomiting 11/23/17 02:30 12/11/17 20:29 Pantoprazole (Protonix) 40 mg 0600 ORAL 11/23/17 09:00 12/23/17 08:59 11/23/17 09:06 Polyethylene Glycol (Miralax) 17 gm HSPRN PRN ORAL Constipation 11/23/17 20:30 12/22/17 20:29 Promethazine HCl 25 mg/Dextrose 56 ml @ 110 mls/hr Q6H PRN IV Refractory N/V 11/23/17 03:00 12/11/17 20:59 Simethicone (Mylicon) 80 mg QIDPRN PRN ORAL gas 11/23/17 20:30 12/22/17 20:29 Theophylline (Erwin-Dur) 100 mg Q12HR ORAL 11/23/17 09:00 12/11/17 20:59 11/23/17 09:06 Topiramate (Topamax) 25 mg EVERY 12 HOURS ORAL 11/23/17 09:00 12/11/17 20:59 11/23/17 09:06 Trazodone HCl (Desyrel) 200 mg BEDTIME ORAL 11/23/17 21:00 12/11/17 20:59 Kathleen Lafleur M.D. November 23, 2017 12:05
--- NOTE | 2017-11-23 14:07 | General Surgery Progress Note ---
General Surgery-Progress Note Subjective Additional Comments decompensated with respiratory status requiring transfer to ICU and BIPAP Objective Last 24 Hour Vital Signs Date Time Temp Pulse Resp B/P (MAP) Pulse Ox O2 Delivery O2 Flow Rate FiO2 11/23/17 12:31 135 19 100 Facial 100 11/23/17 11:40 132 18 100 Bi-pap 40 11/23/17 11:30 131 20 99 Facial 40 11/23/17 11:30 133 20 100 Bi-pap 40 11/23/17 10:00 129 17 96/71 96 Bi-pap 40 11/23/17 09:29 133 23 99 Facial 40 11/23/17 09:00 131 18 105/70 97 Bi-pap 40 11/23/17 08:00 40 11/23/17 08:00 98.0 135 16 102/75 96 Bi-pap 40 98.0 11/23/17 08:00 125 11/23/17 07:09 131 20 100 Bi-pap 40 11/23/17 07:00 122 18 99/72 98 Bi-pap 40 11/23/17 06:59 Bi-pap 40 11/23/17 06:59 129 20 100 Bi-pap 40 11/23/17 06:59 100 Bi-pap 40 11/23/17 06:59 129 22 100 Facial 40 11/23/17 06:00 130 16 101/72 100 Bi-pap 40 11/23/17 05:19 133 20 100 Facial 40 11/23/17 05:00 135 16 100/75 100 Bi-pap 40 11/23/17 04:00 97.8 135 16 94/75 100 Bi-pap 40 97.8 11/23/17 04:00 40 11/23/17 04:00 130 11/23/17 03:22 133 17 100 Bi-pap 40 11/23/17 03:12 131 18 98 Bi-pap 40 11/23/17 03:11 131 18 98 Facial 40 11/23/17 03:00 135 18 120/87 99 Bi-pap 40 11/23/17 02:00 133 18 112/75 99 Bi-pap 40 11/23/17 01:22 127 19 99 Facial 40 11/23/17 01:00 128 18 112/89 99 Bi-pap 40 11/23/17 00:00 124 18 106/69 99 Bi-pap 40 11/23/17 00:00 127 4/30/18 23:59 123 19 100 Bi-pap 40 11/22/17 23:48 121 19 98 Bi-pap 40 11/22/17 23:39 98.2 120 24 99/70 96 Bi-pap 40 98.2 11/22/17 23:18 119 20 97 Facial 40 11/22/17 22:00 95.0 40 11/22/17 21:23 125 21 99 Facial 30 11/22/17 20:00 40 11/22/17 20:00 126 20 98 Nasal Cannula 2.0 28 11/22/17 20:00 98.5 127 24 141/99 96 Bi-pap 40 98.5 11/22/17 19:50 96 Nasal Cannula 2.0 28 11/22/17 19:50 Nasal Cannula 2.0 28 11/22/17 19:50 127 20 96 Nasal Cannula 2.0 28 11/22/17 19:34 128 11/22/17 16:00 98.7 122 20 144/82 100 Nasal Cannula 2.0 98.7 11/22/17 16:00 122 11/22/17 15:56 125 20 96 Nasal Cannula 2.0 28 11/22/17 15:44 124 16 94 Nasal Cannula 2.0 28 I&O Intake and Output 11/22/17 11/23/17 19:00 07:00 Output Total 260 ml Balance -260 ml Output Urine Total 260 ml Stool Total 0 ml # Voids 3 4 Cardiovascular: RSR Respiratory: decreased breath sounds Abdomen: soft, distended, non-tender, present bowel sounds Extremities: no cyanosis Laboratory Tests Test 11/22/17 21:05 11/23/17 04:00 11/23/17 08:05 Arterial Blood pH 7.364 (7.350-7.450) 7.423 (7.350-7.450) Arterial Blood Partial Pressure CO2 47.4 mmHg (35.0-45.0) H 40.8 mmHg (35.0-45.0) Arterial Blood Partial Pressure O2 50.4 mmHg (75.0-100.0) L 59.9 mmHg (75.0-100.0) L Arterial Blood HCO3 26.4 mmol/L (22.0-26.0) H 26.0 mmol/L (22.0-26.0) Arterial Blood Oxygen Saturation 82.5 % (92.0-98.0) L 89.7 % (92.0-98.0) L Arterial Blood Base Excess 0.5 1.5 Zeyad Test Positive Positive White Blood Count 14.1 K/UL (4.8-10.8) H Red Blood Count 4.69 M/UL (4.20-5.40) Hemoglobin 13.4 G/DL (12.0-16.0) Hematocrit 42.0 % (37.0-47.0) Mean Corpuscular Volume 90 FL (80-99) Mean Corpuscular Hemoglobin 28.6 PG (27.0-31.0) Mean Corpuscular Hemoglobin Concent 31.9 G/DL (32.0-36.0) L Red Cell Distribution Width 15.0 % (11.6-14.8) H Platelet Count 198 K/UL (150-450) Mean Platelet Volume 7.6 FL (6.5-10.1) Neutrophils (%) (Auto) 80.0 % (45.0-75.0) H Lymphocytes (%) (Auto) 14.6 % (20.0-45.0) L Monocytes (%) (Auto) 3.3 % (1.0-10.0) Eosinophils (%) (Auto) 1.7 % (0.0-3.0) Basophils (%) (Auto) 0.4 % (0.0-2.0) Sodium Level 141 MMOL/L (136-145) Potassium Level 3.7 MMOL/L (3.5-5.1) Chloride Level 102 MMOL/L (98-107) Carbon Dioxide Level 26 MMOL/L (21-32) Anion Gap 13 mmol/L (5-15) Blood Urea Nitrogen 18 mg/dL (7-18) Creatinine 0.8 MG/DL (0.55-1.30) Estimat Glomerular Filtration Rate > 60 mL/min (>60) Glucose Level 96 MG/DL (74-106) Calcium Level 10.0 MG/DL (8.5-10.1) Phosphorus Level 4.6 MG/DL (2.5-4.9) Magnesium Level 1.3 MG/DL (1.8-2.4) L Total Bilirubin 0.3 MG/DL (0.2-1.0) Aspartate Amino Transf (AST/SGOT) 84 U/L (15-37) H Alanine Aminotransferase (ALT/SGPT) 30 U/L (12-78) Alkaline Phosphatase 151 U/L (46-116) H Total Protein 8.4 G/DL (6.4-8.2) H Albumin 1.7 G/DL (3.4-5.0) L Globulin 6.7 g/dL Albumin/Globulin Ratio 0.3 (1.0-2.7) L Plan Problems: (1) Intractable abdominal pain Assessment & Plan: 66F with abdominal pain. very complex medical and surgical history. now with complex CT findings of left pleural effusion, left lower lung mass, large mediastinal and periaortic lymph nodes, new liver lesions, and air around the liver. unable to tell if bowel loop (possible blind end from prior surgery) noted in right upper quadrant above liver or if abscess or if free air. exam not consistent with perforation and no significant free fluid noted on CT or area of perforation. contrast into distal bowel without leak. initial leukocytosis resolved. low grade persistent fevers. recent cough. unfortunately no clear explanation as to patients current condition. lung mass , effusion, new liver masses, and nodes very concerning for malignant process. Exam stable compared to prior exams (patient seen during last admission and known to me). will need much more extensive work up. I discussed these findings with patient. I explained possible need for urgent surgery but given history and complex surgical history we will monitor clinically first. if declines will proceed with surgery which is VERY high risk in her. if stable will continue with work up. patient and partner express understand and agree with plan. s/p thoracentesis 11/12. malignant non small cell cancer CT reviewed. Path reviewed Discussed with patient Need tissue diagnosis. unfortunately path unable to determine etiology based on cytology currently in icu and needs to stabilize prior to considerations for CT guided biopsy for tissue diagnosis. -regular diet -monitor exam clinically -trend labs -iv abx -will follow with recs. thank you for this consultation. Wolf Quan November 23, 2017 14:07
--- NOTE | 2017-11-23 14:46 | General Progress Note ---
Assessment/Plan Problem List: (1) Crohn's disease ICD Codes: K50.90 - Crohn's disease SNOMED: 84943415 Qualifiers: Qualified Codes: K50.919 - Crohn's disease, unspecified, with unspecified complications (2) Opioid dependence ICD Codes: F11.20 - Opioid dependence SNOMED: 60342412 (3) Intractable abdominal pain ICD Codes: R10.9 - Unspecified abdominal pain SNOMED: 31485136, 982157023 (4) COPD (chronic obstructive pulmonary disease) ICD Codes: J44.9 - Chronic obstructive pulmonary disease SNOMED: 05261423 (5) Shortness of breath (6) SOB (shortness of breath) ICD Codes: R06.02 - Shortness of breath SNOMED: 865639457 (7) UTI (urinary tract infection) ICD Codes: N39.0 - Urinary tract infection, site not specified SNOMED: 07042666 (8) Lung mass ICD Codes: R91.8 - Other nonspecific abnormal finding of lung field SNOMED: 297336732 (9) Tachycardia ICD Codes: R00.0 - Tachycardia, unspecified SNOMED: 7866831 Status: unchanged Assessment/Plan ot pt diet pain control sx eval cbc bmp am heme f/u cardio eval, Subjective Constitutional: Reports: weakness Allergies: Coded Allergies: No Known Allergies (Verified , 05/21/06) All Systems: reviewed and negative except above Subjective bipapa sleeping in icu Objective Last 24 Hour Vital Signs Date Time Temp Pulse Resp B/P (MAP) Pulse Ox O2 Delivery O2 Flow Rate FiO2 11/23/17 12:31 135 19 100 Facial 100 11/23/17 11:40 132 18 100 Bi-pap 40 11/23/17 11:30 131 20 99 Facial 40 11/23/17 11:30 133 20 100 Bi-pap 40 11/23/17 10:00 129 17 96/71 96 Bi-pap 40 11/23/17 09:29 133 23 99 Facial 40 11/23/17 09:00 131 18 105/70 97 Bi-pap 40 11/23/17 08:00 40 11/23/17 08:00 98.0 135 16 102/75 96 Bi-pap 40 98.0 11/23/17 08:00 125 11/23/17 07:09 131 20 100 Bi-pap 40 11/23/17 07:00 122 18 99/72 98 Bi-pap 40 11/23/17 06:59 Bi-pap 40 11/23/17 06:59 129 20 100 Bi-pap 40 11/23/17 06:59 100 Bi-pap 40 11/23/17 06:59 129 22 100 Facial 40 11/23/17 06:00 130 16 101/72 100 Bi-pap 40 11/23/17 05:19 133 20 100 Facial 40 11/23/17 05:00 135 16 100/75 100 Bi-pap 40 11/23/17 04:00 97.8 135 16 94/75 100 Bi-pap 40 97.8 11/23/17 04:00 40 11/23/17 04:00 130 11/23/17 03:22 133 17 100 Bi-pap 40 11/23/17 03:12 131 18 98 Bi-pap 40 11/23/17 03:11 131 18 98 Facial 40 11/23/17 03:00 135 18 120/87 99 Bi-pap 40 11/23/17 02:00 133 18 112/75 99 Bi-pap 40 11/23/17 01:22 127 19 99 Facial 40 11/23/17 01:00 128 18 112/89 99 Bi-pap 40 11/23/17 00:00 124 18 106/69 99 Bi-pap 40 11/23/17 00:00 127 11/22/17 23:59 123 19 100 Bi-pap 40 11/22/17 23:48 121 19 98 Bi-pap 40 11/22/17 23:39 98.2 120 24 99/70 96 Bi-pap 40 98.2 11/22/17 23:18 119 20 97 Facial 40 11/22/17 22:00 95.0 40 11/22/17 21:23 125 21 99 Facial 30 11/22/17 20:00 40 11/22/17 20:00 126 20 98 Nasal Cannula 2.0 28 11/22/17 20:00 98.5 127 24 141/99 96 Bi-pap 40 98.5 11/22/17 19:50 96 Nasal Cannula 2.0 28 11/22/17 19:50 Nasal Cannula 2.0 28 11/22/17 19:50 127 20 96 Nasal Cannula 2.0 28 11/22/17 19:34 128 11/22/17 16:00 98.7 122 20 144/82 100 Nasal Cannula 2.0 98.7 11/22/17 16:00 122 11/22/17 15:56 125 20 96 Nasal Cannula 2.0 28 11/22/17 15:44 124 16 94 Nasal Cannula 2.0 28 Intake and Output 11/22/17 11/23/17 19:00 07:00 Output Total 260 ml Balance -260 ml Output Urine Total 260 ml Stool Total 0 ml # Voids 3 4 Laboratory Tests 11/22/17 21:05: Arterial Blood pH 7.364, Arterial Blood Partial Pressure CO2 47.4H, Arterial Blood Partial Pressure O2 50.4L, Arterial Blood HCO3 26.4H, Arterial Blood Oxygen Saturation 82.5L, Arterial Blood Base Excess 0.5, Zeyad Test Positive 11/23/17 04:00: White Blood Count 14.1H, Red Blood Count 4.69, Hemoglobin 13.4, Hematocrit 42.0 , Mean Corpuscular Volume 90, Mean Corpuscular Hemoglobin 28.6, Mean Corpuscular Hemoglobin Concent 31.9L, Red Cell Distribution Width 15.0H, Platelet Count 198, Mean Platelet Volume 7.6, Neutrophils (%) (Auto) 80.0H, Lymphocytes (%) (Auto) 14.6L, Monocytes (%) (Auto) 3.3, Eosinophils (%) (Auto) 1.7, Basophils (%) (Auto) 0.4, Sodium Level 141, Potassium Level 3.7, Chloride Level 102, Carbon Dioxide Level 26, Anion Gap 13, Blood Urea Nitrogen 18, Creatinine 0.8, Estimat Glomerular Filtration Rate > 60, Glucose Level 96, Calcium Level 10.0, Phosphorus Level 4.6, Magnesium Level 1.3L, Total Bilirubin 0.3, Aspartate Amino Transf (AST/SGOT) 84H, Alanine Aminotransferase (ALT/SGPT) 30, Alkaline Phosphatase 151H, Total Protein 8.4H, Albumin 1.7L, Globulin 6.7, Albumin/Globulin Ratio 0.3L 11/23/17 08:05: Arterial Blood pH 7.423, Arterial Blood Partial Pressure CO2 40.8, Arterial Blood Partial Pressure O2 59.9L, Arterial Blood HCO3 26.0, Arterial Blood Oxygen Saturation 89.7L, Arterial Blood Base Excess 1.5, Zeyad Test Positive Height (Feet): 5 Height (Inches): 6.00 Weight (Pounds): 129 General Appearance: lethargic EENT: normal ENT inspection Neck: normal alignment Cardiovascular: normal peripheral pulses, normal rate, regular rhythm Respiratory/Chest: chest wall non-tender, decreased breath sounds Abdomen: normal bowel sounds, non tender, soft Extremities: normal inspection Edema: no edema noted Arm (L), no edema noted Arm (R), no edema noted Leg (L), no edema noted Leg (R), no edema noted Pedal (L), no edema noted Pedal (R), no edema noted Generalized Neurologic: motor weakness Skin: normal pigmentation, warm/dry BAYRON BENEDICT November 23, 2017 14:46
--- NOTE | 2017-11-23 15:22 | Cardiac Electrophysiology PN ---
Assessment/Plan Assessment/Plan 1. Sinus tachycardia with no evidence of atrial fibrillation or SVT, likely due to the patient's pain and respiratory failure. Echocardiogram showed EF 65%. ECG also sinus tach 2. Malignant pleural effusion and metastatic cancer. Follow up Dr. Wagner. S/p Left Thoracentesis on 11/12/17 Morphine pump in abdomen. On BIPAP 3. Lung mass. 4. Crohn disease and history of exploratory laparotomy, under management of Dr. Gallegos. 5. Ascites paracentesis with cytology and also awaiting mediastinoscopy versus CT-guided lung biopsy , per Dr. Bains. 6. Still full Code DW RN Subjective Subjective Altered, in ICU on BIPAP in sinus tach 130s. Objective Last 24 Hour Vital Signs Date Time Temp Pulse Resp B/P (MAP) Pulse Ox O2 Delivery O2 Flow Rate FiO2 11/23/17 14:52 131 16 99 Bi-pap 50 11/23/17 14:45 131 20 99 Facial 50 11/23/17 14:45 131 15 99 Bi-pap 50 11/23/17 12:31 135 19 100 Facial 100 11/23/17 11:40 132 18 100 Bi-pap 40 11/23/17 11:30 131 20 99 Facial 40 11/23/17 11:30 133 20 100 Bi-pap 40 11/23/17 10:00 129 17 96/71 96 Bi-pap 40 11/23/17 09:29 133 23 99 Facial 40 11/23/17 09:00 131 18 105/70 97 Bi-pap 40 11/23/17 08:00 40 11/23/17 08:00 98.0 135 16 102/75 96 Bi-pap 40 98.0 11/23/17 08:00 125 11/23/17 07:09 131 20 100 Bi-pap 40 11/23/17 07:00 122 18 99/72 98 Bi-pap 40 11/23/17 06:59 Bi-pap 40 11/23/17 06:59 129 20 100 Bi-pap 40 11/23/17 06:59 100 Bi-pap 40 11/23/17 06:59 129 22 100 Facial 40 11/23/17 06:00 130 16 101/72 100 Bi-pap 40 11/23/17 05:19 133 20 100 Facial 40 11/23/17 05:00 135 16 100/75 100 Bi-pap 40 11/23/17 04:00 97.8 135 16 94/75 100 Bi-pap 40 97.8 11/23/17 04:00 40 11/23/17 04:00 130 11/23/17 03:22 133 17 100 Bi-pap 40 11/23/17 03:12 131 18 98 Bi-pap 40 11/23/17 03:11 131 18 98 Facial 40 11/23/17 03:00 135 18 120/87 99 Bi-pap 40 11/23/17 02:00 133 18 112/75 99 Bi-pap 40 11/23/17 01:22 127 19 99 Facial 40 11/23/17 01:00 128 18 112/89 99 Bi-pap 40 11/23/17 00:00 124 18 106/69 99 Bi-pap 40 11/23/17 00:00 127 11/22/17 23:59 123 19 100 Bi-pap 40 11/22/17 23:48 121 19 98 Bi-pap 40 11/22/17 23:39 98.2 120 24 99/70 96 Bi-pap 40 98.2 11/22/17 23:18 119 20 97 Facial 40 11/22/17 22:00 95.0 40 11/22/17 21:23 125 21 99 Facial 30 11/22/17 20:00 40 11/22/17 20:00 126 20 98 Nasal Cannula 2.0 28 11/22/17 20:00 98.5 127 24 141/99 96 Bi-pap 40 98.5 11/22/17 19:50 96 Nasal Cannula 2.0 28 11/22/17 19:50 Nasal Cannula 2.0 28 11/22/17 19:50 127 20 96 Nasal Cannula 2.0 28 11/22/17 19:34 128 11/22/17 16:00 98.7 122 20 144/82 100 Nasal Cannula 2.0 98.7 11/22/17 16:00 122 11/22/17 15:56 125 20 96 Nasal Cannula 2.0 28 11/22/17 15:44 124 16 94 Nasal Cannula 2.0 28 Intake and Output 11/22/17 11/23/17 19:00 07:00 Output Total 260 ml Balance -260 ml Output Urine Total 260 ml Stool Total 0 ml # Voids 3 4 Laboratory Tests Test 11/22/17 21:05 11/23/17 04:00 11/23/17 08:05 Arterial Blood pH 7.364 (7.350-7.450) 7.423 (7.350-7.450) Arterial Blood Partial Pressure CO2 47.4 mmHg (35.0-45.0) H 40.8 mmHg (35.0-45.0) Arterial Blood Partial Pressure O2 50.4 mmHg (75.0-100.0) L 59.9 mmHg (75.0-100.0) L Arterial Blood HCO3 26.4 mmol/L (22.0-26.0) H 26.0 mmol/L (22.0-26.0) Arterial Blood Oxygen Saturation 82.5 % (92.0-98.0) L 89.7 % (92.0-98.0) L Arterial Blood Base Excess 0.5 1.5 Zeyad Test Positive Positive White Blood Count 14.1 K/UL (4.8-10.8) H Red Blood Count 4.69 M/UL (4.20-5.40) Hemoglobin 13.4 G/DL (12.0-16.0) Hematocrit 42.0 % (37.0-47.0) Mean Corpuscular Volume 90 FL (80-99) Mean Corpuscular Hemoglobin 28.6 PG (27.0-31.0) Mean Corpuscular Hemoglobin Concent 31.9 G/DL (32.0-36.0) L Red Cell Distribution Width 15.0 % (11.6-14.8) H Platelet Count 198 K/UL (150-450) Mean Platelet Volume 7.6 FL (6.5-10.1) Neutrophils (%) (Auto) 80.0 % (45.0-75.0) H Lymphocytes (%) (Auto) 14.6 % (20.0-45.0) L Monocytes (%) (Auto) 3.3 % (1.0-10.0) Eosinophils (%) (Auto) 1.7 % (0.0-3.0) Basophils (%) (Auto) 0.4 % (0.0-2.0) Sodium Level 141 MMOL/L (136-145) Potassium Level 3.7 MMOL/L (3.5-5.1) Chloride Level 102 MMOL/L (98-107) Carbon Dioxide Level 26 MMOL/L (21-32) Anion Gap 13 mmol/L (5-15) Blood Urea Nitrogen 18 mg/dL (7-18) Creatinine 0.8 MG/DL (0.55-1.30) Estimat Glomerular Filtration Rate > 60 mL/min (>60) Glucose Level 96 MG/DL (74-106) Calcium Level 10.0 MG/DL (8.5-10.1) Phosphorus Level 4.6 MG/DL (2.5-4.9) Magnesium Level 1.3 MG/DL (1.8-2.4) L Total Bilirubin 0.3 MG/DL (0.2-1.0) Aspartate Amino Transf (AST/SGOT) 84 U/L (15-37) H Alanine Aminotransferase (ALT/SGPT) 30 U/L (12-78) Alkaline Phosphatase 151 U/L (46-116) H Total Protein 8.4 G/DL (6.4-8.2) H Albumin 1.7 G/DL (3.4-5.0) L Globulin 6.7 g/dL Albumin/Globulin Ratio 0.3 (1.0-2.7) L Objective HEAD AND NECK: No JVD.BIPAP on LUNGS: [place] rhonchi. CARDIOVASCULAR: Tachy S1 and S2 ABDOMEN: Tender with a pump under skin. EXTREMITIES: No pitting edema. Pk Dutta MD November 23, 2017 15:22
--- NOTE | 2017-11-23 15:37 | GI Progress Note ---
Assessment/Plan Problems: (1) Crohn's disease ICD Codes: K50.90 - Crohn's disease SNOMED: 15738788 Qualifiers: Qualified Codes: K50.919 - Crohn's disease, unspecified, with unspecified complications (2) Opioid dependence ICD Codes: F11.20 - Opioid dependence SNOMED: 77619980 (3) SBO (small bowel obstruction) ICD Codes: K56.609 - Unspecified intestinal obstruction, unspecified as to partial versus complete obstruction SNOMED: 250658766 (4) Chronic abdominal pain Status: stable Status Narrative Discussed with Dr. Gallegos. Assessment/Plan CT AP reviewed >> Evidence of disseminated malignancy, with large left pulmonary hilar mass or adenopathy, extensive left hilar and mediastinal adenopathy, multiple pleural- based masses on the left, multiple masses within the liver, and retroperitoneal lymphadenopathy. Recommendations fu oncology recs pain mgmt Subjective Subjective generalized pain/weakness Objective Last 24 Hour Vital Signs Date Time Temp Pulse Resp B/P (MAP) Pulse Ox O2 Delivery O2 Flow Rate FiO2 11/23/17 15:00 127 18 117/72 100 Bi-pap 50 11/23/17 14:52 131 16 99 Bi-pap 50 11/23/17 14:45 131 20 99 Facial 50 11/23/17 14:45 131 15 99 Bi-pap 50 11/23/17 14:00 132 17 96/75 96 Bi-pap 40 11/23/17 13:00 130 17 98/71 96 Bi-pap 40 11/23/17 12:31 135 19 100 Facial 100 11/23/17 12:00 50 11/23/17 12:00 98.2 135 16 102/69 96 Bi-pap 40 98.2 11/23/17 12:00 127 11/23/17 11:40 132 18 100 Bi-pap 40 11/23/17 11:30 131 20 99 Facial 40 11/23/17 11:30 133 20 100 Bi-pap 40 11/23/17 11:00 125 17 100/71 96 Bi-pap 40 11/23/17 10:00 129 17 96/71 96 Bi-pap 40 11/23/17 09:29 133 23 99 Facial 40 11/23/17 09:00 131 18 105/70 97 Bi-pap 40 11/23/17 08:00 40 11/23/17 08:00 98.0 135 16 102/75 96 Bi-pap 40 98.0 11/23/17 08:00 125 11/23/17 07:09 131 20 100 Bi-pap 40 11/23/17 07:00 122 18 99/72 98 Bi-pap 40 11/23/17 06:59 Bi-pap 40 11/23/17 06:59 129 20 100 Bi-pap 40 11/23/17 06:59 100 Bi-pap 40 11/23/17 06:59 129 22 100 Facial 40 11/23/17 06:00 130 16 101/72 100 Bi-pap 40 11/23/17 05:19 133 20 100 Facial 40 11/23/17 05:00 135 16 100/75 100 Bi-pap 40 11/23/17 04:00 97.8 135 16 94/75 100 Bi-pap 40 97.8 11/23/17 04:00 40 11/23/17 04:00 130 11/23/17 03:22 133 17 100 Bi-pap 40 11/23/17 03:12 131 18 98 Bi-pap 40 11/23/17 03:11 131 18 98 Facial 40 11/23/17 03:00 135 18 120/87 99 Bi-pap 40 11/23/17 02:00 133 18 112/75 99 Bi-pap 40 11/23/17 01:22 127 19 99 Facial 40 11/23/17 01:00 128 18 112/89 99 Bi-pap 40 11/23/17 00:00 124 18 106/69 99 Bi-pap 40 11/23/17 00:00 127 11/22/17 23:59 123 19 100 Bi-pap 40 11/22/17 23:48 121 19 98 Bi-pap 40 11/22/17 23:39 98.2 120 24 99/70 96 Bi-pap 40 98.2 11/22/17 23:18 119 20 97 Facial 40 11/22/17 22:00 95.0 40 11/22/17 21:23 125 21 99 Facial 30 11/22/17 20:00 40 11/22/17 20:00 126 20 98 Nasal Cannula 2.0 28 11/22/17 20:00 98.5 127 24 141/99 96 Bi-pap 40 98.5 11/22/17 19:50 96 Nasal Cannula 2.0 28 11/22/17 19:50 Nasal Cannula 2.0 28 11/22/17 19:50 127 20 96 Nasal Cannula 2.0 28 11/22/17 19:34 128 11/22/17 16:00 98.7 122 20 144/82 100 Nasal Cannula 2.0 98.7 11/22/17 16:00 122 11/22/17 15:56 125 20 96 Nasal Cannula 2.0 28 11/22/17 15:44 124 16 94 Nasal Cannula 2.0 28 Intake and Output 11/22/17 11/23/17 19:00 07:00 Output Total 260 ml Balance -260 ml Output Urine Total 260 ml Stool Total 0 ml # Voids 3 4 Laboratory Tests Test 11/22/17 21:05 11/23/17 04:00 11/23/17 08:05 Arterial Blood pH 7.364 (7.350-7.450) 7.423 (7.350-7.450) Arterial Blood Partial Pressure CO2 47.4 mmHg (35.0-45.0) H 40.8 mmHg (35.0-45.0) Arterial Blood Partial Pressure O2 50.4 mmHg (75.0-100.0) L 59.9 mmHg (75.0-100.0) L Arterial Blood HCO3 26.4 mmol/L (22.0-26.0) H 26.0 mmol/L (22.0-26.0) Arterial Blood Oxygen Saturation 82.5 % (92.0-98.0) L 89.7 % (92.0-98.0) L Arterial Blood Base Excess 0.5 1.5 Zeyad Test Positive Positive White Blood Count 14.1 K/UL (4.8-10.8) H Red Blood Count 4.69 M/UL (4.20-5.40) Hemoglobin 13.4 G/DL (12.0-16.0) Hematocrit 42.0 % (37.0-47.0) Mean Corpuscular Volume 90 FL (80-99) Mean Corpuscular Hemoglobin 28.6 PG (27.0-31.0) Mean Corpuscular Hemoglobin Concent 31.9 G/DL (32.0-36.0) L Red Cell Distribution Width 15.0 % (11.6-14.8) H Platelet Count 198 K/UL (150-450) Mean Platelet Volume 7.6 FL (6.5-10.1) Neutrophils (%) (Auto) 80.0 % (45.0-75.0) H Lymphocytes (%) (Auto) 14.6 % (20.0-45.0) L Monocytes (%) (Auto) 3.3 % (1.0-10.0) Eosinophils (%) (Auto) 1.7 % (0.0-3.0) Basophils (%) (Auto) 0.4 % (0.0-2.0) Sodium Level 141 MMOL/L (136-145) Potassium Level 3.7 MMOL/L (3.5-5.1) Chloride Level 102 MMOL/L (98-107) Carbon Dioxide Level 26 MMOL/L (21-32) Anion Gap 13 mmol/L (5-15) Blood Urea Nitrogen 18 mg/dL (7-18) Creatinine 0.8 MG/DL (0.55-1.30) Estimat Glomerular Filtration Rate > 60 mL/min (>60) Glucose Level 96 MG/DL (74-106) Calcium Level 10.0 MG/DL (8.5-10.1) Phosphorus Level 4.6 MG/DL (2.5-4.9) Magnesium Level 1.3 MG/DL (1.8-2.4) L Total Bilirubin 0.3 MG/DL (0.2-1.0) Aspartate Amino Transf (AST/SGOT) 84 U/L (15-37) H Alanine Aminotransferase (ALT/SGPT) 30 U/L (12-78) Alkaline Phosphatase 151 U/L (46-116) H Total Protein 8.4 G/DL (6.4-8.2) H Albumin 1.7 G/DL (3.4-5.0) L Globulin 6.7 g/dL Albumin/Globulin Ratio 0.3 (1.0-2.7) L Height (Feet): 5 Height (Inches): 6.00 Weight (Pounds): 129 General Appearance: no apparent distress, thin Cardiovascular: normal rate Respiratory/Chest: normal breath sounds, no respiratory distress Abdominal Exam: normal bowel sounds, non tender, soft Extremities: non-tender Tara Scott N.PDeng November 23, 2017 15:36
--- NOTE | 2017-11-23 16:56 | Cardiology Report ---
APPROVED REPORT EKG Measurement Heart [id number] Sinus tachycardia Low voltage QRS Septal infarct, age undetermined Abnormal ECG
[2017-11-23] MEDS ORDERED: Dyna-Hex 2% Top Sol 2oz TOPIC SCH (20:00)
[2017-11-23] MEDS: Dyna-Hex 2% Top Sol 2oz TOPIC SCH (20:07)
[2017-11-23] MEDS ORDERED: Simethicone 80mg tab ORAL PRN (20:30)
[2017-11-23] MEDS ORDERED: Miralax 17gm pkt ORAL PRN (20:30)
[2017-11-23] MEDS: TraZODone 100mg tab ORAL SCH (20:56)
[2017-11-23] MEDS: Atorvastatin 20mg tab ORAL SCH (20:57)
[2017-11-24] VITALS (24 sets, daily range): BP systolic 100–140; BP diastolic 64–94
--- NOTE | 2017-11-24 01:00 | Procedure Note ---
DATE OF PROCEDURE: SURGEON: Skyler Gallegos M.D. PROCEDURE: Capsule endoscopy. INDICATION: Weight loss and Crohn's disease. The procedure, risks, benefits, and possible consequences, including hemorrhage, aspiration, perforation and infection, and alternative treatments, were explained to the patient/legal guardian by Dr. Skyler Gallegos and the patient/legal guardian understood and accepted these risks. DESCRIPTION OF PROCEDURE: The patient swallowed the camera. Unfortunately, the camera did spend whole time in the stomach. Nevertheless, the patient had some residual food material sitting in the stomach. The patient is on chronic pain medication, most probably gastroparesis from pain medication induced. So, this procedure was inconclusive and not helpful. PLAN: Plan will be to bring the patient back again in the future. Hopefully, give her some Reglan before the capsule endoscopy and repeat that after receives the Reglan. Skyler Gallegos M.D. DR: ALYSSA JOB#: [id number] CC:
[2017-11-24] MEDS: Levalbuterol Inh UD 1.25mg/0.5ml HHN SCH ×6 (04:44→22:45)
[2017-11-24 05:17] LABS: BASOPHILS % (AUTO) 0.5 % (0.0-2.0); EOSINOPHILS % (AUTO) 0.8 % (0.0-3.0); LYMPHOCYTES % (AUTO) 16.7 % (20.0-45.0); MEAN CORPUSCULAR VOLUME 88 FL (80-99); MONOCYTES % (AUTO) 3.3 % (1.0-10.0); NEUTROPHILS % (AUTO) 78.8 % (45.0-75.0); PLATELET COUNT 185 K/UL (150-450); RED BLOOD COUNT 4.66 M/UL (4.20-5.40); RED CELL DISTRIBUTION WIDTH 14.9 % (11.6-14.8); WHITE BLOOD COUNT 12.2 K/UL (4.8-10.8)
[2017-11-24 05:41] LABS: ALANINE AMINOTRANSFERASE 31 U/L (12-78); ALBUMIN 1.7 G/DL (3.4-5.0); ALKALINE PHOSPHATASE 147 U/L (46-116); ANION GAP 12 mmol/L (5-15); ASPARTATE AMINO TRANSFERASE 95 U/L (15-37); BILIRUBIN,TOTAL 0.5 MG/DL (0.2-1.0); BLOOD UREA NITROGEN 26 mg/dL (7-18); CARBON DIOXIDE 29 MMOL/L (21-32); CHLORIDE 101 MMOL/L (98-107); POTASSIUM 3.5 MMOL/L (3.5-5.1); SODIUM 142 MMOL/L (136-145)
[2017-11-24] MEDS: Relistor 12mg/0.6ml Vial SUBQ SCH (08:51)
[2017-11-24] MEDS: Topiramate 25mg tab ORAL SCH ×2 (08:51→21:20)
[2017-11-24] MEDS: Theophylline ER 100mg ORAL SCH ×2 (08:52→21:20)
[2017-11-24] MEDS: DULoxetine 30mg cap ORAL SCH (08:52)
--- NOTE | 2017-11-24 08:58 | General Progress Note ---
Assessment/Plan Assessment/Plan (1) Chronic abdominal pain (2) Chronic pancreatitis (3) Crohn's disease (4) Herniated nucleus pulposus, lumbar (5) Lumbar spondylosis (6) Radiculopathy of lumbar region (7) Lung mass Pt will be continued on Neurontin, Dilaudid and Proctor and pt has intrathecal pump. HOLD OPIOIDS FOR OVERSEDATION OR SBP<90 OR DBP<60 OR O2SAT<92% OR RR<12 Pt was d/w Dr. Malhotra and he concurred. Subjective Date patient seen: November 24, 2017 Time patient seen: 07:45 - am ROS Limited/Unobtainable: Yes Allergies: Coded Allergies: No Known Allergies (Verified , 05/21/06) Subjective The patient is in bed and bipap applied nurse at bed side. No signs of pain or distress. Objective Last 24 Hour Vital Signs Date Time Temp Pulse Resp B/P (MAP) Pulse Ox O2 Delivery O2 Flow Rate FiO2 11/24/17 07:02 Bi-pap 11/24/17 07:01 Bi-pap 11/24/17 07:01 Bi-pap 11/24/17 07:01 100 Bi-pap 50 11/24/17 07:00 132 16 132/94 100 Bi-pap 70 11/24/17 06:58 130 15 100 Facial 50 11/24/17 06:00 123 16 106/64 100 Bi-pap 70 11/24/17 05:00 130 18 127/76 100 Bi-pap 70 11/24/17 04:48 130 17 100 Facial 70 11/24/17 04:00 130 11/24/17 04:00 70 11/24/17 04:00 98.5 130 18 108/77 100 Bi-pap 70 98.5 11/24/17 03:40 124 16 100 Bi-pap 11/24/17 03:30 122 16 96 Bi-pap 11/24/17 03:30 124 18 99 Facial 70 11/24/17 03:00 125 18 110/67 98 Bi-pap 70 11/24/17 02:00 130 18 106/69 98 Bi-pap 70 11/24/17 01:30 132 16 100 Facial 70 11/24/17 01:00 98.5 126 18 100/66 98 Bi-pap 70 98.5 11/24/17 00:00 98.5 130 18 119/77 98 Bi-pap 70 98.5 11/24/17 00:00 70 11/23/17 23:26 Bi-pap 11/23/17 23:26 130 25 95 Bi-pap 11/23/17 23:25 131 14 96 Facial 70 11/23/17 23:00 130 19 117/77 98 Bi-pap 70 11/23/17 22:00 121 16 119/88 98 Bi-pap 70 11/23/17 21:30 130 17 95 Facial 70 11/23/17 21:00 121 18 127/74 98 Bi-pap 70 11/23/17 20:00 131 11/23/17 20:00 70 11/23/17 20:00 98.5 131 18 121/72 98 Bi-pap 70 98.5 11/23/17 19:51 Bi-pap 11/23/17 19:50 Bi-pap 11/23/17 19:50 Bi-pap 11/23/17 19:45 133 20 94 Bi-pap 50 11/23/17 19:30 133 20 94 Facial 50 11/23/17 19:00 128 18 118/72 100 Bi-pap 50 11/23/17 18:00 125 18 112/70 99 Bi-pap 50 11/23/17 17:00 122 16 116/75 100 Bi-pap 50 11/23/17 16:44 130 22 99 Facial 40 11/23/17 16:00 98.6 135 17 110/71 96 Bi-pap 50 98.6 11/23/17 16:00 50 11/23/17 16:00 125 11/23/17 15:00 127 18 117/72 100 Bi-pap 50 11/23/17 14:52 131 16 99 Bi-pap 50 11/23/17 14:45 131 20 99 Facial 50 11/23/17 14:45 131 15 99 Bi-pap 50 11/23/17 14:00 132 17 96/75 96 Bi-pap 40 11/23/17 13:00 130 17 98/71 96 Bi-pap 40 11/23/17 12:31 135 19 100 Facial 100 11/23/17 12:00 50 11/23/17 12:00 98.2 135 16 102/69 96 Bi-pap 40 98.2 11/23/17 12:00 127 11/23/17 11:40 132 18 100 Bi-pap 40 11/23/17 11:30 131 20 99 Facial 40 11/23/17 11:30 133 20 100 Bi-pap 40 11/23/17 11:00 125 17 100/71 96 Bi-pap 40 11/23/17 10:00 129 17 96/71 96 Bi-pap 40 11/23/17 09:29 133 23 99 Facial 40 11/23/17 09:00 131 18 105/70 97 Bi-pap 40 Intake and Output 11/23/17 11/24/17 19:00 07:00 Output Total 650 ml 600 ml Balance -650 ml -600 ml Output Urine Total 650 ml 600 ml Laboratory Tests 11/24/17 04:10: White Blood Count 12.2H, Red Blood Count 4.66, Hemoglobin 14.0, Hematocrit 41.0 , Mean Corpuscular Volume 88, Mean Corpuscular Hemoglobin 30.1, Mean Corpuscular Hemoglobin Concent 34.2, Red Cell Distribution Width 14.9H, Platelet Count 185, Mean Platelet Volume 7.8, Neutrophils (%) (Auto) 78.8H, Lymphocytes (%) (Auto) 16.7L, Monocytes (%) (Auto) 3.3, Eosinophils (%) (Auto) 0.8, Basophils (%) (Auto) 0.5, Sodium Level 142, Potassium Level 3.5, Chloride Level 101, Carbon Dioxide Level 29, Anion Gap 12, Blood Urea Nitrogen 26H, Creatinine 1.0, Estimat Glomerular Filtration Rate > 60, Glucose Level 118H, Calcium Level 10.0, Total Bilirubin 0.5, Aspartate Amino Transf (AST/SGOT) 95H, Alanine Aminotransferase (ALT/SGPT) 31, Alkaline Phosphatase 147H, Pro-B-Type Natriuretic Peptide 3659H, Total Protein 9.0H, Albumin 1.7L, Globulin 6.3 Height (Feet): 5 Height (Inches): 6.00 Weight (Pounds): 129 Objective General Appearance: on Bipap Neck: normal alignment, supple Cardiovascular: tachycardic Respiratory/Chest: decreased breath sounds Abdomen: tender, distended, intrathecal pump palpated Extremities: non-tender Edema: no edema noted JOSE ARREDONDO N. P.Lore November 24, 2017 08:58
[2017-11-24] MEDS: Heparin 5000 units/ml inj SUBQ SCH ×2 (09:10→21:21)
--- NOTE | 2017-11-24 11:19 | Pulmonolgy Critical Care Note ---
Critical Care - Asmt/Plan Problems: (1) Acute respiratory failure (2) Malignant pleural effusion (3) Metastatic cancer (4) Lung mass (5) COPD (chronic obstructive pulmonary disease) Respiratory: monitor respiratory rate, adjust FIO2, CXR Cardiac: continue to monitor HR/BP Renal: F/U I&O, keep IV fluid Infectious Disease: check cultures Gastrointestinal: continue feedings/current rate Endocrine: monitor blood sugar, check TSH, continue sliding scale insulin Hematologic: monitor H/H, transfuse if hgb<8.5 Neurologic: PRN Ativan, PRN Morphine, keep patient comfortable Prophylaxis: Protonix Disposition: keep in ICU 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, 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, 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 - Objective Last 24 Hour Vital Signs Date Time Temp Pulse Resp B/P (MAP) Pulse Ox O2 Delivery O2 Flow Rate FiO2 11/24/17 11:09 130 20 98 Facial 50 11/24/17 11:09 Bi-pap 11/24/17 11:09 Bi-pap 11/24/17 10:00 132 17 123/84 100 Bi-pap 50 11/24/17 09:08 130 15 100 Facial 50 11/24/17 09:00 132 17 119/82 97 Bi-pap 70 11/24/17 09:00 50 11/24/17 08:00 98.6 132 16 128/90 100 Bi-pap 70 98.6 11/24/17 08:00 131 11/24/17 07:02 Bi-pap 11/24/17 07:01 Bi-pap 11/24/17 07:01 Bi-pap 11/24/17 07:01 100 Bi-pap 50 11/24/17 07:00 132 16 132/94 100 Bi-pap 70 11/24/17 06:58 130 15 100 Facial 50 11/24/17 06:00 123 16 106/64 100 Bi-pap 70 11/24/17 05:00 130 18 127/76 100 Bi-pap 70 11/24/17 04:48 130 17 100 Facial 70 11/24/17 04:00 130 11/24/17 04:00 70 11/24/17 04:00 98.5 130 18 108/77 100 Bi-pap 70 98.5 11/24/17 03:40 124 16 100 Bi-pap 11/24/17 03:30 122 16 96 Bi-pap 11/24/17 03:30 124 18 99 Facial 70 11/24/17 03:00 125 18 110/67 98 Bi-pap 70 11/24/17 02:00 130 18 106/69 98 Bi-pap 70 11/24/17 01:30 132 16 100 Facial 70 11/24/17 01:00 98.5 126 18 100/66 98 Bi-pap 70 98.5 11/24/17 00:00 98.5 130 18 119/77 98 Bi-pap 70 98.5 11/24/17 00:00 70 11/23/17 23:26 Bi-pap 11/23/17 23:26 130 25 95 Bi-pap 11/23/17 23:25 131 14 96 Facial 70 11/23/17 23:00 130 19 117/77 98 Bi-pap 70 11/23/17 22:00 121 16 119/88 98 Bi-pap 70 11/23/17 21:30 130 17 95 Facial 70 11/23/17 21:00 121 18 127/74 98 Bi-pap 70 11/23/17 20:00 131 11/23/17 20:00 70 11/23/17 20:00 98.5 131 18 121/72 98 Bi-pap 70 98.5 11/23/17 19:51 Bi-pap 11/23/17 19:50 Bi-pap 11/23/17 19:50 Bi-pap 11/23/17 19:45 133 20 94 Bi-pap 50 11/23/17 19:30 133 20 94 Facial 50 11/23/17 19:00 128 18 118/72 100 Bi-pap 50 11/23/17 18:00 125 18 112/70 99 Bi-pap 50 11/23/17 17:00 122 16 116/75 100 Bi-pap 50 11/23/17 16:44 130 22 99 Facial 40 11/23/17 16:00 98.6 135 17 110/71 96 Bi-pap 50 98.6 11/23/17 16:00 50 11/23/17 16:00 125 11/23/17 15:00 127 18 117/72 100 Bi-pap 50 11/23/17 14:52 131 16 99 Bi-pap 50 11/23/17 14:45 131 20 99 Facial 50 11/23/17 14:45 131 15 99 Bi-pap 50 11/23/17 14:00 132 17 96/75 96 Bi-pap 40 11/23/17 13:00 130 17 98/71 96 Bi-pap 40 11/23/17 12:31 135 19 100 Facial 100 11/23/17 12:00 50 11/23/17 12:00 98.2 135 16 102/69 96 Bi-pap 40 98.2 11/23/17 12:00 127 11/23/17 11:40 132 18 100 Bi-pap 40 11/23/17 11:30 131 20 99 Facial 40 11/23/17 11:30 133 20 100 Bi-pap 40 Status: awake Condition: critical Neck: full ROM Heart: HR/BP stable Abdomen: soft, active bowel sounds Extremities: edema Decubiti: location Critical Care - Subjective ROS Limited/Unobtainable: No ICU Day: 2 Condition: critical EKG Rhythm: Sinus Rhythm FI02: 50 Vent Support Mode: CPAP Sputum Amount: None I&O: Intake and Output 11/23/17 11/24/17 19:00 07:00 Output Total 650 ml 600 ml Balance -650 ml -600 ml Output Urine Total 650 ml 600 ml CXR: bilateral infiltrate, alveolar edema Labs: Laboratory Tests Test 11/24/17 04:10 White Blood Count 12.2 K/UL (4.8-10.8) H Red Blood Count 4.66 M/UL (4.20-5.40) Hemoglobin 14.0 G/DL (12.0-16.0) Hematocrit 41.0 % (37.0-47.0) Mean Corpuscular Volume 88 FL (80-99) Mean Corpuscular Hemoglobin 30.1 PG (27.0-31.0) Mean Corpuscular Hemoglobin Concent 34.2 G/DL (32.0-36.0) Red Cell Distribution Width 14.9 % (11.6-14.8) H Platelet Count 185 K/UL (150-450) Mean Platelet Volume 7.8 FL (6.5-10.1) Neutrophils (%) (Auto) 78.8 % (45.0-75.0) H Lymphocytes (%) (Auto) 16.7 % (20.0-45.0) L Monocytes (%) (Auto) 3.3 % (1.0-10.0) Eosinophils (%) (Auto) 0.8 % (0.0-3.0) Basophils (%) (Auto) 0.5 % (0.0-2.0) Sodium Level 142 MMOL/L (136-145) Potassium Level 3.5 MMOL/L (3.5-5.1) Chloride Level 101 MMOL/L (98-107) Carbon Dioxide Level 29 MMOL/L (21-32) Anion Gap 12 mmol/L (5-15) Blood Urea Nitrogen 26 mg/dL (7-18) H Creatinine 1.0 MG/DL (0.55-1.30) Estimat Glomerular Filtration Rate > 60 mL/min (>60) Glucose Level 118 MG/DL (74-106) H Calcium Level 10.0 MG/DL (8.5-10.1) Total Bilirubin 0.5 MG/DL (0.2-1.0) Aspartate Amino Transf (AST/SGOT) 95 U/L (15-37) H Alanine Aminotransferase (ALT/SGPT) 31 U/L (12-78) Alkaline Phosphatase 147 U/L (46-116) H Pro-B-Type Natriuretic Peptide 3659 pg/mL (0-125) H Total Protein 9.0 G/DL (6.4-8.2) H Albumin 1.7 G/DL (3.4-5.0) L Globulin 6.3 g/dL Rob Wagner MD November 24, 2017 11:19
--- NOTE | 2017-11-24 11:20 | Diagnostic Imaging Report ---
Indication: Dyspnea Comparison: 11/23/2017 A single view chest radiograph was obtained. Findings: Patchy airspace disease demonstrated bilaterally. The heart size is normal and unchanged. PICC line is stable. IMPRESSION: No change from the previous day
--- NOTE | 2017-11-24 12:27 | General Progress Note ---
Assessment/Plan Assessment/Plan IMPRESSION/RECS: #. Stage IV malignancy, potentially lung cancer given pattern of spread, proven malignancy on pleural fluid. Has a left lower lobe lung mass. Left inferior hilar mass. Left pleural base lung mass. Left pleural effusion. Retroperitoneal lymphadenopathy. Multiple low-attenuation liver lesions. --> Discussed with elian RN, Primary MD, given poor performance status recommend palliative/hospice care --> Do not recommend any further diagnosis/tissue given poor state, is not a chemotherapy candidate #. Anemia due to underlying malignancy - continue to closely monitor --> hgb goal is >7 #. Crohn disease. #. Opioid dependence. #. Chronic obstructive pulmonary disease. #. History of smoking. #. Emphysema. #. Perianal abscess. #. Intractable abdominal pain. #. Status post morphine pump placement. #. Status post exploratory laparotomy. #. Pneumoperitoneum. Subjective Constitutional: Reports: no symptoms HEENT: Reports: no symptoms Cardiovascular: Reports: no symptoms Respiratory: Reports: no symptoms Gastrointestinal/Abdominal: Reports: no symptoms Genitourinary: Reports: no symptoms Neurologic/Psychiatric: Reports: no symptoms Endocrine: Reports: no symptoms Hematologic/Lymphatic: Reports: anemia Allergies: Coded Allergies: No Known Allergies (Verified , 05/21/06) Subjective lethargic, no fevers, no chills, remains in icu Objective Last 24 Hour Vital Signs Date Time Temp Pulse Resp B/P (MAP) Pulse Ox O2 Delivery O2 Flow Rate FiO2 11/24/17 12:00 50 11/24/17 12:00 98.6 132 13 135/86 100 Bi-pap 70 98.6 11/24/17 11:09 130 20 98 Facial 50 11/24/17 11:09 Bi-pap 11/24/17 11:09 Bi-pap 11/24/17 11:00 132 13 127/85 100 Bi-pap 50 11/24/17 10:00 132 17 123/84 100 Bi-pap 50 11/24/17 09:08 130 15 100 Facial 50 11/24/17 09:00 132 17 119/82 97 Bi-pap 70 11/24/17 09:00 50 11/24/17 08:00 98.6 132 16 128/90 100 Bi-pap 70 98.6 11/24/17 08:00 131 11/24/17 07:02 Bi-pap 11/24/17 07:01 Bi-pap 11/24/17 07:01 Bi-pap 11/24/17 07:01 100 Bi-pap 50 11/24/17 07:00 132 16 132/94 100 Bi-pap 70 11/24/17 06:58 130 15 100 Facial 50 11/24/17 06:00 123 16 106/64 100 Bi-pap 70 11/24/17 05:00 130 18 127/76 100 Bi-pap 70 11/24/17 04:48 130 17 100 Facial 70 11/24/17 04:00 130 11/24/17 04:00 70 11/24/17 04:00 98.5 130 18 108/77 100 Bi-pap 70 98.5 11/24/17 03:40 124 16 100 Bi-pap 11/24/17 03:30 122 16 96 Bi-pap 11/24/17 03:30 124 18 99 Facial 70 11/24/17 03:00 125 18 110/67 98 Bi-pap 70 11/24/17 02:00 130 18 106/69 98 Bi-pap 70 11/24/17 01:30 132 16 100 Facial 70 11/24/17 01:00 98.5 126 18 100/66 98 Bi-pap 70 98.5 11/24/17 00:00 98.5 130 18 119/77 98 Bi-pap 70 98.5 11/24/17 00:00 70 11/23/17 23:26 Bi-pap 11/23/17 23:26 130 25 95 Bi-pap 11/23/17 23:25 131 14 96 Facial 70 11/23/17 23:00 130 19 117/77 98 Bi-pap 70 11/23/17 22:00 121 16 119/88 98 Bi-pap 70 11/23/17 21:30 130 17 95 Facial 70 11/23/17 21:00 121 18 127/74 98 Bi-pap 70 11/23/17 20:00 131 11/23/17 20:00 70 11/23/17 20:00 98.5 131 18 121/72 98 Bi-pap 70 98.5 11/23/17 19:51 Bi-pap 11/23/17 19:50 Bi-pap 11/23/17 19:50 Bi-pap 11/23/17 19:45 133 20 94 Bi-pap 50 11/23/17 19:30 133 20 94 Facial 50 11/23/17 19:00 128 18 118/72 100 Bi-pap 50 11/23/17 18:00 125 18 112/70 99 Bi-pap 50 11/23/17 17:00 122 16 116/75 100 Bi-pap 50 11/23/17 16:44 130 22 99 Facial 40 11/23/17 16:00 98.6 135 17 110/71 96 Bi-pap 50 98.6 11/23/17 16:00 50 11/23/17 16:00 125 11/23/17 15:00 127 18 117/72 100 Bi-pap 50 11/23/17 14:52 131 16 99 Bi-pap 50 11/23/17 14:45 131 20 99 Facial 50 11/23/17 14:45 131 15 99 Bi-pap 50 11/23/17 14:00 132 17 96/75 96 Bi-pap 40 11/23/17 13:00 130 17 98/71 96 Bi-pap 40 11/23/17 12:31 135 19 100 Facial 100 Intake and Output 11/23/17 11/24/17 19:00 07:00 Output Total 650 ml 600 ml Balance -650 ml -600 ml Output Urine Total 650 ml 600 ml Laboratory Tests 11/24/17 04:10: White Blood Count 12.2H, Red Blood Count 4.66, Hemoglobin 14.0, Hematocrit 41.0 , Mean Corpuscular Volume 88, Mean Corpuscular Hemoglobin 30.1, Mean Corpuscular Hemoglobin Concent 34.2, Red Cell Distribution Width 14.9H, Platelet Count 185, Mean Platelet Volume 7.8, Neutrophils (%) (Auto) 78.8H, Lymphocytes (%) (Auto) 16.7L, Monocytes (%) (Auto) 3.3, Eosinophils (%) (Auto) 0.8, Basophils (%) (Auto) 0.5, Sodium Level 142, Potassium Level 3.5, Chloride Level 101, Carbon Dioxide Level 29, Anion Gap 12, Blood Urea Nitrogen 26H, Creatinine 1.0, Estimat Glomerular Filtration Rate > 60, Glucose Level 118H, Calcium Level 10.0, Total Bilirubin 0.5, Aspartate Amino Transf (AST/SGOT) 95H, Alanine Aminotransferase (ALT/SGPT) 31, Alkaline Phosphatase 147H, Pro-B-Type Natriuretic Peptide 3659H, Total Protein 9.0H, Albumin 1.7L, Globulin 6.3 11/24/17 11:15: Arterial Blood pH 7.416, Arterial Blood Partial Pressure CO2 48.5H, Arterial Blood Partial Pressure O2 76.4, Arterial Blood HCO3 30.5H, Arterial Blood Oxygen Saturation 93.3, Arterial Blood Base Excess 5.0, Zeyad Test Positive Height (Feet): 5 Height (Inches): 6.00 Weight (Pounds): 129 General Appearance: no apparent distress EENT: TMs normal Neck: supple Cardiovascular: regular rhythm Respiratory/Chest: lungs clear Abdomen: non tender Extremities: non-tender Edema: 1+ Leg (L), 1+ Leg (R) Edema: mild edema Neurologic: alert Skin: warm/dry Connor Bains MD November 24, 2017 12:27
--- NOTE | 2017-11-24 12:49 | GI Progress Note ---
Assessment/Plan Problems: (1) Crohn's disease ICD Codes: K50.90 - Crohn's disease SNOMED: 16376247 Qualifiers: Qualified Codes: K50.919 - Crohn's disease, unspecified, with unspecified complications (2) Opioid dependence ICD Codes: F11.20 - Opioid dependence SNOMED: 10152111 (3) SBO (small bowel obstruction) ICD Codes: K56.609 - Unspecified intestinal obstruction, unspecified as to partial versus complete obstruction SNOMED: 163088233 (4) Chronic abdominal pain Status: not improved Status Narrative Discussed with Dr. Gallegos. Assessment/Plan CT AP reviewed >> Evidence of disseminated malignancy, with large left pulmonary hilar mass or adenopathy, extensive left hilar and mediastinal adenopathy, multiple pleural- based masses on the left, multiple masses within the liver, and retroperitoneal lymphadenopathy. Recommendations fu oncology recs pain mgmt poor prognosis Subjective Subjective limited Objective Last 24 Hour Vital Signs Date Time Temp Pulse Resp B/P (MAP) Pulse Ox O2 Delivery O2 Flow Rate FiO2 11/24/17 12:00 50 11/24/17 12:00 98.6 132 13 135/86 100 Bi-pap 70 98.6 11/24/17 11:09 130 20 98 Facial 50 11/24/17 11:09 Bi-pap 11/24/17 11:09 Bi-pap 11/24/17 11:00 132 13 127/85 100 Bi-pap 50 11/24/17 10:00 132 17 123/84 100 Bi-pap 50 11/24/17 09:08 130 15 100 Facial 50 11/24/17 09:00 132 17 119/82 97 Bi-pap 70 11/24/17 09:00 50 11/24/17 08:00 98.6 132 16 128/90 100 Bi-pap 70 98.6 11/24/17 08:00 131 11/24/17 07:02 Bi-pap 11/24/17 07:01 Bi-pap 11/24/17 07:01 Bi-pap 11/24/17 07:01 100 Bi-pap 50 11/24/17 07:00 132 16 132/94 100 Bi-pap 70 11/24/17 06:58 130 15 100 Facial 50 11/24/17 06:00 123 16 106/64 100 Bi-pap 70 11/24/17 05:00 130 18 127/76 100 Bi-pap 70 11/24/17 04:48 130 17 100 Facial 70 11/24/17 04:00 130 11/24/17 04:00 70 11/24/17 04:00 98.5 130 18 108/77 100 Bi-pap 70 98.5 11/24/17 03:40 124 16 100 Bi-pap 11/24/17 03:30 122 16 96 Bi-pap 11/24/17 03:30 124 18 99 Facial 70 11/24/17 03:00 125 18 110/67 98 Bi-pap 70 11/24/17 02:00 130 18 106/69 98 Bi-pap 70 11/24/17 01:30 132 16 100 Facial 70 11/24/17 01:00 98.5 126 18 100/66 98 Bi-pap 70 98.5 11/24/17 00:00 98.5 130 18 119/77 98 Bi-pap 70 98.5 11/24/17 00:00 70 11/23/17 23:26 Bi-pap 11/23/17 23:26 130 25 95 Bi-pap 11/23/17 23:25 131 14 96 Facial 70 11/23/17 23:00 130 19 117/77 98 Bi-pap 70 11/23/17 22:00 121 16 119/88 98 Bi-pap 70 11/23/17 21:30 130 17 95 Facial 70 11/23/17 21:00 121 18 127/74 98 Bi-pap 70 11/23/17 20:00 131 11/23/17 20:00 70 11/23/17 20:00 98.5 131 18 121/72 98 Bi-pap 70 98.5 11/23/17 19:51 Bi-pap 11/23/17 19:50 Bi-pap 11/23/17 19:50 Bi-pap 11/23/17 19:45 133 20 94 Bi-pap 50 11/23/17 19:30 133 20 94 Facial 50 11/23/17 19:00 128 18 118/72 100 Bi-pap 50 11/23/17 18:00 125 18 112/70 99 Bi-pap 50 11/23/17 17:00 122 16 116/75 100 Bi-pap 50 11/23/17 16:44 130 22 99 Facial 40 11/23/17 16:00 98.6 135 17 110/71 96 Bi-pap 50 98.6 11/23/17 16:00 50 11/23/17 16:00 125 11/23/17 15:00 127 18 117/72 100 Bi-pap 50 11/23/17 14:52 131 16 99 Bi-pap 50 11/23/17 14:45 131 20 99 Facial 50 11/23/17 14:45 131 15 99 Bi-pap 50 11/23/17 14:00 132 17 96/75 96 Bi-pap 40 11/23/17 13:00 130 17 98/71 96 Bi-pap 40 Intake and Output 11/23/17 11/24/17 19:00 07:00 Output Total 650 ml 600 ml Balance -650 ml -600 ml Output Urine Total 650 ml 600 ml Laboratory Tests Test 11/24/17 04:10 11/24/17 11:15 White Blood Count 12.2 K/UL (4.8-10.8) H Red Blood Count 4.66 M/UL (4.20-5.40) Hemoglobin 14.0 G/DL (12.0-16.0) Hematocrit 41.0 % (37.0-47.0) Mean Corpuscular Volume 88 FL (80-99) Mean Corpuscular Hemoglobin 30.1 PG (27.0-31.0) Mean Corpuscular Hemoglobin Concent 34.2 G/DL (32.0-36.0) Red Cell Distribution Width 14.9 % (11.6-14.8) H Platelet Count 185 K/UL (150-450) Mean Platelet Volume 7.8 FL (6.5-10.1) Neutrophils (%) (Auto) 78.8 % (45.0-75.0) H Lymphocytes (%) (Auto) 16.7 % (20.0-45.0) L Monocytes (%) (Auto) 3.3 % (1.0-10.0) Eosinophils (%) (Auto) 0.8 % (0.0-3.0) Basophils (%) (Auto) 0.5 % (0.0-2.0) Sodium Level 142 MMOL/L (136-145) Potassium Level 3.5 MMOL/L (3.5-5.1) Chloride Level 101 MMOL/L (98-107) Carbon Dioxide Level 29 MMOL/L (21-32) Anion Gap 12 mmol/L (5-15) Blood Urea Nitrogen 26 mg/dL (7-18) H Creatinine 1.0 MG/DL (0.55-1.30) Estimat Glomerular Filtration Rate > 60 mL/min (>60) Glucose Level 118 MG/DL (74-106) H Calcium Level 10.0 MG/DL (8.5-10.1) Total Bilirubin 0.5 MG/DL (0.2-1.0) Aspartate Amino Transf (AST/SGOT) 95 U/L (15-37) H Alanine Aminotransferase (ALT/SGPT) 31 U/L (12-78) Alkaline Phosphatase 147 U/L (46-116) H Pro-B-Type Natriuretic Peptide 3659 pg/mL (0-125) H Total Protein 9.0 G/DL (6.4-8.2) H Albumin 1.7 G/DL (3.4-5.0) L Globulin 6.3 g/dL Arterial Blood pH 7.416 (7.350-7.450) Arterial Blood Partial Pressure CO2 48.5 mmHg (35.0-45.0) H Arterial Blood Partial Pressure O2 76.4 mmHg (75.0-100.0) Arterial Blood HCO3 30.5 mmol/L (22.0-26.0) H Arterial Blood Oxygen Saturation 93.3 % (92.0-98.0) Arterial Blood Base Excess 5.0 Zeyad Test Positive Height (Feet): 5 Height (Inches): 6.00 Weight (Pounds): 129 Cardiovascular: normal rate Abdominal Exam: soft Tara Scott N.PDeng November 24, 2017 12:49
--- NOTE | 2017-11-24 13:48 | General Progress Note ---
Assessment/Plan Problem List: (1) Crohn's disease ICD Codes: K50.90 - Crohn's disease SNOMED: 24456988 Qualifiers: Qualified Codes: K50.919 - Crohn's disease, unspecified, with unspecified complications (2) Opioid dependence ICD Codes: F11.20 - Opioid dependence SNOMED: 02872424 (3) Intractable abdominal pain ICD Codes: R10.9 - Unspecified abdominal pain SNOMED: 02143605, 485852729 (4) COPD (chronic obstructive pulmonary disease) ICD Codes: J44.9 - Chronic obstructive pulmonary disease SNOMED: 23858994 (5) Shortness of breath (6) SOB (shortness of breath) ICD Codes: R06.02 - Shortness of breath SNOMED: 683056114 (7) UTI (urinary tract infection) ICD Codes: N39.0 - Urinary tract infection, site not specified SNOMED: 51480574 (8) Lung mass ICD Codes: R91.8 - Other nonspecific abnormal finding of lung field SNOMED: 904240085 (9) Tachycardia ICD Codes: R00.0 - Tachycardia, unspecified SNOMED: 1071789 Status: unchanged Assessment/Plan ot pt diet pain control sx eval cbc bmp am heme f/u cardio eval, Subjective Constitutional: Reports: weakness Respiratory: Reports: shortness of breath Allergies: Coded Allergies: No Known Allergies (Verified , 05/21/06) All Systems: reviewed and negative except above Subjective bipap sleeping in icu Objective Last 24 Hour Vital Signs Date Time Temp Pulse Resp B/P (MAP) Pulse Ox O2 Delivery O2 Flow Rate FiO2 11/24/17 13:00 126 25 98 Facial 50 11/24/17 12:00 50 11/24/17 12:00 98.6 132 13 135/86 100 Bi-pap 70 98.6 11/24/17 11:09 130 20 98 Facial 50 11/24/17 11:09 Bi-pap 11/24/17 11:09 Bi-pap 11/24/17 11:00 132 13 127/85 100 Bi-pap 50 11/24/17 10:00 132 17 123/84 100 Bi-pap 50 11/24/17 09:08 130 15 100 Facial 50 11/24/17 09:00 132 17 119/82 97 Bi-pap 70 5/2/18 09:00 50 11/24/17 08:00 98.6 132 16 128/90 100 Bi-pap 70 98.6 11/24/17 08:00 131 11/24/17 07:02 Bi-pap 11/24/17 07:01 Bi-pap 11/24/17 07:01 Bi-pap 11/24/17 07:01 100 Bi-pap 50 11/24/17 07:00 132 16 132/94 100 Bi-pap 70 11/24/17 06:58 130 15 100 Facial 50 11/24/17 06:00 123 16 106/64 100 Bi-pap 70 11/24/17 05:00 130 18 127/76 100 Bi-pap 70 11/24/17 04:48 130 17 100 Facial 70 11/24/17 04:00 130 11/24/17 04:00 70 11/24/17 04:00 98.5 130 18 108/77 100 Bi-pap 70 98.5 11/24/17 03:40 124 16 100 Bi-pap 11/24/17 03:30 122 16 96 Bi-pap 11/24/17 03:30 124 18 99 Facial 70 11/24/17 03:00 125 18 110/67 98 Bi-pap 70 11/24/17 02:00 130 18 106/69 98 Bi-pap 70 11/24/17 01:30 132 16 100 Facial 70 11/24/17 01:00 98.5 126 18 100/66 98 Bi-pap 70 98.5 11/24/17 00:00 98.5 130 18 119/77 98 Bi-pap 70 98.5 11/24/17 00:00 70 11/23/17 23:26 Bi-pap 11/23/17 23:26 130 25 95 Bi-pap 11/23/17 23:25 131 14 96 Facial 70 11/23/17 23:00 130 19 117/77 98 Bi-pap 70 11/23/17 22:00 121 16 119/88 98 Bi-pap 70 11/23/17 21:30 130 17 95 Facial 70 11/23/17 21:00 121 18 127/74 98 Bi-pap 70 11/23/17 20:00 131 11/23/17 20:00 70 11/23/17 20:00 98.5 131 18 121/72 98 Bi-pap 70 98.5 11/23/17 19:51 Bi-pap 11/23/17 19:50 Bi-pap 11/23/17 19:50 Bi-pap 11/23/17 19:45 133 20 94 Bi-pap 50 11/23/17 19:30 133 20 94 Facial 50 11/23/17 19:00 128 18 118/72 100 Bi-pap 50 11/23/17 18:00 125 18 112/70 99 Bi-pap 50 11/23/17 17:00 122 16 116/75 100 Bi-pap 50 11/23/17 16:44 130 22 99 Facial 40 11/23/17 16:00 98.6 135 17 110/71 96 Bi-pap 50 98.6 11/23/17 16:00 50 11/23/17 16:00 125 11/23/17 15:00 127 18 117/72 100 Bi-pap 50 11/23/17 14:52 131 16 99 Bi-pap 50 11/23/17 14:45 131 20 99 Facial 50 11/23/17 14:45 131 15 99 Bi-pap 50 11/23/17 14:00 132 17 96/75 96 Bi-pap 40 Intake and Output 11/23/17 11/24/17 19:00 07:00 Output Total 650 ml 600 ml Balance -650 ml -600 ml Output Urine Total 650 ml 600 ml Laboratory Tests 11/24/17 04:10: White Blood Count 12.2H, Red Blood Count 4.66, Hemoglobin 14.0, Hematocrit 41.0 , Mean Corpuscular Volume 88, Mean Corpuscular Hemoglobin 30.1, Mean Corpuscular Hemoglobin Concent 34.2, Red Cell Distribution Width 14.9H, Platelet Count 185, Mean Platelet Volume 7.8, Neutrophils (%) (Auto) 78.8H, Lymphocytes (%) (Auto) 16.7L, Monocytes (%) (Auto) 3.3, Eosinophils (%) (Auto) 0.8, Basophils (%) (Auto) 0.5, Sodium Level 142, Potassium Level 3.5, Chloride Level 101, Carbon Dioxide Level 29, Anion Gap 12, Blood Urea Nitrogen 26H, Creatinine 1.0, Estimat Glomerular Filtration Rate > 60, Glucose Level 118H, Calcium Level 10.0, Total Bilirubin 0.5, Aspartate Amino Transf (AST/SGOT) 95H, Alanine Aminotransferase (ALT/SGPT) 31, Alkaline Phosphatase 147H, Pro-B-Type Natriuretic Peptide 3659H, Total Protein 9.0H, Albumin 1.7L, Globulin 6.3 11/24/17 11:15: Arterial Blood pH 7.416, Arterial Blood Partial Pressure CO2 48.5H, Arterial Blood Partial Pressure O2 76.4, Arterial Blood HCO3 30.5H, Arterial Blood Oxygen Saturation 93.3, Arterial Blood Base Excess 5.0, Zeyad Test Positive Height (Feet): 5 Height (Inches): 6.00 Weight (Pounds): 129 General Appearance: lethargic EENT: normal ENT inspection Neck: normal alignment Cardiovascular: normal peripheral pulses, normal rate, regular rhythm Respiratory/Chest: chest wall non-tender, decreased breath sounds Abdomen: normal bowel sounds, non tender, soft Extremities: normal inspection Edema: no edema noted Arm (L), no edema noted Arm (R), no edema noted Leg (L), no edema noted Leg (R), no edema noted Pedal (L), no edema noted Pedal (R), no edema noted Generalized Neurologic: motor weakness Skin: normal pigmentation, warm/dry BAYRON BENEDICT November 24, 2017 13:48
--- NOTE | 2017-11-24 14:31 | Cardiac Electrophysiology PN ---
Assessment/Plan Assessment/Plan 1. Sinus tachycardia with no evidence of atrial fibrillation or SVT due to pain and respiratory failure. Echocardiogram showed EF 65%. ECG also sinus tach 2. Malignant pleural effusion and metastatic cancer. Follow up Dr. Wagner. S/p Left Thoracentesis on 11/12/17 Morphine pump in abdomen. On BIPAP 3. Lung mass. 4. Crohn disease and history of exploratory laparotomy, under management of Dr. Gallegos. 5. Ascites paracentesis with cytology and also awaiting mediastinoscopy versus CT-guided lung biopsy , per Dr. Bains. 6. Still full Code DW RN Subjective Subjective Altered, in ICU on BIPAP in sinus tach 120-130s.fAMILY AND rn AT BEDSIDE. sTILL FULL CODE. Objective Last 24 Hour Vital Signs Date Time Temp Pulse Resp B/P (MAP) Pulse Ox O2 Delivery O2 Flow Rate FiO2 11/24/17 14:00 129 21 126/80 100 Bi-pap 50 11/24/17 13:00 126 25 98 Facial 50 11/24/17 13:00 126 25 136/90 100 Bi-pap 50 11/24/17 12:00 50 11/24/17 12:00 129 11/24/17 12:00 98.6 132 13 135/86 100 Bi-pap 70 98.6 11/24/17 11:09 130 20 98 Facial 50 11/24/17 11:09 Bi-pap 11/24/17 11:09 Bi-pap 11/24/17 11:00 132 13 127/85 100 Bi-pap 50 11/24/17 10:00 132 17 123/84 100 Bi-pap 50 11/24/17 09:08 130 15 100 Facial 50 11/24/17 09:00 132 17 119/82 97 Bi-pap 70 11/24/17 09:00 50 11/24/17 08:00 98.6 132 16 128/90 100 Bi-pap 70 98.6 11/24/17 08:00 131 11/24/17 07:02 Bi-pap 11/24/17 07:01 Bi-pap 11/24/17 07:01 Bi-pap 11/24/17 07:01 100 Bi-pap 50 11/24/17 07:00 132 16 132/94 100 Bi-pap 70 11/24/17 06:58 130 15 100 Facial 50 11/24/17 06:00 123 16 106/64 100 Bi-pap 70 11/24/17 05:00 130 18 127/76 100 Bi-pap 70 11/24/17 04:48 130 17 100 Facial 70 11/24/17 04:00 130 11/24/17 04:00 70 11/24/17 04:00 98.5 130 18 108/77 100 Bi-pap 70 98.5 11/24/17 03:40 124 16 100 Bi-pap 11/24/17 03:30 122 16 96 Bi-pap 11/24/17 03:30 124 18 99 Facial 70 11/24/17 03:00 125 18 110/67 98 Bi-pap 70 11/24/17 02:00 130 18 106/69 98 Bi-pap 70 11/24/17 01:30 132 16 100 Facial 70 11/24/17 01:00 98.5 126 18 100/66 98 Bi-pap 70 98.5 11/24/17 00:00 98.5 130 18 119/77 98 Bi-pap 70 98.5 11/24/17 00:00 70 11/23/17 23:26 Bi-pap 11/23/17 23:26 130 25 95 Bi-pap 11/23/17 23:25 131 14 96 Facial 70 11/23/17 23:00 130 19 117/77 98 Bi-pap 70 11/23/17 22:00 121 16 119/88 98 Bi-pap 70 11/23/17 21:30 130 17 95 Facial 70 11/23/17 21:00 121 18 127/74 98 Bi-pap 70 11/23/17 20:00 131 11/23/17 20:00 70 11/23/17 20:00 98.5 131 18 121/72 98 Bi-pap 70 98.5 11/23/17 19:51 Bi-pap 11/23/17 19:50 Bi-pap 11/23/17 19:50 Bi-pap 11/23/17 19:45 133 20 94 Bi-pap 50 11/23/17 19:30 133 20 94 Facial 50 11/23/17 19:00 128 18 118/72 100 Bi-pap 50 11/23/17 18:00 125 18 112/70 99 Bi-pap 50 11/23/17 17:00 122 16 116/75 100 Bi-pap 50 11/23/17 16:44 130 22 99 Facial 40 11/23/17 16:00 98.6 135 17 110/71 96 Bi-pap 50 98.6 11/23/17 16:00 50 11/23/17 16:00 125 11/23/17 15:00 127 18 117/72 100 Bi-pap 50 11/23/17 14:52 131 16 99 Bi-pap 50 11/23/17 14:45 131 20 99 Facial 50 11/23/17 14:45 131 15 99 Bi-pap 50 Intake and Output 11/23/17 11/24/17 19:00 07:00 Output Total 650 ml 600 ml Balance -650 ml -600 ml Output Urine Total 650 ml 600 ml Laboratory Tests Test 11/24/17 04:10 11/24/17 11:15 White Blood Count 12.2 K/UL (4.8-10.8) H Red Blood Count 4.66 M/UL (4.20-5.40) Hemoglobin 14.0 G/DL (12.0-16.0) Hematocrit 41.0 % (37.0-47.0) Mean Corpuscular Volume 88 FL (80-99) Mean Corpuscular Hemoglobin 30.1 PG (27.0-31.0) Mean Corpuscular Hemoglobin Concent 34.2 G/DL (32.0-36.0) Red Cell Distribution Width 14.9 % (11.6-14.8) H Platelet Count 185 K/UL (150-450) Mean Platelet Volume 7.8 FL (6.5-10.1) Neutrophils (%) (Auto) 78.8 % (45.0-75.0) H Lymphocytes (%) (Auto) 16.7 % (20.0-45.0) L Monocytes (%) (Auto) 3.3 % (1.0-10.0) Eosinophils (%) (Auto) 0.8 % (0.0-3.0) Basophils (%) (Auto) 0.5 % (0.0-2.0) Sodium Level 142 MMOL/L (136-145) Potassium Level 3.5 MMOL/L (3.5-5.1) Chloride Level 101 MMOL/L (98-107) Carbon Dioxide Level 29 MMOL/L (21-32) Anion Gap 12 mmol/L (5-15) Blood Urea Nitrogen 26 mg/dL (7-18) H Creatinine 1.0 MG/DL (0.55-1.30) Estimat Glomerular Filtration Rate > 60 mL/min (>60) Glucose Level 118 MG/DL (74-106) H Calcium Level 10.0 MG/DL (8.5-10.1) Total Bilirubin 0.5 MG/DL (0.2-1.0) Aspartate Amino Transf (AST/SGOT) 95 U/L (15-37) H Alanine Aminotransferase (ALT/SGPT) 31 U/L (12-78) Alkaline Phosphatase 147 U/L (46-116) H Pro-B-Type Natriuretic Peptide 3659 pg/mL (0-125) H Total Protein 9.0 G/DL (6.4-8.2) H Albumin 1.7 G/DL (3.4-5.0) L Globulin 6.3 g/dL Arterial Blood pH 7.416 (7.350-7.450) Arterial Blood Partial Pressure CO2 48.5 mmHg (35.0-45.0) H Arterial Blood Partial Pressure O2 76.4 mmHg (75.0-100.0) Arterial Blood HCO3 30.5 mmol/L (22.0-26.0) H Arterial Blood Oxygen Saturation 93.3 % (92.0-98.0) Arterial Blood Base Excess 5.0 Zeyad Test Positive Objective HEAD AND NECK: No JVD.BIPAP on LUNGS: Coaarse rhonchi. CARDIOVASCULAR: Tachy S1 and S2 ABDOMEN: Tender with a pump under skin. EXTREMITIES: No pitting edema. Pk Dutta MD November 24, 2017 14:31
--- NOTE | 2017-11-24 15:21 | Infectious Diseases Prog Note ---
Assessment/Plan Assessment/Plan ASSESSMENT: The patient is a 66-year-old female with, Lethargy, on Bipap- improvnig- ?oversedation -CXR;Extensive mixed interstitial alveolar airspace disease bilaterally unchanged Low-grade fever. probable due to SBO ,resolved Leukocytosis, mild- recurrent; improving- ?2ry to possible malignancy Probable small bowel obstruction Recent history of polymicrobial gram-negative bacteremia including Stenotrophomonas maltophilia and Enterobacter. History of Aggie esophagitis. History of C. difficile in the past. Air anterior to the liver , ? free intraperitoneal air ( Surg doubt perforation ) Lung and liver masses Ro Malignancy CT: Pleural-based mass at the left lung base / Moderate-sized left pleural effusion, left-sided pleural nodularity and retroperitoneal and paraspinal nodules/masses. Left inferior hilar mass lesion partially visualized. New low- attenuation liver lesion ( concerning for malignancy/metastatic disease ) Pl effusion SP ultrasound-guided thoracentesis, 960 cc ( m/l 2/2 mets, no evid of Empyema ) -exudate fluid: WBC 613 (n 6), pH 8, lguc 98, prot 4.6 (serum 8.4); cx stain: GRAM STAIN Final GRAM STAIN RESULT FEW WHITE BLOOD CELLS NO ORGANISMS SEEN cx negative prelime cytology report: malignant non-small cells in the pleural cavity. Crohn's disease. History of bowel obstruction x2 with lysis of adhesions in 2004. COPD. History of chronic pain syndrome, on morphine pump. CVA in 2004. Seizure disorder. PLAN: cont to monitor off abx, unless febrile, worsening WBC. -11/17 SP Zosyn #5 Monitor CBC and BMP. follow GI recommendations hem, surg f/u plan for comfort care; ongoing discussion on ICU- bipap management Subjective Allergies: Coded Allergies: No Known Allergies (Verified , 05/21/06) Subjective afebrile leukocytosis improving remains on Bipap Objective Vital Signs Last 24 Hour Vital Signs Date Time Temp Pulse Resp B/P (MAP) Pulse Ox O2 Delivery O2 Flow Rate FiO2 11/24/17 15:12 127 22 100 Bi-pap 50 11/24/17 15:10 123 20 100 Facial 50 11/24/17 15:00 123 21 126/84 100 Bi-pap 50 11/24/17 15:00 122 14 93 Bi-pap 50 11/24/17 14:00 129 21 126/80 100 Bi-pap 50 2/18 13:00 126 25 98 Facial 50 18 13:00 126 25 136/90 100 Bi-pap 50 11/24/18 12:00 50 18 12:00 129 218 12:00 98.6 132 13 135/86 100 Bi-pap 70 98.6 11/24/17 11:09 130 20 98 Facial 50 11/24/17 11:09 Bi-pap 11/24/17 11:09 Bi-pap 11/24/17 11:00 132 13 127/85 100 Bi-pap 50 11/24/17 10:00 132 17 123/84 100 Bi-pap 50 11/24/17 09:08 130 15 100 Facial 50 11/24/17 09:00 132 17 119/82 97 Bi-pap 70 11/24/17 09:00 50 11/24/17 08:00 98.6 132 16 128/90 100 Bi-pap 70 98.6 11/24/17 08:00 131 11/24/17 07:02 Bi-pap 11/24/17 07:01 Bi-pap 11/24/17 07:01 Bi-pap 11/24/17 07:01 100 Bi-pap 50 11/24/17 07:00 132 16 132/94 100 Bi-pap 70 11/24/17 06:58 130 15 100 Facial 50 11/24/17 06:00 123 16 106/64 100 Bi-pap 70 2/ 05:00 130 18 127/76 100 Bi-pap 70 218 04:48 130 17 100 Facial 70 2/18 04:00 130 2/18 04:00 70 218 04:00 98.5 130 18 108/77 100 Bi-pap 70 98.5 18 03:40 124 16 100 Bi-pap 52/18 03:30 122 16 96 Bi-pap 2/18 03:30 124 18 99 Facial 70 2/18 03:00 125 18 110/67 98 Bi-pap 70 2/18 02:00 130 18 106/69 98 Bi-pap 70 2/18 01:30 132 16 100 Facial 70 218 01:00 98.5 126 18 100/66 98 Bi-pap 70 98.5 11/24/17 00:00 98.5 130 18 119/77 98 Bi-pap 70 98.5 11/24/17 00:00 70 11/23/17 23:26 Bi-pap 11/23/17 23:26 130 25 95 Bi-pap 11/23/17 23:25 131 14 96 Facial 70 11/23/17 23:00 130 19 117/77 98 Bi-pap 70 11/23/17 22:00 121 16 119/88 98 Bi-pap 70 11/23/17 21:30 130 17 95 Facial 70 11/23/17 21:00 121 18 127/74 98 Bi-pap 70 11/23/17 20:00 131 11/23/17 20:00 70 11/23/17 20:00 98.5 131 18 121/72 98 Bi-pap 70 98.5 11/23/17 19:51 Bi-pap 11/23/17 19:50 Bi-pap 11/23/17 19:50 Bi-pap 11/23/17 19:45 133 20 94 Bi-pap 50 11/23/17 19:30 133 20 94 Facial 50 11/23/17 19:00 128 18 118/72 100 Bi-pap 50 11/23/17 18:00 125 18 112/70 99 Bi-pap 50 11/23/17 17:00 122 16 116/75 100 Bi-pap 50 11/23/17 16:44 130 22 99 Facial 40 11/23/17 16:00 98.6 135 17 110/71 96 Bi-pap 50 98.6 11/23/17 16:00 50 11/23/17 16:00 125 Height (Feet): 5 Height (Inches): 6.00 Weight (Pounds): 129 Objective HEENT: anicteric Respiratory/Chest: normal breath sounds Cardiovascular: regular rhythm Abdomen: tender Laboratory Tests Test 11/24/17 04:10 11/24/17 11:15 White Blood Count 12.2 K/UL (4.8-10.8) H Red Blood Count 4.66 M/UL (4.20-5.40) Hemoglobin 14.0 G/DL (12.0-16.0) Hematocrit 41.0 % (37.0-47.0) Mean Corpuscular Volume 88 FL (80-99) Mean Corpuscular Hemoglobin 30.1 PG (27.0-31.0) Mean Corpuscular Hemoglobin Concent 34.2 G/DL (32.0-36.0) Red Cell Distribution Width 14.9 % (11.6-14.8) H Platelet Count 185 K/UL (150-450) Mean Platelet Volume 7.8 FL (6.5-10.1) Neutrophils (%) (Auto) 78.8 % (45.0-75.0) H Lymphocytes (%) (Auto) 16.7 % (20.0-45.0) L Monocytes (%) (Auto) 3.3 % (1.0-10.0) Eosinophils (%) (Auto) 0.8 % (0.0-3.0) Basophils (%) (Auto) 0.5 % (0.0-2.0) Sodium Level 142 MMOL/L (136-145) Potassium Level 3.5 MMOL/L (3.5-5.1) Chloride Level 101 MMOL/L (98-107) Carbon Dioxide Level 29 MMOL/L (21-32) Anion Gap 12 mmol/L (5-15) Blood Urea Nitrogen 26 mg/dL (7-18) H Creatinine 1.0 MG/DL (0.55-1.30) Estimat Glomerular Filtration Rate > 60 mL/min (>60) Glucose Level 118 MG/DL (74-106) H Calcium Level 10.0 MG/DL (8.5-10.1) Total Bilirubin 0.5 MG/DL (0.2-1.0) Aspartate Amino Transf (AST/SGOT) 95 U/L (15-37) H Alanine Aminotransferase (ALT/SGPT) 31 U/L (12-78) Alkaline Phosphatase 147 U/L (46-116) H Pro-B-Type Natriuretic Peptide 3659 pg/mL (0-125) H Total Protein 9.0 G/DL (6.4-8.2) H Albumin 1.7 G/DL (3.4-5.0) L Globulin 6.3 g/dL Arterial Blood pH 7.416 (7.350-7.450) Arterial Blood Partial Pressure CO2 48.5 mmHg (35.0-45.0) H Arterial Blood Partial Pressure O2 76.4 mmHg (75.0-100.0) Arterial Blood HCO3 30.5 mmol/L (22.0-26.0) H Arterial Blood Oxygen Saturation 93.3 % (92.0-98.0) Arterial Blood Base Excess 5.0 Zeyad Test Positive Current Medications Medications (Trade) Dose Ordered Sig/Vaibhav Route PRN Reason Start Time Stop Time Status Last Admin Dose Admin Acetaminophen (Tylenol) 650 mg Q4H PRN ORAL fever (temp>100.5F) 11/23/17 00:30 12/11/17 20:29 Acetaminophen/ Hydrocodone Bitart (Dubach 10/325) 1 tab Q4H PRN ORAL Pain Scale (3-5) 11/23/17 01:00 11/25/17 20:59 Al Hydroxide/Mg Hydroxide (Mylanta II) 30 ml Q6H PRN ORAL dyspepsia 11/23/17 02:30 12/11/17 20:29 Atorvastatin Calcium (Lipitor) 40 mg BEDTIME ORAL 11/23/17 21:00 12/11/17 20:59 11/23/17 20:57 Bupropion HCl (Wellbutrin) 100 mg DAILY ORAL 11/23/17 09:00 12/12/17 08:59 11/24/17 08:53 Chlorhexidine Gluconate (Leah-Hex 2%) 1 applic DAILY@1999 TOPIC 11/23/17 20:00 12/17/17 19:59 11/23/17 20:07 Dextrose (Dextrose 50%) 50 ml STAT PRN IV Hypoglycemia BS<60mg/dL 11/23/17 20:30 12/22/17 20:29 Diphenhydramine HCl (Benadryl) 25 mg Q6H PRN ORAL Itching/Pruritis 11/23/17 02:30 12/11/17 20:29 Duloxetine HCl (Cymbalta) 90 mg DAILY ORAL 11/23/17 09:00 12/12/17 08:59 11/24/17 08:52 Furosemide (Lasix) 40 mg EVERY 8 HOURS IV 11/23/17 06:00 12/22/17 21:59 11/24/17 14:42 Gabapentin (Neurontin) 300 mg THREE TIMES A DAY ORAL 11/23/17 09:00 12/12/17 09:59 11/24/17 12:16 Heparin Sodium (Porcine) (Heparin 5000 units/ml) 5,000 units EVERY 12 HOURS SUBQ 11/23/17 09:00 12/11/17 20:59 11/24/17 09:10 Hydromorphone HCl (Dilaudid) 0.5 mg Q4H PRN IVP PAIN SCALE 4-10 11/23/17 01:00 11/25/17 20:59 Levalbuterol HCl (Xopenex) 0.625 mg Q4HRT HHN 11/22/17 23:00 11/27/17 14:59 11/24/17 15:08 Levetiracetam (Keppra) 1,000 mg Q8H ORAL 11/23/17 00:00 12/16/17 07:59 11/24/17 08:52 Levothyroxine Sodium (Synthroid) 75 mcg ACBREAKFAST ORAL 11/23/17 06:30 12/12/17 06:29 11/24/17 06:44 Methylnaltrexone Loco (Relistor) 12 mg DAILY SUBQ 11/23/17 09:00 12/12/17 10:14 11/24/17 08:51 Metoclopramide HCl (Reglan) 10 mg Q6H PRN IVP Unrelieved Severe Nausea 11/23/17 02:30 12/11/17 20:29 Nitroglycerin (Ntg) 0.4 mg Q5M X 3 DOSES PRN SL Prn Chest Pain 11/22/17 23:00 12/11/17 10:59 Ondansetron HCl (Zofran) 4 mg Q6H PRN IVP Nausea & Vomiting 11/23/17 02:30 12/11/17 20:29 Pantoprazole (Protonix) 40 mg 0600 ORAL 11/23/17 09:00 12/23/17 08:59 11/24/17 06:00 Polyethylene Glycol (Miralax) 17 gm HSPRN PRN ORAL Constipation 11/23/17 20:30 12/22/17 20:29 Promethazine HCl 25 mg/Dextrose 56 ml @ 110 mls/hr Q6H PRN IV Refractory N/V 11/23/17 03:00 12/11/17 20:59 Simethicone (Mylicon) 80 mg QIDPRN PRN ORAL gas 11/23/17 20:30 12/22/17 20:29 Theophylline (Erwin-Dur) 100 mg Q12HR ORAL 11/23/17 09:00 12/11/17 20:59 11/24/17 08:52 Topiramate (Topamax) 25 mg EVERY 12 HOURS ORAL 11/23/17 09:00 12/11/17 20:59 11/24/17 08:51 Trazodone HCl (Desyrel) 200 mg BEDTIME ORAL 11/23/17 21:00 12/11/17 20:59 11/23/17 20:56 Kathleen Lafleur M.D. November 24, 2017 15:21
--- NOTE | 2017-11-24 15:23 | General Progress Note ---
Progress Note Progress Note Met with pts son, Mikey, who is the speaker of the rest of the family, (two other brothers). He agreed with DNR. He will call the rest of the family members to come and see her for the last time and then he wants the BIPAP to be removed and pt to receive comfort and end of life care. Rob Wagner MD November 24, 2017 15:23
--- NOTE | 2017-11-24 16:25 | General Surgery Progress Note ---
General Surgery-Progress Note Subjective Symptoms: worse Additional Comments does not look so well. deteriorating Objective Last 24 Hour Vital Signs Date Time Temp Pulse Resp B/P (MAP) Pulse Ox O2 Delivery O2 Flow Rate FiO2 11/24/17 16:00 98.2 136 13 125/91 94 Bi-pap 70 98.2 11/24/17 16:00 50 11/24/17 15:12 127 22 100 Bi-pap 50 11/24/17 15:10 123 20 100 Facial 50 11/24/17 15:00 123 21 126/84 100 Bi-pap 50 2/ 15:00 122 14 93 Bi-pap 50 11/24/17 14:00 129 21 126/80 100 Bi-pap 50 11/24/17 13:00 126 25 98 Facial 50 11/24/17 13:00 126 25 136/90 100 Bi-pap 50 11/24/17 12:00 50 11/24/17 12:00 129 11/24/17 12:00 98.6 132 13 135/86 100 Bi-pap 70 98.6 11/24/17 11:09 130 20 98 Facial 50 11/24/17 11:09 Bi-pap 11/24/17 11:09 Bi-pap 11/24/17 11:00 132 13 127/85 100 Bi-pap 50 11/24/17 10:00 132 17 123/84 100 Bi-pap 50 11/24/17 09:08 130 15 100 Facial 50 11/24/17 09:00 132 17 119/82 97 Bi-pap 70 11/24/17 09:00 50 11/24/17 08:00 98.6 132 16 128/90 100 Bi-pap 70 98.6 11/24/17 08:00 131 11/24/17 07:02 Bi-pap 11/24/17 07:01 Bi-pap 11/24/17 07:01 Bi-pap 11/24/17 07:01 100 Bi-pap 50 11/24/17 07:00 132 16 132/94 100 Bi-pap 70 218 06:58 130 15 100 Facial 50 2 06:00 123 16 106/64 100 Bi-pap 70 2/18 05:00 130 18 127/76 100 Bi-pap 70 2/18 04:48 130 17 100 Facial 70 11/24/17 04:00 130 5/2/18 04:00 70 11/24/17 04:00 98.5 130 18 108/77 100 Bi-pap 70 98.5 11/24/17 03:40 124 16 100 Bi-pap 11/24/17 03:30 122 16 96 Bi-pap 11/24/17 03:30 124 18 99 Facial 70 11/24/17 03:00 125 18 110/67 98 Bi-pap 70 11/24/17 02:00 130 18 106/69 98 Bi-pap 70 11/24/17 01:30 132 16 100 Facial 70 11/24/17 01:00 98.5 126 18 100/66 98 Bi-pap 70 98.5 11/24/17 00:00 98.5 130 18 119/77 98 Bi-pap 70 98.5 11/24/17 00:00 70 11/23/17 23:26 Bi-pap 11/23/17 23:26 130 25 95 Bi-pap 11/23/17 23:25 131 14 96 Facial 70 11/23/17 23:00 130 19 117/77 98 Bi-pap 70 11/23/17 22:00 121 16 119/88 98 Bi-pap 70 11/23/17 21:30 130 17 95 Facial 70 11/23/17 21:00 121 18 127/74 98 Bi-pap 70 11/23/17 20:00 131 11/23/17 20:00 70 11/23/17 20:00 98.5 131 18 121/72 98 Bi-pap 70 98.5 11/23/17 19:51 Bi-pap 11/23/17 19:50 Bi-pap 11/23/17 19:50 Bi-pap 11/23/17 19:45 133 20 94 Bi-pap 50 11/23/17 19:30 133 20 94 Facial 50 11/23/17 19:00 128 18 118/72 100 Bi-pap 50 11/23/17 18:00 125 18 112/70 99 Bi-pap 50 11/23/17 17:00 122 16 116/75 100 Bi-pap 50 11/23/17 16:44 130 22 99 Facial 40 I&O Intake and Output 11/23/17 11/24/17 19:00 07:00 Output Total 650 ml 600 ml Balance -650 ml -600 ml Output Urine Total 650 ml 600 ml Drains: none Cardiovascular: RSR Respiratory: decreased breath sounds Abdomen: soft, distended, present bowel sounds Extremities: no cyanosis Laboratory Tests Test 11/24/17 04:10 11/24/17 11:15 White Blood Count 12.2 K/UL (4.8-10.8) H Red Blood Count 4.66 M/UL (4.20-5.40) Hemoglobin 14.0 G/DL (12.0-16.0) Hematocrit 41.0 % (37.0-47.0) Mean Corpuscular Volume 88 FL (80-99) Mean Corpuscular Hemoglobin 30.1 PG (27.0-31.0) Mean Corpuscular Hemoglobin Concent 34.2 G/DL (32.0-36.0) Red Cell Distribution Width 14.9 % (11.6-14.8) H Platelet Count 185 K/UL (150-450) Mean Platelet Volume 7.8 FL (6.5-10.1) Neutrophils (%) (Auto) 78.8 % (45.0-75.0) H Lymphocytes (%) (Auto) 16.7 % (20.0-45.0) L Monocytes (%) (Auto) 3.3 % (1.0-10.0) Eosinophils (%) (Auto) 0.8 % (0.0-3.0) Basophils (%) (Auto) 0.5 % (0.0-2.0) Sodium Level 142 MMOL/L (136-145) Potassium Level 3.5 MMOL/L (3.5-5.1) Chloride Level 101 MMOL/L (98-107) Carbon Dioxide Level 29 MMOL/L (21-32) Anion Gap 12 mmol/L (5-15) Blood Urea Nitrogen 26 mg/dL (7-18) H Creatinine 1.0 MG/DL (0.55-1.30) Estimat Glomerular Filtration Rate > 60 mL/min (>60) Glucose Level 118 MG/DL (74-106) H Calcium Level 10.0 MG/DL (8.5-10.1) Total Bilirubin 0.5 MG/DL (0.2-1.0) Aspartate Amino Transf (AST/SGOT) 95 U/L (15-37) H Alanine Aminotransferase (ALT/SGPT) 31 U/L (12-78) Alkaline Phosphatase 147 U/L (46-116) H Pro-B-Type Natriuretic Peptide 3659 pg/mL (0-125) H Total Protein 9.0 G/DL (6.4-8.2) H Albumin 1.7 G/DL (3.4-5.0) L Globulin 6.3 g/dL Arterial Blood pH 7.416 (7.350-7.450) Arterial Blood Partial Pressure CO2 48.5 mmHg (35.0-45.0) H Arterial Blood Partial Pressure O2 76.4 mmHg (75.0-100.0) Arterial Blood HCO3 30.5 mmol/L (22.0-26.0) H Arterial Blood Oxygen Saturation 93.3 % (92.0-98.0) Arterial Blood Base Excess 5.0 Zeyad Test Positive Plan Problems: (1) Intractable abdominal pain Assessment & Plan: 66F with abdominal pain. very complex medical and surgical history. now with complex CT findings of left pleural effusion, left lower lung mass, large mediastinal and periaortic lymph nodes, new liver lesions, and air around the liver. unable to tell if bowel loop (possible blind end from prior surgery) noted in right upper quadrant above liver or if abscess or if free air. exam not consistent with perforation and no significant free fluid noted on CT or area of perforation. contrast into distal bowel without leak. initial leukocytosis resolved. low grade persistent fevers. recent cough. unfortunately no clear explanation as to patients current condition. lung mass , effusion, new liver masses, and nodes very concerning for malignant process. Exam stable compared to prior exams (patient seen during last admission and known to me). will need much more extensive work up. I discussed these findings with patient. I explained possible need for urgent surgery but given history and complex surgical history we will monitor clinically first. if declines will proceed with surgery which is VERY high risk in her. if stable will continue with work up. patient and partner express understand and agree with plan. s/p thoracentesis 11/12. malignant non small cell cancer CT reviewed. Path reviewed Discussed with patient Need tissue diagnosis. unfortunately path unable to determine etiology based on cytology currently in icu and needs to stabilize prior to considerations for CT guided biopsy for tissue diagnosis. from report family wants comfort care. -regular diet -monitor exam clinically -trend labs -iv abx -will follow with recs. thank you for this consultation. Wolf Quan November 24, 2017 16:25
[2017-11-24] MEDS: Atorvastatin 20mg tab ORAL SCH (21:20)
[2017-11-24] MEDS: TraZODone 100mg tab ORAL SCH (21:20)
[2017-11-24] MEDS: Dyna-Hex 2% Top Sol 2oz TOPIC SCH (21:45)
--- NOTE | 2017-11-24 22:55 | General Progress Note ---
Assessment/Plan Assessment/Plan IMPRESSION/RECS: #. Stage IV malignancy, potentially lung cancer given pattern of spread, proven malignancy on pleural fluid. Has a left lower lobe lung mass. Left inferior hilar mass. Left pleural base lung mass. Left pleural effusion. Retroperitoneal lymphadenopathy. Multiple low-attenuation liver lesions. --> Discussed with son, RN, Primary MD, given poor performance status recommend palliative/hospice care --> Do not recommend any further diagnosis/tissue given poor state, is not a chemotherapy candidate #. Anemia due to underlying malignancy - continue to closely monitor --> hgb goal is >7. Transfuse if needed. #. Crohn disease. #. Opioid dependence. #. Chronic obstructive pulmonary disease. #. History of smoking. #. Emphysema. #. Perianal abscess. #. Intractable abdominal pain. #. Status post morphine pump placement. #. Status post exploratory laparotomy. #. Pneumoperitoneum. Subjective Date patient seen: November 23, 2017 Constitutional: Denies: no symptoms, chills, diaphoresis, fever, malaise, weakness, other HEENT: Denies: no symptoms, eye pain, blurred vision, tearing, double vision, ear pain, ear discharge, nose pain, nose congestion, throat pain, throat swelling, mouth pain, mouth swelling, other Cardiovascular: Denies: no symptoms, chest pain, edema, irregular heart rate, lightheadedness, palpitations, syncope, other Respiratory: Denies: no symptoms, cough, orthopnea, shortness of breath, SOB with excertion, SOB at rest, sputum, stridor, wheezing, other Gastrointestinal/Abdominal: Denies: no symptoms, abdomen distended, abdominal pain, black stools, tarry stools, blood in stool, constipated, diarrhea, difficulty swallowing, nausea, poor appetite, poor fluid intake, rectal bleeding , vomiting, other Genitourinary: Denies: no symptoms, burning, discharge, frequency, flank pain, hematuria, incontinence, pain, urgency, other Neurologic/Psychiatric: Denies: no symptoms, anxiety, depressed, emotional problems, headache, numbness, paresthesia, pre-existing deficit, seizure, tingling, tremors, weakness, other Hematologic/Lymphatic: Reports: anemia Allergies: Coded Allergies: No Known Allergies (Verified , 05/21/06) Subjective Lethargic. No acute events. ICU status. Objective Last 24 Hour Vital Signs Date Time Temp Pulse Resp B/P (MAP) Pulse Ox O2 Delivery O2 Flow Rate FiO2 11/24/17 22:45 Bi-pap 11/24/17 22:44 134 18 99 11/24/17 22:43 134 17 99 Facial 60 11/24/17 20:35 133 32 97 Facial 70 11/24/17 20:00 70 11/24/17 19:05 Bi-pap 11/24/17 19:04 131 11/24/17 19:03 131 17 94 Facial 70 11/24/17 19:00 134 17 116/76 100 Bi-pap 70 11/24/17 18:00 135 17 140/87 100 Bi-pap 70 11/24/17 17:00 135 17 133/76 100 Bi-pap 70 11/24/17 16:58 128 30 98 Facial 70 11/24/17 16:00 136 11/24/17 16:00 98.2 136 13 125/91 94 Bi-pap 70 98.2 11/24/17 16:00 50 11/24/17 15:12 127 22 100 Bi-pap 50 11/24/17 15:10 123 20 100 Facial 50 11/24/17 15:00 123 21 126/84 100 Bi-pap 50 11/24/17 15:00 122 14 93 Bi-pap 50 11/24/17 14:00 129 21 126/80 100 Bi-pap 50 11/24/17 13:00 126 25 98 Facial 50 11/24/17 13:00 126 25 136/90 100 Bi-pap 50 11/24/17 12:00 50 11/24/17 12:00 129 11/24/17 12:00 98.6 132 13 135/86 100 Bi-pap 70 98.6 11/24/17 11:09 130 20 98 Facial 50 11/24/17 11:09 Bi-pap 11/24/17 11:09 Bi-pap 11/24/17 11:00 132 13 127/85 100 Bi-pap 50 11/24/17 10:00 132 17 123/84 100 Bi-pap 50 11/24/17 09:08 130 15 100 Facial 50 11/24/17 09:00 132 17 119/82 97 Bi-pap 70 11/24/17 09:00 50 11/24/17 08:00 98.6 132 16 128/90 100 Bi-pap 70 98.6 11/24/17 08:00 131 11/24/17 07:02 Bi-pap 11/24/17 07:01 Bi-pap 11/24/17 07:01 Bi-pap 11/24/17 07:01 100 Bi-pap 50 11/24/17 07:00 132 16 132/94 100 Bi-pap 70 11/24/17 06:58 130 15 100 Facial 50 11/24/17 06:00 123 16 106/64 100 Bi-pap 70 11/24/17 05:00 130 18 127/76 100 Bi-pap 70 11/24/17 04:48 130 17 100 Facial 70 11/24/17 04:00 130 11/24/17 04:00 70 11/24/17 04:00 98.5 130 18 108/77 100 Bi-pap 70 98.5 11/24/17 03:40 124 16 100 Bi-pap 11/24/17 03:30 122 16 96 Bi-pap 11/24/17 03:30 124 18 99 Facial 70 11/24/17 03:00 125 18 110/67 98 Bi-pap 70 11/24/17 02:00 130 18 106/69 98 Bi-pap 70 11/24/17 01:30 132 16 100 Facial 70 11/24/17 01:00 98.5 126 18 100/66 98 Bi-pap 70 98.5 11/24/17 00:00 98.5 130 18 119/77 98 Bi-pap 70 98.5 11/24/17 00:00 70 11/23/17 23:26 Bi-pap 11/23/17 23:26 130 25 95 Bi-pap 11/23/17 23:25 131 14 96 Facial 70 11/23/17 23:00 130 19 117/77 98 Bi-pap 70 Intake and Output 11/23/17 11/24/17 19:00 07:00 Output Total 650 ml 600 ml Balance -650 ml -600 ml Output Urine Total 650 ml 600 ml Laboratory Tests 11/24/17 04:10: White Blood Count 12.2H, Red Blood Count 4.66, Hemoglobin 14.0, Hematocrit 41.0 , Mean Corpuscular Volume 88, Mean Corpuscular Hemoglobin 30.1, Mean Corpuscular Hemoglobin Concent 34.2, Red Cell Distribution Width 14.9H, Platelet Count 185, Mean Platelet Volume 7.8, Neutrophils (%) (Auto) 78.8H, Lymphocytes (%) (Auto) 16.7L, Monocytes (%) (Auto) 3.3, Eosinophils (%) (Auto) 0.8, Basophils (%) (Auto) 0.5, Sodium Level 142, Potassium Level 3.5, Chloride Level 101, Carbon Dioxide Level 29, Anion Gap 12, Blood Urea Nitrogen 26H, Creatinine 1.0, Estimat Glomerular Filtration Rate > 60, Glucose Level 118H, Calcium Level 10.0, Total Bilirubin 0.5, Aspartate Amino Transf (AST/SGOT) 95H, Alanine Aminotransferase (ALT/SGPT) 31, Alkaline Phosphatase 147H, Pro-B-Type Natriuretic Peptide 3659H, Total Protein 9.0H, Albumin 1.7L, Globulin 6.3 11/24/17 11:15: Arterial Blood pH 7.416, Arterial Blood Partial Pressure CO2 48.5H, Arterial Blood Partial Pressure O2 76.4, Arterial Blood HCO3 30.5H, Arterial Blood Oxygen Saturation 93.3, Arterial Blood Base Excess 5.0, Zeyad Test Positive Height (Feet): 5 Height (Inches): 6.00 Weight (Pounds): 129 General Appearance: moderate distress Cardiovascular: tachycardia Respiratory/Chest: decreased breath sounds, crackles/rales Abdomen: normal bowel sounds, non tender Connor Bains MD November 24, 2017 22:55
[2017-11-25] VITALS (16 sets, daily range): BP systolic 96–140; BP diastolic 57–91
[2017-11-25] MEDS: Levalbuterol Inh UD 1.25mg/0.5ml HHN SCH ×6 (03:00→23:00)
[2017-11-25 05:03] LABS: ALANINE AMINOTRANSFERASE 37 U/L (12-78); ALBUMIN 1.8 G/DL (3.4-5.0); ALKALINE PHOSPHATASE 156 U/L (46-116); ANION GAP 12 mmol/L (5-15); ASPARTATE AMINO TRANSFERASE 119 U/L (15-37); BILIRUBIN,TOTAL 0.5 MG/DL (0.2-1.0); BLOOD UREA NITROGEN 48 mg/dL (7-18); CALCIUM 10.3 MG/DL (8.5-10.1); CARBON DIOXIDE 31 MMOL/L (21-32); CHLORIDE 104 MMOL/L (98-107); CREATININE 1.2 MG/DL (0.55-1.30); PHOSPHORUS 4.9 MG/DL (2.5-4.9); POTASSIUM 4.5 MMOL/L (3.5-5.1); SODIUM 147 MMOL/L (136-145)
[2017-11-25 05:04] LABS: BASOPHILS % (AUTO) 0.7 % (0.0-2.0); EOSINOPHILS % (AUTO) 0.7 % (0.0-3.0); HEMATOCRIT 43.6 % (37.0-47.0); HEMOGLOBIN 14.5 G/DL (12.0-16.0); LYMPHOCYTES % (AUTO) 16.8 % (20.0-45.0); MEAN CORPUSCULAR VOLUME 89 FL (80-99); NEUTROPHILS % (AUTO) 77.8 % (45.0-75.0); PLATELET COUNT 170 K/UL (150-450); RED BLOOD COUNT 4.91 M/UL (4.20-5.40); RED CELL DISTRIBUTION WIDTH 14.7 % (11.6-14.8); WHITE BLOOD COUNT 12.8 K/UL (4.8-10.8)
[2017-11-25] MEDS: Relistor 12mg/0.6ml Vial SUBQ SCH (09:00)
[2017-11-25] MEDS ORDERED: NS 500ML ONE (09:15)
--- NOTE | 2017-11-25 09:39 | General Progress Note ---
Assessment/Plan Assessment/Plan (1) Chronic abdominal pain (2) Chronic pancreatitis (3) Crohn's disease (4) Herniated nucleus pulposus, lumbar (5) Lumbar spondylosis (6) Radiculopathy of lumbar region (7) Lung mass Pt will be continued on Neurontin, Dilaudid and [place] and pt has intrathecal pump. HOLD OPIOIDS FOR OVERSEDATION OR SBP<90 OR DBP<60 OR O2SAT<92% OR RR<12 Pt was d/w Dr. Malhotra and he concurred. Subjective Date patient seen: November 25, 2017 Time patient seen: 08:45 - am ROS Limited/Unobtainable: Yes Allergies: Coded Allergies: No Known Allergies (Verified , 05/21/06) Subjective The patient is in bed no signs of pain at this time slightly confused follows minimal commands. Bipap applied however son and family will be making the patient DNR/DNI. Objective Last 24 Hour Vital Signs Date Time Temp Pulse Resp B/P (MAP) Pulse Ox O2 Delivery O2 Flow Rate FiO2 11/25/17 09:07 138 23 99 Facial 40 11/25/17 08:00 127 11/25/17 08:00 98.2 107 18 96/57 100 Bi-pap 40 98.2 11/25/17 07:00 131 18 121/80 98 Bi-pap 40 11/25/17 06:44 139 22 99 Facial 40 11/25/17 06:44 139 22 98 Bi-pap 40 11/25/17 06:44 Bi-pap 11/25/17 06:00 133 18 134/79 98 Bi-pap 40 11/25/17 05:00 135 18 121/84 98 Bi-pap 40 11/25/17 05:00 40 11/25/17 04:52 131 15 96 Facial 40 11/25/17 04:00 50 11/25/17 04:00 98.0 133 17 119/77 98 Bi-pap 40 98.0 11/25/17 04:00 135 11/25/17 03:03 Bi-pap 11/25/17 03:03 139 39 99 Bi-pap 40 11/25/17 03:02 139 33 99 Facial 40 11/25/17 03:00 133 15 119/77 98 Bi-pap 50 11/25/17 02:00 133 15 116/71 100 Bi-pap 50 5/3/18 01:00 97.9 135 15 115/80 99 Bi-pap 50 97.9 18 01:00 50 3/18 00:49 133 16 100 Facial 50 11/25/17 00:00 134 /10/10 00:00 97.9 137 17 111/77 99 Bi-pap 60 97.9 11/25/17 00:00 60 11/24/17 23:00 132 15 111/77 99 Bi-pap 60 11/24/17 23:00 60 11/24/17 22:45 Bi-pap 11/24/17 22:44 134 18 99 2/18 22:43 134 17 99 Facial 60 11/24/17 22:00 129 15 121/77 100 Bi-pap 70 11/24/17 21:00 133 15 117/76 97 Bi-pap 70 11/24/17 20:35 133 32 97 Facial 70 11/24/17 20:00 70 11/24/17 20:00 98.7 133 17 126/80 98 Bi-pap 70 98.7 11/24/17 20:00 136 11/24/17 19:05 Bi-pap 11/24/17 19:04 131 2 19:03 131 17 94 Facial 70 11/24/17 19:00 134 17 116/76 100 Bi-pap 70 11/24/17 18:00 135 17 140/87 100 Bi-pap 70 2/18 17:00 135 17 133/76 100 Bi-pap 70 2/18 16:58 128 30 98 Facial 70 11/24/17 16:00 136 2/18 16:00 98.2 136 13 125/91 94 Bi-pap 70 98.2 11/24/17 16:00 50 2/18 15:12 127 22 100 Bi-pap 50 2/18 15:10 123 20 100 Facial 50 2/18 15:00 123 21 126/84 100 Bi-pap 50 2/18 15:00 122 14 93 Bi-pap 50 2/18 14:00 129 21 126/80 100 Bi-pap 50 /2/18 13:00 126 25 98 Facial 50 2/18 13:00 126 25 136/90 100 Bi-pap 50 2/18 12:00 50 5/2/18 12:00 129 11/24/17 12:00 98.6 132 13 135/86 100 Bi-pap 70 98.6 11/24/17 11:09 130 20 98 Facial 50 11/24/17 11:09 Bi-pap 11/24/17 11:09 Bi-pap 11/24/17 11:00 132 13 127/85 100 Bi-pap 50 11/24/17 10:00 132 17 123/84 100 Bi-pap 50 Intake and Output 11/24/17 11/25/17 19:00 07:00 # Voids 3 4 Laboratory Tests 11/24/17 11:15: Arterial Blood pH 7.416, Arterial Blood Partial Pressure CO2 48.5H, Arterial Blood Partial Pressure O2 76.4, Arterial Blood HCO3 30.5H, Arterial Blood Oxygen Saturation 93.3, Arterial Blood Base Excess 5.0, Zeyad Test Positive 11/25/17 04:15: White Blood Count 12.8H, Red Blood Count 4.91, Hemoglobin 14.5, Hematocrit 43.6 , Mean Corpuscular Volume 89, Mean Corpuscular Hemoglobin 29.5, Mean Corpuscular Hemoglobin Concent 33.3, Red Cell Distribution Width 14.7, Platelet Count 170, Mean Platelet Volume 7.6, Neutrophils (%) (Auto) 77.8H, Lymphocytes ( %) (Auto) 16.8L, Monocytes (%) (Auto) 4.0, Eosinophils (%) (Auto) 0.7, Basophils (%) (Auto) 0.7, Sodium Level 147H, Potassium Level 4.5, Chloride Level 104, Carbon Dioxide Level 31, Anion Gap 12, Blood Urea Nitrogen 48H, Creatinine 1.2, Estimat Glomerular Filtration Rate 54.9, Glucose Level 128H, Calcium Level 10.3H, Phosphorus Level 4.9, Magnesium Level 2.1, Total Bilirubin 0.5, Aspartate Amino Transf (AST/SGOT) 119H, Alanine Aminotransferase (ALT/SGPT ) 37, Alkaline Phosphatase 156H, Total Protein 9.7H, Albumin 1.8L, Globulin 7.6 Height (Feet): 5 Height (Inches): 6.00 Weight (Pounds): 129 Objective General Appearance: on Bipap Neck: normal alignment, supple Cardiovascular: tachycardic Respiratory/Chest: decreased breath sounds Abdomen: tender, distended, intrathecal pump palpated Extremities: non-tender Edema: no edema noted JOSE ARREDONDO November 25, 2017 09:39
[2017-11-25] MEDS: Theophylline ER 100mg ORAL SCH (09:49)
[2017-11-25] MEDS: Topiramate 25mg tab ORAL SCH (09:49)
[2017-11-25] MEDS: DULoxetine 30mg cap ORAL SCH (09:49)
[2017-11-25] MEDS: Heparin 5000 units/ml inj SUBQ SCH ×2 (09:51→21:13)
--- NOTE | 2017-11-25 10:27 | Pulmonolgy Critical Care Note ---
Critical Care - Asmt/Plan Problems: (1) Acute respiratory failure (2) Malignant pleural effusion (3) Metastatic cancer (4) Lung mass (5) COPD (chronic obstructive pulmonary disease) Respiratory: monitor respiratory rate, adjust FIO2, CXR Cardiac: continue to monitor HR/BP Renal: F/U I&O, keep IV fluid, check electrolytes Infectious Disease: check cultures Gastrointestinal: hold feedings Endocrine: monitor blood sugar Hematologic: monitor H/H Neurologic: PRN Ativan, PRN Morphine Affect: PRN ativan Prophylaxis: Protonix, Heparin Disposition: keep in ICU Time Spent (Minutes): 40 Notes Reviewed: ceramic plater, renal, ID, GI Discussed with: nurses, consultants, registered nurse hh case manager, other - awaiting for the family members to come and see her before we remove the BIPAP Critical Care - Objective Last 24 Hour Vital Signs Date Time Temp Pulse Resp B/P (MAP) Pulse Ox O2 Delivery O2 Flow Rate FiO2 11/25/17 09:07 138 23 99 Facial 40 11/25/17 08:00 127 11/25/17 08:00 98.2 107 18 96/57 100 Bi-pap 40 98.2 11/25/17 07:00 131 18 121/80 98 Bi-pap 40 11/25/17 06:44 139 22 99 Facial 40 11/25/17 06:44 139 22 98 Bi-pap 40 11/25/17 06:44 Bi-pap 11/25/17 06:00 133 18 134/79 98 Bi-pap 40 11/25/17 05:00 135 18 121/84 98 Bi-pap 40 11/25/17 05:00 40 11/25/17 04:52 131 15 96 Facial 40 11/25/17 04:00 50 11/25/17 04:00 98.0 133 17 119/77 98 Bi-pap 40 98.0 11/25/17 04:00 135 11/25/17 03:03 Bi-pap 11/25/17 03:03 139 39 99 Bi-pap 40 11/25/17 03:02 139 33 99 Facial 40 11/25/17 03:00 133 15 119/77 98 Bi-pap 50 11/25/17 02:00 133 15 116/71 100 Bi-pap 50 11/25/17 01:00 97.9 135 15 115/80 99 Bi-pap 50 97.9 11/25/17 01:00 50 11/25/17 00:49 133 16 100 Facial 50 11/25/17 00:00 134 11/25/17 00:00 97.9 137 17 111/77 99 Bi-pap 60 97.9 11/25/17 00:00 60 11/24/17 23:00 132 15 111/77 99 Bi-pap 60 11/24/17 23:00 60 11/24/17 22:45 Bi-pap 11/24/17 22:44 134 18 99 11/24/17 22:43 134 17 99 Facial 60 11/24/17 22:00 129 15 121/77 100 Bi-pap 70 11/24/17 21:00 133 15 117/76 97 Bi-pap 70 11/24/17 20:35 133 32 97 Facial 70 11/24/17 20:00 70 11/24/17 20:00 98.7 133 17 126/80 98 Bi-pap 70 98.7 11/24/17 20:00 136 11/24/17 19:05 Bi-pap 11/24/17 19:04 131 11/24/17 19:03 131 17 94 Facial 70 11/24/17 19:00 134 17 116/76 100 Bi-pap 70 11/24/17 18:00 135 17 140/87 100 Bi-pap 70 11/24/17 17:00 135 17 133/76 100 Bi-pap 70 11/24/17 16:58 128 30 98 Facial 70 11/24/17 16:00 136 11/24/17 16:00 98.2 136 13 125/91 94 Bi-pap 70 98.2 11/24/17 16:00 50 11/24/17 15:12 127 22 100 Bi-pap 50 11/24/17 15:10 123 20 100 Facial 50 11/24/17 15:00 123 21 126/84 100 Bi-pap 50 11/24/17 15:00 122 14 93 Bi-pap 50 11/24/17 14:00 129 21 126/80 100 Bi-pap 50 18 13:00 126 25 98 Facial 50 11/24/17 13:00 126 25 136/90 100 Bi-pap 50 11/24/17 12:00 50 11/24/17 12:00 129 11/24/17 12:00 98.6 132 13 135/86 100 Bi-pap 70 98.6 11/24/17 11:09 130 20 98 Facial 50 11/24/17 11:09 Bi-pap 11/24/17 11:09 Bi-pap 11/24/17 11:00 132 13 127/85 100 Bi-pap 50 Status: awake Condition: critical, grave HEENT: atraumatic Neck: full ROM Lungs: rales, rhonchi Heart: HR/BP stable Abdomen: soft, non-tender, feeding tube Extremities: edema Decubiti: location Critical Care - Subjective ROS Limited/Unobtainable: Yes ICU Day: 3 Intubation Day: on BIPAP Condition: critical, grave IV Access: PICC EKG Rhythm: Sinus Tachycardia FI02: 40 Vent Support Mode: CPAP Sputum Amount: None Fluids: kvo I&O: Intake and Output 11/24/17 11/25/17 19:00 07:00 # Voids 3 4 CXR: bilateral infiltrate Labs: Laboratory Tests Test 11/24/17 11:15 11/25/17 04:15 Arterial Blood pH 7.416 (7.350-7.450) Arterial Blood Partial Pressure CO2 48.5 mmHg (35.0-45.0) H Arterial Blood Partial Pressure O2 76.4 mmHg (75.0-100.0) Arterial Blood HCO3 30.5 mmol/L (22.0-26.0) H Arterial Blood Oxygen Saturation 93.3 % (92.0-98.0) Arterial Blood Base Excess 5.0 Zeyad Test Positive White Blood Count 12.8 K/UL (4.8-10.8) H Red Blood Count 4.91 M/UL (4.20-5.40) Hemoglobin 14.5 G/DL (12.0-16.0) Hematocrit 43.6 % (37.0-47.0) Mean Corpuscular Volume 89 FL (80-99) Mean Corpuscular Hemoglobin 29.5 PG (27.0-31.0) Mean Corpuscular Hemoglobin Concent 33.3 G/DL (32.0-36.0) Red Cell Distribution Width 14.7 % (11.6-14.8) Platelet Count 170 K/UL (150-450) Mean Platelet Volume 7.6 FL (6.5-10.1) Neutrophils (%) (Auto) 77.8 % (45.0-75.0) H Lymphocytes (%) (Auto) 16.8 % (20.0-45.0) L Monocytes (%) (Auto) 4.0 % (1.0-10.0) Eosinophils (%) (Auto) 0.7 % (0.0-3.0) Basophils (%) (Auto) 0.7 % (0.0-2.0) Sodium Level 147 MMOL/L (136-145) H Potassium Level 4.5 MMOL/L (3.5-5.1) Chloride Level 104 MMOL/L (98-107) Carbon Dioxide Level 31 MMOL/L (21-32) Anion Gap 12 mmol/L (5-15) Blood Urea Nitrogen 48 mg/dL (7-18) H Creatinine 1.2 MG/DL (0.55-1.30) Estimat Glomerular Filtration Rate 54.9 mL/min (>60) Glucose Level 128 MG/DL (74-106) H Calcium Level 10.3 MG/DL (8.5-10.1) H Phosphorus Level 4.9 MG/DL (2.5-4.9) Magnesium Level 2.1 MG/DL (1.8-2.4) Total Bilirubin 0.5 MG/DL (0.2-1.0) Aspartate Amino Transf (AST/SGOT) 119 U/L (15-37) H Alanine Aminotransferase (ALT/SGPT) 37 U/L (12-78) Alkaline Phosphatase 156 U/L (46-116) H Total Protein 9.7 G/DL (6.4-8.2) H Albumin 1.8 G/DL (3.4-5.0) L Globulin 7.6 g/dL Rob Wagner MD November 25, 2017 10:27
--- NOTE | 2017-11-25 10:46 | Diagnostic Imaging Report ---
Indication: Dyspnea Comparison: 11/24/2017 A single view chest radiograph was obtained. Findings: Interstitial edema appears slightly improved although there is mild to moderate residual currently. PICC line is stable. Heart size is normal. IMPRESSION: Parenchymal opacities, primarily interstitial laterally demonstrated throughout the lungs with some interval improvement over the last 24 hours
[2017-11-25] MEDS ORDERED: D5 1/2NS 1,000 ML IV SCH ×2 (11:00→13:00)
--- NOTE | 2017-11-25 12:33 | GI Progress Note ---
Assessment/Plan Problems: (1) Crohn's disease ICD Codes: K50.90 - Crohn's disease SNOMED: 67032044 Qualifiers: Qualified Codes: K50.919 - Crohn's disease, unspecified, with unspecified complications (2) Opioid dependence ICD Codes: F11.20 - Opioid dependence SNOMED: 04798665 (3) SBO (small bowel obstruction) ICD Codes: K56.609 - Unspecified intestinal obstruction, unspecified as to partial versus complete obstruction SNOMED: 011574848 (4) Chronic abdominal pain Status: unchanged Status Narrative Discussed with Dr. Gallegos. Assessment/Plan CT AP reviewed >> Evidence of disseminated malignancy, with large left pulmonary hilar mass or adenopathy, extensive left hilar and mediastinal adenopathy, multiple pleural- based masses on the left, multiple masses within the liver, and retroperitoneal lymphadenopathy. Recommendations now DNI/DNR fu oncology recs pain mgmt poor prognosis Subjective Subjective limited Objective Last 24 Hour Vital Signs Date Time Temp Pulse Resp B/P (MAP) Pulse Ox O2 Delivery O2 Flow Rate FiO2 11/25/17 12:00 40 11/25/17 12:00 132 18 134/84 95 Bi-pap 40 11/25/17 12:00 135 11/25/17 11:42 131 20 98 Facial 40 11/25/17 11:42 129 17 99 Bi-pap 50 11/25/17 11:00 135 18 120/85 95 Bi-pap 40 11/25/17 10:00 137 21 121/91 98 Bi-pap 40 11/25/17 09:07 138 23 99 Facial 40 11/25/17 09:00 136 18 128/87 98 Bi-pap 40 11/25/17 08:00 127 11/25/17 08:00 98.2 107 18 96/57 100 Bi-pap 40 98.2 11/25/17 07:00 131 18 121/80 98 Bi-pap 40 11/25/17 06:44 139 22 99 Facial 40 11/25/17 06:44 139 22 98 Bi-pap 40 11/25/17 06:44 Bi-pap 11/25/17 06:00 133 18 134/79 98 Bi-pap 40 11/25/17 05:00 135 18 121/84 98 Bi-pap 40 11/25/17 05:00 40 11/25/17 04:52 131 15 96 Facial 40 11/25/17 04:00 50 11/25/17 04:00 98.0 133 17 119/77 98 Bi-pap 40 98.0 11/25/17 04:00 135 11/25/17 03:03 Bi-pap 11/25/17 03:03 139 39 99 Bi-pap 40 11/25/17 03:02 139 33 99 Facial 40 11/25/17 03:00 133 15 119/77 98 Bi-pap 50 11/25/17 02:00 133 15 116/71 100 Bi-pap 50 11/25/17 01:00 97.9 135 15 115/80 99 Bi-pap 50 97.9 11/25/17 01:00 50 11/25/17 00:49 133 16 100 Facial 50 11/25/17 00:00 134 11/25/17 00:00 97.9 137 17 111/77 99 Bi-pap 60 97.9 11/25/17 00:00 60 11/24/17 23:00 132 15 111/77 99 Bi-pap 60 11/24/17 23:00 60 11/24/17 22:45 Bi-pap 11/24/17 22:44 134 18 99 11/24/17 22:43 134 17 99 Facial 60 11/24/17 22:00 129 15 121/77 100 Bi-pap 70 11/24/17 21:00 133 15 117/76 97 Bi-pap 70 11/24/17 20:35 133 32 97 Facial 70 11/24/17 20:00 70 11/24/17 20:00 98.7 133 17 126/80 98 Bi-pap 70 98.7 11/24/17 20:00 136 11/24/17 19:05 Bi-pap 11/24/17 19:04 131 11/24/17 19:03 131 17 94 Facial 70 11/24/17 19:00 134 17 116/76 100 Bi-pap 70 11/24/17 18:00 135 17 140/87 100 Bi-pap 70 11/24/17 17:00 135 17 133/76 100 Bi-pap 70 11/24/17 16:58 128 30 98 Facial 70 11/24/17 16:00 136 11/24/17 16:00 98.2 136 13 125/91 94 Bi-pap 70 98.2 11/24/17 16:00 50 11/24/17 15:12 127 22 100 Bi-pap 50 11/24/17 15:10 123 20 100 Facial 50 11/24/17 15:00 123 21 126/84 100 Bi-pap 50 11/24/17 15:00 122 14 93 Bi-pap 50 11/24/17 14:00 129 21 126/80 100 Bi-pap 50 11/24/17 13:00 126 25 98 Facial 50 11/24/17 13:00 126 25 136/90 100 Bi-pap 50 Intake and Output 11/24/17 11/25/17 19:00 07:00 # Voids 3 4 Laboratory Tests Test 11/25/17 04:15 White Blood Count 12.8 K/UL (4.8-10.8) H Red Blood Count 4.91 M/UL (4.20-5.40) Hemoglobin 14.5 G/DL (12.0-16.0) Hematocrit 43.6 % (37.0-47.0) Mean Corpuscular Volume 89 FL (80-99) Mean Corpuscular Hemoglobin 29.5 PG (27.0-31.0) Mean Corpuscular Hemoglobin Concent 33.3 G/DL (32.0-36.0) Red Cell Distribution Width 14.7 % (11.6-14.8) Platelet Count 170 K/UL (150-450) Mean Platelet Volume 7.6 FL (6.5-10.1) Neutrophils (%) (Auto) 77.8 % (45.0-75.0) H Lymphocytes (%) (Auto) 16.8 % (20.0-45.0) L Monocytes (%) (Auto) 4.0 % (1.0-10.0) Eosinophils (%) (Auto) 0.7 % (0.0-3.0) Basophils (%) (Auto) 0.7 % (0.0-2.0) Sodium Level 147 MMOL/L (136-145) H Potassium Level 4.5 MMOL/L (3.5-5.1) Chloride Level 104 MMOL/L (98-107) Carbon Dioxide Level 31 MMOL/L (21-32) Anion Gap 12 mmol/L (5-15) Blood Urea Nitrogen 48 mg/dL (7-18) H Creatinine 1.2 MG/DL (0.55-1.30) Estimat Glomerular Filtration Rate 54.9 mL/min (>60) Glucose Level 128 MG/DL (74-106) H Calcium Level 10.3 MG/DL (8.5-10.1) H Phosphorus Level 4.9 MG/DL (2.5-4.9) Magnesium Level 2.1 MG/DL (1.8-2.4) Total Bilirubin 0.5 MG/DL (0.2-1.0) Aspartate Amino Transf (AST/SGOT) 119 U/L (15-37) H Alanine Aminotransferase (ALT/SGPT) 37 U/L (12-78) Alkaline Phosphatase 156 U/L (46-116) H Total Protein 9.7 G/DL (6.4-8.2) H Albumin 1.8 G/DL (3.4-5.0) L Globulin 7.6 g/dL Height (Feet): 5 Height (Inches): 6.00 Weight (Pounds): 129 General Appearance: alert Cardiovascular: normal rate Respiratory/Chest: other - bipap Tara Scott N.P. November 25, 2017 12:33
--- NOTE | 2017-11-25 13:20 | Infectious Diseases Prog Note ---
Assessment/Plan Assessment/Plan ASSESSMENT: The patient is a 66-year-old female with, Lethargy, on Bipap- improvnig- ?oversedation -CXR 11/25: Parenchymal opacities, primarily interstitial laterally demonstrated throughout the lungs with some interval improvement over the last 24 hours -CXR;Extensive mixed interstitial alveolar airspace disease bilaterally unchanged Low-grade fever. probable due to SBO ,resolved Leukocytosis, mild- recurrent; improving- ?2ry to possible malignancy Probable small bowel obstruction Recent history of polymicrobial gram-negative bacteremia including Stenotrophomonas maltophilia and Enterobacter. History of Aggie esophagitis. History of C. difficile in the past. Air anterior to the liver , ? free intraperitoneal air ( Surg doubt perforation ) Lung and liver masses Ro Malignancy CT: Pleural-based mass at the left lung base / Moderate-sized left pleural effusion, left-sided pleural nodularity and retroperitoneal and paraspinal nodules/masses. Left inferior hilar mass lesion partially visualized. New low- attenuation liver lesion ( concerning for malignancy/metastatic disease ) Pl effusion SP ultrasound-guided thoracentesis, 960 cc ( m/l 2/2 mets, no evid of Empyema ) -exudate fluid: WBC 613 (n 6), pH 8, lguc 98, prot 4.6 (serum 8.4); cx stain: GRAM STAIN Final GRAM STAIN RESULT FEW WHITE BLOOD CELLS NO ORGANISMS SEEN cx negative prelime cytology report: malignant non-small cells in the pleural cavity. Crohn's disease. History of bowel obstruction x2 with lysis of adhesions in 2004. COPD. History of chronic pain syndrome, on morphine pump. CVA in 2004. Seizure disorder. PLAN: cont to monitor off abx, unless febrile, worsening WBC. -11/17 SP Zosyn #5 Monitor CBC and BMP. follow GI recommendations hem, surg f/u plan for comfort care once all family members arrived on GABRIEL- bipap management poor px Subjective Allergies: Coded Allergies: No Known Allergies (Verified , 05/21/06) Subjective afebrile leukocytosis stable remains on Bipap on GABRIEL now Objective Vital Signs Last 24 Hour Vital Signs Date Time Temp Pulse Resp B/P (MAP) Pulse Ox O2 Delivery O2 Flow Rate FiO2 11/25/17 13:00 98.5 135 18 126/80 95 Bi-pap 40 98.5 11/25/17 12:00 40 11/25/17 12:00 132 18 134/84 95 Bi-pap 40 11/25/17 12:00 135 11/25/17 11:42 131 20 98 Facial 40 11/25/17 11:42 129 17 99 Bi-pap 50 11/25/17 11:00 135 18 120/85 95 Bi-pap 40 11/25/17 10:00 137 21 121/91 98 Bi-pap 40 11/25/17 09:07 138 23 99 Facial 40 11/25/17 09:00 136 18 128/87 98 Bi-pap 40 11/25/17 08:00 127 11/25/17 08:00 98.2 107 18 96/57 100 Bi-pap 40 98.2 11/25/17 07:00 131 18 121/80 98 Bi-pap 40 11/25/17 06:44 139 22 99 Facial 40 11/25/17 06:44 139 22 98 Bi-pap 40 11/25/17 06:44 Bi-pap 11/25/17 06:00 133 18 134/79 98 Bi-pap 40 11/25/17 05:00 135 18 121/84 98 Bi-pap 40 11/25/17 05:00 40 11/25/17 04:52 131 15 96 Facial 40 11/25/17 04:00 50 11/25/17 04:00 98.0 133 17 119/77 98 Bi-pap 40 98.0 11/25/17 04:00 135 11/25/17 03:03 Bi-pap 11/25/17 03:03 139 39 99 Bi-pap 40 11/25/17 03:02 139 33 99 Facial 40 11/25/17 03:00 133 15 119/77 98 Bi-pap 50 11/25/17 02:00 133 15 116/71 100 Bi-pap 50 11/25/17 01:00 97.9 135 15 115/80 99 Bi-pap 50 97.9 11/25/17 01:00 50 11/25/17 00:49 133 16 100 Facial 50 11/25/17 00:00 134 11/25/17 00:00 97.9 137 17 111/77 99 Bi-pap 60 97.9 11/25/17 00:00 60 11/24/17 23:00 132 15 111/77 99 Bi-pap 60 5/2/18 23:00 60 11/24/17 22:45 Bi-pap 11/24/17 22:44 134 18 99 11/24/17 22:43 134 17 99 Facial 60 11/24/17 22:00 129 15 121/77 100 Bi-pap 70 11/24/17 21:00 133 15 117/76 97 Bi-pap 70 11/24/17 20:35 133 32 97 Facial 70 11/24/17 20:00 70 11/24/17 20:00 98.7 133 17 126/80 98 Bi-pap 70 98.7 11/24/17 20:00 136 11/24/17 19:05 Bi-pap 11/24/17 19:04 131 11/24/17 19:03 131 17 94 Facial 70 11/24/17 19:00 134 17 116/76 100 Bi-pap 70 11/24/17 18:00 135 17 140/87 100 Bi-pap 70 11/24/17 17:00 135 17 133/76 100 Bi-pap 70 11/24/17 16:58 128 30 98 Facial 70 11/24/17 16:00 136 11/24/17 16:00 98.2 136 13 125/91 94 Bi-pap 70 98.2 11/24/17 16:00 50 11/24/17 15:12 127 22 100 Bi-pap 50 11/24/17 15:10 123 20 100 Facial 50 11/24/17 15:00 123 21 126/84 100 Bi-pap 50 11/24/17 15:00 122 14 93 Bi-pap 50 11/24/17 14:00 129 21 126/80 100 Bi-pap 50 Height (Feet): 5 Height (Inches): 6.00 Weight (Pounds): 129 Objective HEENT: anicteric Respiratory/Chest: normal breath sounds Cardiovascular: regular rhythm Abdomen: tender Laboratory Tests Test 11/25/17 04:15 White Blood Count 12.8 K/UL (4.8-10.8) H Red Blood Count 4.91 M/UL (4.20-5.40) Hemoglobin 14.5 G/DL (12.0-16.0) Hematocrit 43.6 % (37.0-47.0) Mean Corpuscular Volume 89 FL (80-99) Mean Corpuscular Hemoglobin 29.5 PG (27.0-31.0) Mean Corpuscular Hemoglobin Concent 33.3 G/DL (32.0-36.0) Red Cell Distribution Width 14.7 % (11.6-14.8) Platelet Count 170 K/UL (150-450) Mean Platelet Volume 7.6 FL (6.5-10.1) Neutrophils (%) (Auto) 77.8 % (45.0-75.0) H Lymphocytes (%) (Auto) 16.8 % (20.0-45.0) L Monocytes (%) (Auto) 4.0 % (1.0-10.0) Eosinophils (%) (Auto) 0.7 % (0.0-3.0) Basophils (%) (Auto) 0.7 % (0.0-2.0) Sodium Level 147 MMOL/L (136-145) H Potassium Level 4.5 MMOL/L (3.5-5.1) Chloride Level 104 MMOL/L (98-107) Carbon Dioxide Level 31 MMOL/L (21-32) Anion Gap 12 mmol/L (5-15) Blood Urea Nitrogen 48 mg/dL (7-18) H Creatinine 1.2 MG/DL (0.55-1.30) Estimat Glomerular Filtration Rate 54.9 mL/min (>60) Glucose Level 128 MG/DL (74-106) H Calcium Level 10.3 MG/DL (8.5-10.1) H Phosphorus Level 4.9 MG/DL (2.5-4.9) Magnesium Level 2.1 MG/DL (1.8-2.4) Total Bilirubin 0.5 MG/DL (0.2-1.0) Aspartate Amino Transf (AST/SGOT) 119 U/L (15-37) H Alanine Aminotransferase (ALT/SGPT) 37 U/L (12-78) Alkaline Phosphatase 156 U/L (46-116) H Total Protein 9.7 G/DL (6.4-8.2) H Albumin 1.8 G/DL (3.4-5.0) L Globulin 7.6 g/dL Current Medications Medications (Trade) Dose Ordered Sig/Vaibhav Route PRN Reason Start Time Stop Time Status Last Admin Dose Admin Acetaminophen (Tylenol) 650 mg Q4H PRN ORAL fever (temp>100.5F) 11/25/17 13:30 12/11/17 13:29 Dextrose (Dextrose 50%) 50 ml STAT PRN IV Hypoglycemia BS<60mg/dL 11/25/17 13:30 12/25/17 13:29 Dextrose/Sodium Chloride 1,000 ml @ 30 mls/hr Q24H IV 11/25/17 13:00 12/25/17 12:59 11/25/17 12:34 Heparin Sodium (Porcine) (Heparin 5000 units/ml) 5,000 units EVERY 12 HOURS SUBQ 11/25/17 21:00 12/11/17 20:59 Levalbuterol HCl (Xopenex) 0.625 mg Q4HRT HHN 11/25/17 15:00 11/27/17 14:59 Levetiracetam (Keppra) 1,000 mg Q8H ORAL 11/25/17 16:00 12/16/17 07:59 Levothyroxine Sodium (Synthroid) 75 mcg ACBREAKFAST ORAL 11/26/17 06:30 12/12/17 06:29 Nitroglycerin (Ntg) 0.4 mg Q5M X 3 DOSES PRN SL Prn Chest Pain 11/25/17 12:15 12/11/17 10:59 Ondansetron HCl (Zofran) 4 mg Q6H PRN IVP Nausea & Vomiting 11/25/17 14:30 12/11/17 20:29 Kathleen Lafleur M.D. November 25, 2017 13:20
--- NOTE | 2017-11-25 14:21 | General Progress Note ---
Assessment/Plan Problem List: (1) Crohn's disease ICD Codes: K50.90 - Crohn's disease SNOMED: 10840173 Qualifiers: Qualified Codes: K50.919 - Crohn's disease, unspecified, with unspecified complications (2) Opioid dependence ICD Codes: F11.20 - Opioid dependence SNOMED: 55705888 (3) Intractable abdominal pain ICD Codes: R10.9 - Unspecified abdominal pain SNOMED: 26946753, 950870895 (4) COPD (chronic obstructive pulmonary disease) ICD Codes: J44.9 - Chronic obstructive pulmonary disease SNOMED: 15183171 (5) Shortness of breath (6) SOB (shortness of breath) ICD Codes: R06.02 - Shortness of breath SNOMED: 390664188 (7) UTI (urinary tract infection) ICD Codes: N39.0 - Urinary tract infection, site not specified SNOMED: 43777169 (8) Lung mass ICD Codes: R91.8 - Other nonspecific abnormal finding of lung field SNOMED: 384590946 (9) Tachycardia ICD Codes: R00.0 - Tachycardia, unspecified SNOMED: 6328364 Status: unchanged Assessment/Plan ot pt diet pain control sx eval cbc bmp am heme f/u cardio eval, ltach eval prn Subjective Constitutional: Reports: weakness Allergies: Coded Allergies: No Known Allergies (Verified , 05/21/06) All Systems: reviewed and negative except above Subjective bipap sleeping Objective Last 24 Hour Vital Signs Date Time Temp Pulse Resp B/P (MAP) Pulse Ox O2 Delivery O2 Flow Rate FiO2 11/25/17 13:19 133 18 99 Facial 40 11/25/17 13:00 98.5 135 18 126/80 95 Bi-pap 40 98.5 11/25/17 12:00 40 11/25/17 12:00 132 18 134/84 95 Bi-pap 40 11/25/17 12:00 135 11/25/17 11:52 133 24 100 Bi-pap 40 11/25/17 11:42 131 20 98 Facial 40 11/25/17 11:42 129 17 99 Bi-pap 50 11/25/17 11:00 135 18 120/85 95 Bi-pap 40 11/25/17 10:00 137 21 121/91 98 Bi-pap 40 5/3/18 09:07 138 23 99 Facial 40 11/25/17 09:00 136 18 128/87 98 Bi-pap 40 11/25/17 08:00 127 11/25/17 08:00 98.2 107 18 96/57 100 Bi-pap 40 98.2 11/25/17 07:00 131 18 121/80 98 Bi-pap 40 11/25/17 06:44 139 22 99 Facial 40 11/25/17 06:44 139 22 98 Bi-pap 40 11/25/17 06:44 Bi-pap 11/25/17 06:00 133 18 134/79 98 Bi-pap 40 11/25/17 05:00 135 18 121/84 98 Bi-pap 40 11/25/17 05:00 40 11/25/17 04:52 131 15 96 Facial 40 11/25/17 04:00 50 11/25/17 04:00 98.0 133 17 119/77 98 Bi-pap 40 98.0 11/25/17 04:00 135 11/25/17 03:03 Bi-pap 11/25/17 03:03 139 39 99 Bi-pap 40 11/25/17 03:02 139 33 99 Facial 40 11/25/17 03:00 133 15 119/77 98 Bi-pap 50 11/25/17 02:00 133 15 116/71 100 Bi-pap 50 11/25/17 01:00 97.9 135 15 115/80 99 Bi-pap 50 97.9 11/25/17 01:00 50 11/25/17 00:49 133 16 100 Facial 50 11/25/17 00:00 134 11/25/17 00:00 97.9 137 17 111/77 99 Bi-pap 60 97.9 11/25/17 00:00 60 11/24/17 23:00 132 15 111/77 99 Bi-pap 60 11/24/17 23:00 60 11/24/17 22:45 Bi-pap 11/24/17 22:44 134 18 99 2 22:43 134 17 99 Facial 60 11/24/17 22:00 129 15 121/77 100 Bi-pap 70 2/ 21:00 133 15 117/76 97 Bi-pap 70 11/24/17 20:35 133 32 97 Facial 70 11/24/17 20:00 70 11/24/17 20:00 98.7 133 17 126/80 98 Bi-pap 70 98.7 11/24/17 20:00 136 11/24/17 19:05 Bi-pap 11/24/17 19:04 131 11/24/17 19:03 131 17 94 Facial 70 11/24/17 19:00 134 17 116/76 100 Bi-pap 70 11/24/17 18:00 135 17 140/87 100 Bi-pap 70 11/24/17 17:00 135 17 133/76 100 Bi-pap 70 11/24/17 16:58 128 30 98 Facial 70 11/24/17 16:00 136 11/24/17 16:00 98.2 136 13 125/91 94 Bi-pap 70 98.2 11/24/17 16:00 50 11/24/17 15:12 127 22 100 Bi-pap 50 11/24/17 15:10 123 20 100 Facial 50 11/24/17 15:00 123 21 126/84 100 Bi-pap 50 11/24/17 15:00 122 14 93 Bi-pap 50 Intake and Output 11/24/17 11/25/17 19:00 07:00 # Voids 3 4 Laboratory Tests 11/25/17 04:15: White Blood Count 12.8H, Red Blood Count 4.91, Hemoglobin 14.5, Hematocrit 43.6 , Mean Corpuscular Volume 89, Mean Corpuscular Hemoglobin 29.5, Mean Corpuscular Hemoglobin Concent 33.3, Red Cell Distribution Width 14.7, Platelet Count 170, Mean Platelet Volume 7.6, Neutrophils (%) (Auto) 77.8H, Lymphocytes ( %) (Auto) 16.8L, Monocytes (%) (Auto) 4.0, Eosinophils (%) (Auto) 0.7, Basophils (%) (Auto) 0.7, Sodium Level 147H, Potassium Level 4.5, Chloride Level 104, Carbon Dioxide Level 31, Anion Gap 12, Blood Urea Nitrogen 48H, Creatinine 1.2, Estimat Glomerular Filtration Rate 54.9, Glucose Level 128H, Calcium Level 10.3H, Phosphorus Level 4.9, Magnesium Level 2.1, Total Bilirubin 0.5, Aspartate Amino Transf (AST/SGOT) 119H, Alanine Aminotransferase (ALT/SGPT ) 37, Alkaline Phosphatase 156H, Total Protein 9.7H, Albumin 1.8L, Globulin 7.6 Height (Feet): 5 Height (Inches): 6.00 Weight (Pounds): 129 General Appearance: lethargic EENT: normal ENT inspection Neck: normal alignment Cardiovascular: normal peripheral pulses, normal rate, regular rhythm Respiratory/Chest: chest wall non-tender, decreased breath sounds Abdomen: normal bowel sounds, non tender, soft Extremities: normal inspection Edema: no edema noted Arm (L), no edema noted Arm (R), no edema noted Leg (L), no edema noted Leg (R), no edema noted Pedal (L), no edema noted Pedal (R), no edema noted Generalized Neurologic: motor weakness Skin: normal pigmentation, warm/dry BAYRON BENEDICT November 25, 2017 14:21
--- NOTE | 2017-11-25 16:36 | Cardiac Electrophysiology PN ---
Assessment/Plan Assessment/Plan 1. Sinus tachycardia with no evidence of atrial fibrillation or SVT due to pain and respiratory failure. Echocardiogram showed EF 65%. 2. Malignant pleural effusion and metastatic cancer. Follow up Dr. Wagner. S/p Left Thoracentesis on 11/12/17 Morphine pump in abdomen. On BIPAP 3. Lung mass. 4. Crohn disease and history of exploratory laparotomy, under management of Dr. Gallegos. 5. Ascites paracentesis with cytology and per Dr. Bains. 6. DNR and DNI DW RN Subjective Subjective Out of ICU on BIPAP in sinus tach 120-130s.DNR now and lethargic Objective Last 24 Hour Vital Signs Date Time Temp Pulse Resp B/P (MAP) Pulse Ox O2 Delivery O2 Flow Rate FiO2 11/25/17 16:00 97.5 139 20 133/86 100 Bi-pap 40 97.5 11/25/17 16:00 40 11/25/17 15:54 131 22 100 Bi-pap 40 11/25/17 15:47 131 18 100 Facial 40 11/25/17 15:47 131 18 100 Bi-pap 40 11/25/17 13:19 133 18 99 Facial 40 11/25/17 13:00 98.5 135 18 126/80 95 Bi-pap 40 98.5 11/25/17 12:00 40 11/25/17 12:00 132 18 134/84 95 Bi-pap 40 11/25/17 12:00 135 11/25/17 11:52 133 24 100 Bi-pap 40 11/25/17 11:42 131 20 98 Facial 40 11/25/17 11:42 129 17 99 Bi-pap 50 11/25/17 11:00 135 18 120/85 95 Bi-pap 40 11/25/17 10:00 137 21 121/91 98 Bi-pap 40 11/25/17 09:07 138 23 99 Facial 40 11/25/17 09:00 136 18 128/87 98 Bi-pap 40 11/25/17 08:00 127 11/25/17 08:00 98.2 107 18 96/57 100 Bi-pap 40 98.2 11/25/17 07:00 131 18 121/80 98 Bi-pap 40 11/25/17 06:44 139 22 99 Facial 40 11/25/17 06:44 139 22 98 Bi-pap 40 11/25/17 06:44 Bi-pap 11/25/17 06:00 133 18 134/79 98 Bi-pap 40 11/25/17 05:00 135 18 121/84 98 Bi-pap 40 11/25/17 05:00 40 11/25/17 04:52 131 15 96 Facial 40 11/25/17 04:00 50 11/25/17 04:00 98.0 133 17 119/77 98 Bi-pap 40 98.0 11/25/17 04:00 135 11/25/17 03:03 Bi-pap 11/25/17 03:03 139 39 99 Bi-pap 40 11/25/17 03:02 139 33 99 Facial 40 11/25/17 03:00 133 15 119/77 98 Bi-pap 50 11/25/17 02:00 133 15 116/71 100 Bi-pap 50 11/25/17 01:00 97.9 135 15 115/80 99 Bi-pap 50 97.9 11/25/17 01:00 50 11/25/17 00:49 133 16 100 Facial 50 11/25/17 00:00 134 11/25/17 00:00 97.9 137 17 111/77 99 Bi-pap 60 97.9 11/25/17 00:00 60 11/24/17 23:00 132 15 111/77 99 Bi-pap 60 11/24/17 23:00 60 11/24/17 22:45 Bi-pap 11/24/17 22:44 134 18 99 11/24/17 22:43 134 17 99 Facial 60 11/24/17 22:00 129 15 121/77 100 Bi-pap 70 11/24/17 21:00 133 15 117/76 97 Bi-pap 70 11/24/17 20:35 133 32 97 Facial 70 11/24/17 20:00 70 11/24/17 20:00 98.7 133 17 126/80 98 Bi-pap 70 98.7 11/24/17 20:00 136 11/24/17 19:05 Bi-pap 11/24/17 19:04 131 11/24/17 19:03 131 17 94 Facial 70 11/24/17 19:00 134 17 116/76 100 Bi-pap 70 11/24/17 18:00 135 17 140/87 100 Bi-pap 70 11/24/17 17:00 135 17 133/76 100 Bi-pap 70 11/24/17 16:58 128 30 98 Facial 70 Intake and Output 11/24/17 11/25/17 19:00 07:00 # Voids 3 4 Laboratory Tests Test 11/25/17 04:15 White Blood Count 12.8 K/UL (4.8-10.8) H Red Blood Count 4.91 M/UL (4.20-5.40) Hemoglobin 14.5 G/DL (12.0-16.0) Hematocrit 43.6 % (37.0-47.0) Mean Corpuscular Volume 89 FL (80-99) Mean Corpuscular Hemoglobin 29.5 PG (27.0-31.0) Mean Corpuscular Hemoglobin Concent 33.3 G/DL (32.0-36.0) Red Cell Distribution Width 14.7 % (11.6-14.8) Platelet Count 170 K/UL (150-450) Mean Platelet Volume 7.6 FL (6.5-10.1) Neutrophils (%) (Auto) 77.8 % (45.0-75.0) H Lymphocytes (%) (Auto) 16.8 % (20.0-45.0) L Monocytes (%) (Auto) 4.0 % (1.0-10.0) Eosinophils (%) (Auto) 0.7 % (0.0-3.0) Basophils (%) (Auto) 0.7 % (0.0-2.0) Sodium Level 147 MMOL/L (136-145) H Potassium Level 4.5 MMOL/L (3.5-5.1) Chloride Level 104 MMOL/L (98-107) Carbon Dioxide Level 31 MMOL/L (21-32) Anion Gap 12 mmol/L (5-15) Blood Urea Nitrogen 48 mg/dL (7-18) H Creatinine 1.2 MG/DL (0.55-1.30) Estimat Glomerular Filtration Rate 54.9 mL/min (>60) Glucose Level 128 MG/DL (74-106) H Calcium Level 10.3 MG/DL (8.5-10.1) H Phosphorus Level 4.9 MG/DL (2.5-4.9) Magnesium Level 2.1 MG/DL (1.8-2.4) Total Bilirubin 0.5 MG/DL (0.2-1.0) Aspartate Amino Transf (AST/SGOT) 119 U/L (15-37) H Alanine Aminotransferase (ALT/SGPT) 37 U/L (12-78) Alkaline Phosphatase 156 U/L (46-116) H Total Protein 9.7 G/DL (6.4-8.2) H Albumin 1.8 G/DL (3.4-5.0) L Globulin 7.6 g/dL Objective HEAD AND NECK: No JVD. BIPAP on LUNGS: Coarse rhonchi. CARDIOVASCULAR: Tachy S1 and S2 ABDOMEN: Tender with a pump under skin. EXTREMITIES: No pitting edema. Pk Dutta MD November 25, 2017 16:36
[2017-11-25] MEDS: Nitroglycerin Subl 0.4mg tab SL PRN (23:13)
--- NOTE | 2017-11-25 23:27 | General Progress Note ---
Assessment/Plan Assessment/Plan IMPRESSION/RECS: #. Stage IV malignancy, potentially lung cancer given pattern of spread, proven malignancy on pleural fluid. Has a left lower lobe lung mass. Left inferior hilar mass. Left pleural base lung mass. Left pleural effusion. Retroperitoneal lymphadenopathy. Multiple low-attenuation liver lesions. --> Discussed with son, RN, Primary MD, given poor performance status recommend palliative/hospice care --> Do not recommend any further diagnosis/tissue given poor state, is not a chemotherapy candidate #. Anemia due to underlying malignancy - continue to closely monitor --> hgb goal is >7. Transfuse if needed. #. Crohn disease. #. Opioid dependence. #. Chronic obstructive pulmonary disease. #. History of smoking. #. Emphysema. #. Perianal abscess. #. Intractable abdominal pain. #. Status post morphine pump placement. #. Status post exploratory laparotomy. #. Pneumoperitoneum. #. Tachycardia. Subjective Date patient seen: November 24, 2017 Constitutional: Denies: no symptoms, chills, diaphoresis, fever, malaise, weakness, other HEENT: Denies: no symptoms, eye pain, blurred vision, tearing, double vision, ear pain, ear discharge, nose pain, nose congestion, throat pain, throat swelling, mouth pain, mouth swelling, other Cardiovascular: Denies: no symptoms, chest pain, edema, irregular heart rate, lightheadedness, palpitations, syncope, other Respiratory: Denies: no symptoms, cough, orthopnea, shortness of breath, SOB with excertion, SOB at rest, sputum, stridor, wheezing, other Gastrointestinal/Abdominal: Denies: no symptoms, abdomen distended, abdominal pain, black stools, tarry stools, blood in stool, constipated, diarrhea, difficulty swallowing, nausea, poor appetite, poor fluid intake, rectal bleeding , vomiting, other Genitourinary: Denies: no symptoms, burning, discharge, frequency, flank pain, hematuria, incontinence, pain, urgency, other Neurologic/Psychiatric: Denies: no symptoms, anxiety, depressed, emotional problems, headache, numbness, paresthesia, pre-existing deficit, seizure, tingling, tremors, weakness, other Allergies: Coded Allergies: No Known Allergies (Verified , 05/21/06) Subjective Condition critical. In ICU. No new events. Objective Last 24 Hour Vital Signs Date Time Temp Pulse Resp B/P (MAP) Pulse Ox O2 Delivery O2 Flow Rate FiO2 11/25/17 23:20 136 22 97 Facial 40 11/25/17 23:13 140/87 11/25/17 23:05 142 26 98 Bi-pap 40 11/25/17 23:05 Bi-pap 40 11/25/17 21:04 138 25 96 Facial 40 11/25/17 20:00 40 11/25/17 20:00 98.6 133 17 140/87 97 Bi-pap 40 98.6 11/25/17 19:04 138 20 97 Bi-pap 40 11/25/17 19:04 Bi-pap 40 11/25/17 19:03 133 20 97 Facial 40 11/25/17 16:52 132 18 100 Facial 40 11/25/17 16:00 97.5 139 20 133/86 100 Bi-pap 40 97.5 11/25/17 16:00 40 11/25/17 15:54 131 22 100 Bi-pap 40 11/25/17 15:47 131 18 100 Facial 40 11/25/17 15:47 131 18 100 Bi-pap 40 11/25/17 15:26 133 11/25/17 13:19 133 18 99 Facial 40 11/25/17 13:00 98.5 135 18 126/80 95 Bi-pap 40 98.5 11/25/17 12:00 40 11/25/17 12:00 132 18 134/84 95 Bi-pap 40 11/25/17 12:00 135 11/25/17 11:52 133 24 100 Bi-pap 40 11/25/17 11:42 131 20 98 Facial 40 11/25/17 11:42 129 17 99 Bi-pap 50 11/25/17 11:00 135 18 120/85 95 Bi-pap 40 11/25/17 10:00 137 21 121/91 98 Bi-pap 40 11/25/17 09:07 138 23 99 Facial 40 11/25/17 09:00 136 18 128/87 98 Bi-pap 40 11/25/17 08:00 127 11/25/17 08:00 98.2 107 18 96/57 100 Bi-pap 40 98.2 11/25/17 07:00 131 18 121/80 98 Bi-pap 40 11/25/17 06:44 139 22 99 Facial 40 11/25/17 06:44 139 22 98 Bi-pap 40 11/25/17 06:44 Bi-pap 11/25/17 06:00 133 18 134/79 98 Bi-pap 40 11/25/17 05:00 135 18 121/84 98 Bi-pap 40 11/25/17 05:00 40 11/25/17 04:52 131 15 96 Facial 40 11/25/17 04:00 50 11/25/17 04:00 98.0 133 17 119/77 98 Bi-pap 40 98.0 11/25/17 04:00 135 11/25/17 03:03 Bi-pap 11/25/17 03:03 139 39 99 Bi-pap 40 11/25/17 03:02 139 33 99 Facial 40 11/25/17 03:00 133 15 119/77 98 Bi-pap 50 11/25/17 02:00 133 15 116/71 100 Bi-pap 50 11/25/17 01:00 97.9 135 15 115/80 99 Bi-pap 50 97.9 11/25/17 01:00 50 11/25/17 00:49 133 16 100 Facial 50 11/25/17 00:00 134 11/25/17 00:00 97.9 137 17 111/77 99 Bi-pap 60 97.9 11/25/17 00:00 60 Intake and Output 11/24/17 11/25/17 19:00 07:00 # Voids 3 4 Laboratory Tests 11/25/17 04:15: White Blood Count 12.8H, Red Blood Count 4.91, Hemoglobin 14.5, Hematocrit 43.6 , Mean Corpuscular Volume 89, Mean Corpuscular Hemoglobin 29.5, Mean Corpuscular Hemoglobin Concent 33.3, Red Cell Distribution Width 14.7, Platelet Count 170, Mean Platelet Volume 7.6, Neutrophils (%) (Auto) 77.8H, Lymphocytes ( %) (Auto) 16.8L, Monocytes (%) (Auto) 4.0, Eosinophils (%) (Auto) 0.7, Basophils (%) (Auto) 0.7, Sodium Level 147H, Potassium Level 4.5, Chloride Level 104, Carbon Dioxide Level 31, Anion Gap 12, Blood Urea Nitrogen 48H, Creatinine 1.2, Estimat Glomerular Filtration Rate 54.9, Glucose Level 128H, Calcium Level 10.3H, Phosphorus Level 4.9, Magnesium Level 2.1, Total Bilirubin 0.5, Aspartate Amino Transf (AST/SGOT) 119H, Alanine Aminotransferase (ALT/SGPT ) 37, Alkaline Phosphatase 156H, Total Protein 9.7H, Albumin 1.8L, Globulin 7.6 Height (Feet): 5 Height (Inches): 6.00 Weight (Pounds): 129 General Appearance: lethargic Cardiovascular: tachycardia Respiratory/Chest: decreased breath sounds, crackles/rales Connor Bains MD November 25, 2017 23:27
[2017-11-26] VITALS: BP 125/84
[2017-11-26] MEDS: Nitroglycerin Subl 0.4mg tab SL PRN (01:53)
[2017-11-26] MEDS: Levalbuterol Inh UD 1.25mg/0.5ml HHN SCH ×6 (03:00→23:00)
[2017-11-26] MEDS: D5 1/2NS 1,000 ML IV SCH (03:50)
[2017-11-26 04:00] VITALS: BP 124/80
[2017-11-26 05:28] LABS: BASOPHILS % (AUTO) 1.1 % (0.0-2.0); EOSINOPHILS % (AUTO) 0.6 % (0.0-3.0); HEMATOCRIT 41.8 % (37.0-47.0); HEMOGLOBIN 13.6 G/DL (12.0-16.0); LYMPHOCYTES % (AUTO) 17.4 % (20.0-45.0); MEAN CORPUSCULAR VOLUME 90 FL (80-99); MONOCYTES % (AUTO) 4.7 % (1.0-10.0); NEUTROPHILS % (AUTO) 76.1 % (45.0-75.0); PLATELET COUNT 134 K/UL (150-450); RED BLOOD COUNT 4.64 M/UL (4.20-5.40); RED CELL DISTRIBUTION WIDTH 15.1 % (11.6-14.8); WHITE BLOOD COUNT 15.1 K/UL (4.8-10.8)
[2017-11-26 05:53] LABS: ANION GAP 11 mmol/L (5-15); BLOOD UREA NITROGEN 68 mg/dL (7-18); CALCIUM 9.3 MG/DL (8.5-10.1); CARBON DIOXIDE 32 MMOL/L (21-32); CHLORIDE 112 MMOL/L (98-107); CREATININE 1.4 MG/DL (0.55-1.30); POTASSIUM 3.1 MMOL/L (3.5-5.1); SODIUM 155 MMOL/L (136-145)
[2017-11-26 08:00] VITALS: BP 133/65
[2017-11-26] MEDS: levETIRAcetam 500mg/5ml Liquid ORAL SCH ×4 (09:00→21:22)
--- NOTE | 2017-11-26 09:23 | General Progress Note ---
Assessment/Plan Assessment/Plan (1) Chronic abdominal pain (2) Chronic pancreatitis (3) Crohn's disease (4) Herniated nucleus pulposus, lumbar (5) Lumbar spondylosis (6) Radiculopathy of lumbar region (7) Lung mass Pt will be continued on [place] and pt has intrathecal pump. HOLD OPIOIDS FOR OVERSEDATION OR SBP<90 OR DBP<60 OR O2SAT<92% OR RR<12 Pt was d/w Dr. Malhotra and he concurred. Subjective Date patient seen: November 26, 2017 Time patient seen: 08:15 - am ROS Limited/Unobtainable: Yes Allergies: Coded Allergies: No Known Allergies (Verified , 05/21/06) Subjective On Bipap no signs of pain or distress. Hospital is out of Dilaudid and morphine IV. Objective Last 24 Hour Vital Signs Date Time Temp Pulse Resp B/P (MAP) Pulse Ox O2 Delivery O2 Flow Rate FiO2 11/26/17 08:47 131 22 100 Bi-pap 40 11/26/17 08:45 129 18 100 Bi-pap 40 11/26/17 08:43 130 25 100 Facial 40 11/26/17 08:00 40 11/26/17 08:00 100.2 133 22 133/65 99 Bi-pap 40 100.2 11/26/17 07:21 99.6 11/26/17 06:42 128 22 98 Facial 40 11/26/17 06:22 101.0 11/26/17 05:12 140 24 100 Facial 40 11/26/17 04:00 101.1 138 19 124/80 96 Bi-pap 40 101.1 11/26/17 04:00 40 11/26/17 04:00 138 11/26/17 03:05 139 18 100 Bi-pap 40 11/26/17 03:05 Bi-pap 40 11/26/17 03:04 138 18 100 Facial 40 11/26/17 01:53 125/84 11/26/17 01:04 141 24 95 Facial 40 11/26/17 00:00 98.5 138 20 125/84 96 Bi-pap 40 98.5 11/26/17 00:00 40 11/26/17 00:00 139 11/25/17 23:20 136 22 97 Facial 40 11/25/17 23:13 140/87 11/25/17 23:05 142 26 98 Bi-pap 40 11/25/17 23:05 Bi-pap 40 11/25/17 21:04 138 25 96 Facial 40 11/25/17 20:00 40 11/25/17 20:00 98.6 133 17 140/87 97 Bi-pap 40 98.6 11/25/17 20:00 134 11/25/17 19:04 138 20 97 Bi-pap 40 11/25/17 19:04 Bi-pap 40 11/25/17 19:03 133 20 97 Facial 40 11/25/17 16:52 132 18 100 Facial 40 11/25/17 16:00 97.5 139 20 133/86 100 Bi-pap 40 97.5 11/25/17 16:00 40 11/25/17 15:54 131 22 100 Bi-pap 40 11/25/17 15:47 131 18 100 Facial 40 11/25/17 15:47 131 18 100 Bi-pap 40 11/25/17 15:26 133 11/25/17 13:19 133 18 99 Facial 40 11/25/17 13:00 98.5 135 18 126/80 95 Bi-pap 40 98.5 11/25/17 12:00 40 11/25/17 12:00 132 18 134/84 95 Bi-pap 40 11/25/17 12:00 135 11/25/17 11:52 133 24 100 Bi-pap 40 11/25/17 11:42 131 20 98 Facial 40 11/25/17 11:42 129 17 99 Bi-pap 50 11/25/17 11:00 135 18 120/85 95 Bi-pap 40 11/25/17 10:00 137 21 121/91 98 Bi-pap 40 Intake and Output 11/25/17 11/26/17 19:00 07:00 Intake Total 240 ml 650 ml Balance 240 ml 650 ml IV Total 240 ml 600 ml Other 50 ml # Voids 2 3 Laboratory Tests 11/26/17 05:00: White Blood Count 15.1H, Red Blood Count 4.64, Hemoglobin 13.6, Hematocrit 41.8 , Mean Corpuscular Volume 90, Mean Corpuscular Hemoglobin 29.2, Mean Corpuscular Hemoglobin Concent 32.5, Red Cell Distribution Width 15.1H, Platelet Count 134L, Mean Platelet Volume 7.7, Neutrophils (%) (Auto) 76.1H, Lymphocytes (%) (Auto) 17.4L, Monocytes (%) (Auto) 4.7, Eosinophils (%) (Auto) 0.6, Basophils (%) (Auto) 1.1, Sodium Level 155H, Potassium Level 3.1L, Chloride Level 112H, Carbon Dioxide Level 32, Anion Gap 11, Blood Urea Nitrogen 68H, Creatinine 1.4H, Estimat Glomerular Filtration Rate 45.8, Glucose Level 137H, Calcium Level 9.3 Height (Feet): 5 Height (Inches): 6.00 Weight (Pounds): 129 Objective General Appearance: on Bipap Neck: normal alignment, supple Cardiovascular: tachycardic Respiratory/Chest: decreased breath sounds Abdomen: tender, distended, intrathecal pump palpated Extremities: non-tender Edema: no edema noted JOSE ARREDONDO November 26, 2017 09:23
[2017-11-26] MEDS ORDERED: HYDROcodone/Acetamin 10/325 tab ORAL PRN (09:30)
[2017-11-26] MEDS: Heparin 5000 units/ml inj SUBQ SCH ×2 (10:18→21:10)
--- NOTE | 2017-11-26 11:50 | GI Progress Note ---
Assessment/Plan Problems: (1) Crohn's disease ICD Codes: K50.90 - Crohn's disease SNOMED: 60549370 Qualifiers: Qualified Codes: K50.919 - Crohn's disease, unspecified, with unspecified complications (2) Opioid dependence ICD Codes: F11.20 - Opioid dependence SNOMED: 64901566 (3) SBO (small bowel obstruction) ICD Codes: K56.609 - Unspecified intestinal obstruction, unspecified as to partial versus complete obstruction SNOMED: 181047377 (4) Chronic abdominal pain Status: unchanged Status Narrative Discussed with Dr. Gallegos. Assessment/Plan CT AP reviewed >> Evidence of disseminated malignancy, with large left pulmonary hilar mass or adenopathy, extensive left hilar and mediastinal adenopathy, multiple pleural- based masses on the left, multiple masses within the liver, and retroperitoneal lymphadenopathy. Recommendations now DNI/DNR fu oncology recs pain mgmt poor prognosis Subjective Subjective limited Objective Last 24 Hour Vital Signs Date Time Temp Pulse Resp B/P (MAP) Pulse Ox O2 Delivery O2 Flow Rate FiO2 11/26/17 10:50 136 Bi-pap 11/26/17 10:50 136 Bi-pap 11/26/17 10:50 136 26 98 Facial 40 11/26/17 08:47 131 22 100 Bi-pap 40 11/26/17 08:45 129 18 100 Bi-pap 40 11/26/17 08:43 130 25 100 Facial 40 11/26/17 08:00 40 11/26/17 08:00 126 11/26/17 08:00 100.2 133 22 133/65 99 Bi-pap 40 100.2 11/26/17 07:21 99.6 11/26/17 06:42 128 22 98 Facial 40 11/26/17 06:22 101.0 11/26/17 05:12 140 24 100 Facial 40 11/26/17 04:00 101.1 138 19 124/80 96 Bi-pap 40 101.1 11/26/17 04:00 40 11/26/17 04:00 138 11/26/17 03:05 139 18 100 Bi-pap 40 11/26/17 03:05 Bi-pap 40 11/26/17 03:04 138 18 100 Facial 40 11/26/17 01:53 125/84 11/26/17 01:04 141 24 95 Facial 40 11/26/17 00:00 98.5 138 20 125/84 96 Bi-pap 40 98.5 11/26/17 00:00 40 11/26/17 00:00 139 11/25/17 23:20 136 22 97 Facial 40 11/25/17 23:13 140/87 11/25/17 23:05 142 26 98 Bi-pap 40 11/25/17 23:05 Bi-pap 40 11/25/17 21:04 138 25 96 Facial 40 11/25/17 20:00 40 11/25/17 20:00 98.6 133 17 140/87 97 Bi-pap 40 98.6 11/25/17 20:00 134 11/25/17 19:04 138 20 97 Bi-pap 40 11/25/17 19:04 Bi-pap 40 11/25/17 19:03 133 20 97 Facial 40 11/25/17 16:52 132 18 100 Facial 40 11/25/17 16:00 97.5 139 20 133/86 100 Bi-pap 40 97.5 11/25/17 16:00 40 11/25/17 15:54 131 22 100 Bi-pap 40 11/25/17 15:47 131 18 100 Facial 40 11/25/17 15:47 131 18 100 Bi-pap 40 11/25/17 15:26 133 11/25/17 13:19 133 18 99 Facial 40 11/25/17 13:00 98.5 135 18 126/80 95 Bi-pap 40 98.5 11/25/17 12:00 40 11/25/17 12:00 132 18 134/84 95 Bi-pap 40 11/25/17 12:00 135 11/25/17 11:52 133 24 100 Bi-pap 40 Intake and Output 11/25/17 11/26/17 19:00 07:00 Intake Total 240 ml 710 ml Balance 240 ml 710 ml IV Total 240 ml 660 ml Other 50 ml # Voids 2 3 Laboratory Tests Test 11/26/17 05:00 White Blood Count 15.1 K/UL (4.8-10.8) H Red Blood Count 4.64 M/UL (4.20-5.40) Hemoglobin 13.6 G/DL (12.0-16.0) Hematocrit 41.8 % (37.0-47.0) Mean Corpuscular Volume 90 FL (80-99) Mean Corpuscular Hemoglobin 29.2 PG (27.0-31.0) Mean Corpuscular Hemoglobin Concent 32.5 G/DL (32.0-36.0) Red Cell Distribution Width 15.1 % (11.6-14.8) H Platelet Count 134 K/UL (150-450) L Mean Platelet Volume 7.7 FL (6.5-10.1) Neutrophils (%) (Auto) 76.1 % (45.0-75.0) H Lymphocytes (%) (Auto) 17.4 % (20.0-45.0) L Monocytes (%) (Auto) 4.7 % (1.0-10.0) Eosinophils (%) (Auto) 0.6 % (0.0-3.0) Basophils (%) (Auto) 1.1 % (0.0-2.0) Sodium Level 155 MMOL/L (136-145) H Potassium Level 3.1 MMOL/L (3.5-5.1) L Chloride Level 112 MMOL/L (98-107) H Carbon Dioxide Level 32 MMOL/L (21-32) Anion Gap 11 mmol/L (5-15) Blood Urea Nitrogen 68 mg/dL (7-18) H Creatinine 1.4 MG/DL (0.55-1.30) H Estimat Glomerular Filtration Rate 45.8 mL/min (>60) Glucose Level 137 MG/DL (74-106) H Calcium Level 9.3 MG/DL (8.5-10.1) Height (Feet): 5 Height (Inches): 6.00 Weight (Pounds): 129 General Appearance: lethargic Cardiovascular: normal rate Respiratory/Chest: other - bipap Abdominal Exam: soft Tara Scott N.P. November 26, 2017 11:50
--- NOTE | 2017-11-26 11:56 | Pulmonolgy Critical Care Note ---
Critical Care - Asmt/Plan Problems: (1) Acute respiratory failure (2) Malignant pleural effusion (3) Metastatic cancer (4) Lung mass (5) COPD (chronic obstructive pulmonary disease) Respiratory: monitor respiratory rate, adjust FIO2, CXR, other - wean bipap if possible Cardiac: continue to monitor HR/BP Renal: F/U I&O Infectious Disease: check cultures, continue antibiotics Hematologic: monitor H/H, transfuse if hgb<8.5 Neurologic: keep patient comfortable Affect: PRN ativan Prophylaxis: Protonix Notes Reviewed: cardio, 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, consultants, child welfare caseworker, family member - d/w pts son , he is hoping that pt gets stabel enough to get discharged on hospice Critical Care - Objective Last 24 Hour Vital Signs Date Time Temp Pulse Resp B/P (MAP) Pulse Ox O2 Delivery O2 Flow Rate FiO2 11/26/17 10:50 136 Bi-pap 11/26/17 10:50 136 Bi-pap 11/26/17 10:50 136 26 98 Facial 40 11/26/17 08:47 131 22 100 Bi-pap 40 11/26/17 08:45 129 18 100 Bi-pap 40 11/26/17 08:43 130 25 100 Facial 40 11/26/17 08:00 40 11/26/17 08:00 126 11/26/17 08:00 100.2 133 22 133/65 99 Bi-pap 40 100.2 11/26/17 07:21 99.6 11/26/17 06:42 128 22 98 Facial 40 11/26/17 06:22 101.0 11/26/17 05:12 140 24 100 Facial 40 11/26/17 04:00 101.1 138 19 124/80 96 Bi-pap 40 101.1 11/26/17 04:00 40 11/26/17 04:00 138 11/26/17 03:05 139 18 100 Bi-pap 40 11/26/17 03:05 Bi-pap 40 11/26/17 03:04 138 18 100 Facial 40 11/26/17 01:53 125/84 11/26/17 01:04 141 24 95 Facial 40 11/26/17 00:00 98.5 138 20 125/84 96 Bi-pap 40 98.5 11/26/17 00:00 40 11/26/17 00:00 139 11/25/17 23:20 136 22 97 Facial 40 11/25/17 23:13 140/87 11/25/17 23:05 142 26 98 Bi-pap 40 11/25/17 23:05 Bi-pap 40 11/25/17 21:04 138 25 96 Facial 40 11/25/17 20:00 40 11/25/17 20:00 98.6 133 17 140/87 97 Bi-pap 40 98.6 11/25/17 20:00 134 11/25/17 19:04 138 20 97 Bi-pap 40 11/25/17 19:04 Bi-pap 40 11/25/17 19:03 133 20 97 Facial 40 11/25/17 16:52 132 18 100 Facial 40 11/25/17 16:00 97.5 139 20 133/86 100 Bi-pap 40 97.5 11/25/17 16:00 40 11/25/17 15:54 131 22 100 Bi-pap 40 11/25/17 15:47 131 18 100 Facial 40 11/25/17 15:47 131 18 100 Bi-pap 40 11/25/17 15:26 133 11/25/17 13:19 133 18 99 Facial 40 11/25/17 13:00 98.5 135 18 126/80 95 Bi-pap 40 98.5 11/25/17 12:00 40 11/25/17 12:00 132 18 134/84 95 Bi-pap 40 11/25/17 12:00 135 Status: awake Condition: critical HEENT: atraumatic Neck: full ROM Lungs: clear Heart: HR/BP stable Abdomen: soft Extremities: no C/C/E Critical Care - Subjective ROS Limited/Unobtainable: Yes Condition: critical EKG Rhythm: Sinus Rhythm FI02: 40 Vent Support Mode: CPAP Sputum Amount: None Fluids: 1/2 NS 60 cc/hour I&O: Intake and Output 11/25/17 11/26/17 19:00 07:00 Intake Total 240 ml 710 ml Balance 240 ml 710 ml IV Total 240 ml 660 ml Other 50 ml # Voids 2 3 CXR: pulmonary edema Labs: Laboratory Tests Test 11/26/17 05:00 White Blood Count 15.1 K/UL (4.8-10.8) H Red Blood Count 4.64 M/UL (4.20-5.40) Hemoglobin 13.6 G/DL (12.0-16.0) Hematocrit 41.8 % (37.0-47.0) Mean Corpuscular Volume 90 FL (80-99) Mean Corpuscular Hemoglobin 29.2 PG (27.0-31.0) Mean Corpuscular Hemoglobin Concent 32.5 G/DL (32.0-36.0) Red Cell Distribution Width 15.1 % (11.6-14.8) H Platelet Count 134 K/UL (150-450) L Mean Platelet Volume 7.7 FL (6.5-10.1) Neutrophils (%) (Auto) 76.1 % (45.0-75.0) H Lymphocytes (%) (Auto) 17.4 % (20.0-45.0) L Monocytes (%) (Auto) 4.7 % (1.0-10.0) Eosinophils (%) (Auto) 0.6 % (0.0-3.0) Basophils (%) (Auto) 1.1 % (0.0-2.0) Sodium Level 155 MMOL/L (136-145) H Potassium Level 3.1 MMOL/L (3.5-5.1) L Chloride Level 112 MMOL/L (98-107) H Carbon Dioxide Level 32 MMOL/L (21-32) Anion Gap 11 mmol/L (5-15) Blood Urea Nitrogen 68 mg/dL (7-18) H Creatinine 1.4 MG/DL (0.55-1.30) H Estimat Glomerular Filtration Rate 45.8 mL/min (>60) Glucose Level 137 MG/DL (74-106) H Calcium Level 9.3 MG/DL (8.5-10.1) Rob Wagner MD November 26, 2017 11:56
[2017-11-26 12:00] VITALS: BP 121/77
[2017-11-26] MEDS ORDERED: Potassium Chloride 20 MEQ in NS 275 ML IVPB ONE (13:30)
--- NOTE | 2017-11-26 13:41 | General Progress Note ---
Assessment/Plan Problem List: (1) Crohn's disease ICD Codes: K50.90 - Crohn's disease SNOMED: 87479023 Qualifiers: Qualified Codes: K50.919 - Crohn's disease, unspecified, with unspecified complications (2) Opioid dependence ICD Codes: F11.20 - Opioid dependence SNOMED: 09109913 (3) Intractable abdominal pain ICD Codes: R10.9 - Unspecified abdominal pain SNOMED: 27047174, 938235410 (4) COPD (chronic obstructive pulmonary disease) ICD Codes: J44.9 - Chronic obstructive pulmonary disease SNOMED: 72328709 (5) Shortness of breath (6) SOB (shortness of breath) ICD Codes: R06.02 - Shortness of breath SNOMED: 968901918 (7) UTI (urinary tract infection) ICD Codes: N39.0 - Urinary tract infection, site not specified SNOMED: 15878026 (8) Lung mass ICD Codes: R91.8 - Other nonspecific abnormal finding of lung field SNOMED: 782537065 (9) Tachycardia ICD Codes: R00.0 - Tachycardia, unspecified SNOMED: 4390519 Status: unchanged Assessment/Plan ot pt diet pain control sx eval cbc bmp am heme f/u cardio eval, ltach eval prn Subjective Constitutional: Reports: weakness Allergies: Coded Allergies: No Known Allergies (Verified , 05/21/06) All Systems: reviewed and negative except above Subjective bipap sleeping Objective Last 24 Hour Vital Signs Date Time Temp Pulse Resp B/P (MAP) Pulse Ox O2 Delivery O2 Flow Rate FiO2 11/26/17 12:00 55 11/26/17 12:00 98.4 133 22 121/77 95 Venturi Mask 55 98.4 11/26/17 11:50 131 23 94 11/26/17 10:50 136 Bi-pap 11/26/17 10:50 136 Bi-pap 11/26/17 10:50 136 26 98 Facial 40 11/26/17 08:47 131 22 100 Bi-pap 40 11/26/17 08:45 129 18 100 Bi-pap 40 11/26/17 08:43 130 25 100 Facial 40 11/26/17 08:00 40 11/26/17 08:00 126 11/26/17 08:00 100.2 133 22 133/65 99 Bi-pap 40 100.2 11/26/17 07:21 99.6 11/26/17 06:42 128 22 98 Facial 40 11/26/17 06:22 101.0 11/26/17 05:12 140 24 100 Facial 40 11/26/17 04:00 101.1 138 19 124/80 96 Bi-pap 40 101.1 11/26/17 04:00 40 11/26/17 04:00 138 11/26/17 03:05 139 18 100 Bi-pap 40 11/26/17 03:05 Bi-pap 40 11/26/17 03:04 138 18 100 Facial 40 11/26/17 01:53 125/84 11/26/17 01:04 141 24 95 Facial 40 11/26/17 00:00 98.5 138 20 125/84 96 Bi-pap 40 98.5 11/26/17 00:00 40 11/26/17 00:00 139 11/25/17 23:20 136 22 97 Facial 40 11/25/17 23:13 140/87 11/25/17 23:05 142 26 98 Bi-pap 40 11/25/17 23:05 Bi-pap 40 11/25/17 21:04 138 25 96 Facial 40 11/25/17 20:00 40 11/25/17 20:00 98.6 133 17 140/87 97 Bi-pap 40 98.6 11/25/17 20:00 134 11/25/17 19:04 138 20 97 Bi-pap 40 11/25/17 19:04 Bi-pap 40 11/25/17 19:03 133 20 97 Facial 40 11/25/17 16:52 132 18 100 Facial 40 11/25/17 16:00 97.5 139 20 133/86 100 Bi-pap 40 97.5 11/25/17 16:00 40 11/25/17 15:54 131 22 100 Bi-pap 40 11/25/17 15:47 131 18 100 Facial 40 11/25/17 15:47 131 18 100 Bi-pap 40 11/25/17 15:26 133 Intake and Output 11/25/17 11/26/17 19:00 07:00 Intake Total 240 ml 710 ml Balance 240 ml 710 ml IV Total 240 ml 660 ml Other 50 ml # Voids 2 3 Laboratory Tests 5/4/18 05:00: White Blood Count 15.1H, Red Blood Count 4.64, Hemoglobin 13.6, Hematocrit 41.8 , Mean Corpuscular Volume 90, Mean Corpuscular Hemoglobin 29.2, Mean Corpuscular Hemoglobin Concent 32.5, Red Cell Distribution Width 15.1H, Platelet Count 134L, Mean Platelet Volume 7.7, Neutrophils (%) (Auto) 76.1H, Lymphocytes (%) (Auto) 17.4L, Monocytes (%) (Auto) 4.7, Eosinophils (%) (Auto) 0.6, Basophils (%) (Auto) 1.1, Sodium Level 155H, Potassium Level 3.1L, Chloride Level 112H, Carbon Dioxide Level 32, Anion Gap 11, Blood Urea Nitrogen 68H, Creatinine 1.4H, Estimat Glomerular Filtration Rate 45.8, Glucose Level 137H, Calcium Level 9.3 Height (Feet): 5 Height (Inches): 6.00 Weight (Pounds): 129 General Appearance: lethargic EENT: normal ENT inspection Neck: normal alignment Cardiovascular: normal peripheral pulses, normal rate, regular rhythm Respiratory/Chest: chest wall non-tender, decreased breath sounds Abdomen: normal bowel sounds, non tender, soft Extremities: normal inspection Edema: no edema noted Arm (L), no edema noted Arm (R), no edema noted Leg (L), no edema noted Leg (R), no edema noted Pedal (L), no edema noted Pedal (R), no edema noted Generalized Neurologic: motor weakness Skin: normal pigmentation, warm/dry BAYRON BENEDICT November 26, 2017 13:41
--- NOTE | 2017-11-26 14:41 | Infectious Diseases Prog Note ---
Assessment/Plan Assessment/Plan ASSESSMENT: The patient is a 66-year-old female with, Lethargy, on Bipap- improvnig- ?oversedation -CXR 11/25: Parenchymal opacities, primarily interstitial laterally demonstrated throughout the lungs with some interval improvement over the last 24 hours -CXR;Extensive mixed interstitial alveolar airspace disease bilaterally unchanged fever, recurrent- prorably due to malignancy-, possible concomitant PNA Leukocytosis, mild- recurrent; improving- ?2ry to possible malignancy Probable small bowel obstruction Recent history of polymicrobial gram-negative bacteremia including Stenotrophomonas maltophilia and Enterobacter. History of Aggie esophagitis. History of C. difficile in the past. Air anterior to the liver , ? free intraperitoneal air ( Surg doubt perforation ) Lung and liver masses Ro Malignancy CT: Pleural-based mass at the left lung base / Moderate-sized left pleural effusion, left-sided pleural nodularity and retroperitoneal and paraspinal nodules/masses. Left inferior hilar mass lesion partially visualized. New low- attenuation liver lesion ( concerning for malignancy/metastatic disease ) Pl effusion SP ultrasound-guided thoracentesis, 960 cc ( m/l 2/2 mets, no evid of Empyema ) -exudate fluid: WBC 613 (n 6), pH 8, lguc 98, prot 4.6 (serum 8.4); cx stain: GRAM STAIN Final GRAM STAIN RESULT FEW WHITE BLOOD CELLS NO ORGANISMS SEEN cx negative prelime cytology report: malignant non-small cells in the pleural cavity. Crohn's disease. History of bowel obstruction x2 with lysis of adhesions in 2004. COPD. History of chronic pain syndrome, on morphine pump. CVA in 2004. Seizure disorder. PLAN: Restart empiric Zosyn for possible PNA in view of fevers and increased WBC -11/17 SP Zosyn #5 -repeat cultuers Monitor CBC and BMP. follow GI recommendations hem, surg f/u discussions of goals of care ongoing on GABRIEL- bipap management poor px Subjective Allergies: Coded Allergies: No Known Allergies (Verified , 05/21/06) Subjective tm 101.1 WBC increased on venturi mask family unsure of comfort care measures at this point Objective Vital Signs Last 24 Hour Vital Signs Date Time Temp Pulse Resp B/P (MAP) Pulse Ox O2 Delivery O2 Flow Rate FiO2 11/26/17 12:50 125 22 95 11/26/17 12:00 136 11/26/17 12:00 55 11/26/17 12:00 98.4 133 22 121/77 95 Venturi Mask 55 98.4 11/26/17 11:50 131 23 94 11/26/17 10:50 136 Bi-pap 11/26/17 10:50 136 Bi-pap 11/26/17 10:50 136 26 98 Facial 40 11/26/17 08:47 131 22 100 Bi-pap 40 11/26/17 08:45 129 18 100 Bi-pap 40 11/26/17 08:43 130 25 100 Facial 40 11/26/17 08:00 40 11/26/17 08:00 126 11/26/17 08:00 100.2 133 22 133/65 99 Bi-pap 40 100.2 11/26/17 07:21 99.6 11/26/17 06:42 128 22 98 Facial 40 11/26/17 06:22 101.0 11/26/17 05:12 140 24 100 Facial 40 11/26/17 04:00 101.1 138 19 124/80 96 Bi-pap 40 101.1 11/26/17 04:00 40 11/26/17 04:00 138 11/26/17 03:05 139 18 100 Bi-pap 40 11/26/17 03:05 Bi-pap 40 11/26/17 03:04 138 18 100 Facial 40 11/26/17 01:53 125/84 11/26/17 01:04 141 24 95 Facial 40 11/26/17 00:00 98.5 138 20 125/84 96 Bi-pap 40 98.5 11/26/17 00:00 40 11/26/17 00:00 139 11/25/17 23:20 136 22 97 Facial 40 11/25/17 23:13 140/87 11/25/17 23:05 142 26 98 Bi-pap 40 11/25/17 23:05 Bi-pap 40 11/25/17 21:04 138 25 96 Facial 40 11/25/17 20:00 40 11/25/17 20:00 98.6 133 17 140/87 97 Bi-pap 40 98.6 11/25/17 20:00 134 11/25/17 19:04 138 20 97 Bi-pap 40 11/25/17 19:04 Bi-pap 40 11/25/17 19:03 133 20 97 Facial 40 11/25/17 16:52 132 18 100 Facial 40 11/25/17 16:00 97.5 139 20 133/86 100 Bi-pap 40 97.5 11/25/17 16:00 40 11/25/17 15:54 131 22 100 Bi-pap 40 11/25/17 15:47 131 18 100 Facial 40 11/25/17 15:47 131 18 100 Bi-pap 40 11/25/17 15:26 133 Height (Feet): 5 Height (Inches): 6.00 Weight (Pounds): 129 Objective HEENT: anicteric Respiratory/Chest: normal breath sounds Cardiovascular: regular rhythm Abdomen: tender Laboratory Tests Test 11/26/17 05:00 White Blood Count 15.1 K/UL (4.8-10.8) H Red Blood Count 4.64 M/UL (4.20-5.40) Hemoglobin 13.6 G/DL (12.0-16.0) Hematocrit 41.8 % (37.0-47.0) Mean Corpuscular Volume 90 FL (80-99) Mean Corpuscular Hemoglobin 29.2 PG (27.0-31.0) Mean Corpuscular Hemoglobin Concent 32.5 G/DL (32.0-36.0) Red Cell Distribution Width 15.1 % (11.6-14.8) H Platelet Count 134 K/UL (150-450) L Mean Platelet Volume 7.7 FL (6.5-10.1) Neutrophils (%) (Auto) 76.1 % (45.0-75.0) H Lymphocytes (%) (Auto) 17.4 % (20.0-45.0) L Monocytes (%) (Auto) 4.7 % (1.0-10.0) Eosinophils (%) (Auto) 0.6 % (0.0-3.0) Basophils (%) (Auto) 1.1 % (0.0-2.0) Sodium Level 155 MMOL/L (136-145) H Potassium Level 3.1 MMOL/L (3.5-5.1) L Chloride Level 112 MMOL/L (98-107) H Carbon Dioxide Level 32 MMOL/L (21-32) Anion Gap 11 mmol/L (5-15) Blood Urea Nitrogen 68 mg/dL (7-18) H Creatinine 1.4 MG/DL (0.55-1.30) H Estimat Glomerular Filtration Rate 45.8 mL/min (>60) Glucose Level 137 MG/DL (74-106) H Calcium Level 9.3 MG/DL (8.5-10.1) Current Medications Medications (Trade) Dose Ordered Sig/Vaibhav Route PRN Reason Start Time Stop Time Status Last Admin Dose Admin Acetaminophen (Tylenol) 650 mg Q4H PRN ORAL fever (temp>100.5F) 11/25/17 13:30 12/11/17 13:29 11/26/17 06:22 Acetaminophen/ Hydrocodone Bitart ([place] 10/325) 1 tab Q4H PRN ORAL Moderate Pain (Pain Scale 4-6) 11/26/17 09:30 12/03/17 09:29 Dextrose (Dextrose 50%) 50 ml STAT PRN IV Hypoglycemia BS<60mg/dL 11/25/17 13:30 12/25/17 13:29 Dextrose/Sodium Chloride 1,000 ml @ 60 mls/hr [id number] IV 11/26/17 13:00 12/26/17 12:59 11/26/17 03:50 Heparin Sodium (Porcine) (Heparin 5000 units/ml) 5,000 units EVERY 12 HOURS SUBQ 11/25/17 21:00 12/11/17 20:59 11/26/17 10:18 Levalbuterol HCl (Xopenex) 0.625 mg Q4HRT HHN 11/25/17 15:00 11/27/17 14:59 11/26/17 08:45 Levetiracetam (Keppra) 1,000 mg EVERY 8 HOURS ORAL 11/26/17 09:00 12/26/17 08:59 Levothyroxine Sodium (Synthroid) 75 mcg ACBREAKFAST ORAL 11/26/17 06:30 12/12/17 06:29 11/26/17 06:21 Nitroglycerin (Ntg) 0.4 mg Q5M X 3 DOSES PRN SL Prn Chest Pain 11/25/17 12:15 12/11/17 10:59 11/26/17 01:53 Ondansetron HCl (Zofran) 4 mg Q6H PRN IVP Nausea & Vomiting 11/25/17 14:30 12/11/17 20:29 11/26/17 00:40 Potassium Chloride 20 meq/ Sodium Chloride 285 ml @ 142.5 mls/ hr ONCE ONCE IVPB 11/26/17 13:30 11/26/17 15:29 11/26/17 14:03 Kathleen Lafleur M.D. November 26, 2017 14:41
[2017-11-26 16:00] VITALS: BP 124/78
--- NOTE | 2017-11-26 16:02 | Cardiac Electrophysiology PN ---
Assessment/Plan Assessment/Plan 1. Sinus tachycardia with no evidence of fib or SVT due to pain and respiratory failure. Echocardiogram showed EF 65%. 2. Malignant pleural effusion and metastatic cancer. Follow up Dr. Wagner. S/p Left Thoracentesis on 11/12/17 Morphine pump in abdomen. On BIPAP 3. Lung mass. 4. Crohn disease and history of exploratory laparotomy, under management of Dr. Gallegos. 5. Ascites paracentesis with cytology and per Dr. Bains. 6. DNR and DNI DW RN Subjective Subjective On BIPAP on GABRIEL in sinus tach 120-130s. DNR and lethargic Objective Last 24 Hour Vital Signs Date Time Temp Pulse Resp B/P (MAP) Pulse Ox O2 Delivery O2 Flow Rate FiO2 11/26/17 12:50 125 22 95 11/26/17 12:00 136 11/26/17 12:00 55 11/26/17 12:00 98.4 133 22 121/77 95 Venturi Mask 55 98.4 11/26/17 11:50 131 23 94 11/26/17 10:50 136 Bi-pap 11/26/17 10:50 136 Bi-pap 11/26/17 10:50 136 26 98 Facial 40 11/26/17 08:47 131 22 100 Bi-pap 40 11/26/17 08:45 129 18 100 Bi-pap 40 11/26/17 08:43 130 25 100 Facial 40 11/26/17 08:00 40 11/26/17 08:00 126 11/26/17 08:00 100.2 133 22 133/65 99 Bi-pap 40 100.2 11/26/17 07:21 99.6 11/26/17 06:42 128 22 98 Facial 40 11/26/17 06:22 101.0 11/26/17 05:12 140 24 100 Facial 40 11/26/17 04:00 101.1 138 19 124/80 96 Bi-pap 40 101.1 11/26/17 04:00 40 11/26/17 04:00 138 11/26/17 03:05 139 18 100 Bi-pap 40 11/26/17 03:05 Bi-pap 40 11/26/17 03:04 138 18 100 Facial 40 11/26/17 01:53 125/84 11/26/17 01:04 141 24 95 Facial 40 11/26/17 00:00 98.5 138 20 125/84 96 Bi-pap 40 98.5 11/26/17 00:00 40 11/26/17 00:00 139 11/25/17 23:20 136 22 97 Facial 40 11/25/17 23:13 140/87 11/25/17 23:05 142 26 98 Bi-pap 40 11/25/17 23:05 Bi-pap 40 11/25/17 21:04 138 25 96 Facial 40 11/25/17 20:00 40 11/25/17 20:00 98.6 133 17 140/87 97 Bi-pap 40 98.6 11/25/17 20:00 134 11/25/17 19:04 138 20 97 Bi-pap 40 11/25/17 19:04 Bi-pap 40 11/25/17 19:03 133 20 97 Facial 40 11/25/17 16:52 132 18 100 Facial 40 11/25/17 16:00 97.5 139 20 133/86 100 Bi-pap 40 97.5 11/25/17 16:00 40 Intake and Output 11/25/17 11/26/17 19:00 07:00 Intake Total 240 ml 710 ml Balance 240 ml 710 ml IV Total 240 ml 660 ml Other 50 ml # Voids 2 3 Laboratory Tests Test 11/26/17 05:00 White Blood Count 15.1 K/UL (4.8-10.8) H Red Blood Count 4.64 M/UL (4.20-5.40) Hemoglobin 13.6 G/DL (12.0-16.0) Hematocrit 41.8 % (37.0-47.0) Mean Corpuscular Volume 90 FL (80-99) Mean Corpuscular Hemoglobin 29.2 PG (27.0-31.0) Mean Corpuscular Hemoglobin Concent 32.5 G/DL (32.0-36.0) Red Cell Distribution Width 15.1 % (11.6-14.8) H Platelet Count 134 K/UL (150-450) L Mean Platelet Volume 7.7 FL (6.5-10.1) Neutrophils (%) (Auto) 76.1 % (45.0-75.0) H Lymphocytes (%) (Auto) 17.4 % (20.0-45.0) L Monocytes (%) (Auto) 4.7 % (1.0-10.0) Eosinophils (%) (Auto) 0.6 % (0.0-3.0) Basophils (%) (Auto) 1.1 % (0.0-2.0) Sodium Level 155 MMOL/L (136-145) H Potassium Level 3.1 MMOL/L (3.5-5.1) L Chloride Level 112 MMOL/L (98-107) H Carbon Dioxide Level 32 MMOL/L (21-32) Anion Gap 11 mmol/L (5-15) Blood Urea Nitrogen 68 mg/dL (7-18) H Creatinine 1.4 MG/DL (0.55-1.30) H Estimat Glomerular Filtration Rate 45.8 mL/min (>60) Glucose Level 137 MG/DL (74-106) H Calcium Level 9.3 MG/DL (8.5-10.1) Objective HEAD AND NECK: No JVD. BIPAP on LUNGS: Coarse rhonchi. CARDIOVASCULAR: Tachy S1 and S2 ABDOMEN: Tender with a pump under skin. EXTREMITIES: No pitting edema. Pk Dutta MD November 26, 2017 16:02
[2017-11-26] MEDS ORDERED: Tubing IV Secondary IV ONE ×2 (16:27→16:34)
[2017-11-26] MEDS ORDERED: D5 1/2NS 1000ml IV ONE (16:34)
--- NOTE | 2017-11-26 16:44 | General Progress Note ---
Assessment/Plan Status: stable, unchanged Assessment/Plan IMPRESSION/RECS: #. Stage IV malignancy, potentially lung cancer given pattern of spread, proven malignancy on pleural fluid. Has a left lower lobe lung mass. Left inferior hilar mass. Left pleural base lung mass. Left pleural effusion. Retroperitoneal lymphadenopathy. Multiple low-attenuation liver lesions. --> Discussed with elian RN, Primary MD, given poor performance status recommend palliative/hospice care --> Do not recommend any further diagnosis/tissue given poor state, is not a chemotherapy candidate #. Anemia due to underlying malignancy - continue to closely monitor --> hgb goal is >7. Transfuse if needed. #. Crohn disease. #. Opioid dependence. #. Chronic obstructive pulmonary disease. #. History of smoking. #. Emphysema. #. Perianal abscess. #. Intractable abdominal pain. #. Status post morphine pump placement. #. Status post exploratory laparotomy. #. Pneumoperitoneum. #. Tachycardia. Subjective Date patient seen: November 25, 2017 Constitutional: Reports: no symptoms HEENT: Reports: no symptoms Cardiovascular: Reports: no symptoms Gastrointestinal/Abdominal: Reports: no symptoms Neurologic/Psychiatric: Reports: no symptoms Allergies: Coded Allergies: No Known Allergies (Verified , 05/21/06) Subjective Patient is awake and stable. In no acute medical distress Objective Last 24 Hour Vital Signs Date Time Temp Pulse Resp B/P (MAP) Pulse Ox O2 Delivery O2 Flow Rate FiO2 11/26/17 16:00 55 11/26/17 16:00 99.6 131 23 124/78 96 Venturi Mask 55 99.6 11/26/17 16:00 136 11/26/17 12:50 125 22 95 11/26/17 12:00 136 11/26/17 12:00 55 11/26/17 12:00 98.4 133 22 121/77 95 Venturi Mask 55 98.4 11/26/17 11:50 131 23 94 11/26/17 10:50 136 Bi-pap 11/26/17 10:50 136 Bi-pap 11/26/17 10:50 136 26 98 Facial 40 11/26/17 08:47 131 22 100 Bi-pap 40 11/26/17 08:45 129 18 100 Bi-pap 40 11/26/17 08:43 130 25 100 Facial 40 11/26/17 08:00 40 11/26/17 08:00 126 11/26/17 08:00 100.2 133 22 133/65 99 Bi-pap 40 100.2 11/26/17 07:21 99.6 11/26/17 06:42 128 22 98 Facial 40 11/26/17 06:22 101.0 11/26/17 05:12 140 24 100 Facial 40 11/26/17 04:00 101.1 138 19 124/80 96 Bi-pap 40 101.1 11/26/17 04:00 40 11/26/17 04:00 138 11/26/17 03:05 139 18 100 Bi-pap 40 11/26/17 03:05 Bi-pap 40 11/26/17 03:04 138 18 100 Facial 40 11/26/17 01:53 125/84 11/26/17 01:04 141 24 95 Facial 40 11/26/17 00:00 98.5 138 20 125/84 96 Bi-pap 40 98.5 11/26/17 00:00 40 11/26/17 00:00 139 11/25/17 23:20 136 22 97 Facial 40 11/25/17 23:13 140/87 11/25/17 23:05 142 26 98 Bi-pap 40 11/25/17 23:05 Bi-pap 40 11/25/17 21:04 138 25 96 Facial 40 11/25/17 20:00 40 11/25/17 20:00 98.6 133 17 140/87 97 Bi-pap 40 98.6 11/25/17 20:00 134 11/25/17 19:04 138 20 97 Bi-pap 40 11/25/17 19:04 Bi-pap 40 11/25/17 19:03 133 20 97 Facial 40 11/25/17 16:52 132 18 100 Facial 40 Intake and Output 11/25/17 11/26/17 19:00 07:00 Intake Total 240 ml 710 ml Balance 240 ml 710 ml IV Total 240 ml 660 ml Other 50 ml # Voids 2 3 Laboratory Tests 11/26/17 05:00: White Blood Count 15.1H, Red Blood Count 4.64, Hemoglobin 13.6, Hematocrit 41.8 , Mean Corpuscular Volume 90, Mean Corpuscular Hemoglobin 29.2, Mean Corpuscular Hemoglobin Concent 32.5, Red Cell Distribution Width 15.1H, Platelet Count 134L, Mean Platelet Volume 7.7, Neutrophils (%) (Auto) 76.1H, Lymphocytes (%) (Auto) 17.4L, Monocytes (%) (Auto) 4.7, Eosinophils (%) (Auto) 0.6, Basophils (%) (Auto) 1.1, Sodium Level 155H, Potassium Level 3.1L, Chloride Level 112H, Carbon Dioxide Level 32, Anion Gap 11, Blood Urea Nitrogen 68H, Creatinine 1.4H, Estimat Glomerular Filtration Rate 45.8, Glucose Level 137H, Calcium Level 9.3 Height (Feet): 5 Height (Inches): 6.00 Weight (Pounds): 129 General Appearance: no apparent distress, alert EENT: PERRL/EOMI Neck: non-tender Cardiovascular: normal peripheral pulses Respiratory/Chest: lungs clear, stridor Abdomen: normal bowel sounds Connor Bains MD November 26, 2017 16:44
[2017-11-26] MEDS: Piperacillin/Tazobactam 3.375 GM in NS 110 ML IVPB SCH ×2 (16:47→23:34)
[2017-11-26 18:51] LABS: APPEARANCE,URINE CLOUDY; BILIRUBIN, URINE NEGATIVE (NEGATIVE); GLUCOSE, URINE (UA) NEGATIVE (NEGATIVE); KETONES,URINE NEGATIVE (NEGATIVE); LEUKOCYTE ESTERASE ,URINE 2+ (NEGATIVE); NITRITE,URINE NEGATIVE (NEGATIVE); PH,URINE 6 (4.5-8.0); PROTEIN,URINE 3+ (NEGATIVE); UROBILINOGEN,URINE NORMAL MG/DL (0.0-1.0)
[2017-11-26 18:55] LABS: COLOR,URINE PALE YELLOW
[2017-11-26 20:00] VITALS: BP 136/66
[2017-11-27] VITALS: BP 126/71
[2017-11-27] MEDS: Acetaminophen 650 MG SUPP RECTAL PRN ×2 (00:04→09:44)
[2017-11-27] MEDS: Levalbuterol Inh UD 1.25mg/0.5ml HHN SCH ×6 (03:00→23:22)
[2017-11-27 04:00] VITALS: BP 121/69
[2017-11-27 05:35] LABS: HEMATOCRIT 41.3 % (37.0-47.0); HEMOGLOBIN 13.5 G/DL (12.0-16.0); MEAN CORPUSCULAR VOLUME 91 FL (80-99); PLATELET COUNT 97 K/UL (150-450); RED BLOOD COUNT 4.52 M/UL (4.20-5.40); RED CELL DISTRIBUTION WIDTH 15.3 % (11.6-14.8); WHITE BLOOD COUNT 17.1 K/UL (4.8-10.8)
[2017-11-27] MEDS: D5 1/2NS 1,000 ML IV SCH (05:39)
[2017-11-27] MEDS: levETIRAcetam 500mg/5ml Liquid ORAL SCH ×3 (05:40→21:42)
[2017-11-27] MEDS: Piperacillin/Tazobactam 3.375 GM in NS 110 ML IVPB SCH (05:40)
[2017-11-27 06:05] LABS: ANION GAP 13 mmol/L (5-15); BLOOD UREA NITROGEN 74 mg/dL (7-18); CALCIUM 9.7 MG/DL (8.5-10.1); CARBON DIOXIDE 30 MMOL/L (21-32); CHLORIDE 118 MMOL/L (98-107); CREATININE 1.8 MG/DL (0.55-1.30); POTASSIUM 3.8 MMOL/L (3.5-5.1)
[2017-11-27 06:08] LABS: SODIUM 162 MMOL/L (136-145)
[2017-11-27 08:00] VITALS: BP 108/65
[2017-11-27] MEDS: Heparin 5000 units/ml inj SUBQ SCH (09:00)
--- NOTE | 2017-11-27 09:08 | General Progress Note ---
Assessment/Plan Problem List: (1) Crohn's disease ICD Codes: K50.90 - Crohn's disease SNOMED: 70644578 Qualifiers: Qualified Codes: K50.919 - Crohn's disease, unspecified, with unspecified complications (2) Opioid dependence ICD Codes: F11.20 - Opioid dependence SNOMED: 29983336 (3) Intractable abdominal pain ICD Codes: R10.9 - Unspecified abdominal pain SNOMED: 75754831, 012258443 (4) COPD (chronic obstructive pulmonary disease) ICD Codes: J44.9 - Chronic obstructive pulmonary disease SNOMED: 08336030 (5) Shortness of breath (6) SOB (shortness of breath) ICD Codes: R06.02 - Shortness of breath SNOMED: 963982239 (7) UTI (urinary tract infection) ICD Codes: N39.0 - Urinary tract infection, site not specified SNOMED: 70826717 (8) Lung mass ICD Codes: R91.8 - Other nonspecific abnormal finding of lung field SNOMED: 429041632 (9) Tachycardia ICD Codes: R00.0 - Tachycardia, unspecified SNOMED: 1602587 Status: unchanged Assessment/Plan ot pt diet pain control sx eval cbc bmp am heme f/u cardio eval, ltach eval prn Subjective Constitutional: Reports: weakness Allergies: Coded Allergies: No Known Allergies (Verified , 05/21/06) All Systems: reviewed and negative except above Subjective 02 mask sleeping Objective Last 24 Hour Vital Signs Date Time Temp Pulse Resp B/P (MAP) Pulse Ox O2 Delivery O2 Flow Rate FiO2 11/27/17 08:09 49 22 96 Venturi Mask 14.0 55 11/27/17 07:59 48 22 93 Venturi Mask 15.0 55 11/27/17 04:00 55 11/27/17 04:00 97.5 131 22 121/69 85 Venturi Mask 55 97.5 11/27/17 03:57 129 11/27/17 03:16 Venturi Mask 11/27/17 03:15 Venturi Mask 11/27/17 00:34 100.5 11/27/17 00:04 102.1 11/27/17 00:00 102.1 134 22 126/71 85 Venturi Mask 55 102.1 11/26/17 23:48 133 11/26/17 23:15 Venturi Mask 11/26/17 23:14 Venturi Mask 11/26/17 20:00 99.6 135 22 136/66 91 Venturi Mask 55 99.6 11/26/17 20:00 55 11/26/17 19:51 136 11/26/17 19:39 15.0 55 11/26/17 19:37 137 24 97 Venturi Mask 15.0 55 11/26/17 19:35 55 11/26/17 16:50 133 24 97 11/26/17 16:00 55 11/26/17 16:00 99.6 131 23 124/78 96 Venturi Mask 55 99.6 11/26/17 16:00 136 11/26/17 14:45 Venturi Mask 11/26/17 14:45 129 Venturi Mask 14.0 55 11/26/17 14:45 129 22 98 11/26/17 12:50 125 22 95 11/26/17 12:00 136 11/26/17 12:00 55 11/26/17 12:00 98.4 133 22 121/77 95 Venturi Mask 55 98.4 11/26/17 11:50 131 23 94 11/26/17 10:50 136 Bi-pap 11/26/17 10:50 136 Bi-pap 11/26/17 10:50 136 26 98 Facial 40 Intake and Output 11/26/17 11/27/17 19:00 07:00 Intake Total 775.0 ml 447.16 ml Balance 775.0 ml 447.16 ml IV Total 775.0 ml 447.16 ml # Voids 1 Laboratory Tests 11/26/17 17:50: Urine Color Pale yellow, Urine Appearance Cloudy, Urine pH 6, Urine Specific [place] 1.020, Urine Protein 3+H, Urine Glucose (UA) Negative, Urine Ketones Negative, Urine Occult Blood 5+H, Urine Nitrite Negative, Urine Bilirubin Negative, Urine Urobilinogen Normal, Urine Leukocyte Esterase 2+H, Urine RBC 15- 20H, Urine WBC 10-15H, Urine Squamous Epithelial Cells Few, Urine Bacteria ManyH 11/27/17 04:00: White Blood Count 17.1H, Red Blood Count 4.52, Hemoglobin 13.5, Hematocrit 41.3 , Mean Corpuscular Volume 91, Mean Corpuscular Hemoglobin 29.9, Mean Corpuscular Hemoglobin Concent 32.7, Red Cell Distribution Width 15.3H, Platelet Count 97L, Mean Platelet Volume 8.2, Neutrophils (%) (Auto) , Lymphocytes (%) (Auto) , Monocytes (%) (Auto) , Eosinophils (%) (Auto) , Basophils (%) (Auto) , Differential Total Cells Counted 100, Neutrophils % ( Manual) 73, Lymphocytes % (Manual) 23, Monocytes % (Manual) 4, Eosinophils % ( Manual) 0, Basophils % (Manual) 0, Band Neutrophils 0, Platelet Estimate DecreasedL, Platelet Morphology Normal, Anisocytosis 1+, Sodium Level 162*H, Potassium Level 3.8, Chloride Level 118H, Carbon Dioxide Level 30, Anion Gap 13 , Blood Urea Nitrogen 74H, Creatinine 1.8H, Estimat Glomerular Filtration Rate 34.3, Glucose Level 150H, Calcium Level 9.7 Height (Feet): 5 Height (Inches): 6.00 Weight (Pounds): 129 General Appearance: lethargic EENT: normal ENT inspection Neck: normal alignment Cardiovascular: normal peripheral pulses, normal rate, regular rhythm Respiratory/Chest: chest wall non-tender, decreased breath sounds Abdomen: normal bowel sounds, non tender, soft Extremities: normal inspection Edema: no edema noted Arm (L), no edema noted Arm (R), no edema noted Leg (L), no edema noted Leg (R), no edema noted Pedal (L), no edema noted Pedal (R), no edema noted Generalized Neurologic: motor weakness Skin: normal pigmentation, warm/dry BAYRON BENEDICT November 27, 2017 09:08
--- NOTE | 2017-11-27 09:50 | Pulmonology Progress Note ---
Assessment/Plan Assessment/Plan ASSESSMENT Stage IV metastatic CA ( with left lung mass, liver masses, lymphadenopathy) Intractable abdominal pain ( due to above) Malignant pleural effusion, status post thoracentesis Acute hypoxemic respiratory failure , requiring BiPAP Acute renal failure Hypernatremia Thrombocytopenia Anemia of underlying malignancy COPD/asthma Sinus tachycardia Chronic pain syndrome ( has pain pump) History of smoking History of CVA Seizure disorder Crohn's disease PLAN OF CARE GABRIEL status IV fluids, changed to D5W due to worsening hypernatremia closely monitor renal parameters and electrolytes, correct electrolytes as needed. avoided nephrotoxics on Ventimask, titrate as needed to keep pulse oximetry above 92% pulmonary toilet DNR/DNI status since 11/24/17 ID follows, leukocytosis probably secondary to malignancy on antibiotic - Zosyn cardio follows; echo with preserved EF, no evidence of A. fib on tele dc heparin secondary to thrombocytopenia , SCD (venous duplex bilateral lower extremity negative) seizure precautions, continue Keppra pain management supportive care overall prognosis poor family desires comfort measures case discussed and evaluated by supervising physician Subjective Allergies: Coded Allergies: No Known Allergies (Verified , 05/21/06) All Systems: reviewed and negative except above Subjective poorly but still responsive to verbal stimuli WBC trending up, low grade fever Platelets trending down Sodium 162 Worsening renal parameters Objective Last 24 Hour Vital Signs Date Time Temp Pulse Resp B/P (MAP) Pulse Ox O2 Delivery O2 Flow Rate FiO2 11/27/17 08:09 49 22 96 Venturi Mask 14.0 55 11/27/17 08:00 100.0 125 26 108/65 92 Venturi Mask 55 100.0 11/27/17 07:59 48 22 93 Venturi Mask 15.0 55 11/27/17 04:00 55 11/27/17 04:00 97.5 131 22 121/69 85 Venturi Mask 55 97.5 11/27/17 03:57 129 11/27/17 03:16 Venturi Mask 11/27/17 03:15 Venturi Mask 11/27/17 00:34 100.5 11/27/17 00:04 102.1 11/27/17 00:00 102.1 134 22 126/71 85 Venturi Mask 55 102.1 11/26/17 23:48 133 11/26/17 23:15 Venturi Mask 11/26/17 23:14 Venturi Mask 11/26/17 20:00 99.6 135 22 136/66 91 Venturi Mask 55 99.6 11/26/17 20:00 55 11/26/17 19:51 136 11/26/17 19:39 15.0 55 11/26/17 19:37 137 24 97 Venturi Mask 15.0 55 11/26/17 19:35 55 11/26/17 16:50 133 24 97 11/26/17 16:00 55 11/26/17 16:00 99.6 131 23 124/78 96 Venturi Mask 55 99.6 11/26/17 16:00 136 11/26/17 14:45 Venturi Mask 11/26/17 14:45 129 Venturi Mask 14.0 55 11/26/17 14:45 129 22 98 11/26/17 12:50 125 22 95 11/26/17 12:00 136 11/26/17 12:00 55 11/26/17 12:00 98.4 133 22 121/77 95 Venturi Mask 55 98.4 11/26/17 11:50 131 23 94 11/26/17 10:50 136 Bi-pap 11/26/17 10:50 136 Bi-pap 11/26/17 10:50 136 26 98 Facial 40 Intake and Output 11/26/17 11/27/17 19:00 07:00 Intake Total 775.0 ml 447.16 ml Balance 775.0 ml 447.16 ml IV Total 775.0 ml 447.16 ml # Voids 1 General Appearance: other - mild distress HEENT: normocephalic, atraumatic, other - VM 55% Respiratory/Chest: decreased breath sounds Cardiovascular: regular rhythm, tachycardia - 120 th, other - PICC Abdomen: soft, non tender, non distended, other Neurologic/Psychiatric: other - bedridden, poorly but still responsive to verbal stimuli Laboratory Tests 11/26/17 17:50: Urine Color Pale yellow, Urine Appearance Cloudy, Urine pH 6, Urine Specific [place] 1.020, Urine Protein 3+H, Urine Glucose (UA) Negative, Urine Ketones Negative, Urine Occult Blood 5+H, Urine Nitrite Negative, Urine Bilirubin Negative, Urine Urobilinogen Normal, Urine Leukocyte Esterase 2+H, Urine RBC 15- 20H, Urine WBC 10-15H, Urine Squamous Epithelial Cells Few, Urine Bacteria ManyH 11/27/17 04:00: White Blood Count 17.1H, Red Blood Count 4.52, Hemoglobin 13.5, Hematocrit 41.3 , Mean Corpuscular Volume 91, Mean Corpuscular Hemoglobin 29.9, Mean Corpuscular Hemoglobin Concent 32.7, Red Cell Distribution Width 15.3H, Platelet Count 97L, Mean Platelet Volume 8.2, Neutrophils (%) (Auto) , Lymphocytes (%) (Auto) , Monocytes (%) (Auto) , Eosinophils (%) (Auto) , Basophils (%) (Auto) , Differential Total Cells Counted 100, Neutrophils % ( Manual) 73, Lymphocytes % (Manual) 23, Monocytes % (Manual) 4, Eosinophils % ( Manual) 0, Basophils % (Manual) 0, Band Neutrophils 0, Platelet Estimate DecreasedL, Platelet Morphology Normal, Anisocytosis 1+, Sodium Level 162*H, Potassium Level 3.8, Chloride Level 118H, Carbon Dioxide Level 30, Anion Gap 13 , Blood Urea Nitrogen 74H, Creatinine 1.8H, Estimat Glomerular Filtration Rate 34.3, Glucose Level 150H, Calcium Level 9.7 Current Medications Medications (Trade) Dose Ordered Sig/Vaibhav Route PRN Reason Start Time Stop Time Status Last Admin Dose Admin Acetaminophen (Tylenol) 650 mg Q4H PRN ORAL fever (temp>100.5F) 11/25/17 13:30 12/11/17 13:29 11/26/17 06:22 Acetaminophen (Tylenol) 650 mg Q4H PRN RECTAL Mild Pain (Pain Scale 1-3) 11/27/17 00:00 12/27/17 00:00 11/27/17 00:04 Acetaminophen/ Hydrocodone Bitart ([place] 10/325) 1 tab Q4H PRN ORAL Moderate Pain (Pain Scale 4-6) 11/26/17 09:30 12/03/17 09:29 Dextrose (Dextrose 50%) 50 ml STAT PRN IV Hypoglycemia BS<60mg/dL 11/25/17 13:30 12/25/17 13:29 Dextrose/Sodium Chloride 1,000 ml @ 100 mls/hr Q10H IV 11/27/17 10:00 12/26/17 09:59 Heparin Sodium (Porcine) (Heparin 5000 units/ml) 5,000 units EVERY 12 HOURS SUBQ 11/25/17 21:00 12/11/17 20:59 11/26/17 21:10 Levalbuterol HCl (Xopenex) 0.625 mg Q4HRT HHN 11/25/17 15:00 11/27/17 14:59 11/27/17 07:59 Levetiracetam (Keppra) 1,000 mg EVERY 8 HOURS ORAL 11/26/17 09:00 12/26/17 08:59 Levothyroxine Sodium (Synthroid) 75 mcg ACBREAKFAST ORAL 11/26/17 06:30 12/12/17 06:29 11/26/17 06:21 Nitroglycerin (Ntg) 0.4 mg Q5M X 3 DOSES PRN SL Prn Chest Pain 11/25/17 12:15 12/11/17 10:59 11/26/17 01:53 Ondansetron HCl (Zofran) 4 mg Q6H PRN IVP Nausea & Vomiting 11/25/17 14:30 12/11/17 20:29 11/26/17 00:40 Piperacillin Sod/ Tazobactam Sod 3.375 gm/Sodium Chloride 110 ml @ 27.5 mls/hr EVERY 8 HOURS IVPB 11/26/17 16:00 12/01/17 15:59 11/27/17 05:40 Keon HarrisGuth[facility] CenterGwendolyn Collins NP November 27, 2017 09:50
[2017-11-27] MEDS ORDERED: D5 1/2NS 1,000 ML IV SCH (10:00)
--- NOTE | 2017-11-27 11:45 | Infectious Diseases Prog Note ---
Assessment/Plan Assessment/Plan ASSESSMENT: The patient is a 66-year-old female with, Sepsis- r/o bacteremia, probably superimposed PNA -u/a wbc 10-15, niet neg, leuk +2; ucx p -sp cx p -Bcx p Lethargy, on Bipap- improvnig- ?oversedation -CXR 11/25: Parenchymal opacities, primarily interstitial laterally demonstrated throughout the lungs with some interval improvement over the last 24 hours -CXR;Extensive mixed interstitial alveolar airspace disease bilaterally unchanged fever, recurrent- prorably due to malignancy-, possible concomitant PNA Leukocytosis, mild- recurrent; improving- ?2ry to possible malignancy Probable small bowel obstruction Recent history of polymicrobial gram-negative bacteremia including Stenotrophomonas maltophilia and Enterobacter. History of Aggie esophagitis. History of C. difficile in the past. Air anterior to the liver , ? free intraperitoneal air ( Surg doubt perforation ) Lung and liver masses Ro Malignancy CT: Pleural-based mass at the left lung base / Moderate-sized left pleural effusion, left-sided pleural nodularity and retroperitoneal and paraspinal nodules/masses. Left inferior hilar mass lesion partially visualized. New low- attenuation liver lesion ( concerning for malignancy/metastatic disease ) Pl effusion SP ultrasound-guided thoracentesis, 960 cc ( m/l 2/2 mets, no evid of Empyema ) -exudate fluid: WBC 613 (n 6), pH 8, lguc 98, prot 4.6 (serum 8.4); cx stain: GRAM STAIN Final GRAM STAIN RESULT FEW WHITE BLOOD CELLS NO ORGANISMS SEEN cx negative prelime cytology report: malignant non-small cells in the pleural cavity. Crohn's disease. History of bowel obstruction x2 with lysis of adhesions in 2004. COPD. History of chronic pain syndrome, on morphine pump. CVA in 2004. Seizure disorder. PLAN: Switch Zosyn #2 to Meropenem and add IV Vancomycin given worsening sepsis; continue if consistent with goals of care -11/17 SP Zosyn #5 -f/u repeat cultures Monitor CBC and BMP. follow GI recommendations hem, surg f/u discussions of goals of care ongoing on GABRIEL- bipap management poor px Subjective Allergies: Coded Allergies: No Known Allergies (Verified , 05/21/06) Subjective Tm 102.6 leukocytosis increasing repeat cx p Objective Vital Signs Last 24 Hour Vital Signs Date Time Temp Pulse Resp B/P (MAP) Pulse Ox O2 Delivery O2 Flow Rate FiO2 11/27/17 10:02 102.6 102.6 11/27/17 09:44 102.9 11/27/17 08:09 49 22 96 Venturi Mask 14.0 55 11/27/17 08:00 100.0 125 26 108/65 92 Venturi Mask 55 100.0 11/27/17 08:00 55 11/27/17 08:00 127 11/27/17 07:59 48 22 93 Venturi Mask 15.0 55 11/27/17 04:00 55 11/27/17 04:00 97.5 131 22 121/69 85 Venturi Mask 55 97.5 11/27/17 03:57 129 11/27/17 03:16 Venturi Mask 11/27/17 03:15 Venturi Mask 11/27/17 00:34 100.5 11/27/17 00:04 102.1 11/27/17 00:00 102.1 134 22 126/71 85 Venturi Mask 55 102.1 11/26/17 23:48 133 11/26/17 23:15 Venturi Mask 11/26/17 23:14 Venturi Mask 11/26/17 20:00 99.6 135 22 136/66 91 Venturi Mask 55 99.6 11/26/17 20:00 55 11/26/17 19:51 136 11/26/17 19:39 15.0 55 11/26/17 19:37 137 24 97 Venturi Mask 15.0 55 11/26/17 19:35 55 11/26/17 16:50 133 24 97 11/26/17 16:00 55 11/26/17 16:00 99.6 131 23 124/78 96 Venturi Mask 55 99.6 11/26/17 16:00 136 11/26/17 14:45 Venturi Mask 11/26/17 14:45 129 Venturi Mask 14.0 55 11/26/17 14:45 129 22 98 11/26/17 12:50 125 22 95 11/26/17 12:00 136 11/26/17 12:00 55 11/26/17 12:00 98.4 133 22 121/77 95 Venturi Mask 55 98.4 11/26/17 11:50 131 23 94 Height (Feet): 5 Height (Inches): 6.00 Weight (Pounds): 129 Objective HEENT: anicteric Respiratory/Chest: normal breath sounds Cardiovascular: regular rhythm Abdomen: tender Laboratory Tests Test 11/26/17 17:50 11/27/17 04:00 Urine Color Pale yellow Urine Appearance Cloudy Urine pH 6 (4.5-8.0) Urine Specific [place] 1.020 (1.005-1.035) Urine Protein 3+ (NEGATIVE) H Urine Glucose (UA) Negative (NEGATIVE) Urine Ketones Negative (NEGATIVE) Urine Occult Blood 5+ (NEGATIVE) H Urine Nitrite Negative (NEGATIVE) Urine Bilirubin Negative (NEGATIVE) Urine Urobilinogen Normal MG/DL (0.0-1.0) Urine Leukocyte Esterase 2+ (NEGATIVE) H Urine RBC 15-20 /HPF (0 - 2) H Urine WBC 10-15 /HPF (0 - 2) H Urine Squamous Epithelial Cells Few /LPF (NONE/OCC) Urine Bacteria Many /HPF (NONE) H White Blood Count 17.1 K/UL (4.8-10.8) H Red Blood Count 4.52 M/UL (4.20-5.40) Hemoglobin 13.5 G/DL (12.0-16.0) Hematocrit 41.3 % (37.0-47.0) Mean Corpuscular Volume 91 FL (80-99) Mean Corpuscular Hemoglobin 29.9 PG (27.0-31.0) Mean Corpuscular Hemoglobin Concent 32.7 G/DL (32.0-36.0) Red Cell Distribution Width 15.3 % (11.6-14.8) H Platelet Count 97 K/UL (150-450) L Mean Platelet Volume 8.2 FL (6.5-10.1) Neutrophils (%) (Auto) % (45.0-75.0) Lymphocytes (%) (Auto) % (20.0-45.0) Monocytes (%) (Auto) % (1.0-10.0) Eosinophils (%) (Auto) % (0.0-3.0) Basophils (%) (Auto) % (0.0-2.0) Differential Total Cells Counted 100 Neutrophils % (Manual) 73 % (45-75) Lymphocytes % (Manual) 23 % (20-45) Monocytes % (Manual) 4 % (1-10) Eosinophils % (Manual) 0 % (0-3) Basophils % (Manual) 0 % (0-2) Band Neutrophils 0 % (0-8) Platelet Estimate Decreased L Platelet Morphology Normal Anisocytosis 1+ Sodium Level 162 MMOL/L (136-145) *H Potassium Level 3.8 MMOL/L (3.5-5.1) Chloride Level 118 MMOL/L (98-107) H Carbon Dioxide Level 30 MMOL/L (21-32) Anion Gap 13 mmol/L (5-15) Blood Urea Nitrogen 74 mg/dL (7-18) H Creatinine 1.8 MG/DL (0.55-1.30) H Estimat Glomerular Filtration Rate 34.3 mL/min (>60) Glucose Level 150 MG/DL (74-106) H Calcium Level 9.7 MG/DL (8.5-10.1) Current Medications Medications (Trade) Dose Ordered Sig/Vaibhav Route PRN Reason Start Time Stop Time Status Last Admin Dose Admin Acetaminophen (Tylenol) 650 mg Q4H PRN ORAL fever (temp>100.5F) 11/25/17 13:30 12/11/17 13:29 11/26/17 06:22 Acetaminophen (Tylenol) 650 mg Q4H PRN RECTAL Mild Pain (Pain Scale 1-3) 11/27/17 00:00 12/27/17 00:00 11/27/17 09:44 Acetaminophen/ Hydrocodone Bitart ([place] 10/325) 1 tab Q4H PRN ORAL Moderate Pain (Pain Scale 4-6) 11/26/17 09:30 12/03/17 09:29 Dextrose 1,000 ml @ 100 mls/hr Q10H IV 11/27/17 10:00 12/27/17 09:59 11/27/17 09:51 Dextrose (Dextrose 50%) 50 ml STAT PRN IV Hypoglycemia BS<60mg/dL 11/25/17 13:30 12/25/17 13:29 Levalbuterol HCl (Xopenex) 0.625 mg Q4HRT HHN 11/27/17 11:00 11/29/17 10:59 Levetiracetam (Keppra) 1,000 mg EVERY 8 HOURS ORAL 11/26/17 09:00 12/26/17 08:59 Levothyroxine Sodium (Synthroid) 75 mcg ACBREAKFAST ORAL 11/26/17 06:30 12/12/17 06:29 11/26/17 06:21 Nitroglycerin (Ntg) 0.4 mg Q5M X 3 DOSES PRN SL Prn Chest Pain 11/25/17 12:15 12/11/17 10:59 11/26/17 01:53 Ondansetron HCl (Zofran) 4 mg Q6H PRN IVP Nausea & Vomiting 11/25/17 14:30 12/11/17 20:29 11/26/17 00:40 Piperacillin Sod/ Tazobactam Sod 3.375 gm/Sodium Chloride 110 ml @ 27.5 mls/hr EVERY 8 HOURS IVPB 11/26/17 16:00 12/01/17 15:59 11/27/17 05:40 Kathleen Lafleur M.D. November 27, 2017 11:45
[2017-11-27 12:00] VITALS: BP 105/67
[2017-11-27] MEDS ORDERED: Meropenem 1 GM in NS 55 ML IVPB SCH (13:00)
[2017-11-27] MEDS ORDERED: Vancomycin 1gm in D5W 275ml IVPB SCH (13:30)
--- NOTE | 2017-11-27 14:13 | General Progress Note ---
Progress Note Progress Note patient seen and examined full note dictated FAMILIA SHEPHERD November 27, 2017 14:13
--- NOTE | 2017-11-27 15:01 | General Surgery Progress Note ---
General Surgery-Progress Note Subjective Additional Comments still with oxygen requirement. prognosis poor. able to communicate today. Objective Last 24 Hour Vital Signs Date Time Temp Pulse Resp B/P (MAP) Pulse Ox O2 Delivery O2 Flow Rate FiO2 11/27/17 13:17 56 22 Non-Rebreather 15.0 100 11/27/17 12:05 98.0 11/27/17 12:00 97.7 59 26 105/67 90 Venturi Mask 55 97.7 11/27/17 12:00 40 11/27/17 11:56 121 11/27/17 11:50 53 22 97 Non-Rebreather 15.0 100 11/27/17 11:40 53 24 90 Venturi Mask 15.0 55 11/27/17 10:02 102.6 102.6 11/27/17 09:44 102.9 11/27/17 08:09 49 22 96 Venturi Mask 14.0 55 11/27/17 08:00 100.0 125 26 108/65 92 Venturi Mask 55 100.0 11/27/17 08:00 55 11/27/17 08:00 127 11/27/17 07:59 48 22 93 Venturi Mask 15.0 55 11/27/17 04:00 55 11/27/17 04:00 97.5 131 22 121/69 85 Venturi Mask 55 97.5 11/27/17 03:57 129 11/27/17 03:16 Venturi Mask 11/27/17 03:15 Venturi Mask 11/27/17 00:04 102.1 11/27/17 00:00 102.1 134 22 126/71 85 Venturi Mask 55 102.1 11/26/17 23:48 133 11/26/17 23:15 Venturi Mask 11/26/17 23:14 Venturi Mask 11/26/17 20:00 99.6 135 22 136/66 91 Venturi Mask 55 99.6 11/26/17 20:00 55 11/26/17 19:51 136 11/26/17 19:39 15.0 55 11/26/17 19:37 137 24 97 Venturi Mask 15.0 55 11/26/17 19:35 55 11/26/17 16:50 133 24 97 11/26/17 16:00 55 11/26/17 16:00 99.6 131 23 124/78 96 Venturi Mask 55 99.6 11/26/17 16:00 136 I&O Intake and Output 11/26/17 11/27/17 19:00 07:00 Intake Total 775.0 ml 447.16 ml Balance 775.0 ml 447.16 ml IV Total 775.0 ml 447.16 ml # Voids 1 Drains: none Cardiovascular: RSR Respiratory: decreased breath sounds Abdomen: soft, non-tender, present bowel sounds Extremities: no cyanosis Laboratory Tests Test 11/26/17 17:50 11/27/17 04:00 Urine Color Pale yellow Urine Appearance Cloudy Urine pH 6 (4.5-8.0) Urine Specific [place] 1.020 (1.005-1.035) Urine Protein 3+ (NEGATIVE) H Urine Glucose (UA) Negative (NEGATIVE) Urine Ketones Negative (NEGATIVE) Urine Occult Blood 5+ (NEGATIVE) H Urine Nitrite Negative (NEGATIVE) Urine Bilirubin Negative (NEGATIVE) Urine Urobilinogen Normal MG/DL (0.0-1.0) Urine Leukocyte Esterase 2+ (NEGATIVE) H Urine RBC 15-20 /HPF (0 - 2) H Urine WBC 10-15 /HPF (0 - 2) H Urine Squamous Epithelial Cells Few /LPF (NONE/OCC) Urine Bacteria Many /HPF (NONE) H White Blood Count 17.1 K/UL (4.8-10.8) H Red Blood Count 4.52 M/UL (4.20-5.40) Hemoglobin 13.5 G/DL (12.0-16.0) Hematocrit 41.3 % (37.0-47.0) Mean Corpuscular Volume 91 FL (80-99) Mean Corpuscular Hemoglobin 29.9 PG (27.0-31.0) Mean Corpuscular Hemoglobin Concent 32.7 G/DL (32.0-36.0) Red Cell Distribution Width 15.3 % (11.6-14.8) H Platelet Count 97 K/UL (150-450) L Mean Platelet Volume 8.2 FL (6.5-10.1) Neutrophils (%) (Auto) % (45.0-75.0) Lymphocytes (%) (Auto) % (20.0-45.0) Monocytes (%) (Auto) % (1.0-10.0) Eosinophils (%) (Auto) % (0.0-3.0) Basophils (%) (Auto) % (0.0-2.0) Differential Total Cells Counted 100 Neutrophils % (Manual) 73 % (45-75) Lymphocytes % (Manual) 23 % (20-45) Monocytes % (Manual) 4 % (1-10) Eosinophils % (Manual) 0 % (0-3) Basophils % (Manual) 0 % (0-2) Band Neutrophils 0 % (0-8) Platelet Estimate Decreased L Platelet Morphology Normal Anisocytosis 1+ Sodium Level 162 MMOL/L (136-145) *H Potassium Level 3.8 MMOL/L (3.5-5.1) Chloride Level 118 MMOL/L (98-107) H Carbon Dioxide Level 30 MMOL/L (21-32) Anion Gap 13 mmol/L (5-15) Blood Urea Nitrogen 74 mg/dL (7-18) H Creatinine 1.8 MG/DL (0.55-1.30) H Estimat Glomerular Filtration Rate 34.3 mL/min (>60) Glucose Level 150 MG/DL (74-106) H Calcium Level 9.7 MG/DL (8.5-10.1) Plan Problems: (1) Intractable abdominal pain Assessment & Plan: 66F with abdominal pain. very complex medical and surgical history. now with complex CT findings of left pleural effusion, left lower lung mass, large mediastinal and periaortic lymph nodes, new liver lesions, and air around the liver. unable to tell if bowel loop (possible blind end from prior surgery) noted in right upper quadrant above liver or if abscess or if free air. exam not consistent with perforation and no significant free fluid noted on CT or area of perforation. contrast into distal bowel without leak. initial leukocytosis resolved. low grade persistent fevers. recent cough. unfortunately no clear explanation as to patients current condition. lung mass , effusion, new liver masses, and nodes very concerning for malignant process. Exam stable compared to prior exams (patient seen during last admission and known to me). will need much more extensive work up. I discussed these findings with patient. I explained possible need for urgent surgery but given history and complex surgical history we will monitor clinically first. if declines will proceed with surgery which is VERY high risk in her. if stable will continue with work up. patient and partner express understand and agree with plan. s/p thoracentesis 4/20. malignant non small cell cancer CT reviewed. Path reviewed Discussed with patient Need tissue diagnosis. unfortunately path unable to determine etiology based on cytology Discussed history, care and plans with family member (Son). given her condition , how aggressive and advanced condition, they currently have decided to continue with comfort care. will hold on biopsy. help with keeping her comfortable. thank you Wolf Quan November 27, 2017 15:01
[2017-11-27 16:00] VITALS: BP 108/68
--- NOTE | 2017-11-27 16:41 | Cardiac Electrophysiology PN ---
Assessment/Plan Assessment/Plan 1. Sinus tachycardia with no evidence of fib or SVT due to pain and respiratory failure. Echocardiogram showed EF 65%. On iv Abx 2. Malignant pleural effusion and metastatic cancer. Follow up Dr. Wagner. S/p Left Thoracentesis on 11/12/17 Morphine pump in abdomen. On BIPAP 3. Lung mass. 4. Crohn disease and history of exploratory laparotomy, under management of Dr. Gallegos. 5. Ascites paracentesis with cytology and per Dr. Bains. 6. DNR and DNI DW RN and family at bedside Subjective Subjective On BIPAP on GABRIEL in sinus tach 120-130s.Had T 102.9. DNR and lethargic. Family at bedside. Objective Last 24 Hour Vital Signs Date Time Temp Pulse Resp B/P (MAP) Pulse Ox O2 Delivery O2 Flow Rate FiO2 11/27/17 16:00 116 11/27/17 15:55 111 22 96 Non-Rebreather 15.0 100 11/27/17 13:17 56 22 Non-Rebreather 15.0 100 11/27/17 12:05 98.0 11/27/17 12:00 97.7 59 26 105/67 90 Venturi Mask 55 97.7 11/27/17 12:00 40 11/27/17 11:56 121 11/27/17 11:50 53 22 97 Non-Rebreather 15.0 100 11/27/17 11:40 53 24 90 Venturi Mask 15.0 55 11/27/17 10:02 102.6 102.6 11/27/17 09:44 102.9 11/27/17 08:09 49 22 96 Venturi Mask 14.0 55 11/27/17 08:00 100.0 125 26 108/65 92 Venturi Mask 55 100.0 11/27/17 08:00 55 11/27/17 08:00 127 11/27/17 07:59 48 22 93 Venturi Mask 15.0 55 11/27/17 04:00 55 11/27/17 04:00 97.5 131 22 121/69 85 Venturi Mask 55 97.5 11/27/17 03:57 129 11/27/17 03:16 Venturi Mask 11/27/17 03:15 Venturi Mask 11/27/17 00:04 102.1 11/27/17 00:00 102.1 134 22 126/71 85 Venturi Mask 55 102.1 11/26/17 23:48 133 11/26/17 23:15 Venturi Mask 11/26/17 23:14 Venturi Mask 11/26/17 20:00 99.6 135 22 136/66 91 Venturi Mask 55 99.6 11/26/17 20:00 55 11/26/17 19:51 136 11/26/17 19:39 15.0 55 11/26/17 19:37 137 24 97 Venturi Mask 15.0 55 11/26/17 19:35 55 11/26/17 16:50 133 24 97 Intake and Output 11/26/17 11/27/17 19:00 07:00 Intake Total 775.0 ml 447.16 ml Balance 775.0 ml 447.16 ml IV Total 775.0 ml 447.16 ml # Voids 1 Laboratory Tests Test 11/26/17 17:50 11/27/17 04:00 Urine Color Pale yellow Urine Appearance Cloudy Urine pH 6 (4.5-8.0) Urine Specific [place] 1.020 (1.005-1.035) Urine Protein 3+ (NEGATIVE) H Urine Glucose (UA) Negative (NEGATIVE) Urine Ketones Negative (NEGATIVE) Urine Occult Blood 5+ (NEGATIVE) H Urine Nitrite Negative (NEGATIVE) Urine Bilirubin Negative (NEGATIVE) Urine Urobilinogen Normal MG/DL (0.0-1.0) Urine Leukocyte Esterase 2+ (NEGATIVE) H Urine RBC 15-20 /HPF (0 - 2) H Urine WBC 10-15 /HPF (0 - 2) H Urine Squamous Epithelial Cells Few /LPF (NONE/OCC) Urine Bacteria Many /HPF (NONE) H White Blood Count 17.1 K/UL (4.8-10.8) H Red Blood Count 4.52 M/UL (4.20-5.40) Hemoglobin 13.5 G/DL (12.0-16.0) Hematocrit 41.3 % (37.0-47.0) Mean Corpuscular Volume 91 FL (80-99) Mean Corpuscular Hemoglobin 29.9 PG (27.0-31.0) Mean Corpuscular Hemoglobin Concent 32.7 G/DL (32.0-36.0) Red Cell Distribution Width 15.3 % (11.6-14.8) H Platelet Count 97 K/UL (150-450) L Mean Platelet Volume 8.2 FL (6.5-10.1) Neutrophils (%) (Auto) % (45.0-75.0) Lymphocytes (%) (Auto) % (20.0-45.0) Monocytes (%) (Auto) % (1.0-10.0) Eosinophils (%) (Auto) % (0.0-3.0) Basophils (%) (Auto) % (0.0-2.0) Differential Total Cells Counted 100 Neutrophils % (Manual) 73 % (45-75) Lymphocytes % (Manual) 23 % (20-45) Monocytes % (Manual) 4 % (1-10) Eosinophils % (Manual) 0 % (0-3) Basophils % (Manual) 0 % (0-2) Band Neutrophils 0 % (0-8) Platelet Estimate Decreased L Platelet Morphology Normal Anisocytosis 1+ Sodium Level 162 MMOL/L (136-145) *H Potassium Level 3.8 MMOL/L (3.5-5.1) Chloride Level 118 MMOL/L (98-107) H Carbon Dioxide Level 30 MMOL/L (21-32) Anion Gap 13 mmol/L (5-15) Blood Urea Nitrogen 74 mg/dL (7-18) H Creatinine 1.8 MG/DL (0.55-1.30) H Estimat Glomerular Filtration Rate 34.3 mL/min (>60) Glucose Level 150 MG/DL (74-106) H Calcium Level 9.7 MG/DL (8.5-10.1) Objective HEAD AND NECK: BIPAP on LUNGS: Coarse rhonchi. CARDIOVASCULAR: Tachy S1 and S2 ABDOMEN: Tender with a pump under skin. EXTREMITIES: No pitting edema. Pk Dutta MD November 27, 2017 16:41
[2017-11-27 20:00] VITALS: BP 106/64
[2017-11-27] MEDS ORDERED: Dyna-Hex 2% Top Sol 2oz TOPIC SCH (21:00)
[2017-11-27] MEDS: Meropenem 1 GM in NS 55 ML IVPB SCH (21:41)
--- NOTE | 2017-11-27 22:15 | Progress Note ---
DATE: 11/27/2017 SUBJECTIVE: The patient is a 66-year-old female with intractable abdominal pain. This patient still complaining of anxiety, mood lability, and slight decline in cognition worsened by stress of her medical illness that is why her attending has requested daily psychiatric consultation. MENTAL STATUS EXAMINATION: This is a 66-year-old female. Appearance disheveled. Attitude irritable and agitated. Affect guarded and restricted. Intellect poor. Mood depressed, anxious. Motor activity, psychomotor agitation. Attention span is poor. Orientation x2. Speech is low volume and slurred. Thought process slightly, disorganized, anxious. Insight and judgment is fair. Denies suicidal or homicidal thoughts. DIAGNOSIS: Bipolar 2. PLAN: Continue treatment with Neurontin to stabilize her mood, reduce anxiety and prevent any further mood lability. A 18 to 20 minutes of supportive psychotherapy provided. Chart reviewed and discussed with staff. Seen and assessed at bedside. Continued to be followed by Psychiatry daily throughout hospital course to prevent any further decline in her cognition at the request of her attending physician. Mena Goncalves M.D. DR: Marilu JOB#: [id number] CC:
[2017-11-28] VITALS: BP 106/64
--- NOTE | 2017-11-28 00:15 | Consultation ---
DATE OF CONSULTATION: 11/27/2017 CONSULTING PHYSICIAN: Estefani Pandey M.D. REFERRING PHYSICIAN: Barber Dial D.O. REASON FOR CONSULTATION: Hypernatremia, acute renal failure. HISTORY OF PRESENT ILLNESS: The patient is an unfortunate 66-year-old, female with past medical history significant for Crohn disease with hypertension, CVA, seizure disorder, history of chronic pain syndrome, history of COPD, who was originally admitted with diagnosis of a diagnosis of small bowel obstruction, found to be tachycardic, hypoxemic. The patient found to have metastatic dysphagia or CA with metastasis to the lung, liver, and lymphadenopathy. She is found to have right recurrent pleural effusion. She also found to have respiratory failure. She was on oral feeding up to this morning when she found to not able to swallow and the patient found to have an elevation in BUN and creatinine and also found to be severely hypernatremic. I was called for management of renal disease and electrolyte imbalance. PAST MEDICAL HISTORY: Includin. History of CVA. 2. History of seizure disorder. 3. History of Crohn disease. 4. History of small bowel obstruction. 5. History of chronic pain syndrome. 6. History of COPD. 7. History of asthma. 8. History of anemia. 9. History of thrombocytopenia. 10. History of failure to thrive and history of respiratory failure. 11. History of multiple abdominal surgery. MEDICATIONS: Reviewed. FAMILY HISTORY: Noncontributory. SOCIAL HISTORY: The patient lives at home. There is a history of previous tobacco use but no alcohol or drug use. REVIEW OF SYSTEMS: Limited. The patient is currently on non-rebreather mask and seems to be confused and not able to provide meaningful answers to my question. PHYSICAL EXAMINATION: VITAL SIGNS: The patient had temperature of 98 degrees, blood pressure of 105/67, pulse rate of 59, and respiratory rate of 18. HEAD AND NECK: Bitemporal wasting. Extraocular movements intact. Pupils are reactive to light and accommodation. Dry mucous membranes. Currently on non-rebreather mask. LUNGS: Decreased breathing sounds on the both sides. CARDIAC: Regular rate and rhythm. S1 and S2. No murmur. No rub. ABDOMEN: Tender. No guarding or rebound. Bowel sounds decreased. EXTREMITIES: No edema. No clubbing. No cyanosis. LABORATORY AND DIAGNOSTIC DATA: Her laboratory value revealed WBC count of 17,000, hemoglobin of 13.5, hematocrit of 41, platelet count of 97. Chemistry revealed sodium of 162, potassium 3.8, chloride 118, bicarb 30, BUN 74, creatinine of 1.8, and glucose of 150. Calcium of 9.5. AST of 119, ALT of 37, alkaline phosphatase of 156. UA revealed specific gravity of 1.020, pH of 6, protein 3+, rbc's 15 to 20, wbc's 10 to 15. ASSESSMENT: 1. Hypernatremia 2. Acute renal failure. 3. Malnutrition. 4. Failure to thrive. 5. Metastatic CA. 6. Recurrent pleural effusion. 7. Stage 4 Metastatic CA. PLAN: Change IV fluids to D5W. At this time, the patient is DNR/DNI. I would continue with comfort care. I would continue with D5W. Family and the son on bedside and refuse NG tube feeding. I would monitor electrolytes closely. Replace electrolytes as needed. Again, I would like to thank, Dr. Barber Dial, for allowing me to participate in the care of this patient. Estefani Pandey M.D. DR: Adelina JOB#: [id number] CC:
[2017-11-28] MEDS: Levalbuterol Inh UD 1.25mg/0.5ml HHN SCH ×7 (02:48→23:14)
[2017-11-28 04:00] VITALS: BP 116/73
[2017-11-28 05:28] LABS: HEMATOCRIT 36.9 % (37.0-47.0); HEMOGLOBIN 11.3 G/DL (12.0-16.0); MEAN CORPUSCULAR VOLUME 91 FL (80-99); PLATELET COUNT 70 K/UL (150-450); RED BLOOD COUNT 4.03 M/UL (4.20-5.40); RED CELL DISTRIBUTION WIDTH 15.2 % (11.6-14.8); WHITE BLOOD COUNT 16.3 K/UL (4.8-10.8)
[2017-11-28 05:55] LABS: ANION GAP 10 mmol/L (5-15); BLOOD UREA NITROGEN 73 mg/dL (7-18); CALCIUM 9.2 MG/DL (8.5-10.1); CARBON DIOXIDE 30 MMOL/L (21-32); CHLORIDE 120 MMOL/L (98-107); POTASSIUM 3.6 MMOL/L (3.5-5.1); SODIUM 160 MMOL/L (136-145)
[2017-11-28] MEDS: levETIRAcetam 500mg/5ml Liquid ORAL SCH ×3 (06:00→21:47)
--- NOTE | 2017-11-28 07:00 | General Progress Note ---
Assessment/Plan Problem List: (1) Crohn's disease ICD Codes: K50.90 - Crohn's disease SNOMED: 89953500 Qualifiers: Qualified Codes: K50.919 - Crohn's disease, unspecified, with unspecified complications (2) Opioid dependence ICD Codes: F11.20 - Opioid dependence SNOMED: 56973864 (3) Intractable abdominal pain ICD Codes: R10.9 - Unspecified abdominal pain SNOMED: 37183205, 829322374 (4) COPD (chronic obstructive pulmonary disease) ICD Codes: J44.9 - Chronic obstructive pulmonary disease SNOMED: 60135948 (5) Shortness of breath (6) SOB (shortness of breath) ICD Codes: R06.02 - Shortness of breath SNOMED: 017142112 (7) UTI (urinary tract infection) ICD Codes: N39.0 - Urinary tract infection, site not specified SNOMED: 00622172 (8) Lung mass ICD Codes: R91.8 - Other nonspecific abnormal finding of lung field SNOMED: 513005492 (9) Tachycardia ICD Codes: R00.0 - Tachycardia, unspecified SNOMED: 4316815 Status: unchanged Assessment/Plan ot pt diet pain control sx eval cbc bmp am heme f/u cardio eval, ltach eval prn Subjective Constitutional: Reports: weakness Allergies: Coded Allergies: No Known Allergies (Verified , 05/21/06) All Systems: reviewed and negative except above Subjective 02 mask sleeping Objective Last 24 Hour Vital Signs Date Time Temp Pulse Resp B/P (MAP) Pulse Ox O2 Delivery O2 Flow Rate FiO2 11/28/17 06:48 98 Non-Rebreather 15.0 100 11/28/17 06:48 100 22 98 Non-Rebreather 15.0 100 11/28/17 06:48 Non-Rebreather 15.0 100 11/28/17 04:00 15.0 100 11/28/17 04:00 103 11/28/17 03:01 108 20 95 Non-Rebreather 15.0 100 11/28/17 02:47 100 11/28/17 02:47 108 20 95 Non-Rebreather 15.0 100 11/28/17 00:00 15.0 100 11/28/17 00:00 106 11/28/17 00:00 98.1 104 20 106/64 100 Non-Rebreather 15.0 100 98.1 11/27/17 23:27 108 24 100 Non-Rebreather 15.0 100 11/27/17 23:21 100 11/27/17 23:20 108 24 100 Non-Rebreather 15.0 100 11/27/17 20:00 103 11/27/17 20:00 97.5 109 24 106/64 98 Non-Rebreather 15.0 100 97.5 11/27/17 20:00 15.0 100 11/27/17 19:32 103 24 96 Non-Rebreather 15.0 100 11/27/17 19:25 100 11/27/17 19:24 103 24 96 Non-Rebreather 15.0 100 11/27/17 16:05 112 24 99 Non-Rebreather 15.0 100 11/27/17 16:00 116 11/27/17 16:00 98.4 116 22 108/68 100 Venturi Mask 55 98.4 11/27/17 16:00 40 11/27/17 15:55 111 22 96 Non-Rebreather 15.0 100 11/27/17 13:17 56 22 Non-Rebreather 15.0 100 11/27/17 12:05 98.0 11/27/17 12:00 97.7 59 26 105/67 90 Venturi Mask 55 97.7 11/27/17 12:00 40 11/27/17 11:56 121 11/27/17 11:50 53 22 97 Non-Rebreather 15.0 100 11/27/17 11:40 53 24 90 Venturi Mask 15.0 55 11/27/17 10:02 102.6 102.6 11/27/17 09:44 102.9 11/27/17 08:09 49 22 96 Venturi Mask 14.0 55 11/27/17 08:00 100.0 125 26 108/65 92 Venturi Mask 55 100.0 11/27/17 08:00 55 11/27/17 08:00 127 11/27/17 07:59 48 22 93 Venturi Mask 15.0 55 Intake and Output 11/27/17 11/28/17 19:00 07:00 Intake Total 1438.300 ml 700 ml Balance 1438.300 ml 700 ml IV Total 1438.300 ml 700 ml # Voids 1 Laboratory Tests 11/28/17 03:40: White Blood Count 16.3H, Red Blood Count 4.03L, Hemoglobin 11.3L, Hematocrit 36.9L, Mean Corpuscular Volume 91, Mean Corpuscular Hemoglobin 28.0, Mean Corpuscular Hemoglobin Concent 30.6L, Red Cell Distribution Width 15.2H, Platelet Count 70L, Mean Platelet Volume 9.4, Neutrophils (%) (Auto) , Lymphocytes (%) (Auto) , Monocytes (%) (Auto) , Eosinophils (%) (Auto) , Basophils (%) (Auto) , Neutrophils % (Manual) [Pending], Lymphocytes % (Manual) [Pending], Platelet Estimate [Pending], Platelet Morphology [Pending], Sodium Level 160H, Potassium Level 3.6, Chloride Level 120H, Carbon Dioxide Level 30, Anion Gap 10, Blood Urea Nitrogen 73H, Creatinine 2.0H, Estimat Glomerular Filtration Rate 30.4, Glucose Level 130H, Calcium Level 9.2 Height (Feet): 5 Height (Inches): 6.00 Weight (Pounds): 129 General Appearance: lethargic EENT: normal ENT inspection Neck: supple Cardiovascular: normal peripheral pulses, normal rate, regular rhythm Respiratory/Chest: chest wall non-tender, decreased breath sounds Abdomen: normal bowel sounds, non tender, soft Extremities: normal inspection Edema: no edema noted Arm (L), no edema noted Arm (R), no edema noted Leg (L), no edema noted Leg (R), no edema noted Pedal (L), no edema noted Pedal (R), no edema noted Generalized Neurologic: motor weakness Skin: normal pigmentation, warm/dry BAYRON BENEDICT November 28, 2017 07:00
[2017-11-28 08:00] VITALS: BP 103/68
[2017-11-28] MEDS: Meropenem 1 GM in NS 55 ML IVPB SCH ×2 (09:54→21:27)
--- NOTE | 2017-11-28 10:06 | Pulmonology Progress Note ---
Assessment/Plan Assessment/Plan ASSESSMENT Stage IV metastatic CA ( with left lung mass, liver masses, lymphadenopathy) Intractable abdominal pain ( due to above) Malignant pleural effusion, status post thoracentesis Acute hypoxemic respiratory failure , requiring BiPAP Acute renal failure-worse Hypernatremia Thrombocytopenia Anemia of underlying malignancy Multiorgan failure COPD/asthma Sinus tachycardia Chronic pain syndrome ( has pain pump) History of smoking History of CVA Seizure disorder Crohn's disease PLAN OF CARE GABRIEL status IV fluids, changed to D5W due to hypernatremia closely monitor renal parameters and electrolytes, ARF worse correct electrolytes as needed. avoided nephrotoxics deteriorating on 100% NRM, titrate as needed to keep pulse oximetry above 92% pulmonary toilet DNR/DNI status since 11/24/17 ID follows, leukocytosis probably secondary to malignancy on antibiotic - Zosyn cardio follows; Echo with preserved EF, no evidence of A. fib on tele off heparin secondary to thrombocytopenia , SCD (venous duplex bilateral lower extremity negative) seizure precautions, continue Keppra pain management supportive care overall prognosis poor rapidly deteriorating family desires comfort measures case discussed and evaluated by supervising physician Subjective Allergies: Coded Allergies: No Known Allergies (Verified , 05/21/06) Subjective condition worsening currently on 100% NRM worsening renal parameters, persistent leukocytosis poorly but still responsive to verbal stimuli Objective Last 24 Hour Vital Signs Date Time Temp Pulse Resp B/P (MAP) Pulse Ox O2 Delivery O2 Flow Rate FiO2 11/28/17 07:45 94 11/28/17 06:59 102 22 98 Non-Rebreather 15.0 100 11/28/17 06:48 98 Non-Rebreather 15.0 100 11/28/17 06:48 100 22 98 Non-Rebreather 15.0 100 11/28/17 06:48 Non-Rebreather 15.0 100 11/28/17 04:00 97.7 105 20 116/73 97 Non-Rebreather 15.0 97.7 11/28/17 04:00 15.0 100 11/28/17 04:00 103 11/28/17 03:01 108 20 95 Non-Rebreather 15.0 100 11/28/17 02:47 100 11/28/17 02:47 108 20 95 Non-Rebreather 15.0 100 11/28/17 00:00 15.0 100 11/28/17 00:00 106 11/28/17 00:00 98.1 104 20 106/64 100 Non-Rebreather 15.0 100 98.1 11/27/17 23:27 108 24 100 Non-Rebreather 15.0 100 11/27/17 23:21 100 11/27/17 23:20 108 24 100 Non-Rebreather 15.0 100 11/27/17 20:00 103 11/27/17 20:00 97.5 109 24 106/64 98 Non-Rebreather 15.0 100 97.5 11/27/17 20:00 15.0 100 11/27/17 19:32 103 24 96 Non-Rebreather 15.0 100 11/27/17 19:25 100 11/27/17 19:24 103 24 96 Non-Rebreather 15.0 100 11/27/17 16:05 112 24 99 Non-Rebreather 15.0 100 11/27/17 16:00 116 11/27/17 16:00 98.4 116 22 108/68 100 Venturi Mask 55 98.4 11/27/17 16:00 15.0 11/27/17 15:55 111 22 96 Non-Rebreather 15.0 100 11/27/17 13:17 56 22 Non-Rebreather 15.0 100 11/27/17 12:05 98.0 11/27/17 12:00 97.7 59 26 105/67 90 Venturi Mask 55 97.7 11/27/17 12:00 15.0 11/27/17 11:56 121 11/27/17 11:50 53 22 97 Non-Rebreather 15.0 100 11/27/17 11:40 53 24 90 Venturi Mask 15.0 55 Intake and Output 11/27/17 11/28/17 19:00 07:00 Intake Total 1438.300 ml 700 ml Balance 1438.300 ml 700 ml IV Total 1438.300 ml 700 ml # Voids 1 2 Objective General Appearance: mild distress HEENT: normocephalic, atraumatic, 100% NRM Respiratory/Chest: decreased breath sounds Cardiovascular: regular rhythm, tachycardia - 120 th, PICC Abdomen: soft, non tender, non distended, Neurologic/Psychiatric: bedridden, poorly but still responsive to verbal stimuli Microbiology Date/Time Source Procedure Growth Status 5/5/18 04:00 Blood Blood Culture - Preliminary NO GROWTH AFTER 24 HOURS Resulted 11/26/17 15:30 Blood Blood Culture - Preliminary NO GROWTH AFTER 24 HOURS Resulted Laboratory Tests 11/28/17 03:40: White Blood Count 16.3H, Red Blood Count 4.03L, Hemoglobin 11.3L, Hematocrit 36.9L, Mean Corpuscular Volume 91, Mean Corpuscular Hemoglobin 28.0, Mean Corpuscular Hemoglobin Concent 30.6L, Red Cell Distribution Width 15.2H, Platelet Count 70L, Mean Platelet Volume 9.4, Neutrophils (%) (Auto) , Lymphocytes (%) (Auto) , Monocytes (%) (Auto) , Eosinophils (%) (Auto) , Basophils (%) (Auto) , Differential Total Cells Counted 100, Neutrophils % ( Manual) 83H, Lymphocytes % (Manual) 12L, Monocytes % (Manual) 1, Eosinophils % ( Manual) 1, Basophils % (Manual) 0, Band Neutrophils 3, Platelet Estimate DecreasedL, Platelet Morphology Normal, Hypochromasia 1+, Anisocytosis 1+, Sodium Level 160H, Potassium Level 3.6, Chloride Level 120H, Carbon Dioxide Level 30, Anion Gap 10, Blood Urea Nitrogen 73H, Creatinine 2.0H, Estimat Glomerular Filtration Rate 30.4, Glucose Level 130H, Calcium Level 9.2 Current Medications Medications (Trade) Dose Ordered Sig/Vaibhav Route PRN Reason Start Time Stop Time Status Last Admin Dose Admin Acetaminophen (Tylenol) 650 mg Q4H PRN ORAL fever (temp>100.5F) 11/25/17 13:30 12/11/17 13:29 11/26/17 06:22 Acetaminophen (Tylenol) 650 mg Q4H PRN RECTAL Mild Pain (Pain Scale 1-3) 11/27/17 00:00 12/27/17 00:00 11/27/17 09:44 Acetaminophen/ Hydrocodone Bitart ([place] 10/) 1 tab Q4H PRN ORAL Moderate Pain (Pain Scale 4-6) 11/26/17 09:30 12/03/17 09:29 Chlorhexidine Gluconate (Leah-Hex 2%) 1 applic DAILY@2000 TOPIC 11/28/17 20:00 12/28/17 19:59 Dextrose 1,000 ml @ 100 mls/hr Q10H IV 11/27/17 10:00 12/27/17 09:59 11/28/17 06:02 Dextrose (Dextrose 50%) 50 ml STAT PRN IV Hypoglycemia BS<60mg/dL 11/25/17 13:30 12/25/17 13:29 Levalbuterol HCl (Xopenex) 0.625 mg Q4HRT HHN 11/27/17 11:00 11/29/17 10:59 11/28/17 06:48 Levetiracetam (Keppra) 1,000 mg EVERY 8 HOURS ORAL 11/26/17 09:00 12/26/17 08:59 Levothyroxine Sodium (Synthroid) 75 mcg ACBREAKFAST ORAL 11/26/17 06:30 12/12/17 06:29 11/26/17 06:21 Meropenem 1 gm/ Sodium Chloride 55 ml @ 110 mls/hr Q12HR IVPB 11/27/17 21:00 12/02/17 20:59 11/28/17 09:54 Nitroglycerin (Ntg) 0.4 mg Q5M X 3 DOSES PRN SL Prn Chest Pain 11/25/17 12:15 12/11/17 10:59 11/26/17 01:53 Ondansetron HCl (Zofran) 4 mg Q6H PRN IVP Nausea & Vomiting 11/25/17 14:30 12/11/17 20:29 11/26/17 00:40 Vancomycin HCl (Vanco rx to dose) 1 ea DAILY PRN MISC Per rx protocol 11/27/17 11:45 12/27/17 11:44 Vancomycin/Sodium Chloride 250 ml @ 166.667 mls/hr Q24H IVPB 11/28/17 13:00 12/03/17 12:59 Keon (Valerie)Gwendolyn NP November 28, 2017 10:06
[2017-11-28] MEDS ORDERED: Tubing IV Secondary IV ONE (10:27)
--- NOTE | 2017-11-28 10:33 | General Progress Note ---
Assessment/Plan Status: stable, not improved Assessment/Plan IMPRESSION/RECS: #. Stage IV malignancy, potentially lung cancer given pattern of spread, proven malignancy on pleural fluid. Has a left lower lobe lung mass. Left inferior hilar mass. Left pleural base lung mass. Left pleural effusion. Retroperitoneal lymphadenopathy. Multiple low-attenuation liver lesions. --> Discussed with FEDERICO plummer, Primary MD, given poor performance status recommend palliative/hospice care --> Do not recommend any further diagnosis/tissue given poor state, is not a chemotherapy candidate #. Anemia due to underlying malignancy - continue to closely monitor --> hgb goal is >7. Transfuse if needed. #. Crohn disease. #. Opioid dependence. #. Chronic obstructive pulmonary disease. #. History of smoking. #. Emphysema. #. Perianal abscess. #. Intractable abdominal pain. #. Status post morphine pump placement. #. Status post exploratory laparotomy. #. Pneumoperitoneum. #. Tachycardia. Subjective Date patient seen: November 26, 2017 Allergies: Coded Allergies: No Known Allergies (Verified , 05/21/06) All Systems: reviewed and negative except above Subjective Patient is awake and stable. In no acute medical distress Objective Last 24 Hour Vital Signs Date Time Temp Pulse Resp B/P (MAP) Pulse Ox O2 Delivery O2 Flow Rate FiO2 11/28/17 10:16 97 18 98 Non-Rebreather 15.0 100 11/28/17 10:07 98 20 99 Non-Rebreather 15.0 100 11/28/17 08:00 15.0 11/28/17 08:00 97.3 92 16 103/68 98 Non-Rebreather 15.0 97.3 11/28/17 07:45 94 11/28/17 06:59 102 22 98 Non-Rebreather 15.0 100 11/28/17 06:48 98 Non-Rebreather 15.0 100 11/28/17 06:48 100 22 98 Non-Rebreather 15.0 100 11/28/17 06:48 Non-Rebreather 15.0 100 11/28/17 04:00 97.7 105 20 116/73 97 Non-Rebreather 15.0 97.7 11/28/17 04:00 15.0 100 11/28/17 04:00 103 11/28/17 03:01 108 20 95 Non-Rebreather 15.0 100 11/28/17 02:47 100 11/28/17 02:47 108 20 95 Non-Rebreather 15.0 100 11/28/17 00:00 15.0 100 11/28/17 00:00 106 11/28/17 00:00 98.1 104 20 106/64 100 Non-Rebreather 15.0 100 98.1 11/27/17 23:27 108 24 100 Non-Rebreather 15.0 100 11/27/17 23:21 100 11/27/17 23:20 108 24 100 Non-Rebreather 15.0 100 11/27/17 20:00 103 11/27/17 20:00 97.5 109 24 106/64 98 Non-Rebreather 15.0 100 97.5 11/27/17 20:00 15.0 100 11/27/17 19:32 103 24 96 Non-Rebreather 15.0 100 11/27/17 19:25 100 11/27/17 19:24 103 24 96 Non-Rebreather 15.0 100 11/27/17 16:05 112 24 99 Non-Rebreather 15.0 100 11/27/17 16:00 116 11/27/17 16:00 98.4 116 22 108/68 100 Venturi Mask 55 98.4 11/27/17 16:00 15.0 11/27/17 15:55 111 22 96 Non-Rebreather 15.0 100 11/27/17 13:17 56 22 Non-Rebreather 15.0 100 11/27/17 12:05 98.0 11/27/17 12:00 97.7 59 26 105/67 90 Venturi Mask 55 97.7 11/27/17 12:00 15.0 11/27/17 11:56 121 11/27/17 11:50 53 22 97 Non-Rebreather 15.0 100 11/27/17 11:40 53 24 90 Venturi Mask 15.0 55 Last 24 Hour Vital Signs Date Time Temp Pulse Resp B/P (MAP) Pulse Ox O2 Delivery O2 Flow Rate FiO2 11/28/17 10:16 97 18 98 Non-Rebreather 15.0 100 11/28/17 10:07 98 20 99 Non-Rebreather 15.0 100 11/28/17 08:00 15.0 11/28/17 08:00 97.3 92 16 103/68 98 Non-Rebreather 15.0 97.3 11/28/17 07:45 94 11/28/17 06:59 102 22 98 Non-Rebreather 15.0 100 11/28/17 06:48 98 Non-Rebreather 15.0 100 11/28/17 06:48 100 22 98 Non-Rebreather 15.0 100 11/28/17 06:48 Non-Rebreather 15.0 100 11/28/17 04:00 97.7 105 20 116/73 97 Non-Rebreather 15.0 97.7 11/28/17 04:00 15.0 100 11/28/17 04:00 103 11/28/17 03:01 108 20 95 Non-Rebreather 15.0 100 11/28/17 02:47 100 11/28/17 02:47 108 20 95 Non-Rebreather 15.0 100 11/28/17 00:00 15.0 100 11/28/17 00:00 106 11/28/17 00:00 98.1 104 20 106/64 100 Non-Rebreather 15.0 100 98.1 11/27/17 23:27 108 24 100 Non-Rebreather 15.0 100 11/27/17 23:21 100 11/27/17 23:20 108 24 100 Non-Rebreather 15.0 100 11/27/17 20:00 103 11/27/17 20:00 97.5 109 24 106/64 98 Non-Rebreather 15.0 100 97.5 11/27/17 20:00 15.0 100 11/27/17 19:32 103 24 96 Non-Rebreather 15.0 100 11/27/17 19:25 100 11/27/17 19:24 103 24 96 Non-Rebreather 15.0 100 11/27/17 16:05 112 24 99 Non-Rebreather 15.0 100 11/27/17 16:00 116 11/27/17 16:00 98.4 116 22 108/68 100 Venturi Mask 55 98.4 11/27/17 16:00 15.0 11/27/17 15:55 111 22 96 Non-Rebreather 15.0 100 11/27/17 13:17 56 22 Non-Rebreather 15.0 100 11/27/17 12:05 98.0 11/27/17 12:00 97.7 59 26 105/67 90 Venturi Mask 55 97.7 11/27/17 12:00 15.0 11/27/17 11:56 121 11/27/17 11:50 53 22 97 Non-Rebreather 15.0 100 11/27/17 11:40 53 24 90 Venturi Mask 15.0 55 Intake and Output 11/27/17 11/28/17 19:00 07:00 Intake Total 1438.300 ml 700 ml Balance 1438.300 ml 700 ml IV Total 1438.300 ml 700 ml # Voids 1 2 Laboratory Tests 11/28/17 03:40: White Blood Count 16.3H, Red Blood Count 4.03L, Hemoglobin 11.3L, Hematocrit 36.9L, Mean Corpuscular Volume 91, Mean Corpuscular Hemoglobin 28.0, Mean Corpuscular Hemoglobin Concent 30.6L, Red Cell Distribution Width 15.2H, Platelet Count 70L, Mean Platelet Volume 9.4, Neutrophils (%) (Auto) , Lymphocytes (%) (Auto) , Monocytes (%) (Auto) , Eosinophils (%) (Auto) , Basophils (%) (Auto) , Differential Total Cells Counted 100, Neutrophils % ( Manual) 83H, Lymphocytes % (Manual) 12L, Monocytes % (Manual) 1, Eosinophils % ( Manual) 1, Basophils % (Manual) 0, Band Neutrophils 3, Platelet Estimate DecreasedL, Platelet Morphology Normal, Hypochromasia 1+, Anisocytosis 1+, Sodium Level 160H, Potassium Level 3.6, Chloride Level 120H, Carbon Dioxide Level 30, Anion Gap 10, Blood Urea Nitrogen 73H, Creatinine 2.0H, Estimat Glomerular Filtration Rate 30.4, Glucose Level 130H, Calcium Level 9.2 Height (Feet): 5 Height (Inches): 6.00 Weight (Pounds): 129 General Appearance: no apparent distress Connor Bains MD November 28, 2017 10:32
--- NOTE | 2017-11-28 10:35 | General Progress Note ---
Assessment/Plan Assessment/Plan IMPRESSION/RECS: #. Stage IV malignancy, potentially lung cancer given pattern of spread, proven malignancy on pleural fluid. Has a left lower lobe lung mass. Left inferior hilar mass. Left pleural base lung mass. Left pleural effusion. Retroperitoneal lymphadenopathy. Multiple low-attenuation liver lesions. --> Discussed with elian RN, Primary MD, given poor performance status recommend palliative/hospice care --> Do not recommend any further diagnosis/tissue given poor state, is not a chemotherapy candidate #. Anemia due to underlying malignancy - continue to closely monitor --> hgb goal is >7. Transfuse if needed. #. Crohn disease. #. Opioid dependence. #. Chronic obstructive pulmonary disease. #. History of smoking. #. Emphysema. #. Perianal abscess. #. Intractable abdominal pain. #. Status post morphine pump placement. #. Status post exploratory laparotomy. #. Pneumoperitoneum. #. Tachycardia. Subjective Date patient seen: November 27, 2017 Constitutional: Reports: fever HEENT: Reports: no symptoms Respiratory: Reports: shortness of breath Allergies: Coded Allergies: No Known Allergies (Verified , 05/21/06) Subjective Patient is lethargic and tachycardic Objective Last 24 Hour Vital Signs Date Time Temp Pulse Resp B/P (MAP) Pulse Ox O2 Delivery O2 Flow Rate FiO2 11/28/17 10:16 97 18 98 Non-Rebreather 15.0 100 11/28/17 10:07 98 20 99 Non-Rebreather 15.0 100 11/28/17 08:00 15.0 11/28/17 08:00 97.3 92 16 103/68 98 Non-Rebreather 15.0 97.3 11/28/17 07:45 94 11/28/17 06:59 102 22 98 Non-Rebreather 15.0 100 11/28/17 06:48 98 Non-Rebreather 15.0 100 11/28/17 06:48 100 22 98 Non-Rebreather 15.0 100 11/28/17 06:48 Non-Rebreather 15.0 100 11/28/17 04:00 97.7 105 20 116/73 97 Non-Rebreather 15.0 97.7 11/28/17 04:00 15.0 100 11/28/17 04:00 103 11/28/17 03:01 108 20 95 Non-Rebreather 15.0 100 11/28/17 02:47 100 11/28/17 02:47 108 20 95 Non-Rebreather 15.0 100 11/28/17 00:00 15.0 100 11/28/17 00:00 106 11/28/17 00:00 98.1 104 20 106/64 100 Non-Rebreather 15.0 100 98.1 11/27/17 23:27 108 24 100 Non-Rebreather 15.0 100 11/27/17 23:21 100 11/27/17 23:20 108 24 100 Non-Rebreather 15.0 100 11/27/17 20:00 103 11/27/17 20:00 97.5 109 24 106/64 98 Non-Rebreather 15.0 100 97.5 11/27/17 20:00 15.0 100 11/27/17 19:32 103 24 96 Non-Rebreather 15.0 100 11/27/17 19:25 100 11/27/17 19:24 103 24 96 Non-Rebreather 15.0 100 11/27/17 16:05 112 24 99 Non-Rebreather 15.0 100 11/27/17 16:00 116 11/27/17 16:00 98.4 116 22 108/68 100 Venturi Mask 55 98.4 11/27/17 16:00 15.0 11/27/17 15:55 111 22 96 Non-Rebreather 15.0 100 11/27/17 13:17 56 22 Non-Rebreather 15.0 100 11/27/17 12:05 98.0 11/27/17 12:00 97.7 59 26 105/67 90 Venturi Mask 55 97.7 11/27/17 12:00 15.0 11/27/17 11:56 121 11/27/17 11:50 53 22 97 Non-Rebreather 15.0 100 11/27/17 11:40 53 24 90 Venturi Mask 15.0 55 Intake and Output 11/27/17 11/28/17 19:00 07:00 Intake Total 1438.300 ml 700 ml Balance 1438.300 ml 700 ml IV Total 1438.300 ml 700 ml # Voids 1 2 Laboratory Tests 11/28/17 03:40: White Blood Count 16.3H, Red Blood Count 4.03L, Hemoglobin 11.3L, Hematocrit 36.9L, Mean Corpuscular Volume 91, Mean Corpuscular Hemoglobin 28.0, Mean Corpuscular Hemoglobin Concent 30.6L, Red Cell Distribution Width 15.2H, Platelet Count 70L, Mean Platelet Volume 9.4, Neutrophils (%) (Auto) , Lymphocytes (%) (Auto) , Monocytes (%) (Auto) , Eosinophils (%) (Auto) , Basophils (%) (Auto) , Differential Total Cells Counted 100, Neutrophils % ( Manual) 83H, Lymphocytes % (Manual) 12L, Monocytes % (Manual) 1, Eosinophils % ( Manual) 1, Basophils % (Manual) 0, Band Neutrophils 3, Platelet Estimate DecreasedL, Platelet Morphology Normal, Hypochromasia 1+, Anisocytosis 1+, Sodium Level 160H, Potassium Level 3.6, Chloride Level 120H, Carbon Dioxide Level 30, Anion Gap 10, Blood Urea Nitrogen 73H, Creatinine 2.0H, Estimat Glomerular Filtration Rate 30.4, Glucose Level 130H, Calcium Level 9.2 Height (Feet): 5 Height (Inches): 6.00 Weight (Pounds): 129 General Appearance: lethargic EENT: PERRL/EOMI Neck: supple Cardiovascular: tachycardia Connor Bains MD November 28, 2017 10:35
--- NOTE | 2017-11-28 11:08 | General Progress Note ---
Assessment/Plan Assessment/Plan (1) Chronic abdominal pain (2) Chronic pancreatitis (3) Crohn's disease (4) Herniated nucleus pulposus, lumbar (5) Lumbar spondylosis (6) Radiculopathy of lumbar region (7) Lung mass Pt will be continued on [place] and pt has intrathecal pump. HOLD OPIOIDS FOR OVERSEDATION OR SBP<90 OR DBP<60 OR O2SAT<92% OR RR<12 Pt was d/w Dr. Malhotra and he concurred. Subjective Date patient seen: November 28, 2017 Time patient seen: 10:00 - am ROS Limited/Unobtainable: Yes Allergies: Coded Allergies: No Known Allergies (Verified , 05/21/06) Subjective Family at bed side. Face mask applied. No signs of distress or pain. Objective Last 24 Hour Vital Signs Date Time Temp Pulse Resp B/P (MAP) Pulse Ox O2 Delivery O2 Flow Rate FiO2 11/28/17 10:16 97 18 98 Non-Rebreather 15.0 100 11/28/17 10:07 98 20 99 Non-Rebreather 15.0 100 11/28/17 08:00 15.0 11/28/17 08:00 97.3 92 16 103/68 98 Non-Rebreather 15.0 97.3 11/28/17 07:45 94 11/28/17 06:59 102 22 98 Non-Rebreather 15.0 100 11/28/17 06:48 98 Non-Rebreather 15.0 100 11/28/17 06:48 100 22 98 Non-Rebreather 15.0 100 11/28/17 06:48 Non-Rebreather 15.0 100 11/28/17 04:00 97.7 105 20 116/73 97 Non-Rebreather 15.0 97.7 11/28/17 04:00 15.0 100 11/28/17 04:00 103 11/28/17 03:01 108 20 95 Non-Rebreather 15.0 100 11/28/17 02:47 100 11/28/17 02:47 108 20 95 Non-Rebreather 15.0 100 11/28/17 00:00 15.0 100 11/28/17 00:00 106 11/28/17 00:00 98.1 104 20 106/64 100 Non-Rebreather 15.0 100 98.1 11/27/17 23:27 108 24 100 Non-Rebreather 15.0 100 11/27/17 23:21 100 11/27/17 23:20 108 24 100 Non-Rebreather 15.0 100 11/27/17 20:00 103 11/27/17 20:00 97.5 109 24 106/64 98 Non-Rebreather 15.0 100 97.5 11/27/17 20:00 15.0 100 11/27/17 19:32 103 24 96 Non-Rebreather 15.0 100 11/27/17 19:25 100 11/27/17 19:24 103 24 96 Non-Rebreather 15.0 100 11/27/17 16:05 112 24 99 Non-Rebreather 15.0 100 11/27/17 16:00 116 11/27/17 16:00 98.4 116 22 108/68 100 Venturi Mask 55 98.4 11/27/17 16:00 15.0 11/27/17 15:55 111 22 96 Non-Rebreather 15.0 100 11/27/17 13:17 56 22 Non-Rebreather 15.0 100 11/27/17 12:05 98.0 11/27/17 12:00 97.7 59 26 105/67 90 Venturi Mask 55 97.7 11/27/17 12:00 15.0 11/27/17 11:56 121 11/27/17 11:50 53 22 97 Non-Rebreather 15.0 100 11/27/17 11:40 53 24 90 Venturi Mask 15.0 55 Intake and Output 11/27/17 11/28/17 19:00 07:00 Intake Total 1438.300 ml 700 ml Balance 1438.300 ml 700 ml IV Total 1438.300 ml 700 ml # Voids 1 2 Laboratory Tests 11/28/17 03:40: White Blood Count 16.3H, Red Blood Count 4.03L, Hemoglobin 11.3L, Hematocrit 36.9L, Mean Corpuscular Volume 91, Mean Corpuscular Hemoglobin 28.0, Mean Corpuscular Hemoglobin Concent 30.6L, Red Cell Distribution Width 15.2H, Platelet Count 70L, Mean Platelet Volume 9.4, Neutrophils (%) (Auto) , Lymphocytes (%) (Auto) , Monocytes (%) (Auto) , Eosinophils (%) (Auto) , Basophils (%) (Auto) , Differential Total Cells Counted 100, Neutrophils % ( Manual) 83H, Lymphocytes % (Manual) 12L, Monocytes % (Manual) 1, Eosinophils % ( Manual) 1, Basophils % (Manual) 0, Band Neutrophils 3, Platelet Estimate DecreasedL, Platelet Morphology Normal, Hypochromasia 1+, Anisocytosis 1+, Sodium Level 160H, Potassium Level 3.6, Chloride Level 120H, Carbon Dioxide Level 30, Anion Gap 10, Blood Urea Nitrogen 73H, Creatinine 2.0H, Estimat Glomerular Filtration Rate 30.4, Glucose Level 130H, Calcium Level 9.2 Height (Feet): 5 Height (Inches): 6.00 Weight (Pounds): 129 Objective General Appearance: on Bipap Neck: normal alignment, supple Cardiovascular: tachycardic Respiratory/Chest: decreased breath sounds Abdomen: tender, distended, intrathecal pump palpated Extremities: non-tender Edema: no edema noted JOSE ARREDONDO November 28, 2017 11:08
[2017-11-28 12:00] VITALS: BP 103/67
[2017-11-28] MEDS: Vancomycin 750mg/NS 250ml IVPB SCH (13:18)
--- NOTE | 2017-11-28 14:18 | Cardiac Electrophysiology PN ---
Assessment/Plan Assessment/Plan 1. Sinus tachycardia with no evidence of fib or SVT due to pain and respiratory failure. Echocardiogram showed EF 65%. On iv Abx 2. Malignant pleural effusion and metastatic cancer. Follow up Dr. Wagner. S/p Left Thoracentesis on 11/12/17 Morphine pump in abdomen. On BIPAP 3. Lung mass. 4. Crohn disease and history of exploratory laparotomy, under management of Dr. Gallegos. 5. Ascites paracentesis with cytology and per Dr. Bains. 6. DNR and DNI DW RN Subjective Subjective On BIPAP on [place] in sinus tach 120s. Family at bedside. DNR and lethargic Objective Last 24 Hour Vital Signs Date Time Temp Pulse Resp B/P (MAP) Pulse Ox O2 Delivery O2 Flow Rate FiO2 11/28/17 12:00 98.7 92 18 103/67 100 Non-Rebreather 15.0 98.7 11/28/17 12:00 15.0 11/28/17 11:47 102 11/28/17 10:16 97 18 98 Non-Rebreather 15.0 100 11/28/17 10:07 98 20 99 Non-Rebreather 15.0 100 11/28/17 08:00 15.0 11/28/17 08:00 97.3 92 16 103/68 98 Non-Rebreather 15.0 97.3 11/28/17 07:45 94 11/28/17 06:59 102 22 98 Non-Rebreather 15.0 100 11/28/17 06:48 98 Non-Rebreather 15.0 100 11/28/17 06:48 100 22 98 Non-Rebreather 15.0 100 11/28/17 06:48 Non-Rebreather 15.0 100 11/28/17 04:00 97.7 105 20 116/73 97 Non-Rebreather 15.0 97.7 11/28/17 04:00 15.0 100 11/28/17 04:00 103 11/28/17 03:01 108 20 95 Non-Rebreather 15.0 100 11/28/17 02:47 100 11/28/17 02:47 108 20 95 Non-Rebreather 15.0 100 11/28/17 00:00 15.0 100 11/28/17 00:00 106 11/28/17 00:00 98.1 104 20 106/64 100 Non-Rebreather 15.0 100 98.1 11/27/17 23:27 108 24 100 Non-Rebreather 15.0 100 11/27/17 23:21 100 11/27/17 23:20 108 24 100 Non-Rebreather 15.0 100 11/27/17 20:00 103 11/27/17 20:00 97.5 109 24 106/64 98 Non-Rebreather 15.0 100 97.5 11/27/17 20:00 15.0 100 11/27/17 19:32 103 24 96 Non-Rebreather 15.0 100 11/27/17 19:25 100 11/27/17 19:24 103 24 96 Non-Rebreather 15.0 100 11/27/17 16:05 112 24 99 Non-Rebreather 15.0 100 11/27/17 16:00 116 11/27/17 16:00 98.4 116 22 108/68 100 Venturi Mask 55 98.4 11/27/17 16:00 15.0 11/27/17 15:55 111 22 96 Non-Rebreather 15.0 100 Intake and Output 11/27/17 11/28/17 19:00 07:00 Intake Total 1438.300 ml 700 ml Balance 1438.300 ml 700 ml IV Total 1438.300 ml 700 ml # Voids 1 2 Laboratory Tests Test 11/28/17 03:40 White Blood Count 16.3 K/UL (4.8-10.8) H Red Blood Count 4.03 M/UL (4.20-5.40) L Hemoglobin 11.3 G/DL (12.0-16.0) L Hematocrit 36.9 % (37.0-47.0) L Mean Corpuscular Volume 91 FL (80-99) Mean Corpuscular Hemoglobin 28.0 PG (27.0-31.0) Mean Corpuscular Hemoglobin Concent 30.6 G/DL (32.0-36.0) L Red Cell Distribution Width 15.2 % (11.6-14.8) H Platelet Count 70 K/UL (150-450) L Mean Platelet Volume 9.4 FL (6.5-10.1) Neutrophils (%) (Auto) % (45.0-75.0) Lymphocytes (%) (Auto) % (20.0-45.0) Monocytes (%) (Auto) % (1.0-10.0) Eosinophils (%) (Auto) % (0.0-3.0) Basophils (%) (Auto) % (0.0-2.0) Differential Total Cells Counted 100 Neutrophils % (Manual) 83 % (45-75) H Lymphocytes % (Manual) 12 % (20-45) L Monocytes % (Manual) 1 % (1-10) Eosinophils % (Manual) 1 % (0-3) Basophils % (Manual) 0 % (0-2) Band Neutrophils 3 % (0-8) Platelet Estimate Decreased L Platelet Morphology Normal Hypochromasia 1+ Anisocytosis 1+ Sodium Level 160 MMOL/L (136-145) H Potassium Level 3.6 MMOL/L (3.5-5.1) Chloride Level 120 MMOL/L (98-107) H Carbon Dioxide Level 30 MMOL/L (21-32) Anion Gap 10 mmol/L (5-15) Blood Urea Nitrogen 73 mg/dL (7-18) H Creatinine 2.0 MG/DL (0.55-1.30) H Estimat Glomerular Filtration Rate 30.4 mL/min (>60) Glucose Level 130 MG/DL (74-106) H Calcium Level 9.2 MG/DL (8.5-10.1) Microbiology Date/Time Source Procedure Growth Status 11/27/17 04:00 Blood Blood Culture - Preliminary Resulted 11/26/17 15:30 Blood Blood Culture - Preliminary Resulted Objective HEAD AND NECK: BIPAP on LUNGS: Coarse rhonchi. CARDIOVASCULAR: Tachy S1 and S2 ABDOMEN: Tender with a pump under skin. EXTREMITIES: No pitting edema. Pk Dutta MD November 28, 2017 14:18
[2017-11-28 16:00] VITALS: BP 98/64
--- NOTE | 2017-11-28 16:00 | Progress Note ---
DATE: 11/28/2017 SUBJECTIVE: This is a 66-year-old female patient with abdominal pain. She continues to have altered mental status, high levels of anxiety, and mood lability and is causing her to have decline in cognition. That is why, her attending has requested daily psychiatric consultation to reduce anxiety and mood lability. MENTAL STATUS EXAMINATION: This is a 66-year-old female. Disheveled. Attitude, irritable and agitated. Affect, guarded and restricted. Intellect poor. Mood depressed, anxious. Motor activity, psychomotor agitation. Attention span is poor. Orientation x2. Speech is pressured. Thought process, disorganized and illogical. Thought content, no auditory hallucinations or paranoid delusions. Insight and judgment is poor. DIAGNOSIS: Bipolar 2 disorder. PLAN: Continue her on Neurontin. Continue managing her anxiety. Encouraged her to interact appropriately with staff and other patients. 18 to 20 minutes of supportive psychotherapy provided. Chart reviewed. Discussed with staff. The patient was seen and assessed at bedside. Mena Goncalves M.D. DR: MIKHAIL JOB#: [id number] CC:
--- NOTE | 2017-11-28 18:28 | General Progress Note ---
Assessment/Plan Assessment/Plan IMPRESSION/RECS: #. Stage IV malignancy, potentially lung cancer given pattern of spread, proven malignancy on pleural fluid. --> Has a left lower lobe lung mass. Left inferior hilar mass. Left pleural base lung mass. Left pleural effusion. --> Retroperitoneal lymphadenopathy. Multiple low-attenuation liver lesions. --> Discussed with son, RN, Primary MD, given poor performance status recommend palliative/hospice care --> Do not recommend any further diagnosis/tissue given poor state, is not a chemotherapy candidate #. Anemia due to underlying malignancy - continue to closely monitor --> hgb goal is >7. Transfuse if needed. --> Hemoglobin stable at this time. #. Crohn disease. #. Opioid dependence. #. Chronic obstructive pulmonary disease. #. History of smoking. #. Emphysema. #. Perianal abscess. #. Intractable abdominal pain. #. Status post morphine pump placement. #. Status post exploratory laparotomy. #. Pneumoperitoneum. #. Tachycardia. Subjective Date patient seen: November 28, 2017 Constitutional: Denies: no symptoms, chills, diaphoresis, fever, malaise, weakness, other HEENT: Denies: no symptoms, eye pain, blurred vision, tearing, double vision, ear pain, ear discharge, nose pain, nose congestion, throat pain, throat swelling, mouth pain, mouth swelling, other Cardiovascular: Denies: no symptoms, chest pain, edema, irregular heart rate, lightheadedness, palpitations, syncope, other Respiratory: Denies: no symptoms, cough, orthopnea, shortness of breath, SOB with excertion, SOB at rest, sputum, stridor, wheezing, other Gastrointestinal/Abdominal: Denies: no symptoms, abdomen distended, abdominal pain, black stools, tarry stools, blood in stool, constipated, diarrhea, difficulty swallowing, nausea, poor appetite, poor fluid intake, rectal bleeding , vomiting, other Genitourinary: Denies: no symptoms, burning, discharge, frequency, flank pain, hematuria, incontinence, pain, urgency, other Neurologic/Psychiatric: Denies: no symptoms, anxiety, depressed, emotional problems, headache, numbness, paresthesia, pre-existing deficit, seizure, tingling, tremors, weakness, other Allergies: Coded Allergies: No Known Allergies (Verified , 05/21/06) Subjective Patient is lethargic and tachycardic. With face mask. On pain control. Objective Last 24 Hour Vital Signs Date Time Temp Pulse Resp B/P (MAP) Pulse Ox O2 Delivery O2 Flow Rate FiO2 11/28/17 16:00 15.0 11/28/17 16:00 97.9 90 14 98/64 98 Non-Rebreather 15.0 97.9 11/28/17 16:00 91 11/28/17 15:02 99 16 97 Non-Rebreather 15.0 100 11/28/17 14:52 98 16 94 Non-Rebreather 15.0 100 11/28/17 12:00 98.7 92 18 103/67 100 Non-Rebreather 15.0 98.7 11/28/17 12:00 15.0 11/28/17 11:47 102 11/28/17 10:16 97 18 98 Non-Rebreather 15.0 100 11/28/17 10:07 98 20 99 Non-Rebreather 15.0 100 11/28/17 08:00 15.0 11/28/17 08:00 97.3 92 16 103/68 98 Non-Rebreather 15.0 97.3 11/28/17 07:45 94 11/28/17 06:59 102 22 98 Non-Rebreather 15.0 100 11/28/17 06:48 98 Non-Rebreather 15.0 100 11/28/17 06:48 100 22 98 Non-Rebreather 15.0 100 11/28/17 06:48 Non-Rebreather 15.0 100 11/28/17 04:00 97.7 105 20 116/73 97 Non-Rebreather 15.0 97.7 11/28/17 04:00 15.0 100 11/28/17 04:00 103 11/28/17 03:01 108 20 95 Non-Rebreather 15.0 100 11/28/17 02:47 100 11/28/17 02:47 108 20 95 Non-Rebreather 15.0 100 11/28/17 00:00 15.0 100 11/28/17 00:00 106 11/28/17 00:00 98.1 104 20 106/64 100 Non-Rebreather 15.0 100 98.1 11/27/17 23:27 108 24 100 Non-Rebreather 15.0 100 11/27/17 23:21 100 11/27/17 23:20 108 24 100 Non-Rebreather 15.0 100 11/27/17 20:00 103 11/27/17 20:00 97.5 109 24 106/64 98 Non-Rebreather 15.0 100 97.5 11/27/17 20:00 15.0 100 11/27/17 19:32 103 24 96 Non-Rebreather 15.0 100 11/27/17 19:25 100 11/27/17 19:24 103 24 96 Non-Rebreather 15.0 100 Intake and Output 11/27/17 11/28/17 19:00 07:00 Intake Total 1438.300 ml 700 ml Balance 1438.300 ml 700 ml IV Total 1438.300 ml 700 ml # Voids 1 2 Laboratory Tests 11/28/17 03:40: White Blood Count 16.3H, Red Blood Count 4.03L, Hemoglobin 11.3L, Hematocrit 36.9L, Mean Corpuscular Volume 91, Mean Corpuscular Hemoglobin 28.0, Mean Corpuscular Hemoglobin Concent 30.6L, Red Cell Distribution Width 15.2H, Platelet Count 70L, Mean Platelet Volume 9.4, Neutrophils (%) (Auto) , Lymphocytes (%) (Auto) , Monocytes (%) (Auto) , Eosinophils (%) (Auto) , Basophils (%) (Auto) , Differential Total Cells Counted 100, Neutrophils % ( Manual) 83H, Lymphocytes % (Manual) 12L, Monocytes % (Manual) 1, Eosinophils % ( Manual) 1, Basophils % (Manual) 0, Band Neutrophils 3, Platelet Estimate DecreasedL, Platelet Morphology Normal, Hypochromasia 1+, Anisocytosis 1+, Sodium Level 160H, Potassium Level 3.6, Chloride Level 120H, Carbon Dioxide Level 30, Anion Gap 10, Blood Urea Nitrogen 73H, Creatinine 2.0H, Estimat Glomerular Filtration Rate 30.4, Glucose Level 130H, Calcium Level 9.2 Height (Feet): 5 Height (Inches): 6.00 Weight (Pounds): 129 Neck: supple Respiratory/Chest: decreased breath sounds Abdomen: distended, tender Connor Bains MD November 28, 2017 18:28
[2017-11-28 20:00] VITALS: BP 95/61
[2017-11-28] MEDS: Dyna-Hex 2% Top Sol 2oz TOPIC SCH (21:26)
[2017-11-29] VITALS: BP 101/61
[2017-11-29] MEDS: Levalbuterol Inh UD 1.25mg/0.5ml HHN SCH ×6 (02:36→23:19)
[2017-11-29 04:00] VITALS: BP 98/56
[2017-11-29] MEDS: levETIRAcetam 500mg/5ml Liquid ORAL SCH ×3 (06:00→22:00)
[2017-11-29 06:18] LABS: HEMATOCRIT 35.4 % (37.0-47.0); HEMOGLOBIN 11.3 G/DL (12.0-16.0); MEAN CORPUSCULAR VOLUME 92 FL (80-99); PLATELET COUNT 53 K/UL (150-450); RED BLOOD COUNT 3.83 M/UL (4.20-5.40); RED CELL DISTRIBUTION WIDTH 15.1 % (11.6-14.8); WHITE BLOOD COUNT 12.5 K/UL (4.8-10.8)
[2017-11-29 06:35] LABS: ALANINE AMINOTRANSFERASE 30 U/L (12-78); ALBUMIN 1.9 G/DL (3.4-5.0); ALBUMIN/GLOBULIN RATIO 0.3 (1.0-2.7); ALKALINE PHOSPHATASE 80 U/L (46-116); ANION GAP 8 mmol/L (5-15); ASPARTATE AMINO TRANSFERASE 64 U/L (15-37); BILIRUBIN,TOTAL 0.2 MG/DL (0.2-1.0); BLOOD UREA NITROGEN 49 mg/dL (7-18); CALCIUM 9.1 MG/DL (8.5-10.1); CARBON DIOXIDE 30 MMOL/L (21-32); CHLORIDE 117 MMOL/L (98-107); CREATININE 1.4 MG/DL (0.55-1.30); POTASSIUM 3.7 MMOL/L (3.5-5.1); SODIUM 154 MMOL/L (136-145)
[2017-11-29 06:52] LABS: AMMONIA 79 umol/L (11-32)
[2017-11-29 08:00] VITALS: BP 90/50
--- NOTE | 2017-11-29 08:56 | General Progress Note ---
Assessment/Plan Assessment/Plan (1) Chronic abdominal pain (2) Chronic pancreatitis (3) Crohn's disease (4) Herniated nucleus pulposus, lumbar (5) Lumbar spondylosis (6) Radiculopathy of lumbar region (7) Lung mass Pt will be continued on [place] and pt has intrathecal pump. HOLD OPIOIDS FOR OVERSEDATION OR SBP<90 OR DBP<60 OR O2SAT<92% OR RR<12 Pt was d/w Dr. Malhotra and he concurred. Subjective Date patient seen: November 29, 2017 Time patient seen: 08:00 - am ROS Limited/Unobtainable: Yes Allergies: Coded Allergies: No Known Allergies (Verified , 05/21/06) Subjective Family at bed side. Face mask applied. No signs of distress or pain. Objective Last 24 Hour Vital Signs Date Time Temp Pulse Resp B/P (MAP) Pulse Ox O2 Delivery O2 Flow Rate FiO2 11/29/17 07:55 100 16 97 Non-Rebreather 15.0 100 11/29/17 07:44 96 Non-Rebreather 15.0 100 11/29/17 07:44 Non-Rebreather 15.0 100 11/29/17 07:43 98 16 96 Non-Rebreather 15.0 100 11/29/17 04:00 97.5 90 14 98/56 100 Non-Rebreather 15.0 97.5 11/29/17 04:00 89 11/29/17 03:00 92 16 95 Non-Rebreather 15.0 100 11/29/17 02:36 97 16 99 Non-Rebreather 15.0 100 11/29/17 00:00 97.7 101 14 101/61 98 Non-Rebreather 15.0 97.7 11/29/17 00:00 99 11/29/17 00:00 15.0 11/28/17 23:22 98 16 95 Non-Rebreather 15.0 100 11/28/17 23:14 87 16 99 Non-Rebreather 15.0 100 11/28/17 20:00 99 11/28/17 20:00 15.0 11/28/17 20:00 97.2 90 18 95/61 98 Non-Rebreather 15.0 97.2 11/28/17 19:58 90 16 93 Non-Rebreather 15.0 100 11/28/17 19:24 89 16 93 Non-Rebreather 15.0 100 11/28/17 19:23 93 Non-Rebreather 15.0 100 11/28/17 19:23 Non-Rebreather 15.0 100 11/28/17 16:00 15.0 11/28/17 16:00 97.9 90 14 98/64 98 Non-Rebreather 15.0 97.9 11/28/17 16:00 91 11/28/17 15:02 99 16 97 Non-Rebreather 15.0 100 11/28/17 14:52 98 16 94 Non-Rebreather 15.0 100 11/28/17 12:00 98.7 92 18 103/67 100 Non-Rebreather 15.0 98.7 11/28/17 12:00 15.0 11/28/17 11:47 102 11/28/17 10:16 97 18 98 Non-Rebreather 15.0 100 11/28/17 10:07 98 20 99 Non-Rebreather 15.0 100 Intake and Output 11/28/17 11/29/17 19:00 07:00 Intake Total 455 ml 1100 ml Balance 455 ml 1100 ml IV Total 455 ml 1100 ml # Voids 2 1 Laboratory Tests 11/29/17 04:00: White Blood Count 12.5H, Red Blood Count 3.83L, Hemoglobin 11.3L, Hematocrit 35.4L, Mean Corpuscular Volume 92, Mean Corpuscular Hemoglobin 29.4, Mean Corpuscular Hemoglobin Concent 31.8L, Red Cell Distribution Width 15.1H, Platelet Count 53L, Mean Platelet Volume 9.7, Neutrophils (%) (Auto) , Lymphocytes (%) (Auto) , Monocytes (%) (Auto) , Eosinophils (%) (Auto) , Basophils (%) (Auto) , Differential Total Cells Counted 100, Neutrophils % ( Manual) 74, Lymphocytes % (Manual) 14L, Monocytes % (Manual) 6, Eosinophils % ( Manual) 3, Basophils % (Manual) 0, Band Neutrophils 3, Nucleated Red Blood Cells 3, Platelet Estimate DecreasedL, Platelet Morphology Normal, Sodium Level 154H, Potassium Level 3.7, Chloride Level 117H, Carbon Dioxide Level 30, Anion Gap 8, Blood Urea Nitrogen 49H, Creatinine 1.4H, Estimat Glomerular Filtration Rate 45.8, Glucose Level 106, Calcium Level 9.1, Total Bilirubin 0.2, Aspartate Amino Transf (AST/SGOT) 64H, Alanine Aminotransferase (ALT/SGPT) 30, Alkaline Phosphatase 80, Ammonia 79H, Total Protein 7.7, Albumin 1.9L, Globulin 5.8, Albumin/Globulin Ratio 0.3L Height (Feet): 5 Height (Inches): 6.00 Weight (Pounds): 129 Objective General Appearance: on Bipap Neck: normal alignment, supple Cardiovascular: tachycardic Respiratory/Chest: decreased breath sounds Abdomen: tender, distended, intrathecal pump palpated Extremities: non-tender Edema: no edema noted JOSE ARREDONDO November 29, 2017 08:56
[2017-11-29] MEDS: Meropenem 1 GM in NS 55 ML IVPB SCH (09:00)
--- NOTE | 2017-11-29 10:26 | Diagnostic Imaging Report ---
APPROVED REPORT CPT Code: 93945 Present Symptoms Comments: BILATERAL LEGS PAIN. BILATERAL: Imaging reveals a patent deep venous system bilaterally. There is no evidence of thrombus within the femoral, popliteal or tibial segments. The greater saphenous veins are also within normal limits. Doppler indicates normal spontaneous flow within these segments.
--- NOTE | 2017-11-29 11:20 | Infectious Diseases Prog Note ---
Assessment/Plan Assessment/Plan ASSESSMENT: The patient is a 66-year-old female with, Sepsis, improving- 2ry to ESBL UTI- ?bacteremia (real vs contaminant) -u/a wbc 10-15, niet neg, leuk +2; ucx >100K ESBL E.coli -sp cx p -Bcx 08/29 Staph sp Fever/leukocytosis, imrovng Lethargy, on Bipap- improvnig- ?oversedation -CXR 11/25: Parenchymal opacities, primarily interstitial laterally demonstrated throughout the lungs with some interval improvement over the last 24 hours -CXR;Extensive mixed interstitial alveolar airspace disease bilaterally unchanged Probable small bowel obstruction Recent history of polymicrobial gram-negative bacteremia including Stenotrophomonas maltophilia and Enterobacter. History of Aggie esophagitis. History of C. difficile in the past. Air anterior to the liver , ? free intraperitoneal air ( Surg doubt perforation ) Lung and liver masses Ro Malignancy CT: Pleural-based mass at the left lung base / Moderate-sized left pleural effusion, left-sided pleural nodularity and retroperitoneal and paraspinal nodules/masses. Left inferior hilar mass lesion partially visualized. New low- attenuation liver lesion ( concerning for malignancy/metastatic disease ) Pl effusion SP ultrasound-guided thoracentesis, 960 cc ( m/l 2/2 mets, no evid of Empyema ) -exudate fluid: WBC 613 (n 6), pH 8, lguc 98, prot 4.6 (serum 8.4); cx stain: GRAM STAIN Final GRAM STAIN RESULT FEW WHITE BLOOD CELLS NO ORGANISMS SEEN cx negative prelime cytology report: malignant non-small cells in the pleural cavity. Crohn's disease. History of bowel obstruction x2 with lysis of adhesions in 2004. COPD. History of chronic pain syndrome, on morphine pump. CVA in 2004. Seizure disorder. PLAN: Switch Meropenem #3 (abx d#/-10) To ertapenem for ESBL E.coli UTI -Continue IV Vancomycin #3 for Staph bacteremia pending ID and repeat cultures -continue antibiotics if consistent with goals of care -11/28 SP Zosyn #2 -11/17 SP Zosyn #5 -repeat 2 sets of Bcx Monitor CBC and BMP. follow GI recommendations hem, surg f/u discussions of goals of care ongoing poor px Subjective Allergies: Coded Allergies: No Known Allergies (Verified , 05/21/06) Subjective afebrile in ~48hrs leukocytosis imrpoving bacteremic ESBL Ecoli UTI on NRB Objective Vital Signs Last 24 Hour Vital Signs Date Time Temp Pulse Resp B/P (MAP) Pulse Ox O2 Delivery O2 Flow Rate FiO2 11/29/17 08:00 97.4 99 19 90/50 100 Non-Rebreather 15.0 97.4 11/29/17 08:00 97 11/29/17 07:55 100 16 97 Non-Rebreather 15.0 100 11/29/17 07:44 96 Non-Rebreather 15.0 100 11/29/17 07:44 Non-Rebreather 15.0 100 11/29/17 07:43 98 16 96 Non-Rebreather 15.0 100 11/29/17 04:00 97.5 90 14 98/56 100 Non-Rebreather 15.0 97.5 11/29/17 04:00 89 11/29/17 03:00 92 16 95 Non-Rebreather 15.0 100 11/29/17 02:36 97 16 99 Non-Rebreather 15.0 100 11/29/17 00:00 97.7 101 14 101/61 98 Non-Rebreather 15.0 97.7 11/29/17 00:00 99 11/29/17 00:00 15.0 11/28/17 23:22 98 16 95 Non-Rebreather 15.0 100 11/28/17 23:14 87 16 99 Non-Rebreather 15.0 100 11/28/17 20:00 99 11/28/17 20:00 15.0 11/28/17 20:00 97.2 90 18 95/61 98 Non-Rebreather 15.0 97.2 11/28/17 19:58 90 16 93 Non-Rebreather 15.0 100 11/28/17 19:24 89 16 93 Non-Rebreather 15.0 100 11/28/17 19:23 93 Non-Rebreather 15.0 100 11/28/17 19:23 Non-Rebreather 15.0 100 11/28/17 16:00 15.0 11/28/17 16:00 97.9 90 14 98/64 98 Non-Rebreather 15.0 97.9 11/28/17 16:00 91 11/28/17 15:02 99 16 97 Non-Rebreather 15.0 100 11/28/17 14:52 98 16 94 Non-Rebreather 15.0 100 11/28/17 12:00 98.7 92 18 103/67 100 Non-Rebreather 15.0 98.7 11/28/17 12:00 15.0 11/28/17 11:47 102 Height (Feet): 5 Height (Inches): 6.00 Weight (Pounds): 129 Objective HEENT: anicteric Respiratory/Chest: normal breath sounds Cardiovascular: regular rhythm Abdomen: tender Microbiology Date/Time Source Procedure Growth Status 11/27/17 04:00 Blood Blood Culture - Preliminary Staphylococcus Species Resulted 11/26/17 15:30 Blood Blood Culture - Preliminary Staphylococcus Species Resulted 11/26/17 17:50 Urine,Clean Catch Urine Culture - Final Escherichia Coli - Esbl Complete Laboratory Tests Test 11/29/17 04:00 White Blood Count 12.5 K/UL (4.8-10.8) H Red Blood Count 3.83 M/UL (4.20-5.40) L Hemoglobin 11.3 G/DL (12.0-16.0) L Hematocrit 35.4 % (37.0-47.0) L Mean Corpuscular Volume 92 FL (80-99) Mean Corpuscular Hemoglobin 29.4 PG (27.0-31.0) Mean Corpuscular Hemoglobin Concent 31.8 G/DL (32.0-36.0) L Red Cell Distribution Width 15.1 % (11.6-14.8) H Platelet Count 53 K/UL (150-450) L Mean Platelet Volume 9.7 FL (6.5-10.1) Neutrophils (%) (Auto) % (45.0-75.0) Lymphocytes (%) (Auto) % (20.0-45.0) Monocytes (%) (Auto) % (1.0-10.0) Eosinophils (%) (Auto) % (0.0-3.0) Basophils (%) (Auto) % (0.0-2.0) Differential Total Cells Counted 100 Neutrophils % (Manual) 74 % (45-75) Lymphocytes % (Manual) 14 % (20-45) L Monocytes % (Manual) 6 % (1-10) Eosinophils % (Manual) 3 % (0-3) Basophils % (Manual) 0 % (0-2) Band Neutrophils 3 % (0-8) Nucleated Red Blood Cells 3 /100 WBC Platelet Estimate Decreased L Platelet Morphology Normal Sodium Level 154 MMOL/L (136-145) H Potassium Level 3.7 MMOL/L (3.5-5.1) Chloride Level 117 MMOL/L (98-107) H Carbon Dioxide Level 30 MMOL/L (21-32) Anion Gap 8 mmol/L (5-15) Blood Urea Nitrogen 49 mg/dL (7-18) H Creatinine 1.4 MG/DL (0.55-1.30) H Estimat Glomerular Filtration Rate 45.8 mL/min (>60) Glucose Level 106 MG/DL (74-106) Calcium Level 9.1 MG/DL (8.5-10.1) Total Bilirubin 0.2 MG/DL (0.2-1.0) Aspartate Amino Transf (AST/SGOT) 64 U/L (15-37) H Alanine Aminotransferase (ALT/SGPT) 30 U/L (12-78) Alkaline Phosphatase 80 U/L (46-116) Ammonia 79 umol/L (11-32) H Total Protein 7.7 G/DL (6.4-8.2) Albumin 1.9 G/DL (3.4-5.0) L Globulin 5.8 g/dL Albumin/Globulin Ratio 0.3 (1.0-2.7) L Current Medications Medications (Trade) Dose Ordered Sig/Vaibhav Route PRN Reason Start Time Stop Time Status Last Admin Dose Admin Acetaminophen (Tylenol) 650 mg Q4H PRN ORAL fever (temp>100.5F) 11/25/17 13:30 12/11/17 13:29 11/26/17 06:22 Acetaminophen (Tylenol) 650 mg Q4H PRN RECTAL Mild Pain (Pain Scale 1-3) 11/27/17 00:00 12/27/17 00:00 11/27/17 09:44 Acetaminophen/ Hydrocodone Bitart ([place] 10/325) 1 tab Q4H PRN ORAL Moderate Pain (Pain Scale 4-6) 11/26/17 09:30 12/03/17 09:29 Chlorhexidine Gluconate (Leah-Hex 2%) 1 applic DAILY@1999 TOPIC 11/28/17 20:00 12/28/17 19:59 11/28/17 21:26 Dextrose 1,000 ml @ 100 mls/hr Q10H IV 11/27/17 10:00 12/27/17 09:59 11/29/17 03:44 Dextrose (Dextrose 50%) 50 ml STAT PRN IV Hypoglycemia BS<60mg/dL 11/25/17 13:30 12/25/17 13:29 Levalbuterol HCl (Xopenex) 0.625 mg Q4HRT HHN 11/28/17 11:00 11/30/17 10:59 11/29/17 07:37 Levetiracetam (Keppra) 1,000 mg EVERY 8 HOURS ORAL 11/26/17 09:00 12/26/17 08:59 Levothyroxine Sodium (Synthroid) 75 mcg ACBREAKFAST ORAL 11/26/17 06:30 12/12/17 06:29 11/26/17 06:21 Meropenem 1 gm/ Sodium Chloride 55 ml @ 110 mls/hr Q12HR IVPB 11/27/17 21:00 12/02/17 20:59 11/29/17 09:00 Nitroglycerin (Ntg) 0.4 mg Q5M X 3 DOSES PRN SL Prn Chest Pain 11/25/17 12:15 12/11/17 10:59 11/26/17 01:53 Ondansetron HCl (Zofran) 4 mg Q6H PRN IVP Nausea & Vomiting 11/25/17 14:30 12/11/17 20:29 11/26/17 00:40 Vancomycin HCl (Vanco rx to dose) 1 ea DAILY PRN MISC Per rx protocol 11/27/17 11:45 12/27/17 11:44 Vancomycin/Sodium Chloride 250 ml @ 166.667 mls/hr Q24H IVPB 11/28/17 13:00 12/03/17 12:59 11/28/17 13:18 Kathleen Lafleur M.D. November 29, 2017 11:20
--- NOTE | 2017-11-29 11:20 | GI Progress Note ---
Assessment/Plan Problems: (1) Crohn's disease ICD Codes: K50.90 - Crohn's disease SNOMED: 40324233 Qualifiers: Qualified Codes: K50.919 - Crohn's disease, unspecified, with unspecified complications (2) Opioid dependence ICD Codes: F11.20 - Opioid dependence SNOMED: 29375724 (3) SBO (small bowel obstruction) ICD Codes: K56.609 - Unspecified intestinal obstruction, unspecified as to partial versus complete obstruction SNOMED: 719435236 (4) Chronic abdominal pain Status: stable Status Narrative Discussed with Dr. Gallegos. Assessment/Plan CT AP reviewed >> Evidence of disseminated malignancy, with large left pulmonary hilar mass or adenopathy, extensive left hilar and mediastinal adenopathy, multiple pleural- based masses on the left, multiple masses within the liver, and retroperitoneal lymphadenopathy. Recommendations now DNI/DNR fu oncology recs >>Do not recommend any further diagnosis/tissue given poor state, is not a chemotherapy candidate pain mgmt poor prognosis Subjective Subjective generalized pain Objective Last 24 Hour Vital Signs Date Time Temp Pulse Resp B/P (MAP) Pulse Ox O2 Delivery O2 Flow Rate FiO2 11/29/17 08:00 97.4 99 19 90/50 100 Non-Rebreather 15.0 97.4 11/29/17 08:00 97 11/29/17 07:55 100 16 97 Non-Rebreather 15.0 100 11/29/17 07:44 96 Non-Rebreather 15.0 100 11/29/17 07:44 Non-Rebreather 15.0 100 11/29/17 07:43 98 16 96 Non-Rebreather 15.0 100 11/29/17 04:00 97.5 90 14 98/56 100 Non-Rebreather 15.0 97.5 11/29/17 04:00 89 11/29/17 03:00 92 16 95 Non-Rebreather 15.0 100 11/29/17 02:36 97 16 99 Non-Rebreather 15.0 100 11/29/17 00:00 97.7 101 14 101/61 98 Non-Rebreather 15.0 97.7 11/29/17 00:00 99 11/29/17 00:00 15.0 11/28/17 23:22 98 16 95 Non-Rebreather 15.0 100 11/28/17 23:14 87 16 99 Non-Rebreather 15.0 100 11/28/17 20:00 99 11/28/17 20:00 15.0 11/28/17 20:00 97.2 90 18 95/61 98 Non-Rebreather 15.0 97.2 11/28/17 19:58 90 16 93 Non-Rebreather 15.0 100 11/28/17 19:24 89 16 93 Non-Rebreather 15.0 100 11/28/17 19:23 93 Non-Rebreather 15.0 100 11/28/17 19:23 Non-Rebreather 15.0 100 11/28/17 16:00 15.0 11/28/17 16:00 97.9 90 14 98/64 98 Non-Rebreather 15.0 97.9 11/28/17 16:00 91 11/28/17 15:02 99 16 97 Non-Rebreather 15.0 100 11/28/17 14:52 98 16 94 Non-Rebreather 15.0 100 11/28/17 12:00 98.7 92 18 103/67 100 Non-Rebreather 15.0 98.7 11/28/17 12:00 15.0 11/28/17 11:47 102 Intake and Output 11/28/17 11/29/17 19:00 07:00 Intake Total 455 ml 1100 ml Balance 455 ml 1100 ml IV Total 455 ml 1100 ml # Voids 2 1 Laboratory Tests Test 11/29/17 04:00 White Blood Count 12.5 K/UL (4.8-10.8) H Red Blood Count 3.83 M/UL (4.20-5.40) L Hemoglobin 11.3 G/DL (12.0-16.0) L Hematocrit 35.4 % (37.0-47.0) L Mean Corpuscular Volume 92 FL (80-99) Mean Corpuscular Hemoglobin 29.4 PG (27.0-31.0) Mean Corpuscular Hemoglobin Concent 31.8 G/DL (32.0-36.0) L Red Cell Distribution Width 15.1 % (11.6-14.8) H Platelet Count 53 K/UL (150-450) L Mean Platelet Volume 9.7 FL (6.5-10.1) Neutrophils (%) (Auto) % (45.0-75.0) Lymphocytes (%) (Auto) % (20.0-45.0) Monocytes (%) (Auto) % (1.0-10.0) Eosinophils (%) (Auto) % (0.0-3.0) Basophils (%) (Auto) % (0.0-2.0) Differential Total Cells Counted 100 Neutrophils % (Manual) 74 % (45-75) Lymphocytes % (Manual) 14 % (20-45) L Monocytes % (Manual) 6 % (1-10) Eosinophils % (Manual) 3 % (0-3) Basophils % (Manual) 0 % (0-2) Band Neutrophils 3 % (0-8) Nucleated Red Blood Cells 3 /100 WBC Platelet Estimate Decreased L Platelet Morphology Normal Sodium Level 154 MMOL/L (136-145) H Potassium Level 3.7 MMOL/L (3.5-5.1) Chloride Level 117 MMOL/L (98-107) H Carbon Dioxide Level 30 MMOL/L (21-32) Anion Gap 8 mmol/L (5-15) Blood Urea Nitrogen 49 mg/dL (7-18) H Creatinine 1.4 MG/DL (0.55-1.30) H Estimat Glomerular Filtration Rate 45.8 mL/min (>60) Glucose Level 106 MG/DL (74-106) Calcium Level 9.1 MG/DL (8.5-10.1) Total Bilirubin 0.2 MG/DL (0.2-1.0) Aspartate Amino Transf (AST/SGOT) 64 U/L (15-37) H Alanine Aminotransferase (ALT/SGPT) 30 U/L (12-78) Alkaline Phosphatase 80 U/L (46-116) Ammonia 79 umol/L (11-32) H Total Protein 7.7 G/DL (6.4-8.2) Albumin 1.9 G/DL (3.4-5.0) L Globulin 5.8 g/dL Albumin/Globulin Ratio 0.3 (1.0-2.7) L Height (Feet): 5 Height (Inches): 6.00 Weight (Pounds): 129 General Appearance: WD/WN, no apparent distress, alert Cardiovascular: normal rate Respiratory/Chest: no respiratory distress, other - non rebreather Abdominal Exam: normal bowel sounds, non tender, soft Extremities: non-tender Tara Scott N.P. November 29, 2017 11:20
--- NOTE | 2017-11-29 11:52 | Pulmonology Progress Note ---
Assessment/Plan Problems: (1) Metastatic cancer (2) Malignant pleural effusion (3) Chronic pain disorder (4) IBD (inflammatory bowel disease) (5) Interstitial lung disease (6) COPD (chronic obstructive pulmonary disease) Assessment/Plan respiratory treatment titrate fio3 to sat of 92 family doesn't want NG tube feeding continue current symptomatic treatment oncology on the case already and recommending comfort care, not a candidate for chemotherapy. pain management private room dc planning preferably with hospice. Subjective ROS Limited/Unobtainable: Yes Interval Events: comfortable, coma Constitutional: Reports: no symptoms HEENT: Repors: no symptoms Respiratory: Reports: no symptoms Allergies: Coded Allergies: No Known Allergies (Verified , 05/21/06) Objective Last 24 Hour Vital Signs Date Time Temp Pulse Resp B/P (MAP) Pulse Ox O2 Delivery O2 Flow Rate FiO2 11/29/17 11:30 95 16 93 Non-Rebreather 15.0 100 11/29/17 08:00 97.4 99 19 90/50 100 Non-Rebreather 15.0 97.4 11/29/17 08:00 97 11/29/17 07:55 100 16 97 Non-Rebreather 15.0 100 11/29/17 07:44 96 Non-Rebreather 15.0 100 11/29/17 07:44 Non-Rebreather 15.0 100 11/29/17 07:43 98 16 96 Non-Rebreather 15.0 100 11/29/17 04:00 97.5 90 14 98/56 100 Non-Rebreather 15.0 97.5 11/29/17 04:00 89 11/29/17 03:00 92 16 95 Non-Rebreather 15.0 100 11/29/17 02:36 97 16 99 Non-Rebreather 15.0 100 11/29/17 00:00 97.7 101 14 101/61 98 Non-Rebreather 15.0 97.7 11/29/17 00:00 99 11/29/17 00:00 15.0 11/28/17 23:22 98 16 95 Non-Rebreather 15.0 100 11/28/17 23:14 87 16 99 Non-Rebreather 15.0 100 11/28/17 20:00 99 11/28/17 20:00 15.0 5/6/18 20:00 97.2 90 18 95/61 98 Non-Rebreather 15.0 97.2 11/28/17 19:58 90 16 93 Non-Rebreather 15.0 100 11/28/17 19:24 89 16 93 Non-Rebreather 15.0 100 11/28/17 19:23 93 Non-Rebreather 15.0 100 11/28/17 19:23 Non-Rebreather 15.0 100 11/28/17 16:00 15.0 11/28/17 16:00 97.9 90 14 98/64 98 Non-Rebreather 15.0 97.9 11/28/17 16:00 91 11/28/17 15:02 99 16 97 Non-Rebreather 15.0 100 11/28/17 14:52 98 16 94 Non-Rebreather 15.0 100 11/28/17 12:00 98.7 92 18 103/67 100 Non-Rebreather 15.0 98.7 11/28/17 12:00 15.0 11/28/17 11:47 102 Intake and Output 11/28/17 11/29/17 19:00 07:00 Intake Total 455 ml 1100 ml Balance 455 ml 1100 ml IV Total 455 ml 1100 ml # Voids 2 1 Objective General Appearance: cachectic HEENT: normocephalic, atraumatic Respiratory/Chest: chest wall non-tender, lungs clear Cardiovascular: normal peripheral pulses, normal rate, regular rhythm Abdomen: normal bowel sounds, soft, non tender, no organomegaly, non distended Extremities: no cyanosis, no clubbing, no edema Skin: no rash, no lesions 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 Microbiology Date/Time Source Procedure Growth Status 11/27/17 04:00 Blood Blood Culture - Preliminary Staphylococcus Species Resulted 11/26/17 15:30 Blood Blood Culture - Preliminary Staphylococcus Species Resulted 11/26/17 17:50 Urine,Clean Catch Urine Culture - Final Escherichia Coli - Esbl Complete Laboratory Tests 11/29/17 04:00: White Blood Count 12.5H, Red Blood Count 3.83L, Hemoglobin 11.3L, Hematocrit 35.4L, Mean Corpuscular Volume 92, Mean Corpuscular Hemoglobin 29.4, Mean Corpuscular Hemoglobin Concent 31.8L, Red Cell Distribution Width 15.1H, Platelet Count 53L, Mean Platelet Volume 9.7, Neutrophils (%) (Auto) , Lymphocytes (%) (Auto) , Monocytes (%) (Auto) , Eosinophils (%) (Auto) , Basophils (%) (Auto) , Differential Total Cells Counted 100, Neutrophils % ( Manual) 74, Lymphocytes % (Manual) 14L, Monocytes % (Manual) 6, Eosinophils % ( Manual) 3, Basophils % (Manual) 0, Band Neutrophils 3, Nucleated Red Blood Cells 3, Platelet Estimate DecreasedL, Platelet Morphology Normal, Sodium Level 154H, Potassium Level 3.7, Chloride Level 117H, Carbon Dioxide Level 30, Anion Gap 8, Blood Urea Nitrogen 49H, Creatinine 1.4H, Estimat Glomerular Filtration Rate 45.8, Glucose Level 106, Calcium Level 9.1, Total Bilirubin 0.2, Aspartate Amino Transf (AST/SGOT) 64H, Alanine Aminotransferase (ALT/SGPT) 30, Alkaline Phosphatase 80, Ammonia 79H, Total Protein 7.7, Albumin 1.9L, Globulin 5.8, Albumin/Globulin Ratio 0.3L Current Medications Medications (Trade) Dose Ordered Sig/Vaibhav Route PRN Reason Start Time Stop Time Status Last Admin Dose Admin Acetaminophen (Tylenol) 650 mg Q4H PRN ORAL fever (temp>100.5F) 11/25/17 13:30 12/11/17 13:29 11/26/17 06:22 Acetaminophen (Tylenol) 650 mg Q4H PRN RECTAL Mild Pain (Pain Scale 1-3) 11/27/17 00:00 12/27/17 00:00 11/27/17 09:44 Acetaminophen/ Hydrocodone Bitart ([place] 10/325) 1 tab Q4H PRN ORAL Moderate Pain (Pain Scale 4-6) 11/26/17 09:30 12/03/17 09:29 Chlorhexidine Gluconate (Leah-Hex 2%) 1 applic DAILY@2000 TOPIC 11/28/17 20:00 12/28/17 19:59 11/28/17 21:26 Dextrose 1,000 ml @ 100 mls/hr Q10H IV 11/27/17 10:00 12/27/17 09:59 11/29/17 03:44 Dextrose (Dextrose 50%) 50 ml STAT PRN IV Hypoglycemia BS<60mg/dL 11/25/17 13:30 12/25/17 13:29 Ertapenem 1 gm/ Sodium Chloride 55 ml @ 110 mls/hr Q24H IVPB 11/29/17 21:00 12/04/17 20:59 Levalbuterol HCl (Xopenex) 0.625 mg Q4HRT HHN 11/28/17 11:00 11/30/17 10:59 11/29/17 11:30 Levetiracetam (Keppra) 1,000 mg EVERY 8 HOURS ORAL 11/26/17 09:00 12/26/17 08:59 Levothyroxine Sodium (Synthroid) 75 mcg ACBREAKFAST ORAL 11/26/17 06:30 12/12/17 06:29 11/26/17 06:21 Nitroglycerin (Ntg) 0.4 mg Q5M X 3 DOSES PRN SL Prn Chest Pain 11/25/17 12:15 12/11/17 10:59 11/26/17 01:53 Ondansetron HCl (Zofran) 4 mg Q6H PRN IVP Nausea & Vomiting 11/25/17 14:30 12/11/17 20:29 11/26/17 00:40 Vancomycin HCl (Vanco rx to dose) 1 ea DAILY PRN MISC Per rx protocol 11/27/17 11:45 12/27/17 11:44 Vancomycin/Sodium Chloride 250 ml @ 166.667 mls/hr Q24H IVPB 11/28/17 13:00 12/03/17 12:59 11/28/17 13:18 Rob Wagner MD November 29, 2017 11:52
[2017-11-29 12:00] VITALS: BP 98/56
--- NOTE | 2017-11-29 12:20 | Nephrology Progress Note ---
Assessment/Plan Assessment 1. Hypernatremia 2. Acute renal failure. 3. Malnutrition. 4. Failure to thrive. 5. Metastatic CA. 6. Recurrent pleural effusion. 7. Stage 4 Metastatic CA. Plan plan 'to continue ivf monitoring renal function replace electrolyte as need it avoid NSIAD Subjective Constitutional: Reports: no symptoms HEENT: Reports: no symptoms Genitourinary: Reports: no symptoms Subjective no acute events overnight Objective Objective Last 24 Hour Vital Signs Date Time Temp Pulse Resp B/P (MAP) Pulse Ox O2 Delivery O2 Flow Rate FiO2 11/29/17 11:43 91 16 97 Non-Rebreather 15.0 100 11/29/17 11:30 95 16 93 Non-Rebreather 15.0 100 11/29/17 08:00 97.4 99 19 90/50 100 Non-Rebreather 15.0 97.4 11/29/17 08:00 97 11/29/17 07:55 100 16 97 Non-Rebreather 15.0 100 11/29/17 07:44 96 Non-Rebreather 15.0 100 11/29/17 07:44 Non-Rebreather 15.0 100 11/29/17 07:43 98 16 96 Non-Rebreather 15.0 100 11/29/17 04:00 97.5 90 14 98/56 100 Non-Rebreather 15.0 97.5 11/29/17 04:00 89 11/29/17 03:00 92 16 95 Non-Rebreather 15.0 100 11/29/17 02:36 97 16 99 Non-Rebreather 15.0 100 11/29/17 00:00 97.7 101 14 101/61 98 Non-Rebreather 15.0 97.7 11/29/17 00:00 99 11/29/17 00:00 15.0 11/28/17 23:22 98 16 95 Non-Rebreather 15.0 100 11/28/17 23:14 87 16 99 Non-Rebreather 15.0 100 11/28/17 20:00 99 11/28/17 20:00 15.0 11/28/17 20:00 97.2 90 18 95/61 98 Non-Rebreather 15.0 97.2 11/28/17 19:58 90 16 93 Non-Rebreather 15.0 100 11/28/17 19:24 89 16 93 Non-Rebreather 15.0 100 11/28/17 19:23 93 Non-Rebreather 15.0 100 11/28/17 19:23 Non-Rebreather 15.0 100 11/28/17 16:00 15.0 11/28/17 16:00 97.9 90 14 98/64 98 Non-Rebreather 15.0 97.9 11/28/17 16:00 91 11/28/17 15:02 99 16 97 Non-Rebreather 15.0 100 11/28/17 14:52 98 16 94 Non-Rebreather 15.0 100 Intake and Output 11/28/17 11/29/17 19:00 07:00 Intake Total 455 ml 1100 ml Balance 455 ml 1100 ml IV Total 455 ml 1100 ml # Voids 2 1 Laboratory Tests 11/29/17 04:00: White Blood Count 12.5H, Red Blood Count 3.83L, Hemoglobin 11.3L, Hematocrit 35.4L, Mean Corpuscular Volume 92, Mean Corpuscular Hemoglobin 29.4, Mean Corpuscular Hemoglobin Concent 31.8L, Red Cell Distribution Width 15.1H, Platelet Count 53L, Mean Platelet Volume 9.7, Neutrophils (%) (Auto) , Lymphocytes (%) (Auto) , Monocytes (%) (Auto) , Eosinophils (%) (Auto) , Basophils (%) (Auto) , Differential Total Cells Counted 100, Neutrophils % ( Manual) 74, Lymphocytes % (Manual) 14L, Monocytes % (Manual) 6, Eosinophils % ( Manual) 3, Basophils % (Manual) 0, Band Neutrophils 3, Nucleated Red Blood Cells 3, Platelet Estimate DecreasedL, Platelet Morphology Normal, Sodium Level 154H, Potassium Level 3.7, Chloride Level 117H, Carbon Dioxide Level 30, Anion Gap 8, Blood Urea Nitrogen 49H, Creatinine 1.4H, Estimat Glomerular Filtration Rate 45.8, Glucose Level 106, Calcium Level 9.1, Total Bilirubin 0.2, Aspartate Amino Transf (AST/SGOT) 64H, Alanine Aminotransferase (ALT/SGPT) 30, Alkaline Phosphatase 80, Ammonia 79H, Total Protein 7.7, Albumin 1.9L, Globulin 5.8, Albumin/Globulin Ratio 0.3L Height (Feet): 5 Height (Inches): 6.00 Weight (Pounds): 129 Objective HEAD AND NECK: Bitemporal wasting. Extraocular movements intact. Pupils are reactive to light and accommodation. Dry mucous membranes. Currently on non-rebreather mask. LUNGS: Decreased breathing sounds on the both sides. CARDIAC: Regular rate and rhythm. S1 and S2. No murmur. No rub. ABDOMEN: Tender. No guarding or rebound. Bowel sounds decreased. EXTREMITIES: No edema. No clubbing. No cyanosis FAMILIA SHEPHERD November 29, 2017 12:20
[2017-11-29] MEDS: Vancomycin 750mg/NS 250ml IVPB SCH (12:49)
--- NOTE | 2017-11-29 14:30 | General Progress Note ---
Assessment/Plan Problem List: (1) Crohn's disease ICD Codes: K50.90 - Crohn's disease SNOMED: 77747489 Qualifiers: Qualified Codes: K50.919 - Crohn's disease, unspecified, with unspecified complications (2) Opioid dependence ICD Codes: F11.20 - Opioid dependence SNOMED: 58944986 (3) Intractable abdominal pain ICD Codes: R10.9 - Unspecified abdominal pain SNOMED: 87472793, 538771106 (4) COPD (chronic obstructive pulmonary disease) ICD Codes: J44.9 - Chronic obstructive pulmonary disease SNOMED: 42234963 (5) Shortness of breath (6) SOB (shortness of breath) ICD Codes: R06.02 - Shortness of breath SNOMED: 897343581 (7) UTI (urinary tract infection) ICD Codes: N39.0 - Urinary tract infection, site not specified SNOMED: 92647977 (8) Lung mass ICD Codes: R91.8 - Other nonspecific abnormal finding of lung field SNOMED: 893962916 (9) Tachycardia ICD Codes: R00.0 - Tachycardia, unspecified SNOMED: 5119422 Status: unchanged Assessment/Plan ot pt diet pain control sx eval cbc bmp am heme f/u cardio eval, ltach eval Subjective Constitutional: Reports: weakness Respiratory: Reports: shortness of breath Allergies: Coded Allergies: No Known Allergies (Verified , 05/21/06) All Systems: reviewed and negative except above Subjective 02 mask sleepy Objective Last 24 Hour Vital Signs Date Time Temp Pulse Resp B/P (MAP) Pulse Ox O2 Delivery O2 Flow Rate FiO2 11/29/17 12:00 98.4 97 19 98/56 100 Non-Rebreather 15.0 98.4 11/29/17 11:43 91 16 97 Non-Rebreather 15.0 100 11/29/17 11:30 95 16 93 Non-Rebreather 15.0 100 11/29/17 08:00 97.4 99 19 90/50 100 Non-Rebreather 15.0 97.4 11/29/17 08:00 97 11/29/17 07:55 100 16 97 Non-Rebreather 15.0 100 11/29/17 07:44 96 Non-Rebreather 15.0 100 11/29/17 07:44 Non-Rebreather 15.0 100 11/29/17 07:43 98 16 96 Non-Rebreather 15.0 100 11/29/17 04:00 97.5 90 14 98/56 100 Non-Rebreather 15.0 97.5 11/29/17 04:00 89 11/29/17 03:00 92 16 95 Non-Rebreather 15.0 100 11/29/17 02:36 97 16 99 Non-Rebreather 15.0 100 11/29/17 00:00 97.7 101 14 101/61 98 Non-Rebreather 15.0 97.7 11/29/17 00:00 99 11/29/17 00:00 15.0 11/28/17 23:22 98 16 95 Non-Rebreather 15.0 100 11/28/17 23:14 87 16 99 Non-Rebreather 15.0 100 11/28/17 20:00 99 11/28/17 20:00 15.0 11/28/17 20:00 97.2 90 18 95/61 98 Non-Rebreather 15.0 97.2 11/28/17 19:58 90 16 93 Non-Rebreather 15.0 100 11/28/17 19:24 89 16 93 Non-Rebreather 15.0 100 11/28/17 19:23 93 Non-Rebreather 15.0 100 11/28/17 19:23 Non-Rebreather 15.0 100 11/28/17 16:00 15.0 11/28/17 16:00 97.9 90 14 98/64 98 Non-Rebreather 15.0 97.9 11/28/17 16:00 91 11/28/17 15:02 99 16 97 Non-Rebreather 15.0 100 11/28/17 14:52 98 16 94 Non-Rebreather 15.0 100 Intake and Output 11/28/17 11/29/17 19:00 07:00 Intake Total 455 ml 1100 ml Balance 455 ml 1100 ml IV Total 455 ml 1100 ml # Voids 2 1 Laboratory Tests 11/29/17 04:00: White Blood Count 12.5H, Red Blood Count 3.83L, Hemoglobin 11.3L, Hematocrit 35.4L, Mean Corpuscular Volume 92, Mean Corpuscular Hemoglobin 29.4, Mean Corpuscular Hemoglobin Concent 31.8L, Red Cell Distribution Width 15.1H, Platelet Count 53L, Mean Platelet Volume 9.7, Neutrophils (%) (Auto) , Lymphocytes (%) (Auto) , Monocytes (%) (Auto) , Eosinophils (%) (Auto) , Basophils (%) (Auto) , Differential Total Cells Counted 100, Neutrophils % ( Manual) 74, Lymphocytes % (Manual) 14L, Monocytes % (Manual) 6, Eosinophils % ( Manual) 3, Basophils % (Manual) 0, Band Neutrophils 3, Nucleated Red Blood Cells 3, Platelet Estimate DecreasedL, Platelet Morphology Normal, Sodium Level 154H, Potassium Level 3.7, Chloride Level 117H, Carbon Dioxide Level 30, Anion Gap 8, Blood Urea Nitrogen 49H, Creatinine 1.4H, Estimat Glomerular Filtration Rate 45.8, Glucose Level 106, Calcium Level 9.1, Total Bilirubin 0.2, Aspartate Amino Transf (AST/SGOT) 64H, Alanine Aminotransferase (ALT/SGPT) 30, Alkaline Phosphatase 80, Ammonia 79H, Total Protein 7.7, Albumin 1.9L, Globulin 5.8, Albumin/Globulin Ratio 0.3L Height (Feet): 5 Height (Inches): 6.00 Weight (Pounds): 129 General Appearance: lethargic EENT: normal ENT inspection Neck: non-tender Cardiovascular: normal peripheral pulses, normal rate, regular rhythm Respiratory/Chest: chest wall non-tender, decreased breath sounds Abdomen: normal bowel sounds, non tender, soft Extremities: normal inspection Edema: no edema noted Arm (L), no edema noted Arm (R), no edema noted Leg (L), no edema noted Leg (R), no edema noted Pedal (L), no edema noted Pedal (R), no edema noted Generalized Neurologic: responsive, motor weakness Skin: normal pigmentation, warm/dry BAYRON BENEDICT November 29, 2017 14:29
--- NOTE | 2017-11-29 15:45 | Consultation ---
DATE OF CONSULTATION: 11/29/2017 HISTORY OF PRESENT ILLNESS: The patient is a 66-year-old female patient with intractable abdominal pain. She has high levels of anxiety and agitation secondary to stress of her medical illness, that is why her attending has requested daily psychiatric consultation. MENTAL STATUS EXAMINATION: This is a 66-year-old female. Appearance disheveled. Attitude, irritable and agitated. Affect guarded and restricted. Intellect poor. Mood depressed, anxious. Motor activity, psychomotor agitation. Attention span is poor. Orientation x2. Speech is pressured. Thought process, disorganized and illogical. Thought content, auditory hallucinations, and paranoid delusions. Insight and judgement is poor. DISCHARGE DIAGNOSIS: Bipolar 2, rule out . PLAN: Continue her on Neurontin reduce anxiety. An 18 to 20 minutes supportive psychotherapy provided. Chart reviewed and discussed with staff. The patient seen and assessed at bedside. I would like to thank, Dr. Barber Dial, for this interesting consultation. Mena Goncalves M.D. DR: XIN JOB#: [id number] CC:
[2017-11-29 16:00] VITALS: BP 96/79
--- NOTE | 2017-11-29 17:04 | Cardiac Electrophysiology PN ---
Assessment/Plan Assessment/Plan 1. Sinus tachycardia with no evidence of fib or SVT due to pain and respiratory failure. Echocardiogram showed EF 65%. On iv Abx 2. Malignant pleural effusion and metastatic cancer. Follow up Dr. Wagner. S/p Left Thoracentesis on 11/12/17 Morphine pump in abdomen. On BIPAP 3. Lung mass. 4. Crohn disease and history of exploratory laparotomy, under management of Dr. Gallegos. 5. Ascites paracentesis with cytology and per Dr. Bains. 6. DNR and DNI DW RN Subjective Subjective On BIPAP on facemask unresponsive in sinus tach 100. DNR Objective Last 24 Hour Vital Signs Date Time Temp Pulse Resp B/P (MAP) Pulse Ox O2 Delivery O2 Flow Rate FiO2 11/29/17 15:15 102 16 96 Non-Rebreather 15.0 100 11/29/17 15:08 98 16 88 Non-Rebreather 15.0 100 11/29/17 12:00 98.4 97 19 98/56 100 Non-Rebreather 15.0 98.4 11/29/17 12:00 94 11/29/17 11:43 91 16 97 Non-Rebreather 15.0 100 11/29/17 11:30 95 16 93 Non-Rebreather 15.0 100 11/29/17 08:00 97.4 99 19 90/50 100 Non-Rebreather 15.0 97.4 11/29/17 08:00 97 11/29/17 07:55 100 16 97 Non-Rebreather 15.0 100 11/29/17 07:44 96 Non-Rebreather 15.0 100 11/29/17 07:44 Non-Rebreather 15.0 100 11/29/17 07:43 98 16 96 Non-Rebreather 15.0 100 11/29/17 04:00 97.5 90 14 98/56 100 Non-Rebreather 15.0 97.5 11/29/17 04:00 89 11/29/17 03:00 92 16 95 Non-Rebreather 15.0 100 11/29/17 02:36 97 16 99 Non-Rebreather 15.0 100 11/29/17 00:00 97.7 101 14 101/61 98 Non-Rebreather 15.0 97.7 11/29/17 00:00 99 5/7/18 00:00 15.0 11/28/17 23:22 98 16 95 Non-Rebreather 15.0 100 11/28/17 23:14 87 16 99 Non-Rebreather 15.0 100 11/28/17 20:00 99 11/28/17 20:00 15.0 11/28/17 20:00 97.2 90 18 95/61 98 Non-Rebreather 15.0 97.2 11/28/17 19:58 90 16 93 Non-Rebreather 15.0 100 11/28/17 19:24 89 16 93 Non-Rebreather 15.0 100 11/28/17 19:23 93 Non-Rebreather 15.0 100 11/28/17 19:23 Non-Rebreather 15.0 100 Intake and Output 11/28/17 11/29/17 19:00 07:00 Intake Total 455 ml 1100 ml Balance 455 ml 1100 ml IV Total 455 ml 1100 ml # Voids 2 1 Laboratory Tests Test 11/29/17 04:00 White Blood Count 12.5 K/UL (4.8-10.8) H Red Blood Count 3.83 M/UL (4.20-5.40) L Hemoglobin 11.3 G/DL (12.0-16.0) L Hematocrit 35.4 % (37.0-47.0) L Mean Corpuscular Volume 92 FL (80-99) Mean Corpuscular Hemoglobin 29.4 PG (27.0-31.0) Mean Corpuscular Hemoglobin Concent 31.8 G/DL (32.0-36.0) L Red Cell Distribution Width 15.1 % (11.6-14.8) H Platelet Count 53 K/UL (150-450) L Mean Platelet Volume 9.7 FL (6.5-10.1) Neutrophils (%) (Auto) % (45.0-75.0) Lymphocytes (%) (Auto) % (20.0-45.0) Monocytes (%) (Auto) % (1.0-10.0) Eosinophils (%) (Auto) % (0.0-3.0) Basophils (%) (Auto) % (0.0-2.0) Differential Total Cells Counted 100 Neutrophils % (Manual) 74 % (45-75) Lymphocytes % (Manual) 14 % (20-45) L Monocytes % (Manual) 6 % (1-10) Eosinophils % (Manual) 3 % (0-3) Basophils % (Manual) 0 % (0-2) Band Neutrophils 3 % (0-8) Nucleated Red Blood Cells 3 /100 WBC Platelet Estimate Decreased L Platelet Morphology Normal Sodium Level 154 MMOL/L (136-145) H Potassium Level 3.7 MMOL/L (3.5-5.1) Chloride Level 117 MMOL/L (98-107) H Carbon Dioxide Level 30 MMOL/L (21-32) Anion Gap 8 mmol/L (5-15) Blood Urea Nitrogen 49 mg/dL (7-18) H Creatinine 1.4 MG/DL (0.55-1.30) H Estimat Glomerular Filtration Rate 45.8 mL/min (>60) Glucose Level 106 MG/DL (74-106) Calcium Level 9.1 MG/DL (8.5-10.1) Total Bilirubin 0.2 MG/DL (0.2-1.0) Aspartate Amino Transf (AST/SGOT) 64 U/L (15-37) H Alanine Aminotransferase (ALT/SGPT) 30 U/L (12-78) Alkaline Phosphatase 80 U/L (46-116) Ammonia 79 umol/L (11-32) H Total Protein 7.7 G/DL (6.4-8.2) Albumin 1.9 G/DL (3.4-5.0) L Globulin 5.8 g/dL Albumin/Globulin Ratio 0.3 (1.0-2.7) L Microbiology Date/Time Source Procedure Growth Status 11/27/17 04:00 Blood Blood Culture - Preliminary Staphylococcus Species Resulted 11/26/17 17:50 Urine,Clean Catch Urine Culture - Final Escherichia Coli - Esbl Complete Objective HEAD AND NECK: Face mask on LUNGS: Coarse rhonchi. CARDIOVASCULAR: Tachy S1 and S2 ABDOMEN: Tender with a pump under skin. EXTREMITIES: No pitting edema. Pk Dutta MD November 29, 2017 17:04
[2017-11-29 20:00] VITALS: BP 104/65
[2017-11-29] MEDS ORDERED: Ertapenem 1 GM in NS 55 ML IVPB SCH (21:00)
[2017-11-29] MEDS: Dyna-Hex 2% Top Sol 2oz TOPIC SCH (21:01)
[2017-11-30] VITALS: BP 104/63
[2017-11-30] MEDS: Levalbuterol Inh UD 1.25mg/0.5ml HHN SCH ×4 (02:46→23:00)
[2017-11-30 04:00] VITALS: BP 95/56
[2017-11-30 04:44] LABS: HEMATOCRIT 35.4 % (37.0-47.0); HEMOGLOBIN 11.3 G/DL (12.0-16.0); MEAN CORPUSCULAR VOLUME 92 FL (80-99); PLATELET COUNT 65 K/UL (150-450); RED BLOOD COUNT 3.84 M/UL (4.20-5.40); RED CELL DISTRIBUTION WIDTH 15.2 % (11.6-14.8); WHITE BLOOD COUNT 12.1 K/UL (4.8-10.8)
[2017-11-30 05:00] LABS: ANION GAP 7 mmol/L (5-15); BLOOD UREA NITROGEN 31 mg/dL (7-18); CALCIUM 9.4 MG/DL (8.5-10.1); CARBON DIOXIDE 31 MMOL/L (21-32); CHLORIDE 114 MMOL/L (98-107); CREATININE 1.1 MG/DL (0.55-1.30); POTASSIUM 3.5 MMOL/L (3.5-5.1); SODIUM 152 MMOL/L (136-145)
[2017-11-30] MEDS: levETIRAcetam 500mg/5ml Liquid ORAL SCH ×3 (05:56→21:59)
[2017-11-30 08:00] VITALS: BP 99/54
--- NOTE | 2017-11-30 08:54 | General Progress Note ---
Assessment/Plan Assessment/Plan (1) Chronic abdominal pain (2) Chronic pancreatitis (3) Crohn's disease (4) Herniated nucleus pulposus, lumbar (5) Lumbar spondylosis (6) Radiculopathy of lumbar region (7) Lung mass, Metastatic cancer Pt will be continued on [place] and pt has intrathecal pump. HOLD OPIOIDS FOR OVERSEDATION OR SBP<90 OR DBP<60 OR O2SAT<92% OR RR<12 Pt was d/w Dr. Malhotra and he concurred. Subjective Date patient seen: November 30, 2017 Time patient seen: 08:15 - am ROS Limited/Unobtainable: Yes Allergies: Coded Allergies: No Known Allergies (Verified , 05/21/06) Subjective She is in bed and family at bedside. No signs of pain or distress. D/w nurse about refilling the intrathecal pump as per Dr. Malhotra prior to discharge, Objective Last 24 Hour Vital Signs Date Time Temp Pulse Resp B/P (MAP) Pulse Ox O2 Delivery O2 Flow Rate FiO2 11/30/17 07:20 97 18 95 Non-Rebreather 15.0 100 11/30/17 07:09 Non-Rebreather 15.0 100 11/30/17 07:09 95 18 93 Non-Rebreather 15.0 100 11/30/17 07:09 93 Non-Rebreather 15.0 100 11/30/17 04:00 101 11/30/17 04:00 98.0 99 21 95/56 98 Non-Rebreather 15.0 100 98.0 11/30/17 02:57 96 18 95 Non-Rebreather 15.0 100 11/30/17 02:47 98 18 95 Non-Rebreather 15.0 100 11/30/17 00:00 98.1 95 22 104/63 95 Non-Rebreather 15.0 100 98.1 11/29/17 23:26 93 18 93 Non-Rebreather 15.0 100 11/29/17 23:19 96 18 96 Non-Rebreather 15.0 100 11/29/17 20:00 99 11/29/17 20:00 97.4 99 21 104/65 93 Non-Rebreather 15.0 100 97.4 11/29/17 19:21 99 16 91 Non-Rebreather 15.0 100 11/29/17 19:16 Non-Rebreather 15.0 100 11/29/17 19:16 93 Non-Rebreather 15.0 100 11/29/17 19:13 93 18 92 Non-Rebreather 15.0 100 11/29/17 16:00 94 11/29/17 16:00 97.8 97 19 96/79 100 Non-Rebreather 15.0 97.8 11/29/17 15:15 102 16 96 Non-Rebreather 15.0 100 11/29/17 15:08 98 16 88 Non-Rebreather 15.0 100 11/29/17 12:00 98.4 97 19 98/56 100 Non-Rebreather 15.0 98.4 11/29/17 12:00 94 11/29/17 11:43 91 16 97 Non-Rebreather 15.0 100 11/29/17 11:30 95 16 93 Non-Rebreather 15.0 100 Intake and Output 11/29/17 11/30/17 19:00 07:00 Intake Total 1233.334 ml 1135 ml Balance 1233.334 ml 1135 ml IV Total 1233.334 ml 1135 ml # Voids 3 2 Laboratory Tests 11/30/17 04:00: White Blood Count 12.1H, Red Blood Count 3.84L, Hemoglobin 11.3L, Hematocrit 35.4L, Mean Corpuscular Volume 92, Mean Corpuscular Hemoglobin 29.4, Mean Corpuscular Hemoglobin Concent 31.9L, Red Cell Distribution Width 15.2H, Platelet Count 65L, Mean Platelet Volume 8.8, Neutrophils (%) (Auto) , Lymphocytes (%) (Auto) , Monocytes (%) (Auto) , Eosinophils (%) (Auto) , Basophils (%) (Auto) , Differential Total Cells Counted 100, Neutrophils % ( Manual) 68, Lymphocytes % (Manual) 10L, Monocytes % (Manual) 5, Eosinophils % ( Manual) 4H, Basophils % (Manual) 0, Band Neutrophils 13H, Nucleated Red Blood Cells 2, Platelet Estimate DecreasedL, Platelet Morphology Normal, Hypochromasia 1+, Anisocytosis 1+, Sodium Level 152H, Potassium Level 3.5, Chloride Level 114H, Carbon Dioxide Level 31, Anion Gap 7, Blood Urea Nitrogen 31H, Creatinine 1.1, Estimat Glomerular Filtration Rate > 60, Glucose Level 119H , Calcium Level 9.4 Height (Feet): 5 Height (Inches): 6.00 Weight (Pounds): 129 Objective General Appearance: on Bipap Neck: normal alignment, supple Cardiovascular: tachycardic Respiratory/Chest: decreased breath sounds Abdomen: tender, distended, intrathecal pump palpated Extremities: non-tender Edema: no edema noted JOSE ARREDONDO November 30, 2017 08:54
--- NOTE | 2017-11-30 10:47 | Infectious Diseases Prog Note ---
Assessment/Plan Assessment/Plan ASSESSMENT: The patient is a 66-year-old female with, Sepsis, improving- 2ry to ESBL UTI- ?bacteremia (real vs contaminant)- r/p PICC line infection -u/a wbc 10-15, niet neg, leuk +2; ucx >100K ESBL E.coli -sp cx p -11/26 Bcx / S. epi (MRSE); 11/29 p Fever/leukocytosis, improving Lethargy, on Bipap- improvnig- ?oversedation -CXR 11/25: Parenchymal opacities, primarily interstitial laterally demonstrated throughout the lungs with some interval improvement over the last 24 hours -CXR;Extensive mixed interstitial alveolar airspace disease bilaterally unchanged Probable small bowel obstruction Recent history of polymicrobial gram-negative bacteremia including Stenotrophomonas maltophilia and Enterobacter. History of Aggie esophagitis. History of C. difficile in the past. Air anterior to the liver , ? free intraperitoneal air ( Surg doubt perforation ) Lung and liver masses Ro Malignancy CT: Pleural-based mass at the left lung base / Moderate-sized left pleural effusion, left-sided pleural nodularity and retroperitoneal and paraspinal nodules/masses. Left inferior hilar mass lesion partially visualized. New low- attenuation liver lesion ( concerning for malignancy/metastatic disease ) Pl effusion SP ultrasound-guided thoracentesis, 960 cc ( m/l 2/2 mets, no evid of Empyema ) -exudate fluid: WBC 613 (n 6), pH 8, lguc 98, prot 4.6 (serum 8.4); cx stain: GRAM STAIN Final GRAM STAIN RESULT FEW WHITE BLOOD CELLS NO ORGANISMS SEEN cx negative prelime cytology report: malignant non-small cells in the pleural cavity. Crohn's disease. History of bowel obstruction x2 with lysis of adhesions in 2004. COPD. History of chronic pain syndrome, on morphine pump. CVA in 2004. Seizure disorder. PLAN: Continue ertapenem abx d#11/29-10 for ESBL E.coli UTI -Continue IV Vancomycin #4 for Staph epi bacteremia pending repeat cultures -continue antibiotics if consistent with goals of care -11/29 SP Meropenem #3 -5/6 SP Zosyn #2 -/ SP Zosyn #5 -f/u repeat 2 sets of Bcx and obtain 1 set from PICC line may need removal of PICC line Monitor CBC and BMP. follow GI recommendations hem, surg f/u discussions of goals of care ongoing poor px Subjective Allergies: Coded Allergies: No Known Allergies (Verified , 05/21/06) Subjective afebrile in ~72 hrs leukocytosis imrpoved, now stable at 12 bacteremic; rpeat bcx pending on NRB more awake and interavtive Objective Vital Signs Last 24 Hour Vital Signs Date Time Temp Pulse Resp B/P (MAP) Pulse Ox O2 Delivery O2 Flow Rate FiO2 11/30/17 08:00 97.8 97 20 99/54 99 Non-Rebreather 15.0 97 97.8 11/30/17 07:20 97 18 95 Non-Rebreather 15.0 100 11/30/17 07:09 Non-Rebreather 15.0 100 11/30/17 07:09 95 18 93 Non-Rebreather 15.0 100 11/30/17 07:09 93 Non-Rebreather 15.0 100 11/30/17 04:00 101 11/30/17 04:00 98.0 99 21 95/56 98 Non-Rebreather 15.0 100 98.0 11/30/17 02:57 96 18 95 Non-Rebreather 15.0 100 11/30/17 02:47 98 18 95 Non-Rebreather 15.0 100 11/30/17 00:00 98.1 95 22 104/63 95 Non-Rebreather 15.0 100 98.1 11/29/17 23:26 93 18 93 Non-Rebreather 15.0 100 11/29/17 23:19 96 18 96 Non-Rebreather 15.0 100 11/29/17 20:00 99 11/29/17 20:00 97.4 99 21 104/65 93 Non-Rebreather 15.0 100 97.4 11/29/17 19:21 99 16 91 Non-Rebreather 15.0 100 11/29/17 19:16 Non-Rebreather 15.0 100 11/29/17 19:16 93 Non-Rebreather 15.0 100 11/29/17 19:13 93 18 92 Non-Rebreather 15.0 100 11/29/17 16:00 94 11/29/17 16:00 97.8 97 19 96/79 100 Non-Rebreather 15.0 97.8 11/29/17 15:15 102 16 96 Non-Rebreather 15.0 100 11/29/17 15:08 98 16 88 Non-Rebreather 15.0 100 11/29/17 12:00 98.4 97 19 98/56 100 Non-Rebreather 15.0 98.4 11/29/17 12:00 94 11/29/17 11:43 91 16 97 Non-Rebreather 15.0 100 11/29/17 11:30 95 16 93 Non-Rebreather 15.0 100 Height (Feet): 5 Height (Inches): 6.00 Weight (Pounds): 129 Objective HEENT: anicteric Respiratory/Chest: normal breath sounds Cardiovascular: regular rhythm Abdomen: tender Laboratory Tests Test 11/30/17 04:00 White Blood Count 12.1 K/UL (4.8-10.8) H Red Blood Count 3.84 M/UL (4.20-5.40) L Hemoglobin 11.3 G/DL (12.0-16.0) L Hematocrit 35.4 % (37.0-47.0) L Mean Corpuscular Volume 92 FL (80-99) Mean Corpuscular Hemoglobin 29.4 PG (27.0-31.0) Mean Corpuscular Hemoglobin Concent 31.9 G/DL (32.0-36.0) L Red Cell Distribution Width 15.2 % (11.6-14.8) H Platelet Count 65 K/UL (150-450) L Mean Platelet Volume 8.8 FL (6.5-10.1) Neutrophils (%) (Auto) % (45.0-75.0) Lymphocytes (%) (Auto) % (20.0-45.0) Monocytes (%) (Auto) % (1.0-10.0) Eosinophils (%) (Auto) % (0.0-3.0) Basophils (%) (Auto) % (0.0-2.0) Differential Total Cells Counted 100 Neutrophils % (Manual) 68 % (45-75) Lymphocytes % (Manual) 10 % (20-45) L Monocytes % (Manual) 5 % (1-10) Eosinophils % (Manual) 4 % (0-3) H Basophils % (Manual) 0 % (0-2) Band Neutrophils 13 % (0-8) H Nucleated Red Blood Cells 2 /100 WBC Platelet Estimate Decreased L Platelet Morphology Normal Hypochromasia 1+ Anisocytosis 1+ Sodium Level 152 MMOL/L (136-145) H Potassium Level 3.5 MMOL/L (3.5-5.1) Chloride Level 114 MMOL/L (98-107) H Carbon Dioxide Level 31 MMOL/L (21-32) Anion Gap 7 mmol/L (5-15) Blood Urea Nitrogen 31 mg/dL (7-18) H Creatinine 1.1 MG/DL (0.55-1.30) Estimat Glomerular Filtration Rate > 60 mL/min (>60) Glucose Level 119 MG/DL (74-106) H Calcium Level 9.4 MG/DL (8.5-10.1) Current Medications Medications (Trade) Dose Ordered Sig/Vaibhav Route PRN Reason Start Time Stop Time Status Last Admin Dose Admin Acetaminophen (Tylenol) 650 mg Q4H PRN ORAL fever (temp>100.5F) 11/25/17 13:30 12/11/17 13:29 11/26/17 06:22 Acetaminophen (Tylenol) 650 mg Q4H PRN RECTAL Mild Pain (Pain Scale 1-3) 11/27/17 00:00 12/27/17 00:00 11/27/17 09:44 Acetaminophen/ Hydrocodone Bitart ([place] 10/325) 1 tab Q4H PRN ORAL Moderate Pain (Pain Scale 4-6) 11/26/17 09:30 12/03/17 09:29 Chlorhexidine Gluconate (Leah-Hex 2%) 1 applic DAILY@2000 TOPIC 11/28/17 20:00 12/28/17 19:59 11/29/17 21:01 Dextrose 1,000 ml @ 100 mls/hr Q10H IV 11/27/17 10:00 12/27/17 09:59 11/30/17 09:29 Dextrose (Dextrose 50%) 50 ml STAT PRN IV Hypoglycemia BS<60mg/dL 11/25/17 13:30 12/25/17 13:29 Ertapenem 1 gm/ Sodium Chloride 55 ml @ 110 mls/hr Q24H IVPB 11/29/17 21:00 12/04/17 20:59 11/29/17 21:02 Levalbuterol HCl (Xopenex) 0.625 mg Q4HRT HHN 11/28/17 11:00 11/30/17 10:59 11/30/17 07:09 Levetiracetam (Keppra) 1,000 mg EVERY 8 HOURS ORAL 11/26/17 09:00 12/26/17 08:59 Levothyroxine Sodium (Synthroid) 75 mcg ACBREAKFAST ORAL 11/26/17 06:30 12/12/17 06:29 11/26/17 06:21 Nitroglycerin (Ntg) 0.4 mg Q5M X 3 DOSES PRN SL Prn Chest Pain 11/25/17 12:15 12/11/17 10:59 11/26/17 01:53 Ondansetron HCl (Zofran) 4 mg Q6H PRN IVP Nausea & Vomiting 11/25/17 14:30 12/11/17 20:29 11/26/17 00:40 Vancomycin HCl (Vanco rx to dose) 1 ea DAILY PRN MISC Per rx protocol 11/27/17 11:45 12/27/17 11:44 Vancomycin/Sodium Chloride 250 ml @ 166.667 mls/hr Q24H IVPB 11/28/17 13:00 12/03/17 12:59 11/29/17 12:49 Kathleen Lafleur M.D. November 30, 2017 10:47
--- NOTE | 2017-11-30 11:06 | Pulmonology Progress Note ---
Assessment/Plan Problems: (1) Metastatic cancer (2) Malignant pleural effusion (3) Chronic pain disorder (4) IBD (inflammatory bowel disease) (5) Interstitial lung disease (6) COPD (chronic obstructive pulmonary disease) Assessment/Plan on 100% NRM respiratory treatment titrate fio3 to sat of 92 family doesn't want NG tube feeding continue current symptomatic treatment oncology on the case already and recommending comfort care, not a candidate for chemotherapy. pain management renal function improving with D5W at 100 cc/hour private room dc planning preferably with hospice. Subjective ROS Limited/Unobtainable: No Constitutional: Reports: no symptoms HEENT: Repors: no symptoms Respiratory: Reports: no symptoms Allergies: Coded Allergies: No Known Allergies (Verified , 05/21/06) Objective Last 24 Hour Vital Signs Date Time Temp Pulse Resp B/P (MAP) Pulse Ox O2 Delivery O2 Flow Rate FiO2 11/30/17 08:00 97.8 97 20 99/54 99 Non-Rebreather 15.0 97 97.8 11/30/17 08:00 94 11/30/17 07:20 97 18 95 Non-Rebreather 15.0 100 11/30/17 07:09 Non-Rebreather 15.0 100 11/30/17 07:09 95 18 93 Non-Rebreather 15.0 100 11/30/17 07:09 93 Non-Rebreather 15.0 100 11/30/17 04:00 101 11/30/17 04:00 98.0 99 21 95/56 98 Non-Rebreather 15.0 100 98.0 11/30/17 02:57 96 18 95 Non-Rebreather 15.0 100 11/30/17 02:47 98 18 95 Non-Rebreather 15.0 100 11/30/17 00:00 98.1 95 22 104/63 95 Non-Rebreather 15.0 100 98.1 11/29/17 23:26 93 18 93 Non-Rebreather 15.0 100 11/29/17 23:19 96 18 96 Non-Rebreather 15.0 100 11/29/17 20:00 99 11/29/17 20:00 97.4 99 21 104/65 93 Non-Rebreather 15.0 100 97.4 11/29/17 19:21 99 16 91 Non-Rebreather 15.0 100 11/29/17 19:16 Non-Rebreather 15.0 100 11/29/17 19:16 93 Non-Rebreather 15.0 100 11/29/17 19:13 93 18 92 Non-Rebreather 15.0 100 11/29/17 16:00 94 11/29/17 16:00 97.8 97 19 96/79 100 Non-Rebreather 15.0 97.8 11/29/17 15:15 102 16 96 Non-Rebreather 15.0 100 11/29/17 15:08 98 16 88 Non-Rebreather 15.0 100 11/29/17 12:00 98.4 97 19 98/56 100 Non-Rebreather 15.0 98.4 11/29/17 12:00 94 11/29/17 11:43 91 16 97 Non-Rebreather 15.0 100 11/29/17 11:30 95 16 93 Non-Rebreather 15.0 100 Intake and Output 11/29/17 11/30/17 19:00 07:00 Intake Total 1233.334 ml 1135 ml Balance 1233.334 ml 1135 ml IV Total 1233.334 ml 1135 ml # Voids 3 2 Objective General Appearance: cachectic HEENT: normocephalic, atraumatic Respiratory/Chest: chest wall non-tender, lungs clear Cardiovascular: normal peripheral pulses, normal rate, regular rhythm Abdomen: normal bowel sounds, soft, non tender, no organomegaly, non distended Extremities: no cyanosis, no clubbing, no edema Skin: no rash, no lesions 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 Laboratory Tests 11/30/17 04:00: White Blood Count 12.1H, Red Blood Count 3.84L, Hemoglobin 11.3L, Hematocrit 35.4L, Mean Corpuscular Volume 92, Mean Corpuscular Hemoglobin 29.4, Mean Corpuscular Hemoglobin Concent 31.9L, Red Cell Distribution Width 15.2H, Platelet Count 65L, Mean Platelet Volume 8.8, Neutrophils (%) (Auto) , Lymphocytes (%) (Auto) , Monocytes (%) (Auto) , Eosinophils (%) (Auto) , Basophils (%) (Auto) , Differential Total Cells Counted 100, Neutrophils % ( Manual) 68, Lymphocytes % (Manual) 10L, Monocytes % (Manual) 5, Eosinophils % ( Manual) 4H, Basophils % (Manual) 0, Band Neutrophils 13H, Nucleated Red Blood Cells 2, Platelet Estimate DecreasedL, Platelet Morphology Normal, Hypochromasia 1+, Anisocytosis 1+, Sodium Level 152H, Potassium Level 3.5, Chloride Level 114H, Carbon Dioxide Level 31, Anion Gap 7, Blood Urea Nitrogen 31H, Creatinine 1.1, Estimat Glomerular Filtration Rate > 60, Glucose Level 119H , Calcium Level 9.4 Current Medications Medications (Trade) Dose Ordered Sig/Vaibhav Route PRN Reason Start Time Stop Time Status Last Admin Dose Admin Acetaminophen (Tylenol) 650 mg Q4H PRN ORAL fever (temp>100.5F) 11/25/17 13:30 12/11/17 13:29 11/26/17 06:22 Acetaminophen (Tylenol) 650 mg Q4H PRN RECTAL Mild Pain (Pain Scale 1-3) 11/27/17 00:00 12/27/17 00:00 11/27/17 09:44 Acetaminophen/ Hydrocodone Bitart ([place] 10/325) 1 tab Q4H PRN ORAL Moderate Pain (Pain Scale 4-6) 11/26/17 09:30 12/03/17 09:29 Chlorhexidine Gluconate (Leah-Hex 2%) 1 applic DAILY@2000 TOPIC 11/28/17 20:00 12/28/17 19:59 11/29/17 21:01 Dextrose 1,000 ml @ 100 mls/hr Q10H IV 11/27/17 10:00 12/27/17 09:59 11/30/17 09:29 Dextrose (Dextrose 50%) 50 ml STAT PRN IV Hypoglycemia BS<60mg/dL 11/25/17 13:30 12/25/17 13:29 Ertapenem 1 gm/ Sodium Chloride 55 ml @ 110 mls/hr Q24H IVPB 11/29/17 21:00 12/04/17 20:59 11/29/17 21:02 Levetiracetam (Keppra) 1,000 mg EVERY 8 HOURS ORAL 11/26/17 09:00 12/26/17 08:59 Levothyroxine Sodium (Synthroid) 75 mcg ACBREAKFAST ORAL 11/26/17 06:30 12/12/17 06:29 11/26/17 06:21 Nitroglycerin (Ntg) 0.4 mg Q5M X 3 DOSES PRN SL Prn Chest Pain 11/25/17 12:15 12/11/17 10:59 11/26/17 01:53 Ondansetron HCl (Zofran) 4 mg Q6H PRN IVP Nausea & Vomiting 11/25/17 14:30 12/11/17 20:29 11/26/17 00:40 Vancomycin HCl (Vanco rx to dose) 1 ea DAILY PRN MISC Per rx protocol 11/27/17 11:45 12/27/17 11:44 Vancomycin/Sodium Chloride 250 ml @ 166.667 mls/hr Q24H IVPB 11/28/17 13:00 12/03/17 12:59 11/29/17 12:49 Rob Wagner MD November 30, 2017 11:06
[2017-11-30 12:00] VITALS: BP 98/56
[2017-11-30] MEDS: Vancomycin 750mg/NS 250ml IVPB SCH (13:00)
--- NOTE | 2017-11-30 14:09 | GI Progress Note ---
Assessment/Plan Problems: (1) Crohn's disease ICD Codes: K50.90 - Crohn's disease SNOMED: 09816392 Qualifiers: Qualified Codes: K50.919 - Crohn's disease, unspecified, with unspecified complications (2) Opioid dependence ICD Codes: F11.20 - Opioid dependence SNOMED: 87804041 (3) SBO (small bowel obstruction) ICD Codes: K56.609 - Unspecified intestinal obstruction, unspecified as to partial versus complete obstruction SNOMED: 962564665 (4) Chronic abdominal pain Status: stable Status Narrative Discussed with Dr. Gallegos. Assessment/Plan CT AP reviewed >> Evidence of disseminated malignancy, with large left pulmonary hilar mass or adenopathy, extensive left hilar and mediastinal adenopathy, multiple pleural- based masses on the left, multiple masses within the liver, and retroperitoneal lymphadenopathy. Recommendations now DNI/DNR fu oncology recs >>Do not recommend any further diagnosis/tissue given poor state, is not a chemotherapy candidate pain mgmt poor prognosis The patient was seen and examined at bedside and all new and available data was reviewed in the patients chart. I agree with the above findings, impression and plan. (Patient seen earlier today. Signature stamp does not reflect patient encounter time.). - Skyler Gallegos MD Subjective Subjective generalized pain Objective Last 24 Hour Vital Signs Date Time Temp Pulse Resp B/P (MAP) Pulse Ox O2 Delivery O2 Flow Rate FiO2 11/30/17 11:20 Non-Rebreather 11/30/17 11:20 Non-Rebreather 11/30/17 08:00 97.8 97 20 99/54 99 Non-Rebreather 15.0 97 97.8 11/30/17 08:00 94 11/30/17 07:20 97 18 95 Non-Rebreather 15.0 100 11/30/17 07:09 Non-Rebreather 15.0 100 11/30/17 07:09 95 18 93 Non-Rebreather 15.0 100 11/30/17 07:09 93 Non-Rebreather 15.0 100 11/30/17 04:00 101 11/30/17 04:00 98.0 99 21 95/56 98 Non-Rebreather 15.0 100 98.0 11/30/17 02:57 96 18 95 Non-Rebreather 15.0 100 11/30/17 02:47 98 18 95 Non-Rebreather 15.0 100 11/30/17 00:00 98.1 95 22 104/63 95 Non-Rebreather 15.0 100 98.1 11/29/17 23:26 93 18 93 Non-Rebreather 15.0 100 11/29/17 23:19 96 18 96 Non-Rebreather 15.0 100 11/29/17 20:00 99 11/29/17 20:00 97.4 99 21 104/65 93 Non-Rebreather 15.0 100 97.4 11/29/17 19:21 99 16 91 Non-Rebreather 15.0 100 11/29/17 19:16 Non-Rebreather 15.0 100 11/29/17 19:16 93 Non-Rebreather 15.0 100 11/29/17 19:13 93 18 92 Non-Rebreather 15.0 100 11/29/17 16:00 94 11/29/17 16:00 97.8 97 19 96/79 100 Non-Rebreather 15.0 97.8 11/29/17 15:15 102 16 96 Non-Rebreather 15.0 100 11/29/17 15:08 98 16 88 Non-Rebreather 15.0 100 Intake and Output 11/29/17 11/30/17 19:00 07:00 Intake Total 1233.334 ml 1135 ml Balance 1233.334 ml 1135 ml IV Total 1233.334 ml 1135 ml # Voids 3 2 Laboratory Tests Test 11/30/17 04:00 11/30/17 13:05 White Blood Count 12.1 K/UL (4.8-10.8) H Red Blood Count 3.84 M/UL (4.20-5.40) L Hemoglobin 11.3 G/DL (12.0-16.0) L Hematocrit 35.4 % (37.0-47.0) L Mean Corpuscular Volume 92 FL (80-99) Mean Corpuscular Hemoglobin 29.4 PG (27.0-31.0) Mean Corpuscular Hemoglobin Concent 31.9 G/DL (32.0-36.0) L Red Cell Distribution Width 15.2 % (11.6-14.8) H Platelet Count 65 K/UL (150-450) L Mean Platelet Volume 8.8 FL (6.5-10.1) Neutrophils (%) (Auto) % (45.0-75.0) Lymphocytes (%) (Auto) % (20.0-45.0) Monocytes (%) (Auto) % (1.0-10.0) Eosinophils (%) (Auto) % (0.0-3.0) Basophils (%) (Auto) % (0.0-2.0) Differential Total Cells Counted 100 Neutrophils % (Manual) 68 % (45-75) Lymphocytes % (Manual) 10 % (20-45) L Monocytes % (Manual) 5 % (1-10) Eosinophils % (Manual) 4 % (0-3) H Basophils % (Manual) 0 % (0-2) Band Neutrophils 13 % (0-8) H Nucleated Red Blood Cells 2 /100 WBC Platelet Estimate Decreased L Platelet Morphology Normal Hypochromasia 1+ Anisocytosis 1+ Sodium Level 152 MMOL/L (136-145) H Potassium Level 3.5 MMOL/L (3.5-5.1) Chloride Level 114 MMOL/L (98-107) H Carbon Dioxide Level 31 MMOL/L (21-32) Anion Gap 7 mmol/L (5-15) Blood Urea Nitrogen 31 mg/dL (7-18) H Creatinine 1.1 MG/DL (0.55-1.30) Estimat Glomerular Filtration Rate > 60 mL/min (>60) Glucose Level 119 MG/DL (74-106) H Calcium Level 9.4 MG/DL (8.5-10.1) Vancomycin Level Trough 10.2 ug/mL (5.0-12.0) Height (Feet): 5 Height (Inches): 6.00 Weight (Pounds): 129 General Appearance: alert Cardiovascular: normal rate Respiratory/Chest: lungs clear, normal breath sounds Abdominal Exam: normal bowel sounds, non tender, soft Genitourinary/Rectal: normal rectal exam Tara Scott N.P. November 30, 2017 14:09
[2017-11-30] MEDS ORDERED: Vancomycin 1gm/D5W 275ml IVPB SCH ×2 (15:00)
--- NOTE | 2017-11-30 15:14 | General Progress Note ---
Assessment/Plan Problem List: (1) Crohn's disease ICD Codes: K50.90 - Crohn's disease SNOMED: 14751975 Qualifiers: Qualified Codes: K50.919 - Crohn's disease, unspecified, with unspecified complications (2) Opioid dependence ICD Codes: F11.20 - Opioid dependence SNOMED: 83662448 (3) Intractable abdominal pain ICD Codes: R10.9 - Unspecified abdominal pain SNOMED: 84118082, 793283712 (4) COPD (chronic obstructive pulmonary disease) ICD Codes: J44.9 - Chronic obstructive pulmonary disease SNOMED: 24268695 (5) Shortness of breath (6) SOB (shortness of breath) ICD Codes: R06.02 - Shortness of breath SNOMED: 721494360 (7) UTI (urinary tract infection) ICD Codes: N39.0 - Urinary tract infection, site not specified SNOMED: 23561934 (8) Lung mass ICD Codes: R91.8 - Other nonspecific abnormal finding of lung field SNOMED: 473480708 (9) Tachycardia ICD Codes: R00.0 - Tachycardia, unspecified SNOMED: 1187280 Status: unchanged Assessment/Plan ot pt diet pain control sx eval cbc bmp am heme f/u cardio eval, ltach eval Subjective Constitutional: Reports: weakness Allergies: Coded Allergies: No Known Allergies (Verified , 05/21/06) All Systems: reviewed and negative except above Subjective 02 mask sleepy Objective Last 24 Hour Vital Signs Date Time Temp Pulse Resp B/P (MAP) Pulse Ox O2 Delivery O2 Flow Rate FiO2 11/30/17 11:20 Non-Rebreather 11/30/17 11:20 Non-Rebreather 11/30/17 08:00 97.8 97 20 99/54 99 Non-Rebreather 15.0 97 97.8 11/30/17 08:00 94 11/30/17 07:20 97 18 95 Non-Rebreather 15.0 100 11/30/17 07:09 Non-Rebreather 15.0 100 11/30/17 07:09 95 18 93 Non-Rebreather 15.0 100 11/30/17 07:09 93 Non-Rebreather 15.0 100 11/30/17 04:00 101 11/30/17 04:00 98.0 99 21 95/56 98 Non-Rebreather 15.0 100 98.0 11/30/17 02:57 96 18 95 Non-Rebreather 15.0 100 11/30/17 02:47 98 18 95 Non-Rebreather 15.0 100 11/30/17 00:00 98.1 95 22 104/63 95 Non-Rebreather 15.0 100 98.1 11/29/17 23:26 93 18 93 Non-Rebreather 15.0 100 11/29/17 23:19 96 18 96 Non-Rebreather 15.0 100 11/29/17 20:00 99 11/29/17 20:00 97.4 99 21 104/65 93 Non-Rebreather 15.0 100 97.4 11/29/17 19:21 99 16 91 Non-Rebreather 15.0 100 11/29/17 19:16 Non-Rebreather 15.0 100 11/29/17 19:16 93 Non-Rebreather 15.0 100 11/29/17 19:13 93 18 92 Non-Rebreather 15.0 100 11/29/17 16:00 94 11/29/17 16:00 97.8 97 19 96/79 100 Non-Rebreather 15.0 97.8 11/29/17 15:15 102 16 96 Non-Rebreather 15.0 100 Intake and Output 11/29/17 11/30/17 19:00 07:00 Intake Total 1233.334 ml 1135 ml Balance 1233.334 ml 1135 ml IV Total 1233.334 ml 1135 ml # Voids 3 2 Laboratory Tests 11/30/17 04:00: White Blood Count 12.1H, Red Blood Count 3.84L, Hemoglobin 11.3L, Hematocrit 35.4L, Mean Corpuscular Volume 92, Mean Corpuscular Hemoglobin 29.4, Mean Corpuscular Hemoglobin Concent 31.9L, Red Cell Distribution Width 15.2H, Platelet Count 65L, Mean Platelet Volume 8.8, Neutrophils (%) (Auto) , Lymphocytes (%) (Auto) , Monocytes (%) (Auto) , Eosinophils (%) (Auto) , Basophils (%) (Auto) , Differential Total Cells Counted 100, Neutrophils % ( Manual) 68, Lymphocytes % (Manual) 10L, Monocytes % (Manual) 5, Eosinophils % ( Manual) 4H, Basophils % (Manual) 0, Band Neutrophils 13H, Nucleated Red Blood Cells 2, Platelet Estimate DecreasedL, Platelet Morphology Normal, Hypochromasia 1+, Anisocytosis 1+, Sodium Level 152H, Potassium Level 3.5, Chloride Level 114H, Carbon Dioxide Level 31, Anion Gap 7, Blood Urea Nitrogen 31H, Creatinine 1.1, Estimat Glomerular Filtration Rate > 60, Glucose Level 119H , Calcium Level 9.4 11/30/17 13:05: Vancomycin Level Trough 10.2 Height (Feet): 5 Height (Inches): 6.00 Weight (Pounds): 129 General Appearance: lethargic EENT: normal ENT inspection Neck: normal alignment Cardiovascular: normal peripheral pulses, normal rate, regular rhythm Respiratory/Chest: chest wall non-tender, decreased breath sounds Abdomen: normal bowel sounds, non tender, soft Extremities: normal inspection Edema: no edema noted Arm (L), no edema noted Arm (R), no edema noted Leg (L), no edema noted Leg (R), no edema noted Pedal (L), no edema noted Pedal (R), no edema noted Generalized Neurologic: motor weakness Skin: normal pigmentation, warm/dry BAYRON BENEDICT November 30, 2017 15:14
[2017-11-30 16:00] VITALS: BP 96/62
[2017-11-30] MEDS ORDERED: Levalbuterol Inh UD 1.25mg/0.5ml HHN SCH ×2 (16:00→19:00)
--- NOTE | 2017-11-30 16:29 | General Progress Note ---
Assessment/Plan Assessment/Plan IMPRESSION/RECS: #. Stage IV malignancy, potentially lung cancer given pattern of spread, proven malignancy on pleural fluid. --> Has a left lower lobe lung mass. Left inferior hilar mass. Left pleural base lung mass. Left pleural effusion. --> Retroperitoneal lymphadenopathy. Multiple low-attenuation liver lesions. --> Discussed with son, RN, Primary MD, given poor performance status recommend palliative/hospice care --> Do not recommend any further diagnosis/tissue given poor state, is not a chemotherapy candidate #. Anemia due to underlying malignancy - continue to closely monitor --> hgb goal is >7. Transfuse if needed. --> Hemoglobin stable at this time. #. Leukocytosis. --> Monitor and trend cbc. #. Crohn disease. #. Opioid dependence. #. Chronic obstructive pulmonary disease. #. History of smoking. #. Emphysema. #. Perianal abscess. #. Intractable abdominal pain. #. Status post morphine pump placement. #. Status post exploratory laparotomy. #. Pneumoperitoneum. #. Tachycardia. Subjective Date patient seen: November 29, 2017 Constitutional: Denies: no symptoms, chills, diaphoresis, fever, malaise, weakness, other HEENT: Denies: no symptoms, eye pain, blurred vision, tearing, double vision, ear pain, ear discharge, nose pain, nose congestion, throat pain, throat swelling, mouth pain, mouth swelling, other Cardiovascular: Denies: no symptoms, chest pain, edema, irregular heart rate, lightheadedness, palpitations, syncope, other Respiratory: Denies: no symptoms, cough, orthopnea, shortness of breath, SOB with excertion, SOB at rest, sputum, stridor, wheezing, other Gastrointestinal/Abdominal: Denies: no symptoms, abdomen distended, abdominal pain, black stools, tarry stools, blood in stool, constipated, diarrhea, difficulty swallowing, nausea, poor appetite, poor fluid intake, rectal bleeding , vomiting, other Genitourinary: Denies: no symptoms, burning, discharge, frequency, flank pain, hematuria, incontinence, pain, urgency, other Neurologic/Psychiatric: Denies: no symptoms, anxiety, depressed, emotional problems, headache, numbness, paresthesia, pre-existing deficit, seizure, tingling, tremors, weakness, other Hematologic/Lymphatic: Reports: anemia Allergies: Coded Allergies: No Known Allergies (Verified , 05/21/06) Subjective Lethargic. Pain control. Comfort care. Leukocytosis. Objective Last 24 Hour Vital Signs Date Time Temp Pulse Resp B/P (MAP) Pulse Ox O2 Delivery O2 Flow Rate FiO2 11/30/17 16:08 94 18 91 Non-Rebreather 15.0 100 11/30/17 12:00 98.6 96 20 98/56 99 Non-Rebreather 15.0 99 98.6 11/30/17 11:53 96 11/30/17 11:20 Non-Rebreather 11/30/17 11:20 Non-Rebreather 11/30/17 08:00 97.8 97 20 99/54 99 Non-Rebreather 15.0 97 97.8 11/30/17 08:00 94 11/30/17 07:20 97 18 95 Non-Rebreather 15.0 100 11/30/17 07:09 Non-Rebreather 15.0 100 11/30/17 07:09 95 18 93 Non-Rebreather 15.0 100 11/30/17 07:09 93 Non-Rebreather 15.0 100 11/30/17 04:00 101 11/30/17 04:00 98.0 99 21 95/56 98 Non-Rebreather 15.0 100 98.0 11/30/17 02:57 96 18 95 Non-Rebreather 15.0 100 11/30/17 02:47 98 18 95 Non-Rebreather 15.0 100 11/30/17 00:00 98.1 95 22 104/63 95 Non-Rebreather 15.0 100 98.1 11/29/17 23:26 93 18 93 Non-Rebreather 15.0 100 11/29/17 23:19 96 18 96 Non-Rebreather 15.0 100 11/29/17 20:00 99 11/29/17 20:00 97.4 99 21 104/65 93 Non-Rebreather 15.0 100 97.4 11/29/17 19:21 99 16 91 Non-Rebreather 15.0 100 11/29/17 19:16 Non-Rebreather 15.0 100 11/29/17 19:16 93 Non-Rebreather 15.0 100 5/7/18 19:13 93 18 92 Non-Rebreather 15.0 100 Intake and Output 11/29/17 11/30/17 19:00 07:00 Intake Total 1233.334 ml 1235 ml Balance 1233.334 ml 1235 ml IV Total 1233.334 ml 1235 ml # Voids 3 2 Laboratory Tests 11/30/17 04:00: White Blood Count 12.1H, Red Blood Count 3.84L, Hemoglobin 11.3L, Hematocrit 35.4L, Mean Corpuscular Volume 92, Mean Corpuscular Hemoglobin 29.4, Mean Corpuscular Hemoglobin Concent 31.9L, Red Cell Distribution Width 15.2H, Platelet Count 65L, Mean Platelet Volume 8.8, Neutrophils (%) (Auto) , Lymphocytes (%) (Auto) , Monocytes (%) (Auto) , Eosinophils (%) (Auto) , Basophils (%) (Auto) , Differential Total Cells Counted 100, Neutrophils % ( Manual) 68, Lymphocytes % (Manual) 10L, Monocytes % (Manual) 5, Eosinophils % ( Manual) 4H, Basophils % (Manual) 0, Band Neutrophils 13H, Nucleated Red Blood Cells 2, Platelet Estimate DecreasedL, Platelet Morphology Normal, Hypochromasia 1+, Anisocytosis 1+, Sodium Level 152H, Potassium Level 3.5, Chloride Level 114H, Carbon Dioxide Level 31, Anion Gap 7, Blood Urea Nitrogen 31H, Creatinine 1.1, Estimat Glomerular Filtration Rate > 60, Glucose Level 119H , Calcium Level 9.4 11/30/17 13:05: Vancomycin Level Trough 10.2 Height (Feet): 5 Height (Inches): 6.00 Weight (Pounds): 129 General Appearance: lethargic Respiratory/Chest: decreased breath sounds Abdomen: normal bowel sounds, non tender Connor Bains MD November 30, 2017 16:29
[2017-11-30] MEDS ORDERED: Nitroglycerin Subl 0.4mg tab SL PRN (18:30)
[2017-11-30] MEDS ORDERED: Acetaminophen 650 MG SUPP RECTAL PRN (18:30)
[2017-11-30] MEDS ORDERED: HYDROcodone/Acetamin 10/325 tab ORAL PRN (19:00)
[2017-11-30] MEDS ORDERED: Vancomycin 1 GM in D5W 275 ML IVPB SCH (19:00)
--- NOTE | 2017-11-30 19:28 | Nephrology Progress Note ---
Assessment/Plan Assessment 1. Hypernatremia 2. Acute renal failure. 3. Malnutrition. 4. Failure to thrive. 5. Metastatic CA. 6. Recurrent pleural effusion. 7. Stage 4 Metastatic CA. Plan plan 'to continue ivf monitoring renal function replace electrolyte as need it avoid NSIAD Subjective ROS Limited/Unobtainable: Yes HEENT: Reports: no symptoms Subjective no acute events overnight Objective Objective Last 24 Hour Vital Signs Date Time Temp Pulse Resp B/P (MAP) Pulse Ox O2 Delivery O2 Flow Rate FiO2 11/30/17 18:37 98.9 11/30/17 16:18 97 18 94 Non-Rebreather 15.0 100 11/30/17 16:08 94 18 91 Non-Rebreather 15.0 100 11/30/17 16:00 98.9 101 21 96/62 98 Non-Rebreather 15.0 100 98.9 11/30/17 16:00 96 11/30/17 12:00 98.6 96 20 98/56 99 Non-Rebreather 15.0 100 98.6 11/30/17 11:53 96 11/30/17 11:20 Non-Rebreather 11/30/17 11:20 Non-Rebreather 11/30/17 08:00 97.8 97 20 99/54 99 Non-Rebreather 15.0 100 97.8 11/30/17 08:00 94 11/30/17 07:20 97 18 95 Non-Rebreather 15.0 100 11/30/17 07:09 Non-Rebreather 15.0 100 11/30/17 07:09 95 18 93 Non-Rebreather 15.0 100 11/30/17 07:09 93 Non-Rebreather 15.0 100 11/30/17 04:00 101 11/30/17 04:00 98.0 99 21 95/56 98 Non-Rebreather 15.0 100 98.0 11/30/17 02:57 96 18 95 Non-Rebreather 15.0 100 11/30/17 02:47 98 18 95 Non-Rebreather 15.0 100 11/30/17 00:00 98.1 95 22 104/63 95 Non-Rebreather 15.0 100 98.1 11/29/17 23:26 93 18 93 Non-Rebreather 15.0 100 11/29/17 23:19 96 18 96 Non-Rebreather 15.0 100 11/29/17 20:00 99 11/29/17 20:00 97.4 99 21 104/65 93 Non-Rebreather 15.0 100 97.4 11/29/17 19:21 99 16 91 Non-Rebreather 15.0 100 Intake and Output 11/29/17 11/30/17 19:00 07:00 Intake Total 1233.334 ml 1235 ml Balance 1233.334 ml 1235 ml IV Total 1233.334 ml 1235 ml # Voids 3 2 Laboratory Tests 11/30/17 04:00: White Blood Count 12.1H, Red Blood Count 3.84L, Hemoglobin 11.3L, Hematocrit 35.4L, Mean Corpuscular Volume 92, Mean Corpuscular Hemoglobin 29.4, Mean Corpuscular Hemoglobin Concent 31.9L, Red Cell Distribution Width 15.2H, Platelet Count 65L, Mean Platelet Volume 8.8, Neutrophils (%) (Auto) , Lymphocytes (%) (Auto) , Monocytes (%) (Auto) , Eosinophils (%) (Auto) , Basophils (%) (Auto) , Differential Total Cells Counted 100, Neutrophils % ( Manual) 68, Lymphocytes % (Manual) 10L, Monocytes % (Manual) 5, Eosinophils % ( Manual) 4H, Basophils % (Manual) 0, Band Neutrophils 13H, Nucleated Red Blood Cells 2, Platelet Estimate DecreasedL, Platelet Morphology Normal, Hypochromasia 1+, Anisocytosis 1+, Sodium Level 152H, Potassium Level 3.5, Chloride Level 114H, Carbon Dioxide Level 31, Anion Gap 7, Blood Urea Nitrogen 31H, Creatinine 1.1, Estimat Glomerular Filtration Rate > 60, Glucose Level 119H , Calcium Level 9.4 11/30/17 13:05: Vancomycin Level Trough 10.2 Height (Feet): 5 Height (Inches): 6.00 Weight (Pounds): 129 Objective HEAD AND NECK: Bitemporal wasting. Extraocular movements intact. Pupils are reactive to light and accommodation. Dry mucous membranes. Currently on non-rebreather mask. LUNGS: Decreased breathing sounds on the both sides. CARDIAC: Regular rate and rhythm. S1 and S2. No murmur. No rub. ABDOMEN: Tender. No guarding or rebound. Bowel sounds decreased. EXTREMITIES: No edema. No clubbing. No cyanosis FAMILIA SHEPHERD November 30, 2017 19:28
[2017-11-30 20:00] VITALS: BP 102/61
[2017-11-30] MEDS ORDERED: Dyna-Hex 2% Top Sol 2oz TOPIC SCH (20:00)
[2017-11-30] MEDS ORDERED: Ertapenem 1 GM in NS 55 ML IVPB SCH (21:00)
--- NOTE | 2017-11-30 23:26 | Cardiology Progress Note ---
Objective Last 24 Hour Vital Signs Date Time Temp Pulse Resp B/P (MAP) Pulse Ox O2 Delivery O2 Flow Rate FiO2 11/30/17 23:09 99 14 88 Non-Rebreather 15.0 100 11/30/17 23:09 Non-Rebreather 15.0 100 11/30/17 20:00 97.3 101 22 102/61 94 97.3 11/30/17 19:49 98.9 11/30/17 19:09 102 22 90 Non-Rebreather 15.0 100 11/30/17 19:09 Non-Rebreather 15.0 100 11/30/17 19:00 Non-Rebreather 15.0 100 11/30/17 19:00 90 Non-Rebreather 15.0 100 11/30/17 18:37 98.9 11/30/17 16:18 97 18 94 Non-Rebreather 15.0 100 11/30/17 16:08 94 18 91 Non-Rebreather 15.0 100 11/30/17 16:00 98.9 101 21 96/62 98 Non-Rebreather 15.0 100 98.9 11/30/17 16:00 96 11/30/17 12:00 98.6 96 20 98/56 99 Non-Rebreather 15.0 100 98.6 11/30/17 11:53 96 11/30/17 11:20 Non-Rebreather 11/30/17 11:20 Non-Rebreather 11/30/17 08:00 97.8 97 20 99/54 99 Non-Rebreather 15.0 100 97.8 11/30/17 08:00 94 11/30/17 07:20 97 18 95 Non-Rebreather 15.0 100 11/30/17 07:09 Non-Rebreather 15.0 100 11/30/17 07:09 95 18 93 Non-Rebreather 15.0 100 11/30/17 07:09 93 Non-Rebreather 15.0 100 11/30/17 04:00 101 11/30/17 04:00 98.0 99 21 95/56 98 Non-Rebreather 15.0 100 98.0 11/30/17 02:57 96 18 95 Non-Rebreather 15.0 100 11/30/17 02:47 98 18 95 Non-Rebreather 15.0 100 11/30/17 00:00 98.1 95 22 104/63 95 Non-Rebreather 15.0 100 98.1 11/29/17 23:26 93 18 93 Non-Rebreather 15.0 100 Intake and Output 11/29/17 11/30/17 19:00 07:00 Intake Total 1233.334 ml 1235 ml Balance 1233.334 ml 1235 ml IV Total 1233.334 ml 1235 ml # Voids 3 2 2D Echo: EF 65%, RVSP 92 mmHg Laboratory Tests Test 11/30/17 04:00 11/30/17 13:05 White Blood Count 12.1 K/UL (4.8-10.8) H Red Blood Count 3.84 M/UL (4.20-5.40) L Hemoglobin 11.3 G/DL (12.0-16.0) L Hematocrit 35.4 % (37.0-47.0) L Mean Corpuscular Volume 92 FL (80-99) Mean Corpuscular Hemoglobin 29.4 PG (27.0-31.0) Mean Corpuscular Hemoglobin Concent 31.9 G/DL (32.0-36.0) L Red Cell Distribution Width 15.2 % (11.6-14.8) H Platelet Count 65 K/UL (150-450) L Mean Platelet Volume 8.8 FL (6.5-10.1) Neutrophils (%) (Auto) % (45.0-75.0) Lymphocytes (%) (Auto) % (20.0-45.0) Monocytes (%) (Auto) % (1.0-10.0) Eosinophils (%) (Auto) % (0.0-3.0) Basophils (%) (Auto) % (0.0-2.0) Differential Total Cells Counted 100 Neutrophils % (Manual) 68 % (45-75) Lymphocytes % (Manual) 10 % (20-45) L Monocytes % (Manual) 5 % (1-10) Eosinophils % (Manual) 4 % (0-3) H Basophils % (Manual) 0 % (0-2) Band Neutrophils 13 % (0-8) H Nucleated Red Blood Cells 2 /100 WBC Platelet Estimate Decreased L Platelet Morphology Normal Hypochromasia 1+ Anisocytosis 1+ Sodium Level 152 MMOL/L (136-145) H Potassium Level 3.5 MMOL/L (3.5-5.1) Chloride Level 114 MMOL/L (98-107) H Carbon Dioxide Level 31 MMOL/L (21-32) Anion Gap 7 mmol/L (5-15) Blood Urea Nitrogen 31 mg/dL (7-18) H Creatinine 1.1 MG/DL (0.55-1.30) Estimat Glomerular Filtration Rate > 60 mL/min (>60) Glucose Level 119 MG/DL (74-106) H Calcium Level 9.4 MG/DL (8.5-10.1) Vancomycin Level Trough 10.2 ug/mL (5.0-12.0) Objective 1. Sinus tachycardia due to hypoxemia and malignancy. Echocardiogram showed EF 65%. 2. Malignant pleural effusion and metastatic cancer, S/p Left Thoracentesis on 11/12/17 3. Lung mass, DNR/DNI, currently severe respiratory distress. 4. Severe pulmonary HTN 5. Subcoma DEX ARMANDO November 30, 2017 23:26
--- NOTE | 2017-11-30 23:55 | General Progress Note ---
Assessment/Plan Assessment/Plan IMPRESSION/RECS: #. Stage IV malignancy, potentially lung cancer given pattern of spread, proven malignancy on pleural fluid. --> Has a left lower lobe lung mass. Left inferior hilar mass. Left pleural base lung mass. Left pleural effusion. --> Retroperitoneal lymphadenopathy. Multiple low-attenuation liver lesions. --> Discussed with son, RN, Primary MD, given poor performance status recommend palliative/hospice care --> Do not recommend any further diagnosis/tissue given poor state, is not a chemotherapy candidate #. Anemia due to underlying malignancy - continue to closely monitor --> hgb goal is >7. Transfuse if needed. --> Hemoglobin stable at this time. #. Leukocytosis. --> Monitor and trend cbc. #. Crohn disease. #. Opioid dependence. #. Chronic obstructive pulmonary disease. #. History of smoking. #. Emphysema. #. Perianal abscess. #. Intractable abdominal pain. #. Status post morphine pump placement. #. Status post exploratory laparotomy. #. Pneumoperitoneum. #. Tachycardia. Subjective Date patient seen: November 30, 2017 Constitutional: Denies: no symptoms, chills, diaphoresis, fever, malaise, weakness, other HEENT: Denies: no symptoms, eye pain, blurred vision, tearing, double vision, ear pain, ear discharge, nose pain, nose congestion, throat pain, throat swelling, mouth pain, mouth swelling, other Cardiovascular: Denies: no symptoms, chest pain, edema, irregular heart rate, lightheadedness, palpitations, syncope, other Respiratory: Denies: no symptoms, cough, orthopnea, shortness of breath, SOB with excertion, SOB at rest, sputum, stridor, wheezing, other Gastrointestinal/Abdominal: Denies: no symptoms, abdomen distended, abdominal pain, black stools, tarry stools, blood in stool, constipated, diarrhea, difficulty swallowing, nausea, poor appetite, poor fluid intake, rectal bleeding , vomiting, other Genitourinary: Denies: no symptoms, burning, discharge, frequency, flank pain, hematuria, incontinence, pain, urgency, other Neurologic/Psychiatric: Denies: no symptoms, anxiety, depressed, emotional problems, headache, numbness, paresthesia, pre-existing deficit, seizure, tingling, tremors, weakness, other Hematologic/Lymphatic: Reports: anemia Allergies: Coded Allergies: No Known Allergies (Verified , 05/21/06) Subjective Lethargic. Pain control. No fever. Comfort care. Tachycardia. Objective Last 24 Hour Vital Signs Date Time Temp Pulse Resp B/P (MAP) Pulse Ox O2 Delivery O2 Flow Rate FiO2 11/30/17 23:09 99 14 88 Non-Rebreather 15.0 100 11/30/17 23:09 Non-Rebreather 15.0 100 11/30/17 20:00 97.3 101 22 102/61 94 97.3 11/30/17 19:49 98.9 11/30/17 19:09 102 22 90 Non-Rebreather 15.0 100 11/30/17 19:09 Non-Rebreather 15.0 100 11/30/17 19:00 Non-Rebreather 15.0 100 11/30/17 19:00 90 Non-Rebreather 15.0 100 11/30/17 18:37 98.9 11/30/17 16:18 97 18 94 Non-Rebreather 15.0 100 11/30/17 16:08 94 18 91 Non-Rebreather 15.0 100 11/30/17 16:00 98.9 101 21 96/62 98 Non-Rebreather 15.0 100 98.9 11/30/17 16:00 96 11/30/17 12:00 98.6 96 20 98/56 99 Non-Rebreather 15.0 100 98.6 11/30/17 11:53 96 11/30/17 11:20 Non-Rebreather 11/30/17 11:20 Non-Rebreather 11/30/17 08:00 97.8 97 20 99/54 99 Non-Rebreather 15.0 100 97.8 11/30/17 08:00 94 11/30/17 07:20 97 18 95 Non-Rebreather 15.0 100 11/30/17 07:09 Non-Rebreather 15.0 100 11/30/17 07:09 95 18 93 Non-Rebreather 15.0 100 11/30/17 07:09 93 Non-Rebreather 15.0 100 11/30/17 04:00 101 11/30/17 04:00 98.0 99 21 95/56 98 Non-Rebreather 15.0 100 98.0 11/30/17 02:57 96 18 95 Non-Rebreather 15.0 100 11/30/17 02:47 98 18 95 Non-Rebreather 15.0 100 11/30/17 00:00 98.1 95 22 104/63 95 Non-Rebreather 15.0 100 98.1 Intake and Output 11/29/17 11/30/17 19:00 07:00 Intake Total 1233.334 ml 1235 ml Balance 1233.334 ml 1235 ml IV Total 1233.334 ml 1235 ml # Voids 3 2 Laboratory Tests 11/30/17 04:00: White Blood Count 12.1H, Red Blood Count 3.84L, Hemoglobin 11.3L, Hematocrit 35.4L, Mean Corpuscular Volume 92, Mean Corpuscular Hemoglobin 29.4, Mean Corpuscular Hemoglobin Concent 31.9L, Red Cell Distribution Width 15.2H, Platelet Count 65L, Mean Platelet Volume 8.8, Neutrophils (%) (Auto) , Lymphocytes (%) (Auto) , Monocytes (%) (Auto) , Eosinophils (%) (Auto) , Basophils (%) (Auto) , Differential Total Cells Counted 100, Neutrophils % ( Manual) 68, Lymphocytes % (Manual) 10L, Monocytes % (Manual) 5, Eosinophils % ( Manual) 4H, Basophils % (Manual) 0, Band Neutrophils 13H, Nucleated Red Blood Cells 2, Platelet Estimate DecreasedL, Platelet Morphology Normal, Hypochromasia 1+, Anisocytosis 1+, Sodium Level 152H, Potassium Level 3.5, Chloride Level 114H, Carbon Dioxide Level 31, Anion Gap 7, Blood Urea Nitrogen 31H, Creatinine 1.1, Estimat Glomerular Filtration Rate > 60, Glucose Level 119H , Calcium Level 9.4 11/30/17 13:05: Vancomycin Level Trough 10.2 Height (Feet): 5 Height (Inches): 6.00 Weight (Pounds): 129 EENT: normal ENT inspection Cardiovascular: tachycardia Respiratory/Chest: lungs clear, normal breath sounds Abdomen: normal bowel sounds, non tender Connor Bains MD November 30, 2017 23:55
[2017-12-01] VITALS: BP 103/68
[2017-12-01] MEDS: Levalbuterol Inh UD 1.25mg/0.5ml HHN SCH ×5 (02:44→19:00)
[2017-12-01 04:00] VITALS: BP 102/58
[2017-12-01] MEDS: levETIRAcetam 500mg/5ml Liquid ORAL SCH ×2 (06:32→13:51)
--- NOTE | 2017-12-01 07:53 | Physician Query ---
--------- THIS DOCUMENT IS A PERMANENT PART OF THE MEDICAL RECORD --------- PLEASE COMPLETE DOCUMENT BEFORE SIGNING Dear Dr. Pandey Date: 12/01/2017 Director [employer] Name: Elsie Chaudhari Director [employer] Phone No.: Exercise your independent professional judgment when responding to the query. Questions asked do not imply a particular answer is desired or expected. We greatly appreciate your clarification on this issue. CLINICAL DOCUMENTATION STATES: Malnutrition, Failure to thrive (Consultation notes 11/27/2017) Malnutrition and failure to thrive was documented in the consultation notes. CLINICAL FINDINGS SHOW: Albumin level since admission: 11/11/2017: 2.3 11/12/2017: 2.2 11/13/2017: 2.3 Please clarify the severity of Malnutrition: [] Mild [] Moderate [] Protein/Calorie Malnutrition [] Protein Malnutrition >Serum albumin 2.8 to 3.4 g/dL or Pre-albumin 5 to 7 mg/dl (3) >Inadequate nutritional intake (1, 2, 3, 4) >NPO > 5 days >Weight loss: 5% in 1 month or 7.5% in 3 months or 10% in 6 months (1,3,4) >BMI 16 to 18.4 or Weight <90 of ideal body weight (1,2,3,4) [] Serum Malnutrition (Protein/Calorie) [] Severe Protein Malnutrition >Serum Albumin < 2.8 g/dL (1,2) >Lymphocytes < 1500/uL (2) >Inadequate nutritional intake3 , high stress e.g. major trauma, sepsis, pancreatitis, stack etc. >Decubitus ulcers (1,2) , skin breakdown(2), easy hair pluckability >Weight <80% standard for height (2) >Triceps skin fold <3 mm2 >Mid-arm muscle circumference <25 cm2 >Creatinine-height index <60% standard (2) _ [] Hypoalbuminemia [] Emancipated w/ Malnutrition [] Kwashiorkor (rare in [place]) [] Marasmus [] Other [] Unable to determine [] Not Applicable Condition Present on Admission: [] Yes [] No [ ] Unable to determine Please also document in your Progress Notes and/or Discharge Summary and indicate if the condition was present on admission. M.D. References: 1 [facility]. (2007). Nutritional support strategy for protein -energy malnutrition in the elderly. Clinical Practice Guidelines. 2 Rajani Galindo (2011). Malnutrition and nutritional assessment. In Hunter Alfred (18th Ed.) Josué's Principle of Internal Medicine ([id number]) [place], [place]: [facility] 3 Kemi Ruiz (2001). Clinical Nutrition: Protein-energy malnutrition in the inpatient. [employer] [employer] Journal, vol. 165 no. 10 (pp. 1204- 6520 ). 4 Nas Milton (2012). Geriactric Nutrition: Nutritional Issues in Older Adults. [email or web address]
[2017-12-01 08:00] VITALS: BP 96/90
[2017-12-01 08:31] LABS: HEMATOCRIT 33.9 % (37.0-47.0); HEMOGLOBIN 10.6 G/DL (12.0-16.0); MEAN CORPUSCULAR VOLUME 92 FL (80-99); PLATELET COUNT 83 K/UL (150-450); RED BLOOD COUNT 3.69 M/UL (4.20-5.40); RED CELL DISTRIBUTION WIDTH 15.2 % (11.6-14.8); WHITE BLOOD COUNT 9.4 K/UL (4.8-10.8)
--- NOTE | 2017-12-01 08:42 | General Progress Note ---
Assessment/Plan Assessment/Plan (1) Chronic abdominal pain (2) Chronic pancreatitis (3) Crohn's disease (4) Herniated nucleus pulposus, lumbar (5) Lumbar spondylosis (6) Radiculopathy of lumbar region (7) Lung mass, Metastatic cancer Pt will be continued on Mosby and pt has intrathecal pump. HOLD OPIOIDS FOR OVERSEDATION OR SBP<90 OR DBP<60 OR O2SAT<92% OR RR<12 Pt was d/w Dr. Malhotra and he concurred. Subjective Date patient seen: December 01, 2017 Time patient seen: 07:00 - am ROS Limited/Unobtainable: Yes Allergies: Coded Allergies: No Known Allergies (Verified , 05/21/06) Subjective In bed no signs of pain or distress. One Mosby was given in last day. Objective Last 24 Hour Vital Signs Date Time Temp Pulse Resp B/P (MAP) Pulse Ox O2 Delivery O2 Flow Rate FiO2 12/01/17 08:14 100 20 100 Non-Rebreather 15.0 100 12/01/17 08:11 Non-Rebreather 15.0 100 12/01/17 08:10 100 Non-Rebreather 15.0 100 12/01/17 08:00 97.4 89 11 96/90 96 Non-Rebreather 15.0 97.4 12/01/17 04:53 Non-Rebreather 15.0 12/01/17 04:00 97.4 98 22 102/58 94 97.4 12/01/17 02:44 Non-Rebreather 15.0 100 12/01/17 02:44 97 12 89 Non-Rebreather 15.0 100 12/01/17 00:00 97.7 100 19 103/68 94 97.7 11/30/17 23:09 99 14 88 Non-Rebreather 15.0 100 11/30/17 23:09 Non-Rebreather 15.0 100 11/30/17 20:00 97.3 101 22 102/61 94 97.3 11/30/17 19:49 98.9 11/30/17 19:09 102 22 90 Non-Rebreather 15.0 100 11/30/17 19:09 Non-Rebreather 15.0 100 11/30/17 19:00 Non-Rebreather 15.0 100 11/30/17 19:00 90 Non-Rebreather 15.0 100 11/30/17 18:37 98.9 11/30/17 16:18 97 18 94 Non-Rebreather 15.0 100 11/30/17 16:08 94 18 91 Non-Rebreather 15.0 100 11/30/17 16:00 98.9 101 21 96/62 98 Non-Rebreather 15.0 100 98.9 11/30/17 16:00 96 11/30/17 12:00 98.6 96 20 98/56 99 Non-Rebreather 15.0 100 98.6 11/30/17 11:53 96 11/30/17 11:20 Non-Rebreather 11/30/17 11:20 Non-Rebreather Intake and Output 11/30/17 12/01/17 19:00 07:00 Intake Total 1225.000 ml 805 ml Balance 1225.000 ml 805 ml Intake Oral 100 ml IV Total 1225.000 ml 705 ml # Voids 2 Laboratory Tests 11/30/17 13:05: Vancomycin Level Trough 10.2 12/01/17 07:30: White Blood Count 9.4, Red Blood Count 3.69L, Hemoglobin 10.6L, Hematocrit 33.9L , Mean Corpuscular Volume 92, Mean Corpuscular Hemoglobin 28.6, Mean Corpuscular Hemoglobin Concent 31.2L, Red Cell Distribution Width 15.2H, Platelet Count 83L, Mean Platelet Volume 9.2, Neutrophils (%) (Auto) , Lymphocytes (%) (Auto) , Monocytes (%) (Auto) , Eosinophils (%) (Auto) , Basophils (%) (Auto) , Neutrophils % (Manual) [Pending], Lymphocytes % (Manual) [Pending], Platelet Estimate [Pending], Platelet Morphology [Pending], Sodium Level [Pending], Potassium Level [Pending], Chloride Level [Pending], Carbon Dioxide Level [Pending], Blood Urea Nitrogen [Pending], Creatinine [Pending], Estimat Glomerular Filtration Rate [Pending], Glucose Level [Pending], Calcium Level [Pending] Height (Feet): 5 Height (Inches): 6.00 Weight (Pounds): 129 Objective General Appearance: on Bipap Neck: normal alignment, supple Cardiovascular: tachycardic Respiratory/Chest: decreased breath sounds Abdomen: tender, distended, intrathecal pump palpated Extremities: non-tender Edema: no edema noted JOSE ARREDONDO December 01, 2017 08:42
[2017-12-01 08:45] LABS: ANION GAP 7 mmol/L (5-15); BLOOD UREA NITROGEN 19 mg/dL (7-18); CALCIUM 9.3 MG/DL (8.5-10.1); CARBON DIOXIDE 29 MMOL/L (21-32); CHLORIDE 110 MMOL/L (98-107); POTASSIUM 3.1 MMOL/L (3.5-5.1); SODIUM 146 MMOL/L (136-145)
--- NOTE | 2017-12-01 09:15 | Progress Note ---
DATE: 11/30/2017 NOTE: POOR AUDIO HISTORY OF PRESENT ILLNESS: This is a 66-year-old female patient with intractable abdominal pains, diffuse high levels of anxiety. That is why, her attending has requested daily psychiatric consultation of anxiety has worsened secondary to stress of her mental illness. Cognition has declined below baseline. MENTAL STATUS EXAMINATION: This is a 66-year-old female. Appearance disheveled. Attitude, irritable and agitated. Affect guarded and restricted. Intellect poor. Mood depressed, anxious. Motor activity, psychomotor agitation. Attention span is poor. Orientation x2. Speech is pressured. Thought process, disorganized and illogical. Thought content, auditory hallucinations, and paranoid delusions. Insight and judgement is poor. DIAGNOSIS: 1. Major depression with psychotic features, rule out dementia. 2. Generalized . PLAN: Continue with Neurontin and continue her on psychotropic medications . Chart reviewed and discussed with staff. Mena Goncalves M.D. DR: XIN JOB#: [id number] CC:
--- NOTE | 2017-12-01 11:04 | GI Progress Note ---
Assessment/Plan Problems: (1) Crohn's disease ICD Codes: K50.90 - Crohn's disease SNOMED: 07178979 Qualifiers: Qualified Codes: K50.919 - Crohn's disease, unspecified, with unspecified complications (2) Opioid dependence ICD Codes: F11.20 - Opioid dependence SNOMED: 30651405 (3) SBO (small bowel obstruction) ICD Codes: K56.609 - Unspecified intestinal obstruction, unspecified as to partial versus complete obstruction SNOMED: 366209759 (4) Chronic abdominal pain Status: stable Status Narrative Discussed with Dr. Gallegos. Assessment/Plan CT AP reviewed >> Evidence of disseminated malignancy, with large left pulmonary hilar mass or adenopathy, extensive left hilar and mediastinal adenopathy, multiple pleural- based masses on the left, multiple masses within the liver, and retroperitoneal lymphadenopathy. Recommendations supportive care now DNI/DNR fu oncology recs >>Do not recommend any further diagnosis/tissue given poor state, is not a chemotherapy candidate pain mgmt poor prognosis The patient was seen and examined at bedside and all new and available data was reviewed in the patients chart. I agree with the above findings, impression and plan. (Patient seen earlier today. Signature stamp does not reflect patient encounter time.). - Skyler Gallegos MD Subjective Subjective generalized pain Objective Last 24 Hour Vital Signs Date Time Temp Pulse Resp B/P (MAP) Pulse Ox O2 Delivery O2 Flow Rate FiO2 12/01/17 08:14 100 20 100 Non-Rebreather 15.0 100 12/01/17 08:11 Non-Rebreather 15.0 100 12/01/17 08:10 100 Non-Rebreather 15.0 100 12/01/17 08:00 97.4 89 11 96/90 96 Non-Rebreather 15.0 97.4 12/01/17 04:53 Non-Rebreather 15.0 12/01/17 04:00 97.4 98 22 102/58 94 97.4 12/01/17 02:44 Non-Rebreather 15.0 100 12/01/17 02:44 97 12 89 Non-Rebreather 15.0 100 12/01/17 00:00 97.7 100 19 103/68 94 97.7 11/30/17 23:09 99 14 88 Non-Rebreather 15.0 100 11/30/17 23:09 Non-Rebreather 15.0 100 11/30/17 20:00 97.3 101 22 102/61 94 97.3 11/30/17 19:49 98.9 11/30/17 19:09 102 22 90 Non-Rebreather 15.0 100 11/30/17 19:09 Non-Rebreather 15.0 100 11/30/17 19:00 Non-Rebreather 15.0 100 11/30/17 19:00 90 Non-Rebreather 15.0 100 11/30/17 18:37 98.9 11/30/17 16:18 97 18 94 Non-Rebreather 15.0 100 11/30/17 16:08 94 18 91 Non-Rebreather 15.0 100 11/30/17 16:00 98.9 101 21 96/62 98 Non-Rebreather 15.0 100 98.9 11/30/17 16:00 96 11/30/17 12:00 98.6 96 20 98/56 99 Non-Rebreather 15.0 100 98.6 11/30/17 11:53 96 11/30/17 11:20 Non-Rebreather 11/30/17 11:20 Non-Rebreather Intake and Output 11/30/17 12/01/17 19:00 07:00 Intake Total 1225.000 ml 805 ml Balance 1225.000 ml 805 ml Intake Oral 100 ml IV Total 1225.000 ml 705 ml # Voids 2 Laboratory Tests Test 11/30/17 13:05 12/01/17 07:30 Vancomycin Level Trough 10.2 ug/mL (5.0-12.0) White Blood Count 9.4 K/UL (4.8-10.8) Red Blood Count 3.69 M/UL (4.20-5.40) L Hemoglobin 10.6 G/DL (12.0-16.0) L Hematocrit 33.9 % (37.0-47.0) L Mean Corpuscular Volume 92 FL (80-99) Mean Corpuscular Hemoglobin 28.6 PG (27.0-31.0) Mean Corpuscular Hemoglobin Concent 31.2 G/DL (32.0-36.0) L Red Cell Distribution Width 15.2 % (11.6-14.8) H Platelet Count 83 K/UL (150-450) L Mean Platelet Volume 9.2 FL (6.5-10.1) Neutrophils (%) (Auto) % (45.0-75.0) Lymphocytes (%) (Auto) % (20.0-45.0) Monocytes (%) (Auto) % (1.0-10.0) Eosinophils (%) (Auto) % (0.0-3.0) Basophils (%) (Auto) % (0.0-2.0) Differential Total Cells Counted 100 Neutrophils % (Manual) 68 % (45-75) Lymphocytes % (Manual) 21 % (20-45) Monocytes % (Manual) 2 % (1-10) Eosinophils % (Manual) 4 % (0-3) H Basophils % (Manual) 0 % (0-2) Band Neutrophils 5 % (0-8) Platelet Estimate Decreased L Platelet Morphology Normal Hypochromasia 1+ Anisocytosis 1+ Stomatocytes Occasional Sodium Level 146 MMOL/L (136-145) H Potassium Level 3.1 MMOL/L (3.5-5.1) L Chloride Level 110 MMOL/L (98-107) H Carbon Dioxide Level 29 MMOL/L (21-32) Anion Gap 7 mmol/L (5-15) Blood Urea Nitrogen 19 mg/dL (7-18) H Creatinine 1.0 MG/DL (0.55-1.30) Estimat Glomerular Filtration Rate > 60 mL/min (>60) Glucose Level 114 MG/DL (74-106) H Calcium Level 9.3 MG/DL (8.5-10.1) Height (Feet): 5 Height (Inches): 6.00 Weight (Pounds): 129 General Appearance: WD/WN, no apparent distress, alert, thin Cardiovascular: normal rate Respiratory/Chest: normal breath sounds, no respiratory distress Abdominal Exam: normal bowel sounds, non tender, soft Extremities: non-tender Tara Scott N.P. December 01, 2017 11:04
[2017-12-01 12:00] VITALS: BP 137/77
--- NOTE | 2017-12-01 12:43 | Pulmonology Progress Note ---
Assessment/Plan Problems: (1) Metastatic cancer (2) Malignant pleural effusion (3) Chronic pain disorder (4) IBD (inflammatory bowel disease) (5) Interstitial lung disease (6) COPD (chronic obstructive pulmonary disease) Assessment/Plan on 100% NRM respiratory treatment titrate fio3 to sat of 92 family doesn't want NG tube feeding continue current symptomatic treatment pain management private room dc planning preferably with hospice. in process there is no point of continuing IV fluids Subjective ROS Limited/Unobtainable: No Constitutional: Reports: no symptoms HEENT: Repors: no symptoms Respiratory: Reports: no symptoms Allergies: Coded Allergies: No Known Allergies (Verified , 05/21/06) Objective Last 24 Hour Vital Signs Date Time Temp Pulse Resp B/P (MAP) Pulse Ox O2 Delivery O2 Flow Rate FiO2 12/01/17 12:00 98.5 99 18 137/77 96 Non-Rebreather 15.0 98.5 12/01/17 08:14 100 20 100 Non-Rebreather 15.0 100 12/01/17 08:11 Non-Rebreather 15.0 100 12/01/17 08:10 100 Non-Rebreather 15.0 100 12/01/17 08:00 97.4 89 11 96/90 96 Non-Rebreather 15.0 97.4 12/01/17 04:53 Non-Rebreather 15.0 12/01/17 04:00 97.4 98 22 102/58 94 97.4 12/01/17 02:44 Non-Rebreather 15.0 100 12/01/17 02:44 97 12 89 Non-Rebreather 15.0 100 12/01/17 00:00 97.7 100 19 103/68 94 97.7 11/30/17 23:09 99 14 88 Non-Rebreather 15.0 100 11/30/17 23:09 Non-Rebreather 15.0 100 11/30/17 20:00 97.3 101 22 102/61 94 97.3 11/30/17 19:49 98.9 11/30/17 19:09 102 22 90 Non-Rebreather 15.0 100 11/30/17 19:09 Non-Rebreather 15.0 100 11/30/17 19:00 Non-Rebreather 15.0 100 11/30/17 19:00 90 Non-Rebreather 15.0 100 11/30/17 18:37 98.9 11/30/17 16:18 97 18 94 Non-Rebreather 15.0 100 11/30/17 16:08 94 18 91 Non-Rebreather 15.0 100 11/30/17 16:00 98.9 101 21 96/62 98 Non-Rebreather 15.0 100 98.9 11/30/17 16:00 96 Intake and Output 11/30/17 12/01/17 19:00 07:00 Intake Total 1225.000 ml 805 ml Balance 1225.000 ml 805 ml Intake Oral 100 ml IV Total 1225.000 ml 705 ml # Voids 2 Objective General Appearance: cachectic HEENT: normocephalic, atraumatic Respiratory/Chest: chest wall non-tender, lungs clear Cardiovascular: normal peripheral pulses, normal rate, regular rhythm Abdomen: normal bowel sounds, soft, non tender, no organomegaly, non distended Extremities: no cyanosis, no clubbing, no edema Skin: no rash, no lesions 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 Microbiology Date/Time Source Procedure Growth Status 11/29/17 12:10 Blood Blood Culture - Preliminary NO GROWTH AFTER 24 HOURS Resulted 11/29/17 12:00 Blood Blood Culture - Preliminary NO GROWTH AFTER 24 HOURS Resulted Laboratory Tests 11/30/17 13:05: Vancomycin Level Trough 10.2 12/01/17 07:30: White Blood Count 9.4, Red Blood Count 3.69L, Hemoglobin 10.6L, Hematocrit 33.9L , Mean Corpuscular Volume 92, Mean Corpuscular Hemoglobin 28.6, Mean Corpuscular Hemoglobin Concent 31.2L, Red Cell Distribution Width 15.2H, Platelet Count 83L, Mean Platelet Volume 9.2, Neutrophils (%) (Auto) , Lymphocytes (%) (Auto) , Monocytes (%) (Auto) , Eosinophils (%) (Auto) , Basophils (%) (Auto) , Differential Total Cells Counted 100, Neutrophils % ( Manual) 68, Lymphocytes % (Manual) 21, Monocytes % (Manual) 2, Eosinophils % ( Manual) 4H, Basophils % (Manual) 0, Band Neutrophils 5, Platelet Estimate DecreasedL, Platelet Morphology Normal, Hypochromasia 1+, Anisocytosis 1+, Stomatocytes Occasional, Sodium Level 146H, Potassium Level 3.1L, Chloride Level 110H, Carbon Dioxide Level 29, Anion Gap 7, Blood Urea Nitrogen 19H, Creatinine 1.0, Estimat Glomerular Filtration Rate > 60, Glucose Level 114H, Calcium Level 9.3 Current Medications Medications (Trade) Dose Ordered Sig/Vaibhav Route PRN Reason Start Time Stop Time Status Last Admin Dose Admin Acetaminophen (Tylenol) 650 mg Q4H PRN ORAL fever (temp>100.5F) 11/30/17 18:30 12/11/17 18:29 Acetaminophen (Tylenol) 650 mg Q4H PRN RECTAL Mild Pain (Pain Scale 1-3) 11/30/17 18:30 12/27/17 18:29 Acetaminophen/ Hydrocodone Bitart ([place] 10/325) 1 tab Q4H PRN ORAL Moderate Pain (Pain Scale 4-6) 11/30/17 19:00 12/03/17 18:59 11/30/17 18:37 Chlorhexidine Gluconate (Leah-Hex 2%) 1 applic DAILY@2000 TOPIC 11/30/17 20:00 12/28/17 19:59 11/30/17 21:58 Dextrose 1,000 ml @ 100 mls/hr Q10H IV 11/30/17 18:30 12/27/17 09:59 12/01/17 05:02 Dextrose (Dextrose 50%) 50 ml STAT PRN IV Hypoglycemia BS<60mg/dL 11/30/17 18:30 12/30/17 18:29 Ertapenem 1 gm/ Sodium Chloride 55 ml @ 110 mls/hr Q24H IVPB 11/30/17 21:00 12/04/17 20:59 11/30/17 22:00 Levalbuterol HCl (Xopenex) 0.625 mg Q4HRT HHN 11/30/17 19:00 12/05/17 18:59 12/01/17 08:14 Levetiracetam (Keppra) 1,000 mg EVERY 8 HOURS ORAL 11/30/17 22:00 12/26/17 08:59 12/01/17 06:32 Levothyroxine Sodium (Synthroid) 75 mcg ACBREAKFAST ORAL 12/01/17 06:30 12/12/17 06:29 12/01/17 06:31 Nitroglycerin (Ntg) 0.4 mg Q5M X 3 DOSES PRN SL Prn Chest Pain 11/30/17 18:30 12/11/17 10:59 Ondansetron HCl (Zofran) 4 mg Q6H PRN IVP Nausea & Vomiting 11/30/17 18:30 12/11/17 18:29 Vancomycin HCl (Vanco rx to dose) 1 ea DAILY PRN MISC Per rx protocol 11/30/17 18:30 12/30/17 18:29 Vancomycin HCl 1 gm/Dextrose 275 ml @ 183.708 mls/hr Q24H IVPB 12/01/17 17:00 12/06/17 16:59 Rob Wagner MD December 01, 2017 12:43
--- NOTE | 2017-12-01 14:38 | General Progress Note ---
Assessment/Plan Problem List: (1) Crohn's disease ICD Codes: K50.90 - Crohn's disease SNOMED: 80579379 Qualifiers: Qualified Codes: K50.919 - Crohn's disease, unspecified, with unspecified complications (2) Opioid dependence ICD Codes: F11.20 - Opioid dependence SNOMED: 76372096 (3) Intractable abdominal pain ICD Codes: R10.9 - Unspecified abdominal pain SNOMED: 97750554, 123216070 (4) COPD (chronic obstructive pulmonary disease) ICD Codes: J44.9 - Chronic obstructive pulmonary disease SNOMED: 66218569 (5) Shortness of breath (6) SOB (shortness of breath) ICD Codes: R06.02 - Shortness of breath SNOMED: 705502472 (7) UTI (urinary tract infection) ICD Codes: N39.0 - Urinary tract infection, site not specified SNOMED: 58427462 (8) Lung mass ICD Codes: R91.8 - Other nonspecific abnormal finding of lung field SNOMED: 548222075 (9) Tachycardia ICD Codes: R00.0 - Tachycardia, unspecified SNOMED: 0367610 Status: unchanged Assessment/Plan ot pt diet pain control sx eval dc w hospice Subjective Constitutional: Reports: weakness Respiratory: Reports: shortness of breath Allergies: Coded Allergies: No Known Allergies (Verified , 05/21/06) All Systems: reviewed and negative except above Subjective 02 mask sleepy Objective Last 24 Hour Vital Signs Date Time Temp Pulse Resp B/P (MAP) Pulse Ox O2 Delivery O2 Flow Rate FiO2 12/01/17 12:00 98.5 99 18 137/77 96 Non-Rebreather 15.0 98.5 12/01/17 08:24 101 22 100 Non-Rebreather 15.0 100 12/01/17 08:14 100 20 100 Non-Rebreather 15.0 100 12/01/17 08:11 Non-Rebreather 15.0 100 12/01/17 08:10 100 Non-Rebreather 15.0 100 12/01/17 08:00 97.4 89 11 96/90 96 Non-Rebreather 15.0 97.4 12/01/17 04:53 Non-Rebreather 15.0 12/01/17 04:00 97.4 98 22 102/58 94 97.4 12/01/17 02:44 Non-Rebreather 15.0 100 12/01/17 02:44 97 12 89 Non-Rebreather 15.0 100 12/01/17 00:00 97.7 100 19 103/68 94 97.7 11/30/17 23:09 99 14 88 Non-Rebreather 15.0 100 11/30/17 23:09 Non-Rebreather 15.0 100 11/30/17 20:00 97.3 101 22 102/61 94 97.3 11/30/17 19:49 98.9 11/30/17 19:09 102 22 90 Non-Rebreather 15.0 100 11/30/17 19:09 Non-Rebreather 15.0 100 11/30/17 19:00 Non-Rebreather 15.0 100 11/30/17 19:00 90 Non-Rebreather 15.0 100 11/30/17 18:37 98.9 11/30/17 16:18 97 18 94 Non-Rebreather 15.0 100 11/30/17 16:08 94 18 91 Non-Rebreather 15.0 100 11/30/17 16:00 98.9 101 21 96/62 98 Non-Rebreather 15.0 100 98.9 11/30/17 16:00 96 Intake and Output 11/30/17 12/01/17 19:00 07:00 Intake Total 1225.000 ml 805 ml Balance 1225.000 ml 805 ml Intake Oral 100 ml IV Total 1225.000 ml 705 ml # Voids 2 Laboratory Tests 12/01/17 07:30: White Blood Count 9.4, Red Blood Count 3.69L, Hemoglobin 10.6L, Hematocrit 33.9L , Mean Corpuscular Volume 92, Mean Corpuscular Hemoglobin 28.6, Mean Corpuscular Hemoglobin Concent 31.2L, Red Cell Distribution Width 15.2H, Platelet Count 83L, Mean Platelet Volume 9.2, Neutrophils (%) (Auto) , Lymphocytes (%) (Auto) , Monocytes (%) (Auto) , Eosinophils (%) (Auto) , Basophils (%) (Auto) , Differential Total Cells Counted 100, Neutrophils % ( Manual) 68, Lymphocytes % (Manual) 21, Monocytes % (Manual) 2, Eosinophils % ( Manual) 4H, Basophils % (Manual) 0, Band Neutrophils 5, Platelet Estimate DecreasedL, Platelet Morphology Normal, Hypochromasia 1+, Anisocytosis 1+, Stomatocytes Occasional, Sodium Level 146H, Potassium Level 3.1L, Chloride Level 110H, Carbon Dioxide Level 29, Anion Gap 7, Blood Urea Nitrogen 19H, Creatinine 1.0, Estimat Glomerular Filtration Rate > 60, Glucose Level 114H, Calcium Level 9.3 Height (Feet): 5 Height (Inches): 6.00 Weight (Pounds): 129 General Appearance: lethargic EENT: normal ENT inspection Neck: normal alignment Cardiovascular: normal peripheral pulses, normal rate, regular rhythm Respiratory/Chest: decreased breath sounds Abdomen: normal bowel sounds Extremities: normal inspection Edema: no edema noted Arm (L), no edema noted Arm (R), no edema noted Leg (L), no edema noted Leg (R), no edema noted Pedal (L), no edema noted Pedal (R), no edema noted Generalized Neurologic: motor weakness Skin: normal pigmentation, warm/dry BAYRON BENEDICT December 01, 2017 14:38
--- NOTE | 2017-12-01 15:52 | Infectious Diseases Prog Note ---
Assessment/Plan Assessment/Plan ASSESSMENT: The patient is a 66-year-old female with, Sepsis, improving- 2ry to ESBL UTI- ?bacteremia (real vs contaminant)- r/o PICC line infection -u/a wbc 10-15, niet neg, leuk +2; ucx >100K ESBL E.coli -sp cx p -11/26 Bcx 2/ S. epi (MRSE); 11/29 NTD; 11/30 PICC line Bcx p Fever/leukocytosis, resolved Lethargy, on Bipap- improvnig- ?oversedation -CXR 11/25: Parenchymal opacities, primarily interstitial laterally demonstrated throughout the lungs with some interval improvement over the last 24 hours -CXR;Extensive mixed interstitial alveolar airspace disease bilaterally unchanged Probable small bowel obstruction Recent history of polymicrobial gram-negative bacteremia including Stenotrophomonas maltophilia and Enterobacter. History of Aggie esophagitis. History of C. difficile in the past. Air anterior to the liver , ? free intraperitoneal air ( Surg doubt perforation ) Lung and liver masses Ro Malignancy CT: Pleural-based mass at the left lung base / Moderate-sized left pleural effusion, left-sided pleural nodularity and retroperitoneal and paraspinal nodules/masses. Left inferior hilar mass lesion partially visualized. New low- attenuation liver lesion ( concerning for malignancy/metastatic disease ) Pl effusion SP ultrasound-guided thoracentesis, 960 cc ( m/l 2/2 mets, no evid of Empyema ) -exudate fluid: WBC 613 (n 6), pH 8, lguc 98, prot 4.6 (serum 8.4); cx stain: GRAM STAIN Final GRAM STAIN RESULT FEW WHITE BLOOD CELLS NO ORGANISMS SEEN cx negative prelime cytology report: malignant non-small cells in the pleural cavity. Crohn's disease. History of bowel obstruction x2 with lysis of adhesions in 2004. COPD. History of chronic pain syndrome, on morphine pump. CVA in 2004. Seizure disorder. PLAN: Continue ertapenem abx d#12/30-10 for ESBL E.coli UTI -Continue IV Vancomycin #5 for Staph epi bacteremia pending Bcx from PICc line -continue antibiotics if consistent with goals of care -11/29 SP Meropenem #3 -/6 SP Zosyn #2 -11/17 SP Zosyn #5 Monitor CBC and BMP. follow GI recommendations hem, surg f/u discussions of goals of care ongoing poor px CXR am Subjective Allergies: Coded Allergies: No Known Allergies (Verified , 05/21/06) Subjective afebrile leukocytosis resolved repeat Bcx NTD BCx PICC lien p Objective Vital Signs Last 24 Hour Vital Signs Date Time Temp Pulse Resp B/P (MAP) Pulse Ox O2 Delivery O2 Flow Rate FiO2 12/01/17 12:00 98.5 99 18 137/77 96 Non-Rebreather 15.0 98.5 12/01/17 11:06 Non-Rebreather 12/01/17 11:05 Non-Rebreather 12/01/17 08:24 101 22 100 Non-Rebreather 15.0 100 12/01/17 08:14 100 20 100 Non-Rebreather 15.0 100 12/01/17 08:11 Non-Rebreather 15.0 100 12/01/17 08:10 100 Non-Rebreather 15.0 100 12/01/17 08:00 97.4 89 11 96/90 96 Non-Rebreather 15.0 97.4 12/01/17 04:53 Non-Rebreather 15.0 12/01/17 04:00 97.4 98 22 102/58 94 97.4 12/01/17 02:44 Non-Rebreather 15.0 100 12/01/17 02:44 97 12 89 Non-Rebreather 15.0 100 12/01/17 00:00 97.7 100 19 103/68 94 97.7 11/30/17 23:09 99 14 88 Non-Rebreather 15.0 100 11/30/17 23:09 Non-Rebreather 15.0 100 11/30/17 20:00 97.3 101 22 102/61 94 97.3 11/30/17 19:49 98.9 11/30/17 19:09 102 22 90 Non-Rebreather 15.0 100 11/30/17 19:09 Non-Rebreather 15.0 100 11/30/17 19:00 Non-Rebreather 15.0 100 11/30/17 19:00 90 Non-Rebreather 15.0 100 11/30/17 18:37 98.9 11/30/17 16:18 97 18 94 Non-Rebreather 15.0 100 11/30/17 16:08 94 18 91 Non-Rebreather 15.0 100 11/30/17 16:00 98.9 101 21 96/62 98 Non-Rebreather 15.0 100 98.9 11/30/17 16:00 96 Height (Feet): 5 Height (Inches): 6.00 Weight (Pounds): 129 Objective HEENT: anicteric Respiratory/Chest: normal breath sounds Cardiovascular: regular rhythm Abdomen: tender Microbiology Date/Time Source Procedure Growth Status 11/29/17 12:10 Blood Blood Culture - Preliminary NO GROWTH AFTER 24 HOURS Resulted 11/29/17 12:00 Blood Blood Culture - Preliminary NO GROWTH AFTER 24 HOURS Resulted Laboratory Tests Test 12/01/17 07:30 White Blood Count 9.4 K/UL (4.8-10.8) Red Blood Count 3.69 M/UL (4.20-5.40) L Hemoglobin 10.6 G/DL (12.0-16.0) L Hematocrit 33.9 % (37.0-47.0) L Mean Corpuscular Volume 92 FL (80-99) Mean Corpuscular Hemoglobin 28.6 PG (27.0-31.0) Mean Corpuscular Hemoglobin Concent 31.2 G/DL (32.0-36.0) L Red Cell Distribution Width 15.2 % (11.6-14.8) H Platelet Count 83 K/UL (150-450) L Mean Platelet Volume 9.2 FL (6.5-10.1) Neutrophils (%) (Auto) % (45.0-75.0) Lymphocytes (%) (Auto) % (20.0-45.0) Monocytes (%) (Auto) % (1.0-10.0) Eosinophils (%) (Auto) % (0.0-3.0) Basophils (%) (Auto) % (0.0-2.0) Differential Total Cells Counted 100 Neutrophils % (Manual) 68 % (45-75) Lymphocytes % (Manual) 21 % (20-45) Monocytes % (Manual) 2 % (1-10) Eosinophils % (Manual) 4 % (0-3) H Basophils % (Manual) 0 % (0-2) Band Neutrophils 5 % (0-8) Platelet Estimate Decreased L Platelet Morphology Normal Hypochromasia 1+ Anisocytosis 1+ Stomatocytes Occasional Sodium Level 146 MMOL/L (136-145) H Potassium Level 3.1 MMOL/L (3.5-5.1) L Chloride Level 110 MMOL/L (98-107) H Carbon Dioxide Level 29 MMOL/L (21-32) Anion Gap 7 mmol/L (5-15) Blood Urea Nitrogen 19 mg/dL (7-18) H Creatinine 1.0 MG/DL (0.55-1.30) Estimat Glomerular Filtration Rate > 60 mL/min (>60) Glucose Level 114 MG/DL (74-106) H Calcium Level 9.3 MG/DL (8.5-10.1) Current Medications Medications (Trade) Dose Ordered Sig/Vaibhav Route PRN Reason Start Time Stop Time Status Last Admin Dose Admin Acetaminophen (Tylenol) 650 mg Q4H PRN ORAL fever (temp>100.5F) 11/30/17 18:30 12/11/17 18:29 Acetaminophen (Tylenol) 650 mg Q4H PRN RECTAL Mild Pain (Pain Scale 1-3) 11/30/17 18:30 12/27/17 18:29 Acetaminophen/ Hydrocodone Bitart ([place] 10/325) 1 tab Q4H PRN ORAL Moderate Pain (Pain Scale 4-6) 11/30/17 19:00 12/03/17 18:59 11/30/17 18:37 Chlorhexidine Gluconate (Leah-Hex 2%) 1 applic DAILY@2000 TOPIC 11/30/17 20:00 12/28/17 19:59 11/30/17 21:58 Dextrose 1,000 ml @ 100 mls/hr Q10H IV 11/30/17 18:30 12/27/17 09:59 12/01/17 14:57 Dextrose (Dextrose 50%) 50 ml STAT PRN IV Hypoglycemia BS<60mg/dL 11/30/17 18:30 12/30/17 18:29 Ertapenem 1 gm/ Sodium Chloride 55 ml @ 110 mls/hr Q24H IVPB 11/30/17 21:00 12/04/17 20:59 11/30/17 22:00 Levalbuterol HCl (Xopenex) 0.625 mg Q4HRT HHN 11/30/17 19:00 12/05/17 18:59 12/01/17 08:14 Levetiracetam (Keppra) 1,000 mg EVERY 8 HOURS ORAL 11/30/17 22:00 12/26/17 08:59 12/01/17 13:51 Levothyroxine Sodium (Synthroid) 75 mcg ACBREAKFAST ORAL 12/01/17 06:30 12/12/17 06:29 12/01/17 06:31 Nitroglycerin (Ntg) 0.4 mg Q5M X 3 DOSES PRN SL Prn Chest Pain 11/30/17 18:30 12/11/17 10:59 Ondansetron HCl (Zofran) 4 mg Q6H PRN IVP Nausea & Vomiting 11/30/17 18:30 12/11/17 18:29 Vancomycin HCl (Vanco rx to dose) 1 ea DAILY PRN MISC Per rx protocol 11/30/17 18:30 12/30/17 18:29 Vancomycin HCl 1 gm/Dextrose 275 ml @ 183.708 mls/hr Q24H IVPB 12/01/17 17:00 12/06/17 16:59 Kathleen Lafleur M.D. December 01, 2017 15:52
[2017-12-01 16:01] VITALS: BP 123/66
--- NOTE | 2017-12-01 16:15 | Progress Note ---
DATE: 12/01/2017 HISTORY OF PRESENT ILLNESS: This is a 66-year-old female with severe abdominal pain. She has high levels of anxiety, mood lability, worsened by stress of her medical illness. Her attending has requested daily psychiatric consultation. MENTAL STATUS EXAMINATION: This is a 66-year-old female. Appearance is disheveled. Attitude irritable and agitated. Affect guarded and restricted. Intellect poor. Mood depressed and anxious. Motor activity, psychomotor agitation. Attention span is poor. Orientation x2. Speech is pressured. Thought process, disorganized and illogical. Thought content, auditory hallucinations and paranoid delusions. Insight and judgment are poor. DIAGNOSIS: Generalized anxiety disorder. PLAN: Continue to treat her with Neurontin. anxiety and depression throughout hospital course. An 18 to 20 minutes of supportive psychotherapy provided. Mood is anxious . Chart reviewed and discussed with staff. Seen and assessed in her room. Mena Goncalves M.D. DR: XIN JOB#: [id number] CC:
[2017-12-01] MEDS ORDERED: Vancomycin 1 GM in D5W 275 ML IVPB SCH (17:00)
[2017-12-01] MEDS ORDERED: XOPENEX0.63 MG/3 HHN (17:59)
[2017-12-01] MEDS ORDERED: KEPPRA LIQ100 MG/1 M ORAL (18:00)
[2017-12-01] MEDS ORDERED: SYNTHROID75 MCG ORAL (18:01)
[2017-12-01] MEDS ORDERED: NORCO 10-325 T1 EACH ORAL (18:02)
[2017-12-01] MEDS ORDERED: ZOFRAN ODT8 MG ORAL (18:08)
[2017-12-01] MEDS ORDERED: TYLENOL EXTRA500 MG ORAL (18:08)
[2017-12-01] MEDS ORDERED: ACETAMINOPHEN325 M1 ORAL (18:08)
[2017-12-01] MEDS ORDERED: Tubing IV Secondary IV ONE ×2 (18:50→19:29)
[2017-12-01] MEDS ORDERED: NS 500ML ONE ×2 (18:50→19:29)
--- NOTE | 2017-12-02 00:28 | General Progress Note ---
Assessment/Plan Assessment/Plan IMPRESSION/RECS: #. Stage IV malignancy, potentially lung cancer given pattern of spread, proven malignancy on pleural fluid. --> Has a left lower lobe lung mass. Left inferior hilar mass. Left pleural base lung mass. Left pleural effusion. --> Retroperitoneal lymphadenopathy. Multiple low-attenuation liver lesions. --> Discussed with son, RN, Primary MD, given poor performance status recommend palliative/hospice care --> Do not recommend any further diagnosis/tissue given poor state, is not a chemotherapy candidate #. Anemia due to underlying malignancy - continue to closely monitor --> hgb goal is >7. Transfuse if needed. --> Hemoglobin stable at this time. #. Leukocytosis. --> Monitor and trend cbc. #. Crohn disease. #. Opioid dependence. #. Chronic obstructive pulmonary disease. #. History of smoking. #. Emphysema. #. Perianal abscess. #. Intractable abdominal pain. #. Status post morphine pump placement. #. Status post exploratory laparotomy. #. Pneumoperitoneum. #. Tachycardia. DC planning. Subjective Date patient seen: December 01, 2017 Constitutional: Denies: no symptoms, chills, diaphoresis, fever, malaise, weakness, other HEENT: Denies: no symptoms, eye pain, blurred vision, tearing, double vision, ear pain, ear discharge, nose pain, nose congestion, throat pain, throat swelling, mouth pain, mouth swelling, other Cardiovascular: Denies: no symptoms, chest pain, edema, irregular heart rate, lightheadedness, palpitations, syncope, other Respiratory: Denies: no symptoms, cough, orthopnea, shortness of breath, SOB with excertion, SOB at rest, sputum, stridor, wheezing, other Gastrointestinal/Abdominal: Denies: no symptoms, abdomen distended, abdominal pain, black stools, tarry stools, blood in stool, constipated, diarrhea, difficulty swallowing, nausea, poor appetite, poor fluid intake, rectal bleeding , vomiting, other Genitourinary: Denies: no symptoms, burning, discharge, frequency, flank pain, hematuria, incontinence, pain, urgency, other Neurologic/Psychiatric: Denies: no symptoms, anxiety, depressed, emotional problems, headache, numbness, paresthesia, pre-existing deficit, seizure, tingling, tremors, weakness, other Hematologic/Lymphatic: Reports: anemia Allergies: Coded Allergies: No Known Allergies (Verified , 05/21/06) Subjective Lethargic. Pain control. Pending discharge. Tachycardia. Objective Last 24 Hour Vital Signs Date Time Temp Pulse Resp B/P (MAP) Pulse Ox O2 Delivery O2 Flow Rate FiO2 12/01/17 19:38 Non-Rebreather 12/01/17 19:37 94 Non-Rebreather 15.0 100 12/01/17 19:37 Non-Rebreather 15.0 100 12/01/17 19:36 94 Non-Rebreather 15.0 100 12/01/17 16:01 96 14 100 Non-Rebreather 15.0 100 12/01/17 16:01 97.3 100 18 123/66 96 15.0 97.3 12/01/17 15:51 113 14 93 Non-Rebreather 15.0 100 12/01/17 12:00 98.5 99 18 137/77 96 Non-Rebreather 15.0 98.5 12/01/17 11:06 Non-Rebreather 12/01/17 11:05 Non-Rebreather 12/01/17 08:24 101 22 100 Non-Rebreather 15.0 100 12/01/17 08:14 100 20 100 Non-Rebreather 15.0 100 12/01/17 08:11 Non-Rebreather 15.0 100 12/01/17 08:10 100 Non-Rebreather 15.0 100 12/01/17 08:00 97.4 89 11 96/90 96 Non-Rebreather 15.0 97.4 12/01/17 04:53 Non-Rebreather 15.0 12/01/17 04:00 97.4 98 22 102/58 94 97.4 12/01/17 02:44 Non-Rebreather 15.0 100 12/01/17 02:44 97 12 89 Non-Rebreather 15.0 100 Intake and Output 12/01/17 12/02/17 19:00 07:00 Intake Total 1295.000 ml Balance 1295.000 ml IV Total 1295.000 ml # Voids 1 2 Laboratory Tests 12/01/17 07:30: White Blood Count 9.4, Red Blood Count 3.69L, Hemoglobin 10.6L, Hematocrit 33.9L , Mean Corpuscular Volume 92, Mean Corpuscular Hemoglobin 28.6, Mean Corpuscular Hemoglobin Concent 31.2L, Red Cell Distribution Width 15.2H, Platelet Count 83L, Mean Platelet Volume 9.2, Neutrophils (%) (Auto) , Lymphocytes (%) (Auto) , Monocytes (%) (Auto) , Eosinophils (%) (Auto) , Basophils (%) (Auto) , Differential Total Cells Counted 100, Neutrophils % ( Manual) 68, Lymphocytes % (Manual) 21, Monocytes % (Manual) 2, Eosinophils % ( Manual) 4H, Basophils % (Manual) 0, Band Neutrophils 5, Platelet Estimate DecreasedL, Platelet Morphology Normal, Hypochromasia 1+, Anisocytosis 1+, Stomatocytes Occasional, Sodium Level 146H, Potassium Level 3.1L, Chloride Level 110H, Carbon Dioxide Level 29, Anion Gap 7, Blood Urea Nitrogen 19H, Creatinine 1.0, Estimat Glomerular Filtration Rate > 60, Glucose Level 114H, Calcium Level 9.3 Height (Feet): 5 Height (Inches): 6.00 Weight (Pounds): 129 General Appearance: cachetic Cardiovascular: tachycardia Respiratory/Chest: decreased breath sounds Abdomen: non tender, soft Connor Bains MD December 02, 2017 00:28
--- NOTE | 2017-12-03 16:25 | Discharge Summary ---
Discharge Summary Discharge Summary Discharge Summary DATE OF ADMISSION: 11/11/2017 DATE OF DISCHARGE: 12/11/2017 CONSULTANTS: Dr. Connor Abel BRIEF HOSPITAL COURSE: Patient is a 66-year-old female, who lives at home, presented to ER complaining of increased abdominal pain for 2 days. Pain was left sided, sharp, nonradiating, 9 out of 10. She has history of Crohn's disease and colitis. She presented to ED today prior, with similar complaints, she was discharged home on the medications. She continued to have symptoms and went back to ED. She has history of Crohn's disease and colitis, asthma, COPD, SC, CVA/TIA. On evaluation, blood work showed mild leukocytosis, WBC 11.3. Lipase 56. She was admitted for evaluation of abdominal pain. She has chronic pain and has morphine pump implanted. She had multiple surgeries in the past for bowel obstruction. She eventually agreed to abdominal CT. CT findings showed left pleural effusion, left lower lung mass, large mediastinal and periaortic lymph nodes, new liver lesion stented area around the liver. Surgical evaluation was done. Examination not consistent with perforation and no significant free fluid noted on CT or area of perforation. Abdominal ultrasound with contracted gallbladder, no apparent stones, no pericholecystic fluid. She was having low- grade fever. She was started on IV Zosyn. Urine culture with ESBL. Blood culture with Staphylococcus epidermides. She was given meropenem and was transitioned to ertapenem. She was given IV vancomycin for bacteremia. Repeat blood culture did not isolate any growth. She was seen by pain management. She was continued on morphine pump. She had an episode of lethargy/oversedation. Dosage was adjusted. She was worked up regarding lung mass. She underwent left-sided thoracenteses on 11/12/2017 yielding 960 mL of fluid. Pathology report highly suspicious for malignancy. Patient has a lot of anxiety and was diagnosed to have major depressive disorder. She was given modified regimen consisting of Cymbalta, Wellbutrin, Topamax, trazodone, Neurontin, Ambien, and prn Ativan. Dr. Bains was consulted to evaluate lung mass. She underwent CT of the lung abdomen and pelvis and showed evidence of disseminated malignancy, with large left pulmonary hilar mass, extensive left hilar and mediastinal adenopathy , multiple mass within the liver and retroperitoneal lymphadenopathy. Patient has stage IV malignancy, potentially lung cancer given pattern of spread and proven malignancy on pleural fluid. Given poor performance status, not a candidate for chemotherapy. She was recommended palliative/hospice care. She had episodes of tachycardia however, no evidence of atrial fibrillation or SVT. She had an echocardiogram that showed EF of 65%, severe pulmonary hypertension. Acute renal function worsening. She had elevated sodium. IV fluids were changed. Patient continued to deteriorate, she had recurrent pleural effusion. She required higher demand of O2. She was placed on 100% nonrebreather. Family refused NG placement. CODE STATUS was changed to DO NOT RESUSCITATE/DO NOT INTUBATE. She was eventually transferred to SNF with hospice. FINAL DIAGNOSES: Stage IV malignancy, potentially lung cancer Sepsis secondary to ESBL UTI with possible bacteremia Anemia due to malignancy Crohn's disease Opioid dependence COPD Generalized anxiety disorder Old CVA Seizure disorder Malignant pleural effusion status post thoracenteses Chronic pain disorder Interstitial lung disease Acute renal failure Acute hypoxemic respiratory failure requiring BiPAP Malnutrition Hypernatremia Thrombocytopenia Severe pulmonary hypertension Sinus tachycardia due to hypoxemia and malignancy Herniated nucleus pulposus on the lumbar area Lumbar spondylosis Hospice care/comfort care DISPOSITION: Patient was transferred to [facility] with [facility]. DISCHARGE MEDICATIONS: Refer to Discharge Medication List. I have been assigned to dictate discharge summary on this account, and I was not involved in the patient's management. Carolina Damon NP December 03, 2017 16:25
== END 2017-12-01 19:30 | DRG 180 ==
LOC: EMR 14:19 → 4E 15:25 → EDBEDREQ 15:51 → 2E 11-21 09:24 → 2W 11-22 17:45 → ICU 11-22 23:35 → 2W 11-25 12:04 → 4E 11-30 18:30
PROC: 0W9B3ZX Drainage of Left Pleural Cavity, Percutaneous Approach, Diagnostic (ICD-10-PCS; principal; 2017-11-12)
PROC: 05HP33Z Insertion of Infusion Device into Right External Jugular Vein, Percutaneous Approach (ICD-10-PCS; 2017-11-13)
PROC: 02HV33Z Insertion of Infusion Device into Superior Vena Cava, Percutaneous Approach (ICD-10-PCS; 2017-11-17)
PROC: 5A09457 Assistance with Respiratory Ventilation, 24-96 Consecutive Hours, Continuous Positive Airway Pressure (ICD-10-PCS; 2017-11-22)
DX: C78.00 Secondary malignant neoplasm of unspecified lung (principal); J96.01 Acute respiratory failure with hypoxia; A41.9 Sepsis, unspecified organism; K50.90 Crohn's disease, unspecified, without complications; K56.609 Unspecified intestinal obstruction, unspecified as to partial versus complete obstruction; J91.0 Malignant pleural effusion; N39.0 Urinary tract infection, site not specified; F11.20 Opioid dependence, uncomplicated; K86.1 Other chronic pancreatitis; J84.9 Interstitial pulmonary disease, unspecified; F31.81 Bipolar II disorder; E87.0 Hyperosmolality and hypernatremia; N17.9 Acute kidney failure, unspecified; E46 Unspecified protein-calorie malnutrition; C78.7 Secondary malignant neoplasm of liver and intrahepatic bile duct; K61.0 Anal abscess; Z51.5 Encounter for palliative care; G89.3 Neoplasm related pain (acute) (chronic); R10.9 Unspecified abdominal pain; J44.9 Chronic obstructive pulmonary disease, unspecified; M47.26 Other spondylosis with radiculopathy, lumbar region; R91.8 Other nonspecific abnormal finding of lung field; I50.9 Heart failure, unspecified; F17.200 Nicotine dependence, unspecified, uncomplicated; F41.1 Generalized anxiety disorder; R59.1 Generalized enlarged lymph nodes; G89.4 Chronic pain syndrome; R00.0 Tachycardia, unspecified; R62.7 Adult failure to thrive; M51.16 Intervertebral disc disorders with radiculopathy, lumbar region; G40.909 Epilepsy, unspecified, not intractable, without status epilepticus; D63.0 Anemia in neoplastic disease; Z66 Do not resuscitate; Z86.73 Personal history of transient ischemic attack (TIA), and cerebral infarction without residual deficits; D69.6 Thrombocytopenia, unspecified; B96.20 Unspecified Escherichia coli [E. coli] as the cause of diseases classified elsewhere; Z16.12 Extended spectrum beta lactamase (ESBL) resistance; I25.2 Old myocardial infarction; I27.20 Pulmonary hypertension, unspecified
CPT/HCPCS: 36415; 36569; 36600; 71045; 71260; 74018; 74177; 76700; 76937; 76942; 80048; 80053; 80202; 80299; 81003; 82105; 82140; 82150; 82378; 82803; 82962; 83605; 83690; 83735; 83880; 83986; 84100; 84439; 84443; 84484; 85007; 85025; 85610; 85730; 86300; 86304; 87040; 87070; 87086; 87181; 87205; 88104; 89051; 93005; 93306; 93970; 94640; 94660; 94664; 94760; 97803; 99285; J2405; J7620; J8499